=== PATIENT | male | born 1955 | race Caucasian/White ===

== ENCOUNTER 2020-01-17 17:22 | Emergency (ER) | payer MEDICARE, OTHER, SELFPAY ==
[2020-01-17 17:25] VITALS: BP 163/80; PULSE 68; RESP 18; TEMP 36.6; O2SAT 98; BMI 31.0
--- NOTE | 2020-01-17 17:40 | XR_ITS ---
PROCEDURE: XR KNEE LT 3V CLINICAL INDICATION: PAIN COMPARISON: No exams were available for comparison FINDINGS: No fracture or dislocation. No lytic or blastic change. There is normal mineralization. There are mild tricompartmental osteoarthritic changes with chondrocalcinosis and generalized vascular calcification. Surgical clips are present at the medial thigh. Calcification noted along the dorsal aspect of the distal femur at the femoral condyle region Other findings:None. IMPRESSION: Osteoarthritis with chondrocalcinosis Dictated by: Evaristo Nam MD 01/18/2020 07:16 Evaristo Nam MD in [place] 01/18/2020 07:16
--- NOTE | 2020-01-17 17:41 | XR_ITS ---
PROCEDURE: XR HIP LT 2-3V W/PELVIS CLINICAL INDICATION: PAIN Pain COMPARISON: No exams were available for comparison FINDINGS: There is a total right hip prosthesis present in the left hip hemiarthroplasty both appear to be in good alignment. Surgical clips are present in the left inguinal region. Vascular calcifications are present on the. There are vas deferens calcifications and nonspecific soft tissue calcifications bilaterally. IMPRESSION: No acute findings. Dictated by: Evaristo Nam MD 01/18/2020 07:20 Evaristo Nam MD in [place] 01/18/2020 07:20
--- NOTE | 2020-01-17 18:22 | PC.NURSE ---
Patient returning from radiology
--- NOTE | 2020-01-17 18:44 | HMH.EDGENADL ---
ED Disposition Clinical Impression: Left knee sprain Qualifiers: Encounter type: initial encounter Involved ligament of knee: lateral collateral ligament Qualified Code(s): S83.422A - Sprain of lateral collateral ligament of left knee, initial encounter Strain of left hip Qualifiers: Encounter type: initial encounter Qualified Code(s): S76.012A - Strain of muscle, fascia and tendon of left hip, initial encounter Disposition: Home, Self-Care Condition on Discharge: Good Instructions: DI for Knee Sprain, How to Use a Knee Immobilizer Additional Instructions: Use your cane and the knee immobilizer that was provided. Use Tylenol 3 that you have at home for pain. Icing, and elevating your knee will also help with pain and swelling. You may see Dr. Torres, orthopedics, for follow-up of your knee injury. Alternatively, you can also see your orthopedist in [place] for that injury. You should see orthopedist in [place] for eventual revision of your left hip replacement. Referrals: PCP,No [Primary Care Provider] - Evangelina Carter MD [Physician] - - Critical Care Critical Care Time: No Attestation: On 01/17/20, the high probability of a clinically significant, sudden or life threatening deterioration of the following system(s) required my full and direct attention, intervention and personal management. The time I documented below is in addition to time spent performing reported procedures but includes the following listed in this critical care notation. Medical Decision Making - Herman Inquiry Pt receiving controlled substance: No Vital Signs: 01/17/20 17:25 Temperature 98 F Temperature Source Oral Pulse Rate [Radial] 68 Respiratory Rate 18 Blood Pressure [Right Arm] 163/80 H Blood Pressure Mean [Right Arm] 107 Blood Pressure Position [Right Arm] Sitting 02 Sat by Pulse Oximetry 98 Oxygen Delivery Method Room Air Orders (Tests/Meds): ORDERS Category Date Time Status Hip XR left minimum 2 views [XR hip LT 2-3V w/pelvis] Exams 01/17/20 17:41 Taken Stat Knee XR left 3 views [XR knee LT 3V] Stat Exams 01/17/20 17:40 Taken - Radiology Data #1 Image(s): Hip, Knee Image Reviewed: Yes I reviewed the patient's radiology image Knee x-ray : Calcification of the menisci left knee with calcification of the soft tissues, no evident fracture, dislocation, or effusion. Hip x-ray: Bilateral hip prostheses. No evident fracture or dislocation or loosening. - Physician Consults Physician Consulted: Dr. Carter Time: 19:00 Reason -: Orthopedic Eval/Care Comment/Response: She reviewed his x-rays. No acute process. She says she can see him in follow-up for his knee injury, but she is not an expert in hip prosthesis revisions and therefore he should follow-up with his orthopedic doctor in [place] for his revision. Medical Decision Narrative: Patient drove himself to the emergency department. Declines pain medication which would require that he get a ride home. He cannot take NSAIDs because of kidney problems. He has Tylenol 3 at home to take. He says he will use that. He will be placed in a knee immobilizer for comfort. General Adult HPI - General Chief complaint: PAIN Stated complaint: pain left knee,and both hips Time Seen by Provider: 01/17/20 18:44 Mode of Arrival: Ambulatory Limitations: No Limitations Description of Symptoms (Recalled from ER Triage Doc. by RN): to ed per pvt car with c/o lt knee and lt hip pain pt states he was outside going to move some dirt, stepped on the shovel and felt a pop lt knee. c/o increasing pain. 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 States that he was using a shovel today and when he used his left leg to push on a shovel he felt a pop in his left knee. He now has pain bilaterally in the knee and posteriorly but more lateral than anywhere
[2020-01-17 19:20] VITALS: BP 152/78; PULSE 71; RESP 18; TEMP 36.6; O2SAT 99
== END 2020-01-17 19:22 | disposition home or self-care (01) ==
PROVIDERS: Emergency Provider Emergency Medicine
DX: S83.422A Sprain of lateral collateral ligament of left knee, initial encounter (principal); S76.012A Strain of muscle, fascia and tendon of left hip, initial encounter; X50.0XXA Overexertion from strenuous movement or load, initial encounter; Y92.89 Other specified places as the place of occurrence of the external cause; E10.9 Type 1 diabetes mellitus without complications; Z79.899 Other long term (current) drug therapy; Z96.641 Presence of right artificial hip joint; Z96.642 Presence of left artificial hip joint; Z96.651 Presence of right artificial knee joint
CPT/HCPCS: 29505; 73502; 73562; 99282

== ENCOUNTER → 2020-02-04 08:44 | Outpatient (CLI) | payer MEDICARE, OTHER, SELFPAY ==
--- NOTE | 2020-02-04 09:03 | XR_ITS ---
PROCEDURE: XR KNEE LT 4V CLINICAL INDICATION: Left knee pain COMPARISON: No exams were available for comparison FINDINGS: No fracture or dislocation. No lytic or blastic change. There is normal mineralization. Narrowing medially and mild spurring the tibial spines. There is calcification of the medial and lateral meniscus. The patella is intact and I see no definite effusion. There are surgical clips mid medial thigh. IMPRESSION: Mild degenerative changes along with chondrocalcinosis of both the medial and lateral meniscus. Dictated by: Dr. Fito Alvarez MD 02/04/2020 09:34 Dr. Fito Alvarez MD in [place] 02/04/2020 09:34
== END ==
PROVIDERS: PCP Family Medicine; Visit Provider Orthopaedic Surgery
DX: M25.562 Pain in left knee (principal)
CPT/HCPCS: 73564

== ENCOUNTER 2020-03-09 13:21 | Emergency (ER) | payer MEDICARE, OTHER, SELFPAY ==
[2020-03-09 13:23] VITALS: BP 144/66; PULSE 84; RESP 16; TEMP 36.8; O2SAT 98; BMI 31.0
--- NOTE | 2020-03-09 13:47 | XR_ITS ---
PROCEDURE: XR FOOT RT MIN 3V xR ANKLE RT MIN 3V The Referring Doctor: De Hinkle Patient Age:64Y CLINICAL INDICATION: fall patient fell last night with right foot and ankle pain Diabetic. Insulin pump COMPARISON: CR XR ANKLE RT MIN 3V from 03/09/2020 TECHNIQUE: 3 View AP, Oblique, Lateral of both right ankle and right foot-nonweightbearing FINDINGS: ...Right ankle 3 view.: No fracture or dislocation at the ankle. There is prominent soft tissue swelling.. About both the entire ankle overlying both medial and lateral malleolus as well as edema is seen in the subcutaneous tissues of the lower most calf but the edema extends from the ankle throughout the foot. Diffuse small vessel calcifications at ankle compatible with diabetes. . The ankle mortise is well-maintained joint space maintained with talar dome intact. .. Right foot 3 view.: Severe hallux valgus deformity at right foot with prominent valgus tilt of great toe great toe as well as prominent lateral subluxation and offset of the proximal phalanx great toe versus the head of 1st metatarsal. Tiny subchondral cyst possible minor erosive focus medial base proximal phalanx. Mild deformity shaft 2nd metatarsal from old healed fracture the. Diminishing valgus tilt of the 2nd 3rd and 4th the the toes the also noted.. The Narrowing sclerotic changes and subchondral cystic changes are seen at the tarsal-metatarsal joints particularly 2nd, but also 3rd, and 4th. May reflect developing neuropathic foot changes. Pes planus noted on lateral view. A. the the the the the talar navicular articulation satisfactory. IMPRESSION: No acute fracture or dislocation at the right foot nor ankle . Severe hallux valgus deformity right foot., old healed fracture 2nd metatarsal. . Suspect developing neuropathic joint changes noting prominent arthritic changes developing at second tarsal-metatarsal joint Less pronounced arthritic changes at 3rd and 4th tarsal-metatarsal joint . Small vessel calcification reflecting diabetes as well Prominent diffuse soft tissue swelling about ankle and extending throughout foot, along with sq edematous changes throughout the lower leg-. Dictated by: Pradip Hatfield MD 03/12/2020 12:57 Pradip Hatfield MD in [place] 03/12/2020 12:57
--- NOTE | 2020-03-09 13:47 | XR_ITS ---
PROCEDURE: XR SHOULDER RT MIN 2V Referring Doctor: De Hinkle Patient Age:64Y CLINICAL INDICATION: fall Patient fell last night right shoulder pain patient COMPARISON: No exams were available for comparison FINDINGS: Right shoulder-3 three view: AP internal external rotation with Y-view but no acute fracture or dislocation. The glenohumeral joint intact with mild degenerative changes. Minor hypertrophic lipping about margin of acetabulum and to less degree humeral head noted. The right AC joint is intact. Scapula intact. Humeral head and neck intact. Bones well mineralized but apices lungs are clear. Right clavicle unremarkable. But the mild sclerotic changes at the junction of greater tuberosity and superior humeral head may reflect the history of impingement. With this note slight modest subacromial space thus cannot not exclude rotator cuff abnormalities on plain film IMPRESSION: No acute findings, at right shoulder.. No fracture or dislocation Dictated by: Pradip Hatfield MD 03/09/2020 14:58 Pradip Hatfield MD in [place] 03/09/2020 14:58
[2020-03-09 13:55] VITALS: BP 139/76; PULSE 87; RESP 18; O2SAT 96
--- NOTE | 2020-03-09 14:18 | HMH.EDGENADL ---
ED Disposition Clinical Impression: Right ankle sprain Qualifiers: Encounter type: initial encounter Involved ligament of ankle: unspecified ligament Qualified Code(s): S93.401A - Sprain of unspecified ligament of right ankle, initial encounter Right shoulder strain Qualifiers: Encounter type: initial encounter Qualified Code(s): S46.911A - Strain of unspecified muscle, fascia and tendon at shoulder and upper arm level, right arm, initial encounter Disposition: Home, Self-Care Condition on Discharge: Good Instructions: DI for Ankle Sprain, DI for Shoulder Sprain Additional Instructions: Wear orthopedic boot. Use walker as needed. Ice and elevation of right ankle for swelling and pain. Callao as needed for pain. Do not take Tylenol 3 while taking Callao. Follow-up with Dr. Carter in the office this week, call tomorrow to make appointment. Additional instructions for CONTROLLED SUBSTANCES: You have been prescribed a medication that is a controlled substance. Controlled substances include pain medications known as opiates and sedative nerve medications known as benzodiazepines. Tramadol, fioricet, and gabapentin are also controlled substances. Some common opiates include: Codeine (such as Tylenol #3) Hydrocodone (Vicodin, Lortab, Lorcet, Callao) Oxycodone (Percocet, Percodan, Oxycodone, Oxy IR) Some common benzodiazepines include: Diazepam (Valium) Lorazepam (Ativan) Alprazolam (Xanax) Clonazepam (Klonopin) Oxazepam (Serax) All of these controlled substances are highly addictive and frequently abused. Misuse can and frequently does lead to addiction as well as overdose and . Medication should be stored in a locked cabinet or other secure storage unit. Do not store the medication in a motor vehicle. Short term supplies, 3 days or less, are prescribed because of the highly addictive nature of the medication. Any of the controlled substance medication NOT taken should be disposed of properly and NOT SAVED. The recommended method of disposing of unused medications is: Place the medicines in a sealable plastic bag. If the medicine is a solid, crush it or add water to dissolve it. Add something undesirable (cat litter, coffee grounds, etc.) Dispose of sealed bag in household trash Do not flush or pour unused medicines down a sink or drain. Controlled substances should not be shared, given away or sold. Because of the addictive nature and frequent abuse, these medications are sometimes stolen. These medications should be kept in a safe place where they cannot be stolen. Do not keep them in your car or purse. Lost or stolen prescriptions for controlled substances WILL NOT BE REFILLED in this emergency department, regardless of whether a police report was filed. Prescriptions: Hydrocod/Acet 5/325 mg [Callao 5/325mg tablet] 1 tab PO Q6HP PRN #10 tab PRN Reason: Pain Transmission Status: Sent to [facility] #[id number] Referrals: Yehuda Barger MD [Primary Care Provider] - - Critical Care Critical Care Time: No Attestation: On 03/09/20, the high probability of a clinically significant, sudden or life threatening deterioration of the following system(s) required my full and direct attention, intervention and personal management. The time I documented below is in addition to time spent performing reported procedures but includes the following listed in this critical care notation. Medical Decision Making - Herman Inquiry Pt receiving controlled substance: Yes Herman was queried for this patient: Yes Reference #:: [id number] Risks and benefits of using a controlled substance: were discussed with pt by me Comment: 6 rxs. last rx gabapentin Vital Signs: 03/09/20 13:23 03/09/20 13:55 03/09/20 14:41 Temperature 98.2 F 98 F Temperature Source Oral Oral Pulse Rate 84 Pulse Rate [Right] 84 87 Respiratory Rate 16 18 16 Blood Pressure 111/65 Blood Pressure [Right Arm] 144/6
[2020-03-09 14:41] VITALS: BP 111/65; PULSE 84; RESP 16; TEMP 36.6; O2SAT 98
== END 2020-03-09 14:50 | disposition home or self-care (01) ==
PROVIDERS: Emergency Provider Emergency Medicine; PCP Family Medicine
DX: S93.401A Sprain of unspecified ligament of right ankle, initial encounter (principal); S46.911A Strain of unspecified muscle, fascia and tendon at shoulder and upper arm level, right arm, initial encounter; W01.0XXA Fall on same level from slipping, tripping and stumbling without subsequent striking against object, initial encounter; Y92.018 Other place in single-family (private) house as the place of occurrence of the external cause; J44.9 Chronic obstructive pulmonary disease, unspecified; I25.10 Atherosclerotic heart disease of native coronary artery without angina pectoris; E10.9 Type 1 diabetes mellitus without complications; I10 Essential (primary) hypertension; Z91.048 Other nonmedicinal substance allergy status; Z96.641 Presence of right artificial hip joint; Z96.642 Presence of left artificial hip joint
CPT/HCPCS: 29515; 73030; 73610; 73630; 99283

== ENCOUNTER 2020-03-14 09:47 | Emergency (ER) | payer MEDICARE, OTHER, SELFPAY ==
[2020-03-14 10:05] VITALS: BP 130/80; PULSE 101; RESP 99; TEMP 36.4; O2SAT 99; BMI 30.8
--- NOTE | 2020-03-14 10:21 | CA_ITS ---
APPROVED REPORT Right Lower Extremity Venous Study for DVT. Spot Remover: BERTHA PaulsonT Indications Lower Extremity Pain: Right Lower Extremity Edema: Right SWELLING,Pt fell last Sat bruising RLE Risk Factors Trauma Medications Pt on Plavix Vein Imaging CFV (R): compressive, spontaneous, phasic, augmentation FEM (R): compressive, spontaneous, phasic, augmentation POP (R): compressive, spontaneous, phasic, augmentation PTV (R): Compressible GSV (R): Compressible Peroneals (R):Compressible GAS (R): Compressible Findings Study suggests no evidence of DVT of the right lower extremity. Study suggests no evidence of SVT of the right lower extremity. Conclusion Study suggests no evidence of DVT of the right lower extremity. Study suggests no evidence of SVT of the right lower extremity. Critical Notification Physician Notified Date: 03/14/2020 Time: 10:59 Physician Name: Taye Wisdom Electronically signed by : Evaristo Nam MD 03/14/2020 16:42:27
--- NOTE | 2020-03-14 10:22 | HMH.EDUTC ---
[facility] [place]ression: Lower leg pain Qualifiers: Laterality: right Qualified Code(s): M79.661 - Pain in right lower leg Cellulitis Qualifiers: Site of cellulitis: extremity Site of cellulitis of extremity: lower extremity Laterality: right Qualified Code(s): L03.115 - Cellulitis of right lower limb Disposition: Home, Self-Care Condition on Discharge: Good Instructions: How To Perform RICE (Rest, Ice, Compress, Elevate), How to Use a Walking Boot Additional Instructions: *weight bearing as tolerated *RICE, Rest the extremity, Ice 15-20 minutes 3-4 times daily, Compress- wear the justin wrap as discussed as much as possible to help reduce swelling and pain, Elevate the extremity when at rest *Justin wrap and wear walking boot it is for support and help control swelling, use it except in the shower. Be sure that is not to tight but not to loose either *Elevate when resting *Ibuprofen every 6-8 hours as needed for pain an inflammation. If need something more can take Tylenol in between doses of Ibuprofen to help Immediately follow up with your family doctor for new or worsening of symptoms, or no noticeable improvement over the next 3-5 days Keep appointment with Dr Andersen Follow up with your Family Doctor as needed Return if needed Straight to ER if any life threatening sympotms Prescriptions: cephALEXin [cephALEXin 500mg capsule*] 500 mg PO QID 7 Days #28 cap Transmission Status: Received by [facility] #[id number] Referrals: Yehuda Barger MD [Primary Care Provider] - As needed Harriett Andersen DPM [Staff Physician] - Time of Disposition: 11:00 Medical Decision Making - Herman Inquiry Pt receiving controlled substance: No Herman was queried for this patient: No Vital Signs: 03/14/20 10:05 03/14/20 10:59 Temperature 97.5 F L 97.9 F Temperature Source Tympanic Oral Pulse Rate 79 Pulse Rate [Right] 101 H Respiratory Rate 99 H 14 Blood Pressure 131/77 Blood Pressure [Right Arm] 130/80 Blood Pressure Mean [Right Arm] 96 Blood Pressure Source Automatic Cuff Blood Pressure Source [Right Arm] Automatic Cuff Blood Pressure Position Sitting Blood Pressure Position [Right Arm] Sitting 02 Sat by Pulse Oximetry 99 Oxygen Delivery Method Room Air Room Air - US Data US Images: Lower Extremity ED US Reviewed: Yes: I have reviewed the patient's US results Preliminary Findings: Normal/NAD Findings Narrative: Discussed with Vascular Negative Venous Doppler Medical Decision Narrative: Patient states that he has taken Keflex in the past without complications or reactions [facility] [place] - General Stated complaint: Right leg & ankle pain Time Seen by Provider: 03/14/20 10:22 Mode of Arrival: Ambulatory Source of Information: Patient Limitations: No Limitations Description of Symptoms (Recalled from Triage Doc. by RN): pt fell on ice last tuesday. his right leg is sore, swollen and bruised. right ankle is sore, red and warm to the touch. HEENT Symptoms (Recalled from RN notes): No Resp Symptoms (Recalled from RN notes): No Skin Symptoms (Recalled from RN notes): No MS Symptoms (Recalled from RN notes): Yes (bruising and swelling to right leg below the need down to toes.) Functional Status (Recalled from RN notes): na - History of Present Illness Provider Complaint: Patient states that he fell on Tuesday and was seen in the ED State that he was placed in a boot but has not been able to wear it States that he noticed he was having some worsening of swelling in his right lower leg and noticed it was looking red and warm to the touch States that family was worried that he may have DVT - Related Data Home Medications Medication Instructions Recorded Confirmed Aspirin [Aspirin 325mg Tab] 325 mg PO DAILY 04/26/19 04/26/19 Clopidogrel Bisulfate [Plavix 75mg 75 mg PO DAILY 04/26/19 04/26/19 Tab] Colchicine 0.6 mg PO DAILY 04/26/19 04/26/19 Duloxetine HCl [Drizalma Sprinkle] 30 mg PO DAILY
[2020-03-14 10:59] VITALS: BP 131/77; PULSE 79; RESP 14; TEMP 36.6
--- NOTE | 2020-03-14 20:41 | PC.NURSE ---
Voicemail left for patient that Rx for antibiotics was called into [facility]
== END 2020-03-14 11:02 | disposition home or self-care (01) ==
PROVIDERS: Emergency Provider Nurse Practitioner; PCP Family Medicine
DX: M79.661 Pain in right lower leg (principal); L03.115 Cellulitis of right lower limb; Z91.048 Other nonmedicinal substance allergy status; J44.9 Chronic obstructive pulmonary disease, unspecified; I25.10 Atherosclerotic heart disease of native coronary artery without angina pectoris; E10.9 Type 1 diabetes mellitus without complications; I10 Essential (primary) hypertension; Z96.641 Presence of right artificial hip joint; Z96.642 Presence of left artificial hip joint
CPT/HCPCS: G0463; 93971; 99202

== ENCOUNTER → 2020-03-21 09:59 | Outpatient (CLI) | payer MEDICARE, OTHER, SELFPAY ==
--- NOTE | 2020-03-21 10:04 | XR_ITS ---
PROCEDURE: XR SHOULDER RT MIN 2V CLINICAL INDICATION: Rt shoulder pain COMPARISON: CR XR SHOULDER RT MIN 2V from 03/09/2020 FINDINGS: . There is narrowing and mild sclerosis of the AC joint. There is a slightly lateral downsloping acromion process but there is no significant subacromial stenosis. There likely is a small subchondral cyst near the greater tuberosity. There are no soft tissue calcifications. IMPRESSION: Mild degenerate change of the AC joint Dictated by: Dr. Fito Alvarez MD 03/21/2020 10:58 Dr. Fito Alvarez MD in [place] 03/21/2020 10:58
== END ==
PROVIDERS: PCP Family Medicine; Visit Provider Orthopaedic Surgery
DX: M25.511 Pain in right shoulder (principal)
CPT/HCPCS: 73030

== ENCOUNTER → 2020-04-15 12:23 | Outpatient (CLI) | payer MEDICARE, OTHER, SELFPAY | PROVIDERS: PCP Family Medicine; Visit Provider Podiatrist | DX: M25.571 Pain in right ankle and joints of right foot (principal) ==

== ENCOUNTER 2020-05-16 08:30 | Outpatient (RCR) | payer MEDICARE, OTHER, SELFPAY ==
--- NOTE | 2020-04-22 10:35 | HMH.PTOPEV ---
PT Outpatient Evaluation Rehab PT Outpatient Evaluation Start: 04/22/20 09:41 Freq: Status: Active Protocol: Document 04/22/20 10:15 [facility] (Rec: 04/22/20 10:35 PHOCHERYL [id number]) Electronically Signed By Rowdy Chris, PT 04/22/20 10:15 Outpatient Therapy Subjective History Subjective History Pt is 64 yowm who present with c/o pain in the R ankle x ~ 6 wks after slipping on ice at home. He reports initial eversion with slip, then he fell over with inversion on the ankle as well. He reports pain and swellin alexis med and lateral ankle, worse with prolonged standing. He also reports hx of multiple ankle sprains on the R previously. He had X-ray performed which was negative for fx. He has PMH of COPD, CAD, DM-I, HL, HTN, severe OA. Chief Complaint Pain,Stiff,Swelling Symptom Type Ache,Sharp Symptoms Relieved By Rest/Positioning Symptoms Aggravated By Standing,Walking Prior Functional Limitations None Current Functional Limitations Standing,Recreation Activity, Walking,Stairs Symptom Description Intermittent,Activity Dependent Level of pain today (0-10) 2 Pain scale - at its worst (0-10) 7 Ankle/Foot Eval Gait Observation General Gait Pattern Observation Antalgic Gait Palpation Tenderness right Ankle/Foot Palpation Findings Tenderness ATF TTP positive PTF TTP negative CF TTP positive Deltoid ligament TTP positive ROM Ankle/Foot Dorsiflexion w/Knee Extended 0-5 Active Range Motion (degrees) Ankle/Foot Plantar Flexion Active Range 0-33 of Motion (degrees) Ankle/Foot Eversion Active Range of 0-10 Motion (degrees) Ankle/Foot Inversion Active Range of 0-8 Motion (degrees) MMT Ankle Dorsiflexion Strength Grade 4 Good Ankle Plantarflexion Strength Grade 4 Good Foot Eversion Strength Grade 4 Good Foot Inversion Strength Grade 4 Good Special Tests Ankle Anterior Drawer Test Negative Left,Negative Right Talar Tilt Test Negative Left,Negative Right Outpatient Therapy Assessment Impairments Problems/Impairmments Palpation Tenderness,Impaired Range of Motion,Impaired Strength,Impaired Endu
== END 2020-08-20 14:46 | disposition home or self-care (01) ==
LOC: PT 08:30
PROVIDERS: PCP Family Medicine; Visit Provider Podiatrist
DX: S93.401A Sprain of unspecified ligament of right ankle, initial encounter (principal); S93.491A Sprain of other ligament of right ankle, initial encounter
CPT/HCPCS: 97014; 97016; 97035; 97110; 97112; 97163; 97530; 97760; G0283

== ENCOUNTER → 2020-05-23 10:08 | Outpatient (CLI) | payer MEDICARE, OTHER, SELFPAY ==
--- NOTE | 2020-05-23 10:13 | XR_ITS ---
PROCEDURE: XR LUMBAR SPINE 2-3V CLINICAL INDICATION: low back pain COMPARISON: No exams were available for comparison FINDINGS: Minimal lumbar curvature convex left. Degenerative disc disease is present at L1-L2 L3-L4 and L4-5. There is 8 mm anterolisthesis of L4 on L5. Facet sclerotic changes are present at L4-5 and L5-S1 and L3-L4.. No acute fracture or dislocation. Incidental note made of diffuse calcification of the aorto iliac vessels. There is a total right hip prosthesis in the left hip hemiarthroplasty. There is a moderate amount of retained colonic feces. Other findings:None. IMPRESSION: Degenerative changes, no acute finding. Dictated by: Evaristo Nam MD 05/23/2020 10:35 Evaristo Nam MD in [place] 05/23/2020 10:35
== END ==
PROVIDERS: PCP Family Medicine; Visit Provider Orthopaedic Surgery
DX: M54.5 Low back pain (principal)
CPT/HCPCS: 72100

== ENCOUNTER 2020-06-21 14:42 | Emergency (ER) | payer MEDICARE, OTHER, SELFPAY ==
--- NOTE | 2020-06-21 14:48 | XR_ITS ---
PROCEDURE INFORMATION: Exam: XR Right Knee Exam date and time: 06/21/2020 2:48 PM Age: 64 years old Clinical indication: Injury or trauma; Fall; Laceration; Patella or knee; Right; Without foreign body; Prior surgery; Surgery date: 6+ months; Surgery type: Tka TECHNIQUE: Imaging protocol: XR Right knee. Views: 3 views. COMPARISON: CA VENOUS DOPPLER LE RT 03/14/2020 10:36 AM FINDINGS: Bones/joints: Cemented right total knee arthroplasty in place, without evidence of acute complications. No acute fracture or dislocation. Soft tissues: Normal. Vasculature: Atherosclerotic vascular disease. IMPRESSION: No acute fracture or dislocation.
[2020-06-21 14:54] VITALS: BP 115/77; PULSE 74; RESP 14; TEMP 36.6; O2SAT 100; BMI 31.7
--- NOTE | 2020-06-21 15:03 | HMH.EDUTC ---
[facility] [place] Disposition Clinical Impression: Laceration of knee Qualifiers: Encounter type: initial encounter Laterality: right Qualified Code(s): S81.011A - Laceration without foreign body, right knee, initial encounter Disposition: Home, Self-Care Condition on Discharge: Good Instructions: Laceration Repair, DI for Laceration Repair -- Simple Additional Instructions: Suture instructions: You have required stitches today. Please read the following instructions so you know how to care for them: 1. Keep wound area dry for the first 24 hours. 2 May clean gently with mild soap and water, after 48 hours to prevent crusting over suture knots. 3. You may shower if your provider gives permission but do not take a bath until the skin is healed.. 4. Never leave a wet dressing or Band-Aid on your stitches as this allows bacteria to reach the area and may cause infection. Band-aids can cause the wound to sweat and not recommended to wear for long periods of time Watch for signs of infection: Increasing redness, tenderness or warmth around the suture site Unusual swelling around the site Appearance of pus around each suture or any red streaks Fever If you develop any of the above signs or symptoms of infection, Follow up with Family Physician immediately 5. Suture removal in _10-12___days 6. Return to [facility] or follow up with family doctor for removal. This can be done by any medical provider during regular hours on Tuesday through Tuesday, by appointment. Velcro wrist splint to right wrist If you are still having pain on Tuesday in right wrist call orthopedic office and make appointment with Dr Garnica Follow up with your Family Doctor if no pain in wrist for further evaluation and CT scan if needed Return if needed Referrals: Hema Garnica MD [Staff Physician] - (call for appointment on Tuesday if still having pain in right wrist) Yehuda Barger MD [Primary Care Provider] - As needed (Follow up for pain in wrist ) Time of Disposition: 17:10 Medical Decision Making - Herman Inquiry Pt receiving controlled substance: No Herman was queried for this patient: No Vital Signs: 06/21/20 14:54 06/21/20 17:22 Temperature 97.8 F 98 F Temperature Source Tympanic Pulse Rate 79 Pulse Rate [Right] 74 Respiratory Rate 14 18 Blood Pressure 117/78 Blood Pressure [Right Arm] 115/77 Blood Pressure Mean [Right Arm] 89 Blood Pressure Source [Right Arm] Automatic Cuff Blood Pressure Position [Right Arm] Sitting 02 Sat by Pulse Oximetry 100 Oxygen Delivery Method Room Air Room Air - Radiology Data #1 Image(s): Knee Image Reviewed: Yes I have reviewed radiologist's interpretation IMPRESSION: No acute fracture or dislocation. #2 Image(s): Wrist Image Reviewed: Yes I have reviewed radiologist's interpretation IMPRESSION: 1. Abnormal relationship of the trapezium, scaphoid, and 1st metacarpal, with the trapezium appearing located or distal and palmar than normal, possibly trapezium dislocation. Recommend further evaluation with CT. 2. No acute fracture. - Physician Consults Physician Consulted: Dr Garnica Time: 16:38 Reason -: Orthopedic Eval/Care Comment/Response: Spoke with Dr Garnica and he viewed xray and patient has history of arthritits Advised to place patient in velcro wrist splint and call office on Tuesday if still having pain for appointment or follow up with PCP if no pain Medical Decision Narrative: Patient states that he is currently taking augmentin patient advised to continue as prescribed [facility] [place] HPI - General Stated complaint: ao 06/21/20 @ 1400 lac on Rt knee Time Seen by Provider: 06/21/20 15:03 Mode of Arrival: Ambulatory Source of Information: Patient Limitations: No Limitations Description of Symptoms (Recalled from Triage Doc. by RN): pt was mowing and he got off to move a branch. once off the mower he stepped in a hole and fell. possible hitting his R knee on a rock. he has a lac on the R knee.
--- NOTE | 2020-06-21 15:36 | XR_ITS ---
PROCEDURE INFORMATION: Exam: XR Right Wrist Exam date and time: 06/21/2020 3:36 PM Age: 64 years old Clinical indication: Injury or trauma; Fall; Blunt trauma (contusions or hematomas); Wrist; Right TECHNIQUE: Imaging protocol: XR Right wrist. Views: 3 or more views. COMPARISON: No relevant prior studies available. FINDINGS: Bones/joints: Mild degenerative changes of the radiocarpal joint, manifest by joint space narrowing and minimal osteophyte formation. Degenerative changes of the triscaphe joint. Abnormal relationship of the trapezium, scaphoid, and 1st metacarpal, with the trapezium appearing located or distal and palmar than normal, possibly trapezium dislocation. No acute fracture. Soft tissues: Normal. Vasculature: Atherosclerotic vascular disease. IMPRESSION: 1. Abnormal relationship of the trapezium, scaphoid, and 1st metacarpal, with the trapezium appearing located or distal and palmar than normal, possibly trapezium dislocation. Recommend further evaluation with CT. 2. No acute fracture.
[2020-06-21 17:22] VITALS: BP 117/78; PULSE 79; RESP 18; TEMP 36.6; O2SAT 100
== END 2020-06-21 17:22 | disposition home or self-care (01) ==
PROVIDERS: Emergency Provider Nurse Practitioner; PCP Family Medicine
DX: S81.011A Laceration without foreign body, right knee, initial encounter (principal); S63.501A Unspecified sprain of right wrist, initial encounter; W17.2XXA Fall into hole, initial encounter; Y92.017 Garden or yard in single-family (private) house as the place of occurrence of the external cause; Z96.641 Presence of right artificial hip joint; Z96.642 Presence of left artificial hip joint; E10.9 Type 1 diabetes mellitus without complications; J44.9 Chronic obstructive pulmonary disease, unspecified; I25.10 Atherosclerotic heart disease of native coronary artery without angina pectoris; I10 Essential (primary) hypertension; E03.9 Hypothyroidism, unspecified; E78.5 Hyperlipidemia, unspecified
CPT/HCPCS: 12002; 29125; G0463; 73110; 73562; 99202

== ENCOUNTER → 2020-06-23 15:34 | Outpatient (CLI) | payer MEDICARE, OTHER, SELFPAY ==
--- NOTE | 2020-06-23 15:41 | XR_ITS ---
PROCEDURE: XR WRIST LT MIN 3V CLINICAL INDICATION: left wrist pain COMPARISON: CR XR WRIST RT MIN 3V from 06/21/2020 FINDINGS: No fracture or dislocation. No lytic or blastic change. There is normal mineralization. There are mild osteoarthritic changes at the radiocarpal joint. Mild osteoarthritis also at the radial ulnar joint with chondrocalcinosis noted of the triangular fibrocartilage. Small cystic areas present in the trapezium and in the capitate. Metallic clips are present at the distal radius and there is diffuse vascular calcification. Other findings:None. IMPRESSION: Degenerative changes as described. Dictated by: Evaristo Nam MD 06/23/2020 16:45 Evaristo Nam MD in [place] 06/23/2020 16:45
== END ==
PROVIDERS: PCP Family Medicine; Visit Provider Orthopaedic Surgery
DX: M25.532 Pain in left wrist (principal)
CPT/HCPCS: 73110

== ENCOUNTER 2020-06-24 09:00 | Outpatient (RCR) | payer MEDICARE, OTHER, SELFPAY ==
--- NOTE | 2020-05-28 10:37 | HMH.PTOPEV ---
PT Outpatient Evaluation Rehab PT Outpatient Evaluation Start: 05/28/20 10:19 Freq: Status: Active Protocol: Document 05/28/20 10:20 [facility] (Rec: 05/28/20 10:35 PHOCHERYL [id number]) Electronically Signed By Rowdy Chris, PT 05/28/20 10:20 Outpatient Therapy Subjective History Subjective History Pt is 64 yowm who presents with c/o chronic low back pain x ~ 15 yrs, gradually worse over time. He reports havign an MRI many years ago which showed DDD, stenosis, and arthritis. He reports susanne pain that is fairly constant with intermittent sharp pains. No c/o pain or numbness in the legs B. He has hx of DM-I with insulin pump, CAD with CABG x 5v and stents x 3v, CKD , B JACQUE, R TKA. Chief Complaint Pain,Stiff Symptom Type Ache,Sharp Symptoms Relieved By Heat Symptoms Aggravated By Bending/Stooping,Physical Activity Prior Functional Limitations None Current Functional Limitations Driving,Sleeping,Standing, Recreation Activity,Walking, Bending/Stooping Symptom Description Constant but Variable Level of pain today (0-10) 5 Pain scale - at its worst (0-10) 8 Lumbopelvic Eval Posture Lumbar Spine Posture Standing Position Decreased Lordosis Palapation tenderness bilateral lumbar spinal tenderness Yes paraspinal tenderness Yes buttock tenderness Yes Lumbar/Sacral Palpation Findings Tenderness Accessory Movement L-spine Vertebrae Accessory Movements Central P/A Cl[place] that Elicit Symptoms L2 bilateral L3 bilateral L4 bilateral L5 bilateral S1 bilateral Range of Motion Lumbar Spine Active Flexion Range of 0-40 Motion (degrees) Lumbar Spine Active Extension Range of 0-3 Motion (degrees) Left Lumbar Spine Lateral Flexion Active 0-10 Range of Motion (degrees) Right Lumbar Spine Lateral Flexion 0-5 Active Range of Motion (degrees) Manual Muscle Test Bilateral Knee Extension Strength Grade 5 Normal Knee Flexion Strength Grade 5 Normal Hip Flexion Strength Grade 3+ Fair+ Hip Abduction Strength Grade 4 Good Hip Adduction Strength Grade 5 Normal Extensor Hallucis Longus Strength Grade 5 Norm
== END 2020-06-24 09:05 | disposition home or self-care (01) ==
LOC: PT 09:00
PROVIDERS: PCP Family Medicine; Visit Provider Orthopaedic Surgery
DX: M54.5 Low back pain (principal); M51.36 Other intervertebral disc degeneration, lumbar region
CPT/HCPCS: 97010; 97014; 97110; 97163; G0283

== ENCOUNTER 2020-06-24 10:59 | Outpatient (RCR) | payer MEDICARE, OTHER, SELFPAY | END 2020-06-24 11:37 | disposition home or self-care (01) | LOC: OT 10:59 | PROVIDERS: Visit Provider Orthopaedic Surgery | DX: G56.03 Carpal tunnel syndrome, bilateral upper limbs (principal) | CPT/HCPCS: 97763 ==

== ENCOUNTER 2020-07-03 09:00 | Outpatient (RCR) | payer MEDICARE, OTHER, SELFPAY ==
--- NOTE | 2020-05-13 10:13 | HMH.PTOPEV ---
PT Outpatient Evaluation Rehab PT Outpatient Evaluation Start: 05/13/20 08:57 Freq: Status: Active Protocol: Document 05/13/20 10:01 [facility] (Rec: 05/13/20 10:13 [facility] [id number]) Electronically Signed By Rowdy Chris, PT 05/13/20 10:01 Outpatient Therapy Subjective History Subjective History Pt is 64 yowm who presents with c/o pain in the R shld x ~ 3 mos after a groubd level fall at home. He had X-ray performed which shows OA and he had steroid injection which significantly reduced his symptoms. He continues to reports pain in the shld worse with activity, no numbness or tingling. Chief Complaint Pain,Stiff Symptom Type Ache,Sharp Symptoms Relieved By Rest/Positioning Symptoms Aggravated By Physical Activity,Lifting Prior Functional Limitations None Current Functional Limitations Reaching,Lifting Symptom Description Intermittent,Activity Dependent Level of pain today (0-10) 2 Pain scale - at its worst (0-10) 10 Shoulder/Elbow Eval Shoulder Objective Measurements Palpation Tenderness tenderness shoulder exam standard right tenderness over the bicipital tendon right shoulder exam standard tenderness over the SA bursa shoulder right exam standard Shoulder ROM Right Shoulder Abduction Active Range of 0-125 Motion (degrees) Shoulder Abduction Passive Range of 0-155 Motion (degrees) Shoulder Flexion Active Range of Motion 0-132 (degrees) Query Text: Shoulder Flexion Passive Range of Motion 0-155 (degrees) Shoulder External Rotation Active Range 0-67 of Motion (degrees) Shoulder External Rotation Passive Range 0-75 of Motion (degrees) Shoulder Internal Rotation Active Range 0-60 of Motion (degrees) Shoulder Internal Rotation Passive Range 0-64 of Motion (degrees) Shoulder MMT Shoulder Abduction Strength Grade 4 Good Shoulder Flexion Strength Grade 4 Good Shoulder External Rotation Strength 4 Good Grade Shoulder Internal Rotation Strength 4 Good Grade Elbow Objective Measurements Outpatient Therapy Assessment Impairments Problems/Impairmments Palpation Tenderness,Impaired Range of Motion,Impaired Strength,Impaired Endurance, Impaired Lifting,Subjective C/
--- NOTE | 2020-06-13 10:12 | HMH.RHREAS ---
Rehab Reassessment Rehab OP Re-assessment Start: 06/13/20 10:00 Freq: Status: Active Protocol: Document 06/13/20 10:02 [facility]A (Rec: 06/13/20 10:07 [facility]A [id number]) Electronically Signed By Rowdy Chris, PT 06/13/20 10:02 Rehab Re-assessment Subjective Subjective Pt continues to reports pain in the R shld, worse with activity. Objective Objective Notes Palpation tenderness: R ant shld 2/4. MMT R SHLD: grossly 4/5 throughout. ROM R SHLD: Flex= 0-150, ABD= 0-140 Assessment Progress Assessment Slower Than Expected Assessment Notes Pt R shld remains weaker than the L with pain worse anteriorly around LHB proximal origin. He has shown some improvement in AROM of the R shld, but little increase in strength and little decrease in pain with movement. Patient goals met none Goals Not Met ST,2,3,4,5,6 LT,2,3 ,4,5,6 Revised Goals none Plan Plan Continue per initial POC. Frequency of Therapy 2 x/wk Duration of therapy 8 wks Time and Billing Re-Eval Time 15 Re-Eval Billing Units 0 PHYSICIAN CERTIFICATION: I certify the specified therapy services for Obdulio Gold are required, authorized, and reviewed every 30 days.
== END 2020-07-03 09:05 | disposition home or self-care (01) ==
LOC: PT 09:00
PROVIDERS: PCP Family Medicine; Visit Provider Orthopaedic Surgery
DX: M19.011 Primary osteoarthritis, right shoulder (principal)
CPT/HCPCS: 97010; 97014; 97033; 97110; 97163; 97164; G0283

== ENCOUNTER 2020-07-25 09:00 | Outpatient (RCR) | payer MEDICARE, OTHER, SELFPAY | END 2020-07-25 09:05 | disposition home or self-care (01) | LOC: PT 09:00 | PROVIDERS: PCP Family Medicine; Visit Provider Family Medicine | DX: R29.6 Repeated falls (principal) | CPT/HCPCS: 97110; 97112; 97163 ==

== ENCOUNTER → 2020-07-31 12:45 | Outpatient (CLI) | payer MEDICARE, OTHER, SELFPAY ==
--- NOTE | 2020-07-31 12:45 | IR_ITS ---
PROCEDURE: IR ARTHROGRAM SHOULDER RT CLINICAL INDICATION: RT shoulder pain COMPARISON: No exams were available for comparison FINDINGS: Fluoroscopy time: 2 minutes and 1 second Following obtaining informed consent and time-out procedure under aseptic conditions and local anesthesia with 1 percent buffered lidocaine with fluoroscopic guidance, proximally 12 mL of a mixture Isovue, normal saline, and gadolinium was injected into the right shoulder without complications. Contrast was noted to go into the subacromial region consistent with a rotator cuff tear. There are osteoarthritic changes of the glenohumeral joint with a high-riding humeral head. IMPRESSION: The findings are compatible with full-thickness rotator cuff tear associated with osteoarthritic changes of the glenohumeral joint and high-riding humeral head. Please see MRI arthrogram for further discussion.. Dictated by: Evaristo Nam MD 08/04/2020 09:26 Evaristo Nam MD in [place] 08/04/2020 09:26
--- NOTE | 2020-07-31 12:45 | MR_ITS ---
PROCEDURE: MR SHOULDER RT W CON CLINICAL INDICATION: Rt shoulder pain Pt states he slipped on ice a few months ago and tried to catch himself. Limited ROM. COMPARISON: CR,RF IR ARTHROGRAM SHOULDER RT from 07/31/2020 TECHNIQUE: Routine post arthrogram images obtained. FINDINGS: Complete full-thickness tear is present involving the supraspinatus tendon. There is abnormal localization of contrast within the subacromial region. There is thickening of the infraspinatus tendon with increased T1 and T2 signal consistent with tendinopathy/tendinosis and suspected partial tear distally. Increased T2 signal involves the humeral head at the medial aspect of the greater tuberosity consistent with subchondral cystic changes. There is a high-riding humeral head. The bicipital tendon is in place. There is mild acromioclavicular hypertrophy with osteoarthritic changes noted of the glenohumeral joint. On the coronal images there is some irregularity of the glenoid labrum superiorly having a somewhat blunted appearance and minimal irregularity medially. IMPRESSION: 1. Complete tear of the supraspinatus tendon 2. Tendinopathy/tendinosis of the infraspinatus tendon with suspected partial tear distally. 3. Osteoarthritic changes of the acromioclavicular joint and glenohumeral joint with subchondral cystic changes of the humeral head and a high-riding humeral head. 4. There is some minimal fraying of the superior glenoid labrum. Dictated by: Evaristo Nam MD 08/04/2020 09:06 Evaristo Nam MD in [place] 08/04/2020 09:06
--- NOTE | 2020-07-31 12:47 | MR_ITS ---
PROCEDURE: MR LUMBAR SPINE WO CON CLINICAL INDICATION: LUMBAR RADICULOPATHY Low back pain for years. COMPARISON: CT ABDPELW/O CT ABD PELVIS W/O CONTRAST from 02/07/2016 CR XR LUMBAR SPINE 2-3V from 05/23/2020 TECHNIQUE: Standard multiplanar multiecho sequences are performed without contrast. 3-D MIP and myelographic images are also rendered and reviewed FINDINGS: The spinal cord ends at the L1 level. L1-L2: Facet and ligamentum hypertrophic change L2-L3: Facet ligamentum hypertrophy. L3-L4: Degenerative disc disease. There is severe facet and ligamentum hypertrophic change with canal stenosis and bilateral lateral recess and foraminal narrowing. L4-5: Degenerative disc disease with 5 mm anterolisthesis of L4. There is severe facet and ligamentum hypertrophy with severe bilateral lateral recess narrowing left greater than right along with severe canal stenosis. L5-S1: Degenerative disc disease with facet hypertrophic change left greater than right with moderate to severe left-sided foraminal narrowing No extruded herniated disc apparent IMPRESSION: 1. L3-L4: Degenerative disc disease. There is severe facet and ligamentum hypertrophic change with canal stenosis and bilateral lateral recess and foraminal narrowing. 2. L4-5: Degenerative disc disease with 5 mm anterolisthesis of L4. There is severe facet and ligamentum hypertrophy with severe bilateral lateral recess narrowing left greater than right along with severe canal stenosis. 3. L5-S1: Degenerative disc disease with facet hypertrophic change left greater than right with moderate to severe left-sided foraminal narrowing 4. No extruded herniated disc apparent Dictated by: Evaristo Nam MD 08/01/2020 09:59 Evaristo Nam MD in [place] 08/01/2020 09:59
== END ==
PROVIDERS: PCP Family Medicine; Visit Provider Orthopaedic Surgery
DX: S46.911A Strain of unspecified muscle, fascia and tendon at shoulder and upper arm level, right arm, initial encounter (principal); M54.16 Radiculopathy, lumbar region
CPT/HCPCS: 72148; 73040; 73222; 76376

== ENCOUNTER 2020-09-08 18:09 | Emergency (ER) | payer MEDICARE, OTHER, SELFPAY ==
[2020-09-08 19:05] VITALS: BP 129/76; PULSE 89; RESP 21; TEMP 37.3; O2SAT 97; BMI 31.7
--- NOTE | 2020-09-08 19:29 | HMH.EDUTC ---
[facility] [place] Disposition Clinical Impression: Sinusitis Qualifiers: Sinusitis location: unspecified location Chronicity: unspecified Qualified Code(s): J32.9 - Chronic sinusitis, unspecified Disposition: Home, Self-Care Condition on Discharge: Good Instructions: Sinusitis, DI for Sinusitis Additional Instructions: *Monitor Temp, Over the counter Motrin or Tylenol as directed/as needed Tylenol every 4 hours and Motrin every 6 hours (as long as your family doctor has told you that you can take it) for fever or pain. and straight to ER if unable to lower temp less than 101.0 after medication given *Warm salt water gargles may help to soothe the throat *Throat Lozenges *Warm fluids like tea with honey may help to soothe the throat *Sleep elevated *Humidifier/Vaporizer *Flonase 2 sprays in each nostril daily but be aware that it may take 2-3 days before you notice improvement Take antibiotics as prescribed Follow up IMMEDIATELY for new or worsening symptoms or no Noticeable improvement over the next 48-72 hours. 911 for difficulty breathing or swallowing You were tested for today for COVID19 your test result should be back in the next 24-48 hours, you may call to the [facility] to see if your test results are back in the next 48 hours [phone] [facility] hours are 9am-9pm You was given a handout with instructions for Self Quarantine and Self isolation for while you wait on test results and what to do if they are positive If you are positive the Health Dept will be contacting you also Prescriptions: Amoxicillin/Potassium Clav [Augmentin 875-125 Tablet] 1 tab PO Q12H 7 Days #14 tab Transmission Status: Sent to [facility] #[id number] Referrals: Elijah Serra DO [Primary Care Provider] - As needed Time of Disposition: 19:36 Medical Decision Making - Herman Inquiry Pt receiving controlled substance: No Herman was queried for this patient: No Vital Signs: 09/08/20 19:05 09/08/20 19:40 Temperature 99.2 F 99.2 F Temperature Source Oral Pulse Rate 89 Pulse Rate [Right Brachial] 89 Respiratory Rate 21 21 Blood Pressure 129/76 Blood Pressure [Right Arm] 129/76 Blood Pressure Mean [Right Arm] 93 Blood Pressure Source [Right Arm] Automatic Cuff Blood Pressure Position [Right Arm] Sitting 02 Sat by Pulse Oximetry 97 Oxygen Delivery Method Room Air Orders (Tests/Meds): ORDERS Category Date Time Status Covid-19 Nasal PCR ([facility]) Routine Lab 09/08/20 19:20 Received Medical Decision Narrative: Patient states that he has taken augmentin in the past without complications or reactions from his other medications [facility] [place] HPI - General Stated complaint: Possible kidney stone or bladder infection Time Seen by Provider: 09/08/20 19:29 Mode of Arrival: Ambulatory Source of Information: Patient Limitations: No Limitations Description of Symptoms (Recalled from Triage Doc. by RN): PATIENT C/O FEVER, EYE PRESSURE, AND POSSIBLE KIDNEY/BLADDER INFECTION X 2 DAYS HEENT Symptoms (Recalled from RN notes): Yes Resp Symptoms (Recalled from RN notes): No Skin Symptoms (Recalled from RN notes): No MS Symptoms (Recalled from RN notes): No Functional Status (Recalled from RN notes): WNL - History of Present Illness Provider Complaint: Patient states that he feels like he may have a sinus infection again States that he has been having sinus pain and pressure behind his eyes for a couple weeks that has got worse over the last couple of days State that also thinks he may have passed a kidney stone and wanted to get his urine checked to make sure he doesnt have an infection and wanted to get tested for COVID - Related Data Home Medications Medication Instructions Recorded Confirmed Aspirin [Aspirin 325mg Tab] 325 mg PO DAILY 04/26/19 08/28/20 Clopidogrel Bisulfate [Plavix 75mg 75 mg PO DAILY 04/26/19 08/28/20 Tab] Colchicine 0.6 mg PO DAILY 04/26/19 08/28/20 Furosemide [Furosemide 40MG tAB] 40 mg PO DAILY 04/26/19
[2020-09-08 19:40] VITALS: BP 129/76; PULSE 89; RESP 21; TEMP 37.3; O2SAT 97
[2020-09-09 19:29] LABS: Apearance,Urine Clear (Clear); Bilirubin,Urine Negative (Negative); Blood, Urine Trace (Negative); Color,Urine Yellow (Yellow); Glucose,Urine (UA) Negative (Negative); Ketones,Urine Negative (Negative); Protein,Urine Negative (Negative); UTC Leukocyte Esterase,Urine Negative (Negative); UTC Nitrate,Urine Negative (Negative); Urobilinogen,Urine 0.2 EU/dl (0.2)
== END 2020-09-08 19:43 | disposition home or self-care (01) ==
PROVIDERS: Emergency Provider Nurse Practitioner; PCP Family Medicine
DX: J32.9 Chronic sinusitis, unspecified (principal); Z20.822 Contact with and (suspected) exposure to COVID-19; J44.9 Chronic obstructive pulmonary disease, unspecified; I25.10 Atherosclerotic heart disease of native coronary artery without angina pectoris; E10.9 Type 1 diabetes mellitus without complications; I10 Essential (primary) hypertension; E78.5 Hyperlipidemia, unspecified; E03.9 Hypothyroidism, unspecified; Z79.899 Other long term (current) drug therapy
CPT/HCPCS: G0463; 81003; 99203; U0003

== ENCOUNTER → 2020-10-31 14:12 | Outpatient (CLI) | payer MEDICARE, OTHER, SELFPAY | PROVIDERS: Visit Provider Orthopaedic Surgery Hand Surgery | DX: Z01.812 Encounter for preprocedural laboratory examination (principal); Z11.52 Encounter for screening for COVID-19 | CPT/HCPCS: C9803; U0003; U0005 ==

== ENCOUNTER 2020-12-15 13:17 | Emergency (ER) | payer MEDICARE, OTHER, SELFPAY ==
[2020-12-15 14:05] VITALS: BP 151/75; PULSE 91; RESP 21; TEMP 36.9; O2SAT 95; BMI 32.6
--- NOTE | 2020-12-15 14:34 | HMH.EDUTC ---
[facility] [place] Disposition Clinical Impression: Sinusitis Qualifiers: Sinusitis location: unspecified location Chronicity: unspecified Qualified Code(s): J32.9 - Chronic sinusitis, unspecified Disposition: Home, Self-Care Condition on Discharge: Good Instructions: Sinusitis, DI for Sinusitis, Amoxicillin and Clavulanic Acid Additional Instructions: *Monitor Temp, Over the counter Motrin or Tylenol as directed/as needed Tylenol every 4 hours and Motrin every 6 hours (as long as your family doctor has told you that you can take it) for fever or pain. and straight to ER if unable to lower temp less than 101.0 after medication given *Warm salt water gargles may help to soothe the throat *Throat Lozenges *Warm fluids like tea with honey may help to soothe the throat *Sleep elevated *Humidifier/Vaporizer *Flonase 2 sprays in each nostril daily but be aware that it may take 2-3 days before you notice improvement Take antibiotics as prescribed Follow up IMMEDIATELY for new or worsening symptoms or no Noticeable improvement over the next 48-72 hours. 911 for difficulty breathing or swallowing You were tested for today for COVID19 your test result should be back in the next 24-48 hours, you may check your results on the [facility] My health portal if you have trouble logging on or seeing your results you may call You was given a handout with instructions for Self Quarantine and Self isolation for while you wait on test results and what to do if they are positive If you are positive the Health Dept will be contacting you also Make sure to take your Vitamins Vit. C Vit D and Zinc if you can take them Prescriptions: Amoxicillin/Potassium Clav [Augmentin 875-125 Tablet] 1 tab PO Q12H 7 Days #14 tab Transmission Status: Pending to [facility] #[id number] Referrals: Elijah Serra DO [Primary Care Provider] - As needed Time of Disposition: 14:48 Medical Decision Making - Herman Inquiry Pt receiving controlled substance: No Herman was queried for this patient: No Vital Signs: 12/15/20 14:05 12/15/20 14:56 Temperature 98.5 F 98.5 F Temperature Source Temporal Artery Scan Pulse Rate 91 H Pulse Rate [Right Brachial] 91 H Respiratory Rate 21 21 Blood Pressure 151/75 H Blood Pressure [Right Arm] 151/75 H Blood Pressure Mean [Right Arm] 100 Blood Pressure Source [Right Arm] Automatic Cuff Blood Pressure Position [Right Arm] Sitting 02 Sat by Pulse Oximetry 95 Oxygen Delivery Method Room Air Orders (Tests/Meds): ED MEDICATIONS Discontinued Medications Generic Name Dose Route Start Last Admin Trade Name Getachew PRN Reason Stop Dose Admin Methylprednisolone Sodium Succinate 125 mg 12/15/20 14:41 12/15/20 14:51 Methylprednisolone Sod Succ 125mg Vial IM 12/15/20 14:42 125 mg ONCE ONE Administration ORDERS Category Date Time Status Covid-19 Nasal PCR ([facility]) Routine Lab 12/15/20 14:42 Received Medical Decision Narrative: Patient states that he has history of diabetes but has been controlled with Pump and has taken solumedrol in the past without complication or reactions with his sugar [facility] [place] HPI - General Stated complaint: sore throat, cough, SOB, runny nose, THOMPSON, Congestio Time Seen by Provider: 12/15/20 14:41 Mode of Arrival: Ambulatory Source of Information: Patient Limitations: No Limitations Description of Symptoms (Recalled from Triage Doc. by RN): PATIENT C/O SINUS PRESSURE, HEADACHE, GREEN SINUS DRAINAGE, AND RIGHT EAR ACHE X 2 WEEKS. ALSO REQUESTING COVID TESTING HEENT Symptoms (Recalled from RN notes): Yes Resp Symptoms (Recalled from RN notes): No Skin Symptoms (Recalled from RN notes): No MS Symptoms (Recalled from RN notes): No Functional Status (Recalled from RN notes): WNL - History of Present Illness Provider Complaint: Patient states that he has been fighting a sinus infection for over 2 weeks States that he has been having pressure behind his eyes, in his cheeks and even his upper
[2020-12-15 14:56] VITALS: BP 151/75; PULSE 91; RESP 21; TEMP 36.9; O2SAT 95
== END 2020-12-15 14:59 | disposition home or self-care (01) ==
PROVIDERS: Emergency Provider Nurse Practitioner; PCP Family Medicine
DX: J32.9 Chronic sinusitis, unspecified (principal); J44.9 Chronic obstructive pulmonary disease, unspecified; Z20.822 Contact with and (suspected) exposure to COVID-19; I25.10 Atherosclerotic heart disease of native coronary artery without angina pectoris; I10 Essential (primary) hypertension; E78.5 Hyperlipidemia, unspecified; E03.9 Hypothyroidism, unspecified; Z79.899 Other long term (current) drug therapy
CPT/HCPCS: G0463; 96372; 99202; C9803; U0003; U0005

== ENCOUNTER 2020-12-19 19:21 | Emergency (ER) | payer MEDICARE, OTHER, SELFPAY ==
[2020-12-19 19:25] VITALS: BP 140/65; PULSE 97; RESP 23; TEMP 36.6; O2SAT 97; BMI 31.3
--- NOTE | 2020-12-19 19:50 | HMH.EDUTC ---
[facility] [place] Clinical Impression: Side effects of vaccination Qualifiers: Encounter type: initial encounter Qualified Code(s): T50.Z95A - Adverse effect of other vaccines and biological substances, initial encounter Disposition: Home, Self-Care Condition on Discharge: Good Instructions: Influenza Vaccine Additional Instructions: After influenza vaccines it is common to have body aches, chills, fever and flu like symptoms but these should subside after a day or so Make sure to follow up immediately if you start having swelling in your throat, rash, redness and warm at injection site or any life threatening symptom Follow up with your Family Doctor if no improvement or any worsening of symptoms Return if needed Straight to ER if any life threatening symptoms Referrals: Elijah Serra DO [Primary Care Provider] - As needed Time of Disposition: 20:35 Medical Decision Making - Herman Inquiry Pt receiving controlled substance: No Herman was queried for this patient: No Vital Signs: 12/19/20 19:25 12/19/20 20:33 Temperature 97.9 F 97.9 F Temperature Source Oral Pulse Rate 97 H Pulse Rate [Left Brachial] 97 H Respiratory Rate 23 23 Blood Pressure 140/65 Blood Pressure [Left Arm] 140/65 Blood Pressure Mean [Left Arm] 90 Blood Pressure Source [Left Arm] Automatic Cuff Blood Pressure Position [Left Arm] Sitting 02 Sat by Pulse Oximetry 97 Oxygen Delivery Method Room Air Orders (Tests/Meds): ED MEDICATIONS Discontinued Medications Generic Name Dose Route Start Last Admin Trade Name Freq PRN Reason Stop Dose Admin Ondansetron HCl 4 mg 12/19/20 20:15 12/19/20 20:20 Ondansetron 4mg Odt SL 12/19/20 20:16 4 mg ONCE ONE Administration [facility] [place] - General Stated complaint: SICK FR fLU SHOT, VOMITING, BODY PAIN Time Seen by Provider: 12/19/20 19:50 Mode of Arrival: Ambulatory Source of Information: Patient Limitations: No Limitations Description of Symptoms (Recalled from Triage Doc. by RN): PATIENT REPORTS GETTING A FLU SHOT TODAY AND IS NOW HAVING BODY ACHES AND VOMITING (ONCE). CURRENTLY ON AUGMENTIN SINCE TUESDAY FOR SINUS INFECTION HEENT Symptoms (Recalled from RN notes): No Resp Symptoms (Recalled from RN notes): No Skin Symptoms (Recalled from RN notes): No MS Symptoms (Recalled from RN notes): Yes Functional Status (Recalled from RN notes): WNL - History of Present Illness Provider Complaint: Patient state that he is currently being treated for sinus infection with Augmentin State that he was feeling better so today he went today and got his flu shot States that since taking it he is having body aches, chills and vomited x 1 earlier - Related Data Home Medications Medication Instructions Recorded Confirmed Aspirin [Aspirin 325mg Tab] 325 mg PO DAILY 04/26/19 12/17/20 Clopidogrel Bisulfate [Plavix 75mg 75 mg PO DAILY 04/26/19 12/17/20 Tab] Colchicine 0.6 mg PO DAILY 04/26/19 12/17/20 Furosemide [Furosemide 40MG tAB] 40 mg PO DAILY 04/26/19 12/17/20 Hydroxychloroquine Sulfate 200 mg PO DAILY 04/26/19 12/17/20 [Plaquenil 200mg tablet] Levothyroxine Sodium 125 mcg PO DAILY 04/26/19 12/17/20 [Levothyroxine 125mcg (0.125mg) Tab] Metoprolol Tartrate 50 mg PO DAILY 04/26/19 12/17/20 Rosuvastatin Calcium [Crestor 20 20 mg PO DAILY 04/26/19 12/17/20 mg Tablets] Sucralfate [Sucralfate 1gm 1 tab PO DAILY 04/26/19 12/17/20 Tab] Tamsulosin HCl [Flomax 0.4mg 0.4 mg PO HS 04/26/19 12/17/20 capsule] Tizanidine HCl [Zanaflex] 4 mg PO DAILYP PRN 04/26/19 12/17/20 lancets 33 gauge See Rx Instructions .ROUTE 02/04/20 12/17/20 .MEDSUPPLY #100 each lisinopril 2.5 mg tablet 2.5 mg PO DAILY 02/04/20 12/17/20 nitroglycerin 0.4 mg sublingual 0.4 mg SUBLINGUAL Q5M PRN 02/04/20 12/17/20 tablet sucralfate 1 gram tablet 1 g PO BID 02/04/20 12/17/20 sumatriptan succinate 6 mg/0.5 mL SQ 02/04/20 12/17/20 subcutaneous solution allopurinol 100 mg tabl
[2020-12-19 20:33] VITALS: BP 140/65; PULSE 97; RESP 23; TEMP 36.6; O2SAT 97
== END 2020-12-19 20:38 | disposition home or self-care (01) ==
PROVIDERS: Emergency Provider Nurse Practitioner; PCP Family Medicine
DX: R11.10 Vomiting, unspecified (principal); T50.B95A Adverse effect of other viral vaccines, initial encounter; Y92.019 Unspecified place in single-family (private) house as the place of occurrence of the external cause; J44.9 Chronic obstructive pulmonary disease, unspecified; I25.10 Atherosclerotic heart disease of native coronary artery without angina pectoris; E03.9 Hypothyroidism, unspecified; I10 Essential (primary) hypertension; E10.9 Type 1 diabetes mellitus without complications; E78.5 Hyperlipidemia, unspecified
CPT/HCPCS: G0463; 99202

== ENCOUNTER 2021-01-24 10:26 | Emergency (ER) | payer MEDICARE, OTHER, SELFPAY ==
[2021-01-24 12:13] VITALS: BP 115/76; PULSE 77; RESP 18; TEMP 36.7; O2SAT 96; BMI 30.1
[2021-01-24 12:26] VITALS: BP 132/74; PULSE 78; RESP 16; TEMP 36.6; O2SAT 98; BMI 22.9
--- NOTE | 2021-01-24 12:27 | CT_ITS ---
PROCEDURE INFORMATION: Exam: CT Head Without Contrast Exam date and time: 01/24/2021 12:27 PM Age: 65 years old Clinical indication: Injury or trauma; Fall; Blunt trauma (contusions or hematomas); Injury date: 01/24/21; Additional info: Head injury on plavix// fall and hit left side of ear and head on a board -- large bruised area TECHNIQUE: Imaging protocol: Computed tomography of the head without contrast. Radiation optimization: All CT scans at this facility use at least one of these dose optimization techniques: automated exposure control; mA and/or kV adjustment per patient size (includes targeted exams where dose is matched to clinical indication); or iterative reconstruction. COMPARISON: No relevant prior studies available. FINDINGS: Brain: Prominent sulci. Patchy hypodensity of the cerebral white matter which are nonspecific but likely secondary to microangiopathic changes. Cerebral ventricles: InThe ventricles are prominent secondary to diffuse volume loss/atrophy. Paranasal sinuses: Mild mucoperiosteal thickening of the paranasal sinuses. Mastoid air cells: Visualized mastoid air cells are well aerated. Bones/joints: Unremarkable. No acute fracture. Soft tissues: Unremarkable. IMPRESSION: Chronic age related changes but no evidence of acute intracranial pathology.
--- NOTE | 2021-01-24 13:01 | CT_ITS ---
PROCEDURE INFORMATION: Exam: CT Abdomen And Pelvis Without Contrast Exam date and time: 01/24/2021 1:01 PM Age: 65 years old Clinical indication: Other: Large bruise from a fall; Additional info: Bruising, fall, patient on plavix TECHNIQUE: Imaging protocol: Computed tomography of the abdomen and pelvis without contrast. Radiation optimization: All CT scans at this facility use at least one of these dose optimization techniques: automated exposure control; mA and/or kV adjustment per patient size (includes targeted exams where dose is matched to clinical indication); or iterative reconstruction. COMPARISON: ABDPELW/O CT ABD PELVIS W/O CONTRAST 02/07/2016 3:35 PM FINDINGS: Lungs: Chronic/dependent changes in the lung bases. Liver: Normal. No mass. Gallbladder and bile ducts: Status post cholecystectomy. Pancreas: Normal. No ductal dilation. Spleen: The spleen is mildly prominent. Adrenal glands: Normal. No mass. Kidneys and ureters: Multiple bilateral intrarenal calculi. No evidence of hydronephrosis or ureteral stones. 3.4 cm cyst off the upper pole the left kidney. Stomach and bowel: Moderate feces is present throughout the colon. Appendix: The appendix is seen and is normal in appearance. Intraperitoneal space: Unremarkable. No free air. No significant fluid collection. Vasculature: Vascular calcifications are present. Lymph nodes: Unremarkable. No enlarged lymph nodes. Urinary bladder: Unremarkable as visualized. Reproductive: Unremarkable as visualized. Bones/joints: Bilateral hip replacements. Chronic right lower rib fracture. Spinal degenerative changes are noted. Soft tissues: Unremarkable. IMPRESSION: 1. Multiple bilateral intrarenal calculi. No evidence of hydronephrosis or ureteral stones. 2. No definite evidence of acute trauma involving the abdomen/pelvis. Remainder of findings as described above. COMMENTS: Consistent with the [employer]'s Incidental Findings Committee white paper (J Am Rohan Radiol 2018): Any incidental renal lesion less than 1 cm or classified as too small to characterize, or any incidental cystic renal lesion characterized as simple-appearing, is likely benign. No follow-up imaging is recommended for these lesions per consensus recommendations based on imaging criteria.
--- NOTE | 2021-01-24 14:36 | HMH.EDGENADL ---
ED Disposition Clinical Impression: Hematoma Fall Qualifiers: Encounter type: initial encounter Qualified Code(s): W19.XXXA - Unspecified fall, initial encounter Disposition: Home, Self-Care Condition on Discharge: Fair Referrals: Yehuda Barger MD [Primary Care Provider] - - Critical Care Critical Care Time: No Attestation: On 01/24/21, the high probability of a clinically significant, sudden or life threatening deterioration of the following system(s) required my full and direct attention, intervention and personal management. The time I documented below is in addition to time spent performing reported procedures but includes the following listed in this critical care notation. Medical Decision Making - Medical Records Medical records reviewed: Yes: I reviewed the patient's medical records. - Herman Inquiry Pt receiving controlled substance: No Vital Signs: 01/24/21 12:13 Temperature 98.1 F Temperature Source Oral Pulse Rate [Left] 77 Respiratory Rate 18 Blood Pressure [Right Arm] 115/76 Blood Pressure Mean [Right Arm] 89 02 Sat by Pulse Oximetry 96 Orders (Tests/Meds): ED MEDICATIONS Discontinued Medications Generic Name Dose Route Start Last Admin Trade Name Freq PRN Reason Stop Dose Admin Acetaminophen 650 mg 01/24/21 13:02 Acetaminophen 325mg/10.15ml Udc PO 01/24/21 13:03 ONCE ONE Medical Decision Narrative: Patient is 65-year-old male presented to emergency department chief complaint of left ear pain, headache after a fall. Patient denies any presyncopal symptoms, patient does take blood thinners, given this we will order a CT of his head as well as CT C-spine. Patient is complaining of pain of his left flank bruising as well. Diagnosis for this patient includes subdural hemorrhage, auricular hematoma, renal injury, hip fracture among others. Given this also ordered a CT abdomen pelvis Noncon given the patient's tenderness. Patient has no obvious trauma to his pelvis, he has mild subcutaneous injury and inflammation, but no other abnormalities. Patient does have a swollen left ear blood, patient would benefit from auricular hematoma excavation at this time given the minimal amount of swelling as well as use of blood thinners. Quickclot was used on patients ear for hemostasis. General Adult HPI - General Stated complaint: AO fall 01/23 lt ear laceration Time Seen by Provider: 01/24/21 12:15 Mode of Arrival: Ambulatory Source of Information: Patient Limitations: No Limitations Description of Symptoms (Recalled from ER Triage Doc. by RN): pt states he fell last night and hit the L side of his head on a 6x6 post. pt denies LOC. pt still has bleeding from the cartlidge of his L ear. pt also states he was very dizzy for a good while after he fell. pt is on aspirin and plavix. - History of Present Illness HPI narrative: Patient is 65-year-old male presenting to emergency department with chief complaint of ear pain, headache after a fall. Patient states that he was running in the rain pain try to bring up groceries when he slipped and fell hitting the left side of his head and hitting his left back. Is been ambulatory since the event, however states that he has had oozing and bleeding of his ear after the trauma. He denies loss consciousness at the time of the event, has been ambulatory since. Is complaining of pain at his back, as well as pain in his left ear and some dizziness. He denies any lightheadedness, chest pain, changes in vision prior to the fall. She states that has been able to walk, urinate and eat since the time of the fall. - Related Data Home Medications Medication Instructions Recorded Confirmed Aspirin [Aspirin 325mg Tab] 325 mg PO DAILY 04/26/19 12/17/20 Clopidogrel Bisulfate [Plavix 75mg 75 mg PO DAILY 04/26/19 12/17/20 Tab] Colchicine 0.6 mg PO DAILY 04/26/19 12/17/20 Furosemide [Furosemide 40MG tAB] 40 mg PO DAILY 04/26/19
[2021-01-24 16:00] VITALS: BP 142/78; PULSE 78; RESP 16; TEMP 36.6; O2SAT 98
== END 2021-01-24 16:00 | disposition home or self-care (01) ==
LOC: UTC 10:29 → ER 12:16
PROVIDERS: Emergency Provider Emergency Medicine; PCP Family Medicine
DX: S01.312A Laceration without foreign body of left ear, initial encounter (principal); W18.09XA Striking against other object with subsequent fall, initial encounter; Y92.89 Other specified places as the place of occurrence of the external cause; J44.9 Chronic obstructive pulmonary disease, unspecified; I25.10 Atherosclerotic heart disease of native coronary artery without angina pectoris; I10 Essential (primary) hypertension; E78.5 Hyperlipidemia, unspecified; E10.9 Type 1 diabetes mellitus without complications; E03.9 Hypothyroidism, unspecified; Z96.641 Presence of right artificial hip joint; Z96.642 Presence of left artificial hip joint; Z79.899 Other long term (current) drug therapy
CPT/HCPCS: 70450; 74176; 99282

== ENCOUNTER → 2021-02-02 08:47 | Outpatient (CLI) | payer MEDICARE, OTHER, SELFPAY | PROVIDERS: PCP Family Medicine; Visit Provider Nurse Practitioner | DX: Z20.822 Contact with and (suspected) exposure to COVID-19 (principal) | CPT/HCPCS: C9803; U0003; U0005 ==

== ENCOUNTER → 2021-02-28 07:46 | Outpatient (CLI) | payer MEDICARE, OTHER, SELFPAY ==
[2021-02-28 08:19] LABS: Chloride 106 mmol/L (98-107); Potassium 4.7 mmoL/L (3.5-5.1); Sodium 141 mmol/L (136-145)
[2021-02-28 08:22] LABS: Alanine Aminotransferase 12 U/L (12-78); Albumin Level 3.9 g/dl (3.5-5.0); Albumin/Globulin Ratio 1.4 (1.1-1.8); Alkaline Phosphatase 96 U/L (38-126); Anion Gap 8.7 mEq/L (5-15); Aspartate Amino Transferase 28 U/L (17-59); Bilirubin,Total 0.7 mg/dl (0.2-1.3); Blood Urea Nitrogen 14 mg/dl (9-20); Calcium 9.2 mg/dl (8.4-10.2); Carbon Dioxide 31 mmol/L (22.0-30.0); Estimated Glomerular Filt Rate 67 ml/min (>60); GFR (African American) 81 ML/MIN (>60); Globulin 2.7 g/dL (1.3-3.2); Glucose 107 mg/dl (74-100); Total Protein,Serum 6.6 g/dl (6.3-8.2)
[2021-03-02 13:15] LABS: C-Peptide <0.1 ng/mL (1.1-4.4)
== END ==
PROVIDERS: Visit Provider Nurse Practitioner
DX: E11.65 Type 2 diabetes mellitus with hyperglycemia (principal)
CPT/HCPCS: 36415; 80053; 84681

== ENCOUNTER → 2021-08-17 15:59 | Outpatient (CLI) | payer MEDICARE, OTHER, SELFPAY ==
[2021-08-17 16:12] LABS: Microscopic, Urine URINE MICROSCOPIC (MICROSCOPIC)
[2021-08-17 16:27] LABS: Appearance,Urine CLEAR (Clear); Bilirubin,Urine Negative (Negative); Blood, Urine 2+ (Negative); Color,Urine YELLOW (Yellow); Glucose,Urine (UA) Negative (Negative); Ketones,Urine Negative (Negative); Leukocyte Esterase,Urine Negative (Negative); Nitrate,Urine Negative (Negative); PH,Urine 6.5 (5.0-8.5); Protein,Urine Negative (Negative)
[2021-08-17 16:48] LABS: Hematocrit 34.5 % (42.0-52.0); Hemoglobin 11.6 g/dL (14.1-18.0); Mean Corpuscular HGB Conc 33.7 g/dL (31.8-35.4); Mean Corpuscular Hemoglobin 27.1 pg (27.0-31.2); Mean Corpuscular Volume 80.4 fl (80-94); Platelet Count 146 K/mm3 (142-424); Red Blood Count 4.29 M/mm3 (4.60-6.20); Red Cell Distribution Width 16.5 % (11.5-17.5); White Blood Count 3.1 K/mm3 (4.8-10.8)
[2021-08-17 16:56] LABS: Alanine Aminotransferase 17 U/L (12-78); Albumin Level 3.6 g/dl (3.5-5.0); Albumin/Globulin Ratio 1.3 (1.1-1.8); Alkaline Phosphatase 92 U/L (38-126); Anion Gap 9.4 mEq/L (5-15); Aspartate Amino Transferase 29 U/L (17-59); Bilirubin,Total 0.6 mg/dl (0.2-1.3); Blood Urea Nitrogen 11 mg/dl (9-20); Calcium 8.8 mg/dl (8.4-10.2); Carbon Dioxide 33 mmol/L (22.0-30.0); Chloride 101 mmol/L (98-107); Estimated Glomerular Filt Rate 67 ml/min (>60); GFR (African American) 81 ML/MIN (>60); Globulin 2.7 g/dL (1.3-3.2); Glucose 174 mg/dl (74-100); Potassium 4.4 mmoL/L (3.5-5.1); Sodium 139 mmol/L (136-145); Total Protein,Serum 6.3 g/dl (6.3-8.2); Uric Acid 6.5 mg/dl (3.5-8.5)
[2021-08-17 17:06] LABS: Bacteria,Urine 2+ /lpf
[2021-08-17 17:07] LABS: Intact Parathyroid Hormone 149.9 pg/mL (7.5-53.5)
[2021-08-17 17:29] LABS: 25-OH Vitamin D, Total 63.7 ng/mL (30-100)
[2021-08-17 17:45] LABS: Hemoglobin A1C 7.2 % (4.0-6.0)
[2021-08-18 09:55] LABS: Creatinine,Urine Random 86 mg/dL (Not Estab.)
== END ==
PROVIDERS: PCP Family Medicine; Visit Provider Internal Medicine Nephrology
DX: N18.30 Chronic kidney disease, stage 3 unspecified (principal); E11.9 Type 2 diabetes mellitus without complications; I10 Essential (primary) hypertension; E55.9 Vitamin D deficiency, unspecified; N40.0 Benign prostatic hyperplasia without lower urinary tract symptoms
CPT/HCPCS: 36415; 80053; 81001; 82306; 82570; 83036; 83970; 84155; 84166; 84550; 85014; 85018; 85048; 85049; 87086

== ENCOUNTER 2021-09-25 10:15 | Emergency (ER) | payer MEDICARE, OTHER, SELFPAY ==
[2021-09-25 10:42] VITALS: BP 120/66; PULSE 96; RESP 17; TEMP 36.9; O2SAT 96; BMI 29.5
--- NOTE | 2021-09-25 10:43 | HMH.EDUTC ---
[facility] [place] Disposition Clinical Impression: Pharyngitis Qualifiers: Pharyngitis/tonsillitis etiology: unspecified etiology Qualified Code(s): J02.9 - Acute pharyngitis, unspecified Disposition: Home, Self-Care Condition on Discharge: Good Instructions: Strep Throat, DI for Strep Throat Additional Instructions: Drink plenty of fluids. Take tylenol or ibuprofen for pain or fever. Take the medications as directed. Follow up with your regular doctor. GO TO THE ER FOR ANY WORSENING SYMPTOMS Prescriptions: Amoxicillin [Amoxicillin 500mg Tab] 500 mg PO TID 10 Days #30 tab Transmission Status: Received by [facility] # Benzonatate [Benzonatate 100mg cap] 100 mg PO TIDP PRN #30 cap PRN Reason: Cough Transmission Status: Received by [facility] # Referrals: Elijah Serra DO [Primary Care Provider] - Time of Disposition: 11:19 Medical Decision Making - Medical Records Medical records reviewed: No: I reviewed the patient's medical records. - Herman Inquiry Pt receiving controlled substance: No Vital Signs: 09/25/21 10:42 Temperature 98.5 F Temperature Source Oral Pulse Rate [Left Radial] 96 H Respiratory Rate 17 Blood Pressure [Right Arm] 120/66 Blood Pressure Mean [Right Arm] 84 02 Sat by Pulse Oximetry 96 Oxygen Delivery Method Room Air Orders (Tests/Meds): ORDERS Category Date Time Status Covid-19 Nasal PCR ([facility]) Routine Lab 09/25/21 10:37 Received [facility] [place] HPI - General Stated complaint: sore throat, cough Time Seen by Provider: 09/25/21 10:43 - History of Present Illness Provider Complaint: He states that he has a very sore throat and he feels bad. He has had these symptoms for the past 2 days. he was exposed to strep throat by his having it last week. - Related Data Home Medications Medication Instructions Recorded Confirmed Aspirin [Aspirin 325mg Tab] 325 mg PO DAILY 04/26/19 03/18/21 Clopidogrel Bisulfate [Plavix 75mg 75 mg PO DAILY 04/26/19 03/18/21 Tab] Furosemide [Furosemide 40MG tAB] 40 mg PO DAILY 04/26/19 03/18/21 Hydroxychloroquine Sulfate 200 mg PO DAILY 04/26/19 03/18/21 [Plaquenil 200mg tablet] Levothyroxine Sodium 125 mcg PO DAILY 04/26/19 03/18/21 [Levothyroxine 125mcg (0.125mg) Tab] Rosuvastatin Calcium [Crestor 20 20 mg PO DAILY 04/26/19 03/18/21 mg Tablets] Tamsulosin HCl [Flomax 0.4mg 0.4 mg PO HS 04/26/19 03/18/21 capsule] Tizanidine HCl [Zanaflex] 4 mg PO DAILYP PRN 04/26/19 03/18/21 lancets 33 gauge See Rx Instructions .ROUTE 02/04/20 03/18/21 .MEDSUPPLY #100 each lisinopril 2.5 mg tablet 2.5 mg PO DAILY 02/04/20 03/18/21 nitroglycerin 0.4 mg sublingual 0.4 mg SUBLINGUAL Q5M PRN 02/04/20 03/18/21 tablet sucralfate 1 gram tablet 1 g PO BID 02/04/20 03/18/21 sumatriptan succinate 6 mg/0.5 mL SQ 02/04/20 03/18/21 subcutaneous solution allopurinol 100 mg tablet 100 mg PO tab 04/15/20 03/18/21 duloxetine 60 mg capsule,delayed 60 mg PO cap 04/15/20 03/18/21 release fluticasone propionate 50 INTRANASAL 04/15/20 03/18/21 mcg/actuation nasal spray,suspension gabapentin 600 mg tablet 1,200 mg PO ONCE tab 04/15/20 03/18/21 potassium chloride 10 mEq meq PO 04/15/20 03/18/21 tablet,extended release trazodone 150 mg tablet mg PO 04/15/20 03/18/21 baclofen 10 mg tablet 10 mg PO tab 02/11/21 03/18/21 erythromycin 5 mg/gram (0.5 %) eye 1 applic OPHTHALMIC g 02/11/21 03/18/21 ointment isosorbide mononitrate 30 mg mg PO 02/11/21 03/18/21 tablet,extended release 24 hr metoprolol succinate 50 mg 50 mg PO tab 02/11/21 03/18/21 tablet,extended release 24 hr moxifloxacin 0.5 % eye drops 1 drp OPHTHALMIC ml 02/11/21 03/18/21 Previous Rx's Medication Instructions Recorded Hydrocod/Acet 5/325 mg [[place] 1 tab PO Q6HP PRN #10 tab 03/09/20 5/325mg tablet] ciclopirox 0.77 % topical gel 1 applic TOPICAL ONCE 90 Days #100 06/10/20 g Amoxicillin [Amox
[2021-09-25 11:24] VITALS: BP 119/60; PULSE 90; RESP 17; TEMP 36.9; O2SAT 97
== END 2021-09-25 11:25 | disposition home or self-care (01) ==
PROVIDERS: Emergency Provider Nurse Practitioner Family; PCP Family Medicine
DX: J02.9 Acute pharyngitis, unspecified (principal)
CPT/HCPCS: 99212; C9803; G0463; U0003; U0005

== ENCOUNTER 2021-10-29 10:00 | Outpatient (RCR) | payer MEDICARE, OTHER, SELFPAY | END 2021-10-29 10:05 | disposition home or self-care (01) | LOC: PT 10:00 | PROVIDERS: PCP Family Medicine; Visit Provider Orthopaedic Surgery Hand Surgery | DX: M54.2 Cervicalgia (principal) | CPT/HCPCS: 97010; 97014; 97110; 97163; 97164; G0283 ==

== ENCOUNTER 2021-10-29 11:00 | Outpatient (RCR) | payer MEDICARE, OTHER, SELFPAY | END 2021-10-29 11:05 | disposition home or self-care (01) | LOC: OT 11:00 | PROVIDERS: Visit Provider Orthopaedic Surgery Hand Surgery | DX: M79.641 Pain in right hand (principal); M25.531 Pain in right wrist; M79.642 Pain in left hand; M25.532 Pain in left wrist | CPT/HCPCS: 97010; 97014; 97018; 97035; 97110; 97140; 97164; 97166; G0283 ==

== ENCOUNTER 2021-10-30 08:11 | Inpatient (IN) | payer MEDICARE, OTHER, SELFPAY ==
[2021-10-30] VITALS (14 sets, daily range): BP systolic 97–126; BP diastolic 38–74; PULSE 84–98; RESP 14–22; TEMP 36.6–37.1; O2SAT 96–98; BMI 27.2; BMI 28.0
--- NOTE | 2021-10-30 08:28 | XR_ITS ---
FINAL REPORT CLINICAL HISTORY: cough FINDINGS: SINGLE-VIEW CHEST The heart size is normal. The mediastinum is normal. There is scarring at the bases. The lungs are otherwise clear. There is no pneumothorax. IMPRESSION: No acute cardiopulmonary process. Reviewed, Interpreted and Dictated by Palomo Chowdhury MD Transcribed by Beatriz Mulligan Authenticated and [facility]
--- NOTE | 2021-10-30 08:39 | PC.NURSE ---
FSBS read HIGH. Md notified and labs drawn and sent to lab
[2021-10-30 08:47] LABS: Basophils % 0.4 % (0.1-2.0); Eosinophils % 0.4 % (0.1-12.0); Hematocrit 42.9 % (42.0-52.0); Hemoglobin 12.1 g/dL (14.1-18.0); Lymphocytes # 0.3 K/mm3 (0.7-4.5); Lymphocytes % 4.6 % (10-50); Mean Corpuscular HGB Conc 28.1 g/dL (31.8-35.4); Mean Corpuscular Hemoglobin 26.6 pg (27.0-31.2); Mean Corpuscular Volume 94.7 fl (80-94); Mean Platelet Volume 7.9 fl (7.4-10.4); Monocytes # 0.5 K/mm3 (0.1-1.0); Neutrophils # 5.9 K/mm3 (1.8-7.8); Neutrophils % 87.5 % (37.0-80.0); Platelet Count 185 K/mm3 (142-424); Red Blood Count 4.53 M/mm3 (4.60-6.20); Red Cell Distribution Width 15.7 % (11.5-17.5); White Blood Count 6.7 K/mm3 (4.8-10.8)
[2021-10-30 08:48] LABS: MANUAL DIFFERENTIAL MANUAL DIFFERENTIAL (MANUAL DIFF)
[2021-10-30 08:54] LABS: Chloride 87 mmol/L (98-107)
[2021-10-30 08:55] LABS: Potassium 5.8 mmoL/L (3.5-5.1); Sodium 130 mmol/L (136-145)
[2021-10-30 08:57] LABS: ABG Base Excess -12.4 mmol/L (-2.4-2.3); ABG HCO3 14.8 mmhg (22.0-26.0); ABG Oxygen Saturation 95 % (90-100); ABG PCO2 34.6 mmhg (35.0-45.0); ABG PH 7.25 mmol/L (7.35-7.45); ABG PO2 89.3 mmhg (80-100); ABG TCO2 15.9 mmhg (23-27)
[2021-10-30 08:57] LABS: Alanine Aminotransferase 31 U/L (12-78); Alkaline Phosphatase 139 U/L (38-126); Anion Gap 34.8 mEq/L (5-15); Aspartate Amino Transferase 38 U/L (17-59); Bilirubin,Total 1.7 mg/dl (0.2-1.3); Blood Urea Nitrogen 59 mg/dl (9-20); Carbon Dioxide 14 mmol/L (22.0-30.0); Creatinine Clearance Estimated 40 mL/min (50-200); Estimated Glomerular Filt Rate 30 ml/min (>60); GFR (African American) 36 ML/MIN (>60)
[2021-10-30 08:58] LABS: Allen's Test Acceptable; Oxygen Room Air %; Source Right Radial
[2021-10-30 08:58] LABS: Albumin Level 3.7 g/dl (3.5-5.0); Albumin/Globulin Ratio 1.4 (1.1-1.8); Calcium 8.5 mg/dl (8.4-10.2); Globulin 2.6 g/dL (1.3-3.2); Lipase 33 U/L (23-300); Total Protein,Serum 6.3 g/dl (6.3-8.2)
[2021-10-30 09:06] LABS: Acetone, Serum (Rapid) Moderate (None Detect)
[2021-10-30 09:07] LABS: Glucose 1052 mg/dl (74-100)
--- NOTE | 2021-10-30 09:07 | PC.NURSE ---
aware of glucose reading of 1052
[2021-10-30 09:13] LABS: Troponin I < 0.01 ng/ml (0.00-0.034)
[2021-10-30 09:15] LABS: Lymphocytes % 3 % (10-50); Monocytes % 9 % (2-9); Neutrophils % 88 % (42-76); Total Cells Counted 100
[2021-10-30 09:16] LABS: Hypochromasia 1+; Platelet Estimate Normal
--- NOTE | 2021-10-30 09:20 | PC.NURSE ---
RN @ BS AT this time
--- NOTE | 2021-10-30 09:23 | PC.NURSE ---
pt with insulin pump inplace. family d/pavan pump while in the ed
--- NOTE | 2021-10-30 10:03 | PC.NURSE ---
RN obtained Covid nasal swab
--- NOTE | 2021-10-30 10:03 | HMH.EDGENADL ---
Discharge Plan Disposition Patient Disposition: Admitted As Inpatient Condition: Serious Chief Complaint: Hyper/Hypoglycemia Prescriptions Prescriptions: No Action lisinopril 2.5 mg tablet 2.5 mg PO DAILY nitroglycerin 0.4 mg tablet, sublingual 0.4 mg SUBLINGUAL Q5M PRN Rx Instructions: do not exceed 3 doses per episode sucralfate [Carafate] 1 gram tablet 1 g PO BID sumatriptan succinate [Imitrex] 6 mg/0.5 mL solution SQ (DME) lancets [BD Ultra Fine Lancets] 33 gauge misc See Rx Instructions .ROUTE .MEDSUPPLY Qty: 100 Rx Instructions: As directed potassium chloride 10 mEq tablet extended release PO fluticasone propionate 50 mcg/actuation spray,suspension INTRANASAL trazodone 150 mg tablet PO gabapentin 600 mg tablet 1,200 mg PO ONCE duloxetine 60 mg capsule,delayed release(DR/EC) 60 mg PO allopurinol 100 mg tablet 100 mg PO ciclopirox 0.77 % gel 1 applic TOPICAL ONCE 90 Days Qty: 100 2RF Rx Instructions: Apply daily to affected toenail. Smooth with emery board weekly. moxifloxacin 0.5 % drops 1 drp OPHTHALMIC erythromycin 5 mg/gram (0.5 %) ointment 1 applic OPHTHALMIC metoprolol succinate 50 mg tablet extended release 24 hr 50 mg PO isosorbide mononitrate 30 mg tablet extended release 24 hr PO aspirin [Adult Low Dose Aspirin] 81 mg tablet,delayed release (DR/EC) 81 mg PO DAILY furosemide 40 MG tablet 40 mg PO DAILY clopidogrel 75 MG tablet 75 mg PO DAILY tamsulosin 0.4 MG capsule 0.4 mg PO HS levothyroxine 125 MCG tablet 125 mcg PO DAILY hydroxychloroquine 200 MG tablet 200 mg PO DAILY rosuvastatin 20 MG tablet 20 mg PO DAILY tizanidine 4 MG capsule 4 mg PO DAILYP PRN (Reason: PAIN) hydrocodone-acetaminophen 1 TAB tablet 1 tab PO Q6HP PRN (Reason: Pain) Qty: 10 0RF Referrals Follow up/Referrals: Elijah Serra DO [Primary Care Provider] - See instructions Clinical Impressions Clinical Impression: Diabetic ketoacidosis, Acute kidney injury, Acute hyponatremia Instructions Patient Instructions: DI for Hyperglycemia -- Adult Discharge ED Provider: De Henao Adult [facility] General Chief complaint: Hyper/Hypoglycemia Stated complaint: High Blood Sugar, Nausea Time Seen by Provider: 10/30/21 09:04 Mode of Arrival: Wheelchair Limitations: No Limitations Description of Symptoms (Recalled from ER Triage Doc. by RN): Pt presents c/o high blood sugars and a general feeling of weakness. Dexcom was reading high upon arrival to ED History of Present Illness HPI narrative: This is a 65-year-old male with a longstanding history of diabetes presented to the emergency department with some generalized weakness. The patient has an insulin pump installed, however states that he has been having some issues with it. He felt like it was not working over the last few days. The last 2 days his sugars have been reading high. He checked her sugar this morning and it was just reading is high. Patient states that he just feels rundown. Does not have any energy. He denies any headache or change in vision. No focal weakness. No fevers or chills. No chest pain or shortness of breath. Abdominal pain or vomiting. No diarrhea. Related Data Home Medications Medication Instructions Recorded Confirmed clopidogrel 75 mg tablet 75 mg PO DAILY HEART 04/26/19 10/20/21 furosemide 40 mg tablet 40 mg PO DAILY Fluid 04/26/19 10/20/21 hydroxychloroquine 200 mg tablet 200 mg PO DAILY Cholesterol 04/26/19 10/20/21 levothyroxine 125 mcg tablet 125 mcg PO DAILY THYROID 04/26/19 03/18/21 rosuvastatin 20 mg tablet 20 mg PO DAILY Cholesterol 04/26/19 10/20/21 tamsulosin 0.4 mg capsule 0.4 mg PO HS BPH 04/26/19 10/20/21 tizanidine 4 mg capsule 4 mg PO DAILYP PRN PAIN 04/26/19 10/20/21 lancets 33 gauge (BD Ultra Fine #100 ea /
[2021-10-30 10:06] LABS: Influenza A, PCR Not Detected (NotDetected); Influenza B, PCR Not Detected (NotDetected)
--- NOTE | 2021-10-30 10:10 | PC.NURSE ---
Dr Henao speaking with Dr Davis
--- NOTE | 2021-10-30 10:11 | PC.NURSE ---
pt unsure of home medications, states she can bring pt's list in later
[2021-10-30 10:34] LABS: Coronavirus 19, PCR Detected (NotDetected)
--- NOTE | 2021-10-30 10:38 | PC.NURSE ---
POC GLUCOSE READ HI called lab for blood draw glucose
--- NOTE | 2021-10-30 10:39 | PC.NURSE ---
family states pt had covid 6 weeks ago
--- NOTE | 2021-10-30 10:40 | PC.NURSE ---
LAb now here to do blood draw for GLUCOSE
--- NOTE | 2021-10-30 10:55 | PC.NURSE ---
attempted to call report
--- NOTE | 2021-10-30 11:12 | PC.NURSE ---
attempted to call report
--- NOTE | 2021-10-30 11:17 | PC.NURSE ---
report given to naun lane
[2021-10-30 11:26] LABS: Glucose,Random 1030 mg/dL (74-100)
--- NOTE | 2021-10-30 11:41 | EXP.PHA.VTE ---
[facility] Pharmacy VTE Monitoring Patient Demographics Admission date: 10/30/21 Report Date: 10/30/21 Time: 11:41 Patient Allergies iodine [IODINE] Allergy (Mild, Verified 10/30/21 09:44) adhesive tape Allergy (Verified 10/30/21 09:44) Height: 1.78 m Weight: 86.183 kg Current Active Problems (Updated 10/30/21 @ 10:15 by De Henao MD) Diabetic ketoacidosis (Acute) Acute kidney injury (Acute) Acute hyponatremia (Acute) VTE Risk Labs: VTE Related Lab Results Hgb 12.1 g/dL (14.1-18.0) L 10/30/21 08:35 Hct 42.9 % (42.0-52.0) 10/30/21 08:35 Plt Count 185 K/mm3 (142-424) 10/30/21 08:35 BUN 59 mg/dl (9-20) H 10/30/21 08:35 Creatinine 2.20 mg/dl (0.66-1.25) H 10/30/21 08:35 Estimated Creat Clear 40 mL/min (50-200) 10/30/21 08:35 Prophylaxis VTE Prophylaxis Ordered?: Yes Types of VTE Prophylaxis: TEDS Knee High and Pharmacological Location of Applied Device: Bilateral Lower Extremeties Pharmacologic Type: Enoxaparin
--- NOTE | 2021-10-30 11:41 | PC.NURSE ---
insulin drip increased to 10units per dr nice
--- NOTE | 2021-10-30 12:01 | PC.NURSE ---
patient arrived to floor from ED by wheelchair
[2021-10-30 12:02] LABS: Troponin I 0.01 ng/ml (0.00-0.034)
[2021-10-30 13:53] LABS: Glucose,Random 888 mg/dL (74-100)
--- NOTE | 2021-10-30 13:58 | PC.NURSE ---
spoke with kasie saavedra aprn at 1300 about patient blood pressure being 60-70/30s she stated to give a bolus of 1000ml ns. this order was carried out. new iv started in l wrist 20 gauge. on floor at 1330 and he ordered to start a dopamine drip. patient is resting in bed. 1353 lab notified us of critical glucose. patient is on insulin drip at this time. titrating based off of results.
--- NOTE | 2021-10-30 14:31 | PC.NURSE ---
patient dopamine drip started at 4mcg/kg/min and has been increased gradually based off of bp. it is currently at 14mcg/kg/min. most recent bp 86/36 will continue to titrate as bp tolerates
[2021-10-30 15:25] LABS: Troponin I 0.02 ng/ml (0.00-0.034)
--- NOTE | 2021-10-30 16:14 | EXP.HP ---
History of Present Illness *Admission Date: 10/30/21 *Reason for visit:: DKA *History of present illness: This is a 65-year-old male with a longstanding history of diabetes presented to the emergency department with some generalized weakness.? The patient has an insulin pump installed, however states that he has been having some issues with it.? He felt like it was not working over the last few days.? The last 2 days his sugars have been reading high.? He checked her sugar this morning and it was just reading is high.? Patient states that he just feels rundown.? Does not have any energy.? He denies any headache or change in vision.? No focal weakness.? No fevers or chills.? No chest pain or shortness of breath.? Abdominal pain or vomiting.? No diarrhea. Patient is findings consistent with acute DKA.? Patient is severely hyperglycemic, elevated anion gap as well as mild acetone.? Patient continued on fluid resuscitation and insulin drip.? Patient be admitted to the hospital for further evaluation and treatment. (above as per ER physician) [facility] Medical History (Updated 10/30/21 @ 16:37 by JUANY Beck) CAD (coronary artery disease) GERD (gastroesophageal reflux disease) Hyperlipidemia Hypertension Hypothyroidism Insulin pump fitting or adjustment Type 1 diabetes mellitus with diabetic polyneuropathy Surgical History H/O bilateral hip replacements H/O thyroidectomy History of total right knee replacement (TKR) Total knee replacement status Family History No significant family history Social History Smoking Status: Never smoker alcohol intake: never current occupational status: retired Travel in the last 8 weeks: None Review of Systems Review of Systems Review of systems:: unable to obtain Constitutional Constitutional: Denies headache(s) and Reports weakness ENT Ears, Nose, Mouth, and Throat: Denies headache(s) *Neurologic Neurologic: Denies headache(s) and Reports weakness Meds Home Medications and Allergies Home Medications Medication Instructions Recorded Confirmed Type clopidogrel 75 mg tablet 75 mg PO DAILY HEART 04/26/19 10/30/21 History furosemide 40 mg tablet 40 mg PO DAILY Fluid 04/26/19 10/30/21 History hydroxychloroquine 200 mg tablet 200 mg PO DAILY Cholesterol 04/26/19 10/30/21 History levothyroxine 125 mcg tablet 125 mcg PO DAILY THYROID 04/26/19 10/30/21 History rosuvastatin 20 mg tablet 20 mg PO DAILY Cholesterol 04/26/19 10/30/21 History tamsulosin 0.4 mg capsule 0.4 mg PO HS BPH 04/26/19 10/30/21 History tizanidine 4 mg capsule 4 mg PO DAILYP PRN PAIN 04/26/19 10/30/21 History lancets 33 gauge (BD Ultra Fine #100 ea 02/04/20 10/30/21 History Lancets) lisinopril 2.5 mg tablet 2.5 mg PO DAILY High blood pressure 02/04/20 10/30/21 History nitroglycerin 0.4 mg sublingual 0.4 mg sublingual Q5M PRN Chest 02/04/20 10/30/21 History tablet Pain sucralfate 1 gram tablet (Carafate) 1 g PO BID GERD 02/04/20 10/30/21 History sumatriptan succinate 6 mg/0.5 mL 6 mg SQ NEEDED PRN Headache 02/04/20 10/30/21 History subcutaneous solution (Imitrex) allopurinol 100 mg tablet 100 mg PO DAILY gout 04/15/20 10/30/21 History duloxetine 60 mg capsule,delayed 60 mg PO DAILY unknown 04/15/20 10/30/21 History release fluticasone propionate 50 2 spray intranasal ONCE unknown 04/15/20 10/30/21 History mcg/actuation nasal spray,suspension gabapentin 600 mg tablet 1,200 mg PO ONCE unknown 04/15/20 10/30/21 History potassium chloride 10 mEq 10 meq PO DAILY Supplement 04/15/20 10/30/21 History tablet,extended release trazodone 150 mg tablet 150 mg PO HS sleep 04/15/20 10/30/21 History ciclopirox 0.77 % topical gel 1 applic topical ONCE toenail 06/10/20 10/30/21 Rx fungus 90 days #100 grams erythromycin 5 mg/gram (0.5 %) eye 1 applic oph
[2021-10-30 17:21] LABS: Glucose,Random 726 mg/dL (74-100)
[2021-10-30 17:58] LABS: Chloride 97 mmol/L (98-107); Potassium 3.5 mmoL/L (3.5-5.1); Sodium 132 mmol/L (136-145)
[2021-10-30 18:01] LABS: Anion Gap 16.5 mEq/L (5-15); Blood Urea Nitrogen 68 mg/dl (9-20); Carbon Dioxide 22 mmol/L (22.0-30.0); Creatinine Clearance Estimated 40 mL/min (50-200); Estimated Glomerular Filt Rate 30 ml/min (>60); GFR (African American) 36 ML/MIN (>60)
[2021-10-30 18:04] LABS: Lactic Acid 2.1 mmol/L (0.7-2.1)
[2021-10-30 18:07] LABS: POC Glucose,Bedside 567 (70-110)
[2021-10-30 18:11] LABS: Glucose 644 mg/dl (74-100)
--- NOTE | 2021-10-30 20:00 | PC.NURSE ---
1999 dopamine drip decreased to 20mcg/kg/min for sbp 126; map 80
--- NOTE | 2021-10-30 21:00 | PC.NURSE ---
2100 dopamine decreased to 18mcg/kg/min for sbp 113; map 73
[2021-10-30 21:16] LABS: Reflex Lactic Add Lactic Reflex
[2021-10-30 21:24] LABS: Chloride 100 mmol/L (98-107); Sodium 136 mmol/L (136-145)
[2021-10-30 21:27] LABS: Blood Urea Nitrogen 61 mg/dl (9-20); Creatinine Clearance Estimated 44 mL/min (50-200); Estimated Glomerular Filt Rate 33 ml/min (>60); GFR (African American) 41 ML/MIN (>60)
[2021-10-30 21:28] LABS: Calcium 8.2 mg/dl (8.4-10.2); Carbon Dioxide 24 mmol/L (22.0-30.0)
[2021-10-30 21:30] LABS: Glucose 406 mg/dl (74-100); Lactic Acid Follow Up (RFLX 1) 2.3 mmol/L (0.7-2.1)
[2021-10-30 21:34] LABS: Acetone, Serum (Rapid) None Detected (None Detect)
--- NOTE | 2021-10-30 22:00 | PC.NURSE ---
2200 pt assisted with urinal, noted that pt is very unsteady and difficulty with sitting on side of bed, pt was assisted with urinal laying in bed due to weakness noted, pt with uncontrollable movements noted in arms and upper torso, pt is alert to name, bd, year, and place with some mild confusion noted. pt voided without difficulty, urine sent to lab for testing.
[2021-10-30 22:25] LABS: Reflex Lactic (2 hrs) Add Lactic Reflex
[2021-10-30 22:52] LABS: Appearance,Urine CLEAR (Clear); Bilirubin,Urine Negative (Negative); Blood, Urine Negative (Negative); Color,Urine YELLOW (Yellow); Glucose,Urine (UA) 2+ (Negative); Ketones,Urine TRACE (Negative); Leukocyte Esterase,Urine Negative (Negative); Microscopic, Urine URINE MICROSCOPIC (MICROSCOPIC); Nitrate,Urine Negative (Negative); PH,Urine 5.5 (5.0-8.5); Protein,Urine Negative (Negative); Urobilinogen,Urine 0.2 EU/dl (0.2)
[2021-10-30 23:04] LABS: Squamous Epithelial Cell,Urine Occasional #/hpf (0-5); WBC,Urine Occasional #/hpf (0-3)
[2021-10-30 23:43] LABS: Lactic Acid Follow up (RFLX 2) 2.5 mmol/L (0.7-2.1)
[2021-10-30 23:57] LABS: POC Glucose,Bedside 399 (70-110)
[2021-10-30 23:57] LABS: POC Glucose,Bedside 396 (70-110)
[2021-10-30 23:57] LABS: POC Glucose,Bedside 295 (70-110)
[2021-10-30 23:57] LABS: POC Glucose,Bedside 487 (70-110)
[2021-10-31] VITALS (17 sets, daily range): BP systolic 88–137; BP diastolic 48–65; PULSE 70–89; RESP 12–21; TEMP 36.6–37.2; O2SAT 95–100; BMI 27.6
--- NOTE | 2021-10-31 00:35 | PC.NURSE ---
fsbs at 1235am was 140; insulin drip decreased to 12.5 units/hr; d5ns w/20kcl started at 125/hr per protocol; pt stable and alert and oriented at this time.
--- NOTE | 2021-10-31 02:00 | PC.NURSE ---
0200 dopamine increased to 17mcg/kg/min for sbp 88 and map 61
--- NOTE | 2021-10-31 02:26 | PC.NURSE ---
fsbs 82 at this time, insulin drip decreased to 1 unit/hr; d5ns w/20kcl infusing at 125; no acute distress noted, pt is resting alert and oriented and arousable to name calling.
[2021-10-31 03:23] LABS: POC Glucose,Bedside 93 (70-110)
[2021-10-31 03:23] LABS: POC Glucose,Bedside 140 (70-110)
[2021-10-31 03:23] LABS: POC Glucose,Bedside 138 (70-110)
--- NOTE | 2021-10-31 04:33 | PC.NURSE ---
noted b/p 139/66; hr 83; dopamine decreased to 15mcg/kg/min
--- NOTE | 2021-10-31 05:00 | PC.NURSE ---
0500 noted b/p 122/59 with map 80, continued to titrate dopamine and decreased to 12mcg/kg/min
[2021-10-31 05:33] LABS: Basophils % 0.3 % (0.1-2.0); Eosinophils # 0.1 K/mm3 (0.0-0.4); Eosinophils % 0.9 % (0.1-12.0); Hematocrit 37.3 % (42.0-52.0); Hemoglobin 12.7 g/dL (14.1-18.0); Lymphocytes # 0.5 K/mm3 (0.7-4.5); Lymphocytes % 5.7 % (10-50); Mean Corpuscular Hemoglobin 27.9 pg (27.0-31.2); Mean Corpuscular Volume 82.1 fl (80-94); Mean Platelet Volume 7.2 fl (7.4-10.4); Monocytes # 0.7 K/mm3 (0.1-1.0); Monocytes % 7.2 % (1.7-9.3); Neutrophils # 7.9 K/mm3 (1.8-7.8); Neutrophils % 85.9 % (37.0-80.0); Platelet Count 192 K/mm3 (142-424); Red Blood Count 4.54 M/mm3 (4.60-6.20); Red Cell Distribution Width 15.8 % (11.5-17.5); White Blood Count 9.3 K/mm3 (4.8-10.8)
[2021-10-31 05:34] LABS: MANUAL DIFFERENTIAL MANUAL DIFFERENTIAL (MANUAL DIFF)
[2021-10-31 05:37] LABS: Chloride 106 mmol/L (98-107); Sodium 139 mmol/L (136-145)
[2021-10-31 05:38] LABS: Acetone, Serum (Rapid) None Detected (None Detect); Potassium 4.4 mmoL/L (3.5-5.1)
[2021-10-31 05:40] LABS: Blood Urea Nitrogen 52 mg/dl (9-20); Creatinine Clearance Estimated 49 mL/min (50-200); Estimated Glomerular Filt Rate 38 ml/min (>60); GFR (African American) 46 ML/MIN (>60)
[2021-10-31 05:41] LABS: Anion Gap 12.4 mEq/L (5-15); Calcium 8.1 mg/dl (8.4-10.2); Carbon Dioxide 25 mmol/L (22.0-30.0)
[2021-10-31 05:42] LABS: Glucose 109 mg/dl (74-100)
[2021-10-31 05:45] LABS: Eosinophils % 3 % (0-3); Lymphocytes % 6 % (10-50); Monocytes % 2 % (2-9); Neutrophils % 83 % (42-76); Platelet Estimate Normal; RBC Morphology Normal; Total Cells Counted 100
--- NOTE | 2021-10-31 05:55 | PC.NURSE ---
pt has slept most of the night, pt is arousable to name, pt is alert to name, place and bd, but had to be reminded of year, pt is drowsy and hard to stay alert and awake when not being disturbed, pt was noted to be very unsteady and weak when attempting to sit up on side of bed to urinate, pt was noted to have uncontrolled movements in arms when trying to grap things or reach for things, insulin drip remains at 1unit/hr with pt fsbs at 103; last acetone check at 9pm was none detected, gap was 12, dr leal was notified, dopamine decreased to 10mcg/kg/min with sbp >100 and maps >65; no other issues or concerns noted at this time, pt remains stable
[2021-10-31 06:41] LABS: POC Glucose,Bedside 141 (70-110)
[2021-10-31 06:41] LABS: POC Glucose,Bedside 84 (70-110)
[2021-10-31 06:41] LABS: POC Glucose,Bedside 103 (70-110)
--- NOTE | 2021-10-31 06:50 | PC.NURSE ---
dopamine drip decreased to 8mcg/kg/min for sbp 104-107 and maps 79-81; pt more alert and talking at this time. insulin drip remains at 1unit/hr
--- NOTE | 2021-10-31 08:55 | EXP.ACUTE.PN ---
Subjective *Date: 10/31/21 *Time: 09:10 Interval history: Patient is feeling better this morning. He is much more awake and alert. He states he thinks his insulin pump has been malfunctioning for the past 5 to 7 days. During that time he only took 1 shot of insulin. He has had a cough as well. Of note, he did have COVID last month and is still testing positive. His blood pressure has improved and he remains on a dopamine drip. His glucose has improved as well. Medical Exam Vital signs and Labs for Last 24 Hours: Temp Pulse Resp BP Pulse Ox 98.8 F 83 16 120/57 L 98 10/31/21 08:00 10/31/21 06:00 10/31/21 06:00 10/31/21 06:00 10/31/21 06:00 Laboratory Results - last 24 hr 10/30/21 08:28: Specimen Source Right radial, O2 % Room air, ABG pH 7.25 L, ABG pCO2 34.6 L, ABG pO2 89.3, ABG HCO3 14.8 L, ABG Total CO2 15.9 L, ABG O2 Saturation 95, ABG Base Excess -12.4 L, Evaristo Test Acceptable 10/30/21 08:35: Total Counted 100, Neutrophils % (Manual) 88 H, Lymphocytes % (Manual) 3 L, Monocytes % (Manual) 9, Platelet Estimate Normal, Hypochromasia 1+ 10/30/21 08:35: Sodium 130 L, Potassium 5.8 H, Chloride 87 L, Carbon Dioxide 14 L, Anion Gap 34.8 H, BUN 59 H, Creatinine 2.20 H, Estimated Creat Clear 40, Estimated GFR 30 L, Est GFR ( Amer) 36 L, Glucose 1052 H*, Calcium 8.5, Total Bilirubin 1.7 H, AST 38, ALT 31, Alkaline Phosphatase 139 H, Troponin I < 0.01, Total Protein 6.3, Albumin 3.7, Globulin 2.6, Albumin/Globulin Ratio 1.4, Lipase 33, Acetone Level Moderate 10/30/21 10:00: SARS-CoV-2 (PCR) Detected A, Influenza A Untype (PCR) Not detected, Influenza Type B (PCR) Not detected 10/30/21 10:45: Troponin I 0.01 10/30/21 10:45: Random Glucose 1030 H* 10/30/21 13:20: Random Glucose 888 H* 10/30/21 14:40: Troponin I 0.02 10/30/21 16:14: Random Glucose 726 H* 10/30/21 17:47: Sodium 132 L, Potassium 3.5 D, Chloride 97 L, Carbon Dioxide 22, Anion Gap 16.5 H, BUN 68 H, Creatinine 2.20 H, Estimated Creat Clear 40, Estimated GFR 30 L, Est GFR ( Amer) 36 L, Glucose 644 H* D, Calcium 8.0 L 10/30/21 17:47: Lactate 2.1 10/30/21 18:00: POC Glucose 567 H* 10/30/21 19:50: POC Glucose 487 H* 10/30/21 21:02: POC Glucose 396 H* 10/30/21 21:12: Sodium 136, Potassium 3.0 L, Chloride 100, Carbon Dioxide 24, Anion Gap 15.0, BUN 61 H, Creatinine 2.00 H, Estimated Creat Clear 44, Estimated GFR 33 L, Est GFR ( Amer) 41 L, Glucose 406 H* D, Calcium 8.2 L 10/30/21 21:12: Acetone Level None detected 10/30/21 21:12: Lactate 2.3 H 10/30/21 22:13: POC Glucose 399 H* 10/30/21 22:47: Urine Color Yellow, Urine Appearance Clear, Urine pH 5.5, Ur Specific [place] 1.020, Urine Protein Negative, Urine Glucose (UA) 2+, Urine Ketones Trace, Urine Blood Negative, Urine Nitrate Negative, Urine Bilirubin Negative, Urine Urobilinogen 0.2, Ur Leukocyte Esterase Negative, Urine RBC None, Urine WBC Occasional, Ur Squamous Epith Cells Occasional, Urine Bacteria None 10/30/21 23:06: POC Glucose 295 H 10/30/21 23:07: Lactate 2.5 H 10/31/21 00:35: POC Glucose 140 H 10/31/21 01:28: POC Glucose 138 H 10/31/21 03:01: POC Glucose 93 10/31/21 04:21: POC Glucose 84 10/31/21 05:15: WBC 9.3 D, RBC 4.54 L, Hgb 12.7 L, Hct 37.3 L, MCV 82.1, MCH 27.9, MCHC 34.0, RDW 15.8, Plt Count 192, MPV 7.2 L, Neut % (Auto) 85.9 H, Lymph % (Auto) 5.7 L, [place] % (Auto) 7.2, Eos % (Auto) 0.9, Baso % (Auto) 0.3, Neut # (Auto) 7.9 H, Lymph # (Auto) 0.5 L, [place] # (Auto) 0.7, Eos # (Auto) 0.1, Baso # (Auto) 0.0, Total Counted 100, Neutrophils % (Manual) 83 H, Band Neutrophils % 6.0, Lymphocytes % (Manual) 6 L, Monocytes % (Manual) 2, Eosinophils % (Manual) 3, Platelet Estimate Normal, RBC Morphology Normal 10/31/21 05:15: Acetone Level None detected 10/31/21 05:15: Sodium 139, Potassium 4.4 D, Chloride 106, Carbon Dioxide 25, Anion Gap 12.4, BUN 52 H, Creatinine 1.80 H, Estimated Creat Clear 49, Estimated GFR 38 L, Est GFR ( Amer) 46 L, Glucose 109 H D, Calcium 8.1 L 10/31/21 05:26: POC Glucose 103 10/31/21
--- NOTE | 2021-10-31 09:14 | PC.NURSE ---
Insulin gtt STOPPED per Dr. Franks.
--- NOTE | 2021-10-31 13:08 | P.CONPHA_ITS ---
Pharmacy Intervention Comments: MEDICATION RECONCILIATION COMPLETE USING EXTERNAL PHARMACY FILL HISTORY AND PHONE CALL TO [facility].
[2021-10-31 17:01] LABS: POC Glucose,Bedside 174 (70-110)
[2021-10-31 17:01] LABS: POC Glucose,Bedside 346 (70-110)
[2021-10-31 17:01] LABS: POC Glucose,Bedside 401 (70-110)
[2021-10-31 20:28] LABS: POC Glucose,Bedside 328 (70-110)
--- NOTE | 2021-10-31 21:09 | PC.NURSE ---
2100-bp 106/52 (70), held dopamine drip at this time per protocol (was on 2mcg/kg/min)
[2021-11-01] VITALS (15 sets, daily range): BP systolic 129–148; BP diastolic 63–85; PULSE 74–92; RESP 13–24; TEMP 36.5–37.2; O2SAT 95–100; BMI 27.8
--- NOTE | 2021-11-01 08:00 | PC.NURSE ---
pt now on RA with O2 sat high 90s. No resp distress noted.
[2021-11-01 08:22] LABS: Alanine Aminotransferase 35 U/L (12-78); Albumin Level 2.9 g/dl (3.5-5.0); Albumin/Globulin Ratio 1.2 (1.1-1.8); Alkaline Phosphatase 119 U/L (38-126); Anion Gap 11.3 mEq/L (5-15); Aspartate Amino Transferase 53 U/L (17-59); Bilirubin,Total 0.4 mg/dl (0.2-1.3); Blood Urea Nitrogen 27 mg/dl (9-20); Calcium 8.3 mg/dl (8.4-10.2); Carbon Dioxide 25 mmol/L (22.0-30.0); Chloride 104 mmol/L (98-107); Creatinine Clearance Estimated 81 mL/min (50-200); Estimated Glomerular Filt Rate 67 ml/min (>60); GFR (African American) 81 ML/MIN (>60); Globulin 2.5 g/dL (1.3-3.2); Glucose 362 mg/dl (74-100); Potassium 4.3 mmoL/L (3.5-5.1); Sodium 136 mmol/L (136-145); Total Protein,Serum 5.4 g/dl (6.3-8.2)
[2021-11-01 08:23] LABS: Basophils % 0.7 % (0.1-2.0); Eosinophils # 0.3 K/mm3 (0.0-0.4); Eosinophils % 5.6 % (0.1-12.0); Hematocrit 34.9 % (42.0-52.0); Hemoglobin 11.6 g/dL (14.1-18.0); Lymphocytes # 0.5 K/mm3 (0.7-4.5); Lymphocytes % 10.5 % (10-50); Mean Corpuscular HGB Conc 33.2 g/dL (31.8-35.4); Mean Corpuscular Hemoglobin 27.4 pg (27.0-31.2); Mean Corpuscular Volume 82.6 fl (80-94); Mean Platelet Volume 7.5 fl (7.4-10.4); Monocytes # 0.2 K/mm3 (0.1-1.0); Neutrophils # 3.5 K/mm3 (1.8-7.8); Neutrophils % 78.1 % (37.0-80.0); Platelet Count 115 K/mm3 (142-424); Red Blood Count 4.23 M/mm3 (4.60-6.20); White Blood Count 4.4 K/mm3 (4.8-10.8)
[2021-11-01 08:34] LABS: POC Glucose,Bedside 369 (70-110)
--- NOTE | 2021-11-01 10:46 | EXP.ACUTE.PN ---
Subjective *Date: 11/01/21 *Time: 13:00 Interval history: Patient is feeling much better this morning. He slept well and is eating well and wants to go home. His is concerned about his ability to give himself insulin injections as his pump has not been working. He denies any pain this morning but does complain of a congested cough. Medical Exam Vital signs and Labs for Last 24 Hours: Temp Pulse Resp BP Pulse Ox 98.7 F 76 16 138/63 100 11/01/21 08:00 11/01/21 10:00 11/01/21 10:00 11/01/21 10:00 11/01/21 10:00 Laboratory Results - last 24 hr 10/31/21 07:04: POC Glucose 174 H 10/31/21 11:45: POC Glucose 346 H* 10/31/21 16:52: POC Glucose 401 H* 10/31/21 20:19: POC Glucose 328 H* 11/01/21 06:26: POC Glucose 369 H* 11/01/21 08:05: WBC 4.4 L D, RBC 4.23 L, Hgb 11.6 L, Hct 34.9 L, MCV 82.6, MCH 27.4, MCHC 33.2, RDW 16.0, Plt Count 115 L D, MPV 7.5, Neut % (Auto) 78.1, Lymph % (Auto) 10.5, [place] % (Auto) 5.0, Eos % (Auto) 5.6, Baso % (Auto) 0.7, Neut # (Auto) 3.5, Lymph # (Auto) 0.5 L, [place] # (Auto) 0.2, Eos # (Auto) 0.3, Baso # (Auto) 0.0 11/01/21 08:05: Sodium 136, Potassium 4.3, Chloride 104, Carbon Dioxide 25, Anion Gap 11.3, BUN 27 H D, Creatinine 1.10 D, Estimated Creat Clear 81, Estimated GFR 67, Est GFR ( Amer) 81 D, Glucose 362 H, Calcium 8.3 L, Total Bilirubin 0.4, AST 53 D, ALT 35, Alkaline Phosphatase 119, Total Protein 5.4 L, Albumin 2.9 L, Globulin 2.5, Albumin/Globulin Ratio 1.2 I & O for Labs for Last 24 Hours: Intake & Output 10/29/21 10/30/21 10/31/21 11/01/21 11:59 11:59 11:59 11:59 Intake Total 3481 / 3481 2776 / 2776 Output Total 950 / 950 2049 / 2049 Balance 2531 / 2531 726 / 726 Weight 190 lb 193 lb 4.045 oz 194 lb 7.163 oz Constitutional: Present no acute distress Respiratory: Present rales (bibasilar) Cardiac: Present Reg Rate and Rhythm GI: Present soft and distention; Absent tenderness or guarding Extremities: Present edema (bilateral LE's) Neuro: Present alert and awake Assessment and Plan *Assessment and plan (1) Diabetic ketoacidosis: Status: Acute Category: Medical Code(s): E11.10 - Type 2 diabetes mellitus with ketoacidosis without coma (2) Hypotension: Status: Acute Category: Medical Code(s): I95.9 - Hypotension, unspecified (3) COVID-19: Status: Acute Category: Medical Code(s): U07.1 - COVID-19 (4) Type 1 diabetes mellitus with diabetic polyneuropathy: Status: Chronic Category: Medical Code(s): E10.42 - Type 1 diabetes mellitus with diabetic polyneuropathy (5) Hypothyroidism: Status: Chronic Category: Medical Code(s): E03.9 - Hypothyroidism, unspecified (6) Hypertension: Status: Chronic Category: Medical Code(s): I10 - Essential (primary) hypertension (7) Hyperlipidemia: Status: Chronic Category: Medical Code(s): E78.5 - Hyperlipidemia, unspecified (8) GERD (gastroesophageal reflux disease): Status: Chronic Category: Medical Code(s): K21.9 - Gastro-esophageal reflux disease without esophagitis (9) CAD (coronary artery disease): Status: Chronic Category: Medical Code(s): I25.10 - Atherosclerotic heart disease of [place] coronary artery without angina pectoris Plan Renal function has normalized. Patient's glucose is elevated this morning and has been as high as 401 last night. Will stop his IV fluids today. At this point he is only on sliding scale insulin. Will likely need Lantus added as well and he will need prescriptions for basal and bolus insulin upon discharge. We will get a chest x-ray today due to new rales in the lung bases. I have spoken with his nurse this morning and she is going to educate the patient and his on sliding scale insulin injections. Saw patient, agree with above note. Spoke to he and his about using basal bolus insulin until pump issue
--- NOTE | 2021-11-01 10:49 | XR_ITS ---
PROCEDURE INFORMATION: Exam: XR Chest Exam date and time: 11/01/2021 11:29 AM Age: 65 years old Clinical indication: Shortness of breath; Additional info: Rales lung bases, history of covid TECHNIQUE: Imaging protocol: Radiologic exam of the chest. Views: 1 view. COMPARISON: CR XR CHEST PORTABLE 10/30/2021 8:48 AM FINDINGS: Lungs: Interstitial prominence and trace basilar airspace disease. Pleural spaces: Questionable small pleural effusions. Heart/Mediastinum: No cardiomegaly. Bones/joints: Mild degenerative change. IMPRESSION: Interstitial prominence and trace basilar airspace disease.
[2021-11-01 16:40] LABS: POC Glucose,Bedside 227 (70-110)
--- NOTE | 2021-11-01 18:59 | PC.NURSE ---
pt has diuresed 3425mL of urine this shift. He did receive Lasix po.
[2021-11-02] VITALS (7 sets, daily range): BP systolic 98–118; BP diastolic 55–68; PULSE 76–101; RESP 13–23; TEMP 36.7–36.8; O2SAT 92–95; BMI 27.1
--- NOTE | 2021-11-02 04:30 | PC.NURSE ---
got pt up to chair, pt c/o back was hurting so gave pt prn tylenol as well, pt rested well this shift, VSS, pt using urinal with adequate UOP, pt's fsbs 200 before bed 2 units insulin given per protocol, call light within reach
[2021-11-02 06:23] LABS: POC Glucose,Bedside 200 (70-110)
[2021-11-02 06:23] LABS: POC Glucose,Bedside 183 (70-110)
--- NOTE | 2021-11-02 11:14 | EXP.PN ---
Subjective *Date: 11/04/21 *Time: 20:52 Interval history: Patient is feeling better today and is ready for discharge. He has ambulated in the room without difficulty. Chest x-ray repeated yesterday showed interstitial prominence and trace basilar airspace disease. He has continued with sliding scale insulin. He is voiding QS. Nurses have been working with him with diabetic teaching. He eats 25 to 50% of his meals. He denies chest pain and shortness of breath. Exam Data for Last 24 hours Vital signs and Labs for Last 24 Hours: Temp Pulse Resp BP Pulse Ox 98.0 F 76 23 118/67 94 L 11/02/21 08:00 11/02/21 10:00 11/02/21 06:00 11/02/21 10:00 11/02/21 10:00 Laboratory Results - last 24 hr 11/01/21 16:30: POC Glucose 227 H 11/01/21 20:34: POC Glucose 200 H 11/02/21 06:06: POC Glucose 183 H I & O for Last 24 hours: Intake & Output 10/30/21 10/31/21 11/01/21 11/02/21 11:59 11:59 11:59 11:59 Intake Total 3481 / 3481 2776 / 2776 600 / 600 Output Total 950 / 950 2050 / 2050 5950 / 5950 Balance 2531 / 2531 726 / 726 -5350 / -5350 Weight 190 lb 193 lb 4.045 oz 194 lb 7.163 oz 189 lb 6.4 oz Constitutional Constitutional: no acute distress Comments: Sitting up in a chair and appears comfortable *Routine Respiratory Exam Respiratory: Present crackles (Scattered throughout posteriorly) *Routine Cardiovascular Exam Cardiovascular: Present RRR *Routine Abdominal Exam Abdominal: Present soft and normoactive bowel sounds; Absent tenderness or distended *Routine Extremities Exam Extremities: Absent edema or calf tenderness *Routine Neurological Exam Neurological: Present alert and oriented X3 Assessment and Plan *Assessment and plan (1) Diabetic ketoacidosis: Status: Acute Category: Medical Code(s): E11.10 - Type 2 diabetes mellitus with ketoacidosis without coma (2) Type 1 diabetes mellitus with diabetic polyneuropathy: Status: Chronic Category: Medical Code(s): E10.42 - Type 1 diabetes mellitus with diabetic polyneuropathy (3) Acute kidney injury: Status: Acute Category: Medical Code(s): N17.9 - Acute kidney failure, unspecified (4) Hypotension: Status: Acute Category: Medical Code(s): I95.9 - Hypotension, unspecified (5) COVID-19: Status: Acute Category: Medical Code(s): U07.1 - COVID-19 (6) Hypothyroidism: Status: Chronic Category: Medical Code(s): E03.9 - Hypothyroidism, unspecified (7) Hypertension: Status: Chronic Category: Medical Code(s): I10 - Essential (primary) hypertension (8) Hyperlipidemia: Status: Chronic Category: Medical Code(s): E78.5 - Hyperlipidemia, unspecified (9) GERD (gastroesophageal reflux disease): Status: Chronic Category: Medical Code(s): K21.9 - Gastro-esophageal reflux disease without esophagitis (10) CAD (coronary artery disease): Status: Chronic Category: Medical Code(s): I25.10 - Atherosclerotic heart disease of [place] coronary artery without angina pectoris Plan Patient to be discharged to home. See discharge orders. Patient seen and examined. Concur with above. DKA and hypotension have resolved. He is eager for discharge. He will be placed on basal bolus insulin therapy until he can f/u with his assurance senior and figure out his pump issue. He is quite comfortable with giving his own insulin injections. /Dr. Davis
--- NOTE | 2021-11-02 11:22 | PC.NURSE ---
during am assessment, pt was directed on how to draw up insulin. pt states that he had previously been instructed on administration of home insulin as well.
--- NOTE | 2021-11-08 22:11 | EXP.DC.SUM ---
General Admission date:: 10/30/21 Discharge date: 11/02/21 HPI HPI HPI: This is a 65-year-old male with a longstanding history of diabetes presented to the emergency department with some generalized weakness.? The patient has an insulin pump installed, however states that he has been having some issues with it.? He felt like it was not working over the last few days.? The last 2 days his sugars have been reading high.? He checked her sugar this morning and it was just reading is high.? Patient states that he just feels rundown.? Does not have any energy.? He denies any headache or change in vision.? No focal weakness.? No fevers or chills.? No chest pain or shortness of breath.? Abdominal pain or vomiting.? No diarrhea. Patient is findings consistent with acute DKA.? Patient is severely hyperglycemic, elevated anion gap as well as mild acetone.? Patient continued on fluid resuscitation and insulin drip.? Patient be admitted to the hospital for further evaluation and treatment. (above as per ER physician) Hospital Course Hospital Course Hospital Course: The patient was admitted and started on a dopamine as well as an insulin drip. His blood pressures did improve slightly. His COVID test was positive, but he had apparently been positive for quite some time. He was initially poorly responsive, but did awaken by 10/31/2021. He stated he thought his insulin pump had been malfunctioning for approximately 5 to 7 days. During that time he had only taken 1 shot of insulin. His blood pressure and glucose both improved. His creatinine also improved. His acetone cleared and his insulin drip was discontinued. His biggest complaint was that he was unable to urinate and normally took Flomax, this was therefore restarted. By 11/01/2021, he was feeling much better and wanted to go home. His was concerned about his ability to give himself insulin injections as his pump had not been working. His IV fluids were discontinued and his renal function normalized. Basal bolus insulin was discussed with the patient and his until pump issues could be addressed by his channel man. He did have a chest x-ray due to some rales in his lung bases. It showed interstitial markings, therefore he was given 1 dose of Lasix. His Lantus was increased and he was continued on sliding scale insulin. By 11/02/2021, he was felt stable to discharge. The nurses have been working with him with diabetic teaching. He denied any chest pain or shortness of breath. He was placed on basal bolus insulin therapy and will follow up with his channel man. Exam Data for Last 24 hours Vital signs and Labs for Last 24 Hours: Temp Pulse Resp BP Pulse Ox 98.0 F 76 23 118/67 94 L 11/02/21 08:00 11/02/21 10:00 11/02/21 06:00 11/02/21 10:00 11/02/21 10:00 Narrative: Constitutional Comments: Patient can only stay awake for short intervals and then falls asleep, lethargic *Routine HEENT Exam Head: Present normocephalic and atraumatic Eye: Present EOMI and PERRL ENT: Present mucous membranes dry *Routine Neck Exam Neck: Present supple and full ROM *Routine Respiratory Exam Respiratory: Present CTA bilaterally *Routine Cardiovascular Exam Cardiovascular: Present RRR and tachycardia *Routine Abdominal Exam Abdominal: Present soft and normoactive bowel sounds; Absent tenderness *Routine Rectal Exam Rectal:: deferred *Routine Genitalia Exam Genitalia:: deferred *Routine Extremities Exam Extremities: Absent cyanosis, clubbing or edema *Routine Skin Exam Skin: Present intact; Absent erythema *Routine Neurological Exam Neurological: Present altered mental status DS: Diagnosis Discharge Diagnosis (1) Diabetic ketoacidosis: Status: Resolved (2) Type 1 diabetes mellitus with diabetic polyneuropathy: Status: Chronic (3) Acute kidney injury: Status: Resolved (4) Hypotension: Status: Resolved (5) Hypothyroidism: Sta
== END 2021-11-02 11:15 | disposition home or self-care (01) | DRG 637 ==
LOC: ER 10:15 → 2ND 10:51
PROVIDERS: Admitting Provider Family Medicine; Emergency Provider Emergency Medicine; PCP Family Medicine; Visit Provider Family Medicine
DX: E10.10 Type 1 diabetes mellitus with ketoacidosis without coma (principal); U07.1 COVID-19; E87.1 Hypo-osmolality and hyponatremia; N17.9 Acute kidney failure, unspecified; I95.9 Hypotension, unspecified; E03.9 Hypothyroidism, unspecified; I10 Essential (primary) hypertension; E78.5 Hyperlipidemia, unspecified; K21.9 Gastro-esophageal reflux disease without esophagitis; I25.10 Atherosclerotic heart disease of native coronary artery without angina pectoris; Z79.4 Long term (current) use of insulin; Z79.01 Long term (current) use of anticoagulants; Z96.41 Presence of insulin pump (external) (internal); Z96.643 Presence of artificial hip joint, bilateral; Z96.651 Presence of right artificial knee joint; E10.42 Type 1 diabetes mellitus with diabetic polyneuropathy
CPT/HCPCS: 36415; 71045; 80048; 80053; 81001; 82009; 82803; 82947; 82962; 83605; 83690; 84484; 85007; 85025; 97010; 97014; 97018; 97110; 97140; 99285; C9803; G0283; U0003; U0005

== ENCOUNTER 2021-11-06 18:05 | Emergency (ER) | payer MEDICARE, OTHER, SELFPAY ==
[2021-11-06 18:29] VITALS: BP 116/69; PULSE 70; RESP 19; TEMP 37.7; O2SAT 98; BMI 29.7
--- NOTE | 2021-11-06 18:40 | EXP.UTC ---
Discharge Plan Disposition Patient Disposition: Home, Self-Care Condition: Good Prescriptions Prescriptions: New cefdinir 300 mg capsule 300 mg PO BID Qty: 20 0RF No Action lisinopril 2.5 mg tablet 2.5 mg PO HS nitroglycerin 0.4 mg tablet, sublingual 0.4 mg SUBLINGUAL Q5MINP PRN (Reason: Chest Pain) Rx Instructions: do not exceed 3 doses per episode sucralfate [Carafate] 1 gram tablet 1 g PO ACHS potassium chloride 10 mEq tablet extended release 10 meq PO DAILY fluticasone propionate 50 mcg/actuation spray,suspension 2 spray INTRANASAL DAILY trazodone 150 mg tablet 150 mg PO HS gabapentin 600 mg tablet 600 mg PO TID duloxetine 60 mg capsule,delayed release(DR/EC) 60 mg PO BID allopurinol 100 mg tablet 100 mg PO DAILY moxifloxacin 0.5 % drops 1 drp OPHTHALMIC QID isosorbide mononitrate 30 mg tablet extended release 24 hr 30 mg PO DAILY aspirin [Adult Low Dose Aspirin] 81 mg tablet,delayed release (DR/EC) 81 mg PO DAILY furosemide 40 MG tablet 40 mg PO DAILY clopidogrel 75 MG tablet 75 mg PO DAILY tamsulosin 0.4 MG capsule 0.8 mg PO HS levothyroxine 125 MCG tablet 125 mcg PO DAILYDM hydroxychloroquine 200 MG tablet 400 mg PO DAILY rosuvastatin 20 MG tablet 20 mg PO HS hydrocodone-acetaminophen 5-325 mg tablet 1 tab PO Q8H Label Comments: TAKE 1 TABLET BY MOUTH EVERY 8 HOURS colchicine 0.6 mg tablet 0.6 mg PO DAILY metoprolol succinate 25 mg tablet extended release 24 hr 12.5 mg PO DAILY ciclopirox 0.77 % gel 1 applic TOPICAL WEEKLY Rx Instructions: Apply daily to affected toenail. Smooth with emery board weekly. baclofen 10 mg tablet 10 mg PO BID insulin lispro 100 unit/mL insulin pen See Protocol SQ ACHS Qty: 9 0RF Protocol: Insulin Corrective Med-Dose Regimen Condition: Fingerstick Blood Glucose Dose/Route: Insulin Units Condition: 151-200 mg/dl Dose/Route: 2 units/SQ Condition: 201-250 mg/dl Dose/Route: 5 units/SQ Condition: 251-300 mg/dl Dose/Route: 8 units/SQ Condition: 301-350 mg/dl Dose/Route: 10 units/SQ Condition: 351-400 mg/dl Dose/Route: 12 units/SQ Condition: 401-450 mg/dl Dose/Route: 15 units/SQ Condition: > 450 mg/dl Dose/Route: CALL MD Protocol Text: Medium Intensity Sliding Scale Insulin insulin glargine [Lantus Solostar U-100 Insulin] 100 unit/mL (3 mL) insulin pen 20 unit SQ HS Qty: 6 0RF promethazine-DM 6.25-15 mg/5 mL syrup 5 - 10 ml PO Q6H PRN (Reason: cough) Qty: 118 0RF Referrals Follow up/Referrals: Elijah Serra DO [Primary Care Provider] - See instructions Activity Restrictions/Add. Instructions Additional Instructions/Restrictions: *Monitor Temp, Over the counter Motrin or Tylenol as directed/as needed Tylenol every 4 hours and Motrin every 6 hours (as long as your family doctor has told you that you can take it) for fever or pain. and straight to ER if unable to lower temp less than 101.0 after medication given *Warm salt water gargles may help to soothe the throat *Throat Lozenges? *Warm fluids like tea with honey may help to soothe the throat? *Sleep elevated *Humidifier/Vaporizer Follow up with your Family Doctor for further evaluation and examination *If you did not take Penicillin shot or was unable to, start taking antibiotic immediately and make sure that you take it for the FULL length of time although you should start to feel better in 24-48 hours *change toothbrush and toothpaste 24-48 hours after starting to take antibiotics so you do not reinfect yourself Monitor Temp. Tylenol and/or Ibuprofen as needed. ER if fever is no less than 101 despite alternating Tylenol and Ibuprofen * Encourage fluids, water, Gatorade, powerade, pedialyte if /toddler/or child *Cold fluids, popsicles and ice cream may feel good on hi
[2021-11-06 18:58] LABS: UTC Strep Screen (Rapid) Positive (Negative)
[2021-11-06 19:10] VITALS: BP 116/69; PULSE 70; RESP 19; TEMP 37.7; O2SAT 98
[2021-11-06 19:14] LABS: Adenovirus,PCR Not Detected (NotDetected); Bordetella Pertussis Not Detected (NotDetected); Chlamydophila Pneumoniae, PCR Not Detected (NotDetected); Coronavirus 19, PCR Not Detected (NotDetected); Coronavirus 229E Not Detected (NotDetected); Coronavirus NL63 Not Detected (NotDetected); Coronavirus OC43 Not Detected (NotDetected); Coronovirus HKU1,PCR Not Detected (NotDetected); Human Metapneumovirus Not Detected (NotDetected); Influenza A, PCR Not Detected (NotDetected); Influenza AH1, 2009 Not Detected (NotDetected); Influenza AH1, PCR Not Detected (NotDetected); Influenza AH3,PCR Not Detected (NotDetected); Influenza B, PCR Not Detected (NotDetected); Mycoplasma Pneumoniae, PCR Not Detected (NotDetected); Parainfluenza 1, PCR Not Detected (NotDetected); Parainfluenza 2, PCR Not Detected (NotDetected); Parainfluenza 3, PCR Not Detected (NotDetected); Parainfluenza 4, PCR Not Detected (NotDetected); Respiratory Syncytial Virus Not Detected (NotDetected); Rhinovirus/Enterovirus Not Detected (NotDetected)
== END 2021-11-06 19:10 | disposition home or self-care (01) ==
PROVIDERS: Emergency Provider Nurse Practitioner; PCP Family Medicine
DX: J02.0 Streptococcal pharyngitis (principal); B95.0 Streptococcus, group A, as the cause of diseases classified elsewhere; R05.9 Cough, unspecified; I25.10 Atherosclerotic heart disease of native coronary artery without angina pectoris; Z20.822 Contact with and (suspected) exposure to COVID-19; Z86.16 Personal history of COVID-19; K21.9 Gastro-esophageal reflux disease without esophagitis; E78.5 Hyperlipidemia, unspecified; E89.0 Postprocedural hypothyroidism; E10.42 Type 1 diabetes mellitus with diabetic polyneuropathy; Z79.4 Long term (current) use of insulin; Z79.82 Long term (current) use of aspirin; Z79.899 Other long term (current) drug therapy; Z88.8 Allergy status to other drugs, medicaments and biological substances; Z91.048 Other nonmedicinal substance allergy status; Z96.41 Presence of insulin pump (external) (internal); Z96.643 Presence of artificial hip joint, bilateral; Z96.653 Presence of artificial knee joint, bilateral
CPT/HCPCS: 87581; 87632; 87798; 87880; 99213; C9803; G0463; U0003; U0005

== ENCOUNTER 2021-12-06 04:58 | Inpatient (IN) | payer MEDICARE, OTHER, SELFPAY ==
[2021-12-06] VITALS (21 sets, daily range): BP systolic 75–116; BP diastolic 42–60; PULSE 55–92; RESP 16–22; TEMP 36.1–38.3; O2SAT 90–100; BMI 28.5
--- NOTE | 2021-12-06 05:05 | CT_ITS ---
PROCEDURE INFORMATION: Exam: CTA Head With Contrast, Arteriography Exam date and time: 12/06/2021 6:08 AM Age: 65 years old Clinical indication: Dizziness and giddiness and other: Unsteady gait TECHNIQUE: Imaging protocol: Computed tomographic angiography of the head with contrast. Exam focused on the arteries. 3D rendering (Not supervised by radiologist): MIP and/or 3D reconstructed images were created by the technologist. Radiation optimization: All CT scans at this facility use at least one of these dose optimization techniques: automated exposure control; mA and/or kV adjustment per patient size (includes targeted exams where dose is matched to clinical indication); or iterative reconstruction. Contrast material: ISOVUE 370; Contrast volume: 75 ml; Contrast route: INTRAVENOUS (IV); COMPARISON: CT HEAD/BRAIN WO CON 12/06/2021 6:06 AM FINDINGS: ANTERIOR CIRCULATION: Right internal carotid artery: Intracranial segment is patent with no significant stenosis. No aneurysm. Right middle cerebral artery: No occlusion or significant stenosis. No aneurysm. Right anterior cerebral artery: No occlusion or significant stenosis. No aneurysm. Left internal carotid artery: Intracranial segment is patent with no significant stenosis. No aneurysm. Left middle cerebral artery: No occlusion or significant stenosis. No aneurysm. Left anterior cerebral artery: No occlusion or significant stenosis. No aneurysm. POSTERIOR CIRCULATION: Right vertebral artery: No occlusion or significant stenosis. No aneurysm. Left vertebral artery: No occlusion or significant stenosis. No aneurysm. Basilar artery: No occlusion or significant stenosis. No aneurysm. Right posterior cerebral artery: No occlusion or significant stenosis. No aneurysm. Left posterior cerebral artery: No occlusion or significant stenosis. No aneurysm. Brain: No definite mass, mass effect, or midline shift. Cerebral ventricles: No ventriculomegaly. Bones/joints: 1 cm ovoid lytic area involving the right parietal calvarium. No acute fracture. Soft tissues: Unremarkable. IMPRESSION: 1. No large vessel stenosis or occlusion. 2. Small lytic area, right parietal calvarium.
--- NOTE | 2021-12-06 05:05 | CT_ITS ---
PROCEDURE INFORMATION: Exam: CTA Neck With Contrast Exam date and time: 12/06/2021 6:08 AM Age: 65 years old Clinical indication: Dizziness and giddiness and other: Unsteady gait TECHNIQUE: Imaging protocol: Computed tomographic angiography of the neck with contrast. 3D rendering (Not supervised by radiologist): MIP and/or 3D reconstructed images were created by the technologist. Radiation optimization: All CT scans at this facility use at least one of these dose optimization techniques: automated exposure control; mA and/or kV adjustment per patient size (includes targeted exams where dose is matched to clinical indication); or iterative reconstruction. Contrast material: ISOVUE 370; Contrast volume: 75 ml; Contrast route: INTRAVENOUS (IV); COMPARISON: CT HEAD/BRAIN WO CON 12/06/2021 6:06 AM FINDINGS: Right common carotid artery: No stenosis. No dissection or occlusion. Right internal carotid artery: No stenosis of the extracranial segment. No dissection or occlusion. Right external carotid artery: No occlusion or stenosis of the origin. Left common carotid artery: No stenosis. No dissection or occlusion. Left internal carotid artery: No stenosis of the extracranial segment. No dissection or occlusion. Left external carotid artery: No occlusion or stenosis of the origin. Right vertebral artery: No stenosis. No dissection or occlusion. Left vertebral artery: No stenosis. No dissection or occlusion. Atheromatous calcification involving the aortic arch, bilateral proximal and distal vertebral arteries and both carotid bulbs and intracranial portions. Soft tissues: Normal. No significant soft tissue swelling. Bones/joints: No acute fracture. Lungs: Minor left greater than right dependent atelectasis/airspace disease. IMPRESSION: No evidence of occlusion or significant stenosis. Atheromatous calcifications described above. Minor left greater than right dependent atelectasis/airspace disease. REFERENCES: NASCET CRITERIA. The degree of stenosis in the cervical segment of the internal carotid artery is based on NASCET criteria. Normal is no stenosis. Mild is less than 50% stenosis. Moderate is 50-69% stenosis. Severe is 70% to 99% stenosis. Total occlusion is no detectable patent lumen.
--- NOTE | 2021-12-06 05:05 | XR_ITS ---
PROCEDURE INFORMATION: Exam: XR Chest Exam date and time: 12/06/2021 5:34 AM Age: 65 years old Clinical indication: Cough TECHNIQUE: Imaging protocol: Radiologic exam of the chest. Views: 1 view. COMPARISON: CR XR CHEST PORTABLE 11/01/2021 11:29 AM FINDINGS: Lungs: Left basilar airspace opacity. No consolidation. Pleural spaces: Unremarkable. No pleural effusion. No pneumothorax. Heart/Mediastinum: Unremarkable. No cardiomegaly. Bones/joints: Unremarkable. IMPRESSION: Left basilar airspace opacity may represent early infiltrate
--- NOTE | 2021-12-06 05:05 | CT_ITS ---
PROCEDURE INFORMATION: Exam: CT Head Without Contrast Exam date and time: 12/06/2021 6:06 AM Age: 65 years old Clinical indication: Altered mental status/memory loss; Confusion or disorientation; Additional info: AMS TECHNIQUE: Imaging protocol: Computed tomography of the head without contrast. Radiation optimization: All CT scans at this facility use at least one of these dose optimization techniques: automated exposure control; mA and/or kV adjustment per patient size (includes targeted exams where dose is matched to clinical indication); or iterative reconstruction. COMPARISON: CT HEAD/BRAIN WO CON 01/24/2021 12:35 PM FINDINGS: Brain: There is diffuse prominence of the cerebral sulci, cisterns, and ventricles consistent with atrophy. No intra or extra-axial fluid collections are noted. No mass or mass effect is seen. Periventricular white matter hypoattenuation is seen consistent with small vessel chronic ischemic changes. Cerebral ventricles: No ventriculomegaly. Paranasal sinuses: Visualized sinuses are unremarkable. No fluid levels. Mastoid air cells: Visualized mastoid air cells are well aerated. Bones/joints: Unremarkable. No acute fracture. Soft tissues: Unremarkable. IMPRESSION: No acute process noted.
--- NOTE | 2021-12-06 05:07 | HMH.EDGENADL ---
Discharge Plan Disposition Patient Disposition: Admitted As Inpatient Condition: Fair Chief Complaint: Weakness Prescriptions Prescriptions: No Action lisinopril 2.5 mg tablet 2.5 mg PO HS nitroglycerin 0.4 mg tablet, sublingual 0.4 mg SUBLINGUAL Q5MINP PRN (Reason: Chest Pain) Rx Instructions: do not exceed 3 doses per episode sucralfate [Carafate] 1 gram tablet 1 g PO ACHS potassium chloride 10 mEq tablet extended release 10 meq PO DAILY fluticasone propionate 50 mcg/actuation spray,suspension 2 spray INTRANASAL DAILY trazodone 150 mg tablet 150 mg PO HS gabapentin 600 mg tablet 600 mg PO TID duloxetine 60 mg capsule,delayed release(DR/EC) 60 mg PO BID allopurinol 100 mg tablet 100 mg PO DAILY moxifloxacin 0.5 % drops 1 drp OPHTHALMIC QID isosorbide mononitrate 30 mg tablet extended release 24 hr 30 mg PO DAILY aspirin [Adult Low Dose Aspirin] 81 mg tablet,delayed release (DR/EC) 81 mg PO DAILY furosemide 40 MG tablet 40 mg PO DAILY clopidogrel 75 MG tablet 75 mg PO DAILY tamsulosin 0.4 MG capsule 0.8 mg PO HS levothyroxine 125 MCG tablet 125 mcg PO DAILYDM hydroxychloroquine 200 MG tablet 400 mg PO DAILY rosuvastatin 20 MG tablet 20 mg PO HS cefdinir 300 mg capsule 300 mg PO BID Qty: 20 0RF hydrocodone-acetaminophen 5-325 mg tablet 1 tab PO Q8H Label Comments: TAKE 1 TABLET BY MOUTH EVERY 8 HOURS colchicine 0.6 mg tablet 0.6 mg PO DAILY metoprolol succinate 25 mg tablet extended release 24 hr 12.5 mg PO DAILY ciclopirox 0.77 % gel 1 applic TOPICAL WEEKLY Rx Instructions: Apply daily to affected toenail. Smooth with emery board weekly. baclofen 10 mg tablet 10 mg PO BID insulin lispro 100 unit/mL insulin pen See Protocol SQ ACHS Qty: 9 0RF Protocol: Insulin Corrective Med-Dose Regimen Condition: Fingerstick Blood Glucose Dose/Route: Insulin Units Condition: 151-200 mg/dl Dose/Route: 2 units/SQ Condition: 201-250 mg/dl Dose/Route: 5 units/SQ Condition: 251-300 mg/dl Dose/Route: 8 units/SQ Condition: 301-350 mg/dl Dose/Route: 10 units/SQ Condition: 351-400 mg/dl Dose/Route: 12 units/SQ Condition: 401-450 mg/dl Dose/Route: 15 units/SQ Condition: > 450 mg/dl Dose/Route: CALL MD Protocol Text: Medium Intensity Sliding Scale Insulin insulin glargine [Lantus Solostar U-100 Insulin] 100 unit/mL (3 mL) insulin pen 20 unit SQ HS Qty: 6 0RF promethazine-DM 6.25-15 mg/5 mL syrup 5 - 10 ml PO Q6H PRN (Reason: cough) Qty: 118 0RF Referrals Follow up/Referrals: Elijah Serra DO [Primary Care Provider] - See instructions Clinical Impressions Clinical Impression: Pneumonia, Acute and chronic respiratory failure with hypoxia, Diabetes mellitus Instructions Patient Instructions: DI for Altered Mental Status Discharge ED Provider: Lucy Trejo General Adult HPI General Chief complaint: Weakness Stated complaint: AMS Time Seen by Provider: 12/06/21 04:59 Mode of Arrival: EMS Source of Information: Patient Limitations: No Limitations History of Present Illness HPI narrative: 65-year-old male presenting to the emergency department with altered mental status. Symptoms started approximately 4 to 5 hours ago. He woke up in the night and tried to walk to go to the bathroom. said he was stumbling and fell, landing on his elbows. No head injury. He seemed confused. Was talking about things he needed to do the next day. called EMS. When EMS arrived he was somewhat confused. Oxygen saturation was 90% on room air. They placed him on 2 L by nasal cannula and transported to the emergency department. He is an insulin-dependent type 1 diabetic. Insulin pump is functioning. Glucose 190. He has had episodes like this before. Was not told of the root cause. Denies history o
--- NOTE | 2021-12-06 05:17 | ECG_ITS ---
APPROVED REPORT Exam: Resting ECG HR:87 bpm ECG Measurements Heart Rate 87 AXES ME 152 P 63 QRSd 118 QRS -44 QT 400 T 80 QTc 445 Conclusion SINUS RHYTHM LEFT AXIS DEVIATION [QRS AXIS < -30] INCOMPLETE RIGHT BUNDLE BRANCH BLOCK [90+ ms QRS DURATION, TERMINAL R IN V1/V2, 40+ ms S IN I/aVL/V4/V5/V6] SEPTAL MYOCARDIAL INFARCTION , PROBABLY OLD [40+ ms Q WAVE IN V1/V2] ABNORMAL ECG UNCONFIRMED REPORT Electronically signed by : Jonnie Santos MD 12/06/2021 21:18:55
[2021-12-06 05:30] LABS: Influenza A, PCR Not Detected (NotDetected); Influenza B, PCR Not Detected (NotDetected)
[2021-12-06 05:30] LABS: VBG Base Excess 2.7 mmol/L (-2.4-2.3); VBG HCO3 27.2 mmol/L (23-30); VBG Oxygen Saturation 62.1 % (50-70); VBG PCO2 42.8 mmol/L (35-51); VBG PH 7.42 mmol/L (7.31-7.41); VBG PO2 33.1 mmol/L (28-40); VBG Total CO2 28.5 mmol/L (23-27)
[2021-12-06 05:31] LABS: Basophils % 0.4 % (0.1-2.0); Eosinophils # 0.4 K/mm3 (0.0-0.4); Eosinophils % 4.9 % (0.1-12.0); Hematocrit 34.7 % (42.0-52.0); Hemoglobin 11.4 g/dL (14.1-18.0); Lymphocytes # 0.4 K/mm3 (0.7-4.5); Lymphocytes % 5.5 % (10-50); Mean Corpuscular HGB Conc 32.9 g/dL (31.8-35.4); Mean Corpuscular Hemoglobin 27.5 pg (27.0-31.2); Mean Corpuscular Volume 83.5 fl (80-94); Mean Platelet Volume 7.7 fl (7.4-10.4); Monocytes # 0.4 K/mm3 (0.1-1.0); Monocytes % 4.7 % (1.7-9.3); Neutrophils # 6.2 K/mm3 (1.8-7.8); Neutrophils % 84.4 % (37.0-80.0); Platelet Count 157 K/mm3 (142-424); Red Blood Count 4.16 M/mm3 (4.60-6.20); Red Cell Distribution Width 16.6 % (11.5-17.5); White Blood Count 7.4 K/mm3 (4.8-10.8)
[2021-12-06 05:39] LABS: Alanine Aminotransferase 12 U/L (12-78); Albumin Level 3.3 g/dl (3.5-5.0); Albumin/Globulin Ratio 1.1 (1.1-1.8); Alkaline Phosphatase 111 U/L (38-126); Anion Gap 9.9 mEq/L (5-15); Aspartate Amino Transferase 24 U/L (17-59); Bilirubin,Total 1.1 mg/dl (0.2-1.3); Blood Urea Nitrogen 18 mg/dl (9-20); Calcium 8.3 mg/dl (8.4-10.2); Carbon Dioxide 32 mmol/L (22.0-30.0); Chloride 98 mmol/L (98-107); Creatinine Clearance Estimated 81 mL/min (50-200); Estimated Glomerular Filt Rate 67 ml/min (>60); GFR (African American) 81 ML/MIN (>60); Globulin 2.9 g/dL (1.3-3.2); Glucose 153 mg/dl (74-100); Magnesium 1.4 mg/dl (1.6-2.3); Potassium 3.9 mmoL/L (3.5-5.1); Sodium 136 mmol/L (136-145); Total Protein,Serum 6.2 g/dl (6.3-8.2)
[2021-12-06 05:48] LABS: NT Pro Brain Natriuretic Pep. 455 pg/mL (0-125)
[2021-12-06 05:52] LABS: Troponin I < 0.01 ng/ml (0.00-0.034)
[2021-12-06 05:54] LABS: Coronavirus 19, PCR Detected (NotDetected)
[2021-12-06 06:45] LABS: Vitamin B12 265 pg/mL (239-931)
[2021-12-06 06:52] LABS: Folate 6.57 ng/mL
--- NOTE | 2021-12-06 07:20 | PC.NURSE ---
Dr Trejo spoke with the hospitalist
--- NOTE | 2021-12-06 07:36 | CT_ITS ---
PROCEDURE INFORMATION: Exam: CT Chest Without Contrast; Diagnostic Exam date and time: 12/06/2021 7:57 AM Age: 65 years old Clinical indication: Shortness of breath; Additional info: Covid +, pneumonia, had a prior cta head and neck- residual contrast from that study TECHNIQUE: Imaging protocol: Diagnostic computed tomography of the chest without contrast. Radiation optimization: All CT scans at this facility use at least one of these dose optimization techniques: automated exposure control; mA and/or kV adjustment per patient size (includes targeted exams where dose is matched to clinical indication); or iterative reconstruction. COMPARISON: CR XR CHEST PORTABLE 12/06/2021 5:34 AM FINDINGS: Lungs: Left lower lobe consolidation. Minor right basal dependent atelectasis/airspace disease. Pleural spaces: Small left pleural effusion with possible pleural calcification. Heart: Unremarkable. No cardiomegaly. No pericardial effusion. Lymph nodes: Unremarkable. No enlarged lymph nodes. Vasculature: Atheromatous aortic calcification. Limited assessment of vascularity without intravenous contrast. Gallbladder and bile ducts: Prior cholecystectomy. Kidneys and ureters: Left renal cyst. Bones/joints: Mild mid upper thoracic spondylosis with convex right scoliosis. Old right 11th rib fracture. Soft tissues: Unremarkable. IMPRESSION: 1. Left lower lobe consolidation. 2. Minor right basal dependent atelectasis/airspace disease. 3. Small left pleural effusion with possible pleural calcification. 4. Limited assessment of vascularity without intravenous contrast. 5. Other nonacute findings above. COMMENTS: Consistent with the [employer]'s Incidental Findings Committee white paper (J Am Rohan Radiol 2018): Any incidental renal lesion less than 1 cm or classified as too small to characterize, or any incidental cystic renal lesion characterized as simple-appearing, is likely benign. No follow-up imaging is recommended for these lesions per consensus recommendations based on imaging criteria.
--- NOTE | 2021-12-06 08:09 | PC.NURSE ---
report called to ariana combs on second floor, states she would send staff to transport pt.
--- NOTE | 2021-12-06 08:21 | EXP.HP ---
History of Present Illness *Admission Date: 12/06/21 *Reason for visit:: Chief complaint: Trouble breathing *History of present illness: This is a 65-year-old male that is accompanied by his of 35 years to [facility] emergency department after experiencing some hypoxia and altered mental status at home early this morning. His past medical history significant for diabetes type 1 with insulin pump, coronary artery disease, HFrEF, GERD with esophageal stricture status-post dilatation 2021, rheumatoid arthritis and gout. He reports that he was hospitalized back in August at [facility] for respiratory distress and COVID. He describes outpatient treatment for pneumonia and recent hospital admission at [facility] for DKA. His is concerned with ongoing cough after his COVID diagnoses and that he chokes with meal consumption. He reports a cough over the past week with associated nasal drainage not improving with home care. He does not use home oxygen. He denies productive cough or hemoptysis. He reports his cough has increased in severity over the last 48 hours and he has identified shortness of air with activity. This morning he went to use the bathroom and fell landing on his elbows. EMS arrived and identified some confusion and O2 sats on room air in the low 90s. His ED glucose on presentation was 190. In the ED he underwent imaging of his brain and CTA of the neck and brain. A chest x-ray identified left lower lobe infiltrate and he was febrile at 101. Identified increased respiratory rate with decreased O2 that improved on oxygen supplementation. His blood pressures were low. He met sepsis criteria. His lactic acid and inflammatory markers were pending at the time of evaluation. His blood pressure is 80/60 with a MAP of 53 and he has been started on 30 cc/kg IV fluid resuscitation. Stat blood cultures have been requested. His COVID?19 PCR came back positive and inflammatory markers have been requested. [facility] Medical History (Updated 12/06/21 @ 09:03 by Kevin Harvey MD) CAD (coronary artery disease) Cellulitis COVID-19 Fall GERD (gastroesophageal reflux disease) Hyperlipidemia Hypertension Hypothyroidism Insulin pump fitting or adjustment Laceration of lower leg Side effects of vaccination Traumatic ecchymosis of ankle Type 1 diabetes mellitus with diabetic polyneuropathy Surgical History H/O bilateral hip replacements H/O thyroidectomy History of total right knee replacement (TKR) Total knee replacement status Family History (Updated 12/06/21 @ 08:31 by Kevin Harvey MD) Mother Coronary artery disease Father COVID-19 Social History (Updated 12/06/21 @ 08:33 by Kevin Harvey MD) Smoking Status: Never smoker alcohol intake: never current occupational status: employed Travel in the last 8 weeks: None household members: spouse housing: house lives independently: Yes marital status: number of children: 5 education level: high school current occupation: [employer] diet: diabetic marianna/muslim: Holiness Review of Systems Review of Systems Review of systems:: pertinent systems reviewed and negative unless documented below Constitutional Constitutional: Denies frequent falls and Denies headache(s) Eyes Eyes: Denies loss of vision ENT Ears, Nose, Mouth, and Throat: Reports disequilibrium, Denies headache(s), Reports nasal congestion and Reports post nasal drip *Cardiovascular Cardiovascular: Denies chest pain with activity, Reports dyspnea and Reports dyspnea on exertion *Respiratory Respiratory: Reports dyspnea, Reports dyspnea on exertion and Denies wheezing *Gastrointestinal Gastrointestinal: Denies nausea and Denies vomiting *Neurologic Neurologic: Denies abnormal speech, Reports confusion, Denies convulsions, Reports disequilibrium, Denies locali
--- NOTE | 2021-12-06 08:22 | PC.NURSE ---
notified dr. calderon (hospitalist) of pt bp 80/60 manually. Verbal order received for Sepsis IVF bolus of 30 ml/kg
[2021-12-06 08:28] LABS: Creatine Kinase 82 U/L (55-170)
--- NOTE | 2021-12-06 08:30 | PC.NURSE ---
sepsis IVF bolus started, second IV started, updated pt and family on POC.
[2021-12-06 08:34] LABS: C-Reactive Protein 106.7 mg/L (0-4); D-Dimer 1.13 ug/mL (0.0-0.5)
--- NOTE | 2021-12-06 08:52 | PC.NURSE ---
patient arrived to floor by wheelchair from ED
--- NOTE | 2021-12-06 08:55 | PC.NURSE ---
updated ariana combs of new order for sepsis fluid bolus r/t low bp, hospitalist gave orders, lactic acid and repeat troponin was drawn with second IV start. Pt last bp was 90 sbp.
[2021-12-06 09:06] LABS: Ferritin 35.8 ng/ml (17.9-464)
[2021-12-06 09:08] LABS: Lactic Acid 0.9 mmol/L (0.7-2.1)
[2021-12-06 09:10] LABS: Lactate Dehydrogenase 218 U/L (313-618)
[2021-12-06 09:28] LABS: Procalcitonin 1.15 ng/mL (0.0-2.0)
[2021-12-06 09:29] LABS: Troponin I < 0.01 ng/ml (0.00-0.034)
--- NOTE | 2021-12-06 10:28 | HMH.SLDYSPHA ---
Speech & Language Evaluation Speech/Language Dysphagia Evaluation Start: 12/06/21 10:12 Freq: ONCE Status: Active Protocol: Document 12/06/21 10:12 PHIL (Rec: 12/06/21 10:28 PHIL [id number]) Dysphagia Assess/Goals/Plan Assessment Date of Evaluation: 12/06/21 Evaluation Type Initial Certification Assessment/Problems Pt assessed by CSE following choking/coughing concerns per MD order. Does Patient Qualify for Service Yes Qualify/Failure Comment Based on results of evaluation and pt concerns, pt qualifies for skilled speech therapy services for further evaluation via MBSS> Recommendations PHYSICIAN CERTIFICATION: The specified therapy services are required, authorized, and reviewed every 30 days. Pt will be seen # times/week 1 for # weeks 4 Diet Recommendations Normal Liquid Type Recommendations Normal/Thin SL Swallow Guidelines Standard Aspiration Prec. Dysphagia Swallow Precautions/Strategies Sitting Upright (90 deg) Comment Pt diabetic, wishes to continue on diet he is currently on until MBSS can be completed 2' diabetes. Plan Anticipate reaching STG in # weeks 1 Anticipate reaching LTG in # weeks 4 Pt/Guardian verbally ack understanding Yes of dx/prognosis/goals G -code Required No STG-Other Comment/Non-Specific Pt will complete MBSS to further evaluate oral and pharyngeal phases of the swallow. [facility] Goals Diet regular with Liquids Thin Liquids Education Instructions provided Discussed assessment results, aspiration & risks of aspiration pna, and MBSS/what it entails to nurse, pt, and pt's --all of which expressed understanding. Pt/Caregiver able to recall information Able to recall/restate Reinforcement needed No Speech & Language HPI History Present Illness Description of Patient Problem Pt is a 65-year-old male that is accompanied by his of 35 years to [facility] emergency department after experiencing some hypoxia and altered mental status at home early this morning. His past
[2021-12-06 11:51] LABS: Troponin I < 0.01 ng/ml (0.00-0.034)
[2021-12-06 12:15] LABS: POC Glucose,Bedside 102 (70-110)
--- NOTE | 2021-12-06 16:24 | PC.NURSE ---
Patient triggered sepsis including hypotention recvd Bolus of NS 2120mL and maintenance fluids of 125/hr. BP WNL. B/L lungs diminished with fine crackles and rhonchi, does clear with coughing. O2 sats > 94% with 2L NC; Patient has been very sleepy with difficulty staying awake, Patient placed on Bipap r/t sleep apnea. Patient is Type I diabetic with insulin pump with BS monitored with his cell phon; he did eat lunch with FSBS WNL. Patient managing insulin as long as A&O. No s/s of acute distress noted, call light WNL, bed at lowest level for safety.
[2021-12-06 18:19] LABS: POC Glucose,Bedside 219 (70-110)
--- NOTE | 2021-12-06 20:34 | PC.NURSE ---
lisinopril held due to hypotension, hospitalist aware
[2021-12-07] VITALS (9 sets, daily range): BP systolic 111–132; BP diastolic 47–96; PULSE 61–93; RESP 16–19; TEMP 36.2–36.7; O2SAT 93–99; BMI 30.2
--- NOTE | 2021-12-07 04:45 | PC.NURSE ---
pt has rested well this shift, has been on 2L NC and then bipap while sleeping, O2 sats 95-99%, SBP have been 101-121, no complaints of SOA or pain, pt did have concerns that insulin pump was empty, hospitalist contacted for sliding scale insulin until pump can be refilled, no other concerns this shift
[2021-12-07 06:25] LABS: POC Glucose,Bedside 365 (70-110)
[2021-12-07 06:58] LABS: Basophils % 0.1 % (0.1-2.0); Eosinophils % 0.1 % (0.1-12.0); Hematocrit 33.5 % (42.0-52.0); Hemoglobin 10.6 g/dL (14.1-18.0); Lymphocytes # 0.2 K/mm3 (0.7-4.5); Mean Corpuscular HGB Conc 31.6 g/dL (31.8-35.4); Mean Corpuscular Hemoglobin 27.2 pg (27.0-31.2); Mean Platelet Volume 7.6 fl (7.4-10.4); Monocytes # 0.1 K/mm3 (0.1-1.0); Monocytes % 2.3 % (1.7-9.3); Neutrophils # 5.2 K/mm3 (1.8-7.8); Neutrophils % 93.4 % (37.0-80.0); Platelet Count 141 K/mm3 (142-424); Red Cell Distribution Width 16.7 % (11.5-17.5); White Blood Count 5.6 K/mm3 (4.8-10.8)
[2021-12-07 07:00] LABS: MANUAL DIFFERENTIAL MANUAL DIFFERENTIAL (MANUAL DIFF)
[2021-12-07 07:07] LABS: Chloride 105 mmol/L (98-107); Potassium 4.7 mmoL/L (3.5-5.1); Sodium 137 mmol/L (136-145)
[2021-12-07 07:10] LABS: Anion Gap 13.7 mEq/L (5-15); Blood Urea Nitrogen 23 mg/dl (9-20); Calcium 7.9 mg/dl (8.4-10.2); Carbon Dioxide 23 mmol/L (22.0-30.0); Creatinine Clearance Estimated 94 mL/min (50-200); Estimated Glomerular Filt Rate 75 ml/min (>60); GFR (African American) 90 ML/MIN (>60); Glucose 358 mg/dl (74-100); Magnesium 2.2 mg/dl (1.6-2.3)
[2021-12-07 07:34] LABS: Lymphocytes % 6 % (10-50); Monocytes % 4 % (2-9); Neutrophils % 90 % (42-76); Total Cells Counted 100
[2021-12-07 07:35] LABS: Platelet Estimate Slight Decrease; RBC Morphology Normal
--- NOTE | 2021-12-07 07:52 | FL_ITS ---
FINAL REPORT CLINICAL HISTORY: .4:13 FLUORO TIME FINDINGS: MODIFIED BARIUM SWALLOW History: Dysphagia FINDINGS: Fluoroscopy was provided for the speech pathologist to evaluate the swallowing mechanism. The patient was given several different consistencies of barium while the swallow was visualized fluoroscopically. The report of the speech pathologist should be consulted prior to making dietary decisions. FLUOROSCOPY TIME: 4 minutes 13 seconds IMPRESSION: Modified barium swallow under fluoroscopic guidance. Please see the report of the speech pathologist for Dietary recommendations. Films reviewed , interpreted and dictated by Dr. Thompson Transcribed by Que Mosley PA-C. Reviewed, Interpreted and Dictated by Darwin Thompson III, MD Transcribed by JUANY Jane Authenticated and . [facility]
--- NOTE | 2021-12-07 08:23 | EXP.PN ---
Subjective *Date: 12/07/21 *Time: 08:23 Interval history: Date of service 12/07/2021 The patient reports that he is feeling better. He reports no acute events overnight. He reports that he is getting up and going to the bathroom with no associated shortness of air. Speech therapy has evaluated the patient and is recommended an MBS. Anabel GIBSON reports that he remains afebrile with improved blood pressures and stable vital signs saturating appropriately on room air. His morning labs have been reviewed and discussed including a normal white blood cell count and creatinine. His inflammatory markers identified normal ferritin normal CK and elevated D-dimer. Exam Data for Last 24 hours Vital signs and Labs for Last 24 Hours: Temp Pulse Resp BP Pulse Ox FiO2 97.2 F L 65 19 121/58 L 97 35 12/07/21 03:58 12/07/21 06:10 12/07/21 03:58 12/07/21 03:58 12/07/21 06:10 12/06/21 18:45 Laboratory Results - last 24 hr 12/06/21 05:23: D-Dimer 1.13 H 12/06/21 05:23: Ferritin 35.8, Lactate Dehydrogenase 218 L, Total Creatine Kinase 82, C-Reactive Protein 106.7 H, Procalcitonin 1.15 12/06/21 08:37: Troponin I < 0.01 12/06/21 08:37: Lactate 0.9 12/06/21 11:20: Troponin I < 0.01 12/06/21 11:24: POC Glucose 102 12/06/21 15:41: POC Glucose 219 H 12/07/21 06:05: POC Glucose 365 H* 12/07/21 06:46: WBC 5.6, RBC 3.90 L, Hgb 10.6 L, Hct 33.5 L, MCV 86.0, MCH 27.2, MCHC 31.6 L, RDW 16.7, Plt Count 141 L, MPV 7.6, Neut % (Auto) 93.4 H, Lymph % (Auto) 4.0 L, [place] % (Auto) 2.3, Eos % (Auto) 0.1, Baso % (Auto) 0.1, Neut # (Auto) 5.2, Lymph # (Auto) 0.2 L, [place] # (Auto) 0.1, Eos # (Auto) 0.0, Baso # (Auto) 0.0, Total Counted 100, Neutrophils % (Manual) 90 H, Lymphocytes % (Manual) 6 L, Monocytes % (Manual) 4, Platelet Estimate Slight decrease, RBC Morphology Normal 12/07/21 06:46: Sodium 137, Potassium 4.7 D, Chloride 105, Carbon Dioxide 23, Anion Gap 13.7, BUN 23 H D, Creatinine 1.00, Estimated Creat Clear 94, Estimated GFR 75, Est GFR ( Amer) 90, Glucose 358 H, Calcium 7.9 L, Magnesium 2.2 D I & O for Last 24 hours: Intake & Output 12/04/21 12/05/21 12/06/21 12/07/21 23:59 23:59 23:59 23:59 Intake Total 3960 / 3960 Output Total 800 / 800 500 / 500 Balance 3160 / 3160 -500 / -500 Weight 87.6 kg 92.76 kg Constitutional Constitutional: no acute distress, obese and cooperative *Routine HEENT Exam Head: Present normocephalic and atraumatic Eye: Present EOMI and PERRL ENT: Present mucous membranes moist *Routine Neck Exam Neck: Present supple and trachea midline; Absent lymphadenopathy *Routine Respiratory Exam Respiratory: Present rhonchi and normal respiratory effort; Absent respiratory distress *Routine Cardiovascular Exam Cardiovascular: Present RRR, Normal S1 and Normal S2; Absent murmur or JVD *Routine Abdominal Exam Abdominal: Present soft and normoactive bowel sounds; Absent tenderness *Routine Extremities Exam Extremities: Present full ROM and normal capillary refill; Absent cyanosis or edema *Routine Skin Exam Skin: Present warm and normal turgor; Absent rash *Routine Neurological Exam Neurological: Present alert, oriented X3, vision grossly intact, hearing grossly intact and normal speech; Absent sensory deficit or motor deficit Routine Psychiatric Exam Psychiatric: Present normal affect, normal thought process, cooperative, good insight and good judgment Assessment and Plan *Assessment and plan (1) Sepsis associated hypotension: Status: Acute Category: Medical Code(s): A41.9 - Sepsis, unspecified organism; I95.9 - Hypotension, unspecified (2) Acute hypoxemic respiratory failure: Status: Acute Category: Medical Code(s): J96.01 - Acute respiratory failure with hypoxia (3) Aspiration pneumonia: Status: Acute Category: Medical Code(s): J69.0 - Pneumonitis due to inhalation of food and vomit (4) COVID-19: Status: Acute Category: Medical
--- NOTE | 2021-12-07 08:34 | HMH.PTEV ---
Physical Therapy Evaluation Rehab PT IP Evaluation Start: 12/07/21 08:22 Freq: ONCE Status: Active Protocol: Document 12/07/21 08:31 YAYA (Rec: 12/07/21 08:33 YAYA [id number]) Subjective/History History History This is the initial IP PT evaluation for Obdulio Gold. Pt is a 65 y/o male admitted to [facility] for COVID+ and pneumonia Subjective Subjective Pt rpeorts willingness to participate w/ therapy - pt UIC upon entering room Rehab PT IP Eval Objective Appearance Patient Behavior Appropriate,Cooperative Patient Orientation Place,Name,Birthday,Year, Situation Difficulty following instructions none Speech Pattern Clear,Appropriate Ambulation Patient Able to Ambulate Yes Ambulation Observation IP General Gait Pattern Observation No Deviations/Normal Ambulation Distance (feet) 75 Ambulation Assistive Device None Ambulation Ability Independent Balance Ability to Arise Able, uses arms to help Sitting Balance Steady, safe Standing Balance Narrow stance w/o support Dynamic Sitting Balance Ability Normal Dynamic Standing Balance Ability Good Transfers Chair Transfer Ability Independent Sit to Stand Chair Transfer Ability Independent Rehab PT IP prob,goals,plan Problems Date of Evaluation: 12/07/21 Rehab Potential Rehab Potential Innapropriate for Skilled Therapy Discharge Plan PT Discharge Plan No skilled therapy needs at this time - pt safe to return home upon dc once medically stable G -code Required Yes Eval Complexity Eval Charge Codes 80208 - Low Complexity G Codes PT Current Status Mobility PT Current Status Modifier CH-0% impaired, limited or restricted PT Goal Status Mobility PT Goal Status Modifer CH-0% impaired, limited or restricted PHYSICIAN CERTIFICATION: I certify the specified therapy services for Obdulio Gold are required, authorized, and reviewed every 30 days.
--- NOTE | 2021-12-07 15:52 | HMH.SLMBS2 ---
Speech & Language Evaluation Speech/Language Mod Barium Swallow Start: 12/07/21 07:52 Freq: ONCE Status: Complete Protocol: Document 12/07/21 15:28 PHIL (Rec: 12/07/21 15:52 PHIL [id number]) General Information General Current Food Consistancy Regular,Thin Liquids Dentition Good Dentition Oxygen Status Room Air Patient Orientation Person,Place,Time,Situation Ability to Follow Directions Good Communication Ability Mild Impairment MBS Recommendations Diet Dietary Recommendations Regular,Ground Meats,Thin Liquids Treatment/Strategies Strategy/Precaution Recommend Sitting Upright (90 deg),Chin Tuck,Double Swallow,No Straw, Small Bites and Sips,Alternate Liquids/Solids Mod Barium Swallow Impressions Summary and Impressions Oral Phase Impression Minimal Impairment Oral Phase Summary During MBSS, pt was provided thin liquid with barium via open cup with no overt s/sxs of aspiration across one sip, 2 consecutive sips, and 2 oz. Pt was provided applesauce mixed with barium pudding and was noted to have no difficulty with manipulation or transfer of this bolus texture. Pt was given mech. soft (nutrigrain bar) and regular solid (coty cracker) with barium pudding and was observed to have difficulty with mastication and transfer of bolus. Residue was noted in the oral cavity at this time and pt was provided with an open cup of thin liquid to clear oral residue. Overall, oral phase of swallow demonstrated minimal impairment outside of difficulty masicating and bolus transfer of mech. soft and regular solids--this could also be 2' to fatigue due to illness. Pharyngeal Phase Impression Mild Impairment Pharyngeal Phase Summary During MBSS, pt demonstrated no demonstrated pooling in vallecular space across mech.
[2021-12-07 17:02] LABS: POC Glucose,Bedside 561 (70-110)
--- NOTE | 2021-12-07 17:07 | PC.NURSE ---
Patient has own insulin pump and recalibrated it with a reading high and request a check from our glucometer which resulted [phone]. Patient administered himself a bolus and will recheck with his sensor and our glucometer. Hospitalist notified and gave v.o. to continue as planned.
--- NOTE | 2021-12-07 18:23 | PC.NURSE ---
Patient VSS, RA O2 sats >94%, B/L fine crackles cleared with cough, had shower today, up to chair for meals. Shows no s/s of acute distress.
--- NOTE | 2021-12-07 21:12 | PC.NURSE ---
Addendum entered by Coral Carranza RN 12/08/21 02:08: it was noted that pt had insulin pump in place but was not connected to port, pt reconnected insulin pump and total insulin via pump at this time was 3 units in which livan noel COPER HAND was made aware. Original Note: 2111 random glucose called to livan noel np in which verbal order was received, repeated and verified to give 20 units of ssi at this time, pt refused 20units and only wanted 15 units to be given, notified livan gem setter of pt request, 15 units of ssi was only given.
[2021-12-07 21:40] LABS: Glucose,Random 779 mg/dL (74-100)
[2021-12-08] VITALS (10 sets, daily range): BP systolic 110–148; BP diastolic 56–68; PULSE 61–87; RESP 16–18; TEMP 36.4–36.9; O2SAT 94–100; BMI 30.9
[2021-12-08 00:17] LABS: Glucose,Random 644 mg/dL (74-100)
--- NOTE | 2021-12-08 03:12 | PC.NURSE ---
random fsbs checked per pt request 464; will continue to monitor fsbs as they are trending downward
[2021-12-08 03:15] LABS: POC Glucose,Bedside 464 (70-110)
[2021-12-08 06:07] LABS: POC Glucose,Bedside 361 (70-110)
--- NOTE | 2021-12-08 06:23 | PC.NURSE ---
0600 fsbs 361, pt refused ssi at this time and bolused self via insulin pump, pt stated he gave himself 3.75 unit bolus, eMliza Rich DOVETAILER made aware, pt with elevated blood sugars through the night related to insulin pump was not connected to port site upon start of shift, pt is alert and oriented x4, VSS, lung sounds diminished with 02 sats 96-97 on room air, 2+ edema noted to BLE, no acute distress, no other issues or concerns noted at this time, pt c/o generalized pain in back and legs and given pain med as prescribed with relief.
[2021-12-08 08:57] LABS: Basophils % 0.4 % (0.1-2.0); Eosinophils # 0.1 K/mm3 (0.0-0.4); Eosinophils % 1.3 % (0.1-12.0); Hematocrit 28.2 % (42.0-52.0); Lymphocytes # 0.8 K/mm3 (0.7-4.5); Lymphocytes % 19.2 % (10-50); Mean Corpuscular Hemoglobin 26.9 pg (27.0-31.2); Mean Corpuscular Volume 83.9 fl (80-94); Mean Platelet Volume 7.9 fl (7.4-10.4); Monocytes # 0.2 K/mm3 (0.1-1.0); Monocytes % 4.4 % (1.7-9.3); Neutrophils # 3.1 K/mm3 (1.8-7.8); Neutrophils % 74.8 % (37.0-80.0); Platelet Count 164 K/mm3 (142-424); Red Blood Count 3.36 M/mm3 (4.60-6.20); Red Cell Distribution Width 16.9 % (11.5-17.5); White Blood Count 4.2 K/mm3 (4.8-10.8)
[2021-12-08 09:08] LABS: Blood Urea Nitrogen 28 mg/dl (9-20); Calcium 7.7 mg/dl (8.4-10.2); Carbon Dioxide 25 mmol/L (22.0-30.0); Chloride 105 mmol/L (98-107); Creatinine Clearance Estimated 87 mL/min (50-200); Estimated Glomerular Filt Rate 67 ml/min (>60); GFR (African American) 81 ML/MIN (>60); Glucose 273 mg/dl (74-100); Sodium 136 mmol/L (136-145)
[2021-12-08 09:13] LABS: D-Dimer 1.03 ug/mL (0.0-0.5)
[2021-12-08 11:29] LABS: Anion Gap 9.7 mEq/L (5-15); Potassium 3.7 mmoL/L (3.5-5.1)
[2021-12-08 14:29] LABS: POC Glucose,Bedside 156 (70-110)
--- NOTE | 2021-12-08 14:44 | EXP.PULM.CON ---
History of Present Illness History of present illness: Mr. Gold is a 65-year-old male no significant smoking history, prior history of CAD CABG, prior history of COVID-19 pneumonia insulin-dependent diabetes mellitus presents hospital worsening respiratory weakness and found to be positive for COVID-19 pneumonia and pulmonary was called for further evaluation. Patient admits worsening cough and productive phlegm for the last 3 to 4 months with no near complete resolution. [facility] History (Updated 12/08/21 @ 15:26 by Delbert Huber MD) CAD (coronary artery disease) Cellulitis COVID-19 Fall GERD (gastroesophageal reflux disease) Hyperlipidemia Hypertension Hypothyroidism Insulin pump fitting or adjustment Laceration of lower leg Pneumonia Side effects of vaccination Traumatic ecchymosis of ankle Type 1 diabetes mellitus with diabetic polyneuropathy Surgical History H/O bilateral hip replacements H/O thyroidectomy History of total right knee replacement (TKR) Total knee replacement status Family History Mother Coronary artery disease Father COVID-19 Social History (Updated 12/06/21 @ 11:45 by Tonya Perez RN) Smoking Status: Never smoker alcohol intake: never current occupational status: employed Travel in the last 8 weeks: None household members: spouse housing: house lives independently: Yes marital status: number of children: 5 education level: high school service: No mcc: No current occupation: [employer] diet: diabetic marianna/oriental orthodox: Protestant Review of Systems Constitutional Constitutional: Reports fatigue, Reports headache(s) and Reports weakness Eyes Eyes: Denies itchy eyes and Denies loss of vision ENT Ears, Nose, Mouth, and Throat: Reports disequilibrium, Denies dizziness, Reports headache(s), Denies lip swelling and Denies throat swelling *Cardiovascular Cardiovascular: Reports dyspnea, Reports dyspnea on exertion, Reports leg edema and Reports leg ulcers *Respiratory Respiratory: Reports chest congestion, Reports cough, Reports dyspnea, Reports dyspnea on exertion, Reports excessive phlegm production and Denies hemoptysis *Gastrointestinal Gastrointestinal: Denies abdominal pain, Denies belching and Denies cramping *Musculoskeletal Musculoskeletal: Denies numbness *Neurologic Neurologic: Denies abnormal speech, Reports confusion, Denies convulsions, Reports disequilibrium, Denies dizziness, Denies localized weakness, Reports headache(s), Reports lack of coordination, Denies loss of vision, Denies memory loss, Denies numbness, Denies paresthesias and Reports weakness Psychiatric Psychiatric: Reports confusion and Denies memory loss Endocrine Endocrine: Reports fatigue and Denies heat intolerance Hematologic/Lymphatic Hematologic/Lymphatic: Denies easy bleeding and Denies lymphadenopathy Allergic/Immunologic Allergic/Immunologic: Denies itchy eyes, Denies lip swelling and Denies throat swelling Pulmonology Exam Inpatient Vital signs and Labs for Last 24 Hours: Temp Pulse Resp BP Pulse Ox FiO2 97.6 F 64 16 131/56 L 96 35 12/08/21 08:00 12/08/21 12:58 12/08/21 08:00 12/08/21 12:00 12/08/21 12:58 12/06/21 18:45 Laboratory Results - last 24 hr 12/07/21 16:49: POC Glucose 561 H* 12/07/21 21:11: Random Glucose 779 H* 12/07/21 22:48: Random Glucose 644 H* 12/08/21 03:08: POC Glucose 464 H* 12/08/21 05:55: POC Glucose 361 H* 12/08/21 08:38: WBC 4.2 L, RBC 3.36 L, Hgb 9.0 L, Hct 28.2 L, MCV 83.9, MCH 26.9 L, MCHC 32.0, RDW 16.9, Plt Count 164, MPV 7.9, Neut % (Auto) 74.8, Lymph % (Auto) 19.2, Terrell % (Auto) 4.4, Eos % (Auto) 1.3, Baso % (Auto) 0.4, Neut # (Auto) 3.1, Lymph # (Auto) 0.8, Terrell # (Auto) 0.2, Eos # (Auto) 0.1, Baso # (Auto) 0.0 12/08/21 08:38: Sodium 136, Potassium 3.7
--- NOTE | 2021-12-08 14:50 | XR_ITS ---
FINAL REPORT CLINICAL HISTORY: PNM COMPARISON: 12/06/2021 FINDINGS: SINGLE-VIEW CHEST The heart size is normal. The mediastinum is normal. There are persistent bibasilar opacities, left greater than right which may represent pneumonia or atelectasis. There is no pneumothorax. IMPRESSION: Persistent pneumonia or atelectasis. Reviewed, Interpreted and Dictated by Darwin Thompson III, MD Transcribed by Beatriz Mulligan Authenticated and [facility]
--- NOTE | 2021-12-08 16:23 | EXP.ACUTE.PN ---
Subjective *Date: 12/08/21 *Time: 16:23 Interval history: Continues to complain of cough and fatigue today. Stable on room air on rounds. Cough nonproductive. Glucose showing improvement through the day as patient's pump has been refilled and he was transitioned back to managing his own glucose with insulin pump. Patient afebrile today and hemodynamically stable. Tolerating fair p.o. intake. No nausea or vomiting, no headache or confusion. He is concerned however about his persistent COVID and this pneumonia and how he is feeling overall. He reports he has been sick now going on 2 months and is unsure why. Discussed that I am concerned as well about his continued COVID and this left lower lobe pneumonia. Discussed consulting pulmonology with patient. Medical Exam Vital signs and Labs for Last 24 Hours: Vital Signs Temp Pulse Pulse Resp BP Pulse Ox 12/08/21 15:10 97.7 F 68 18 148/68 H 94 L 12/08/21 12:00 68 131/56 L 100 12/08/21 12:58 64 12/08/21 12:58 66 12/08/21 12:58 96 12/08/21 08:00 97.6 F 72 16 136/64 96 12/08/21 06:24 83 12/08/21 06:24 87 12/08/21 06:24 97 12/08/21 04:00 98.0 F 71 18 135/61 96 12/07/21 20:00 77 96 12/08/21 00:00 98.4 F 83 18 110/56 L 97 12/07/21 23:21 74 12/07/21 23:21 77 12/07/21 20:00 97.8 F 83 18 122/56 L 96 12/07/21 18:49 66 12/07/21 18:49 75 Intake and Output 12/08/21 12/08/21 12/08/21 07:59 15:59 23:59 Intake Total 2077 / 2437 360 / 2437 Output Total 520 / 920 400 / 920 Balance 1557 / 1517 -40 / 1517 Intake: Intake, Oral Amount 240 / 600 360 / 600 Intake, Total IV Amount 1837 / 1837 0.9 % Sodium Chloride 1,000 ml 1637 / 1637 @ 125 mls/hr IV .Q8H [facility] Rx#: [id number] Ampicillin/Sulbactam 3 gm In 0. 200 / 200 9 % Sodium Chloride 100 ml @ 200 mls/hr IV Q6H [facility] Rx#: [id number] Output: Output, Urine Amount 520 / 920 400 / 920 Other: Number of Unmeasured Voids 0 1 Weight 94.886 kg Patient Weight 12/08/21 23:59 Weight 94.886 kg Laboratory Results - last 24 hr 12/07/21 16:49: POC Glucose 561 H* 12/07/21 21:11: Random Glucose 779 H* 12/07/21 22:48: Random Glucose 644 H* 12/08/21 03:08: POC Glucose 464 H* 12/08/21 05:55: POC Glucose 361 H* 12/08/21 08:38: WBC 4.2 L, RBC 3.36 L, Hgb 9.0 L, Hct 28.2 L, MCV 83.9, MCH 26.9 L, MCHC 32.0, RDW 16.9, Plt Count 164, MPV 7.9, Neut % (Auto) 74.8, Lymph % (Auto) 19.2, [place] % (Auto) 4.4, Eos % (Auto) 1.3, Baso % (Auto) 0.4, Neut # (Auto) 3.1, Lymph # (Auto) 0.8, [place] # (Auto) 0.2, Eos # (Auto) 0.1, Baso # (Auto) 0.0 12/08/21 08:38: Sodium 136, Potassium 3.7 D, Chloride 105, Carbon Dioxide 25, Anion Gap 9.7, BUN 28 H, Creatinine 1.10, Estimated Creat Clear 87, Estimated GFR 67, Est GFR ( Amer) 81, Glucose 273 H, Calcium 7.7 L 12/08/21 08:38: D-Dimer 1.03 H 12/08/21 14:18: POC Glucose 156 H I & O for Labs for Last 24 Hours: Intake & Output 12/05/21 12/06/21 12/07/21 12/08/21 23:59 23:59 23:59 23:59 Intake Total 3960 / 3960 3370 / 3610 2437 / 2437 Output Total 800 / 800 3100 / 3100 920 / 920 Balance 3160 / 3160 270 / 510 1517 / 1517 Weight 87.6 kg 92.76 kg 94.886 kg Microbiology Reports for the Last 24 Hours: Microbiology 12/06/21 07:01 Blood Blood Culture - Preliminary NO GROWTH AFTER 48 HOURS 12/06/21 07:01 Blood Blood Culture - Preliminary NO GROWTH AFTER 48 HOURS 12/07/21 21:55 Sputum - Expectorated Sputum Gram Stain - Final Constitutional: Present no acute distress, obese and chronically ill appearing Head: Present atraumatic and normocephalic ENT: Present normal exam and normal oropharynx Comment:: Right eyelid droop Respiratory: Present accessory muscle use, rhonchi and crackles; Absent wheezes or normal respiratory effort Cardiac: Present Reg Rate and Rhythm
--- NOTE | 2021-12-08 18:00 | PC.NURSE ---
Patient VSS, BLL fine crackles, BS WNL (patient using his own insulin pump). Has been up to chair entire shift. Appetite is good and drinking fluids. Had consult with Dr. Huber today and Cardiology consult scheduled for tomorrow. Has shown no s/s of acute distress.
[2021-12-08 22:26] LABS: POC Glucose,Bedside 244 (70-110)
[2021-12-08 22:26] LABS: POC Glucose,Bedside 240 (70-110)
[2021-12-09] VITALS: BP 146/64; PULSE 64; RESP 17; TEMP 36.6; O2SAT 95
[2021-12-09 04:00] VITALS: BP 143/67; PULSE 76; RESP 18; TEMP 36.7; O2SAT 95
--- NOTE | 2021-12-09 04:21 | PC.NURSE ---
no changes since previous assessment. +2 pitting edema noted to BLE. LS dminished.
[2021-12-09 04:22] VITALS: BMI 30.4
--- NOTE | 2021-12-09 04:40 | PC.NURSE ---
pt states he dumped his urinal himself but filled it up at least retirement this shift.
[2021-12-09 05:39] LABS: POC Glucose,Bedside 137 (70-110)
[2021-12-09 05:50] VITALS: PULSE 68; PULSE 71; O2SAT 93
--- NOTE | 2021-12-09 06:00 | CA_ITS ---
APPROVED REPORT EXAM: Comprehensive 2D, Doppler, and color-flow Echocardiogram E Business Project Manager: BAMBI Nelson, RVS Ht: 5 ft 8 in Wt: 208lbs BSA: 2.08 BP: 148/68 mmHg Indications: Covid pneumonia [id number], CAD, DM type I, cellulitits, fatigue, HTN, HLD 2D Dimensions IVSd 0.82 cm LVEF (Visual) 60.80 % PWd 0.85 cm LA Volume 33.00 mL LVDd 5.11 cm LA Volume Index 15.90 mL/m2 (M/F) 16-34 LVDs 3.44 cm Aortic Root 3.34 cm Left Atrium 3.13 cm LVOT 2.25 cm (M/F) 1.5-2.5 M-Mode Dimensions RVDd 3.57 cm (0.9-2.6) LA Diam 4.12 cm (1.9-4.0) LVDd 5.78 cm (3.5-5.7) Ao Diam 3.90 cm (2.0-3.7) LVDs 3.01 cm (3.5-5.7) IVSd 1.00 cm (0.6-1.1) PWd 1.00 cm (0.6-1.1) EF (Teich) 78.60% EPSs 0.85 cm FS 47.90% EDV (Teich) 165.20 mL TAPSE 1.49 (<1.7) ESV (Teich) 35.30 mL LV Diastology E Decel Time 227.00 (160-240 msec) E/A Ratio 1.14 MED E' 6.30 (< 7 cm/sec) MED A' 16.00 cm/s E'/MED E' Ratio 11.57 (>14) LAT E' 7.10 (<10 cm/sec) LAT A' 12.50 cm/s E/LAT E' Ratio 10.27 (>14) Aortic Valve LVOT Max 86.00 (70-110 cm/s) LVOT VTI 16.75 cm AoV Peak Eriberto. 151.00 (50-130 cm/s) AO Peak GR. 9.10 mmHg AO Mean GR. 4.60 (<5 mmHg) AO VTI 31.03 (18-25 cm) JAMI (VTI) 2.15 (2.5-4.5 cm2) Mitral Valve MV A Velocity 64.00 (40-130 cm/s) E/A Ratio 1.14 MV Decel. Time 227.00 (160-240 ms) MV PHT 63.00 ms Pulmonary Valve PV Peak Velocity 94.00 (50-150 cm/s) Tricuspid Valve TR P. Velocity 241.00 cm/s RAP Estimate 10.00 mmHg RVSP 33.30 mmHg Left Ventricle Left atrium is mildly enlarged the left ventricle is normal size mild concentric left ventricular hypertrophy, estimated ejection fraction 55% with no regional wall motion abnormality, diastolic parameters are inconclusive. Right Ventricle Right atrium and right ventricle are mildly enlarged with normal contractility. Aortic Valve Aortic valve is minimally thickened and fibrosed there is no aortic stenosis or aortic insufficiency. Mitral Valve Mitral valve is grossly normal, there is trace mitral regurgitation. Tricuspid Valve Tricuspid valve grossly normal, there is trace tricuspid regurgitation, tricuspid regurgitation jet velocity is inadequate for calculation of the right ventricular systolic pressure. Pulmonic Valve Pulmonic valve is poorly visualized. Great Vessels Aortic root is normal size. Inferior vena cava is poorly visualized. Pericardium No significant pericardial effusion. Conclusion 1. Mild biatrial enlargement, normal left ventricular size, estimated ejection fraction 55% with no regional wall motion abnormality, diastolic parameters are inconclusive. 2. Mildly enlarged right ventricle with normal contractility. 3. Trace mitral and tricuspid regurgitation. 4. No significant pericardial effusion noted. 5. Inferior vena cava is poorly visualized. Electronically signed by : Orlando Ureña MD 12/09/2021 21:19:42
[2021-12-09 07:37] VITALS: BP 123/62; PULSE 78; RESP 17; TEMP 36.6; O2SAT 95
[2021-12-09 07:56] LABS: Alanine Aminotransferase 10 U/L (12-78); Albumin Level 2.9 g/dl (3.5-5.0); Albumin/Globulin Ratio 1.2 (1.1-1.8); Alkaline Phosphatase 91 U/L (38-126); Anion Gap 9.7 mEq/L (5-15); Aspartate Amino Transferase 22 U/L (17-59); Bilirubin,Total 0.4 mg/dl (0.2-1.3); Blood Urea Nitrogen 18 mg/dl (9-20); Calcium 8.7 mg/dl (8.4-10.2); Carbon Dioxide 30 mmol/L (22.0-30.0); Chloride 105 mmol/L (98-107); Creatinine Clearance Estimated 86 mL/min (50-200); Estimated Glomerular Filt Rate 67 ml/min (>60); GFR (African American) 81 ML/MIN (>60); Globulin 2.5 g/dL (1.3-3.2); Glucose 116 mg/dl (74-100); Magnesium 1.6 mg/dl (1.6-2.3); Potassium 3.7 mmoL/L (3.5-5.1); Sodium 141 mmol/L (136-145); Total Protein,Serum 5.4 g/dl (6.3-8.2)
[2021-12-09 08:33] LABS: Erythrocyte Sedimentation Rate 35 mm/hr (0-20)
[2021-12-09 09:15] LABS: C-Reactive Protein 45.6 mg/L (0-4)
--- NOTE | 2021-12-09 09:57 | EXP.PULM.PN ---
Subjective *Date: 12/09/21 *Time: 11:03 Interval history: No acute respiratory vents overnight. Continues to remain on room air. Continues to have mild cough and productive phlegm. No worsening from prior. Pulmonology Exam Inpatient Vital signs and Labs for Last 24 Hours: Temp Pulse Resp BP Pulse Ox FiO2 97.9 F 78 17 123/62 95 35 12/09/21 07:37 12/09/21 07:37 12/09/21 07:37 12/09/21 07:37 12/09/21 07:37 12/06/21 18:45 Laboratory Results - last 24 hr 12/08/21 08:38: Potassium 3.7 D, Anion Gap 9.7 12/08/21 14:18: POC Glucose 156 H 12/08/21 20:07: POC Glucose 240 H 12/08/21 20:24: POC Glucose 244 H 12/09/21 05:21: POC Glucose 137 H 12/09/21 06:26: C-Reactive Protein 45.6 H 12/09/21 06:26: ESR 35 H 12/09/21 06:26: Sodium 141, Potassium 3.7, Chloride 105, Carbon Dioxide 30, Anion Gap 9.7, BUN 18 D, Creatinine 1.10, Estimated Creat Clear 86, Estimated GFR 67, Est GFR ( Amer) 81, Glucose 116 H D, Calcium 8.7, Magnesium 1.6 D, Total Bilirubin 0.4, AST 22, ALT 10 L, Alkaline Phosphatase 91, Total Protein 5.4 L, Albumin 2.9 L, Globulin 2.5, Albumin/Globulin Ratio 1.2 I & O for Labs for Last 24 Hours: Intake & Output 12/06/21 12/07/21 12/08/21 12/09/21 23:59 23:59 23:59 23:59 Intake Total 3960 / 3960 3370 / 3610 4847 / 4847 180 / 180 Output Total 800 / 800 3100 / 3100 1670 / 1670 125 / 125 Balance 3160 / 3160 270 / 510 3177 / 3177 55 / 55 Weight 193 lb 2 oz 204 lb 8.013 oz 209 lb 3 oz 205 lb 14.4 oz Microbiology Reports for the Last 24 Hours: Microbiology 12/08/21 16:32 Sputum - Expectorated Sputum Gram Stain - Final 12/06/21 07:01 Blood Blood Culture - Preliminary NO GROWTH AFTER 48 HOURS 12/06/21 07:01 Blood Blood Culture - Preliminary NO GROWTH AFTER 48 HOURS Constitutional: Present no acute distress and cooperative; Absent disheveled or agitated Head: Present normocephalic and atraumatic ENT: Present normal exam, normal oropharynx and mucous membranes moist Neck: Present normal inspection and full ROM Respiratory: Present respiratory distress, rhonchi, crackles and able to speak in complete sentences Comment:: Left lower lobe rhonchi Cardiac: Present Tachycardia; Absent S1/S2 GI: Present soft and distention; Absent tenderness or guarding Skin: Present intact; Absent cyanosis or jaundice Neuro: Present alert, awake and oriented x 3 Extremities: Present normal inspection and edema; Absent clubbing or cyanosis Psychiatric: Present normal affect and cooperative Assessment and Plan *Assessment and plan (1) Healthcare-associated pneumonia: Status: Acute Category: Medical Code(s): J18.9 - Pneumonia, unspecified organism Plan #Hospital-acquired pneumonia: 65-year-old CAD, CABG, insulin-dependent diabetes mellitus, COVID-19 pneumonia presented with worsening weakness and respiratory distress. Recently admitted to the hospital in late October for generalized weakness during which patient also was in shock needing vasopressor support, dopamine. Patient COVID-19 serology was positive on 10/30, negative on 11/06 -intermittently on nasal cannula and room air during last hospital admission. Did not receive any COVID-19 specific treatment. His COVID-19 PCR again tested positive on this admission from 12/06/2021. CRP significantly elevated at 106.7 on this admission. He has been on room air for the last 24 hours. Was not initiated and is currently COVID-specific therapy. CT chest from [facility] admission personally reviewed, dense left lower lobe consolidation. No other significant airspace disease noted. X-ray from most recent admission bilateral small pleural effusions, however did not show any left lower lobe consolidation/airspace disease. Patient also stated that his PCP previously told him that he does have left lower lobe pneumonia. Patient currently receiving Unasyn since admission. He is also receiving inhalers includi
--- NOTE | 2021-12-09 10:05 | EXP.CARD.CON ---
History of Present Illness History of Present Illness Consult date: 12/09/21 Requesting physician: Alfonso Borjas Consult reason: congestive heart failure and shortness of breath Chief complaint: SOA History of present illness: This is a 65-year-old white gentleman who presented to the emergency department with shortness of breath and altered mental status at home. The patient was found to have a left lower lobe pneumonia as well as COVID-19. The patient has been seen by pulmonology and he thinks that this is a hospital-acquired pneumonia and not a COVID-pneumonia. He states that his shortness of breath has improved since being in the hospital but has not completely resolved. He states that his shortness of breath was associated with a cough. He does state that this is productive. He states that he will sometimes choke because of his secretions being so thick. He states that his cough and his shortness of breath are both better. He denies any chest pain or pressure. His shortness of breath is associated with some orthopnea and bilateral lower extremity edema. On admission to the hospital the patient was febrile with a temperature of 101. He was hypotensive as well on admission. The patient is feeling much better now. As mentioned above he states his shortness of breath has improved since being in the hospital as well as his cough. He denies chest pain or pressure. He states his lower extremity edema has improved. He denies any fever, chills, nausea, vomiting, diarrhea, PND or orthopnea. [facility] Medical History (Updated 12/09/21 @ 10:12 by Mi Rubin APRN) Bilateral lower extremity edema CAD (coronary artery disease) Cellulitis COVID-19 Diastolic CHF, acute Fall GERD (gastroesophageal reflux disease) Hyperlipidemia Hypertension Hypothyroidism Insulin pump fitting or adjustment Laceration of lower leg Pneumonia Side effects of vaccination Traumatic ecchymosis of ankle Type 1 diabetes mellitus with diabetic polyneuropathy Surgical History (Updated 12/09/21 @ 10:12 by Mi Rubin APRN) H/O bilateral hip replacements H/O thyroidectomy History of coronary 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) Total knee replacement status Family History Mother Coronary artery disease Father COVID-19 Social History (Updated 12/06/21 @ 11:45 by Tonya Perez RN) Smoking Status: Never smoker alcohol intake: never current occupational status: employed Travel in the last 8 weeks: None household members: spouse housing: house lives independently: Yes marital status: number of children: 5 education level: high school service: No fpc: No current occupation: [employer] diet: diabetic marianna/druze: [employer] Review of Systems Review of Systems Review of systems:: pertinent systems reviewed and negative unless documented below Constitutional Constitutional: Reports system reviewed and no additional complaints, except as documented, Reports fatigue, Reports lethargy and Reports weakness Eyes Eyes: Reports system reviewed and no additional complaints, except as documented ENT Ears, Nose, Mouth, and Throat: Reports system reviewed and no additional complaints, except as documented and Reports disequilibrium *Cardiovascular Cardiovascular: Reports system reviewed and no additional complaints, except as documented, Denies chest pain, Reports dyspnea, Reports dyspnea on exertion and Reports leg edema *Respiratory Respiratory: Reports system reviewed and no additional complaints, except as documented, Reports chest congestion, Reports cough, Reports dyspnea, Reports dyspnea on exertion and Reports excessive phlegm production *Gastrointestinal Gastrointestinal: Reports system reviewed and no additional complaints, except as documented *Genitourinary Genitourinary: Reports s
--- NOTE | 2021-12-09 10:24 | EXP.DC.SUM ---
General Admission date:: 12/06/21 Discharge date: 12/09/21 HPI HPI HPI: This is a 65-year-old male that is accompanied by his of 35 years to [facility] emergency department after experiencing some hypoxia and altered mental status at home early this morning. His past medical history significant for diabetes type 1 with insulin pump, coronary artery disease, HFrEF, GERD with esophageal stricture status-post dilatation 2021, rheumatoid arthritis and gout. He reports that he was hospitalized back in August at [facility] for respiratory distress and COVID. He describes outpatient treatment for pneumonia and recent hospital admission at [facility] for DKA. His is concerned with ongoing cough after his COVID diagnoses and that he chokes with meal consumption. He reports a cough over the past week with associated nasal drainage not improving with home care. He does not use home oxygen. He denies productive cough or hemoptysis. He reports his cough has increased in severity over the last 48 hours and he has identified shortness of air with activity. This morning he went to use the bathroom and fell landing on his elbows. EMS arrived and identified some confusion and O2 sats on room air in the low 90s. His ED glucose on presentation was 190. In the ED he underwent imaging of his brain and CTA of the neck and brain. A chest x-ray identified left lower lobe infiltrate and he was febrile at 101. Identified increased respiratory rate with decreased O2 that improved on oxygen supplementation. His blood pressures were low. He met sepsis criteria. His lactic acid and inflammatory markers were pending at the time of evaluation. His blood pressure is 80/60 with a MAP of 53 and he has been started on 30 cc/kg IV fluid resuscitation. Stat blood cultures have been requested. His COVID?19 PCR came back positive and inflammatory markers have been requested. Hospital Course Hospital Course Hospital Course: 65-year-old male with history of rheumatoid arthritis, type 1 diabetes, hypothyroidism, heart failure.? Presented with pneumonia and low blood pressure.? Symptoms improved after treatment with fluids and initiation of antibiotics. Patient has been able to wean off of oxygen during hospitalization and remained hemodynamically stable. At this time he is tolerating oral intake, on room air, afebrile and hemodynamically stable. Meeting criteria for discharge home. During his admission pulmonology and cardiology were consulted, appreciate their recommendations. Diabetes was difficult to control however after resuming his home regimen with his pump, patient has achieved fair control of his glucose. Problems addressed during admission as follows Healthcare acquired pneumonia Persistent COVID-19 -Initiated on broad-spectrum antibiotics on admission. Transitioned to levofloxacin on 12/08. Plan to complete 5-day total course at the recommendation of pulmonology. Would benefit from outpatient follow-up with them to monitor resolution given his persistent COVID-positive status. Not treated for COVID specifically during admission as there is no clear indication at this time. -Sputum culture with no growth at time of discharge. HFpEF CHF exacerbation Volume overload -Monitored on telemetry. Echo obtained showing preserved ejection fraction and slight elevation of right-sided heart pressures. Increased diuretic during admission and continued home antihypertensive medications once appropriate. Recommend increasing Lasix to 80 mg daily. Patient wants to follow with his faculty i on call medical assistant at [facility], will defer further management to them. Appreciate cardiology's assistance during admission and adjustment of medications. Echo preliminary results available at discharge showing preserved ejection fraction and slightly elevated RVSP. Final results/read pending at time of discharge. Coronary artery disease - POA, continu
[2021-12-09 11:25] VITALS: BP 136/78; PULSE 77; RESP 18; TEMP 36.9; O2SAT 94
[2021-12-09 12:19] LABS: POC Glucose,Bedside 124 (70-110)
--- NOTE | 2021-12-09 13:04 | HMH.PHAINT1 ---
Pharmacy Intervention Comments: DISCHARGE MEDICATION COUNSELING PROVIDED. DISCUSSED THE INCREASE OF THE FUROSEMIDE FROM 40 MG TO 80 MG DAILY, WATCH FOR INCREASED URINE OUTPUT, DIZZINESS/LIGHTHEADEDNESS. START LEVAQUIN FOR 5 DAYS (TAKE DAILY, ANTIBIOTIC, RECOMMEND TAKING WITH FOOD, UPSET STOMACH/NAUSEA/DIARRHEA POSSIBLE, RISK OF TENDON RUPTURE SO TAKE IT SLOW WHEN GETTING UP. PATIENT VERBALIZED NO QUESTIONS AT THIS TIME.
[2021-12-09 18:09] LABS: Calcium, Ionized 5.5 mg/dL (4.5-5.6)
--- NOTE | 2021-12-10 14:54 | CARE MANAGER ---
Spoke with patient for post-discharge phone interview, he states that he has medications and follow-up appointments. No needs at this time.
== END 2021-12-09 13:10 | disposition home or self-care (01) | DRG 871 ==
LOC: ER 07:24 → 2ND 07:48
PROVIDERS: Admitting Provider Family Medicine; Emergency Provider Emergency Medicine; PCP Family Medicine; Visit Provider Internal Medicine Adolescent Medicine
DX: A41.9 Sepsis, unspecified organism (principal); I50.33 Acute on chronic diastolic (congestive) heart failure; J18.9 Pneumonia, unspecified organism; J96.21 Acute and chronic respiratory failure with hypoxia; U07.1 COVID-19; D84.9 Immunodeficiency, unspecified; Z79.4 Long term (current) use of insulin; Z96.41 Presence of insulin pump (external) (internal); I25.10 Atherosclerotic heart disease of native coronary artery without angina pectoris; E03.9 Hypothyroidism, unspecified; E10.42 Type 1 diabetes mellitus with diabetic polyneuropathy; Z96.643 Presence of artificial hip joint, bilateral; F17.200 Nicotine dependence, unspecified, uncomplicated; K21.9 Gastro-esophageal reflux disease without esophagitis; M06.9 Rheumatoid arthritis, unspecified; Y95 Nosocomial condition; I11.0 Hypertensive heart disease with heart failure; Z96.651 Presence of right artificial knee joint
CPT/HCPCS: 36415; 70371; 70450; 70496; 70498; 71045; 71250; 80048; 80053; 82330; 82550; 82607; 82728; 82746; 82803; 82947; 82962; 83605; 83615; 83735; 83880; 84145; 84484; 85007; 85025; 85378; 85651; 86140; 87040; 87070; 87077; 87081; 87186; 87205; 92526; 92610; 92611; 93005; 93306; 94640; 94660; 97161; 99285; C9803; J0456; J0696; J1956; J3475; Q9967; U0003; U0005

== ENCOUNTER → 2022-01-21 12:20 | Outpatient (CLI) | payer MEDICARE, OTHER, SELFPAY ==
--- NOTE | 2022-01-21 12:20 | CT_ITS ---
FINAL REPORT TECHNIQUE: Axial images were obtained from the lung apex to the mid abdomen by computed tomography. Coronal reformatted images were obtained. This study was performed with techniques to keep radiation doses as low as reasonably achievable, (ALARA). Individualized dose reduction techniques using automated exposure control or adjustment of mA and/or kV according to the patient''s size were employed. CLINICAL HISTORY: Recurrent pneumonia. COMPARISON: December 06, 2021 FINDINGS: There are postoperative changes from median sternotomy. There is no axillary adenopathy. There is no hilar or mediastinal adenopathy. Heart size is normal. There is no pericardial or pleural effusion. Limited images of the upper abdomen demonstrate postoperative changes from cholecystectomy. There is a stable probable cyst in the left kidney with small nonobstructing renal stones in the left kidney. There is a large amount of retained stool. There is mild bibasilar scarring or atelectasis. There has been interval near resolution of left lower lobe opacities. IMPRESSION: Mild bibasilar scarring or atelectasis. Interval near resolution of left lower lobe opacities. Reviewed, Interpreted and Dictated by Darwin Thompson III, MD Transcribed by Rody Vallejo Authenticated and [facility]
== END ==
PROVIDERS: PCP Family Medicine; Visit Provider Internal Medicine Pulmonary Disease
DX: J18.9 Pneumonia, unspecified organism (principal); Z87.01 Personal history of pneumonia (recurrent)
CPT/HCPCS: 71250

== ENCOUNTER → 2022-02-24 10:31 | Outpatient (CLI) | payer MEDICARE, OTHER, SELFPAY ==
[2022-02-24 10:56] LABS: Microscopic, Urine URINE MICROSCOPIC (MICROSCOPIC)
[2022-02-24 11:21] LABS: Appearance,Urine CLEAR (Clear); Bilirubin,Urine Negative (Negative); Blood, Urine Negative (Negative); Color,Urine YELLOW (Yellow); Glucose,Urine (UA) Negative (Negative); Ketones,Urine Negative (Negative); Leukocyte Esterase,Urine Negative (Negative); Nitrate,Urine Negative (Negative); Protein,Urine Negative (Negative); Specific Gravity, Urine <= 1.005 (1.005-1.030); Urobilinogen,Urine 0.2 EU/dl (0.2)
[2022-02-24 11:27] LABS: Hemoglobin 10.3 g/dL (14.1-18.0); Mean Corpuscular HGB Conc 31.2 g/dL (31.8-35.4); Mean Corpuscular Hemoglobin 24.9 pg (27.0-31.2); Mean Corpuscular Volume 79.8 fl (80-94); Platelet Count 148 K/mm3 (142-424); Red Blood Count 4.13 M/mm3 (4.60-6.20); Red Cell Distribution Width 15.5 % (11.5-17.5); White Blood Count 4.3 K/mm3 (4.8-10.8)
[2022-02-24 11:28] LABS: Creatinine,Urine Random 16 mg/dL (Not Estab.)
[2022-02-24 11:37] LABS: Hemoglobin A1C 6.7 % (4.0-6.0)
[2022-02-24 11:59] LABS: Alanine Aminotransferase 12 U/L (12-78); Albumin Level 3.7 g/dl (3.5-5.0); Albumin/Globulin Ratio 1.5 (1.1-1.8); Alkaline Phosphatase 87 U/L (38-126); Aspartate Amino Transferase 24 U/L (17-59); Bilirubin,Total 0.5 mg/dl (0.2-1.3); Blood Urea Nitrogen 20 mg/dl (9-20); Calcium 8.6 mg/dl (8.4-10.2); Carbon Dioxide 27 mmol/L (22.0-30.0); Chloride 106 mmol/L (98-107); Estimated Glomerular Filt Rate 60 ml/min (>60); GFR (African American) 73 ML/MIN (>60); Globulin 2.5 g/dL (1.3-3.2); Glucose 176 mg/dl (74-100); Sodium 138 mmol/L (136-145); Total Protein,Serum 6.2 g/dl (6.3-8.2); Uric Acid 4.6 mg/dl (3.5-8.5)
[2022-02-24 12:16] LABS: 25-OH Vitamin D, Total 43.9 ng/mL (30-100)
== END ==
PROVIDERS: PCP Internal Medicine Nephrology; Visit Provider Internal Medicine Nephrology
DX: N18.30 Chronic kidney disease, stage 3 unspecified (principal); E11.9 Type 2 diabetes mellitus without complications; I10 Essential (primary) hypertension; N40.0 Benign prostatic hyperplasia without lower urinary tract symptoms; Z79.4 Long term (current) use of insulin
CPT/HCPCS: 36415; 80053; 81001; 82306; 82570; 83036; 83970; 84155; 84550; 85014; 85018; 85048; 85049

== ENCOUNTER 2022-04-27 09:57 | Emergency (ER) | payer MEDICARE, OTHER, BC, SELFPAY ==
--- NOTE | 2022-04-27 09:55 | ECG_ITS ---
APPROVED REPORT Exam: Resting ECG HR:78 bpm ECG Measurements Heart Rate 78 AXES UT 160 P 41 QRSd 117 QRS -38 QT 427 T 54 QTc 460 Conclusion SINUS RHYTHM LEFT AXIS DEVIATION [QRS AXIS < -30] S1-S2-S3 PATTERN, CONSISTENT WITH PULMONARY DISEASE, RVH, OR NORMAL VARIANT LEFT VENTRICULAR HYPERTROPHY AND ST-T CHANGE [VOLTAGE CRITERIA PLUS ST/T ABNORMALITY] ABNORMAL ECG UNCONFIRMED REPORT Electronically signed by : Jonnie Santos MD 04/30/2022 16:46:24
[2022-04-27 09:58] VITALS: BP 147/74; PULSE 76; RESP 23; TEMP 36.4; O2SAT 97; BMI 31.0
--- NOTE | 2022-04-27 10:02 | HMH.EDGENADL ---
Discharge Plan Disposition Patient Disposition: Home, Self-Care Prescriptions Prescriptions: New doxycycline hyclate 100 mg capsule 100 mg PO BID 7 Days Qty: 14 0RF No Action lisinopril 2.5 mg tablet 2.5 mg PO HS nitroglycerin 0.4 mg tablet, sublingual 0.4 mg SUBLINGUAL Q5MINP PRN (Reason: Chest Pain) Rx Instructions: do not exceed 3 doses per episode sucralfate [Carafate] 1 gram tablet 1 g PO ACHS potassium chloride 10 mEq tablet extended release 10 meq PO DAILY fluticasone propionate 50 mcg/actuation spray,suspension 2 spray INTRANASAL DAILY trazodone 150 mg tablet 150 mg PO HS gabapentin 600 mg tablet 600 mg PO TID duloxetine 60 mg capsule,delayed release(DR/EC) 60 mg PO BID allopurinol 100 mg tablet 100 mg PO DAILY moxifloxacin 0.5 % drops 1 drp OPHTHALMIC QID Rx Instructions: 1 drop into right eye 4 times daily aspirin [Adult Low Dose Aspirin] 81 mg tablet,delayed release (DR/EC) 81 mg PO DAILY Hyper-Luis 3.5 % solution for nebulization 4 ml inhalation BID 90 Days Qty: 270 3RF Rx Instructions: 4 mL of 3% hypertonic saline nebulization every 12 hours every day to use with chest percussion therapy. This nebulization should be preceded by albuterol nebulization to avoid any bronchospasm. albuterol sulfate 1.25 mg/3 mL solution for nebulization 1.25 mg inhalation BID Qty: 270 3RF Rx Instructions: To be used before 3% normal saline nebulization. clopidogrel 75 MG tablet 75 mg PO DAILY levothyroxine 125 MCG tablet 125 mcg PO DAILYDM hydroxychloroquine 200 MG tablet 400 mg PO DAILY rosuvastatin 20 MG tablet 20 mg PO HS hydrocodone-acetaminophen 5-325 mg tablet 1 tab PO TIDP PRN (Reason: mild to moderate pain) Label Comments: TAKE 1 TABLET BY MOUTH EVERY 8 HOURS colchicine 0.6 mg tablet 0.6 mg PO DAILY metoprolol succinate 25 mg tablet extended release 24 hr 12.5 mg PO DAILY ciclopirox 0.77 % gel 1 applic TOPICAL WEEKLY Rx Instructions: Apply daily to affected toenail. Smooth with emery board weekly. baclofen 10 mg tablet 10 mg PO BID valacyclovir 500 mg tablet 500 mg PO DAILY Label Comments: TAKE 1 TABLET BY MOUTH EVERY DAY tamsulosin 0.4 mg capsule 0.8 mg PO HS insulin glargine [Lantus Solostar U-100 Insulin] 100 unit/mL (3 mL) insulin pen 20 unit SQ HS erythromycin 5 mg/gram (0.5 %) ointment 1 applic Eye-Both HS Label Comments: APPLY A SMALL AMOUNT INTO BOTH EYES AT BEDTIME levofloxacin 750 mg tablet 750 mg PO DAILY 5 Days Qty: 5 0RF Rx Instructions: start 12/10/21 furosemide 40 MG tablet 80 mg PO DAILY 30 Days Qty: 60 0RF Activity Restrictions/Add. Instructions Additional Instructions/Restrictions: You are found to have community-acquired pneumonia that is interstitial in nature please complete your entire course of antibiotics follow-up with your primary care doctor at the end of this week and return to the emergency department any worsening symptoms. Clinical Impressions Clinical Impression: CAP (community acquired pneumonia) Discharge ED Provider: Matias Ward General Adult HPI General Chief complaint: Shortness of Breath/Dyspnea Stated complaint: SOB Time Seen by Provider: 04/27/22 10:03 History of Present Illness HPI narrative: Patient is a 66-year-old male presenting with dyspnea and cough for the last 24 hours. States that his dyspnea is been worsening over the last few weeks and last night had an uncontrollable cough was presented to the emergency department today due to his ongoing dyspnea. States he has a history of 5 vessel CABG in 2000 performed at [facility] in [place] he is also had 3 stents from interventions at [place] most recently about 6 years ago he states. He is currently followed at the [facility] and his most recent h
--- NOTE | 2022-04-27 10:08 | PC.NURSE ---
BRET WEAVER at for pt kamaljital
--- NOTE | 2022-04-27 10:15 | XR_ITS ---
FINAL REPORT CLINICAL HISTORY: dyspnea FINDINGS: The heart size is upper limits of normal. The mediastinum is within normal limits. There are chronic changes in the lung bases. There is new airspace opacity in the periphery of the right mid lung consistent with acute pneumonia. There is no pleural effusion. There is no pneumothorax. The bony thorax is intact. IMPRESSION: Acute right midlung pneumonia. Reviewed, Interpreted and Dictated by Palomo Chowdhury MD Transcribed by Tate Whiting Authenticated and . [facility]
[2022-04-27 10:28] LABS: Coronavirus 19, PCR Not Detected (NotDetected); Influenza A, PCR Not Detected (NotDetected); Influenza B, PCR Not Detected (NotDetected)
--- NOTE | 2022-04-27 10:38 | PC.NURSE ---
notified RT of vbg order
[2022-04-27 10:40] VITALS: BP 119/88; PULSE 81; RESP 18; O2SAT 94
[2022-04-27 10:46] LABS: POC Glucose,Bedside 167 (70-110)
[2022-04-27 10:47] LABS: Basophils # 0.1 K/mm3 (0-0.2); Basophils % 0.5 % (0.1-2.0); Eosinophils # 0.3 K/mm3 (0.0-0.4); Eosinophils % 2.2 % (0.1-12.0); Hematocrit 39.5 % (42.0-52.0); Hemoglobin 12.4 g/dL (14.1-18.0); Lymphocytes # 0.7 K/mm3 (0.7-4.5); Lymphocytes % 5.8 % (10-50); Mean Corpuscular HGB Conc 31.4 g/dL (31.8-35.4); Mean Corpuscular Hemoglobin 23.5 pg (27.0-31.2); Mean Corpuscular Volume 74.8 fl (80-94); Mean Platelet Volume 7.7 fl (7.4-10.4); Monocytes # 0.3 K/mm3 (0.1-1.0); Neutrophils # 10.2 K/mm3 (1.8-7.8); Neutrophils % 88.6 % (37.0-80.0); Platelet Count 195 K/mm3 (142-424); Red Blood Count 5.29 M/mm3 (4.60-6.20); Red Cell Distribution Width 16.5 % (11.5-17.5); White Blood Count 11.5 K/mm3 (4.8-10.8)
[2022-04-27 10:48] LABS: MANUAL DIFFERENTIAL MANUAL DIFFERENTIAL (MANUAL DIFF)
[2022-04-27 10:52] LABS: VBG HCO3 26.5 mmol/L (23-30); VBG Oxygen Saturation 44.9 % (50-70); VBG PCO2 42.1 mmol/L (35-51); VBG PH 7.42 mmol/L (7.31-7.41); VBG PO2 24.1 mmol/L (28-40); VBG Total CO2 27.8 mmol/L (23-27)
[2022-04-27 10:58] LABS: Alanine Aminotransferase 23 U/L (12-78); Albumin Level 4.1 g/dl (3.5-5.0); Albumin/Globulin Ratio 1.5 (1.1-1.8); Alkaline Phosphatase 105 U/L (38-126); Anion Gap 8.4 mEq/L (5-15); Aspartate Amino Transferase 28 U/L (17-59); Bilirubin,Total 0.7 mg/dl (0.2-1.3); Blood Urea Nitrogen 20 mg/dl (9-20); Calcium 8.3 mg/dl (8.4-10.2); Carbon Dioxide 31 mmol/L (22.0-30.0); Chloride 98 mmol/L (98-107); Creatinine Clearance Estimated 73 mL/min (50-200); Estimated Glomerular Filt Rate 55 ml/min (>60); GFR (African American) 66 ML/MIN (>60); Globulin 2.7 g/dL (1.3-3.2); Glucose 158 mg/dl (74-100); Potassium 3.4 mmoL/L (3.5-5.1); Sodium 134 mmol/L (136-145); Total Protein,Serum 6.8 g/dl (6.3-8.2)
[2022-04-27 11:00] VITALS: BP 138/75; PULSE 72; RESP 16; O2SAT 97
[2022-04-27 11:02] LABS: Lymphocytes % 9 % (10-50); Monocytes % 3 % (2-9); Neutrophils % 88 % (42-76); Platelet Estimate Normal; RBC Morphology Normal; Total Cells Counted 100
[2022-04-27 11:03] LABS: D-Dimer 1.63 ug/mL (0.0-0.5)
[2022-04-27 11:11] LABS: NT Pro Brain Natriuretic Pep. 233 pg/mL (0-125)
[2022-04-27 11:12] LABS: Troponin I < 0.01 ng/ml (0.00-0.034)
[2022-04-27 11:30] VITALS: BP 132/67; PULSE 75; RESP 16; O2SAT 97
--- NOTE | 2022-04-27 11:49 | CT_ITS ---
FINAL REPORT TECHNIQUE: Thin section axial CT images were obtained from the lung apices to the upper abdomen. IV contrast was administered. MIP 3-D reformats were obtained. This study was performed with techniques to keep radiation doses as low as reasonably achievable (ALARA). Individualized dose reduction techniques using automated exposure control or adjustment of mA and/or kV according to the patient's size were employed. CLINICAL HISTORY: unexplained dyspnea, elevated dimer FINDINGS: The heart size is normal. There is no adenopathy. There is no filling defect to suggest PE. There is no aortic dissection. There is no pericardial effusion. There are airspace infiltrates in the posterior right upper lobe and in the right lower lobe consistent with acute pneumonia. There are mild chronic changes in the lung bases. No pleural effusion. Limited images of the upper abdomen demonstrate a 3.3 cm benign-appearing cyst in the posterior left kidney. IMPRESSION: No pulmonary embolism or aortic dissection. Acute pneumonia. Reviewed, Interpreted and Dictated by Palomo Chowdhury MD Transcribed by Tate Whiting Authenticated and [facility]
--- NOTE | 2022-04-27 12:03 | PC.NURSE ---
pt to CT
--- NOTE | 2022-04-27 12:14 | PC.NURSE ---
Started a 2nd IV for CTA. also ordered diabetic tray for patient.
--- NOTE | 2022-04-27 12:25 | PC.NURSE ---
when pt returned from CT stated he felt like is blood sugar was low, fsbs checked result 103, notified ER -stated okay for pt to eat, norberty ordered for pt
[2022-04-27 12:26] VITALS: BP 150/69; PULSE 76; RESP 16; O2SAT 95
--- NOTE | 2022-04-27 12:27 | PC.NURSE ---
BRET WEAVER at
[2022-04-27 12:32] LABS: POC Glucose,Bedside 103 (70-110)
--- NOTE | 2022-04-27 12:32 | PC.NURSE ---
pt sitting up eating
[2022-04-27 13:05] VITALS: BP 125/65; PULSE 72; RESP 16; TEMP 36.4; O2SAT 96
== END 2022-04-27 13:05 | disposition home or self-care (01) ==
PROVIDERS: Emergency Provider Student in an Organized Health Care Education/Training Program; PCP Family Medicine
DX: J18.9 Pneumonia, unspecified organism (principal)
CPT/HCPCS: 36415; 71045; 71275; 80053; 82803; 82962; 83880; 84484; 85007; 85025; 85378; 93005; 99285; C9803; U0003; U0005

== ENCOUNTER → 2022-05-18 14:09 | Outpatient (CLI) | payer MEDICARE, OTHER, BC, SELFPAY ==
--- NOTE | 2022-05-18 14:18 | XR_ITS ---
FINAL REPORT CLINICAL HISTORY: Foot Pain COMPARISON: 03/09/2020 FINDINGS: RIGHT FOOT Three weight-bearing views of the right foot demonstrate no acute fracture or dislocation. There is severe hallux valgus deformity. There is lateral subluxation with the 1st digit at the 1st MTP joint, slightly worse. There is a chronic fracture of the 2nd metatarsal. There is pes planus. There are moderate degenerative changes. There are vascular calcifications. IMPRESSION: Severe hallux valgus deformity with lateral subluxation of the 1st digit at the 1st MTP joint, slightly worse. Other chronic and and degenerative findings. No acute abnormality identified. Reviewed, Interpreted and Dictated by Darwin Thompson III, MD Transcribed by Rody Vallejo Authenticated and [facility]
--- NOTE | 2022-05-18 14:18 | XR_ITS ---
FINAL REPORT CLINICAL HISTORY: Foot Pain FINDINGS: LEFT FOOT Three weight-bearing views of the left foot demonstrate no acute fracture or dislocation. There is severe hallux valgus deformity. There is lateral subluxation with the 1st digit at the 1st MTP joint. There is a chronic fracture of the 2nd metatarsal. There is pes planus. There are moderate degenerative changes. There are vascular calcifications. IMPRESSION: Severe hallux valgus deformity with lateral subluxation of the 1st digit at the 1st MTP joint. Other chronic and and degenerative findings. No acute abnormality identified. Reviewed, Interpreted and Dictated by Darwin Thompson III, MD Transcribed by Rody Vallejo Authenticated and [facility]
== END ==
PROVIDERS: PCP Family Medicine; Visit Provider Nurse Practitioner Family
DX: M79.672 Pain in left foot (principal); M79.671 Pain in right foot
CPT/HCPCS: 73630

== ENCOUNTER 2022-08-11 09:31 | Emergency (ER) | payer MEDICARE, OTHER, SELFPAY ==
[2022-08-11 09:32] VITALS: BP 156/69; PULSE 71; RESP 18; TEMP 36.7; O2SAT 94; BMI 31.0
--- NOTE | 2022-08-11 09:47 | EXP.UTC ---
Discharge Plan Disposition Patient Disposition: Home, Self-Care Condition: Good Prescriptions Prescriptions: New sulfamethoxazole-trimethoprim [Bactrim DS] 800-160 mg Tablet 1 tab PO BID Qty: 20 0RF mupirocin 2 % ointment 1 applic topical TID 7 Days Qty: 15 0RF No Action lisinopril 2.5 mg tablet 2.5 mg PO HS nitroglycerin 0.4 mg tablet, sublingual 0.4 mg SUBLINGUAL Q5MINP PRN (Reason: Chest Pain) Rx Instructions: do not exceed 3 doses per episode sucralfate [Carafate] 1 gram tablet 1 g PO ACHS potassium chloride 10 mEq tablet extended release 10 meq PO DAILY fluticasone propionate 50 mcg/actuation spray,suspension 2 spray INTRANASAL DAILY trazodone 150 mg tablet 150 mg PO HS duloxetine 60 mg capsule,delayed release(DR/EC) 60 mg PO BID allopurinol 100 mg tablet 100 mg PO DAILY aspirin [Adult Low Dose Aspirin] 81 mg tablet,delayed release (DR/EC) 81 mg PO DAILY donepezil 10 mg tablet 10 mg PO DAILY gabapentin 800 mg tablet 800 mg PO BID allopurinol 300 mg tablet 300 mg PO DAILY Hyper-Luis 3.5 % solution for nebulization 4 ml inhalation BID 90 Days Qty: 270 3RF Rx Instructions: 4 mL of 3% hypertonic saline nebulization every 12 hours every day to use with chest percussion therapy. This nebulization should be preceded by albuterol nebulization to avoid any bronchospasm. albuterol sulfate 1.25 mg/3 mL solution for nebulization 1.25 mg inhalation BID Qty: 270 3RF Rx Instructions: To be used before 3% normal saline nebulization. clopidogrel 75 MG tablet 75 mg PO DAILY levothyroxine 125 MCG tablet 125 mcg PO DAILYDM hydroxychloroquine 200 MG tablet 400 mg PO DAILY rosuvastatin 20 MG tablet 20 mg PO HS hydrocodone-acetaminophen 5-325 mg tablet 1 tab PO TIDP PRN (Reason: mild to moderate pain) Patient Comments: TAKE 1 TABLET BY MOUTH EVERY 8 HOURS colchicine 0.6 mg tablet 0.6 mg PO DAILY metoprolol succinate 25 mg tablet extended release 24 hr 12.5 mg PO DAILY ciclopirox 0.77 % gel 1 applic TOPICAL WEEKLY Rx Instructions: Apply daily to affected toenail. Smooth with emery board weekly. valacyclovir 500 mg tablet 500 mg PO DAILY Patient Comments: TAKE 1 TABLET BY MOUTH EVERY DAY tamsulosin 0.4 mg capsule 0.8 mg PO HS insulin glargine [Lantus Solostar U-100 Insulin] 100 unit/mL (3 mL) insulin pen 20 unit SQ HS levofloxacin 750 mg tablet 750 mg PO DAILY 5 Days Qty: 5 0RF Rx Instructions: start 12/10/21 furosemide 40 MG tablet 80 mg PO DAILY 30 Days Qty: 60 0RF Referrals Follow up/Referrals: Elijah Serra DO [Primary Care Provider] - See instructions Activity Restrictions/Add. Instructions Additional Instructions/Restrictions: Apply warm wet compresses to the affected sites three or four times per day for 15 minutes as tolerated. Take the antibiotics as directed. Apply the topical medication as directed. Follow up with your regular doctor. GO TO THE ER FOR ANY WORSENING SYMPTOMS OR CONCERNS Clinical Impressions Clinical Impression: Cutaneous abscess of left lower limb, Diabetes Instructions Patient Instructions: Trimethoprim/Sulfamethoxazole (Alternative Therapy), Mupirocin, DI for Skin Abscess Discharge ED Provider: Alfonso Hyatt [facility] General Stated complaint: Sore on back of LT leg Mode of Arrival: Ambulatory Source of Information: Patient Limitations: No Limitations Time Seen by Provider: 08/11/22 09:47 Description of Symptoms (Recalled from Triage Doc. by RN): Sore on the back of left leg/calf for one month. HEENT Symptoms (Recalled from RN notes): No Resp Symptoms (Recalled from RN notes): No Skin Symptoms (Recalled from RN notes): Yes MS Symptoms (Recalled from RN notes): No Functional Status (Recalled from RN notes): wnl History of Present Illnes
[2022-08-11 10:07] VITALS: BP 156/69; PULSE 71; RESP 18; TEMP 36.7; O2SAT 94
== END 2022-08-11 10:08 | disposition home or self-care (01) ==
PROVIDERS: Emergency Provider Nurse Practitioner Family; PCP Family Medicine
DX: L02.416 Cutaneous abscess of left lower limb (principal); E11.9 Type 2 diabetes mellitus without complications; I25.10 Atherosclerotic heart disease of native coronary artery without angina pectoris; I50.31 Acute diastolic (congestive) heart failure; I11.0 Hypertensive heart disease with heart failure; K21.9 Gastro-esophageal reflux disease without esophagitis; E78.5 Hyperlipidemia, unspecified; E03.9 Hypothyroidism, unspecified; Z79.4 Long term (current) use of insulin
CPT/HCPCS: 99212; 99214; G0463

== ENCOUNTER 2022-08-18 08:52 | Emergency (ER) | payer MEDICARE, OTHER, SELFPAY ==
[2022-08-18 08:53] VITALS: BP 119/52; PULSE 84; RESP 18; TEMP 36.8; O2SAT 96; BMI 31.0
[2022-08-18 09:02] VITALS: BMI 31.0
--- NOTE | 2022-08-18 09:02 | XR_ITS ---
FINAL REPORT CLINICAL HISTORY: Left hip pain after twisting COMPARISON: None FINDINGS: LEFT HIP: Two views of the left hip demonstrate no acute fracture or dislocation. The visualized bony structures are well aligned. There are postoperative changes from left hip arthroplasty. Soft tissue calcifications are noted in the left hip. There is probable left hip joint effusion. There are postoperative changes in left inguinal region. Vascular calcifications are noted. IMPRESSION: Postoperative changes. Probable left hip joint effusion. No acute bony abnormality. Reviewed, Interpreted and Dictated by Darwin Thompson III, MD Transcribed by Susan Escobar Authenticated and [facility]
--- NOTE | 2022-08-18 09:17 | PC.NURSE ---
DR JOHNSON AT BEDSIDE
--- NOTE | 2022-08-18 09:24 | PC.NURSE ---
PT TO XR
--- NOTE | 2022-08-18 09:28 | PC.NURSE ---
PT RETURNED FROM XR
[2022-08-18 09:30] VITALS: BP 155/64; PULSE 70; O2SAT 97
[2022-08-18 10:00] VITALS: BP 100/48; PULSE 61; O2SAT 95
--- NOTE | 2022-08-18 10:03 | PC.NURSE ---
UPDATED PT AT THIS TIME, NO NEEDS. CALL LIGHT WITHIN REACH
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
--- NOTE | 2022-08-18 10:27 | PC.NURSE ---
DR JOHNSON AT BEDSIDE TO UPDATE PT
[2022-08-18 10:36] VITALS: BP 108/52; PULSE 62; RESP 18; TEMP 36.7; O2SAT 98
== END 2022-08-18 10:38 | disposition home or self-care (01) ==
PROVIDERS: Emergency Provider Family Medicine; PCP Internal Medicine Adolescent Medicine
DX: M25.552 Pain in left hip (principal); X50.1XXA Overexertion from prolonged static or awkward postures, initial encounter; I25.10 Atherosclerotic heart disease of native coronary artery without angina pectoris; I11.0 Hypertensive heart disease with heart failure; I50.41 Acute combined systolic (congestive) and diastolic (congestive) heart failure; K21.9 Gastro-esophageal reflux disease without esophagitis; E78.5 Hyperlipidemia, unspecified; E03.9 Hypothyroidism, unspecified; E10.42 Type 1 diabetes mellitus with diabetic polyneuropathy
CPT/HCPCS: 73502; 99283

== ENCOUNTER → 2022-09-02 09:12 | Outpatient (CLI) | payer MEDICARE, OTHER, SELFPAY ==
[2022-09-02 09:37] LABS: Microscopic, Urine URINE MICROSCOPIC (MICROSCOPIC)
[2022-09-02 10:02] LABS: Hematocrit 33.7 % (42.0-52.0); Hemoglobin 10.5 g/dL (14.1-18.0); Mean Corpuscular HGB Conc 31.3 g/dL (31.8-35.4); Mean Corpuscular Hemoglobin 23.2 pg (27.0-31.2); Mean Corpuscular Volume 74.2 fl (80-94); Platelet Count 146 K/mm3 (142-424); Red Blood Count 4.53 M/mm3 (4.60-6.20); Red Cell Distribution Width 17.6 % (11.5-17.5); White Blood Count 3.7 K/mm3 (4.8-10.8)
[2022-09-02 10:03] LABS: Hemoglobin A1C 7.1 % (4.0-6.0)
[2022-09-02 10:04] LABS: Appearance,Urine CLEAR (Clear); Bilirubin,Urine Negative (Negative); Blood, Urine Negative (Negative); Color,Urine YELLOW (Yellow); Glucose,Urine (UA) Negative (Negative); Ketones,Urine Negative (Negative); Leukocyte Esterase,Urine Negative (Negative); Nitrate,Urine Negative (Negative); PH,Urine 5.5 (5.0-8.5); Protein,Urine Negative (Negative)
[2022-09-02 10:12] LABS: Creatinine,Urine Random 162 mg/dL (Not Estab.)
[2022-09-02 10:15] LABS: Squamous Epithelial Cell,Urine Occasional #/hpf (0-5); WBC,Urine Occasional #/hpf (0-3)
[2022-09-02 10:29] LABS: 25-OH Vitamin D, Total 51.7 ng/mL (30-100)
[2022-09-02 10:44] LABS: Alanine Aminotransferase 18 U/L (12-78); Albumin Level 3.8 g/dl (3.5-5.0); Albumin/Globulin Ratio 1.5 (1.1-1.8); Alkaline Phosphatase 104 U/L (38-126); Anion Gap 9.6 mEq/L (5-15); Aspartate Amino Transferase 25 U/L (17-59); Bilirubin,Total 0.7 mg/dl (0.2-1.3); Blood Urea Nitrogen 30 mg/dl (9-20); Calcium 8.6 mg/dl (8.4-10.2); Carbon Dioxide 29 mmol/L (22.0-30.0); Chloride 104 mmol/L (98-107); Estimated Glomerular Filt Rate 43 ml/min (>60); GFR (African American) 52 ML/MIN (>60); Globulin 2.6 g/dL (1.3-3.2); Glucose 243 mg/dl (74-100); Potassium 4.6 mmoL/L (3.5-5.1); Sodium 138 mmol/L (136-145); Total Protein,Serum 6.4 g/dl (6.3-8.2); Uric Acid 6.6 mg/dl (3.5-8.5)
[2022-09-02 10:56] LABS: Intact Parathyroid Hormone 86.4 pg/mL (7.5-53.5)
== END ==
LOC: LAB 09:13
PROVIDERS: PCP Family Medicine; Visit Provider Internal Medicine Nephrology
DX: N18.30 Chronic kidney disease, stage 3 unspecified (principal); I10 Essential (primary) hypertension; N40.0 Benign prostatic hyperplasia without lower urinary tract symptoms; R31.9 Hematuria, unspecified; E21.3 Hyperparathyroidism, unspecified; E10.9 Type 1 diabetes mellitus without complications; Z79.4 Long term (current) use of insulin
CPT/HCPCS: 36415; 80053; 81001; 82306; 82570; 83036; 83970; 84155; 84550; 85014; 85018; 85048; 85049

== ENCOUNTER → 2022-09-21 09:31 | Outpatient (CLI) | payer MEDICARE, OTHER, SELFPAY ==
--- NOTE | 2022-09-21 09:38 | NM_ITS ---
FINAL REPORT CLINICAL HISTORY: HYPERTHYROIDISM COMPARISON: None FINDINGS: PARATHYROID SCAN History: Hyperthyroidism Procedure: The patient received a dose of 19.9 millicuries of technetium 99m sestamibi. Images over the neck were obtained initially and after a two-hour delay. Findings: No focal persistent activity is identified to suggest a parathyroid adenoma. IMPRESSION: No evidence of a parathyroid adenoma. Reviewed, Interpreted and Dictated by Darwin Thompson III, MD Transcribed by Susan Escobar Authenticated and [facility]
== END ==
PROVIDERS: PCP Family Medicine; Visit Provider Internal Medicine Nephrology
DX: N18.30 Chronic kidney disease, stage 3 unspecified (principal); I10 Essential (primary) hypertension; N40.0 Benign prostatic hyperplasia without lower urinary tract symptoms; R31.9 Hematuria, unspecified; E10.9 Type 1 diabetes mellitus without complications; E21.3 Hyperparathyroidism, unspecified
CPT/HCPCS: 78071; A9500

== ENCOUNTER 2022-10-20 08:02 | Inpatient (IN) | payer MEDICARE, OTHER, SELFPAY ==
[2022-10-20] VITALS (24 sets, daily range): BP systolic 82–116; BP diastolic 33–48; PULSE 70–90; RESP 16–25; TEMP 36.6–36.9; O2SAT 94–100; BMI 36.9; BMI 31.4
--- NOTE | 2022-10-20 08:04 | XR_ITS ---
FINAL REPORT CLINICAL HISTORY: AMS, pna recently COMPARISON: 04/27/2022 FINDINGS: SINGLE-VIEW CHEST The heart size is normal. The mediastinum is normal. There are partially improved pulmonary opacities consistent with partially improved pneumonia. There is no pneumothorax. IMPRESSION: Partially improved pneumonia. Reviewed, Interpreted and Dictated by Darwin Thompson III, MD Transcribed by Beatriz Mulligan Authenticated and [facility]
--- NOTE | 2022-10-20 08:14 | HMH.EDGENADL ---
Discharge Plan Disposition Patient Disposition: Admitted Chief Complaint: Altered Mental Status Clinical Impressions Clinical Impression: DKA, type 1, Sepsis Discharge ED Provider: Baldemar Gacria General Adult HPI General Chief complaint: Altered Mental Status Stated complaint: hyperglycemia Time Seen by Provider: 10/20/22 08:02 Mode of Arrival: EMS Source of Information: EMS Limitations: Altered Mental Status Description of Symptoms (Recalled from ER Triage Doc. by RN): 66 yo M presents to ED via EMS for lethargy, and high glucose. EMS staff report they were called to seen for pt being insulin dependant, and only alter to voice. pt arrives responsive to voice, pt unable to give symptoms. pt does have left sided insulin pump, with right sided dexcom. pts states that dexcom was changed last night. History of Present Illness HPI narrative: 66-year-old male history of diabetes with Dexcom in place as well as insulin pump, CHF, CKD, hypertension, hyperlipidemia, PAD presenting with altered mental status. Per , patient had Dexcom placed 1 day prior to arrival. Overnight, she generally hears insulin pump activating, but did not hear back to bed all night, and today patient was minimally responsive. EMS was called. Patient was brought to the ER for further evaluation. Patient denies chest pain, nausea vomiting, abdominal pain, dysuria hematuria, fevers or chills, headache, vision changes. States that he feels tired, and is oriented to person, place, situation, but not time. Related Data Home Medications Medication Instructions Recorded Confirmed clopidogrel 75 mg tablet 75 mg PO DAILY platelet inhibitor 04/26/19 08/25/22 hydroxychloroquine 200 mg tablet 400 mg PO DAILY Arthritis 04/26/19 08/25/22 levothyroxine 125 mcg tablet 125 mcg PO DAILYDM hypothyroidism 04/26/19 08/25/22 rosuvastatin 20 mg tablet 20 mg PO HS Cholesterol 04/26/19 08/25/22 lisinopril 2.5 mg tablet 2.5 mg PO HS High blood pressure 02/04/20 08/25/22 nitroglycerin 0.4 mg sublingual 0.4 mg sublingual Q5MINP PRN Chest 02/04/20 08/25/22 tablet Pain sucralfate 1 gram tablet (Carafate) 1 g PO ACHS acid reflux 02/04/20 08/25/22 allopurinol 100 mg tablet 100 mg PO DAILY gout 04/15/20 08/25/22 duloxetine 60 mg capsule,delayed 60 mg PO BID Depression 04/15/20 08/25/22 release fluticasone propionate 50 2 spray intranasal DAILY Allergy 04/15/20 08/25/22 mcg/actuation nasal symptoms spray,suspension potassium chloride 10 mEq 10 meq PO DAILY Supplement 04/15/20 08/25/22 tablet,extended release trazodone 150 mg tablet 150 mg PO HS sleep 04/15/20 08/25/22 aspirin 81 mg tablet,delayed 81 mg PO DAILY Heart disease 10/20/21 08/25/22 release (Adult Low Dose Aspirin) hydrocodone 5 mg-acetaminophen 325 1 tab PO TIDP PRN mild to moderate 10/30/21 08/25/22 mg tablet pain ciclopirox 0.77 % topical gel 1 applic topical WEEKLY toenail 10/31/21 08/25/22 fungus colchicine (gout) 0.6 mg tablet 0.6 mg PO DAILY gout 10/31/21 08/25/22 metoprolol succinate 25 mg 12.5 mg PO DAILY High blood 10/31/21 08/25/22 tablet,extended release 24 hr pressure insulin glargine 100 unit/mL (3 20 unit SQ HS Diabetes 12/06/21 08/25/22 mL) subcutaneous pen (Lantus Solostar U-100 Insulin) tamsulosin 0.4 mg capsule 0.8 mg PO HS prostate 12/06/21 08/25/22 valacyclovir 500 mg tablet 500 mg PO DAILY anti-viral 12/06/21 08/25/22 allopurinol 300 mg tablet 300 mg PO DAILY 05/18/22 08/25/22 donepezil 10 mg tablet 10 mg PO DAILY 05/18/22 08/25/22 gabapentin 800 mg tablet 800 mg PO BID 05/18/22 08/25/22 Previous Rx's Medication Instructions Recorded furosemide 40 mg tablet 80 mg PO DAILY Fluid 30 days #60 12/09/21 tabs albuterol sulfate 1.25 mg/3 mL 1.25 mg (3 mL) inhalation BID #270 01/26/22 solution for nebulization mL sodium chloride 3.5 % for 4 ml inhalation BID 90 days #270 mL 01/26/22 nebulization (Hyper-Luis) mupirocin 2 % topical ointment 1 applic topical TID 7 days #15 07/0
--- NOTE | 2022-10-20 08:21 | PC.NURSE ---
Notified respiratory of VBG order and blood sent to laboratory
[2022-10-20 08:23] LABS: VBG Base Excess -10.8 mmol/L (-2.4-2.3); VBG HCO3 16.7 mmol/L (23-30); VBG Oxygen Saturation 83.4 % (50-70); VBG PCO2 40.1 mmol/L (35-51); VBG PH 7.24 mmol/L (7.31-7.41); VBG PO2 55.9 mmol/L (28-40); VBG Total CO2 17.9 mmol/L (23-27)
[2022-10-20 08:27] LABS: Activated Partial Thrombo Time 27.1 seconds (22.8-30.6)
[2022-10-20 08:29] LABS: Alanine Aminotransferase 29 U/L (12-78); Albumin Level 3.2 g/dl (3.5-5.0); Albumin/Globulin Ratio 1.2 (1.1-1.8); Alkaline Phosphatase 124 U/L (38-126); Anion Gap 24.8 mEq/L (5-15); Aspartate Amino Transferase 34 U/L (17-59); Bilirubin,Total 0.8 mg/dl (0.2-1.3); Blood Urea Nitrogen 42 mg/dl (9-20); Carbon Dioxide 16 mmol/L (22.0-30.0); Chloride 97 mmol/L (98-107); Creatinine Clearance Estimated 48 mL/min (50-200); Estimated Glomerular Filt Rate 32 ml/min (>60); GFR (African American) 38 ML/MIN (>60); Globulin 2.6 g/dL (1.3-3.2); Lipase 25 U/L (23-300); Potassium 5.8 mmoL/L (3.5-5.1); Sodium 132 mmol/L (136-145); Total Protein,Serum 5.8 g/dl (6.3-8.2)
[2022-10-20 08:30] LABS: Salicylate < 1.0 mg/dL (2.0-20.0)
[2022-10-20 08:39] LABS: Glucose 840 mg/dl (74-100)
[2022-10-20 08:40] LABS: Lactic Acid 4.7 mmol/L (0.7-2.1)
[2022-10-20 08:41] LABS: Basophils % 0.1 % (0.1-2.0); Eosinophils % 0.1 % (0.1-12.0); Hematocrit 37.2 % (42.0-52.0); Hemoglobin 10.6 g/dL (14.1-18.0); Lymphocytes # 0.3 K/mm3 (0.7-4.5); Lymphocytes % 5.6 % (10-50); Mean Corpuscular HGB Conc 28.5 g/dL (31.8-35.4); Mean Corpuscular Hemoglobin 23.3 pg (27.0-31.2); Mean Corpuscular Volume 81.6 fl (80-94); Monocytes # 0.3 K/mm3 (0.1-1.0); Monocytes % 5.2 % (1.7-9.3); Neutrophils # 4.8 K/mm3 (1.8-7.8); Platelet Count 183 K/mm3 (142-424); Red Blood Count 4.56 M/mm3 (4.60-6.20); Red Cell Distribution Width 18.1 % (11.5-17.5); Troponin I 0.02 ng/ml (0.00-0.034); White Blood Count 5.4 K/mm3 (4.8-10.8)
[2022-10-20 08:46] LABS: T4 (Thyroxine) 6.7 ug/dl (5.53-11.0)
--- NOTE | 2022-10-20 08:46 | PC.NURSE ---
Dr Garcia speaking with Hospitalist for possible admission
[2022-10-20 08:47] LABS: MANUAL DIFFERENTIAL MANUAL DIFFERENTIAL (MANUAL DIFF)
[2022-10-20 08:48] LABS: Acetone, Serum (Rapid) Small (None Detect)
--- NOTE | 2022-10-20 08:53 | ECG_ITS ---
APPROVED REPORT Exam: Resting ECG HR:81 bpm ECG Measurements Heart Rate 81 AXES VT 184 P 52 QRSd 149 QRS -63 QT 435 T 59 QTc 472 Conclusion SINUS RHYTHM POSSIBLE LEFT ATRIAL ENLARGEMENT [-0.1mV P-WAVE IN V1/V2] RIGHT BUNDLE BRANCH BLOCK [120+ ms QRS DURATION, UPRIGHT V1, 40+ ms S IN I/aVL/V4/V5/V6] LEFT ANTERIOR FASCICULAR BLOCK [QRS AXIS <= -45, QR IN I, RS IN II] POSSIBLE LEFT VENTRICULAR HYPERTROPHY [VOLTAGE CRITERIA PLUS LAE OR QRS WIDENING] POSSIBLE SEPTAL MYOCARDIAL INFARCTION , OF INDETERMINATE AGE [30 ms Q WAVE IN V1/V2] ABNORMAL ECG UNCONFIRMED REPORT Electronically signed by : Jonnie Santos MD 10/22/2022 16:10:12
[2022-10-20 08:59] LABS: Thyroid Stimulating Hormone 2.42 uIU/mL (0.465-4.68)
--- NOTE | 2022-10-20 09:01 | EXP.HP ---
History of Present Illness *Admission Date: 10/20/22 *Reason for visit:: Chief complaint: Altered mental status *History of present illness: This is a 66-year-old male that presents to [facility] emergency department accompanied by his of 35 years for concerns of altered mental status. The patient is minimally responsive so the history is acquired from the at bedside and medical record. He went to bed last night and reports not hearing his insulin pump. This morning it was difficult to arouse him and she became concerned so she brought him to the ED where dysfunction of the insulin pump was identified. His presenting glucose was 888 with acidosis on a venous blood gas and elevated anion gap. The reports that the patient has had previous episodes of DKA and his presentation is similar. She reports his past medical history is significant for diabetes on insulin pump with associated neuropathy, coronary artery disease, chronic kidney disease and chronic anemia. His ED chest x-ray identified pneumonia. He was started on IV fluid resuscitation and IV insulin and his care was transitioned to our stepdown unit. [facility] Medical History Bilateral lower extremity edema Bronchiectasis type 1 CAD (coronary artery disease) Cellulitis COVID-19 Diastolic CHF, acute Fall GERD (gastroesophageal reflux disease) Hyperlipidemia Hypertension Hypothyroidism Insulin pump fitting or adjustment Laceration of lower leg Pneumonia Recurrent bacterial pneumonia Recurrent pneumonia Side effects of vaccination Staphylococcal pneumonia Traumatic ecchymosis of ankle Type 1 diabetes mellitus with diabetic polyneuropathy Surgical History H/O bilateral hip replacements H/O thyroidectomy History of coronary 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) Total knee replacement status Family History Mother , at age 79 Coronary artery disease Father , at age 92 COVID-19 Social History (Updated 10/20/22 @ 11:51 by Yu Esteban RN) Smoking Status: Former smoker alcohol intake: never current occupational status: employed Travel in the last 8 weeks: None household members: spouse housing: house lives independently: Yes marital status: number of children: 5 education level: high school service: No mcc: No current occupation: [employer] diet: diabetic marianna/quaker: Congregational Review of Systems Review of Systems Review of systems:: unable to obtain Meds Home Medications and Allergies Home Medications Medication Instructions Recorded Confirmed Type clopidogrel 75 mg tablet 75 mg PO DAILY platelet inhibitor 04/26/19 10/20/22 History hydroxychloroquine 200 mg tablet 400 mg PO DAILY Arthritis 04/26/19 10/20/22 History levothyroxine 125 mcg tablet 125 mcg PO DAILY Thyroid 04/26/19 10/20/22 History rosuvastatin 20 mg tablet 20 mg PO HS Cholesterol 04/26/19 10/20/22 History lisinopril 2.5 mg tablet 2.5 mg PO HS High blood pressure 02/04/20 10/20/22 History nitroglycerin 0.4 mg sublingual 0.4 mg sublingual Q5MINP PRN Chest 02/04/20 10/20/22 History tablet Pain sucralfate 1 gram tablet (Carafate) 1 g PO ACHS acid reflux 02/04/20 10/20/22 History duloxetine 60 mg capsule,delayed 60 mg PO BID Mood 04/15/20 10/20/22 History release fluticasone propionate 50 2 spray intranasal DAILY Allergy 04/15/20 10/20/22 History mcg/actuation nasal symptoms spray,suspension potassium chloride 10 mEq 10 meq PO DAILY Supplement 04/15/20 10/20/22 History tablet,extended release aspirin 81 mg tablet,delayed 81 mg PO DAILY Heart disease 10/20/21 10/20/22 History release (Adult Low Dose Aspirin) hydrocodone 5 mg-acetaminophen 325 1 tab PO TID
[2022-10-20 09:22] LABS: Lymphocytes % 11 % (10-50); Monocytes % 2 % (2-9); Neutrophils % 87 % (42-76); Total Cells Counted 100
[2022-10-20 09:23] LABS: Anisocytosis 2+; Hemoglobin A1C 7.6 % (4.0-6.0); Hypochromasia 2+; Microcytosis 1+; Platelet Estimate Slight Decrease
--- NOTE | 2022-10-20 09:31 | EXP.PHA.CONS ---
Pharmacy Consult Date: 10/20/22 Time: 09:31 Referring provider: DR DESAI Reason for Consult:: VANCOMYCIN DOSING CONSULT Allergies Allergy/AdvReac Type Severity Reaction Status Date / Time iodine [IODINE] Allergy Mild Verified 08/25/22 08:34 adhesive tape Allergy Verified 08/25/22 08:34 Home Medications Medication Instructions Recorded Confirmed Type clopidogrel 75 mg tablet 75 mg PO DAILY platelet inhibitor 04/26/19 08/25/22 History hydroxychloroquine 200 mg tablet 400 mg PO DAILY Arthritis 04/26/19 08/25/22 History levothyroxine 125 mcg tablet 125 mcg PO DAILYDM hypothyroidism 04/26/19 08/25/22 History rosuvastatin 20 mg tablet 20 mg PO HS Cholesterol 04/26/19 08/25/22 History lisinopril 2.5 mg tablet 2.5 mg PO HS High blood pressure 02/04/20 08/25/22 History nitroglycerin 0.4 mg sublingual 0.4 mg sublingual Q5MINP PRN Chest 02/04/20 08/25/22 History tablet Pain sucralfate 1 gram tablet (Carafate) 1 g PO ACHS acid reflux 02/04/20 08/25/22 History allopurinol 100 mg tablet 100 mg PO DAILY gout 04/15/20 08/25/22 History duloxetine 60 mg capsule,delayed 60 mg PO BID Depression 04/15/20 08/25/22 History release fluticasone propionate 50 2 spray intranasal DAILY Allergy 04/15/20 08/25/22 History mcg/actuation nasal symptoms spray,suspension potassium chloride 10 mEq 10 meq PO DAILY Supplement 04/15/20 08/25/22 History tablet,extended release trazodone 150 mg tablet 150 mg PO HS sleep 04/15/20 08/25/22 History aspirin 81 mg tablet,delayed 81 mg PO DAILY Heart disease 10/20/21 08/25/22 History release (Adult Low Dose Aspirin) hydrocodone 5 mg-acetaminophen 325 1 tab PO TIDP PRN mild to moderate 10/30/21 08/25/22 History mg tablet pain ciclopirox 0.77 % topical gel 1 applic topical WEEKLY toenail 10/31/21 08/25/22 History fungus colchicine (gout) 0.6 mg tablet 0.6 mg PO DAILY gout 10/31/21 08/25/22 History metoprolol succinate 25 mg 12.5 mg PO DAILY High blood 10/31/21 08/25/22 History tablet,extended release 24 hr pressure insulin glargine 100 unit/mL (3 20 unit SQ HS Diabetes 12/06/21 08/25/22 History mL) subcutaneous pen (Lantus Solostar U-100 Insulin) tamsulosin 0.4 mg capsule 0.8 mg PO HS prostate 12/06/21 08/25/22 History valacyclovir 500 mg tablet 500 mg PO DAILY anti-viral 12/06/21 08/25/22 History furosemide 40 mg tablet 80 mg PO DAILY Fluid 30 days #60 12/09/21 08/25/22 Rx tabs albuterol sulfate 1.25 mg/3 mL 1.25 mg (3 mL) inhalation BID #270 01/26/22 08/25/22 Rx solution for nebulization mL sodium chloride 3.5 % for 4 ml inhalation BID 90 days #270 mL 01/26/22 08/25/22 Rx nebulization (Hyper-Luis) allopurinol 300 mg tablet 300 mg PO DAILY 05/18/22 08/25/22 History donepezil 10 mg tablet 10 mg PO DAILY 05/18/22 08/25/22 History gabapentin 800 mg tablet 800 mg PO BID 05/18/22 08/25/22 History mupirocin 2 % topical ointment 1 applic topical TID 7 days #15 08/11/22 08/25/22 Rx grams sulfamethoxazole 800 1 tab PO BID #20 tabs 08/11/22 08/25/22 Rx mg-trimethoprim 160 mg tablet (Bactrim DS) New Prescriptions to Start Prescriptions: Height: 1.65 m Weight: 100.698 kg Laboratory Results:: Laboratory Results - last 24 hr 10/20/22 08:02: WBC 5.4, RBC 4.56 L, Hgb 10.6 L, Hct 37.2 L, MCV 81.6, MCH 23.3 L, MCHC 28.5 L, RDW 18.1 H, Plt Count 183, MPV 8.0, Neut % (Auto) 89.0 H, Lymph % (Auto) 5.6 L, [place] % (Auto) 5.2, Eos % (Auto) 0.1, Baso % (Auto) 0.1, Neut # (Auto) 4.8, Lymph # (Auto) 0.3 L, [place] # (Auto) 0.3, Eos # (Auto) 0.0, Baso # (Auto) 0.0, Total Counted 100, Neutrophils % (Manual) 87 H, Lymphocytes % (Manual) 11, Monocytes % (Manual) 2, Platelet Estimate Slight decrease, Hypochromasia 2+, Anisocytosis 2+, Microcytosis 1+, APTT 27.1, Sodium 132 L, Potassium 5.8 H, Chloride 97 L, Carbon Dioxide 16 L, Anion Gap 24.8 H, BUN 42 H, Creatinine 2.10 H, Estimated Creat Clear 48, Estimated GFR 32 L, Est GFR ( Amer) 38 L, Glucose 840 H*, Hemoglobin A1c 7.6 H, Lactate 4.7 H,
[2022-10-20 09:33] LABS: Phosphorous 6.5 mg/dl (2.5-4.5)
--- NOTE | 2022-10-20 09:49 | PC.NURSE ---
at 949 am rechecked pts blood glucose level and reading still read High.
--- NOTE | 2022-10-20 09:53 | PC.NURSE ---
rounded on patient and family; no other needs at this time. call lugo within reach
--- NOTE | 2022-10-20 09:53 | PC.NURSE ---
report called to [address] on second floor
--- NOTE | 2022-10-20 10:13 | HMH.PHAINT1 ---
Pharmacy Intervention Comments: Medication history complete, medications verified with fill history. - Juana Jung, PharmD Candidate 2023
--- NOTE | 2022-10-20 10:21 | PC.NURSE ---
arrived by stretcher from ED
[2022-10-20 10:34] LABS: Glucose,Random 818 mg/dL (74-100)
--- NOTE | 2022-10-20 10:37 | PC.NURSE ---
lab called with random glucose result of 818 drawn at 1001, pt on insulin drip per DKA protocol at this time/upon arrival to 216 at 10 units/hr (drip only started at 0934), will increase insulin drip by 50% per DKA protocol=15units/hr and will recheck another fsbs at 1130 notified MD Harvey of critical result and that titrating drip per DKA protocol, no new orders at this time
--- NOTE | 2022-10-20 10:37 | PC.NURSE ---
lab called with random glucose result of 818 drawn at 1001, pt on insulin drip per DKA protocol at this time at 15 [place] [id number], will continue insulin drip at 15units/hr and will recheck another fsbs at 1100 notified MD Harvey of critical result, no new orders at this time
--- NOTE | 2022-10-20 11:18 | PC.NURSE ---
checked fsbs, glucometer read HI, ordered stat random glucose to check glucose as pt on insulin drip at this time
[2022-10-20 12:11] LABS: Reflex Lactic Add Lactic Reflex
[2022-10-20 12:39] LABS: Glucose,Random 711 mg/dL (74-100)
--- NOTE | 2022-10-20 12:52 | PC.NURSE ---
glucose 711, continuing insulin drip at 15units/hr as glucose has dropped from 818 to 711 (over 100mg/dL/hr), will recheck another fsbs at 1400
--- NOTE | 2022-10-20 13:47 | PC.NURSE ---
notified MD Harvey of pt's critical lactic of 4.0 (down from 4.7), no new orders at this time
--- NOTE | 2022-10-20 15:00 | PC.NURSE ---
pt's oxygen saturation 87-89% RA, placed 1LNC on pt and sats 92-98%
[2022-10-20 15:07] LABS: Anion Gap 17.7 mEq/L (5-15); Blood Urea Nitrogen 50 mg/dl (9-20); Calcium 8.1 mg/dl (8.4-10.2); Carbon Dioxide 18 mmol/L (22.0-30.0); Chloride 101 mmol/L (98-107); Creatinine Clearance Estimated 45 mL/min (50-200); Estimated Glomerular Filt Rate 30 ml/min (>60); GFR (African American) 36 ML/MIN (>60); Potassium 3.7 mmoL/L (3.5-5.1); Sodium 133 mmol/L (136-145)
[2022-10-20 15:10] LABS: Reflex Lactic (2 hrs) Add Lactic Reflex
[2022-10-20 15:10] LABS: Glucose 604 mg/dl (74-100)
[2022-10-20 15:20] LABS: Troponin I 0.04 ng/ml (0.00-0.034)
[2022-10-20 16:21] LABS: Microscopic, Urine URINE MICROSCOPIC (MICROSCOPIC)
[2022-10-20 16:33] LABS: Appearance,Urine CLEAR (Clear); Bilirubin,Urine Negative (Negative); Blood, Urine Negative (Negative); Color,Urine YELLOW (Yellow); Glucose,Urine (UA) 3+ (Negative); Ketones,Urine TRACE (Negative); Leukocyte Esterase,Urine Negative (Negative); Nitrate,Urine Negative (Negative); PH,Urine 5.5 (5.0-8.5); Protein,Urine Negative (Negative); Specific Gravity, Urine >= 1.030 (1.005-1.030); Urobilinogen,Urine 0.2 EU/dl (0.2)
--- NOTE | 2022-10-20 16:36 | PC.NURSE ---
1450-notified MD Harvey that pt's map is still less than 60 at this time, MD Harvey instructed this RN to start NS at 150mL/hr maintenance fluid and if bp still low after start MIVF then give 1L at 250mL for 4 hours 1511-82/38 (52), increased MIVF to 250mL/hr 1630-bp 81/37 (51), notified MD Harvey that pt's map's still low after MIVF going at 250mL for a while, stated to let that liter complete and then will reassess if pt needs other interventions for hypotension
[2022-10-20 17:09] LABS: Anion Gap 17.5 mEq/L (5-15); Blood Urea Nitrogen 53 mg/dl (9-20); Calcium 8.2 mg/dl (8.4-10.2); Carbon Dioxide 18 mmol/L (22.0-30.0); Chloride 103 mmol/L (98-107); Creatinine Clearance Estimated 43 mL/min (50-200); Estimated Glomerular Filt Rate 28 ml/min (>60); GFR (African American) 34 ML/MIN (>60); Potassium 3.5 mmoL/L (3.5-5.1); Sodium 135 mmol/L (136-145)
[2022-10-20 17:10] LABS: Lactic Acid Follow up (RFLX 2) 2.1 mmol/L (0.7-2.1)
[2022-10-20 17:12] LABS: Glucose 480 mg/dl (74-100)
--- NOTE | 2022-10-20 17:12 | PC.NURSE ---
MD Harvey rounding on pt and spoke with pt's family at bedside, notified that pt had critical fsbs of 480, instructed this RN that once pt's fsbs gets below 250 to start the D5 per protocol
[2022-10-20 17:22] LABS: Troponin I 0.06 ng/ml (0.00-0.034)
[2022-10-20 17:56] LABS: POC Glucose,Bedside 426 (70-110)
[2022-10-20 17:56] LABS: POC Glucose,Bedside 529 (70-110)
[2022-10-20 17:56] LABS: POC Glucose,Bedside 476 (70-110)
[2022-10-20 18:21] LABS: NT Pro Brain Natriuretic Pep. 1770 pg/mL (0-125)
[2022-10-20 18:29] LABS: Procalcitonin 3.17 ng/mL (0.0-2.0)
--- NOTE | 2022-10-20 18:38 | ECG_ITS ---
APPROVED REPORT Exam: Resting ECG HR:77 bpm ECG Measurements Heart Rate 77 AXES ND 185 P 48 QRSd 125 QRS -43 QT 425 T 64 QTc 456 Conclusion SINUS RHYTHM LEFT AXIS DEVIATION [QRS AXIS < -30] POSSIBLE RIGHT VENTRICULAR CONDUCTION DELAY [RSR (QR) IN V1/V2] LEFT VENTRICULAR HYPERTROPHY AND ST-T CHANGE [VOLTAGE CRITERIA PLUS ST/T ABNORMALITY] POSSIBLE ANTERIOR MYOCARDIAL INFARCTION , PROBABLY OLD [30 ms Q WAVE IN V3/V4, OR R < 0.2 mV IN V4] ABNORMAL ECG UNCONFIRMED REPORT Electronically signed by : Jonnie Santos MD 10/22/2022 16:06:03
[2022-10-20 19:05] LABS: POC Glucose,Bedside 345 (70-110)
[2022-10-20 19:05] LABS: POC Glucose,Bedside 364 (70-110)
[2022-10-20 21:15] LABS: POC Glucose,Bedside 214 (70-110)
[2022-10-20 21:15] LABS: POC Glucose,Bedside 249 (70-110)
[2022-10-20 21:27] LABS: Anion Gap 16.1 mEq/L (5-15); Blood Urea Nitrogen 54 mg/dl (9-20); Calcium 8.4 mg/dl (8.4-10.2); Carbon Dioxide 17 mmol/L (22.0-30.0); Chloride 107 mmol/L (98-107); Creatinine Clearance Estimated 45 mL/min (50-200); Estimated Glomerular Filt Rate 30 ml/min (>60); GFR (African American) 36 ML/MIN (>60); Glucose 199 mg/dl (74-100); Potassium 3.1 mmoL/L (3.5-5.1); Sodium 137 mmol/L (136-145)
[2022-10-20 22:07] LABS: POC Glucose,Bedside 152 (70-110)
[2022-10-20 23:04] LABS: POC Glucose,Bedside 107 (70-110)
[2022-10-20 23:11] LABS: POC Glucose,Bedside 118 (70-110)
[2022-10-20 23:34] LABS: ABG Base Excess -5.5 mmol/L (-2.4-2.3); ABG HCO3 20.2 mmhg (22.0-26.0); ABG Oxygen Saturation 96 % (90-100); ABG PCO2 38.2 mmhg (35.0-45.0); ABG PH 7.34 mmol/L (7.35-7.45); ABG PO2 84.2 mmhg (80-100); ABG TCO2 21.4 mmhg (23-27)
[2022-10-20 23:35] LABS: Allen's Test Acceptable; Source Right Radial
[2022-10-21] VITALS (29 sets, daily range): BP systolic 97–148; BP diastolic 45–85; PULSE 74–96; RESP 16–20; TEMP 36.7–37.2; O2SAT 63–99; BMI 31.5
[2022-10-21 00:03] LABS: POC Glucose,Bedside 85 (70-110)
[2022-10-21 00:03] LABS: POC Glucose,Bedside 87 (70-110)
[2022-10-21 01:00] LABS: POC Glucose,Bedside 52 (70-110)
[2022-10-21 01:00] LABS: POC Glucose,Bedside 56 (70-110)
[2022-10-21 01:47] LABS: Chloride 110 mmol/L (98-107); Potassium 3.6 mmoL/L (3.5-5.1); Sodium 140 mmol/L (136-145)
[2022-10-21 01:50] LABS: Acetone, Serum (Rapid) None Detected (None Detect); Anion Gap 12.6 mEq/L (5-15); Blood Urea Nitrogen 50 mg/dl (9-20); Calcium 8.8 mg/dl (8.4-10.2); Carbon Dioxide 21 mmol/L (22.0-30.0); Creatinine Clearance Estimated 43 mL/min (50-200); Estimated Glomerular Filt Rate 28 ml/min (>60); GFR (African American) 34 ML/MIN (>60); Glucose 52 mg/dl (74-100)
[2022-10-21 05:19] LABS: POC Glucose,Bedside 166 (70-110)
[2022-10-21 05:19] LABS: POC Glucose,Bedside 83 (70-110)
[2022-10-21 05:19] LABS: POC Glucose,Bedside 61 (70-110)
[2022-10-21 05:19] LABS: POC Glucose,Bedside 122 (70-110)
[2022-10-21 05:19] LABS: POC Glucose,Bedside 253 (70-110)
[2022-10-21 05:22] LABS: Basophils % 0.3 % (0.1-2.0); Chloride 109 mmol/L (98-107); Eosinophils # 0.1 K/mm3 (0.0-0.4); Eosinophils % 1.4 % (0.1-12.0); Hematocrit 34.2 % (42.0-52.0); Hemoglobin 10.6 g/dL (14.1-18.0); Lymphocytes # 0.8 K/mm3 (0.7-4.5); Lymphocytes % 8.6 % (10-50); Mean Corpuscular Hemoglobin 23.7 pg (27.0-31.2); Mean Corpuscular Volume 76.3 fl (80-94); Mean Platelet Volume 7.5 fl (7.4-10.4); Monocytes # 0.6 K/mm3 (0.1-1.0); Monocytes % 6.5 % (1.7-9.3); Neutrophils # 7.7 K/mm3 (1.8-7.8); Neutrophils % 83.2 % (37.0-80.0); Platelet Count 227 K/mm3 (142-424); Red Blood Count 4.48 M/mm3 (4.60-6.20); Red Cell Distribution Width 18.6 % (11.5-17.5); White Blood Count 9.3 K/mm3 (4.8-10.8)
[2022-10-21 05:23] LABS: Potassium 4.2 mmoL/L (3.5-5.1); Sodium 137 mmol/L (136-145)
[2022-10-21 05:26] LABS: Anion Gap 13.2 mEq/L (5-15); Blood Urea Nitrogen 46 mg/dl (9-20); Calcium 8.6 mg/dl (8.4-10.2); Carbon Dioxide 19 mmol/L (22.0-30.0); Creatinine Clearance Estimated 45 mL/min (50-200); Estimated Glomerular Filt Rate 30 ml/min (>60); GFR (African American) 36 ML/MIN (>60); Glucose 233 mg/dl (74-100); Phosphorous 3.7 mg/dl (2.5-4.5)
[2022-10-21 05:27] LABS: INR 1.16 (0.9-1.1); Prothrombin Time 12.4 seconds (10.1-12.5)
[2022-10-21 05:39] LABS: Iron 26 ug/dL (49-181)
[2022-10-21 05:49] LABS: Total Iron Binding Capacity 320 ug/dL (261-462)
--- NOTE | 2022-10-21 06:00 | CA_ITS ---
APPROVED REPORT EXAM: Comprehensive 2D, Doppler, and color-flow Echocardiogram Librarian Specialist: Thi Tracey, RCS, RVS Ht: 5 ft 10 in Wt: 219lbs BSA: 2.17 BP: 130/57 mmHg Indications: DKA, Elevated troponin, CAD, CHF, CABG, HTN, ex-smoker 2D Dimensions Aortic Root 3.61 cm M: 3.1 - 3.7 LA Volume 70.10 mL Left Atrium 3.39 cm M: 3.0 - 4.0 LA Volume Index 32.30 mL/m2 (M/F) 16-34 LVOT 2.10 cm (M/F) 1.5-2.5 M-Mode Dimensions RVDd 2.84 cm (0.9-2.6) LA Diam 4.36 cm (1.9-4.0) LVDd 5.50 cm (3.5-5.7) Ao Diam 3.71 cm (2.0-3.7) LVDs 3.71 cm (3.5-5.7) IVSd 0.95 cm (0.6-1.1) PWd 0.97 cm (0.6-1.1) EF (Teich) 60.30% EPSs 0.44 cm FS 32.50% EDV (Teich) 147.40 mL TAPSE 1.98 (<1.7) ESV (Teich) 58.50 mL LV Diastology E Decel Time 157.00 (160-240 msec) E/A Ratio 1.63 MED E' 10.20 (< 7 cm/sec) MED A' 15.00 cm/s E'/MED E' Ratio 9.30 (>14) LAT E' 14.20 (<10 cm/sec) LAT A' 18.40 cm/s E/LAT E' Ratio 6.68 (>14) Aortic Valve LVOT Max 120.00 (70-110 cm/s) LVOT VTI 23.11 cm AoV Peak Eriberto. 182.00 (50-130 cm/s) AO Peak GR. 13.20 mmHg AO Mean GR. 6.50 (<5 mmHg) AO VTI 30.88 (18-25 cm) JAMI (VTI) 2.90 (2.5-4.5 cm2) Mitral Valve MV A Velocity 58.00 (40-130 cm/s) E/A Ratio 1.63 MV Decel. Time 157.00 (160-240 ms) Pulmonary Valve PV Peak Velocity 140.00 (50-150 cm/s) Tricuspid Valve TR P. Velocity 268.00 cm/s RAP Estimate 10.00 mmHg RVSP 38.80 mmHg Left Ventricle The left ventricle is normal size. The left ventricular systolic function is normal. The left ventricular ejection fraction is within the normal range. There is normal left ventricular wall thickness. There is normal LV segmental wall motion. The left ventricular diastolic function is normal. LVEF is 60%. Right Ventricle The right ventricle is mildly dilated. The right ventricular systolic function is normal. Atria The left atrium size is normal. The right atrium size is normal. There is no Doppler evidence of interatrial shunt. Aortic Valve The aortic valve is normal in structure. There is no aortic valvular stenosis. Trace aortic regurgitation. Mitral Valve The mitral valve is normal in structure. No evidence of mitral valve stenosis. Trace mitral regurgitation. Tricuspid Valve The tricuspid valve leaflets are thin and pliable. Mild tricuspid regurgitation. RVSP is 28 mmHg + RA pressure. Pulmonic Valve The pulmonary valve is normal in structure. Trace pulmonic regurgitation. Great Vessels The aortic root is normal in size. The ascending aorta is normal in size. The IVC is not well visualized. Pericardium There is no pericardial effusion. Other Information Study Quality: Fair Conclusion Normal biventricular systolic function. Mildly dilated RV. No significant valvular disease. Elevated RVSP (28 mmHg + RA pressure) Electronically signed by : Terra Stevenson, 10/25/2022 16:43:51
[2022-10-21 06:27] LABS: Vitamin B12 367 pg/mL (239-931)
--- NOTE | 2022-10-21 07:26 | PC.NURSE ---
10/20: @ 1900 levo @ 4mcg/min @ 2200 levo 4mcg/min to 8 mcg/min @ 2227 insulin gtt 12.5 units/hr @2258 insulin gtt 12.5units/hr to 6.25units/hr @ 2322 insulin gtt 6.25 units/hr to 3units/hr 10/21: @0030 insulin gtt off @ 0201 this rn notified NICU RN of bmp results; psychiatric np verbal orders to wait for next bmp for subq insulin orders @ 0600 this rn notified NICU RN of bmp results; awaiting orders
--- NOTE | 2022-10-21 07:43 | PC.NURSE ---
levo gtt turned down to 6 mcg/min
--- NOTE | 2022-10-21 09:16 | PC.NURSE ---
notified Dr. Harvey of need for sliding scale insulin order, insulin gtt turned off on previous shift
[2022-10-21 11:30] LABS: POC Glucose,Bedside 427 (70-110)
--- NOTE | 2022-10-21 12:49 | PC.NURSE ---
0800 levo decreased to 4 0830 levo decreased to 2 0900 levo turned off
--- NOTE | 2022-10-21 14:22 | EXP.PN ---
Subjective *Date: 10/21/22 *Time: 14:22 Interval history: The patient is seen and examined today. I am accompanied by nursing staff. The patient is accompanied by his . He reports that he is feeling better and denies any chest pain, dyspnea or confusion. He is tolerating p.o. and nursing staff report that he remains afebrile with stable vital signs and saturating appropriately on room air. His blood sugars identifies improvement. His care has been transitioned to basal and sliding scale insulin with routine labs. His morning labs identify a CBC with a normal white blood cell count and stable hemoglobin, platelets 227. His iron saturation is 8. His morning chemistry panel identifies normal sodium, potassium anion gap 13 BUN 46 and creatinine 2.2 with baseline 1.5. He is tolerating his IV antibiotic with no adverse events. Exam Data for Last 24 hours Vital signs and Labs for Last 24 Hours: Temp Pulse Resp BP Pulse Ox O2 Del Method O2 Flow Rate 98.6 F 96 H 18 123/51 L 99 Room Air 1 10/21/22 11:41 10/21/22 11:41 10/21/22 11:41 10/21/22 11:41 10/21/22 11:41 10/21/22 11:41 10/21/22 09:30 Laboratory Results - last 24 hr 10/20/22 14:40: Sodium 133 L, Potassium 3.7 D, Chloride 101, Carbon Dioxide 18 L, Anion Gap 17.7 H, BUN 50 H, Creatinine 2.20 H, Estimated Creat Clear 45, Estimated GFR 30 L, Est GFR ( Amer) 36 L, Glucose 604 H* D, Calcium 8.1 L, Troponin I 0.04 H 10/20/22 15:49: Urine Color Yellow, Urine Appearance Clear, Urine pH 5.5, Ur Specific [place] >= 1.030, Urine Protein Negative, Urine Glucose (UA) 3+, Urine Ketones Trace, Urine Blood Negative, Urine Nitrate Negative, Urine Bilirubin Negative, Urine Urobilinogen 0.2, Ur Leukocyte Esterase Negative, Urine RBC None, Urine WBC None, Ur Squamous Epith Cells 3-5, Urine Bacteria None 10/20/22 15:54: POC Glucose 529 H* 10/20/22 16:50: Sodium 135 L, Potassium 3.5, Chloride 103, Carbon Dioxide 18 L, Anion Gap 17.5 H, BUN 53 H, Creatinine 2.30 H, Estimated Creat Clear 43, Estimated GFR 28 L, Est GFR ( Amer) 34 L, Glucose 480 H* D, Lactate 2.1, Calcium 8.2 L, Troponin I 0.06 H, NT-Pro-B Natriuret Pep 1770 H, Procalcitonin 3.17 H 10/20/22 17:00: POC Glucose 476 H* 10/20/22 17:47: POC Glucose 426 H* 10/20/22 18:24: POC Glucose 364 H* 10/20/22 18:56: POC Glucose 345 H* 10/20/22 20:03: POC Glucose 249 H 10/20/22 21:00: Sodium 137, Potassium 3.1 L, Chloride 107, Carbon Dioxide 17 L, Anion Gap 16.1 H, BUN 54 H, Creatinine 2.20 H, Estimated Creat Clear 45, Estimated GFR 30 L, Est GFR ( Amer) 36 L, Glucose 199 H D, POC Glucose 214 H, Calcium 8.4 10/20/22 22:01: POC Glucose 152 H 10/20/22 22:27: POC Glucose 118 H 10/20/22 22:56: POC Glucose 107 10/20/22 23:11: Specimen Source Right radial, O2 % 1lpm, ABG pH 7.34 L, ABG pCO2 38.2, ABG pO2 84.2, ABG HCO3 20.2 L, ABG Total CO2 21.4 L, ABG O2 Saturation 96, ABG Base Excess -5.5 L, Evaristo Test Acceptable 10/20/22 23:21: POC Glucose 85 10/20/22 23:50: POC Glucose 87 10/21/22 00:30: POC Glucose 56 L 10/21/22 00:52: POC Glucose 52 L 10/21/22 01:15: Sodium 140, Potassium 3.6, Chloride 110 H, Carbon Dioxide 21 L, Anion Gap 12.6, BUN 50 H, Creatinine 2.30 H, Estimated Creat Clear 43, Estimated GFR 28 L, Est GFR ( Amer) 34 L, Glucose 52 L D, Calcium 8.8, Acetone Level None detected 10/21/22 01:37: POC Glucose 61 L 10/21/22 02:09: POC Glucose 83 10/21/22 03:15: POC Glucose 122 H 10/21/22 04:13: POC Glucose 166 H 10/21/22 05:05: WBC 9.3 D, RBC 4.48 L, Hgb 10.6 L, Hct 34.2 L, MCV 76.3 L, MCH 23.7 L, MCHC 31.0 L, RDW 18.6 H, Plt Count 227, MPV 7.5, Neut % (Auto) 83.2 H, Lymph % (Auto) 8.6 L, [place] % (Auto) 6.5, Eos % (Auto) 1.4, Baso % (Auto) 0.3, Neut # (Auto) 7.7, Lymph # (Auto) 0.8, [place] # (Auto) 0.6, Eos # (Auto) 0.1, Baso # (Auto) 0.0, PT 12.4, INR 1.16 H, Sodium 137, Potassium 4.2, Chloride 109 H, Carbon Dioxide 19 L, Anion Gap 13.2, BUN 46 H, Creatinine 2.20 H, Estimated Creat Clear 45, Estimated GFR 30 L, Est GFR ( Amer
[2022-10-21 16:23] LABS: POC Glucose,Bedside 344 (70-110)
--- NOTE | 2022-10-21 19:15 | PC.NURSE ---
Patient has elevated blood glucose.
[2022-10-21 20:49] LABS: POC Glucose,Bedside 340 (70-110)
--- NOTE | 2022-10-21 21:36 | ECG_ITS ---
APPROVED REPORT Exam: Resting ECG HR:75 bpm ECG Measurements Heart Rate 75 AXES NM 153 P 44 QRSd 114 QRS -38 QT 436 T 61 QTc 465 Conclusion SINUS RHYTHM LEFT AXIS DEVIATION [QRS AXIS < -30] LEFT VENTRICULAR HYPERTROPHY AND ST-T CHANGE [VOLTAGE CRITERIA PLUS ST/T ABNORMALITY] POSSIBLE SEPTAL MYOCARDIAL INFARCTION , OF INDETERMINATE AGE [30 ms Q WAVE IN V1/V2] ABNORMAL ECG UNCONFIRMED REPORT Electronically signed by : Jonnie Santos MD 10/22/2022 15:55:00
[2022-10-22] VITALS (8 sets, daily range): BP systolic 131–162; BP diastolic 57–75; PULSE 75–97; RESP 16–20; TEMP 36.6–36.9; O2SAT 93–98; BMI 32.6
--- NOTE | 2022-10-22 05:17 | PC.NURSE ---
NSR on monitor with rare pac's. VS stable and patient remained on room air. No other changes noted.
[2022-10-22 06:19] LABS: Anion Gap 13.6 mEq/L (5-15); Blood Urea Nitrogen 29 mg/dl (9-20); Calcium 8.2 mg/dl (8.4-10.2); Carbon Dioxide 18 mmol/L (22.0-30.0); Chloride 111 mmol/L (98-107); Creatinine Clearance Estimated 65 mL/min (50-200); Estimated Glomerular Filt Rate 43 ml/min (>60); GFR (African American) 52 ML/MIN (>60); Glucose 338 mg/dl (74-100); Potassium 4.6 mmoL/L (3.5-5.1); Sodium 138 mmol/L (136-145)
[2022-10-22 06:37] LABS: POC Glucose,Bedside 406 (70-110)
--- NOTE | 2022-10-22 10:26 | HMH.OTEV ---
OT Inpatient Evaluation Rehab OT IP Evaluation Start: 10/22/22 10:21 Freq: ONCE Status: Active Protocol: Document 10/22/22 10:23 KYLEE (Rec: 10/22/22 10:26 KYLEE [id number]) Rehab OT IP Assessment Subjective History This is a 66-year-old male that presents to [facility] emergency department accompanied by his of 35 years for concerns of altered mental status. The patient is minimally responsive so the history is acquired from the at bedside and medical record. He went to bed last night and reports not hearing his insulin pump. This morning it was difficult to arouse him and she became concerned so she brought him to the ED where dysfunction of the insulin pump was identified. His presenting glucose was 888 with acidosis on a venous blood gas and elevated anion gap. The reports that the patient has had previous episodes of DKA and his presentation is similar. She reports his past medical history is significant for diabetes on insulin pump with associated neuropathy, coronary artery disease, chronic kidney disease and chronic anemia. His ED chest x-ray identified pneumonia. He was started on IV fluid resuscitation and IV insulin and his care was transitioned to our stepdown unit. Patient lives alone with . Independent with ADLs and fx' l mobility at home. Subjective I can get up Analysis Patient's fx'l mobility with transfers and LB drsg ADL. Patient completed all tasks independently. Patient uses a cane to
--- NOTE | 2022-10-22 10:47 | HMH.PTEV ---
Physical Therapy Evaluation Rehab PT IP Evaluation Start: 10/22/22 10:22 Freq: ONCE Status: Active Protocol: Document 10/22/22 10:22 SOHA (Rec: 10/22/22 10:47 SOHA [id number]) Subjective/History History History [address] [facility] with DKA. Hx of DM, B JACQUE, R TKA. He lives with spouse, 4 steps to enter the home, he uses a cane for ambulation at baseline and is independent with all mobility. Subjective Subjective He has no c/o this am, agrees to mobility assessment. New diagnosis of cancer in past 12 No months? Rehab PT IP Eval Objective Appearance Patient Behavior Appropriate Patient Orientation Person,Place,Time Difficulty following instructions none Speech Pattern Clear Ambulation Patient Able to Ambulate Yes Ambulation Observation IP General Gait Pattern Observation Wide Based Gait Ambulation Distance (feet) 50 Ambulation Assistive Device None Ambulation Ability Supervision/Stand by Balance Ability to Arise Able, uses arms to help Sitting Balance Steady, safe Standing Balance Steady, wide stance Dynamic Sitting Balance Ability Good Dynamic Standing Balance Ability Good Transfers Bed Transfer Ability Supervision/Stand by Chair Transfer Ability Supervision/Stand by Sit to Stand Bed Transfer Ability Supervision/Stand by Sit to Stand Chair Transfer Ability Supervision/Stand by Rehab PT IP prob,goals,plan Problems Date of Evaluation: 10/22/22 Discharge Plan PT Discharge Plan Pt is appropriate to return home once medically stable for d/c. Eval Complexity Eval Charge Codes 28769 - High Complexity PHYSICIAN CERTIFICATION: I certify the specified therapy services for Obdulio Gold are required, authorized, and reviewed every 30 days.
[2022-10-22 11:23] LABS: POC Glucose,Bedside 288 (70-110)
--- NOTE | 2022-10-22 14:55 | PC.NURSE ---
PT IS SITTING UP IN THE CHAIR VISITING WITH FAMILY. ALERT AND ORIENTED X4. EATING AND DRINKING WELL. LUNG SOUNDS DIMINISHED. ABDOMEN SOFT/NON TENDER WITH ACTIVE BOWEL SOUNDS. PT AMBULATED IN THE HARP WITH PHYSICAL THERAPY. HOSPITALIST NOTIFIED ABOUT BRUISING AND SMALL ABRASION NOTED TO PT'S SCROTUM. WILL CONTINUE TO MONITOR.
[2022-10-22 15:34] LABS: Procalcitonin 1.34 ng/mL (0.0-2.0)
[2022-10-22 15:58] LABS: POC Glucose,Bedside 273 (70-110)
--- NOTE | 2022-10-22 17:02 | EXP.PN ---
Subjective *Date: 10/22/22 *Time: 17:02 Interval history: Patient is seen and evaluated today at bedside. He is accompanied by his . I am accompanied by nursing staff. Nursing staff report that he remains afebrile with stable vital signs and saturating appropriately on room air. Identified mobility has been demonstrated. Increase calorie consumption is noted with increased blood sugars. His morning labs have been reviewed discussed and personally interpreted with a normal white blood cell count and downward trending creatinine. The patient is inquiring about discharge home. Exam Data for Last 24 hours Vital signs and Labs for Last 24 Hours: Temp Pulse Resp BP Pulse Ox O2 Del Method O2 Flow Rate 97.9 F 97 H 18 157/75 H 95 Room Air 1 10/22/22 16:00 10/22/22 16:00 10/22/22 16:00 10/22/22 16:00 10/22/22 16:00 10/22/22 16:00 10/21/22 09:30 Laboratory Results - last 24 hr 10/20/22 08:02: Procalcitonin 1.34 10/21/22 20:42: POC Glucose 340 H* 10/22/22 05:50: Sodium 138, Potassium 4.6, Chloride 111 H, Carbon Dioxide 18 L, Anion Gap 13.6, BUN 29 H D, Creatinine 1.60 H D, Estimated Creat Clear 65, Estimated GFR 43 L, Est GFR ( Amer) 52 L D, Glucose 338 H, Calcium 8.2 L 10/22/22 06:27: POC Glucose 406 H* 10/22/22 11:15: POC Glucose 288 H 10/22/22 15:48: POC Glucose 273 H I & O for Last 24 hours: Intake & Output 10/19/22 10/20/22 10/21/22 10/22/22 23:59 23:59 23:59 23:59 Intake Total 180 / 180 840 / 840 4950 / 4950 Output Total 300 / 650 2024 3075 / 3075 Balance -120 / -470 -1185 / -1185 1875 / 1875 Weight 99.365 kg 99.847 kg 103.374 kg Microbiology Reports for the Last 24 Hours: Microbiology 10/20/22 08:02 Blood Blood Culture - Preliminary NO GROWTH AFTER 48 HOURS 10/20/22 08:23 Blood Blood Culture - Preliminary NO GROWTH AFTER 48 HOURS Constitutional Constitutional: no acute distress, obese, chronically ill appearing and cooperative *Routine HEENT Exam Head: Present normocephalic *Routine Neck Exam Neck: Present supple *Routine Respiratory Exam Respiratory: Present rhonchi, normal respiratory effort and symmetric chest movement *Routine Cardiovascular Exam Cardiovascular: Present RRR *Routine Extremities Exam Extremities: Present full ROM, pulses intact and normal capillary refill; Absent edema *Routine Skin Exam Skin: Present warm; Absent rash *Routine Neurological Exam Neurological: Present alert, oriented X3, moving all extremities, vision grossly intact and hearing grossly intact; Absent sensory deficit or motor deficit Routine Psychiatric Exam Psychiatric: Present normal affect, normal thought process, cooperative, good insight and good judgment Assessment and Plan *Assessment and plan (1) DKA, type 1: Status: Acute Qualifiers: Diabetes mellitus complication detail: with coma Qualified Code(s): E10.11 - Type 1 diabetes mellitus with ketoacidosis with coma Category: Medical Code(s): E10.10 - Type 1 diabetes mellitus with ketoacidosis without coma (2) Recurrent pneumonia: Status: Chronic Category: Medical Code(s): J18.9 - Pneumonia, unspecified organism (3) Acute kidney injury: Status: Resolved Category: Medical Code(s): N17.9 - Acute kidney failure, unspecified (4) CAD (coronary artery disease): Status: Chronic Qualifiers: Coronary Disease-Associated Artery/Lesion type: [place] artery [place] vs. transplanted heart: [place] heart Associated angina: without angina Qualified Code(s): I25.10 - Atherosclerotic heart disease of [place] coronary artery without angina pectoris Category: Medical Code(s): I25.10 - Atherosclerotic heart disease of [place] coronary artery without angina pectoris (5) Anemia: Status: Acute Qualifiers: Anemia type: iron deficiency Category: Medica
[2022-10-22 20:19] LABS: POC Glucose,Bedside 236 (70-110)
[2022-10-23] VITALS: BP 134/69; PULSE 78; RESP 20; TEMP 37.1; O2SAT 98
[2022-10-23 04:00] VITALS: BP 141/79; PULSE 82; RESP 22; TEMP 36.8; O2SAT 97; BMI 30.6
--- NOTE | 2022-10-23 04:59 | PC.NURSE ---
patient has slept okay through the night. received tylenol twice for back pain. saturating well on room air. receiving iv fluids. vitals have been stable
[2022-10-23 05:36] LABS: POC Glucose,Bedside 208 (70-110)
[2022-10-23 06:49] VITALS: PULSE 77; PULSE 79; O2SAT 97
--- NOTE | 2022-10-23 06:56 | PC.NURSE ---
spoke with hospitalist regarding getting home pain medicine ordered for back
[2022-10-23 07:29] VITALS: BP 155/87; PULSE 87; RESP 17; TEMP 36.6; O2SAT 94
--- NOTE | 2022-10-23 07:49 | EXP.DC.SUM ---
General Admission date:: 10/20/22 Discharge date: 10/23/22 HPI HPI HPI: This is a 66-year-old male that presents to [facility] emergency department accompanied by his of 35 years for concerns of altered mental status. The patient is minimally responsive so the history is acquired from the at bedside and medical record. He went to bed last night and reports not hearing his insulin pump. This morning it was difficult to arouse him and she became concerned so she brought him to the ED where dysfunction of the insulin pump was identified. His presenting glucose was 888 with acidosis on a venous blood gas and elevated anion gap. The reports that the patient has had previous episodes of DKA and his presentation is similar. She reports his past medical history is significant for diabetes on insulin pump with associated neuropathy, coronary artery disease, chronic kidney disease and chronic anemia. His ED chest x-ray identified pneumonia. He was started on IV fluid resuscitation and IV insulin and his care was transitioned to our stepdown unit. Hospital Course Hospital Course Hospital Course: The patient was admitted to the telemetry unit with IV fluid resuscitation and IV insulin with routine labs and inflammatory marker evaluation. Problems addressed as follows: Diabetic ketoacidosis with coma-resolved Diabetes type 1 Stepdown unit with continuous telemetry and pulse oximetry monitoring Transitioned to floor bed Hemoglobin A1c 7.1% (September 02, 2022) IV fluid resuscitation transitioning to oral IV insulin therapy transitioning to basal and sliding scale insulin Anion gap, electrolyte and creatinine evaluation identified improvement Carbohydrate controlled diet Routine nursing interaction Accurate I's and O's Oxygen therapy to maintain appropriate oxygen saturations Ambulate patient Outpatient follow-up with PCP to discuss insulin pump malfunction Recurrent pneumonia Pulse oximetry monitoring Oxygen therapy Aspiration precautions Chest x-ray reviewed with pneumonia Inhalation therapy P.o. doxycycline 100 mg twice daily on discharge for 7 days Trending labs and inflammatory markers Blood cultures no growth to date Acute kidney injury Baseline creatinine 1.5 Trending electrolytes and creatinine IV fluid resuscitation Avoiding NSAIDs Adjusting medications for GFR Myocardial injury (type II) Coronary artery disease Echocardiogram pending Antiplatelet therapy P2Y12 inhibitor therapy Statin therapy Beta-david therapy ARB therapy Microcytic anemia Trending CBC Iron studies with iron saturation 8% Vitamin B12 level 367 Iron replacement therapy with ascorbic acid Hypothyroidism Levothyroxine replacement therapy The patient recovered from his DKA and tolerated his IV antibiotic therapy. Nursing staff reported stable vital signs and saturating appropriately on room air. He was evaluated by PT and OT with improving ambulatory activity. He identified improvement and inquired about discharge home. He understands the importance of routine blood sugar evaluations at home and adjusting his insulin therapy to maintain appropriate blood sugar control. He plans to discuss his device malfunction with his PCP. We have recommended aspiration precautions and outpatient speech therapy evaluations. I spent 35 minutes in [id number] time with the patient, at bedside and nursing staff concerning the discharge process. We discussed the admitting diagnoses and hospital course. We discussed identified improvement and the patient's desire to be discharged. We reviewed inpatient studies and imaging. The patient voiced understanding on the importance of follow-up with his primary care provider and specialist(s). The patient plans to be compliant with the medication regimen prescribed and follow-up appointments. He understands that he can return to the emergency department with any sudden changes or concerns.
[2022-10-23 07:58] LABS: Anion Gap 10.8 mEq/L (5-15); Blood Urea Nitrogen 14 mg/dl (9-20); Calcium 8.6 mg/dl (8.4-10.2); Carbon Dioxide 24 mmol/L (22.0-30.0); Chloride 108 mmol/L (98-107); Creatinine Clearance Estimated 81 mL/min (50-200); Estimated Glomerular Filt Rate 60 ml/min (>60); GFR (African American) 73 ML/MIN (>60); Glucose 237 mg/dl (74-100); Potassium 3.8 mmoL/L (3.5-5.1); Sodium 139 mmol/L (136-145)
--- NOTE | 2022-10-25 14:22 | CARE MANAGER ---
Contacted patient related to hospital discharge. He states he is doing better and is calling to make his follow up appointment with PCP this afternoon. Denies any questions or concerns. ARTHUR Gama
== END 2022-10-23 09:08 | disposition home or self-care (01) | DRG 637 ==
LOC: ER 08:07 → 2ND 09:35
PROVIDERS: Nurse Practitioner Family; Admitting Provider Family Medicine; Emergency Provider Emergency Medicine; PCP Family Medicine; Visit Provider Family Medicine
DX: E10.11 Type 1 diabetes mellitus with ketoacidosis with coma (principal); G93.41 Metabolic encephalopathy; J18.9 Pneumonia, unspecified organism; I21.A1 Myocardial infarction type 2; N17.9 Acute kidney failure, unspecified; I25.10 Atherosclerotic heart disease of native coronary artery without angina pectoris; I11.0 Hypertensive heart disease with heart failure; Z79.4 Long term (current) use of insulin; Z96.41 Presence of insulin pump (external) (internal); E10.40 Type 1 diabetes mellitus with diabetic neuropathy, unspecified; Z96.643 Presence of artificial hip joint, bilateral; Z96.651 Presence of right artificial knee joint; Z95.1 Presence of aortocoronary bypass graft; D50.9 Iron deficiency anemia, unspecified; E03.9 Hypothyroidism, unspecified
CPT/HCPCS: 36415; 71045; 80048; 80053; 80329; 81001; 82009; 82607; 82803; 82947; 82962; 83036; 83540; 83550; 83605; 83690; 83735; 83880; 84100; 84145; 84436; 84443; 84484; 85007; 85025; 85610; 85730; 87040; 93005; 93306; 94640; 94761; 97163; 97165

== ENCOUNTER 2022-11-11 16:10 | Emergency (ER) | payer MEDICARE, OTHER, SELFPAY ==
[2022-11-11 16:30] VITALS: BP 142/72; PULSE 82; RESP 20; TEMP 36.8; O2SAT 96; BMI 30.2
--- NOTE | 2022-11-11 16:30 | XR_ITS ---
PROCEDURE INFORMATION: Exam: XR Right Ankle Exam date and time: 11/11/2022 4:31 PM Age: 66 years old Clinical indication: Pain; Ankle and foot; Right; Additional info: Pain in top of right foot, previous FX in foot TECHNIQUE: Imaging protocol: Radiologic exam of the right ankle. Views: 3 or more views. COMPARISON: CR XR ANKLE RT MIN 3V 03/09/2020 1:56 PM FINDINGS: Bones/joints: Subtle linear lucency involving the distal aspect of the medial malleolus is present an cannot entirely exclude subtle avulsion fracture. Otherwise, there is no evidence of acute fracture or dislocation. Incompletely visualized are mild multifocal osteoarthritic degenerative changes within the intertarsal and tarsal metatarsal joints. Soft tissues: Soft tissue edema is present, most prominent medially. No subcutaneous emphysema or radiopaque foreign bodies. Prominent atherosclerotic vascular calcifications are present. IMPRESSION: 1. Subtle linear lucency involving the distal aspect of the medial malleolus is present cannot entirely exclude subtle avulsion fracture. 2. Prominent soft tissue edema.
--- NOTE | 2022-11-11 16:30 | XR_ITS ---
PROCEDURE INFORMATION: Exam: XR Right Foot Exam date and time: 11/11/2022 4:29 PM Age: 66 years old Clinical indication: Pain; Ankle and foot; Right TECHNIQUE: Imaging protocol: Radiologic exam of the right foot. Views: 3 or more views. COMPARISON: CR XR FOOT WT BEARING RT 3V 05/18/2022 2:22 PM FINDINGS: Bones/joints: As before con there is marked 1st metatarsus adductus and hallux valgus deformity. There is lateral subluxation of the 1st MTP joint with near complete on covering of the distal aspect of the 1st metatarsal head. This appears stable when compared with prior study. Remote fracture deformity involving the 2nd metatarsal diaphysis is stable. Moderate multifocal osteoarthritic degenerative changes involving the tarsal metatarsal joints are not dramatically changed. No acute fracture. Pes planus positioning is again noted. Soft tissues: There is mild soft tissue edema involving the visualized ankle.. No subcutaneous emphysema or radiopaque foreign bodies. Prominent atherosclerotic vascular calcifications are present. IMPRESSION: 1. No acute posttraumatic osseous injury. 2. Severe stable 1st metatarsus adductus and hallux valgus deformity with prominent lateral subluxation at the 1st MTP joint. 3. Moderate multifocal osteoarthritic degenerative changes involving the tarsal metatarsal joints are not dramatically changed
--- NOTE | 2022-11-11 17:01 | EXP.UTC ---
Discharge Plan Disposition Patient Disposition: Home, Self-Care Condition: Good Prescriptions Prescriptions: No Action lisinopril 2.5 mg tablet 2.5 mg PO HS nitroglycerin 0.4 mg tablet, sublingual 0.4 mg SUBLINGUAL Q5MINP PRN (Reason: Chest Pain) Rx Instructions: do not exceed 3 doses per episode sucralfate [Carafate] 1 gram tablet 1 g PO ACHS potassium chloride 10 mEq tablet extended release 10 meq PO DAILY fluticasone propionate 50 mcg/actuation spray,suspension 2 spray INTRANASAL DAILY duloxetine 60 mg capsule,delayed release(DR/EC) 60 mg PO BID aspirin [Adult Low Dose Aspirin] 81 mg tablet,delayed release (DR/EC) 81 mg PO DAILY donepezil 10 mg tablet 10 mg PO DAILY gabapentin 800 mg tablet 800 mg PO TID allopurinol 300 mg tablet 300 mg PO DAILY clopidogrel 75 MG tablet 75 mg PO DAILY levothyroxine 125 MCG tablet 125 mcg PO DAILY hydroxychloroquine 200 MG tablet 400 mg PO DAILY rosuvastatin 20 MG tablet 20 mg PO HS hydrocodone-acetaminophen 5-325 mg tablet 1 tab PO TIDP PRN (Reason: mild to moderate pain) Patient Comments: TAKE 1 TABLET BY MOUTH EVERY 8 HOURS colchicine (gout) 0.6 mg tablet 0.6 mg PO BID metoprolol succinate 25 mg tablet extended release 24 hr 12.5 mg PO DAILY valacyclovir 500 mg tablet 500 mg PO DAILY Patient Comments: TAKE 1 TABLET BY MOUTH EVERY DAY tamsulosin 0.4 mg capsule 0.8 mg PO HS insulin glargine [Lantus Solostar U-100 Insulin] 100 unit/mL (3 mL) insulin pen 20 unit SQ HS furosemide 40 MG tablet 80 mg PO DAILY 30 Days Qty: 60 0RF tizanidine 4 mg tablet 4 mg PO BID erythromycin 5 mg/gram (0.5 %) ointment 1 applic ophthalmic (eye) HS Rx Instructions: Apply a small amount into both eyes at bedtime diclofenac sodium 1 % gel 2 g TOPICAL QIDP PRN (Reason: Pain) polysaccharide iron complex [Ferrex 150] 150 mg iron Capsule 150 mg PO BID Qty: 60 0RF ascorbic acid (vitamin C) [Vitamin C] 500 mg Tablet 500 mg PO BID Qty: 60 0RF pantoprazole 40 mg Tablet,Delayed Release (Dr/Ec) 40 mg PO DAILY Qty: 30 0RF doxycycline hyclate 100 mg Tablet 100 mg PO BID Qty: 14 0RF Referrals Follow up/Referrals: De Allison DPM [Physician] - See instructions Helen Prince APRN [Nurse Practitioner] - See instructions Elijah Serra DO [Primary Care Provider] - See instructions Harriett Andersen DPM [Staff Physician] - See instructions Activity Restrictions/Add. Instructions Additional Instructions/Restrictions: *wear boot and use cane as discussed Call Podiatry and make appointment as soon as possible *RICE, Rest the extremity, Ice 15-20 minutes 3-4 times daily, Compress- wear the preet wrap as discussed as much as possible to help reduce swelling and pain, Elevate the extremity when at rest *Walking boot is for support and help control swelling, use it except in the shower. Be sure that is not to tight but not to loose either *Elevate when resting? *Ibuprofen as directed on package every 6-8 hours as needed for pain an inflammation if you can take it if not or If need something more can take Tylenol in between doses of Ibuprofen to help Immediately follow up with your family doctor for new or worsening of symptoms, or no noticeable improvement over the next 3-5 days Clinical Impressions Clinical Impression: Ankle pain Qualifiers: Chronicity: unspecified Laterality: right Qualified Code(s): M25.571 - Pain in right ankle and joints of right foot Instructions Patient Instructions: DI for Ankle Pain, DI for Foot Pain, How to Use a Walking Boot Discharge ED Provider: Shasta Wisdom [facility] General Stated complaint: Right foot pain and ankle Mode of Arrival: Ambulatory Source of Information: Patient Limitations: No Limitations Time Seen by Provider: 11/11/22 17:01 Description
[2022-11-11 17:28] VITALS: BP 142/72; PULSE 82; RESP 20; TEMP 36.8; O2SAT 96
== END 2022-11-11 17:30 | disposition home or self-care (01) ==
PROVIDERS: Emergency Provider Nurse Practitioner; PCP Family Medicine
DX: M25.571 Pain in right ankle and joints of right foot (principal); I25.10 Atherosclerotic heart disease of native coronary artery without angina pectoris; I11.0 Hypertensive heart disease with heart failure; I50.31 Acute diastolic (congestive) heart failure; K21.9 Gastro-esophageal reflux disease without esophagitis; E78.5 Hyperlipidemia, unspecified; E03.9 Hypothyroidism, unspecified; E10.42 Type 1 diabetes mellitus with diabetic polyneuropathy; Z79.4 Long term (current) use of insulin
CPT/HCPCS: 73610; 73630

== ENCOUNTER 2022-11-14 13:20 | Inpatient (IN) | payer MEDICARE, OTHER, SELFPAY ==
[2022-11-14] VITALS (13 sets, daily range): BP systolic 112–184; BP diastolic 54–129; PULSE 88–114; RESP 17–24; TEMP 36.5–37; O2SAT 92–99; BMI 30.7; BMI 30.6
--- NOTE | 2022-11-14 13:30 | HMH.EDGENADL ---
Discharge Plan Disposition Patient Disposition: Admitted Chief Complaint: Nausea/Vomiting/Diarrhea Clinical Impressions Clinical Impression: DKA (diabetic ketoacidosis), Encephalopathy acute Discharge ED Provider: Pilo Ceron General Adult HPI <Pilo Ceron MD - Last Filed: 11/14/22 16:29> General Chief complaint: Nausea/Vomiting/Diarrhea Stated complaint: Vomiting,Back pain,high sugar Time Seen by Provider: 11/14/22 13:27 History of Present Illness HPI narrative: The patient presents with a chief complaint of high blood sugars, reporting that their insulin pump was not charged and went , resulting in a blood sugar level of over 400. The patient also complains of back pain, which has been present for quite a while. They describe the pain as located in the lower back, and upon further questioning states it is acute in onset. The patient denies any weakness or numbness in the back, but does report numbness in the groin area. No blood in the urine is reported. Additionally, the patient has a history of a recent fall and injury to the right leg, specifically the foot or ankle. They are currently experiencing discomfort and confusion. The patient denies any shortness of breath, fever, or abdominal pain. The patient's functional status is not provided in the transcript. Related Data Home Medications Medication Instructions Recorded Confirmed clopidogrel 75 mg tablet 75 mg PO DAILY platelet inhibitor 04/26/19 10/20/22 hydroxychloroquine 200 mg tablet 400 mg PO DAILY Arthritis 04/26/19 10/20/22 levothyroxine 125 mcg tablet 125 mcg PO DAILY Thyroid 04/26/19 10/20/22 rosuvastatin 20 mg tablet 20 mg PO HS Cholesterol 04/26/19 10/20/22 lisinopril 2.5 mg tablet 2.5 mg PO HS High blood pressure 02/04/20 10/20/22 nitroglycerin 0.4 mg sublingual 0.4 mg sublingual Q5MINP PRN Chest 02/04/20 10/20/22 tablet Pain sucralfate 1 gram tablet (Carafate) 1 g PO ACHS acid reflux 02/04/20 10/20/22 duloxetine 60 mg capsule,delayed 60 mg PO BID Mood 04/15/20 10/20/22 release fluticasone propionate 50 2 spray intranasal DAILY Allergy 04/15/20 10/20/22 mcg/actuation nasal symptoms spray,suspension potassium chloride 10 mEq 10 meq PO DAILY Supplement 04/15/20 10/20/22 tablet,extended release aspirin 81 mg tablet,delayed 81 mg PO DAILY Heart disease 10/20/21 10/20/22 release (Adult Low Dose Aspirin) hydrocodone 5 mg-acetaminophen 325 1 tab PO TIDP PRN mild to moderate 10/30/21 10/20/22 mg tablet pain colchicine (gout) 0.6 mg tablet 0.6 mg PO BID gout 10/31/21 10/20/22 metoprolol succinate 25 mg 12.5 mg PO DAILY High blood 10/31/21 10/20/22 tablet,extended release 24 hr pressure insulin glargine 100 unit/mL (3 20 unit SQ HS Diabetes 12/06/21 10/20/22 mL) subcutaneous pen (Lantus Solostar U-100 Insulin) tamsulosin 0.4 mg capsule 0.8 mg PO HS prostate 12/06/21 10/20/22 valacyclovir 500 mg tablet 500 mg PO DAILY anti-viral 12/06/21 10/20/22 allopurinol 300 mg tablet 300 mg PO DAILY Gout 05/18/22 10/20/22 donepezil 10 mg tablet 10 mg PO DAILY Mood 05/18/22 10/20/22 gabapentin 800 mg tablet 800 mg PO TID Pain 05/18/22 10/20/22 diclofenac sodium 1 % topical gel 2 g topical QIDP PRN Pain 10/20/22 10/20/22 erythromycin 5 mg/gram (0.5 %) eye 1 applic ophthalmic (eye) HS 10/20/22 10/20/22 ointment Infection tizanidine 4 mg tablet 4 mg PO BID Spasms 10/20/22 10/20/22 Previous Rx's Medication Instructions Recorded furosemide 40 mg tablet 80 mg PO DAILY Fluid 30 days #60 12/09/21 tabs ascorbic acid (vitamin C) 500 mg 500 mg PO BID #60 tabs 10/23/22 tablet (Vitamin C) doxycycline hyclate 100 mg tablet 100 mg PO BID #14 tabs 10/23/22 pantoprazole 40 mg tablet,delayed 40 mg PO DAILY #30 tabs 10/23/22 release polysaccharide iron complex 150 mg 150 mg PO BID #60 caps 10/23/22 iron capsule (Ferrex) Allergies Allergy/AdvReac Type Severity Reaction Status Date / Time iodine [IODINE] Allergy Mild Verified 08/25/22 08:34 adhesive
[2022-11-14 13:43] LABS: POC Glucose,Bedside 486 (70-110)
--- NOTE | 2022-11-14 13:52 | XR_ITS ---
PROCEDURE INFORMATION: Exam: XR Chest Exam date and time: 11/14/2022 2:12 PM Age: 66 years old Clinical indication: Other: Hyperglycemia; Additional info: Hyperglycemia/n/v coronary HX TECHNIQUE: Imaging protocol: Radiologic exam of the chest. Views: 1 view. COMPARISON: CR XR CHEST PORTABLE 10/20/2022 8:33 AM FINDINGS: Lungs: Mild left basilar atelectasis or scarring. Pleural spaces: Unremarkable. No pleural effusion. No pneumothorax. Heart/Mediastinum: Mediastinal clips. Bones/joints: Unremarkable. IMPRESSION: Mild left basilar atelectasis or scarring.
--- NOTE | 2022-11-14 13:56 | PC.NURSE ---
XR AT BEDSIDE
[2022-11-14 14:04] LABS: Acetone, Serum (Rapid) None Detected (None Detect)
[2022-11-14 14:05] LABS: VBG Base Excess -13.1 mmol/L (-2.4-2.3); VBG HCO3 14.5 mmol/L (23-30); VBG PCO2 35.7 mmol/L (35-51); VBG PH 7.23 mmol/L (7.31-7.41); VBG PO2 55.1 mmol/L (28-40); VBG Total CO2 15.6 mmol/L (23-27)
[2022-11-14 14:08] LABS: Magnesium 1.7 mg/dl (1.6-2.3); Phosphorous 5.6 mg/dl (2.5-4.5)
[2022-11-14 14:09] LABS: Alanine Aminotransferase 39 U/L (12-78); Albumin Level 4.5 g/dl (3.5-5.0); Albumin/Globulin Ratio 1.3 (1.1-1.8); Alkaline Phosphatase 139 U/L (38-126); Anion Gap 28.7 mEq/L (5-15); Aspartate Amino Transferase 40 U/L (17-59); Bilirubin,Total 1.8 mg/dl (0.2-1.3); Blood Urea Nitrogen 16 mg/dl (9-20); Calcium 9.8 mg/dl (8.4-10.2); Carbon Dioxide 16 mmol/L (22.0-30.0); Chloride 103 mmol/L (98-107); Creatinine Clearance Estimated 83 mL/min (50-200); Estimated Glomerular Filt Rate 67 ml/min (>60); GFR (African American) 81 ML/MIN (>60); Globulin 3.4 g/dL (1.3-3.2); Potassium 4.7 mmoL/L (3.5-5.1); Sodium 143 mmol/L (136-145); Total Protein,Serum 7.9 g/dl (6.3-8.2)
--- NOTE | 2022-11-14 14:09 | ECG_ITS ---
APPROVED REPORT Exam: Resting ECG HR:94 bpm ECG Measurements Heart Rate 94 AXES WA 163 P 46 QRSd 133 QRS -45 QT 362 T 83 QTc 414 Conclusion SINUS RHYTHM INTRAVENTRICULAR CONDUCTION DELAY [130+ ms QRS DURATION] TYPE 3 BRUGADA PATTERN (NON-DIAGNOSTIC) [COVED/SADDLEBACK ST ELEVATION > 0.1mV IN 2 OF V1-3] ABNORMAL ECG UNCONFIRMED REPORT Electronically signed by : Jonnie Santos MD 11/15/2022 19:41:57
[2022-11-14 14:14] LABS: Basophils % 0.1 % (0.1-2.0); Eosinophils % 0.4 % (0.1-12.0); Glucose 520 mg/dl (74-100); Hematocrit 41.6 % (42.0-52.0); Hemoglobin 12.5 g/dL (14.1-18.0); Lymphocytes # 0.5 K/mm3 (0.7-4.5); Lymphocytes % 5.8 % (10-50); Mean Corpuscular HGB Conc 30.1 g/dL (31.8-35.4); Mean Corpuscular Hemoglobin 24.7 pg (27.0-31.2); Mean Platelet Volume 8.3 fl (7.4-10.4); Monocytes # 0.4 K/mm3 (0.1-1.0); Monocytes % 4.6 % (1.7-9.3); Neutrophils % 89.1 % (37.0-80.0); Platelet Count 196 K/mm3 (142-424); Red Blood Count 5.08 M/mm3 (4.60-6.20); Red Cell Distribution Width 20.9 % (11.5-17.5); White Blood Count 7.8 K/mm3 (4.8-10.8)
--- NOTE | 2022-11-14 14:15 | PC.NURSE ---
pt sitting up in wheelchair at this time, pt states not comfortable in bed, frequently trying to get out of bed, stating i've got to get up, my back hurts . ER MD Ceron aware. Pt in wheelchair with safety pull alarm attached to pts shirt. curtain to pts room remaining open for safety of viewing pt. pt in room with pt.
[2022-11-14 14:17] LABS: MANUAL DIFFERENTIAL MANUAL DIFFERENTIAL (MANUAL DIFF)
[2022-11-14 14:23] LABS: Microscopic, Urine URINE MICROSCOPIC (MICROSCOPIC)
[2022-11-14 14:24] LABS: Appearance,Urine CLEAR (Clear); Bilirubin,Urine Negative (Negative); Blood, Urine 2+ (Negative); Color,Urine YELLOW (Yellow); Glucose,Urine (UA) 3+ (Negative); Ketones,Urine 2+ (Negative); Leukocyte Esterase,Urine Negative (Negative); Nitrate,Urine Negative (Negative); Protein,Urine TRACE (Negative); Specific Gravity, Urine 1.025 (1.005-1.030); Urobilinogen,Urine 0.2 EU/dl (0.2)
[2022-11-14 14:25] LABS: Lymphocytes % 7 % (10-50); Monocytes % 5 % (2-9); Neutrophils % 88 % (42-76); Platelet Estimate Normal; RBC Morphology Normal; Total Cells Counted 100
[2022-11-14 14:26] LABS: Troponin I < 0.01 ng/ml (0.00-0.034)
--- NOTE | 2022-11-14 14:30 | PC.NURSE ---
Dr. Ceron at BS for pt eval
--- NOTE | 2022-11-14 14:31 | PC.NURSE ---
DR JENNINGS AT BEDSIDE
[2022-11-14 14:37] LABS: Bacteria,Urine Trace /lpf; RBC,Urine 20-50 #/hpf (0-3); Squamous Epithelial Cell,Urine Occasional #/hpf (0-5); WBC,Urine Occasional #/hpf (0-3)
--- NOTE | 2022-11-14 14:41 | CT_ITS ---
PROCEDURE INFORMATION: Exam: CT Lumbar Spine Without Contrast Exam date and time: 11/14/2022 4:07 PM Age: 66 years old Clinical indication: Low back pain; Additional info: Acute back pain, recent fall TECHNIQUE: Imaging protocol: Computed tomography of the lumbar spine without contrast. Radiation optimization: All CT scans at this facility use at least one of these dose optimization techniques: automated exposure control; mA and/or kV adjustment per patient size (includes targeted exams where dose is matched to clinical indication); or iterative reconstruction. REPORTING DATA: Count of CT and Cardiac NM exams in prior 12 months: This patient has received 6 known CTs and 0 known cardiac nuclear medicine studies in the 12 months prior to the current study. COMPARISON: No relevant prior studies available. FINDINGS: Bones/joints: Generalized osteopenia. Mild scoliosis of the lumbar spine convexity to the left. At L3-L4: Moderate-marked disc space narrowing. 2.5-3 mm posterolateral osteophytic ridge. Accompanying ligamentum flavum and facet hypertrophy. Mild-moderate [id number]-left neural foraminal stenosis and lateral recess stenosis. At L4-L5: Moderate-moderately severe hypertrophic facet changes approximate 4 mm degenerative anterolisthesis of L4 with respect to L5. Moderate-moderately severe left greater than right facet hypertrophy. Moderate-moderately severe disc degeneration. 4-5 mm left posterolateral osteophytic ridge with moderately severe left neural foraminal stenosis. Soft tissues: Unremarkable. IMPRESSION: 1. No evidence of acute osseous injury. 2. Lumbar spondylosis with multilevel advanced changes of disc degeneration L3-L4 through L5-S1. 3. At L4-L5: 4 mm degenerative anterolisthesis. 4. At L5-S1 4-5 mm left posterolateral osteophytic ridge with moderately severe left neural foraminal stenosis.
--- NOTE | 2022-11-14 14:43 | CT_ITS ---
PROCEDURE INFORMATION: Exam: CT Head Without Contrast Exam date and time: 11/14/2022 3:52 PM Age: 66 years old Clinical indication: Altered mental status/memory loss; Confusion or disorientation; Additional info: AMS TECHNIQUE: Imaging protocol: Computed tomography of the head without contrast. Radiation optimization: All CT scans at this facility use at least one of these dose optimization techniques: automated exposure control; mA and/or kV adjustment per patient size (includes targeted exams where dose is matched to clinical indication); or iterative reconstruction. REPORTING DATA: Count of CT and Cardiac NM exams in prior 12 months: This patient has received 6 known CTs and 0 known cardiac nuclear medicine studies in the 12 months prior to the current study. COMPARISON: CT HEAD/BRAIN WO CON images (no report) 11/14/2022 3:04 PM FINDINGS: Brain: Mild brain volume loss. Moderate white matter changes typical of hypertension or chronic small vessel ischemia. Cerebral ventricles: No ventriculomegaly. Paranasal sinuses: Visualized sinuses are unremarkable. No fluid levels. Mastoid air cells: Visualized mastoid air cells are well aerated. Orbital cavities: Bilateral lens replacements. Bones/joints: Unremarkable. No acute fracture. Soft tissues: Unremarkable. Vasculature: Atherosclerosis. IMPRESSION: No acute findings.
--- NOTE | 2022-11-14 14:43 | CT_ITS ---
PROCEDURE INFORMATION: Exam: CT Cervical Spine Without Contrast Exam date and time: 11/14/2022 4:04 PM Age: 66 years old Clinical indication: Neck pain; Additional info: AMS TECHNIQUE: Imaging protocol: Computed tomography of the cervical spine without contrast. Radiation optimization: All CT scans at this facility use at least one of these dose optimization techniques: automated exposure control; mA and/or kV adjustment per patient size (includes targeted exams where dose is matched to clinical indication); or iterative reconstruction. REPORTING DATA: Count of CT and Cardiac NM exams in prior 12 months: This patient has received 6 known CTs and 0 known cardiac nuclear medicine studies in the 12 months prior to the current study. COMPARISON: CT ANGIO NECK 12/06/2021 6:08 AM FINDINGS: Bones/joints: No acute fracture or subluxation. Degenerative disc disease at C3/4, C4/5 and C5/6. Schmorl's nodes of the C4 superior and inferior endplates, C5 superior and inferior endplates and C6 superior endplate. Lungs: Lung apices are normal. Vasculature: Atherosclerosis. Soft tissues: Unremarkable. IMPRESSION: 1. No acute fracture or subluxation. 2. Degenerative disc disease at C3/4, C4/5 and C5/6. 3. Schmorl's nodes of the C4 superior and inferior endplates, C5 superior and inferior endplates and C6 superior endplate. 4. Atherosclerosis.
--- NOTE | 2022-11-14 14:56 | PC.NURSE ---
PT TO CT
--- NOTE | 2022-11-14 14:56 | PC.NURSE ---
Pt gone to RAD via wheelchair
--- NOTE | 2022-11-14 15:07 | PC.NURSE ---
Pt back in room from RAD
--- NOTE | 2022-11-14 15:08 | PC.NURSE ---
per rad staff pt back in ct room, rad staff reports unable to complete ct scan r/t pt won't stay laying down on the ct scan table, rad reports pt sat up twice while trying to do ct scan. asked rad staff to transport pt back to ER room notified dr. jose, dr. jose back to ct room to eval staff. pt then transported back to ER room [address] Jose reports placing medication orders for pt.
--- NOTE | 2022-11-14 15:31 | PC.NURSE ---
pt back in bed after returning from CT scan per pts request. lights turned off in room for comfort/calming of pt. Safety pull alarm attached to pts shirt, mireille bed rails up on stretcher. Curtain to pts room remains open r/t safety of pt.
--- NOTE | 2022-11-14 15:52 | PC.NURSE ---
pt was given Valium to help for getting his scans. pt going to radiology
--- NOTE | 2022-11-14 16:34 | PC.NURSE ---
DR BURROWS AT BS
--- NOTE | 2022-11-14 16:40 | PC.NURSE ---
Dr. Ward speaking with Dr. Borjas
--- NOTE | 2022-11-14 16:53 | PC.NURSE ---
PT HAS BEEN VERY RESTLESS TRYING TO GET OUT OF BED , AT BS ATIVAN GIVEN PT RESTING , INSULIN DRIP INFUSING
--- NOTE | 2022-11-14 16:55 | PC.NURSE ---
SIMULATION ENGINEER NOTIFIED OF ADMISSION, ROOM [id number]
--- NOTE | 2022-11-14 17:12 | PC.NURSE ---
DR TRUONG AT BS
[2022-11-14 17:15] LABS: POC Glucose,Bedside 478 (70-110)
--- NOTE | 2022-11-14 17:25 | PC.NURSE ---
REPORT GIVEN TO Taye MOREIRA RN
[2022-11-14 17:33] LABS: Troponin I 0.02 ng/ml (0.00-0.034)
--- NOTE | 2022-11-14 17:41 | EXP.HP ---
History of Present Illness *Admission Date: 11/14/22 *Reason for visit:: nausea, vomiting, back pain, confusion *History of present illness: Mr. Gold is a 66-year-old gentleman with type 1 diabetes, CAD, memory impairment, arthritis who presents with nausea and vomiting and back pain. He presents with his and daughter. On arrival to the ER, he is agitated. Uses an insulin pump and has good control of his diabetes. His pump is stopped functioning over the past day however and has developed 24 to 48 hours of nausea, vomiting, back pain. Blood sugar over 400 at home. On arrival to the ER, labs concerning for DKA with elevated glucose, high anion gap, and acidosis on VBG. Patient has been quite agitated. On initial eval by the ER, patient denied any weakness or numbness. Not have any shortness of breath or chest pain. Does describe some low back pain that is worse than his normal. Had a recent fall with injury to his right leg. Currently confused from baseline. ER requested admission for further management of DKA On evaluation, patient is resting comfortably. History obtained from . Patient does not except help with his insulin pump and has been getting more confused over the past year. This is his third episode of DKA in 1 year. Previously well controlled without episodes of DKA. Had an episode last month due to malfunction of his pump and insulin delivery catheter. Both and daughter states that he is stubborn and will not let the help. Previously when he used basal bolus insulin, she could assist and make sure he was taking his insulin. He also does not hear/ignores the alarms from his Dexcom. Stable on room air and afebrile. [facility] Disclaimer: The information contained in this section may have been updated after the patient was seen, as this information can be updated by other users. Medical History Bilateral lower extremity edema Bronchiectasis type 1 CAD (coronary artery disease) Cellulitis COVID-19 Diastolic CHF, acute Fall GERD (gastroesophageal reflux disease) Hyperlipidemia Hypertension Hypothyroidism Insulin pump fitting or adjustment Laceration of lower leg Pneumonia Recurrent bacterial pneumonia Recurrent pneumonia Side effects of vaccination Staphylococcal pneumonia Traumatic ecchymosis of ankle Type 1 diabetes mellitus with diabetic polyneuropathy Surgical History H/O bilateral hip replacements H/O thyroidectomy History of coronary 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) Total knee replacement status Family History Father Mother COVID-19 Father Coronary artery disease Mother Social History Smoking Status: Former smoker alcohol intake: never current occupational status: employed Travel in the last 8 weeks: None household members: spouse housing: house lives independently: Yes marital status: number of children: 5 education level: high school service: No snf: No current occupation: [employer] diet: diabetic 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: [employer] Review of Systems Review of Systems Review of systems (narrative): 14 point review of systems performed, pertinent positives and negatives as per [facility] Meds Home Medications and Allergies Home Medications Medication Instructions Recorded Confirmed Type clopidogrel 75 mg tablet 75 mg PO DAILY platelet inhibitor 04/26/19 11/14/22 History hydroxychloroquine 200 mg tablet 400 mg PO DAILY Arthritis 04/26/19 11/14/22 History levothyroxine 125 mcg tablet 125 mcg PO DAILY Thyroid 04/26/19 11/14/22 History rosuvastatin 20 mg tablet 20 mg PO HS Cholesterol 04/26/19 11/14/22 History lisinopril 2.5 mg tablet 2.5 mg PO HS High blood pressure
[2022-11-14 17:42] LABS: Chloride 105 mmol/L (98-107); Potassium 4.7 mmoL/L (3.5-5.1); Sodium 139 mmol/L (136-145)
--- NOTE | 2022-11-14 17:44 | PC.NURSE ---
1 set of blood cultures sent to lab at this time
[2022-11-14 17:45] LABS: Anion Gap 25.7 mEq/L (5-15); Blood Urea Nitrogen 18 mg/dl (9-20); Calcium 9.1 mg/dl (8.4-10.2); Carbon Dioxide 13 mmol/L (22.0-30.0); Creatinine Clearance Estimated 76 mL/min (50-200); Estimated Glomerular Filt Rate 60 ml/min (>60); GFR (African American) 73 ML/MIN (>60)
[2022-11-14 17:47] LABS: Glucose 559 mg/dl (74-100)
--- NOTE | 2022-11-14 17:51 | PC.NURSE ---
arrived by stretcher to floor from ED
[2022-11-14 17:53] LABS: Hemoglobin A1C 7.1 % (4.0-6.0)
--- NOTE | 2022-11-14 18:07 | EXP.SEPSISRE ---
[facility] Tissue Perfusion Eval Sepsis Re-Evaluation Performed: Yes Date Performed: 11/14/22 Time Performed: 17:15
[2022-11-14 18:11] LABS: Troponin I 0.03 ng/ml (0.00-0.034)
--- NOTE | 2022-11-14 18:15 | PC.NURSE ---
FSBS 398. Insulin gtt titrated down to 10 units/hr.
[2022-11-14 18:57] LABS: POC Glucose,Bedside 398 (70-110)
--- NOTE | 2022-11-14 20:45 | PC.NURSE ---
@191 FSBS 328. gtt titrated to 8units/hr @2014 FSBS 261. gtt titrated to 6 units/hr
[2022-11-14 21:01] LABS: Anion Gap 10.6 mEq/L (5-15); Blood Urea Nitrogen 19 mg/dl (9-20); Calcium 8.8 mg/dl (8.4-10.2); Carbon Dioxide 25 mmol/L (22.0-30.0); Chloride 109 mmol/L (98-107); Creatinine Clearance Estimated 83 mL/min (50-200); Estimated Glomerular Filt Rate 67 ml/min (>60); GFR (African American) 81 ML/MIN (>60); Glucose 271 mg/dl (74-100); Potassium 3.6 mmoL/L (3.5-5.1); Sodium 141 mmol/L (136-145)
[2022-11-14 21:11] LABS: POC Glucose,Bedside 261 (70-110)
[2022-11-14 21:11] LABS: POC Glucose,Bedside 228 (70-110)
[2022-11-14 21:11] LABS: POC Glucose,Bedside 328 (70-110)
[2022-11-14 21:13] LABS: Troponin I 0.04 ng/ml (0.00-0.034)
--- NOTE | 2022-11-14 22:03 | PC.NURSE ---
@2100 FSBS 228. continue current gtt infusion 6 units/hr per protocol @2200 FSBS 198. spoke with MARY Castellon regarding recent BMP, gap is 10.6, potassium 3.6, will start transition phase EXTRUSION BENDER stated he would put in orders.
--- NOTE | 2022-11-14 22:09 | PC.NURSE ---
Addendum entered by Tabatha Mcqueen RN 11/14/22 22:59: spoke with MARY Castellon about turning gtt off 1 hour after giving lantus per protocol, OCCASIONAL BABYSITTER stated if that is what the protocol says, that is fine Addendum entered by Tabatha Mcqueen RN 11/14/22 22:30: order was put in for D5 1/2 NS @ 150, verified with MARY Castellon. stated to infuse D5 1/2 NS @ 150 ml/hr Addendum entered by Tabatha Mcqueen RN 11/14/22 22:17: MARY Castellon called again and stated keep gtt going until 0300, stopn NS, start D51/2 Ns @75, give scheduled 10 units of lantus, target FSBS 150-200, check FSBS q1hr, feed pt as tolerated. Original Note: MARY Castellon called and stated to give 10 units of lantus that was scheduled at 2100, stop insulin gtt, slow rate of NS fluids to 75 mls/hr
--- NOTE | 2022-11-14 23:41 | PC.NURSE ---
@2300 FSBS 151. continue gtt 6 units/hr. insulin gtt stopped @2330 per protocol, FSBS 179, D5 1/2 NS stopped, asked MARY Castellon if we were starting other fluids, no new orders at this time.
[2022-11-14 23:43] LABS: POC Glucose,Bedside 179 (70-110)
[2022-11-14 23:43] LABS: POC Glucose,Bedside 151 (70-110)
[2022-11-14 23:43] LABS: POC Glucose,Bedside 198 (70-110)
[2022-11-15] VITALS (14 sets, daily range): BP systolic 103–138; BP diastolic 48–75; PULSE 70–98; RESP 13–21; TEMP 36.6–37.2; O2SAT 94–100; BMI 31.4
[2022-11-15 01:39] LABS: POC Glucose,Bedside 223 (70-110)
[2022-11-15 01:50] LABS: Acetone, Serum (Rapid) None Detected (None Detect)
[2022-11-15 01:51] LABS: Chloride 108 mmol/L (98-107); Potassium 4.1 mmoL/L (3.5-5.1); Sodium 139 mmol/L (136-145)
[2022-11-15 01:54] LABS: Anion Gap 12.1 mEq/L (5-15); Blood Urea Nitrogen 19 mg/dl (9-20); Carbon Dioxide 23 mmol/L (22.0-30.0); Creatinine Clearance Estimated 92 mL/min (50-200); Estimated Glomerular Filt Rate 74 ml/min (>60); GFR (African American) 90 ML/MIN (>60)
[2022-11-15 01:55] LABS: Calcium 8.5 mg/dl (8.4-10.2); Glucose 244 mg/dl (74-100)
[2022-11-15 03:14] LABS: POC Glucose,Bedside 324 (70-110)
--- NOTE | 2022-11-15 03:20 | PC.NURSE ---
notified MARY Castellon of 299 FSBS of 324, asked if he would order sliding scale insulin. order was put in for SS insulin ACHS, called ELECTRIC FAN [employer]SEMBLER regarding SS insulin at 0300, orders to wait and give ACHS sliding scale insulin at 0600.
[2022-11-15 05:26] LABS: POC Glucose,Bedside 358 (70-110)
[2022-11-15 06:56] LABS: Eosinophils # 0.1 K/mm3 (0.0-0.4); Monocytes # 0.4 K/mm3 (0.1-1.0)
[2022-11-15 07:06] LABS: Chloride 108 mmol/L (98-107); Potassium 3.9 mmoL/L (3.5-5.1); Sodium 138 mmol/L (136-145)
[2022-11-15 07:07] LABS: Basophils % 0.2 % (0.1-2.0); Eosinophils % 0.6 % (0.1-12.0); Hematocrit 34.5 % (42.0-52.0); Lymphocytes # 0.8 K/mm3 (0.7-4.5); Lymphocytes % 9.9 % (10-50); Mean Corpuscular HGB Conc 30.5 g/dL (31.8-35.4); Mean Corpuscular Hemoglobin 24.8 pg (27.0-31.2); Mean Corpuscular Volume 81.1 fl (80-94); Mean Platelet Volume 7.4 fl (7.4-10.4); Monocytes % 4.5 % (1.7-9.3); Neutrophils # 6.6 K/mm3 (1.8-7.8); Neutrophils % 84.7 % (37.0-80.0); Platelet Count 153 K/mm3 (142-424); Red Blood Count 4.26 M/mm3 (4.60-6.20); Red Cell Distribution Width 21.3 % (11.5-17.5); White Blood Count 7.8 K/mm3 (4.8-10.8)
[2022-11-15 07:08] LABS: Alanine Aminotransferase 17 U/L (12-78); Alkaline Phosphatase 72 U/L (38-126); Aspartate Amino Transferase 22 U/L (17-59); Bilirubin,Total 0.8 mg/dl (0.2-1.3); Blood Urea Nitrogen 19 mg/dl (9-20); Creatinine Clearance Estimated 86 mL/min (50-200); Estimated Glomerular Filt Rate 67 ml/min (>60); GFR (African American) 81 ML/MIN (>60); Hemoglobin 10.5 g/dL (14.1-18.0)
[2022-11-15 07:09] LABS: Albumin Level 2.9 g/dl (3.5-5.0); Albumin/Globulin Ratio 1.2 (1.1-1.8); Anion Gap 11.9 mEq/L (5-15); Calcium 8.2 mg/dl (8.4-10.2); Carbon Dioxide 22 mmol/L (22.0-30.0); Globulin 2.5 g/dL (1.3-3.2); Glucose 325 mg/dl (74-100); Magnesium 1.6 mg/dl (1.6-2.3); Total Protein,Serum 5.4 g/dl (6.3-8.2)
--- NOTE | 2022-11-15 07:35 | HMH.PHAINT1 ---
Pharmacy Intervention Comments: MEDICATION RECONCILIATION COMPLETED ON PATIENT USING EXTERNAL FILL HISTORY FROM PHARMACY AND DISCHARGE SUMMARY FROM PREVIOUS ADMISSION. -CHRISTY FANG, MARITOD
--- NOTE | 2022-11-15 08:44 | PC.NURSE ---
Per Dr Borjas, ok to transfer pt to Med Surg status at this time.
--- NOTE | 2022-11-15 10:13 | EXP.ACUTE.PN ---
Subjective *Date: 11/15/22 *Time: 11:36 Interval history: Patient's gap closed on morning labs today. Necessitating oxygen while sleeping due to desats in the 80s. No nausea or vomiting today. Tolerating p.o. intake. Hemodynamically stable. Still confused but pleasant and cooperative. Medical Exam Vital signs and Labs for Last 24 Hours: Vital Signs Temp Pulse Pulse Resp BP BP Pulse Ox 11/15/22 08:00 80 11/15/22 09:00 11/15/22 08:00 84 98 11/15/22 07:37 98.5 F 11/15/22 04:00 80 11/15/22 06:00 83 16 112/48 L 98 11/15/22 05:00 77 18 112/60 94 L 11/15/22 05:00 11/15/22 04:00 98.5 F 11/15/22 04:00 79 13 108/50 L 99 11/15/22 04:00 11/15/22 03:00 89 20 116/48 L 100 11/15/22 03:00 11/15/22 02:00 88 21 103/51 L 97 11/15/22 01:00 11/15/22 01:00 94 H 14 137/65 95 11/15/22 00:00 90 11/15/22 00:00 99.0 F 11/15/22 00:00 98 H 18 138/67 96 11/15/22 00:00 11/14/22 20:00 90 11/14/22 23:00 88 17 131/67 95 11/14/22 23:00 11/14/22 22:00 88 17 136/68 95 11/14/22 21:00 93 H 17 132/73 92 L 11/14/22 21:00 11/14/22 20:00 97.7 F 11/14/22 20:00 11/14/22 20:00 93 H 18 129/65 94 L 11/14/22 19:00 97 H 20 124/61 93 L 11/14/22 19:00 11/14/22 18:00 97 H 18 151/74 H 92 L 11/14/22 17:51 98.6 F 98 H 20 151/71 H 93 L 11/14/22 17:55 97.9 F 101 H 17 112/72 11/14/22 17:00 107 H 22 127/54 L 94 L 11/14/22 16:45 114 H 22 159/68 H 96 11/14/22 14:30 104 H 22 179/85 H 95 11/14/22 14:00 99 H 24 167/129 H 97 11/14/22 13:22 97.7 F 98 H 18 184/86 H 99 O2 Del Method O2 Flow Rate 11/15/22 08:00 11/15/22 09:00 Nasal Cannula 1 11/15/22 08:00 Nasal Cannula 1 11/15/22 07:37 11/15/22 04:00 11/15/22 06:00 Nasal Cannula 1 11/15/22 05:00 Nasal Cannula 1 11/15/22 05:00 Nasal Cannula 1 11/15/22 04:00 11/15/22 04:00 Nasal Cannula 1 11/15/22 04:00 Nasal Cannula 1 11/15/22 03:00 Nasal Cannula 1.5 11/15/22 03:00 Nasal Cannula 1.5 11/15/22 02:00 Room Air 11/15/22 01:00 Room Air 11/15/22 01:00 Room Air 11/15/22 00:00 11/15/22 00:00 11/15/22 00:00 Room Air 11/15/22 00:00 Room Air 11/14/22 20:00 11/14/22 23:00 Room Air 11/14/22 23:00 Room Air 11/14/22 22:00 Room Air 11/14/22 21:00 Room Air 11/14/22 21:00 Room Air 11/14/22 20:00 11/14/22 20:00 Room Air 11/14/22 20:00 Room Air 11/14/22 19:00 Room Air 11/14/22 19:00 Room Air 11/14/22 18:00 Room Air 11/14/22 17:51 Room Air 11/14/22 17:55 Room Air 11/14/22 17:00 11/14/22 16:45 11/14/22 14:30 11/14/22 14:00 11/14/22 13:22 Room Air Intake and Output 11/14/22 11/15/22 11/15/22 23:59 07:59 15:59 Intake Total 624 / 699 435 / 435 Output Total 425 / 425 200 / 200 Balance 199 / 274 235 / 235 Intake: Intake, Oral Amount 360 / 360 Intake, Other Amount 24 / 24 Intake, Total IV Amount 600 / 675 75 / 75 0.9 % Sodium Chloride 1000ML 1, 525 / 525 000 ml @ 75 mls/hr IV .[id number] JOSIE Rx#:[id number] Dex 5% in 0.45% NaCl 1,000 ml @ 75 / 150 75 / 75 150 mls/hr IV .[id number] JOSIE Rx#: [id number] Output: Output, Urine Amount 425 / 425 200 / 200 Other: Number of Voids 1 Number of Unmeasured Voids 1 Weight 91.739 kg 94.149 kg Patient Weight 11/15/22 23:59 Weight 94.149 kg Laboratory Results - last 24 hr 11/14/22 13:35: POC Glucose 486 H* 11/14/22 13:50: WBC 7.8, RBC 5.08, Hgb 12.5 L, Hct 41.6 L, MCV 82.0, MCH 24.7 L, MCHC 30.1 L, RDW 20.9 H, Plt Count 196, MPV 8.3, Neut % (Auto) 89.1 H, Lymph % (Auto) 5.8 L, [place] % (Auto) 4.6, Eos % (Auto) 0.4, Baso % (Auto) 0.1, Neut # (Auto) 7.0, Lymph # (Auto) 0.5 L, [place] # (Auto) 0.4, Eos # (Auto) 0.0, Baso # (Auto) 0.0, Total
[2022-11-15 12:11] LABS: POC Glucose,Bedside 216 (70-110)
--- NOTE | 2022-11-15 16:57 | PC.NURSE ---
Pt has ambulated in the olsen with staff this shift, and has remained up to the chair with his sitting at bedside. chair pull alarm in place r/t AMS. pt is alert to self and is aware he is in the hospital but unsure of which hospital. pt lung sounds are clear with faint crackles in the left base. bowel sounds are active in all quads. stated earlier in the shift that his last bm was yesterday before coming to the ER 11/14. nad noted. pt was able to take a basin bath while sitting in the chair with minimal assistance from staff.
[2022-11-15 17:13] LABS: POC Glucose,Bedside 344 (70-110)
--- NOTE | 2022-11-15 17:44 | PC.NURSE ---
pt ambulated with a steady gait one and a half laps around the unit with 2 assist. pt is up to chair with call light and pull alarm attached.
[2022-11-15 18:33] LABS: Anion Gap 9.5 mEq/L (5-15); Blood Urea Nitrogen 16 mg/dl (9-20); Calcium 8.6 mg/dl (8.4-10.2); Carbon Dioxide 27 mmol/L (22.0-30.0); Chloride 105 mmol/L (98-107); Creatinine Clearance Estimated 94 mL/min (50-200); Estimated Glomerular Filt Rate 74 ml/min (>60); GFR (African American) 90 ML/MIN (>60); Glucose 330 mg/dl (74-100); Potassium 3.5 mmoL/L (3.5-5.1); Sodium 138 mmol/L (136-145)
[2022-11-15 20:48] LABS: POC Glucose,Bedside 334 (70-110)
[2022-11-16] VITALS: BP 109/61; PULSE 65; PULSE 70; RESP 20; TEMP 36.6; O2SAT 96
[2022-11-16 04:00] VITALS: BP 128/62; PULSE 70; PULSE 75; RESP 18; O2SAT 96; BMI 31.2
[2022-11-16 06:01] LABS: POC Glucose,Bedside 129 (70-110)
--- NOTE | 2022-11-16 06:16 | PC.NURSE ---
Patient slept well this shift. Alert to self but remains confused to place. patient on RA with o2 sats above 92%. Complaints of pain treated per MAR with relief noted. Call lugo and personal items in reach POC ongoing.
[2022-11-16 06:34] LABS: Basophils % 0.6 % (0.1-2.0); Eosinophils # 0.4 K/mm3 (0.0-0.4); Eosinophils % 10.4 % (0.1-12.0); Hematocrit 33.5 % (42.0-52.0); Hemoglobin 10.6 g/dL (14.1-18.0); Lymphocytes # 0.9 K/mm3 (0.7-4.5); Mean Corpuscular HGB Conc 31.8 g/dL (31.8-35.4); Mean Corpuscular Hemoglobin 25.4 pg (27.0-31.2); Mean Platelet Volume 7.6 fl (7.4-10.4); Monocytes # 0.2 K/mm3 (0.1-1.0); Monocytes % 4.5 % (1.7-9.3); Neutrophils # 2.5 K/mm3 (1.8-7.8); Neutrophils % 61.6 % (37.0-80.0); Platelet Count 126 K/mm3 (142-424); Red Blood Count 4.19 M/mm3 (4.60-6.20); Red Cell Distribution Width 21.3 % (11.5-17.5)
[2022-11-16 06:42] LABS: Chloride 105 mmol/L (98-107); Potassium 3.5 mmoL/L (3.5-5.1); Sodium 137 mmol/L (136-145)
[2022-11-16 06:45] LABS: Alanine Aminotransferase 16 U/L (12-78); Albumin Level 3.1 g/dl (3.5-5.0); Albumin/Globulin Ratio 1.2 (1.1-1.8); Alkaline Phosphatase 79 U/L (38-126); Anion Gap 7.5 mEq/L (5-15); Aspartate Amino Transferase 26 U/L (17-59); Bilirubin,Total 0.7 mg/dl (0.2-1.3); Blood Urea Nitrogen 13 mg/dl (9-20); Calcium 8.1 mg/dl (8.4-10.2); Carbon Dioxide 28 mmol/L (22.0-30.0); Creatinine Clearance Estimated 93 mL/min (50-200); Estimated Glomerular Filt Rate 74 ml/min (>60); GFR (African American) 90 ML/MIN (>60); Globulin 2.6 g/dL (1.3-3.2); Glucose 126 mg/dl (74-100); Magnesium 1.5 mg/dl (1.6-2.3); Total Protein,Serum 5.7 g/dl (6.3-8.2)
[2022-11-16 07:59] VITALS: BP 130/60; PULSE 73; RESP 18; TEMP 36.7; O2SAT 96
[2022-11-16 08:00] VITALS: PULSE 73; O2SAT 96
[2022-11-16 08:33] VITALS: PULSE 70
--- NOTE | 2022-11-16 09:05 | EXP.DC.SUM ---
General Admission date:: 11/14/22 Discharge date: 11/16/22 HPI HPI HPI: Mr. Gold is a 66-year-old gentleman with type 1 diabetes, CAD, memory impairment, arthritis who presents with nausea and vomiting and back pain. He presents with his and daughter. On arrival to the ER, he is agitated. Uses an insulin pump and has good control of his diabetes. His pump is stopped functioning over the past day however and has developed 24 to 48 hours of nausea, vomiting, back pain. Blood sugar over 400 at home. On arrival to the ER, labs concerning for DKA with elevated glucose, high anion gap, and acidosis on VBG. Patient has been quite agitated. On initial eval by the ER, patient denied any weakness or numbness. Not have any shortness of breath or chest pain. Does describe some low back pain that is worse than his normal. Had a recent fall with injury to his right leg. Currently confused from baseline. ER requested admission for further management of DKA On evaluation, patient is resting comfortably. History obtained from . Patient does not except help with his insulin pump and has been getting more confused over the past year. This is his third episode of DKA in 1 year. Previously well controlled without episodes of DKA. Had an episode last month due to malfunction of his pump and insulin delivery catheter. Both and daughter states that he is stubborn and will not let the help. Previously when he used basal bolus insulin, she could assist and make sure he was taking his insulin. He also does not hear/ignores the alarms from his Dexcom. Stable on room air and afebrile. Hospital Course Hospital Course Hospital Course: The patient was admitted to the telemetry unit with IV fluid resuscitation and insulin drip. His anion gap closed and his IV insulin was transitioned to basal and sliding scale with p.o. intake. His laboratory studies and inflammatory markers were trended and identified improvement and stability. With his identified improvement he inquired about discharge home. His was at bedside on day of discharge. We discussed memory changes and recent admissions for DKA. He has been started on donezepil and she plans to follow-up with PCP to discuss further. I spent 35 minutes in [id number] time with the patient, at bedside and nursing staff (Shweta) concerning the discharge process. We discussed the admitting diagnoses and hospital course. We discussed identified improvement and the patient's desire to be discharged. We reviewed inpatient studies and imaging. The patient voiced understanding on the importance of follow-up with his primary care provider and specialist(s). The patient plans to be compliant with the medication regimen prescribed and follow-up appointments. He understands that he can return to the emergency department with any sudden changes or concerns. Exam Data for Last 24 hours Vital signs and Labs for Last 24 Hours: Temp Pulse Resp BP Pulse Ox O2 Del Method O2 Flow Rate 98.0 F 73 18 130/60 96 Room Air 1 11/16/22 07:59 11/16/22 08:00 11/16/22 07:59 11/16/22 07:59 11/16/22 08:00 11/16/22 08:00 11/15/22 09:00 Laboratory Results - last 24 hr 11/15/22 12:04: POC Glucose 216 H 11/15/22 16:50: POC Glucose 344 H* 11/15/22 18:00: Sodium 138, Potassium 3.5, Chloride 105, Carbon Dioxide 27, Anion Gap 9.5, BUN 16, Creatinine 1.00, Estimated Creat Clear 94, Estimated GFR 74, Est GFR ( Amer) 90, Glucose 330 H, Calcium 8.6 11/15/22 20:15: POC Glucose 334 H* 11/16/22 05:48: WBC 4.0 L D, RBC 4.19 L, Hgb 10.6 L, Hct 33.5 L, MCV 80.0, MCH 25.4 L, MCHC 31.8, RDW 21.3 H, Plt Count 126 L, MPV 7.6, Neut % (Auto) 61.6, Lymph % (Auto) 23.0, [place] % (Auto) 4.5, Eos % (Auto) 10.4, Baso % (Auto) 0.6, Neut # (Auto) 2.5, Lymph # (Auto) 0.9, [place] # (Auto) 0.2, Eos # (Auto) 0.4, Baso # (Auto) 0.0, Sodium 137, Potassium 3.5, Chloride 105, Carbon Dioxide 28, Anion Gap 7.5, BUN 13, Creatinine 1.
--- NOTE | 2022-11-16 09:47 | HMH.PHAINT1 ---
Pharmacy Intervention Comments: DISCHARGE MEDICATION COUNSELING PROVIDED. DISCUSSED THE FOLLOWING MEDICATION CHANGES: -STOP LASIX 80 MG DAILY AND START LASIX 40 MG DAILY. PATIENT VERBALIZED NO QUESTIONS AT THIS TIME.
[2022-11-16 11:52] LABS: POC Glucose,Bedside 333 (70-110)
--- NOTE | 2022-11-16 12:53 | PC.NURSE ---
[address] Harvey regarding pts wifes concern that he is walking with a walker. when at home she states that pt will occasionally use a crutch, but only when he feels like it. during his stay pt has ambulated with staff and a walker.
--- NOTE | 2022-11-16 14:06 | HMH.PTEV ---
Physical Therapy Evaluation Rehab PT IP Evaluation Start: 11/16/22 11:38 Freq: ONCE Status: Discharge Protocol: Document 11/16/22 14:03 BETTYRandiLOW (Rec: 11/16/22 14:06 PHOCHERYL [id number]) Subjective/History History History 66 yowm adm to [facility] with DKA. He has hx of CAD, IDDM with neuropathy, R eye vision changes. He lives with spouse, 2-3 step to enter the home, and he is generally independent with all mobility without AD at baseline. Subjective Subjective Pt currently has no c/o, reports he is feeling much better. New diagnosis of cancer in past 12 No months? Rehab PT IP Eval Objective Appearance Patient Behavior Appropriate Patient Orientation Person,Place,Time Difficulty following instructions none Speech Pattern Clear Ambulation Patient Able to Ambulate Yes Ambulation Observation IP General Gait Pattern Observation No Deviations/Normal Ambulation Distance (feet) 100 Ambulation Assistive Device None Ambulation Ability Supervision/Stand by Balance Ability to Arise Able, uses arms to help Sitting Balance Steady, safe Standing Balance Steady, wide stance Dynamic Sitting Balance Ability Good Dynamic Standing Balance Ability Fair Transfers Bed Transfer Ability Supervision/Stand by Chair Transfer Ability Supervision/Stand by Sit to Stand Bed Transfer Ability Supervision/Stand by Sit to Stand Chair Transfer Ability Supervision/Stand by Rehab PT IP prob,goals,plan Problems Date of Evaluation: 11/16/22 Discharge Plan PT Discharge Plan Pt currently appears to be at baseline for all mobility and is appropriate to return home once medically stable for d/c. Recommend cane for home use due to hx of falls. Eval Complexity Eval Charge Codes 25749 - High Complexity PHYSICIAN CERTIFICATION: I certify the specified therapy services for Obdulio Gold are required, authorized, and reviewed every 30 days.
--- NOTE | 2022-11-18 13:25 | CARE MANAGER ---
Contacted patient related to hospital discharge. Patient aware of medication change and follow up appointment. Denies questions or concerns at this time. ARTHUR Gama
== END 2022-11-16 14:03 | disposition home or self-care (01) | DRG 638 ==
LOC: ER 13:36 → 2ND 17:09
PROVIDERS: Admitting Provider Internal Medicine Adolescent Medicine; Emergency Provider Emergency Medicine; PCP Family Medicine; Visit Provider Internal Medicine Adolescent Medicine
DX: E10.10 Type 1 diabetes mellitus with ketoacidosis without coma (principal); G93.40 Encephalopathy, unspecified; I50.32 Chronic diastolic (congestive) heart failure; Z96.643 Presence of artificial hip joint, bilateral; Z96.651 Presence of right artificial knee joint; I11.0 Hypertensive heart disease with heart failure; E10.40 Type 1 diabetes mellitus with diabetic neuropathy, unspecified; Z79.4 Long term (current) use of insulin; Z96.41 Presence of insulin pump (external) (internal); Z87.891 Personal history of nicotine dependence; E03.9 Hypothyroidism, unspecified; M10.9 Gout, unspecified
CPT/HCPCS: 36415; 70450; 71045; 72125; 72131; 73610; 73630; 80048; 80053; 81001; 82009; 82803; 82962; 83036; 83735; 83930; 84100; 84484; 85007; 85025; 87040; 87086; 93005; 97163; 99291; J0696

== ENCOUNTER → 2023-01-10 10:10 | Outpatient (CLI) | payer MEDICARE, OTHER, SELFPAY ==
[2023-01-10 11:30] LABS: Chloride 104 mmol/L (98-107); Potassium 4.3 mmoL/L (3.5-5.1); Sodium 138 mmol/L (136-145)
[2023-01-10 11:33] LABS: Anion Gap 9.3 mEq/L (5-15); Blood Urea Nitrogen 16 mg/dl (9-20); Calcium 8.5 mg/dl (8.4-10.2); Carbon Dioxide 29 mmol/L (22.0-30.0); Estimated Glomerular Filt Rate 66 ml/min (>60); GFR (African American) 80 ML/MIN (>60); Glucose 314 mg/dl (74-100)
== END ==
PROVIDERS: Visit Provider Optometrist
DX: N18.30 Chronic kidney disease, stage 3 unspecified (principal)
CPT/HCPCS: 36415; 80048

== ENCOUNTER → 2023-01-13 13:53 | Outpatient (CLI) | payer MEDICARE, OTHER, SELFPAY ==
[2023-01-13 14:02] LABS: Microscopic, Urine URINE MICROSCOPIC (MICROSCOPIC)
[2023-01-13 14:37] LABS: Basophils % 0.7 % (0.1-2.0); Eosinophils % 22.6 % (0.1-12.0); Hematocrit 37.1 % (42.0-52.0); Lymphocytes # 1.4 K/mm3 (0.7-4.5); Lymphocytes % 30.7 % (10-50); Mean Corpuscular HGB Conc 32.3 g/dL (31.8-35.4); Mean Corpuscular Hemoglobin 27.7 pg (27.0-31.2); Mean Corpuscular Volume 85.9 fl (80-94); Mean Platelet Volume 7.7 fl (7.4-10.4); Monocytes # 0.3 K/mm3 (0.1-1.0); Monocytes % 5.6 % (1.7-9.3); Neutrophils # 1.8 K/mm3 (1.8-7.8); Neutrophils % 40.5 % (37.0-80.0); Platelet Count 175 K/mm3 (142-424); Red Blood Count 4.31 M/mm3 (4.60-6.20); White Blood Count 4.6 K/mm3 (4.8-10.8)
[2023-01-13 14:52] LABS: Appearance,Urine CLEAR (Clear); Bilirubin,Urine Negative (Negative); Blood, Urine Negative (Negative); Color,Urine YELLOW (Yellow); Glucose,Urine (UA) Negative (Negative); Ketones,Urine Negative (Negative); Leukocyte Esterase,Urine Negative (Negative); Nitrate,Urine Negative (Negative); PH,Urine 6.5 (5.0-8.5); Protein,Urine Negative (Negative)
[2023-01-13 15:41] LABS: Bacteria,Urine Trace /lpf
[2023-01-13 15:42] LABS: Alanine Aminotransferase 16 U/L (12-78); Albumin/Globulin Ratio 1.5 (1.1-1.8); Alkaline Phosphatase 81 U/L (38-126); Anion Gap 9.6 mEq/L (5-15); Aspartate Amino Transferase 29 U/L (17-59); Bilirubin,Total 0.8 mg/dl (0.2-1.3); Blood Urea Nitrogen 14 mg/dl (9-20); Calcium 8.6 mg/dl (8.4-10.2); Carbon Dioxide 31 mmol/L (22.0-30.0); Chloride 103 mmol/L (98-107); Estimated Glomerular Filt Rate 60 ml/min (>60); GFR (African American) 73 ML/MIN (>60); Globulin 2.6 g/dL (1.3-3.2); Glucose 83 mg/dl (74-100); Potassium 3.6 mmoL/L (3.5-5.1); Sodium 140 mmol/L (136-145); Total Protein,Serum 6.6 g/dl (6.3-8.2); Uric Acid 3.1 mg/dl (3.5-8.5)
[2023-01-13 15:55] LABS: Intact Parathyroid Hormone 95.9 pg/mL (7.5-53.5)
[2023-01-13 15:59] LABS: 25-OH Vitamin D, Total 62.3 ng/mL (30-100)
[2023-01-13 16:05] LABS: Hemoglobin A1C 6.8 % (4.0-6.0)
[2023-01-13 16:50] LABS: Creatinine,Urine Random 24 mg/dL (Not Estab.)
== END ==
PROVIDERS: PCP Family Medicine; Visit Provider Internal Medicine Nephrology
DX: N18.30 Chronic kidney disease, stage 3 unspecified (principal); I10 Essential (primary) hypertension; N40.0 Benign prostatic hyperplasia without lower urinary tract symptoms; R31.9 Hematuria, unspecified; E10.9 Type 1 diabetes mellitus without complications; E21.3 Hyperparathyroidism, unspecified; Z79.4 Long term (current) use of insulin
CPT/HCPCS: 36415; 80053; 81001; 82306; 82570; 83036; 83970; 84155; 84550; 85025

== ENCOUNTER → 2023-01-26 08:37 | Outpatient (CLI) | payer MEDICARE, OTHER, SELFPAY ==
--- NOTE | 2023-01-26 08:40 | XR_ITS ---
FINAL REPORT CLINICAL HISTORY: Left foot pain/Knot COMPARISON: None FINDINGS: LEFT FOOT Three views of the left foot demonstrate no acute fracture or dislocation. There is a marked hallux valgus deformity. There is lateral subluxation of the first proximal phalanx relative to the first metatarsal. There are moderate hypertrophic changes at the tarsometatarsal joints. Vascular calcifications are noted over the dorsum of the foot. On the lateral view, a pes planus deformity is noted. IMPRESSION: Degenerative changes without acute bony abnormality. Reviewed, Interpreted and Dictated by Palomo Chowdhury MD Transcribed by Susan Escobar Authenticated and [facility][1]
== END ==
PROVIDERS: PCP Family Medicine; Visit Provider Nurse Practitioner Family
DX: M79.672 Pain in left foot (principal)
CPT/HCPCS: 73630

== ENCOUNTER → 2023-02-02 12:43 | Outpatient (CLI) | payer MEDICARE, OTHER, SELFPAY ==
--- NOTE | 2023-02-02 12:45 | US_ITS ---
FINAL REPORT CLINICAL HISTORY: Diminished Pulses in lower extremities,DM,HTN,CLAUDICATION,REST PAIN FINDINGS: COMPLETE ANKLE/BRACHIAL INDICES BILATERAL Complete ankle brachial indices were obtained. The right OFELIA is 1.5. The left OFELIA is 1.1. IMPRESSION: ABIs within normal limits bilaterally. Reviewed, Interpreted and Dictated by Palomo Chowdhury MD Transcribed by Beatriz Mulligan Authenticated and [facility]
== END ==
LOC: RT 12:43
PROVIDERS: PCP Family Medicine; Visit Provider Podiatrist
DX: R09.89 Other specified symptoms and signs involving the circulatory and respiratory systems (principal)
CPT/HCPCS: 93923

== ENCOUNTER 2023-02-14 08:56 | Emergency (ER) | payer MEDICARE, OTHER, SELFPAY ==
[2023-02-14 09:10] VITALS: BP 151/68; PULSE 81; RESP 18; TEMP 36.6; O2SAT 95; BMI 30.2
--- NOTE | 2023-02-14 09:24 | EXP.UTC ---
Discharge Plan Disposition Patient Disposition: Home, Self-Care Condition: Good Prescriptions Prescriptions: New sulfamethoxazole-trimethoprim [Bactrim DS] 800-160 mg Tablet 1 tab PO BID Qty: 20 0RF cephalexin 500 mg capsule 500 mg PO QID Qty: 40 0RF mupirocin 2 % ointment 1 applic topical TID 7 Days Qty: 15 0RF No Action lisinopril 2.5 mg tablet 2.5 mg PO HS nitroglycerin 0.4 mg tablet, sublingual 0.4 mg SUBLINGUAL Q5MINP PRN (Reason: Chest Pain) Rx Instructions: do not exceed 3 doses per episode sucralfate [Carafate] 1 gram tablet 1 g PO ACHS potassium chloride 10 mEq tablet extended release 10 meq PO DAILY fluticasone propionate 50 mcg/actuation spray,suspension 2 spray INTRANASAL DAILY duloxetine 60 mg capsule,delayed release(DR/EC) 60 mg PO BID aspirin [Adult Low Dose Aspirin] 81 mg tablet,delayed release (DR/EC) 81 mg PO DAILY donepezil 10 mg tablet 10 mg PO DAILY gabapentin 800 mg tablet 800 mg PO TID allopurinol 300 mg tablet 300 mg PO DAILY clopidogrel 75 MG tablet 75 mg PO DAILY levothyroxine 125 MCG tablet 125 mcg PO DAILY hydroxychloroquine 200 MG tablet 400 mg PO DAILY rosuvastatin 20 MG tablet 20 mg PO HS furosemide 80 mg tablet 40 mg PO DAILY Qty: 30 0RF hydrocodone-acetaminophen 5-325 mg tablet 1 tab PO TIDP PRN (Reason: mild to moderate pain) Patient Comments: TAKE 1 TABLET BY MOUTH EVERY 8 HOURS colchicine 0.6 mg tablet 0.6 mg PO BID metoprolol succinate 25 mg tablet extended release 24 hr 12.5 mg PO DAILY valacyclovir 500 mg tablet 500 mg PO DAILY Patient Comments: TAKE 1 TABLET BY MOUTH EVERY DAY tamsulosin 0.4 mg capsule 0.8 mg PO HS insulin glargine [Lantus Solostar U-100 Insulin] 100 unit/mL (3 mL) insulin pen 20 unit SQ HS tizanidine 4 mg tablet 4 mg PO BID erythromycin 5 mg/gram (0.5 %) ointment 1 applic ophthalmic (eye) HS Rx Instructions: Apply a small amount into both eyes at bedtime diclofenac sodium 1 % gel 1 ea TOPICAL QIDP PRN (Reason: Pain) polysaccharide iron complex [Ferrex 150] 150 mg iron Capsule 150 mg PO BID Qty: 60 0RF ascorbic acid (vitamin C) [Vitamin C] 500 mg Tablet 500 mg PO BID Qty: 60 0RF pantoprazole 40 mg Tablet,Delayed Release (Dr/Ec) 40 mg PO DAILY Qty: 30 0RF Referrals Follow up/Referrals: Elijah Serra DO [Primary Care Provider] - See instructions Activity Restrictions/Add. Instructions Additional Instructions/Restrictions: Keep the affected area clean and dry. Follow up with your regular doctor. Take the antibiotics as directed and apply the topical antibiotics as directed. Apply warm wet compresses to the affected area three or four times per day. GO TO THE ER FOR ANY WORSENING SYMPTOMS Clinical Impressions Clinical Impression: Cutaneous abscess of buttock Instructions Patient Instructions: Boil Discharge ED Provider: Alfonso Hyatt [facility] General Stated complaint: poss boil on buttox Time Seen by Provider: 02/14/23 09:24 History of Present Illness Provider Complaint: He states that he has several boils on his right buttock and his lower abdomen. These have been present for the past 1 week or so. They seem to be getting worse so he came in today. Related Data Home Medications Medication Instructions Recorded Confirmed clopidogrel 75 mg tablet 75 mg PO DAILY platelet inhibitor 04/26/19 01/26/23 hydroxychloroquine 200 mg tablet 400 mg PO DAILY Arthritis 04/26/19 01/26/23 levothyroxine 125 mcg tablet 125 mcg PO DAILY Thyroid 04/26/19 01/26/23 rosuvastatin 20 mg tablet 20 mg PO HS Cholesterol 04/26/19 01/26/23 lisinopril 2.5 mg tablet 2.5 mg PO HS High blood pressure 02/04/20 01/26/23 nitroglycerin 0.4 mg sublingual 0.4 mg sublingual Q5MINP PRN Chest 02/04/20 01/26/23 tablet Pain sucralfate 1 gram tablet (Carafate) 1 g PO ACHS acid reflux 02/04/20 01/26/23 duloxetine 60 mg capsule,delayed 60 mg PO BID Mood 04/15/20 01/26/23 release fluticasone propionate 50 2 spray intranasal DAILY Allergy 04/15/20 01/26/23 mcg/actuation nasal symptoms spray,suspension potassium chloride 10 mEq 10 meq PO DAILY Supplement 04/15/20 01/26/23 tablet,extended release aspirin 81 mg tablet,delayed 81 mg PO DAILY Heart disease 10/20/21 01/26/23 release (Adult Low Dose Aspirin) hydrocodone 5 mg-acetaminophen 325 1 tab PO TIDP PRN mild to moderate 10/30/21 01/26/23 mg tablet pain colchicine 0.6 mg tablet 0.6 mg PO BID gout 10/31/21 01/26/23 metoprolol succinate 25 mg 12.5 mg PO DAILY High blood 10/31/21 01/26/23 tablet,extended release 24 hr pressure insulin glargine 100 unit/mL (3 20 unit SQ HS Diabetes 12/06/21 01/26/23 mL) subcutaneous pen (Lantus Solostar U-100 Insulin) tamsulosin 0.4 mg capsule 0.8 mg PO HS prostate 12/06/21 01/26/23 valacyclovir 500 mg tablet 500 mg PO DAILY anti-viral 12/06/21 01/26/23 allopurinol 300 mg tablet 300 mg PO DAILY Gout 05/18/22 01/26/23 donepezil 10 mg tablet 10 mg PO DAILY Memory 05/18/22 01/26/23 gabapentin 800 mg tablet 800 mg PO TID Pain 05/18/22 01/26/23 diclofenac sodium 1 % topical gel 1 ea topical QIDP PRN Pain 10/20/22 01/26/23 erythromycin 5 mg/gram (0.5 %) eye 1 applic ophthalmic (eye) HS 10/20/22 01/26/23 ointment Infection tizanidine 4 mg tablet 4 mg PO BID Muscle Spasm 10/20/22 01/26/23 Previous Rx's Medication Instructions Recorded ascorbic acid (vitamin C) 500 mg 500 mg PO BID #60 tabs 10/23/22 tablet (Vitamin C) pantoprazole 40 mg tablet,delayed 40 mg PO DAILY #30 tabs 10/23/22 release polysaccharide iron complex 150 mg 150 mg PO BID #60 caps 10/23/22 iron capsule (Ferrex) furosemide 80 mg tablet 40 mg PO DAILY Fluid #30 tabs 11/16/22 cephalexin 500 mg capsule 500 mg PO QID #40 caps 02/14/23 mupirocin 2 % topical ointment 1 applic topical TID 7 days #15 02/14/23 grams sulfamethoxazole 800 1 tab PO BID #20 tabs 02/14/23 mg-trimethoprim 160 mg tablet (Bactrim DS) Allergies Allergy/AdvReac Type Severity Reaction Status Date / Time iodine [IODINE] Allergy Mild Verified 02/14/23 09:34 adhesive tape Allergy Verified 02/14/23 09:34 [facility] Disclaimer: The information contained in this section may have been updated after the patient was seen, as this information can be updated by other users. Medical History Bilateral lower extremity edema Bronchiectasis type 1 CAD (coronary artery disease) Cellulitis COVID-19 Diastolic CHF, acute Fall GERD (gastroesophageal reflux disease) Hyperlipidemia Hypertension Hypothyroidism Insulin pump fitting or adjustment Laceration of lower leg Pneumonia Recurrent bacterial pneumonia Recurrent pneumonia Side effects of vaccination Staphylococcal pneumonia Traumatic ecchymosis of ankle Type 1 diabetes mellitus with diabetic polyneuropathy Surgical History H/O bilateral hip replacements H/O thyroidectomy History of coronary 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) Total knee replacement status Family History Mother , at age 79 Coronary artery disease Father , at age 92 COVID-19 Social History Smoking Status: Former smoker alcohol intake: never current occupational status: employed Travel in the last 8 weeks: None household members: spouse housing: house lives independently: Yes marital status: number of children: 5 education level: high school service: No retirement: No current occupation: [employer] diet: diabetic marianna/worship: [employer] ROS Obtained: Yes All systems reviewed & no additional complaints except as documented Constitutional Constitutional: Denies chills and Denies fever(s) Eyes Eyes: Denies eye discharge ENT Ears, Nose, Mouth, and Throat: Denies dizziness, Denies otalgia and Denies sore throat Cardiovascular Cardiovascular: Denies chest pain Respiratory Respiratory: Denies shortness of breath, Denies chest congestion, Denies cough, Denies stridor and Denies wheezing Gastrointestinal Gastrointestingal: Denies nausea or vomiting Musculoskeletal Musculoskeletal: Reports system reviewed and no additional complaints, except as documented and Denies arthralgias Integumentary/Breasts Skin/Breast: Reports as per HPI Neurologic Neurologic: Denies dizziness and Denies paresthesias Allergic/Immunologic Allergic/Immunologic: Denies wheezing Physical Exam General General appearance: alert and in no apparent distress Head Head exam: atraumatic, normocephalic and normal inspection Eye Eye exam: Present normal appearance, PERRL and EOMI ENT ENT exam: Present normal exam, normal oropharynx, mucous membranes moist, TM's normal bilaterally and normal external ear exam Neck Neck exam: Present normal inspection, full ROM and trachea midline; Absent meningismus or lymphadenopathy Chest Chest inspection: Present normal inspection and symmetric chest wall rise; Absent tenderness Respiratory Respiratory exam: Present normal lung sounds bilaterally; Absent respiratory distress Cardiovascular Cardiovascular exam: Present regular rate and normal rhythm; Absent JVD Abdominal Exam Abdominal exam: Present soft and normal bowel sounds; Absent distention, tenderness or guarding Extremities Exam Extremities exam: Present normal inspection, full ROM and normal capillary refill; Absent calf tenderness Back Exam Back exam: Present normal inspection; Absent tenderness Neurological Exam Neurological exam: Present alert and oriented X3 Psychiatric Psychiatric exam: Present normal affect and normal mood Skin Skin exam: Present other (there are 3 areas of redness on his right buttock. they each measure 1 cm diameter. no induration, no open wound and no drainage) Lymphatic Lymphatic Findings: no adenopathy Medical Decision Making Medical Records Medical records reviewed: No I reviewed the patient's medical records. Herman Inquiry Pt receiving controlled substance: No
[2023-02-14 09:54] VITALS: BP 151/68; PULSE 81; RESP 18; TEMP 36.6; O2SAT 95
== END 2023-02-14 09:54 | disposition home or self-care (01) ==
PROVIDERS: Emergency Provider Nurse Practitioner Family; PCP Family Medicine
DX: L02.31 Cutaneous abscess of buttock (principal); E11.40 Type 2 diabetes mellitus with diabetic neuropathy, unspecified; I11.0 Hypertensive heart disease with heart failure; I50.31 Acute diastolic (congestive) heart failure; K21.9 Gastro-esophageal reflux disease without esophagitis; E78.5 Hyperlipidemia, unspecified; E03.9 Hypothyroidism, unspecified; Z79.4 Long term (current) use of insulin
CPT/HCPCS: 99212; 99214; G0463

== ENCOUNTER 2023-03-31 09:00 | Outpatient (RCR) | payer MEDICARE, OTHER, SELFPAY | END 2023-03-31 10:15 | disposition home or self-care (01) | LOC: PT 09:00 | PROVIDERS: PCP Family Medicine; Visit Provider Family Medicine | DX: Z91.81 History of falling (principal); R26.81 Unsteadiness on feet | CPT/HCPCS: 97110; 97112; 97163; 97164; 97530 ==

== ENCOUNTER 2023-06-29 14:00 | Outpatient (RCR) | payer MEDICARE, OTHER, SELFPAY | END 2023-06-29 15:30 | disposition home or self-care (01) | LOC: PT 14:00 | PROVIDERS: Visit Provider Physician Assistant | DX: M25.552 Pain in left hip (principal) | CPT/HCPCS: 97010; 97110; 97112; 97163; 97164; 97530 ==

== ENCOUNTER 2023-07-18 15:00 | Outpatient (CLI) | payer MEDICARE, OTHER, SELFPAY ==
--- NOTE | 2023-07-18 15:04 | CT_ITS ---
FINAL REPORT TECHNIQUE: Axial imaging of the chest was obtained without contrast. Reformatted images were also obtained and reviewed.This study was performed with techniques to keep radiation doses as low as reasonably achievable, (ALARA). Individualized dose reduction technique using automated exposure control or adjustment of mA and/or kV according to the patient's size were employed. CLINICAL HISTORY: BRONCHIECTASIS COMPARISON: 04/07/2022 FINDINGS: There were changes of median sternotomy with dehiscence of the sternotomy, stable from prior exam. There is no axillary adenopathy. There is no hilar or mediastinal mass or adenopathy. Heart size is normal. There is no pericardial or pleural effusion. Limited images of the upper abdomen demonstrate postoperative changes of cholecystectomy. There is a posterior left renal cyst, unchanged.. There is scarring at the lung bases. Mild left lower lobe bronchiectasis is seen. There is mild right posterior pleural thickening, stable. IMPRESSION: Mild left lower lobe bronchiectasis. Mild, posterior right pleural thickening, stable. Reviewed, Interpreted and Dictated by Darwin Thompson III, MD Transcribed by Radha Harrison Authenticated and [facility]
== END 2023-07-18 23:59 | disposition home or self-care (01) ==
LOC: RAD 15:00
PROVIDERS: PCP Family Medicine; Visit Provider Physician Assistant
DX: J47.9 Bronchiectasis, uncomplicated (principal)
CPT/HCPCS: 71250

== ENCOUNTER 2023-08-10 08:57 | Day surgery (SDC) | payer MEDICARE, OTHER, SELFPAY ==
[2023-08-08 13:12] VITALS: BMI 28.1
[2023-08-10] MEDS: LACTATED RINGERS 1000ML 1,000 ML 100 ML IV (09:16)
[2023-08-10 09:19] VITALS: BP 116/55; PULSE 66; RESP 18; TEMP 36.2; O2SAT 95
[2023-08-10 09:23] LABS: POC Glucose,Bedside 115 (70-110)
--- NOTE | 2023-08-10 10:07 | EXP.ANES.CKL ---
[facility] Disclaimer: The information contained in this section may have been updated after the patient was seen, as this information can be updated by other users. Medical History Bronchiectasis type 1 Recurrent bacterial pneumonia Staphylococcal pneumonia Recurrent pneumonia Diastolic CHF, acute Bilateral lower extremity edema Pneumonia COVID-19 CAD (coronary artery disease) GERD (gastroesophageal reflux disease) Hypothyroidism Hyperlipidemia Hypertension Insulin pump fitting or adjustment Fall Side effects of vaccination Type 1 diabetes mellitus with diabetic polyneuropathy Traumatic ecchymosis of ankle Cellulitis Laceration of lower leg Surgical History History of coronary artery bypass graft H/O thyroidectomy Total knee replacement status H/O bilateral hip replacements History of total right knee replacement (TKR) Family History Mother Coronary artery disease Father COVID-19 Social History Smoking Status: Former smoker alcohol intake: never substance use type: denies use current occupational status: employed Travel in the last 8 weeks: None household members: spouse housing: house lives independently: Yes marital status: number of children: 5 education level: high school service: No retirement: No current occupation: [employer] diet: diabetic marianna/islam: [employer] [facility] Anesthesia Checklist Patient Identification Patient Identification: Arm Band and Verbal (Name & ) Structural Data Admitted From: Home Planned Operative Procedure/s: EGD Consent for Planned Operative Procedure(s) Verified: Yes Verified Documents: Surgical Consent and History and Physical NPO Status Verified Time NPO: 00:00 Chart Verification Results Verified: CBC and BMP Additional verifications Anesthesia Reactions: No Airway Assessment Mallampati Score:: Class II C-Spine Mobility Assessed: Yes TMJ Mobility Assessed: Yes Dentition: Edentulous Neurological Assessment Level of Consciousness: Awake Hx Seizures: No Numbness or tingling in extremities: No Anesthesia Plan Anesthesia Risk discussed: Yes Anesthesia Plan: Verified ASA Class: III Anesthesia Type: MAC
[2023-08-10 10:13] VITALS: O2SAT 95
--- NOTE | 2023-08-10 10:28 | HMH.SCOPE ---
Procedure: Date: 08/10/23 Patient Date of :: 1955 Procedure Performed:: EGD,bx's, dilation Indications:: Dysphagia Performing Provider:: Washington Fleming MD Referring Provider:: [facility] GI Sedation:: Propofol Procedure:: The gastroscope was gently passed through the incisoral orifice into the oral cavity and under direct visualization the esophagus was intubated. The endoscope was passed down the esophagus, through the stomach, and into the duodenum. Color, texture, mucosa, and anatomy of the esophagus, stomach, and duodenum were carefully examined with the scope. Findings:: Oropharynx: normal Esophagus: normal, minor tightness at EGJ, dilated with several passes of the 58F bougie EG Junction: intact at 40 cm, small hiatus hernia Cardia: normal Fundus: normal, erosions noted, biopsied Body: normal Antrum: normal Duodenal bulb: normal Duodenum (second and third portion): normal Impression: Erosive gastritis Hiatus hernia Dysphagia treated with bougie dilation Specimens:: Gastric Recommendations:: Consider repeat dilation therapy in THREE years or so, sooner if clinically indicated Complications:: None Estimated blood obtained (mL): 0 Colonoscopy Component Colonoscopy Component Was a colonoscopy performed during today's procedure?: No
[2023-08-10 10:30] VITALS: BP 100/37; PULSE 60; RESP 12; TEMP 36.3; O2SAT 91
[2023-08-10 10:40] VITALS: BP 86/37; PULSE 58; RESP 12; O2SAT 97
[2023-08-10 10:50] VITALS: BP 125/59; PULSE 62; RESP 16; O2SAT 96
[2023-08-10 11:00] VITALS: BP 123/58; PULSE 58; RESP 16; O2SAT 99
== END 2023-08-10 11:05 | disposition home or self-care (01) ==
LOC: OUTP 08:58
PROVIDERS: Visit Provider Internal Medicine Gastroenterology
PROC: 0DJ08ZZ Inspection of Upper Intestinal Tract, Via Natural or Artificial Opening Endoscopic (ICD-10-PCS; CPT 43235; principal; 2023-08-10 10:00)
DX: R19.7 Diarrhea, unspecified (principal); E10.8 Type 1 diabetes mellitus with unspecified complications; R13.10 Dysphagia, unspecified; K29.00 Acute gastritis without bleeding; K44.9 Diaphragmatic hernia without obstruction or gangrene
CPT/HCPCS: 43239; 43450; 82962; 88305; J7120

== ENCOUNTER 2023-08-26 08:51 | Outpatient (CLI) | payer MEDICARE, OTHER, SELFPAY ==
--- NOTE | 2023-08-26 08:56 | XR_ITS ---
FINAL REPORT TECHNIQUE: Bone densitometry calculations of the lumbar spine and left hip were obtained. CLINICAL HISTORY: SCREENING FINDINGS: Using L1-4, the bone mineral density of the spine is 1.178 g/cm2, corresponding to T-score of 0.8 and a Z score of 1.7. Using 1/3 radius the bone mineral density of the radius is 0.631 g/cm2, corresponding to a T-score of -3.5 and a Z-score of -2.2. NOTE: T-score: Standard deviation compared with peak bone mass of young adult mean. *Following the recommendations of the International Society of Bone densitometry, classification of hip BMD is based on the lower of two T-scores; total hip or femoral neck. IMPRESSION: Normal bone mineral density of the lumbar spine. Diminished bone mineral density of the 1/3 radius consistent with osteoporosis. Reviewed, Interpreted and Dictated by Nolvia Lainez MD Transcribed by Beatriz Mulligan Authenticated and . [facility]
== END 2023-08-26 23:59 | disposition home or self-care (01) ==
LOC: RAD 08:52
PROVIDERS: PCP Nurse Practitioner; Visit Provider Nurse Practitioner
DX: M85.88 Other specified disorders of bone density and structure, other site (principal); M84.40XA Pathological fracture, unspecified site, initial encounter for fracture
CPT/HCPCS: 77080

== ENCOUNTER 2023-08-29 16:03 | Emergency (ER) | payer MEDICARE, OTHER, SELFPAY ==
[2023-08-29] VITALS (9 sets, daily range): BP systolic 110–168; BP diastolic 67–88; PULSE 65–90; RESP 16–20; TEMP 36.7–36.8; O2SAT 95–98; BMI 28.8; BMI 31.4
--- NOTE | 2023-08-29 16:09 | ED_ITS ---
<Statement entered by Matias Ward MD - 08/29/23 23:22> I was consulted by the DENY, and we discussed the complexity of the problems being addressed. I approved the treatment and management plan for this patient's care in the emergency department, thus performing a substantive portion of the medical decision making. Matias Ward MD, NOEL, FACEP Discharge Plan Disposition Patient Disposition: Home, Self-Care Condition: Good Prescriptions Prescriptions: New ondansetron 4 mg tablet,disintegrating 4 mg PO Q6H PRN (Reason: nausea and vomiting) Qty: 10 0RF amoxicillin-pot clavulanate 875-125 mg tablet 1 tab PO BID Qty: 20 0RF azithromycin 500 mg tablet See Rx Instructions .ROUTE .COMPLEX Qty: 9 0RF Rx Instructions: For 250 mg dose pack: take 500 mg today (day 1), then 250 mg for 4 days (days 2-5) No Action lisinopril 2.5 mg tablet 2.5 mg PO HS nitroglycerin 0.4 mg tablet, sublingual 0.4 mg SUBLINGUAL Q5MINP PRN (Reason: Chest Pain) Rx Instructions: do not exceed 3 doses per episode sucralfate [Carafate] 1 gram tablet 1 g PO ACHS potassium chloride 10 mEq tablet extended release 10 meq PO DAILY fluticasone propionate 50 mcg/actuation spray,suspension 2 spray INTRANASAL DAILY duloxetine 60 mg capsule,delayed release(DR/EC) 60 mg PO DAILY aspirin [Adult Low Dose Aspirin] 81 mg tablet,delayed release (DR/EC) 81 mg PO DAILY donepezil 10 mg tablet 10 mg PO DAILY gabapentin 800 mg tablet 800 mg PO TID allopurinol 300 mg tablet 300 mg PO DAILY clopidogrel 75 MG tablet 75 mg PO DAILY levothyroxine 125 MCG tablet 125 mcg PO DAILY hydroxychloroquine 200 MG tablet 400 mg PO DAILY rosuvastatin 20 MG tablet 20 mg PO HS furosemide 80 mg tablet 40 mg PO DAILY Qty: 30 0RF mupirocin 2 % ointment 1 applic topical TID 7 Days Qty: 15 0RF ascorbic acid (vitamin C) [Vitamin C] 500 mg tablet 500 mg PO DAILY colestipol 1 gram tablet 1 g PO BID Qty: 60 1RF hydrocodone-acetaminophen 5-325 mg tablet 1 tab PO TIDP PRN (Reason: mild to moderate pain) Patient Comments: TAKE 1 TABLET BY MOUTH EVERY 8 HOURS colchicine 0.6 mg tablet 0.6 mg PO BID metoprolol succinate 25 mg tablet extended release 24 hr 12.5 mg PO DAILY valacyclovir 500 mg tablet 500 mg PO DAILY Patient Comments: TAKE 1 TABLET BY MOUTH EVERY DAY tamsulosin 0.4 mg capsule 0.8 mg PO HS insulin glargine [Lantus Solostar U-100 Insulin] 100 unit/mL (3 mL) insulin pen 30 unit SQ HS tizanidine 4 mg tablet 4 mg PO BID erythromycin 5 mg/gram (0.5 %) ointment 1 applic ophthalmic (eye) HS Rx Instructions: Apply a small amount into both eyes at bedtime diclofenac sodium 1 % gel 1 ea TOPICAL QIDP PRN (Reason: Pain) pantoprazole 40 mg Tablet,Delayed Release (Dr/Ec) 40 mg PO DAILY Qty: 30 0RF Referrals Follow up/Referrals: Elijah Serra DO [Primary Care Provider] - See instructions Activity Restrictions/Add. Instructions Additional Instructions/Restrictions: Follow-up with your PCP within 48 hours for recheck. Return to ER for any worsening signs or symptoms as needed. Clinical Impressions Clinical Impression: Pneumonia of both lower lobes, Nausea & vomiting Instructions Patient Instructions: DI for Pneumonia -- Adult Discharge ED Provider: Matias Ward General Adult HPI General Chief complaint: Urogenital-Male Stated complaint: Cough,body aches,low temp,chivering Time Seen by Provider: 08/29/23 16:09 History of Present Illness HPI narrative: Patient presents for evaluation of intractable nausea. Patient gives a history of approximately a week of cough fever malaise however this morning he began vomiting and has been unable to keep down any medications food or liquids. He does report some abdominal pain that is nonfocal. He denies chest pain chills hemoptysis hematochezia melena hematemesis hematuria. Last solid bowel movement was yesterday. Related Data Home Medications Medication Instructions Recorded Confirmed clopidogrel 75 mg tablet 75 mg PO DAILY platelet inhibitor 04/26/19 05/12/23 hydroxychloroquine 200 mg tablet 400 mg PO DAILY Arthritis 04/26/19 08/08/23 levothyroxine 125 mcg tablet 125 mcg PO DAILY Thyroid 04/26/19 08/08/23 rosuvastatin 20 mg tablet 20 mg PO HS Cholesterol 04/26/19 08/08/23 lisinopril 2.5 mg tablet 2.5 mg PO HS High blood pressure 02/04/20 08/08/23 nitroglycerin 0.4 mg sublingual 0.4 mg sublingual Q5MINP PRN Chest 02/04/20 08/08/23 tablet Pain sucralfate 1 gram tablet (Carafate) 1 g PO ACHS acid reflux 02/04/20 08/08/23 duloxetine 60 mg capsule,delayed 60 mg PO DAILY Mood 04/15/20 08/08/23 release fluticasone propionate 50 2 spray intranasal DAILY Allergy 04/15/20 08/08/23 mcg/actuation nasal symptoms spray,suspension potassium chloride 10 mEq 10 meq PO DAILY Supplement 04/15/20 08/08/23 tablet,extended release aspirin 81 mg tablet,delayed 81 mg PO DAILY Heart disease 10/20/21 05/12/23 release (Adult Low Dose Aspirin) hydrocodone 5 mg-acetaminophen 325 1 tab PO TIDP PRN mild to moderate 10/30/21 08/08/23 mg tablet pain colchicine 0.6 mg tablet 0.6 mg PO BID gout 10/31/21 08/08/23 metoprolol succinate 25 mg 12.5 mg PO DAILY High blood 10/31/21 08/08/23 tablet,extended release 24 hr pressure insulin glargine 100 unit/mL (3 30 unit SQ HS Diabetes 12/06/21 08/08/23 mL) subcutaneous pen (Lantus Solostar U-100 Insulin) tamsulosin 0.4 mg capsule 0.8 mg PO HS prostate 12/06/21 08/08/23 valacyclovir 500 mg tablet 500 mg PO DAILY anti-viral 12/06/21 08/08/23 allopurinol 300 mg tablet 300 mg PO DAILY Gout 05/18/22 08/08/23 donepezil 10 mg tablet 10 mg PO DAILY Memory 05/18/22 08/08/23 gabapentin 800 mg tablet 800 mg PO TID Pain 05/18/22 08/08/23 diclofenac sodium 1 % topical gel 1 ea topical QIDP PRN Pain 10/20/22 08/08/23 erythromycin 5 mg/gram (0.5 %) eye 1 applic ophthalmic (eye) HS 10/20/22 08/08/23 ointment Infection tizanidine 4 mg tablet 4 mg PO BID Muscle Spasm 10/20/22 08/08/23 ascorbic acid (vitamin C) 500 mg 500 mg PO DAILY 08/08/23 08/08/23 tablet (Vitamin C) Previous Rx's Medication Instructions Recorded pantoprazole 40 mg tablet,delayed 40 mg PO DAILY #30 tabs 10/23/22 release furosemide 80 mg tablet 40 mg (1/2 x 80 mg) PO DAILY Fluid 11/16/22 #30 tabs mupirocin 2 % topical ointment 1 applic topical TID 7 days #15 02/14/23 grams colestipol 1 gram tablet 1 g PO BID Diarrhea #60 tabs 08/10/23 amoxicillin 875 mg-potassium 1 tab PO BID #20 tabs 08/29/23 clavulanate 125 mg tablet azithromycin 500 mg tablet See Rx Instructions PO .COMPLEX #9 08/29/23 tabs ondansetron 4 mg disintegrating 4 mg PO Q6H PRN nausea and 08/29/23 tablet vomiting #10 tabs Allergies Allergy/AdvReac Type Severity Reaction Status Date / Time iodine [IODINE] Allergy Mild Verified 08/10/23 09:17 adhesive tape Allergy Verified 08/10/23 09:17 [facility] Disclaimer: The information contained in this section may have been updated after the patient was seen, as this information can be updated by other users. Medical History Bronchiectasis type 1 Recurrent bacterial pneumonia Staphylococcal pneumonia Recurrent pneumonia Diastolic CHF, acute Bilateral lower extremity edema Pneumonia COVID-19 CAD (coronary artery disease) GERD (gastroesophageal reflux disease) Hypothyroidism Hyperlipidemia Hypertension Insulin pump fitting or adjustment Fall Side effects of vaccination Type 1 diabetes mellitus with diabetic polyneuropathy Traumatic ecchymosis of ankle Cellulitis Laceration of lower leg Surgical History History of coronary artery bypass graft H/O thyroidectomy Total knee replacement status H/O bilateral hip replacements History of total right knee replacement (TKR) Family History Mother Coronary artery disease Father COVID-19 Social History (Updated 08/10/23 @ 10:09 by MARIA GUADALUPE Gonzalez Smoking Status: Never smoker alcohol intake: never substance use type: denies use current occupational status: employed Travel in the last 8 weeks: None household members: spouse housing: house lives independently: Yes marital status: number of children: 5 education level: high school service: No care home: No current occupation: [employer] diet: diabetic marianna/mormon: Roman Catholic ROS Obtained: Yes Systems reviewed as appropriate & no additional complaints except as documented Physical Exam General General appearance: alert and in no apparent distress Head Head exam: atraumatic and normal inspection Eye Eye exam: Present normal appearance, PERRL and EOMI ENT ENT exam: Present normal exam, normal oropharynx and mucous membranes moist Neck Neck exam: Present normal inspection and full ROM Chest Chest inspection: Present normal inspection and symmetric chest wall rise Respiratory Respiratory exam: Present normal lung sounds bilaterally and accessory muscle use Cardiovascular Cardiovascular exam: Present regular rate, normal rhythm and normal heart sounds Abdominal Exam Abdominal exam: Present soft, tenderness (Mildly diffusely tender to palpation) and normal bowel sounds; Absent guarding, rebound or rigidity Extremities Exam Extremities exam: Present normal inspection and full ROM Back Exam Back exam: Present normal inspection and full ROM; Absent tenderness Neurological Exam Neurological exam: Present alert, oriented X3 and CN II-XII intact Psychiatric Psychiatric exam: Present normal affect and normal mood Skin Skin exam: Present warm, dry and normal color Medical Decision Making Medical Records Medical records reviewed: Yes I reviewed the patient's medical records. Herman Inquiry Pt receiving controlled substance: No Vital Signs: 08/29/23 16:05 08/29/23 17:15 08/29/23 17:31 Temperature 98.3 F Temperature Source Oral Pulse Rate 78 71 Pulse Rate [Left Radial] 84 Respiratory Rate 16 Blood Pressure 140/67 142/78 H Blood Pressure [Right Arm] 145/68 H Blood Pressure Mean 99 Blood Pressure Mean [Right Arm] 93 Blood Pressure Source [Right Arm] Automatic Cuff Blood Pressure Position [Right Arm] Sitting 02 Sat by Pulse Oximetry 97 97 97 Oxygen Delivery Method Room Air Room Air Room Air 08/29/23 18:01 08/29/23 19:01 08/29/23 19:30 Temperature Temperature Source Pulse Rate 65 78 82 Pulse Rate [Left Radial] Respiratory Rate Blood Pressure 168/82 H 127/76 146/88 H Blood Pressure [Right Arm] Blood Pressure Mean 93 Blood Pressure Mean [Right Arm] Blood Pressure Source [Right Arm] Blood Pressure Position [Right Arm] 02 Sat by Pulse Oximetry 98 98 98 Oxygen Delivery Method Room Air 08/29/23 20:00 Temperature Temperature Source Pulse Rate 89 Pulse Rate [Left Radial] Respiratory Rate Blood Pressure 110/74 Blood Pressure [Right Arm] Blood Pressure Mean Blood Pressure Mean [Right Arm] Blood Pressure Source [Right Arm] Blood Pressure Position [Right Arm] 02 Sat by Pulse Oximetry 97 Oxygen Delivery Method Lab Data Lab results reviewed: Yes I reviewed the patient's lab results. Lab Results 08/29/23 16:25: WBC 5.0, RBC 4.33 L, Hgb 14.0 L, Hct 38.8 L, MCV 89.4, MCH 32.2 H, MCHC 36.0 H, RDW 17.1, Plt Count 150, MPV 8.0, Neut % (Auto) 36.5 L, Lymph % (Auto) 45.1, Stark % (Auto) 4.2, Eos % (Auto) 13.1 H, Baso % (Auto) 1.2, Neut # (Auto) 1.8, Lymph # (Auto) 2.3, Stark # (Auto) 0.2, Eos # (Auto) 0.7 H, Baso # (Auto) 0.1, Sodium 141, Potassium 4.0, Chloride 105, Carbon Dioxide 26, Anion Gap 14.0, BUN 14, Creatinine 1.10, Estimated Creat Clear 79, Estimated GFR 66, Est GFR ( Amer) 80, Glucose 238 H, Calcium 10.1, Magnesium 1.5 L, Total Bilirubin 1.1, AST 39, ALT 33, Alkaline Phosphatase 151 H, Total Protein 7.5, Albumin 4.2, Globulin 3.3 H, Albumin/Globulin Ratio 1.3, Acetone Level None detected, SARS-CoV-2 (PCR) Not detected, Influenza A Untype (PCR) Not detected, Influenza Type B (PCR) Not detected 08/29/23 16:40: VBG pH 7.58 H, VBG pCO2 26.2 L, VBG pO2 46.0 H, VBG HCO3 23.9, VBG Total CO2 24.7, VBG O2 Saturation 88.2 H, VBG Base Excess 2.0, VBG Lactic Acid 4.3 H 08/29/23 18:00: Urine Color Yellow, Urine Appearance Clear, Urine pH 8.0, Ur Specific [place] 1.025, Urine Protein 1+, Urine Glucose (UA) Negative, Urine Ketones 1+, Urine Blood Negative, Urine Nitrate Negative, Urine Bilirubin Negative, Urine Urobilinogen 0.2, Ur Leukocyte Esterase Negative, Urine RBC None, Urine WBC None, Ur Squamous Epith Cells Occasional, Urine Bacteria Trace 08/29/23 16:25 08/29/23 16:25 Orders (Tests/Meds): ED MEDICATIONS Discontinued Medications Generic Name Dose Route Start Last Admin Trade Name Ilyaq PRN Reason Stop Dose Admin Acetaminophen 1,000 mg 08/29/23 17:02 08/29/23 17:17 Acetaminophen 1,000mg/100ml Vial IV 08/29/23 17:03 1,000 mg ONCE ONE Administration Amoxicillin/Clavulanate Potassium 1 each 08/29/23 20:06 08/29/23 20:21 Amoxicillin/Clavulanate Potassium 875/125mg Tablet PO 08/29/23 20:07 1 each ONCE ONE Administration Azithromycin 500 mg 08/29/23 20:06 08/29/23 20:21 Azithromycin 250mg Tablet PO 08/29/23 20:07 500 mg ONCE ONE Administration Lactated Ringer's 1,000 mls @ 999 mls/hr 08/29/23 17:02 08/29/23 17:18 Lactated Ringer's 1000 Ml Bag IV 08/29/23 18:02 999 mls/hr .Q1H1M ONE Administration Magnesium Sulfate 2 gm in 50 mls @ 50 mls/hr 08/29/23 18:09 08/29/23 18:33 Magnesium Sulfate 2gm/50ml Premix IV 08/29/23 19:08 50 mls/hr ONCE ONE Administration Lactated Ringer's 1,000 mls @ 999 mls/hr 08/29/23 18:36 08/29/23 18:39 Lactated Ringer's 1000 Ml Bag IV 08/29/23 19:36 999 mls/hr .Q1H1M ONE Administration Ketorolac Tromethamine 15 mg 08/29/23 17:02 08/29/23 17:17 Ketorolac 30mg/Ml Vial IV 08/29/23 17:03 15 mg ONCE ONE Administration Ondansetron HCl 4 mg 08/29/23 16:21 08/29/23 16:23 Ondansetron 4mg Odt SL 08/29/23 16:22 4 mg ONCE ONE Administration Ondansetron HCl 4 mg 08/29/23 17:02 08/29/23 17:17 Ondansetron 4mg/2ml Vial IV 08/29/23 17:03 4 mg ONCE ONE Administration Promethazine HCl 25 mg 08/29/23 18:37 08/29/23 18:54 Promethazine Hcl 25mg/Ml 1ml Vial IV 08/29/23 18:38 25 mg ONCE ONE Administration Sodium Chloride 25 ml 08/29/23 18:37 08/29/23 18:54 Sodium Chloride 0.9% 25ml Bag IV 08/29/23 18:38 25 ml ONCE ONE Administration ORDERS Category Date Time Status CT abdomen pelvis wo con Stat Cat Scan 08/29/23 18:36 Completed Chest XR -- portable [XR chest portable] Stat Exams 08/29/23 16:40 Completed Acetone, Serum (Rapid) Stat Lab 08/29/23 16:25 Completed CBC w/Auto Diff [Complete Blood Count Auto Diff] Stat Lab 08/29/23 16:25 Completed CMP [Comprehensive Metabolic Panel] Stat Lab 08/29/23 16:25 Completed Full Resp Panel w/COVID (H) Routine Lab 08/29/23 18:49 Received Lactic Acid Follow Up (RFLX 1) Stat Lab 08/29/23 20:52 Ordered Magnesium Stat Lab 08/29/23 16:25 Completed Rapid PCR Covid and Flu A/B Stat Lab 08/29/23 16:25 Completed UA [Urinalysis and Microscopic] Stat Lab 08/29/23 18:00 Completed Blood Culture Stat Micro 08/29/23 17:20 Received VBG [Venous Blood Gas] Stat RT 08/29/23 16:40 Completed Medical Decision Narrative: In summary patient is a 67-year-old male who presents to the emergency department for evaluation of cough intractable nausea vomiting and abdominal pain. Patient is hemodynamically stable upon arrival, afebrile. Physical exam is remarkable only for mild and nonfocal abdominal tenderness to palpation without rebound or guarding or rigidity. Bowel sounds are normal active. Patient has tachypnea without accessory muscle use and clear breath sounds in all 4 swan. Differential diagnosis includes pneumonia, bowel obstruction, gastroenteritis, acute cholecystitis versus cholelithiasis versus pancreatitis versus constipation etc. Initial workup will be conducted with hematologic labs plain film chest x-ray twelve-lead EKG CT scan abdomen pelvis urinalysis. Initial interventions include crystalloid bolus Tylenol Toradol Zofran. Initial workup reviewed by me showed that he had hyperglycemia without an anion gap elevation normal CO2 normal white count with no shift negative ketones in his urine no evidence of infection in his urine negative acetone in his blood and his plain film chest x-ray via my informal interpretation shows no acute processes. Upon repeat evaluation patient had only improved minimally and still reported abdominal pain and nausea. Given this I ordered CT scan of abdomen pelvis which revealed bibasilar left greater than right consolidations worrisome for pneumonia versus atelectasis however no other acute processes seen in the abdomen. In the interval I gave the patient Phenergan which improved his nausea significantly to the point where he was able to ambulate. Given this patient received first dose of antibiotics in the emergency department of Augmentin and azithromycin with prescription sent to his pharmacy and he is appropriate for discharge with close follow-up with his PCP. Critical Care Critical Care Time Critical Care Time: No
--- NOTE | 2023-08-29 16:10 | PC.NURSE ---
triaged pt to the lobby at this time. pt offered straight stick labs and a resp. swab while he waits. pt complained of nausea but hasnt vomited. Timmy HARRINGTON notified and ordered [facility] ordered for pt until he could get a room.
[2023-08-29] MEDS: ONDANSETRON 4MG ODT 4 MG SL (16:23)
--- NOTE | 2023-08-29 16:40 | XR_ITS ---
PROCEDURE INFORMATION: Exam: XR Chest Exam date and time: 08/29/2023 4:56 PM Age: 67 years old Clinical indication: Cough and fever TECHNIQUE: Imaging protocol: Radiologic exam of the chest. Views: 1 view. COMPARISON: CT CHEST WO CON 12/06/2021 7:57 AM FINDINGS: Lungs: Lung volumes are mildly diminished. Mild stable bibasilar streaky opacities suggest parenchymal scarring. The lungs appear otherwise clear. No focal areas of consolidation. Pleural spaces: Minor blunting of both costophrenic angles is stable likely reflecting pleural scarring. Negative for pneumothorax. Heart/Mediastinum: Cardiac silhouette and pulmonary vasculature are within range of normal. The aorta demonstrates mild atherosclerotic calcification. Postoperative changes about the mediastinum. Bones/joints: There is no evidence of acute fracture. IMPRESSION: Negative for an acute cardiopulmonary abnormality.
[2023-08-29 16:49] LABS: Coronavirus 19, PCR Not Detected (NotDetected); Influenza A, PCR Not Detected (NotDetected); Influenza B, PCR Not Detected (NotDetected)
[2023-08-29 16:52] LABS: VBG HCO3 23.9 mmol/L (23-30); VBG Oxygen Saturation 88.2 % (50-70); VBG PCO2 26.2 mmol/L (35-51); VBG Total CO2 24.7 mmol/L (23-27)
[2023-08-29 16:53] LABS: Chloride 105 mmol/L (98-107); Sodium 141 mmol/L (136-145)
[2023-08-29 16:54] LABS: Basophils # 0.1 K/mm3 (0-0.2); Basophils % 1.2 % (0.1-2.0); Eosinophils # 0.7 K/mm3 (0.0-0.4); Eosinophils % 13.1 % (0.1-12.0); Hematocrit 38.8 % (42.0-52.0); Lymphocytes # 2.3 K/mm3 (0.7-4.5); Lymphocytes % 45.1 % (10-50); Mean Corpuscular Hemoglobin 32.2 pg (27.0-31.2); Mean Corpuscular Volume 89.4 fl (80-94); Monocytes # 0.2 K/mm3 (0.1-1.0); Monocytes % 4.2 % (1.7-9.3); Neutrophils # 1.8 K/mm3 (1.8-7.8); Neutrophils % 36.5 % (37.0-80.0); Platelet Count 150 K/mm3 (142-424); Red Blood Count 4.33 M/mm3 (4.60-6.20); Red Cell Distribution Width 17.1 % (11.5-17.5)
[2023-08-29 16:54] LABS: VBG PH 7.58 mmol/L (7.31-7.41)
[2023-08-29 16:55] LABS: Alanine Aminotransferase 33 U/L (12-78); Aspartate Amino Transferase 39 U/L (17-59); Blood Urea Nitrogen 14 mg/dl (9-20); Creatinine Clearance Estimated 79 mL/min (50-200); Estimated Glomerular Filt Rate 66 ml/min (>60); GFR (African American) 80 ML/MIN (>60)
[2023-08-29 16:55] LABS: Lactate Venous 4.3 mmol/L (0.4-2.0)
[2023-08-29 16:56] LABS: Albumin Level 4.2 g/dl (3.5-5.0); Albumin/Globulin Ratio 1.3 (1.1-1.8); Alkaline Phosphatase 151 U/L (38-126); Bilirubin,Total 1.1 mg/dl (0.2-1.3); Calcium 10.1 mg/dl (8.4-10.2); Carbon Dioxide 26 mmol/L (22.0-30.0); Globulin 3.3 g/dL (1.3-3.2); Glucose 238 mg/dl (74-100); Magnesium 1.5 mg/dl (1.6-2.3); Total Protein,Serum 7.5 g/dl (6.3-8.2)
--- NOTE | 2023-08-29 17:00 | PC.NURSE ---
Timmy PA at BS
--- NOTE | 2023-08-29 17:01 | PC.NURSE ---
critical VBG relayed to JUANY Warner. pt brought from lobby into room 4 at this time. provider at bedside.
--- NOTE | 2023-08-29 17:01 | PC.NURSE ---
Rad in room for chest x-ray
[2023-08-29] MEDS: ACETAMINOPHEN 1,000MG/100ML VIAL 1000 MG IV (17:17)
[2023-08-29] MEDS: ONDANSETRON 4MG/2ML VIAL 4 MG IV (17:17)
[2023-08-29] MEDS: KETOROLAC 30MG/ML VIAL 15 MG IV (17:17)
[2023-08-29] MEDS: LACTATED RINGERS 1000ML 1,000 ML 999 ML IV ×2 (17:18→18:39)
[2023-08-29 17:37] LABS: Acetone, Serum (Rapid) None Detected (None Detect)
[2023-08-29 18:02] LABS: Microscopic, Urine URINE MICROSCOPIC (MICROSCOPIC)
[2023-08-29 18:06] LABS: Appearance,Urine CLEAR (Clear); Bilirubin,Urine Negative (Negative); Blood, Urine Negative (Negative); Color,Urine YELLOW (Yellow); Glucose,Urine (UA) Negative (Negative); Ketones,Urine 1+ (Negative); Leukocyte Esterase,Urine Negative (Negative); Nitrate,Urine Negative (Negative); Protein,Urine 1+ (Negative); Specific Gravity, Urine 1.025 (1.005-1.030); Urobilinogen,Urine 0.2 EU/dl (0.2)
[2023-08-29 18:13] LABS: Bacteria,Urine Trace /lpf; Squamous Epithelial Cell,Urine Occasional #/hpf (0-5)
[2023-08-29] MEDS: MAGNESIUM SULFATE IN WATER 2 GM/50 ML PIGGYBACK IV (18:33)
--- NOTE | 2023-08-29 18:36 | CT_ITS ---
PROCEDURE INFORMATION: Exam: CT Abdomen And Pelvis Without Contrast Exam date and time: 08/29/2023 6:49 PM Age: 67 years old Clinical indication: Nausea; Abdominal pain; Additional info: Intractable nausea abdominal pain TECHNIQUE: Imaging protocol: Computed tomography of the abdomen and pelvis without contrast. Radiation optimization: All CT scans at this facility use at least one of these dose optimization techniques: automated exposure control; mA and/or kV adjustment per patient size (includes targeted exams where dose is matched to clinical indication); or iterative reconstruction. COMPARISON: CT ABDOMEN PELVIS WO CON 01/24/2021 1:15 PM FINDINGS: Lungs: There is mild increase in bibasilar linear opacities since prior exam which may reflect atelectasis or progression of parenchymal scarring. Pleural spaces: There are no pleural effusions. Heart: The heart is borderline enlarged. There is no evidence of pericardial fluid collections. Coronary arteries: There is severe atherosclerotic calcification of the coronary arteries. Diaphragm: There is mild elevation of the right hemidiaphragm. Liver: Evaluation of the liver is limited without contrast but the liver is within normal limits for this noncontrast study. Gallbladder and biliary ducts: There has been a cholecystectomy. There is a mild, expected degree of common bile duct dilation. Pancreas: Noncontrast images of the pancreas are within range of normal. Spleen: The spleen is normal. Adrenal glands: The adrenal glands are normal. Kidneys and ureters: There are a few tiny nonobstructing bilateral renal collecting system calcifications. There is a 3.6 cm simple cyst in the left kidney. Evaluation of the distal ureters is limited due to streak artifact. Small distal ureteral calculi cannot be excluded. No ureterectasis . Minor stable fullness to the right renal pelvis likely reflects an extrarenal pelvis. Stomach and bowel: There is a periampullary duodenal diverticulum measuring approximately 38 mm. No evidence of diverticulitis. The remainder of the duodenum is within range of normal. The colon is not well seen in the rectosigmoid region due to streak artifact. Lack of gastrointestinal contrast limits evaluation of bowel. Unopacified loops of small bowel within range of normal. Appendix: No evidence of appendicitis. Intraperitoneal space: Exclusion of subtle pelvic free fluid is limited due to streak artifact. No large volume free fluid is seen. No evidence of intraperitoneal free air. Vasculature: The aorta and iliac arteries demonstrate moderate atherosclerotic calcification. Atherosclerotic vascular calcifications involve the origin of the celiac and SMA arteries as well as bilateral renal arteries. Stenosis cannot be excluded without intravenous contrast. Lymph nodes: There is no evidence of pathologic adenopathy. Urinary bladder: The bladder is not well seen due to streak artifact. Reproductive: The prostate is not well seen due to streak artifact. Bones/joints: Sternal suture wires are in place suggesting prior median sternotomy and postoperative changes are present involving the mediastinum. There are bilateral hip arthroplasties in near anatomic alignment without apparent complication. Prominent streak artifact limits evaluation of adjacent structures, particularly in the pelvis. There are mild degenerative changes of the symphyseal pubic joint. There are mild degenerative changes of the sacroiliac joints. The thoracolumbar spine demonstrates moderate degenerative changes at multiple levels. There is grade 1 anterior spondylolisthesis of L4 on L5. As seen, no acute bony fractures. There is a chronic rib fracture involving the posterior right 11th rib. Soft tissues: Injection granulomata are present in the posterior lower back and gluteal regions bilaterally. No significant soft tissue edema. Other findings: Evaluation is limited by the lack of intravenous contrast. IMPRESSION: 1. Limited study due to prominent streak artifact from bilateral hip arthroplasties. 2. Several nonobstructing small bilateral renal collecting system calcifications. 3. 3.8 cm duodenal diverticula without evidence of diverticulitis, increased from prior exam. COMMENTS: Consistent with the [employer]'s Incidental Findings Committee white paper (J Am Rohan Radiol 2018): Any incidental renal lesion less than 1 cm or classified as too small to characterize, or any incidental cystic renal lesion characterized as simple-appearing, is likely benign. No follow-up imaging is recommended for these lesions per consensus recommendations based on imaging criteria.
--- NOTE | 2023-08-29 18:36 | PC.NURSE ---
pt wished to ambulate around the room due to having chronic back pain; we moved a recliner chair into patients room for comfort. Warm blankets given, call light within reach. family at BS. no other needs at this time
--- NOTE | 2023-08-29 18:41 | PC.NURSE ---
pt out of room with Rad for CT
[2023-08-29] MEDS: SODIUM CHLORIDE 0.9% 25ML BAG 25 ML IV (18:54)
[2023-08-29] MEDS: PROMETHAZINE HCL 25MG/ML 1ML VIAL 25 MG IV (18:54)
--- NOTE | 2023-08-29 18:56 | PC.NURSE ---
talked to lab, the are using the rapid covid swab for the full resp panel
[2023-08-29] MEDS: AZITHROMYCIN 250MG TABLET 500 MG PO (20:21)
[2023-08-29] MEDS: AMOXICILLIN/CLAVULANATE POTASSIUM 875/125MG TABLET 1 EACH PO (20:21)
[2023-08-29 20:52] LABS: Reflex Lactic Add Lactic Reflex
[2023-08-29 20:54] LABS: Adenovirus,PCR Not Detected (NotDetected); Bordetella Pertussis Not Detected (NotDetected); Chlamydophila Pneumoniae, PCR Not Detected (NotDetected); Coronavirus 19, PCR Not Detected (NotDetected); Coronavirus 229E Not Detected (NotDetected); Coronavirus NL63 Not Detected (NotDetected); Coronavirus OC43 Not Detected (NotDetected); Coronovirus HKU1,PCR Not Detected (NotDetected); Human Metapneumovirus Not Detected (NotDetected); Influenza A, PCR Not Detected (NotDetected); Influenza AH1, 2009 Not Detected (NotDetected); Influenza AH1, PCR Not Detected (NotDetected); Influenza AH3,PCR Not Detected (NotDetected); Influenza B, PCR Not Detected (NotDetected); Mycoplasma Pneumoniae, PCR Not Detected (NotDetected); Parainfluenza 1, PCR Not Detected (NotDetected); Parainfluenza 2, PCR Not Detected (NotDetected); Parainfluenza 3, PCR Not Detected (NotDetected); Parainfluenza 4, PCR Not Detected (NotDetected); Respiratory Syncytial Virus Not Detected (NotDetected); Rhinovirus/Enterovirus Not Detected (NotDetected)
--- NOTE | 2023-08-29 21:01 | PC.NURSE ---
patient is 97% on room air after being of oxygen and ambulating around patient room with his walker
--- NOTE | 2023-08-31 18:45 | PC.NURSE ---
PRELIMINARY BLOOD CULTURE RECEIVED, RESULTS DISCUSSED WITH DR. SMITH. DR. SMITH WILL READ PT'S ED VISIT AND FOLLOW-UP. NO NEW ORDERS AT THIS TIME
--- NOTE | 2023-09-01 12:49 | PC.NURSE ---
DISCUSSED URINE CULTURE WITH DR MOREJON, WOULD LIKE TO FOLLOW-UP WITH PT, ATTEMPTED TO CALL PATIENT AND . LEFT MESSAGE
== END 2023-08-29 21:27 | disposition home or self-care (01) ==
PROVIDERS: Physician Assistant; Emergency Provider Student in an Organized Health Care Education/Training Program; PCP Family Medicine
DX: J18.9 Pneumonia, unspecified organism (principal); B96.89 Other specified bacterial agents as the cause of diseases classified elsewhere; R11.2 Nausea with vomiting, unspecified; R50.9 Fever, unspecified; R05.9 Cough, unspecified; I11.0 Hypertensive heart disease with heart failure; I50.30 Unspecified diastolic (congestive) heart failure; E03.9 Hypothyroidism, unspecified; E10.40 Type 1 diabetes mellitus with diabetic neuropathy, unspecified; K21.9 Gastro-esophageal reflux disease without esophagitis; E78.5 Hyperlipidemia, unspecified; I25.10 Atherosclerotic heart disease of native coronary artery without angina pectoris; Z95.1 Presence of aortocoronary bypass graft; Z79.4 Long term (current) use of insulin
CPT/HCPCS: 71045; 74176; 80053; 81001; 82009; 82803; 83735; 85025; 87040; 87077; 87581; 87632; 87635; 87636; 87798; 96361; 96365; 96375; 99285; J0131; J1885; J2405; J2550; J3475; J7120

== ENCOUNTER 2023-09-28 10:46 | Outpatient (CLI) | payer MEDICARE, OTHER, SELFPAY ==
--- NOTE | 2023-09-28 10:51 | FL_ITS ---
FINAL REPORT CLINICAL HISTORY: dysphagia 29.40 mGy 7.10 fluoro time FINDINGS: MODIFIED BARIUM SWALLOW History: Dysphagia. FINDINGS: Fluoroscopy was provided for the speech pathologist to evaluate the swallowing mechanism. The patient was given several different consistencies of barium while the swallow was visualized fluoroscopically. The report of the speech pathologist should be consulted prior to making dietary decisions. Fluoro time: 7 minutes 10 seconds Radiation exposure in Reference air Kerma: 29.40 mGy. IMPRESSION: Modified barium swallow under fluoroscopic guidance. Please see the report of the speech pathologist for more detail. Films reviewed, interpreted and dictated by Dr. Chowdhury. Transcribed by Pradip Nazario PA-C. Reviewed, Interpreted and Dictated by Palomo Chowdhury MD Transcribed by JUANY Novak Authenticated and [facility]
--- NOTE | 2023-09-28 14:50 | HMH.SLMBS2 ---
Speech & Language Evaluation Speech/Language Mod Barium Swallow Start: 09/28/23 14:27 Freq: once Status: Complete Protocol: Document 09/28/23 14:27 RYNE (Rec: 09/28/23 14:48 RYNE [id number]) Co-signed By ST [facility] General Information General Current Food Consistancy Regular,Thin Liquids Dentition Upper & Lower Dentures Oxygen Status Room Air Facial Symmetry Symmetrical Patient Orientation Person,Place,Time,Situation Ability to Follow Directions Excellent Communication Ability No Impairment MBS Recommendations Diet Dietary Recommendations Regular,Thin Liquids Treatment/Strategies Strategy/Precaution Recommend Sitting Upright (90 deg),Chin Tuck,Double Swallow,Small Bites and Sips,Alternate Liquids/Solids Mod Barium Swallow Impressions Summary and Impressions Oral Phase Impression Mild Impairment Oral Phase Summary Mild to moderate impairment of the oral phase of swallow. Pt exhibited mild residue on all consistencies trialed, which were cleared with multiple swallows. Pt exhibited reduced /prolonged mastication and manipulation of bolus '2 fatigue on mechanical soft and regular food trials. Lingual movement was WFL and no scattered loss or pooling of the bolus was observed on any consistencies trialed. Pharyngeal Phase Impression Moderate Impairment Pharyngeal Phase Summary Moderate impairment of the pharyngeal phase of swallow. Trace aspiration observed on thin liquids with open cup and penetration observed on thin liquids with open cup and pudding trials. Pt exhibited moderate diffuse residue in the oropharynx on all consistencies trialed. Residue was cleared with chin tuck, multiple swallows, throat clear, and effortful swallow. Reduced base of tongue retraction and reduced hyolaryngeal excursion and elevation exhibited resulting in inadequate epiglottic coverage on all consistencies trialed. Inadequate UES opening exhibited on all consistencies trialed. Speech/Language MBS Assessment/Goals/Plan Assessment Date of Evaluation: 09/28/23 Evaluation Type Initial Certification Assessment/Problems dysphagia per MD order Does Patient Qualify for Service No Qualify/Failure Comment Based on clinical observations made throughout the instrumental assessment (MBSS) and pt interview, further skilled speech therapy services are not warranted at this time d/t adequate compensatory strategies for safe swallow function Recommendations PHYSICIAN CERTIFICATION: The specified therapy services are required, authorized, and reviewed every 30 days. Diet Recommendations Normal Liquid Type Recommendations Normal/Thin SL Swallow Guidelines Alt bite w/sip thru meal, Standard Aspiration Prec.,Eat at slow rate,Oral Care Education Dysphagia Swallow Precautions/Strategies Sitting Upright (90 deg),Chin Tuck,Double Swallow, Supraglottic Swallow,Small Bites and Sips,Alternate Liquids/Solids Plan Pt/Guardian verbally ack understanding Yes of dx/prognosis/goals G -code Required No Education Instructions provided COKE INSPECTOR discusses clinical observations made throughout the instrumental assessment, aspiration precautions/ compensatory strategies, and diet recommendations with pt who expressed understanding. Pt/Caregiver able to recall information Able to recall/restate Reinforcement needed No Mod Barium Swallow Setup Exam Setup Radiologist Darwin Thompson Level of Consciousness Awake,Alert,Appropriate, Follows Commands Mod Barium Swallow-Lat View Textures Lateral View Food Presentation Thin Liquid via Cup,Thin Liquid via Straw,Pureed Food- Thick,Mech. Soft Food- Regular ,Barium Tablet,Regular Food, Pudding Comment All bolus presentations trialed x2 to asses for consistency and fatigue. Oral Phase Labial Closure No Impairment (WFL) Bolus Formation Pooling L/R No Impairment (WFL) Bolus Formation under Tongue No Impairment (WFL) Bolus Formation Scattered Loss No Impairment (WFL) Mastication Rotary Chew Mild Impairment Mastication Munching Mild Impairment Mastication Lateralization Mild Impairment Lingual Movement No Impairment (WFL) Residue Clearing Mild Impairment Pharyngeal Phase A/P Lingual Propulsion Spills No Impairment (WFL) Swallow Response Delay No Impairment (WFL) Base of Tongue Moderate Impairment Epiglottic Coverage Moderate Impairment Laryngeal Elevation Moderate Impairment Vallecular Retention Clearing Moderate Impairment Pharyn. Wall Residue Clearing Moderate Impairment Piriform Sinus Retention Moderate Impairment Aspiration? Yes Degree of Aspiration Small When aspirated During the swallow Consistencies Aspirated Thin liquid via open cup and pudding Silent aspiration? No Mod Barium Swallow-AP View Performed Mod Barium Swallow A/P View Test Not Applicable/Performed PHYSICIAN CERTIFICATION: I certify the specified therapy services for Obdulio Gold are required, authorized, and reviewed every 30 days.
== END 2023-09-28 23:59 | disposition home or self-care (01) ==
LOC: RAD 10:47
PROVIDERS: PCP Family Medicine; Visit Provider Family Medicine
DX: Z91.89 Other specified personal risk factors, not elsewhere classified (principal)
CPT/HCPCS: 70371; 92611

== ENCOUNTER 2023-10-17 09:32 | Outpatient (CLI) | payer MEDICARE, OTHER, SELFPAY ==
[2023-10-17 09:42] LABS: Microscopic, Urine URINE MICROSCOPIC (MICROSCOPIC)
[2023-10-17 10:47] LABS: Appearance,Urine CLEAR (Clear); Bilirubin,Urine Negative (Negative); Blood, Urine Negative (Negative); Color,Urine YELLOW (Yellow); Glucose,Urine (UA) 2+ (Negative); Ketones,Urine Negative (Negative); Leukocyte Esterase,Urine Negative (Negative); Nitrate,Urine Negative (Negative); PH,Urine 5.5 (5.0-8.5); Protein,Urine Negative (Negative); Urobilinogen,Urine 0.2 EU/dl (0.2)
[2023-10-17 10:59] LABS: Alanine Aminotransferase 20 U/L (12-78); Albumin Level 3.6 g/dl (3.5-5.0); Albumin/Globulin Ratio 1.3 (1.1-1.8); Alkaline Phosphatase 97 U/L (38-126); Anion Gap 5.3 mEq/L (5-15); Aspartate Amino Transferase 23 U/L (17-59); Bilirubin,Total 0.7 mg/dl (0.2-1.3); Blood Urea Nitrogen 16 mg/dl (9-20); Carbon Dioxide 32 mmol/L (22.0-30.0); Chloride 104 mmol/L (98-107); Estimated Glomerular Filt Rate 74 ml/min (>60); GFR (African American) 90 ML/MIN (>60); Globulin 2.8 g/dL (1.3-3.2); Glucose 295 mg/dl (74-100); Potassium 4.3 mmoL/L (3.5-5.1); Sodium 137 mmol/L (136-145); Total Protein,Serum 6.4 g/dl (6.3-8.2); Uric Acid 2.6 mg/dl (3.5-8.5)
[2023-10-17 11:12] LABS: Intact Parathyroid Hormone 54.5 pg/mL (7.5-53.5)
[2023-10-17 11:16] LABS: 25-OH Vitamin D, Total 48.1 ng/mL (30-100)
[2023-10-17 11:21] LABS: Hyaline Casts,Urine OCC #/lpf (0); RBC,Urine Occasional #/hpf (0-3); Squamous Epithelial Cell,Urine Occasional #/hpf (0-5)
[2023-10-17 11:25] LABS: Eosinophils # 0.8 K/mm3 (0.0-0.4); Eosinophils % 19.2 % (0.1-12.0); Hematocrit 40.1 % (42.0-52.0); Hemoglobin 12.1 g/dL (14.1-18.0); Lymphocytes # 1.2 K/mm3 (0.7-4.5); Lymphocytes % 30.7 % (10-50); Mean Corpuscular HGB Conc 30.1 g/dL (31.8-35.4); Mean Corpuscular Hemoglobin 28.2 pg (27.0-31.2); Mean Corpuscular Volume 93.8 fl (80-94); Mean Platelet Volume 8.1 fl (7.4-10.4); Monocytes # 0.2 K/mm3 (0.1-1.0); Neutrophils # 1.7 K/mm3 (1.8-7.8); Neutrophils % 43.2 % (37.0-80.0); Platelet Count 164 K/mm3 (142-424); Red Blood Count 4.27 M/mm3 (4.60-6.20); Red Cell Distribution Width 16.6 % (11.5-17.5)
[2023-10-17 11:36] LABS: Hemoglobin A1C 7.8 % (4.0-6.0)
== END 2023-10-17 23:59 | disposition home or self-care (01) ==
LOC: LAB 09:35
PROVIDERS: PCP Family Medicine; Visit Provider Internal Medicine Nephrology
DX: I10 Essential (primary) hypertension (principal); E10.9 Type 1 diabetes mellitus without complications; N18.30 Chronic kidney disease, stage 3 unspecified
CPT/HCPCS: 36415; 80053; 81001; 82306; 83036; 83970; 84550; 85025

== ENCOUNTER 2023-11-01 08:59 | Outpatient (CLI) | payer MEDICARE, OTHER, SELFPAY ==
--- NOTE | 2023-11-01 09:06 | CT_ITS ---
FINAL REPORT TECHNIQUE: Axial CT of the abdomen and pelvis, without and with IV contrast. This study was performed with techniques to keep radiation doses as low as reasonably achievable, (ALARA). Individualized dose reduction techniques using automated exposure control or adjustment of mA and/or kV according to the patient's size were employed. CLINICAL HISTORY: Atrophy of the pancreas COMPARISON: 01/24/2021, 08/29/2023 FINDINGS: Abdomen: Lung bases are clear. Liver has an unremarkable CT appearance. The spleen and adrenal glands are unremarkable. There is a 5 mm hypodense lesion in the pancreatic body, was previously 4 mm, of doubtful significance. The pancreatic duct is normal in size. There is mild biliary ductal dilatation present, likely secondary to a previous cholecystectomy. Precontrast imaging shows bilateral nonobstructing renal stones. An upper pole left renal cyst is again identified.. Postcontrast imaging of the kidneys shows no mass or obstruction. No bowel obstruction or fluid collection is seen. Pelvis: Large amount of streak artifact is present overlying the pelvis secondary to bilateral total hip arthroplasties. The appendix is not visualized. Pelvic bowel loops are unremarkable. No fluid collection or adenopathy is seen. IMPRESSION: The minimal enlargement of the benign-appearing low-density lesion in the pancreas. Tiny nonobstructing bilateral renal calcified stones. Reviewed, Interpreted and Dictated by Anajna Ortiz MD Transcribed by Sarita Webb Authenticated and [facility]
[2023-11-01] MEDS: IOPAMIDOL-370 (76%);100ML BOTTLE 75 ML IV (10:03)
[2023-11-01] MEDS: SODIUM CHLORIDE 0.9% 10ML SYR (RAD ONLY) 10 ML IV (10:04)
== END 2023-11-01 23:59 | disposition home or self-care (01) ==
LOC: RAD 09:00
PROVIDERS: PCP Family Medicine; Visit Provider Family Medicine
DX: K86.89 Other specified diseases of pancreas (principal)
CPT/HCPCS: 74178; Q9967

== ENCOUNTER 2023-11-09 12:41 | Emergency (ER) | payer MEDICARE, OTHER, SELFPAY ==
[2023-11-09 12:58] VITALS: BP 158/88; PULSE 84; RESP 20; TEMP 36.8; O2SAT 97; BMI 29.9
[2023-11-09 13:03] LABS: POC Glucose,Bedside 106 (70-110)
--- NOTE | 2023-11-09 13:14 | ED_ITS ---
Discharge Plan Disposition Patient Disposition: Home, Self-Care Condition: Good Prescriptions Prescriptions: New loratadine [Claritin] 10 mg tablet 10 mg PO DAILY 30 Days Qty: 30 0RF Rx Instructions: daily guaifenesin [Mucinex] 600 mg tablet extended release 12hr 600 mg PO BID PRN (Reason: cough) Qty: 20 0RF fluticasone propionate [Flonase Allergy Relief] 50 mcg/actuation spray,clark spension 1 - 2 spray intranasal DAILY Qty: 16 0RF Rx Instructions: administer into each nostril No Action furosemide 40 mg tablet 40 mg PO DAILY hydrocodone-acetaminophen 5-325 mg tablet 5 - 325 tab PO DAILY donepezil 10 mg tablet 10 mg PO DAILY clopidogrel 75 mg tablet 75 mg PO DAILY trazodone 150 mg tablet 150 mg PO DAILY allopurinol 300 mg tablet 300 mg PO DAILY colchicine 0.6 mg tablet 0.6 mg PO DAILY lisinopril 2.5 mg tablet 2.5 mg PO DAILY duloxetine 60 mg capsule,delayed release(DR/EC) 60 mg PO DAILY (DME) pen needle, diabetic [BD Ultra-Fine Martine Pen Needle] 32 gauge x 5/32 needle MISCELLANEOUS Patient Comments: USE 1 NEEDLE FOR INSULIN 4 TIMES DAILY WITH MEALS AND AT BEDTIME Referrals Follow up/Referrals: Elijah Serra DO [Primary Care Provider] - See instructions Activity Restrictions/Add. Instructions Additional Instructions/Restrictions: *Monitor Temp, Over the counter Motrin or Tylenol as directed/as needed Tylenol every 4 hours and Motrin every 6 hours (as long as your family doctor has told you that you can take it) for fever or pain. and straight to ER if unable to lower temp less than 101.0 after medication given *Warm salt water gargles may help to soothe the throat *Throat Lozenges? *Warm fluids like tea with honey may help to soothe the throat? *Sleep elevated *Humidifier/Vaporizer *Flonase 2 sprays in each nostril daily but be aware that it may take 2-3 days before you notice improvement Your throat swab was sent for culture. Those results are typically sent to your primary care. Be sure to follow up in 2-3 days with your family doctor/primary care physician if no improvement so they can review those result and treat if necessary. If you don?t have a primary care doctor, I recommend you get one but in the mean time, you will have to return to a walk in clinic Follow up IMMEDIATELY for new or worsening symptoms or no Noticeable improvement over the next 48-72 hours. 911 for difficulty breathing or sw allowing You were tested for today for Upper Respiratory Panel with COVID19 your test result should be back in the next 24 hours, you may check your results on the [facility] [employer] [facility] Clinical Impressions Clinical Impression: Viral upper respiratory infection Instructions Patient Instructions: Sore Throat, DI for Nasal Congestion Print Language Print Language: Turkish Discharge ED Provider: Shasta Wisdom [facility] [place] HPI General Stated complaint: runny nose cough weak sugar down Mode of Arrival: Ambulatory Source of Information: Patient Time Seen by Provider: 11/09/23 13:15 Description of Symptoms (Recalled from Triage Doc. by RN): C/O LOWER BLOOD SUGAR AT 105, AND RUNNY NOSE, ACHES, SORE THROAT, SLEEP TROUBLES X2 MONTHS HEENT Symptoms (Recalled from RN notes): Yes Resp Symptoms (Recalled from RN notes): Yes Skin Symptoms (Recalled from RN notes): No MS Symptoms (Recalled from RN notes): No Functional Status (Recalled from RN notes): WNL History of Present Illness Provider Complaint: Patient states that he has been having sinus congestion and runny nose on and off for a couple months but today he started with sore throat, body aches and chills States the has a dexcom and it beeped earlier and his blood sugar was 90 so he eat something and so it wouldnt get any lower States he feels like he may have flu or something Related Data Home Medications ?Medication ?Instructions ?Recorded ?Confirmed allopurinol 300 mg tablet 300 mg PO DAILY 11/09/23 11/09/23 clopidogrel 75 mg tablet 75 mg PO DAILY 11/09/23 11/09/23 colchicine 0.6 mg tablet 0.6 mg PO DAILY 11/09/23 11/09/23 donepezil 10 mg tablet 10 mg PO DAILY 11/09/23 11/09/23 duloxetine 60 mg capsule,delayed 60 mg PO DAILY 11/09/23 11/09/23 release furosemide 40 mg tablet 40 mg PO DAILY 11/09/23 11/09/23 hydrocodone 5 mg-acetaminophen 325 5 - 325 tab PO DAILY 11/09/23 11/09/23 mg tablet lisinopril 2.5 mg tablet 2.5 mg PO DAILY 11/09/23 11/09/23 pen needle, diabetic 32 gauge x 11/09/23 11/09/2332 (BD Ultra-Fine Martine Pen Needle) trazodone 150 mg tablet 150 mg PO DAILY 11/09/23 11/09/23 Previous Rx's ?Medication ?Instructions ?Recorded fluticasone propionate 50 1 - 2 spray intranasal DAILY #16 11/09/23 mcg/actuation nasal grams spray,suspension (Flonase Allergy Relief) guaifenesin 600 mg tablet, 600 mg PO BID PRN cough #20 tabs 11/09/23 extended release 12 hr (Mucinex) loratadine 10 mg tablet (Claritin) 10 mg PO DAILY 30 days #30 tabs 11/09/23 Allergies Allergy/AdvReac Type Severity Reaction Status Date / Time iodine [IODINE] Allergy Mild Verified 09/22/23 09:15 adhesive tape Allergy Verified 09/22/23 09:15 Worker's Comp Is this a Worker's Comp case?: No [facility] Disclaimer: The information contained in this section may have been updated after the patient was seen, as this information can be updated by other users. Medical History Bronchiectasis type 1 Recurrent bacterial pneumonia Staphylococcal pneumonia Recurrent pneumonia Diastolic CHF, acute Bilateral lower extremity edema Pneumonia COVID-19 CAD (coronary artery disease) GERD (gastroesophageal reflux disease) Hypothyroidism Hyperlipidemia Hypertension Insulin pump fitting or adjustment Fall Side effects of vaccination Type 1 diabetes mellitus with diabetic polyneuropathy Traumatic ecchymosis of ankle Cellulitis Laceration of lower leg Surgical History History of coronary artery bypass graft H/O thyroidectomy Total knee replacement status H/O bilateral hip replacements History of total right knee replacement (TKR) Family History Mother , at age 79 Coronary artery disease Father , at age 92 COVID-19 Social History Smoking Status: Never smoker alcohol intake: never substance use type: denies use current occupational status: employed Travel in the last 8 weeks: None household members: spouse housing: house lives independently: Yes marital status: number of children: 5 education level: high school service: No fpc: No current occupation: [employer] diet: diabetic marianna/restoration: [employer] ROS Obtained: Yes All systems reviewed & no additional complaints except as documented and Yes Systems reviewed as appropriate & no additional complaints except as documented Constitutional Constitutional: Reports system reviewed and no additional complaints, except as documented, Reports as per HPI, Reports body ache and Reports chills ENT Ears, Nose, Mouth, and Throat: Reports system reviewed and no additional complaints, except as documented, Reports as per HPI, Reports nasal congestion, Reports nasal discharge and Reports sore throat Cardiovascular Cardiovascular: Reports system reviewed and no additional complaints, except as documented and Reports as per HPI Respiratory Respiratory: Reports system reviewed and no additional complaints, except as documented, Reports as per HPI, Denies shortness of breath and Denies chest congestion Gastrointestinal Gastrointestingal: Reports system reviewed and no additional complaints, except as documented and as per HPI Neurologic Neurologic: Reports system reviewed and no additional complaints, except as documented and Reports as per HPI Physical Exam General General appearance: alert and in no apparent distress Expanded ENT Exam Nose exam: Present other (reports clear drainage) Throat exam: Present other (Mild pharyngeal erythema noted with PND) Chest Chest inspection: Present normal inspection and symmetric chest wall rise Respiratory Respiratory exam: Present normal lung sounds bilaterally; Absent respiratory d istress or wheezes Cardiovascular Cardiovascular exam: Present regular rate, normal rhythm and normal heart sounds Neurological Exam Neurological exam: Present alert, oriented X3 and normal gait (uses cane) Medical Decision Making Medical Records Screening: Per USPSTF and CDC recommendations, given the prevalence of disease in our region, it is our hospital?s policy to screen for HIV and viral Hepatitis for all patients aged 18 and over and those with ongoing risk factors. Herman Inquiry Pt receiving controlled substance: No Herman was queried for this patient: No Vital Signs: 11/09/23 12:58 Temperature 98.3 F Temperature Source Oral Pulse Rate [Left Radial] 84 Respiratory Rate 20 Blood Pressure [Left Arm] 158/88 H Blood Pressure Mean [Left Arm] 111 02 Sat by Pulse Oximetry 97 Lab Data Lab results reviewed: Yes I reviewed the patient's lab results. Lab Results 11/09/23 12:55: POC Glucose 106 Orders (Tests/Meds): ORDERS Category Date Time Status POC Glucose,Bedside Routine Lab 11/09/23 12:55 Completed Medical Decision Narrative: Patient states that his blood sugar was 90 he eat something, states this morning started with body aches, chills, and sore throat feels like he may have the flu or something
[2023-11-09 13:36] LABS: UTC Strep Screen (Rapid) Negative (Negative)
[2023-11-09 13:54] LABS: Adenovirus,PCR Not Detected (NotDetected); Bordetella Pertussis Not Detected (NotDetected); Chlamydophila Pneumoniae, PCR Not Detected (NotDetected); Coronavirus 19, PCR Not Detected (NotDetected); Coronavirus 229E Not Detected (NotDetected); Coronavirus NL63 Not Detected (NotDetected); Coronavirus OC43 Not Detected (NotDetected); Coronovirus HKU1,PCR Not Detected (NotDetected); Human Metapneumovirus Not Detected (NotDetected); Influenza A, PCR Not Detected (NotDetected); Influenza AH1, 2009 Not Detected (NotDetected); Influenza AH1, PCR Not Detected (NotDetected); Influenza AH3,PCR Not Detected (NotDetected); Influenza B, PCR Not Detected (NotDetected); Mycoplasma Pneumoniae, PCR Not Detected (NotDetected); Parainfluenza 1, PCR Not Detected (NotDetected); Parainfluenza 2, PCR Not Detected (NotDetected); Parainfluenza 3, PCR Not Detected (NotDetected); Parainfluenza 4, PCR Not Detected (NotDetected); Respiratory Syncytial Virus Not Detected (NotDetected); Rhinovirus/Enterovirus Not Detected (NotDetected)
[2023-11-09 14:02] VITALS: BP 158/88; PULSE 84; RESP 20; TEMP 36.8
== END 2023-11-09 14:06 | disposition home or self-care (01) ==
PROVIDERS: Emergency Provider Nurse Practitioner; PCP Family Medicine
DX: J06.9 Acute upper respiratory infection, unspecified (principal); R05.9 Cough, unspecified; R09.89 Other specified symptoms and signs involving the circulatory and respiratory systems; R53.1 Weakness; M79.10 Myalgia, unspecified site; E16.2 Hypoglycemia, unspecified
CPT/HCPCS: 82962; 87265; 87486; 87581; 87632; 87635; 87880; 99212; G0381

== ENCOUNTER 2023-11-10 10:00 | Outpatient (RCR) | payer MEDICARE, OTHER, SELFPAY | END 2023-11-10 23:59 | disposition home or self-care (01) | LOC: PT 10:00 | PROVIDERS: Visit Provider Family Medicine | DX: R26.89 Other abnormalities of gait and mobility (principal) | CPT/HCPCS: 97110; 97163; 97164; 97530 ==

== ENCOUNTER 2023-11-10 11:00 | Outpatient (RCR) | payer MEDICARE, OTHER, SELFPAY | END 2023-11-10 11:05 | disposition home or self-care (01) | LOC: OT 11:00 | PROVIDERS: Visit Provider Family Medicine | DX: M15.4 Erosive (osteo)arthritis (principal) | CPT/HCPCS: 97014; 97018; 97110; 97140; 97166; 97530; G0283 ==

== ENCOUNTER 2023-11-29 10:55 | Emergency (ER) | payer MEDICARE, OTHER, SELFPAY ==
[2023-11-29 12:15] VITALS: BP 132/71; PULSE 82; RESP 21; TEMP 37; O2SAT 95; BMI 28.8
--- NOTE | 2023-11-29 12:47 | ED_ITS ---
Discharge Plan Disposition Patient Disposition: Home, Self-Care Condition: Good Prescriptions Prescriptions: New amoxicillin 500 mg capsule 500 mg PO TID 7 Days Qty: 21 0RF ciprofloxacin-dexamethasone 0.3-0.1 % drops,suspension 4 drp otic (ear) BID 7 Days Qty: 7.5 0RF Rx Instructions: right ear as directed No Action furosemide 40 mg tablet 40 mg PO DAILY hydrocodone-acetaminophen 5-325 mg tablet 1 tab PO Q8H Patient Comments: TAKE 1 TABLET BY MOUTH EVERY 8 HOURS donepezil 10 mg tablet 10 mg PO DAILY sucralfate 1 gram tablet 1 g PO DAILY clopidogrel 75 mg tablet 75 mg PO DAILY valacyclovir 500 mg tablet 500 mg PO DAILY trazodone 150 mg tablet 150 mg PO HS allopurinol 300 mg tablet 300 mg PO DAILY metoprolol succinate 25 mg tablet extended release 24 hr 25 mg PO DAILY hydroxychloroquine 200 mg tablet 200 mg PO DAILY colchicine 0.6 mg tablet 0.6 mg PO DAILY fluticasone propionate 50 mcg/actuation spray,suspension 1 spray INTRANASAL DAILY lisinopril 2.5 mg tablet 2.5 mg PO DAILY colestipol 1 gram tablet 1 g PO DAILY loratadine 10 mg tablet 10 mg PO DAILY Patient Comments: TAKE 1 TABLET BY MOUTH DAILY insulin aspart U-100 [Novolog FlexPen U-100 Insulin] 100 unit/mL (3 mL) insulin pen See Rx Instructions .ROUTE .COMPLEX Rx Instructions: DIRECTED rosuvastatin 20 mg tablet 20 mg PO DAILY potassium chloride 10 mEq tablet,ER particles/crystals 10 meq PO DAILY duloxetine 60 mg capsule,delayed release(DR/EC) 60 mg PO DAILY (DME) pen needle, diabetic [BD Ultra-Fine Martine Pen Needle] 32 gauge x 5/32 needle MISCELLANEOUS Patient Comments: USE 1 NEEDLE FOR INSULIN 4 TIMES DAILY WITH MEALS AND AT BEDTIME Referrals Follow up/Referrals: Elijah Serra DO [Primary Care Provider] - See instructions Activity Restrictions/Add. Instructions Additional Instructions/Restrictions: Take oral antibiotics as prescribed Use ear drops as prescribed Follow up with your Family Doctor if no improvement or any worsening of symptoms Clinical Impressions Clinical Impression: Otitis media Instructions Patient Instructions: DI for Otitis Media (Middle Ear Infection)-Child, Middle Ear Infection Print Language Print Language: Syrian Discharge ED Provider: [facility] [place] HPI General Stated complaint: ear pain Mode of Arrival: Ambulatory Source of Information: Patient Limitations: No Limitations Time Seen by Provider: 11/29/23 12:47 Description of Symptoms (Recalled from Triage Doc. by RN): PATIENT C/O RIGHT EAR PAIN, COUGH, DRAINAGE, AND RUNNY NOSE X 4 DAYS HEENT Symptoms (Recalled from RN notes): Yes Resp Symptoms (Recalled from RN notes): Yes Skin Symptoms (Recalled from RN notes): No MS Symptoms (Recalled from RN notes): No Functional Status (Recalled from RN notes): WNL History of Present Illness Provider Complaint: Patient states that he has been having pain in his right ear and tender when he touches it, cough and sinus congestion since Tuesday that has continued to get worse so today he came in to get it checked Related Data Home Medications ?Medication ?Instructions ?Recorded ?Confirmed pen needle, diabetic 32 gauge x 11/09/23 11/29/23 (BD Ultra-Fine Martine Pen Needle) allopurinol 300 mg tablet 300 mg PO DAILY 11/29/23 11/29/23 clopidogrel 75 mg tablet 75 mg PO DAILY 11/29/23 11/29/23 colchicine 0.6 mg tablet 0.6 mg PO DAILY 11/29/23 11/29/23 colestipol 1 gram tablet 1 g PO DAILY 11/29/23 11/29/23 donepezil 10 mg tablet 10 mg PO DAILY 11/29/23 11/29/23 duloxetine 60 mg capsule,delayed 60 mg PO DAILY 11/29/23 11/29/23 release fluticasone propionate 50 1 spray intranasal DAILY 11/29/23 11/29/23 mcg/actuation nasal spray,suspension furosemide 40 mg tablet 40 mg PO DAILY 11/29/23 11/29/23 hydrocodone 5 mg-acetaminophen 325 1 tab PO Q8H 11/29/23 11/29/23 mg tablet hydroxychloroquine 200 mg tablet 200 mg PO DAILY 11/29/23 11/29/23 insulin aspart U-100 100 unit/mL See Rx Instructions .Route .COMPLEX 11/29/23 11/29/23 (3 mL) subcutaneous pen (Novolog FlexPen U-100 Insulin aspart) lisinopril 2.5 mg tablet 2.5 mg PO DAILY 11/29/23 11/29/23 loratadine 10 mg tablet 10 mg PO DAILY 11/29/23 11/29/23 metoprolol succinate 25 mg 25 mg PO DAILY 11/29/23 11/29/23 tablet,extended release 24 hr potassium chloride 10 mEq 10 meq PO DAILY 11/29/23 11/29/23 tablet,extended release(part/cryst) rosuvastatin 20 mg tablet 20 mg PO DAILY 11/29/23 11/29/23 sucralfate 1 gram tablet 1 g PO DAILY 11/29/23 11/29/23 trazodone 150 mg tablet 150 mg PO HS 11/29/23 11/29/23 valacyclovir 500 mg tablet 500 mg PO DAILY 11/29/23 11/29/23 Previous Rx's ?Medication ?Instructions ?Recorded amoxicillin 500 mg capsule 500 mg PO TID 7 days #21 caps 11/29/23 ciprofloxacin 0.3 %-dexamethasone 4 drp otic (ear) BID 7 days #7.5 mL 11/29/23 0.1 % ear drops,suspension Allergies Allergy/AdvReac Type Severity Reaction Status Date / Time iodine [IODINE] Allergy Mild Verified 09/22/23 09:15 adhesive tape Allergy Verified 09/22/23 09:15 Worker's Comp Is this a Worker's Comp case?: No [facility] Disclaimer: The information contained in this section may have been updated after the patient was seen, as this information can be updated by other users. Medical History Bronchiectasis type 1 Recurrent bacterial pneumonia Staphylococcal pneumonia Recurrent pneumonia Diastolic CHF, acute Bilateral lower extremity edema Pneumonia COVID-19 CAD (coronary artery disease) GERD (gastroesophageal reflux disease) Hypothyroidism Hyperlipidemia Hypertension Insulin pump fitting or adjustment Fall Side effects of vaccination Type 1 diabetes mellitus with diabetic polyneuropathy Traumatic ecchymosis of ankle Cellulitis Laceration of lower leg Surgical History History of coronary artery bypass graft H/O thyroidectomy Total knee replacement status H/O bilateral hip replacements History of total right knee replacement (TKR) Family History Mother , at age 79 Coronary artery disease Father , at age 92 COVID-19 Social History Smoking Status: Never smoker alcohol intake: never substance use type: denies use current occupational status: employed Travel in the last 8 weeks: None household members: spouse housing: house lives independently: Yes marital status: number of children: 5 education level: high school service: No chcf: No current occupation: [employer] diet: diabetic marianna/yarsanism: Lutheran ROS Obtained: Yes All systems reviewed & no additional complaints except as documented and Yes Systems reviewed as appropriate & no additional complaints except as documented Constitutional Constitutional: Reports system reviewed and no additional complaints, except as documented and Reports as per HPI ENT Ears, Nose, Mouth, and Throat: Reports system reviewed and no additional complaints, except as documented, Reports as per HPI, Reports otalgia, Reports nasal congestion and Reports nasal discharge Cardiovascular Cardiovascular: Reports system reviewed and no additional complaints, except as documented and Reports as per HPI Respiratory Respiratory: Reports system reviewed and no additional complaints, except as documented and Reports as per HPI Gastrointestinal Gastrointestingal: Reports system reviewed and no additional complaints, except as documented and as per HPI Musculoskeletal Musculoskeletal: Reports system reviewed and no additional complaints, except as documented and Reports as per HPI Physical Exam General General appearance: alert and in no apparent distress ENT ENT exam: Present mucous membranes moist Expanded ENT Exam External ear exam: Present pain with movement (right) and external tenderness (right) TM/Canal exam: Right TM: erythema and bulging Respiratory Respiratory exam: Present normal lung sounds bilaterally; Absent respiratory distress or wheezes Cardiovascular Cardiovascular exam: Present regular rate, normal rhythm and normal heart sounds Neurological Exam Neurological exam: Present alert, oriented X3 and normal gait Medical Decision Making Medical Records Screening: Per USPSTF and CDC recommendations, given the prevalence of disease in our region, it is our hospital?s policy to screen for HIV and viral Hepatitis for all patients aged 18 and over and those with ongoing risk factors. Herman Inquiry Pt receiving controlled substance: No Herman was queried for this patient: No Vital Signs: 11/29/23 12:15 Temperature 98.6 F Temperature Source Oral Pulse Rate [Left Brachial] 82 Respiratory Rate 21 Blood Pressure [Left Arm] 132/71 Blood Pressure Mean [Left Arm] 91 Blood Pressure Source [Left Arm] Automatic Cuff Blood Pressure Position [Left Arm] Sitting 02 Sat by Pulse Oximetry 95 Oxygen Delivery Method Room Air Medical Decision Narrative: medication discussed with pharmacy
[2023-11-29 12:58] VITALS: BP 132/71; PULSE 82; RESP 21; TEMP 37; O2SAT 95
== END 2023-11-29 13:01 | disposition home or self-care (01) ==
PROVIDERS: Emergency Provider Nurse Practitioner; PCP Family Medicine
DX: H66.93 Otitis media, unspecified, bilateral (principal)
CPT/HCPCS: 99212; G0381

== ENCOUNTER 2023-12-08 12:49 | Outpatient (CLI) | payer MEDICARE, OTHER, SELFPAY ==
[2023-12-08 14:36] VITALS: BMI 28.1
== END 2023-12-08 23:59 | disposition home or self-care (01) ==
LOC: DIETICIAN 12:49
PROVIDERS: PCP Family Medicine; Visit Provider Pathology Anatomic Pathology & Clinical Pathology
DX: E10.42 Type 1 diabetes mellitus with diabetic polyneuropathy (principal)
CPT/HCPCS: 97802

== ENCOUNTER 2024-02-10 16:51 | Outpatient (CLI) | payer MEDICARE, OTHER, SELFPAY | END 2024-02-10 23:59 | disposition home or self-care (01) | LOC: LAB 16:53 | PROVIDERS: PCP Family Medicine; Visit Provider Urology | DX: N39.0 Urinary tract infection, site not specified (principal) | CPT/HCPCS: 87086 ==

== ENCOUNTER 2024-03-19 14:41 | Emergency (ER) | payer MEDICARE, OTHER, SELFPAY ==
--- NOTE | 2024-03-19 14:39 | ECG_ITS ---
APPROVED REPORT Exam: Resting ECG HR:85 bpm ECG Measurements Heart Rate 85 AXES MA 166 P 52 QRSd 114 QRS -44 QT 383 T 27 QTc 426 Conclusion SINUS RHYTHM LEFT AXIS DEVIATION [QRS AXIS < -30] LEFT VENTRICULAR HYPERTROPHY AND ST-T CHANGE [VOLTAGE CRITERIA PLUS ST/T ABNORMALITY] ABNORMAL ECG No STEMI Electronically signed by : JOEL SMITH, 03/20/2024 07:00:15
[2024-03-19 14:41] VITALS: BP 120/73; PULSE 88; RESP 20; TEMP 37.5; O2SAT 95; BMI 28.0
--- NOTE | 2024-03-19 15:07 | XR_ITS ---
FINAL REPORT CLINICAL HISTORY: SHORTNESS OF BREATH COMPARISON: 08/29/2023 FINDINGS: There are bibasilar pulmonary opacities, worse on the right and stable on the left. These probably represent pneumonia superimposed on chronic changes. There are tiny bilateral pleural effusions. Mediastinum is unremarkable. Heart size is normal. IMPRESSION: Chronic lung changes with superimposed pneumonia right lung base. Reviewed, Interpreted and Dictated by Anajna Ortiz MD Transcribed by Rhianna Morocho Authenticated and [facility]
--- NOTE | 2024-03-19 15:11 | PC.NURSE ---
XR AT BEDSIDE
[2024-03-19 15:12] LABS: Basophils % 0.5 % (0.1-2.0); Coronavirus 19, PCR Not Detected (NotDetected); Eosinophils # 0.2 K/mm3 (0.0-0.4); Eosinophils % 3.8 % (0.1-12.0); Hematocrit 36.5 % (42.0-52.0); Hemoglobin 11.8 g/dL (14.1-18.0); Influenza A, PCR Not Detected (NotDetected); Influenza B, PCR Not Detected (NotDetected); Lymphocytes # 0.5 K/mm3 (0.7-4.5); Lymphocytes % 9.2 % (10-50); Mean Corpuscular HGB Conc 32.3 g/dL (31.8-35.4); Mean Corpuscular Hemoglobin 28.6 pg (27.0-31.2); Mean Corpuscular Volume 88.4 fl (80-94); Monocytes # 0.7 K/mm3 (0.1-1.0); Neutrophils # 4.3 K/mm3 (1.8-7.8); Neutrophils % 74.2 % (37.0-80.0); Platelet Count 134 K/mm3 (142-424); Red Blood Count 4.13 M/mm3 (4.60-6.20); Red Cell Distribution Width 15.1 % (11.5-17.5); White Blood Count 5.8 K/mm3 (4.8-10.8)
[2024-03-19 15:15] LABS: Albumin Level 4.3 g/dl (3.5-5.0); Chloride 96 mmol/L (98-107); Sodium 138 mmol/L (136-145)
[2024-03-19 15:16] LABS: Potassium 4.1 mmoL/L (3.5-5.1)
[2024-03-19 15:18] LABS: Alanine Aminotransferase 32 U/L (12-78); Anion Gap 16.1 mEq/L (5-15); Aspartate Amino Transferase 42 U/L (17-59); Blood Urea Nitrogen 19 mg/dl (9-20); Carbon Dioxide 30 mmol/L (22.0-30.0); Creatinine Clearance Estimated 64 mL/min (50-200); Estimated Glomerular Filt Rate 55 ml/min (>60); GFR (African American) 66 ML/MIN (>60)
[2024-03-19 15:19] LABS: Albumin/Globulin Ratio 1.5 (1.1-1.8); Alkaline Phosphatase 89 U/L (38-126); Calcium 9.5 mg/dl (8.4-10.2); Globulin 2.9 g/dL (1.3-3.2); Glucose 156 mg/dl (74-100); Total Protein,Serum 7.2 g/dl (6.3-8.2)
--- NOTE | 2024-03-19 15:25 | PC.NURSE ---
ROUNDED ON THE PT. THE PT VOICES THAT HE DOES NOT NEED ANYTHING AT THIS TIME. CALL LIGHT IS WITHIN REACH OF THE PT.
[2024-03-19 15:30] VITALS: BP 120/60; PULSE 81; RESP 19; O2SAT 96
[2024-03-19 15:34] LABS: Troponin I < 0.01 ng/ml (0.00-0.034)
--- NOTE | 2024-03-19 15:40 | PC.NURSE ---
DR SAM AT BEDSIDE
--- NOTE | 2024-03-19 15:52 | ED_ITS ---
Discharge Plan Disposition Patient Disposition: Home, Self-Care Prescriptions Prescriptions: New amoxicillin-pot clavulanate 875-125 mg tablet 1 tab PO BID 7 Days Qty: 14 0RF azithromycin [Zithromax Z-Kushal] 250 mg tablet 250 mg PO DAILY 4 Days Qty: 4 0RF Rx Instructions: start on day 2 of therapy No Action hydrocodone-acetaminophen 5-325 mg tablet 1 tab PO Q8H Patient Comments: TAKE 1 TABLET BY MOUTH EVERY 8 HOURS donepezil 10 mg tablet 10 mg PO DAILY sucralfate 1 gram tablet 1 g PO DAILY clopidogrel 75 mg tablet 75 mg PO DAILY valacyclovir 500 mg tablet 500 mg PO DAILY trazodone 150 mg tablet 150 mg PO HS hydroxychloroquine 200 mg tablet 200 mg PO DAILY colchicine 0.6 mg tablet 0.6 mg PO DAILY fluticasone propionate 50 mcg/actuation spray,suspension 1 spray INTRANASAL DAILY lisinopril 2.5 mg tablet 2.5 mg PO DAILY colestipol 1 gram tablet 1 g PO DAILY loratadine 10 mg tablet 10 mg PO DAILY Patient Comments: TAKE 1 TABLET BY MOUTH DAILY insulin aspart U-100 [Novolog FlexPen U-100 Insulin] 100 unit/mL (3 mL) insulin pen See Rx Instructions .ROUTE .COMPLEX Rx Instructions: DIRECTED rosuvastatin 20 mg tablet 20 mg PO DAILY potassium chloride 10 mEq tablet,ER particles/crystals 10 meq PO DAILY duloxetine 60 mg capsule,delayed release(DR/EC) 60 mg PO DAILY furosemide 40 mg tablet 40 mg PO DAILY tamsulosin 0.4 mg capsule 0.4 mg PO DAILY gabapentin 800 mg tablet 800 mg PO DAILY allopurinol 300 mg tablet 300 mg PO DAILY metoprolol succinate 25 mg tablet extended release 24 hr 25 mg PO DAILY levothyroxine 112 mcg tablet 112 mcg PO DAILY Patient Comments: TAKE 1 TABLET BY MOUTH ONCE DAILY (DME) pen needle, diabetic [BD Ultra-Fine Martine Pen Needle] 32 gauge x 5/32 needle MISCELLANEOUS Patient Comments: USE 1 NEEDLE FOR INSULIN 4 TIMES DAILY WITH MEALS AND AT BEDTIME Referrals Follow up/Referrals: Elijah Serra DO [Primary Care Provider] - See instructions Activity Restrictions/Add. Instructions Additional Instructions/Restrictions: At this time it was felt you are safe to be discharged home. If new or worsening symptoms please do not hesitate to return the emergency department. Please follow-up with your family doctor later this week and take antibiotics as prescribed. Your kidney function was a little bit worse today than normal but not dangerous, please continue to hydrate is much as you can. Clinical Impressions Clinical Impression: Pneumonia Print Language Print Language: Citizen Of [place] Discharge ED Provider: Matias Ward HPI General Chief Complaint: Shortness of Breath/Dyspnea Stated Complaint: SOA Time Seen by Provider: 03/19/24 15:15 Mode of Arrival: Wheelchair Source of Information: Patient Limitations: No Limitations Description of Symptoms (Recalled from ER Triage Doc. by RN): PT C/O INCREASED SHORTNESS OF BREATH, LOW OXYGEN SATURATION AND NOT FEELING WELL X 2-3 WEEKS. PT DOES NOT WEAR HOME O2. PT REPORTS GRANDDAUGHTER WITH FLU History of Present Illness HPI narrative: Patient is 68-year-old male with past medical history of recurrent pneumonia who presents emergency department for evaluation of shortness of breath. History is obtained by patient at bedside. Over the last 48 hours he has had worsening cough and shortness of breath. He has chest pain associated with his cough. He has been compliant with his diuretics which he takes for his CHF. He has multiple sick contacts at home with influenza. No other acute complaints at this time. Related Data Home Medications ?Medication ?Instructions ?Recorded ?Confirmed pen needle, diabetic 32 gauge x 11/09/23 03/19/24 (BD Ultra-Fine Martine Pen Needle) clopidogrel 75 mg tablet 75 mg PO DAILY 11/29/23 03/19/24 colchicine 0.6 mg tablet 0.6 mg PO DAILY 11/29/23 03/19/24 colestipol 1 gram tablet 1 g PO DAILY 11/29/23 03/19/24 donepezil 10 mg tablet 10 mg PO DAILY 11/29/23 03/19/24 duloxetine 60 mg capsule,delayed 60 mg PO DAILY 11/29/23 03/19/24 release fluticasone propionate 50 1 spray intranasal DAILY 11/29/23 03/19/24 mcg/actuation nasal spray,suspension hydrocodone 5 mg-acetaminophen 325 1 tab PO Q8H 11/29/23 03/19/24 mg tablet hydroxychloroquine 200 mg tablet 200 mg PO DAILY 11/29/23 03/19/24 insulin aspart U-100 100 unit/mL See Rx Instructions .Route .COMPLEX 10/22/24 02/10/25 (3 mL) subcutaneous pen (Novolog FlexPen U-100 Insulin aspart) lisinopril 2.5 mg tablet 2.5 mg PO DAILY 11/29/23 03/19/24 loratadine 10 mg tablet 10 mg PO DAILY 11/29/23 03/19/24 potassium chloride 10 mEq 10 meq PO DAILY 11/29/23 03/19/24 tablet,extended release(part/cryst) rosuvastatin 20 mg tablet 20 mg PO DAILY 11/29/23 03/19/24 sucralfate 1 gram tablet 1 g PO DAILY 11/29/23 03/19/24 trazodone 150 mg tablet 150 mg PO HS 11/29/23 03/19/24 valacyclovir 500 mg tablet 500 mg PO DAILY 11/29/23 03/19/24 allopurinol 300 mg tablet 300 mg PO DAILY 03/19/24 03/19/24 furosemide 40 mg tablet 40 mg PO DAILY 03/19/24 03/19/24 gabapentin 800 mg tablet 800 mg PO DAILY 03/19/24 03/19/24 levothyroxine 112 mcg tablet 112 mcg PO DAILY 03/19/24 03/19/24 metoprolol succinate 25 mg 25 mg PO DAILY 03/19/24 03/19/24 tablet,extended release 24 hr tamsulosin 0.4 mg capsule 0.4 mg PO DAILY 03/19/24 03/19/24 Previous Rx's ?Medication ?Instructions ?Recorded amoxicillin 875 mg-potassium 1 tab PO BID pneumonia 7 days #14 03/19/24 clavulanate 125 mg tablet tabs azithromycin 250 mg tablet 250 mg PO DAILY pneumonia 4 days 03/19/24 (Zithromax Z-Kushal) #4 tabs Allergies Allergy/AdvReac Type Severity Reaction Status Date / Time iodine (IODINE) Allergy Mild Verified 01/04/24 09:33 adhesive tape Allergy Verified 01/04/24 09:33 [facility] Disclaimer: The information contained in this section may have been updated after the patient was seen, as this information can be updated by other users. Medical History Bronchiectasis type 1 Recurrent bacterial pneumonia Staphylococcal pneumonia Recurrent pneumonia Diastolic CHF, acute Bilateral lower extremity edema Pneumonia COVID-19 CAD (coronary artery disease) GERD (gastroesophageal reflux disease) Hypothyroidism Hyperlipidemia Hypertension Insulin pump fitting or adjustment Fall Side effects of vaccination Type 1 diabetes mellitus with diabetic polyneuropathy Traumatic ecchymosis of ankle Cellulitis Laceration of lower leg Surgical History History of coronary artery bypass graft H/O thyroidectomy Total knee replacement status H/O bilateral hip replacements History of total right knee replacement (TKR) Family History Mother , at age 79 Coronary artery disease Father , at age 92 COVID-19 Social History (Updated 03/19/24 @ 15:10 by Shweta Best RN) Smoking Status: Never smoker alcohol intake: never substance use type: denies use current occupational status: employed Travel in the last 8 weeks: None household members: spouse housing: house lives independently: Yes marital status: number of children: 5 education level: high school service: No [place] [facility]: No current occupation: [employer] diet: diabetic marianna/mormon: Baptism Have you lived/traveled outside US in past 30 days?: No Contact w/someone who lives/traveled outside US past 30 days?: No Exposure to someone with infectious disease in past 14 days?: No Do you have a fever (greater than 100.4 F or 38 C)?: No Have you tested positive for COVID-19: No Exposed to someone with COVID-19 in past 14 days?: No Do you have a sore throat?: No Do you have a cough?: No Do you have any weakness?: No Are you experiencing any nausea/vomitting?: No Do you have any diarrhea?: No Are you experiencing any unusual bleeding?: No Do you have any muscle aches/pain?: No Do you have any abdominal pain?: No Are you experiencing loss of taste or smell?: No Other Medical History Have you received the Flu Vaccine for this season: No Have you received the Pneumonia Vaccine: Yes ROS Obtained: Yes Systems reviewed as appropriate & no additional complaints except as documented Physical Exam General General appearance: alert and in no apparent distress Head Head exam: atraumatic and normocephalic Eye Eye exam: Present PERRL ENT ENT exam: Present mucous membranes moist Neck Neck exam: Present normal inspection Chest Chest inspection: Present normal inspection and symmetric chest wall rise Respiratory Respiratory exam: Absent normal lung sounds bilaterally (Decreased breath sounds right base), respiratory distress or wheezes Cardiovascular Cardiovascular exam: Present regular rate and normal rhythm Abdominal Exam Abdominal exam: Present soft; Absent tenderness Extremities Exam Extremities exam: Present normal inspection; Absent edema Neurological Exam Neurological exam: Present alert Psychiatric Psychiatric exam: Present normal affect Skin Skin exam: Present warm and dry HEART Score HEART Score HEART Score assessment performed?: Yes History (anamnesis): Slightly suspicious ECG: Non-specific disturbance Age: >65 years Risk factors: Atherosclerosis history Troponin: </= normal limit HEART Score: 5 Critical Care Critical Care Time Critical Care Time: No Medical Decision Making Herman Inquiry Pt receiving controlled substance: No Vital Signs Vital Signs: 03/19/24 14:41 03/19/24 15:30 Temperature 99.5 F Temperature Source Axillary Pulse Rate 81 Pulse Rate [Apical] 88 Respiratory Rate 20 19 Blood Pressure 120/60 Blood Pressure [Right Arm] 120/73 Blood Pressure Mean [Right Arm] 88 Blood Pressure Source [Right Arm] Automatic Cuff Blood Pressure Position [Right Arm] Sitting 02 Sat by Pulse Oximetry 95 96 Oxygen Delivery Method Room Air Room Air Lab Data Labs: Lab Results 03/19/24 14:49: WBC 5.8, RBC 4.13 L, Hgb 11.8 L, Hct 36.5 L, MCV 88.4, MCH 28.6, MCHC 32.3, RDW 15.1, Plt Count 134 L, MPV 9.0, Neut % (Auto) 74.2, Lymph % (Auto) 9.2 L, [place] % (Auto) 12.0 H, Eos % (Auto) 3.8, Baso % (Auto) 0.5, Neut # (Auto) 4.3, Lymph # (Auto) 0.5 L, [place] # (Auto) 0.7, Eos # (Auto) 0.2, Baso # (Auto) 0.0, Sodium 138, Potassium 4.1, Chloride 96 L, Carbon Dioxide 30, Anion Gap 16.1 H, BUN 19, Creatinine 1.30 H, Estimated Creat Clear 64, Estimated GFR 55 L, Est GFR ( Amer) 66, Glucose 156 H, Calcium 9.5, Total Bilirubin 1.0, AST 42, ALT 32, Alkaline Phosphatase 89, Troponin I < 0.01, Total Protein 7.2, Albumin 4.3, Globulin 2.9, Albumin/Globulin Ratio 1.5, SARS-CoV-2 (PCR) Not detected, Influenza A Untype (PCR) Not detected, Influenza Type B (PCR) Not detected 03/19/24 14:49 03/19/24 14:49 Response Orders (Tests/Meds): ED MEDICATIONS Generic Name Dose Route Start Last Admin Trade Name Freq PRN Reason Stop Dose Admin Sodium Chloride 10 ml 03/19/24 15:07 Sodium Chloride 0.9% 10ml Flush Syringe IV 04/18/24 15:06 NEEDED PRN Maintain IV Site ORDERS Category Date Time Status XR chest portable Stat Exams 03/19/24 15:07 Completed Complete Blood Count Auto Diff Stat Lab 03/19/24 14:49 Completed Comprehensive Metabolic Panel Stat Lab 03/19/24 14:49 Completed HIV Combo Stat Lab 03/19/24 14:49 Received Hepatitis C Ab Qual. W/ RFX Stat Lab 03/19/24 14:49 Received Rapid PCR Covid and Flu A/B Stat Lab 03/19/24 14:49 Completed Trop I [Troponin I] Stat Lab 03/19/24 14:49 Completed Troponin I Q3H Lab 03/19/24 18:15 Ordered Troponin I Q3H Lab 03/19/24 21:15 Ordered ECG Data Tracing #1: ECG Narrative: Independently interpreted by me rate is 85, rhythm is regular, axis is leftward deviated, no ST elevation in anatomical contiguous leads, QTc 426. MDM Narrative Medical Decision Narrative: In summary patient is a 5-year-old male past medical history described above who presents to the emergency department for evaluation of shortness of breath and cough. Patient is hemodynamically stable nontoxic-appearing with normal, afebrile. Differential includes pneumonia, influenza, ACS, among others. Workup we conducted hematologic labs, chest x-ray, viral swab. Initial workup reviewed by me, hematologic labs are largely nonactionable, slight elevation creatinine without criteria for ELIZABETH per rifle criteria. Chest x-ray informally interpreted by me right lower lobe pneumonia. Formal read consistent with my informal interpretation. Initial troponin undetectably low. Patient underwent ambulatory pulse ox test which was acceptable did not go below 90. Given this patient will be double covered for pneumonia with Augmentin and azithromycin and was given return precautions and verbalized understanding will follow-up with family doctor later this week.
--- NOTE | 2024-03-19 15:52 | PC.NURSE ---
vbg sent to lab, respiratory and lab aware it was sent
--- NOTE | 2024-03-19 15:55 | PC.NURSE ---
SA02 90 % on exertion
[2024-03-19 15:59] LABS: Lactate Venous 1.6 mmol/L (0.4-2.0); VBG Base Excess 4.6 mmol/L (-2.4-2.3); VBG HCO3 27.6 mmol/L (23-30); VBG Oxygen Saturation 95.1 % (50-70); VBG PCO2 35.1 mmol/L (35-51); VBG PH 7.51 mmol/L (7.31-7.41); VBG PO2 69.2 mmol/L (28-40); VBG Total CO2 28.6 mmol/L (23-27)
[2024-03-19 16:00] VITALS: BP 115/59; PULSE 75; RESP 19; O2SAT 95
[2024-03-19] MEDS: AMOXICILLIN/CLAVULANATE POTASSIUM 875/125MG TABLET 1 EACH PO (16:31)
[2024-03-19] MEDS: AZITHROMYCIN 250MG TABLET 500 MG PO (16:32)
[2024-03-19 16:39] VITALS: BP 115/62; PULSE 81; RESP 15; TEMP 37.5; O2SAT 93
[2024-03-19 16:42] LABS: HIV Combo NEGATIVE (Negative)
[2024-03-19 16:49] LABS: Hepatitis C Ab Qual. W/ RFX NEGATIVE (Negative)
== END 2024-03-19 16:42 | disposition home or self-care (01) ==
PROVIDERS: Emergency Provider Student in an Organized Health Care Education/Training Program; PCP Family Medicine
DX: J18.9 Pneumonia, unspecified organism (principal); R06.02 Shortness of breath; R05.9 Cough, unspecified; R07.89 Other chest pain; Z20.828 Contact with and (suspected) exposure to other viral communicable diseases
CPT/HCPCS: 71045; 80053; 82803; 84484; 85025; 86803; 87389; 87636; 93005; 99284

== ENCOUNTER 2024-04-09 16:33 | Outpatient (CLI) | payer MEDICARE, OTHER, SELFPAY ==
[2024-04-09 16:41] LABS: Microscopic, Urine URINE MICROSCOPIC (MICROSCOPIC)
[2024-04-09 17:41] LABS: Hematocrit 38.4 % (42.0-52.0); Hemoglobin 12.2 g/dL (14.1-18.0); Mean Corpuscular HGB Conc 31.8 g/dL (31.8-35.4); Mean Corpuscular Hemoglobin 28.9 pg (27.0-31.2); Platelet Count 161 K/mm3 (142-424); Red Blood Count 4.22 M/mm3 (4.60-6.20); Red Cell Distribution Width 15.1 % (11.5-17.5); White Blood Count 5.8 K/mm3 (4.8-10.8)
[2024-04-09 18:33] LABS: Alanine Aminotransferase 30 U/L (12-78); Albumin Level 4.5 g/dl (3.5-5.0); Albumin/Globulin Ratio 1.8 (1.1-1.8); Alkaline Phosphatase 88 U/L (38-126); Anion Gap 11.8 mEq/L (5-15); Aspartate Amino Transferase 39 U/L (17-59); Bilirubin,Total 0.8 mg/dl (0.2-1.3); Blood Urea Nitrogen 18 mg/dl (9-20); Calcium 9.8 mg/dl (8.4-10.2); Carbon Dioxide 32 mmol/L (22.0-30.0); Chloride 102 mmol/L (98-107); Estimated Glomerular Filt Rate 60 ml/min (>60); GFR (African American) 72 ML/MIN (>60); Globulin 2.5 g/dL (1.3-3.2); Potassium 4.8 mmoL/L (3.5-5.1); Sodium 141 mmol/L (136-145)
[2024-04-09 18:45] LABS: Intact Parathyroid Hormone 55.3 pg/mL (7.5-53.5)
[2024-04-09 18:49] LABS: 25-OH Vitamin D, Total 76.2 ng/mL (30-100)
[2024-04-09 20:30] LABS: Appearance,Urine CLEAR (Clear); Bilirubin,Urine Negative (Negative); Blood, Urine Negative (Negative); Color,Urine YELLOW (Yellow); Glucose,Urine (UA) Negative (Negative); Ketones,Urine Negative (Negative); Leukocyte Esterase,Urine Negative (Negative); Nitrate,Urine Negative (Negative); Protein,Urine Negative (Negative); Specific Gravity, Urine 1.025 (1.005-1.030); Urobilinogen,Urine 0.2 EU/dl (0.2)
[2024-04-09 20:51] LABS: Glucose 44 mg/dl (74-100)
[2024-04-09 21:17] LABS: Creatinine,Urine Random 141 mg/dL (Not Estab.)
[2024-04-09 22:36] LABS: WBC,Urine Occasional #/hpf (0-3)
[2024-04-09 22:37] LABS: Bacteria,Urine Trace /lpf
== END 2024-04-09 23:59 | disposition home or self-care (01) ==
LOC: LAB 16:35
PROVIDERS: PCP Family Medicine; Visit Provider Internal Medicine Nephrology
DX: E11.22 Type 2 diabetes mellitus with diabetic chronic kidney disease (principal); I12.9 Hypertensive chronic kidney disease with stage 1 through stage 4 chronic kidney disease, or unspecified chronic kidney disease; N18.30 Chronic kidney disease, stage 3 unspecified; E21.3 Hyperparathyroidism, unspecified; N40.0 Benign prostatic hyperplasia without lower urinary tract symptoms; R31.9 Hematuria, unspecified
CPT/HCPCS: 36415; 80053; 81001; 82306; 82570; 83036; 83970; 84156; 84550; 85027

== ENCOUNTER 2024-08-02 16:00 | Outpatient (RCR) | payer MEDICARE, OTHER, SELFPAY ==
--- NOTE | 2024-07-30 16:22 | HMH.SLDYSPHA ---
Speech & Language Evaluation Speech/Language Dysphagia Evaluation Start: 07/30/24 15:45 Freq: ONCE Status: Active Protocol: Document 07/30/24 15:45 RYNE (Rec: 07/30/24 16:22 RYNE [id number]) Dysphagia Assess/Goals/Plan Assessment Date of Evaluation: 07/30/24 Evaluation Type Initial Certification Assessment/Problems esophageal dysphagia per MD order Does Patient Qualify Yes for Service Qualify/Failure Based on patient questionnaires and patient interview, Comment Mr. Gold would benefit from skilled speech therapy services 1x/week for 12 weeks in order to address oropharyngeal dysphagia and target oral motor exercises , as well as dysphagia exercises. Recommendations PHYSICIAN CERTIFICATION: The specified therapy services are required, authorized, and reviewed every 30 days. Pt will be seen # 1 times/week for # weeks 12 Diet Recommendations Normal Liquid Type Normal/Thin Recommendations SL Swallow High aspiration risk,Standard Aspiration Prec.,Crush Guidelines meds as allowed*,Eat at slow rate,Oral Care Education, Oral care pre/post meals,Reflux precautions Crush Meds Crush all meds Dysphagia Swallow Sitting Upright (90 deg),Turn Head Left,Small Bites and Precautions/ Sips,Alternate Liquids/Solids Strategies Comment Recommendations were made by HV[employer] COMMERCIAL SALESPERSON at [facility]. Plan Anticipate reaching 8 STG in # weeks Anticipate reaching 12 LTG in # weeks Pt/Guardian verbally Yes ack understanding of dx/prognosis/ goals G -code Required No STG-Other Comment/Non-Specific 1. Mr. Gold will complete lingual and labial oral motor exercises with 80% accuracy as measured by tri- monthly progress notes. 2. Mr. Gold will complete pharyngeal strengthening exercises with 80% accuracy as measured by tri-monthly progress notes. 3. Mr. Gold will participate in a repeat instrumental assessment (MBSS) at the end of a three month interval. Prison Goals Diet Regular with Liquids Thin Liquids Pt will be able to Yes eat foods w/more normal consistency Education Instructions HV[employer] COMMERCIAL SALESPERSON discussed results of questionnaires and POC with pt provided who expressed understanding. Pt/Caregiver able to Able to recall/restate recall information Reinforcement needed No Speech & Language HPI History Present Illness Description of Mr. Gold is a pleasant 68 year old male presenting Patient Problem to [facility] for a skilled speech therapy evaluation to assess swallowing. Mr. Gold's PMHx includes diabetes, arthritis, and recurrent pneumonia. Surgical hx includes both hip replacements, right knee replacement, thyroid surgery, and open heart surgery. Allergies include tape and iodine dye. His hearing was evaluated at [facility] in 2023 and he was determined to require hearing aids, however was u/a to report degree of hearing loss. Mr. Gold also reported he has vision issues in both eyes. Mr. Gold was referred to [facility] following a hospitalization at [facility] d/t a fall. At , Mr. Gold underwent an instrumental assessment (MBSS) in which he was found to have severe dysphagia. This report suggests Mr. Gold's dysphagia has worsened since his last MBSS at [facility] on 09/28/23. Mr. Gold stated that he believes his dysphagia has worsened as he has lost 30 pounds in 5 months and experiences episodes of coughing while eating. Mr. Gold stated at [facility] he was given a modified diet of puree/thickened liquids, but was u/a to report level of thickness. He expressed to clinician that he did not enjoy being on a modified diet and would not be compliant if he were placed on one, however would be compliant to dysphagia and oral motor exercises, as well as repeat instrumental assessments. He states that he would like to proceed with outpatient therapy. Rehab Services Speech therapy Assessed Is this evaluation r No /t stroke? Hearing Previous Hearing Yes Test Hearing Ability Use of Hearing Aid Comment Pt was not wearing hearing aids during evaluation, but reported that he needs them. Vision Visual Difficulty Impaired Comment Pt stated he has difficulties with both eyes. Language Primary Language [place] Lang/Spoken Honduran in Home Accent Affect No Communication? Therapy History Seen by other Yes therapists Who/When/ Seen for a MBSS at [facility] on 09/28/23, which indicated mild Recommendations -moderate impairment of oropharyngeal swallow. Recently seen at [facility] during 07/15/24-07/20/24 and received a MBSS which indicated worsening dysphagia and was placed on a puree/thickened liquid diet. Other Specialists? Yes Who/When/ Seen in the past for occupational and physical therapy. Recommendations Seen 07/30/24 at [facility] for a physical therapy evaluation. General Information General Current Food Regular,Thin Liquids Consistancy Dentition Good Dentition Oxygen Status Room Air Facial Symmetry Symmetrical Patient Orientation Person,Place,Time,Situation Ability to Follow Excellent Directions Communication No Impairment Ability Dysphagia:Food Presentation Evaluation Dysphagia Evaluation HVAC COMMERCIAL SALESPERSON did not administer any food items during evaluation Summary d/t recent instrumental assessments. Instead HVAC COMMERCIAL SALESPERSON administered pt questionnaires including Reflux Severity Index, Eating Assessment Tool, PILL-5, and the Augie Elmore Dysphagia Inventory. HV[employer] COMMERCIAL SALESPERSON will request access to pt's recent instrumental assessment (MBSS) from [facility]. Mr. Gold's scores for the following questionnaires are as follows: Reflux Severity Index- Total score - 24 (Normative data suggests that a RSI of greater than or equal to 13 is clinically significant and indicative of significant reflux disease) Eating Assessment Tool- Total score - 17 (A score of 15 or more indicates a patient is at risk for aspiration) PILL-5- Total score- 8 (Indicates pill swallowing is abnormal) Augie Elmore Dysphagia Inventory- Global score- 4 Composite score- 67 (Composite score ranges from 20, extremely low functioning, to 100, high functioning) Stroke Dysphagia Assessment PHYSICIAN CERTIFICATION: I certify the specified therapy services for Obdulio Gold are required, authorized, and reviewed every 30 days.
== END 2024-08-02 23:59 | disposition home or self-care (01) ==
LOC: ST 16:00
PROVIDERS: PCP Family Medicine; Visit Provider Family Medicine
DX: R13.19 Other dysphagia (principal)
CPT/HCPCS: 92526; 92610

== ENCOUNTER 2024-08-02 17:00 | Outpatient (RCR) | payer MEDICARE, OTHER, SELFPAY | END 2024-08-02 23:59 | disposition home or self-care (01) | LOC: PT 17:00 | PROVIDERS: PCP Family Medicine; Visit Provider Family Medicine | DX: R53.1 Weakness (principal) | CPT/HCPCS: 97110; 97162 ==

== ENCOUNTER 2024-08-13 12:02 | Inpatient (IN) | payer MEDICARE, OTHER, SELFPAY ==
--- OUTSIDE RECORDS SUMMARY | 2024-07-15 08:22 | XMS_ITS | Encounter Summary ---
[facility] Address [address] [place] [address] Support Name Relationship Address Phone Stepan Gold Personal Relationship [address] [place] [address] Mi Gold Personal Relationship Unknown [phone] Rosalind Mai Personal Relationship Unknown [phone] Vivi Ward Personal Relationship Unknown Care Team Providers Care Veneer Department Manager Name Role Phone Willi Templeton MD Unavailable María Andre MD Unavailable Selene Rodriguez ASSOCIATE DIRECTOR OF NURSING Unavailable Mariah Flowers ASSOCIATE DIRECTOR OF NURSING Unavailable Neyda Beltran MD Unavailable Ryanne Roblero MD Unavailable Unavailable Mi Martin ASSOCIATE DIRECTOR OF NURSING Unavailable [phone] Elijah Serra DO Primary Care Provider [phone] Reason for Visit * Reason Comments Fall Encounter Details Date Type Department Care Team (Late st Contact Info) Description 07/15/2024 8:22 AM EDT - 07/15/2024 2:12 PM EDT Emergency Emergency Department [address] [place] [address] Carlota Huynh MD [facility] Emergency Dept. [address] [place] [address] Multifocal pneumonia (Primary Dx); Hypoxemia [...] materials from doctor or pharmacy Never 04/29/2023 [facility] Utilities Answer Date Recorded In the past 12 months has th e [employer], gas, oil, or water [employer] threatened to shut off services in your [...] No 04/02/2024 Housing Stability Vital Sign Answer Terence e Recorded In the last 12 months, was t here a time when you were not able to pay the mortgage or rent on time? No 04/02/2024 In the past 12 months, how m any times have you moved where you were living? 0 04/02/2024 At any time in the past 12 m [facility], were you homeless or living in a mcc (including now)? No 04/02/2024 Sex and Gender [...] 500 mg by mouth Once Daily. Insulin Hettinger, Disposable, (PEN NEEDLE) 32 gauge x /32 [...] (FLONASE) 50 mcg/Actuation nasal sprayIndications:Al lergic Rhinitis Magnolia 2 Sprays in nose Once Daily. (in [...] %Indications:Sinus drainage,Post-nasal drip,Nasal congestion,Acute recurrent frontal sinusitis Magnolia 2 Sprays in nose Every 4 hours [...] - 07/15/2024 2:12 PM EDT Obdulio Gold [[id number]] (M) - 68 y.o. Note Creation:07/15/2024 Encounter [...] low back pain and headache. Daughter is ORTHOPEDIC DESIGNER at [employer]. Cleaned and dressed abrasions to [...] performed by Jose Ramon Rivera [facility] CORONARY ATHERECTOMY 08/04/2016 Coronary Atherectomy performed by Jose Ramon Rivera MD at [facility] CORONARY INTERVENTION N/A 08/04/2016 Coronary intervention performed by Jose Ramon Rivera MD at [facility] DRUG-ELUTING STENT PLACEMENT N/A 08/04/2016 Drug-eluting stent placement performed by Jose Ramon Rivera MD at [facility] DRUG-ELUTING STENT PLACEMENT N/A 06/02/2009 CORONARY SANDY PLACEMENT performed by Horacio Sherman MD at [facility] HX BROKEN/FX BONES L HIP HX CAPSULE ENDOSCOPY N/A 08/12/2016 CAPSULE ENDOSCOPY (PILL CAM) performed by Willi Templeton MD at [facility] ENDO HX CARDIAC CATHETERIZATION HX CARDIAC SURGERY HX CHOLECYSTECTOMY HX COLONOSCOPY N/A 08/12/2016 COLONOSCOPY performed by Willi Templeton MD at [facility] ENDO HX COLONOSCOPY 08/11/2016 COLONOSCOPY, INCOMPLETE DUE TO POOR PREP performed by Willi Templeton MD at [facility] ENDO HX CORONARY ARTERY BYPASS GRAFT HX EGJ N/A 08/11/2016 EGD /C CYTOLOGY performed by Willi Templeton MD at [facility] ENDO HX EGJ N/A 08/11/2016 EGD /C BIOPSY performed by Willi Templeton MD at [facility] ENDO HX EGJ N/A 03/11/2016 EGD /C HP ONE BIOPSY performed by Willi Templeton MD at [facility] ENDO HX JOINT REPLACEMENT bilateral hip and right knee HX KNEE REPLACEMENT RIGHT HX STERNOTOMY partial HX THYROID SURGERY 1954 HX TONSILLECTOMY LEFT HEART CATH N/A 08/03/2016 Left heart cath performed by Jose Ramon Rivera MD [facility] LEFT HEART CATH N/A 06/02/2009 LEFT HEART CATH performed by Horacio Sherman MD at [facility] Family History Problem Relation Name Age of [...] 500 mg by mouth Once Daily. Insulin Hettinger, Disposable, (PEN NEEDLE) 32 gauge x Ndle [...] fluticasone propionate (FLONASE) 50 mcg/Actuation nasal spray Magnolia 2 Sprays in nose Once Daily. (in each nostril) clopidogreL (PLAVIX) 75 mg tablet Take 1 Tablet by mouth Daily. fluocinonide (LIDEX) 0.05 % ointment Apply twice a day sparingly when necessary, lower legs blood sugar diagnostic (ACCU-CHEK NEVIN PLUS TEST STRP) 1 Each Before meals and at bedtime. cetirizine (ZYRTEC) 10 mg tablet Take 1 Tab by mouth Daily. lancets (Teads LANCETS) 33 gauge Misc 1 Each As directed. Patient to check blood sugar asdirected 3-4 times/day sodium chloride (SALINE NASAL MIST) 0.65 % Magnolia 2 Sprays in nose Every 4 hours [...] Result time 07/15/24 10:16:12 Final result Narrative: [facility] [address] [place] [address] Radiology PATIENT NAME: Obdulio Gold MR#: [id number] PROCEDURE DATE: 07/15/2024 ROOM#: 05 ORDERING PHYS: [...] Hook MD jp TD: 07/15/2024 JOB #: [id number] Radiology Page [address] Head WO Contrast (Final result) Result time 07/15/24 10:13:07 Final result Narrative: [place] [address] Radiology PATIENT NAME: Obdulio Gold MR#: [id number] PROCEDURE DATE: 07/15/2024 ROOM#: 05 ORDERING PHYS: [...] Hook MD jp TD: 07/15/2024 JOB #: [id number] Radiology Page 1 of 1 COPY XR Pelvis AP Only (Final result) Result time 07/15/24 09:16:01 Final result Narrative: [place] [address] Radiology PATIENT NAME: Obdulio Gold MR#: [id number] PROCEDURE DATE: 07/15/2024 ROOM#: 05 ORDERING PHYS: [...] Hook MD jp TD: 07/15/2024 JOB #: [id number] Radiology Page 1 of 1 COPY XR Portable Chest (Final result) Result time 07/15/24 09:17:04 Final result Narrative: [place] [address] Radiology PATIENT NAME: Obdulio Gold MR#: [id number] PROCEDURE DATE: 07/15/2024 ROOM#: 05 ORDERING PHYS: [...] Hook MD jp TD: 07/15/2024 JOB #: [id number] Radiology Page 1 of 1 COPY Consult: ACCEPTED FOR TRANSFER TO ER TO ER. DR. CROWDER. Plan: PT AWAKE, ALERT AND STABLE AT TIME OF TRANSFER TO [facility]. FAMILY NOTIFIED AND PATIENT AGREEABLE TO TRANSFER. DR. GONSALVES, DR. MONTESINOS: WILL NOT ACCEPT PATIENT FOR ADMISSION AT [facility] DUE TO PATIENT TUMBLING DOWN 10-12 STAIRS [...] Another Facility Condition Stable Comment Hospital Area: [facility] [[id number]] Bed Type: Telemetry [5] Bed Reason: Medical [...] Description 11/06/2024 11:00 AM EDT Office Visit [facility] Endocrinology [address], [address] [place] [phone] Micha Washington MD [address] [place] [address] [place] [address] Molly Figueroa PA-C [address] [place] [address] documented as of this encounter Procedures [...] Tomography 07/15/2024 Narrative 07/15/2024 10:13 [place] [address] Radiology PATIENT NAME: Obdulio Gold MR#: [id number] PROCEDURE DATE: 07/15/2024 ROOM#: 05 ORDERING PHYS: [...] Hook MD reena TD: 07/15/2024 JOB #: [id number] Radiology Page 1 of 1 COPY Procedure Note Elijah Clifton MD - 07/15/2024 [place] [address] Radiology PATIENT NAME: Obdulio Gold MR#: [id number] PROCEDURE DATE: 07/15/2024 ROOM#: 05 ORDERING PHYS: [...] Hook MD jp TD: 07/15/2024 JOB #: [id number] Radiology Page 1 of 1COPY Carlota Huynh MD IM CT ORDERABLES Final Result * CT Head WO Contrast (07/15/2024 10:07 AM EDT) Anatomical Region Laterality Modality Head Computed Tomogra phy 07/15/2024 Narrative 07/15/2024 10:10 [place] [address] Radiology PATIENT NAME: Obdulio Gold MR#: [id number] PROCEDURE DATE: 07/15/2024 ROOM#: 05 ORDERING PHYS: [...] Hook MD jp TD: 07/15/2024 JOB #: [id number] Radiology Page 1 of 1 COPY Procedure Note Elijah Clifton MD - 07/15/2024 [facility] [address] [place] [address] Radiology PATIENT NAME: Obdulio Gold MR#: [id number] PROCEDURE DATE: 07/15/2024 ROOM#: 05 ORDERING PHYS: [...] Hook MD reena TD: 07/15/2024 JOB #: [id number] Radiology Page 1 of 1COPY us Carlota Huynh MD [facility] ORDERABLES Final Result * SARS-CoV-2, QL, PCR (Rapid) (07/15/2024 9:21 AM EDT) SARS-CoV-2 RNA Undetected 07/15/2024 10:08 AM EDT [facility] Comment: Reference value: Undetected Testing was performed using the GeneXpert Dx System. Fact sheets for this Emergency Use Authorization (EUA) assay can be found at the following links: For Healthcare Providers: https://www.fda.gov/media/498511/download For Patients: https://www.fda.gov/media/730533/download Test Performed by: [facility],[address] [place] [address], Promotional Representative: Genaro Calvert D.O. CLIA: [id number] 07/15/2024 9:21 AM EDT 07/15/2024 9:25 AM EDT us Carlota Huynh MD MICROBIOLOGY - GENERAL ORDERABL ES Final Result Performing Organization Address City/State/[facility] Co de Phone Number [facility] [address] [place] [address] [place] [address] * XR Portable Chest (07/15/2024 9:09 AM EDT) Anatomical Region Laterality Modality Chest Computed Radiogr aphy 07/15/2024 Narrative 07/15/2024 9:15 [place] [address] Radiology PATIENT NAME: Obdulio Gold MR#: [id number] PROCEDURE DATE: 07/15/2024 ROOM#: 05 ORDERING PHYS: [...] Hook MD jp TD: 07/15/2024 JOB #: [id number] Radiology Page 1 of 1 COPY Procedure Note Elijah Clifton MD - 07/15/2024 [place] [address] Radiology PATIENT NAME: Obdulio Gold MR#: [id number] PROCEDURE DATE: 07/15/2024 ROOM#: 05 ORDERING PHYS: [...] Hook MD reena TD: 07/15/2024 JOB #: [id number] Radiology Page 1 of 1COPY Carlota Huynh MD IMG DIAGNOSTIC IMAGING ORDERABL ES Final Result * XR Pelvis AP Only (07/15/2024 9:09 AM EDT) Anatomical Region Laterality Modality Abdomen, Pelvis, hip Computed Ra diography 07/15/2024 Narrative 07/15/2024 9:[place] [address] Radiology PATIENT NAME: Obdulio Gold MR#: [id number] PROCEDURE DATE: 07/15/2024 ROOM#: 05 ORDERING PHYS: [...] Hook MD jp TD: 07/15/2024 JOB #: [id number] Radiology Page 1 of 1 COPY Procedure Note Elijah Clifton MD - 07/15/2024 [place] [address] Radiology PATIENT NAME: Obdulio Gold MR#: [id number] PROCEDURE DATE: 07/15/2024 ROOM#: 05 ORDERING PHYS: [...] Hook MD jp TD: 07/15/2024 JOB #: [id number] Radiology Page 1 of 1COPY Carlota Huynh [...] AM EDT 07/15/2024 9:01 AM EDT Narrative [facility] RESP CARE - 07/15/2024 9:01 AM EDT Called to and read back by Dr. Carlota Huynh, at 09:01 on 07/15/2024, LBB Carlota Huynh MD RESP CARE LABS Final Result [facility] RESP CARE [address] [place] [address] [facility] [place]ARY, [place] [address] [place] [address] * Troponin I, HS, baseline (07/15/2024 8:54 AM EDT) TROPONIN I, HS, BASELINE 17 0 - 20 07/15/2024 9:23 AM EDT [facility] Comment: For Males 20 ng/L is the AMI cutoff for males. For Females 15 ng/L is the AMI cutoff for females. 07/15/2024 8:54 AM EDT 07/15/2024 8:56 AM EDT Carlota Huynh MD CHEMISTRY ORDERABLES Final Resu lt [facility] [address] [place] [address] [facility] [address] [place] [address] * (ABNORMAL) Comprehensive Metabolic Panel (07/15/2024 8:54 AM EDT) SODIUM 137 135 - 145 mmol/L 07/15/2024 9:23 AM EDT [facility] POTASSIUM 3.3(L) 3.6 - 5.0 mmol/L 07/15/2024 9:23 AM EDT [facility] CHLORIDE 101 101 - 111 mmol/L 07/15/2024 9:23 AM EDT [facility] CO2 26 21 - 31 mmol/L 07/15/2024 9:23 AM EDT [facility] ANION GAP 10 07/15/2024 9:23 AM EDT [facility] GLUCOSE 312(H) 70 - 110 mg/dL 07/15/2024 9:23 AM EDT [facility] CREATININE 1.1 0.6 - 1.2 mg/dL 07/15/2024 9:23 AM EDT [facility] BUN 16 2 - 32 mg/dL 07/15/2024 9:23 AM EDT [facility] CALCIUM 8.4(L) 8.5 - 10.5 mg/dL 07/15/2024 9:23 AM EDT [facility] PROTEIN TOTAL 6.1 6.1 - 7.8 g/dL 07/15/2024 9:23 AM EDT [facility] Albumin 3.2 3.2 - 5.0 g/dL 07/15/2024 9:23 AM EDT [facility] T BILIRUBIN 0.8 0.2 - 1.0 mg/dL 07/15/2024 9:23 AM EDT [facility] ALP 91 42 - 121 [iU]/L 07/15/2024 9:23 AM EDT [facility] AST 31 10 - 42 [iU]/L 07/15/2024 9:23 AM EDT [facility] ALT (SGPT) 33 10 - 60 [iU]/L 07/15/2024 9:23 AM EDT [facility] OSMOLALITY 287 266 - 309 07/15/2024 9:23 AM EDT [facility] A/G Ratio 1.1 07/15/2024 9:23 AM EDT [facility] B/C 15 10 - 20 07/15/2024 9:23 AM EDT [facility] ESTIMATED GFR 66 mL/min 07/15/2024 9:23 AM EDT [facility] Comment: *The estimated Glomerular Filtration Rate(EGFR) [...] Huynh MD CHEMISTRY ORDERABLES Final Resu lt [facility] [address] [place] [address] [facility] [address] [place] [address] * (ABNORMAL) CBC w/Differential (07/15/2024 8:54 AM EDT) WBC 5.8 4.5 - 11.0 10*3/uL 07/15/2024 9:51 AM EDT [facility] RBC 4.02(L) 4.50 - 5.90 10*6/uL 07/15/2024 9:51 AM EDT [facility] HGB 11.6(L) 13.5 - 17.5 g/dL 07/15/2024 9:51 AM EDT [facility] HCT 34.0(L) 37.0 - 53.0 % 07/15/2024 9:51 AM EDT [facility] MCV 84.8 80.0 - 100.0 fL 07/15/2024 9:51 AM EDT [facility] MCHC 34.0 32.0 - 36.0 g/dL 07/15/2024 9:51 AM EDT [facility] MCH 28.8 26.0 - 34.0 pg 07/15/2024 9:51 AM EDT [facility] RDW 17.2 10.7 - 18.7 % 07/15/2024 9:51 AM EDT [facility] MPV 7.1 6.5 - 10.0 fL 07/15/2024 9:51 AM EDT [facility] Platelet Cnt 128(L) 150 - 450 10*3/uL 07/15/2024 9:51 AM EDT [facility] Differential Type Auto 025 9:51 AM EDT [facility] Neutrophils 84.1(H) 35.0 - 66.0 % 07/15/2024 9:51 AM EDT [facility] Lymphocytes 4.9(L) 24.0 - 44.0 % 07/15/2024 9:51 AM EDT [facility] Monocytes 7.2 2.1 - 13.3 % 07/15/2024 9:51 AM EDT [facility] Eosinophils 3.6 0.3 - 5.0 % 07/15/2024 9:51 AM EDT [facility] Basophils 0.2 0.0 - 1.0 % 07/15/2024 9:51 AM EDT [facility] Neutrophils Abs 4.9 1.5 - 8.5 10*3/uL 07/15/2024 9:51 AM EDT [facility] Lymphocytes Abs 0.3(L) 1.1 - 5.0 10*3/uL 07/15/2024 9:51 AM EDT [facility] Monocytes Abs 0.4 0.0 - 1.4 10*3/uL 07/15/2024 9:51 AM EDT [facility] Eosinophils Abs 0.2 0.0 - 0.5 10*3/uL 07/15/2024 9:51 AM EDT [facility] Basophils Abs 0.0 0.0 - 0.1 10*3/uL 07/15/2024 9:51 AM EDT [facility] MDW 20.8(H) 0.0 - 20.0 07/15/2024 9:51 AM EDT [facility] 07/15/2024 8:54 AM EDT 07/15/2024 9:05 AM EDT us Carlota Huynh MD HEMATOLOGY ORDERABLES Final Res ult [facility] [address] [place] [address] [facility] [address] [place] [address] * 12 Lead EKG - Emergency Department (07/15/2024 8:29 AM EDT) 07/15/2024 8:29 AM EDT Narrative [facility] - 07/16/2024 1:31 AM EDT [facility] ED Test Date: 2024-07-15 Pat Name: [facility] Department: EMERGENCY DEPARTMENT Room: 05 Gender: Male Roll Cleaner: : 1955 Requested By: CARLOTA HUYNH Order Number: [id number] Reading MD: David Fritz MD Measurements Intervals Mason Rate: 98 P: 27 MA: 150 QRS: -52 QRSD: 110 T: 82 QT: 354 QTc: 452 Interpretive Statements: Normal sinus rhythm Poor R wave progression Possible old septal VT LVH Nonspecific ST-T wave changes Non specific interventricular conduction delay Electronically Signed On 07-16-2024 01:31:24 EDT by David Fritz MD Procedure Note David Fritz MD - 07/16/2024 [facility] ED Test Date: 2024-07-15 Pat Name: OBDULIO BUTLER Department: EMERGENCYDEPARTMENT Room: 05 Gender: Male Roll Cleaner: : 1955 Requested By: CARLOTA HUYNH Order Number: [id number] Reading MD: David Fritz MD Measurements Intervals Mason Rate: 98 P: 27 MA: 150 QRS: -52 QRSD: 110 T: 82 QT: 354 QTc: 452 Interpretive Statements: Normal sinus rhythm Poor R wave progression Possible old septal VT LVH Nonspecific ST-T wave changes Non specific [...] 0855 (Given - Provid er: Kacy Ambriz, TOY MECHANIC)0900 (Given - Provider: Kacy Ambriz TOY MECHANIC) documented in this encounter Care Teams Veneer Department Manager Relationship Specialty Start Date End Date Elijah Serra DO [address] [place] [address] PCP - General Family Medicine 07/21/23 Willi Templeton MD [address] [place] [address] Gastroenterology 02/25/16 María Andre MD [address] [facility] [place] [address] Gastroenterology 03/08/16 Selene Rodriguez APRN [address] [place] [address] [address] [place] [address] Gastroenterology 08/23/16 Mariah Flowers APRN [address] [address] [place] [address] Nurse Practitioner 08/26/16 Neyda Beltran MD [address] [facility] [place] [address] Nephrology 03/17/17 Ryanne Roblero MD [address] [address] [facility] [place] [address] Rheumatology 03/01/18 Mi Martin APRN [address] [place] [id number] Nurse Practitioner Nurse Practitioner 04/16/19 documented as of this encounter
--- OUTSIDE RECORDS SUMMARY | 2024-07-15 16:26 | XMS_ITS | Encounter Summary ---
Author Organization Healthcare Address [address] [id number] Care Team Providers Care Lead Mobile Developer Name Role Phone Elijah Serra DO Primary Care Provider [phone] Reason for Referral * Cardiac Stress Testing (Routine) - Closed Specialty Diagnoses / Procedures Referred By Contac t Referred To Contact Cardiology Diagnoses Fall, initial encounter Procedures Adult Patch Monitor - 14 Day Edgrado Corbett MD [address] [place] [address] Phone: tel: fax: Referral ID Status Reason Start Date Expiration Date Visits Re quested Visits Authorized [id number] Closed 07/20/2024 01/19/2026 1 1 * Consultation (Routine) - Authorized Specialty Diagnoses / Procedures Referred By Contac t Referred To Contact Primary Care Diagnoses Multifocal pneumonia Edgardo Corbett MD [address] [place] [address] Phone: tel: fax: [facility] [address] [place] [phone] Phone: tel: Referral ID Status Reason Start Date Expiration Date Visits Requested Visits Authorized [id number] Authorized Specialty Services Required 07/20/2024 01/19/2026 1 1 * Consultation (Routine) - Authorized Specialty Diagnoses / Procedures Referred By Contac t Referred To Contact Diagnoses Multifocal pneumonia Edgardo Corbett MD [address] [place] [address] Phone: tel: fax: Referral ID Status Reason Start Date Expiration Date V isits Requested Visits Authorized [id number] Authorized 07/20/2024 01/19/2026 1 1 * Cardiac Stress Testing (Routine) - Closed Specialty Diagnoses / Procedures Referred By Contac t Referred To Contact Cardiology Diagnoses Fall, initial encounter Procedures Adult Patch Monitor - 14 Day Edgardo Corbett MD [address] [place] [address] Phone: tel: fax: Referral ID Status Reason Start Date Expiration Date Visits Re quested Visits Authorized [id number] Closed 07/20/2024 01/19/2026 1 1 Reason for Visit * Reason Comments Shortness of Breath * Auth/Cert (Routine) Specialty Diagnoses / Procedures Referred By Roberta t Referred To Contact Diagnoses Multifocal pneumonia Fall Vishal Cardona MD [address] [place] [address] Phone: tel: fax: [facility] [address] [place] [address] Phone: tel: Referral ID Status Reason Start Date Expiration Date Visits Re quested Visits Authorized [id number] 1 1 Encounter Details Date Type Department Care Team (Latest Contact Info) Description 07/15/2024 4:26 PM EDT - 07/20/2024 2:59 PM EDT Hospital Encounter [facility] In[facility] [address] [place] [address] Chava Stephenson MD [address] [place] [address] Vishal Cardona MD [address] [place] [address] Dc Torres MD [address] [place] [address] Edgardo Corbett MD [address] [place] [address] Multifocal pneumonia (Primary Dx); Fall, [...] and Family Not on file 07/16/2024 Attends [employer] Not on file 07/16 Active Member [...] any time in the past [address] [facility], were you homeless or living in a group home (including now)? No 07/16/2024 Utilities Answer Date [...] mouth 3 times a day. HYDROcodone-acet aminophen (Ithaca) 10-325 MG tablet Take 1 tablet by [...] Note Soledad Gold 68 y.o. male CSN: [id number] Admission: 07/15/2024 4:26 PM Primary Problem: Multifocal pneumonia Primary Securities Clerk: Primary Caregiver: Self Assistance Available at Discharge: Availability of Care Givers (#Hours): 24 hours (pt's is available 30/08 and will assist pt at home as needed) Family/Securities Clerk(s) Willingness Assessed to care for patient at home: Yes (pt's present at the bedside and confirmed that pt will have needed assistnace at home) Family/Securities Clerk(s) Readiness Assessed to care for patient at [...] Medicare Second Notice Recieved By: patient Follow-up: [facility] [address] [facility] [address] James Connolly MD [address] [facility] [place] [address] Elijah Serra, DO [address] [facility] [id number] Schedule an appointment as soon as possible [...] from the original note were not included. [id number] Pneumonia (Adult) Pneumonia is an infection inside [...] you can't wash your hands, use hand filter plant supervisor with at least 60% alcohol. ? Cover [...] can put a child at risk for Wai syndrome. This is a rare but very [...] better Last Reviewed Date: 2023 00:00:00 ?? [id number] [employer]. All rights reserved. This information is not [...] [facility]ly [facility] [id number] Referring provider name and address: James Connolly MD [address] [place] [address] Chief Concern, Brief History of Present Illness, [...] Ejection Fraction, Ischemic follows with Cardiology at [facility] 04/03/24 ECHO: LVEF 50-55%, mild LVH, [...] disease, Stage 3a follows with Nephrology at [facility] #) Rheumatoid arthritis follows with Rheumatology at [facility]. Home regimen is Ithaca 10 Q6h PRN continue Hydroxychloroquine #) Chronic [...] MG chewable tablet Chew 1 tablet daily. vyrywyn-uelargtkxwqrg-zyfleged 250-250-65 MG tablet Commonly known as: Excedrin [...] HYDROcodone-acetaminophen 10-325 MG tablet Commonly known as: Ithaca Take 1 tablet by mouth every 6 [...] Your Medications These medications were sent to [facility] [place], [place] - [address] [facility] [id number] amoxicillin-clavulanate 875-125 MG tablet Ese BreauxoStar 300 UNIT/ML injection pen Discharge Diagnosis Medical Problems Active and Resolved Hospital Problems Hospital Coronary arteriosclerosis Overview Addendum 07/15/2024 10:31 PM by Victor M Deshpande APRN s/p 5V CABG (2001), SANDY x2 (2009), SANDY x3 (2016) Chronic diastolic heart failure ([facility]) Bronchiectasis Acquired thrombocytopenia ([facility]) Rheumatoid arthritis ([facility]) Overview Signed 07/15/2024 7:33 PM by Victor M Deshpande APRN hydroxychloroquine, cymbalta f/w Rheum Oropharyngeal dysphagia Overview Signed 07/15/2024 7:33 PM by Victor M Deshpande APRN EGD 01/2021, dilated, recc 3y f/u Stage 3a chronic kidney disease ([facility]) * (Principal) Multifocal pneumonia Acute hypoxic respiratory [...] Progressing * Query Clarification Note - Edgardo Crobett MD - 07/19/2024 1:55 PM EDT The [...] Ejection Fraction, Ischemic follows with Cardiology at [facility] 04/03/24 ECHO: LVEF 50-55%, mild LVH, [...] disease, Stage 3a follows with Nephrology at [facility] - Monitor #) Rheumatoid arthritis follows with Rheumatology at [facility]. Home regimen is Ithaca 10 Q6h PRN /Plan: - continue Hydroxychloroquine - Oxycodone 10mg PO Q6h PRN #) Chronic Anemia -trend Hgb, transfuse to keep >7 #) Fluids/Nutrition He is already DNR/DNI, and he may elect for regular diet - Puree diet #) Prophylaxis - Enoxaparin subcu #) Discharge Planning - Halter monitor on discharge #) Code Status DNR/DNI Edgardo Corbett MD PhD Division of Hospital Medicine [phone] [1] acetaminophen, 1,000 mg, Oral, q8h allopurinol, [...] Transfer Exam: Sit to stand Level of [place]: Stand-by assist Physical/Nonphysical Assist: Verbal Cues, Set-up required, Minimal cues Assistive Device: Walker, rolling Transfer Exam: Stand to Sit Level of [place]: Stand-by assist Physical/Nonphysical Assist: Verbal Cues, Minimal [...] to promote posture, AD management/positioning. Standardized Assessments [facility] 6-Clicks Mobility Assessment Difficulty patient has turning [...] 3-5 steps with a railing?: A little [facility] 6-Clicks Mobility Assessment Total : 23 Assessment [...] Note Soledad Gold 68 y.o. male CSN: [id number] Admission: 07/15/2024 4:26 PM Primary Problem: Multifocal [...] admission Level of Mobility Ambulatory- community Mobility [place] Independent gait with device History of Falls [...] therapy with good participation. Visitors Present No Contact Finger Assembler (if applicable) OBJECTIVE PAIN Pain Score (0-10): [...] [facility]. [facility] able to ambulate in room and hallway equally more than house hold distances using a rw and cga to sba. Level of [place] Adaptive Equipment Utilized Comments Feeding Grooming Setup Standing sinkside Bathing Upper Body Dressing Lower Body Dressing Sock Level of Assistance: Minimum assistance Toileting SBA Toilet IADLs Health Management Community Re-Entry BALANCE Postural Appearance Posture: Within Functional Limits, Stooped posture, Forward head INTERVENTIONS Level of [place] Balance Support Comments Static Sit Standby assist [...] weight shifting to promote safety. Level of [place] Physical/Non-physical Assist Adaptive Equipment Utilized Rolling/ Turning [...] Note Soledad Gold 68 y.o. male CSN: [id number] Room/Bed [id number]/[id number] Nutrition evaluation type: screen Reason for evaluation: MST 2 Hospital course: 68 yo male who transferred from OSH after fall down stairs. Past medical/ surgical history: CAD s/p 5V CABG in 2001/SANDY x2 in 2009/SANDY x3 in 2017, chronic HFrEF, HTN, HLD, IDDM c/b DPN, CKD3a, gout, RA on plaquenil, chronic pain on Ithaca, debility (cane/walker at baseline), MICAELA (intolerant of [...] Supplemental oxygen O2 Delivery Method: Nasal cannula [place] Coma Scale Score: 15 Casey Scale Score: [...] (183 lb 13.8 oz) BMI (Calculated): 27.14 Clayton Body Weight (kg): 72.7 Percent Clayton Body Weight: 115 Wt Readings from Last 10 Encounters: 07/19/24 83.4 kg (183 lb 13.8 oz) 02/17/24 89 kg (196 lb 4.8 oz) 08/31/23 86.2 kg (190 lb) 02/03/23 90.7 kg (200 lb) Estimated Needs: Metabolic Cart Study Results: Current Nutrition Intake: Diet Order: Adult Diet Diet Texture: Pureed 4 Adult Carbohydrate Restriction: Consistent CHO 2 ([id number] Adelfo, 80 g/meal) Adult Sodium Restriction: 2,000 mg Na Fluid Consistency: Moderately Thick 3 (Honey) Percent Meals Eaten (%): 50-100% x 5 meals Diet Experience and Nutrition History: Diet Education Provided: Will monitor Pertinent home medications: Reviewed [facility] needs: Nutrition Focused Physical Exam: Unable to Complete Exam: Patient unable to participate Physical exam performed on (date): Assessment of Malnutrition: Nutrition Problem: Swallowing difficulty related to dysphagia as evidenced by altered textures/consistencies. Status of Nutrition Diagnosis: New Nutrition Interventions and Recommendations: -Diet texture/consistency per SALES CLERK FOOD -CC2/ 2g Na restrictions -Encourage PO intake and document in flowsheet Nutrition Monitoring and Goals: -PO intake >/= 75% of most meals -Nutrition labs trending WDL -glycemic control - Acuity Level: 1 Stephany Modi, RD, LD [1] Past Medical History: Diagnosis Date Acquired thrombocytopenia ([facility]) 07/15/2024 Atherosclerosis of aorta ([facility]) 12/12/2018 Benign essential hypertension 12/12/2018 Benign prostatic hyperplasia 12/27/2023 Bronchiectasis 11/05/2022 Chronic diastolic heart failure ([facility]) 12/21/2021 Coronary arteriosclerosis 07/13/2009 s/p CABG, SANDY x2 (2009), SANDY x3 (2017) Hyperparathyroidism due to renal insufficiency ([facility]) 07/01/2020 NM parathyroid normal Macular degeneration 12/19/2020 Retina associates Mixed hyperlipidemia 07/13/2009 Nephrolithiasis 12/12/2018 Oropharyngeal dysphagia 01/06/2021 EGD 01/2021, dilated, rec 3y f/u Pain of left hip joint 08/27/2022 Post-surgical hypothyroidism 03/19/2019 left and isthmus 1970 Primary osteoarthritis involving multiple joints 12/12/2018 ) 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 07/21/2023 Rheumatoid arthritis ([facility]) 09/14/2018 hydroxychloroquine, cymbalta f/w Rheum Sensorineural hearing loss (SNHL) of both ears 02/17/2024 f/w ENT Sleep apnea 06/19/2021 intolerant of CPAP Spondylolisthesis of lumbar region 10/23/2020 f/w Dr Reynoso Stage 3a chronic kidney disease ([facility]) 07/14/2022 Tear of supraspinatus tendon 09/18/2020 R, full thickness MRI 07/2020 Type 1 diabetes mellitus with diabetic polyneuropathy ([facility]) 06/19/2020 [2] Past Surgical History: Procedure Laterality [...] Ejection Fraction, Ischemic follows with Cardiology at [facility] 04/03/24 ECHO: LVEF 50-55%, mild LVH, [...] disease, Stage 3a follows with Nephrology at [facility] - Monitor #) Rheumatoid arthritis follows with Rheumatology at [facility]. Home regimen is Ithaca 10 Q6h PRN /Plan: - continue Hydroxychloroquine - Oxycodone 10mg PO Q6h PRN #) Chronic Anemia -trend Hgb, transfuse to keep >7 #) Fluids/Nutrition He is already DNR/DNI, and he may elect for regular diet - Puree diet #) Prophylaxis - Enoxaparin subcu #) Discharge Planning - Halter monitor on discharge #) Code Status DNR/DNI Edgardo Corbett MD PhD Division of Hospital Medicine [phone] [1] acetaminophen, 1,000 mg, Oral, q8h allopurinol, [...] treatment. Participants in Care Family/Caregiver Present: No Contact Finger Assembler: Not Applicable Presentation Lines and Tubes: Telemetry, [...] Mobility Bed Mobility Exam: Rolling/Turning Level of [place]: Stand-by assist Physical/Nonphysical Assist: Supervision Bed Mobility Exam: Scooting/Bridging Level of [place]: Stand-by assist Physical/Nonphysical Assist: Supervision Bed Mobility Exam: Supine to Sit Level of [place]: Stand-by assist Physical/Nonphysical Assist: Verbal Cues, HOB elevated, Supervision Assistive Device: Bed rails Transfers Transfer Exam: Sit to stand Level of [place]: Contact guard Physical/Nonphysical Assist: Verbal Cues, Set-up required, Minimal cues Assistive Device: Walker, rolling Transfer Exam: Stand to Sit Level of [place]: Contact guard Physical/Nonphysical Assist: Set-up required, Verbal [...] increased ADL and IADL participation. Access Code: [email or web address] URL: [email or web address] Date: 07/18/2024 Prepared by: Vivi Brunson Exercises [...] AM. * Progress Notes - Mo Wolf, [facility]-SALES CLERK FOOD - 07/18/2024 8:58 AM EDT INITIAL MODIFIED [...] CABG in 2001/SANDY x2 in 2009/SANDY x3 [id number], chronic HFrEF, HTN, HLD, IDDM c/b DPN, CKD3a, gout, RA on plaquenil, chronic pain on Ithaca, debility (cane/walker at baseline), MICAELA (intolerant of [...] Ejection Fraction, Ischemic follows with Cardiology at [facility] 04/03/24 ECHO: LVEF 50-55%, mild LVH, [...] disease, Stage 3a follows with Nephrology at [facility] - Monitor #) Rheumatoid arthritis follows with Rheumatology at [facility]. Home regimen is Ithaca 10 Q6h PRN /Plan: - continue Hydroxychloroquine - Oxycodone 10mg PO Q6h PRN #) Chronic Anemia -trend Hgb, transfuse to keep >7 #) Fluids/Nutrition - Easy to Chew diet #) Prophylaxis - SCDs #) Code Status DNR/DNI Edgardo Corbett MD PhD Division of Hospital Medicine [phone] [1] acetaminophen, 1,000 mg, Oral, q8h allopurinol, [...] belongings on exit. Coral Crystal RN 07/16/24 [id number] * Progress Notes - Ld Mendez CCC-SALES CLERK FOOD - 07/16/2024 1:30 PM EDT Speech Language [...] CABG in 2001/SANDY x2 in 2009/SANDY x3 [id number], chronic HFrEF, HTN, HLD, IDDM c/b DPN, CKD3a, gout, RA on plaquenil, chronic pain on Ithaca, debility (cane/walker at baseline), MICAELA (intolerant of CPAP), hypothyroidism, BPH, GERD, and esophageal stricture c/b oropharyngeal dysphagia s/p last dilatation around a year ago transferred from OSH after fall down stairs. 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 Coronary arteriosclerosis Mild cognitive impairment Chronic diastolic heart failure ([facility]) Chronic arthritis due to and not concurrent with rheumatic fever ([facility]) Calcium pyrophosphate deposition disease Bronchiectasis Benign prostatic hyperplasia Benign essential hypertension Acquired thrombocytopenia ([facility]) Atherosclerosis of aorta ([facility]) Rheumatoid arthritis ([facility]) Hyperparathyroidism due to renal insufficiency ([facility]) Macular degeneration Mixed hyperlipidemia Sleep apnea Oropharyngeal dysphagia Post-surgical hypothyroidism 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 Sensorineural hearing loss (SNHL) of both ears Spondylolisthesis of lumbar region Stage 3a chronic kidney disease ([facility]) Type 1 diabetes mellitus with diabetic polyneuropathy ([facility]) Multifocal pneumonia Acute hypoxic respiratory failure Fall (on) (from) other stairs and steps, initial encounter Anemia of chronic disease Traumatic hematoma of flank [2] Past Medical History: Diagnosis Date Acquired thrombocytopenia ([facility]) 07/15/2024 Atherosclerosis of aorta ([facility]) 12/12/2018 Benign essential hypertension 12/12/2018 Benign prostatic hyperplasia 12/27/2023 Bronchiectasis 11/05/2022 Chronic diastolic heart failure ([facility]) 12/21/2021 Coronary arteriosclerosis 07/13/2009 s/p CABG, SANDY x2 (2009), SANDY x3 (2017) Hyperparathyroidism due to renal insufficiency ([facility]) 07/01/2020 NM parathyroid normal Macular degeneration 12/19/2020 Retina associates Mixed hyperlipidemia 07/13/2009 Nephrolithiasis 12/12/2018 Oropharyngeal dysphagia 01/06/2021 EGD 01/2021, dilated, rec 3y f/u Pain of left hip joint 08/27/2022 Post-surgical hypothyroidism 03/19/2019 left and isthmus 1970 Primary osteoarthritis involving multiple joints 12/12/2018 ) 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 07/21/2023 Rheumatoid arthritis ([facility]) 09/14/2018 hydroxychloroquine, cymbalta f/w Rheum Sensorineural hearing loss (SNHL) of both ears 02/17/2024 f/w ENT Sleep apnea 06/19/2021 intolerant of CPAP Spondylolisthesis of lumbar region 10/23/2020 f/w Dr Reynoso Stage 3a chronic kidney disease ([facility]) 07/14/2022 Tear of supraspinatus tendon 09/18/2020 R, full thickness MRI 07/2020 Type 1 diabetes mellitus with diabetic polyneuropathy ([facility]) 06/19/2020 [3] Past Surgical History: Procedure Laterality [...] Acute hypoxic respiratory failure 07/15/2024 Acquired thrombocytopenia ([facility]) 07/15/2024 Fall (on) (from) other stairs and [...] (12/27/2023), Bronchiectasis (11/05/2022), Chronic diastolic heart failure ([facility]) (12/08), Coronary arteriosclerosis (07/13/2009), Hyperparathyroidism due to renal insufficiency ([facility]) (07/01/2020), Macular degeneration (12/19/2020), Mixed hyperlipidemia (07/13/2009), Nephrolithiasis (12/12/2018), Oropharyngeal dysphagia (01/06/2021), Pain of left hip joint (08/27/2022), Post-surgical hypothyroidism (03/19/2019), Primary osteoarthritis involving multiple joints (12/12/2018), 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 Past Surgical History Patient has a [...] steps. Participants in Care Family/Caregiver Present: No Contact Finger Assembler: Not Applicable Presentation Oxygen Therapy: Supplemental oxygen [...] admission Level of Mobility: Ambulatory- community Mobility [place]: Independent gait with device History of Falls: [...] Mobility Bed Mobility Exam: Scooting/Bridging Level of [place]: Contact guard (Towards edge of bed) Physical/Nonphysical Assist: Verbal Cues Bed Mobility Exam: Supine to Sit Level of [place]: Contact guard Physical/Nonphysical Assist: Verbal Cues, HOB elevated, Moderate cues Assistive Device: Other (drawsheet) Bed Mobility Exam: Sit to Supine Level of [place]: (Not formally assessed 2/2 pt being left up in chair at end of therapy session.) Transfers Transfer Exam: Sit to stand Level of [place]: Contact guard (x2) Physical/Nonphysical Assist: Verbal Cues, Set-up required Assistive Device: Hand held assist Transfer Exam: Stand to Sit Level of [place]: Contact guard (x2) Physical/Nonphysical Assist: Set-up required, Verbal Cues Assistive Device: Hand held assist Transfer Exam: Bed to Chair/Chair to Bed Level of [place]: Contact guard Physical/Nonphysical Assist: Verbal Cues, Set-up [...] activity deferred. OT encouraged functional mobility with staff home therapy rn to toilet for increased tolerance to positional changes and progression towardsbaseline with toileting tasks. Standardized Assessments [facility] 6-Click Daily Activities Help from Other: Don/Doff Regular Lower Body Clothings: A lot Help From Other: Bathing: A lot Help From Other: Toileting: A lot Help From Other: Don/Doff Upper Body Clothings: Little Help From Other: Grooming: Little Help From Other: Eating Meals: None [facility] 6 Click - Daily Activities Score: [...] (12/27/2023), Bronchiectasis (11/05/2022), Chronic diastolic heart failure ([facility]) (12/08), Coronary arteriosclerosis (07/13/2009), Hyperparathyroidism due to renal insufficiency ([facility]) (07/01/2020), Macular degeneration (12/19/2020), Mixed hyperlipidemia (07/13/2009), Nephrolithiasis (12/12/2018), Oropharyngeal dysphagia (01/06/2021), Pain of left hip joint (08/27/2022), Post-surgical hypothyroidism (03/19/2019), Primary osteoarthritis involving multiple joints (12/12/2018), 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 Past Surgical History Patient has a [...] evaluation. Participants in Care Family/Caregiver Present: No Contact Finger Assembler: Not Applicable Presentation Oxygen Therapy: Supplemental oxygen [...] admission Level of Mobility: Ambulatory- community Mobility [place]: Independent gait with device History of Falls: No (unsure) ADL Performance: Independent Patient/Family Goals Return home at [facility]. Objective Pain Pt reports having 6/10 low [...] mobility. Bed Mobility Exam: Rolling/Turning Level of [place]: Contact guard Physical/Nonphysical Assist: Verbal Cues, Minimal cues Assistive Device: Bed rails Bed Mobility Exam: Scooting/Bridging Level of [place]: Contact guard (Towards edge of bed) Physical/Nonphysical Assist: Verbal Cues Bed Mobility Exam: Supine to Sit Level of [place]: Contact guard Physical/Nonphysical Assist: Verbal Cues, HOB elevated, Moderate cues Assistive Device: Other (drawsheet) Bed Mobility Exam: Sit to Supine Level of [place]: (Not formally assessed 2/2 pt being left up in chair at end of therapy session.) Transfers Transfer Interventions: Pt given verbal cues to push up from the side of the bed to ensure standingposition. Pt given verbal cues to reach back for the side of the bed prior to sitting down. Transfer Exam: Sit to stand Level of [place]: Contact guard (x2) Physical/Nonphysical Assist: Verbal Cues, Set-up required Assistive Device: Hand held assist Transfer Exam: Stand to Sit Level of [place]: Contact guard (x2) Physical/Nonphysical Assist: Set-up required, Verbal Cues Assistive Device: Hand held assist Transfer Exam: Bed to Chair/Chair to Bed Level of [place]: Contact guard Physical/Nonphysical Assist: Verbal Cues, Set-up [...] space Standardized Assessments Standardized Assessments Standardized Assessments: [facility] 6-Clicks Mobility Assessment [facility] 6-Clicks Mobility Assessment Difficulty patient has turning [...] climbing 3-5 steps with a railing?: Unable [facility] 6-Clicks Mobility Assessment Total : 14 No [...] Note Soledad Gold 68 y.o. male CSN: [id number] Admission: 07/15/2024 4:26 PM Primary Problem: Multifocal pneumonia Electronic Plotting System Operator reviewed chart and spoke with patient to complete this Initial Case Management Assessment. PCP: Elijah Serra DO Emergency Contact: Extended Emergency Contact Information Primary Emergency Contact: Stepan Gold Mobile Relation: Spouse Secondary Emergency Contact: Mi Gold Mobile Relation: Daughter Preferred language: Macedonian Contact Finger Assembler needed? No Insurance: Primary Visit Coverage Payer Plan Sponsor Code Group Number Group Name MEDICARE MEDICARE A & B Primary Visit Coverage Subscriber Subscriber ID Subscriber Name Subscriber SSN Subscriber Address [id number] SOLEDAD GOLD [id number] [address] [id number] Secondary Visit Coverage Payer Plan Sponsor Code Group Number Group Name [employer] MEDIC[employer] SUPPLEMENT 94 Secondary Visit Coverage Subscriber Subscriber ID Subscriber Name Subscriber SSN Subscriber Address [id number] NOEMÍDENNARD [id number] [place], [place] [id number] Patient information: Primary Caregiver: Self Support System: Immediate family ( Stepan) Daily Living Activities: Functional Status: Independent Living Arrangements: Family [address] [facility] [address] Current DME: Equipment Currently Used at Home: cane, quad, commode chair, walker, rollator, wheelchair, manual, nebulizer Anticipated Discharge Date: TBD Patient's Discharge Goal: To d/c home once medically appropriate Assistance Available at Discharge: pt's as needed Discharge Transport: family Follow Up Transport: family Home Health / Home Infusion / Outpatient Dialysis Services[facility] Living Will/Advance Directive/Power of Bull Riveter /Guardian: Have you reviewed your Advance Directive [...] needs. Pt's EC is his Stepan Gold, ph#[phone]. RN CM will continue to follow and [...] Normocephalic and atraumatic. Comments: Contusion to left mosque Right Ear: Hearing normal. Left Ear: Hearing normal. Nose: Nose normal. Mouth/Throat: Lips: [place]. Mouth: Mucous membranes are dry. Pharynx: Oropharynx [...] CABG in 2001/SANDY x2 in 2009/SANDY x3 [id number], chronic HFrEF, HTN, HLD, IDDM c/b DPN, CKD3a, gout, RA on plaquenil, chronic pain on [place], debility (cane/walker at baseline), MICAELA (intolerant of [...] negative COVID-19 PCR -Azithromycin and Rocephin given lpta -Procalcitonin >4 -Nasopharyngeal PCR negative -Strep Pneumo and Legionella Urine Ag negative PLAN -continue supplemental oxygen-taper as tolerated - continuous pulse ox -BCX2, sputum Cx -Empiric Zosyn -Duoneb q6h x 24h, then PRN -Hypertonic 3% saline neb twice daily PRN -Mucinex 600 mg twice daily PRN -RT for chest physiotherapy Oropharyngeal dysphagia -Last esophageal dilation around 1yr ago PLAN -Aspiration precautions -SALES CLERK FOOD consulted - [facility] [place] Fall (on) (from) other stairs and [...] no inpatient intervention. Patient can see his special events manager outpatient - continue home valacyclovir possibly for [...] Hgb, transfuse to keep >7 Acquired thrombocytopenia ([facility]/HCC) -Plt 114, INR 1.1 PLAN -transfuse to keep Plt >50 if actively bleeding Chronic diastolic heart failure ([facility]) -follows with Cardiology at [facility] -04/03/24 ECHO: LVEF 50-55%, mild LVH, grade I/IV or mild diastolic dysfunction -NTproBNP 933 -clinically dry on exam PLAN -hold furosemide and gdmt for now given soft bp -2g Na diet, daily weight -hold ASA/Plavix while monitor hematoma/Hgb -continue rosuvastatin Stage 3a chronic kidney disease ([facility]/HCC) -avoid NSAIDS/nephrotoxins, renally dose meds based on EGFR -strict I/O, trend Cr Rheumatoid arthritis ([facility]) -follows with Rheumatology at [facility] PLAN -continue plaquenil VTE Prophylaxis: This [...] interpreted the available imaging including x-rays and compliance monitor vitals, POCT, serum electrolytes - maintain K 4-5 and Mg > 2 fall precautions, bleeding precautions, aspiration precautions, Elevate HOB, Frequent turn and position to prevent pressure sores, ambulate as tolerated, diet as tolerated. adjust doses of medications that require hepatic/renal adjustment Code status DNR/DNI Dc Torres MD Department of Internal Medicine Division of [facility] Medicine 07/16/2024 [1] acetaminophen, 1,000 mg, Oral, [...] negative COVID-19 PCR -Azithromycin and Rocephin given lpta -Afebrile, 92% 2L NC, BP trending soft in ED -WBC 9.39, ANC 7.37 -VBG 7.45/44/51 -Procalcitonin >4 -Nasopharyngeal PCR negative -Strep Pneumo and Legionella Urine Ag negative PLAN -admit to at [place] on PCU with telemetry, continuous pulse ox [...] heart failure (CMS/HCC) -follows with Cardiology at [facility] -04/03/24 ECHO: LVEF 50-55%, mild LVH, [...] 12:43 AM EDT Associated Problem(s): Acquired thrombocytopenia ([facility]) -Plt 114, INR 1.1 PLAN -transfuse to keep Plt >50 if actively bleeding * Assessment & Plan Note - Victor M Deshpande APRN - 07/16/2024 12:43 AM EDT Associated Problem(s): Rheumatoid arthritis ([facility]) -follows with Rheumatology at [facility] PLAN -continue plaquenil and * Assessment & Plan Note - Victor M Deshpande APRN - 07/16/2024 12:43 AM EDT Associated Problem(s): Stage 3a chronic kidney disease ([facility]) -follows with Nephrology at [facility] -Cr 1.03, EGFR 78.1 -> unknown [...] dilation around 1yr ago PLAN -Aspiration precautions -SALES CLERK FOOD consulted * H&P - Victor M Deshpande APRN - 07/15/2024 8:00 PM EDTAssociated Order(s): Consult to [facility] Images from the original note were not included. Consult to [facility] Consult performed by: Victor M Deshpande APRN Consult ordered by: Chava Stephenson MD Reason for consult: Fall, multifocal PNA Subjective Chief complaint Shortness of breath History Of Present Illness Soledad Gold is a 68 y.o. male with past history of CAD s/p 5V CABG in 2001/SANDY x2 in 2009/SANDY x3 ot1813, chronic HFrEF, HTN, HLD, IDDM c/b DPN, CKD3a, gout, RA on plaquenil, chronic pain on [place], debility (cane/walker at baseline), MICAELA (intolerant of [...] Normocephalic and atraumatic. Comments: Contusion to left mosque Right Ear: Hearing normal. Left Ear: Hearing normal. Nose: Nose normal. Mouth/Throat: Lips: [place]. Mouth: Mucous membranes are dry. Pharynx: Oropharynx [...] 94%. Results Review {Vanishing Link Review Results :[id number] I have reviewed the latest lab and imaging results. Assessment & Plan Multifocal pneumonia -Hx PNA x2 in past 3 months, improves on Abx but never fully resolves -Last esophageal dilation 1y ago, non-compliant with thickened liquids -OSH CT noted multifocal PNA, with negative COVID-19 PCR -Azithromycin and Rocephin given lpta -Afebrile, 92% 2L NC, BP trending soft in ED -WBC 9.39, ANC 7.37 -VBG 7.45/44/51 -Procalcitonin >4 -Nasopharyngeal PCR negative -Strep Pneumo and Legionella Urine Ag negative PLAN -admit to at [place] on PCU with telemetry, continuous pulse ox [...] dilation around 1yr ago PLAN -Aspiration precautions -SALES CLERK FOOD consulted Fall (on) (from) other stairs and [...] if actively bleeding Chronic diastolic heart failure ([facility]) -follows with Cardiology at [facility] -04/03/24 ECHO: LVEF 50-55%, mild LVH, [...] -continue rosuvastatin Stage 3a chronic kidney disease ([facility]) -follows with Nephrology at [facility] -Cr 1.03, EGFR 78.1 -> unknown baseline Cr PLAN -UA pending -avoid NSAIDS/nephrotoxins, renally dose meds based on EGFR -strict I/O, trend Cr Rheumatoid arthritis ([facility]) -follows with Rheumatology at [facility] PLAN -continue plaquenil and Venous thromboembolism [...] Past Medical History: Diagnosis Date Acquired thrombocytopenia ([facility]) 07/15/2024 Atherosclerosis of aorta ([facility]) 12/12/2018 Benign essential hypertension 12/12/2018 Benign prostatic hyperplasia 12/27/2023 Bronchiectasis 11/05/2022 Chronic diastolic heart failure ([facility]) 12/21/2021 Coronary arteriosclerosis 07/13/2009 s/p CABG, SANDY x2 (2009), SANDY x3 (2016) Hyperparathyroidism due to renal insufficiency ([facility]) 07/01/2020 NM parathyroid normal Macular degeneration 12/19/2020 [facility] associates Mixed hyperlipidemia 07/13/2009 Nephrolithiasis 12/12/2018 Oropharyngeal dysphagia 01/06/2021 EGD 01/2021, dilated, rec 3y f/u Pain of left hip joint 08/27/2022 Post-surgical hypothyroidism 03/19/2019 left and isthmus 1970 Primary osteoarthritis involving multiple joints 12/12/2018 ) 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 07/21/2023 Rheumatoid arthritis ([facility]) 09/14/2018 hydroxychloroquine, cymbalta f/w Rheum Sensorineural hearing loss (SNHL) of both ears 02/17/2024 f/w ENT Sleep apnea 06/19/2021 intolerant of CPAP Spondylolisthesis of lumbar region 10/23/2020 f/w Dr Reynoso Stage 3a chronic kidney disease ([facility]) 07/14/2022 Tear of supraspinatus tendon 09/18/2020 R, full thickness MRI 07/2020 Type 1 diabetes mellitus with diabetic polyneuropathy ([facility]) 06/19/2020 [2] Past Surgical History: Procedure Laterality [...] Intravenous Canceled Entry 07/15/2024 1711 EDT HYDROcodone-acetaminophen ([place]) 5-325 MG per tablet 10 mg of [...] documented in this encounter Plan of Treatment Pending Results Name Type Priority Associated Diagnoses Date /Time Adult Patch Monitor - 14 Day Cardiac Services Routine Fall, initial encounter 07/20/2024 1:59 PM EDT Scheduled Orders Name Type Priority Associated Diagnoses Order Schedule Respiratory Culture and Gram Stain Microbiology STAT STAT (Lab) for 1 Occurrences starting 07/15/2024 until 07/15/2024 Adult Patch Monitor - 14 Day Cardiac Services Routine Fall, initial encounter Expected: 07/20/2024 (Approximate), Expires: 01/21/2026 Adult Patch Monitor - 14 Day Cardiac Services Routine Fall, initial encounter Once for 1 Occurrences starting 07/20/2024 until 07/20/2024 Scheduled Referrals Name Type Priority Associated Diagnoses Order Schedule Ambulatory referral for Follow Up Care Outpatient Referral Routine Multifocal pneumonia 1 Occurrences starting 07/20/2024 until 01/21/2026 Discharge Ambulatory referral - High Risk Outpatient Referral Routine Multifocal pneumonia Expected: 07/20/2024 (Approximate), Expires: 01/21/2026 documented as of this encounter Procedures Procedure Name Priority Date/Time Associated Diagnosis Comments POCT GLUCOSE METER UNSOLICITED RESULTS Routine 07/20/2024 [...] EDT documented in this encounter Results * (ABNORMAL) POCT glucose meter (07/20/2024 12:23 PM EDT) [facility] POCT Glucose 273(H) 74 - 99 mg/dL 07/20/2024 12:25 PM EDT [facility] Comment:Accuracy of a [...] Comment 07/20/2024 12:25 PM EDT [facility] Venue Attendant ID Xiomara Jackson 07/21/19 25 12:25 PM EDT [facility] Device ID [id number] 07/20/2024 12:25 PM EDT [facility] Specimen Type POC Capillary 07/20/2024 12:25 PM EDT [facility] Blood Capillary blood specimen / Unknown 07/20/2024 12:23 PM EDT 07/20/2024 12:25 PM EDT us Edgardo Corbett MD LAB POINT OF CARE TE ST DOCKED DEVICE UNSOLICITED RESULTS Final Result [facility] [address] [place] [address] * XR Chest 1 View (07/20/2024 9:07 [...] German Palomares MD on 07/20/2024 10:27 AM Edgardo Corbett MD IMG XR PROCEDURES Final Result * (ABNORMAL) POCT glucose meter (07/20/2024 8:56 AM EDT) POCT Glucose 157(H) 74 - 99 mg/dL 07/20/2024 8:58 AM EDT [facility] Comment:Accuracy of a glucos e result [...] for testing. Comment 07/20/2024 8:58 AM EDT [facility]ALTH[facility]ARE LAB Venue Attendant ID Xiomara Jackson 07/21/19 8:58 AM EDT [facility]ARE [facility] Device ID [id number] 07/20/2024 8:58 AM EDT [facility] Specimen Type POC Capillary 07/20/2024 8:58 AM EDT [facility] Blood Capillary blood specimen / Unknown 07/20/2024 8:56 AM EDT 07/20/2024 8:58 AM EDT Edgardo Corbett MD LAB POINT OF CARE TE ST DOCKED DEVICE UNSOLICITED RESULTS Final Result Performing Organization Address [facility] Phone Number [facility]ARE [facility] [address] [place] [phone] * (ABNORMAL) Procalcitonin (07/20/2024 4:22 AM EDT) Procalcitonin, Plasma 0.61(H) <0.09 ng/mL 07/20/2024 5:09 AM EDT [facility] Blood Venous blood specimen / Unknown Venipuncture / Unknown 07/20/2024 4:22 AM EDT 07/20/2024 4:32 AM EDT Narrative [facility] - 07/20/2024 5:09 AM EDT [...] predict 28 day mortality risk. Please consult [email or web address] for more information. Test performed at [facility]. us Edgardo Corbett MD LAB BLOOD ORDERABLES Final Resu lt [facility] [address] [place] [address] * Lactate, venous (07/20/2024 4:22 AM EDT) Pathologist [facility] Lactate, Venous, Whole Blood 2.0 0.5 - 2.2 mmol/L LAB HEMATOLOGY METHOD 07/20/2024 4:31 AM EDT [facility] Blood Venous blood specimen / Unknown Venipuncture / Unknown 07/20/2024 4:22 AM EDT 07/20/2024 4:28 AM EDT us Edgardo Corbett MD LAB BLOOD ORDERABLES Final Resu lt Performing Organization Address [facility]/ZIP Co de Phone Number [facility] [address] [place] [address] * (ABNORMAL) Cystatin C (07/20/2024 4:22 AM EDT) [facility] Cystatin C 1.17(H) 0.61 - 0.95 mg/L 07/20/2024 5:05 AM EDT [facility] Blood Venous blood specimen / Unknown Venipuncture / Unknown 07/20/2024 4:22 AM EDT 07/20/2024 4:32 AM EDT us Edgardo Corbett MD LAB BLOOD ORDERABLES Final Resu lt Performing Organization Address [facility]/ZIP Co de Phone Number [facility] [address] [place] [address] * (ABNORMAL) C-Reactive Protein, Plasma (07/20/2024 4:22 AM EDT) CRP, Plasma 149.7(H) <=8.0 mg/L 07/20/2024 5:05 AM EDT [facility] Blood Venous blood specimen / Unknown Venipuncture / Unknown 07/20/2024 4:22 AM EDT 07/20/2024 4:32 AM EDT Narrative [facility] - 07/20/2024 5:05 AM EDT This CRP test is appropriate for assessment of infection, systemic inflammation and/or tissue injury. To assess cardiovascular disease risk order high sensitivity CRP (CRPH). us Edgardo Corbett MD LAB BLOOD ORDERABLES Final Resu lt [facility] [address] [place] [address] * (ABNORMAL) Comprehensive Metabolic Panel, Plasma (07/20/2024 4:22 AM EDT) Glucose, Plasma 146(H) 74 - 99 mg/dL 07/20/2024 5:05 AM EDT [facility] BUN, Plasma 8 8 - 23 mg/dL 07/20/2024 5:05 AM EDT [facility] Creatinine, Plasma 0.89 0.70 - 1.20 mg/dL 07/20/2024 5:05 AM EDT [facility] BUN/Creatinine Ratio 9 07/20/2024 5:05 AM EDT [facility] Sodium, Plasma 141 136 - 145 mmol/L 07/20/2024 5:05 AM EDT [facility] Potassium, Plasma 3.6 3.6 - 4.9 mmol/L 07/20/2024 5:05 AM EDT [facility] Chloride, Plasma 103 97 - 107 mmol/L 07/20/2024 5:05 AM EDT [facility] CO2, Plasma 24 22 - 29 mmol/L 07/20/2024 5:05 AM EDT [facility] Anion Gap 14 6 - 16 mmol/L 07/20/2024 5:05 AM EDT [facility] Total Calcium, Plasma 9.4 8.9 - 10.2 mg/dL 07/20/2024 5:05 AM EDT [facility] Total Protein 7.3 6.3 - 7.9 g/dL 07/20/2024 5:05 AM EDT [facility] Albumin, Plasma 3.3(L) 3.5 - 5.2 g/dL 07/20/2024 5:05 AM EDT [facility] AST, Plasma 30 10 - 50 U/L 07/20/2024 5:05 AM EDT [facility] ALT, Plasma 34 10 - 50 U/L 07/20/2024 5:05 AM EDT [facility] Alkaline Phosphatase, Plasma 118(H) 40 - 115 U/L 07/20/2024 5:05 AM EDT [facility] Total Bilirubin, Plasma 0.7 0.2 - 1.1 mg/dL 07/20/2024 5:05 AM EDT [facility] eGFRcr 92.2 mL/min/1.7 3m*2 07/20/2024 5:05 AM EDT [facility] Comment:Reported eGFRcr in m L/min/1.73m2 is based the CKD-EPI 2020 equation that does not use a race coefficient. Blood Venous blood specimen / Unknown Venipuncture / Unknown 07/20/2024 4:22 AM EDT 07/20/2024 4:32 AM EDT us Edgardo Corbett MD LAB BLOOD ORDERABLES Final Resu lt Performing Organization Address City/[facility]/ZIP Co de Phone Number [facility] [address] [place] [address] * Phosphorus, Plasma (07/20/2024 4:22 AM EDT) Phosphorus, Plasma 3.1 2.5 - 4.5 mg/dL 07/20/2024 5:05 AM EDT [facility] Blood Venous blood specimen / Unknown Venipuncture / Unknown 07/20/2024 4:22 AM EDT 07/20/2024 4:32 AM EDT us Dc Torres MD LAB BLOOD ORDERABLES Final Result [facility] [address] [place] [address] * Magnesium, Plasma (07/20/2024 4:22 AM EDT) Magnesium, Plasma 1.9 1.9 - 2.4 mg/dL 07/20/2024 5:05 AM EDT [facility] Blood Venous blood specimen / Unknown Venipuncture / Unknown 07/20/2024 4:22 AM EDT 07/20/2024 4:32 AM EDT Dc Torres MD LAB BLOOD ORDERABLES Final Result [facility] [address] [place] [address] * (ABNORMAL) CBC and Differential (07/20/2024 4:22 AM EDT) WBC Count 6.15 3.70 - 10.30 10*3/uL LAB HEMATOLOGY METHOD 07/20/2024 4:42 AM EDT [facility] RBC Count 4.08(L) 4.60 - 6.10 10*6/uL LAB HEMATOLOGY METHOD 07/20/2024 4:42 AM EDT [facility] HGB 11.2(L) 13.7 - 17.5 g/dL LAB HEMATOLOGY METHOD 07/20/2024 4:42 AM EDT [facility] HCT 35.9(L) 40.0 - 51.0 % LAB HEMATOLOGY METHOD 07/20/2024 4:42 AM EDT [facility] Platelet Count 149(L) 155 - 369 10*3/uL LAB HEMATOLOGY METHOD 07/20/2024 4:42 AM EDT [facility] MCV 88 79 - 98 fL LAB HEMATOLOGY METHOD 07/20/2024 4:42 AM EDT [facility] MCH 27.5 26.0 - 32.0 pg LAB HEMATOLOGY METHOD 07/20/2024 4:42 AM EDT [facility] MCHC 31.2 30.7 - 35.5 g/dL LAB HEMATOLOGY METHOD 07/20/2024 4:42 AM EDT [facility] RDW 16.1(H) 11.5 - 14.5 % LAB HEMATOLOGY METHOD 07/20/2024 4:42 AM EDT [facility] MPV 9.4 8.8 - 12.5 fL LAB HEMATOLOGY METHOD 07/20/2024 4:42 AM EDT [facility] nRBC 0.0 <=0.0 per 100 WBCs LAB HEMATOLOGY METHOD 07/20/2024 4:42 AM EDT [facility] Differential Type Automated LAB HEMATOLOGY METHOD 07/20/2024 4:42 AM EDT [facility] Neutrophils % 41 % LAB HEMATOLOGY METHOD 07/20/2024 4:42 AM EDT [facility] Lymphocytes % 35 % LAB HEMATOLOGY METHOD 07/20/2024 4:42 AM EDT [facility] Monocytes % 7 % LAB HEMATOLOGY METHOD 07/20/2024 4:42 AM EDT [facility] Eosinophils % 15 % LAB HEMATOLOGY METHOD 07/20/2024 4:42 AM EDT [facility] Basophils % 1 % LAB HEMATOLOGY METHOD 07/20/2024 4:42 AM EDT [facility] Immature Granulocytes % 1 % LAB HEMATOLOGY METHOD 07/20/2024 4:42 AM EDT [facility] Neutrophils Absolute 2.55 1.60 - 6.10 10*3/uL LAB HEMATOLOGY METHOD 07/20/2024 4:42 AM EDT [facility] Lymphocytes Absolute 2.17 1.20 - 3.90 10*3/uL LAB HEMATOLOGY METHOD 07/20/2024 4:42 AM EDT [facility] Monocytes Absolute 0.45 0.30 - 0.90 10*3/uL LAB HEMATOLOGY METHOD 07/20/2024 4:42 AM EDT [facility] Eosinophils Absolute 0.91(H) 0.00 - 0.50 10*3/uL LAB HEMATOLOGY METHOD 07/20/2024 4:42 AM EDT [facility] Basophils Absolute 0.04 0.00 - 0.10 10*3/uL LAB HEMATOLOGY METHOD 07/20/2024 4:42 AM EDT [facility] Immature Granulocytes Absolute 0.03 0.00 - 0.06 10*3/uL LAB HEMATOLOGY METHOD 07/20/2024 4:42 AM EDT [facility] Blood Venous blood specimen / Unknown Venipuncture / Unknown 07/20/2024 4:22 AM EDT 07/20/2024 4:34 AM EDT [facility] - 07/20/2024 4:42 AM EDT Therapeutic decision making should be based on absolute values, rather than percentages. us Dc Torres MD LAB BLOOD ORDERABLES Final Result [facility] [address] [place] [address] * (ABNORMAL) POCT glucose meter (07/19/2024 7:21 PM EDT) [facility] POCT Glucose 217(H) 74 - 99 mg/dL [...] for testing. Comment 07/19/2024 7:23 PM EDT [facility] Venue Attendant ID PettyVivi elmore 07/19/2024 7:23 PM EDT [facility] Device ID [id number] 07/19/2024 7:23 PM EDT [facility] Specimen Type POC Capillary 07/19/2024 7:23 PM EDT [facility] Blood Capillary blood specimen / Unknown 07/19/2024 7:21 PM EDT 07/19/2024 7:23 PM EDT Edgardo Corbett MD LAB POINT OF CARE TE ST DOCKED DEVICE UNSOLICITED RESULTS Final Result [facility] [address] [place] [address] * (ABNORMAL) POCT glucose meter (07/19/2024 5:09 PM EDT) [facility] POCT Glucose 212(H) 74 - 99 mg/dL [...] for testing. Comment 07/19/2024 5:10 PM EDT [facility] Venue Attendant ID Geovanna Gomez 5:10 PM EDT [facility] Device ID [id number] 07/19/2024 5:10 PM EDT [facility] Specimen Type POC Capillary 07/19/2024 5:10 PM EDT [facility] Blood Capillary blood specimen / Unknown 07/19/2024 5:09 PM EDT 07/19/2024 5:10 PM EDT Edgardo Corbett MD LAB POINT OF CARE TE ST DOCKED DEVICE UNSOLICITED RESULTS Final Result Performing Organization Address City/[facility] Co de Phone Number [facility] [address] [place] [address] * (ABNORMAL) POCT glucose meter (07/19/2024 11:27 AM EDT) POCT Glucose 169(H) 74 - 99 mg/dL 07/19/2024 11:29 AM EDT [facility] Comment:Accuracy of a [...] Comment 07/19/2024 11:29 AM EDT [facility] Venue Attendant ID Geovanna Gomez 11:29 AM EDT [facility] Device ID [id number] 07/19/2024 11:29 AM EDT [facility] Specimen Type POC Capillary 07/19/2024 11:29 AM EDT [facility] Blood Capillary blood specimen / Unknown 07/19/2024 11:27 AM EDT 07/19/2024 11:29 AM EDT Edgardo Corbett MD LAB POINT OF CARE TE ST DOCKED DEVICE UNSOLICITED RESULTS Final Result Performing Organization Address City/[facility] Co de Phone Number HEALTHCARE LAB [address] [place] [address] * (ABNORMAL) POCT glucose meter (07/19/2024 7:42 [...] Comment 07/19/2024 7:44 AM EDT HEALTHCARE LAB Venue Attendant ID Geovanna Gomez 7:44 AM EDT HEALTHCARE LAB Device ID [id number] 07/19/2024 7:44 AM EDT HEALTHCARE LAB Specimen Type POC Capillary 07/19/2024 7:44 AM EDT [facility] Blood Capillary blood specimen / Unknown 07/19/2024 7:42 AM EDT 07/19/2024 7:44 AM EDT us Edgardo Corbett MD LAB POINT OF CARE TE ST DOCKED DEVICE UNSOLICITED RESULTS Final Result Performing Organization Address City/[facility] Co de Phone Number [facility] [address] [place] [address] * (ABNORMAL) Cystatin C (07/19/2024 12:02 AM EDT) [facility] Cystatin C 1.07(H) 0.61 - 0.95 mg/L 07/19/2024 12:56 AM EDT [facility] Blood Venous blood specimen / Unknown Venipuncture / Unknown 07/19/2024 12:02 AM EDT 07/19/2024 12:06 AM EDT us Edgardo Corbett MD LAB BLOOD ORDERABLES Final Resu lt [facility] [address] [place] [address] * (ABNORMAL) C-Reactive Protein, Plasma (07/19/2024 12:02 AM EDT) [facility] CRP, Plasma 147.7(H) <=8.0 mg/L 07/19/2024 12:56 AM EDT [facility] Blood Venous blood specimen / Unknown Venipuncture / Unknown 07/19/2024 12:02 AM EDT 07/19/2024 12:06 AM EDT Narrative [facility] - 07/19/2024 12:56 AM EDT This CRP test is appropriate for assessment of infection, systemic inflammation and/or tissue injury. To assess cardiovascular disease risk order high sensitivity CRP (CRPH). us Edgardo Corbett MD LAB BLOOD ORDERABLES Final Resu lt [facility] [address] [place] [address] * (ABNORMAL) Comprehensive Metabolic Panel, Plasma (07/19/2024 12:02 AM EDT) Glucose, Plasma 235(H) 74 - 99 mg/dL 07/19/2024 12:56 AM EDT [facility] BUN, Plasma 11 8 - 23 mg/dL 07/19/2024 12:56 AM EDT [facility] Creatinine, Plasma 0.88 0.70 - 1.20 mg/dL 07/19/2024 12:56 AM EDT [facility] BUN/Creatinine Ratio 13 07/19/2024 12:56 AM EDT [facility] Sodium, Plasma 139 136 - 145 mmol/L 07/19/2024 12:56 AM EDT [facility] Potassium, Plasma 3.9 3.6 - 4.9 mmol/L 07/19/2024 12:56 AM EDT [facility] Chloride, Plasma 104 97 - 107 mmol/L 07/19/2024 12:56 AM EDT [facility] CO2, Plasma 25 22 - 29 mmol/L 07/19/2024 12:56 AM EDT [facility] Anion Gap 10 6 - 16 mmol/L 07/19/2024 12:56 AM EDT [facility] Total Calcium, Plasma 8.6(L) 8.9 - 10.2 mg/dL 07/19/2024 12:56 AM EDT [facility] Total Protein 6.0(L) 6.3 - 7.9 g/dL 07/19/2024 12:56 AM EDT [facility] Albumin, Plasma 2.7(L) 3.5 - 5.2 g/dL 07/19/2024 12:56 AM EDT [facility] AST, Plasma 28 10 - 50 U/L 07/19/2024 12:56 AM EDT [facility] ALT, Plasma 28 10 - 50 U/L 07/19/2024 12:56 AM EDT [facility] Alkaline Phosphatase, Plasma 96 40 - 115 U/L 07/19/2024 12:56 AM EDT [facility] Total Bilirubin, Plasma 0.7 0.2 - 1.1 mg/dL 07/19/2024 12:56 AM EDT [facility] eGFRcr 92.5 mL/min/1.7 3m*2 07/19/2024 12:56 AM EDT [facility] Comment:Reported eGFRcr in m L/min/1.73m2 is based the CKD-EPI 2020 equation that does not use a race coefficient. Blood Venous blood specimen / Unknown Venipuncture / Unknown 07/19/2024 12:02 AM EDT 07/19/2024 12:06 AM EDT us Edgardo Corbett MD LAB BLOOD ORDERABLES Final Resu lt Performing Organization Address City/[facility]/ZIP Co de Phone Number [facility] [address] [place] [address] * Phosphorus, Plasma (07/19/2024 12:02 AM EDT) Phosphorus, Plasma 2.8 2.5 - 4.5 mg/dL 07/19/2024 12:56 AM EDT [facility] Blood Venous blood specimen / Unknown Venipuncture / Unknown 07/19/2024 12:02 AM EDT 07/19/2024 12:06 AM EDT us Dc Torres MD LAB BLOOD ORDERABLES Final Result Performing Organization Address City/[facility]/ZIP Co de Phone Number [facility] [address] [place] [address] * Magnesium, Plasma (07/19/2024 12:02 AM EDT) Magnesium, Plasma 1.9 1.9 - 2.4 mg/dL 07/19/2024 12:56 AM EDT [facility] Blood Venous blood specimen / Unknown Venipuncture / Unknown 07/19/2024 12:02 AM EDT 07/19/2024 12:06 AM EDT Dc Torres MD LAB BLOOD ORDERABLES Final Result [facility] [address] [place] [address] * (ABNORMAL) CBC and Differential (07/19/2024 12:02 AM EDT) Pathologist [facility] WBC Count 5.22 3.70 - 10.30 10*3/uL LAB HEMATOLOGY METHOD 07/19/2024 12:40 AM EDT [facility] RBC Count 3.41(L) 4.60 - 6.10 10*6/uL LAB HEMATOLOGY METHOD 07/19/2024 12:40 AM EDT [facility] HGB 9.5(L) 13.7 - 17.5 g/dL LAB HEMATOLOGY METHOD 07/19/2024 12:40 AM EDT [facility] HCT 31.0(L) 40.0 - 51.0 % LAB HEMATOLOGY METHOD 07/19/2024 12:40 AM EDT [facility] Platelet Count 107(L) 155 - 369 10*3/uL LAB HEMATOLOGY METHOD 07/19/2024 12:40 AM EDT [facility] MCV 91 79 - 98 fL LAB HEMATOLOGY METHOD 07/19/2024 12:40 AM EDT [facility] MCH 27.9 26.0 - 32.0 pg LAB HEMATOLOGY METHOD 07/19/2024 12:40 AM EDT [facility] MCHC 30.6(L) 30.7 - 35.5 g/dL LAB HEMATOLOGY METHOD 07/19/2024 12:40 AM EDT [facility] RDW 16.4(H) 11.5 - 14.5 % LAB HEMATOLOGY METHOD 07/19/2024 12:40 AM EDT [facility] MPV 9.0 8.8 - 12.5 fL LAB HEMATOLOGY METHOD 07/19/2024 12:40 AM EDT [facility] nRBC 0.0 <=0.0 per 100 WBCs LAB HEMATOLOGY METHOD 07/19/2024 12:40 AM EDT [facility] Differential Type Automated LAB HEMATOLOGY METHOD 07/19/2024 12:40 AM EDT [facility] Neutrophils % 54 % LAB HEMATOLOGY METHOD 07/19/2024 12:40 AM EDT [facility] Lymphocytes % 22 % LAB HEMATOLOGY METHOD 07/19/2024 12:40 AM EDT [facility] Monocytes % 7 % LAB HEMATOLOGY METHOD 07/19/2024 12:40 AM EDT [facility] Eosinophils % 16 % LAB HEMATOLOGY METHOD 07/19/2024 12:40 AM EDT [facility] Basophils % 1 % LAB HEMATOLOGY METHOD 07/19/2024 12:40 AM EDT [facility] Immature Granulocytes % 0 % LAB HEMATOLOGY METHOD 07/19/2024 12:40 AM EDT [facility] Neutrophils Absolute 2.85 1.60 - 6.10 10*3/uL LAB HEMATOLOGY METHOD 07/19/2024 12:40 AM EDT [facility] Lymphocytes Absolute 1.14(L) 1.20 - 3.90 10*3/uL LAB HEMATOLOGY METHOD 07/19/2024 12:40 AM EDT [facility] Monocytes Absolute 0.38 0.30 - 0.90 10*3/uL LAB HEMATOLOGY METHOD 07/19/2024 12:40 AM EDT [facility] Eosinophils Absolute 0.81(H) 0.00 - 0.50 10*3/uL LAB HEMATOLOGY METHOD 07/19/2024 12:40 AM EDT [facility] Basophils Absolute 0.03 0.00 - 0.10 10*3/uL LAB HEMATOLOGY METHOD 07/19/2024 12:40 AM EDT [facility] Immature Granulocytes Absolute 0.01 0.00 - 0.06 10*3/uL LAB HEMATOLOGY METHOD 07/19/2024 12:40 AM EDT [facility] Blood Venous blood specimen / Unknown Venipuncture / Unknown 07/19/2024 12:02 AM EDT 07/19/2024 12:06 AM EDT Narrative [facility] - 07/19/2024 12:40 AM EDT Therapeutic decision making should be based on absolute values, rather than percentages. Dc Torres MD LAB BLOOD ORDERABLES Final Result Performing Organization Address [facility]/ZIP Co de Phone Number [facility] [address] [place] [address] * T4, free (07/19/2024 12:02 AM EDT) Free T4, Plasma 1.1 0.8 - 1.7 ng/dL 07/19/2024 2:07 AM EDT [facility] Blood Venous blood specimen / Unknown Venipuncture / Unknown 07/19/2024 12:02 AM EDT 07/19/2024 12:06 AM EDT Edgardo Corbett MD LAB BLOOD ORDERABLES Final Resu lt Performing Organization Address [facility] Co de Phone Number [facility] [address] [place] [address] * Alpha Fetoprotein, Serum (07/19/2024 12:02 AM EDT) Alpha Fetoprotein, Serum <2.3 <10.0 ng/mL 07/19/2024 2:39 AM EDT [facility] Blood Venous blood specimen / Unknown Venipuncture / Unknown 07/19/2024 12:02 AM EDT 07/19/2024 12:06 AM EDT Narrative [facility] - 07/19/2024 2:39 AM EDT Performed by [employer] electrochemiluminescent immunoassay which is traceable to the 1st AFP IRP WHO Reference standard 72/255. Results obtained with different test methods or kits cannot be used interchangeably. Edgardo Corbett MD LAB BLOOD ORDERABLES Final Resu lt Performing Organization Address [facility]/[place] [address] * Prostate Cancer Screen, Serum (07/19/2024 12:02 AM EDT) Prostate Cancer Screen, Serum 0.19 0.00 - 6.50 ng/mL 07/19/2024 1:39 AM EDT [facility] Blood Venous blood specimen / Unknown Venipuncture / Unknown 07/19/2024 12:02 AM EDT 07/19/2024 12:06 AM EDT Narrative [facility] - 07/19/2024 1:39 AM EDT Performed by [employer] electrochemiluminescent immunoassay which is standardized against the PSA [place] Reference Standard (WHO 96/670). Results obtained with different test methods or kits cannot be used interchangeably. us Edgardo Corbett MD LAB BLOOD ORDERABLES Final Resu lt Performing Organization Address [facility] Co de Phone Number [facility] [address] [place] [address] * Cancer Antigen, GI (CA 19.9) (07/19/2024 12:02 AM EDT) Pathologist [facility] CA 19.9 20.9 <36 U/mL 07/19/2024 2:3 9 AM EDT [facility] Blood Venous blood specimen / Unknown Venipuncture / Unknown 07/19/2024 12:02 AM EDT 07/19/2024 12:06 AM EDT Narrative [facility] - 07/19/2024 2:39 AM EDT Performed by Faisal electrochemiluminescent immunoassay. Results obtained with different test methods or kits cannot be used interchangeably. us Edgardo Corbett MD LAB BLOOD ORDERABLES Final Resu lt Performing Organization Address City/[facility]/ZIP Co de Phone Number [facility] [address] [place] [address] * (ABNORMAL) CEA, Serum (07/19/2024 12:02 AM EDT) Pathologist [facility] CEA, Serum 8.8(H) <4.0 ng/mL 07/19/2024 2:39 AM EDT [facility] Blood Venous blood specimen / Unknown Venipuncture / Unknown 07/19/2024 12:02 AM EDT 07/19/2024 12:06 AM EDT Narrative [facility] - 07/19/2024 2:39 AM EDT Normal range for smokers: < 5.5 ng/ml Normal range for non-smokers: <=4.0 ng/ml Performed by Fais[employer] electrochemiluminescent immunoassay. Results obtained with different test methods or kits cannot be used interchangeably. us Edgardo Corbett MD LAB BLOOD ORDERABLES Final Resu lt Performing Organization Address City/[facility]/ZIP Co de Phone Number [facility] [address] [place] [address] * (ABNORMAL) POCT glucose meter (07/18/2024 7:44 PM EDT) POCT Glucose 165(H) 74 - 99 mg/dL 07/18/2024 7:45 PM EDT [facility] Comment:Accuracy of [...] Comment 07/18/2024 7:45 PM EDT HEALTHCARE LAB Venue Attendant ID Vivi Petty 07/18/2024 7:45 PM EDT HEALTHCARE LAB Device ID [id number] 07/18/2024 7:45 PM EDT [facility]ALTH[facility]ARE [facility] Specimen Type POC Capillary 07/18/2024 7:45 PM EDT [facility] Blood Capillary blood specimen / Unknown 07/18/2024 7:44 PM EDT 07/18/2024 7:45 PM EDT us Edgardo Corbett MD LAB POINT OF CARE TE ST DOCKED DEVICE UNSOLICITED RESULTS Final Result Performing Organization Address City/[facility] Co de Phone Number HEALTHCARE [facility] [address] [place] [address] * (ABNORMAL) POCT glucose meter (07/18/2024 4:45 PM EDT) POCT Glucose 170(H) 74 - 99 mg/dL 07/18/2024 4:47 PM EDT [facility] Comment:Accuracy of [...] for testing. Comment 07/18/2024 4:47 PM EDT [facility] Venue Attendant ID StephaniGracie mcraealanna Bryan 025 4:47 PM EDT [facility] Device ID [id number] 07/18/2024 4:47 PM EDT HEALTH[facility]ARE [facility] Specimen Type POC Capillary 07/18/2024 4:47 PM EDT [facility] Blood Capillary blood specimen / Unknown 07/18/2024 4:45 PM EDT 07/18/2024 4:47 PM EDT Edgardo Corbett MD LAB POINT OF CARE TE ST DOCKED DEVICE UNSOLICITED RESULTS Final Result Performing Organization Address City/State/[facility] Co de Phone Number [facility] [address] [place] [address] * (ABNORMAL) POCT glucose meter (07/18/2024 12:57 PM EDT) [facility] POCT Glucose 158(H) 74 - 99 mg/dL [...] for testing. Comment 07/18/2024 12:58 PM EDT [facility] Venue Attendant ID Juanis Ruiz 025 12:58 PM EDT [facility] Device ID [id number] 07/18/2024 12:58 PM EDT [facility] Specimen Type POC Capillary 07/18/2024 12:58 PM EDT [facility] Blood Capillary blood specimen / Unknown 07/18/2024 12:57 PM EDT 07/18/2024 12:58 PM EDT Edgardo Corbett MD LAB POINT OF CARE TE ST DOCKED DEVICE UNSOLICITED RESULTS Final Result Performing Organization Address [facility] de Phone Number [facility] [address] [place] [address] * (ABNORMAL) POCT glucose meter (07/18/2024 12:04 PM EDT) [facility] POCT Glucose 57(L) 74 - 99 mg/dL [...] Comment 07/18/2024 12:05 PM EDT HEALTHCARE LAB Venue Attendant ID Renate Mathew 07/19/19 25 12:05 PM EDT HEALTHCARE LAB Device ID [id number] 07/18/2024 12:05 PM EDT [facility] Specimen Type POC Capillary 07/18/2024 12:05 PM EDT [facility] Blood Capillary blood specimen / Unknown 07/18/2024 12:04 PM EDT 07/18/2024 12:05 PM EDT Edgardo Corbett MD LAB POINT OF CARE TE ST DOCKED DEVICE UNSOLICITED RESULTS Final Result Performing Organization Address City/[facility] Co de Phone Number [facility] [address] [place] [address] * (ABNORMAL) POCT glucose meter (07/18/2024 11:39 AM EDT) [facility] POCT Glucose 63(L) 74 - 99 mg/dL 07/18/2024 11:40 AM EDT [facility] Comment:Accuracy of [...] Comment 07/18/2024 11:40 AM EDT [facility]ALTH[facility]ARE LAB Venue Attendant ID Juanis Ruiz 025 11:40 AM EDT HEALTHCARE LAB Device ID [id number] 07/18/2024 11:40 AM EDT [facility]ALTH[facility]ARE [facility] Specimen Type POC Capillary 07/18/2024 11:40 AM EDT [facility] Blood Capillary blood specimen / Unknown 07/18/2024 11:39 AM EDT 07/18/2024 11:40 AM EDT Edgardo Corbett MD LAB POINT OF CARE TE ST DOCKED DEVICE UNSOLICITED RESULTS Final Result [facility] [address] [place], [place] [id number] * [place] Modified Barium Swallow (07/18/2024 8:35 [...] is deep laryngeal penetration by the teaspoon. [place] consistency (IDDSI 2): No aspiration. There is [...] There is deep laryngealpenetration by the teaspoon. [place] consistency (IDDSI 2): No aspiration. There is [...] signing this report, I, the attending physician, attestthat I have personally reviewed the images/data for [...] - 99 mg/dL 07/18/2024 7:50 AM EDT [facility] Comment:Accuracy of a [...] for testing. Comment 07/18/2024 7:50 AM EDT [facility]ALTH[facility]ARE LAB Venue Attendant ID Juanis Ruiz 025 7:50 AM EDT HEALTHCARE LAB Device ID [id number] 07/18/2024 7:50 AM EDT [facility]ALTH[facility]ARE [facility] Specimen Type POC Capillary 07/18/2024 7:50 AM EDT [facility] Blood Capillary blood specimen / Unknown 07/18/2024 7:49 AM EDT 07/18/2024 7:50 AM EDT us Edgardo Corbett MD LAB POINT OF CARE TE ST DOCKED DEVICE UNSOLICITED RESULTS Final Result Performing Organization Address [facility] Co de Phone Number [facility] [address] [place] [address] * N-Terminal Probnp (07/18/2024 5:48 AM EDT) Pathologist [facility] N-Terminal, PROBNP, Plasma 545 0 - 899 pg/mL 07/18/2024 2:54 PM EDT [facility] Blood Venous blood specimen / Unknown Venipuncture / Unknown 07/18/2024 5:48 AM EDT 07/18/2024 5:53 AM EDT us Edgardo Corbett MD LAB BLOOD ORDERABLES Final Resu lt Performing Organization Address City/[facility]/ZIP Co de Phone Number [facility] [address] [place] [address] * (ABNORMAL) Cystatin C (07/18/2024 5:48 AM EDT) Cystatin C 1.01(H) 0.61 - 0.95 mg/L 07/18/2024 6:39 AM EDT [facility] Blood Venous blood specimen / Unknown Venipuncture / Unknown 07/18/2024 5:48 AM EDT 07/18/2024 5:53 AM EDT Edgardo Corbett MD LAB BLOOD ORDERABLES Final Resu lt Performing Organization Address [facility] Co de Phone Number [facility] [address] [place] [address] * (ABNORMAL) C-Reactive Protein, Plasma (07/18/2024 5:48 AM EDT) [facility] CRP, Plasma 148.4(H) <=8.0 mg/L 07/18/2024 6:28 AM EDT [facility] Blood Venous blood specimen / Unknown Venipuncture / Unknown 07/18/2024 5:48 AM EDT 07/18/2024 5:53 AM EDT Narrative [facility] - 07/18/2024 6:28 AM EDT This CRP test is appropriate for assessment of infection, systemic inflammation and/or tissue injury. To assess cardiovascular disease risk order high sensitivity CRP (CRPH). us Edgardo Corbett MD LAB BLOOD ORDERABLES Final Resu lt Performing Organization Address [facility] Co de Phone Number [facility] [address] [place] [address] * (ABNORMAL) Comprehensive Metabolic Panel, Plasma (07/18/2024 5:48 AM EDT) Pathologist [facility] Glucose, Plasma 141(H) 74 - 99 mg/dL 07/18/2024 6:28 AM EDT [facility] BUN, Plasma 8 8 - 23 mg/dL 07/18/2024 6:28 AM EDT [facility] Creatinine, Plasma 0.78 0.70 - 1.20 mg/dL 07/18/2024 6:28 AM EDT [facility] BUN/Creatinine Ratio 10 07/18/2024 6:28 AM EDT [facility] Sodium, Plasma 140 136 - 145 mmol/L 07/18/2024 6:28 AM EDT [facility] Potassium, Plasma 3.5(L) 3.6 - 4.9 mmol/L 07/18/2024 6:28 AM EDT [facility] Chloride, Plasma 105 97 - 107 mmol/L 07/18/2024 6:28 AM EDT [facility] CO2, Plasma 28 22 - 29 mmol/L 07/18/2024 6:28 AM EDT [facility] Anion Gap 7 6 - 16 mmol/L 07/18/2024 6:28 AM EDT [facility] Total Calcium, Plasma 8.5(L) 8.9 - 10.2 mg/dL 07/18/2024 6:28 AM EDT [facility] Total Protein 5.9(L) 6.3 - 7.9 g/dL 07/18/2024 6:28 AM EDT [facility] Albumin, Plasma 2.9(L) 3.5 - 5.2 g/dL 07/18/2024 6:28 AM EDT [facility] AST, Plasma 30 10 - 50 U/L 07/18/2024 6:28 AM EDT [facility] ALT, Plasma 29 10 - 50 U/L 07/18/2024 6:28 AM EDT [facility] Alkaline Phosphatase, Plasma 97 40 - 115 U/L 07/18/2024 6:28 AM EDT [facility] Total Bilirubin, Plasma 0.6 0.2 - 1.1 mg/dL 07/18/2024 6:28 AM EDT [facility] eGFRcr 95.9 mL/min/1.7 3m*2 07/18/2024 6:28 AM EDT [facility] Comment:Reported eGFRcr in m L/min/1.73m2 is based the CKD-EPI 2020 equation that does not use a race coefficient. Blood Venous blood specimen / Unknown Venipuncture / Unknown 07/18/2024 5:48 AM EDT 07/18/2024 5:53 AM EDT us Edgardo Corbett MD LAB BLOOD ORDERABLES Final Resu lt [facility] [address] [place] [address] * Phosphorus, Plasma (07/18/2024 5:48 AM EDT) Phosphorus, Plasma 2.7 2.5 - 4.5 mg/dL 07/18/2024 6:28 AM EDT [facility] Blood Venous blood specimen / Unknown Venipuncture / Unknown 07/18/2024 5:48 AM EDT 07/18/2024 5:53 AM EDT Dc Torres MD LAB BLOOD ORDERABLES Final Result Performing Organization Address City/[facility]/ZIP Co de Phone Number [facility] [address] [place] [address] * Magnesium, Plasma (07/18/2024 5:48 AM EDT) Magnesium, Plasma 1.9 1.9 - 2.4 mg/dL 07/18/2024 6:28 AM EDT [facility] Blood Venous blood specimen / Unknown Venipuncture / Unknown 07/18/2024 5:48 AM EDT 07/18/2024 5:53 AM EDT us Dc Torres MD LAB BLOOD ORDERABLES Final Result Performing Organization Address City/[facility]/ZIP Co de Phone Number [facility] [address] [place] [address] * (ABNORMAL) CBC and Differential (07/18/2024 5:48 AM EDT) WBC Count 5.15 3.70 - 10.30 10*3/uL LAB HEMATOLOGY METHOD 07/18/2024 6:06 AM EDT [facility] RBC Count 3.46(L) 4.60 - 6.10 10*6/uL LAB HEMATOLOGY METHOD 07/18/2024 6:06 AM EDT [facility] HGB 9.8(L) 13.7 - 17.5 g/dL LAB HEMATOLOGY METHOD 07/18/2024 6:06 AM EDT [facility] HCT 30.7(L) 40.0 - 51.0 % LAB HEMATOLOGY METHOD 07/18/2024 6:06 AM EDT [facility] Platelet Count 121(L) 155 - 369 10*3/uL LAB HEMATOLOGY METHOD 07/18/2024 6:06 AM EDT [facility] MCV 89 79 - 98 fL LAB HEMATOLOGY METHOD 07/18/2024 6:06 AM EDT [facility] MCH 28.3 26.0 - 32.0 pg LAB HEMATOLOGY METHOD 07/18/2024 6:06 AM EDT [facility] MCHC 31.9 30.7 - 35.5 g/dL LAB HEMATOLOGY METHOD 07/18/2024 6:06 AM EDT [facility] RDW 16.6(H) 11.5 - 14.5 % LAB HEMATOLOGY METHOD 07/18/2024 6:06 AM EDT [facility] MPV 9.0 8.8 - 12.5 fL LAB HEMATOLOGY METHOD 07/18/2024 6:06 AM EDT [facility] nRBC 0.0 <=0.0 per 100 WBCs LAB HEMATOLOGY METHOD 07/18/2024 6:06 AM EDT [facility] Differential Type Automated LAB HEMATOLOGY METHOD 07/18/2024 6:06 AM EDT [facility] Neutrophils % 64 % LAB HEMATOLOGY METHOD 07/18/2024 6:06 AM EDT [facility] Lymphocytes % 17 % LAB HEMATOLOGY METHOD 07/18/2024 6:06 AM EDT [facility] Monocytes % 7 % LAB HEMATOLOGY METHOD 07/18/2024 6:06 AM EDT [facility] Eosinophils % 12 % LAB HEMATOLOGY METHOD 07/18/2024 6:06 AM EDT [facility] Basophils % 0 % LAB HEMATOLOGY METHOD 07/18/2024 6:06 AM EDT [facility] Immature Granulocytes % 0 % LAB HEMATOLOGY METHOD 07/18/2024 6:06 AM EDT [facility] Neutrophils Absolute 3.27 1.60 - 6.10 10*3/uL LAB HEMATOLOGY METHOD 07/18/2024 6:06 AM EDT [facility] Lymphocytes Absolute 0.87(L) 1.20 - 3.90 10*3/uL LAB HEMATOLOGY METHOD 07/18/2024 6:06 AM EDT [facility] Monocytes Absolute 0.34 0.30 - 0.90 10*3/uL LAB HEMATOLOGY METHOD 07/18/2024 6:06 AM EDT [facility] Eosinophils Absolute 0.63(H) 0.00 - 0.50 10*3/uL LAB HEMATOLOGY METHOD 07/18/2024 6:06 AM EDT [facility] Basophils Absolute 0.02 0.00 - 0.10 10*3/uL LAB HEMATOLOGY METHOD 07/18/2024 6:06 AM EDT [facility] Immature Granulocytes Absolute 0.02 0.00 - 0.06 10*3/uL LAB HEMATOLOGY METHOD 07/18/2024 6:06 AM EDT [facility] Blood Venous blood specimen / Unknown Venipuncture / Unknown 07/18/2024 5:48 AM EDT 07/18/2024 5:56 AM EDT Narrative [facility] - 07/18/2024 6:06 AM EDT Therapeutic decision making should be based on absolute values, rather than percentages. Dc Torres MD LAB BLOOD ORDERABLES Final Result [facility] [address] [place] [address] * (ABNORMAL) POCT glucose meter (07/17/2024 8:07 [...] for testing. Comment 07/17/2024 8:08 PM EDT [facility] Venue Attendant ID Tripp Askew 07/17/2024 8:08 PM EDT HEALTHCARE LAB Device ID [id number] 07/17/2024 8:08 PM EDT [facility]ALTH[facility]ARE [facility] Specimen Type POC Capillary 07/17/2024 8:08 PM EDT [facility] Blood Capillary blood specimen / Unknown 07/17/2024 8:07 PM EDT 07/17/2024 8:08 PM EDT Edgardo Corbett MD LAB POINT OF CARE TE ST DOCKED DEVICE UNSOLICITED RESULTS Final Result Performing Organization Address City/[facility]/ZIP Co de Phone Number [facility]ALTHCARE [facility] [address] [place] [address] * (ABNORMAL) POCT glucose meter (07/17/2024 5:28 [...] Comment 07/17/2024 5:29 PM EDT [facility] Venue Attendant ID Cecy Huntley [id number] 5:29 PM EDT [facility] Device ID [id number] 07/17/2024 5:29 PM EDT [facility] Specimen Type POC Capillary 07/17/2024 5:29 PM EDT [facility] Blood Capillary blood specimen / Unknown 07/17/2024 5:28 PM EDT 07/17/2024 5:29 PM EDT Edgardo Corbett MD LAB POINT OF CARE TE ST DOCKED DEVICE UNSOLICITED RESULTS Final Result Performing Organization Address City/[facility]/ZIP Co de Phone Number [facility]ARE [facility] [address] [place] [address] * (ABNORMAL) POCT glucose meter (07/17/2024 11:34 AM EDT) POCT Glucose 212(H) 74 - 99 mg/dL 07/17/2024 11:35 AM EDT [facility] Comment:Accuracy of [...] Comment 07/17/2024 11:35 AM EDT [facility]ALTH[facility]ARE LAB Venue Attendant ID Cecy Huntley 025 11:35 AM EDT [facility]ALTH[facility]ARE [facility] Device ID [id number] 07/17/2024 11:35 AM EDT [facility] Specimen Type POC Capillary 07/17/2024 11:35 AM EDT [facility] Blood Capillary blood specimen / Unknown 07/17/2024 11:34 AM EDT 07/17/2024 11:35 AM EDT Edgardo Corbett MD LAB POINT OF CARE TE ST DOCKED DEVICE UNSOLICITED RESULTS Final Result Performing Organization Address City/State/[facility] Co de Phone Number HEALTHCARE LAB [address] [place] [address] * (ABNORMAL) POCT glucose meter (07/17/2024 8:06 AM EDT) [facility] POCT Glucose 138(H) 74 - 99 mg/dL [...] Comment 07/17/2024 8:07 AM EDT [facility]ALTHCARE [facility] Venue Attendant ID Cecy Huntley 025 8:07 AM EDT [facility]ALTH[facility]ARE LAB Device ID [id number] 07/17/2024 8:07 AM EDT [facility]ARE [facility] Specimen Type POC Capillary 07/17/2024 8:07 AM EDT [facility] Blood Capillary blood specimen / Unknown 07/17/2024 8:06 AM EDT 07/17/2024 8:07 AM EDT us Edgardo Corbett MD LAB POINT OF CARE TE ST DOCKED DEVICE UNSOLICITED RESULTS Final Result Performing Organization Address City/[facility]/ZIP Co de Phone Number [facility] [address] [place] [address] * (ABNORMAL) Cystatin C (07/17/2024 3:14 AM EDT) Cystatin C 1.06(H) 0.61 - 0.95 mg/L 07/17/2024 4:35 AM EDT [facility] Blood Venous blood specimen / Unknown Venipuncture / Unknown 07/17/2024 3:14 AM EDT 07/17/2024 3:33 AM EDT us Edgardo Corbett MD LAB BLOOD ORDERABLES Final Resu lt Performing Organization Address [facility] Co de Phone Number [facility] [address] [place] [address] * (ABNORMAL) C-Reactive Protein, Plasma (07/17/2024 3:14 AM EDT) CRP, Plasma 154.0(H) <=8.0 mg/L 07/17/2024 4:13 AM EDT [facility] Blood Venous blood specimen / Unknown Venipuncture / Unknown 07/17/2024 3:14 AM EDT 07/17/2024 3:33 AM EDT Narrative [facility] - 07/17/2024 4:13 AM EDT This CRP test is appropriate for assessment of infection, systemic inflammation and/or tissue injury. To assess cardiovascular disease risk order high sensitivity CRP (CRPH). us Edgardo Corbett MD LAB BLOOD ORDERABLES Final Resu lt Performing Organization Address [facility] Co de Phone Number [facility] [address] [place] [address] * (ABNORMAL) Comprehensive Metabolic Panel, Plasma (07/17/2024 3:14 AM EDT) Glucose, Plasma 202(H) 74 - 99 mg/dL 07/17/2024 4:13 AM EDT [facility] BUN, Plasma 10 8 - 23 mg/dL 07/17/2024 4:13 AM EDT [facility] Creatinine, Plasma 0.85 0.70 - 1.20 mg/dL 07/17/2024 4:13 AM EDT [facility] BUN/Creatinine Ratio 12 07/17/2024 4:13 AM EDT [facility] Sodium, Plasma 140 136 - 145 mmol/L 07/17/2024 4:13 AM EDT [facility] Potassium, Plasma 3.5(L) 3.6 - 4.9 mmol/L 07/17/2024 4:13 AM EDT [facility] Chloride, Plasma 105 97 - 107 mmol/L 07/17/2024 4:13 AM EDT [facility] CO2, Plasma 27 22 - 29 mmol/L 07/17/2024 4:13 AM EDT [facility] Anion Gap 8 6 - 16 mmol/L 07/17/2024 4:13 AM EDT [facility] Total Calcium, Plasma 8.2(L) 8.9 - 10.2 mg/dL 07/17/2024 4:13 AM EDT [facility] Total Protein 5.4(L) 6.3 - 7.9 g/dL 07/17/2024 4:13 AM EDT [facility] Albumin, Plasma 2.8(L) 3.5 - 5.2 g/dL 07/17/2024 4:13 AM EDT [facility] AST, Plasma 27 10 - 50 U/L 07/17/2024 4:13 AM EDT [facility] ALT, Plasma 30 10 - 50 U/L 07/17/2024 4:13 AM EDT [facility] Alkaline Phosphatase, Plasma 87 40 - 115 U/L 07/17/2024 4:13 AM EDT [facility] Total Bilirubin, Plasma 0.6 0.2 - 1.1 mg/dL 07/17/2024 4:13 AM EDT [facility] eGFRcr 93.5 mL/min/1.7 3m*2 07/17/2024 4:13 AM EDT [facility] Comment:Reported eGFRcr in m L/min/1.73m2 is based the CKD-EPI 2020 equation that does not use a race coefficient. Blood Venous blood specimen / Unknown Venipuncture / Unknown 07/17/2024 3:14 AM EDT 07/17/2024 3:33 AM EDT Edgardo Corbett MD LAB BLOOD ORDERABLES Final Resu lt Performing Organization Address City/[facility]/[place] [address] * Phosphorus, Plasma (07/17/2024 3:14 AM EDT) Phosphorus, Plasma 3.4 2.5 - 4.5 mg/dL 07/17/2024 4:13 AM EDT [facility] Blood Venous blood specimen / Unknown Venipuncture / Unknown 07/17/2024 3:14 AM EDT 07/17/2024 3:33 AM EDT Dc Torres MD LAB BLOOD ORDERABLES Final Result Performing Organization Address [facility] [place] [address] * Magnesium, Plasma (07/17/2024 3:14 AM EDT) Magnesium, Plasma 1.9 1.9 - 2.4 mg/dL 07/17/2024 4:13 AM EDT [facility] Blood Venous blood specimen / Unknown Venipuncture / Unknown 07/17/2024 3:14 AM EDT 07/17/2024 3:33 AM EDT Dc Torres MD LAB BLOOD ORDERABLES Final Result Performing Organization Address City/[facility] [place] [address] * (ABNORMAL) CBC and Differential (07/17/2024 3:14 AM EDT) WBC Count 5.26 3.70 - 10.30 10*3/uL LAB HEMATOLOGY METHOD 07/17/2024 3:49 AM EDT [facility] RBC Count 3.21(L) 4.60 - 6.10 10*6/uL LAB HEMATOLOGY METHOD 07/17/2024 3:49 AM EDT [facility] HGB 9.0(L) 13.7 - 17.5 g/dL LAB HEMATOLOGY METHOD 07/17/2024 3:49 AM EDT [facility] HCT 28.9(L) 40.0 - 51.0 % LAB HEMATOLOGY METHOD 07/17/2024 3:49 AM EDT [facility] Platelet Count 105(L) 155 - 369 10*3/uL LAB HEMATOLOGY METHOD 07/17/2024 3:49 AM EDT [facility] MCV 90 79 - 98 fL LAB HEMATOLOGY METHOD 07/17/2024 3:49 AM EDT [facility] MCH 28.0 26.0 - 32.0 pg LAB HEMATOLOGY METHOD 07/17/2024 3:49 AM EDT [facility] MCHC 31.1 30.7 - 35.5 g/dL LAB HEMATOLOGY METHOD 07/17/2024 3:49 AM EDT [facility] RDW 16.5(H) 11.5 - 14.5 % LAB HEMATOLOGY METHOD 07/17/2024 3:49 AM EDT [facility] MPV 9.6 8.8 - 12.5 fL LAB HEMATOLOGY METHOD 07/17/2024 3:49 AM EDT [facility] nRBC 0.0 <=0.0 per 100 WBCs LAB HEMATOLOGY METHOD 07/17/2024 3:49 AM EDT [facility] Differential Type Automated LAB HEMATOLOGY METHOD 07/17/2024 3:49 AM EDT [facility] Neutrophils % 69 % LAB HEMATOLOGY METHOD 07/17/2024 3:49 AM EDT [facility] Lymphocytes % 15 % LAB HEMATOLOGY METHOD 07/17/2024 3:49 AM EDT [facility] Monocytes % 7 % LAB HEMATOLOGY METHOD 07/17/2024 3:49 AM EDT [facility] Eosinophils % 9 % LAB HEMATOLOGY METHOD 07/17/2024 3:49 AM EDT [facility] Basophils % 0 % LAB HEMATOLOGY METHOD 07/17/2024 3:49 AM EDT [facility] Immature Granulocytes % 0 % LAB HEMATOLOGY METHOD 07/17/2024 3:49 AM EDT [facility] Neutrophils Absolute 3.62 1.60 - 6.10 10*3/uL LAB HEMATOLOGY METHOD 07/17/2024 3:49 AM EDT [facility] Lymphocytes Absolute 0.78(L) 1.20 - 3.90 10*3/uL LAB HEMATOLOGY METHOD 07/17/2024 3:49 AM EDT [facility] Monocytes Absolute 0.34 0.30 - 0.90 10*3/uL LAB HEMATOLOGY METHOD 07/17/2024 3:49 AM EDT [facility] Eosinophils Absolute 0.48 0.00 - 0.50 10*3/uL LAB HEMATOLOGY METHOD 07/17/2024 3:49 AM EDT [facility] Basophils Absolute 0.02 0.00 - 0.10 10*3/uL LAB HEMATOLOGY METHOD 07/17/2024 3:49 AM EDT [facility] Immature Granulocytes Absolute 0.02 0.00 - 0.06 10*3/uL LAB HEMATOLOGY METHOD 07/17/2024 3:49 AM EDT [facility] Blood Venous blood specimen / Unknown Venipuncture / Unknown 07/17/2024 3:14 AM EDT 07/17/2024 3:36 AM EDT Narrative [facility] - 07/17/2024 3:49 AM EDT Therapeutic decision making should be based on absolute values, rather than percentages. Dc Torres MD LAB BLOOD ORDERABLES Final Result [facility] [address] [place] [address] * Creatine Kinase (CK), Total (07/17/2024 3:14 AM EDT) Creatine Kinase, Plasma 143 49 - 320 U/L 07/17/2024 4:13 AM EDT [facility] Blood Venous blood specimen / Unknown Venipuncture / Unknown 07/17/2024 3:14 AM EDT 07/17/2024 3:33 AM EDT Dc Torres MD LAB BLOOD ORDERABLES Final Result Performing Organization Address City/[facility]/[place] [address] * TSH Reflex FT4 (07/17/2024 3:14 AM EDT) Thyroid Stimulating Hormone, Plasma 2.96 0.40 - 4.20 uIU/mL 07/17/2024 4:13 AM EDT [facility] Blood Venous blood specimen / Unknown Venipuncture / Unknown 07/17/2024 3:14 AM EDT 07/17/2024 3:33 AM EDT Dc Torres MD LAB BLOOD ORDERABLES Final Result Performing Organization Address City/[facility] [place] [address] * Folate, Serum (07/17/2024 3:14 AM EDT) Folate, Serum >20.0 >4.6 ng/mL 07/17/2024 4:22 AM EDT [facility] Blood Venous blood specimen / Unknown Venipuncture / Unknown 07/17/2024 3:14 AM EDT 07/17/2024 3:33 AM EDT Result [facility] Dc Torres MD LAB BLOOD ORDERABLES Final Result Performing Organization Address City/[facility]/[place] [address] * Vitamin B12, Serum (07/17/2024 3:14 AM EDT) Vitamin B12, Serum 580 210 - 1,033 pg/mL 07/17/2024 4:22 AM EDT [facility] Blood Venous blood specimen / Unknown Venipuncture / Unknown 07/17/2024 3:14 AM EDT 07/17/2024 3:33 AM EDT us Dc Torres MD LAB BLOOD ORDERABLES Final Result Performing Organization Address City/[facility]/ZIP Co de Phone Number [facility] [address] [place] [address] * Ferritin, Serum (07/17/2024 3:14 AM EDT) [facility] Ferritin, Serum 97 20 - 400 ng/mL 07/17/2024 4:22 AM EDT [facility] Blood Venous blood specimen / Unknown Venipuncture / Unknown 07/17/2024 3:14 AM EDT 07/17/2024 3:33 AM EDT Dc Torres MD LAB BLOOD ORDERABLES Final Result Performing Organization Address [facility] Co de Phone Number [facility] [address] [place] [address] * (ABNORMAL) POCT glucose meter (07/16/2024 8:04 PM EDT) [facility] POCT Glucose 165(H) 74 - 99 mg/dL [...] for testing. Comment 07/16/2024 8:06 PM EDT [facility] Venue Attendant ID Tripp Askew 07/16/2024 8:06 PM EDT [facility]ALTHCARE LAB Device ID [id number] 07/16/2024 8:06 PM EDT [facility] Specimen Type POC Capillary 07/16/2024 8:06 PM EDT [facility] Blood Capillary blood specimen / Unknown 07/16/2024 8:04 PM EDT 07/16/2024 8:06 PM EDT Dc Torres MD LAB POINT OF CARE T EST DOCKED DEVICE UNSOLICITED RESULTS Final Result Performing Organization Address City/[facility]/ZIP Co de Phone Number [facility] [address] [place] [address] * (ABNORMAL) POCT glucose meter (07/16/2024 5:23 PM EDT) [facility] POCT Glucose 190(H) 74 - 99 mg/dL [...] 07/16/2024 5:30 PM EDT [facility] Venue Attendant ID Pernell Hernandze 07/16/2024 5:30 PM EDT [facility] Device ID [id number] 07/16/2024 5:30 PM EDT [facility] Specimen Type POC Capillary 07/16/2024 5:30 PM EDT [facility] Blood Capillary blood specimen / Unknown 07/16/2024 5:23 PM EDT 07/16/2024 5:30 PM EDT Dc Torres MD LAB POINT OF CARE T EST DOCKED DEVICE UNSOLICITED RESULTS Final Result [facility] [address] [place] [address] * (ABNORMAL) POCT glucose meter (07/16/2024 4:21 PM EDT) [facility] POCT Glucose 220(H) 74 - 99 mg/dL [...] for testing. Comment 07/16/2024 4:35 PM EDT [facility] Venue Attendant ID Germania Taveras 07/16/2024 4:35 PM EDT [facility] Device ID [id number] 07/16/2024 4:35 PM EDT [facility] Specimen Type POC Capillary 07/16/2024 4:35 PM EDT [facility] Blood Capillary blood specimen / Unknown 07/16/2024 4:21 PM EDT 07/16/2024 4:35 PM EDT Vishal Cardona MD LAB POINT OF CARE TE ST DOCKED DEVICE UNSOLICITED RESULTS Final Result Performing Organization Address City/[facility] Co de Phone Number [facility] [address] [place] [address] * (ABNORMAL) POCT glucose meter (07/16/2024 2:41 PM EDT) POCT Glucose 204(H) 74 - 99 mg/dL 07/16/2024 2:43 PM EDT [facility] Comment:Accuracy of a [...] Comment 07/16/2024 2:43 PM EDT [facility] Venue Attendant ID Felix Lieberman 07/16/2024 2:43 PM EDT [facility]ALTH[facility] LAB Device ID [id number] 07/16/2024 2:43 PM EDT [facility] Specimen Type POC Capillary 07/16/2024 2:43 PM EDT [facility] Blood Capillary blood specimen / Unknown 07/16/2024 2:41 PM EDT 07/16/2024 2:43 PM EDT Vishal Cardona MD LAB POINT OF CARE TE ST DOCKED DEVICE UNSOLICITED RESULTS Final Result Performing Organization Address City/[facility] Co de Phone Number [facility] [address] [place] [address] * (ABNORMAL) POCT glucose meter (07/16/2024 11:19 AM EDT) POCT Glucose 200(H) 74 - 99 mg/dL [...] for testing. Comment 07/16/2024 11:21 AM EDT [facility] Venue Attendant ID Germania Taveras 07/16/2024 11:21 AM EDT [facility] Device ID [id number] 07/16/2024 11:21 AM EDT [facility] Specimen Type POC Capillary 07/16/2024 11:21 AM EDT [facility] Blood Capillary blood specimen / Unknown 07/16/2024 11:19 AM EDT 07/16/2024 11:21 AM EDT Vishal Cardona MD LAB POINT OF CARE TE ST DOCKED DEVICE UNSOLICITED RESULTS Final Result Performing Organization Address City/State/[facility] Co de Phone Number [facility] [address] [place] [address] * (ABNORMAL) POCT glucose meter (07/16/2024 6:51 AM EDT) [facility] POCT Glucose 285(H) 74 - 99 mg/dL 07/16/2024 6:53 AM EDT [facility] Comment:Accuracy of [...] for testing. Comment 07/16/2024 6:53 AM EDT [facility] Venue Attendant ID Usama Chowdary 07/16/2024 6:53 AM EDT [facility] Device ID [id number] 07/16/2024 6:53 AM EDT [facility] Specimen Type POC Capillary 07/16/2024 6:53 AM EDT [facility] Blood Capillary blood specimen / Unknown 07/16/2024 6:51 AM EDT 07/16/2024 6:53 AM EDT us Vishal Cardona MD LAB POINT OF CARE TE ST DOCKED DEVICE UNSOLICITED RESULTS Final Result [facility] [address] [place] [address] * (ABNORMAL) Reticulocytes, Blood (07/16/2024 4:22 AM EDT) Reticulocyte Absolute 94.8 40.0 - 110.0 10*3/uL LAB HEMATOLOGY METHOD 07/16/2024 3:47 PM EDT [facility] Immature Reticulocyte Fraction 24.2(H) 3.1 - 17.6 % LAB HEMATOLOGY METHOD 07/16/2024 3:47 PM EDT [facility] Reticulocyte Hemoglobin 29.7 28 - 38 pg LAB HEMATOLOGY METHOD 07/16/2024 3:47 PM EDT [facility] Reticulocyte Count 2.80(H) 0.90 - 2.50 % LAB HEMATOLOGY METHOD 07/16/2024 3:47 PM EDT [facility] Blood Venous blood specimen / Unknown Venipuncture / Unknown 07/16/2024 4:22 AM EDT 07/16/2024 4:26 AM EDT us Dc Torres MD LAB BLOOD ORDERABLES Final Result [facility] [address] [place] [address] * (ABNORMAL) Iron & Total Iron Binding Capacity, Plasma (Includes Transferrin) (07/16/2024 4:22 AM EDT) Iron, Plasma 19(L) 50 - 170 ug/dL 07/16/2024 8:33 AM EDT [facility] Transferrin, Plasma 174(L) 200 - 360 mg/dL 07/16/2024 8:33 AM EDT [facility] Total Iron Binding Capacity, Plasma 218(L) 240 - 450 ug/mL 07/16/2024 8:33 AM EDT [facility] Transferrin Saturation 9(L) 14 - 50 % 07/16/2024 8:33 AM EDT [facility] Blood Venous blood specimen / Unknown Venipuncture / Unknown 07/16/2024 4:22 AM EDT 07/16/2024 4:44 AM EDT Dc Torres MD LAB BLOOD ORDERABLES Final Result [facility] [address] [place] [address] * (ABNORMAL) CBC W/O Differential (07/16/2024 4:22 AM EDT) WBC Count 6.11 3.70 - 10.30 10*3/uL LAB HEMATOLOGY METHOD 07/16/2024 4:30 AM EDT [facility] RBC Count 3.29(L) 4.60 - 6.10 10*6/uL LAB HEMATOLOGY METHOD 07/16/2024 4:30 AM EDT [facility] HGB 9.4(L) 13.7 - 17.5 g/dL LAB HEMATOLOGY METHOD 07/16/2024 4:30 AM EDT [facility] HCT 29.2(L) 40.0 - 51.0 % LAB HEMATOLOGY METHOD 07/16/2024 4:30 AM EDT [facility] Platelet Count 111(L) 155 - 369 10*3/uL LAB HEMATOLOGY METHOD 07/16/2024 4:30 AM EDT [facility] MCV 89 79 - 98 fL LAB HEMATOLOGY METHOD 07/16/2024 4:30 AM EDT [facility] MCH 28.6 26.0 - 32.0 pg LAB HEMATOLOGY METHOD 07/16/2024 4:30 AM EDT [facility] MCHC 32.2 30.7 - 35.5 g/dL LAB HEMATOLOGY METHOD 07/16/2024 4:30 AM EDT [facility] RDW 16.9(H) 11.5 - 14.5 % LAB HEMATOLOGY METHOD 07/16/2024 4:30 AM EDT [facility] MPV 9.1 8.8 - 12.5 fL LAB HEMATOLOGY METHOD 07/16/2024 4:30 AM EDT [facility] nRBC 0.0 <=0.0 per 100 WBCs LAB HEMATOLOGY METHOD 07/16/2024 4:30 AM EDT [facility] Blood Venous blood specimen / Unknown Venipuncture / Unknown 07/16/2024 4:22 AM EDT 07/16/2024 4:26 AM EDT us Victor M Lopez Jeramy CONTRERASN LAB BLOOD ORDERABLES Final Re sult Performing Organization Address [facility]/ZIP Co de Phone Number [facility] [address] [place] [address] * Lactate, venous (07/16/2024 4:22 AM EDT) Lactate, Venous, Whole Blood 0.6 0.5 - 2.2 mmol/L LAB HEMATOLOGY METHOD 07/16/2024 4:39 AM EDT [facility] Blood Venous blood specimen / Unknown Venipuncture / Unknown 07/16/2024 4:22 AM EDT 07/16/2024 4:38 AM EDT Victor M Deshpande APRN LAB BLOOD ORDERABLES Final Re sult Performing Organization Address [facility] [place] [address] * Magnesium, Plasma (07/16/2024 4:22 AM EDT) Magnesium, Plasma 2.0 1.9 - 2.4 mg/dL 07/16/2024 5:28 AM EDT [facility] Blood Venous blood specimen / Unknown Venipuncture / Unknown 07/16/2024 4:22 AM EDT 07/16/2024 4:44 AM EDT us Victor M Deshpande [employer] LAB BLOOD ORDERABLES Final Re sult Performing Organization Address [facility] [place] [address] * (ABNORMAL) Renal Function Panel, Plasma (07/16/2024 4:22 AM EDT) Glucose, Plasma 292(H) 74 - 99 mg/dL 07/16/2024 5:28 AM EDT [facility] BUN, Plasma 13 8 - 23 mg/dL 07/16/2024 5:28 AM EDT [facility] Creatinine, Plasma 0.87 0.70 - 1.20 mg/dL 07/16/2024 5:28 AM EDT [facility] BUN/Creatinine Ratio 15 07/16/2024 5:28 AM EDT [facility] Sodium, Plasma 140 136 - 145 mmol/L 07/16/2024 5:28 AM EDT [facility] Potassium, Plasma 3.6 3.6 - 4.9 mmol/L 07/16/2024 5:28 AM EDT [facility] Chloride, Plasma 103 97 - 107 mmol/L 07/16/2024 5:28 AM EDT [facility] CO2, Plasma 26 22 - 29 mmol/L 07/16/2024 5:28 AM EDT [facility] Anion Gap 11 6 - 16 mmol/L 07/16/2024 5:28 AM EDT [facility] Total Calcium, Plasma 8.4(L) 8.9 - 10.2 mg/dL 07/16/2024 5:28 AM EDT [facility] Phosphorus, Plasma 3.1 2.5 - 4.5 mg/dL 07/16/2024 5:28 AM EDT [facility] Albumin, Plasma 2.9(L) 3.5 - 5.2 g/dL 07/16/2024 5:28 AM EDT [facility] eGFRcr 92.8 mL/min/1.7 3m*2 07/16/2024 5:28 AM EDT [facility] Comment:Reported eGFRcr in m L/min/1.73m2 is based the CKD-EPI 2020 equation that does not use a race coefficient. Blood Venous blood specimen / Unknown Venipuncture / Unknown 07/16/2024 4:22 AM EDT 07/16/2024 4:44 AM EDT us Victor M Deshpande APRN LAB BLOOD ORDERABLES Final Re sult [facility] [address] [place] [address] * (ABNORMAL) Prothrombin Time/INR (07/16/2024 4:22 AM EDT) Prothrombin Time 15.6(H) 12.0 - 14.3 sec 07/16/2024 4:39 AM EDT [facility] INR 1.3(H) 0.9 - 1.1 07/16/2024 4:39 AM EDT [facility] Blood Venous blood specimen / Unknown Venipuncture / Unknown 07/16/2024 4:22 AM EDT 07/16/2024 4:26 AM EDT Narrative [facility] - 07/16/2024 4:39 AM EDT OPTIMAL INR RANGES FOR PATIENT ON ORAL ANTICOAGULANT THERAPY Prevention of venous thromboembolism INR 2.0 to 3.0 In patients with heart disease: Atrial fibrillation INR 2.0 to 3.0 Valvular heart disease INR 2.0 to 3.0 Tissue heart valves INR 2.0 to 3.0 Mechanical prosthetic valves INR 2.5 to 3.5 Prevention of recurrent OR INR 2.5 to 3.5 Victor M Deshpande APRN LAB BLOOD ORDERABLES [place] [address] * Type and Screen (07/15/2024 11:25 PM EDT) ABO/Rh A Positive 07/15/2024 11:08 PM EDT [facility] Antibody Screen Negative 07/15/2024 11:08 PM EDT [facility] Specimen Expiration 07/18/2024 23:59 07/15/2024 11:08 PM EDT [facility] Blood Venous blood specimen / Unknown Venipuncture / Unknown 07/15/2024 11:25 PM EDT 07/15/2024 11:32 PM EDT us Victor M Deshpande APRN LAB BLOOD BANK TEST ORDERABLE S Final Result BLOOD BANK [address] [place] [address], [place] * (ABNORMAL) Hemoglobin and Hematocrit, Blood (07/15/2024 11:25 PM EDT) HGB 9.2(L) 13.7 - 17.5 g/dL LAB HEMATOLOGY METHOD 07/16/2024 12:03 AM EDT [facility] HCT 28.8(L) 40.0 - 51.0 % LAB HEMATOLOGY METHOD 07/16/2024 12:03 AM EDT [facility] Blood Venous blood specimen / Unknown Venipuncture / Unknown 07/15/2024 11:25 PM EDT 07/15/2024 11:33 PM EDT Victor M Deshpande APRN LAB BLOOD ORDERABLES Final Re sult [facility] [address] [place] [address] * (ABNORMAL) Multi Drug Resistance Test (07/15/2024 11:25 PM EDT) Pathologist [facility] Culture Methicillin-Resis tant Staphylococcus aureus(AA) 07/17/2024 7:34 AM EDT [facility] Comment: The organism value for this result has been updated. These results have been appended to the previously preliminary verified report. <null> has been updated to reportable. Swab (Nares and Christiane Rectal) Non-blood Collection / Unknown 07/15/2024 11:25 PM EDT 07/16/2024 12:26 AM EDT Narrative [facility] - 07/17/2024 7:34 AM EDT This test was developed and its performance characteristics determined by the [facility]. Although the media is FDA-approved, it is not FDA-approved for all specimen types submitted. The FDA has determined that such clearance or approval is not necessary. This test is used for surveillance purposes. It should not be regarded as investigational or for research. The [facility] is certified under the Clinical Laboratory Improvement Amendments of 1988 (CLIA-88) as qualified to perform high complexity clinical laboratory testing. us Victor M Deshpande APRN LAB MICROBIOLOGY - GENERAL OR DERABLES Final Result Performing Organization Address City/[facility] Co de Phone Number [facility] [address] [place] [address] * (ABNORMAL) POCT glucose meter (07/15/2024 9:18 PM EDT) Pathologist [facility] POCT Glucose 242(H) 74 - 99 mg/dL 07/15/2024 9:20 PM EDT [facility] Comment:Accuracy of [...] for testing. Comment 07/15/2024 9:20 PM EDT [facility]ALTH[facility]ARE LAB Venue Attendant ID Zachariah Mcnair 07/15/2024 9:20 PM EDT [facility]ALTH[facility]ARE LAB Device ID [id number] 07/15/2024 9:20 PM EDT [facility] Specimen Type POC Capillary 07/15/2024 9:20 PM EDT [facility] Blood Capillary blood specimen / Unknown 07/15/2024 9:18 PM EDT 07/15/2024 9:20 PM EDT Vishal Cardona MD LAB POINT OF CARE TE ST DOCKED DEVICE UNSOLICITED RESULTS Final Result Performing Organization Address [facility] Co de Phone Number [facility] [address] [place] [address] * ECG Adult (07/15/2024 8:56 PM EDT) EKG DIAGNOSIS CLASS Abnormal MUSE ECG Ventricular Rate 63 BPM MUSE ECG Atrial Rate 63 BPM MUSE ECG CO Interval 162 ms MUSE ECG QRSD Interval 112 ms MUSE ECG QT Interval 482 ms MUSE ECG QTC Interval 493 ms MUSE ECG P [place] 33 degrees MUSE ECG R [place] -40 degrees MUSE ECG T Wave [place] 6 degrees MUSE ECG Diagnosis Normal sinus [...] 3:01 PM EDT us Victor M Deshpande [employer] ECG ORDERABLES Final Result MUSE ECG * (ABNORMAL) Pain Management, Quantitative Urine Drug Testing (07/15/2024 8:33 PM EDT) [facility] [place] Alprazolam <20 <20 ng/mL 07/17 7:08 AM EDT [facility] [place] Midazolam <20 <20 ng/mL 2024 7:08 AM EDT [facility] [place] Triazolam <20 <20 ng/mL 2024 7:08 AM EDT [facility] Alprazolam <10 <10 ng/mL 07/17/2024 7:08 AM EDT [facility] Aminoclonazepam <20 <20 ng/mL 7:08 AM EDT [facility] Amphetamine <50 <50 ng/mL 07/17/2024 7:08 AM EDT [facility] Benzoylecgonine <50 <50 ng/mL 7:08 AM EDT [facility] Buprenorphine <10 <10 ng/mL 07/17/2024 7:08 AM EDT [facility] Buprenorphine Glucuronide <50 <50 ng/mL 07/17/2024 7:08 AM EDT [facility] Butalbital <50 <50 ng/mL 07/17/2024 7:08 AM EDT [facility] 9 Carboxy THC <10 <10 ng/mL 07/17/2024 7:08 AM EDT [facility] 9 Carboxy THC Glucuronide <25 <25 ng/mL 07/17/2024 7:08 AM EDT [facility] Clonazepam <10 <10 ng/mL 07/17/2024 7:08 AM EDT [facility] Codeine <50 <50 ng/mL 07/17/2024 7:08 AM EDT [facility] Codeine Glucuronide <50 <50 ng/mL 07/17 7:08 AM EDT [facility] Cyclobenzaprine <50 <50 ng/mL 7:08 AM EDT [facility] Desmethyl Tramadol <50 <50 ng/mL 2024 7:08 AM EDT [facility] Diazepam <10 <10 ng/mL 07/17/2024 7:08 AM EDT [facility] EDDP - Methadone Metabolite <50 <50 ng/mL 07/17/2024 7:08 AM EDT [facility] Fentanyl <1 <1 ng/mL 07/17/2024 7:08 AM EDT [facility] Hydrocodone >1,000(H) <50 ng/mL 07/17/2024 7:08 AM EDT [facility] Hydromorphone <50 <50 ng/mL 07/17/2024 7:08 AM EDT [facility] Hydromorphone Glucuronide >1,000(H) <50 ng/mL 07/17/2024 7:08 AM EDT [facility] Lorazepam <20 <20 ng/mL 07/17/2024 7:08 AM EDT [facility] Lorazepam Glucuronide <50 <50 ng/mL 07/17/2024 7:08 AM EDT [facility] MDA <50 <50 ng/mL 07/17/2024 7:08 AM EDT [facility] MDMA <50 <50 ng/mL 07/17/2024 7:08 AM EDT [facility] Meperidine <50 <50 ng/mL 07/17/2024 7:08 AM EDT [facility] Methadone <50 <50 ng/mL 07/17/2024 7:08 AM EDT [facility] Methamphetamine <50 <50 ng/mL 7:08 AM EDT [facility] Methylphenidate <50 <50 ng/mL 7:08 AM EDT [facility] 6 Monoacetyl morphine <10 <10 ng/mL 07/17/2024 7:08 AM EDT [facility] Morphine <50 <50 ng/mL 07/17/2024 7:08 AM EDT [facility] Morphine Glucuronide <50 <50 ng/mL 07/08 7:08 AM EDT [facility] Naloxone <50 <50 ng/mL 07/17/2024 7:08 AM EDT [facility] Naloxone Glucuronide <50 <50 ng/mL 07/08 7:08 AM EDT [facility] Norbuprenorphine <10 <10 ng/mL 07/18/19 7:08 AM EDT [facility] Norbuprenorphine Glucuronide <50 <50 ng/mL 07/17/2024 7:08 AM EDT [facility] Nordiazepam <20 <20 ng/mL 07/17/2024 7:08 AM EDT [facility] Norfentanyl <2 <2 ng/mL 07/17/2024 7:08 AM EDT [facility] Normeperidine <50 <50 ng/mL 07/17/2024 7:08 AM EDT [facility] PCP Quant, Ur <50 <50 ng/mL 07/17/2024 7:08 AM EDT [facility] Phenobarbital <50 <50 ng/mL 07/17/2024 7:08 AM EDT [facility] Oxazepam <20 <20 ng/mL 07/17/2024 7:08 AM EDT [facility] Oxazepam Glucuronide <50 <50 ng/mL 07/08 7:08 AM EDT [facility] Oxycodone <50 <50 ng/mL 07/17/2024 7:08 AM EDT [facility] Oxymorphone <50 <50 ng/mL 07/17/2024 7:08 AM EDT [facility] Oxymorphone Glucuronide <50 <50 ng/mL 07/17/2024 7:08 AM EDT [facility] Secobarbital <50 <50 ng/mL 07/17/2024 7:08 AM EDT [facility] Tramadol <50 <50 ng/mL 07/17/2024 7:08 AM EDT [facility] Temazepam <20 <20 ng/mL 07/17/2024 7:08 AM EDT [facility] Temazepam Glucuronide <50 <50 ng/mL 07/17/2024 7:08 AM EDT [facility] Urine Urine specimen obtained by clean catch procedure / Unknown Non-blood Collection / Unknown 07/15/2024 8:33 PM EDT 07/15/2024 8:52 PM EDT Narrative [facility] - 07/17/2024 7:08 AM EDT [...] laboratory. Test performed by LC-MS/MS at the [facility]. This test was developed and its performance characteristics determined by [facility]. It has not been cleared or approved by the FDA. The laboratory is regulated under CLIA as qualified to perform high-complexity testing. This test is used for clinical purposes. Victor M Deshpande APRN LAB URINE ORDERABLES Final Re sult [facility] [address] [place] [address] * (ABNORMAL) Comprehensive Urine Drug Screening, Qualitative Assay, >= 27 Drug Classes (58:33 PM EDT) Acetaminophen Positive(A) Negative 07/16/2024 11:24 PM EDT [facility] Alprazolam Negative Negative 07/16/2024 11:24 PM EDT [facility] Amantadine Negative Negative 07/16/2024 11:24 PM EDT [facility] Amitriptyline Negative Negative 07/16/2024 11:24 PM EDT [facility] Amphetamine Negative Negative 07/16/2024 11:24 PM EDT [facility] Atenolol Negative Negative 07/16/2024 11:24 PM EDT [facility] Benzoylecgonine Negative Negative 11:24 PM EDT [facility] Bisoprolol Negative Negative 07/16/2024 11:24 PM EDT [facility] Bupropion Negative Negative 07/16/2024 11:24 PM EDT [facility] Butalbital Negative Negative 07/16/2024 11:24 PM EDT [facility] Carbamazepine Negative Negative 07/16/2024 11:24 PM EDT [facility] Carisoprodol Negative Negative 07/16/2024 11:24 PM EDT [facility] Chlorpheniramine Negative Negative 07/17/19 11:24 PM EDT [facility] Citalopram Negative Negative 07/16/2024 11:24 PM EDT [facility] Clindamycin Negative Negative 07/16/2024 11:24 PM EDT [facility] Clonidine Negative Negative 07/16/2024 11:24 PM EDT [facility] Clopidogrel / Ticlopidine Negative Negative 07/16/2024 11:24 PM EDT [facility] Cocaethylene Negative Negative 07/16/2024 11:24 PM EDT [facility] Cocaine Negative Negative 07/16/2024 11:24 PM EDT [facility] Codeine Negative Negative 07/16/2024 11:24 PM EDT [facility] Cyclobenzaprine Negative Negative 11:24 PM EDT [facility] Desvenlafaxine Negative Negative 07/16/2024 11:24 PM EDT [facility] Dextromethorphan Negative Negative 07/17/19 11:24 PM EDT [facility] Diazepam Negative Negative 07/16/2024 11:24 PM EDT [facility] Diltiazem Negative Negative 07/16/2024 11:24 PM EDT [facility] Diphenhydramine Negative Negative 11:24 PM EDT [facility] Doxepine Negative Negative 07/16/2024 11:24 PM EDT [facility] Doxylamine Negative Negative 07/16/2024 11:24 PM EDT [facility] EDDP-Methadone metabolite Negative Negative 07/16/2024 11:24 PM EDT [facility] Fentanyl Negative Negative 07/16/2024 11:24 PM EDT [facility] Fluconazole Negative Negative 07/16/2024 11:24 PM EDT [facility] Fluoxetine Negative Negative 07/16/2024 11:24 PM EDT [facility] Guaifenesin Negative Negative 07/16/2024 11:24 PM EDT [facility] Haloperidol Negative Negative 07/16/2024 11:24 PM EDT [facility] Heroin/6-CHUNG Negative Negative 07/16/2024 11:24 PM EDT [facility] Hydrocodone Positive(A) Negative 07/16/2024 11:24 PM EDT [facility] Hydroxyzine / Cetirizine metabolite Negative Negative 07/16/2024 11:24 PM EDT [facility] Ibuprofen Negative Negative 07/16/2024 11:24 PM EDT [facility] Imipramine Negative Negative 07/16/2024 11:24 PM EDT [facility] Ketamine Negative Negative 07/16/2024 11:24 PM EDT [facility] Labetolol Negative Negative 07/16/2024 11:24 PM EDT [facility] Lamotrigine Negative Negative 07/16/2024 11:24 PM EDT [facility] Levetiracetam Negative Negative 07/16/2024 11:24 PM EDT [facility] Lidocaine Negative Negative 07/16/2024 11:24 PM EDT [facility] MDA Negative Negative 07/16/2024 11:24 PM EDT [facility] MDMA Negative Negative 07/16/2024 11:24 PM EDT [facility] Memantine Negative Negative 07/16/2024 11:24 PM EDT [facility] Meperidine Negative Negative 07/16/2024 11:24 PM EDT [facility] Meprobamate Negative Negative 07/16/2024 11:24 PM EDT [facility] Metaxalone Negative Negative 07/16/2024 11:24 PM EDT [facility] Methamphetamine Negative Negative 11:24 PM EDT [facility] Methocarbamol Negative Negative 07/16/2024 11:24 PM EDT [facility] Methylecgonine Negative Negative 07/16/2024 11:24 PM EDT [facility] Metoclopramide Negative Negative 07/16/2024 11:24 PM EDT [facility] Metoprolol Positive(A) Negative 07/16/2024 11:24 PM EDT [facility] Metronidazole Negative Negative 07/16/2024 11:24 PM EDT [facility] Midazolam Negative Negative 07/16/2024 11:24 PM EDT [facility] Midazolam Metabolite Negative Negative 07/16/2024 11:24 PM EDT [facility] Mirtazapine Negative Negative 07/16/2024 11:24 PM EDT [facility] Misc Test Result Positive(A) Negative 025 11:24 PM EDT [facility] Comment: Hydromorphone detected. Gabapentin detected. Hydroxyzine metabolite/Cetirizine metabolite detected. Naproxen Negative Negative 07/16/2024 11:24 PM EDT [facility] Nefazodone Negative Negative 07/16/2024 11:24 PM EDT [facility] Norfentanyl Negative Negative 07/16/2024 11:24 PM EDT [facility] Nortriptyline Negative Negative 07/16/2024 11:24 PM EDT [facility] Ordanstron Negative Negative 07/16/2024 11:24 PM EDT [facility] Oxcarbazepine Negative Negative 07/16/2024 11:24 PM EDT [facility] Oxycodone Negative Negative 07/16/2024 11:24 PM EDT [facility] Paroxethine Negative Negative 07/16/2024 11:24 PM EDT [facility] Phenobarbital Negative Negative 07/16/2024 11:24 PM EDT [facility] Phentermine Negative Negative 07/16/2024 11:24 PM EDT [facility] Phenytoin Negative Negative 07/16/2024 11:24 PM EDT [facility] Primidone Negative Negative 07/16/2024 11:24 PM EDT [facility] Promethazine Negative Negative 07/16/2024 11:24 PM EDT [facility] Propofol Negative Negative 07/16/2024 11:24 PM EDT [facility] Propranolol Negative Negative 07/16/2024 11:24 PM EDT [facility] Quetiapine Negative Negative 07/16/2024 11:24 PM EDT [facility] Quinine Negative Negative 07/16/2024 11:24 PM EDT [facility] Rantidine Negative Negative 07/16/2024 11:24 PM EDT [facility] Sertraline Negative Negative 07/16/2024 11:24 PM EDT [facility] Spironolactone Negative Negative 07/16/2024 11:24 PM EDT [facility] Tizanidine Negative Negative 07/16/2024 11:24 PM EDT [facility] Topiramate Negative Negative 07/16/2024 11:24 PM EDT [facility] Tramadol Negative Negative 07/16/2024 11:24 PM EDT [facility] Trazadone/ Trazadone metabolite Negative Negative 07/16/2024 11:24 PM EDT [facility] Trimethoprim Negative Negative 07/16/2024 11:24 PM EDT [facility] Valproic Acid Negative Negative 07/16/2024 11:24 PM EDT [facility] Venlafaxine Negative Negative 07/16/2024 11:24 PM EDT [facility] Verapamil Negative Negative 07/16/2024 11:24 PM EDT [facility] Zolpidem Negative Negative 07/16/2024 11:24 PM EDT [facility] Xylazine Negative Negative 07/16/2024 11:24 PM EDT [facility] Urine Urine specimen obtained by clean catch procedure / Unknown Non-blood Collection / Unknown 07/15/2024 8:33 PM EDT 07/15/2024 8:52 PM EDT us Victor M Deshpande [employer] LAB URINE ORDERABLES Final Re sult [facility] [address] [place] [address] * Streptococcus pneumoniae and Legionella Urinary Antigen (07/15/2024 8:33 PM EDT) [facility] Legionella pneumophila serogroup 1 Antigen Result (Urine) Negative Negative 07/15/2024 9:24 PM EDT [facility] Streptococcus pneumoniae Antigen Result (Urine) Negative Negative 07/15/2024 9:24 PM EDT [facility] Urine Urine specimen obtained by clean catch procedure / Unknown Non-blood Collection / Unknown 07/15/2024 8:33 PM EDT 07/15/2024 9:02 PM EDT Victor M Deshpande APRN LAB MICROBIOLOGY - GENERAL OR DERABLES Final Result [facility] [address] [place] [address] * Nasopharyngeal Respiratory Panel (07/15/2024 8:33 PM EDT) [facility] Nasopharyngeal Respiratory PCR Interpretation Not Detected for all analytes Not Detected for all analytes 07/15/2024 10:50 PM EDT [facility] Swab Nasopharyngeal structure / Unknown Non-blood Collection / Unknown 07/15/2024 8:33 PM EDT 07/15/2024 9:02 PM EDT Narrative [facility] - 07/15/2024 10:50 PM EDT [...] Respiratory PCR Panel is performed using the 5minutes instrument. This test is FDA approved for use with Nasopharyngeal swabs only. This test is used for clinical purposes. It should not be regarded as investigational or for research. The [facility] is certified under the Clinical Laboratory Improvement Amendments of 1988 (CLIA-88) as qualified to perform high complexity clinical laboratory testing. Victor M Deshpande APRN LAB MICROBIOLOGY - GENERAL OR DERABLES Final Result Performing Organization Address [facility] Co de Phone Number [facility] [address] [place] [address] * Urine Kat Panel (07/15/2024 8:33 PM EDT) Extra Reflex urine culture not indicated 07/16/2024 5:02 AM EDT [facility] Comment: Previously prelim verified as Specimen evaluation [...] 8:33 PM EDT 07/15/2024 8:52 PM EDT Chava Stephenson MD LAB URINE ORDERABLES Final Result Performing Organization Address [facility] Co de Phone Number [facility] [address] [place] [address] * (ABNORMAL) Urinalysis with reflex microscopic (Culture NOT Included) (07/15/2024 8:33 PM EDT) Color, Urine Yellow LAB URINALYSIS - AUTOMATED METHOD 07/15/2024 8:50 PM EDT [facility] Clarity, Urine Clear LAB URINALYSIS - AUTOMATED METHOD 07/15/2024 8:50 PM EDT [facility] Spec [place], Urine 1.016 1.005 - 1.030 LAB URINALYSIS - AUTOMATED METHOD 07/15/2024 8:50 PM EDT [facility] pH, Urine 6.5 5.0 - 8.0 LAB URINALYSIS - AUTOMATED METHOD 07/15/2024 8:50 PM EDT [facility] Protein, Urine 30(A) Negative mg/dL LAB URINALYSIS - AUTOMATED METHOD 07/15/2024 8:50 PM EDT [facility] Glucose, Urine Negative Negative mg/dL LAB URINALYSIS - AUTOMATED METHOD 07/15/2024 8:50 PM EDT [facility] Ketones, Urine Negative Negative mg/dL LAB URINALYSIS - AUTOMATED METHOD 07/15/2024 8:50 PM EDT [facility] Blood, Urine Negative Negative LAB URINALYSIS - AUTOMATED METHOD 07/15/2024 8:50 PM EDT [facility] Bilirubin, Urine Negative Negative LAB URINALYSIS - AUTOMATED METHOD 07/15/2024 8:50 PM EDT [facility] Urobilinogen, Urine 1.0 0.2 to 1.0 mg/dL LAB URINALYSIS - AUTOMATED METHOD 07/15/2024 8:50 PM EDT [facility] Leukocytes, Urine Negative Negative LAB URINALYSIS - AUTOMATED METHOD 07/15/2024 8:50 PM EDT [facility] Nitrite, Urine Negative Negative LAB URINALYSIS - AUTOMATED METHOD 07/15/2024 8:50 PM EDT [facility] Urine Urine specimen obtained by clean catch procedure / Unknown Non-blood Collection / Unknown 07/15/2024 8:33 PM EDT 07/15/2024 8:47 PM EDT us Chava Stephenson MD LAB URINE ORDERABLES Final Result [facility] [address] [place] [address] * (ABNORMAL) N-Terminal Probnp, Plasma (07/15/2024 7:49 PM EDT) N-Terminal, PROBNP, Plasma 933(H) 0 - 899 pg/mL 07/15/2024 9:09 PM EDT [facility] Blood Venous blood specimen / Unknown Venipuncture / Unknown 07/15/2024 7:49 PM EDT 07/15/2024 7:56 PM EDT us Victor M Deshpande [employer] LAB BLOOD ORDERABLES Final Re sult [facility] [address] [place] [address] * (ABNORMAL) Blood gas panel, venous (07/15/2024 7:49 PM EDT) pH, Venous 7.45(H) 7.32 - 7.43 LAB HEMATOLOGY METHOD 07/15/2024 7:56 PM EDT [facility] pCO2, Venous 44 40 - 55 mmHg LAB HEMATOLOGY METHOD 07/15/2024 7:56 PM EDT [facility] pO2, Venous 51(H) 25 - 40 mmHg LAB HEMATOLOGY METHOD 07/15/2024 7:56 PM EDT [facility] SO2, Measured, Venous 87(H) 65 - 80 % LAB HEMATOLOGY METHOD 07/15/2024 7:56 PM EDT [facility] Base Excess, Venous 6.0(H) -2.0 - 3.0 mmol/L LAB HEMATOLOGY METHOD 07/15/2024 7:56 PM EDT [facility] Bicarbonate, Calculated, Venous 31(H) 22 - 26 mmol/L LAB HEMATOLOGY METHOD 07/15/2024 7:56 PM EDT [facility] Hematocrit, Whole Blood 31.3(L) 40.0 - 51.0 % LAB HEMATOLOGY METHOD 07/15/2024 7:56 PM EDT [facility] Sodium, Whole Blood 138 136 - 145 mmol/L LAB HEMATOLOGY METHOD 07/15/2024 7:56 PM EDT [facility] Potassium, Whole Blood 3.6 3.6 - 4.9 mmol/L LAB HEMATOLOGY METHOD 07/15/2024 7:56 PM EDT [facility] Chloride, Whole Blood 101 97 - 107 mmol/L LAB HEMATOLOGY METHOD 07/15/2024 7:56 PM EDT [facility] Glucose, Whole Blood 243(H) 74 - 99 mg/dL LAB HEMATOLOGY METHOD 07/15/2024 7:56 PM EDT [facility] Lactate, Venous, Whole Blood 0.7 0.5 - 2.2 mmol/L LAB HEMATOLOGY METHOD 07/15/2024 7:56 PM EDT [facility] Ionized Calcium, Whole Blood 4.6 4.6 - 5.1 mg/dL LAB HEMATOLOGY METHOD 07/15/2024 7:56 PM EDT [facility] Blood Venous blood specimen / Unknown Venipuncture / Unknown 07/15/2024 7:49 PM EDT 07/15/2024 7:54 PM EDT us Victor M Deshpande APRN LAB BLOOD ORDERABLES Final Re sult Performing Organization Address City/[facility]/ZIP Co de Phone Number [facility] [address] [place] [address] * Blood Culture (Aerobic/Anaerobet Set) (07/15/2024 7:49 PM EDT) Culture No growth at day 5 07/20/2024 9:01 PM EDT [facility] Blood Venous blood specimen / Unknown Venipuncture / Unknown 07/15/2024 7:49 PM EDT 07/15/2024 8:07 PM EDT us Victor M Deshpande APRN LAB MICROBIOLOGY - GENERAL OR DERABLES Final Result Performing Organization Address [facility]/ZIP Co de Phone Number [facility] [address] [place] [address] * (ABNORMAL) Procalcitonin, Plasma (07/15/2024 7:49 PM EDT) Procalcitonin, Plasma 5.25(H) <0.09 ng/mL 07/15/2024 8:57 PM EDT [facility] Blood Venous blood specimen / Unknown Venipuncture / Unknown 07/15/2024 7:49 PM EDT 07/15/2024 7:56 PM EDT Narrative [facility] - 07/15/2024 8:57 PM EDT [...] predict 28 day mortality risk. Please consult [email or web address]-[email or web address]-[email or web address] for more information. Test performed at [facility]. Victor M Deshpande APRN LAB BLOOD ORDERABLES Final Re sult Performing Organization Address [facility] Co de Phone Number [facility] [address] [place] [address] * Blood Culture (Aerobic/Anaerobet Set) (07/15/2024 7:49 PM EDT) Culture No growth at day 5 07/20/2024 9:01 PM EDT [facility] Blood Venous blood specimen / Unknown Venipuncture / Unknown 07/15/2024 7:49 PM EDT 07/15/2024 8:07 PM EDT Victor M Deshpande APRN LAB MICROBIOLOGY - GENERAL OR DERABLES Final Result Performing Organization Address [facility] Co de Phone Number [facility] [address] [place] [address] * (ABNORMAL) Troponin T, High Sensitivity, 2 Hour, Plasma (07/15/2024 7:11 PM EDT) Troponin T, High Sensitivity, 2 Hour 48(H) <19 ng/L 07/15/2024 7:49 PM EDT [facility] Troponin Delta 7 <10 ng/L 07/15/2024 7:49 PM EDT [facility] Troponin Delta Interpretation Not Significant 07/15/2024 7:49 PM EDT [facility] Comment:Not Significant. No acute change in troponin observed between the baseline and 2 hour samples. Blood Venous blood specimen / Unknown Venipuncture / Unknown 07/15/2024 7:11 PM EDT 07/15/2024 7:21 PM EDT us Chava Stephenson MD LAB BLOOD ORDERABLES Final Result [facility] [address] [place] [address] * CT Face wo IV Contrast (07/15/2024 [...] 6:21 PM Final report signed by Liz Khna MD on 07/15/2024 6:37 PM Narrative 07/15/2024 [...] Total DLP (Dose-Length Product): 3621.63 mGy.cm (accession [id number]), 3621.63 mGy.cm (accession [id number]), 3621.63 mGy.cm (accession [id number]), 3621.63 mGy.cm (accession [id number]), 3621.63 mGy.cm (accession [id number]). Please note: The reported value represents the [...] Total DLP (Dose-Length Product): 3621.63 mGy.cm (accession [id number]),3621.63 mGy.cm (accession [id number]), 3621.63 mGy.cm (accession [id number]),3621.63 mGy.cm (accession [id number]), 3621.63 mGy.cm (accession [id number]).Please note: The reported value represents the total [...] Total DLP (Dose-Length Product): 3621.63 mGy.cm (accession [id number]), 3621.63 mGy.cm (accession [id number]), 3621.63 mGy.cm (accession [id number]), 3621.63 mGy.cm (accession [id number]), 3621.63 mGy.cm (accession [id number]). Please note: The reported value represents the [...] Total DLP (Dose-Length Product): 3621.63 mGy.cm (accession [id number]),3621.63 mGy.cm (accession [id number]), 3621.63 mGy.cm (accession [id number]),3621.63 mGy.cm (accession [id number]), 3621.63 mGy.cm (accession [id number]).Please note: The reported value represents the total [...] Total DLP (Dose-Length Product): 3621.63 mGy.cm (accession [id number]), 3621.63 mGy.cm (accession [id number]), 3621.63 mGy.cm (accession [id number]), 3621.63 mGy.cm (accession [id number]), 3621.63 mGy.cm (accession [id number]). Please note: The reported value represents the [...] Total DLP (Dose-Length Product): 3621.63 mGy.cm (accession [id number]),3621.63 mGy.cm (accession [id number]), 3621.63 mGy.cm (accession [id number]),3621.63 mGy.cm (accession [id number]), 3621.63 mGy.cm (accession [id number]).Please note: The reported value represents the total [...] Total DLP (Dose-Length Product): 3621.63 mGy.cm (accession [id number]), 3621.63 mGy.cm (accession [id number]), 3621.63 mGy.cm (accession [id number]), 3621.63 mGy.cm (accession [id number]), 3621.63 mGy.cm (accession [id number]). Please note: The reported value represents the [...] Total DLP (Dose-Length Product): 3621.63 mGy.cm (accession [id number]),3621.63 mGy.cm (accession [id number]), 3621.63 mGy.cm (accession [id number]),3621.63 mGy.cm (accession [id number]), 3621.63 mGy.cm (accession [id number]).Please note: The reported value represents the total [...] 6:21 PM Final report signed by Liz Kahn MD on 07/15/2024 6:37 PM Chava Stephenson [...] Total DLP (Dose-Length Product): 3621.63 mGy.cm (accession [id number]), 3621.63 mGy.cm (accession [id number]), 3621.63 mGy.cm (accession [id number]), 3621.63 mGy.cm (accession [id number]), 3621.63 mGy.cm (accession [id number]). Please note: The reported value represents the [...] Total DLP (Dose-Length Product): 3621.63 mGy.cm (accession [id number]),3621.63 mGy.cm (accession [id number]), 3621.63 mGy.cm (accession [id number]),3621.63 mGy.cm (accession [id number]), 3621.63 mGy.cm (accession [id number]).Please note: The reported value represents the total [...] ult * PT-INR (07/15/2024 5:03 PM EDT) Pathologist [facility] Prothrombin Time 14.3 12.0 - 14.3 sec 07/15/2024 5:19 PM EDT [facility] INR 1.1 0.9 - 1.1 07/15/2024 5:19 PM EDT [facility] Blood Venous blood specimen / Unknown Venipuncture / Unknown 07/15/2024 5:03 PM EDT 07/15/2024 5:06 PM EDT Narrative [facility] - 07/15/2024 5:19 PM EDT OPTIMAL INR RANGES FOR PATIENT ON ORAL ANTICOAGULANT THERAPY Prevention of venous thromboembolism INR 2.0 to 3.0 In patients with heart disease: Atrial fibrillation INR 2.0 to 3.0 Valvular heart disease INR 2.0 to 3.0 Tissue heart valves INR 2.0 to 3.0 Mechanical prosthetic valves INR 2.5 to 3.5 Prevention of recurrent OR INR 2.5 to 3.5 Chava Stephenson MD LAB BLOOD ORDERABLES Final Result [facility] [address] [place] [address] * (ABNORMAL) CBC w/diff (07/15/2024 5:03 PM EDT) WBC Count 9.39 3.70 - 10.30 10*3/uL LAB HEMATOLOGY METHOD 07/15/2024 5:09 PM EDT [facility] RBC Count 3.49(L) 4.60 - 6.10 10*6/uL LAB HEMATOLOGY METHOD 07/15/2024 5:09 PM EDT [facility] HGB 9.9(L) 13.7 - 17.5 g/dL LAB HEMATOLOGY METHOD 07/15/2024 5:09 PM EDT [facility] HCT 30.7(L) 40.0 - 51.0 % LAB HEMATOLOGY METHOD 07/15/2024 5:09 PM EDT [facility] Platelet Count 114(L) 155 - 369 10*3/uL LAB HEMATOLOGY METHOD 07/15/2024 5:09 PM EDT [facility] 88 79 - 98 fL LAB HEMATOLOGY METHOD 07/15/2024 5:09 PM EDT [facility] MCH 28.4 26.0 - 32.0 pg LAB HEMATOLOGY METHOD 07/15/2024 5:09 PM EDT [facility] MCHC 32.2 30.7 - 35.5 g/dL LAB HEMATOLOGY METHOD 07/15/2024 5:09 PM EDT [facility] RDW 16.7(H) 11.5 - 14.5 % LAB HEMATOLOGY METHOD 07/15/2024 5:09 PM EDT [facility] MPV 9.1 8.8 - 12.5 fL LAB HEMATOLOGY METHOD 07/15/2024 5:09 PM EDT [facility] nRBC 0.0 <=0.0 per 100 WBCs LAB HEMATOLOGY METHOD 07/15/2024 5:09 PM EDT [facility] Differential Type Automated LAB HEMATOLOGY METHOD 07/15/2024 5:09 PM EDT [facility] Neutrophils % 78 % LAB HEMATOLOGY METHOD 07/15/2024 5:09 PM EDT [facility] Lymphocytes % 11 % LAB HEMATOLOGY METHOD 07/15/2024 5:09 PM EDT [facility] Monocytes % 9 % LAB HEMATOLOGY METHOD 07/15/2024 5:09 PM EDT [facility] Eosinophils % 1 % LAB HEMATOLOGY METHOD 07/15/2024 5:09 PM EDT [facility] Basophils % 1 % LAB HEMATOLOGY METHOD 07/15/2024 5:09 PM EDT [facility] Immature Granulocytes % 0 % LAB HEMATOLOGY METHOD 07/15/2024 5:09 PM EDT [facility] Neutrophils Absolute 7.37(H) 1.60 - 6.10 10*3/uL LAB HEMATOLOGY METHOD 07/15/2024 5:09 PM EDT [facility] Lymphocytes Absolute 0.99(L) 1.20 - 3.90 10*3/uL LAB HEMATOLOGY METHOD 07/15/2024 5:09 PM EDT [facility] Monocytes Absolute 0.88 0.30 - 0.90 10*3/uL LAB HEMATOLOGY METHOD 07/15/2024 5:09 PM EDT [facility] Eosinophils Absolute 0.07 0.00 - 0.50 10*3/uL LAB HEMATOLOGY METHOD 07/15/2024 5:09 PM EDT [facility] Basophils Absolute 0.05 0.00 - 0.10 10*3/uL LAB HEMATOLOGY METHOD 07/15/2024 5:09 PM EDT [facility] Immature Granulocytes Absolute 0.03 0.00 - 0.06 10*3/uL LAB HEMATOLOGY METHOD 07/15/2024 5:09 PM EDT [facility] Blood Venous blood specimen / Unknown Venipuncture / Unknown 07/15/2024 5:03 PM EDT 07/15/2024 5:06 PM EDT Narrative [facility] - 07/15/2024 5:09 PM EDT Therapeutic decision making should be based on absolute values, rather than percentages. Chava Stephenson MD LAB BLOOD ORDERABLES Final Result [facility] [address] [place] [address] * (ABNORMAL) Troponin now and 120 min (07/15/2024 5:03 PM EDT) Troponin T, High Sensitivity, 0 Hour 41(H) <19 ng/L 07/15/2024 5:58 PM EDT [facility] Blood Venous blood specimen / Unknown Venipuncture / Unknown 07/15/2024 5:03 PM EDT 07/15/2024 5:20 PM EDT Chava Stephenson MD LAB BLOOD ORDERABLES Final Result [facility] [address] [place] [address] * (ABNORMAL) Lipase (07/15/2024 5:03 PM EDT) Lipase, Plasma 7(L) 19 - 63 U/L 07/15/2024 6:17 PM EDT [facility] Blood Venous blood specimen / Unknown Venipuncture / Unknown 07/15/2024 5:03 PM EDT 07/15/2024 5:20 PM EDT Chava Stephenson MD LAB BLOOD ORDERABLES Final Result Performing Organization Address City/[facility]/ZIP Co de Phone Number [facility] [address] [place] [address] * (ABNORMAL) Magnesium (07/15/2024 5:03 PM EDT) Magnesium, Plasma 1.6(L) 1.9 - 2.4 mg/dL 07/15/2024 5:58 PM EDT [facility] Blood Venous blood specimen / Unknown Venipuncture / Unknown 07/15/2024 5:03 PM EDT 07/15/2024 5:20 PM EDT Chava Stephenson MD LAB BLOOD ORDERABLES Final Result Performing Organization Address [facility]/ZIP Co de Phone Number [facility] [address] [place] [address] * (ABNORMAL) CMP (07/15/2024 5:03 PM EDT) Glucose, Plasma 265(H) 74 - 99 mg/dL 07/15/2024 5:58 PM EDT [facility] BUN, Plasma 14 8 - 23 mg/dL 07/15/2024 5:58 PM EDT [facility] Creatinine, Plasma 1.03 0.70 - 1.20 mg/dL 07/15/2024 5:58 PM EDT [facility] BUN/Creatinine Ratio 14 07/15/2024 5:58 PM EDT [facility] Sodium, Plasma 139 136 - 145 mmol/L 07/15/2024 5:58 PM EDT [facility] Potassium, Plasma 4.0 3.6 - 4.9 mmol/L 07/15/2024 5:58 PM EDT [facility] Chloride, Plasma 103 97 - 107 mmol/L 07/15/2024 5:58 PM EDT [facility] CO2, Plasma 29 22 - 29 mmol/L 07/15/2024 5:58 PM EDT [facility] Anion Gap 7 6 - 16 mmol/L 07/15/2024 5:58 PM EDT [facility] Total Calcium, Plasma 8.4(L) 8.9 - 10.2 mg/dL 07/15/2024 5:58 PM EDT [facility] Total Protein 5.6(L) 6.3 - 7.9 g/dL 07/15/2024 5:58 PM EDT [facility] Albumin, Plasma 3.0(L) 3.5 - 5.2 g/dL 07/15/2024 5:58 PM EDT [facility] AST, Plasma 32 10 - 50 U/L 07/15/2024 5:58 PM EDT [facility] ALT, Plasma 36 10 - 50 U/L 07/15/2024 5:58 PM EDT [facility] Alkaline Phosphatase, Plasma 97 40 - 115 U/L 07/15/2024 5:58 PM EDT [facility] Total Bilirubin, Plasma 0.6 0.2 - 1.1 mg/dL 07/15/2024 5:58 PM EDT [facility] eGFRcr 78.1 mL/min/1.7 3m*2 07/15/2024 5:58 PM EDT [facility] Comment:Reported eGFRcr in m L/min/1.73m2 is based the CKD-EPI 2020 equation that does not use a race coefficient. Blood Venous blood specimen / Unknown Venipuncture / Unknown 07/15/2024 5:03 PM EDT 07/15/2024 5:20 PM EDT Chava Stephenson MD LAB BLOOD ORDERABLES Final Result [facility] [address] [place] [address] * (ABNORMAL) POCT glucose meter (07/15/2024 4:40 PM EDT) POCT Glucose 243(H) 74 - 99 mg/dL 07/15/2024 4:42 PM EDT [facility] Comment:Accuracy of [...] Comment 07/15/2024 4:42 PM [facility] Venue Attendant ID Germania Taveras 07/15/2024 4:42 PM [facility] Device ID [id number] 07/15/2024 4:42 PM [facility] Specimen Type POC Capillary 07/15/2024 4:42 PM [facility] Blood Capillary blood specimen / Unknown 07/15/2024 4:40 PM EDT 07/15/2024 4:42 PM EDT Result [facility] Chava Stephenson MD LAB POINT OF CARE T EST DOCKED DEVICE UNSOLICITED RESULTS Final Result Performing Organization Address City/[facility] Co de Phone Number [facility] [address] [place] [address] documented in this encounter Visit Diagnoses Diagnosis [...] Coronary atherosclerosis of unspecified type of vessel, [place] or graft documented in this encounter Admitting [...] AM EDT 81 mg barium sulfate (Varibar [place]) 40 % suspension 120 mL 120 mL, [...] on Tue07/19/24 at 0900, Until Discontinued, Routine Given 07/20/2024 [...] on Tue07/15/24 at 2043, Until Tue07/20/24 at 165, Routine, low blood sugar per Hypoglycemia Prevention and Treatment protocol glucose (Glutose) 40 % oral gel 15-30 grams of glucose 15-30 grams of glucose, Sublingual, Every 15 min PRN, Starting on Tue07/15/24 at 2043, Until Tue07/20/24 at 1659, Routine, low blood sugar, per Hypoglycemia Prevention and Treatment protocol guaiFENesin (Mucinex) 12 hr tablet 600 mg 600 mg, Oral, 2 times daily PRN, Starting on Tue07/15/24 at 2055, Until Tue07/20/24 at 1659, Routine, cough Given 07/16/2024 8:21 PM EDT 600 mg HYDROcodone-acetaminophen ([place]) 5-325 MG per tablet 10 mg of [...] 12 hours, First dose on Tue07/15/24 at 2050, Until Discontinued, Routine Given 07/20/2024 10:02 AM EDT 10 mL Given 07/19/2024 8:57 PM EDT 10 mL Given 07/19/2024 8:30 AM EDT 10 mL sodium chloride 0.9 % flush 10 mL 10 mL, Intravenous, As needed, Starting on Tue07/15/24 at 2040, Until Tue07/20/24 at 1659, Routine, line care [...] on Tue07/15/24 at 2200, Until Discontinued, Routine 0539 (Given - Provider: Juana Bettencourt RN)1412 (Given - Provider: Renate Mathew, ARTHUR)2100 (Given - Provider: Juana Bettencourt RN) 0631 (Given - Provider: Juana Bettencourt RN)1449 (Given - Provider: Renate Mathew RN)2118 (Given - Provider: Mohamud Garrison, ARTHUR) 0525 (Given - Provider: Mohamud Garrison RN)1331 (Given - Provider: Todd Ayala RN) allopurinol (Zyloprim) tablet 300 mg 300 mg, Oral, Daily, First dose on Tue07/16/24 at 0900, Until Discontinued, Routine 0847 (Given - Provider: Renate Mathew RN) 0831 (Given - Provider: Renate Mathew RN) 1000 (Given - Provider: Todd Ayala RN) amoxicillin-clavulanat e (Augmentin) 600-42.9 MG/5ML suspension 1,000 mg (CANCELED) 1,000 mg, Oral, Every 8 hours, 11 doses, First dose on Tue07/19/24 at 1300, Last dose on Tue07/22/24 at 2100, Routine 1449 (Given - Provider: Renate Mathew RN - Comment: Med did not arrive in time from pharmacy.)2048 (Given - Provider: Mohamud Garrison RN) 05 (Given - Provider: Mohamud Garrison RN) amoxicillin-clavulanat [...] Provider: Todd Ayala RN) barium sulfate (Varibar [place]) 40 % suspension 120 mL (COMPLETED) 120 [...] Protocol Orders 0844 (Given - Provider: Yuliet aBiley) barium sulfate (Varibar Thin [place]) 40 % [...] 2047 (Given - Provider: Mohamud Garrison RN) DULoxetine (Cymbalta) DR capsule 120 mg (CANCELED) [...] Mathew RN)163 (Given - Provider: Renate Mathew RN)204 (Given - Provider: Mohamud Garrison RN) 1000 [...] 0847 (Given - Provider: Renate Mathew RN) 08 (Given - Provider: Renate Matehw RN) insulin glargine-yfgn 100 UNIT/ML injection 10 [...] parameters not met)1712 (Not Given - Provider: Renate Mathew RN - Reason: Patient/family refused) 0830 (Given - Provider: Renate Mathew RN)1245 (Given - Provider: Renate Mathew RN)1727 (Given - Provider: Renate Mathew RN) 0930 (Given - Provider: Todd Ayala, ARTHUR)1215 (Given - Provider: Todd Ayala, ARTHUR) insulin lispro (Admelog) injection - Correction - Nighttime Dose 0-3 Units, Subcutaneous, 2 times nightly (2099 & 299), First dose on Tue07/15/24 at 2100, Until Discontinued, Routine 0300 (Canceled Entry - Provider: Juana Bettencourt RN)1999 (Not Given - Provider: Juana Bettencourt RN - Reason: Order parameters not met) 030 (Canceled Entry - Provider: Juana Bettencourt RN)211 (Not Given - Provider: Mohmaud Garrison RN - Reason: Order parameters not met) 031 (Not Given - Provider: Mohamud Garrison RN [...] Bettencourt RN) 0525 (Given - Provider: Mohamud Garrison, ARTHUR) metoprolol succinate XL (Toprol-XL) 24 hr tablet 25 mg 25 mg, Oral, Daily, First dose on Milady 07/19/24 at 1445, Until Discontinued, Routine 1451 (Given [...] erior, Routine 0852 (Given - Provider: Renate Mathew RN)2013 (Given [...] 1000 (Given - Provider: Todd Ayala, ARTHUR) piperacillin-tazobacta m (Zosyn) 4.5 g in sodium chloride 0.9% 100 mL IVPB (vial adapter required) (CANCELED) 4.5 g, Intravenous, Every 6 hours, 28 doses, First dose on Tue07/15/24 at 2310, Last dose on Tue07/22/24 at 1830, Routine 0539 (New Bag - Provider: Juana Bettencourt RN)1238 (New Bag - Provider: Renate Mathew RN)1823 (New Bag - Provider: Renate Mathew RN)2349 (New Bag - Provider: Juana Bettencourt [...] on Tue07/15/24 at 2100, Until Discontinued, Routine 1999 (Not Given - Provider: Juana Bettencourt RN - Reason: Patient/family refused) 2047 (Given - Provider: Mohamud Garrison, RN) sodium chloride 0.9 % flush 10 mL(Linked Group 1) 10 mL, Intravenous, Every 12 hours, First dose on 07/15/24 at 2050, Until Discontinued, Routine 0849 (Given - Provider: Renate Mathew, ARTHUR)2000 (Not Given - Provider: Juana Bettencourt RN - Reason: Hold for condition: must add comment - Comment: IV currently infusing) 08 (Given - Provider: Renate Mathew RN)2056 (Given - Provider: Mohamud Garrison, ARTHUR) 1002 (Given - Provider: Todd Ayala, ARTHUR) tamsulosin (Flomax) 24 hr capsule 0.8 mg 0.8 mg, Oral, Daily with dinner, First dose on Tue07/16/24 at 1800, Until Discontinued, Routine 1834 (Given - Provider: Renate Mathew RN) 1728 (Given - Provider: Renate Mathew, ARTHUR) valACYclovir (Valtrex) tablet 500 mg 500 mg, Oral, Daily, First dose on Tue07/16/24 at 0900, Until Discontinued, Routine 0847 (Given - Provider: Renate Mathew, ARTHUR) 0831 (Given - Provider: Renate Mathew RN) 1000 (Given - Provider: Todd Ayala, ARTHUR) PRN Medication Order 07/18/2024 07/19/2024 07/20/2024 dextrose 50 % solution 12.5-25 g(Linked Group 2) 12.5-25 g, Intravenous, Every 15 min PRN, Starting on Tue07/15/24 at 2044, Until Tue07/20/24 at 1659, Routine, low blood sugar 1207 (Given - Provider: Renate Mathew, ARTHUR) glucagon (human recombinant) injection 1 mg(Linked Group 2) 1 mg, Intramuscular, Every 15 min PRN, Starting on 07/15/24 at 204, Until Tue07/20/24 at 1659, Routine, low blood sugar per Hypoglycemia Prevention and Treatment protocol 1207 (See Alternative - Provider: Renate Mathew RN) glucose (Glutose) 40 % oral gel 15-30 grams of glucose(Linked Group 2) 15-30 grams of glucose, Sublingual, Every 15 min PRN, Starting on 07/15/24 at 204, Until Tue07/20/24 at 1659, Routine, low blood sugar, per Hypoglycemia Prevention and Treatment protocol 1207 (See Alternative - Provider: Renate Mathew RN) guaiFENesin (Mucinex) 12 hr tablet 600 mg 600 mg, Oral, 2 times daily PRN, Starting on Tue07/15/24 at 2054, Until Tue07/20/24 at 1659, Routine, cough oxyCODONE (Roxicodone) immediate release tablet 10 mg 10 mg, Oral, Every 6 hours PRN, Starting on Tue07/17/24 at 1152, Until Tue07/20/24 at 1659, Routine, moderate pain 0928 (Given - Provider: Renate Mathew RN)2013 (Given - Provider: Juana Bettencourt RN) polyethylene glycol (Miralax) packet 17 g 17 g, Oral, Daily PRN, Starting on 07/16/24 at 0000, Until Tue07/20/24 at 1659, Routine, constipation sodium chloride 0.9 % flush 10 mL(Linked Group 1) 10 mL, Intravenous, As needed, Starting on Tue07/15/24 at 2040, Until Tue07/20/24 at 1659, Routine, line care sodium chloride 3 % nebulizer solution 3 mL 3 mL, Nebulization, 2 times daily PRN, Starting on Tue07/15/24 at 205, Until Tue07/20/24 at 1659, Routine, mucolysis traZODone (Desyrel) tablet 150 mg 150 mg, Oral, Nightly PRN, Starting on Tue07/15/24 at 2058, Until Tue07/20/24 at 1659, Routine, sleep 2014 (Given - Provider: Juana Bettencourt, RN) 2047 (Given - Provider: Mohamud Garrison RN) Linked Groups Order Group 1: Insert peripheral IV (CANCELED) Once, On Tue07/15/24 at 2040, For 1 occurrence And Saline lock IV (CANCELED) Once, On Tue07/15/24 at 2040, For 1 occurrence And sodium chloride 0.9 % flush 10 mLJump to med 10 mL, Intravenous, Every 12 hours, First dose on Tue07/15/24 at 205, Until Discontinued, Routine And sodium chloride 0.9 % flush 10 mLJump to med 10 mL, Intravenous, As needed, Starting on Tue07/15/24 at 2039, Until Tue07/20/24 at 165, Routine, line care Group 2: glucose (Glutose) 40 % oral gel 15-30 grams of glucoseJump to med 15-30 grams of glucose, Sublingual, Every 15 min PRN, Starting on Tue07/15/24 at 2043, Until Tue07/20/24 at 165, Routine, low blood sugar, per Hypoglycemia Prevention and Treatment protocol Or dextrose 50 % solution 12.5-25 gJump to med 12.5-25 g, Intravenous, Every 15 min PRN, Starting on Tue07/15/24 at 2043, Until Tue07/20/24 at 165, Routine, low blood sugar Or glucagon (human recombinant) injection 1 mgJump to med 1 mg, Intramuscular, Every 15 min PRN, Starting on Tue07/15/24 at 2043, Until Tue07/20/24 at 165, Routine, low blood sugar per Hypoglycemia Prevention and Treatment protocol documented in this encounter Additional Health Concerns Infection Onset Date Last Indicated Resolved Time MRSA Comment:Added from external infection. Source: [facility]. 02/22/2017 07/15/2024 Respiratory Rule-Out 07/15/2024 07/15/2024 025 10:50 PM EDT Assessment Noted Time A Body Mass Index follow-up plan has been documented for the patient 07/20/2024 1:44 PM EDT documented as of this encounter Care Teams Lead Mobile Developer Relationship Specialty Start Date End Date Elijah Serra DO [address] [place] [address] PCP - General Debeaker 12/01/22 documented as of this encounter
--- OUTSIDE RECORDS SUMMARY | 2024-08-06 10:45 | XMS_ITS | Encounter Summary ---
Author Organization [facility] Address [address] [place] [address] Support Name Relationship Address Phone Stepan Gold Personal Relationship [address] [place] [address] Mi Asif Personal Relationship Unknown Rosalind Andersonill Personal Relationship Unknown [phone] Vivi Ward Personal Relationship Unknown Care Team Providers Care Veneer Stapler Name Role Phone Willi Templeton MD Unavailable María Andre MD Unavailable Selene Rodriguez PHYSICIAN ASSISTANT CERTIFIED Unavailable Mariah Flowers PHYSICIAN ASSISTANT CERTIFIED Unavailable Neyda Beltran MD Unavailable Ryanne Roblero MD Unavailable Unavailable Mi Martin PHYSICIAN ASSISTANT CERTIFIED Unavailable [phone] Elijah Serra DO Primary Care Provider Micha Washington MD Unavailable Encounter Details Date Type Department Care Team (Latest Contact Info) Description 08/06/2024 10:45 AM EDT Office Visit [facility] [address], [address] [place] [address] Micha Washington MD [address] [place] [id number] Type 1 diabetes mellitus with diabetic polyneuropathy (HCC) (Primary Dx); Hyperglycemia due to type 1 diabetes mellitus (HCC); Post-surgical hypothyroidism; Benign essential hypertension; Mixed hyperlipidemia; 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, unspecified proliferative retinopathy type (HCC); Encounter for long-term (current) use of insulin (HCC) Social History Tobacco Use Types Packs/Day Years Used Date Smoking Tobacco: Never Smokeless Tobacco: Never Tobacco Cessation:Counseling Given: Not Answered Alcohol Use Standard Drinks/Week Comments No 0 [...] materials from doctor or pharmacy Never 04/29/2023 [facility] Utilities Answer Date Recorded In the past 12 months has e [employer], gas, oil, or water [employer] threatened to shut off services in your [...] medical appointments or from getting medications? No 03/11 In the past 12 months, has l [...] any time in the past 12 m ont, were you homeless or living in a snf (including now)? No 04/02/2024 Sex and Gender Information Value Date Recorded Sex Assigned at Not on file Legal Sex Male 9:48 PM EST Gender Identity Not on file Sexual Orientation Not on file documented as of this encounter Last Filed Vital Signs Vital Sign Reading Time Taken Comments Blood Pressure 136/76 08/06/2024 10:59 AM EDT Pulse 75 08/06/2024 10:59 AM EDT Temperature - - Respiratory Rate - - Oxygen Saturation - - Inhaled Oxygen Concentration - - Weight 80.3 kg (177 lb) 08/06/2024 10:59 AM EDT Height 175.3 cm (5' 9 ) 08/06/2024 10:59 AM EDT Body Mass Index 26.14 08/06/2024 10:59 AM EDT documented in this encounter Progress Notes * Micha Washington MD - 08/06/2024 10:45 AM EDT Subjective Subjective: Patient ID: Obdulio Gold is an 68 y.o. male Chief Complaint: Patient here for follow up for diabetes and thyroid. The patient presented today for a follow-up on DM1 with neuropathy, retinopathy on insulin, postsurgical hypothyroidism, HLP, HTN, risk factor of coronary artery disease, status post stent, status post CABG x 4 which are chronic and generalized with possible fluctuation over the years. CG of Dexcom information was downloaded, reviewed and interpreted by Dr. Washington. Average of glucose 216 mg/dL with standard deviation 82 mg/dL Glucose was in normal range 37%, above normal range 62%, in hypoglycemia range <2% Hypoglycemia risk was minimal Patient has a pattern of nighttime highs, daytime highs Mean average blood glucose 232 mg/dL before breakfast 216 mg/dL before lunch 211 mg/dL before supper 211 mg/dL before bedtime The patient is not required to do FSBG for calibrations. The patient gets 288 blood glucose readings daily from the Dexcom G7. The patient is on 3-5 INSULIN injections daily and adjusts insulin dosesbased on blood glucose readings for the past several years. The patient claims to be using medications as prescribed all the time and is following a diabetic, low fat, low cholesterol, low salt, high fiber diet most of the time and exercising sometimes. FOR DETAILED INFORMATION OF CGM PLEASE SEE REPORT SCANNED INTO MEDIA. LABS: Latest Ref Rng 05/07/2024 TSH 0.30 - 5.60 u[iU]/mL 0.84 Past Medical History: Diagnosis Date ??? Anemia ??? Blood transfusion without reported diagnosis ??? CAD (coronary artery disease) ??? Chest pain ??? CHF (congestive heart failure) (HCC) ??? Chronic kidney disease ??? Community acquired pneumonia ??? Diabetes type 1 ??? Fall ??? Gallstone ??? Hyperlipidemia ??? Hypertension ??? MRSA infection 02/24/2017 respiratory culture ??? MRSA nasal colonization 02/21/2017 ??? Obesity (BMI 30.0-34.9) ??? Osteoarthritis ??? S/P CABG (coronary artery bypass graft) ??? S/P coronary artery stent placement 2009 ??? Sleep apnea ??? Staph infection ??? Thyroid disease Past Surgical History: Procedure Laterality Date ??? ACT N/A 08/04/2016 ACT performed by Jose Ramon Rivera MD at [facility] [employer] ??? CORONARY ATHERECTOMY 08/04/2016 Coronary Atherectomy performed by Jose Raomn Rivera MD at [facility] [employer] ??? CORONARY INTERVENTION N/A 08/04/2016 Coronary intervention performed by Jose Ramon Rivera MD at [facility] [employer] ??? DRUG-ELUTING STENT PLACEMENT N/A 08/04/2016 Drug-eluting stent placement performed by Jose Ramon Rivera MD at [facility] [employer]GAL [employer] ??? DRUG-ELUTING STENT PLACEMENT N/A 06/02/2009 CORONARY SANDY PLACEMENT performed by Horacio Sherman MD at [facility] [employer]GAL [employer] ??? HX BROKEN/FX BONES L HIP ??? HX CAPSULE ENDOSCOPY N/A 08/12/2016 CAPSULE ENDOSCOPY (PILL CAM) performed by Willi Templeton MD at [facility] ??? HX CARDIAC CATHETERIZATION ??? HX CARDIAC SURGERY ??? HX CHOLECYSTECTOMY ??? HX COLONOSCOPY N/A 08/12/2016 COLONOSCOPY performed by Willi Templeton MD at [facility] ??? HX COLONOSCOPY 08/11/2016 COLONOSCOPY, INCOMPLETE DUE TO POOR PREP performed by Willi Templeton MD at [facility] ??? HX CORONARY ARTERY BYPASS GRAFT ??? HX EGJ N/A 08/11/2016 EGD /C CYTOLOGY performed by Willi Templeton MD at [facility] ??? HX EGJ N/A 08/11/2016 EGD /C BIOPSY performed by Willi Templeton MD at [facility] ??? HX EGJ N/A 03/11/2016 EGD /C HP ONE BIOPSY performed by Willi Templeton MD at [facility] ??? HX JOINT REPLACEMENT bilateral hip and right knee ??? HX KNEE REPLACEMENT RIGHT ??? HX STERNOTOMY partial ??? HX THYROID SURGERY 1954 ??? HX TONSILLECTOMY ??? LEFT HEART CATH N/A 08/03/2016 Left heart cath performed by Jose Ramon Rivera MD at [facility] [employer] ??? LEFT HEART CATH N/A 06/02/2009 LEFT HEART CATH performed by Horacio Sherman MD at [facility] [employer] Family History Problem Relation Name Age of Onset ??? Heart Disease Mother ??? Stroke Mother ??? Elevated Lipids Mother ??? Diabetes Mother ??? Cancer Brother ??? Elevated Lipids Brother ??? Diabetes Brother ??? Heart Disease Brother ??? Renal Disease Brother Social History Socioeconomic History ??? Marital status: Tobacco Use ??? Smoking status: Never ??? Smokeless tobacco: Never Vaping Use ??? Vaping status: Never Used Substance and Sexual Activity ??? Alcohol use: No ??? Drug use: No ??? Sexual activity: Not Currently Social Drivers of Health Financial Resource Strain: Low Risk (07/16/2024) Received from [facility] Overall Financial Resource Strain (CARDIA) ??? How hard is it for you to pay for the very basics like food, housing, medical care, and heating?: Not hard at all Food Insecurity: No Food Insecurity (07/16/2024) Received from [facility] Hunger Vital Sign ??? Within the past 12 months, you worried that your food would run out before you got the money tobuy more.: Never true ??? Within the past 12 months, the food you bought just didn't last and you didn't have money to get more.: Never true Transportation Needs: No Transportation Needs (07/16/2024) Received from [facility] PRAPARE - Transportation ??? In the past 12 months, has lack of transportation kept you from medical appointments or from getting medications?: No ??? In the past 12 months, has lack of transportation kept you from meetings, work, or from gettingthings needed for daily living?: No Physical Activity: Inactive (09/05/2023) Received from [facility] [place], [place], [place], [place]) Physical Activity ??? Number of minutes of exercise per week : 0 Stress: No Stress Concern Present (09/05/2023) Received from [facility] [place] [employer] Stress ??? Stress means a situation in which a person feels tense, restless, nervous, or anxious, or is unable to sleep at night because his or her mind is troubled all the time. Do you feel this kind of str...: Not at all Social Connections: Unknown (07/16/2024) Received from [facility] Social Connection and Isolation Panel ??? Are you , , , , never , or living with a partner?: Intimate Partner Violence: Not At Risk (07/16/2024) Received from [facility] Humiliation, Afraid, Rape, and Kick questionnaire ??? Within the last year, have you been afraid of your partner or ex-partner?: No ??? Within the last year, have you been humiliated or emotionally abused in other ways by your partner or ex-partner?: No ??? Within the last year, have you been kicked, hit, slapped, or otherwise physically hurt by your partner or ex-partner?: No ??? Within the last year, have you been raped or forced to have any kind of sexual activity by yourpartner or ex-partner?: No Housing Stability: Low Risk (07/16/2024) Received from [facility] Housing Stability Vital Sign ??? In the last 12 months, was there a time when you were not able to pay the mortgage or rent on time?: No ??? In the past 12 months, how many times have you moved where you were living?: 0 ??? At any time in the past 12 months, were you homeless or living in a snf (including now)?: No Current Outpatient Medications Medication Sig Dispense Refill ??? levothyroxine (SYNTHROID) 150 mcg tablet Take 1 Tablet by mouth Once Daily. 90 Tablet 3 ??? TOUJEO SOLOSTAR U-300 INSULIN 300 unit/mL (1.5 mL) injection Administer 14 Units subcutaneouslyAt bedtime. Please dispense 4.5 mL/3 pens per 3 mo supply - THIS IS A DOSE ADJUSTMENT - PLEASE REMOVE PREVIOUS DOSE FROM PROFILE ??? NOVOLOG FLEXPEN U-100 INSULIN 100 unit/mL (3 [...] PREVIOUS DOSE FROM PROFILE 45 mL 3 ??? furosemide (LASIX) 40 mg tablet Take 1 Tablet by mouth Once daily as needed (weight gain of 2 pounds daily). Indications: visible water retention 90 Tablet 3 ??? potassium chloride (KLOR-CON M10) 10 mEq tablet Take 1 Tablet by mouth Once daily as needed (take daily when lasix needed). Indications: prevention of low potassium in the blood 90 Tablet 3 ??? traZODone (DESYREL) 150 mg tablet Take 1 Tablet by mouth At bedtime. Indications: difficulty sleeping 90 Tablet 3 ??? tiZANidine (ZANAFLEX) 4 mg tablet Take 1 Tablet by mouth Every 8 hours as needed for Muscle spasms. 180 Tablet 2 ??? tamsulosin (FLOMAX) 0.4 mg capsule Take 2 Caps by mouth Once Daily. Indications: enlarged prostate 60 Capsule 1 ??? sucralfate (CARAFATE) 1 gram tablet Take 1 Tablet by mouth Before meals and at bedtime. Indications: gastroesophageal reflux disease 360 Tablet 3 ??? rosuvastatin (CRESTOR) 20 mg tablet Take 1 Tablet by mouth At bedtime. Indications: high cholesterol 90 Tablet 3 ??? diclofenac sodium (VOLTAREN) 1 % topical gel 2 g by Topical route Four times a day. 100 g 1 ??? ipratropium-albuteroL (DUO-NEB) 0.5 mg-3 mg(2.5 mg base)/3 mL nebulizer solution Take 3 mL by nebulization Every 6 hours as needed for Wheezing. 120 Each 1 ??? Budesonide-Formoterol (SYMBICORT 160-4.5 MCG) 160-4.5 mcg/Actuation inhaler Take 2 Puffs by inhalation Twice a day. 1 Each 0 ??? allopurinoL (ZYLOPRIM) 300 mg tablet Take 300 mg by mouth Once Daily. ??? Gabapentin (NEURONTIN) 800 mg tablet Take 800 mg by mouth Once Daily. ??? Gabapentin (NEURONTIN) 800 mg tablet Take 1,600 mg by mouth At bedtime. ??? metoprolol succinate ER (TOPROL XL) 25 mg 24 hr tablet Take 12.5 mg by mouth Once Daily. ??? colchicine (COLCRYS) 0.6 mg tablet Take 0.6 mg by mouth Once Daily. Indications: treatment to prevent acute gout attack ??? colestipoL (COLESTID) 1 gram tablet Take 1 g by mouth Twice a day. ??? Donepezil (ARICEPT) 10 mg Tab Take 10 mg by mouth Once Daily. ??? finasteride (PROSCAR) 5 mg tablet Take 5 mg by mouth Once Daily. ??? valACYclovir (VALTREX) 500 mg tablet Take 500 mg by mouth Once Daily. ??? Insulin [place], Disposable, (PEN NEEDLE) 32 gauge x 5/32 Ndle 1 Each With meals and at bedtime. 400 Each 3 ??? aspirin (ASPIRIN) [address] tablet Take 81 mg by mouth Once Daily. Indications: prevention for ablood clot going to the brain ??? DULoxetine (CYMBALTA) [address] capsule Take 60 mg by mouth Once Daily. Indications: diabetic complication causing injury to some body nerves (Patient taking differently: Take 60 mg by mouth Twicea day. Indications: major depressive disorder) ??? hydrOXYchloroQUINE (PLAQUENIL) 200 mg tablet Take 400 mg by mouth At bedtime. Indications: rheumatoid arthritis ??? famotidine (PEPCID) 20 mg tablet Take 40 mg by mouth Once Daily. Indications: prevent indigestion (Patient taking differently: Take 40 mg by mouth As needed. Indications: prevent indigestion) ??? magnesium oxide (MAG-OX) 400 mg tablet Take 400 mg by mouth Twice a day. Indications: low amount of magnesium in the blood ??? HYDROcodone-acetaminophen (NORCO) 5-325 mg per tablet Take 1 Tablet by mouth Every 4 to 6 Hoursas needed for Pain. Indications: pain ??? diphenoxylate-atropine (LOMOTIL) 2.5-0.025 mg per tablet Take 1 Tablet by mouth Every 6 hours as needed for Diarrhea. Indications: diarrhea ??? fluticasone propionate (FLONASE) 50 mcg/Actuation nasal spray [place] 2 Sprays in nose Once Daily. (in each nostril) 3 Each 3 ??? clopidogreL (PLAVIX) 75 mg tablet Take 1 Tablet by mouth Daily. 90 Tablet 3 ??? fluocinonide (LIDEX) 0.05 % ointment Apply twice a day sparingly when necessary, lower legs 60 g 1 ??? blood sugar diagnostic (ACCU-CHEK NEVIN PLUS TEST STRP) 1 Each Before meals and at bedtime. ??? cetirizine (ZYRTEC) 10 mg tablet Take 1 Tab by mouth Daily. 30 Tab 3 ??? lancets (ONETOUCH DELICA LANCETS) 33 gauge Misc 1 Each As directed. Patient to check blood sugar as directed 3-4 times/day 360 Each 3 ??? sodium chloride (SALINE NASAL MIST) 0.65 % [place] 2 Sprays in nose Every 4 hours as needed. 1 Package QS 0 Allergies Allergen Reactions ??? Iodinated Contrast Media Anaphylaxis Pt required premedication prior to receiving IV dye. ??? Other Rash Tape Review of Systems Constitutional: Negative for fatigue. HENT: Negative for congestion and sore throat. Eyes: Negative for discharge. Respiratory: Negative for shortness of breath. Cardiovascular: Negative for chest pain. Gastrointestinal: Negative for constipation and nausea. Endocrine: Negative for cold intolerance and heat intolerance. Genitourinary: Negative for difficulty urinating. Musculoskeletal: Negative for arthralgias. Skin: Negative for color change. Allergic/Immunologic: Negative for environmental allergies. Neurological: Negative for numbness. Psychiatric/Behavioral: The patient is not nervous/anxious. Objective Objective: BP 136/76 Pulse 75 Ht 5' 9 (175.3 cm) Wt 80.3 kg (177 lb) BMI 26.14 kg/m?? Physical Exam Vitals and nursing note reviewed. Constitutional: Appearance: Normal appearance. HENT: Head: Normocephalic and atraumatic. Nose: Nose normal. Mouth/Throat: Mouth: Mucous membranes are moist. Eyes: General: Right eye: No discharge. Left eye: No discharge. Cardiovascular: Rate and Rhythm: Normal rate and regular rhythm. Pulmonary: Effort: Pulmonary effort is normal. Breath sounds: Normal breath sounds. Abdominal: General: Bowel sounds are normal. Palpations: Abdomen is soft. Musculoskeletal: General: Normal range of motion. Cervical back: Normal range of motion and neck supple. Skin: Coloration: Skin is not pale. Neurological: General: No focal deficit present. Mental Status: He is alert. Psychiatric: Mood and Affect: Mood normal. Behavior: Behavior normal. Assessment/Plan: 1. Type 1 diabetes mellitus with diabetic polyneuropathy (HCC) - Hemoglobin A1C - Microalbumin, Random Urine (Includes creatinine w/ratio) 2. Hyperglycemia due to type 1 diabetes mellitus (HCC) 3. Post-surgical hypothyroidism - TSH, High Sensitivity 4. Benign essential hypertension 5. Mixed hyperlipidemia - Lipid Panel 6. 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, unspecified proliferative retinopathy type (HCC) 7. Encounter for long-term (current) use of insulin (HCC) Last thyroid USG 07/22/23 small thyroid Discontinue vit D and B12 on 08/19/23, pt is not using 08/06/2024 patient is not a candidate for insulin pump secondary to memory problem and the is not having enough help that she needed to manage his diabetes at home Discussed for few minutes the downloading information from [facility]MS in details, patient questions and concerns were answered to patient satisfactory and patient verbalized understanding Discussed diet Discussed medications Advised strongly to use thyroid pill daily on an empty stomach for at least 45- 60 minutes and to swallow with at least 6-8 oz of only plain water to maximize absorption. Discussed effects of other medications and food (such as but not limited to calcium, iron ..) on the sensitive absorption of thyroid pill. Patient is not doing so, his family provider was telling him he was concerned about his level, patient is promising to take the pill correctly Discussed the use of insulin at home, doses and timing Discontinue tandem T-Slim insulin pump, patient is not using, according to him his does not want him to use it and she think it is dangerous for him, patient is back to use subcu insulin Patient has seen the dietitian for carb counting, he believes he is comfortable to do so Adjust insulin Lantus to 20 units nightly Adjust NovoLog carb ratio to be 10-12 unit for the meals and 2-3 unit for the snacks instead of 1 unit/4 gm for breakfast 1 unit/5 gm for lunch 1 unit/4 gm for supper Patient is doing carb counting less than 50% of the time, sometimes forgetting to use the insulin dosage, discussed the condition with his Stepan who said patient have issues with memory and remembering taking his insulin doses where she has to remind him , not interested in insulin pump at this point because of the burden of using it and no help for her at home Labs today, will call patient to adjust levothyroxine as needed Return in about 3 months (around 11/06/2024) for Anabell STEVENSON. * Desiree Ambriz MA - 08/06/2024 10:45 AM EDT VENIPUNCTURE PROGRESS NOTE: Venipuncture performed right ac Site checked: Yes Patient on anticoagulation therapy: Yes Tubes drawn: 2 1 LAV 1 GREEN documented in this encounter Plan of Treatment Upcoming Encounters Date Type Department Care Team (Late st Contact Info) Description 11/06/2024 11:00 AM EDT Office Visit [facility] [place] [address], [facility] [address] [place] [id number] Micha Washington MD [address] [place] [address] Molly Figueroa PA-C [address] [place] [address] documented as of this encounter Procedures Procedure Name Priority Date/Time Associated Diagnosis Comments TSH, HIGH SENSITIVITY Routine 08/06/2024 4:31 PM EDT Post-surgical hypothyroidism HEMOGLOBIN A1C Routine 08/06/2024 4:31 PM EDT Type 1 diabetes mellitus with diabetic polyneuropathy (HCC) LIPID PANEL Routine 08/06/2024 4:31 PM EDT Mixed hyperlipidemia MICROALBUMIN,RANDOM URINE (INCLUDES CREATININE W/RATIO) Routine 08/06/2024 4:17 PM EDT Type 1 diabetes mellitus with diabetic polyneuropathy (HCC) documented in this encounter Results * TSH, High Sensitivity (08/06/2024 4:31 PM EDT) TSH 3.44 0.30 - 5.60 u[iU]/mL 08/06/2024 5:08 PM EDT [facility] 08/06/2024 4:31 PM EDT 08/06/2024 4:31 PM EDT us Micha Washington MD CHEMISTRY ORDERABLES Final Resul t [facility] [address] [place], [place] [id number] [place] [address] LAB [address] [place] [address] * Lipid Panel (08/06/2024 4:31 PM EDT) CHOLESTEROL 124 10 - 200 mg/dL 08/06/2024 5:00 PM EDT [facility] TRIGLYCERIDE 112 46 - 236 mg/dL 08/06/2024 5:00 PM EDT [facility] HDL 51.0 27.0 - 67.0 mg/dL 08/06/2024 5:00 PM EDT [facility] VLDL 22.4 mg/dL 08/06/2024 5:00 PM EDT [facility] LDL 50.6 mg/dL 08/06/2024 5:00 PM EDT [facility] Comment: CAP STANDARDIZED LDL-CHOLESTEROL VALUES <130-DESIRABLE 130-159 BORDERLINE/HIGH RISK >160-HIGH RISK Friedewald equation was used for calculating LDL = Tot. Cholesterol - HDL - (TG/5). RISK 1, MALE 2.43 08/06/2024 5:00 PM EDT [facility] Comment: TOTAL CHOL/HDL 1/2 AVERAGE 3.43 AVERAGE 4.97 2 X AVERAGE 9.55 3 X AVERAGE 23.39 RISK 2, MALE 0.99 08/06/2024 5:00 PM EDT [facility] Comment: LDL/HDL 1/2 AVERAGE 1.00 AVERAGE 3.55 2 X AVERAGE 6.25 3 X AVERAGE 7.99 RISK 1, FEMALE 2.43 08/06/2024 5:00 PM EDT [facility] Comment: TOTAL CHOL/HDL 1/2 AVERAGE 3.27 AVERAGE 4.44 2 X AVERAGE 7.05 3 X AVERAGE 11.04 RISK 2, FEMALE 0.99 08/06/2024 5:00 PM EDT [facility] Comment: LDL/HDL 1/2 AVERAGE 1.47 AVERAGE 3.22 2 X AVERAGE 5.03 3 X AVERAGE 6.14 08/06/2024 4:31 PM EDT 08/06/2024 4:31 PM EDT us Micha Washington MD CHEMISTRY ORDERABLES Final Resul t [facility] [address] [place], [place] [id number] [place] [address] LAB [address] [place] [address] * (ABNORMAL) Hemoglobin A1C (08/06/2024 4:31 PM EDT) HEMOGLOBIN A1C 7.6(H) 3.0 - 6.0 % 08/06/2024 4:43 PM EDT [facility] 08/06/2024 4:31 PM EDT 08/06/2024 4:31 PM EDT Micha Washington MD CHEMISTRY ORDERABLES Final Resul t Performing Organization Address [facility] Co de Phone Number [facility] [address] [place] [address] [facility] [address] [place] [address] * Microalbumin, Random Urine (Includes creatinine w/ratio) (08/06/2024 4:17 PM EDT) CREATININE URINE 51.6 mg/dL 08/07/19 4:46 PM EDT [facility] MICROALBUMIN,U,RANDO M 0.90 0.00 - 1.80 mg/dL 08/06/2024 4:46 PM EDT [facility] MICROALB CREAT RATIO 17.4 ug/mg 07/10 4:46 PM EDT [facility] Comment: CATEGORY SPOT COLLECTION Normal <30 ug/mg creatinine Microalbuminuria 30-300 ug/mg creatinine Clinical albuminuria >300 ug/mg creatinine 08/06/2024 4:17 PM EDT 08/06/2024 4:17 PM EDT Micha Washington MD CHEMISTRY ORDERABLES Final Resul t Performing Organization Address [facility] Co de Phone Number [facility] [address] [place] [address] [facility] [address] [place] [address] documented in this encounter Visit Diagnoses Diagnosis Type 1 diabetes mellitus with diabetic polyneuropathy (HCC)- Primary Hyperglycemia due to type 1 diabetes mellitus (HCC) Post-surgical hypothyroidism Postsurgical hypothyroidism Benign essential hypertension Essential hypertension, benign Mixed hyperlipidemia 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, unspecified proliferative retinopathy type (HCC) Encounter for long-term (current) use of insulin (HCC) Encounter for long-term (current) use of insulin documented in this encounter Care Teams Veneer Stapler Relationship Specialty Start Date End Date Elijah Serra DO [address] [place] [address] PCP - General Family Medicine 07/21/23 Willi Templeton MD [address] [place] [address] Gastroenterology 02/25/16 María Andre MD [address] [place] [address] Gastroenterology 03/08/16 Selene Rodriguez APRN [address] [place] [address] [address] [place] [address] Gastroenterology 08/23/16 Mariah Flowers APRN [address] [address] [place] [address] Nurse Practitioner 08/26/16 Neyda Beltran MD [address] [place] [address] Nephrology 03/17/17 Ryanne Roblero MD [address] [place] [address] Rheumatology 03/01/18 Mi Martin APRN [address] [place] [address] [address] [place] [address] Nurse Practitioner Nurse Practitioner 04/16/19 Micha Washington MD [address] [place] [address] Endocrinology 08/06/24 08/06/24 documented as of this encounter
[2024-08-13] VITALS (17 sets, daily range): BP systolic 85–134; BP diastolic 50–70; PULSE 63–77; RESP 15–24; TEMP 36.7–37.1; O2SAT 85–100; BMI 26.6
--- NOTE | 2024-08-13 12:05 | ED_ITS ---
<Statement entered by Hilaria Méndez DO - 08/14/24 20:07> I was consulted by the DENY, and we discussed the complexity of the problems being addressed. I approved the treatment and management plan for this patient's care in the emergency department, thus performing a substantive portion of the medical decision making. Hilaria Méndez DO Discharge Plan Disposition Patient Disposition: Admitted Condition: Serious Clinical Impressions Clinical Impression: Multifocal pneumonia, Acute hypoxemic respiratory failure, Sepsis without septic shock, Hyperglycemia due to type 1 diabetes mellitus Discharge ED Provider: Hilaria Méndez General Adult HPI General Chief complaint: Shortness of Breath/Dyspnea Stated complaint: SOA; Possible Pn[place] Time Seen by Provider: 08/13/24 12:04 History of Present Illness HPI narrative: Patient presents for evaluation of dyspnea. Patient has had a very complex last 6 months. Most recently approximately 2 weeks ago patient fell while he was in [facility]. He was seen at [facility] in [place] and ultimately transferred to [facility] where he was admitted. During that admission he was found to have pneumonia according to his . Patient was ultimately discharged with oral antibiotics which was Augmentin. He was not however requiring home oxygen. At baseline patient is a type I diabetic and has had a history of coronary artery bypass graft as well as cardiovascular stents hypertension hyperlipidemia GERD gout as well as COVID at the start of the pandemic prior to vaccines. Patient's also reports that patient has been falling a lot . Today he fell and he was so weak that she could not get him up and she brought him to the ER for evaluation. Patient currently denies any pain or injury denies chest pain fever chills hemoptysis hematochezia melena hematemesis hematuria. Related Data Home Medications ?Medication ?Instructions ?Recorded ?Confirmed pen needle, diabetic 32 gauge x 11/09/23 03/19/24 (BD Ultra-Fine Martine Pen Needle) clopidogrel 75 mg tablet 75 mg PO DAILY 11/29/2308/31 colchicine 0.6 mg tablet 0.6 mg PO BID 11/29/2308/13 colestipol 1 gram tablet 1 g PO DAILY 11/29/23 donepezil 10 mg tablet 10 mg PO DAILY 11/29/2308/31 duloxetine 60 mg capsule,delayed 60 mg PO DAILY 08/13/24 release hydrocodone 5 mg-acetaminophen 325 1 tab PO Q8H 08/13/24 mg tablet hydroxychloroquine 200 mg tablet 200 mg PO BID 4 08/13/24 insulin aspart U-100 100 unit/mL 8 - 12 unit SQ ACHS D iabetes 11/29/23 08/13/24 (3 mL) subcutaneous pen (Novolog FlexPen U-100 Insulin aspart) potassium chloride 10 mEq 10 meq PO DAILY 11/29/2308/31 tablet,extended release(part/cryst) rosuvastatin 20 mg tablet 20 mg PO DAILY 11/29/2308/31 sucralfate 1 gram tablet 1 g PO DAILY 11/29/23 trazodone 150 mg tablet 150 mg PO HS 11/29/23 valacyclovir 500 mg tablet 500 mg PO DAILY 11/29/23 allopurinol 300 mg tablet 300 mg PO DAILY 03/19/2408/31 furosemide 40 mg tablet 40 mg PO DAILY 03/19/2408/31 gabapentin 800 mg tablet 800 mg PO TID 03/19/2408/13 levothyroxine 112 mcg tablet 150 mcg PO DAILY 03/19/24 08/13/24 metoprolol succinate 25 mg 25 mg PO DAILY 03/19/2408/31 tablet,extended release 24 hr tamsulosin 0.4 mg capsule 0.4 mg PO BID 03/19/2408/13 aspirin 81 mg tablet 81 mg PO DAILY 08/13/2408/31 cetirizine 10 mg tablet (Zyrtec) 10 mg PO DAILY 08/13/24 finasteride 5 mg tablet 5 mg PO DAILY 08/13/2408/13 insulin glargine U-300 conc 300 20 unit SQ DAILY 08/1308/13/24 unit/mL (1.5 mL) subcutaneous pen (Toujeo SoloStar U-300 Insulin) tizanidine 4 mg tablet 4 mg PO DAILY 08/13/2408/13 Allergies Allergy/AdvReac Type Severity Reaction Status Date / Time iodine (IODINE) Allergy Mild Verified 01/04/24 09:33 adhesive tape Allergy Verified 01/04/24 09:33 [facility] Disclaimer: The information contained in this section may have been updated after the patient was seen, as this information can be updated by other users. Medical History Bronchiectasis type 1 Recurrent bacterial pneumonia Staphylococcal pneumonia Recurrent pneumonia Diastolic CHF, acute Bilateral lower extremity edema Pneumonia COVID-19 CAD (coronary artery disease) GERD (gastroesophageal reflux disease) Hypothyroidism Hyperlipidemia Hypertension Insulin pump fitting or adjustment Fall Side effects of vaccination Type 1 diabetes mellitus with diabetic polyneuropathy Traumatic ecchymosis of ankle Cellulitis Laceration of lower leg Surgical History History of coronary artery bypass graft H/O thyroidectomy Total knee replacement status H/O bilateral hip replacements History of total right knee replacement (TKR) Family History Mother , at age 79 Coronary artery disease Father , at age 92 COVID-19 Social History (Updated 08/13/24 @ 17:03 by Mojgan Chappell RN) Smoking Status: Never smoker alcohol intake: never substance use type: denies use current occupational status: employed Travel in the last 8 weeks?: None household members: spouse housing: house lives independently: Yes marital status: number of children: 5 education level: high school service: No correction: No current occupation: [employer] diet: diabetic marianna/jainism: Islam Have you lived/traveled outside US in past 30 days?: No Contact w/someone who lives/traveled outside US past 30 days?: No Exposure to someone with infectious disease in past 14 days?: No Do you have a fever (greater than 100.4 F or 38 C)?: No Have you tested positive for COVID-19?: No Exposed to someone with COVID-19 in past 14 days?: No Do you have a sore throat?: No Do you have a cough?: No Do you have any weakness?: No Do you have any diarrhea?: No Are you experiencing any unusual bleeding?: No Do you have any muscle aches/pain?: No Do you have any abdominal pain?: No Are you experiencing loss of taste or smell?: No Other Medical History Have you received the Flu Vaccine for this season: No Have you received the Pneumonia Vaccine: Yes ROS Obtained: Yes Systems reviewed as appropriate & no additional complaints except as documented Physical Exam General General appearance: alert and in no apparent distress Respiratory Respiratory exam: Present normal lung sounds bilaterally Cardiovascular Cardiovascular exam: Present regular rate Neurological Exam Neurological exam: Present alert and oriented X3 Medical Decision Making Medical Records Medical records reviewed: Yes I reviewed the patient's medical records. Screening: Per USPSTF and CDC recommendations, given the prevalence of disease in our region, it is our hospital?s policy to screen for HIV and viral Hepatitis for all patients aged 18 and over and those with ongoing risk factors. Herman Inquiry Pt receiving controlled substance: No Vital Signs: 08/13/24 12:51 08/13/24 13:00 08/13/24 13:15 Temperature 98.7 F Temperature Source Oral Pulse Rate 66 69 Pulse Rate [Left Radial] 69 Respiratory Rate 20 17 22 Blood Pressure 101/51 L 104/52 L Blood Pressure [Right Arm] 85/50 L Blood Pressure Mean [Right Arm] 61 02 Sat by Pulse Oximetry 85 L 100 98 Oxygen Delivery Method Room Air Oxygen Flow Rate (LPM) 08/13/24 13:30 08/13/24 14:15 08/13/24 14:30 Temperature Temperature Source Pulse Rate 69 63 66 Pulse Rate [Left Radial] Respiratory Rate 19 18 17 Blood Pressure 99/53 L 103/51 L 105/56 L Blood Pressure [Right Arm] Blood Pressure Mean [Right Arm] 02 Sat by Pulse Oximetry 99 99 99 Oxygen Delivery Method Oxygen Flow Rate (LPM) 08/13/24 14:45 08/13/24 15:00 08/13/24 15:15 Temperature Temperature Source Pulse Rate 67 66 71 Pulse Rate [Left Radial] Respiratory Rate 16 17 21 Blood Pressure 104/50 L 107/53 L 108/59 L Blood Pressure [Right Arm] Blood Pressure Mean [Right Arm] 02 Sat by Pulse Oximetry 98 96 98 Oxygen Delivery Method Oxygen Flow Rate (LPM) 08/13/24 15:30 08/13/24 15:31 08/13/24 15:45 Temperature 98.7 F Temperature Source Pulse Rate 67 77 Pulse Rate [Left Radial] Respiratory Rate 17 24 Blood Pressure 120/56 L 108/70 L Blood Pressure [Right Arm] Blood Pressure Mean [Right Arm] 02 Sat by Pulse Oximetry 98 99 Oxygen Delivery Method Nasal Cannula Nasal Cannula Oxygen Flow Rate (LPM) 4 2 08/13/24 16:00 Temperature Temperature Source Pulse Rate 65 Pulse Rate [Left Radial] Respiratory Rate 19 Blood Pressure 112/53 L Blood Pressure [Right Arm] Blood Pressure Mean [Right Arm] 02 Sat by Pulse Oximetry 99 Oxygen Delivery Method Oxygen Flow Rate (LPM) Lab Data Lab results reviewed: Yes I reviewed the patient's lab results. Lab Results 08/13/24 12:41: Chlamy pneumoniae PCR Not detected, Adenovirus (PCR) Not detected, B. pertussis DNA (PCR) Not detected, Coronavirus OC43 (PCR) Not detected, Coronavirus HKU1 (PCR) Not detected, Coronavirus 229E (PCR) Not detected, SARS-CoV-2 (PCR) Not detected, Coronavirus NL63 (PCR) Not detected, Human Metapneumovir PCR Not detected, Influenza A (H1) PCR Not detected, Influ A (H1N1/09) PCR Not detected, Influenza A (H3) PCR Not detected, Influenza Type A (PCR) Not detected, Influenza Type B (PCR) Not detected, M. pneumoniae (PCR) Not detected, Parainfluenza 1 (PCR) Not detected, Parainfluenza 2 (PCR) Not detected, Parainfluenza 3 (PCR) Not detected, Parainfluenza 4 (PCR) Not detected, RSV (PCR) Not detected, Entero/Rhino (PCR) Not detected 08/13/24 13:15: WBC 12.8 H, RBC 3.78 L, Hgb 10.5 L, Hct 33.7 L, MCV 89.2, MCH 27.8, MCHC 31.2 L, RDW 16.5, Plt Count 120 L, MPV 9.2, Neut % (Auto) 84.8 H, L ymph % (Auto) 6.1 L, [place] % (Auto) 7.1, Eos % (Auto) 1.3, Baso % (Auto) 0.3, N eut # (Auto) 10.8 H, Lymph # (Auto) 0.8, [place] # (Auto) 0.9, Eos # (Auto) 0.2, Baso # (Auto) 0.0, PT 11.9, INR 1.08, VBG pH 7.38, VBG pCO2 46.0, VBG pO2 36.2, VBG HCO3 26.8, VBG Total CO2 28.3 H, VBG O2 Saturation 70.0, VBG Base Excess 1.8, VBG Lactic Acid 2.2 H, Sodium 134 L, Potassium 4.2, Chloride 94 L, Carbon Dioxide 30, Anion Gap 14.2, BUN 17, Creatinine 1.30 H, Estimated Creat Clear 58, Estimated GFR 55 L, Est GFR ( Amer) 66, Glucose 238 H, Hemoglobin A1c 8.7 H, Lactate 2.1, Calcium 9.1, Magnesium 1.7, Total Bilirubin 1.2, AST 27, ALT 21, Alkaline Phosphatase 80, Troponin I 0.01, NT-Pro-B Natriuret Pep 1270 H, Total Protein 7.1, Albumin 3.9, Globulin 3.2, Albumin/Globulin Ratio 1.2, P rocalcitonin 3.36 H, TSH 0.73 08/13/24 15:18: Troponin I 0.01 08/13/24 13:15 08/13/24 13:15 Orders (Tests/Meds): ED MEDICATIONS Generic Name Dose Route Start Last Admin Trade Name Freq PRN Reason Stop Dose Admin Acetaminophen 650 mg 08/13/24 15:12 Acetaminophen 325mg Tab PO 09/12/24 15:11 Q4HP PRN Fever or Mild Pain (1-3) Hydrocodone Bitart/Acetaminophen 1 tab 08/13/24 15:12 Hydrocodone/Apap 5/325 Mg Tablet PO 09/12/24 15:11 Q4HP PRN Mild to Moderate Pain (1-6) Hydrocodone Bitart/Acetaminophen 1 tab 08/13/24 17:33 Hydrocodone/Apap 5/325 Mg Tablet PO 09/12/24 17:44 Q8H PRN Moderate to Severe Pain (4-10) Allopurinol 300 mg 08/14/24 09:00 Allopurinol 300mg Tablet PO 09/13/24 08:59 DAILY JOSIE Clopidogrel Bisulfate 75 mg 08/14/24 09:00 Clopidogrel 75mg Tab PO 09/13/24 08:59 DAILY JOSIE Donepezil HCl 10 mg 08/14/24 09:00 Donepezil 10mg Tab PO 09/13/24 08:59 DAILY JOSIE Enoxaparin Sodium 40 mg 08/14/24 09:00 Enoxaparin 40mg/0.4ml Syringe SUBCUT 09/13/24 08:59 DAILY JOSIE Finasteride 5 mg 08/14/24 09:00 Finasteride 5mg Tablet PO 09/13/24 08:59 DAILY JOSIE Gabapentin 800 mg 08/13/24 21:00 Gabapentin 800mg Tablet PO 09/12/24 20:59 TID JOSIE Piperacillin Sod/Tazobactam 100 mls @ 200 mls/hr 08/13/24 17:30 08/13/24 18:00 Sod 4.5 gm/ Sodium Chloride IV 08/23/24 17:29 200 mls/hr Q6H JOSIE Administration Insulin Human Lispro 0 unit 08/13/24 16:30 08/13/24 16:47 Humalog 100 Units/Ml 10ml Vial (Ssi) SUBCUT 09/12/24 16:29 5 unit ACHS JOSIE Administration Protocol Levothyroxine Sodium 150 mcg 08/14/24 09:00 Levothyroxine 112mcg (0.112mg) Tab PO 09/13/24 08:59 DAILY JOSIE Metoprolol Succinate 25 mg 08/14/24 09:00 Metoprolol Succinate Xl 25mg Tablet PO 09/13/24 08:59 DAILY JOSIE Nicotine 21 mg 08/13/24 15:12 Nicotine 21mg/24hr Patch TD 09/12/24 15:11 DAILYP PRN Nicotine Cravings Non-Formulary Medication 81 mg 08/14/24 09:00 Aspirin PO 09/13/24 08:59 DAILY JOSIE Non-Formulary Medication 60 mg 08/14/24 09:00 Duloxetine PO 09/13/24 08:59 DAILY JOSIE Non-Formulary Medication 150 mg 08/13/24 21:00 Trazodone PO 09/12/24 20:59 HS JOSIE Ondansetron HCl 4 mg 08/13/24 15:12 Ondansetron 4mg/2ml Vial IV 09/12/24 15:11 Q8HP PRN Nausea Sodium Chloride 10 ml 08/13/24 15:16 Sodium Chloride 0.9% 10ml Flush Syringe IV 09/12/24 15:15 NEEDED PRN Maintain IV Site Sodium Chloride 3 ml 08/13/24 17:32 08/13/24 18:29 Sodium Chloride 3% 15ml Neb IH 09/12/24 17:31 3 ml ONCE PRN Administration INDUCE [employer] Tamsulosin HCl 0.4 mg 08/13/24 21:00 Tamsulosin 0.4mg Capsule PO 09/12/24 20:59 BID JOSIE Discontinued Medications Generic Name Dose Route Start Last Admin Trade Name Freq PRN Reason Stop Dose Admin Azithromycin 500 mg/ Sodium 250 mls @ 250 mls/hr 08/13/24 14:30 08/13/24 16:08 Chloride IV 08/23/24 14:29 250 mls/hr Q24H JOSIE Administration Ceftriaxone Sodium 1 gm/ 50 mls @ 100 mls/hr 08/13/24 14:30 08/13/24 15:20 Sodium Chloride IV 08/23/24 14:29 100 mls/hr Q24H JOSIE Administration Sodium Chloride 1,980 mls @ 990 mls/hr 08/13/24 14:22 08/13/24 15:20 Sod Chlor 0.9% 1000ml Bag 30 ml/kg infuse over 2 hr (1980 ml) 08/13/24 16:21 990 mls/hr IV Administration .Q2H ONE Iopamidol 70 ml 08/13/24 13:51 08/13/24 14:02 Iopamidol-370 (76%);100ml Bottle IV 08/13/24 13:52 70 ml ONCE ONE Administration Sodium Chloride 10 ml 08/13/24 13:51 08/13/24 14:02 Sodium Chloride 0.9% 10ml Syr (Rad Only) IV 08/13/24 13:52 10 ml ONCE ONE Administration Sodium Chloride 50 ml 08/13/24 13:51 08/13/24 14:02 0.9 % Sodium Chloride 50 Ml Vial IV 08/13/24 13:52 50 ml ONCE ONE Administration ORDERS Category Date Time Status CT angio chest PE protocol Stat Cat Scan 08/13/24 12:20 Completed BNP [NT Pro Brain Natriuretic Pep.] Stat Lab 08/13/24 13:15 Completed CBC w/Auto Diff [Complete Blood Count Auto Diff] Stat Lab 08/13/24 13:15 Completed CMP [Comprehensive Metabolic Panel] Stat Lab 08/13/24 13:15 Completed Complete Blood Count Auto Diff AMLAB Lab 08/14/24 06:00 Ordered Comprehensive Metabolic Panel AMLAB Lab 08/14/24 06:00 Ordered Full Resp Panel w/COVID ([facility]) Routine Lab 08/13/24 12:41 Completed Hemoglobin A1C Stat Lab 08/13/24 13:15 Completed Hemoglobin A1C Stat Lab 08/13/24 13:15 Received INR [Prothrombin Time INR] Stat Lab 08/13/24 13:15 Completed Lactic Acid Stat Lab 08/13/24 13:15 Completed Magnesium AMLAB Lab 08/14/24 06:00 Ordered Magnesium Stat Lab 08/13/24 13:15 Completed Phosphorous AMLAB Lab 08/14/24 06:00 Ordered Procalcitonin Stat Lab 08/13/24 13:15 Completed TSH [Thyroid Stimulating Hormone] Stat Lab 08/13/24 13:15 Completed Trop I [Troponin I] Stat Lab 08/13/24 13:15 Completed Troponin I Q3H Lab 08/13/24 15:18 Completed Troponin I Q3H Lab 08/13/24 17:55 Completed Blood Culture Stat Micro 08/13/24 12:56 Received VBG [Venous Blood Gas] Stat RT 08/13/24 13:15 Completed Tissue Perfus/Sepsis Re-Eval Sepsis Re-Evaluation Performed: Yes Date Performed: 08/13/24 Time Performed: 15:00 Medical Decision Narrative: In summary patient is a 68-year-old male who presents to the emergency department for evaluation of dyspnea. Patient has had recurrent falls and recently diagnosed with pneumonia and treated both with IV antibiotics at the [facility] and a course of Augmentin. Patient has had recurrent pneumonia several times in the last 6 months.. Patient is hemodynamically unstable on arrival with a blood pressure of 85/50 pulse 69 with sinus rhythm on the bedside monitor breathing 20 times a minute but satting at 85% on room air upon arrival, afebrile at 98.7. Physical exam is remarkable for diminished air entry bilaterally however left greater than right, no adventitious sounds noted no increased work of breathing or accessory muscle use. Cardiovascular is S1-S2 regular rate and rhythm without murmurs gallops rubs or thrills. Abdomen soft nontender no rebound or guarding no rigidity.. Differential diagnosis includes atypical pneumonia versus neoplasm versus CHF versus ACS versus PE etc. Initial workup will be conducted with hematologic labs twelve-lead EKG CT PE protocol. Initial interventions include supplemental O2 continuous pulse oximetry and cardiac monitoring. Initial workup reviewed by me shows hematologic labs significant for white count of 12.8 hemoglobin hematocrit 10.5 and 33.7 respectively absolute neutrophil count is 10.8 INR is 1.08 VBG shows a pH of 7.38 VBG lactic acid is 2.2 chemistry shows a sodium of 134 chloride of 94 creatinine of 1.3 GFR 55 glucose of 238 hemoglobin A1c is 8.7 lactate is 2.1 mag is 1.7 initial troponin is 0.01 NT proBNP is 1270 procalcitonin is 3.36 TSH is 0.73 full respiratory panel is negative and my informal interpretation of his CT PE protocol shows no evidence of thrombus but shows dense consolidations bilaterally, left greater than right, at the bases with a parapneumonic effusion in the left base. I have ordered blood cultures broad-spectrum antibiotics. Upon repeat evaluation patient has responded to fluid challenge with a pressure of 112/53 pulse 66 respiratory rate 19 any satting at 98% on 2 L by nasal cannula. I then had a interactive discussion with the patient and his at the patient's bedside and his relates that he has had some suspicion for aspiration previously however he did have a swallow study done at the [facility] that he reportedly passed. Given this I had interactive discussion with hospital medicine regarding patient KENDRICK presentation and management and he will be admitted for further evaluation and care. Critical Care Critical Care Time Critical Care Time: Yes Attestation: On 08/13/24, the high probability of a clinically significant, sudden or life threatening deterioration of the following system(s) required my full and direct attention, intervention and personal management. The time I documented below is in addition to time spent performing reported procedures but includes the following listed in this critical care notation. Total Time Total Critical Care Time: 30
--- NOTE | 2024-08-13 12:20 | CT_ITS ---
FINAL REPORT TECHNIQUE: Postcontrast axial images of the chest were performed in a CTA protocol. This study was performed with techniques to keep radiation doses as low as reasonably achievable, (ALARA). Individualized dose reduction technique using automated exposure control or adjustment of mA and/or kV according to the patient's size were employed. CLINICAL HISTORY: Dyspnea, recurrent pneumonia COMPARISON: 07/18/2023 FINDINGS: Patient is status post median sternotomy. There is diastases of the components of the sternum. The heart is normal in size. There are multiple small mediastinal lymph nodes. Prevascular lymph nodes measure up to 2.1 cm in greatest dimension. There are AP window lymph nodes measuring up to 1.8 cm. No pleural or pericardial effusion is identified. The thoracic aorta is normal in caliber with no focal aneurysm or dissection identified. There is no filling defect to suggest pulmonary embolism. Dense bibasilar consolidation is seen, left greater than right likely due to acute pneumonia or aspiration. Scarring or fibrosis is seen at the lung bases. The images of the upper abdomen demonstrate a benign left renal cyst measuring 2.6 cm. Patient is status postcholecystectomy. IMPRESSION: No evidence for PE on this exam. Dense bibasilar airspace infiltrates likely due to acute pneumonia or aspiration. Mediastinal adenopathy, favor reactive. Reviewed, Interpreted and Dictated by Palomo Chowdhury MD Transcribed by Radha Harrison Authenticated and [facility]
--- OUTSIDE RECORDS SUMMARY | 2024-08-13 12:43 | XMS_ITS | Encounter Summary ---
Author Organization [employer] ([place], [place], [place], [place]) Address [address] [place] [address] Care Team Providers Care Switchboard Operator Helper Name Role Phone Elijah Serra DO Primary Care Provider [phone] Encounter Details Date Type Department Care Team (Late st Contact Info) Description 08/18/2020 Transcribed Document [facility] Family Medicine Formerly [facility] [place] [address] ProviderMichael MD [address] [place] [address] Social History Tobacco Use Types Packs/Day Years Used Date Smoking Tobacco: Never Assessed Sex and Gender Information Value Date Recorded Sex Assigned at Male 08/04/2021 8:53 PM CDT Legal Sex Male 8:53 PM CDT Gender Identity Male 08/04/2021 8:53 PM CDT Sexual Orientation Not on file documented as of this encounter Miscellaneous Notes * Cerner Conversion Note - Michael ProviderMD - 08/18/2020 12:34 PM CDT DATE OF SERVICE: 08/18/2020 PRIMARY CARE PHYSICIAN: Elijah Serra DO PROCEDURES: 1. Right and left coronary angiogram. 2. Left heart catheterization. 3. LV angiogram. 4. SVG angiogram. 5. QUAN angiogram. INDICATIONS: 1. Abnormal cardiovascular study. 2. Comanche-vessel coronary artery disease with history of coronary artery bypass grafting. DESCRIPTION OF PROCEDURE: After having obtained written consent, the patient was brought to cardiac catheterization laboratory in a fasting condition. The right groin was prepped and draped. 2% lidocaine injected for local anesthesia. Right femoral artery was accessed with a micropuncture technique and a 6-Samoan sheath was placed and secured. A 6-Samoan Sim catheters were then used to reach the right coronary angiogram, left coronary angiogram, LV pressures, and LV angiogram were obtained. QUAN angiogram and SVG angiogram were also obtained. Upon completion of procedure, all catheters were removed. Right groin was sealed using a Mynx device and angiographic guidance. HEMODYNAMICS: Initial aortic pressure was 155/69, LV pressure was 156/11, LVEDP of 18. QUANTITATIVE ANGIOGRAPHY: LV function appeared to be normal. Ejection fraction about 55%. No gradient across the aortic valve on pullback. CORONARY ANGIOGRAPHY: Left main coronary artery is a large vessel, free of disease, bifurcates into the left anterior descending artery and left circumflex artery. Left anterior descending artery is a moderate-sized vessel. The proximal vessel has about a 50% to 60% stenosis noted. Mid vessel has 99% stenosis noted with competitive flow noted. Left circumflex artery is a large vessel, gives off OM1, OM2. The OM2 has about a 60% to 80% stenosis noted at the ostium. The rest of the left circumflex artery has mild 20% to 30% plaquing. Right coronary artery is a dominant vessel, gives off the PDA and PLV branches. The proximal right coronary artery has a stent in it, which is patent. Distal right coronary artery has about a 50% to 70% stenosis noted. The QUAN angiogram done, showed that the QUAN was not utilized. SVG to the diagonal and LAD is a sequential bypass graft which is patent with good flow into the solomon-vessel. SVG to the OM is patent. SVG to the distal right coronary artery is patent. IMPRESSION: The patient is a 64-year-old male with complaints of shortness of breath with abnormal cardiovascular study with history of coronary artery disease with coronary artery bypass grafting. FINDINGS: 1. Severe coronary artery disease involving the left anterior descending artery, diagonal artery and obtuse marginal artery. 2. QUAN angiogram done, shows the QUAN was not utilized. 3. SVG to the diagonal/LAD is a sequential graft, which is patent. 4. SVG to the OM is patent. 5. SVG to the right distal right coronary artery is patent. 6. LV function normal. Ejection fraction 55%. PLAN OF ACTION: We will continue with medical management and risk factor modification. /[id number] Ricky Cross MD SR/AQ / SR / MODL /[id number] CC: JUANY Gooden Electronically signed by Florencia, [facility] Conversion Network Systems Operator Cerner at 05/25/2022 6:24 PM CDT documented in this encounter Plan of Treatment Not on file documented as of this encounter Visit Diagnoses Not on filedocumented in this encounter Care Teams Switchboard Operator Helper Relationship Specialty Start Date End Date Elijah Serra, DO [address] [address] PCP - General Family Medicine 03/11/23 documented as of this encounter
--- OUTSIDE RECORDS SUMMARY | 2024-08-13 12:43 | XMS_ITS | Encounter Summary ---
Author Organization [facility] Address [address] [place] [address] Support Name Relationship Address Phone Stepan Gold Personal Relationship [address] [place] [address] Mi Gold Personal Relationship Unknown Rosalind Mai Personal Relationship Unknown + [phone] Vivi Ward Personal Relationship Unknown [phone] Care Team Providers Care Physical Security Engineer Name Role Phone Yehuda Barger MD Primary Care Provider [phone] Milton Crum DO Primary Care Provider Miky Benton MD Primary Care Provider [phone] Provider, Historical Unavailable Unavailable Willi Templeton MD Unavailable [phone] María Andre MD Unavailable [phone] Selene Rodriguez ENVIRONMENTAL REMEDIATION SPECIALIST Unavailable [phone] Mariah Flowers ENVIRONMENTAL REMEDIATION SPECIALIST Unavailable [phone] Neyda Beltran MD Unavailable [phone] Ryanne Roblero MD Unavailable Unavailable Mi Martin APRN Unavailable [phone] Elijah Serra DO Primary Care Provider [phone] Micha [place] MD Unavailable Encounter Details Date Type Department Care Team (Late st Contact Info) Description 04/12/2002 Historical Encounter Global [facility]ann [facility] [address] [facility] [address] Social History Tobacco Use Types Packs/Day Years Used Date Smoking Tobacco: Never Assessed Sex and Gender Information Value Date Recorded Sex Assigned at Not on file Legal Sex Male 9:48 PM EST Gender Identity Not on file Sexual Orientation Not on file documented as of this encounter Plan of Treatment Upcoming Encounters Date Type Department Care Team (Late st Contact Info) Description 11/06/2024 11:00 AM EDT Office Visit [facility] [address], [facility] [place] [address], [address] [place] [address] Micha [place] MD [address] [place], [place] [id number] Molly Figueroa PA-C [address] [place] [address] [address] [place] [address] documented as of this encounter Visit Diagnoses Not on filedocumented in this encounter Additional Health Concerns Infection Onset Date Last Indicated Resolved Time 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 02/24/2017 02/22/2017 02/22/2017 04/02/2024 9:[address] documented as of this encounter Care Teams Physical Security Engineer Relationship Specialty Start Date End Date Yehuda Barger MD [address] [place] [address] B [place] [address] PCP - General 02/16/09 04/13/23 Milton Crum DO [address] [place] [address] [place] [address] PCP - General 01/08/09 02/15/09 Miky Louis MD [facility] [facility] [place] [address] PCP - General 12/26/07 01/07/09 Elijah Serra DO [address] [place] [address] PCP - General Family Medicine 07/21/23 Provider, Historical 02/16/16 08/25/16 Willi Templeton MD [address] [place] [address] Gastroenterology 02/25/16 María Andre MD [address] [address] [place] [address] Gastroenterology 03/08/16 Selene Rodriguez APRN [address] [place] [address] [address] [place] [address] Gastroenterology 08/23/16 Mariah Flowers APRN [address] [place] [address] [address] [place] [address] Nurse Practitioner 08/26/16 Neyda Beltran MD [address] [address] [place] [address] Nephrology 03/17/17 Ryanne Roblero MD [address] [place] [address] Rheumatology 03/01/18 Mi Martin APRN [address] [place] [address] [address] [place] [phone] Nurse Practitioner Nurse Practitioner 04/16/19 Micha [place] MD [address] [place] [address] [address] [place] [address] Endocrinology 08/06/24 08/06/24 documented as of this encounter
--- OUTSIDE RECORDS SUMMARY | 2024-08-13 12:43 | XMS_ITS | Encounter Summary ---
Author Organization [facility] Address [address] [place] [address] Support Name Relationship Address Phone Stepan Gold Personal Relationship [address] [place] [address] Mi Gold Personal Relationship Unknown Rosalind Mai Personal Relationship Unknown + [phone] Vivi Ward Personal Relationship Unknown [phone] Care Team Providers Care Club Waiter/Waitress Name Role Phone Yehuda Barger MD Primary Care Provider [phone] Milton Crum DO Primary Care Provider Miky Benton MD Primary Care Provider [phone] Provider, Historical Unavailable Unavailable Willi Templeton MD Unavailable [phone] María Andre MD Unavailable [phone] Selene Rodriguez ENDODONTIST Unavailable [phone] Mariah Flowers ENDODONTIST Unavailable [phone] Neyda Beltran MD Unavailable [phone] Ryanne Roblero MD Unavailable Unavailable Mi Martin APRN Unavailable [phone] Elijah Serra DO Primary Care Provider [phone] Micha [place] MD Unavailable Encounter Details Date Type Department Care Team (Late st Contact Info) Description 04/05/2002 Historical [facility] Social History Tobacco Use Types Packs/Day Years [...] Description 11/06/2024 11:00 AM EDT Office Visit [facility] [address] [place], [facility] [address], [address] [place] [phone] Micha [place] MD [address] [place] [address] [place] [phone] Molly Figueroa PA-C [address] [place] [phone] documented as of this encounter Visit Diagnoses Not on filedocumented in this encounter Additional Health Concerns Infection Onset Date Last Indicated Resolved Time 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 02/24/2017 02/22/2017 02/22/2017 04/02/2024 9:[address] documented as of this encounter Care Teams Club Waiter/Waitress Relationship Specialty Start Date End Date Yehuda Barger MD [address] [place] [address] [place] [address] PCP - General 02/16/09 04/13/23 Milton Crum DO [address] [place] [address] [place] [address] PCP - General 01/08/09 02/15/09 Miky Louis MD [address] [facility] [place] [address] PCP - General 12/26/07 01/07/09 Elijah Serra DO [address] [place] [address] PCP - General Family Medicine 07/21/23 Provider, Historical 02/16/16 08/25/16 Willi Templeton MD [address] [place] [address] [address] [facility] [place] [address] Gastroenterology 02/25/16 María Andre MD [address] [place] [address] [address] [facility] [place] [address] Gastroenterology 03/08/16 Selene Rodriguez APRN [address] [place] [address] Gastroenterology 08/23/16 Mariah Flowers APRN [address] [place] [address] [address] [place] [address] Nurse Practitioner 08/26/16 Neyda Beltran MD [address] [place] [address] [address] [facility] [place] [address] Nephrology 03/17/17 Ryanne Roblero MD [address] [place] [address] [address] [facility] [place] [address] Rheumatology 03/01/18 Mi Martin APRN [address] [place] [address] [address] [place] [phone] Nurse Practitioner Nurse Practitioner 04/16/19 Micha [place] MD [address] [place] [address] [address] [place] [address] Endocrinology 08/06/24 08/06/24 documented as of this encounter
--- OUTSIDE RECORDS SUMMARY | 2024-08-13 12:43 | XMS_ITS | Encounter Summary ---
Author Organization [employer] ([place], [place], [place], [place]) Address [address] [place] [address] Care Team Providers Care Infusion Rn Name Role Phone Elijah Serra DO Primary Care Provider [phone] Encounter Details Date Type Department Care Team (Late st Contact Info) Description 08/18/2020 Transcribed Document [facility] Family Medicine [address] [place] [address] ProviderMichael MD [address] [place] [address] Social History Tobacco Use Types [...] Conversion Note - Michael ProviderMD - 08/18/2020 9:30 AM CDT Advance Directive Entered On: 08/18/2020 13:50 EDT Performed On: 08/18/2020 9:30 EDT by Jun Portillo Chaplain-Non Cert Advance Directive Patient has Advance Directive *Q : Yes, Advance Directive on file Request Family/Rep to Provide Copy of AD : Yes Family/Rep Contact Information : 1) Stepan Gold, , 2) Vivi Ward, daughter, Advance Directive Type : Living will Advance Directive Date : 08/18/2020 EDT Copy Advance Directive Verified/on Chart : Yes Date Hospital Obtained Advance Directive : 08/18/2020 EDT Advance Directive Comment : AD Completed. Jun Portillo Chaplain-Non Cert - 08/18/2020 13:45 EDT Electronically signed by [facility] Conversion Bar Pointer Cerner at 05/25/2022 6:03 PM CDT documented in this encounter Plan of Treatment Not on file documented as of this encounter Visit Diagnoses Not on filedocumented in this encounter Care Teams Infusion Rn Relationship Specialty Start Date End Date Elijah Serra, DO [address] [facility] 1ST [place] [address] PCP - General Family Medicine 03/11/23 documented as of this encounter
--- OUTSIDE RECORDS SUMMARY | 2024-08-13 12:43 | XMS_ITS | Encounter Summary ---
Author Organization [employer] ([place], [place], [place], [place]) Address [address] [place] [address] Care Team Providers Care Steam Shovel Engineer Name Role Phone Elijah Serra DO Primary Care Provider [phone] Encounter Details Date Type Department Care Team (Late st Contact Info) Description 08/18/2020 Transcribed Document [facility] [place] [address] [place] [address] ProviderMichael MD [address] [place] [address] Social History Tobacco Use Types Packs/Day Years Used Date Smoking Tobacco: Never Assessed Sex and Gender Information Value Date Recorded Sex Assigned at Male 08/04/2021 8:53 PM CDT Legal Sex Male 8:53 PM CDT Gender Identity Male 08/04/2021 8:53 PM CDT Sexual Orientation Not on file documented as of this encounter Miscellaneous Notes * Cerner Conversion Note - Michael Diaz MD - 08/18/2020 1:36 PM CDT Nursing Discharge Summary Entered On: 08/18/2020 13:38 EDT Performed On: 08/18/2020 13:36 EDT by RAMON GRAMAJO RN Discharge Documentation Discharge Date/Time : 08/17/2020 15:00 EDT Patient Disposition, General : Discharge Discharge To : Home with ambulatory/outpatient follow-up Mode Of Departure, General Discharge : Private vehicle, Wheelchair Accompanied By, Discharge : Spouse IV Discontinued : Yes Personal Belongings With Patient : Yes Discharge Instructions Reviewed With, Opportunity For Questions Given : Patient, Spouse Patient Education Completed : Yes Teaching Method : Demonstration, Explanation Teaching Evaluation : Returns demonstration, Verbalizes understanding RAMON GRAMAJO RN - 08/18/2020 13:36 EDT Electronically signed by Florencia [facility] Conversion Supervisor Nurse Cerner at 05/25/2022 6:30 PM CDT documented in this encounter Plan of Treatment Not on file documented as of this encounter Visit Diagnoses Not on filedocumented in this encounter Care Teams Steam Shovel Engineer Relationship Specialty Start Date End Date Elijah Serra, DO [address] [facility] 1ST [place] [address] PCP - General Family Medicine 03/11/23 documented as of this encounter
--- OUTSIDE RECORDS SUMMARY | 2024-08-13 12:43 | XMS_ITS | Encounter Summary ---
Author Organization [employer] ([place], [place], [place], [place]) Address [address] [place] [address] Care Team Providers Care Foil Spooler Name Role Phone Elijah Serra DO Primary Care Provider [phone] Encounter Details Date Type Department Care Team (Late st Contact Info) Description 08/18/2020 Transcribed Document [facility] Family Medicine [address] [place] [address] ProviderMichael MD [address] [place] [address] Social History Tobacco Use Types [...] Conversion Note - Michael ProviderMD - 08/18/2020 11:15 AM CDT Spiritual Care Assessment Entered On: 08/18/2020 13:45 EDT Performed On: 08/18/2020 11:15 EDT by Jun Portillo Chaplain-Non Cert General Information Initial Visit : Yes Referred by : Other: AD Request. Ministry Provided to : Patient, Family/Significant other Spiritual/Emotional Acuity : Medium Spiritual Framework : Somewhat integrated, provides some strength/resource Samaritan Preference : Mu-Ism Spiritual Leader Requested : No Episcopal Sacrament of the Sick/Anointing Needed : No Spud Sorter Follow-up Needed : No Jun Portillo Chaplain-Non Cert - 08/18/2020 13:41 EDT Spiritual Assessment Patient's Community/Relationship : Strength in patient's life Patient's Sense of Meaning : Strength in patient's life Patient's Concept of God/the Sacred : Strength in patient's life Patient's Sense of Hope : Strength in patient's life Spiritual Assessment Comment/Summary Points : Pt desired to complete AD. It was completed. Pt also desired to have his Last Will and Testament notarized. Cp did accomodate the AD request. Spud Sorter provided pastoral presence, support, hospitality, and prayer. Spirital Assessment Comment/Summary Report : SPIRITUAL ASSESSMENT COMMENT/SUMMARY No qualifying data available. Jun Portillo Chaplain-Non Cert - 08/18/2020 13:41 EDT Interventions Advance Directive Information Provided : Yes Advance Directive Comment : AD Completed. Emotional Support : Established trust, Hope strengths identified, Meaning strengths identified, Relationship strengths identified Spiritual and Samaritan : Prayer shared Change, Adjustment and Loss : End of life discussion/care Ethics, Advocacy and Referral : Advocated for patient Jun Portillo Chaplain-Non Cert - 08/18/2020 13:41 EDT documented in this encounter Plan of Treatment Not on file documented as of this encounter Visit Diagnoses Not on filedocumented in this encounter Care Teams Foil Spooler Relationship Specialty Start Date End Date Elijah Serra DO [address] [facility] 1ST [place] [address] PCP - General Family Medicine 03/11/23 documented as of this encounter
--- OUTSIDE RECORDS SUMMARY | 2024-08-13 12:43 | XMS_ITS | Encounter Summary ---
Author Organization [facility] Address [address] [place] [address] Support Name Relationship Address Phone Stepan Gold Personal Relationship [address] [place] [address] Mi Gold Personal Relationship Unknown Rosalind Mai Personal Relationship Unknown + [phone] Vivi Ward Personal Relationship Unknown [phone] Care Team Providers Care Cadence Specialists Name Role Phone Yehuda Barger MD Primary Care Provider [phone] Milton Crum DO Primary Care Provider Miky Benton MD Primary Care Provider [phone] Provider, Historical Unavailable Unavailable Willi Templeton MD Unavailable [phone] María Andre MD Unavailable [phone] Selene Rodriguez MOTOR VEHICLE ASSEMBLY SUPERVISOR Unavailable [phone] Mariah Flowers MOTOR VEHICLE ASSEMBLY SUPERVISOR Unavailable [phone] Neyda Beltran MD Unavailable [phone] Ryanne Roblero MD Unavailable Unavailable Mi Martin APRN Unavailable [phone] Elijah Serra DO Primary Care Provider [phone] Micha Washington MD Unavailable Encounter Details Date Type Department Care Team (Late st Contact Info) Description 08/01/2004 Historical Encounter Global Sebastian Alarcon MD [address] [place] [address] Social History Tobacco Use Types Packs/Day Years [...] Description 11/06/2024 11:00 AM EDT Office Visit [facility] [address] [place], [facility] [address], [address] [place] [address] Micha Washington MD [address] [place] [address] [place] [phone] Molly Figueroa PA-C [address] [place] [phone] documented as of this encounter Visit Diagnoses Not on filedocumented in this encounter Additional Health Concerns Infection Onset Date Last Indicated Resolved Time 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 02/24/2017 02/22/2017 02/22/2017 04/02/2024 9:[address] documented as of this encounter Care Teams Cadence Specialists Relationship Specialty Start Date End Date Yehuda Barger MD [address] [place] [address] [address] [place] [address] PCP - General 02/16/09 04/13/23 Milton Crum DO [address] [place] [address] [place] [address] PCP - General 01/08/09 02/15/09 Miky Louis MD [address] [place] [address] PCP - General 12/26/07 01/07/09 Elijah Serra DO [address] [place] [address] PCP - General Family Medicine 07/21/23 Provider, Historical 02/16/16 08/25/16 Willi Templeton MD [address] [place] [address] Gastroenterology 02/25/16 María Andre MD [address] [place] [address] [address] [place] [address] Gastroenterology 03/08/16 Selene Rodriguez APRN [address] [place] [address] [address] [place] [address] Gastroenterology 08/23/16 Mariah Flowers APRN [address] [place] [address] [address] [place] [address] Nurse Practitioner 08/26/16 Neyda Beltran MD [address] [address] [place] [address] Nephrology 03/17/17 Ryanne Roblero MD [address] [address] [place] [address] Rheumatology 03/01/18 Mi Martin APRN [address] [place] [address] [address] [place] [phone] Nurse Practitioner Nurse Practitioner 04/16/19 Micha Washington MD [address] [place] [address] [address] [place], [place] [id number] Endocrinology 08/06/24 08/06/24 documented as of this encounter
--- OUTSIDE RECORDS SUMMARY | 2024-08-13 12:43 | XMS_ITS | Encounter Summary ---
Author Organization [facility] Address [address] [place] [address] Support Name Relationship Address Phone Stepan Gold Personal Relationship [address] [place] [address] Mi Gold Personal Relationship Unknown Rosalind Mai Personal Relationship Unknown + [phone] Vivi Ward Personal Relationship Unknown [phone] Care Team Providers Care Utility Agent Name Role Phone Yehuda Barger MD Primary Care Provider [phone] Milton Crum DO Primary Care Provider Miky Benton MD Primary Care Provider [phone] Provider, Historical Unavailable Unavailable Willi Templeton MD Unavailable [phone] María Andre MD Unavailable [phone] Selene Rodriguez IT SUPPORT ANALYST Unavailable [phone] Mariah Flowers IT SUPPORT ANALYST Unavailable [phone] Neyda Beltran MD Unavailable [phone] Ryanne Roblero MD Unavailable Unavailable Mi Martin APRN Unavailable [phone] Elijah Serra DO Primary Care Provider [phone] Micha Washington MD Unavailable Encounter Details Date Type Department Care Team (Late st Contact Info) Description 04/03/2002 Historical Encounter Global Rian Randall MD [address] [place] [address] Social History Tobacco Use Types Packs/Day Years [...] Description 11/06/2024 11:00 AM EDT Office Visit [facility] [address], [place], [address] [place] [address] Micha Washington MD [address] [place], [place] [address] Molly Figueroa PA-C [address] [place] [address] [address] [place], [place] [address] documented as of this encounter Visit Diagnoses Not on filedocumented in this encounter Additional Health Concerns Infection Onset Date Last Indicated Resolved Time 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 02/24/2017 02/22/2017 02/22/2017 04/02/2024 9:[address] documented as of this encounter Care Teams Utility Agent Relationship Specialty Start Date End Date Yehuda Barger MD [address] [place] [address] [place] [address] PCP - General 02/16/09 04/13/23 Milton Crum DO [address] [place] [address] [place] [address] PCP - General 01/08/09 02/15/09 Miky Louis MD [address] [place] [address] PCP - General 12/26/07 01/07/09 Elijah Serra DO 100 [place] [address] PCP - General Family Medicine 07/21/23 Provider, Historical 02/16/16 08/25/16 iWlli Templeton MD [address] [facility] [address] [place] [address] Gastroenterology 02/25/16 María Andre MD [address] [place] [address] [address] [place] [address] Gastroenterology 03/08/16 Selene Rodriguez APRN [address] [place] [address] Gastroenterology 08/23/16 Mariah Flowers APRN [address] [place] [address] 510 [place] [address] Nurse Practitioner 08/26/16 Neyda Beltran MD [address] [address] [place] [address] Nephrology 03/17/17 Ryanne Roblero MD [address] [address] [place] [address] Rheumatology 03/01/18 Mi Martin APRN [address] [place] [address] [address] [place] [address] Nurse Practitioner Nurse Practitioner 04/16/19 Micha Washington MD [address] [place] [address] [address] [place] [address] Endocrinology 08/06/24 08/06/24 documented as of this encounter
--- OUTSIDE RECORDS SUMMARY | 2024-08-13 12:43 | XMS_ITS | Encounter Summary ---
Author Organization [facility] Address [address] [place] [address] Support Name Relationship Address Phone Stepan Gold Personal Relationship [address] [place] [address] Mi Gold Personal Relationship Unknown Rosalind Mai Personal Relationship Unknown Vivi Ward Personal Relationship Unknown Care Team Providers Care Environmental Manager Name Role Phone Yehuda Barger MD Primary Care Provider [phone] Milton Crum DO Primary Care Provider Miky Benton MD Primary Care Provider [phone] Provider, Historical Unavailable Unavailable Willi Templeton MD Unavailable [phone] María Andre MD Unavailable [phone] Selene Rodriguez METAL CRAFTS TEACHER Unavailable Mariah Flowers METAL CRAFTS TEACHER Unavailable [phone] Neyda Beltran MD Unavailable [phone] Ryanne Roblero MD Unavailable Unavailable Mi Martin APRN Unavailable Elijah Serra DO Primary Care Provider [phone] Micha Washington MD Unavailable Encounter Details Date Type Department Care Team (Late st Contact Info) Description 04/27/2004 Historical Encounter Global Horacio Sherman MD [address] [place] [address] Social History Tobacco Use Types Packs/Day Years [...] Description 11/06/2024 11:00 AM EDT Office Visit [facility] [address], [address] [place] [address], [address] [place] [address] Micha Washington MD [address] [place], [place] [address] Molly Figueroa PA-C 613 [address] [address] [place], [place] [address] documented as of this encounter Visit Diagnoses Not on filedocumented in this encounter Additional Health Concerns Infection Onset Date Last Indicated Resolved Time 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 02/24/2017 02/22/2017 02/22/2017 04/02/2024 9:[address] documented as of this encounter Care Teams Environmental Manager Relationship Specialty Start Date End Date Yehuda Barger MD [address] [place] [address] [address] [facility] [address] [place] [address] PCP - General 02/16/09 04/13/23 Milton Crum DO [address] [place] [address] [address] [facility] [address] [place] [address] PCP - General 01/08/09 02/15/09 Miky Louis MD [address] [facility] [place] [address] PCP - General 12/26/07 01/07/09 Elijah Serra DO 100 [place] [address] PCP - General Family Medicine 07/21/23 Provider, Historical 02/16/16 08/25/16 Willi Templeton MD [address] [place] [address] Gastroenterology 02/25/16 María Andre MD 613 [facility] [address] [place], [place] [address] Gastroenterology 03/08/16 Selene Rodriguez APRN [address] [place] [address] 203 [place] [address] Gastroenterology 08/23/16 Mariah Flowers APRN [address] [place] [address] [address] [place] [address] Nurse Practitioner 08/26/16 Neyda Beltran MD [address] [place] [address] Nephrology 03/17/17 Ryanne Roblero MD [address] [place] [address] [address] [place] [address] Rheumatology 03/01/18 Mi Martin APRN [address] [place] [address] 102 [place] [address] Nurse Practitioner Nurse Practitioner 04/16/19 Micha Washington MD [address] [place] [address] [address] [place], [place] [address] Endocrinology 08/06/24 08/06/24 documented as of this encounter
--- OUTSIDE RECORDS SUMMARY | 2024-08-13 12:43 | XMS_ITS | Encounter Summary ---
Author Organization [facility] Address [address] [place] [address] Support Name Relationship Address Phone Stepan Gold Personal Relationship [address] [facility] [place] [address] Mi Asif Personal Relationship Unknown Rosalind Andersonill Personal Relationship Unknown [phone] Vivi Ward Personal Relationship Unknown Care Team Providers Care Database Analyst Name Role Phone Lesley Grace MD Primary Care Provider [phone] Willi Templeton MD Unavailable [phone] María Andre MD Unavailable [phone] Selene Rodriguez IMMIGRATION INSPECTOR Unavailable Mariah Flowers IMMIGRATION INSPECTOR Unavailable Neyda Beltran MD Unavailable Ryanne Roblero MD Unavailable Unavailable Mi Martin IMMIGRATION INSPECTOR Unavailable [phone] Elijah Serra DO Primary Care Provider Micha Washington MD Unavailable Reason for Visit * Reason Onset Date Comments Medications Refill 03/16/2017 Encounter Details Date Type Department Care Team (Late st Contact Info) Description 03/16/[address] LESLEY GRACE MD, [facility] [address] [place] [address] Lesley Grace MD [address] [place] [address] [place] [address] Social History Tobacco Use Types Packs/Day Years Used Date Smoking Tobacco: Never Smokeless Tobacco: Never Alcohol Use Standard Drinks/Week Comments No 0 (1 standard drink = 0.6 oz pur e alcohol) Sex and Gender Information Value Date Recorded Sex Assigned at Not on file Legal Sex Male 9:48 PM EST Gender Identity Not on file Sexual Orientation Not on file documented as of this encounter Plan of Treatment Upcoming Encounters Date Type Department Care Team (Late st Contact Info) Description 11/06/2024 11:00 AM EDT Office Visit [facility] [address] [place] [address], [facility] [address] [place], [place] [address] Micha [place] MD [address] [place] [address] Molly Figueroa PA-C [address] [place] [address] [place] [address] documented as of this encounter Visit Diagnoses Not on filedocumented in this encounter Additional Health Concerns Infection Onset Date Last Indicated Resolved Time 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 02/24/2017 02/22/2017 02/22/2017 04/02/2024 9:[address] documented as of this encounter Care Teams Database Analyst Relationship Specialty Start Date End Date Lesley Grace MD [address] [place] [address] B [place] [address] PCP - General 02/16/09 04/13/23 Elijah Serra DO 100 [place] [address] PCP - General Family Medicine 07/21/23 Willi Templeton MD [address] [place] [address] 430 [place] [address] Gastroenterology 02/25/16 María Ander MD [address] [place] [address] 430 [place] [address] Gastroenterology 03/08/16 Selene Rodriguez APRN [address] [place] [address] 203 [place] [address] Gastroenterology 08/23/16 Mariah Flowers APRN [address] [place] [address] 510 [place] [address] Nurse Practitioner 08/26/16 Neyda Beltran MD [address] [place] [address] [address] [facility] [place] [address] Nephrology 03/17/17 Ryanne Roblero MD [address] [place] [address] [address] [facility] [place] [address] Rheumatology 03/01/18 Mi Martin APRN [address] [place] [address] 102 [place] [address] Nurse Practitioner Nurse Practitioner 04/16/19 Micha Washington MD [address] [place] [address] [address] [place] [address] Endocrinology 08/06/24 08/06/24 documented as of this encounter
--- OUTSIDE RECORDS SUMMARY | 2024-08-13 12:43 | XMS_ITS | Encounter Summary ---
Author Organization [facility] Address [address] [place] [address] Support Name Relationship Address Phone Stepan Gold Personal Relationship [address] [place] [address] Mi Gold Personal Relationship Unknown [phone] Rosalind Mai Personal Relationship Unknown [phone] Vivi Ward Personal Relationship Unknown Care Team Providers Care Piper Installer Name Role Phone Lesley Grace MD Primary Care Provider Willi Templeton MD Unavailable María Andre MD Unavailable Selene Rodriguez COMPOUNDING ASSISTANT Unavailable Mariah Flowers COMPOUNDING ASSISTANT Unavailable Neyda Beltran MD Unavailable Ryanne Roblero MD Unavailable Unavailable Mi Martin COMPOUNDING ASSISTANT Unavailable [phone] Elijah Serra DO Primary Care Provider Micha Washington MD Unavailable Encounter Details Date Type Department Care Team (Late st Contact Info) Description 06/08/[address] LESLEY GRACE MD, [facility] 105 [facility] 194 [place] [address] Lesley Grace MD 105 [facility] [address] [place] [address] Social History Tobacco Use Types Packs/Day Years Used Date Smoking Tobacco: Never Smokeless Tobacco: Never Alcohol Use Standard Drinks/Week Comments No 0 (1 standard drink = 0.6 oz pur e alcohol) Sex and Gender Information Value Date Recorded Sex Assigned at Not on file Legal Sex Male 9:48 PM EST Gender Identity Not on file Sexual Orientation Not on file COVID-19 Exposure Response Date Recorded In the last month, have you been in contact with someone who was confirmed or suspected to have Coronavirus / COVID-19? No / Unsure 06/08/2019 8:24 AM EDT documented as of this encounter Miscellaneous Notes * Telephone Encounter - Usman Sapphire - 06/08/2019 8:18 AM EDT Pt stepped on a drill bit and it penetrated into his left ankle.PT went to [facility] in [place]. Theycoderized and it . Pt pulled band aid off today and there is white puss coming out of it. # [phone] Eliana Hernandes He is sending a pic kj documented in this encounter Plan of Treatment Upcoming Encounters Date Type Department Care Team (Late st Contact Info) Description 11/06/2024 11:00 AM EDT Office Visit [address], [facility], [address] [place] [address] Micha Washington MD [address] [facility] [address] [place] [address] Molly Figueroa PA-C [address] [address] [place] [address] documented as of this encounter Visit Diagnoses Not on filedocumented in this encounter Additional Health Concerns Infection Onset Date Last Indicated Resolved Time 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 02/24/2017 02/22/2017 02/22/201704/0204/02/2024 9:[address] documented as of this encounter Care Teams Piper Installer Relationship Specialty Start Date End Date Lesley Grace MD [address] [place] [address] [place] [address] PCP - General 02/16/09 04/13/23 Elijah Serra DO 100 [place] [address] PCP - General Family Medicine 07/21/23 Willi Templeton MD 613 [facility] [address] [place] [address] Gastroenterology 02/25/16 María Andre MD 61 [facility] [address] [place] [address] Gastroenterology 03/08/16 Selene Rodriguez APRN [address] [place] [address] Gastroenterology 08/23/16 Mariah Flowers APRN 61 [facility] [address] 510 [place] [address] Nurse Practitioner 08/26/16 Neyda Beltran MD [address] [place] [address] Nephrology 03/17/17 Ryanne Roblero MD 613 [facility] [address] [place] [address] Rheumatology 03/01/18 Mi Martin APRN [address] [place] [address] Nurse Practitioner Nurse Practitioner 04/16/19 Micha Washington MD [address] [place] [address] Endocrinology 08/06/24 08/06/24 documented as of this encounter
--- OUTSIDE RECORDS SUMMARY | 2024-08-13 12:43 | XMS_ITS | Encounter Summary ---
Author Organization [facility] Address [address] [place] [address] Support Name Relationship Address Phone Stepan Gold Personal Relationship [address] [facility] [place] [address] Mi Asif Personal Relationship Unknown [phone] Rosalind Mai Personal Relationship Unknown [phone] Vivi Ward Personal Relationship Unknown Care Team Providers Care Bargain Table Clerk Name Role Phone Lesley Grace MD Primary Care Provider [phone] Willi Templeton MD Unavailable María Andre MD Unavailable Selene Rodriguez NURSING HOME SOCIAL WORKER Unavailable Mariah Flowers NURSING HOME SOCIAL WORKER Unavailable Neyda Beltran MD Unavailable Ryanne Roblero MD Unavailable Unavailable Mi Martin NURSING HOME SOCIAL WORKER Unavailable [phone] Elijah Serra DO Primary Care Provider Micha Washington MD Unavailable Reason for Visit * Reason Onset Date Comments Medications Refill 01/26/2019 Encounter Details Date Type Department Care Team (Late st Contact Info) Description 01/26/[address] LESLEY GRACE MD, [facility] 105 [facility] [address] [place] [phone] Lesley Grace MD [address] [place] [address] [place] [address] Neuropathy Social History Tobacco Use Types Packs/Day Years [...] Description 11/06/2024 11:00 AM EDT Office Visit [facility] [address] [place] [address], [facility] [address] [place] [phone] Micha Washington MD [address] [place] [phone] Molly Figueroa PA-C [address] [place] [address] [place] [phone] documented as of this encounter Visit Diagnoses Diagnosis Neuropathy Mononeuritis of unspecified site documented in this encounter Additional Health Concerns Infection Onset Date Last Indicated Resolved Time 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 02/24/2017 02/22/2017 02/22/2017 04/02/2024 9:[address] documented as of this encounter Care Teams Bargain Table Clerk Relationship Specialty Start Date End Date Lesley Grace MD [address] [place] [address] [place] [address] PCP - General 02/16/09 04/13/23 Elijah Serra DO 100 [place] [address] PCP - General Family Medicine 07/21/23 Willi Templeton MD [address] [place] [address] [address] [place] [address] Gastroenterology 02/25/16 María Andre MD [address] [place] [address] [address] [place] [address] Gastroenterology 03/08/16 Selene Rodriguez APRN [address] [place] [address] 203 [place] [address] Gastroenterology 08/23/16 Mariah Flowers APRN [address] [place] [address] 510 [place] [address] Nurse Practitioner 08/26/16 Neyda Beltran MD [address] [place] [address] [address] [place] [address] Nephrology 03/17/17 Ryanne Roblero MD [address] [place] [address] [address] [place] [address] Rheumatology 03/01/18 Mi Martin APRN [address] [place] [address] 102 [place] [address] Nurse Practitioner Nurse Practitioner 04/16/19 Micha Washington MD [address] [place] [address] [address] [place] [address] Endocrinology 08/06/24 08/06/24 documented as of this encounter
--- OUTSIDE RECORDS SUMMARY | 2024-08-13 12:43 | XMS_ITS | Encounter Summary ---
Author Organization [facility] Address [address] [place] [address] Support Name Relationship Address Phone Stepan Gold Personal Relationship [address] [place] [address] Mi Gold Personal Relationship Unknown Rosalind Mai Personal Relationship Unknown [phone] Vivi Ward Personal Relationship Unknown [phone] Care Team Providers Care Dispatch Coordinator Name Role Phone Yehuda Barger MD Primary Care Provider [phone] Milton Crum DO Primary Care Provider Miky Benton MD Primary Care Provider [phone] Provider, Historical Unavailable Unavailable Willi Templeton MD Unavailable [phone] María Andre MD Unavailable [phone] Selene Rodriguez HORSE RACER Unavailable [phone] Mariah Flowers HORSE RACER Unavailable [phone] Neyda Beltran MD Unavailable [phone] Ryanne Roblero MD Unavailable Unavailable Mi Martin APRN Unavailable [phone] Elijah Serra DO Primary Care Provider [phone] Micha Washington MD Unavailable Encounter Details Date Type Department Care Team (Late st Contact Info) Description 04/24/2002 Historical Encounter Global Rian Randall MD [address] [place] [address] Social History Tobacco Use Types Packs/Day Years [...] Description 11/06/2024 11:00 AM EDT Office Visit [facility] [address], [address] [place] [address], [address] [place] [address] Micha Washington MD [address] [place] [place], [place] [address] Molly Figueroa PA-C [address] [place] [address] [address] [place], [place] [phone] documented as of this encounter Visit Diagnoses Not on filedocumented in this encounter Additional Health Concerns Infection Onset Date Last Indicated Resolved Time 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 02/24/2017 02/22/2017 02/22/2017 04/02/2024 9:[address] documented as of this encounter Care Teams Dispatch Coordinator Relationship Specialty Start Date End Date Yehuda Barger MD [address] [place] [address] [place] [address] PCP - General 02/16/09 04/13/23 Milton Crum DO [address] [place] [address] [place] [address] PCP - General 01/08/09 02/15/09 Miky Louis MD [address] [place] [address] PCP - General 12/26/07 01/07/09 Elijah Serra DO 100 [place] [address] PCP - General Family Medicine 07/21/23 Provider, Historical 02/16/16 08/25/16 Willi Templeton MD 613 [facility] [address] [place] [address] Gastroenterology 02/25/16 María Andre MD [address] [place] [address] [address] [place] [address] Gastroenterology 03/08/16 Selene Rodriguez APRN [address] [place] [address] Gastroenterology 08/23/16 Mariah Flowers APRN [address] [place] [address] 510 [place] [address] Nurse Practitioner 08/26/16 Neyda Beltran MD [address] [address] [place] [address] Nephrology 03/17/17 Ryanne Roblero MD [address] [address] [place] [address] Rheumatology 03/01/18 Mi Martin APRN [address] [place] [address] [address] [place] [address] Nurse Practitioner Nurse Practitioner 04/16/19 Micha [place]n MD [address] [place] [address] [address] [place] [address] Endocrinology 08/06/24 08/06/24 documented as of this encounter
--- OUTSIDE RECORDS SUMMARY | 2024-08-13 12:43 | XMS_ITS | Encounter Summary ---
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 [address] SOLEDAD DOWD :1955 Visit Time:08/18/2020 Your Visit Summary Your Care Team Admitting Physician - JOHANA BARNEY MD-CAR Attending Physician - JOHANA BARNEY MD-SARA Primary Care Physician - ROSEMARIE, ELIJAH C, DO-FAM Referring Physician - JOHANA BARNEY MD-CAR Your Diagnosis Abnormal cardiovascular function study Atherosclerotic heart disease of [place] coronary artery without angina pectoris, Atherosclerotic heart disease of [place] coronary artery without angina pectoris Discharge Vitals Temperature 36.7 ??C Heart Rate (Monitored) 62 Respiratory Rate 9 Blood Pressure 127/64 What to do next Instructions From Your Care Team Diet after Discharge: Resume usual diet as tolerated Activity after Discharge: Rest and relax today, No strenuous activity, No lifting/pushing/pulling more than 10 pounds for 1 week., _ Driving Restrictions: No driving for 24 hours. Showering/Bathing: No showering for 24 hours., No tub bathing, soaking or swimming for 3-5 days until site is healed. Medications: No changes to your current home medications., _, You will hold any medications containing Metformin for 48 hours. Dressing Instructions: You can remove the dressing in 24 hours., _, _ Follow-Up Appointments Follow Up with JASON BURGOS When 09/08/2020 01:00 PM EDT Comments Appointment has been made Where: [address] [facility] [place], [place] [address]onica (1) Medications Take your medications faithfully. Do NOT skip medication. Do NOT stop taking medications without the direction of a physician. Carry a list of your medications with you at all times, and take this medication list with you to your first follow up visit. Report any side effects. Avoid herbal remedies unless discussed with your physician. As part of your treatment plan, your physician may have prescribed a limited course of a controlled substance. This medication may be given to help people with moderate or severe pain or for other medical conditions, but there are risks involved with treatment. Common side effects may include nausea, constipation, drowsiness, sweating, itching, dry mouth, and rash. More serious side effects may include cognitive and motor impairment, like problems with thinking, concentrating, alertness, and movement (e.g. slowed reflexes), and driving and operating heavy machinery can be dangerous. It is important for you to talk to your physician if you have these side effects or questions. These controlled substances can produce physical dependence and be habit-forming if taken for an extended period of time, which means that the body has gotten used to them and may experience withdrawal symptoms if they are abruptly stopped. Withdrawal symptoms can include runny nose, sweating, goose bumps, diarrhea, abdominal cramping, rapid heartbeat, difficulty sleeping, and nervousness. Please dispose of unused and medications per your retail pharmacy guidance. Allergies Contrast Dye Tape iodine topical (Unknown) Immunizations This Visit No Immunizations Found Education Materials Groin Site Care Refer to this sheet in the next few weeks. These instructions provide you with information on caring for yourself after your procedure. Your caregiver may also give you more specific instructions. Your treatment has been planned according to current medical practices, but problems sometimes occur. Call your caregiver if you have any problems or questions after your procedure. HOME CARE INSTRUCTIONS ??? You may shower 24 hours after the procedure. Remove the bandage (dressing ) and gently wash the site with plain soap and water. Gently pat the site dry. ??? Do not apply powder or lotion to the site. ??? Do not sit in a bathtub, swimming pool, or whirlpool for 5 to 7 days. ??? No bending, squatting, or lifting anything over 10 pounds (4.5 kg) as directed by your caregiver. ??? Inspect the site at least twice daily. ??? Do not drive home if you are discharged the same day of the procedure. Have someone else drive you. ??? You may drive 24 hours after the procedure unless otherwise instructed by your caregiver. What to expect: ??? Any bruising will usually fade within 1 to 2 weeks. ??? Blood that collects in the tissue (hematoma ) may be painful to the touch. It should usually decrease in size and tenderness within 1 to 2 weeks. SEEK IMMEDIATE MEDICAL CARE IF: ??? You have unusual pain at the groin site or down the affected leg. ??? You have redness, warmth, swelling, or pain at the groin site. ??? You have drainage (other than a small amount of blood on the dressing). ??? You have chills. ??? You have a fever or persistent symptoms for more than 72 hours. ??? You have a fever and your symptoms suddenly get worse. ??? Your leg becomes pale, cool, tingly, or numb. ??? You have heavy bleeding from the site. Hold pressure on the site. Document Released: 02/26/2011 Document Revised: 04/17/2012 Document Reviewed: 02/26/2011 ExitCare?? Patient Information ??2013 [employer]. Angiogram, Care After This sheet gives you information about how to care for yourself after your procedure. Your doctor may also give you more specific instructions. If you have problems or questions, contact your doctor. Follow these instructions at home: Insertion site care ??? Follow instructions from your doctor about how to take care of your long, thin tube (catheter) insertion area. Make sure you: ? Wash your hands with soap and water before you change your bandage (dressing). If you cannot use soap and water, use hand bottle line worker. ? Change your bandage as told by your doctor. ? Leave stitches (sutures), skin glue, or skin tape (adhesive) strips in place. They may need to stay in place for 2 weeks or longer. If tape strips get loose and curl up, you may trim the loose edges. Do not remove tape strips completely unless your doctor says it is okay. ??? Do not take baths, swim, or use a hot tub until your doctor says it is okay. ??? You may shower 24???48 hours after the procedure or as told by your doctor. ? Gently wash the area with plain soap and water. ? Pat the area dry with a clean towel. ? Do not rub the area. This may cause bleeding. ??? Do not apply powder or lotion to the area. Keep the area clean and dry. ??? Check your insertion area every day for signs of infection. Check for: ? More redness, swelling, or pain. ? Fluid or blood. ? Warmth. ? Pus or a bad smell. Activity ??? Rest as told by your doctor, usually for 1???2 days. ??? Do not lift anything that is heavier than 10 lbs. (4.5 kg) or as told by your doctor. ??? Do not drive for 24 hours if you were given a medicine to help you relax (sedative). ??? Do not drive or use heavy machinery while taking prescription pain medicine. General instructions ??? Go back to your normal activities as told by your doctor, usually in about a week. Ask your doctor what activities are safe for you. ??? If the insertion area starts to bleed, lie flat and put pressure on the area. If the bleeding does not stop, get help right away. This is an emergency. ??? Drink enough fluid to keep your pee (urine) clear or pale yellow. ??? Take elsb-kyi-kknvtoh and prescription medicines only as told by your doctor. ??? Keep all follow-up visits as told by your doctor. This is important. Contact a doctor if: ??? You have a fever. ??? You have chills. ??? You have more redness, swelling, or pain around your insertion area. ??? You have fluid or blood coming from your insertion area. ??? The insertion area feels warm to the touch. ??? You have pus or a bad smell coming from your insertion area. ??? You have more bruising around the insertion area. ??? Blood collects in the tissue around the insertion area (hematoma) that may be painful to the touch. Get help right away if: ??? You have a lot of pain in the insertion area. ??? The insertion area swells very fast. ??? The insertion area is bleeding, and the bleeding does not stop after holding steady pressure on the area. ??? The area near or just beyond the insertion area becomes pale, cool, tingly, or numb. These symptoms may be an emergency. Do not wait to see if the symptoms will go away. Get medical help right away. Call your local emergency services (911 in the [place] Do not drive yourself to the hospital. Summary ??? After the procedure, it is common to have bruising and tenderness at the long, thin tube insertion area. ??? After the procedure, it is important to rest and drink plenty of fluids. ??? Do not take baths, swim, or use a hot tub until your doctor says it is okay to do so. You may shower 24???48 hours after the procedure or as told by your doctor. ??? If the insertion area starts to bleed, lie flat and put pressure on the area. If the bleeding does not stop, get help right away. This is an emergency. This information is not intended to replace advice given to you by your health care provider. Make sure you discuss any questions you have with your health care provider. Document Revised: 01/06/2018 Document Reviewed: 01/18/2017 [email or web address] Patient Education ?? 2020 [employer] Coronary Angiogram A coronary angiogram is an X-ray procedure that is used to examine the arteries in the heart. Contrast dye is injected through a long, thin tube (catheter) into these arteries. Then X-rays are taken to show any blockage in these arteries. You may have this procedure if you: ??? Are having chest pain, or other symptoms of angina, and you are at risk for heart disease. ??? Have an abnormal stress test or test of your heart's electrical activity (electrocardiogram, or ECG). ??? Have chest pain and heart failure. ??? Are having irregular heart rhythms. A coronary angiogram or heart catheterization can show if you have valve disease or a disease of the aorta. This procedure can also be used to check the overall function of your heart muscle. Let your health care provider know about: ??? Any allergies you have, including allergies to medicines or contrast dye. ??? All medicines you are taking, including vitamins, herbs, eye drops, creams, and fvrc-vdf-kqicfpn medicines. ??? Any problems you or family members have had with anesthetic medicines. ??? Any blood disorders you have. ??? Any surgeries you have had. ??? Any history of kidney problems or kidney failure. ??? Any medical conditions you have. ??? Whether you are or may be . ??? Whether you are . What are the risks? Generally, this is a safe procedure. However, problems may occur, including: ??? Infection. ??? Allergic reaction to medicines or dyes that are used. ??? Bleeding from the insertion site or other places. ??? Damage to nearby structures, such as blood vessels, or damage to kidneys from contrast dye. ??? Irregular heart rhythms. ??? Stroke (rare). ??? Heart attack (rare). What happens before the procedure? Staying hydrated Follow instructions from your health care provider about hydration, which may include: ??? Up to 2 hours before the procedure ??? you may continue to drink clear liquids, such as water, clear fruit juice, black coffee, and plain tea. Eating and drinking restrictions Follow instructions from your health care provider about eating and drinking, which may include: ??? 8 hours before the procedure ??? stop eating heavy meals or foods, such as meat, fried foods, or fatty foods. ??? 6 hours before the procedure ??? stop eating light meals or foods, such as toast or cereal. ??? 6 hours before the procedure ??? stop drinking milk or drinks that contain milk. ??? 2 hours before the procedure ??? stop drinking clear liquids. Medicines Ask your health care provider about: ??? Changing or stopping your regular medicines. This is especially important if you are taking diabetes medicines or blood thinners. ??? Taking medicines such as aspirin and ibuprofen. These medicines can thin your blood. Do not take these medicines unless your health care provider tells you to take them. Aspirin may be recommended before coronary angiograms even if you do not normally take it. ??? Taking cxrm-kfu-avuhnwx medicines, vitamins, herbs, and supplements. General instructions ??? Do not use any products that contain nicotine or tobacco for at least 4 weeks before the procedure. These products include cigarettes, e-cigarettes, and chewing tobacco. If you need help quitting, ask your health care provider. ??? You may have an exam or testing. ??? Plan to have someone take you home from the hospital or clinic. ??? If you will be going home right after the procedure, plan to have someone with you for 24 hours. ??? Ask your health care provider: ? How your insertion site will be marked. ? What steps will be taken to help prevent infection. These may include: ? Removing hair at the insertion site. ? Washing skin with a germ-killing soap. ? Taking antibiotic medicine. What happens during the procedure? You will lie on your back on an X-ray table. ??? An IV will be inserted into one of your veins. ??? Electrodes will be placed on your chest. ??? You will be given one or more of the following: ? A medicine to help you relax (sedative). ? A medicine to numb the catheter insertion area (local anesthetic). ??? You will be connected to a continuous ECG monitor. ??? The catheter will be inserted into an artery in one of these areas: ? Your groin area in your upper thigh. ? Your wrist. ? The fold of your arm, near your elbow. ??? An X-ray procedure (fluoroscopy) will be used to help guide the catheter to the opening of the blood vessel to be used. ??? A dye will be injected into the catheter and X-rays will be taken. The dye will help to show any narrowing or blockages in the heart arteries. ??? Tell your health care provider if you have chest pain or trouble breathing. ??? If blockages are found, another procedure may be done to open the artery. ??? The catheter will be removed after the fluoroscopy is complete. ??? A bandage (dressing) will be placed over the insertion site. Pressure will be applied to stop bleeding. ??? The IV will be removed. The procedure may vary among health care providers and hospitals. What happens after the procedure? Your blood pressure, heart rate, breathing rate, and blood oxygen level will be monitored until you leave the hospital or clinic. ??? You will need to lie still for a few hours, or for as long as told by your health care provider. ? If the procedure is done through the groin, you will be told not to bend or cross your legs. ??? The insertion site and the pulse in your foot or wrist will be checked often. ??? More blood tests, X-rays, and an ECG may be done. ??? Do not drive for 24 hours if you were given a sedative during your procedure. Summary ??? A coronary angiogram is an X-ray procedure that is used to examine the arteries in the heart. ??? Contrast dye is injected through a long, thin tube (catheter) into each artery. ??? Tell your health care provider about any allergies you have, including allergies to contrast dye. ??? After the procedure, you will need to lie still for a few hours and drink plenty of fluids. This information is not intended to replace advice given to you by your health care provider. Make sure you discuss any questions you have with your health care provider. Document Revised: 08/16/2019 Document Reviewed: 08/16/2019 [employer] Patient Education ?? 2020 [employer] Coronary Artery Disease, Male Coronary artery disease (CAD) is a condition in which the arteries that lead to the heart (coronary arteries) become narrow or blocked. The narrowing or blockage can lead to decreased blood flow to the heart. Prolonged reduced blood flow can cause a heart attack (myocardial infarction or [place]). This condition may also be called coronary heart disease. Because CAD is the leading cause of in men, it is important to understand what causes this condition and how it is treated. What are the causes? CAD is most often caused by atherosclerosis. This is the buildup of fat and cholesterol (plaque) on the inside of the arteries. Over time, the plaque may narrow or block the artery, reducing blood flow to the heart. Plaque can also become weak and break off within a coronary artery and cause a sudden blockage. Other less common causes of CAD include: ??? A blood clot or a piece of a blood clot or other substance that blocks the flow of blood in a coronary artery (embolism). ??? A tearing of the artery (spontaneous coronary artery dissection). ??? An enlargement of an artery (aneurysm). ??? Inflammation (vasculitis) in the artery wall. What increases the risk? The following factors may make you more likely to develop this condition: ??? Age. Men over age 45 are at a greater risk of CAD. ??? Family history of CAD. ??? Gender. Men often develop CAD earlier in life than women. ??? High blood pressure (hypertension). ??? Diabetes. ??? High cholesterol levels. ??? Tobacco use. ??? Excessive alcohol use. ??? Lack of exercise. ??? A diet high in saturated and trans fats, such as fried food and processed meat. Other possible risk factors include: ??? High stress levels. ??? Depression. ??? Obesity. ??? Sleep apnea. What are the signs or symptoms? Many people do not have any symptoms during the early stages of CAD. As the condition progresses, symptoms may include: ??? Chest pain (angina). The pain can: ? Feel like crushing or squeezing, or like a tightness, pressure, fullness, or heaviness in the chest. ? Last more than a few minutes or can stop and recur. The pain tends to get worse with exercise or stress and to fade with rest. ??? Pain in the arms, neck, jaw, ear, or back. ??? Unexplained heartburn or indigestion. ??? Shortness of breath. ??? Nausea or vomiting. ??? Sudden light-headedness. ??? Sudden cold sweats. ??? Fluttering or fast heartbeat (palpitations). How is this diagnosed? This condition is diagnosed based on: ??? Your family and medical history. ??? A physical exam. ??? Tests, including: ? A test to check the electrical signals in your heart (electrocardiogram). ? Exercise stress test. This looks for signs of blockage when the heart is stressed with exercise, such as running on a treadmill. ? Pharmacologic stress test. This test looks for signs of blockage when the heart is being stressed with a medicine. ? Blood tests. ? Coronary angiogram. This is a procedure to look at the coronary arteries to see if there is any blockage. During this test, a dye is injected into your arteries so they appear on an X-ray. ? Coronary artery CT scan. This CT scan helps detect calcium deposits in your coronary arteries. Calcium deposits are an indicator of CAD. ? A test that uses sound waves to take a picture of your heart (echocardiogram). ? Chest X-ray. How is this treated? This condition may be treated by: ??? Healthy lifestyle changes to reduce risk factors. ??? Medicines such as: ? Antiplatelet medicines and blood-thinning medicines, such as aspirin. These help to prevent blood clots. ? Nitroglycerin. ? Blood pressure medicines. ? Cholesterol-lowering medicine. ??? Coronary angioplasty and stenting. During this procedure, a thin, flexible tube is inserted through a blood vessel and into a blocked artery. A balloon or similar device on the end of the tube is inflated to open up the artery. In some cases, a small, mesh tube (stent) is inserted into the artery to keep it open. ??? Coronary artery bypass surgery. During this surgery, veins or arteries from other parts of the body are used to create a bypass around the blockage and allow blood to reach your heart. Follow these instructions at home: Medicines ??? Take seio-bzg-yookyah and prescription medicines only as told by your health care provider. ??? Do not take the following medicines unless your health care provider approves: ? NSAIDs, such as ibuprofen, naproxen, or celecoxib. ? Vitamin supplements that contain vitamin A, vitamin E, or both. Lifestyle ??? Follow an exercise program approved by your health care provider. Aim for 150 minutes of moderate exercise or 75 minutes of vigorous exercise each week. ??? Maintain a healthy weight or lose weight as approved by your health care provider. ??? Learn to manage stress or try to limit your stress. Ask your health care provider for suggestions if you need help. ??? Get screened for depression and seek treatment, if needed. ??? Do not use any products that contain nicotine or tobacco, such as cigarettes, e-cigarettes, and chewing tobacco. If you need help quitting, ask your health care provider. ??? Do not use illegal drugs. Eating and drinking ??? Follow a heart-healthy diet. A dietitian can help educate you about healthy food options and changes. In general, eat plenty of fruits and vegetables, lean meats, and whole grains. ??? Avoid foods high in: ? Sugar. ? Salt (sodium). ? Saturated fat, such as processed or fatty meat. ? Trans fat, such as fried foods. ??? Use healthy cooking methods such as roasting, grilling, broiling, baking, poaching, steaming, or stir-frying. ??? Do not drink alcohol if your health care provider tells you not to drink. ??? If you drink alcohol: ? Limit how much you have to 0???2 drinks per day. ? Be aware of how much alcohol is in your drink. In the [place] one drink equals one 12 oz bottle of beer (355 mL), one 5 oz glass of wine (148 mL), or one 1?? oz glass of hard liquor (44 mL). General instructions ??? Manage any other health conditions, such as hypertension and diabetes. These conditions affect your heart. ??? Your health care provider may ask you to monitor your blood pressure. Ideally, your blood pressure should be below 130/80. ??? Keep all follow-up visits as told by your health care provider. This is important. Get help right away if: ??? You have pain in your chest, neck, ear, arm, jaw, stomach, or back that: ? Lasts more than a few minutes. ? Is recurring. ? Is not relieved by taking medicine under your tongue (sublingual nitroglycerin). ??? You have profuse sweating without cause. ??? You have unexplained: ? Heartburn or indigestion. ? Shortness of breath or difficulty breathing. ? Fluttering or fast heartbeat (palpitations). ? Nausea or vomiting. ? Fatigue. ? Feelings of nervousness or anxiety. ? Weakness. ? Diarrhea. ??? You have sudden light-headedness or dizziness. ??? You faint. ??? You feel like hurting yourself or think about taking your own life. These symptoms may represent a serious problem that is an emergency. Do not wait to see if the symptoms will go away. Get medical help right away. Call your local emergency services (911 in the [place] Do not drive yourself to the hospital. Summary ??? Coronary artery disease (CAD) is a condition in which the arteries that lead to the heart (coronary arteries) become narrow or blocked. The narrowing or blockage can lead to a heart attack. ??? Many people do not have any symptoms during the early stages of CAD. ??? CAD can be treated with lifestyle changes, medicines, surgery, or a combination of these treatments. This information is not intended to replace advice given to you by your health care provider. Make sure you discuss any questions you have with your health care provider. Document Revised: 10/13/2018 Document Reviewed: 10/03/2018 [employer] Patient Education ?? 2020 [employer]. Heart-Healthy Eating Plan Many factors influence your heart (coronary) health, including eating and exercise habits. Coronary risk increases with abnormal blood fat (lipid) levels. Heart-healthy meal planning includes limiting unhealthy fats, increasing healthy fats, and making other diet and lifestyle changes. What is my plan? Your health care provider may recommend that you: ??? Limit your fat intake to % or less of your total calories each day. ??? Limit your saturated fat intake to % or less of your total calories each day. ??? Limit the amount of cholesterol in your diet to less than mg per day. What are tips for following this plan? Cooking Cook foods using methods other than frying. Baking, boiling, grilling, and broiling are all good options. Other ways to reduce fat include: ??? Removing the skin from poultry. ??? Removing all visible fats from meats. ??? Steaming vegetables in water or broth. Meal planning ??? At meals, imagine dividing your plate into fourths: ? Fill one-half of your plate with vegetables and green salads. ? Fill one-fourth of your plate with whole grains. ? Fill one-fourth of your plate with lean protein foods. ??? Eat 4???5 servings of vegetables per day. One serving equals 1 cup raw or cooked vegetable, or 2 cups raw leafy greens. ??? Eat 4???5 servings of fruit per day. One serving equals 1 medium whole fruit, ?? cup dried fruit, ?? cup fresh, frozen, or canned fruit, or ?? cup 100% fruit juice. ??? Eat more foods that contain soluble fiber. Examples include apples, broccoli, carrots, beans, peas, and barley. Aim to get 25???30 g of fiber per day. ??? Increase your consumption of legumes, nuts, and seeds to 4???5 servings per week. One serving of dried beans or legumes equals ?? cup cooked, 1 serving of nuts is ?? cup, and 1 serving of seeds equals 1 tablespoon. Fats ??? Choose healthy fats more often. Choose monounsaturated and polyunsaturated fats, such as olive and canola oils, flaxseeds, walnuts, almonds, and seeds. ??? Eat more omega-3 fats. Choose salmon, mackerel, sardines, tuna, flaxseed oil, and ground flaxseeds. Aim to eat fish at least 2 times each week. ??? Check food labels carefully to identify foods with trans fats or high amounts of saturated fat. ??? Limit saturated fats. These are found in animal products, such as meats, butter, and cream. Plant sources of saturated fats include palm oil, palm kernel oil, and coconut oil. ??? Avoid foods with partially hydrogenated oils in them. These contain trans fats. Examples are stick margarine, some tub margarines, cookies, crackers, and other baked goods. ??? Avoid fried foods. General information ??? Eat more home-cooked food and less restaurant, buffet, and fast food. ??? Limit or avoid alcohol. ??? Limit foods that are high in starch and sugar. ??? Lose weight if you are overweight. Losing just 5???10% of your body weight can help your overall health and prevent diseases such as diabetes and heart disease. ??? Monitor your salt (sodium) intake, especially if you have high blood pressure. Talk with your health care provider about your sodium intake. ??? Try to incorporate more vegetarian meals weekly. What foods can I eat? Fruits All fresh, canned (in natural juice), or frozen fruits. Vegetables Fresh or frozen vegetables (raw, steamed, roasted, or grilled). Green salads. Grains Most grains. Choose whole wheat and whole grains most of the time. Rice and pasta, including brown rice and pastas made with whole wheat. Meats and other proteins Lean, well-trimmed beef, veal, pork, and rodriguez. Chicken and turkey without skin. All fish and shellfish. Wild duck, rabbit, pheasant, and venison. Egg whites or low-cholesterol egg substitutes. Dried beans, peas, lentils, and tofu. Seeds and most nuts. Dairy Low-fat or nonfat cheeses, including ricotta and mozzarella. Skim or 1% milk (liquid, powdered, or evaporated). Buttermilk made with low-fat milk. Nonfat or low-fat yogurt. Fats and oils Non-hydrogenated (trans-free) margarines. Vegetable oils, including soybean, sesame, sunflower, olive, peanut, safflower, corn, canola, and cottonseed. Salad dressings or mayonnaise made with a vegetable oil. Beverages Water (mineral or sparkling). Coffee and tea. Diet carbonated beverages. Sweets and desserts Sherbet, gelatin, and fruit ice. Small amounts of dark chocolate. Limit all sweets and desserts. Seasonings and condiments All seasonings and condiments. The items listed above may not be a complete list of foods and beverages you can eat. Contact a dietitian for more options. What foods are not recommended? Fruits Canned fruit in heavy syrup. Fruit in cream or butter sauce. Fried fruit. Limit coconut. Vegetables Vegetables cooked in cheese, cream, or butter sauce. Fried vegetables. Grains Breads made with saturated or trans fats, oils, or whole milk. Croissants. Sweet rolls. Donuts. High-fat crackers, such as cheese crackers. Meats and other proteins Fatty meats, such as hot dogs, ribs, sausage, wagner, rib-eye roast or steak. High-fat deli meats, such as salami and bologna. Caviar. Domestic duck and goose. Organ meats, such as liver. Dairy Cream, sour cream, cream cheese, and creamed cottage cheese. Whole milk cheeses. Whole or 2% milk (liquid, evaporated, or condensed). Whole buttermilk. Cream sauce or high-fat cheese sauce. Whole-milk yogurt. Fats and oils Meat fat, or shortening. Henderson butter, hydrogenated oils, palm oil, coconut oil, palm kernel oil. Solid fats and shortenings, including wagner fat, salt pork, lard, and butter. Nondairy cream substitutes. Salad dressings with cheese or sour cream. Beverages Regular sodas and any drinks with added sugar. Sweets and desserts Frosting. Pudding. Cookies. Cakes. Pies. Milk chocolate or white chocolate. Buttered syrups. Full-fat ice cream or ice cream drinks. The items listed above may not be a complete list of foods and beverages to avoid. Contact a dietitian for more information. Summary ??? Heart-healthy meal planning includes limiting unhealthy fats, increasing healthy fats, and making other diet and lifestyle changes. ??? Lose weight if you are overweight. Losing just 5???10% of your body weight can help your overall health and prevent diseases such as diabetes and heart disease. ??? Focus on eating a balance of foods, including fruits and vegetables, low-fat or nonfat dairy, lean protein, nuts and legumes, whole grains, and heart-healthy oils and fats. This information is not intended to replace advice given to you by your health care provider. Make sure you discuss any questions you have with your health care provider. Document Revised: 03/03/2018 Document Reviewed: 03/03/2018 [employer] Patient Education ?? 2020 [employer] FAQ ??? Patient COVID-19 testing Why do I need a COVID-19 test in the hospital? We are testing patients as part of an overall effort to ensure the safety of our patients, staff and providers, and to limit the spread of the novel coronavirus throughout our community. What happens if I test positive for COVID-19? Any scheduled elective procedure will be postponed and treatment for the coronavirus will follow the protocol that is currently in place. If you are admitted to the hospital, we will use droplet precautions for patients who test positive for COVID-19. If I???m a patient, should I wear a mask? Yes. When you are in your room alone, you may remove your mask. When anyone enters your room, you should put your mask back on. Will I be allowed to have visitors if I am admitted to the hospital with COVID-19? As part of the standard care for COVID-19 patients, visitors will not be allowed to protect them from potential exposure to the novel coronavirus. If you have a health care support person with you during a pending test and the test comes back positive, your visitor will be asked to leave and follow up with their primary care provider. Public health may reach out to them to complete contact tracing. Will my status as COVID-19 positive be reported? Because COVID-19 is a public health threat, all positive cases are reported through the local health department and the [place] Department for Public [facility]. Those organizations are responsible for monitoring public health threats. What is contact tracing? The public health departments at the state and local levels use contact tracing to prevent the spread of infectious disease. They will work to identify people who have COVID-19 and their contacts who may have been exposed. What does contact tracing involve? Typically, a contact tracer will interview patients with COVID-19 to identify everyone with whom they have had close contact during the time they may have been infectious and then notify those contacts of potential exposure and refer them for testing. They may monitor the contacts for symptoms of COVID-19 and connect the contacts with services they may need during a recommended self-quarantine period. The patient???s name is not revealed to anyone during the contact tracing interviews, even if a contact asks. Who would be considered a ???close contact?? ? According to the CDC, a close contact is defined as someone who was within 6 feet of an infected person for at least 15 minutes, starting from 48 hours before the person began feeling sick until the time the patient was isolated. What can a close contact expect during this process? A contact tracer from the health department will contact that person to inform them they have been exposed to COVID-19. If that happens, the contact should self-quarantine for 14 days, starting from the last date of possible exposure, monitor their health, wear a face covering and maintain social distancing ??? at least 6 feet from others at all times. Should a close contact seek medical care? Close contacts should take their temperature twice a day, watch for COVID-19 symptoms and notify the health department if they develop symptoms. They should also notify people with whom they have had recent close contact if they become ill. They should seek medical care if symptoms worsen or become severe, including trouble breathing, persistent pain or pressure in the chest, confusion, inability to wait or stay awake, or bluish lips or face. Steps to Help Prevent the Spread of COVID-19 if You Are Sick In all cases, follow the guidance of your health care provider and local health department. Your local health department determines the length of time for quarantine and will notify you with detailed information. Monitor your symptoms. Common symptoms of COVID-19 include fever, fatigue, diarrhea/vomiting, loss of taste and smell, and cough. Trouble breathing is a more serious symptom that means you should get medical attention. If you develop emergency warning signs for COVID-19 get medical attention immediately. Emergency warning signs include*: ??? Trouble breathing ??? Persistent pain or pressure in the chest ??? New confusion or inability to arouse ??? Bluish lips or face *This list is not all inclusive. Please consult your medical provider for any other symptoms that are severe or concerning. Call 911 if you have a medical emergency. If you have a medical emergency and need to call 911, notify the cloth doubling machine operator that you have, or think you might have, COVID-19. If possible, put on a facemask before medical help arrives. Stay home except to get medical care. ??? Stay home: Most people with COVID-19 have mild illness and can recover at home without medical care. Do not leave your home, except to get medical care. Do not visit public areas. ??? Stay in touch with your doctor. Call before you get medical care. Be sure to get care if you have trouble breathing, or have any other emergency warning signs, or if you think it is an emergency. Separate yourself from other people in your home; this is known as home isolation. ??? Stay away from others: As much as possible, stay away from others. You should stay in a specific ???sick room?? if possible, and away from other people in your home. Use a separate bathroom, if available. Call ahead before visiting your doctor. ??? Call ahead: Many medical visits for routine care are being postponed or done by phone or telemedicine. If you have a medical appointment that cannot be postponed, call your doctor's office, and tell them you have or may have COVID-19. This will help the office protect themselves and other patients. If you are sick, wear a facemask in the following situations, if available. ??? If you are sick: You should wear a facemask, if available, when you are around other people (including before you enter a health care provider???s office). ??? If you are caring for others: If the person who is sick is not able to wear a facemask (for example, because it causes trouble breathing), then as their caregiver, you should wear a facemask when in the same room with them. Visitors, other than caregivers, are not recommended. Cover your coughs and sneezes. ??? Cover: Cover your mouth and nose with a tissue when you cough or sneeze. ??? Dispose: Throw used tissues into a lined trash can. ??? Wash hands: Immediately wash your hands with soap and water for at least 20 seconds. If soap and water are not available, clean your hands with an alcohol-based hand bottle line worker that contains at least 60% alcohol. Clean your hands often. ??? Wash hands: Wash your hands often with soap and water for at least 20 seconds when visibly dirty. This is especially important after blowing your nose, coughing or sneezing, and going to the bathroom, and before eating or preparing food. ??? Hand bottle line worker: Use an alcohol-based hand bottle line worker with at least 60% alcohol, covering all surfaces of your hands and rubbing them together until they feel dry. ??? Avoid touching: Avoid touching your eyes, nose and mouth with unwashed hands. Avoid sharing personal household items. ??? Do not share: Do not share dishes, drinking glasses, cups, eating utensils, towels or bedding with other people in your home. ??? Wash thoroughly after use: After using these items, wash them thoroughly with soap and water or put them in the purchasing analyst. Clean all high-touch surfaces every day. Clean high-touch surfaces in your isolation area (???sick room?? and bathroom) every day; let a caregiver clean and disinfect high-touch surfaces in other areas of the home. ??? Clean and disinfect: Routinely clean high-touch surfaces in your ???sick room?? and bathroom. Let someone else clean and disinfect surfaces in common areas, but not your bedroom and bathroom. ? If a caregiver or other person needs to clean and disinfect a sick person???s bedroom or bathroom, they should do so on an as-needed basis. The caregiver/other person should wear a mask and wait as long as possible after the sick person has used the bathroom. ? High-touch surfaces include phones, remote controls, counters, tabletops, doorknobs, bathroom fixtures, toilets, keyboards, tablets and bedside tables. ??? Clean and disinfect areas that may have blood, stool, or body fluids on them. ??? Household grade teacher and disinfectants: Clean the area or item with soap and water or another detergent if it is dirty. Then, use a household disinfectant. ??? Be sure to follow the instructions on the label to ensure safe and effective use of the product. Many products recommend keeping the surface wet for several minutes to ensure germs are killed. Many also recommend precautions such as wearing gloves and making sure you have good ventilation during use of the product. ??? Most EPA-registered household disinfectants should be effective. A full list of disinfectants can be found here: https://www.epa.gov/pesticide-registration/opcl-g-ydtvaflijgjxh-srf-oqdyzqi-nx rs-cov-2 What you need to know about coronavirus disease 2019 (COVID-19) Missing Image - the embedded image is not supported https://www.cdc.gov/coronavirus/2019-ncov/ HYPERLINK https://www.cdc.gov/coronavirus/2019-ncov/cases-in-us.html cases-in-us.html. How does COVID-19 spread? The virus that causes COVID-19 probably emerged from an animal source, but now it seems to be spreading from person to person. It???s important to note that drrasq-gm-rypyhr spread can happen on a continuum. Some diseases are highly contagious (like measles), while other diseases are less so. At this time, it???s unclear how easily or sustainably the virus that causes COVID-19 is spreading between people. Learn what is known about the spread of newly emerged coronaviruses at HYPERLINK https://www.cdc.gov/coronavirus/2019-ncov/about/transmission.html https://www.cdc.gov/coronavirus/ 2019ncov/about/ HYPERLINK https://www.cdc.gov/coronavirus/2019-ncov/about/transmission.html transmission.html. What are the symptoms of COVID-19? Patients with COVID-19 have had mild to severe respiratory illness with symptoms of fever cough shortness of breath What are severe complications from this virus? Many patients have pneumonia in both lungs. How can I help protect myself? The best way to prevent infection is to avoid being exposed to the virus that causes COVID-19. There are simple everyday preventive actions to help prevent the spread of respiratory viruses. These include Avoid close contact with people who are sick. Avoid touching your eyes, nose, and mouth with unwashed hands. Wash your hands often with soap and water for at least 20 seconds. Use an alcohol-based hand bottle line worker that contains at least 60% alcohol if soap and water are not available. If you are sick, to keep from spreading respiratory illness to others, you should Stay home when you are sick. Cover your cough or sneeze with a tissue, then throw the tissue in the trash. Clean and disinfect frequently touched objects and surfaces. What should I do if I recently traveled outside of the [place]? If you were outside the [place] within the past 14 days and feel sick with fever, cough, or difficulty breathing, you should seek medical care. Call the office of your health care provider before you go, and tell them about your travel and your symptoms. They will give you instructions on how to get care without exposing other people to your illness. While sick, avoid contact with people, don???t go out and delay any travel to reduce the possibility of spreading illness to others. Is there a vaccine? There is currently no vaccine to protect against COVID-19. The best way to prevent infection is to avoid being exposed to the virus that causes COVID-19. Is there a treatment? There is no specific antiviral treatment for COVID-19. People with COVID-19 can seek medical care to help relieve symptoms. For more information: HYPERLINK http://www.cdc.gov/COVID19 www.cdc.gov/COVID19 DISCLAIMER: COVID-19 information is rapidly changing and documents will be updated accordingly. April 13, 2019 Emergency Awareness and Preventative Care STROKE is an EMERGENCY Every Minute Counts Act FAST and Check for these signs: FACE Does the face look uneven? ARM Does one arm drift down? SPEECH Does their speech sound strange? TIME Call at any sign of stroke Stroke Risk Factors Atrial Fibrillation (irregular heartbeat) Diabetes Family history of stroke Heart Disease Heavy alcohol use High Blood Pressure High Cholesterol Physical inactivity and obesity Smoking Cigarette Smoking The facts are clear, cigarette smoking will shorten your life. Smoking can cause many illnesses along the way. As a healthcare provider, we recommend that you stop smoking. Assistance with quitting is available by contacting 0-121-AIBH-NOW. This is a free resource providing counseling, support, and referral. Or you may contact your personal physician. National Suicide Prevention Lifeline: The National Suicide Prevention Lifeline is a national network of local crisis centers that provides free and confidential emotional support to people in suicidal crisis or emotional distress 24 hours a day, 7 days a week. Don't Wait! Stop a Heart Attack Before it Starts What is a heart attack? A heart attack is damage or to a part of the heart from severely decreased or lack of blood flow to the heart. Over time, arteries can become narrow from the buildup of fat and cholesterol, which is called plaque. The plaque can rupture causing a blood clot to form. When the blood clot forms, the artery can become severely narrowed or completely blocked, causing a heart attack. Heart attack is the leading cause of in the [place]. 85% of muscle damage occurs within the first 2 hours. Delay in the recognition of heart attack symptoms increases the chances of . Know the early symptoms of a heart attack: Nausea Feeling of fullness in chest Jaw Pain Pain that travels down one or both arms Fatigue/being tired Anxiety Back Pain Chest pressure, squeezing, or discomfort Shortness of breath Sweating, or a cold sweat Feeling of impending doom There are unusual signs of a heart attack, too! Women, the elderly, and diabetics may present with atypical symptoms: Fainting/dizziness Weakness Confusion Risk Factors for a Heart Attack Some heart disease risk factors, such as age and family history, cannot be changed. Others, like smoking and lack of exercise, can be changed. Smoking High Cholesterol High Blood Pressure Family History Obesity Age Gender (Males are at higher risk) Lack of Exercise Diabetes Diet Stress Excessive Alcohol Intake If you or someone you know is experiencing the signs and symptoms of a heart attack, DON???T DELAY. Call immediately and seek help. If someone collapses, perform CPR! Do not attempt to drive if you are having symptoms of heart attack. Hands-Only CPR Why Hands-Only CPR? Hands-Only CPR has been shown to be as effective as conventional CPR for cardiac arrests that occur outside of a hospital. Survival depends on immediately receiving CPR from someone nearby. How do you perform Hands-Only CPR? There are two easy steps: Call if you see a teen or adult collapse Push hard and fast in the center of the chest at a beat of 100 beats per minute. Save a life! 4 WAYS TO GET AHEAD OF SEPSIS SEPSIS is a MEDICAL EMERGENCY. Time matters! Infections put you and your family at risk for a life-threatening condition called sepsis. Sepsis is the body's extreme response to an infection. It is life-threatening, and without timely treatment, sepsis can rapidly lead to tissue damage, organ failure, and . Sepsis happens when an infection you already have-in your skin, lungs, urinary tract or somewhere else-triggers a chain reaction throughout your body. 1 PREVENT INFECTIONS Take good care of chronic conditions. Talk to your doctor about getting the recommended vaccines. 2 PRACTICE GOOD HYGIENE Wash your hands frequently. Keep cuts or open sores clean and covered until they are healed. 3 KNOW THE SYMPTOMS Confusion or disorientation Shortness of breath High heart rate Fever, shivering, or feeling very cold Extreme pain or discomfort Clammy or sweaty skin 4 ACT FAST Get medical care IMMEDIATELY if you suspect sepsis or if you have an infection that is not getting better or is getting worse. To learn more about sepsis and how to prevent infections, visit www.cdc.gov/sepsis. Test Results Laboratory or Other Results This Visit (last charted value for your 08/18/2020 visit) Hematology 08/18/2020 10:35 AM Platelet Count: 116 K/uL -- Normal range between ( 163 and 369 ) Microbiology 08/15/2020 10:00 AM SARS-CoV-2 (COVID19 PCR): Negative Patient Name:SOLEDAD DOWD I have received and understand this information and was given the opportunity to ask questions. 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
--- OUTSIDE RECORDS SUMMARY | 2024-08-13 12:43 | XMS_ITS | Encounter Summary ---
Author Organization [facility] Address [address] [place] [address] Support Name Relationship Address Phone Stepan Gold Personal Relationship [address] [place] [address] Mi Gold Personal Relationship Unknown Rosalind Mai Personal Relationship Unknown Vivi Ward Personal Relationship Unknown Care Team Providers Care Manager Rental Name Role Phone Yehuda Barger MD Primary Care Provider [phone] Milton Crum DO Primary Care Provider Miky Benton MD Primary Care Provider [phone] Provider, Historical Unavailable Unavailable Willi Templeton MD Unavailable [phone] María Andre MD Unavailable [phone] Selene Rodriguez FILLER ROOM ATTENDANT Unavailable Mariah Flowers FILLER ROOM ATTENDANT Unavailable [phone] Neyda Beltran MD Unavailable [phone] Ryanne Roblero MD Unavailable Unavailable Mi Martin APRN Unavailable [phone] Elijah Serra DO Primary Care Provider [phone] Micha [place] MD Unavailable Encounter Details Date Type Department Care Team (Late st Contact Info) Description 04/02/2003 Historical Encounter Global Horacio Sherman MD [address] [place] [address] Social History Tobacco Use Types Packs/Day Years [...] Description 11/06/2024 11:00 AM EDT Office Visit [facility] [address], [place], [address] [place] [id number] Micha [place] MD [address] [place], [place] [address] Molly Figueroa PA-C [address] [address] [place], [place] [address] documented as of this encounter Visit Diagnoses Not on filedocumented in this encounter Additional Health Concerns Infection Onset Date Last Indicated Resolved Time 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 02/24/2017 02/22/2017 02/22/2017 04/02/2024 9:[address] documented as of this encounter Care Teams Manager Rental Relationship Specialty Start Date End Date Yehuda Barger MD [address] [place] [address] [address] [facility] [address] [place] [address] PCP - General 02/16/09 04/13/23 Milton Crum DO [address] [place] [address] [address] [facility] [address] [place] [address] PCP - General 01/08/09 02/15/09 Miky Louis MD [address] [facility] [place] [address] PCP - General 12/26/07 01/07/09 Elijah Serra DO [address] [place] [address] PCP - General Family Medicine 07/21/23 Provider, Historical 02/16/16 08/25/16 Willi Templeton MD [address] [place] [address] Gastroenterology 02/25/16 María Andre MD 613 [address] [address] [place], [place] [address] Gastroenterology 03/08/16 Selene Rodriguez APRN [address] [place] [address] 203 [place] [address] Gastroenterology 08/23/16 Mariah Flowers APRN [address] [place] [address] [address] [place] [address] Nurse Practitioner 08/26/16 Neyda Beltran MD [address] [place] [address] Nephrology 03/17/17 Ryanne Roblero MD [address] [place] [address] [address] [place] [address] Rheumatology 03/01/18 Mi Martin APRN [address] [place] [address] 102 [place] [id number] Nurse Practitioner Nurse Practitioner 04/16/19 Micha [place] MD [address] [place] [address] [address] [place], [place] [address] Endocrinology 08/06/24 08/06/24 documented as of this encounter
--- OUTSIDE RECORDS SUMMARY | 2024-08-13 12:43 | XMS_ITS | Encounter Summary ---
Author Organization Office Center ([place], [place], [place], [place]) Address [address] [place] [address] Care Team Providers Care Feed Project Engineer Name Role Phone Elijah Serra DO Primary Care Provider [phone] Encounter Details Date Type Department Care Team (Late st Contact Info) Description 08/18/2020 Transcribed Document [facility] [address] [place] [address] ProviderMichael MD [address] [place] [address] Social History Tobacco Use Types [...] Conversion Note - Michael ProviderMD - 08/18/2020 10:24 AM CDT Pre Procedure Adult Entered On: 08/18/2020 10:30 EDT Performed On: 08/18/2020 10:24 EDT by RAMON GRAMAJO RN Height and Weight, Clinical Dosing Height Source : Measured Height Entry Format : [place] Height, Feet : 5 ft(Converted to: 152 cm, 60 Inch) Height, Inches : 9 Inch(Converted to: 0 ft 9 Inch, 22.86 cm) Clinical Height : 175.26 cm Weight Source : Standing scale Weight Entry Format : [place] Clinical Dosing Weight : 97.73 kg Weight, Pounds : 215 lb Weight, Ounces : 0 oz Body Surface Area (BSA) : 2.13 m2 Body Mass Index : 31.8 kg/m2 (HI) [place] Body Weight : 70 kg RAMON GRAMAJO RN - 08/18/2020 10:24 EDT Health Histories Smoking Status : Never (less than 100 in lifetime; none in last 30 days) Smokeless Tobacco Status : Never RAMON GRAMAJO RN - 08/18/2020 10:24 EDT Social History (As Of: 08/18/2020 10:30:21 EDT) Tobacco: Never (less than 100 in lifetime) Smoking Status. Never Smokeless Tobacco Status. (Last Updated: 08/18/2020 10:24:32 EDT by RAMON GRAMAJO RN) Alcohol: Alcohol Use History No. (Last Updated: 08/18/2020 10:24:38 EDT by RAMON GRAMAJO RN) Substance Abuse: Drug Use Hx: No. Use in Last 12 Months: No. (Last Updated: 08/18/2020 10:24:45 EDT by RAMON GRAMAJO RN) Infectious Disease History Has the patient ever been tested for COVID-19? : Yes, Patient stated results Negative Date of COVID-19 test known? : Yes Date of COVID-19 Test : 08/15/2020 EDT Does patient have symptoms of COVID-19? : No COVID19 Screening : No Experiencing Infectious Disease Symptoms : No symptoms Physical contact outside [place] in the last 30 days : No Infectious Disease History : Chicken pox/Shingles, Influenza, MRSA Tuberculosis Symptoms : Fatigue RAMON GRAMAJO RN - 08/18/2020 10:24 EDT COVID19 PreProcedure Screening Is this an Emergent or Add on Procedure? : No Date PreProcedure COVID-19 test known? : Yes Date of PreProcedure COVID-19 : 08/15/2020 EDT Has patient been isolated since the test : Yes Exposed to COVID19 symptoms since test? : No RAMON GRAMAJO RN - 08/18/2020 10:24 EDT Anesthesia/Transfusion History Family History of Anesthesia Reaction : Prior transfusion without reaction Blood Transfusion Acceptable to Patient : Yes Transfusion History : Prior anesthesia reaction Type of Anesthesia Reaction : Excessive nausea/vomiting Family History of Anesthesia Reaction : None RAMON GRAMAJO RN - 08/18/2020 10:24 EDT Functional Assessment Living Situation : Home Patient Lives With : Spouse Current Home Treatments : Blood glucose monitoring RAMON GRAMAJO RN - 08/18/2020 10:24 EDT [place] Suicide Severity Rating Scale (C-SSRS) CSSRS Past Month Wish to be : No CSSRS Past Month Suicidal Thoughts : No CSSRS Lifetime Suicide Behavior : No Suicide Severity Rating Score : 0 Suicide Severity Rating : No Additional Care Required at this time RAMON GRAMAJO RN - 08/18/2020 10:24 EDT Psychosocial History Currently in Unsafe Situation : No RAMON GRAMAJO RN - 08/18/2020 10:24 EDT Advance Directive Patient has Advance Directive *Q : Yes, Advance Directive not with the patient Advance Directive Type : Living will Copy Advance Directive Verified/on Chart : No RAMON GRAMAJO RN - 08/18/2020 10:24 EDT Teaching/Learning Assessment Barriers To Learning : None evident Individuals Taught : Patient, Spouse Readiness to Learn : Cooperative Readiness to Learn : Demonstration, Explanation Learning Style Preferences Patient : Demonstration, Verbal explanation Learning Style Preferences Family : Demonstration, Verbal explanation RAMON GRAMAJO RN - 08/18/2020 10:24 EDT Education Topics, Periop Preadmission Perioperative Education [place] : Verbalizes understanding Infection Control : Verbalizes understanding IV's : Verbalizes understanding NPO Status/Directions : Verbalizes understanding Pain Management : Verbalizes understanding Postoperative Care Preparations : Verbalizes understanding Preprocedure Preparations : Verbalizes understanding Preprocedure Tests/Labs : Verbalizes understanding RAMON GRAMAJO RN - 08/18/2020 10:24 EDT General Info Want Family/Rep/Phys Notified of Admit : No Emergency Contact #1 : Stepan Gold Emergency Contact #1 Emergency Contact #1 Relationship : Emergency Contact #2 : Vivi Ward Emergency Contact #2 Emergency Contact #2 [facility] Primary Language : [place] Citizen Communication Barrier : None Switchboard Operator Needed : RAMON Ugalde RN - 08/18/2020 10:24 EDT Sleep Apnea Risk Assmt Hx of Obstructive Sleep Apnea Diagnosis : No Snore Loudly : Yes Tired, Fatigued, or Sleepy During Day : Yes Observed Stopping Breathing During Sleep : Yes Have/Are Being Treated for Hypertension : Yes BMI Greater Than 35 kg/m2 : No Age over 50 Years Old : Yes Neck Circumference Greater Than 40 cm : No Gender Male : Yes STOP-BANG Sleep Apnea Risk Level Score : 6 RAMON GRAMAJO RN - 08/18/2020 10:24 EDT Casey Scale Casey Sensory Perception : No impairment Casey Moisture : Rarely moist Casey Activity : Walks occasionally Casey Mobility : No limitation Casey Nutrition : Adequate Casey Friction and Shear : No apparent problem Casey Score : 21 RAMON GRAMAJO RN - 08/18/2020 10:24 EDT Pain Assessment Pain Assessment : Initial assessment Pain Scale Used : 0-10 Scale RAMON GRAMAJO RN - 08/18/2020 10:24 EDT Fall Risk Scales ABC Fall Injury Risk : Moderate to high injury risk ABCs Fall Injury Risk Identification : Age RAMON GRAMAJO RN - 08/18/2020 17:51 EDT BILL Hx Falls Immediate/Within 3 Months : Yes Bill Secondary Diagnosis : No BILL Use of Ambulatory Aid : Bed rest/Nurse assist BILL IV Therapy or IV Access : Yes Bill Gait/Transferring : Weak Bill Mental Status : Oriented to own ability Bill Fall Risk Score : 55 BILL Fall Scale Risk Level : 46 or > High Risk [place] Fall Interventions : Adequate lighting, Assistive devices within reach, Bed in low position, Call device within reach, Fall prevention handout/education per facility policy, Hourly comfort/safety rounds, Non-slip footwear, Personal items within reach, Reinforced to call for assistance before getting out of bed, Room free of clutter/spills, Upper side-rails up, Wheels locked, Wires/Cords secured RAMON GRAMAJO RN - 08/18/2020 10:24 EDT Valuables and Belongings Valuables and Belongings : Clothing Clothing : Common streetwear Clothing Disposition : Bedside RAMON GRAMAJO RN - 08/18/2020 10:24 EDT Pain Scale Intensity : 0 RAMON GRAMAJO RN - 08/18/2020 10:24 EDT Image 4 - Images currently included in the form version of this document have not been included in the text rendition version of the form. documented in this encounter Plan of Treatment Not on file documented as of this encounter Visit Diagnoses Not on filedocumented in this encounter Care Teams Feed Project Engineer Relationship Specialty Start Date End Date Elijah Serra, DO [address] [facility] 1ST [place] [address] PCP - General Family Medicine 03/11/23 documented as of this encounter
--- OUTSIDE RECORDS SUMMARY | 2024-08-13 12:43 | XMS_ITS | Encounter Summary ---
Author Organization [facility] Address [address] [place] [address] Support Name Relationship Address Phone Stepan Gold Personal Relationship [address] [place] [address] Mi Gold Personal Relationship Unknown Rosalind Mai Personal Relationship Unknown [phone] Vivi Ward Personal Relationship Unknown [phone] Care Team Providers Care Dry Cell Assembly Machine Tender Name Role Phone Yehuda Barger MD Primary Care Provider [phone] Milton Crum DO Primary Care Provider Miky Benton MD Primary Care Provider [phone] Provider, Historical Unavailable Unavailable Willi Templeton MD Unavailable [phone] María Andre MD Unavailable [phone] Selene Rodriguez TRAFFIC ANALYSIS TECHNICIAN Unavailable [phone] Mariah Flowers TRAFFIC ANALYSIS TECHNICIAN Unavailable [phone] Neyda Beltran MD Unavailable [phone] Ryanne Roblero MD Unavailable Unavailable Mi Martin APRN Unavailable Elijah Serra DO Primary Care Provider [phone] Micha [place] MD Unavailable Encounter Details Date Type Department Care Team (Late st Contact Info) Description 06/13/2003 Historical Encounter Global Yehuda Barger MD [address] [place] [address] Social History Tobacco Use Types Packs/Day Years [...] Description 11/06/2024 11:00 AM EDT Office Visit [facility] Endocrinology [address] [address] [place], [facility] [place], [address] [place] [phone] Micha [place] MD [address] [place] [address] [place] [address] Molly Figueroa PA-C [address] [place] [address] [place] [address] documented as of this encounter Visit Diagnoses Not on filedocumented in this encounter Additional Health Concerns Infection Onset Date Last Indicated Resolved Time 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 02/24/2017 02/22/2017 02/22/2017 04/02/2024 9:[address] documented as of this encounter Care Teams Dry Cell Assembly Machine Tender Relationship Specialty Start Date End Date Yehuda Barger MD [address] [place] [address] PCP - General 02/16/09 04/13/23 Milton Crum DO [address] [place] [address] PCP - General 01/08/09 02/15/09 Miky Louis MD [address] [place] [address] PCP - General 12/26/07 01/07/09 Elijah Serra DO 100 [place] [address] PCP - General Family Medicine 07/21/23 Provider, Historical 02/16/16 08/25/16 Willi [place] MD [address] [facility] [address] [place] [address] Gastroenterology 02/25/16 María Andre MD [address] [place] [address] [address] [place] [address] Gastroenterology 03/08/16 Selene Rodriguez APRN [address] [place] [address] Gastroenterology 08/23/16 Mariah Flowers APRN [address] [place] [address] [address] [place] [address] Nurse Practitioner 08/26/16 Neyda Beltran MD [address] [address] [place] [address] Nephrology 03/17/17 Ryanen Roblero MD [address] [address] [place] [address] Rheumatology 03/01/18 Mi Martin APRN [address] [place] [address] [address] [place] [address] Nurse Practitioner Nurse Practitioner 04/16/19 Micha [place] MD [address] [place] [address] [address] [place] [address] Endocrinology 08/06/24 08/06/24 documented as of this encounter
--- OUTSIDE RECORDS SUMMARY | 2024-08-13 12:43 | XMS_ITS | Encounter Summary ---
Author Organization [facility] Address [address] [place] [address] Support Name Relationship Address Phone Stepan Gold Personal Relationship [address] [place] [address] Mi Gold Personal Relationship Unknown [phone] Rosalind Mai Personal Relationship Unknown + [phone] Vivi Ward Personal Relationship Unknown [phone] Care Team Providers Care Manager Floral Name Role Phone Yehuda Barger MD Primary Care Provider [phone] Milton Crum DO Primary Care Provider Miky Benton MD Primary Care Provider [phone] Provider, Historical Unavailable Unavailable Willi Templeton MD Unavailable [phone] María Andre MD Unavailable [phone] Selene Rodriguez AUTOMOTIVE ELECTRICIAN Unavailable [phone] Mariah Flowers AUTOMOTIVE ELECTRICIAN Unavailable [phone] Neyda Beltran MD Unavailable [phone] Ryanne Roblero MD Unavailable Unavailable Mi Martin APRN Unavailable [phone] Elijah Serra DO Primary Care Provider [phone] Micha [place] MD Unavailable Encounter Details Date Type Department Care Team (Late st Contact Info) Description 04/23/2002 Historical Encounter Ryann Day MD [address] [facility] [address] Social History Tobacco Use Types Packs/Day Years [...] Description 11/06/2024 11:00 AM EDT Office Visit [facility] [address], [facility] [place], [address] [place] [address] Micha [place] MD [address] [place], [place] [address] Molly Figueroa PA-C [address] [place] [address] [address] [place] [address] documented as of this encounter Visit Diagnoses Not on filedocumented in this encounter Additional Health Concerns Infection Onset Date Last Indicated Resolved Time 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 02/24/2017 02/22/2017 02/22/2017 04/02/2024 9:[address] documented as of this encounter Care Teams Manager Floral Relationship Specialty Start Date End Date Yehuda Barger MD [address] [place] [address] [address] [place] [address] PCP - General 02/16/09 04/13/23 Milton Crum DO [address] [place] [address] [place] [address] PCP - General 01/08/09 02/15/09 Miky Louis MD [facility] [place] [address] PCP - General 12/26/07 01/07/09 Elijah Serra DO 100 [place] [address] PCP - General Family Medicine 07/21/23 Provider, Historical 02/16/16 08/25/16 Willi [place] MD [address] [place] [address] Gastroenterology 02/25/16 María Andre MD [address] [address] [place] [address] Gastroenterology 03/08/16 Selene Rodriguez APRN [address] [place] [address] 203 [place] [address] Gastroenterology 08/23/16 Mariah Flowers APRN [address] [place] [address] [address] [place] [address] Nurse Practitioner 08/26/16 Neyda Beltran MD [address] [address] [place] [address] Nephrology 03/17/17 Ryanne Roblero MD [address] [place] [address] Rheumatology 03/01/18 Mi Martin APRN [address] [place] [address] 102 [place] [phone] Nurse Practitioner Nurse Practitioner 04/16/19 Micha [place] MD [address] [place] [address] [address] [place] [address] Endocrinology 08/06/24 08/06/24 documented as of this encounter
--- OUTSIDE RECORDS SUMMARY | 2024-08-13 12:43 | XMS_ITS | Encounter Summary ---
Author Organization [facility] Address [address] [place] [address] Support Name Relationship Address Phone Stepan Gold Personal Relationship [address] [place] [address] Mi Gold Personal Relationship Unknown Rosalind Mai Personal Relationship Unknown [phone] Vivi Ward Personal Relationship Unknown Care Team Providers Care Trimmer Climber Name Role Phone Yehuda Barger MD Primary Care Provider Willi Templeton MD Unavailable María Andre MD Unavailable Selene Rodriguez GROOVER AND TURNER Unavailable [phone] Mariah Flowers GROOVER AND TURNER Unavailable Neyda Beltran MD Unavailable Ryanne Roblero MD Unavailable Unavailable Mi Martin GROOVER AND TURNER Unavailable [phone] Elijah Serra DO Primary Care Provider [phone] Micha [place] MD Unavailable Reason for Visit * Reason Onset Date Comments Results - Lab 04/10/2017 Encounter Details Date Type Department Care Team (Late st Contact Info) Description 04/10/2017 Telephone [facility] [address] [place] [address] [address] [place] [address] Neyda Beltran MD [address] [place] [id number] Results - Lab Social History Tobacco Use Types Packs/Day Years [...] encounter Miscellaneous Notes * Telephone Encounter - Abimbola Brower LPN - 04/11/2017 1:04 PM EST Patient no available, spoke with Stepan. She expressed verbal understanding, denies any questions or concerns at this time. Abimbola Brower LPN * Telephone Encounter - Neyda Beltran MD - 04/10/2017 9:27 PM EST RENAL NOTE Laboratory results reviewed. Renal function stable. Electrolytes stable. No changes recommended at the present time. Keep appointment the same. Neyda Beltran MD [facility] documented in this encounter Plan of Treatment Upcoming Encounters Date Type Department Care Team (Late st Contact Info) Description 11/06/2024 11:00 AM EDT Office Visit [facility] Endocrinology [address] [place], [address] [place] [phone] Micha [place] MD [address] [place] [address] [place] [address] Molly Figueroa PA-C [address] [place] [address] [place] [address] documented as of this encounter Visit Diagnoses Not on filedocumented in this encounter Additional Health Concerns Infection Onset Date Last Indicated Resolved Time 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 02/24/2017 02/22/2017 02/22/2017 04/02/2024 9:[address] documented as of this encounter Care Teams Trimmer Climber Relationship Specialty Start Date End Date Yehuda Barger MD [address] [place] [address] [address] [place] [address] PCP - General 02/16/09 04/13/23 Elijah Serra DO 100 [place] [address] PCP - General Family Medicine 07/21/23 Willi [place] MD [address] [place] [address] Gastroenterology 02/25/16 María Andre MD [address] [place] [address] Gastroenterology 03/08/16 Selene Rodriguez APRN [address] [place] [address] [address] [place], [place] [address] Gastroenterology 08/23/16 Mariah Flowers APRN [address] [place] [address] Nurse Practitioner 08/26/16 Neyda Beltran MD [address] [place] [address] Nephrology 03/17/17 Ryanne Roblero MD [address] [place] [address] Rheumatology 03/01/18 Mi Martin APRN [address] [place] [address] Nurse Practitioner Nurse Practitioner 04/16/19 Micha [place] MD [address] [place] [address] [address] [place], [place] [id number] Endocrinology 08/06/24 08/06/24 documented as of this encounter
--- OUTSIDE RECORDS SUMMARY | 2024-08-13 12:43 | XMS_ITS | Encounter Summary ---
Author Organization [facility] Address [address] [place] [address] Support Name Relationship Address Phone Stepan Gold Personal Relationship [address] [place] [address] Mi Gold Personal Relationship Unknown Rosalind Mai Personal Relationship Unknown + [phone] Vivi Ward Personal Relationship Unknown [phone] Care Team Providers Care Cna Pct Name Role Phone Yehuda Barger MD Primary Care Provider [phone] Milton Crum DO Primary Care Provider Miky Benton MD Primary Care Provider [phone] Provider, Historical Unavailable Unavailable Willi Templeton MD Unavailable [phone] María Andre MD Unavailable [phone] Selene Rodriguez MEDICAL ASSISTANT OB GYN Unavailable +[phone] Mariah Flowers MEDICAL ASSISTANT OB GYN Unavailable [phone] Neyda Beltran MD Unavailable +[phone] Ryanne Roblero MD Unavailable Unavailable Mi Martin APRN Unavailable [phone] Elijah Serra DO Primary Care Provider [phone] Micha Washington MD Unavailable Encounter Details Date Type Department Care Team (Late st Contact Info) Description 07/17/2002 Historical Encounter Global Horacio Gill MD [address] [place] [address] Social History Tobacco Use Types Packs/Day Years [...] Description 11/06/2024 11:00 AM EDT Office Visit [facility] [place], [facility], [address] [place] [phone] Micha Washington MD [address] [place] [address] [address] [place], [place] [phone] Molly Figueroa PA-C [address] [place] [address] [address] [place] [address] documented as of this encounter Visit Diagnoses Not on filedocumented in this encounter Additional Health Concerns Infection Onset Date Last Indicated Resolved Time 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 02/24/2017 02/22/2017 02/22/2017 04/02/2024 9:[address] documented as of this encounter Care Teams Cna Pct Relationship Specialty Start Date End Date Yehuda Barger MD [address] [place] [address] [place] [address] [place] [address] PCP - General 02/16/09 04/13/23 Milton Crum DO [address] [place] [address] [place] [address] PCP - General 01/08/09 02/15/09 Miky Louis MD [address] [place] [address] PCP - General 12/26/07 01/07/09 Elijah Serra DO 100 [place] [address] PCP - General Family Medicine 07/21/23 Provider, Historical 02/16/16 08/25/16 Willi Templeton MD [address] [place] [address] Gastroenterology 02/25/16 María Andre MD [address] [place] [address] Gastroenterology 03/08/16 Selene Rodriguez APRN [address] [place] [address] 203 [place] [address] Gastroenterology 08/23/16 Mariah Flowers APRN [address] [place] [address] [address] [place] [address] Nurse Practitioner 08/26/16 Neyda Beltran MD [address] [place] [address] Nephrology 03/17/17 Ryanne Roblero MD [address] [place] [address] Rheumatology 03/01/18 Mi Martin APRN [address] [place] [address] 102 [place] [id number] Nurse Practitioner Nurse Practitioner 04/16/19 Micha Washington MD [address] [place] [address] [address] [place] [address] Endocrinology 08/06/24 08/06/24 documented as of this encounter
--- OUTSIDE RECORDS SUMMARY | 2024-08-13 12:43 | XMS_ITS | Encounter Summary ---
Author Organization [facility] Address [address] [place] [address] Support Name Relationship Address Phone Stepan Gold Personal Relationship [address] [place] [address] Mi Gold Personal Relationship Unknown Rosalind Mai Personal Relationship Unknown + [phone] Vivi Ward Personal Relationship Unknown [phone] Care Team Providers Care Rolfer Name Role Phone Yehuda Barger MD Primary Care Provider [phone] Mliton Crum DO Primary Care Provider Miky Benton MD Primary Care Provider [phone] Provider, Historical Unavailable Unavailable Willi Templeton MD Unavailable [phone] María Andre MD Unavailable [phone] Selene Rodriguez LEAD SYSTEMS ENGINEER Unavailable +[phone] Mariah Flowers LEAD SYSTEMS ENGINEER Unavailable [phone] Neyda Beltran MD Unavailable +[phone] Ryanne Roblero MD Unavailable Unavailable Mi Martin APRN Unavailable [phone] Elijah Serra DO Primary Care Provider [phone] Micha Washington MD Unavailable Encounter Details Date Type Department Care Team (Late st Contact Info) Description 02/08/2005 Historical Encounter Global Micha Washington MD [address] [place] [address] Social History Tobacco Use Types Packs/Day Years [...] Description 11/06/2024 11:00 AM EDT Office Visit [facility] [place] [address] [place], [address] [place] [address], [address] [place] [phone] Micha Washington MD [address] [place] [address] [place] [phone] Molly Figueroa PA-C [address] [place] [phone] documented as of this encounter Visit Diagnoses Not on filedocumented in this encounter Additional Health Concerns Infection Onset Date Last Indicated Resolved Time 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 02/24/2017 02/22/2017 02/22/2017 04/02/2024 9:[address] documented as of this encounter Care Teams Rolfer Relationship Specialty Start Date End Date Yehuda Barger MD [address] [place] [address] [place] [address] PCP - General 02/16/09 04/13/23 Milton Crum DO [address] [place] [address] [place] [address] PCP - General 01/08/09 02/15/09 Miky Louis MD [address] [place] [address] PCP - General 12/26/07 01/07/09 Elijah Serra DO 100 [place] [address] PCP - General Family Medicine 07/21/23 Provider, Historical 02/16/16 08/25/16 Willi Templeton MD [address] [facility] [address] [place] [address] Gastroenterology 02/25/16 María Andre MD [address] [place] [address] [address] [place] [address] Gastroenterology 03/08/16 Selene Rodriguez APRN [address] [place] [address] Gastroenterology 08/23/16 Mariah Flowers APRN [address] [place] [address] 510 [place] [address] Nurse Practitioner 08/26/16 Neyda Beltran MD [address] [address] [place] [address] Nephrology 03/17/17 Ryanne Roblero MD [address] [address] [place] [address] Rheumatology 03/01/18 Mi Martin APRN [address] [place] [address] [address] [place] [phone] Nurse Practitioner Nurse Practitioner 04/16/19 Micha Washington MD [address] [place] [address] [address] [place] [address] Endocrinology 08/06/24 08/06/24 documented as of this encounter
--- OUTSIDE RECORDS SUMMARY | 2024-08-13 12:43 | XMS_ITS | Encounter Summary ---
Author Organization [facility] Address [address] [place] [address] Support Name Relationship Address Phone Stepan Gold Personal Relationship [address] [place] [address] Mi Gold Personal Relationship Unknown Rosalind Mai Personal Relationship Unknown + [phone] Vivi Ward Personal Relationship Unknown [phone] Care Team Providers Care Flatbed Driver Name Role Phone Yehuda Barger MD Primary Care Provider [phone] Milton Crum DO Primary Care Provider Miky Benton MD Primary Care Provider [phone] Provider, Historical Unavailable Unavailable Willi Templeton MD Unavailable [phone] María Andre MD Unavailable [phone] Selene Rodriguez CHIEF PHARMACIST Unavailable [phone] Mariah Flowers CHIEF PHARMACIST Unavailable [phone] Neyda Beltran MD Unavailable +[phone] Ryanne Roblero MD Unavailable Unavailable Mi Martin APRN Unavailable [phone] Elijah Serra DO Primary Care Provider [phone] Micha Washington MD Unavailable Encounter Details Date Type Department Care Team (Late st Contact Info) Description 04/25/2002 Historical Encounter Global Rian Randall MD [address] [place] [address] Social History Tobacco Use Types Packs/Day Years [...] Description 11/06/2024 11:00 AM EDT Office Visit [facility] [address], [address] [place] [address], [address] [place] [phone] Micha Washington MD [address] [place], [place] [phone] Molly Figueroa PA-C [address] [place] [address] [address] [place], [place] [id number] documented as of this encounter Visit Diagnoses Not on filedocumented in this encounter Additional Health Concerns Infection Onset Date Last Indicated Resolved Time 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 02/24/2017 02/22/2017 02/22/2017 04/02/2024 9:[address] documented as of this encounter Care Teams Flatbed Driver Relationship Specialty Start Date End Date Yehuda Barger MD [address] [place] [address] [place] [address] PCP - General 02/16/09 04/13/23 Milton Crum DO [address] [place] [address] [place] [address] PCP - General 01/08/09 02/15/09 Miky Louis MD [address] [place] [address] PCP - General 12/26/07 01/07/09 Elijah Serra DO 100 [place] [address] PCP - General Family Medicine 07/21/23 Provider, Historical 02/16/16 08/25/16 Willi Templeton MD [address] [facility] [address] [place] [address] Gastroenterology 02/25/16 María Andre MD [address] [place] [address] [address] [place] [address] Gastroenterology 03/08/16 Selene Rodriguez APRN [address] [place] [address] Gastroenterology 08/23/16 Mariah Flowers APRN [address] [place] [address] 510 [place] [address] Nurse Practitioner 08/26/16 Neyda Beltran MD [address] [address] [place] [address] Nephrology 03/17/17 Ryanne Roblero MD [address] [address] [place] [address] Rheumatology 03/01/18 Mi Martin APRN [address] [place] [address] [address] [place] [phone] Nurse Practitioner Nurse Practitioner 04/16/19 Micha Washington MD [address] [place] [address] [address] [place] [address] Endocrinology 08/06/24 08/06/24 documented as of this encounter
--- OUTSIDE RECORDS SUMMARY | 2024-08-13 12:44 | XMS_ITS | Encounter Summary ---
Author Organization [facility] Address [address] [place] [address] Support Name Relationship Address Phone Stepan Gold Personal Relationship [address] [facility] [place] [address] Mi Gold Personal Relationship Unknown Rosalind Mai Personal Relationship Unknown [phone] Vivi Ward Personal Relationship Unknown [phone] Care Team Providers Care Montessori Teacher Name Role Phone Lesley Grace MD Primary Care Provider [phone] Provider, Historical Unavailable Unavailable Willi Templeton MD Unavailable María Andre MD Unavailable Selene Rodriguez JAVA FLEX DEVELOPER Unavailable Mariah Flowers JAVA FLEX DEVELOPER Unavailable Neyda Beltran MD Unavailable Ryanne Roblero MD Unavailable Unavailable Mi Martin JAVA FLEX DEVELOPER Unavailable [phone] Elijah Serra DO Primary Care Provider Micha Washington MD Unavailable Reason for Visit * Reason Onset Date Comments Results - Lab 08/30/2014 Other Encounter Details Date Type Department Care Team (Late st Contact Info) Description 08/30/[address] LESLEY GRACE MD, [address] [place] [address] Lesley Grace MD [address] [place] [address] [address] [place] [address] Results - Lab; Social History Tobacco Use Types Packs/Day Years Used Date Smoking Tobacco: Never Alcohol Use Standard Drinks/Week Comments No 0 (1 standard drink = 0.6 oz pur e alcohol) Sex and Gender Information Value Date Recorded Sex Assigned at Not on file Legal Sex Male 9:48 PM EST Gender Identity Not on file Sexual Orientation Not on file documented as of this encounter Miscellaneous Notes * Telephone Encounter - Susan Bobby MA - 08/30/2014 12:30 PM EDT No answer * Telephone Encounter - Susan Bobby MA - 08/30/2014 12:30 PM EDT ----- Message from Lesley Grace MD sent at 08/30/2014 12:27 PM EDT ----- Kidney function improved, go ahead and feel and start Cozaar prescription which patient has * Telephone Encounter - Susan Bobby MA - 08/30/2014 11:17 AM EDT Creatine is 1.5 should he restart the cozaar?? Van cell [phone] documented in this encounter Plan of Treatment Upcoming Encounters Date Type Department Care Team (Late st Contact Info) Description 11/06/2024 11:00 AM EDT Office Visit [facility] [place] [address], [facility], [address] [place] [address] Micha Washington MD [address] [place] [address] Molly Figueroa PA-C [address] [place] [address] [address] [place] [address] documented as of this encounter Visit Diagnoses Not on filedocumented in this encounter Additional Health Concerns Infection Onset Date Last Indicated Resolved Time 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 02/24/2017 02/22/2017 02/22/2017 04/02/2024 9:[address] documented as of this encounter Care Teams Montessori Teacher Relationship Specialty Start Date End Date Lesley Grace MD [address] [place] [address] [place] [address] [place] [address] PCP - General 02/16/09 04/13/23 Elijah Serra DO 100 [place] [address] PCP - General Family Medicine 07/21/23 Provider, Historical 02/16/16 08/25/16 Willi Templeton MD 613 [address] [address] [place] [address] Gastroenterology 02/25/16 María Andre MD 613 [address] [address] [place] [address] Gastroenterology 03/08/16 Selene Rodriguez APRN [address] [place] [address] 203 [place] [address] Gastroenterology 08/23/16 Mariah Flowers APRN 613 [address] 510 [place] [address] Nurse Practitioner 08/26/16 Neyda Beltran MD [address] [facility] [place] [address] Nephrology 03/17/17 Ryanne Roblero MD [address] [place] [address] [address] [place] [address] Rheumatology 03/01/18 Mi Martin APRN [address] [place] [address] [address] Nurse Practitioner Nurse Practitioner 04/16/19 Micha Washington MD [address] [place] [address] [address] [place] [address] Endocrinology 08/06/24 08/06/24 documented as of this encounter
--- OUTSIDE RECORDS SUMMARY | 2024-08-13 12:44 | XMS_ITS | Encounter Summary ---
Author Organization [facility] Address [address] [place] [address] Support Name Relationship Address Phone Stepan Gold Personal Relationship [address] [place] [address] Mi Gold Personal Relationship Unknown Rosalind Mai Personal Relationship Unknown + [phone] Vivi Ward Personal Relationship Unknown [phone] Care Team Providers Care Field Project Manager Name Role Phone Yehuda Barger MD Primary Care Provider [phone] Milton Crum DO Primary Care Provider Miky Benton MD Primary Care Provider [phone] Provider, Historical Unavailable Unavailable Willi Templetno MD Unavailable [phone] María Andre MD Unavailable [phone] Selene Rodriguez CYCLE LIAISON Unavailable +[phone] Mariah Flowers CYCLE LIAISON Unavailable [phone] Neyda Beltran MD Unavailable +[phone] Ryanne Roblero MD Unavailable Unavailable Mi Martin APRN Unavailable [phone] Elijah Serra DO Primary Care Provider [phone] Micha Washington MD Unavailable Encounter Details Date Type Department Care Team (Late st Contact Info) Description 11/01/2005 Historical Encounter Global Horacio Sherman MD [address] [place] [address] Social History Tobacco Use Types Packs/Day Years [...] Description 11/06/2024 11:00 AM EDT Office Visit [facility] [address], [address] [place], [address] [place] [address] Micha Washington MD [address] [place], [place] [phone] Molly Figueroa PA-C 613 [facility] [address] [place], [place] [phone] documented as of this encounter Visit Diagnoses Not on filedocumented in this encounter Additional Health Concerns Infection Onset Date Last Indicated Resolved Time 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 02/24/2017 02/22/2017 02/22/2017 04/02/2024 9:[address] documented as of this encounter Care Teams Field Project Manager Relationship Specialty Start Date End Date Yehuda Barger MD [address] [place] [address] [address] [facility] [address] [place] [address] PCP - General 02/16/09 04/13/23 Milton Crum DO [address] [place] [address] [address] [facility] [place] [address] PCP - General 01/08/09 02/15/09 Miky Louis MD [address] [facility] [place] [address] PCP - General 12/26/07 01/07/09 Elijah Serra DO 100 [place] [address] PCP - General Family Medicine 07/21/23 Provider, Historical 02/16/16 08/25/16 Willi Templeton MD [address] [place] [address] Gastroenterology 02/25/16 María Andre MD 613 [facility] [address] [place] [address] [place], [place] [address] Gastroenterology 03/08/16 Selene Rodriguez APRN [address] [place] [address] 203 [place] [address] Gastroenterology 08/23/16 Mariah Flowers APRN [address] [place] [address] [address] [place] [address] Nurse Practitioner 08/26/16 Neyda Beltran MD [address] [facility] [address] [place] [address] Nephrology 03/17/17 Ryanne Roblero MD [address] [place] [address] [address] [place] [address] Rheumatology 03/01/18 Mi Martin APRN [address] [place] [address] 102 [place] [phone] Nurse Practitioner Nurse Practitioner 04/16/19 Micha Washington MD [address] [place] [address] [address] [place], [place] [id number] Endocrinology 08/06/24 08/06/24 documented as of this encounter
--- OUTSIDE RECORDS SUMMARY | 2024-08-13 12:44 | XMS_ITS | Clinical Summary ---
Author Organization [employer] ([place], [place], [place], [place]) Address [address] [place] [address] Care Team Providers Care Occup Therapist Name Role Phone Elijah Serra DO Primary Care Provider [phone] Allergies Active Allergy Reactions Criticality Noted Date Comments Iodine 03/21/2023 Tape, Occlusive Adhesive 03/21/2023 Medications allopurinoL (ZYLOPRIM) 300 MG tablet Take 1 tablet (300 mg total) by mouth daily. Active aspirin 81 MG EC tablet Take 1 tablet (81 mg total) by mouth daily. Active colchicine (COLCRYS) 0.6 mg tablet Take 1 tablet (0.6 mg total) by mouth daily. Active donepeziL (ARICEPT) 10 MG tablet Take 1 tablet (10 mg total) by mouth nightly. Active clopidogreL (PLAVIX) 75 mg tablet Take 1 tablet (75 mg total) by mouth daily. Active DULoxetine (CYMBALTA) 60 MG capsule Take 1 capsule (60 mg total) by mouth 2 (two) times daily. Active gabapentin (NEURONTIN) 800 MG tablet Take 1 tablet (800 mg total) by mouth 3 (three) times daily. Max Daily Amount: 2,400 mg Active HYDROcodone-ac etaminophen (NORCO 5-325) 5-325 mg per tablet Take 1 tablet by mouth every 8 (eight) hours as needed for Pain. Max Daily Amount: 3 tablets Active hydroxychloroq uine (PLAQUENIL) 200 mg tablet Take by mouth 2 (two) times daily. Active levothyroxine (SYNTHROID, LEVOTHROID) 125 MCG tablet Take 1 tablet (125 mcg total) by mouth Every morning on an empty stomach. Active lisinopriL (PRINIVIL,ZEST RIL) 2.5 MG tablet Take 1 tablet (2.5 mg total) by mouth nightly. Active metoprolol succinate (TOPROL-XL) 25 MG 24 hr tablet Take 1 tablet (25 mg total) by mouth daily. Active potassium chloride (KLOR-CON-M) 10 MEQ CR tablet Take 1 tablet (10 mEq total) by mouth daily. Active rosuvastatin (CRESTOR) 20 MG tablet Take 1 tablet (20 mg total) by mouth daily. Active sucralfate (CARAFATE) 1 gram tablet Take 1 tablet (1 g total) by mouth 4 (four) times daily. Active furosemide (LASIX) 40 MG tablet Take 1 tablet (40 mg total) by mouth daily. Active traZODone (DESYREL) 150 MG tablet Take 1 tablet (150 mg total) by mouth nightly. Active insulin aspart U-100 (NovoLOG) 100 unit/mL injection Inject subcutaneously 3 (three) times daily before meals. 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 No 09/05/2023 Interpersonal Safety Answer Date Record ed How often does anyone, comfort walters family and friends, physically hurt you? Never 09/05/2023 How often does anyone, comfort walters family and friends, insult or talk down to you? Never 09/05/2023 How often does anyone, comfort walters family and friends, threaten you with harm? Never 09/05/2023 How often does anyone, inclu ding family and friends, scream or curse at you? Never 09/05/2023 Housing Stability Answer Date Recorded What is your living situation today? I have a [address] [place] place to live 09/05/[address] you li ve. Do you have problems with any of the following? None of the above 09/05/2023 Food Insecurity Answer Date Recorded Within the past 12 months, y ou worried that your food would run out before you got money to buy more. Never true 09/05/2023 Within the past 12 months, t he food you bought just didn't last and you didn't have money to get more. Never true 09/05/2023 Transportation Needs Answer Date Record ed In the past 12 months, has l ack of reliable transportation kept you from medical appointments, meetings, work or from getting things needed for daily living? No 09/05/2023 Financial Resource Strain Answer Date R ecorded How hard is it for you to pa y for the very basics like food, housing, medical care, and heating? Would you say it is: Not hard at all 09/05/2023 Employment Answer Date Recorded Do you want help finding or keeping work or a job? I do not need or want help 09/05/2023 Family and Community Support Answer Terence e Recorded If for any reason you need h elp with day-to-day activities such as bathing, preparing meals, shopping, managing finances, etc., do you get the help you need? I don't need any help 09/05/2023 Feeling Lonely or Isolated 0 09/04 Educational Attainment Answer Date Oliverio rded Do you speak a language other than Vietnamese at [employer]? No 09/05/2023 Do you want help with school or training? For example, starting or completing job training or getting a high school diploma, GED or equivalent. No 09/05/2023 Physical Activity Answer Date Recorded Number of minutes of exercise per week 0 09/05/2023 Self Management Answer Date Recorded Because of a physical, menta l, or emotional condition, do you have serious difficulty concentrating, remembering, or making decisions? (5 years or older) No 09/05/2023 Because of a physical, menta l, or emotional condition, do you have difficulty doing errands alone such as visiting a doctor's office or shopping? (15 years or older) No 09/05/2023 Substance Use Answer Date Recorded How many times in the past y ear have you used prescription drugs for non-medical reasons? Never 09/05/2023 How many times in the past year have you used [place] legal drugs? Never 09/05/2023 Mental Health Answer Date Recorded Calculation of above two rows 0 Sex and Gender Information Value Date Recorded Sex Assigned at Male 08/04/2021 8:53 PM CDT Legal Sex Male 8:53 PM CDT Gender Identity Male 08/04/2021 8:53 PM CDT Sexual Orientation Not on file Last Filed Vital Signs Vital Sign Reading Time Taken Comments Blood Pressure 125/73 09/06/2023 8:52 AM EDT Pulse 63 09/06/2023 8:52 AM EDT Temperature 36.4 C (97.5 F) 09/06/2023 8:52 AM EDT Respiratory Rate 16 09/06/2023 6:45 AM EDT Oxygen Saturation 97% 09/06/2023 9:00 AM EDT Inhaled Oxygen Concentration - - Weight 86.2 kg (190 lb) 09/05/2023 4:04 PM EDT Height 175.3 cm (5' 9 ) 09/05/2023 4:04 PM EDT Body Mass Index 28.06 09/05/2023 4:04 PM EDT Plan of Treatment Health Maintenance Due Date Last Done Comments CT Colonography 1953 Colonoscopy 1953 Colorectal Cancer Screening 1955 Diabetic Kidney Health Evalu ation (KED) 1953 FOBT/FIT 1953 Fit-DNA (Cologuard) 1953 Sigmoidoscopy 1953 Diabetic Eye Exam 12/14/1963 Depression Screening (12+) 1965 Hepatitis C Screening 12/14/1971 Pneumococcal 50+ years (2 of 2 - PPSV23) 03/04/2011 01/07/2011 Respiratory Syncytial Virus (RSV) Adult or (1 - Risk 60-74 years 1-dose series) 2013 Medicare Initial AWV G0438 12/10/2019 Hemoglobin A1C 03/21/2023 COVID-19 VACCINE (5 - 2023-2 5 season) 2023 01/24/2023, 11/11/2020, 05/09/2020, Additional history exists Falls Risk Screening 02/08/2024 Tobacco Cessation Counseling and Screening (12+) 09/04/2024 09/05/2023 Influenza Vaccine (#1) 2024 , 12/21/2021, 12/19/2020, Additional history exists DTAP/TDAP/TD VACCINES (3 - T d or Tdap) 04/25/2029 04/26/2019, 08/24/2012 Shingles Vaccine (Zoster) Completed 09/15/2021, 09/2021 Insurance [place] [address] [place] [address] Advance Directives For more information, please contact: [phone] * Full Code (Latest Code Status on File) Date Activated Date Inactivated Comments 09/05/2023 4:42 PM 09/06/2023 2:20 PM Care Teams Occup Therapist Relationship Specialty Start Date End Date Elijah Serra DO [address] [facility] 1ST [place] [id number] PCP - General Family Medicine 03/11/23
--- OUTSIDE RECORDS SUMMARY | 2024-08-13 12:44 | XMS_ITS | Encounter Summary ---
Author Organization [facility] Address [address] [place] [address] Support Name Relationship Address Phone Stepan Gold Personal Relationship [address] [place] [address] Mi Gold Personal Relationship Unknown Rosalind Mai Personal Relationship Unknown [phone] Vivi Ward Personal Relationship Unknown Care Team Providers Care Surgical Specialist Name Role Phone Yehuda Bagrer MD Primary Care Provider [phone] Willi Templeton MD Unavailable [phone] María Andre MD Unavailable Selene Rodriguez EMERGENCY DEPARTMENT MANAGER Unavailable Mariah Flowers EMERGENCY DEPARTMENT MANAGER Unavailable Neyda Beltran MD Unavailable Ryanne Roblero MD Unavailable Unavailable Mi Martin EMERGENCY DEPARTMENT MANAGER Unavailable [phone] Elijah Serra DO Primary Care Provider [phone] Micha Washington MD Unavailable Reason for Visit * Reason Onset Date Comments Follow-up 09/17/2016 Closure call pernell e per ACM. No answer. Letter sent with my contact information for pt's reference as needed. Pt. has not been readmitted x 30 days, goal met. Encounter Details Date Type Department Care Team (Late st Contact Info) Description 09/17/2016 Telephone Population Health Management [address] [place] [address] Billie Patahk RN Follow-up (Closure call made per ACM. No answer. Letter sent with my contact information for pt's reference as needed. Pt. has not been readmitted x 30 days, goal met. ) Social History Tobacco Use Types Packs/Day Years [...] Description 11/06/2024 11:00 AM EDT Office Visit [facility] [address] [place] [address], [facility] [place] [phone] Micha Washington MD [address] [place] [address] Molly Figueroa PA-C [address] [place] [address] documented as of this encounter Visit Diagnoses Not on filedocumented in this encounter Additional Health Concerns Infection Onset Date Last Indicated Resolved Time 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 02/24/2017 02/22/2017 02/22/2017 04/02/2024 9:[address] documented as of this encounter Care Teams Surgical Specialist Relationship Specialty Start Date End Date Yehuda Barger MD [address] [place] [address] [address] [place] [address] PCP - General 02/16/09 04/13/23 Elijah Serra DO [address] [place] [address] PCP - General Family Medicine 07/21/23 Willi Templeton MD [address] [place] [address] [facility] [place] [address] Gastroenterology 02/25/16 María Andre MD [address] [place] [address] [facility] [place] [address] Gastroenterology 03/08/16 Selene Rodriguez APRN [address] [place] [address] Gastroenterology 08/23/16 Mariah Flowers APRN [address] [place] [address] [address] [place] [address] Nurse Practitioner 08/26/16 Neyda Beltran MD [address] [place] [address] [address] [facility] [place] [address] Nephrology 03/17/17 Ryanne Roblero MD [address] [place] [address] [address] [facility] [place] [address] Rheumatology 03/01/18 Mi Martin APRN [address] [place] [address] [address] [place] [address] Nurse Practitioner Nurse Practitioner 04/16/19 Micha Washington MD [address] [place] [address] [address] [place] [address] Endocrinology 08/06/24 08/06/24 documented as of this encounter
--- OUTSIDE RECORDS SUMMARY | 2024-08-13 12:44 | XMS_ITS | Encounter Summary ---
Author Organization [facility] Address [address] [place] [address] Support Name Relationship Address Phone Stepan Gold Personal Relationship [address] [place] [address] Mi Gold Personal Relationship Unknown Rosalind Mai Personal Relationship Unknown + [phone] Vivi Ward Personal Relationship Unknown [phone] Care Team Providers Care Manager Hris Name Role Phone Yehuda Barger MD Primary Care Provider [phone] Milton Crum DO Primary Care Provider Miky Benton MD Primary Care Provider [phone] Provider, Historical Unavailable Unavailable Wilil Templeton MD Unavailable [phone] María Andre MD Unavailable [phone] Selene Rodriguez CARPENTERS SUPERVISOR Unavailable [phone] Mariah Flowers CARPENTERS SUPERVISOR Unavailable [phone] Neyda Beltran MD Unavailable [phone] Ryanne Roblero MD Unavailable Unavailable Mi Martin APRN Unavailable [phone] Elijah Serra DO Primary Care Provider [phone] Micha Washington MD Unavailable Encounter Details Date Type Department Care Team (Late st Contact Info) Description 06/19/2003 Historical Encounter Global Horacio Gill MD [address] [place] [address] Social History Tobacco Use Types Packs/Day Years [...] Description 11/06/2024 11:00 AM EDT Office Visit [facility] [place] [address] [place] [phone] Micha Washington MD [address] [place] [address] [address] [place], [place] [address] Molly Figueroa PA-C [address] [place] [address] [address] [place] [address] documented as of this encounter Visit Diagnoses Not on filedocumented in this encounter Additional Health Concerns Infection Onset Date Last Indicated Resolved Time 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 02/24/2017 02/22/2017 02/22/2017 04/02/2024 9:[address] documented as of this encounter Care Teams Manager Hris Relationship Specialty Start Date End Date Yehuda Barger MD [address] [place] [address] [place] [address] [place] [address] PCP - General 02/16/09 04/13/23 Milton Crum DO [address] [place] [address] [place] [address] PCP - General 01/08/09 02/15/09 Miky Louis MD [address] [place] [address] PCP - General 12/26/07 01/07/09 Elijah Serra DO [address] [place] [address] PCP - General Family Medicine 07/21/23 Provider, Historical 02/16/16 08/25/16 Willi Templeton MD [address] [place] [address] Gastroenterology 02/25/16 María Andre MD [address] [place] [address] Gastroenterology 03/08/16 Selene Rodriguez APRN [address] [place] [address] [address] [place] [address] Gastroenterology 08/23/16 Mariah Flowers APRN [address] [place] [address] [address] [place] [address] Nurse Practitioner 08/26/16 Neyda Beltran MD [address] [place] [address] Nephrology 03/17/17 Ryanne Roblero MD [address] [place] [address] Rheumatology 03/01/18 Mi Martin APRN [address] [place] [address] [address] [place] [phone] Nurse Practitioner Nurse Practitioner 04/16/19 Micha Washington MD [address] [place] [address] [address] [place] [address] Endocrinology 08/06/24 08/06/24 documented as of this encounter
--- OUTSIDE RECORDS SUMMARY | 2024-08-13 12:44 | XMS_ITS | Encounter Summary ---
Author Organization [facility] Address [address] [place] [address] Support Name Relationship Address Phone Stepan Gold Personal Relationship [address] [place] [address] Mi Gold Personal Relationship Unknown Rosalind Mai Personal Relationship Unknown Vivi Ward Personal Relationship Unknown Care Team Providers Care Bee Rancher Name Role Phone Yehuda Barger MD Primary Care Provider Milton Crum DO Primary Care Provider Miky Benton MD Primary Care Provider [phone] Provider, Historical Unavailable Unavailable Willi Templeton MD Unavailable [phone] María Andre MD Unavailable [phone] Selene Rodriguez DIRECT SALES CONSULTANT Unavailable Mariah Flowers DIRECT SALES CONSULTANT Unavailable [phone] Neyda Beltran MD Unavailable [phone] Ryanne Roblero MD Unavailable Unavailable Mi Martin APRN Unavailable [phone] Elijah Serra DO Primary Care Provider [phone] Micha Washington MD Unavailable Encounter Details Date Type Department Care Team (Late st Contact Info) Description 03/01/2004 Historical Encounter Global Horacio Sherman MD [address] [place] [address] Social History Tobacco Use Types Packs/Day Years [...] Description 11/06/2024 11:00 AM EDT Office Visit [facility] [address], [address] [place] [address], [address] [place] [address] Micha Washington MD [address] [place], [place] [address] Molly Figueroa PA-C [address] [address] [place], [place] [address] documented as of this encounter Visit Diagnoses Not on filedocumented in this encounter Additional Health Concerns Infection Onset Date Last Indicated Resolved Time 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 02/24/2017 02/22/2017 02/22/2017 04/02/2024 9:[address] documented as of this encounter Care Teams Bee Rancher Relationship Specialty Start Date End Date Yehuda Barger MD [address] [place] [address] 1948 [facility] [address] [place] [address] PCP - General 02/16/09 04/13/23 Milton Crum DO [address] [place] [address] 1948 [facility] [address] [place] [address] PCP - General 01/08/09 02/15/09 Miky Louis MD [address] [facility] [place] [address] PCP - General 12/26/07 01/07/09 Elijah Serra DO [address] [place] [address] PCP - General Family Medicine 07/21/23 Provider, Historical 02/16/16 08/25/16 Willi Templeton MD [address] [place] [address] Gastroenterology 02/25/16 María Andre MD [address] [address] [place] [address] [place], [place] [address] Gastroenterology 03/08/16 Selene Rodriguez APRN [address] [place] [address] 203 [place] [address] Gastroenterology 08/23/16 Mariah Flowers APRN [address] [place] [address] [address] [place] [address] Nurse Practitioner 08/26/16 Neyda Beltran MD [address] [facility] [address] [place] [address] Nephrology 03/17/17 Ryanne Roblero MD [address] [place] [address] [address] [place] [address] Rheumatology 03/01/18 Mi Martin APRN [address] [place] [address] [address] [place] [id number] Nurse Practitioner Nurse Practitioner 04/16/19 Micha Washington MD [address] [place] [address] [address] [place], [place] [id number] Endocrinology 08/06/24 08/06/24 documented as of this encounter
--- OUTSIDE RECORDS SUMMARY | 2024-08-13 12:44 | XMS_ITS | Referral Summary ---
Author Organization [employer] ([place], [place], [place], [place]) Address [address] [place] [address] Care Team Providers Care Naval Engineer Name Role Phone Elijah Serra DO Primary Care Provider [phone] Allergies Active Allergy Reactions Criticality Noted Date [...] the past 12 months, has t he [employer], gas, oil, or water [employer] threatened to shut off services in your [...] Do you speak a language other than [place] at [facility]? No 09/05/2023 Do you want help [...] 09/05/2023 4:04 PM EDT Plan of Treatment Not on file Insurance MEDICARE PART A B Advance Directives For more information, please contact: [phone] * Full Code (Latest Code Status on File) Date Activated Date Inactivated Comments 09/05/2023 4:42 PM 09/06/2023 2:20 PM Care Teams Naval Engineer Relationship Specialty Start Date End Date Elijah Serra, DO [address] [facility] 1ST [place] [address] PCP - General Family Medicine 03/11/23
--- OUTSIDE RECORDS SUMMARY | 2024-08-13 12:44 | XMS_ITS | Encounter Summary ---
Author Organization [employer] ([place], [place], [place], [place]) Address [address] [place] [address] Care Team Providers Care Claim Review Medical Director Name Role Phone Elijah Serra DO Primary Care Provider [phone] Encounter Details Date Type Department Care Team (Late st Contact Info) Description 07/20/2021 Transcribed Document [facility] [place] [address] [place] [address] ProviderMichael MD [address] [place] [address] Social History Tobacco Use Types Packs/Day Years Used Date Smoking Tobacco: Never Assessed Utilities Answer Date Recorded In the past 12 months, has t he electric, gas, oil, or water company threatened [...] harm? Never 09/05/2023 How often does anyone, comfort walters family and friends, scream or curse at [...] a language other than [place] Korean at [facility]? No 09/05/2023 Do you want help [...] Miscellaneous Notes * Cerner Conversion Note - Historical Provider, - 07/20/2021 3:08 PM CDT Patient: OBDULIO DOWD Age: 65 Years Sex: Male : 1955 Admit Date 07/18/2021 13:28 Discharge Date 07/20/21 [facility] Diagnosis Hyperglycemia 07/18/2021 R73.9 ICD-10-CM Dizziness 07/18/2021 R42 ICD-10-CM Fall from standing 07/18/2021 W19.XXXA ICD-10-CM PNA (pneumonia) 07/18/2021 J18.9 ICD-10-CM Acute renal failure superimposed on chronic kidney disease 07/18/2021 N17.9 ICD-10-CM Dyspnea 07/18/2021 R06.00 ICD-10-CM Peripheral edema 07/18/2021 R60.9 ICD-10-CM Skin tear of upper extremity 07/18/2021 S41.119A ICD-10-CM Procedures None Studies PORTABLE CHEST 07/18/2021 11:49 AM HISTORY: Dizziness for 2 weeks, fall this a.m. COMPARISON: None. FINDINGS: The heart is normal in size . The mediastinum is unremarkable . There is a left lower lobe opacity. There is no pneumothorax . The osseous structures are unremarkable . IMPRESSION: Opacity as above. Probably secondary to pneumonia. Follow-up to complete resolution recommended . [1] Type of Study: TTE procedure: EC Echo Complete. Patient Status: Routine IP Study Location: PortableTechnical Quality: Adequate visualization Allergies - Contrast. - Iodine. Impression: Indication: Hypertensive heart disease with heart failure I11.0. Normal sized left ventricle. Normal left ventricular wall thickness. Visually estimated ejection fraction 55% +/- 5%. Normal left ventricular systolic function with normal systolic strain pattern. Normal left ventricular diastolic function. No hemodynamically significant valvular heart disease. No masses or thrombi are seen. [2] Type of Study: Veins: Venous Duplex, Venous Duplex Legs, Lower Extremities DVT Study, US VL Veins LE Duplex BILAT. Indications for Study:Swelling and SOB. Impressions Summary INDICATION: Bilateral lower extremity swelling, shortness of Breath (R22.43, R06.02) RIGHT LEG: No evidence of deep venous thrombosis (DVT) or superficial venous thrombosis. Unable to visualize GSV; previously harvested. LEFT LEG: No evidence of deep venous thrombosis (DVT) or superficial venous thrombosis. Unable to visualize GSV; previously harvested. Incidental finding: reflux (1.36s) noted in the CFV. [3] ULTRASOUND KIDNEYS HISTORY: Renal insufficiency. PROCEDURE: Multiple sonographic images of the kidneys were obtained in the longitudinal and transverse planes. COMPARISON: None. FINDINGS: The right kidney measures 10.5 cm in pole to pole length. There is no hydronephrosis, mass or stone. Cortical echogenicity and cortical thickness are within normal limits. The left kidney measures 10.5 cm in pole to pole length. There is no hydronephrosis. An upper pole cyst measures 3 cm. Cortical echogenicity and cortical thickness are within normal limits. IMPRESSION: Left renal cyst. [4] Reason for Hospitalization Weakness, edema Hospital Course This is a 65-year-old male who presented on July 18, 2021 with weakness and edema. He was treated for pneumonia, ELIZABETH and acute CHF exacerbation and was seen by cardiology and nephrology. He was diuresed with improvement in his lower extremity swelling and started on IV antibiotics. His echocardiogram was unremarkable and duplex of the lower extremities were also unremarkable. He was seen by nephrology due to an ELIZABETH however with diuresis and antibiotics, his creatinine improved. He had some hyperglycemia on admission however his insulin pump was not working and his brought in supplies in order to get his pump to function again. He was noted to be anemic and iron deficient and would benefit from following up with GI as an outpatient for colonoscopy if he has not already had one. Please note, this is only a summary for complete history please refer the chart. Greater than 30 minutes spent in discharge planning. Vital Signs T: 36.6 ??C TMIN: 36.3 ??C TMAX: 37.1 ??C HR: 76(Monitored) RR: 16 BP: 134/75 SpO2: 97% Oxygen Settings (Last) Oxygen Therapy Mode: Room air (07/20/21 14:40:00) Physical Exam General: [alert , well nourished, no acute distress ] Neurologic: [awake and alert oriented x3 , cranial nerves 2-12 intact _ , _ no focal deficit , normal sensation _ ] Eye: [pupils equal round and reactive , extra ocular movements intact , normal conjunctiva ] HENT: [normocephalic,clear tympanic membranes , normal hearing, moist oral mucosa ,no scleral icterus, no sinus tenderness ] Neck: [supple , non-tender, no carotid bruits, no jugular venous distension , no lymphadenopathy ] Lungs: [ non labored respiration _ , equal breath sounds, _ no wheezing _ , no rhonchi , no rales , on room air ] Heart: [normal rate, regular rhythm, _ no murmur _ , no gallop, no edema ] Abdomen: [soft non-tender _ , no guarding , non-distended , normal bowel sounds , no masses] MSkeletal: [normal range of motion, no tenderness or swelling ]. Skin: [skin is warm , dry , appropriate for ethnicity , no rashes , _] Psychiatric: [cooperative , appropriate mood and affect] Discharge Disposition No Disposition on Record Discharge Follow Up ELIJAH SERRA DO-MELANIE - Within 2 to 3 days JASON BURGOS - 09:45 AM Discharge Medications (23) Active acetaminophen-HYDROcodone 325 mg-5 mg oral tablet 1 Tab, Oral, Q8H Adult Aspirin Regimen 81 mg oral delayed release tablet 81 mg = 1 Tab, Oral, Daily allopurinol 100 mg oral tablet 100 mg = 1 Tab, Oral, Daily baclofen 10 mg oral tablet 10 mg = 1 Tab, Oral, BID clopidogrel 75 mg oral tablet 75 mg = 1 Tab, Oral, Daily Cymbalta 60 mg oral delayed release capsule 60 mg = 1 Cap, Oral, BID erythromycin 0.5% ophthalmic ointment 0.5 Inch, Eye Right, TID ferrous gluconate 324 mg (38 mg elemental iron) oral tablet 324 mg = 1 Tab, Oral, Daily fluticasone 50 mcg/inh nasal spray 2 [place], PRN, Nasal, Daily furosemide 40 mg oral tablet 40 mg = 1 Tab, Oral, Daily gabapentin 600 mg oral tablet 600 mg = 1 Tab, Oral, TID hydroxychloroquine 200 mg oral tablet 400 mg = 2 Tab, Oral, Daily levothyroxine 125 mcg (0.125 mg) oral tablet 125 mcg = 1 Tab, Oral, Daily lisinopril 2.5 mg oral tablet 2.5 mg = 1 Tab, Oral, Daily Metoprolol Tartrate 25 mg oral tablet 12.5 mg = 0.5 Tab, Oral, BID moxifloxacin 0.5% ophthalmic solution 1 Drop, Eye Right, BID Oxervate 0.002 % eye drops 2 Drop, PRN, Eye Right, Q2H Potassium Chloride (Gwm-Vcls-Zep M10) 10 mEq oral tablet, extended release 10 mEq = 1 Tab, Oral, Daily rosuvastatin 20 mg oral tablet 20 mg = 1 Tab, Oral, At Bedtime sucralfate 1 g oral tablet 1 Gram = 1 Tab, Oral, AC and at Bedtime tamsulosin 0.4 mg oral capsule 0.4 mg = 1 Cap, Oral, BID traZODone 150 mg oral tablet 150 mg = 1 Tab, Oral, At Bedtime Zirgan 0.15% ophthalmic gel 1 Drop, Eye Right, 5 Times a Day Code Status Start: 07/18/21 13:32:00 EDT, Full Code, Continuous Order Condition on Discharge Improved Consulting Physicians SKIP ROBLES MD-JOHANA COLE MD-CATHERINE LANE MD SIDDIQUI, HAMMAD, MD Current Diet Order Diet, Adult - Ordered -- Start: 07/18/21 13:32:00 EDT, Cardiac Diet, Low Fat Diet, Low Sodium Follow Up Labs/Studies Repeat CXR in 1 week Pending Labs Dispatched Respiratory Panel PCR Specimen Type: Nasopharyngeal Swab, Stat collect, 07/18/21 13:49:00 EDT, 1-Time, Stop: 07/18/21 13:49:00 EDT, Nurse Collect, Reason for Testing PUI Clinically Indicated, Unknown, Yes, Unknown, Yes, Yes, Unknown, Unknown Preliminary Culture Blood Specimen Type: Blood, Stat collect, 07/18/21 13:20:00 EDT, 1-Time, Stop: 07/18/21 13:20:00 EDT Culture Blood Specimen Type: Blood, Timed Study collect, 07/18/21 13:35:00 EDT, 1-Time, Stop: 07/18/21 13:35:00 EDT Time Spent on Discharge >30 min [1] CR Chest 1 Vw Port; Kvng Pugh, Intervention Nurse 07/18/2021 12:08 EDT [2] [facility]; JOHANA BARNEY MD-CAR 07/20/2021 07:41 EDT [3] [facility]; JOHANA BARNEY MD-CAR 07/20/2021 09:09 EDT [4] US Renal Comp; ORALIA QUINTERO L 07/20/2021 13:28 EDT Electronically signed by [facility], [facility] Conversion Baseboard Heating Installer Cerner at 05/25/2022 6:13 PM CDT documented in this encounter Plan of Treatment Not on file documented as of this encounter Visit Diagnoses Not on filedocumented in this encounter Care Teams Claim Review Medical Director Relationship Specialty Start Date End Date Elijah Serra, DO [address] [facility] [address] [place] [address] PCP - General Family Medicine 03/11/23 documented as of this encounter
--- OUTSIDE RECORDS SUMMARY | 2024-08-13 12:44 | XMS_ITS | Encounter Summary ---
Author Organization [employer] ([place], [place], [place], [place]) Address [address] [place] [address] Care Team Providers Care Telemetry Rn Name Role Phone Elijah Serra DO Primary Care Provider [phone] Encounter Details Date Type Department Care Team (Late st Contact Info) Description 07/20/2021 Transcribed Document [facility] [place] [address] [place] [address] ProviderMichael MD [address] [place] [address] Social History Tobacco Use Types [...] Do you speak a language other than Czech at [facility]? No 09/05/2023 Do you want help with [...] * Cerner Conversion Note - Historical Provider, MD - 07/20/2021 3:18 PM CDT Patient: SOLEDAD DOWD Age: 65 Years Sex: Male : 1955 Subjective Seen and examined at bedside, reports no complaints. Renal function improving; creatinine down to 1.2 mg/dL. Vital Signs T: 36.6 ??C TMIN: 36.3 ??C TMAX: 37.1 ??C HR: 76(Monitored) RR: 16 BP: 134/75 SpO2: 97% Oxygen Settings (Last) Oxygen Therapy Mode: Room air (07/20/21 14:40:00) Intake & Output Totals Last 24 Hours (7a-7a) Input Total: 54 mL Output Total: 1050 mL Balance: -996 mL Hospital Course This is a 65-year-old male [...] than 30 minutes spent in discharge planning. Physical Exam General: Appears well, alert Neck: Supple, - JVD Resp: Mild bibasilar crackles CVS: S1, S2, RRR, no rubs or gallop rhythm, no murmur GI: Soft, non tender, BS+ Ext: trace edema b/l Neuro: AAX3, non focal findings, no tremors Skin: - Rash Assessment/Plan ELIZABETH on CKD stage III Pseudohyponatremia Diabetes mellitus --uncontrolled hyperglycemia likely from insulin pump malfunction CAD s/p stents and CABG - Likely ? CHF [echo pending] Hypotension Dyslipidemia Hypothyroidism BPH Plan: -ELIZABETH on CKD stage III: Unknown baseline kidney function. Creatinine on admission 2.4 mg/dL >> improved to 1.2 mg/dL today. Follows Dr. Dodge. I will not do a extensive work-up at this time as renal function has significantly improved. Renal US already ordered; result pending. Avoid nephrotoxins. Strict I's/O. Dose meds to GFR. No acute indication for dialysis at this time. - Hyponatremia on admission: Sodium was 128 mmol/L; however with hyperglycemia corrected sodium is 138. -Anemia: Hemoglobin 11.9.. Normal ferritin and low percent Sat. will start PO iron tabs daily. - BPH: on tamsulosin. - Hypothyroidism: On levothyroxine. Patient can be discharged from nephrology standpoint; can follow-up with Dr. Dodge at patient's.. Nephrology will sign off at this point thank you for the consult. VTE Prophylaxis - Medical Clopidogrel 75 mg, Oral, Tab, Daily, Routine, Start 07/19/21 9:00:00 EDT, 07/18/21 16:13:00 EDT (SKIP ROBLES MD-INT) Heparin 5,000 Units, SubCutaneous, Inj, [id number], Routine, Start 07/18/21 15:00:00 EDT, 07/18/21 14:02:00 EDT (SKIP ROBLES MD-INT) Medications allopurinol, 100 mg= 1 Tab, Oral, Daily Bumex, 1 mg= 4 mL, IV Push, 1-Time clopidogrel, 75 mg= 1 Tab, Oral, Daily Colace, 100 mg= 1 Cap, Oral, BID, PRN Crestor, 20 mg= 1 Tab, Oral, Daily Dextrose 50% injection, 25 Gram= 50 mL, IV Push, Q15Min, PRN Dextrose 50% injection, 25 Gram= 50 mL, IV Push, Q15Min, PRN Dextrose 50% injection, 25 Gram= 50 mL, IV Push, Q15Min, PRN Dextrose 50% injection, 12.5 Gram= 25 mL, IV Push, Q15Min, PRN doxycycline, 100 mg= 1 Cap, Oral, BID DULoxetine, 60 mg= 2 Cap, Oral, Daily DuoNeb 0.5 mg-2.5 mg/3 mL inhalation solution, 3 mL, Nebulized Inhalation , Q6H, PRN ferrous gluconate, 324 mg= 1 Tab, Oral, Daily Florastor, 250 mg= 1 Cap, Oral, BID gabapentin, 600 mg= 1 Tab, Oral, BID glucagon, 1 mg= 1 mL, IntraMuscular, Q15Min, PRN glucose 4 g oral tablet, chewable, 16 Gram= 4 Tab, Chew, Q15Min, PRN glucose 40% oral gel, 15 Gram= 37.5 mL, Oral, Q15Min, PRN heparin, 5000 Units= 1 mL, SubCutaneous, [id number] hydrALAZINE, 5 mg= 0.25 mL, IV Push, Q4H, PRN hydroxychloroquine, 200 mg= 1 Tab, Oral, Daily insulin glargine, 3 Units= 0.03 mL, SubCutaneous, Daily insulin lispro, 10 Units= 0.1 mL, SubCutaneous, TID With Meals insulin lispro sliding scale, Scale B:, SubCutaneous, AC and at Bedtime levothyroxine, 125 mcg= 1 Tab, Oral, Daily metoprolol tartrate, 12.5 mg= 0.5 Tab, Oral, BID MiraLax, 17 Gram= 1 Packet, Oral, Daily, PRN Rocephin, 2 Gram= 50 mL, IV Piggyback, Daily Roxicodone, 5 mg= 1 Tab, Oral, Q4H, PRN tamsulosin, 0.4 mg= 1 Cap, Oral, Daily traZODone, 50 mg= 1 Tab, Oral, At Bedtime Tylenol, 650 mg= 2 Tab, Oral, Q4H, PRN Zofran, 4 mg= 2 mL, IV Push, Q4H, PRN Lab Results Test Name Test Result Date/Time Sodium Level 140 mmol/L 07/20/2021 10:08 EDT Potassium Level 4.1 mmol/L 07/20/2021 10:08 EDT Chloride Level 103 mmol/L 07/20/2021 10:08 EDT Carbon Dioxide Level 33 mmol/L (High) 07/20/2021 10:08 EDT Anion Gap 8 (Low) 07/20/2021 10:08 EDT Glucose Level 304 mg/dL (High) 07/20/2021 10:08 EDT Blood Urea Nitrogen 17 mg/dL 07/20/2021 10:08 EDT Creatinine Level 1.20 mg/dL 07/20/2021 10:08 EDT eGFR >60 mL/min/1.73m2 07/20/2021 10:08 EDT eGFR NonAfrican 60 mL/min/1.73m2 07/20/2021 10:08 EDT Bun/Creatinine 14.2 07/20/2021 10:08 EDT Calcium Level 9.2 mg/dL 07/20/2021 10:08 EDT Device Comment 1 Notified Nurse RBV 07/20/2021 12:01 EDT Device Comment 1 Notified Nurse RBV 07/20/2021 05:58 EDT Device Comment 1 Notified Nurse RBV 07/19/2021 20:40 EDT Device Comment 1 Notified Nurse RBV 07/19/2021 16:59 EDT Glucose POC2 246 mg/dL (High) 07/20/2021 12:01 EDT Glucose POC2 342 mg/dL (High) 07/20/2021 05:58 EDT Glucose POC2 145 mg/dL (High) 07/19/2021 20:40 EDT Glucose POC2 72 mg/dL 07/19/2021 16:59 EDT WBC 3.4 K/uL (Low) 07/20/2021 10:08 EDT RBC 4.64 Million/uL 07/20/2021 10:08 EDT Hgb 11.9 g/dL (Low) 07/20/2021 10:08 EDT Hct 37.7 % (Low) 07/20/2021 10:08 EDT MCV 81.3 fL 07/20/2021 10:08 EDT MCH 25.6 pg 07/20/2021 10:08 EDT MCHC 31.6 Gram/dL (Low) 07/20/2021 10:08 EDT Platelet Count 127 K/uL (Low) 07/20/2021 10:08 EDT MPV 9.1 fL (Low) 07/20/2021 10:08 EDT RDW 15.6 % (High) 07/20/2021 10:08 EDT Slide Review No 07/20/2021 10:08 EDT documented in this encounter Plan of Treatment Not on file documented as of this encounter Visit Diagnoses Not on filedocumented in this encounter Care Teams Telemetry Rn Relationship Specialty Start Date End Date Elijah Serra, DO [address] [facility] [address]ST [place] [id number] PCP - General Family Medicine 03/11/23 documented as of this encounter
--- OUTSIDE RECORDS SUMMARY | 2024-08-13 12:44 | XMS_ITS | Encounter Summary ---
Author Organization [facility] Address [address] [place] [address] Support Name Relationship Address Phone Stepan Gold Personal Relationship [address] [facility] [address] [place] [address] Mi Gold Personal Relationship Unknown Rosalind Mai Personal Relationship Unknown [phone] Vivi Ward Personal Relationship Unknown [phone] Care Team Providers Care Dba Name Role Phone Lesley Grace MD Primary Care Provider [phone] Willi Templeton MD Unavailable [phone] María nAdre MD Unavailable [phone] Selene Rodriguez VARIETY SAW OPERATOR Unavailable Mariah Flowers VARIETY SAW OPERATOR Unavailable [phone] Neyda Beltran MD Unavailable Ryanne Roblero MD Unavailable Unavailable Mi Martin VARIETY SAW OPERATOR Unavailable [phone] Elijah Serra DO Primary Care Provider [phone] Micha [place] MD Unavailable Reason for Visit * Reason Onset Date Comments Phone Advice For Symptoms 07/11/2018 Encounter Details Date Type Department Care Team (Late st Contact Info) Description 07/11/[address] LESLEY GRACE MD, [facility] [address] [facility] [address] [place] [phone] Lesley Grace MD [address] [place] [address] [place] [address] Phone Advice For Symptoms Social History Tobacco Use Types Packs/Day Years [...] encounter Miscellaneous Notes * Telephone Encounter - Sapphire Blanchard - 07/11/2018 11:14 AM EDT Asking for rx for mucinex d documented in this encounter Plan of Treatment Upcoming Encounters Date Type Department Care Team (Late st Contact Info) Description 11/06/2024 11:00 AM EDT Office Visit [address], [facility] [place] [facility], [address] [place], [place] [id number] Micha [place] MD [address] [place] [address] [place] [address] Molly Figueroa PA-C [address] [place] [address] [place] [address] documented as of this encounter Visit Diagnoses Not on filedocumented in this encounter Additional Health Concerns Infection Onset Date Last Indicated Resolved Time 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 02/24/2017 02/22/2017 02/22/2017 04/02/2024 9:[address] documented as of this encounter Care Teams Dba Relationship Specialty Start Date End Date Lesley Grace MD [address] [place] [address] [place] [address] PCP - General 02/16/09 04/13/23 Ponce ElijahDO [address] [place] [address] PCP - General Family Medicine 07/21/23 Willi Templeton MD [address] [facility] [place] [address] Gastroenterology 02/25/16 María Andre MD [address] [facility] [place] [facility] [place], [place] [id number] Gastroenterology 03/08/16 Selene Rodrigeuz APRN [address] [place] [address] Gastroenterology 08/23/16 Mariah Flowers APRN [address] [place] [address] Nurse Practitioner 08/26/16 Neyda Beltran MD [address] [place] [address] Nephrology 03/17/17 Ryanne Roblero MD [address] [facility] [place] [address] Rheumatology 03/01/18 Mi Martin APRN [address] [place] [address] [address] [place] [address] Nurse Practitioner Nurse Practitioner 04/16/19 Micha [place] MD [address] [place] [address] [address] [place], [place] [id number] Endocrinology 08/06/24 08/06/24 documented as of this encounter
--- OUTSIDE RECORDS SUMMARY | 2024-08-13 12:44 | XMS_ITS | Encounter Summary ---
Author Organization [employer] ([place], [place], [place], [place]) Address [address] [place] [address] Care Team Providers Care Ferruler Name Role Phone Elijah Serra DO Primary Care Provider Encounter Details Date Type Department Care Team (Late st Contact Info) Description 07/20/2021 Transcribed Document [facility] [place] Family Medicine [address] [place] [address] ProviderMichael MD [address] [place] [address] Social History Tobacco Use Types [...] Do you speak a language other than Polish at [facility]? No 09/05/2023 Do you want help with [...] Conversion Note - Historical Provider, - 07/20/2021 3:34 PM CDT Final Discharge Planning Entered On: 07/20/2021 15:35 EDT Performed On: 07/20/2021 15:34 EDT by DEVI CLAROS, Staff Midwife/Apprenticeship Director-Dispatch Machine Runner Final Discharge Planning Discharge Arrangements : Patient Post-Acute Information Patient Name: SOLEDAD DOWD Gender: Male : [birth year] Age: 65 Years No Post-Acute Placement(s) Listed No Post-Acute Service(s) Listed No Curaspan Referral(s) Listed Patient Offered Choice/Affiliations Explained : Yes Designation of Choice Signed : No Transportation Needs : Family/Friend Follow Up Appointment Scheduled : Yes Is Patient High/Moderate Readmission Risk? : Yes Patient/Family Notified of Plan : Yes Support Person/Pt Rep Notified of Plan : Yes Is Patient Ready for Discharge? : Yes Physician Notified Patient is Ready for Discharge? : Yes Discharge To Care Management : Home/Residential/Half-Way or Self Care -01 DEVI CLAROS Staff Midwife/Apprenticeship Director-Dispatch Machine Runner - 07/20/2021 15:34 EDT Final Narrative Note Final Narrative Note : Patient is discharging home. He reported that he is ADL independent and does not use DME. and denied having any discharge needs. Reported to having safe transport home. No needs identified. DEVI CLAROS Staff Midwife/Apprenticeship Director-Dispatch Machine Runner - 07/20/2021 15:34 EDT documented in this encounter Plan of Treatment Not on file documented as of this encounter Visit Diagnoses Not on filedocumented in this encounter Care Teams Ferruler Relationship Specialty Start Date End Date Elijah Serra DO [address] [facility] [address] [place] [address] PCP - General Family Medicine 03/11/23 documented as of this encounter
--- OUTSIDE RECORDS SUMMARY | 2024-08-13 12:44 | XMS_ITS | Encounter Summary ---
Author Organization [facility] Address [address] [place] [address] Support Name Relationship Address Phone Stepan Gold Personal Relationship [address] [place] [address] Mi Gold Personal Relationship Unknown Rosalind Mai Personal Relationship Unknown [phone] Vivi Ward Personal Relationship Unknown Care Team Providers Care Irrigationist Designer Name Role Phone Yehuda Barger MD Primary Care Provider Provider, Historical Unavailable Unavailable Willi Templeton MD Unavailable María Andre MD Unavailable Selene Rodriguez GREEN CHAIN OFF BEARER Unavailable Mariah Flowers GREEN CHAIN OFF BEARER Unavailable Neyda Beltran MD Unavailable Ryanne Roblero MD Unavailable Unavailable Mi Martin GREEN CHAIN OFF BEARER Unavailable [phone] Elijah Serra DO Primary Care Provider [phone] Micha Washington MD Unavailable Encounter Details Date Type Department Care Team (Late st Contact Info) Description 08/02/2016 Telephone Pre-Admission Testing [address] [facility] [place] [id number] Shweta Burr, RN Social History Tobacco Use Types Packs/Day Years [...] Office Visit [facility] [address], [facility], [address] [place] [id number] Micha Washington MD [address] [address] [place], [place] [id number] Molly Figueroa PA-C [address] [place] [address] [address] [place], [place] [id number] documented as of this encounter Visit Diagnoses Not on filedocumented in this encounter Additional Health Concerns Infection Onset Date Last Indicated Resolved Time 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 02/24/2017 02/22/2017 02/22/2017 04/02/2024 9:[address] documented as of this encounter Care Teams Irrigationist Designer Relationship Specialty Start Date End Date Yehuda Barger MD [address] [place] [address] [place] [address] [place] [address] PCP - General 02/16/09 04/13/23 Elijah Serra DO [address] [place] [address] PCP - General Family Medicine 07/21/23 Provider, Historical 02/16/16 08/25/16 Willi Templeton MD [address] [place] [address] [address] [place] [address] Gastroenterology 02/25/16 María Andre MD [address] [place] [address] Gastroenterology 03/08/16 Selene Rodriguez APRN [address] [place] [address] [address] [place] [address] Gastroenterology 08/23/16 Mariah Flowers APRN [address] [place] [address] [address] [place] [address] Nurse Practitioner 08/26/16 Neyda Beltran MD [address] [place] [address] Nephrology 03/17/17 Ryanne Roblero MD [address] [place] [address] Rheumatology 03/01/18 Mi Martin APRN [address] [place] [address] [address] [place] [id number] Nurse Practitioner Nurse Practitioner 04/16/19 Micha [place] MD [address] [place] [address] [address] [place] [address] Endocrinology 08/06/24 08/06/24 documented as of this encounter
--- OUTSIDE RECORDS SUMMARY | 2024-08-13 12:44 | XMS_ITS | Encounter Summary ---
Author Organization [email or web address] ([place], [place], [place], [place]) Address [address] [place] [address] Care Team Providers Care Taxi Dancer Name Role Phone Elijah Serra DO Primary Care Provider [phone] Encounter Details Date Type Department Care Team (Late st Contact Info) Description 07/20/2021 Transcribed Document [facility] Family Medicine [address] [place] [address] ProviderMichael MD [address] [place] [address] Social History Tobacco Use Types [...] Isolated 0 09/04 Educational Attainment Answer Date Loiverio rded Do you speak a language other than Marshallese at [facility]? No 09/05/2023 Do you want [...] Note - Historical Provider, MD - 07/20/2021 11:37 AM CDT Patient: SOLEDAD DOWD Age: 65 years Sex: Male : 1955 Associated Diagnoses: None Author: PANDA CALVIN APRN [facility] PROGRESS NOTE: DIAGNOSIS: 1. Acute HFpEF SUBJECTIVE: denies chest pain, shortness of breath, palpitations Vitals Signs (last 24 hrs) Last Charted Minimum Maximum Temp 97.4 (JUL 20 08:33) 97.4 (JUL 20 08:33) 98.1 (JUL 19 15:00) Mon HR 75 (JUL 20 08:57) 69 (JUL 19 15:00) 86 (JUL 20 01:22) Resp Rate 16 (JUL 20 08:33) 16 (JUL 12 21:08) 18 (JUL 19 18:17) SBP 133 (JUL 20 08:57) 99 (JUL 20 08:33) H 148 (JUL 19 21:08) DBP 82 (JUL 20 08:57) L 58 (JUL 20 08:33) 83 (JUL 20 06:11) MAP 96 (JUL 20 08:57) 70 (JUL 20 08:33) 105 (JUL 20 06:11) SpO2 97 (JUL 20 08:33) L 93 (JUL 19 21:08) 100 (JUL 19 15:00) Clinical Weight CLINICALWEIGHT: 91.82 kg (07/18/21 10:41:00) [place] Body Weight: 76.59 kg (07/18/21 10:41:00) Intake & Output Totals Last 24 Hours (7a-7a) Intake (3 Events) Medications (54 mL) Output (2 Events) Urine Voided (Volume) (1050 mL) Input Total: 54 mL Output Total: 1050 mL Balance: -996 mL TELE: NSR Blood Gases (Current Encounter/Past 24 Hours) No Blood Gas Results Found (Past 24 Hours) Labs (Last four charted values) WBC L 3.4 (FRANCES 13) L 3.2 (FRANCES 12) 3.6 (FRANCES 11) HB L 11.9 (FRANCES 13) L 10.8 (FRANCES 12) L 9.8 (FRANCES 11) HCT L 37.7 (FRANCES 13) L 34.3 (FRANCES 12) L 30.7 (FRANCES 11) Plt L 127 (FRANCES 13) L 129 (FRANCES 12) L 135 (FRANCES 11) Na 140 (FRANCES 13) 140 (FRANCES 12) L 128 (FRANCES 11) K 4.1 (FRANCES 13) 3.9 (FRANCES 12) 4.5 (FRANCES 11) Cl 103 (FRANCES 13) 109 (FRANCES 12) L 98 (FRANCES 11) CO2 H 33 (FRANCES 13) 27 (FRANCES 12) 24 (FRANCES 11) BUN 17 (FRANCES 13) 18 (FRANCES 12) H 40 (FRANCES 11) Cr 1.20 (FRANCES 13) H 1.40 (FRANCES 12) H 2.40 (FRANCES 11) Glu R H 304 (FRANCES 13) H 262 (FRANCES 12) C 714 (FRANCES 11) Ca 9.2 (FRANCES 13) 8.8 (FRANCES 12) 8.5 (FRANCES 11) AST 25 (FRANCES 12) ALT 25 (FRANCES 12) ALK P 103 (FRANCES 12) T Bili 0.5 (FRANCES 12) PTN 6.5 (FRANCES 12) ALB L 2.9 (FRANCES 12) ECHO Normal sized left ventricle. Normal left ventricular wall thickness. Visually estimated ejection fraction 55% +/- 5%. Normal left ventricular systolic function with normal systolic strain pattern. Normal left ventricular diastolic function. No hemodynamically significant valvular heart disease. No masses or thrombi are seen. Measurements Summary: LVEDd: 4.82 cm LVESd: 3.37 cm IVSEd: 0.94 cm AO Root:3.44 cm LVPWd: 0.78 cm Contractility Score Normal Left Ventricular contractility was noted. EXAM: Alert & Oriented, No apparent distress, up in chair, at bedside HEAD&NECK: No JVD, No carotid bruit CORONARY: RRR, S1/S2, No murmurs LUNGS: CTA/B, No rhonchi, No wheeze ABDOMEN: Soft, Non-tender, Positive Bowel sounds EXTREMITIES: No edema, No cyanosis, Pedal pulses palpable IMPRESSION/PLAN: A/C HFpEF (likely diastolic) - Echocardiogram without evidence of LV failure or wall motion abnormalities - continue with gentle diuresis and close monitoring of renal function - 2gm sodium restriction/ 2L fluid restriction - Strict I&O, daily weight - continue low dose BB - recently seen in office with hypotension, home metoprolol succinate reduced to 25mg po daily, Imdur reduced to 15mg CAD - CABG 06/2000, post CABG PCI 2009, 2016 [facility] 08/2020 severe inaja CAD with patent SVG diagonal/LAD, patent [id number]-OM1, patent SVG to distal RCA, QUAN was not utilized - continue Plavix, statin HTN - recent borderline blood pressures at home, recent falls likely associated to hypotension - recently seen in office with hypotension, home metoprolol succinate reduced to 25mg po daily, Imdur reduced to 15mg - add low dose BB today, titrate prn Likely PNA - Hospitalist managing Memory impairment - Follows with Neurology outpatient Uncontrolled DM I with retinopathy - insulin pump at home - BS > 700 on admit - IM following Hypothyroidism -noted RA - Follows with Rheumatology, outpatient HLP - Currently on statin Severe MICAELA - Currently untreated - intolerant to CPAP PVD - has not been wearing compression stockings since he retired Follow up with Rody HARRINGTON one week with blood pressure check documented in this encounter Plan of Treatment Not on file documented as of this encounter Visit Diagnoses Not on filedocumented in this encounter Care Teams Taxi Dancer Relationship Specialty Start Date End Date Elijah Serra, DO [address] [facility] [address] [place] [address] PCP - General Family Medicine 03/11/23 documented as of this encounter
--- OUTSIDE RECORDS SUMMARY | 2024-08-13 12:44 | XMS_ITS | Encounter Summary ---
Author Organization [facility] Address [address] [place] [address] Support Name Relationship Address Phone Steapn Gold Personal Relationship [address] [place] [address] Mi Glod Personal Relationship Unknown Rosalind Mai Personal Relationship Unknown [phone] Vivi Ward Personal Relationship Unknown [phone] Care Team Providers Care Marbleizing Machine Tender Name Role Phone Yehuda Barger MD Primary Care Provider [phone] [place] Crum DO Primary Care Provider Miky Benton MD Primary Care Provider [phone] Provider, Historical Unavailable Unavailable Willi Templeton MD Unavailable [phone] María Andre MD Unavailable [phone] Selene Rodriguez MATERIALS MANAGER Unavailable Mariah Flowers MATERIALS MANAGER Unavailable [phone] Neyda Beltran MD Unavailable [phone] Ryanne Roblero MD Unavailable Unavailable Mi Martin APRN Unavailable [phone] Elijah Serra DO Primary Care Provider [phone] Micha Washington MD Unavailable Encounter Details Date Type Department Care Team (Late st Contact Info) Description 04/28/2005 Historical Encounter Global Yehuda Barger MD [address] [place] [address] Social History Tobacco Use Types Packs/Day Years [...] Description 11/06/2024 11:00 AM EDT Office Visit [facility] Endocrinology [place] [address] [place], [facility] [address], [address] [place] [address] Micha Washington MD [address] [place] [address] [place] [address] Molly Figueroa PA-C [address] [place] [address] [place] [address] documented as of this encounter Visit Diagnoses Not on filedocumented in this encounter Additional Health Concerns Infection Onset Date Last Indicated Resolved Time 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 02/24/2017 02/22/2017 02/22/2017 04/02/2024 9:[address] documented as of this encounter Care Teams Marbleizing Machine Tender Relationship Specialty Start Date End Date Yehuda Barger MD [address] [place] [address] PCP - General 02/16/09 04/13/23 [place] Crum DO [address] [place] [address] PCP - General 01/08/09 02/15/09 Miky Louis MD [address] [place] [address] PCP - General 12/26/07 01/07/09 Elijah Serra DO [address] [place] [address] PCP - General Family Medicine 07/21/23 Provider, Historical 02/16/16 08/25/16 Willi Templeton MD [address] [facility] [address] [place] [address] Gastroenterology 02/25/16 María Andre MD [address] [place] [address] [address] [place] [address] Gastroenterology 03/08/16 Selene Rodriguez APRN [address] [place] [address] Gastroenterology 08/23/16 Mariah Flowers APRN [address] [place] [address] [address] [place] [address] Nurse Practitioner 08/26/16 Neyda Beltran MD [address] [facility] [address] [facility] [address] [place] [address] Nephrology 03/17/17 Ryanne Roblero MD [address] [facility] [address] [place] [address] Rheumatology 03/01/18 Mi Martin APRN [address] [place] [address] [address] [place] [id number] Nurse Practitioner Nurse Practitioner 04/16/19 Micha Washington MD [address] [place] [address] [address] [place] [address] Endocrinology 08/06/24 08/06/24 documented as of this encounter
--- OUTSIDE RECORDS SUMMARY | 2024-08-13 12:44 | XMS_ITS | Encounter Summary ---
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 No 09/05/2023 Do you want help [...] Conversion Note - Historical Provider, - 07/20/2021 3:58 PM CDT [facility] [place] [place] [id number] OBDULIO DOWD :1955 Visit Time:07/18/2021 Your Visit Summary Your Care Team Admitting Physician - SKIP ROBLES MD-INT Attending Physician - SKIP ROBLES MD-INT Primary Care Physician - ELIJAH SERRA DO-FAM Referring Physician - RAMSES GONZALEZ DO Your Diagnosis PNA (pneumonia) Acute renal failure superimposed on chronic kidney disease Dizziness Dyspnea Fall from standing Hyperglycemia Peripheral edema Skin tear of upper extremity Weakness These Are Your Goals Patient Discharge Goal Patient Discharge Goal: Home Discharge Vitals Temperature 36.6 ??C Heart Rate (Monitored) 76 Respiratory Rate 16 Blood Pressure 134/75 What to do next Instructions From Your Care Team Discharge Activity: Discharge Activity: Activity as tolerated Diet: Discharge Diet: Low sodium Fluid Restriction: Continuous Order: Yes, Over Time Period Of (hrs): 24 (hrs), Restrict Fluids To (mL): 1500 (mL) Follow-Up Appointments Follow Up with JASON BURGOS When 07/27/2021 09:45 AM EDT Where: [address] [facility] [place] [address]- Business (1) Follow Up with ELIJAH SERRA DO-FAM When 07/21/2021 01:30 PM EDT Where: [address] [place] [address]- Medications What How Much When Instructions Next Dose ferrous gluconate (ferrous gluconate 324 mg (38 mg elemental iron) oral tablet) 1 Tablet(s) Oral Every Day Pickup at [facility] tomorrow Non Formulary (Oxervate 0.002 % eye drops) 2 Drop(s) Eye Right Every 2 Hours as needed for Other (See Comment) use as directed as needed acetaminophen-hydrocodone (acetaminophen-HYDROcodone 325 mg-5 mg oral tablet) 1 Tablet(s) Oral Every 8 Hours resume home schedule aspirin (Adult Aspirin Regimen 81 mg oral delayed release tablet) 1 Tablet(s) Oral Every Day tomorrow baclofen (baclofen 10 mg oral tablet) 1 Tablet(s) Oral Two Times A Day tonight erythromycin ophthalmic (erythromycin 0.5% ophthalmic ointment) 0.5 Inch(es) Eye Right Three Times A Day tonight fluticasone nasal (fluticasone 50 mcg/ inh nasal spray) 2 [place](s) Nasal Every Day as needed for Nasal Congestion as needed gabapentin (gabapentin 600 mg oral tablet) 1 Tablet(s) Oral Three Times A Day tonight ganciclovir ophthalmic (Zirgan 0.15% ophthalmic gel) 1 Drop(s) Eye Right 5 Times A Day use as directed resume home schedule hydroxychloroquine (hydroxychloroquine 200 mg oral tablet) 2 Tablet(s) Oral Every Day tomorrow metoprolol (Metoprolol Tartrate 25 mg oral tablet) 0.5 Tablet(s) Oral Two Times A Day Pickup at [facility] [place] tonight potassium chloride (Potassium Chloride (Xtd-Huzw-Tzt M10) 10 mEq oral tablet, extended release) 1 Tablet(s) Oral Every Day tomorrow rosuvastatin (rosuvastatin 20 mg oral tablet) 1 Tablet(s) Oral At Bedtime tonight sucralfate (sucralfate 1 g oral tablet) 1 Tablet(s) Oral Before Meals and at Bedtime before supper tamsulosin (tamsulosin 0.4 mg oral capsule) 1 Capsule(s) Oral Two Times A Day tonight traZODone (traZODone 150 mg oral tablet) 1 Tablet(s) Oral At Bedtime tonight allopurinol (allopurinol 100 mg oral tablet) 1 Tablet(s) Oral Every Day tomorrow clopidogrel (clopidogrel 75 mg oral tablet) 1 Tablet(s) Oral Every Day tomorrow DULoxetine (Cymbalta 60 mg oral delayed release capsule) 1 Capsule(s) Oral Two Times A Day tonight furosemide (furosemide 40 mg oral tablet) 1 Tablet(s) Oral Every Day tomorrow levothyroxine (levothyroxine 125 mcg (0.125 mg) oral tablet) 1 Tablet(s) Oral Every Day tomorrow lisinopril (lisinopril 2.5 mg oral tablet) 1 Tablet(s) Oral Every Day tomorrow moxifloxacin ophthalmic (moxifloxacin 0.5% ophthalmic solution) 1 Drop(s) Eye Right Two Times A Day [facility] Pharmacy Information [facility] [place]: [address] [place] [address] [address] [place], [place] [id number] [phone] Take your medications faithfully. Do NOT skip [...] This Visit No Immunizations Found Education Materials Hypotension As your heart beats, it forces blood through your body. This force is called blood pressure. If you have hypotension, you have low blood pressure. When your blood pressure is too low, you may not get enough blood to your brain or other parts of your body. This may cause you to feel weak, light-headed, have a fast heartbeat, or even pass out (faint). Low blood pressure may be harmless, or it may cause serious problems. What are the causes? Blood loss. ??? Not enough water in the body (dehydration). ??? Heart problems. ??? Hormone problems. ??? . ??? A very bad infection. ??? Not having enough of certain nutrients. ??? Very bad allergic reactions. ??? Certain medicines. What increases the risk? Age. The risk increases as you get older. ??? Conditions that affect the heart or the brain and spinal cord (central nervous system). ??? Taking certain medicines. ??? Being . What are the signs or symptoms? Feeling: ? Weak. ? Light-headed. ? Dizzy. ? Tired (fatigued). ??? Blurred vision. ??? Fast heartbeat. ??? Passing out, in very bad cases. How is this treated? Changing your diet. This may involve eating more salt (sodium) or drinking more water. ??? Taking medicines to raise your blood pressure. ??? Changing how much you take (the dosage) of some of your medicines. ??? Wearing compression stockings. These stockings help to prevent blood clots and reduce swelling in your legs. In some cases, you may need to go to the hospital for: ??? Fluid replacement. This means you will receive fluids through an IV tube. ??? Blood replacement. This means you will receive donated blood through an IV tube (transfusion). ??? Treating an infection or heart problems, if this applies. ??? Monitoring. You may need to be monitored while medicines that you are taking wear off. Follow these instructions at home: Eating and drinking ??? Drink enough fluids to keep your pee (urine) pale yellow. ??? Eat a healthy diet. Follow instructions from your doctor about what you can eat or drink. A healthy diet includes: ? Fresh fruits and vegetables. ? Whole grains. ? Low-fat (lean) meats. ? Low-fat dairy products. ??? Eat extra salt only as told. Do not add extra salt to your diet unless your doctor tells you to. ??? Eat small meals often. ??? Avoid standing up quickly after you eat. Medicines ??? Take xlwp-csg-tiwtxzu and prescription medicines only as told by your doctor. ? Follow instructions from your doctor about changing how much you take of your medicines, if this applies. ? Do not stop or change any of your medicines on your own. General instructions ??? Wear compression stockings as told by your doctor. ??? Get up slowly from lying down or sitting. ??? Avoid hot showers and a lot of heat as told by your doctor. ??? Return to your normal activities as told by your doctor. Ask what activities are safe for you. ??? Do not use any products that contain nicotine or tobacco, such as cigarettes, e-cigarettes, and chewing tobacco. If you need help quitting, ask your doctor. ??? Keep all follow-up visits as told by your doctor. This is important. Contact a doctor if: ??? You throw up (vomit). ??? You have watery poop (diarrhea). ??? You have a fever for more than 2???3 days. ??? You feel more thirsty than normal. ??? You feel weak and tired. Get help right away if: ??? You have chest pain. ??? You have a fast or uneven heartbeat. ??? You lose feeling (have numbness) in any part of your body. ??? You cannot move your arms or your legs. ??? You have trouble talking. ??? You get sweaty or feel light-headed. ??? You pass out. ??? You have trouble breathing. ??? You have trouble staying awake. ??? You feel mixed up (confused). Summary ??? Hypotension is also called low blood pressure. It is when the force of blood pumping through your arteries is too weak. ??? Hypotension may be harmless, or it may cause serious problems. ??? Treatment may include changing your diet and medicines, and wearing compression stockings. ??? In very bad cases, you may need to go to the hospital. This information is not intended to replace advice given to you by your health care provider. Make sure you discuss any questions you have with your health care provider. Document Revised: 07/20/2018 Document Reviewed: 07/20/2018 [employer] Patient Education ?? 2020 [employer]. Hypertension, Adult Hypertension is another name for high blood pressure. High blood pressure forces your heart to work harder to pump blood. This can cause problems over time. There are two numbers in a blood pressure reading. There is a top number (systolic) over a bottom number (diastolic). It is best to have a blood pressure that is below 120/80. Healthy choices can help lower your blood pressure, or you may need medicine to help lower it. What are the causes? The cause of this condition is not known. Some conditions may be related to high blood pressure. What increases the risk? Smoking. ??? Having type 2 diabetes mellitus, high cholesterol, or both. ??? Not getting enough exercise or physical activity. ??? Being overweight. ??? Having too much fat, sugar, calories, or salt (sodium) in your diet. ??? Drinking too much alcohol. ??? Having long-term (chronic) kidney disease. ??? Having a family history of high blood pressure. ??? Age. Risk increases with age. ??? Race. You may be at higher risk if you are . ??? Gender. Men are at higher risk than women before age 45. After age 65, women are at higher risk than men. ??? Having obstructive sleep apnea. ??? Stress. What are the signs or symptoms? High blood pressure may not cause symptoms. Very high blood pressure (hypertensive crisis) may cause: ? Headache. ? Feelings of worry or nervousness (anxiety). ? Shortness of breath. ? Nosebleed. ? A feeling of being sick to your stomach (nausea). ? Throwing up (vomiting). ? Changes in how you see. ? Very bad chest pain. ? Seizures. How is this treated? This condition is treated by making healthy lifestyle changes, such as: ? Eating healthy foods. ? Exercising more. ? Drinking less alcohol. ??? Your health care provider may prescribe medicine if lifestyle changes are not enough to get your blood pressure under control, and if: ? Your top number is above 130. ? Your bottom number is above 80. ??? Your personal target blood pressure may vary. Follow these instructions at home: Eating and drinking ??? If told, follow the DASH eating plan. To follow this plan: ? Fill one half of your plate at each meal with fruits and vegetables. ? Fill one fourth of your plate at each meal with whole grains. Whole grains include whole-wheat pasta, brown rice, and whole-grain bread. ? Eat or drink low-fat dairy products, such as skim milk or low-fat yogurt. ? Fill one fourth of your plate at each meal with low-fat (lean) proteins. Low-fat proteins include fish, chicken without skin, eggs, beans, and tofu. ? Avoid fatty meat, cured and processed meat, or chicken with skin. ? Avoid pre-made or processed food. ??? Eat less than 1,500 mg of salt each day. ??? Do not drink alcohol if: ? Your doctor tells you not to drink. ? You are , may be , or are planning to become . ??? If you drink alcohol: ? Limit how much you use to: ? 0???1 drink a day for women. ? 0???2 drinks a day for men. ? Be aware of how much alcohol is in your drink. In the [place] one drink equals one 12 oz bottle of beer (355 mL), one 5 oz glass of wine (148 mL), or one 1?? oz glass of hard liquor (44 mL). Lifestyle ??? Work with your doctor to stay at a healthy weight or to lose weight. Ask your doctor what the best weight is for you. ??? Get at least 30 minutes of exercise most days of the week. This may include walking, swimming, or biking. ??? Get at least 30 minutes of exercise that strengthens your muscles (resistance exercise) at least 3 days a week. This may include lifting weights or doing Pilates. ??? Do not use any products that contain nicotine or tobacco, such as cigarettes, e-cigarettes, and chewing tobacco. If you need help quitting, ask your doctor. ??? Check your blood pressure at home as told by your doctor. ??? Keep all follow-up visits as told by your doctor. This is important. Medicines ??? Take jloi-lfa-voswzwj and prescription medicines only as told by your doctor. Follow directions carefully. ??? Do not skip doses of blood pressure medicine. The medicine does not work as well if you skip doses. Skipping doses also puts you at risk for problems. ??? Ask your doctor about side effects or reactions to medicines that you should watch for. Contact a doctor if you: ??? Think you are having a reaction to the medicine you are taking. ??? Have headaches that keep coming back (recurring). ??? Feel dizzy. ??? Have swelling in your ankles. ??? Have trouble with your vision. Get help right away if you: ??? Get a very bad headache. ??? Start to feel mixed up (confused). ??? Feel weak or numb. ??? Feel faint. ??? Have very bad pain in your: ? Chest. ? Belly (abdomen). ??? Throw up more than once. ??? Have trouble breathing. Summary ??? Hypertension is another name for high blood pressure. ??? High blood pressure forces your heart to work harder to pump blood. ??? For most people, a normal blood pressure is less than 120/80. ??? Making healthy choices can help lower blood pressure. If your blood pressure does not get lower with healthy choices, you may need to take medicine. This information is not intended to replace advice given to you by your health care provider. Make sure you discuss any questions you have with your health care provider. Document Revised: 10/04/2018 Document Reviewed: 10/04/2018 [employer] Patient Education ?? 2020 [employer]Me. Blood Pressure Record Sheet To take your blood pressure, you will need a blood pressure machine. You can buy a blood pressure machine (blood pressure monitor) at your clinic, drug store, or online. When choosing one, consider: ??? An automatic monitor that has an arm cuff. ??? A cuff that wraps snugly around your upper arm. You should be able to fit only one finger between your arm and the cuff. ??? A device that stores blood pressure reading results. ??? Do not choose a monitor that measures your blood pressure from your wrist or finger. Follow your health care provider's instructions for how to take your blood pressure. To use this form: ??? Get one reading in the morning (a.m.) before you take any medicines. ??? Get one reading in the evening (p.m.) before supper. ??? Take at least 2 readings with each blood pressure check. This makes sure the results are correct. Wait 1???2 minutes between measurements. ??? Write down the results in the spaces on this form. ??? Repeat this once a week, or as told by your health care provider. ??? Make a follow-up appointment with your health care provider to discuss the results. Blood pressure log Date: ??? a.m. (1st reading) (2nd reading) ??? p.m. (1st reading) (2nd reading) Date: ??? a.m. (1st reading) (2nd reading) ??? p.m. (1st reading) (2nd reading) Date: ??? a.m. (1st reading) (2nd reading) ??? p.m. (1st reading) (2nd reading) Date: ??? a.m. (1st reading) (2nd reading) ??? p.m. (1st reading) (2nd reading) Date: ??? a.m. (1st reading) (2nd reading) ??? p.m. (1st reading) (2nd reading) This information is not intended to replace advice given to you by your health care provider. Make sure you discuss any questions you have with your health care provider. Document Revised: 05/14/2020 Document Reviewed: 05/14/2020 Elsevier Patient Education ?? 2020 [employer] Inc. Heart Failure Action Plan A heart failure action plan helps you understand what to do when you have symptoms of heart failure. Follow the plan that was created by you and your health care provider. Review your plan each time you visit your health care provider. Red zone These signs and symptoms mean you should get medical help right away: ??? You have trouble breathing when resting. ??? You have a dry cough that is getting worse. ??? You have swelling or pain in your legs or abdomen that is getting worse. ??? You suddenly gain more than 2???3 lb (0.9???1.4 kg) in a day, or more than 5 lb (2.3 kg) in one week. This amount may be more or less depending on your condition. ??? You have trouble staying awake or you feel confused. ??? You have chest pain. ??? You do not have an appetite. ??? You pass out. If you experience any of these symptoms: ??? Call your local emergency services (911 in the [place] right away or seek help at the emergency department of the nearest hospital. Yellow zone These signs and symptoms mean your condition may be getting worse and you should make some changes: ??? You have trouble breathing when you are active or you need to sleep with extra pillows. ??? You have swelling in your legs or abdomen. ??? You gain 2???3 lb (0.9???1.4 kg) in one day, or 5 lb (2.3 kg) in one week. This amount may be more or less depending on your condition. ??? You get tired easily. ??? You have trouble sleeping. ??? You have a dry cough. If you experience any of these symptoms: ??? Contact your health care provider within the next day. ??? Your health care provider may adjust your medicines. Green zone These signs mean you are doing well and can continue what you are doing: ??? You do not have shortness of breath. ??? You have very little swelling or no new swelling. ??? Your weight is stable (no gain or loss). ??? You have a normal activity level. ??? You do not have chest pain or any other new symptoms. Follow these instructions at home: ??? Take kzrt-hsa-ggxqguh and prescription medicines only as told by your health care provider. ??? Weigh yourself daily. Your target weight is lb ( kg). ? Call your health care provider if you gain more than lb ( kg) in a day, or more than lb ( kg) in one week. ??? Eat a heart-healthy diet. Work with a diet and material control specialist (dietitian) to create an eating plan that is best for you. ??? Keep all follow-up visits as told by your health care provider. This is important. Where to find more information ??? [place] Heart Association: www.heart.org Summary ??? Follow the action plan that was created by you and your health care provider. ??? Get help right away if you have any symptoms in the Red zone. This information is not intended to replace advice given to you by your health care provider. Make sure you discuss any questions you have with your health care provider. Document Revised: 01/06/2018 Document Reviewed: 03/05/2017 [employer] Patient Education ?? 2020 [employer]Me. Heart Failure Exacerbation Heart failure is a condition in which the heart has trouble pumping blood. This may mean that the heart cannot pump enough blood out to the body or that the heart does not fill up with enough blood. When this happens, parts of the body do not get the blood and oxygen they need to function properly. This can cause symptoms such as breathing problems, tiredness (fatigue), swelling, and confusion. Heart failure exacerbation refers to heart failure symptoms that get worse. The symptoms may get worse suddenly or develop slowly over time. Heart failure exacerbation is a serious medical problem that should be treated right away. What are the causes? A heart failure exacerbation can be triggered by: ??? Not taking your heart failure medicines correctly. ??? Infections. ??? Eating an unhealthy diet or a diet that is high in salt (sodium). ??? Drinking too much fluid. ??? Drinking alcohol. ??? Using drugs, such as cocaine or methamphetamine. ??? Not exercising. Other causes include: ??? Other heart conditions such as an irregular heart rhythm (arrhythmia). ??? Worsening heart valve function. ??? Low blood counts (anemia). ??? Other medical problems, such as kidney failure, thyroid problems, or diabetes mellitus. Sometimes the cause of the exacerbation is not known. What are the signs or symptoms? When heart failure symptoms suddenly or slowly get worse, this may be a sign of heart failure exacerbation. Symptoms of heart failure include: ??? Shortness of breath during activity or exercise. ??? A cough that does not go away. ??? Swelling of the legs, ankles, feet, or abdomen. ??? Losing or gaining weight for no reason. ??? Trouble breathing when lying down. ??? Increased heart rate or irregular heartbeat. ??? Fatigue. ??? Feeling light-headed, dizzy, or close to fainting. ??? Nausea or lack of appetite. How is this diagnosed? This condition is diagnosed based on: ??? Your symptoms and medical history. ??? A physical exam. You may also have tests, including: ??? Electrocardiogram (ECG). This test measures the electrical activity of your heart. ??? Echocardiogram. This test uses sound waves to take a picture of your heart to see how well it works. ??? Blood tests. ??? Imaging tests, such as: ? Chest X-ray. ? MRI. ? Ultrasound. ??? Stress test. This test examines how well your heart functions while you exercise on a treadmill or exercise bike. If you cannot exercise, medicines may be used to increase your heartbeat in place of exercise. ??? Cardiac catheterization. During this test, a thin, flexible tube (catheter) is inserted into a blood vessel and threaded up to your heart. This test allows your health care provider to check the arteries that lead to your heart (coronary arteries). ??? Right heart catheterization. During this test, the pressure in your heart is measured. How is this treated? This condition may be treated by: ??? Adjusting your heart medicines. ??? Maintaining a healthy lifestyle. This includes: ? Eating a heart-healthy diet that is low in sodium. ? Not using products that contain nicotine or tobacco. ? Regular exercise. ? Monitoring your fluid intake. ? Monitoring your weight and reporting changes to your health care provider. ? Not using alcohol or drugs. ??? Treating sleep apnea, if you have this condition. ??? Surgery. This may include: ? Placing a pacemaker to improve heart function (cardiac resynchronization therapy). ? Implanting a device that can correct heart rhythm problems (implantable cardioverter defibrillator). ? Implanting a pulmonary arterial pressure monitor to monitor your fluid balance. ? Connecting a device to your heart to help it pump blood (ventricular assist device). ? Heart transplant. Follow these instructions at home: Medicines ??? Take yzqm-rwc-vvzahnb and prescription medicines only as told by your health care provider. ??? Do not stop taking your medicines or change the amount you take. If you are having problems or side effects from your medicines, talk to your health care provider. ??? If you are having difficulty paying for your medicines, contact a social media marketing specialist or your clinic. There are many programs to assist with medicine costs. ??? Talk to your health care provider before starting any new medicines or supplements. ??? Make sure your health care provider and pharmacist have a list of all the medicines you are taking. Eating and drinking ??? Avoid drinking alcohol. ??? Eat a heart-healthy diet as told by your health care provider. This includes: ? Plenty of fruits and vegetables. ? Lean proteins. ? Low-fat dairy. ? Whole grains. ? Foods that are low in sodium. Activity ??? Exercise regularly as told by your health care provider. Balance exercise with rest. ??? Ask your health care provider what activities are safe for you. This includes sexual activity, exercise, and daily tasks at home or work. Lifestyle ??? Do not use any products that contain nicotine or tobacco. These products include cigarettes, chewing tobacco, and vaping devices, such as e-cigarettes. If you need help quitting, ask your health care provider. ??? Maintain a healthy weight. Ask your health care provider what weight is healthy for you. ??? Consider joining a patient support group. This can help with emotional problems you may have, such as stress and anxiety. ??? Do not use drugs. General instructions ??? Stay up to date with vaccines. Talk to your health care provider about flu and pneumonia vaccines. ??? Keep a list of medicines that you are taking. This may help in emergency situations. ??? Keep all follow-up visits. This is important. Contact a health care provider if: ??? You have questions about your medicines or you miss a dose. ??? You feel anxious, depressed, or stressed. ??? You develop swelling in your feet, ankles, legs, or abdomen. ??? You develop a cough. ??? You have a fever. ??? You have trouble sleeping. ??? You gain 2???3 lb (1???1.4 kg) in 24 hours or 5 lb (2.3 kg) in a week. Get help right away if: ??? You have chest pain or pressure. ??? You have shortness of breath while resting. ??? You have severe fatigue. ??? You are confused. ??? You have severe dizziness. ??? You have a rapid or irregular heartbeat. ??? You have nausea or you vomit. ??? You have a cough that is worse at night or you cannot lie flat. ??? You have severe depression or sadness. These symptoms may represent a serious problem that is an emergency. Do not wait to see if the symptoms will go away. Get medical help right away. Call your local emergency services (911 in the [place] Do not drive yourself to the hospital. Summary ??? When heart failure symptoms get worse, it is called heart failure exacerbation. ??? Common causes of this condition include taking medicines incorrectly, infections, and drinking alcohol. ??? This condition may be treated by adjusting medicines, maintaining a healthy lifestyle, or surgery. ??? Do not stop taking your medicines or change the amount you take. If you are having problems or side effects from your medicines, talk to your health care provider. This information is not intended to replace advice given to you by your health care provider. Make sure you discuss any questions you have with your health care provider. Document Revised: 08/16/2020 Document Reviewed: 08/16/2020 [employer] Patient Education ?? 2020 [employer] GUIDELINES FOR A HEART HEALTHY DIET TO LOWER CHOLESTEROL AND/OR TRIGLYCERIDES A HEART HEALTHY DIET means eating a well balanced diet that is limited in cholesterol, fat, sodium, sugar and caffeine to control the risk factors that lead to heart disease. --Cholesterol intake in your diet should be limited to 300 Milligrams or less per day. Cholesterol is a white waxy substance that comes from our diet and is also made by our body. Foods that will raise the cholesterol in our blood are those that generally come from animal source --Triglycerides are another type of fat that build up in the bloodstream and may lead to blockage of blood vessels. Foods that will raise the level of triglycerides in our blood include those that come from animal or saturated fat and excessive intake of carbohydrates(sugar). --The amount of fat that we eat in our diet is just as important as what kind of fat that we eat. Fat intake should be no more than approximately 55 grams per day for females and 65-70 grams for males --Sodium may affect your blood pressure and/or cause excessive fluid to build up in the tissues of your body. It is recommended that you limit your sodium intake to 2,000 milligrams per day. The main intake of sodium in our diet comes from the salt that we add to our food at the table and in processed foods. --Caffeine is a stimulant that is found in such foods as coffee, tea, cola beverages and chocolate. Caffeine can speed up the heartbeat or may cause irregular heart beats. It is recommended that caffeine intake be limited in your diet The following guidelines will help you to reduce the cholesterol, triglycerides, fat and sodium in your diet: MILK AND DAIRY PRODUCTS Recommended serving-2 or more for adults and children 2-10 years, 3-4 servings for ages 11-24 CHOOSE milk products that contain 1% or less fat content. Good choices include skim milk, milk with 0-1% fat content, evaporated skim milk, cultured buttermilk made from skim milk, nonfat or low fat cultured yogurt or frozen yogurt and sugar free hot chocolate mixes made with cocoa and skim milk solids. Cheese is considered low in fat if it contains 5 grams of fat or less per ounce (natural or processed). Dry curd, skim or low fat cottage cheese is a good choice. Use fat free or low fat cream cheese or sour cream with moderation at the table and in cooking. AVOID 2% and whole milk, evaporated whole milk, churned buttermilk (butterflake), cheese containing more than 5 grams of fat per ounce, cottage cheese with 4 % fat content, regular cream cheese and sour cream. --1 Serving of milk is equal to one 8 ounce cup of milk, one 8 ounce cup of yogurt, one ounce of low fat cheese or ?? cup low fat cottage cheese. MEET, FISH AND POULTRY Recommended serving 6-9 ounces of cooked meat CHOOSE fish, chicken, turkey, rodriguez, veal, lean cuts of beef (round, sirloin, and loin), center cut pork (tenderloin, loin chops), wild game (rabbit, venison, pheasant, and duck without skin), shellfish, low fat luncheon meats (limit 1-2 servings per week because of the high sodium content), peanut butter (limit to 2 tablespoons once or twice per week). AVOID high fat meats such as wagner, sausage, country ham, luncheon meats, hot dogs, canned meats, Spring sausage --Limit meat portions to no more than 6-9 ounces of cooked meat per day. --A 3 ounce portion of meats equals -A piece of cooked meat the size of a deck of cards -?? cup of flaked fish -A slice of lean meat, ?? inch thick and the size of a woman???s palm -A piece of meat that weighs approximately 4 ounces raw, will weigh about 3 ounces cooked -Buy ???choice?? or ???select?? grades of beef rather than ???prime?? . Trim off all the fat before cooking meat and choose to broil, bake, roast, grill or stir-key rather than frying. -Remove poultry skin before cooking. -Shrimp and crayfish are high in cholesterol but low in total fat and saturated fat. These may be included in your diet in moderation. -Juices from cooked meats and poultry may be used if the fat is drained or skimmed off. This may be done by refrigerating the broth until the fat hardens and then removing it from the tip. The broth may be used to make gravies and flavor soups. -Organ meats are high in cholesterol but also a good source of iron and vitamins. A 3 ounce serving once a month may be included in your diet or you may also choose to substitute a 3 ounce portion for an egg occasionally. - When choosing dinners and entrees in the frozen food section of your grocery, select those that are made for low fat, low cholesterol, low sugar and limited sodium diets. EGGS LIMIT egg yolks to no more than 3-4 per week. An egg yolk has approximately 220 milligram of cholesterol.Low cholesterol egg substitute and egg whites may be eaten as desired in your diet. --Any eggs used in cooking or found in store bought foods should be counted as part of your egg allowance. The amount of egg yolk that you would get from baked items in a period of a week would be equal to about one egg. --In cooking, you may substitute ?? cup egg substitute or 2 egg whites for 1 egg in a recipe. --You may choose to make your own egg substitute by beating together 2 egg whites, 2 tablespoons of nonfat dry milk powder and a couple drops of yellow food coloring. This is equal to 1 egg. BREADS, CEREALS, AND PASTA Recommended Serving 6-11 per day CHOOSE white, wheat or rye breads, plain breadsticks, [place]ish muffins, hamburger buns, plain bagels, plain cake doughnuts, mery breads, baked flours or corn tortillas, crackers including coty, animal, saltine, oyster and matzo, snacks including unsalted pretzels, popcorn, baked tortilla chips or potato chips. Homemade breads (biscuits, muffins, cornbread, rolls, pancakes and sammarinese toast) should be made with oils low in saturated fat, 1% or less fat milk, and egg whites or egg substitutes. Unsweetened dry and cooked cereals are good breakfast choices. All types of rice and pasta are allowed. Reduced sodium/low fat soups are preferred choices when choosing canned soups. AVOID sugar coated cereals, glazed or sugar coated doughnuts, breakfast pastries --1 serving is equal to 1 slice of bread, ?? hamburger bun, ?? cup nugget cereal, 1 cup dry/flaked cereal, ?? cup cooked cereal, ?? cup cooked rice or pasta, 1 cup low fat soup or ?? cup starchy vegetables. --Fiber in your diet is important and may help to reduce cholesterol levels. Whole grain breads and starches, dried beans and peas, fresh fruits and vegetables are excellent sources of fiber. --In the grocery store and bakery, carefully choose prepared products such as muffins, frozen sammarinese toast and waffles, biscuits, croissants and other bread products. These can often have high fat content, so read the label carefully. --Many brands of unsalted top crackers and snack foods are available to help you control sodium in your diet. --Choose sauces for pasta carefully. Avoid creamy sauces such as merrill unless you have prepared it at home with allowed ingredients. Tomato based sauces are generally the best choice when eating out. --Canned soups, dry soup mixes, broth and bouillon cubes are very high in sodium content so always look for the low sodium or reduced sodium varieties. These are good to add when cooking rice, pastas, soups and vegetables to add flavor. VEGETABLES AND FRUITS Recommended serving 5 or more per day CHOOSE a wide variety of fresh vegetables and fruits in your diet. Vegetables and fruits are excellent sources of vitamins, minerals and fiber in our diet. They contain no cholesterol, are very low in fat, calories and sodium if you are careful about seasoning them during cooking. Fruits should be fresh, frozen or canned without sugar. AVOID vegetables that have been prepared with ham hocks, seasoned meats and wagner grease. Avoid creamed vegetables unless they have been prepared with low fat milk products and margarine. Coconut is high in saturated fat and should be avoided. --1 serving is equal to 1 medium size fresh fruit, ?? cup juice, ?? cup cooked or 1 cup raw vegetables. --Fruits contain simple sugar and may affect your triglyceride level. It is recommended that your fruit servings be limited to 3-4 servings per day. If you have diabetes, fruits should be limited to this amount and always be eaten with the meal. --Steaming vegetables helps to retain the vitamin and mineral content of vegetables. When you boil vegetables in water, you will lose some of the nutritional value of the food. --When seasoning try low sodium broths and bouillons, artificial wagner bits, small amounts of low saturated oil margarine or spices and herbs to perk up the flavor of your vegetables. --Fresh or frozen packaged vegetables are lower in sodium than the canned variety. FATS AND OILS Recommended serving-limit to no more than 5-8 per day depending on calorie needs CHOOSE vegetable oils and margarine that are low in saturated fat (no more than 2 grams of saturated fat per tablespoon) such as canola, safflower, sunflower or corn oil. Fat free or low fat salad dressings are good choices (they should contain no more than 1 gram of saturated fat per tablespoon) AVOID wagner grease, lard, high fat seasoning meats such as ham hocks and salt pork, vegetable shortening, blue cheese dressing and other creamy style dressing that may be high in total fat content and saturated fat, coconut and palm kernel oil. --1 serving is equal to 1 teaspoon margarine or vegetable oil, 2 teaspoons reduced fat margarine, 1 tablespoon salad dressing, 2 teaspoons mayonnaise, 1 tablespoon of seeds or nuts. ? avocado, 10 small or 6 large olives --Limit the intake of higher fat foods such as avocados and olives. Olives are also high in sodium content. ? avocado, 10 small or 5 large olives is considered a serving. --[place] oil and peanut oil are higher in monounsaturated fats, but also contain saturated fat. It is recommended these be used in specialty dishes and not as a routine cooking oils. Limited amounts of canola, safflower, sunflower or corn oil are better choices for preparation of foods on a daily basis. --Use fats and oils sparingly in your diet. There are many choices of fat free and low fat margarine that may be used in cooling and for use at the table. --If a margarine or fat is soft or liquid at room temperature, then it will be lower in saturated fat and be a better choice than one which is hard at room temperature. --Use low fat cooking sprays in preparing your food and cut back on the amount of fat you consume. --Always choose methods of cooking that will reduce the amount of fat you use. Baking, broiling, roasting, grilling,and stir frying will help reduce your fat intake. DESSERTS CHOOSE unsweetened low fat yogurt with fruit, frozen low fat yogurt, sherbet*, fat free ice cream*, unsweetened flavored gelatins, sugar free frozen popsicles and dessert bars, kendra food cake*, parker snaps*, reduced fat/low sugar varieties of cookies*, fruit (refer to the fruit and vegetable section) (* These dessert items should be limited to one serving per day) AVOID ice cream, rich desserts made with high fat ingredients such as sour cream, cream cheese, butter, whipping cream, chocolate and desserts with a high sugar content. --Chocolate may be eaten in moderation. For a chocolate craving, substitute cocoa powder for baking chocolate in your recipes. All fat has been removed from cocoa powder. --Homemade desserts made with appropriate recipe substitutions (margarine or oils low in saturated fat, milk with 1 % or less fat content, egg whites or egg substitutes, sugar substitute) are good choices in moderation. --On ingredient labels, words that end in -ose or -ol mean sugar. These will include sorbitol, mannitol,xylitol, fructose and dextrose and should be consumed in limited amounts. MISCELLANEOUS CHOOSE in moderation sugar free jellies and jams and sugar free syrup. Always use a sugar substitute in place of sugar. Any herbs or spices that do not contain salt are great for perking up the flavor of meats, pastas and vegetables. AVOID the use of salt other than small amounts in cooking. Taco sauces, soy sauce, steak sauce, pickles, ketchup, mustard and marinades are high sources of sodium in your diet. There are many varieties of low sodium or reduced sodium condiments available that may be used in the place of the higher sodium items BEVERAGES CHOOSE unsweetened beverages with limited caffeine content. Unsweetened coffee, tea, chocolate, and cola beverages contain caffeine which may speed up the beating of your heart or cause irregular heart beats. Try to limit caffeinated, sugar free beverages to 2 servings per day and anything more than this amount choose decaffeinated, sugar free beverages. A serving is 8 ounces. ALCOHOL If you choose to drink alcohol, always check with your doctor first. Alcohol may cause your triglycerides to increase. It may also interact with some of the medications you are taking and can cause adverse effects. If your doctor does approve the use of alcohol for you, limit the amount to 1-2 servings per day. The amounts listed below are equal to 1 serving and may be exchanged for a serving from the breads, cereals, and pasta group. 1 ounce gin, rum, vodka, whiskey 1 ?? ounces sweet or dessert wine 5 ounces beer 2 ?? ounces dry table wine If you have any questions after reading these guidelines for a heart healthy diet, please call the registered dietitians at [facility] at or . We will be happy to answer your questions or set up an appointment for individual counseling. . FLUID-RESTRICTED NUTRITION THERAPY What Counts as Fluid? Any beverage you drink ???Water ? Coffee ? Tea ? Soda pop ? Sports drinks ? Milk ? Liquid creamer ? Juice ? Fruit-flavored drinks, lemonade, punch ??? Juicy fruits or vegetables ? 1 cup juicy fruit/veg = ?? cup fluid ? Melons (watermelon, cantaloupe, honeydew, etc.) ? Berries (strawberries, blueberries, raspberries, blackberries, etc.) ? Tomatoes ? Cucumbers ? Nutrition supplements like Ensure or Boost ? Liquid medicine ? Alcohol ??? Fluids that are part of a food ? Soup ? Sauces ? Gravies ? Pudding ? Yogurt ? Salad dressing ? Syrup ??? Foods that will melt down to a liquid ? Gelatin ? Ice cream ? Frozen yogurt ? Sherbet ? Milkshakes/smoothies ? Popsicles ? Ice cubes ? 1 cup ice cubes/chips = ?? cup fluid melted Helpful Hints ??? Fluids you use to take medications must also be counted in your fluid restriction. ??? Keep a fluid log. ? Record your daily fluid intake. ? Make sure you know how much fluid your cups, bowls, mugs, and glasses hold. -Each time you eat or drink fluids, pour water in the same amount into an empty container that can hold the same amount of fluids you are allowed daily. This may help you track of how much fluid you are taking in throughout the day. ??? Weigh yourself daily. A rapid change in weight can be the result of fluid gain or loss. Fluid Measurements ??? 1 ounce (oz) = 30 mls (milliliter) = 2 tablespoons ??? 1 cup = 8 oz = 240 mls ??? 4 cups = 32 oz = 1 quart = 960 mls ??? 1000 milliliters = 1 liter = 32 ounces =4 cups ( 24 hour restriction) 2000 milliliters = 2 Liters =67 ounces= 8 ? cups ??? 48 oz = 6 cups = 1 ?? quarts = 1440 ml ??? 64 oz = 8 cups = 2 quarts = ?? gallon = 1920 ml Tips to reduce thirst and alleviate dry mouth ??? --Keep hard candies, mints and gum available. -Some people find sugar-free varieties to be more thirst quenching. --[place] your teeth. --Chill mouthwash and gargle for a fresh feeling. --Rinse your mouth with water (no swallowing). --Prepare a measured amount of ice cubes to suck on. --Flavor your drink with lemon juice, if desired. This will count as some of your fluid amount, but will last longer and be more refreshing than a similar amount of fluid to drink. --Add lemon or cucumber to your water to help quench your thirst --Suck on a lemon slice. --Freeze or partially freeze pieces of fruit for a refreshing treat: like lemon wedges, orange sections, peaches, berries, or grapes. --Try chilled applesauce. --Breathe through your nose and not your mouth. --Avoid mid-day heat. Heart Failure, Diagnosis Heart failure means that your heart is not able to pump blood in the right way. This makes it hard for your body to work well. Heart failure is usually a long-term (chronic) condition. You must take good care of yourself and follow your treatment plan from your doctor. What are the causes? High blood pressure. ??? Buildup of cholesterol and fat in the arteries. ??? Heart attack. This injures the heart muscle. ??? Heart valves that do not open and close properly. ??? Damage of the heart muscle. This is also called cardiomyopathy. ??? Infection of the heart muscle. This is also called myocarditis. ??? Lung disease. What increases the risk? Getting older. The risk of heart failure goes up as a person ages. ??? Being overweight. ??? Being male. ??? Use tobacco or nicotine products. ??? Abusing alcohol or drugs. ??? Having taken medicines that can damage the heart. ??? Having any of these conditions: ? Diabetes. ? Abnormal heart rhythms. ? Thyroid problems. ? Low blood counts (anemia). ??? Having a family history of heart failure. What are the signs or symptoms? Shortness of breath. ??? Coughing. ??? Swelling of the feet, ankles, legs, or belly. ??? Losing or gaining weight for no reason. ??? Trouble breathing. ??? Waking from sleep because of the need to sit up and get more air. ??? Fast heartbeat. ??? Being very tired. ??? Feeling dizzy, or feeling like you may pass out (faint). ??? Having no desire to eat. ??? Feeling like you may vomit (nauseous). ??? Peeing (urinating) more at night. ??? Feeling confused. How is this treated? This condition may be treated with: ??? Medicines. These can be given to treat blood pressure and to make the heart muscles stronger. ??? Changes in your daily life. These may include: ? Eating a healthy diet. ? Staying at a healthy body weight. ? Quitting tobacco, alcohol, and drug use. ? Doing exercises. ? Participating in a cardiac rehabilitation program. This program helps you improve your health through exercise, education, and counseling. ??? Surgery. Surgery can be done to open blocked valves, or to put devices in the heart, such as pacemakers. ??? A donor heart (heart transplant). You will receive a healthy heart from a donor. Follow these instructions at home: ??? Treat other conditions as told by your doctor. These may include high blood pressure, diabetes, thyroid disease, or abnormal heart rhythms. ??? Learn as much as you can about heart failure. ??? Get support as you need it. ??? Keep all follow-up visits. Summary ??? Heart failure means that your heart is not able to pump blood in the right way. ??? This condition is often caused by high blood pressure, heart attack, or damage of the heart muscle. ??? Symptoms of this condition include shortness of breath and swelling of the feet, ankles, legs, or belly. You may also feel very tired or feel like you may vomit. ??? You may be treated with medicines, surgery, or changes in your daily life. ??? Treat other health conditions as told by your doctor. This information is not intended to replace advice given to you by your health care provider. Make sure you discuss any questions you have with your health care provider. Document Revised: 08/16/2020 Document Reviewed: 08/16/2020 [employer] Patient Education ?? 2020 [employer]. Community-Acquired Pneumonia, Adult Pneumonia is an infection of the lungs. It causes irritation and swelling in the airways of the lungs. Mucus and fluid may also build up inside the airways. This may cause coughing and trouble breathing. One type of pneumonia can happen while you are in a hospital. A different type can happen when you are not in a hospital (community-acquired pneumonia). What are the causes? This condition is caused by germs (viruses, bacteria, or fungi). Some types of germs can spread from person to person. Pneumonia is not thought to spread from person to person. What increases the risk? You are more likely to develop this condition if: ??? You have a long-term (chronic) disease, such as: ? Disease of the lungs. This may be chronic obstructive pulmonary disease (COPD) or asthma. ? Heart failure. ? Cystic fibrosis. ? Diabetes. ? Kidney disease. ? Sickle cell disease. ? HIV. ??? You have other health problems, such as: ? Your body's defense system (immune system) is weak. ? A condition that may cause you to breathe in fluids from your mouth and nose. ??? You had your spleen taken out. ??? You do not take good care of your teeth and mouth (poor dental hygiene). ??? You use or have used tobacco products. ??? You travel where the germs that cause this illness are common. ??? You are near certain animals or the places they live. ??? You are older than 65 years of age. What are the signs or symptoms? Symptoms of this condition include: ??? A cough. ??? A fever. ??? Sweating or chills. ??? Chest pain, often when you breathe deeply or cough. ??? Breathing problems, such as: ? Fast breathing. ? Trouble breathing. ? Shortness of breath. ??? Feeling tired (fatigued). ??? Muscle aches. How is this treated? Treatment for this condition depends on many things, such as: ??? The cause of your illness. ??? Your medicines. ??? Your other health problems. Most adults can be treated at home. Sometimes, treatment must happen in a hospital. ??? Treatment may include medicines to kill germs. ??? Medicines may depend on which germ caused your illness. Very bad pneumonia is rare. If you get it, you may: ??? Have a machine to help you breathe. ??? Have fluid taken away from around your lungs. Follow these instructions at home: Medicines ??? Take pcnm-szb-bbjoohd and prescription medicines only as told by your doctor. ??? Take cough medicine only if you are losing sleep. Cough medicine can keep your body from taking mucus away from your lungs. ??? If you were prescribed an antibiotic medicine, take it as told by your doctor. Do not stop taking the antibiotic even if you start to feel better. Lifestyle ??? Do not drink alcohol. ??? Do not use any products that contain nicotine or tobacco, such as cigarettes, e-cigarettes, and chewing tobacco. If you need help quitting, ask your doctor. ??? Eat a healthy diet. This includes a lot of vegetables, fruits, whole grains, low-fat dairy products, and low-fat (lean) protein. General instructions ??? Rest a lot. Sleep for at least 8 hours each night. ??? Sleep with your head and neck raised. Put a few pillows under your head or sleep in a reclining chair. ??? Return to your normal activities as told by your doctor. Ask your doctor what activities are safe for you. ??? Drink enough fluid to keep your pee (urine) pale yellow. ??? If your throat is sore, rinse your mouth often with salt water. To make salt water, dissolve ?1 tsp (3???6 g) of salt in 1 cup (237 mL) of warm water. ??? Keep all follow-up visits as told by your doctor. This is important. How is this prevented? You can lower your risk of pneumonia by: ??? Getting the pneumonia shot (vaccine). These shots have different types and schedules. Ask your doctor what works best for you. Think about getting this shot if: ? You are older than 65 years of age. ? You are 19???65 years of age and: ? You are being treated for cancer. ? You have long-term lung disease. ? You have other problems that affect your body's defense system. Ask your doctor if you have one of these. ??? Getting your flu shot every year. Ask your doctor which type of shot is best for you. ??? Going to the dentist as often as told. ??? Washing your hands often with soap and water for at least 20 seconds. If you cannot use soap and water, use hand web press operator assistant. Contact a doctor if: ??? You have a fever. ??? You lose sleep because your cough medicine does not help. Get help right away if: ??? You are short of breath and this gets worse. ??? You have more chest pain. ??? Your sickness gets worse. This is very serious if: ? You are an older adult. ? Your body's defense system is weak. ??? You cough up blood. These symptoms may be an emergency. Do not wait to see if the symptoms will go away. Get medical help right away. Call your local emergency services (911 in the [place] Do not drive yourself to the hospital. Summary ??? Pneumonia is an infection of the lungs. ??? Community-acquired pneumonia affects people who have not been in the hospital. Certain germs can cause this infection. ??? This condition may be treated with medicines that kill germs. ??? For very bad pneumonia, you may need a hospital stay and treatment to help with breathing. This information is not intended to replace advice given to you by your health care provider. Make sure you discuss any questions you have with your health care provider. Document Revised: 11/06/2019 Document Reviewed: 11/06/2019 [employer] Patient Education ?? 2020 [employer]. metoprolol (oral/injection) (me TOE pro lol) Kapspargo Sprinkle, Lopressor, Metoprolol Succinate ER, Metoprolol Tartrate, Toprol-XL What is the most important information I should know about metoprolol? You should not use this medicine if you have a serious heart problem (heart block, sick sinus syndrome, slow heart rate), severe circulation problems, severe heart failure, or a history of slow heart beats that caused fainting. What is metoprolol? Metoprolol is a beta-david that affects the heart and circulation (blood flow through arteries and veins). Metoprolol is used to treat angina (chest pain) and hypertension (high blood pressure). It is also used to lower your risk of or needing to be hospitalized for heart failure. Metoprolol injection is used during the early phase of a heart attack to lower the risk of . Metoprolol may also be used for other purposes not listed in this medication guide. What should I discuss with my healthcare provider before taking metoprolol? You should not use this medicine if you are allergic to metoprolol, or other beta-blockers (atenolol, carvedilol, labetalol, nadolol, nebivolol, propranolol, sotalol, and others), or if you have: ?? a serious heart problem such as heart block, sick sinus syndrome, or slow heart rate; ?? severe circulation problems; ?? severe heart failure (that required you to be in the hospital); or ?? a history of slow heart beats that have caused you to faint. Tell your doctor if you have ever had: ?? asthma, chronic obstructive pulmonary disease (COPD), sleep apnea, or other breathing disorder; ?? diabetes (taking metoprolol may make it harder for you to tell when you have low blood sugar); ?? liver disease; ?? congestive heart failure; ?? problems with circulation (such as Raynaud's syndrome); ?? a thyroid disorder; or ?? pheochromocytoma (tumor of the adrenal gland). Do not give this medicine to a child without medical advice. Tell your doctor if you are or plan to become . It is not known whether metoprolol will harm an unborn baby. However, having high blood pressure during may cause complications such as diabetes or eclampsia (dangerously high blood pressure that can lead to medical problems in both mother and baby). The benefit of treating hypertension may outweigh any risks to the baby. Ask a doctor before using this medicine if you are breast-feeding. Metoprolol can pass into breast milk and may cause dry skin, dry mouth, diarrhea, constipation, or slow heartbeats in your baby. How should I take metoprolol? Follow all directions on your prescription label and read all medication guides or instruction sheets. Your doctor may occasionally change your dose. Use the medicine exactly as directed. Metoprolol should be taken with a meal or just after a meal. Take the medicine at the same time each day. documented in this encounter Plan of Treatment Not on file documented as of this encounter Visit Diagnoses Not on filedocumented in this encounter Care Teams Granite Fabricator Relationship Specialty Start Date End Date Elijah Serra, DO [address] [facility] [address] [place] [address] PCP - General Family Medicine 03/11/23 documented as of this encounter
--- OUTSIDE RECORDS SUMMARY | 2024-08-13 12:44 | XMS_ITS | Encounter Summary ---
Author Organization [facility] Address [address] [place] [address] Support Name Relationship Address Phone Stepan Gold Personal Relationship [address] [place] [address] Mi Perrydwin Personal Relationship Unknown [phone] Roslaind Andersonill Personal Relationship Unknown [phone] Vivi Ward Personal Relationship Unknown Care Team Providers Care Store Worker Name Role Phone Yehuda Barger MD Primary Care Provider Willi Templeton MD Unavailable María Andre MD Unavailable [phone] Selene Rodriguez HAT DESIGNER Unavailable Mariah Flowers HAT DESIGNER Unavailable Neyda Beltran MD Unavailable Ryanne Roblero MD Unavailable Unavailable Mi Martin HAT DESIGNER Unavailable [phone] Elijah Serra DO Primary Care Provider Micha [place] MD Unavailable Reason for Visit * Reason Onset Date Comments Medications Refill 09/25/2020 Encounter Details Date Type Department Care Team (Late st Contact Info) Description 09/25/2020 Refill [facility] [address], [address] [place] [address] Sahara Bland LPN Medications Refill Social History Tobacco Use Types Packs/Day Years [...] Description 11/06/2024 11:00 AM EDT Office Visit [facility] [address], [address] [place] [address], [address] [place] [phone] Micha [place] MD [address] [place] [address] [address] [place], [place] [phone] Molly Figueroa PA-C [address] [place] [id number] documented as of this encounter Visit Diagnoses Not on filedocumented in this encounter Additional Health Concerns Infection Onset Date Last Indicated Resolved Time 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 02/24/2017 02/22/2017 02/22/2017 04/02/2024 9:[address] documented as of this encounter Care Teams Store Worker Relationship Specialty Start Date End Date Yehuda Barger MD [address] [place] [address] [address] [place] [address] PCP - General 02/16/09 04/13/23 Elijah Serra DO 100 [place] [address] PCP - General Family Medicine 07/21/23 Willi Templeton MD [address] [place] [address] [address] [place] [address] Gastroenterology 02/25/16 María Andre MD [address] [place] [address] [address] [place] [address] Gastroenterology 03/08/16 Selene Rodriguez APRN [address] [place] [address] 203 [place] [address] Gastroenterology 08/23/16 Mariah Flowers APRN [address] [place] [address] 510 [place] [address] Nurse Practitioner 08/26/16 Neyda Beltran MD [address] [place] [address] [address] [place] [address] Nephrology 03/17/17 Ryanne Roblero MD [address] [place] [address] [address] [facility] [place] [address] Rheumatology 03/01/18 Mi Martin APRN [address] [place] [address] [address] [place] [phone] Nurse Practitioner Nurse Practitioner 04/16/19 Micha [place] MD [address] [place] [address] [address] [place] [address] Endocrinology 08/06/24 08/06/24 documented as of this encounter
--- OUTSIDE RECORDS SUMMARY | 2024-08-13 12:44 | XMS_ITS | Encounter Summary ---
Author Organization [facility] Address [address] [place] [address] Support Name Relationship Address Phone Stepan Gold Personal Relationship [address] [place] [address] Mi Gold Personal Relationship Unknown Rosalind Mai Personal Relationship Unknown + [phone] Vivi Ward Personal Relationship Unknown [phone] Care Team Providers Care New Client Banking Services Clerk Name Role Phone Yehuda Barger MD Primary Care Provider [phone] Milton Crum DO Primary Care Provider Miky Benton MD Primary Care Provider [phone] Provider, Historical Unavailable Unavailable Willi Templeton MD Unavailable [phone] María Andre MD Unavailable [phone] Selene Rodriguez PIG STICKER Unavailable [phone] Mariah Flowers PIG STICKER Unavailable [phone] Neyda Beltran MD Unavailable [phone] Ryanne Roblero MD Unavailable Unavailable Mi Martin APRN Unavailable Elijah Serra DO Primary Care Provider [phone] Micha [place] MD Unavailable Encounter Details Date Type Department Care Team (Late st Contact Info) Description 07/03/2006 Historical Encounter Global James Connolly MD [facility] Emergency Dept. [address] [place] [address] Social History Tobacco Use Types Packs/Day Years [...] Description 11/06/2024 11:00 AM EDT Office Visit [facility] [place], [address] [place] [address], [address] [place] [phone] Micha [place] MD [address] [place] [address] [place] [id number] Molly Figueroa PA-C [address] [place] [address] [place] [address] [id number] documented as of this encounter Visit Diagnoses Not on filedocumented in this encounter Additional Health Concerns Infection Onset Date Last Indicated Resolved Time 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 02/24/2017 02/22/2017 02/22/2017 04/02/2024 9:[address] documented as of this encounter Care Teams New Client Banking Services Clerk Relationship Specialty Start Date End Date Yehuda Barger MD [address] [place] [address] [address] [facility] [place] [address] PCP - General 02/16/09 04/13/23 Milton Crum DO [address] [place] [address] [place] [address] PCP - General 01/08/09 02/15/09 Miky Louis MD [address] [place] [address] PCP - General 12/26/07 01/07/09 Elijah Serra DO 100 [place] [address] PCP - General Family Medicine 07/21/23 Provider, Historical 02/16/16 08/25/16 Willi Templeton MD [address] [place] [address] Gastroenterology 02/25/16 María Andre MD [address] [place] [address] [address] [place] [address] Gastroenterology 03/08/16 Selene Rodriguez APRN [address] [place] [address] 203 [place], [place] [address] Gastroenterology 08/23/16 Mariah Flowers APRN [address] [place] [address] [address] [place] [address] Nurse Practitioner 08/26/16 Neyda Beltran MD [address] [place] [address] [address] [place] [address] Nephrology 03/17/17 Ryanne Roblero MD [address] [address] [place] [address] Rheumatology 03/01/18 Mi Martin APRN [address] [place] [address] 102 [place] [address] Nurse Practitioner Nurse Practitioner 04/16/19 Micha [place] MD [address] [place] [address] [place], [place] [address] Endocrinology 08/06/24 08/06/24 documented as of this encounter
--- OUTSIDE RECORDS SUMMARY | 2024-08-13 12:44 | XMS_ITS | Encounter Summary ---
Author Organization [facility] Address [address] [place] [address] Support Name Relationship Address Phone Stepan Gold Personal Relationship [address] [place] [address] Mi Gold Personal Relationship Unknown Rosalind Mai Personal Relationship Unknown [phone] Vivi Ward Personal Relationship Unknown Care Team Providers Care Manpower Development Manager Name Role Phone Yehuda Barger MD Primary Care Provider Provider, Historical Unavailable Unavailable Willi Templeton MD Unavailable María Andre MD Unavailable Selene Rodriguez PHYSICAL EDUCATION PROFESSOR Unavailable Mariah Flowers PHYSICAL EDUCATION PROFESSOR Unavailable Neyda Beltran MD Unavailable Ryanne Roblero MD Unavailable Unavailable Mi Martin PHYSICAL EDUCATION PROFESSOR Unavailable [phone] Elijah Serra DO Primary Care Provider Micha [place] MD Unavailable Encounter Details Date Type Department Care Team (Late st Contact Info) Description 07/14/2016 Orders Only [facility] [place] [address] [place] [id number] Nisa Quijano, FORESTRY PILOT Social History Tobacco Use Types Packs/Day Years [...] Description 11/06/2024 11:00 AM EDT Office Visit [facility] [address] [place], [facility] [place] [address] [place] [address] Micha [place] MD [address] [place] [address] [address] [place], [place] [phone] Molly Figueroa PA-C [address] [place] [address] [address] [place], [place] [phone] documented as of this encounter Visit Diagnoses Not on filedocumented in this encounter Additional Health Concerns Infection Onset Date Last Indicated Resolved Time 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 02/24/2017 02/22/2017 02/22/2017 04/02/2024 9:[address] documented as of this encounter Care Teams Manpower Development Manager Relationship Specialty Start Date End Date Yehuda Barger MD [address] [place] [address] [address] [facility] [address] PCP - General 02/16/09 04/13/23 Elijah Serra DO 100 [place] [address] PCP - General Family Medicine 07/21/23 Provider, Historical 02/16/16 08/25/16 Willi Templeton MD [address] [place] [address] [address] [place] [address] Gastroenterology 02/25/16 María Andre MD [address] [facility] [address] [place] [address] Gastroenterology 03/08/16 Selene Rodriguez APRN [address] [place] [address] 203 [place] [address] Gastroenterology 08/23/16 Mariah Flowers APRN [address] [place] [address] [address] [place] [address] Nurse Practitioner 08/26/16 Neyda Beltran MD [address] [address] [place] [address] Nephrology 03/17/17 Ryanne Roblero MD [address] [address] [place] [address] Rheumatology 03/01/18 Mi Martin APRN [address] [place] [address] [address] [place] [phone] Nurse Practitioner Nurse Practitioner 04/16/19 Micha [place] MD [address] [place] [address] [address] [place] [address] Endocrinology 08/06/24 08/06/24 documented as of this encounter
--- OUTSIDE RECORDS SUMMARY | 2024-08-13 12:44 | XMS_ITS | Encounter Summary ---
Author Organization [employer] ([place], [place], [place], [place]) Address [address] [place] [address] Care Team Providers Care Ore Miner Name Role Phone Elijah Serra DO Primary Care Provider Encounter Details Date Type Department Care Team (Late st Contact Info) Description 07/20/2021 Transcribed Document [facility] Family Medicine [address] [place] [address] ProviderMichael MD [address] [place] [address] Social History Tobacco Use Types Packs/Day Years Used Date Smoking Tobacco: Never Assessed Utilities Answer Date Recorded In the past 12 months, has t he electric, gas, oil, or water company threatened to shut off services in your home? No 09/05/2023 Interpersonal Safety Answer Date Record ed How often does anyone, comfort waltesr family and friends, physically hurt you? Never [...] Do you speak a language other than [facility] at [facility]? No 09/05/2023 Do you want help with [...] Conversion Note - Historical Provider, - 07/20/2021 4:16 PM CDT Discharge Summary, PT Entered On: 07/20/2021 16:20 EDT Performed On: 07/20/2021 16:16 EDT by MATTHEW ASHRAF PT Student Discharge Summary Reason for Discharge : Discharge order Discharged to, Therapy : Home, with family care Discharge Equipment, PT : Cane, Walker Cane : Cane, single point Walker : Walker, front wheel MATTHEW ASHRAF PT Student - 07/20/2021 16:16 EDT Discharge Summary Comment, PT : At assessment patient was independent with sit to stands and transfers. Patient ambulated 300ft without an assistive device, however, had multiple instances of LOB which required moderate assistance from the occupational therapist to correct. PT student recommended to the patient and family that the patient begin using a rolling walker upon returning home for additional safety and stability, and then transitioning to a cane as he continues to improve. PT has reviewed and agrees. IRENE MCKENNA, PT - 07/20/2021 16:32 EDT Electronically signed by Florencia [facility] Conversion Clinical Science Liaison Cerner at 05/25/2022 6:16 PM CDT documented in this encounter Plan of Treatment Not on file documented as of this encounter Visit Diagnoses Not on filedocumented in this encounter Care Teams Ore Miner Relationship Specialty Start Date End Date Elijah Serra, DO [address] [facility] 1ST [place] [address] PCP - General Family Medicine 03/11/23 documented as of this encounter
--- OUTSIDE RECORDS SUMMARY | 2024-08-13 12:44 | XMS_ITS | Encounter Summary ---
Author Organization [facility] Address [address] [place] [address] Support Name Relationship Address Phone Stepan Gold Personal Relationship [address] [facility] [place] [address] Mi Gold Personal Relationship Unknown Rosalind Mai Personal Relationship Unknown [phone] Vivi Ward Personal Relationship Unknown Care Team Providers Care Forest Worker Name Role Phone Lesley Grace MD Primary Care Provider [phone] Provider, Historical Unavailable Unavailable Willi Templeton MD Unavailable María Andre MD Unavailable Selene Rodriguez VULCANIZING PRESS OPERATOR Unavailable Mariah Flowers VULCANIZING PRESS OPERATOR Unavailable Neyda Beltran MD Unavailable Ryanne Roblero MD Unavailable Unavailable Mi Martin VULCANIZING PRESS OPERATOR Unavailable [phone] Elijah Serra DO Primary Care Provider [phone] Micha [place] MD Unavailable Reason for Visit * Reason Onset Date Comments Results - Lab 09/02/2014 Encounter Details Date Type Department Care Team (Late st Contact Info) Description 09/02/[address] LESLEY GRACE MD, [address] [place] [address] Lesley Grace MD [address] [place] [address] [address] [facility] [place] [address] Results - Lab Social History Tobacco Use [...] Telephone Encounter - Susan Bobby MA - 09/02/2014 10:56 AM EDT Informed patient * Telephone Encounter - Susan Bobby MA - 09/02/2014 10:56 AM EDT ----- Message from Lesley Grace MD sent at 08/30/2014 12:27 PM EDT ----- Kidney function improved, go ahead and feel and start Cozaar prescription which patient has documented in this encounter Plan of Treatment Upcoming Encounters Date Type Department Care Team (Late st Contact Info) Description 11/06/2024 11:00 AM EDT Office Visit [facility] [address] [place] [address], [address] [place] [phone] Micha [place] MD [address] [facility] [place] [address] Molly Figueroa PA-C [address] [place] [address] documented as of this encounter Visit Diagnoses Not on filedocumented in this encounter Additional Health Concerns Infection Onset Date Last Indicated Resolved Time 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 02/24/2017 02/22/2017 02/22/2017 04/02/2024 9:[address] documented as of this encounter Care Teams Forest Worker Relationship Specialty Start Date End Date Lesley Grace MD [address] [place] [address] [address] [place] [address] PCP - General 02/16/09 04/13/23 Elijah Serra DO 100 [place] [address] PCP - General Family Medicine 07/21/23 Provider, Historical 02/16/16 08/25/16 Willi Templeton MD [address] [address] [place] [address] Gastroenterology 02/25/16 María Andre MD 61 [facility] [address] [place] [address] Gastroenterology 03/08/16 Selene Rodriguez APRN [address] [place] [address] Gastroenterology 08/23/16 Mariah Flowers APRN [address] [facility] [address] [place] [address] Nurse Practitioner 08/26/16 Neyda Beltran MD 613 [facility] [address] [place] [address] Nephrology 03/17/17 Ryanne Roblero MD [address] [place] [address] [address] [place] [address] Rheumatology 03/01/18 Mi Martin APRN [address] [place] [address] Nurse Practitioner Nurse Practitioner 04/16/19 Micha [place] MD [address] [place] [address] [address] [place] [address] Endocrinology 08/06/24 08/06/24 documented as of this encounter
--- OUTSIDE RECORDS SUMMARY | 2024-08-13 12:44 | XMS_ITS | Encounter Summary ---
Author Organization [employer] ([place], [place], [place], [place]) Address [address] [place] [address] Care Team Providers Care Cycle Consultant Name Role Phone Elijah Serra DO Primary Care Provider Encounter Details Date Type Department Care Team (Late st Contact Info) Description 07/20/2021 Transcribed Document [facility] Family Medicine [address] [place] [address] ProviderMichael MD [address] [place] [address] Social History Tobacco Use Types [...] you? Never 09/05/2023 How often does anyone, comofrt walters family and friends, threaten you with [...] Do you speak a language other than Latvian at [facility]? No 09/05/2023 Do you want [...] Conversion Note - Historical Provider, - 07/20/2021 4:32 PM CDT Stroke/Warfarin Instructions Entered On: 07/20/2021 16:33 EDT Performed On: 07/20/2021 16:32 EDT by Pat Santiago Rn Stroke/Warfarin Instructions Stroke/TIA Discharge Ins : Open Warfarin Discharge Ins : N/A Pat Santiago Rn - 07/20/2021 16:32 EDT Stroke/TIA Discharge Instructions Individualized Stroke Risk Factors *Q : Heart disease Stroke Education Handouts Given *Q : Yes Pat Santiago Rn - 07/20/2021 16:32 EDT Stroke Education Materials Given-Grid Activation of EMS *Q : Verbalizes understanding Follow-up Care After Discharge *Q : Verbalizes understanding Medications prescribed at DC *Q : Verbalizes understanding Risk Factors for Stroke *Q : Verbalizes understanding Warning S&S of Stroke *Q : Verbalizes understanding Pat Santiago Rn - 07/20/2021 16:32 EDT Stroke/TIA Signs/Symptoms to Report Immediately : Sudden onset difficulty speaking, Sudden onset difficulty understanding speech, Sudden onset change in vision, Sudden onset weakness particulary on one side of the body, Sudden onset numbness/tingling, Sudden severe headache, Sudden dizziness or trouble with gait, Call 9-1-1: EMS activation is crucial My LDL Level: : LDL Level No qualifying data available. Pat Santiago Rn - 07/20/2021 16:32 EDT documented in this encounter Plan of Treatment Not on file documented as of this encounter Visit Diagnoses Not on filedocumented in this encounter Care Teams Cycle Consultant Relationship Specialty Start Date End Date Elijah Serra, DO [address] [facility] 1ST [place] [address] PCP - General Family Medicine 03/11/23 documented as of this encounter
--- OUTSIDE RECORDS SUMMARY | 2024-08-13 12:44 | XMS_ITS | Encounter Summary ---
Author Organization [facility] Address [address] [place] [address] Support Name Relationship Address Phone Stepan Gold Personal Relationship [address] [place] [address] Mi Asif Personal Relationship Unknown Rosalind Andersonill Personal Relationship Unknown [phone] Vivi Ward Personal Relationship Unknown Care Team Providers Care Repair Weaver Name Role Phone Yehuda Barger MD Primary Care Provider [phone] Willi Templeton MD Unavailable María Andre MD Unavailable Selene Rodriguez BRIDGE MAINTENANCE WORKER Unavailable Mariah Flowers BRIDGE MAINTENANCE WORKER Unavailable Neyda Beltran MD Unavailable Ryanne Roblero MD Unavailable Unavailable Mi Martin BRIDGE MAINTENANCE WORKER Unavailable [phone] Elijah Serra DO Primary Care Provider Micha Washington MD Unavailable Reason for Visit * Reason Onset Date Comments Medications Refill 07/15/2022 Encounter Details Date Type Department Care Team (Late st Contact Info) Description 07/15/2022 Refill Pb Finley Yehuda Barger Primary Care [address] [place] [address] [address] [place] [address] Yehuda Barger MD [address] [place] [address] [address] [place] [address] Social History Tobacco Use Types Packs/Day Years [...] 11:00 AM EDT Office Visit [facility] [address] [place] [address], [facility] [address] [place] [phone] Micha Washington MD [address] [place] [address] [phone] Molly Figueroa PA-C [address] [place] [address] [place] [phone] documented as of this encounter Visit Diagnoses Not on filedocumented in this encounter Additional Health Concerns Infection Onset Date Last Indicated Resolved Time 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 02/24/2017 02/22/2017 02/22/2017 04/02/2024 9:[address] documented as of this encounter Care Teams Repair Weaver Relationship Specialty Start Date End Date Yehuda Barger MD [address] [place] [address] [place] [address] PCP - General 02/16/09 04/13/23 Elijah Serra DO 100 [place] [address] PCP - General Family Medicine 07/21/23 Willi Templeton MD [address] [place] [address] [address] [place] [address] Gastroenterology 02/25/16 María Andre MD [address] [place] [address] [address] [place] [address] Gastroenterology 03/08/16 Selene Rodriguez APRN [address] [place] [address] 203 [place] [address] Gastroenterology 08/23/16 Mariah Flowers APRN [address] [place] [address] 510 [place] [address] Nurse Practitioner 08/26/16 Neyda Beltran MD [address] [place] [address] [address] [place] [address] Nephrology 03/17/17 Ryanne Roblero MD [address] [place] [address] [address] [place] [address] Rheumatology 03/01/18 Mi Martin APRN [address] [place] [address] 102 [place] [phone] Nurse Practitioner Nurse Practitioner 04/16/19 Micha Wasihngton MD [address] [place] [address] [address] [place] [address] Endocrinology 08/06/24 08/06/24 documented as of this encounter
--- OUTSIDE RECORDS SUMMARY | 2024-08-13 12:44 | XMS_ITS | Encounter Summary ---
Author Organization [facility] Address [address] [place] [address] Support Name Relationship Address Phone Stepan Gold Personal Relationship [address] [facility] [place] [address] Mi Asif Personal Relationship Unknown Rosalind Mai Personal Relationship Unknown [phone] Vivi Ward Personal Relationship Unknown [phone] Care Team Providers Care Industrial Production Manager Name Role Phone Lesley Grace MD Primary Care Provider [phone] Willi Templeton MD Unavailable María Andre MD Unavailable [phone] Selene Rodriguez AUDIT INTERN Unavailable Mariah Flowers AUDIT INTERN Unavailable Neyda Beltran MD Unavailable Ryanne Roblero MD Unavailable Unavailable Mi Martin AUDIT INTERN Unavailable [phone] Elijah Serra DO Primary Care Provider [phone] Micha Washington MD Unavailable Reason for Visit * Reason Onset Date Comments Medications Refill 05/08/2019 Encounter Details Date Type Department Care Team (Late st Contact Info) Description 05/08/[address] LESLEY GRACE MD, [facility] [address] [facility] [address] [place] [address] Lesley Grace MD [address] [place] [address] [place] [address] [place] [address] Neuropathy Social History Tobacco Use Types Packs/Day [...] or suspected to have Coronavirus / COVID-19? Unable to assess 05/08/2019 11:21 AM EDT documented as of this encounter Plan of Treatment Upcoming Encounters Date Type Department Care Team (Late st Contact Info) Description 11/06/2024 11:00 AM EDT Office Visit [facility] [address] [place] [address] [place], [place] [phone] Micha Washington MD [address] [place] [address] Molly Figueroa PA-C [address] [place] [address] documented as of this encounter Visit Diagnoses Diagnosis Neuropathy Mononeuritis of unspecified site documented in this encounter Additional Health Concerns Infection Onset Date Last Indicated Resolved Time 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 02/24/2017 02/22/2017 02/22/2017 04/02/2024 9:[address] documented as of this encounter Care Teams Industrial Production Manager Relationship Specialty Start Date End Date Lesley Grace MD [address] [place] [address] [place] [address] PCP - General 02/16/09 04/13/23 Elijah Serra DO 100 [place] [address] PCP - General Family Medicine 07/21/23 Willi Templeton MD [address] [place] [address] [address] [facility] [place] [address] Gastroenterology 02/25/16 María Andre MD [address] [place] [address] [address] [facility] [place] [address] Gastroenterology 03/08/16 Selene Rodriguez APRN [address] [place] [address] 203 [place] [address] Gastroenterology 08/23/16 Mariah Flowers APRN [address] [place] [address] 510 [place] [address] Nurse Practitioner 08/26/16 Neyda Beltran MD [address] [place] [address] [address] [facility] [place] [address] Nephrology 03/17/17 Ryanne Roblero MD [address] [place] [address] [address] [facility] [address] Rheumatology 03/01/18 Mi Martin APRN [address] [place] [address] 102 [place] [phone] Nurse Practitioner Nurse Practitioner 04/16/19 Micha Washington MD [address] [place] [address] [address] [place] [address] Endocrinology 08/06/24 08/06/24 documented as of this encounter
--- OUTSIDE RECORDS SUMMARY | 2024-08-13 12:44 | XMS_ITS | Encounter Summary ---
Author Organization [facility] Address [address] [place] [address] Support Name Relationship Address Phone Stepan Gold Personal Relationship [address] [facility] [place] [address] Mi Asif Personal Relationship Unknown Rosalind Andersonill Personal Relationship Unknown [phone] Vivi Ward Personal Relationship Unknown [phone] Care Team Providers Care Professor Of Pathology Name Role Phone Lesley Grace MD Primary Care Provider [phone] Willi Templeton MD Unavailable María Andre MD Unavailable [phone] Selene Rodriguez BOW MAKER Unavailable Mariah Flowers BOW MAKER Unavailable Neyda Beltran MD Unavailable Ryanne Roblero MD Unavailable Unavailable Mi Martin BOW MAKER Unavailable [phone] Elijah Serra DO Primary Care Provider [phone] Micha Washington MD Unavailable Reason for Visit * Reason Onset Date Comments Medications Refill 05/31/2017 Encounter Details Date Type Department Care Team (Late st Contact Info) Description 05/31/[address] LESLEY GRACE MD, [facility] 105 [facility] [address] [place] [address] Lesley Grace MD [address] [place] [address] [place] [address] Renal hypertension, non-vascular Social History Tobacco Use Types Packs/Day Years [...] Description 11/06/2024 11:00 AM EDT Office Visit [address], [facility] [address] [place] [phone] Micha Washington MD [address] [place] [address] [phone] Molly Figueroa PA-C [address] [place] [address] [place] [phone] documented as of this encounter Visit Diagnoses Diagnosis Renal hypertension, non-vascular Other secondary hypertension, unspecified documented in this encounter Additional Health Concerns Infection Onset Date Last Indicated Resolved Time 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 02/24/2017 02/22/2017 02/22/2017 04/02/2024 9:[address] documented as of this encounter Care Teams Professor Of Pathology Relationship Specialty Start Date End Date Lesley Grace MD [address] [place] [address] B [place] [address] PCP - General 02/16/09 04/13/23 Elijah Serra DO 100 [place] [address] PCP - General Family Medicine 07/21/23 Willi Templeton MD [address] [place] [address] Gastroenterology 02/25/16 María Andre MD [address] [place] [address] Gastroenterology 03/08/16 Selene Rodriguez APRN [address] [place] [address] 203 [place] [address] Gastroenterology 08/23/16 Mariah Flowers APRN [address] 510 [place] [address] Nurse Practitioner 08/26/16 Neyda Beltran MD [address] [place] [address] Nephrology 03/17/17 Ryanne Roblero MD [address] [place] [address] Rheumatology 03/01/18 Mi Martin APRN [address] [place] [address] 102 [place] [address] Nurse Practitioner Nurse Practitioner 04/16/19 Micha Washington MD 613 [facility] [address] [place] [address] Endocrinology 08/06/24 08/06/24 documented as of this encounter
--- OUTSIDE RECORDS SUMMARY | 2024-08-13 12:44 | XMS_ITS | Encounter Summary ---
Author Organization [facility] Address [address] [place] [address] Support Name Relationship Address Phone Stepan Gold Personal Relationship [address] [place] [address] Mi Gold Personal Relationship Unknown [phone] Rosalind Mai Personal Relationship Unknown [phone] Vivi Ward Personal Relationship Unknown [phone] Care Team Providers Care Nursery Laborer Name Role Phone Yehuda Barger MD Primary Care Provider Willi Templeton MD Unavailable [phone] María Andre MD Unavailable [phone] Selene Rodriguez CLERK ENTRY LEVEL Unavailable Mariah Flowers CLERK ENTRY LEVEL Unavailable [phone] Neyda Beltran MD Unavailable Ryanne Roblero MD Unavailable Unavailable Mi Martin CLERK ENTRY LEVEL Unavailable [phone] Elijah Serra DO Primary Care Provider Micha Washington MD Unavailable Reason for Visit * Reason Onset Date Comments Follow-up 03/31/2017 3rd post DC f/u call made per ACM. No answer. Pt. completed f/u visit yesterday, 03/29/17, with Dr. Beltran. Letter sent with my contact information asking pt. to return my call. Encounter Details Date Type Department Care Team (Late st Contact Info) Description 03/31/2017 Telephone Population Health Management [address] [place] [address] Billie Pathak RN Follow-up (3rd post DC f/u call made per ACM. No answer. Pt. completed f/u visit yesterday, 03/29/17, with Dr. Beltran. Letter sent with my contact information asking pt. to return my call. ) Social History Tobacco Use Types Packs/Day [...] Description 11/06/2024 11:00 AM EDT Office Visit [address], [address] [place] [phone] Micha Washington MD [address] [place] [phone] Molly Figueroa PA-C [address] [place] [address] [phone] documented as of this encounter Visit Diagnoses Not on filedocumented in this encounter Additional Health Concerns Infection Onset Date Last Indicated Resolved Time 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 02/24/2017 02/22/2017 02/22/2017 04/02/2024 9:[address] documented as of this encounter Care Teams Nursery Laborer Relationship Specialty Start Date End Date Yehuda Barger MD [address] [place] [address] 1947 [facility] [place] [address] PCP - General 02/16/09 04/13/23 Elijah Serra DO 100 [place] [address] PCP - General Family Medicine 07/21/23 Willi Templeton MD [address] [place] [address] [address] [place] [address] Gastroenterology 02/25/16 María Andre MD [address] [place] [address] [address] [place] [address] Gastroenterology 03/08/16 Selene Rodriguez APRN [address] [place] [address] 203 [place] [address] Gastroenterology 08/23/16 Mariah Flowers APRN [address] [place] [address] 510 [place] [address] Nurse Practitioner 08/26/16 Neyda Beltran MD [address] [place] [address] [address] [place] [address] Nephrology 03/17/17 Ryanne Roblero MD [address] [place] [address] [address] [place] [address] Rheumatology 03/01/18 Mi Martin APRN [address] [place] [address] 102 [place] [address] Nurse Practitioner Nurse Practitioner 04/16/19 Micha Washington MD [address] [place] [address] [address] [place] [address] Endocrinology 08/06/24 08/06/24 documented as of this encounter
--- OUTSIDE RECORDS SUMMARY | 2024-08-13 12:44 | XMS_ITS | Encounter Summary ---
Author Organization [facility] Address [address] [place] [address] Support Name Relationship Address Phone Stepan Gold Personal Relationship 711 02/[address] [facility] [address] Mi Asif Personal Relationship Unknown Rosalind Andersonill Personal Relationship Unknown [phone] Vivi Ward Personal Relationship Unknown Care Team Providers Care Sewage Plant Operator Name Role Phone Lesley Grace MD Primary Care Provider [phone] Willi Templeton MD Unavailable María Andre MD Unavailable Selene Rodriguez WAREHOUSE LOGISTICS MANAGER Unavailable Mariah Flowers WAREHOUSE LOGISTICS MANAGER Unavailable Neyda Beltran MD Unavailable Ryanne Roblero MD Unavailable Unavailable Mi Martin WAREHOUSE LOGISTICS MANAGER Unavailable [phone] Elijah Serra DO Primary Care Provider Micha Washington MD Unavailable Reason for Visit * Reason Onset Date Comments Medications Refill 05/23/2017 Encounter Details Date Type Department Care Team (Late st Contact Info) Description 05/23/[address] LESLEY GRACE MD, [facility] [address] [place] [address] Lesley Grace MD [address] [place] [address] [place] [address] Social History Tobacco Use Types Packs/Day Years [...] 11/06/2024 11:00 AM EDT Office Visit [facility] [address] [place] [address], [facility] [address] [place], [place] [phone] Micha Washington MD [address] [place] [address] Molly Figueroa PA-C [address] [place] [address] [place] [address] documented as of this encounter Visit Diagnoses Not on filedocumented in this encounter Additional Health Concerns Infection Onset Date Last Indicated Resolved Time 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 02/24/2017 02/22/2017 02/22/2017 04/02/2024 9:[address] documented as of this encounter Care Teams Sewage Plant Operator Relationship Specialty Start Date End Date Lesley Grace MD [address] [place] [address] [address] [place] [address] PCP - General 02/16/09 04/13/23 Elijah Serra DO 100 [place] [address] PCP - General Family Medicine 07/21/23 Willi Templeton MD [address] [place] [address] 430 [place] [address] Gastroenterology 02/25/16 María Andre MD [address] [place] [address] 430 [place] [address] Gastroenterology 03/08/16 Selene Rodriguez APRN [address] [place] [address] 203 [place] [address] Gastroenterology 08/23/16 Mariah Flowers APRN [address] [place] [address] 510 [place] [address] Nurse Practitioner 08/26/16 Neyda Beltran MD [address] [place] [address] [address] [facility] [place] [address] Nephrology 03/17/17 Ryanne Roblero MD [address] [place] [address] [address] [facility] [place] [address] Rheumatology 03/01/18 Mi Martin APRN [address] [place] [address] 102 [place] [address] Nurse Practitioner Nurse Practitioner 04/16/19 Micha Washington MD [address] [place] [address] [address] [place] [address] Endocrinology 08/06/24 08/06/24 documented as of this encounter
--- OUTSIDE RECORDS SUMMARY | 2024-08-13 12:44 | XMS_ITS | Encounter Summary ---
Author Organization [facility] Address [address] [place] [address] Support Name Relationship Address Phone Stepan Gold Personal Relationship [address] [place] [address] Mi Gold Personal Relationship Unknown Rosalind Mai Personal Relationship Unknown + [phone] Vivi Ward Personal Relationship Unknown [phone] Care Team Providers Care Porter Baggage Name Role Phone Yehuda Barger MD Primary Care Provider [phone] Milton Crum DO Primary Care Provider Miky Benton MD Primary Care Provider [phone] Provider, Historical Unavailable Unavailable Willi Templeton MD Unavailable [phone] María Andre MD Unavailable [phone] Selene Rodriguez COMMUNITY ARTS OFFICER Unavailable Mariah Flowers COMMUNITY ARTS OFFICER Unavailable [phone] Neyda Beltran MD Unavailable [phone] Ryanne Roblero MD Unavailable Unavailable Mi Martin APRN Unavailable [phone] Elijah Serra DO Primary Care Provider [phone] Micha Washington MD Unavailable Encounter Details Date Type Department Care Team (Late st Contact Info) Description 10/29/2003 Historical Encounter Global Yehuda Barger MD [address] [place] [address] Social History Tobacco Use Types Packs/Day Years [...] Description 11/06/2024 11:00 AM EDT Office Visit [facility] Endocrinology [place] [address] [place], [facility] [address], [address] [place] [address] Micha Washington MD [address] [place] [address] [place] [address] Molly Figueroa PA-C [address] [place] [address] [address] [place] [address] documented as of this encounter Visit Diagnoses Not on filedocumented in this encounter Additional Health Concerns Infection Onset Date Last Indicated Resolved Time 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 02/24/2017 02/22/2017 02/22/2017 04/02/2024 9:[address] documented as of this encounter Care Teams Porter Baggage Relationship Specialty Start Date End Date Yehuda Barger MD [address] [place] [address] PCP - General 02/16/09 04/13/23 Milton Crum DO [address] [place] [address] PCP - General 01/08/09 02/15/09 Miky Louis MD [address] [place] [address] PCP - General 12/26/07 01/07/09 Elijah Serra DO 100 [place] [address] PCP - General Family Medicine 07/21/23 Provider, Historical 02/16/16 08/25/16 Willi Templeton MD [address] [facility] [address] [place] [address] Gastroenterology 02/25/16 María Andre MD [address] [place] [address] [address] [place] [address] Gastroenterology 03/08/16 Selene Rodriguez APRN [address] [place] [address] Gastroenterology 08/23/16 Mariah Flowers APRN [address] [place] [address] 510 [place] [address] Nurse Practitioner 08/26/16 Neyda Beltran MD [address] [address] [place] [address] Nephrology 03/17/17 Ryanne Roblero MD [address] [address] [place] [address] Rheumatology 03/01/18 Mi Martin APRN [address] [place] [address] [address] [place] [phone] Nurse Practitioner Nurse Practitioner 04/16/19 Micha Washington MD [address] [place] [address] [address] [place] [address] Endocrinology 08/06/24 08/06/24 documented as of this encounter
--- OUTSIDE RECORDS SUMMARY | 2024-08-13 12:44 | XMS_ITS | Encounter Summary ---
Author Organization [facility] Address [address] [place] [address] Support Name Relationship Address Phone Stepan Gold Personal Relationship [address] [place] [address] Mi Gold Personal Relationship Unknown Rosalind Mai Personal Relationship Unknown [phone] Vivi Ward Personal Relationship Unknown Care Team Providers Care Loom Setter Fourdrinier Name Role Phone Yehuda Barger MD Primary Care Provider Willi Templeton MD Unavailable María Andre MD Unavailable [phone] Selene Rodriguez DOG WARDEN Unavailable Mariah Flowers DOG WARDEN Unavailable Neyda Beltran MD Unavailable Ryanne Roblero MD Unavailable Unavailable Mi Martin DOG WARDEN Unavailable [phone] Elijah Serra DO Primary Care Provider [phone] Micha Washington MD Unavailable Encounter Details Date Type Department Care Team (Late st Contact Info) Description 03/22/2020 Orders Only [facility] [address] [phone] Alfonso Goyal MD [address] [place] [address] Social History Tobacco Use Types Packs/Day Years [...] Description 11/06/2024 11:00 AM EDT Office Visit [facility] [address] [place] [address], [facility], [address] [place] [phone] Micha Washington MD [address] [place] [address] Molly Figueroa PA-C [address] [place] [address] documented as of this encounter Visit Diagnoses Not on filedocumented in this encounter Additional Health Concerns Infection Onset Date Last Indicated Resolved Time 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 02/24/2017 02/22/2017 02/22/2017 04/02/2024 9:[address] documented as of this encounter Care Teams Loom Setter Fourdrinier Relationship Specialty Start Date End Date Yehuda Barger MD [address] [place] [address] [place] [address] [place] [address] PCP - General 02/16/09 04/13/23 Elijah Serra DO 100 [place] [address] PCP - General Family Medicine 07/21/23 Willi Templeton MD [address] [place] [address] [address] [place] [address] Gastroenterology 02/25/16 Maraí Andre MD 613 [facility] [address] [place] [address] Gastroenterology 03/08/16 Selene Rodriguez APRN [address] [place] [address] 203 [place] [address] Gastroenterology 08/23/16 Mariah Flowers APRN [address] [place] [address] 510 [place] [address] Nurse Practitioner 08/26/16 Neyda Beltran MD [address] [place] [address] [address] [place] [address] Nephrology 03/17/17 Ryanne Roblero MD [address] [place] [address] [address] [place] [address] Rheumatology 03/01/18 Mi Martin APRN [address] [place] [address] 102 [place] [phone] Nurse Practitioner Nurse Practitioner 04/16/19 Micha Washington MD [address] [place] [address] [address] [place] [address] Endocrinology 08/06/24 08/06/24 documented as of this encounter
--- OUTSIDE RECORDS SUMMARY | 2024-08-13 12:44 | XMS_ITS | Encounter Summary ---
Author Organization [facility] Address [address] [place] [address] Support Name Relationship Address Phone Stepan Gold Personal Relationship [address] [place] [address] Mi Gold Personal Relationship Unknown Rosalind Mai Personal Relationship Unknown Vivi Ward Personal Relationship Unknown Care Team Providers Care Crop Roller Name Role Phone Yehuda Barger MD Primary Care Provider [phone] Milton Crum DO Primary Care Provider Miky Benton MD Primary Care Provider [phone] Provider, Historical Unavailable Unavailable Willi Templeton MD Unavailable [phone] María Andre MD Unavailable [phone] Selene Rodriguez COMPUTING TUTOR Unavailable Mariah Flowers COMPUTING TUTOR Unavailable [phone] Neyda Beltran MD Unavailable [phone] Ryanne Roblero MD Unavailable Unavailable Mi Martin APRN Unavailable [phone] Elijah Serra DO Primary Care Provider [phone] Micha Washington MD Unavailable Encounter Details Date Type Department Care Team (Late st Contact Info) Description 01/14/2004 Historical Encounter Global Horacio Sherman MD [address] [place] [address] Social History Tobacco Use Types Packs/Day Years [...] 11:00 AM EDT Office Visit [facility] [address], Medical [place], [address] [place] [phone] Micha Washington MD [address] [place], [place] [phone] Molly Figueroa PA-C 613 [address] [address] [place], [place] [id number] documented as of this encounter Visit Diagnoses Not on filedocumented in this encounter Additional Health Concerns Infection Onset Date Last Indicated Resolved Time 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 02/24/2017 02/22/2017 02/22/2017 04/02/2024 9:[address] documented as of this encounter Care Teams Crop Roller Relationship Specialty Start Date End Date Yehuda Barger MD [address] [place] [address] [address] [facility] [place] [address] PCP - General 02/16/09 04/13/23 Milton Crum DO [address] [place] [address] [address] [facility] [place] [address] PCP - General 01/08/09 02/15/09 Miky Louis MD [address] [facility] [place] [address] PCP - General 12/26/07 01/07/09 Elijah Serra DO 100 [place] [address] PCP - General Family Medicine 07/21/23 Provider, Historical 02/16/16 08/25/16 Willi Templeton MD [address] [place] [address] Gastroenterology 02/25/16 María Andre MD [address] [address] [place], [place] [address] Gastroenterology 03/08/16 Selene Rodriguez APRN [address] [place] [address] 203 [place] [address] Gastroenterology 08/23/16 Mariah Flowers APRN [address] [place] [address] [address] [place] [address] Nurse Practitioner 08/26/16 Neyda Beltran MD [address] [address] [place] [address] Nephrology 03/17/17 Ryanne Roblero MD [address] [place] [address] [address] [place] [address] Rheumatology 03/01/18 Mi Martin APRN [address] [place] [address] [address] [place] [phone] Nurse Practitioner Nurse Practitioner 04/16/19 Micha Washington MD [address] [place] [address] [address] [place], [place] [address] Endocrinology 08/06/24 08/06/24 documented as of this encounter
--- OUTSIDE RECORDS SUMMARY | 2024-08-13 12:44 | XMS_ITS | Encounter Summary ---
Author Organization [employer] ([place], [place], [place], [place]) Address [address] [place] [address] Care Team Providers Care Armored Car Guard Name Role Phone Elijah Serra DO Primary Care Provider [phone] Encounter Details Date Type Department Care Team (Late st Contact Info) Description 07/20/2021 Transcribed Document [facility] [address] [place] [address] ProviderMicheal MD [address] [place] [address] Social History Tobacco Use Types [...] Do you speak a language other than Danish at [facility]? No 09/05/2023 Do you want [...] Conversion Note - Historical Provider, - 07/20/2021 3:29 PM CDT Initial Discharge Planning Entered On: 07/20/2021 15:29 EDT Performed On: 07/20/2021 15:29 EDT by DEVI CLAROS Stummel Selector-Longwall Shearer Operator Initial Assessment I Emergency Contact #1 Emergency Contact #1 Relationship : spouse Identified Medical Decision Maker : self Identified Medical Decision Maker Phone : self Number of People in Class : 1 Identified Medical Decision Maker Class : self 2nd Ident. Medical Decision Maker : Stepan Gold 2nd Ident. Medical Decision Maker Secondary Number of People in Class : 2 2nd Ident. Medical Decision Maker Class : spouse Enter Doctors Name : Dr. rae Does Patient have PCP Listed? : Yes Emergency Contact #1 : DEVI Sifuentes Stummel Selector-Longwall Shearer Operator - 07/20/2021 15:31 EDT Previously Documented Living Environment : No qualifying data available. Living Situation : Home Patient Lives With : Spouse Is the Patient a Caregiver at Home? : No DEVI CLAROS Stummel Selector-Longwall Shearer Operator - 07/20/2021 15:29 EDT Initial Assessment II Sensory and Motor Deficits : None Current Home Treatments and Equipment : None DEVI CLAROS Stummel Selector-Longwall Shearer Operator - 07/20/2021 15:31 EDT Discharge Needs I Anticipated Discharge Date : 07/21/2021 EDT Anticipated Discharge To, CM : Home independently, Home with family care Current Home Treatment/Equipment : Current Home Treatment/Equipment No qualifying data available. Post Acute/Home Treatments : None Documentation Status Complete : Yes DEVI CLAROS Stummel Selector-Longwall Shearer Operator - 07/20/2021 15:31 EDT Discharge Needs II Professional Skilled Services : Professional Skilled Services No qualifying data available. Needs Assistance with Transportation : No Discharge Options Discussed with Patient : Discharge transportation, DME, Home Health Patient Discharge Goal : Home DEVI CLAROS, Stummel Selector-Longwall Shearer Operator - 07/20/2021 15:31 EDT Narrative Note Narrative Note : Patient reported that he is ADL independent and does not use DME. He reported that he had HH in the pasty after a knee replacement years ago. and denied having any discharge needs. Reported to having safe transport home. Cm will continue to follow. DEVI CLAROS Stummel Selector-Longwall Shearer Operator - 07/20/2021 15:31 EDT documented in this encounter Plan of Treatment Not on file documented as of this encounter Visit Diagnoses Not on filedocumented in this encounter Care Teams Armored Car Guard Relationship Specialty Start Date End Date Elijah Serra, DO 100 [facility] 1ST [place] [phone] PCP - General Family Medicine 03/11/23 documented as of this encounter
--- OUTSIDE RECORDS SUMMARY | 2024-08-13 12:44 | XMS_ITS | Encounter Summary ---
Author Organization [facility] Address [address] [place] [address] Support Name Relationship Address Phone Stepan Gold Personal Relationship [address] [place] [address] Mi Gold Personal Relationship Unknown [phone] Rosalind Mai Personal Relationship Unknown [phone] Vivi Ward Personal Relationship Unknown [phone] Care Team Providers Care Tire Assembler Name Role Phone Yehuda Barger MD Primary Care Provider Willi Templeton MD Unavailable [phone] María Andre MD Unavailable [phone] Selene Rodriguez BRAND ADVOCATE Unavailable Mariah Flowers BRAND ADVOCATE Unavailable [phone] Neyda Beltran MD Unavailable [phone] Ryanne Roblero MD Unavailable Unavailable Mi Martin BRAND ADVOCATE Unavailable [phone] Elijah Serra DO Primary Care Provider Micha Washington MD Unavailable Reason for Visit * Reason Onset Date Comments Follow-up 03/29/2017 2nd post DC f/u call made per ACM since most recent DC. No answer. Will continue to try to reach this pt. Encounter Details Date Type Department Care Team (Late st Contact Info) Description 03/29/2017 Telephone Population Health Management [address] [place] [phone] Billie Pathak RN Follow-up (2nd post DC f/u call made per ACM since most recent DC. No answer. Will continue to try to reach this pt. ) Social History Tobacco Use Types Packs/Day [...] 11:00 AM EDT Office Visit [facility] [address] [place], [facility] [place], [address] [place], [place] [phone] Micha Washington MD [address] [place] [address] Molly Figueroa PA-C [address] [place] [address] documented as of this encounter Visit Diagnoses Not on filedocumented in this encounter Additional Health Concerns Infection Onset Date Last Indicated Resolved Time 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 02/24/2017 02/22/2017 02/22/2017 04/02/2024 9:[address] documented as of this encounter Care Teams Tire Assembler Relationship Specialty Start Date End Date Yehuda Barger MD [address] [place] [address] [address] [facility] [place] [address] PCP - General 02/16/09 04/13/23 Elijah Serra DO 100 [place] [address] PCP - General Family Medicine 07/21/23 Willi Templeton MD [address] [place] [address] Gastroenterology 02/25/16 María Andre MD [address] [place] [address] Gastroenterology 03/08/16 Selene Rodriguez APRN [address] [place] [address] 203 [place] [address] Gastroenterology 08/23/16 Mariah Flowers APRN 613 [facility] [address] [place] [address] Nurse Practitioner 08/26/16 Neyda Beltran MD [address] [place] [address] Nephrology 03/17/17 Ryanne Roblero MD [address] [place] [address] Rheumatology 03/01/18 Mi Martin APRN [address] [place] [address] [address] [place] [address] Nurse Practitioner Nurse Practitioner 04/16/19 Micha Washington MD [address] [place] [address] [address] [place], [place] [address] Endocrinology 08/06/24 08/06/24 documented as of this encounter
--- OUTSIDE RECORDS SUMMARY | 2024-08-13 12:44 | XMS_ITS | Encounter Summary ---
Author Organization [employer] ([place], [place], [place], [place]) Address [address] [place] [address] Care Team Providers Care Pharmacist Critical Care Name Role Phone Elijah Serra DO Primary Care Provider [phone] Encounter Details Date Type Department Care Team (Late st Contact Info) Description 07/20/2021 Transcribed Document [facility] [place] Family Medicine [address] [place] [address] ProviderMichael MD [address] [place] [address] Social History Tobacco Use Types [...] Do you speak a language other than Iraqi at [facility]? No 09/05/2023 Do you want help [...] Note - Historical Provider, MD - 07/20/2021 5:00 AM CDT Chart Check - Review Order Profile Entered On: 07/20/2021 3:41 EDT Performed On: 07/20/2021 5:00 EDT by Nikia Hester, BON EMP RN Chart Check Powerplans Initiated/Discontinued as Appropriate : Yes All Active Orders Reviewed : Yes Nikia Hester, BON EMP RN - 07/20/2021 3:41 EDT Electronically signed by Florencia [facility] Conversion Plastic Products Sales Representative Cerner at 05/25/2022 6:07 PM CDT documented in this encounter Plan of Treatment Not on file documented as of this encounter Visit Diagnoses Not on filedocumented in this encounter Care Teams Pharmacist Critical Care Relationship Specialty Start Date End Date Elijah Serra, DO 100 [facility] 1ST [place] [phone] PCP - General Family Medicine 03/11/23 documented as of this encounter
--- OUTSIDE RECORDS SUMMARY | 2024-08-13 12:44 | XMS_ITS | Encounter Summary ---
Author Organization [facility] Address [address] [place] [address] Support Name Relationship Address Phone Stepan Gold Personal Relationship [address] [place] [address] Mi Gold Personal Relationship Unknown Rosalind Mai Personal Relationship Unknown [phone] Vivi Ward Personal Relationship Unknown [phone] Care Team Providers Care Gold Charmer Name Role Phone Lesley Grace MD Primary Care Provider Provider, Historical Unavailable Unavailable Willi Templeton MD Unavailable María Andre MD Unavailable Selene Rodriguez GERMINATION TESTING MANAGER Unavailable Mariah Flowers GERMINATION TESTING MANAGER Unavailable Neyda Beltran MD Unavailable Ryanne Roblero MD Unavailable Unavailable Mi Martin GERMINATION TESTING MANAGER Unavailable [phone] Elijah Serra DO Primary Care Provider Micah Washington MD Unavailable Reason for Visit * Reason Comments Other Encounter Details Date Type Department Care Team (Late st Contact Info) Description 08/14/[address] LESLEY GRACE MD, [facility] [address] [place] [address] Lesley Grace MD 105 [facility] [address] [place] [address] Social History Tobacco Use Types Packs/Day Years [...] Miscellaneous Notes * Telephone Encounter - Sapphire Mary - 08/14/2014 11:43 AM EDT Pt saw you on 08-13-14 @ 1:45 * Telephone Encounter - [place]app[facility] Mary - 08/14/2014 11:43 AM EDT ----- Message from Lesley Grace MD sent at 08/04/2014 2:52 PM EDT ----- Patient need appointmentat his convience documented in this encounter Plan of Treatment Upcoming Encounters Date Type Department Care Team (Late st Contact Info) Description 11/06/2024 11:00 AM EDT Office Visit [address], [address] [place] [phone] Micha Washington MD [address] [place] [address] Molly Figueroa PA-C [address] [place] [address] documented as of this encounter Visit Diagnoses Not on filedocumented in this encounter Additional Health Concerns Infection Onset Date Last Indicated Resolved Time 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 02/24/2017 02/22/2017 02/22/2017 04/02/2024 9:[address] documented as of this encounter Care Teams Gold Charmer Relationship Specialty Start Date End Date Lesley Grace MD [address] [place] [address] [place] [address] PCP - General 02/16/09 04/13/23 Elijah Serra DO [address] [place] [address] PCP - General Family Medicine 07/21/23 Provider, Historical 02/16/16 08/25/16 Willi Templeton MD 613 [address] [address] [place] [address] Gastroenterology 02/25/16 María Andre MD 613 [facility] [address] [place] [address] Gastroenterology 03/08/16 Selene Rodriguez APRN [address] [place] [address] Gastroenterology 08/23/16 Mariah Flowers APRN [address] [facility] [address] [place] [address] Nurse Practitioner 08/26/16 Neyda Beltran MD 613 [address] [address] [place] [address] Nephrology 03/17/17 Ryanne Roblero MD 613 [facility] [address] [place] [address] Rheumatology 03/01/18 Mi Martin APRN [address] [place] [address] Nurse Practitioner Nurse Practitioner 04/16/19 Micha Washington MD [address] [place] [id number] Endocrinology 08/06/24 08/06/24 documented as of this encounter
--- OUTSIDE RECORDS SUMMARY | 2024-08-13 12:44 | XMS_ITS | Encounter Summary ---
Author Organization [employer] ([place], [place], [place], [place]) Address [address] [place] [address] Care Team Providers Care Room Attendants Name Role Phone Elijah Serra DO Primary Care Provider [phone] Encounter Details Date Type Department Care Team (Late st Contact Info) Description 07/20/2021 Transcribed Document [facility] [place] Family Medicine [address] [place] [address] ProviderMichael MD [address] [place] [address] Social History Tobacco Use Types [...] Do you speak a language other than Belarusian at [facility]? No 09/05/2023 Do you want help with [...] Conversion Note - Historical Provider, - 07/20/2021 4:33 PM CDT Nursing Discharge Summary Entered On: 07/20/2021 16:33 EDT Performed On: 07/20/2021 16:33 EDT by Pat Santiago Rn Discharge Documentation Discharge Date/Time : 07/20/2021 16:33 EDT Patient Disposition, General : Discharge Discharge To : Home with ambulatory/outpatient follow-up Pat Santiago Rn - 07/20/2021 16:33 EDT Electronically signed by Florencia [facility] Conversion Ingredient Scaler Helper Cerner at 05/25/2022 6:25 PM CDT documented in this encounter Plan of Treatment Not on file documented as of this encounter Visit Diagnoses Not on filedocumented in this encounter Care Teams Room Attendants Relationship Specialty Start Date End Date Elijah Serra, DO 100 [facility] 1ST [place] [phone] PCP - General Family Medicine 03/11/23 documented as of this encounter
--- OUTSIDE RECORDS SUMMARY | 2024-08-13 12:44 | XMS_ITS | Encounter Summary ---
Author Organization [employer] ([place], [place], [place], [place]) Address [address] [place] [address] Care Team Providers Care News Clipping Cutter Name Role Phone Elijah Serra DO Primary Care Provider [phone] Encounter Details Date Type Department Care Team (Late st Contact Info) Description 07/20/2021 Transcribed Document [facility] [address] [place] [address] ProviderMichael MD [address] [place] [address] Social History Tobacco Use Types [...] Do you speak a language other than Tunisian at [facility]? No 09/05/2023 Do you want help [...] Historical Provider, - 07/20/2021 3:58 PM CDT Patient Education Materials Follows: GUIDELINES FOR A HEART HEALTHY DIET TO [...] ham, luncheon meats, hot dogs, canned meats, Karen sausage --Limit meat portions to no more [...] white, wheat or rye breads, plain breadsticks, divehi muffins, hamburger buns, plain bagels, plain cake doughnuts, mery breads, baked flours or corn tortillas, crackers including coty, animal, saltine, oyster and matzo, snacks including unsalted pretzels, popcorn, baked tortilla chips or potato chips. Homemade breads (biscuits, muffins, cornbread, rolls, pancakes and urdu toast) should be made with oils low [...] choose prepared products such as muffins, frozen urdu toast and waffles, biscuits, croissants and other [...] 5 large olives is considered a serving. --[place] oil and peanut oil are higher in [...] diet, please call the registered dietitians at [facility] at or . We will be happy [...] sugar-free varieties to be more thirst quenching. --[place] your teeth. --Chill mouthwash and gargle for [...] and not your mouth. --Avoid mid-day heat. Cardiovascular Hypotension As your heart beats, it forces [...] quickly after you eat. Medicines ??? Take lfwq-sju-iyamyjp and prescription medicines only as told by [...] You have a fever for more than 2?3 days. ??? You feel more thirsty than [...] provider. Document Revised: 07/20/2018 Document Reviewed: 07/20/2018 [employer] Patient Education ? 2020 [employer]. Hypertension, Adult Hypertension is another name for [...] Limit how much you use to: ? 0?1 drink a day for women. ? 0?2 drinks a day for men. ? Be aware of how much alcohol is in your drink. In the [place] one drink equals one 12 oz bottle of beer (355 mL), one 5 oz glass of wine (148 mL), or one 1? oz glass of hard liquor (44 mL). [...] doctor. This is important. Medicines ??? Take akvh-ibm-vtiekox and prescription medicines only as told by [...] provider. Document Revised: 10/04/2018 Document Reviewed: 10/04/2018 [employer] Patient Education ? 2020 [employer] Heart Failure Action Plan A heart [...] worse. ??? You suddenly gain more than 2?3 lb (0.9?1.4 kg) in a day, or more than [...] your legs or abdomen. ??? You gain 2?3 lb (0.9?1.4 kg) in one day, or 5 lb [...] Follow these instructions at home: ??? Take fjnb-shg-gaasgri and prescription medicines only as told by your health care provider. ??? Weigh yourself daily. Your target weight is lb ( kg). ? Call your health care provider if you gain more than lb ( kg) in a day, or more than lb ( kg) in one week. ??? Eat a heart-healthy diet. Work with a diet and child nutrition director (dietitian) to create an eating plan that is best for you. ??? Keep all follow-up visits as told by your health care provider. This is important. Where to find more information ??? [employer]: www.heart.org Summary ??? Follow the [...] provider. Document Revised: 01/06/2018 Document Reviewed: 03/05/2017 [employer] Patient Education ? 2020 [employer] Heart Failure Exacerbation Heart failure is a [...] these instructions at home: Medicines ??? Take cfvq-krx-yvzwwfc and prescription medicines only as told by your health care provider. ??? Do not stop taking your medicines or change the amount you take. If you are having problems or side effects from your medicines, talk to your health care provider. ??? If you are having difficulty paying for your medicines, contact a social worker delinquency prevention or your clinic. There are many programs [...] You have trouble sleeping. ??? You gain 2?3 lb (1?1.4 kg) in 24 hours or 5 lb [...] provider. Document Revised: 08/16/2020 Document Reviewed: 08/16/2020 [employer] Patient Education ? 2020 [employer] Heart Failure, Diagnosis Heart failure means that [...] provider. Document Revised: 08/16/2020 Document Reviewed: 08/16/2020 [employer] Patient Education ? 2020 [employer]. Forms Blood Pressure Record Sheet To take your [...] makes sure the results are correct. Wait 1?2 minutes between measurements. ??? Write down the [...] provider. Document Revised: 05/14/2020 Document Reviewed: 05/14/2020 [employer] Patient Education ? 2020 [employer] Infectious Disease Community-Acquired Pneumonia, Adult Pneumonia is an infection [...] these instructions at home: Medicines ??? Take nsrm-ubk-ryupzwz and prescription medicines only as told by [...] salt water. To make salt water, dissolve ??1 tsp (3?6 g) of salt in 1 cup (237 [...] 65 years of age. ? You are 19?65 years of age and: ? You are [...] cannot use soap and water, use hand assistant attorney general. Contact a doctor if: ??? You have [...] provider. Document Revised: 11/06/2019 Document Reviewed: 11/06/2019 [employer] Patient Education ? 2020 [employer]. documented in this encounter Plan of Treatment Not on file documented as of this encounter Visit Diagnoses Not on filedocumented in this encounter Care Teams News Clipping Cutter Relationship Specialty Start Date End Date Elijah Serra, DO [address] [facility] [address]ST [place] [address] PCP - General Family Medicine 03/11/23 documented as of this encounter
--- OUTSIDE RECORDS SUMMARY | 2024-08-13 12:44 | XMS_ITS | Encounter Summary ---
Author Organization [facility] Address [address] [place] [address] Support Name Relationship Address Phone Stepan Gold Personal Relationship [address] [facility] [place] [address] Mi Asif Personal Relationship Unknown Rosalind Andersonill Personal Relationship Unknown [phone] Vivi Ward Personal Relationship Unknown Care Team Providers Care Warehouse Incentive Selector Name Role Phone Lesley Grace MD Primary Care Provider [phone] Willi Templeton MD Unavailable [phone] María Andre MD Unavailable [phone] Selene Rodriguez COMBINATION MACHINE TOOL OPERATOR Unavailable Mariah Flowers COMBINATION MACHINE TOOL OPERATOR Unavailable Neyda Beltran MD Unavailable Ryanne Roblero MD Unavailable Unavailable Mi Martin COMBINATION MACHINE TOOL OPERATOR Unavailable [phone] Elijah Serra DO Primary Care Provider [phone] Micha Washington MD Unavailable Reason for Visit * Reason Onset Date Comments Medications Refill 03/18/2017 Encounter Details Date Type Department Care Team (Late st Contact Info) Description 03/18/[address] LESLEY GRACE MD, [facility] [address] [facility] [address] [place] [address] Lesley Grace MD [address] [place] [address] [place] [address] Social History Tobacco Use Types Packs/Day Years [...] encounter Miscellaneous Notes * Telephone Encounter - Tiny Hitchcock RN - 03/18/2017 9:15 AM EST Is patient still taking synthroid 0.112mg? We got a refill request documented in this encounter Plan of Treatment Upcoming Encounters Date Type Department Care Team (Late st Contact Info) Description 11/06/2024 11:00 AM EDT Office Visit [address], [facility] [place], [address] [place], [place] [address] Micha Washington MD [address] [place] [address] [place] [address] Molly Figueroa PA-C [address] [place] [place] [phone] documented as of this encounter Visit Diagnoses Not on filedocumented in this encounter Additional Health Concerns Infection Onset Date Last Indicated Resolved Time 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 02/24/2017 02/22/2017 02/22/2017 04/02/2024 9:[address] documented as of this encounter Care Teams Warehouse Incentive Selector Relationship Specialty Start Date End Date Lesley Grace MD [address] [place] [address] [place] [address] PCP - General 02/16/09 04/13/23 Elijah Serra DO [address] [place] [address] PCP - General Family Medicine 07/21/23 Willi Templeton MD [address] [place] [address] Gastroenterology 02/25/16 María Andre MD [address] [place], [place] [id number] Gastroenterology 03/08/16 Selene Rodriguez APRN [address] [place] [address] [address] [place] [address] Gastroenterology 08/23/16 Mariah Flowers APRN [address] [place] [address] [address] [place] [address] Nurse Practitioner 08/26/16 Neyda Beltran MD [address] [place] [address] Nephrology 03/17/17 Ryanne Roblero MD [address] [place] [address] Rheumatology 03/01/18 Mi Martin APRN [address] [place] [address] [address] [place] [address] Nurse Practitioner Nurse Practitioner 04/16/19 Micha Washington MD [address] [place] [address] [address] [place], [place] [id number] Endocrinology 08/06/24 08/06/24 documented as of this encounter
--- OUTSIDE RECORDS SUMMARY | 2024-08-13 12:44 | XMS_ITS | Encounter Summary ---
Author Organization [facility] Address [address] [place] [address] Support Name Relationship Address Phone Stepan Gold Personal Relationship [address] [place] [address] Mi Gold Personal Relationship Unknown [phone] Rosalind Mai Personal Relationship Unknown [phone] Vivi Ward Personal Relationship Unknown Care Team Providers Care Workforce Investment Act Career Manager Name Role Phone Yehuda Barger MD Primary Care Provider Willi Templeton MD Unavailable María Andre MD Unavailable Selene Rodriguez STEEL FINISHER Unavailable Mariah Flowers STEEL FINISHER Unavailable [phone] Neyda Beltran MD Unavailable Ryanne Roblero MD Unavailable Unavailable Mi Martin STEEL FINISHER Unavailable [phone] Elijah Serra DO Primary Care Provider [phone] Micha Washington MD Unavailable Reason for Visit * Reason Onset Date Comments Results - Lab 05/01/2020 Encounter Details Date Type Department Care Team (Late st Contact Info) Description 05/01/2020 Telephone Patient Access Center [address] [place] [address] Toya Carpenter, RN Results - Lab Social History Tobacco Use [...] have Coronavirus / COVID-19? No / Unsure 05/01/2020 11:00 AM EDT documented as of this encounter Miscellaneous Notes * Telephone Encounter - Toya Carpenter RN - 05/01/2020 9:28 PM EDT Critical Out Patient Lab Ordering provider: Mi Martin notified via Doc Halo 1009 msg not read. PCP - Dr.Henry Barger Name Obdulio Gold Test Name: glucose Results: 52 1129 this morning Received from: [facility] R/V by: Belem Carpenter RN 2130 Called to patient left message on VM. 2149 Called to patient left message on VM. 2154 Called to spouse phone no longer in service. 2158 Called to daughter Mi's phone left message on VM 2219 Called to patient left message on VM. 2027 Patient has hx of up and downs with blood sugar. Per patient's Stepan was feeling well today, eating well today. Pt is sleeping and she does not feel the need to wake him up. He has insulinpump and dexacon. Stepan states this is normal for pt. He was seen today by Dr. Micha Washington. Physician: Donell Mckeon APRN 05/01/2020 @ 2238 Reported as noted above. Notified: yes Orders Received 2239: When able to get ahold of patient, please have patient check glucose. If glucose over 70, no concerns. Ask about sighs and symptoms of low glucose and encourage him to eat. 2254 Called back to patient Blood Sugar check 217. Stepan says this is normal. He doesnt take care of his diabetes like he used to. TO/RV/Donell Mcekon APRN/ Belem Carpenter RN documented in this encounter Plan of Treatment Upcoming Encounters Date Type Department Care Team (Late st Contact Info) Description 11/06/2024 11:00 AM EDT Office Visit [facility] [address] [place], [facility], [address] [place] [address] Micha Washington MD [address] [place] [id number] Molly Figueroa PA-C [address] [place] [phone] documented as of this encounter Visit Diagnoses Not on filedocumented in this encounter Additional Health Concerns Infection Onset Date Last Indicated Resolved Time 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 02/24/2017 02/22/2017 02/22/2017 04/02/2024 9:[address] documented as of this encounter Care Teams Workforce Investment Act Career Manager Relationship Specialty Start Date End Date Yehuda Barger MD [address] [place] [address] [place] [address] PCP - General 02/16/09 04/13/23 Elijah Serra DO [address] [place] [address] PCP - General Family Medicine 07/21/23 Willi Templeton MD [address] [place] [address] Gastroenterology 02/25/16 María Andre MD [address] [facility] [place] [address] Gastroenterology 03/08/16 Selene Rodriguez APRN [facility] [address] [place], [place] [address] Gastroenterology 08/23/16 Mariah Flowers APRN [address] [place] [address] 510 [place] [address] Nurse Practitioner 08/26/16 Neyda Beltran MD [address] [place] [address] [address] [place] [address] Nephrology 03/17/17 Ryanne Roblero MD [address] [place] [address] [address] [place] [address] Rheumatology 03/01/18 Mi Martin APRN [address] [place] [address] [address] [place] [address] Nurse Practitioner Nurse Practitioner 04/16/19 Micha Washington MD [address] [place] [address] [address] [place] [address] Endocrinology 08/06/24 08/06/24 documented as of this encounter
--- OUTSIDE RECORDS SUMMARY | 2024-08-13 12:44 | XMS_ITS | Encounter Summary ---
Author Organization [facility] Address [address] [place] [address] Support Name Relationship Address Phone Stepan Gold Personal Relationship [address] [place] [address] Mi Gold Personal Relationship Unknown Rosalind Mai Personal Relationship Unknown Vivi Ward Personal Relationship Unknown [phone] Care Team Providers Care Financial Foundations Associate Name Role Phone Yehuda Barger MD Primary Care Provider [phone] Milton Crum DO Primary Care Provider Miky Benton MD Primary Care Provider [phone] Provider, Historical Unavailable Unavailable Willi Templeton MD Unavailable [phone] María Andre MD Unavailable [phone] Selene Rodriguez HISTOLOGIST TECHNOLOGIST Unavailable Mariah Flowers HISTOLOGIST TECHNOLOGIST Unavailable [phone] Neyda Beltran MD Unavailable [phone] Ryanne Roblero MD Unavailable Unavailable Mi Martin APRN Unavailable [phone] Elijah Serra DO Primary Care Provider [phone] Micha Washington MD Unavailable Encounter Details Date Type Department Care Team (Late st Contact Info) Description 10/07/2003 Historical Encounter Global Horacio Sherman MD [address] [place] [address] Social History Tobacco Use Types Packs/Day Years [...] 11/06/2024 11:00 AM EDT Office Visit [facility] [address], [address] [place], [address] [place] [address] Micha Washington MD [address] [place], [place] [phone] Molly Figueroa PA-C [address] [address] [place], [place] [phone] documented as of this encounter Visit Diagnoses Not on filedocumented in this encounter Additional Health Concerns Infection Onset Date Last Indicated Resolved Time 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 02/24/2017 02/22/2017 02/22/2017 04/02/2024 9:[address] documented as of this encounter Care Teams Financial Foundations Associate Relationship Specialty Start Date End Date Yehuda Barger MD [address] [place] [address] [address] [facility] [address] [place] [address] PCP - General 02/16/09 04/13/23 Milton Crum DO [address] [place] [address] [address] [facility] [address] [place] [address] PCP - General 01/08/09 02/15/09 Miky Louis MD [address] [facility] [place] [address] PCP - General 12/26/07 01/07/09 Elijah Serra DO [address] [place] [address] PCP - General Family Medicine 07/21/23 Provider, Historical 02/16/16 08/25/16 Willi Templeton MD [address] [place] [address] Gastroenterology 02/25/16 María Andre MD [address] [address] [place], [place] [address] Gastroenterology 03/08/16 Selene Rodriguez APRN [address] [place] [address] 203 [place] [address] Gastroenterology 08/23/16 Mariah Flowers APRN [address] [place] [address] [address] [place] [address] Nurse Practitioner 08/26/16 Neyda Beltran MD [address] [facility] [address] [place] [address] Nephrology 03/17/17 Ryanne Roblero MD [address] [place] [address] [address] [place] [address] Rheumatology 03/01/18 Mi Martin APRN [address] [place] [address] [address] [place] [address] Nurse Practitioner Nurse Practitioner 04/16/19 Micha Washington MD [address] [place] [address] [address] [place], [place] [address] Endocrinology 08/06/24 08/06/24 documented as of this encounter
--- OUTSIDE RECORDS SUMMARY | 2024-08-13 12:44 | XMS_ITS | Encounter Summary ---
Author Organization [facility] Address [address] [place] [address] Support Name Relationship Address Phone Stepan Gold Personal Relationship [address] [place] [address] Mi Gold Personal Relationship Unknown Rosalind Mai Personal Relationship Unknown [phone] Vivi Ward Personal Relationship Unknown Care Team Providers Care Lane Attendant Name Role Phone Yehuda Barger MD Primary Care Provider Willi Templeton MD Unavailable [phone] María Andre MD Unavailable [phone] Selene Rodriguez STOCKROOM COORDINATOR Unavailable Mariah Flowers STOCKROOM COORDINATOR Unavailable [phone] Neyda Beltran MD Unavailable [phone] Ryanne Roblero MD Unavailable Unavailable Mi Martin STOCKROOM COORDINATOR Unavailable [phone] Elijah Serra DO Primary Care Provider [phone] Micha Washington MD Unavailable Reason for Visit * Reason Onset Date Comments Follow-up 03/28/2017 1st post DC f/u call made per ACM. No answer. Will continue to try to reach this pt. Encounter Details Date Type Department Care Team (Late st Contact Info) Description 03/28/2017 Telephone Population Health Management [address] [place] [id number] Billie Pathak, ARTHUR Follow-up (1st post DC f/u call made per ACM. No answer. Will continue to try to [...] Description 11/06/2024 11:00 AM EDT Office Visit [address], [facility], [address] [place] [phone] Micha Washington MD [address] [place] [address] Molly Figueroa PA-C [address] [place] [address] documented as of this encounter Visit Diagnoses Not on filedocumented in this encounter Additional Health Concerns Infection Onset Date Last Indicated Resolved Time 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 02/24/2017 02/22/2017 02/22/2017 04/02/2024 9:[address] documented as of this encounter Care Teams Lane Attendant Relationship Specialty Start Date End Date Yehuda Barger MD [address] [place] [address] [email or web address] [place] [address] PCP - General 02/16/09 04/13/23 Elijah Serra DO [address] [place] [address] PCP - General Family Medicine 07/21/23 Willi Templeton MD [address] [place] [address] Gastroenterology 02/25/16 María Andre MD [address] [place] [address] [facility] [place] [address] Gastroenterology 03/08/16 Selene Rodriguez APRN [address] [place] [address] 203 [place] [address] Gastroenterology 08/23/16 Mariah Flowers APRN [address] [place] [address] [address] [place] [address] Nurse Practitioner 08/26/16 Neyda Beltran MD [address] [facility] [address] [place] [address] Nephrology 03/17/17 Ryanne Roblero MD [address] [facility] [address] [place] [address] Rheumatology 03/01/18 Mi Martin APRN [address] [place] [address] [address] [place] [address] Nurse Practitioner Nurse Practitioner 04/16/19 Micha Washington MD [address] [place] [address] [address] [place] [address] Endocrinology 08/06/24 08/06/24 documented as of this encounter
[2024-08-13 12:45] LABS: Adenovirus,PCR Not Detected (NotDetected); Chlamydophila Pneumoniae, PCR Not Detected (NotDetected); Coronavirus 19, PCR Not Detected (NotDetected); Coronovirus HKU1,PCR Not Detected (NotDetected); Influenza A, PCR Not Detected (NotDetected); Influenza AH1, 2009 Not Detected (NotDetected); Influenza AH1, PCR Not Detected (NotDetected); Influenza AH3,PCR Not Detected (NotDetected); Influenza B, PCR Not Detected (NotDetected); Mycoplasma Pneumoniae, PCR Not Detected (NotDetected); Parainfluenza 1, PCR Not Detected (NotDetected); Parainfluenza 2, PCR Not Detected (NotDetected); Parainfluenza 3, PCR Not Detected (NotDetected); Parainfluenza 4, PCR Not Detected (NotDetected)
--- OUTSIDE RECORDS SUMMARY | 2024-08-13 12:45 | XMS_ITS | Encounter Summary ---
Author Organization [facility] Address [address] [place] [address] Support Name Relationship Address Phone Stepan Gold Personal Relationship [address] [place] [address] Mi Gold Personal Relationship Unknown [phone] Rosalind Mai Personal Relationship Unknown [phone] Vivi Ward Personal Relationship Unknown [phone] Care Team Providers Care Healthcare Account Manager Name Role Phone Lesley Grace MD Primary Care Provider [phone] Willi Templeton MD Unavailable María Andre MD Unavailable Selene Rodriguez ELECTRONICS SPECIALIST Unavailable Mariah Flowers ELECTRONICS SPECIALIST Unavailable Neyda Beltran MD Unavailable Ryanne Roblero MD Unavailable Unavailable Mi Martin ELECTRONICS SPECIALIST Unavailable [phone] Elijah Serra DO Primary Care Provider Micha Washington MD Unavailable Encounter Details Date Type Department Care Team (Late st Contact Info) Description 01/02/[address] LESLEY GRACE MD, [facility] [address] [facility] [address] [place] [id number] Lesley Grace MD [address] [facility] [address] [place] [address] Social History Tobacco Use Types [...] have Coronavirus / COVID-19? No / Unsure 01/02/2020 8:06 AM EST documented as of this encounter Miscellaneous Notes * Telephone Encounter - Sapphire Mary - 01/02/2020 8:04 AM EST New RX for gabapentin and has sinus infection # [phone] dominic Nicole documented in this encounter Plan of Treatment Upcoming Encounters Date Type Department Care Team (Late st Contact Info) Description 11/06/2024 11:00 AM EDT Office Visit [address], [facility], [address] [place] [address] Micha Washington MD [address] [place] [address] [place] [address] Molly Figueroa PA-C [address] [place] [address] [place] [address] documented as of this encounter Visit Diagnoses Not on filedocumented in this encounter Additional Health Concerns Infection Onset Date Last Indicated Resolved Time 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 02/24/2017 02/22/2017 02/22/2017 04/02/2024 9:[address] documented as of this encounter Care Teams Healthcare Account Manager Relationship Specialty Start Date End Date Lesley Grace MD [address] [place] [address] [place] [address] [place] [address] PCP - General 02/16/09 04/13/23 Elijah Serra DO [address] [place] [address] PCP - General Family Medicine 07/21/23 Willi Templeton MD [address] [place] [address] [address] [place] [address] Gastroenterology 02/25/16 María Andre MD [address] [place] [address] [address] [place] [address] Gastroenterology 03/08/16 Selene Rodriguez APRN [address] [place] [address] Gastroenterology 08/23/16 Mariah Flowers APRN [address] [place] [address] [address] [place] [address] Nurse Practitioner 08/26/16 Neyda Beltran MD [address] [place] [address] [address] [place] [address] Nephrology 03/17/17 Ryanne Roblero MD [address] [place] [address] [address] [place] [address] Rheumatology 03/01/18 Mi Martin APRN [address] [place] [address] [address] [place] [address] Nurse Practitioner Nurse Practitioner 04/16/19 Micha Washington MD [address] [place] [address] Endocrinology 08/06/24 08/06/24 documented as of this encounter
--- OUTSIDE RECORDS SUMMARY | 2024-08-13 12:45 | XMS_ITS | Encounter Summary ---
Author Organization [employer] ([place], [place], [place], [place]) Address [address] [place] [address] Care Team Providers Care Ledger Clerk Name Role Phone Elijah Serra DO Primary Care Provider [phone] Encounter Details Date Type Department Care Team (Late st Contact Info) Description 07/19/2021 Transcribed Document [facility] [place] [address] [place] [address] ProviderMichael MD [address] [place] [address] Social History Tobacco Use Types [...] Do you speak a language other than [place] at [facility]? No 09/05/2023 Do you want [...] Cerner Conversion Note - Historical Provider, - 07/19/2021 9:48 AM CDT Patient: SOLEDAD DOWD Age: 65 Years Sex: Male : 1955 Assessment/Plan -Profound hypoglycemia in the setting of type 2 diabetes mellitus, maintained on insulin pump at baseline -Pseudohyponatremia -Acute kidney injury in the setting of what appears to be chronic kidney disease stage III -Likely pneumonia -Modest anemia -Likely acute decompensated congestive heart failure, suspect diastolic, echocardiogram pending -Fluid overload/marked lower extremity edema -Modestly low blood pressure seems to be symptomatic with reported recurrent falls and dizziness -Left arm contusion as a result of recent falls -Uncontrolled type 2 diabetes mellitus -History of hypothyroidism with modestly elevated TSH -Coronary artery disease with prior CABG as well as stents -Reported history of rheumatoid arthritis -History of essential hypertension and dyslipidemia Plan: I will initiate insulin therapy and monitor fingerstick glucose. Begin glargine 3 units. to bring in pump supplies I will consult nephrology as well as cardiology service I will obtain transthoracic echocardiogram as well as lower extremity venous duplex I will hold most of his antihypertensives in the setting of low blood pressures I will monitor electrolytes and address as needed I will investigate anemia, I will obtain kidney ultrasound as well as urinalysis 1 dose IV bumex Due to discovery of pneumonia I will add antibiotic therapy and submit cultures I will ask for physical and Occupational Therapy VTE Prophylaxis - Medical Clopidogrel 75 mg, Oral, Tab, Daily, Routine, Start 07/19/21 9:00:00 EDT, 07/18/21 16:13:00 EDT (SKPI ROBLES MD-INT) Heparin 5,000 Units, SubCutaneous, Inj, [id number], Routine, Start 07/18/21 15:00:00 EDT, 07/18/21 14:02:00 EDT (SKIP ROBLES MD-INT) Subjective Sen and examined this AM. resting comfortbly Constitutional: [No fevers, chills, sweats] Eye: [No recent visual problems] ENMT: [No ear pain, nasal congestion, sore throat] Respiratory: [No shortness of breath, cough] Cardiovascular: [No Chest pain, palpitations, syncope] Gastrointestinal: [No nausea, vomiting, diarrhea] Genitourinary: [No hematuria] Vital Signs T: 36.6 ??C TMIN: 36.3 ??C TMAX: 36.7 ??C HR: 71(Monitored) RR: 16 BP: 146/76 SpO2: 94% HT: 182.88 cm WT: 91.82 kg BMI: 27.5 Oxygen Settings (Last) Oxygen Therapy Mode: Room air (07/19/21 08:00:00) Intake & Output Totals Last 24 Hours (7a-7a) Input Total: 800.1 mL Output Total: 1250 mL Balance: -449.9 mL Physical Exam General: [alert , well nourished, [...] Psychiatric: [cooperative , appropriate mood and affect] Medications allopurinol, 100 mg= 1 Tab, Oral, Daily bumetanide, 1 mg= 4 mL, IV Push, 1-Time Bumex, 1 mg= 4 mL, IV Push, [...] 3 mL, Nebulized Inhalation , Q6H, PRN Florastor, 250 mg= 1 Cap, Oral, BID gabapentin, 600 mg= 1 Tab, Oral, BID glucagon, 1 mg= 1 mL, IntraMuscular, Q15Min, PRN glucose 4 g oral tablet, chewable, 16 Gram= 4 Tab, Chew, Q15Min, PRN glucose 40% oral gel, 15 Gram= 37.5 mL, Oral, Q15Min, PRN heparin, 5000 Units= 1 mL, SubCutaneous, [id number] hydrALAZINE, 5 mg= 0.25 mL, IV Push, Q4H, PRN hydroxychloroquine, 200 mg= 1 Tab, Oral, Daily insulin glargine, 3 Units= 0.03 mL, SubCutaneous, Daily insulin lispro, 10 Units= 0.1 mL, SubCutaneous, TID With Meals insulin lispro sliding scale, Scale B:, SubCutaneous, AC and at Bedtime levothyroxine, 125 mcg= 1 Tab, Oral, Daily MiraLax, 17 Gram= 1 Packet, Oral, Daily, [...] Test Result Date/Time Sodium Level 140 mmol/L 07/19/2021 06:51 EDT Sodium Level 128 mmol/L (Low) 07/18/2021 11:49 EDT Potassium Level 3.9 mmol/L 07/19/2021 06:51 EDT Potassium Level 4.5 mmol/L 07/18/2021 11:49 EDT Chloride Level 109 mmol/L 07/19/2021 06:51 EDT Chloride Level 98 mmol/L (Low) 07/18/2021 11:49 EDT Carbon Dioxide Level 27 mmol/L 07/19/2021 06:51 EDT Carbon Dioxide Level 24 mmol/L 07/18/2021 11:49 EDT Anion Gap 8 (Low) 07/19/2021 06:51 EDT Anion Gap 10 07/18/2021 11:49 EDT Glucose Level 262 mg/dL (High) 07/19/2021 06:51 EDT Glucose Level 714 mg/dL (Critical) 07/18/2021 11:49 EDT Blood Urea Nitrogen 18 mg/dL 07/19/2021 06:51 EDT Blood Urea Nitrogen 40 mg/dL (High) 07/18/2021 11:49 EDT Creatinine Level 1.40 mg/dL (High) 07/19/2021 06:51 EDT Creatinine Level 2.40 mg/dL (High) 07/18/2021 11:49 EDT eGFR >60 mL/min/1.73m2 07/19/2021 06:51 EDT eGFR 33 mL/min/1.73m2 (Low) 07/18/2021 11:49 EDT eGFR NonAfrican 51 mL/min/1.73m2 (Low) 07/19/2021 06:51 EDT eGFR NonAfrican 27 mL/min/1.73m2 (Low) 07/18/2021 11:49 EDT Bun/Creatinine 12.9 07/19/2021 06:51 EDT Bun/Creatinine 16.7 07/18/2021 11:49 EDT Calcium Level 8.8 mg/dL 07/19/2021 06:51 EDT Calcium Level 8.5 mg/dL 07/18/2021 11:49 EDT Protein Total 6.5 Gram/dL 07/19/2021 06:51 EDT Albumin Level 2.9 Gram/dL (Low) 07/19/2021 06:51 EDT Globulin 3.6 Gram/dL 07/19/2021 06:51 EDT A/G Ratio 0.8 (Low) 07/19/2021 06:51 EDT Bilirubin Total 0.5 mg/dL 07/19/2021 06:51 EDT Alk Phos 103 Units/Liter 07/19/2021 06:51 EDT AST 25 Units/Liter 07/19/2021 06:51 EDT ALT 25 Units/Liter 07/19/2021 06:51 EDT Magnesium Level 2.1 mg/dL 07/19/2021 06:51 EDT Device Comment 1 Notified Nurse RBV 07/19/2021 05:43 EDT Device Comment 1 Notified Nurse RBV 07/18/2021 22:33 EDT Device Comment 1 Notified Nurse RBV 07/18/2021 16:32 EDT Glucose POC2 218 mg/dL (High) 07/19/2021 05:43 EDT Glucose POC2 151 mg/dL (High) 07/18/2021 22:33 EDT Glucose POC2 331 mg/dL (High) 07/18/2021 16:32 EDT Folate Level 6.30 ng/mL 07/19/2021 06:51 EDT Troponin I High Sensitivity 15.3 pg/mL 07/18/2021 11:49 EDT ProBNP 597 pg/mL (High) 07/19/2021 06:51 EDT WBC 3.2 K/uL (Low) 07/19/2021 06:51 EDT WBC 3.6 K/uL 07/18/2021 11:49 EDT RBC 4.27 Million/uL 07/19/2021 06:51 EDT RBC 3.80 Million/uL (Low) 07/18/2021 11:49 EDT Hgb 10.8 g/dL (Low) 07/19/2021 06:51 EDT Hgb 9.8 g/dL (Low) 07/18/2021 11:49 EDT Hct 34.3 % (Low) 07/19/2021 06:51 EDT Hct 30.7 % (Low) 07/18/2021 11:49 EDT MCV 80.3 fL 07/19/2021 06:51 EDT MCV 80.8 fL 07/18/2021 11:49 EDT MCH 25.3 pg (Low) 07/19/2021 06:51 EDT MCH 25.8 pg 07/18/2021 11:49 EDT MCHC 31.5 Gram/dL (Low) 07/19/2021 06:51 EDT MCHC 31.9 Gram/dL (Low) 07/18/2021 11:49 EDT Platelet Count 129 K/uL (Low) 07/19/2021 06:51 EDT Platelet Count 135 K/uL (Low) 07/18/2021 11:49 EDT MPV 8.8 fL (Low) 07/19/2021 06:51 EDT MPV 9.6 fL 07/18/2021 11:49 EDT RDW 15.7 % (High) 07/19/2021 06:51 EDT RDW 15.6 % (High) 07/18/2021 11:49 EDT Neut % 49.6 % 07/19/2021 06:51 EDT Neut % 69.3 % 07/18/2021 11:49 EDT Neut # 1.60 K/uL 07/19/2021 06:51 EDT Neut # 2.51 K/uL 07/18/2021 11:49 EDT Lymph % 22.9 % 07/19/2021 06:51 EDT Lymph % 14.9 % (Low) 07/18/2021 11:49 EDT Lymph # 0.74 x10(3)/uL (Low) 07/19/2021 06:51 EDT Lymph # 0.54 x10(3)/uL (Low) 07/18/2021 11:49 EDT Charles % 6.2 % 07/19/2021 06:51 EDT Charles % 7.2 % 07/18/2021 11:49 EDT Charles # 0.20 K/uL 07/19/2021 06:51 EDT Charles # 0.26 K/uL 07/18/2021 11:49 EDT Eos % 19.8 % (High) 07/19/2021 06:51 EDT Eos % 7.5 % (High) 07/18/2021 11:49 EDT Eos # 0.64 x10(3)/uL 07/19/2021 06:51 EDT Eos # 0.27 x10(3)/uL 07/18/2021 11:49 EDT Baso % 1.2 % 07/19/2021 06:51 EDT Baso % 0.8 % 07/18/2021 11:49 EDT Baso # 0.04 x10(3)/uL 07/19/2021 06:51 EDT Baso # 0.03 x10(3)/uL 07/18/2021 11:49 EDT Slide Review No 07/19/2021 06:51 EDT Slide Review No 07/18/2021 11:49 EDT IG# .01 x10(3)/uL 07/19/2021 06:51 EDT IG# .01 x10(3)/uL 07/18/2021 11:49 EDT IG% 0.30 % 07/19/2021 06:51 EDT IG% 0.30 % 07/18/2021 11:49 EDT TSH 5.600 mcInt Units/mL (High) 07/18/2021 11:49 EDT Iron Level 26 mcg/dL (Low) 07/19/2021 06:51 EDT % Iron Saturation 9.6 % (Low) 07/19/2021 06:51 EDT Ferritin Level 38.2 ng/mL 07/19/2021 06:51 EDT TIBC 272.0 mcg/dL 07/19/2021 06:51 EDT Bordatella pertussis Not Detected 07/18/2021 13:20 EDT Chlamydia pneumoniae Not Detected2 07/18/2021 13:20 EDT Mycoplasma pneumoniae Not Detected 07/18/2021 13:20 EDT Bordatella parapertussis Not Detected 07/18/2021 13:20 EDT Adenovirus Not Detected 07/18/2021 13:20 EDT Coronavirus 229E Not Detected 07/18/2021 13:20 EDT Coronavirus HKU1 Not Detected 07/18/2021 13:20 EDT Coronavirus NL63 Not Detected 07/18/2021 13:20 EDT Coronavirus OC43 Not Detected 07/18/2021 13:20 EDT Human metapneumovirus Not Detected 07/18/2021 13:20 EDT Influenza A Not Detected 07/18/2021 13:20 EDT Influenza A H3 Not Detected 07/18/2021 13:20 EDT Influenza A 2009 H1N1 Not Detected 07/18/2021 13:20 EDT Influenza A H1 Not Detected 07/18/2021 13:20 EDT Influenza B Not Detected 07/18/2021 13:20 EDT Parainfluenza 1 Not Detected 07/18/2021 13:20 EDT Parainfluenza 2 Not Detected 07/18/2021 13:20 EDT Parainfluenza 3 Not Detected 07/18/2021 13:20 EDT Parainfluenza 4 Not Detected 07/18/2021 13:20 EDT Respiratory Syncytial Virus Not Detected 07/18/2021 13:20 EDT Rhinovirus/Enterovirus Not Detected 07/18/2021 13:20 EDT SARS-CoV-2 (COVID19 PCR) Not Detected 07/18/2021 13:20 EDT documented in this encounter Plan of Treatment Not on file documented as of this encounter Visit Diagnoses Not on filedocumented in this encounter Care Teams Ledger Clerk Relationship Specialty Start Date End Date Elijah Serra, DO [address] [facility] [place] [address] [place] [address] PCP - General Family Medicine 03/11/23 documented as of this encounter
--- OUTSIDE RECORDS SUMMARY | 2024-08-13 12:45 | XMS_ITS | Encounter Summary ---
Author Organization [facility] Address [address] [place] [address] Support Name Relationship Address Phone Stepan Gold Personal Relationship [address] [place] [address] Mi Gold Personal Relationship Unknown [phone] Rosalind Mai Personal Relationship Unknown [phone] Vivi Ward Personal Relationship Unknown Care Team Providers Care Mail Processing Equipment Mechanic Name Role Phone Lesley Grace MD Primary Care Provider Willi Templeton MD Unavailable María Andre MD Unavailable Selene Rodriguez SALT WASHER Unavailable Mariah Flowers SALT WASHER Unavailable Neyda Beltarn MD Unavailable Ryanne Roblero MD Unavailable Unavailable Mi Martin SALT WASHER Unavailable [phone] Elijah Serra DO Primary Care Provider [phone] Micha Washington MD Unavailable Encounter Details Date Type Department Care Team (Late st Contact Info) Description 01/20/[address] LESLEY GRACE MD, [facility] 105 [facility] [address] [place] [phone] Lesley Grace MD [address] [facility] [address] [place] [address] Social History Tobacco Use Types [...] * Telephone Encounter - Sapphire Mary - 01/20/2018 9:56 AM EST Pt lost RX you wrote him for diabetic shoes. Asking you to write another one. Pt. To turkey picker Tuesday. documented in this encounter Plan of Treatment Upcoming Encounters Date Type Department Care Team (Late st Contact Info) Description 11/06/2024 11:00 AM EDT Office Visit [facility] Endocrinology [address], [address] [place], [place] [phone] Micha Washington MD [address] [place] [address] Molly Figueroa PA-C [address] [place] [address] documented as of this encounter Visit Diagnoses Not on filedocumented in this encounter Additional Health Concerns Infection Onset Date Last Indicated Resolved Time 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 02/24/2017 02/22/2017 02/22/2017 04/02/2024 9:[address] documented as of this encounter Care Teams Mail Processing Equipment Mechanic Relationship Specialty Start Date End Date Lesley Grace MD [address] [place] [address] [address] [facility] [place] [address] PCP - General 02/16/09 04/13/23 Elijah Serra DO [address] [place] [address] PCP - General Family Medicine 07/21/23 Willi Templeton MD [address] [address] [place] [address] Gastroenterology 02/25/16 María Andre MD [address] [place] [address] [address] [place] [address] Gastroenterology 03/08/16 Selene Rodriguez APRN [address] [place] [address] [address] [place] [address] Gastroenterology 08/23/16 Mariah Flowers APRN [address] [place] [address] [address] [place] [address] Nurse Practitioner 08/26/16 Neyda Beltran MD [address] [place] [address] [address] [place] [address] Nephrology 03/17/17 Ryanne Roblero MD [address] [place] [address] [address] [place] [address] Rheumatology 03/01/18 Mi Martin APRN [address] [facility] [address] [place] [phone] Nurse Practitioner Nurse Practitioner 04/16/19 Micha Washington MD [address] [place] [address] [address] [place] [address] Endocrinology 08/06/24 08/06/24 documented as of this encounter
--- OUTSIDE RECORDS SUMMARY | 2024-08-13 12:45 | XMS_ITS | Encounter Summary ---
Author Organization [employer] ([place], [place], [place], [place]) Address [address] [place] [address] Care Team Providers Care Folder Stitcher Operator Name Role Phone Elijah Serra DO Primary Care Provider [phone] Encounter Details Date Type Department Care Team (Late st Contact Info) Description 07/19/2021 Transcribed Document [facility] [place] Family Medicine [address] [place] [address] ProviderMichael MD [address] [place] [address] Social History Tobacco Use Types [...] Do you speak a language other than Comoran at [facility]? No 09/05/2023 Do you want help with [...] as of this encounter Miscellaneous Notes * Jaleesa Conversion Note - Historical Provider, - 07/19/2021 11:36 AM CDT Patient: SOLEDAD DOWD Age: 65 Years Sex: Male : 1955 Chief Complaint Pt presents with a laceration to the left arm. Reports weakness and multiple falls over the last 5 days. Takes Plavix related to stent placement. Increase in BLE edema. Pt states he is also SOB. Cardiology: Rody Breen PA-C Reason for consult: CHF History of Present Illness Delightful 65-year-old gentleman who follows with Rody Breen PA-C in our office. Established care June 2020, At the time he was having progressive increasing exertional dyspnea which she had reported was similar to his prior cardiac symptoms. He has coronary artery disease with CABG 2000, post CABG PCI in 2017 in [facility]. He has stage III CKD type 1 diabetes x50+ years with diabetic retinopathy. He has history of hypothyroidism with thyroid surgery. History of osteoarthritis with history of knee replacement surgery no history of hypertension hyperlipidemia. Other problems include prepatellar bursa infection treated with irrigation debridement and prolonged antibiotics. Also developed sudden loss of vision right eye. Has had several injections for retinopathy. Suspect possible nerve damage, currently under the care of a specialized supervisor wash house. The right eye has been sewn together. A Myoview stress test last year abnormal with inferior wall defect normal LV function normal ejection fraction. We attempted medical management however he had persistent symptoms and was taken for LHC on 08/18/2020. He demonstrated severe zuni CAD involving the LAD diagonal and obtuse marginal. A QUAN was not utilized. An SVG to the diagonal/LAD was patent and SVG to the OM was patent and SVG to the RCA was patent. He had normal LV function normal ejection fraction and was continued on medical management. Presented to our office in June describing increasing fatigue low stamina and shortness of breath. He was noted a few days ago to be hypotensive with Dr. Serra. Called and requested to be seen because of persistent low blood pressure with associated symptoms of fatigue and low stamina. Both imdur and BB reduced at that time. He presented yesterday with complaint of low blood pressure for the past 2 weeks, dizziness for the past 3 days and shortness of breath that has gotten worse over the past month. He also reports peripheral edema for the past month that had been resolved prior with medication. 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 He has been ambulatory since the event. No headache. No loss of consciousness. No back or neck pain. Patient reports blood pressures as low as 91/40. He has remained symptomatic despite the reduction of medication by our office. In the ED found to have markedly elevated blood sugar greater than 700. Noted to have abnormal kidney function and low sodium as well. Chest x-ray demonstrated what appears to be pneumonia like picture. Patient has insulin pump at baseline. He has been admitted to hospitalist, our service has been asked to consult in light of CHF. Pancytopenia noted on labs. Slight elevation of ProBNP. He is feeling better. LE swelling/dyspnea improved. Review of Systems Constitutional: [No fevers, chills, sweats] Eye: [No recent visual problems, eye discharge, eye pain, redness] HEENT: [No ear pain, nasal congestion, sore throat, voice changes] Respiratory: [No shortness of breath, cough, pain on breathing, sputum production] Cardiovascular: [No Chest pain, palpitations, syncope, shortness of breath while laying flat]. Worsening LE edema Gastrointestinal: [No nausea, vomiting, diarrhea, constipation] Musculoskeletal: [Chronic back pain, multi-joint pain] Integumentary: [No rash, pruritus, abrasions, lesions] Neurologic: [Frequent falls] Psychiatric: [Memory impairment] Physical Exam Vitals & Measurements T: 36.6 ??C TMIN: 36.3 ??C TMAX: 36.7 ??C HR: 71(Monitored) RR: 16 BP: 146/76 SpO2: 94% General: [well nourished, no acute distress]. Neurologic: [Awake, alert, and oriented X3, CN II-XII intact]. Eye: [PERRL, EOMI, normal conjunctiva]. HENT: [Normocephalic, normal hearing, moist oral mucosa, no scleral icterus, no sinus tenderness]. Neck: [Supple, non-tender, no carotid bruits, no JVD, no lymphadenopathy]. Lungs: [Clear to auscultation and percussion, non-labored respiration]. Heart: [Normal rate, regular rhythm, no murmur, gallop. 1 + bilat LE, brown discoloration]. Abdomen: [Soft, non-tender, non-distended, normal bowel sounds, no masses]. Musculoskeletal: [Normal range of motion and strength, no tenderness or swelling. Multiple rheumatic joint deformities noted]. Skin: [Skin is warm, dry and pink, no rashes or lesions]. Psychiatric: [Cooperative, appropriate mood and affect]. Assessment/Plan 1. A/C HFpEF (likely diastolic) - Echo pending - Agree with cautious diuresis - Sodium restriction - StrictI&O - Daily weight - Hold off on BB, will try to resume low dose in AM 2. CAD - CABG 06/2000, post CABG PCI 2009, 2016 [facility] 08/2020 severe zuni CAD with patent SVG diagonal/LAD, patent SVG-OM1, patent SVG to distal RCA, QUAN was not utilized - Echo pending - No complaint of CP - EKG stable per report, none available for review, I have re-ordered - Favor medical management, plavix, statin. 3. Likely PNA - Hospitalist managing 4. Pancytopenia - Long history of anemia, questionable etiology 5. Recurrent falls - ? hypotension related vs other 6. Memory impairment - Follows with Neurology outpatient 7. Uncontrolled DM - BS > 700 on admit 8. Hypothyroidism - Elevated TSH on arrival 9. RA - Follows with Rheumatology, outpatient 10. HTN - Has had problems wtih hypotension as of late 11. HLP - Currently on statin 12. Severe MICAELA - Currently untreated. - Discussed importance of treatment, has notable problem with intolerance Thank you for this consultation Will follow Problem List/Past Medical History Ongoing At risk for sleep apnea Calcium pyrophosphate deposition disease Chronic kidney disease stage 3 Coronary arteriosclerosis Dyspnea on exertion Erosive osteoarthrosis History of coronary artery bypass grafting Hyperlipidemia Hyperparathyroidism due to renal insufficiency Hypertension Hypothyroidism Secondary gout Type 1 diabetes mellitus Procedure/Surgical History Cholecystectomy, Colonoscopy, Coronary artery bypass graft, Hip replacement, Knee replacement, Stented coronary artery, thyroidectomy. Allergies Contrast Dye Tape iodine topical (Unknown) Medications acetaminophen-HYDROcodone 325 mg-5 mg oral tablet, 1 Tab, Oral, TID Adult Aspirin Regimen 81 mg oral delayed release tablet, Oral, Daily allopurinol, 100 mg= 1 Tab, Oral, Daily allopurinol 100 mg oral tablet, 100 mg= 1 Tab, Oral, Daily baclofen 10 mg oral tablet bumetanide, 1 mg= 4 mL, IV Push, 1-Time Bumex, 1 mg= 4 mL, IV Push, 1-Time clopidogrel, 75 mg= 1 Tab, Oral, Daily clopidogrel 75 mg oral tablet, 75 mg= 1 Tab, Oral, Daily Colace, [...] doxycycline, 100 mg= 1 Cap, Oral, BID doxycycline monohydrate 100 mg oral capsule DULoxetine, 60 mg, Oral, Daily DULoxetine, 60 mg= 2 Cap, Oral, Daily DuoNeb 0.5 mg-2.5 mg/3 mL inhalation solution, 3 mL, Nebulized Inhalation , Q6H, PRN EPINEPHrine 0.3 mg injectable kit erythromycin 0.5% ophthalmic ointment, 0.5 Inch, Eye Right, TID Florastor, 250 mg= 1 Cap, Oral, BID fluticasone 50 mcg/inh nasal spray furosemide 40 mg oral tablet, 40 mg= 1 Tab, Oral, Daily gabapentin, 600 mg= 1 Tab, Oral, BID gabapentin 600 mg oral tablet, 600 mg= 1 Tab, Oral, BID glucagon, 1 mg= 1 mL, IntraMuscular, Q15Min, PRN glucose 4 g oral tablet, chewable, 16 Gram= 4 Tab, Chew, Q15Min, PRN glucose 40% oral gel, 15 Gram= 37.5 mL, Oral, Q15Min, PRN heparin, 5000 Units= 1 mL, SubCutaneous, [id number] hydrALAZINE, 5 mg= 0.25 mL, IV Push, Q4H, PRN hydroxychloroquine, 200 mg= 1 Tab, Oral, Daily hydroxychloroquine 200 mg oral tablet, 400 mg= 2 Tab, Oral, Daily insulin glargine, 3 Units= 0.03 mL, SubCutaneous, Daily insulin lispro, 10 Units= 0.1 mL, SubCutaneous, TID With Meals insulin lispro sliding scale, Scale B:, SubCutaneous, AC and at Bedtime levothyroxine, 125 mcg= 1 Tab, Oral, Daily levothyroxine 125 mcg (0.125 mg) oral tablet, 125 mcg= 1 Tab, Oral, Daily lisinopril 2.5 mg oral tablet, 2.5 mg= 1 Tab, Oral, Daily Metoprolol Succinate ER 50 mg oral tablet, extended release, See Instructions MiraLax, 17 Gram= 1 Packet, Oral, Daily, PRN moxifloxacin 0.5% ophthalmic solution Oxervate 0.002 % eye drops Potassium Chloride (Qro-Xrne-Clg M10) 10 mEq oral tablet, extended release, 10 mEq= 1 Tab, Oral, Daily prednisoLONE acetate 1% ophthalmic suspension Rocephin, 2 Gram= 50 mL, IV Piggyback, Daily rosuvastatin 20 mg oral tablet, 20 mg= 1 Tab, Oral, Daily Roxicodone, 5 mg= 1 Tab, Oral, Q4H, PRN sucralfate 1 g oral tablet, 1 Gram= 1 Tab, Oral, QID tamsulosin, 0.4 mg= 1 Cap, Oral, Daily tamsulosin 0.4 mg oral capsule, 0.4 mg= 1 Cap, Oral, Daily traZODone, 50 mg= 1 Tab, Oral, At Bedtime traZODone 150 mg oral tablet, 150 mg= 1 Tab, Oral, At Bedtime Tylenol, 650 mg= 2 Tab, Oral, Q4H, PRN Zirgan 0.15% ophthalmic gel Zofran, 4 mg= 2 mL, IV Push, Q4H, PRN Family History blood coagulation disorder Mother cerebrovascular accident Mother myocardial infarction Mother Brother disorder of thyroid gland Mother malignant melanoma Brother Social History Alcohol Alcohol Use History No. Substance Abuse Drug Use Hx: No. Use in Last 12 Months: No. Tobacco Never (less than 100 in lifetime) Smoking Status. Never Smokeless Tobacco Status. Code Status / Living Will Resuscitation Status - Ordered -- Start: 07/18/21 13:32:00 EDT, Full Code, Continuous Order Labs Results JUL 18 11:49 L 128 L 98 H 40 / C 714 4.5 24 H 2.40 \ JUL 19 06:51 \ L 10.8 / L 3.2 L 129 / L 34.3 \ Cardiac Labs Cardiology Labs Cardiac Markers ProBNP: 597 pg/mL High (07/19/21 06:51:00) Troponin I High Sensitivity: 15.3 pg/mL (07/18/21 11:49:00) Diagnostics EKG Pending Echo Pending Electronically signed by Florencia [facility] Conversion Vp [employer] at 05/25/2022 6:15 PM CDT documented in this encounter Plan of Treatment Not on file documented as of this encounter Visit Diagnoses Not on filedocumented in this encounter Care Teams Folder Stitcher Operator Relationship Specialty Start Date End Date Elijah Serra, DO [address] [facility] [address] [place] [id number] PCP - General Family Medicine 03/11/23 documented as of this encounter
--- OUTSIDE RECORDS SUMMARY | 2024-08-13 12:45 | XMS_ITS | Encounter Summary ---
Author Organization [employer] ([place], [place], [place], [place]) Address [address] [place] [address] Care Team Providers Care Quilting Machine Operator Name Role Phone Elijah Serra DO Primary Care Provider [phone] Encounter Details Date Type Department Care Team (Late st Contact Info) Description 07/20/[address] [facility] [place] Family Medicine [address] [place] [address] ProviderMichael MD [address] [place] [address] Social History Tobacco Use Types [...] Do you speak a language other than Argentine at [facility]? No 09/05/2023 Do you [...] Conversion Note - Historical Provider, - 07/20/2021 2:00 AM CDT Solar Systems Designer Details Entered On: 07/20/2021 3:41 EDT Performed On: 07/20/2021 2:00 EDT by Nikia Hester NON EMP RN Order Details Transport Mode Order Detail : Ambulatory Order Detail : N/A IV Order Detail : 1 Oxygen Order Detail : 0 Nurse Collect Order Detail : 0 Lift/Transfer : Minimal Central Line Order Detail : No Room Service : Needs Assistance Arterial Line : No Patient Needs Meds Crushed/Liquid : No Nikia Hester NON EMP RN - 07/20/2021 3:41 EDT Electronically signed by Florencia [facility] Conversion Assembly Line Inspector [employer] at 05/25/2022 6:02 PM CDT documented in this encounter Plan of Treatment Not on file documented as of this encounter Visit Diagnoses Not on filedocumented in this encounter Care Teams Quilting Machine Operator Relationship Specialty Start Date End Date Elijah Serra, DO [address] [facility] [address] [place] [address] PCP - General Family Medicine 03/11/23 documented as of this encounter
--- OUTSIDE RECORDS SUMMARY | 2024-08-13 12:45 | XMS_ITS | Encounter Summary ---
Author Organization [employer] ([place], [place], [place], [place]) Address [address] [place] [address] Care Team Providers Care Supervisor Gate Services Name Role Phone Elijah Serra DO Primary Care Provider [phone] Encounter Details Date Type Department Care Team (Late st Contact Info) Description 07/18/2021 Transcribed Document [facility] [place] [address] [place] [address] ProviderMichael MD [address] [place] [address] Social History Tobacco Use Types [...] Do you speak a language other than [place]uneian at [facility]? No 09/05/2023 Do you want help with [...] [employer]ner Conversion Note - Historical Provider, - 07/18/2021 1:32 PM CDT Evaluation, Occupational Therapy Entered On: 07/20/2021 14:33 EDT Performed On: 07/20/2021 13:59 EDT by GUMARO CANALES OTR/L General Information, OT Visit Type, OT : Initial evaluation Patient Orders : Order Date Order Ordering MD 07/18/2021 13:32 OT Evaluation and Treatment Ordered By: SKIP ROBLES MD-INT Active Diagnoses : 07/18/2021 12:00 Acute kidney failure, unspecified 07/18/2021 12:00 Dizziness and giddiness 07/18/2021 12:00 Dyspnea, unspecified 07/18/2021 12:00 Edema, unspecified 07/18/2021 12:00 Hyperglycemia, unspecified 07/18/2021 12:00 Laceration without foreign body of unspecified upper arm, initial encounter 07/18/2021 12:00 Pneumonia, unspecified organism 07/18/2021 12:00 Unspecified fall, initial encounter 07/18/2021 12:00 Weakness Therapy Diagnosis, OT : Decreased ind in ADL and functional mobility Onset of Problem, OT : 07/20/2021 EDT Admission Date : 07/18/2021 13:28 Co-treated by, OT : Physical Therapist Personal Devices : Personal Devices No Devices Recorded Assistive Devices : Assistive Devices No Devices Recorded GUMARO CANALES, OTR/L - 07/20/2021 14:11 EDT General Status Patient Received Status : Up in chair Treatment Start Time : 07/20/2021 13:47 EDT Patient Left Status : Up in chair, RN/PCT informed, Family/Visitors at bedside, All needs met and within reach RN/PCT Informed Comment : ARTHUR tidwell'ed evaluation. Treatment End Time : 07/20/2021 13:59 EDT Treatment Time : 12 Minute(s) GUMARO CANALES OTR/Asia Naranjo 07/20/2021 14:11 EDT History and Environment, OT Living Situation, Therapy : Home Patient Lives With : Spouse Persons Assisting Patient at Home : Spouse Persons Providing Information : Patient Home Equipment, Therapy : Cane, Walker Home Setup : One story Stairs : Yes Stair Location(s) : Outside Outside Stairs, Number of Steps : 8 Railing Outside : Yes GUMARO CANALES OTR/Asia Naranjo 07/20/2021 14:11 EDT Prior LOF Bathing, OT : Independent Prior LOF Bed Mobility : Independent Prior LOF Upper Body Dressing, OT : Independent Prior LOF Lower Body Dressing, OT : Independent Prior LOF Toileting : Independent Prior LOF Transfer : Independent Prior LOF Grooming, OT : Independent Prior LOF Wheel Chair Mobility : Independent Prior LOF for IADLs, OT : Independent GUMARO CANAELS OTR/Asia Naranjo 07/20/2021 14:11 EDT Upper Extremity Upper Extremity Dominance : Right Right UE Active ROM : WFL Left UE Active ROM : WFL GUMARO CANALES OTR/Asia Naranjo 07/20/2021 14:11 EDT Self Care/Home Management, OT Self Feeding Assist Level, OT : Independent, complete Grooming Assist Level, OT : Independent, complete Bathing Assist Level, OT : Assist, minimal Upper Body Dressing Assist Level, OT : Supervision or set-up Lower Body Dressing Assist Level, OT : Assist, minimal Toileting Assist Level : Assist, minimal Toilet Transfer Assist Level : Assist, minimal Toilet Transfer Device : Belt, gait, Walker, rolling GUMARO CANALES, EMILIANA/Asia Naranjo 07/20/2021 14:11 EDT Functional Mobility Mobility Grid Bed Roll Left : Supervision/set-up Bed Roll Right : Supervision/set-up Bed Scooting : Supervision/set-up Supine to Sit : Supervision/set-up Sit to Stand : Supervision/set-up Bed to Chair : Rehab Minimal assistance Chair to Bed : Rehab Minimal assistance Stand to Sit : Supervision/set-up Sit to Supine : Supervision/set-up GUMARO CANALES OTR/Asia Naranjo 07/20/2021 14:11 EDT Cognition Assessment, OT Orientation : Oriented x 4 GUMARO CANALES OTR/Asia Naranjo 07/20/2021 14:11 EDT Indication Assessment, OT Occupational Therapy Indicated : Yes Problem List, OT : Impaired, bed mobility, Impaired, activities daily living, Impaired, endurance tolerance, Impaired functional mobility, Impaired, sitting balance, Impaired, standing balance, Impaired, strength, Impaired, transfers Potential Barriers, OT : Acuity of illness Rehabilitation Potential, OT : GUMARO Agustin OTR/L - 07/20/2021 14:11 EDT Plan of Care, OT OT Tx Plan/Goals Established w Patient : Yes OT Frequency Rehab : Five days per week OT Duration Rehab : Fourteen days OT Treatments Planned : Activities of daily living, Balance training, Functional mobility training, Pain management, Safety education, Therapeutic activities GUMARO CANALES OTR/L - 07/20/2021 14:11 EDT Bricklayer'S Assistant Goals, OT Dressing, Lower Body LTG Grid Goal #1 Activity : Dressing, Lower Body Assist : Independent, complete Date to Meet : 08/03/2021 EDT Goal Status : Initial goal GUMARO CANALES OTR/L - 07/20/2021 14:11 EDT Toilet Transfer LTG Grid Goal #1 Activity : Toilet Transfer, Ambulatory Assist : Independent, modified Date to Meet : 08/03/2021 EDT Goal Status : Initial goal GUMARO CANALES OTR/L - 07/20/2021 14:11 EDT Bed Mobility/ Bed Transfer LTG Grid Goal #1 Activity : Bed Mobility/Bed Transfer Assist : Independent, modified Date to Meet : 08/03/2021 EDT Goal Status : Initial goal GUMARO CANALES OTR/L - 07/20/2021 14:11 EDT Treatment Note Subjective Comment : Pt agreeable. Patient's Response to Treatment : Pt tolerated well. Additional Objective Information : Pt up in room. Pt participated in OT evaluation. Pt participated in functional mobility out in hallway, initially supervision. Pt ran into nursing cart in hallway and required min A to gain balance. Pt with 3 other LOB requiring correction. Pt given server service assistant and educated on safety. Pt verbalized understanding and agreed to use server service assistant. Assessment : Pt will benefit from continued skilled OT services. Pt with poor balance and needing increased balance for ADL and functional mobility safety. Plan for Treatment : See LTG GUMARO CANALES OTR/L - 07/20/2021 14:11 EDT Pain Assessment Pain Scaled Used : 0-10 Pain scale Pain Score Pre-Intervention : 5 GUMARO CANALES OTR/Asia - 07/20/2021 14:11 EDT Image 1 - Images currently included in the form version of this document have not been included in the text rendition version of the form. Anticipated Discharge Needs, OT/PT Anticipated Discharge to : Home, with home health, Unit, rehabilitation GUMARO CANALES OTR/Asia - 07/20/2021 14:[address] [facility] OT Charges OT Selfcare/Hm Mgmt Ea 15 Min : 1 OT Eval Low Complexity : 1 GUMARO CANALES OTR/Asia - 07/20/2021 14:11 EDT documented in this encounter Plan of Treatment Not on file documented as of this encounter Visit Diagnoses Not on filedocumented in this encounter Care Teams Supervisor Gate Services Relationship Specialty Start Date End Date Elijah Serra, DO [address] [facility] [address] [place] [address] PCP - General Family Medicine 03/11/23 documented as of this encounter
--- OUTSIDE RECORDS SUMMARY | 2024-08-13 12:45 | XMS_ITS | Encounter Summary ---
Author Organization [facility] Address [address] [place] [address] Support Name Relationship Address Phone Stepan Gold Personal Relationship [address] [place] [address] Mi Gold Personal Relationship Unknown [phone] Rosalind Mai Personal Relationship Unknown [phone] Vivi Ward Personal Relationship Unknown Care Team Providers Care Product Support Rep Name Role Phone Yehuda Barger MD Primary Care Provider Provider, Historical Unavailable Unavailable Willi Templeton MD Unavailable María Andre MD Unavailable Selene Rodriguez INJECTION MOLDING OPERATOR Unavailable Mariah Flowers INJECTION MOLDING OPERATOR Unavailable Neyda Beltran MD Unavailable Ryanne Roblero MD Unavailable Unavailable Mi Martin INJECTION MOLDING OPERATOR Unavailable [phone] Elijah Serra DO Primary Care Provider [phone] Micha Washington MD Unavailable Reason for Visit * Reason Onset Date Comments Follow-up 08/17/2016 1st post DC f/u call made per ACM. Encounter Details Date Type Department Care Team (Late st Contact Info) Description 08/17/2016 Telephone Population Health Management [address] [place] [address] Billie Pathak RN Follow-up (1st post DC f/u call made per AC. ) Social History Tobacco Use Types Packs/Day [...] encounter Miscellaneous Notes * Telephone Encounter - Billie Pathak RN - 08/17/2016 12:31 PM EDT 1st post DC f/u call made per [facility]. Pt. States, I m doing ok. I started taking that Miralax today because my bowels moved a little yesterday, but I don't want to get constipated. That's really all I'm worried about Pt. Denies any chest pain, shortness of breath, fever, falls, difficulty eating/drin mathew/chewing/swallowing, N/V/D, headaches, palpitations, confusion, s/s of infection, coughing, dizziness. Pt. States he is ambulating without incidence or assistance. Pt. States he isn't using the Lotrimen cream to his right heel and states, It's not open or anything and it's slowly heeling up. The doctor thought I might have a fungal infection, but I haven't used that cream in a while Pt's states his FBS this AM was 78. Pt. Controls his BS with his Insulin pump. Upon doing a med-rec the pt.States, I'm not going to get that Levemir filled because I control my Diabetes with my pump and itwas just messed up while I was in the hospital. I'm not going to treat my Diabetes with any other Insulin than what is in my pump Pt. States he has some slight swelling in his BLE, however, pt. States, It's not much at all . All upcoming appts. Reviewed with pt. Pt. Lives with his spouse, Stepan,who is able to assist and transport the pt. As needed. Pt. Denies any wants/needs/questions/concerns at this time. Will continue to follow as needed. Annamarie Pathak, draw machine operator Radio Program Director Total time spent on pt-20 minutes documented in this encounter Plan of Treatment Upcoming Encounters Date Type Department Care Team (Late st Contact Info) Description 11/06/2024 11:00 AM EDT Office Visit [facility] [address], [facility], [address] [place] [id number] Micha Washington MD [address] [address] [place], [place] [id number] Molly Figueroa PA-C [address] [address] [place] [id number] documented as of this encounter Visit Diagnoses Not on filedocumented in this encounter Additional Health Concerns Infection Onset Date Last Indicated Resolved Time 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 02/24/2017 02/22/2017 02/22/2017 04/02/2024 9:[address] documented as of this encounter Care Teams Product Support Rep Relationship Specialty Start Date End Date Yehuda Barger MD [address] [place] [address] [place] [address] [place] [address] PCP - General 02/16/09 04/13/23 Elijah Serra DO [address] [place] [address] PCP - General Family Medicine 07/21/23 Provider, Historical 02/16/16 08/25/16 Willi Templeton MD [address] [place] [address] [address] [place] [address] Gastroenterology 02/25/16 María Andre MD [facility] [address] [place] [address] [address] [place] [address] Gastroenterology 03/08/16 Selene Rodriguez APRN [address] [place] [address] [address] [place] [address] Gastroenterology 08/23/16 Mariah Flowers APRN [address] [place] [address] [address] [place] [address] Nurse Practitioner 08/26/16 Neyda Beltran MD [address] [place] [address] [address] [facility] [place] [address] Nephrology 03/17/17 Ryanne Roblero MD [address] [place] [address] [address] [facility] [place] [address] Rheumatology 03/01/18 Mi Martin APRN [address] [place] [address] [address] [place] [id number] Nurse Practitioner Nurse Practitioner 04/16/19 Micha Washington MD [address] [place] [address] [address] [place] [address] Endocrinology 08/06/24 08/06/24 documented as of this encounter
--- OUTSIDE RECORDS SUMMARY | 2024-08-13 12:45 | XMS_ITS | Encounter Summary ---
Author Organization [employer] ([place], [place], [place], [place]) Address [address] [place] [address] Care Team Providers Care Beverage Sales Consultant Name Role Phone Elijah Serra DO Primary Care Provider [phone] Encounter Details Date Type Department Care Team (Late st Contact Info) Description 07/19/2021 Transcribed Document [facility] [place] [address] [place] [address] ProviderMichael MD [address] [place] [address] Social History Tobacco Use [...] Do you speak a language other than [place] at [facility]? No 09/05/2023 Do you [...] Conversion Note - Historical Provider, - 07/19/2021 2:00 AM CDT Procurement Officer Details Entered On: 07/19/2021 2:35 EDT Performed On: 07/19/2021 2:00 EDT by Isaac Jensen Rn-Traveler Order Details Order Detail : N/A IV Order Detail : 1 Oxygen Order Detail : 0 Nurse Collect Order Detail : 0 Lift/Transfer : Minimal Central Line Order Detail : No Room Service : Needs Assistance Arterial Line : No Patient Needs Meds Crushed/Liquid : No Isaac Jensen Rn-Traveler - 07/19/2021 2:34 EDT documented in this encounter Plan of Treatment Not on file documented as of this encounter Visit Diagnoses Not on filedocumented in this encounter Care Teams Beverage Sales Consultant Relationship Specialty Start Date End Date Elijah Serra, DO [address] [facility] [address] [place] [address] PCP - General Family Medicine 03/11/23 documented as of this encounter
--- OUTSIDE RECORDS SUMMARY | 2024-08-13 12:45 | XMS_ITS | Encounter Summary ---
Author Organization [employer] ([place], [place], [place], [place]) Address [address] [place] [address] Care Team Providers Care Hospice Plan Administrator Name Role Phone Elijah Serra DO Primary Care Provider [phone] Encounter Details Date Type Department Care Team (Late st Contact Info) Description 07/18/2021 Transcribed Document [facility] [place] Family Medicine [address] [place] [address] ProviderMichael MD [address] [place] [address] Social History Tobacco Use Types [...] Do you speak a language other than Macedonian at [facility]? No 09/05/2023 Do you [...] Conversion Note - Historical Provider, - 07/18/2021 1:33 PM CDT Swallow Evaluation Entered On: 07/19/2021 8:10 EDT Performed On: 07/19/2021 8:04 EDT by MARCIAL FOWLER, RIPPLER General Information Visit Type, RIPPLER : Initial evaluation Patient Orders : Consult to Speech Language Pathology for Swallow Eval -111 Start: 07/18/21 13:33:00 EDT, Routine, For Swallow Eval and Treat - SKIP ROBLES MD-INT Admission Date : Admission Date/Time: 07/18/21 13:28:00 Medical Chart Reviewed, RIPPLER : Yes Personal Devices : Personal Devices No Devices Recorded Assistive Devices : Assistive Devices No Devices Recorded Active Diagnoses : 07/18/2021 12:00 Acute kidney failure, unspecified 07/18/2021 12:00 Dizziness and giddiness 07/18/2021 12:00 Dyspnea, unspecified 07/18/2021 12:00 Edema, unspecified 07/18/2021 12:00 Hyperglycemia, unspecified 07/18/2021 12:00 Laceration without foreign body of unspecified upper arm, initial encounter 07/18/2021 12:00 Pneumonia, unspecified organism 07/18/2021 12:00 Unspecified fall, initial encounter 07/18/2021 12:00 Weakness Therapy Diagnosis, RIPPLER : Pt presents without overt oropharygneal patterns. Recommendations: 1. Regular/thin 2. Medication per RN 3. No further evaluation/tx indicated Previous Swallow Precautions : No previous ST in EMR Diet/Intake Prior to Current Admission : Regular/thin Diet/Intake During Current Admission : Regular/thin Intubation Comment, RIPPLER : n/a Vital Signs RTF : Vitals Temp BP Pulse RR SpO2 FIO2 Date Wt(kg) Wt(lb) 07/19 06:00 ---- 146/76 --- 16 94 --- 07/18 91.8 202 07/19 02:00 ---- 130/67 --- 16 94 --- 07/18 22:42 ---- 119/61 --- 16 96 --- 07/18 17:53 ---- 104/56 --- -- 99 --- 07/18 15:00 ---- 119/78 64 -- 99 --- 24 Hr Tmax: No Data Available 36 Hr Tmax: No Data Available Vital Signs are the last 5 in the past 48 hours. Weights display the last 5 within 7 days. Initial Wt: 07/18 91.8 kg 202 lb Respiratory Assessment Comment : Room air MARCIAL FOWLER SLP - 07/19/2021 8:04 EDT General Status Patient Received Status, RIPPLER : Up in chair Treatment Start Time, RIPPLER : 07/19/2021 7:52 EDT Patient Left Status, RIPPLER : Up in chair Treatment End Time, RIPPLER : 07/19/2021 8:04 EDT Treatment Time, RIPPLER : 12 Minute(s) MARCIAL FOWLER SLP - 07/19/2021 8:04 EDT Pain Assessment Pain Scaled Used : 0-10 Pain scale Pain Score Pre-Intervention : 0 MARCIAL FOWLER SLP - 07/19/2021 8:04 EDT Image 1 - Images currently included in the form version of this document have not been included in the text rendition version of the form. Oral Mechanism Dysarthria : No Resonance Types : Appropriate Oral Mechanism for Daily Living : Intact RIPPLER Cough : Strong Facial Appearance: : Symmetrical Labial Appearance : Symmetrical Labial Function : All function intact Dental/Orthodontia : Dentures Condition of Dentition : Intact Lingual Appearance : Symmetrical Lingual Function : All function intact MARCIAL FOWLER SLP - 07/19/2021 8:04 EDT Bedside Swallow Swallow Outcome BS Swallow : Intact Head Control BS Swallow : Neutral head position Presentation Style BS Swallow : Self Swallow Position BS Swallow : Upright 90 degrees Trunk Control BS Swallow : Upright centered position Consistencies Trialed BS Swallow : Thin by straw, Pureed, Regular solids MARCIAL FOWLER SLP - 07/19/2021 8:04 EDT Swallow Impressions Impressions, BS Swallow : No evidence of dysphagia present Swallowing Outcome Measures : Functional Oral Intake Scale (FOIS) Functional Oral Intake Scale (FOIS) : Level VII Bedside Swallow Overall Impressions : Pt admitted with c/o low blood pressure, dizziness, and SOB. +LLL PNA per chart review. Blood sugar also noted to be very elevated. 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 RIPPLER consulted for bedside dysphagia evaluation. Today, pt is alert and oriented x4. He readily participates in evaluation and follows commands without difficulty. No overt speech/language deficits. No difficulty self feeding. Oral skills appear functional with all trialed consistencies. No overt pharyngeal patterns appreciated. Pt appears safe to continue with a regular diet and thin liquids. Medication per RN. No further evaluation/tx for oropharyngeal dysphagia is indicated at this time. MARCIAL FOWLER SLP - 07/19/2021 8:04 EDT Swallow Recommendations Recommended Diet Type, SwRec : Regular Recommended Liquid Diet, SwRec : Thin Feeding Presentation Style, SwRec : No restrictions Swallow Position, SwRec : Upright 90 degrees Comp Strategies/Sw Precautions, SwRec : Upright for meals Supervision Level w/Meals, SwRec : Independent, complete Recommended Med Present, SwRec : As per nursing MARCIAL FOWLER SLP - 07/19/2021 8:04 EDT Therapy Indication Assessment RIPPLER Indicated : No RIPPLER Not Indicated : At prior level of function RIPPLER Interdisciplinary Consultation Needs : No RIPPLER Rehabilitation Potential : At prior level of function MARCIAL FOWLER SLP - 07/19/2021 8:04 EDT Education Barriers To Learning : None evident Individuals Taught : Patient Readiness to Learn : Cooperative Readiness to Learn : Explanation MARCIAL FOWLER SLP - 07/19/2021 8:04 EDT RIPPLER Education Assessment Grid 1 Diet Recommendation : Verbalizes understanding Evaluation Results : Verbalizes understanding MARCIAL FOWLER SLP - 07/19/2021 8:[address] [facility] [facility] RIPPLER Charges Evaluation Swallowing Function : 1 MARCIAL FOWLER SLP - 07/19/2021 8:04 EDT Anticipated Discharge Needs, RIPPLER Anticipated Discharge to : Home, independently Recommend Continued Therapy at Discharge : No MARCIAL FOWLER SLP - 07/19/2021 8:04 EDT documented in this encounter Plan of Treatment Not on file documented as of this encounter Visit Diagnoses Not on filedocumented in this encounter Care Teams Hospice Plan Administrator Relationship Specialty Start Date End Date Elijah Srera, DO [address] [facility] [address] [place] [address] PCP - General Family Medicine 03/11/23 documented as of this encounter
--- OUTSIDE RECORDS SUMMARY | 2024-08-13 12:45 | XMS_ITS | Encounter Summary ---
Author Organization [employer] ([place], [place], [place], [place]) Address [address] [place] [address] Care Team Providers Care Bench Press Operator Name Role Phone Elijah Serra DO Primary Care Provider [phone] Encounter Details Date Type Department Care Team (Late st Contact Info) Description 07/19/2021 Transcribed Document [facility] [place] Medicine [address] [place] [address] ProviderMichael MD [address] [place] [address] Social History Tobacco Use Types [...] you? Never 09/05/2023 How often does anyone, comfrot walters family and friends, threaten you with [...] Do you speak a language other than [place] Islander at [facility]? No 09/05/2023 Do you want help [...] Conversion Note - Historical Provider, - 07/19/2021 1:09 PM CDT Patient: OBDULIO DOWD Age: 65 Years Sex: Male : 1955 Chief Complaint Pt presents with a laceration to the left arm. Reports weakness and multiple falls over the last 5 days. Takes Plavix related to stent placement. Increase in BLE edema. Pt states he is also SOB. Reason for Consultation ELIZABETH on CKD stage III History of Present Illness 65 years old man with past medical history of CKD stage III follows Dr. Dodge, complicated diabetes on insulin pump, hypertension, dyslipidemia, hypothyroidism, BPH, extensive CAD s/p CABG and stents and rheumatoid arthritis who presented with feeling dizzy for the last few days associated with low blood pressure and some shortness of breath. In the ED patient was noted to be hypotensive and noted to have blood sugar greater than 700. Creatinine was up to 2.4 mg/dL; that prompted nephrology consult.. On evaluation at bedside, is present.patient reported he follows Dr. Dodge for few years for CKD. He does not know his baseline kidney function, however thinks like it CKD stage III. He was told that his chronic kidney disease is likely from diabetes and from analgesic use in the past. Patient reported that recently his blood pressure was too low and because of that his medications were adjusted. Patient reported that he was having some lower extremity edema recently. Currently he is feeling much better; he denies chest pain or shortness of breath he is on room air. He denies nausea vomiting or abdominal pain. Review of Systems Negative except what documented in HPI Vital Signs T: 36.6 ??C TMIN: 36.3 ??C TMAX: 36.7 ??C HR: 68(Monitored) RR: 18 BP: 135/70 SpO2: 99% Oxygen Settings (Last) Oxygen Therapy Mode: Room air (07/19/21 11:00:00) Physical Exam General: Appears well, alert Neck: Supple, - JVD Resp: Mild bibasilar crackles CVS: S1, S2, RRR, no rubs or gallop rhythm, no murmur GI: Soft, non tender, BS+ Ext: + edema b/l Neuro: AAX3, non focal findings, no tremors Skin: - Rash Assessment/Plan ELIZABETH on CKD stage III Pseudohyponatremia Diabetes mellitus --uncontrolled hyperglycemia likely from insulin pump malfunction CAD s/p stents and CABG - Likely ? CHF [echo pending] Hypotension Dyslipidemia Hypothyroidism BPH Plan: -ELIZABETH on CKD stage III: Unknown baseline kidney function. Creatinine on admission 2.4 mg/dL >> improved to 1.4 mg/dL today. We will call Dr. Dodge office tomorrow to get the baseline kidney function. Will order urine analysis; I will not do a extensive work-up at this time as renal function has significantly improved. Renal US already ordered; result pending. Avoid nephrotoxins. Strict I's/O. Dose meds to GFR. No acute indication for dialysis at this time. We will continue to monitor closely. - Hyponatremia on admission: Sodium was 128 mmol/L; however with hyperglycemia corrected sodium is 138. -Anemia: Hemoglobin 10.8.. Normal ferritin and low percent Sat. will start PO iron tabs daily. - BPH: on tamsulosin. - Hypothyroidism: On levothyroxine. VTE Prophylaxis - Medical Clopidogrel 75 mg, Oral, Tab, Daily, Routine, Start 07/19/21 9:00:00 EDT, 07/18/21 16:13:00 EDT (SKIP ROBLES MD-INT) Heparin 5,000 Units, SubCutaneous, Inj, [id number], Routine, Start 07/18/21 15:00:00 EDT, 07/18/21 14:02:00 EDT (SKIP ROBLES MD-INT) Provider Information Primary Care Physician - ELIJAH SERRA DO-MELANIE Attending Physician - SKIP ROBLES MD-INT Admitting Physician - SKIP ROBLES MD-INT Consulting Physician - SKIP ROBLSE MD-INT Consulting Physician - JOHANA BARNEY MD-CAR Consulting Physician - CATHERINE VELAZQUEZ MD Consulting Physician - JELANI EDWARD MD Referring Physician - RAMSES GONZALEZ DO Problem List/Past Medical History Ongoing At risk for sleep apnea Calcium pyrophosphate deposition disease Chronic kidney disease stage 3 Coronary arteriosclerosis Dyspnea on exertion Erosive osteoarthrosis History of coronary artery bypass grafting Hyperlipidemia Hyperparathyroidism due to renal insufficiency Hypertension Hypothyroidism Secondary gout Type 1 diabetes mellitus Historical No qualifying data Procedure/Surgical History Cholecystectomy, Colonoscopy, Coronary artery bypass graft, Hip replacement, Knee replacement, Stented coronary artery, thyroidectomy. Medications Inpatient allopurinol, 100 mg= 1 Tab, Oral, Daily [...] PRN heparin, 5000 Units= 1 mL, SubCutaneous, [id number] hydrALAZINE, 5 mg= 0.25 mL, IV Push, [...] mg= 2 mL, IV Push, Q4H, PRN Home acetaminophen-HYDROcodone 325 mg-5 mg oral tablet, 1 Tab, Oral, TID Adult Aspirin Regimen 81 mg oral delayed release tablet, Oral, Daily allopurinol 100 mg oral tablet, 100 mg= 1 Tab, Oral, Daily baclofen 10 mg oral tablet clopidogrel 75 mg oral tablet, 75 mg= 1 Tab, Oral, Daily doxycycline monohydrate 100 mg oral capsule DULoxetine, 60 mg, Oral, Daily EPINEPHrine 0.3 mg injectable kit erythromycin 0.5% ophthalmic ointment, 0.5 Inch, Eye Right, TID fluticasone 50 mcg/inh nasal spray furosemide 40 mg oral tablet, 40 mg= 1 Tab, Oral, Daily gabapentin 600 mg oral tablet, 600 mg= 1 Tab, Oral, BID hydroxychloroquine 200 mg oral tablet, 400 mg= 2 Tab, Oral, Daily levothyroxine 125 mcg (0.125 mg) oral tablet, 125 mcg= 1 Tab, Oral, Daily lisinopril 2.5 mg oral tablet, 2.5 mg= 1 Tab, Oral, Daily Metoprolol Succinate ER 50 mg oral tablet, extended release, See Instructions moxifloxacin 0.5% ophthalmic solution Oxervate 0.002 % eye drops Potassium Chloride (Tiq-Kbax-Oxn M10) 10 mEq oral tablet, extended release, 10 mEq= 1 Tab, Oral, Daily prednisoLONE acetate 1% ophthalmic suspension rosuvastatin 20 mg oral tablet, 20 mg= 1 Tab, Oral, Daily sucralfate 1 g oral tablet, 1 Gram= 1 Tab, Oral, QID tamsulosin 0.4 mg oral capsule, 0.4 mg= 1 Cap, Oral, Daily traZODone 150 mg oral tablet, 150 mg= 1 Tab, Oral, At Bedtime Zirgan 0.15% ophthalmic gel Allergies Contrast Dye Tape iodine topical (Unknown) Social History Alcohol Alcohol Use History No. Substance Abuse Drug Use Hx: No. Use in Last 12 Months: No. Tobacco Never (less than 100 in lifetime) Smoking Status. Never Smokeless Tobacco Status. Lab Results Test Name Test Result Date/Time Sodium Level 140 mmol/L 07/19/2021 06:51 EDT Potassium Level 3.9 mmol/L 07/19/2021 06:51 EDT Chloride Level 109 mmol/L 07/19/2021 06:51 EDT Carbon Dioxide Level 27 mmol/L 07/19/2021 06:51 EDT Anion Gap 8 (Low) 07/19/2021 06:51 EDT Glucose Level 262 mg/dL (High) 07/19/2021 06:51 EDT Blood Urea Nitrogen 18 mg/dL 07/19/2021 06:51 EDT Creatinine Level 1.40 mg/dL (High) 07/19/2021 06:51 EDT eGFR >60 mL/min/1.73m2 07/19/2021 06:51 EDT eGFR NonAfrican 51 mL/min/1.73m2 (Low) 07/19/2021 06:51 EDT Bun/Creatinine 12.9 07/19/2021 06:51 EDT Calcium Level 8.8 mg/dL 07/19/2021 06:51 EDT Protein Total 6.5 Gram/dL 07/19/2021 06:51 [...] Device Comment 1 Notified Nurse RBV 07/19/2021 10:42 EDT Device Comment 1 Notified Nurse RBV 07/19/2021 05:43 EDT Device Comment 1 Notified Nurse RBV 07/18/2021 22:33 EDT Device Comment 1 Notified Nurse RBV 07/18/2021 16:32 EDT Glucose POC2 338 mg/dL (High) 07/19/2021 10:42 EDT Glucose POC2 218 mg/dL (High) 07/19/2021 05:43 EDT Glucose POC2 151 mg/dL (High) 07/18/2021 22:33 EDT Glucose POC2 331 mg/dL (High) 07/18/2021 16:32 EDT Folate Level 6.30 ng/mL 07/19/2021 06:51 EDT Vitamin B12 Level 429 pg/mL 07/19/2021 06:51 EDT ProBNP 597 pg/mL (High) 07/19/2021 06:51 EDT WBC 3.2 K/uL (Low) 07/19/2021 06:51 EDT RBC 4.27 Million/uL 07/19/2021 06:51 EDT Hgb 10.8 g/dL (Low) 07/19/2021 06:51 EDT Hct 34.3 % (Low) 07/19/2021 06:51 EDT MCV 80.3 fL 07/19/2021 06:51 EDT MCH 25.3 pg (Low) 07/19/2021 06:51 EDT MCHC 31.5 Gram/dL (Low) 07/19/2021 06:51 EDT Platelet Count 129 K/uL (Low) 07/19/2021 06:51 EDT MPV 8.8 fL (Low) 07/19/2021 06:51 EDT RDW 15.7 % (High) 07/19/2021 06:51 EDT Neut % 49.6 % 07/19/2021 06:51 EDT Neut # 1.60 K/uL 07/19/2021 06:51 EDT Lymph % 22.9 % 07/19/2021 06:51 EDT Lymph # 0.74 x10(3)/uL (Low) 07/19/2021 06:51 EDT Mcduffie % 6.2 % 07/19/2021 06:51 EDT Mcduffie # 0.20 K/uL 07/19/2021 06:51 EDT Eos % 19.8 % (High) 07/19/2021 06:51 EDT Eos # 0.64 x10(3)/uL 07/19/2021 06:51 EDT Baso % 1.2 % 07/19/2021 06:51 EDT Baso # 0.04 x10(3)/uL 07/19/2021 06:51 EDT Slide Review No 07/19/2021 06:51 EDT IG# .01 x10(3)/uL 07/19/2021 06:51 EDT IG% 0.30 % 07/19/2021 06:51 EDT Iron Level 26 mcg/dL (Low) 07/19/2021 [...] (COVID19 PCR) Not Detected 07/18/2021 13:20 EDT Electronically signed by Florencia, [facility] Conversion Journeyman Wireman Cerner at 05/25/2022 6:30 PM CDT documented in this encounter Plan of Treatment Not on file documented as of this encounter Visit Diagnoses Not on filedocumented in this encounter Care Teams Bench Press Operator Relationship Specialty Start Date End Date Elijah Serra, DO [address] [facility] [address] [place] [id number] PCP - General Family Medicine 03/11/23 documented as of this encounter
--- OUTSIDE RECORDS SUMMARY | 2024-08-13 12:45 | XMS_ITS | Encounter Summary ---
Author Organization [facility] Address [address] [place] [address] Support Name Relationship Address Phone Stepan Gold Personal Relationship [address] [place] [address] Mi Asif Personal Relationship Unknown Rosalind Andersonill Personal Relationship Unknown [phone] Vivi Ward Personal Relationship Unknown Care Team Providers Care Stranner Name Role Phone Willi Templeton MD Unavailable [phone] María Andre MD Unavailable Selene Rodriguez LAB SYSTEMS ANALYST Unavailable Mariah Flowers LAB SYSTEMS ANALYST Unavailable [phone] Neyda Beltran MD Unavailable Ryanne Roblero MD Unavailable Unavailable Mi Martin LAB SYSTEMS ANALYST Unavailable [phone] Elijah Serra DO Primary Care Provider [phone] Micha Washington MD Unavailable Encounter Details Date Type Department Care Team (Latest Contact Info) Description 08/06/2024 Travel Social History Tobacco Use Types Packs/Day Years [...] materials from doctor or pharmacy Never 04/29/2023 [facility] Utilities Answer Date Recorded In the past 12 months has th e [employer], gas, oil, or water company threatened to [...] any time in the past [address] [facility] [place], were you homeless or living in a assisted (including now)? No 04/02/2024 Sex and Gender Information Value Date Recorded Sex Assigned at Not on file Legal Sex Male 9:48 PM EST Gender Identity Not on file Sexual Orientation Not on file documented as of this encounter Plan of Treatment Upcoming Encounters Date Type Department Care Team (Late st Contact Info) Description 11/06/2024 11:00 AM EDT Office Visit [facility] [address] [place] [address], [facility], [address] [place] [address] Micha Washington MD [address] [place] [address] [place] [address] [id number] Molly Figueroa PA-C [address] [place] [address] [place] [address] [id number] documented as of this encounter Visit Diagnoses Not on filedocumented in this encounter Care Teams Stranner Relationship Specialty Start Date End Date Elijah Serra DO [address] [place] [address] PCP - General Family Medicine 07/21/23 Willi Templeton MD [address] [place] [address] [address] [facility] [place] [address] Gastroenterology 02/25/16 María Andre MD [address] [place] [address] [address] [place] [address] Gastroenterology 03/08/16 Selene Rodriguez APRN [address] [place] [address] [address] [place] [address] Gastroenterology 08/23/16 Mariah Flowers APRN [address] [place] [address] [address] [place] [address] Nurse Practitioner 08/26/16 Neyda Beltran MD [address] [place] [address] [address] [place] [address] Nephrology 03/17/17 Ryanne Roblero MD [address] [place] [address] [address] [place] [address] Rheumatology 03/01/18 Mi Martin APRN [address] [place] [address] [address] [place] [id number] Nurse Practitioner Nurse Practitioner 04/16/19 Micha Washington MD [address] [place] [address] [address] [place] [address] Endocrinology 08/06/24 08/06/24 documented as of this encounter
--- OUTSIDE RECORDS SUMMARY | 2024-08-13 12:45 | XMS_ITS | Clinical Summary ---
Author Organization [facility] Address [address] [place] [address] Support Name Relationship Address Phone Stepan Gold Personal Relationship [address] [place] [address] Mi Asif Personal Relationship Unknown Rosalind Andersonill Personal Relationship Unknown [phone] Vivi Ward Personal Relationship Unknown Care Team Providers Care Service Counselor Name Role Phone Willi Templeton MD Unavailable [phone] María Andre MD Unavailable Selene Rodriguez HEAVY EQUIPMENT SALES ASSOCIATE Unavailable [phone] Mariah Flowers HEAVY EQUIPMENT SALES ASSOCIATE Unavailable Neyda Beltran MD Unavailable Raynne Roblero MD Unavailable Unavailable Mi Martin HEAVY EQUIPMENT SALES ASSOCIATE Unavailable [phone] Elijah Serra DO Primary Care Provider Allergies Active Allergy Reactions Criticality Noted Date Comments Iodinated Contrast Media Anaphylaxis 02/16/2009 Pt required premedication prior to receiving IV dye. Other Rash 02/10/2012 Tape Medications sodium chloride (SALINE NASAL MIST) 0.65 %Indications:Sinus drainage,Post-nasa l drip,Nasal congestion,Acute recurrent frontal sinusitis [place] 2 Sprays in nose Every 4 hours as needed. 1 Package QS 018 Active lancets (ONETOUCH DELICA LANCETS) 33 gauge MiscIndications:Ty pe 1 diabetes mellitus with diabetic neuropathic arthropathy (HCC) 1 Each As directed. Patient to check blood sugar as directed 3-4 times/day 360 Each 3 018 Active cetirizine (ZYRTEC) 10 mg tabletIndications: Allergic Rhinitis Take 1 Tab by mouth Daily. 30 Tab 3 018 Active blood sugar diagnostic (ACCU-CHEK NEVIN PLUS TEST STRP) 1 Each Before meals and at bedtime. Active fluocinonide (LIDEX) 0.05 % ointmentIndication s:Contact dermatitis, unspecified contact dermatitis type, unspecified trigger Apply twice a day sparingly when necessary, lower legs 60 g 1 020 Active clopidogreL (PLAVIX) 75 mg tabletIndications: Cerebral Thromboembolism Prevention Take 1 Tablet by mouth Daily. 90 Tablet 3 022 Active fluticasone propionate (FLONASE) 50 mcg/Actuation nasal sprayIndications:A llergic Rhinitis [place] 2 Sprays in nose Once Daily. (in each nostril) 3 Each 3 022 Active aspirin (ASPIRIN) [address] tabletIndications: Cerebral Thromboembolism Prevention Take 81 mg by mouth Once Daily. Indications: prevention for a blood clot going to the brain Active DULoxetine (CYMBALTA) [address] capsuleIndications :Diabetic Peripheral Neuropathy Take 60 mg by mouth Once Daily. Indications: diabetic complication causing injury to some body nerves Active Additional Information Patient taking differently:60 mg OralTWICE A DAY, Indications: major depressive disorder, Reported on 08/06/2024 hydrOXYchloroQUINE (PLAQUENIL) 200 mg tabletIndications: Rheumatoid Arthritis Take 400 mg by mouth At bedtime. Indications: rheumatoid arthritis Active famotidine (PEPCID) 20 mg tabletIndications: Dyspepsia Prevention Take 40 mg by mouth Once Daily. Indications: prevent indigestion Activ e Additional Information Patient taking differently:40 mg OralPRN, Indications: Dyspepsia Prevention, Reported on 08/06/2024 magnesium oxide (MAG-OX) 400 mg tabletIndications: hypomagnesemia Take 400 mg by mouth Twice a day. Indications: low amount of magnesium in the blood Active HYDROcodone-acetam inophen (NORCO) 5-325 mg per tabletIndications: Pain Take 1 Tablet by mouth Every 4 to 6 Hours as needed for Pain. Indications: pain Active diphenoxylate-atro pine (LOMOTIL) 2.5-0.025 mg per tabletIndications: diarrhea Take 1 Tablet by mouth Every 6 hours as needed for Diarrhea. Indications: diarrhea Active Insulin [place], Disposable, (PEN NEEDLE) 32 gauge x NdleIndications:Ty pe 1 diabetes mellitus with diabetic polyneuropathy (HCC) 1 Each With meals and at bedtime. 400 Each 3 024 Active allopurinoL (ZYLOPRIM) 300 mg tablet Take 300 mg by mouth Once Daily. Active Gabapentin (NEURONTIN) 800 mg tablet Take 800 mg by mouth Once Daily. Active Gabapentin (NEURONTIN) 800 mg tablet Take 1,600 mg by mouth At bedtime. Active metoprolol succinate ER (TOPROL XL) 25 mg 24 hr tablet Take 12.5 mg by mouth Once Daily. Active colchicine (COLCRYS) 0.6 mg tabletIndications: prevention of acute gout attack Take 0.6 mg by mouth Once Daily. Indications: treatment to prevent acute gout attack Active colestipoL (COLESTID) 1 gram tablet Take 1 g by mouth Twice a day. Active Donepezil (ARICEPT) 10 mg Tab Take 10 mg by mouth Once Daily. Active finasteride (PROSCAR) 5 mg tablet Take 5 mg by mouth Once Daily. Active valACYclovir (VALTREX) 500 mg tablet Take 500 mg by mouth Once Daily. Active furosemide (LASIX) 40 mg tabletIndications: Edema Take 1 Tablet by mouth Once daily as needed (weight gain of 2 pounds daily). Indications: visible water retention 90 Tablet 3 Active potassium chloride (KLOR-CON M10) 10 mEq tabletIndications: hypokalemia prevention Take 1 Tablet by mouth Once daily as needed (take daily when lasix needed). Indications: prevention of low potassium in the blood 90 Tablet 3 025 Active traZODone (DESYREL) 150 mg tabletIndications: Insomnia Take 1 Tablet by mouth At bedtime. Indications: difficulty sleeping 90 Tablet 3 025 Active tiZANidine (ZANAFLEX) 4 mg tabletIndications: DJD (degenerative joint disease) Take 1 Tablet by mouth Every 8 hours as needed for Muscle spasms. 180 Tablet 2 02/26/2 025 Active tamsulosin (FLOMAX) 0.4 mg capsuleIndications :Benign Prostatic Hyperplasia Take 2 Caps by mouth Once Daily. Indications: enlarged prostate 60 Capsule 1 Active sucralfate (CARAFATE) 1 gram tabletIndications: gastroesophageal reflux disease Take 1 Tablet by mouth Before meals and at bedtime. Indications: gastroesophageal reflux disease 360 Tablet 3 Active rosuvastatin (CRESTOR) 20 mg tabletIndications: hypercholesterolem ia Take 1 Tablet by mouth At bedtime. Indications: high cholesterol 90 Tablet 3 Active diclofenac sodium (VOLTAREN) 1 % topical gelIndications:PNA (pneumonia) 2 g by Topical route Four times a day. 100 g Active ipratropium-albute roL (DUO-NEB) 0.5 mg-3 mg(2.5 mg base)/3 mL nebulizer solutionIndication s:PNA (pneumonia) Take 3 mL by nebulization Every 6 hours as needed for Wheezing. 120 Each 1 Active Budesonide-Formote rol (SYMBICORT 160-4.5 MCG) 160-4.5 mcg/Actuation inhalerIndications :Pneumonia due to infectious organism, unspecified laterality, unspecified part of lung Take 2 Puffs by inhalation Twice a day. 1 Each Active TOUJEO SOLOSTAR U-300 INSULIN 300 unit/mL (1.5 mL) injectionIndicatio ns:Type 1 diabetes mellitus with diabetic polyneuropathy (HCC) Administer 14 Units subcutaneously At bedtime. Please dispense 4.5 mL/3 pens per 3 mo supply - THIS IS A DOSE ADJUSTMENT - PLEASE REMOVE PREVIOUS DOSE FROM PROFILE 025 Active NOVOLOG FLEXPEN U-100 INSULIN 100 unit/mL (3 mL) sub-q penIndications:Typ e 1 diabetes mellitus with diabetic polyneuropathy (HCC) Administer 10-12 Units subcutaneously Three times a day with meals. Per carb countin unit/4 gm qam, 1 unit/5 gm qnoon, 1 unit/4 gm pm - MAX DOSE 36 UNITS DAILY - 45 mL/15 pens per 3 mo supply - THIS IS A DOSE ADJUSTMENT - PLEASE REMOVE PREVIOUS DOSE FROM PROFILE 45 mL 3 Active levothyroxine (SYNTHROID) 150 mcg tabletIndications: TSH elevation Take 1 Tablet by mouth Once Daily. 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 07/21/2023 Oropharyngeal dysphagia 06/01/2023 Encounter for long-term (current) use of insulin 03/19/2019 Post-surgical hypothyroidism 03/19/2019 Overview (03/19/2019): left and isthmus 1970 Hypoglycemia due to type 1 diabetes mellitus 06/2018 Benign essential hypertension 12/12/2018 Assessment & Plan (05/29/2023 3:44 PM EDT): Continue metoprolol and lisinopril S/P CABG x 4 12/12/2018 Nephrolithiasis 12/12/2018 Primary osteoarthritis involving multiple joints 12/12/2018 Overview (01/15/2019): Hands , low back, feet S/p bilateral hip replacements ( left -35 years ago, right in 2013 ) , right knee (14 years ago) Assessment & Plan (05/01/2020 11:34 AM EDT): -c/w pain management -c/w cymbalta 120 mg daily -encouraged regular exercise and weight loss -can use Tylenol PRN Assessment & Plan (12/20/2019 9:12 AM EST): -c/w pain management -c/w cymbalta 120 mg daily -encouraged regular exercise and weight loss -can use Tylenol PRN Assessment & Plan (10/01/2019 10:11 AM EDT): -c/w pain management -c/w cymbalta 90 mg daily -weight loss and regular exercise Assessment & Plan (04/16/2019 1:45 PM EDT): -c/w pain management -c/w cymbalta 90 mg daily -weight loss and regular exercise Assessment & Plan (01/15/2019 2:18 PM EST): C/w pain management Increase cymbalta to 90 mg daily Weight loss and regular exercise Atherosclerosis of [place] of both lower extremities with rest pain 12/12/2018 Erosive osteoarthritis 09/14/2018 Overview (09/14/2018): - Daypro which helped for 5-6 years with good benefit but d/c due to CKD, since then has been on PRN tylenol 3 as needed - 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 - p/w hands, feet, lower back -H/o back injections in the past which helped him for a month or so Assessment & Plan (05/01/2020 11:33 AM EDT): -today with feet, wrists, hands, back -pain rates 08/16 -c/w Plaquenil 400 mg daily -last eye exam 04/2020 -states having some retinal problems going to [facility] to specialist states going to do laser on them for the bleeding and new vessels -dry mouth uses biotene mouthwash -dry eyes uses OTC eye drops -no new gout flare -labs Assessment & Plan (12/20/2019 9:10 AM EST): -today with hand and back pain states hands swollen has been back on plaquenil since September now -c/w Plaquenil 400 mg daily -labs done prior to apt reviewed Assessment & Plan (10/01/2019 10:42 AM EDT): -stable with no inflammation on exam today but with hand pain states started taking plaquenil again about 1 week ago because of his hand pain and feet pain -c/w Plaquenil 400 mg daily -labs 2 weeks after finishes antibiotics in infection has cleared already ordered Assessment & Plan (07/31/2019 1:47 PM EDT): Stable with no inflammation on exam today but increased pains and feels plaquenil not helping Hence will hold off on the plaquenil today and re eval in 2 months Stop plaquenil Labs today Assessment & Plan (04/16/2019 2:06 PM EDT): -stable with chronic pains -states better now -c/w plaquenil 400 mg daily -labs Assessment & Plan (01/15/2019 2:13 PM EST): Stable with chronic pains States better now C/w plaquenil 200 mg BID Labs ordered Assessment & Plan (09/14/2018 6:01 PM EDT): -stable at this time had increased pain 1 week ago that lasted a couple of days then improved -continue with Plaquenil 200 mg BID 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 09/14/2018 Overview (09/14/2018): - Xrays suggestive of gouty erosions in right 3,5 DIP - h/o gout - not crystal proven - nephrolithiasis + - CKD + stage 3 - h/o Gout 2 episodes so far in the both toe right > left , last attack 2 years ago Assessment & Plan (05/01/2020 11:32 AM EDT): -last uric acid 4.9 will recheck today -c/w allopurinol 100 mg daily -will decrease colchicine to every 2 days for 2 weeks if stable and no gout flares then will stop -labs Assessment & Plan (12/20/2019 9:12 AM EST): -has not been off of colchicine since 6 weeks now due to cost tried to send in liquid and it was more expensive will try capsules to see if that is less expensive -states for a couple of weeks his feet hurt bad States was a gout flare -last uric acid in 07/2019 was 4.9 will recheck next visit -c/w allopurinol 100 mg daily -will try colchicine capsules to see if it is cheaper he will let us know and start back on it when he gets one -labs done prior to apt reviewed Assessment & Plan (10/01/2019 10:40 AM EDT): -last gout flare he states was last week however ran out of colchicine -uric acid 4.9 in 07/2019 -c/w allopurinol 100 mg daily -states colchicine is $170.00 for a 3 month supply been out for 2 weeks ago will try liquid colchicine to see if he can afraid that -start colchicine 0.6 mg every day until flare has resolved -labs 2 weeks after he finishes antibiotics if infection has cleared Assessment & Plan (07/31/2019 1:46 PM EDT): No recent flares Uric acid today C/w allopurinol 100 mg daily Decrease colchicine 0.6 mg every other day Labs today Assessment & Plan (04/16/2019 1:43 PM EDT): -no recent flares -last uric acid 3.6 on 01/2019 goal less than 5 given tophi and below goal -c/w allopurinol 100 mg daily -c/w colchicine 0.6 mg daily -labs today Assessment & Plan (01/15/2019 2:15 PM EST): No recent flares Last uric acid 5.1 , goal less than 5 given tophi C/w allopurinol 100 mg daily C/w colchicine 0.6 mg daily Labs today Assessment & Plan (09/14/2018 6:02 PM EDT): -no recent flares -last uric acid 6, need urate lowering therapy given tophi goal is 5 -continue with colchicine 0.6 mg daily -continue with allopurinol 100 mg daily -labs today -will increase allopurinol if uric acid not below 5 Long-term use of Plaquenil 09/14/2018 Assessment & Plan (05/01/2020 11:35 AM EDT): -last eye exam 04/2020 -states having some retinal problems going to [facility] to specialist states going to do laser on them for the bleeding and new vessels. Patient unsure if they knew he was on Plaquenil so will call and let them know. -went over with patient importance of getting regular routine plaquenil eye exam to monitor for plaquenil toxicity Assessment & Plan (12/20/2019 9:12 AM EST): -Last eye exam 01/2019 -Next eye exam 01/2020 -tolerating medication well -went over with patient importance of getting regular routine plaquenil eye exam to monitor for plaquenil toxicity Assessment & Plan (10/01/2019 10:42 AM EDT): -Last eye exam 01/2019 -Next eye exam 01/2020 -tolerating medication well -went over with patient importance of getting regular routine plaquenil eye exam to monitor for plaquenil toxicity Assessment & Plan (07/31/2019 1:54 PM EDT): Last eye exam normal Jan 2019 Labs today Assessment & Plan (04/16/2019 2:03 PM EDT): -last eye exam normal jan 2019 to monitor for plaquenil toxicity -labs today Assessment & Plan (01/15/2019 2:16 PM EST): Last eye exam normal jan 2019 Labs today Assessment & Plan (09/14/2018 4:44 PM EDT): -continue with Plaquenil 200 mg BID -Last eye exam Dec 2017 -keep routine eye exam scheduled -tolerating medications well PNA (pneumonia) 02/22/2017 Assessment & Plan (04/02/2024 3:41 AM EST): Concern for possible aspiration on CT. Speech consulted Sputum cx if able Continue antibiotics I-S use DuoNebs DM1 Glargine, SSI with accuchecks HTN CHACHA Hypothyroidism Continue home meds Assessment & Plan (05/29/2023 3:43 PM EDT): On Rocephin and azithromycin S/P coronary artery stent placement 08/05/2016 IVP Dye 02/10/2012 Synovitis of foot 08/19/2011 Coronary artery disease due to calcified coronar y lesion 07/13/2009 Mixed hyperlipidemia 07/13/2009 Resolved Problems Problem Noted Date Diagnosed Date Resolved Date B12 deficiency 07/21/2023 11/30/2023 Type 2 diabetes mellitus, wi th long-term current use of insulin 05/29/2023 07/21/2023 Assessment & Plan (05/29/2023 3:44 PM EDT): Continue Levemir insulin On sliding scale of insulin Acute metabolic encephalopathy 05/29/2023 07/21/2023 Assessment & Plan (05/31/2023 3:02 PM EDT): From CAP. Continue ABX. MRI head (-) for acute stroke. EEG pending. Assessment & Plan (05/29/2023 3:45 PM EDT): Mentation is currently improved Manage underlying pneumonia Erosive osteoarthritis of multiple sites 05/01/2020 05/01/2020 Insulin pump status 03/19/2019 07/21/19 24 Uncontrolled type 2 diabetes mellitus with peripheral neuropathy 12/12/2018 04/30/2019 Vitamin D deficiency 12/12/2018 024 CKD (chronic kidney disease) stage 3, GFR 30-59 ml/min 09/14/2018 07/21/2023 Assessment & Plan (10/01/2019 10:14 AM EDT): -stable -c/w follow up with Dr. Beltran Assessment & Plan (07/31/2019 1:44 PM EDT): Mini C/w follow up with Dr. Beltran Assessment & Plan (04/16/2019 1:43 PM EDT): -stable currently -appreciate nephro follow up Assessment & Plan (01/15/2019 2:13 PM EST): Stable currently Appreciate nephro follow up Assessment & Plan (09/14/2018 6:03 PM EDT): -stable at this time -follows up with nephrology on routine bases Acute on chronic diastolic A CC/AHA stage C congestive heart failure 03/01/2017 07/21/2023 Sepsis 02/22/2017 03/30/2017 Influenza A 02/22/2017 07/21/2023 Uncontrolled type 1 diabetes mellitus with diabetic peripheral neuropathy 02/14/2017 Iron deficiency anemia due t o chronic blood loss 12/02/2016 06/03/2017 Renal failure (ARF), acute on chronic 08/26/2016 04/28/2017 Dyspnea 08/15/2016 12/02/2016 Chest tightness 08/15/2016 12/02/2016 Acute kidney injury 08/15/2016 03/30/19 18 Exertional dyspnea 08/15/2016 8 Elevated troponin 08/08/2016 12/02/2016 Type 2 diabetes mellitus wit h complication, with long-term current use of insulin 01/02/2016 DJD (degenerative joint disease) 07/13/2009 07/21/2023 Adult onset hypothyroidism 07/13/2009 0 07/21/2023 HTN (hypertension) 07/13/2009 9 Encounters Date Type Department Care Team Description 08/06/2024 10:45 AM EDT Office Visit [address], [address] [place] [address] Micha Washington MD Type 1 diabetes mellitus with diabetic polyneuropathy (HCC) (Primary Dx); Hyperglycemia due to type 1 diabetes mellitus (HCC); Post-surgical hypothyroidism; Benign essential hypertension; Mixed hyperlipidemia; 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, unspecified proliferative retinopathy type (HCC); Encounter for long-term (current) use of insulin (HCC) 08/06/2024 Travel 08/04/2024 Travel 07/15/2024 8:22 AM EDT - 07/15/2024 2:12 PM EDT Emergency Emergency Department [address] [place] [address] Carlota Huynh MD Multifocal pneumonia (Primary Dx); Hypoxemia Discharge Disposition: Home or Self Care 07/15/2024 Travel 07/12/[address], [address] [place] [address] Micha Washington MD TSH elevation from Last 3 Months Immunizations Immunization Administration Dates Next Due FLUZONE .5mL QS FLU VACCINE 3yr+ SDS 01/08/2015, 12/27/2012 FLUZONE .5mL TS FLU VACCINE 65yr+ SDS HIGH-DOSE 12/18/2015 Hepatitis A Adult 07/08/2017 [id number] & [id number] FLUZONE, AFL URIA 0.25mL 6-35mos QS, .50mL 3YR+ QV MDV 11/10/2018,12/05/2017 [id number] FLUCELVAX 0.5mL QS FLU VACCINE 4yr+ SDS 0 03/03/2017 Influenza (whole) 12/18/2013,12/09/2011 Tdap 07/15/2024,08/24/2012 pneumococcal CONJUGATE (13 VALENT) 01/07/2011 Family History Medical History Relation Name Comments Cancer Brother Diabetes Brother Elevated Lipids Brother Heart Disease Brother Renal Disease Brother Diabetes Mother Elevated Lipids Mother Heart Disease Mother Stroke Mother Relation Name Status Comments Brother Father Alive Mother Social History Tobacco Use Types Packs/Day Years [...] materials from doctor or pharmacy Never 04/29/2023 [facility] Utilities Answer Date Recorded In the past 12 months has e [employer], gas, oil, or water [employer] threatened to shut off services in your [...] any time in the past 12 [facility], were you homeless or living in a snf (including now)? No 04/02/2024 Sex and Gender Information Value Date Recorded Sex Assigned at Not on file Legal Sex Male 9:48 PM EST Gender Identity Not on file Sexual Orientation Not on file Last Filed Vital Signs Vital Sign Reading Time Taken Comments Blood Pressure 136/76 08/06/2024 10:59 AM EDT Pulse 75 08/06/2024 10:59 AM EDT Temperature 36.6 C (97.8 F) 07/15/2024 2:11 PM EDT Respiratory Rate 17 07/15/2024 2:05 PM EDT Oxygen Saturation 98% 07/15/2024 2:05 PM EDT Inhaled Oxygen Concentration - - Weight 80.3 kg (177 lb) 08/06/2024 10:59 AM EDT Height 175.3 cm (5' 9 ) 08/06/2024 10:59 AM EDT Body Mass Index 26.14 08/06/2024 10:59 AM EDT Plan of Treatment Upcoming Encounters Date Type Department Care Team (Late st Contact Info) Description 11/06/2024 11:00 AM EDT Office Visit [facility] Endocrinology [place] [address], [address], [address] [place] [address] Micha Washington MD [address] [place] [address] Molly Figueroa PA-C [address] [place] [address] [place] [address] Health Maintenance Due Date Last Done Comments COLOGUARD 1955 HEP C SCREENING 1955 SIGMOIDOSCOPY 1955 PNEUMOCOCCAL VACCINE 65+ YEARS (2 of 2 - PPSV23) 03/04/2011 01/07/2011 FIT 03/24/2018 03/24/2017, 03/10, 08/09/2016, Additional history exists ANNUAL WELLNESS EXAM 12/20/2018 12/19/2017, 12/21/2016, 12/18/2015, Additional history exists ANNUAL DIABETIC EYE EXAM 03/13/2022 03/13/2021 COVID-19 Vaccine ( season) 2024 01/26/2024, 01/24/2023, 11/11/2020, Additional history exists INFLUENZA VACCINE (#1) 2024 , 12/01/2022, 12/21/2021, Additional history exists HEMOGLOBIN A1C EVERY 6 MO 02/05/20252024, 04/02/2024, 11/30/2023, Additional history exists ANNUAL DIABETIC URINE MICROALBUMIN 08/06/2025 08/06/2024, 07/21/2023, 05/01/2020, Additional history exists COLONOSCOPY 03/30/2032 03/30/2022, 07/0 07/2016, 08/11/2016, Additional history exists Colorectal Screening Combination 03/30/2032 DTAP/TDAP/TD VACCINE (4 - Td or Tdap) 07/15/2034 07/15/2024, 04/26/2019, 08/24/2012 HEP A VACCINE Aged Out 07/08/2017 No longer elig ible based on patient's age to complete this topic Shingles Vaccine (Shingrix) Completed 09/15/2021, 0 07/15/2021 HIB VACCINE Aged Out No longer eligi ble based on patient's age to complete this topic ROTOVIRUS VACCINE Aged Out No longer eligible based on patient's age to complete this topic Medical Devices Implanted Type Area Clerk Cashier Device Identifier Shelf Expiration Date Model / Serial / Lot Resolute Stent Implanted:Qty: 1 on 08/04/2016 by Jose Ramon Rivera MD at [facility] [id number] / [id number] / Resolute Stent 2.75x 18mm Implanted:Qty: 1 on 08/04/2016 by Jose Ramon Rivera MD at [facility] [id number] / / [id number] Resolute Stent Implanted:Qty: 1 on 08/04/2016 by Jose Ramon Rivera MD at [facility] [id number] / / [id number] Procedures Procedure Name Priority Date/Time Associated Diagnosis Comments TSH, HIGH SENSITIVITY Routine 08/06/2024 4:31 PM EDT Post-surgical hypothyroidism LIPID PANEL Routine 08/06/2024 4:31 PM EDT Mixed hyperlipidemia HEMOGLOBIN A1C Routine 08/06/2024 4:31 PM EDT Type 1 diabetes mellitus with diabetic polyneuropathy (HCC) MICROALBUMIN,RANDOM URINE (INCLUDES CREATININE W/RATIO) Routine 08/06/2024 4:17 PM EDT Type 1 diabetes mellitus with diabetic polyneuropathy (HCC) CT LUMBAR SPINE WO CONTRAST STAT 07/15/2024 10:[address] HEAD WO CONTRAST STAT 07/15/2024 1 0:07 AM EDT SARS-COV-2, QL, PCR (RAPID) STAT 07/15/2024 9:21 AM EDT XR PORTABLE CHEST STAT 07/15/2024 9:0 9 AM EDT XR PELVIS AP ONLY STAT 07/15/2024 9:0 9 AM EDT RT BLOOD GASES STAT 07/15/2024 9:01 AM EDT TROPONIN I, HS, BASELINE STAT 07/15/2024 8:54 AM EDT COMPREHENSIVE METABOLIC PANEL STAT 07/15/2024 8:54 AM EDT CBC W/DIFFERENTIAL STAT 07/15/2024 8: 54 AM EDT EKG 12-LEAD (ED) STAT 07/15/2024 8:29 AM EDT Multifocal pneumonia OCCULT BLOOD (FIT), STOOL Today 03/24/2017 1:35 PM EST from Last 3 Months or Most Recently Relevant to Health Maintenance Results * TSH, High Sensitivity (08/06/2024 4:31 PM EDT) TSH 3.44 0.30 - 5.60 u[iU]/mL 08/06/2024 5:08 PM EDT [facility] 08/06/2024 4:31 PM EDT 08/06/2024 4:31 PM EDT us Micha Washington MD CHEMISTRY ORDERABLES Final Resul t [facility] [address] [place] [address] [facility] [address] [place] [address] * (ABNORMAL) Hemoglobin A1C (08/06/2024 4:31 PM EDT) Pathologist [facility] HEMOGLOBIN A1C 7.6(H) 3.0 - 6.0 % 08/06/2024 4:43 PM EDT [facility] 08/06/2024 4:31 PM EDT 08/06/2024 4:31 PM EDT us Micha Washington MD CHEMISTRY ORDERABLES Final Resul t [facility] [address] [place], [place] [id number] [place] [address] LAB [address] [place] [address] * Lipid Panel (08/06/2024 4:31 PM EDT) [facility] CHOLESTEROL 124 10 - 200 mg/dL 08/06/2024 5:00 PM EDT [facility] TRIGLYCERIDE 112 46 - 236 mg/dL 08/06/2024 5:00 PM EDT [facility] HDL 51.0 27.0 - 67.0 mg/dL 08/06/2024 5:00 PM EDT [facility] VLDL 22.4 mg/dL 08/06/2024 5:00 PM EDT [facility] LDL 50.6 mg/dL 08/06/2024 5:00 PM EDT [facility] Comment: CAP STANDARDIZED LDL-CHOLESTEROL VALUES <130-DESIRABLE 130-159 BORDERLINE/HIGH RISK >160-HIGH RISK Friedewald equation was used for calculating LDL = Tot. Cholesterol - HDL - (TG/5). RISK 1, MALE 2.43 08/06/2024 5:00 PM EDT [facility] Comment: TOTAL CHOL/HDL 1/2 AVERAGE 3.43 AVERAGE 4.97 2 X AVERAGE 9.55 3 X AVERAGE 23.39 RISK 2, MALE 0.99 08/06/2024 5:00 PM EDT [facility] Comment: LDL/HDL 1/2 AVERAGE 1.00 AVERAGE 3.55 2 X AVERAGE 6.25 3 X AVERAGE 7.99 RISK 1, FEMALE 2.43 08/06/2024 5:00 PM EDT [facility] Comment: TOTAL CHOL/HDL 1/2 AVERAGE 3.27 AVERAGE 4.44 2 X AVERAGE 7.05 3 X AVERAGE 11.04 RISK 2, FEMALE 0.99 08/06/2024 5:00 PM EDT [facility] Comment: LDL/HDL 1/2 AVERAGE 1.47 AVERAGE 3.22 2 X AVERAGE 5.03 3 X AVERAGE 6.14 08/06/2024 4:31 PM EDT 08/06/2024 4:31 PM EDT Micha Washington MD CHEMISTRY ORDERABLES Final Resul t Performing Organization Address [facility] Co de Phone Number [facility] [address] [place], [place] [id number] [place] [address] LAB [address] [place] [address] * Microalbumin, Random Urine (Includes creatinine w/ratio) (08/06/2024 4:17 PM EDT) CREATININE URINE 51.6 mg/dL 08/07/19 4:46 PM EDT [facility] MICROALBUMIN,U,RANDO M 0.90 0.00 - 1.80 mg/dL 08/06/2024 4:46 PM EDT [facility] MICROALB CREAT RATIO 17.4 ug/mg 07/10 4:46 PM EDT [facility] Comment: CATEGORY SPOT COLLECTION Normal <30 ug/mg creatinine Microalbuminuria 30-300 ug/mg creatinine Clinical albuminuria >300 ug/mg creatinine 08/06/2024 4:17 PM EDT 08/06/2024 4:17 PM EDT Micha Washington MD CHEMISTRY ORDERABLES Final Resul t Performing Organization Address [facility] de Phone Number [facility] [address] [place] [address] [facility] [address] [place] [address] * CT Lumbar Spine WO Contrast (07/15/2024 10:07 AM EDT) Anatomical Region Laterality Modality T-spine, L-spine, Pelvis Compute d Tomography 07/15/2024 Narrative 07/15/2024 10:13 AM EDT Psychiatric [address] [place] [address] Radiology PATIENT NAME: Obdulio Gold MR#: [id number] PROCEDURE DATE: 07/15/2024 ROOM#: 05 ORDERING PHYS: [...] Hook MD reena TD: 07/15/2024 JOB #: [id number] Radiology Page 1 of 1 COPY Procedure Note Elijah Clifton MD - 07/15/2024 [place] [address] Radiology PATIENT NAME: Obdulio Gold MR#: [id number] PROCEDURE DATE: 07/15/2024 ROOM#: 05 ORDERING PHYS: [...] Hook MD reena TD: 07/15/2024 JOB #: [id number] Radiology Page 1 of 1COPY Carlota Huynh MD IM CT ORDERABLES Final Result * CT Head WO Contrast (07/15/2024 10:07 AM EDT) Anatomical Region Laterality Modality Head Computed Tomogra phy 07/15/2024 Narrative 07/15/2024 10:[place] [address] Radiology PATIENT NAME: Obdulio Gold MR#: [id number] PROCEDURE DATE: 07/15/2024 ROOM#: 05 ORDERING PHYS: [...] Hook MD reena TD: 07/15/2024 JOB #: [id number] Radiology Page 1 of 1 COPY Procedure Note Elijah Clifton MD - 07/15/2024 [place] [address] Radiology PATIENT NAME: Obdulio Gold MR#: [id number] PROCEDURE DATE: 07/15/2024 ROOM#: 05 ORDERING PHYS: [...] Hook MD reena TD: 07/15/2024 JOB #: [id number] Radiology Page 1 of 1COPY us Carlota Huynh MD IMG CT ORDERABLES Final Result * SARS-CoV-2, QL, PCR (Rapid) (07/15/2024 9:21 AM EDT) SARS-CoV-2 RNA Undetected 07/15/2024 10:08 AM EDT [facility] Comment: Reference value: Undetected Testing was performed using the [employer] Dx System. Fact sheets for this Emergency Use Authorization (EUA) assay can be found at the following links: For Healthcare Providers: https://www.fda.gov/media/491781/download For Patients: https://www.fda.gov/media/364553/download Test Performed by: [facility],[address] [place] [address], Loft Worker: Genaro Calvert D.O. CLIA: [id number] 07/15/2024 9:21 AM EDT 07/15/2024 9:25 AM EDT us Carlota Huynh MD MICROBIOLOGY - GENERAL ORDERABL ES Final Result [facility] [address] [place] [address] [place] [address] * XR Pelvis AP Only (07/15/2024 9:09 AM EDT) Anatomical Region Laterality Modality Abdomen, Pelvis, hip Computed Ra diography 07/15/2024 Narrative 07/15/2024 9:[place] [address] Radiology PATIENT NAME: Obdulio Gold MR#: [id number] PROCEDURE DATE: 07/15/2024 ROOM#: 05 ORDERING PHYS: [...] Hook MD jp TD: 07/15/2024 JOB #: [id number] Radiology Page 1 of 1 COPY Procedure Note Elijah Clifton MD - 07/15/2024 [place] [address] Radiology PATIENT NAME: Obdulio Gold MR#: [id number] PROCEDURE DATE: 07/15/2024 ROOM#: 05 ORDERING PHYS: [...] Hook MD jp TD: 07/15/2024 JOB #: [id number] Radiology Page 1 of 1COPY us Carlota Huynh MD IMG DIAGNOSTIC IMAGING ORDERABL ES Final Result * XR Portable Chest (07/15/2024 9:09 AM EDT) Anatomical Region Laterality Modality Chest Computed Radiogr aphy 07/15/2024 Narrative 07/15/2024 9:[place] [address] Radiology PATIENT NAME: Obdulio Gold MR#: [id number] PROCEDURE DATE: 07/15/2024 ROOM#: 05 ORDERING PHYS: [...] Hook MD reena TD: 07/15/2024 JOB #: [id number] Radiology Page 1 of 1 COPY Procedure Note Elijah Clifton MD - 07/15/2024 [place] [address] Radiology PATIENT NAME: Obdulio Gold MR#: [id number] PROCEDURE DATE: 07/15/2024 ROOM#: 05 ORDERING PHYS: [...] Hook MD reena TD: 07/15/2024 JOB #: [id number] Radiology Page 1 of 1COPY us Carlota Huynh MD IMG DIAGNOSTIC IMAGING ORDERABL [...] AM EDT 07/15/2024 9:01 AM EDT Narrative [facility] - 07/15/2024 9:01 AM EDT Called to and read back by Dr. Carlota Huynh, at 09:01 on 07/15/2024, LBB us Carlota Huynh MD RESP CARE LABS Final Result [facility] [address] [place] [id number] [facility] [place] [place] [address] [place] [address] * (ABNORMAL) Comprehensive Metabolic Panel (07/15/2024 8:54 AM EDT) [facility] SODIUM 137 135 - 145 mmol/L 07/15/2024 9:23 AM EDT [facility] POTASSIUM 3.3(L) 3.6 - 5.0 mmol/L 07/15/2024 9:23 AM EDT [facility] CHLORIDE 101 101 - 111 mmol/L 07/15/2024 9:23 AM EDT [facility] CO2 26 21 - 31 mmol/L 07/15/2024 9:23 AM EDT [facility] ANION GAP 10 07/15/2024 9:23 AM EDT [facility] GLUCOSE 312(H) 70 - 110 mg/dL 07/15/2024 9:23 AM EDT [facility] CREATININE 1.1 0.6 - 1.2 mg/dL 07/15/2024 9:23 AM EDT [facility] BUN 16 2 - 32 mg/dL 07/15/2024 9:23 AM EDT [facility] CALCIUM 8.4(L) 8.5 - 10.5 mg/dL 07/15/2024 9:23 AM EDT [facility] PROTEIN TOTAL 6.1 6.1 - 7.8 g/dL 07/15/2024 9:23 AM EDT [facility] Albumin 3.2 3.2 - 5.0 g/dL 07/15/2024 9:23 AM EDT [facility] T BILIRUBIN 0.8 0.2 - 1.0 mg/dL 07/15/2024 9:23 AM EDT [facility] ALP 91 42 - 121 [iU]/L 07/15/2024 9:23 AM EDT [facility] AST 31 10 - 42 [iU]/L 07/15/2024 9:23 AM EDT [facility] ALT (SGPT) 33 10 - 60 [iU]/L 07/15/2024 9:23 AM EDT [facility] OSMOLALITY 287 266 - 309 07/15/2024 9:23 AM EDT [facility] A/G Ratio 1.1 07/15/2024 9:23 AM EDT [facility] B/C 15 10 - 20 07/15/2024 9:23 AM EDT [facility] ESTIMATED GFR 66 mL/min 07/15/2024 9:23 AM EDT [facility] Comment: *The estimated Glomerular Filtration Rate(EGFR) [...] Huynh MD CHEMISTRY ORDERABLES Final Resu lt Performing Organization Address City/[facility] Co de Phone Number [facility] [address] [place] [address] [facility] [address] [place] [address] * Troponin I, HS, baseline (07/15/2024 8:54 AM EDT) Pathologist [facility] TROPONIN I, HS, BASELINE 17 0 - 20 07/15/2024 9:23 AM EDT [facility] Comment: For Males 20 ng/L is the AMI cutoff for males. For Females 15 ng/L is the AMI cutoff for females. 07/15/2024 8:54 AM EDT 07/15/2024 8:56 AM EDT Calrota Huynh MD CHEMISTRY ORDERABLES Final Resu lt [facility] [address] [place] [address] [facility] [address] [place] [address] * (ABNORMAL) CBC w/Differential (07/15/2024 8:54 AM EDT) Pathologist [facility] WBC 5.8 4.5 - 11.0 10*3/uL 07/15/2024 9:51 AM EDT [facility] RBC 4.02(L) 4.50 - 5.90 10*6/uL 07/15/2024 9:51 AM EDT [facility] HGB 11.6(L) 13.5 - 17.5 g/dL 07/15/2024 9:51 AM EDT [facility] HCT 34.0(L) 37.0 - 53.0 % 07/15/2024 9:51 AM EDT [facility] MCV 84.8 80.0 - 100.0 fL 07/15/2024 9:51 AM EDT [facility] MCHC 34.0 32.0 - 36.0 g/dL 07/15/2024 9:51 AM EDT [facility] MCH 28.8 26.0 - 34.0 pg 07/15/2024 9:51 AM EDT [facility] RDW 17.2 10.7 - 18.7 % 07/15/2024 9:51 AM EDT [facility] MPV 7.1 6.5 - 10.0 fL 07/15/2024 9:51 AM EDT [facility] Platelet Cnt 128(L) 150 - 450 10*3/uL 07/15/2024 9:51 AM EDT [facility] Differential Type Auto 025 9:51 AM EDT [facility] Neutrophils 84.1(H) 35.0 - 66.0 % 07/15/2024 9:51 AM EDT [facility] Lymphocytes 4.9(L) 24.0 - 44.0 % 07/15/2024 9:51 AM EDT [facility] Monocytes 7.2 2.1 - 13.3 % 07/15/2024 9:51 AM EDT [facility] Eosinophils 3.6 0.3 - 5.0 % 07/15/2024 9:51 AM EDT [facility] Basophils 0.2 0.0 - 1.0 % 07/15/2024 9:51 AM EDT [facility] Neutrophils Abs 4.9 1.5 - 8.5 10*3/uL 07/15/2024 9:51 AM EDT [facility] Lymphocytes Abs 0.3(L) 1.1 - 5.0 10*3/uL 07/15/2024 9:51 AM EDT [facility] Monocytes Abs 0.4 0.0 - 1.4 10*3/uL 07/15/2024 9:51 AM EDT [facility] Eosinophils Abs 0.2 0.0 - 0.5 10*3/uL 07/15/2024 9:51 AM EDT [facility] Basophils Abs 0.0 0.0 - 0.1 10*3/uL 07/15/2024 9:51 AM EDT [facility] MDW 20.8(H) 0.0 - 20.0 07/15/2024 9:51 AM EDT [facility] 07/15/2024 8:54 AM EDT 07/15/2024 9:05 AM EDT us Carlota Huynh MD HEMATOLOGY ORDERABLES Final Res ult Performing Organization Address City/State/[facility] Co de Phone Number [facility] [address] [place] [address] [facility] [address] [place] [address] * 12 Lead EKG - Emergency Department (07/15/2024 8:29 AM EDT) 07/15/2024 8:29 AM EDT Narrative [facility] - 07/16/2024 1:31 AM EDT Psychiatric ED Test Date: 2024-07-15 Pat Name: OBDULIO GOLD Department: EMERGENCY DEPARTMENT Room: 05 Gender: Male Manager Chemistry: : 1955 Requested By: CARLOTA HUYNH Order Number: [id number] Reading MD: David Fritz MD Measurements Intervals [place] Rate: 98 P: 27 MT: 150 QRS: -52 QRSD: 110 T: 82 QT: 354 QTc: 452 Interpretive Statements: Normal sinus rhythm Poor R wave progression Possible old septal AL LVH Nonspecific ST-T wave changes Non specific interventricular conduction delay Electronically Signed On 07-16-2024 01:31:24 EDT by David Fritz MD Procedure Note David Fritz MD - 07/16/2024 Psychiatric ED Test Date: 2024-07-15 Pat Name: OBDULIO GOLD Department: EMERGENCYDEPARTMENT Room: 05 Gender: Male Manager Chemistry: : 1955 Requested By: CARLOTA HUYNH Order Number: [id number] Reading MD: David Fritz MD Measurements Intervals [place] Rate: 98 P: 27 MT: 150 QRS: -52 QRSD: 110 T: 82 QT: 354 QTc: 452 Interpretive Statements: Normal sinus rhythm Poor R wave progression Possible old septal AL LVH Nonspecific ST-T wave changes Non specific interventricular conduction delay Electronically Signed On 07-16-2024 01:31:24 EDT by David Fritz MD us Carlota Huynh MD EKG ORDERABLES Final Result Performing Organization Address City/[facility] Co de Phone Number [facility] * Occult Blood, Stool (03/24/2017 1:35 PM EST) OCCULT BLOOD NEGATIVE NEGATIVE 03/24/2017 3:32 PM EST [facility] Comment:Methology: FIT, Feca l Immunochemical Test. Stool (Stool) 03/24/2017 1:3 5 PM EST 03/24/2017 2:01 PM EST us Fredrick Mauro MD URINE ORDERABLES Final Result Performing Organization Address City/[facility] Co de Phone Number [facility] [address] [place] [id number] from Last 3 Months or Most Recently Relevant to Health Maintenance Insurance [employer] MEDICARE [phone] (Home) [address] [place] [phone] Advance Directives * DNR (Latest Code Status on File) Date Activated Date Inactivated Comments 04/02/2024 4:27 AM 04/04/2024 8:36 PM * Full Code Date Activated Date Inactivated Comments 04/01/2024 10:36 PM 04/02/2024 4:27 AM * Full Code Date Activated Date Inactivated Comments 05/28/2023 9:58 PM 06/01/2023 7:46 PM * Full Code Date Activated Date Inactivated Comments 04/28/2023 10:08 AM 05/28/2023 4:45 PM * Full Code Date Activated Date Inactivated Comments 03/25/2017 5:59 AM 03/26/2017 5:59 AM Care Teams Service Counselor Relationship Specialty Start Date End Date Elijah Serra DO [address] [place] [address] PCP - General Family Medicine 07/21/23 Willi Templeton MD [address] [place] [address] Gastroenterology 02/25/16 María Andre MD [address] [place] [address] [address] [place] [address] Gastroenterology 03/08/16 Selene Rodriguez APRN [address] [place] [address] Gastroenterology 08/23/16 Mariah Flowers APRN [address] [place] [address] Nurse Practitioner 08/26/16 Neyda Beltran MD [address] [place] [address] Nephrology 03/17/17 Ryanne Roblero MD [address] [address] [facility] [place] [address] Rheumatology 03/01/18 Mi Martin APRN [address] [place] [address] Nurse Practitioner Nurse Practitioner 04/16/19
--- OUTSIDE RECORDS SUMMARY | 2024-08-13 12:45 | XMS_ITS | Encounter Summary ---
Author Organization [employer] ([place], [place], [place], [place]) Address [address] [place] [address] Care Team Providers Care Cogeneration Operator Name Role Phone Elijah Serra DO Primary Care Provider [phone] Encounter Details Date Type Department Care Team (Late st Contact Info) Description 07/18/2021 Transcribed Document [facility] Family Medicine [address] [place] [address] ProviderMichael MD [address] [place] [address] Social History Tobacco Use Types [...] Do you speak a language other than [place]ian at [facility]? No 09/05/2023 Do you [...] Conversion Note - Historical Provider, - 07/18/2021 1:47 PM CDT Consult Phone Call Documentation Entered On: 07/18/2021 13:48 EDT Performed On: 07/18/2021 13:47 EDT by Dara Celis Emergency Room Nail Galvanizer Phone Call for Consults Provider Service Notified Name : Nephrology Consult, Additional Information : Consult for in am Dara Celis [facility] Nail Galvanizer - 07/18/2021 13:47 EDT Electronically signed by Florencia [id number] Conversion Pile Driving Setter Cerner at 05/25/2022 6:24 PM CDT documented in this encounter Plan of Treatment Not on file documented as of this encounter Visit Diagnoses Not on filedocumented in this encounter Care Teams Cogeneration Operator Relationship Specialty Start Date End Date Elijah Serra, DO [address] [facility] [address] [place] [phone] PCP - General Family Medicine 03/11/23 documented as of this encounter
--- OUTSIDE RECORDS SUMMARY | 2024-08-13 12:45 | XMS_ITS | Encounter Summary ---
Author Organization [facility] Address [address] [place] [address] Support Name Relationship Address Phone Stepan Gold Personal Relationship [address] [facility] [place] [address] Mi Gold Personal Relationship Unknown Rosalind Mai Personal Relationship Unknown [phone] Vivi Ward Personal Relationship Unknown [phone] Care Team Providers Care Evp Operations Name Role Phone Lesley Grace MD Primary Care Provider [phone] Provider, Historical Unavailable Unavailable Willi Templeton MD Unavailable María Andre MD Unavailable Selene Rodriguez LOTTERIES AGENT Unavailable Mariah Flowers LOTTERIES AGENT Unavailable Neyda Beltran MD Unavailable Ryanne Roblero MD Unavailable Unavailable Mi Martin LOTTERIES AGENT Unavailable [phone] Elijah Serra DO Primary Care Provider [phone] Micha Washington MD Unavailable Reason for Visit * Reason Onset Date Comments Phone Advice For Symptoms 08/24/2013 Encounter Details Date Type Department Care Team (Late st Contact Info) Description 08/24/[address] LESLEY GRACE MD, [address] [place] [address] Lesley Grace MD [address] [place] [address] [address] [place] [address] Phone Advice For Symptoms Social History Tobacco [...] encounter Miscellaneous Notes * Telephone Encounter - Lesley Grace MD - 08/24/2013 12:54 PM EDT 3-5 days before surgery should be okay * Telephone Encounter - Sapphire Mary - 08/24/2013 8:50 AM EDT Pt is scheduled for hip replacement surgery on 09-05-13. When should he stop taking his aspirin, plavix and daypro? documented in this encounter Plan of Treatment Upcoming Encounters Date Type Department Care Team (Late st Contact Info) Description 11/06/2024 11:00 AM EDT Office Visit [facility] [address] [place] [address], [address] [place] [phone] Micha Washington MD [address] [place] [address] Molly Figueroa PA-C [address] [place] [phone] documented as of this encounter Visit Diagnoses Not on filedocumented in this encounter Additional Health Concerns Infection Onset Date Last Indicated Resolved Time 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 02/24/2017 02/22/2017 02/22/201704/02/2024 9:[address] documented as of this encounter Care Teams Evp Operations Relationship Specialty Start Date End Date Lesley Grace MD [address] [place] [address] [address] [place] [address] PCP - General 02/16/09 04/13/23 Elijah Serra DO [address] [place] [address] PCP - General Family Medicine 07/21/23 Provider, Historical 02/16/16 08/25/16 Willi Templeton MD [address] [address] [place] [address] Gastroenterology 02/25/16 María Andre MD [address] [address] [place] [address] Gastroenterology 03/08/16 Selene Rodriguez APRN [address] [place] [address] Gastroenterology 08/23/16 Mariah Flowers APRN [address] [address] [place] [address] Nurse Practitioner 08/26/16 Neyda Beltran MD [address] [address] [place] [address] Nephrology 03/17/17 Ryanne Roblero MD [address] [address] [place] [address] Rheumatology 03/01/18 Mi Martin APRN [address] [place] [address] Nurse Practitioner Nurse Practitioner 04/16/19 Micha Washington MD [address] [place] [id number] Endocrinology 08/06/24 08/06/24 documented as of this encounter
--- OUTSIDE RECORDS SUMMARY | 2024-08-13 12:45 | XMS_ITS | Encounter Summary ---
Author Organization [employer] ([place], [place], [place], [place]) Address [address] [place] [address] Care Team Providers Care Early Childhood Coordinator Name Role Phone Elijah Serra DO Primary Care Provider [phone] Encounter Details Date Type Department Care Team (Late st Contact Info) Description 07/18/2021 Transcribed Document [facility] Radiology [address] [place] [address] Marcos Alvarez MD [address] [place] [address] [address] [place] [address] Social History Tobacco Use Types Packs/Day Years [...] your living situation today? I have a [facility] place to live 09/05/2023 Think about the [...] speak a language other than Belarusian at [facility]? No 09/05/2023 Do you want [...] Miscellaneous Notes * Cerner Conversion Note - Marcos Alvarez MD - 07/18/2021 2:38 PM EDT Patient: SOLEDAD DOWD Age: 65 years Sex: Male : 1955 Associated Diagnoses: None Author: MARCOS ALVAREZ MD-INT Subjective Primary care provider Dr. Serra Date of admission 07/18/2021 Chief complaint fall shortness of air worsening edema History of present illness The patient presents with weakness and Patient is a very pleasant 65-year-old white male who presents with complaint of low blood pressure for the past 2 weeks, dizziness for the past 3 days and shortness of breath that has gotten worse over the past month. He also reports peripheral edema for the past month that had been resolved prior with medication. He reports he had a fall today due to generalized weakness and skinned his left elbow but denies any other injuries. He has been ambulatory since the event. No headache. No loss of consciousness. No back or neck pain. Patient reports blood pressures as low as 91/40. He saw Rody Breen his cardiology PA and she halved his metoprolol about a week ago but patient continues to be symptomatic.. In the ED found to have markedly elevated blood sugar greater than 700. Noted to have abnormal kidney function and low sodium as well. Chest x-ray demonstrated what appears to be pneumonia like picture. Patient has insulin pump at baseline. Our service is asked to admit him. He is not a good historian. His is present at bedside and history was supplemented by talking to her. Patient denies any major productive cough although does report some dry cough. No report of chest pain. He reports worsening lower extremity edema. He is taking multiple medications. He tells me that he monitors blood sugar at home typically once a day. Review of Systems Constitutional: He reports weakness and dizziness and low blood pressures Eye: Negative. Ear/Nose/Mouth/Throat: Negative. Respiratory: Negative. Cardiovascular: Negative. Gastrointestinal: Nausea. Genitourinary: Negative. Endocrine: Negative. Musculoskeletal: Negative. Integumentary: Negative Neurologic: Negative. All other systems are negative Past medical history is significant for chronic kidney disease likely stage III, type 2 diabetes mellitus, hypothyroidism, prostate hyperplasia coronary artery disease with prior CABG as well as stent placement, history of right eye corneal tear, reported history of rheumatoid arthritis essential hypertension, hyperlipidemia, prior hip surgery, prior knee surgeries, and prior cholecystectomy Social history no alcohol tobacco or drug abuse Family history strongly positive for diabetes Home medications reviewed will be reconciled once available in the system Health Status Allergies: Allergic Reactions (Selected) Severity Not Documented Contrast Dye- No reactions were documented. Iodine topical- Unknown. Tape- No reactions were documented., Allergies (3) Active Reaction Contrast Dye None Documented iodine topical Unknown Tape None Documented Current medications: (Selected) Inpatient Medications Ordered Bumex: 1 mg, IV Push, 1-Time Colace: 100 mg, Oral, BID, PRN: Constipation Dextrose 50% injection: 12.5 Gram, IV Push, Q15Min, PRN: Other (See Comment) Dextrose 50% injection: 25 Gram, IV Push, Q15Min, PRN: Other (See Comment) Dextrose 50% injection: 25 Gram, IV Push, Q15Min, PRN: Other (See Comment) Dextrose 50% injection: 25 Gram, IV Push, Q15Min, PRN: Other (See Comment) DuoNeb 0.5 mg-2.5 mg/3 mL inhalation solution: 3 mL, Nebulized Inhalation, Q6H, PRN: Shortness of Breath Florastor: 250 mg, Oral, BID MiraLax: 17 Gram, Oral, Daily, PRN: Constipation Rocephin: 1 Gram, 100 mL/Hr, IV Piggyback, 1-Time Rocephin: 2 Gram, 50 mL, 100 mL/Hr, IV Piggyback, Daily Roxicodone: 5 mg, Oral, Q4H, PRN: Pain (Moderate 4-6) Tylenol: 650 mg, Oral, Q4H, PRN: Pain (Mild 1-3) Zofran: 4 mg, IV Push, Q4H, PRN: Nausea doxycycline + Sodium Chloride 0.9% intravenous solution 100 mL: 100 mg, 50 mL/Hr, IV Piggyback, 1-Time doxycycline: 100 mg, Oral, BID glucagon: 1 mg, IntraMuscular, Q15Min, PRN: Other (See Comment) glucose 4 g oral tablet, chewable: 16 Gram, 4 Tab, Chew, Q15Min, PRN: Other (See Comment) glucose 40% oral gel: 15 Gram, 37.5 mL, Oral, Q15Min, PRN: Other (See Comment) heparin: 5,000 Units, SubCutaneous, [id number] hydrALAZINE: 5 mg, IV Push, Q4H, PRN: Hypertension insulin glargine: 22 Units, SubCutaneous, 1-Time insulin lispro sliding scale: Scale B:, SubCutaneous, AC and at Bedtime insulin lispro: 10 Units, SubCutaneous, TID With Meals insulin regular 76 kg - 100 k Units, IV Push, 1-Time Documented Medications Documented EPINEPHrine 0.3 mg injectable kit: 0 Refill(s) Metoprolol Succinate ER 50 mg oral tablet, extended release: 0 Refill(s) Oxervate 0.002 % eye drops: 0 Refill(s) Potassium Chloride (Fxo-Rzio-How M10) 10 mEq oral tablet, extended release: 0 Refill(s) Zirgan 0.15% ophthalmic gel: 0 Refill(s) acetaminophen-HYDROcodone 325 mg-5 mg oral tablet: TAKE 1 TABLET BY MOUTH EVERY 8 HOURS allopurinol 100 mg oral tablet: 0 Refill(s) baclofen 10 mg oral tablet: 0 Refill(s) clopidogrel 75 mg oral tablet: 0 Refill(s) doxycycline monohydrate 100 mg oral capsule: TAKE 1 CAPSULE BY MOUTH TWICE DAILY FOR 14 DAYS erythromycin 0.5% ophthalmic ointment: APPLY SMALL AMOUNT IN RIGHT EYE THREE TIMES DAILY fluticasone 50 mcg/inh nasal spray: 0 Refill(s) furosemide 40 mg oral tablet: 0 Refill(s) gabapentin 600 mg oral tablet: 0 Refill(s) hydroxychloroquine 200 mg oral tablet: 0 Refill(s) levothyroxine 125 mcg (0.125 mg) oral tablet: 1 Tab, Oral, Daily, 60 Tab, 0 Refill(s) lisinopril 2.5 mg oral tablet: 1 Tab, Oral, Daily, 30 Tab, 0 Refill(s) moxifloxacin 0.5% ophthalmic solution: INSTILL 1 DROP IN RIGHT EYE FOUR TIMES DAILY prednisoLONE acetate 1% ophthalmic suspension: 0 Refill(s) rosuvastatin 20 mg oral tablet: 0 Refill(s) sucralfate 1 g oral tablet: 0 Refill(s) tamsulosin 0.4 mg oral capsule: 0 Refill(s) traZODone 150 mg oral tablet: 0 Refill(s), Home Medications (23) Active acetaminophen-HYDROcodone 325 mg-5 mg oral tablet allopurinol 100 mg oral tablet baclofen 10 mg oral tablet clopidogrel 75 mg oral tablet doxycycline monohydrate 100 mg oral capsule EPINEPHrine 0.3 mg injectable kit erythromycin 0.5% ophthalmic ointment fluticasone 50 mcg/inh nasal spray furosemide 40 mg oral tablet gabapentin 600 mg oral tablet hydroxychloroquine 200 mg oral tablet levothyroxine 125 mcg (0.125 mg) oral tablet 125 mcg = 1 Tab, Oral, Daily lisinopril 2.5 mg oral tablet 2.5 mg = 1 Tab, Oral, Daily Metoprolol Succinate ER 50 mg oral tablet, extended release moxifloxacin 0.5% ophthalmic solution Oxervate 0.002 % eye drops Potassium Chloride (Ddr-Irvz-Rgh M10) 10 mEq oral tablet, extended release prednisoLONE acetate 1% ophthalmic suspension rosuvastatin 20 mg oral tablet sucralfate 1 g oral tablet tamsulosin 0.4 mg oral capsule traZODone 150 mg oral tablet Zirgan 0.15% ophthalmic gel , Medications (25) Active Scheduled: (11) bumetanide 1 mg/4 mL inj 1 mg 4 mL, IV Push, 1-Time cefTRIAXone 1 Gram, IV Piggyback, 1-Time cefTRIAXone/NaCl 0.9% *UBC* 2 Gram 50 mL, IV Piggyback, Daily doxycycline hyclate + NaCl 0.9% 100 mL 100 mg, IV Piggyback, 1-Time doxycycline hyclate 100 mg cap 100 mg 1 Cap, Oral, BID heparin 5,000 units/1 mL inj 5,000 Units 1 mL, SubCutaneous, [id number] insulin glargine 1 unit/0.01 mL inj 22 Units 0.22 mL, SubCutaneous, 1-Time insulin lispro 1 unit/0.01 mL inj Scale B:, SubCutaneous, AC and at Bedtime insulin lispro 1 unit/0.01 mL inj 10 Units 0.1 mL, SubCutaneous, TID With Meals insulin regular 1 unit/0.01 mL inj 3mL 10 Units 0.1 mL, IV Push, 1-Time saccharomyces boulardii 250 mg cap 250 mg 1 Cap, Oral, BID Continuous: (0) PRN: (14) acetaminophen 325 mg tab 650 mg 2 Tab, Oral, Q4H albuterol-ipratropium inh 3 mL 3 mL, Nebulized Inhalation, Q6H dextrose 50% 25 g/50 mL inj syr 25 Gram 50 mL, IV Push, Q15Min dextrose 50% 25 g/50 mL inj syr 25 Gram 50 mL, IV Push, Q15Min dextrose 50% 25 g/50 mL inj syr 25 Gram 50 mL, IV Push, Q15Min dextrose 50% 25 g/50 mL inj syr 12.5 Gram 25 mL, IV Push, Q15Min docusate sodium 100 mg cap 100 mg 1 Cap, Oral, BID glucagon 1 mg/1 mL inj 1 mg 1 mL, IntraMuscular, Q15Min glucose 4 g tab 16 Gram 4 Tab, Chew, Q15Min glucose 40% gel 15 g 15 Gram 37.5 mL, Oral, Q15Min hydrALAZINE 20 mg/1 mL inj 5 mg 0.25 mL, IV Push, Q4H ondansetron 4 mg/2 mL inj 4 mg 2 mL, IV Push, Q4H oxyCODONE 5 mg tab 5 mg 1 Tab, Oral, Q4H polyethylene glycol 3350 pwd 17 g pkt 17 Gram 1 Packet, Oral, Daily Problem list: Medical At risk for sleep apnea / IMO [id number] / Confirmed Calcium pyrophosphate deposition disease / SNOMED CT 701092116 / Confirmed Chronic kidney disease stage 3 / SNOMED CT 8645282995 / Confirmed Coronary arteriosclerosis / SNOMED CT 31454909 / Confirmed Dyspnea on exertion / SNOMED CT 516517891 / Confirmed Erosive osteoarthrosis / SNOMED CT 198527732 / Confirmed History of coronary artery bypass grafting / SNOMED CT 8827669362 / Confirmed Hyperparathyroidism due to renal insufficiency / SNOMED CT 56895447 / Confirmed Hypothyroidism / SNOMED CT 58377752 / Confirmed Secondary gout / SNOMED CT 408850063 / Confirmed Type 1 diabetes mellitus / SNOMED CT 960043985 / Confirmed, Active Problems (13) At risk for sleep apnea Calcium pyrophosphate deposition disease Chronic kidney disease stage 3 Coronary arteriosclerosis Dyspnea on exertion Erosive osteoarthrosis History of coronary artery bypass grafting Hyperlipidemia Hyperparathyroidism due to renal insufficiency Hypertension Hypothyroidism Secondary gout Type 1 diabetes mellitus Objective VS/Measurements Vitals Signs (last 24 hrs) Last Charted Minimum Maximum Temp 98.0 (JUL 11 10:41) 98.0 (JUL 11 10:41) 98.0 (JUL 18 10:41) Mon HR 60 (JUL 18 12:30) 52 (JUL 18 11:30) 62 (JUL 18 11:00) Periph HR 60 (JUL 18 10:41) 60 (JUL 18 10:41) 60 (JUL 18 10:41) Resp Rate 16 (JUL 18 10:41) 16 (JUL 18 10:41) 16 (JUL 18 10:41) SBP 105 (JUL 18 12:30) 105 (JUL 18 12:30) 122 (JUL 18 10:41) DBP 71 (JUL 18 12:30) L 58 (JUL 18 10:41) 71 (JUL 18 12:30) MAP 84 (JUL 18 12:30) 82 (JUL 18 11:00) 86 (JUL 18 11:30) SpO2 98 (JUL 18 12:30) 96 (JUL 18 11:30) 98 (JUL 18 12:00) General: No acute distress. Eye: Normal conjunctiva. Neck: No jugular venous distention. Respiratory: Lungs are clear to auscultation, Respirations are non-labored, Breath sounds are equal. Cardiovascular: Regular rhythm, No gallop, S1+ S2 No S3 or S4 [place].. Gastrointestinal: Soft, Non-tender, Non-distended, Normal bowel sounds. Musculoskeletal: Normal range of motion. Integumentary: Warm, No rash, Patient has lower extremity edema and left arm skin tear. Neurologic: Alert, Oriented, No focal deficits. Psychiatric: Cooperative, Appropriate mood & affect. Results Review JUL 18 11:49 L 128 L 98 H 40 / C 714 4.5 24 H 2.40 \ FRANCES 11 11:49 \ L 9.8 / 3.6 L 135 / L 30.7 \ Impression and Plan Diagnosis -Profound hypoglycemia in the setting of type [...] -History of essential hypertension and dyslipidemia Plan: Patient's presentation is quite complex he is quite sick at the moment and being admitted I will initiate insulin therapy and monitor fingerstick glucose I will consult nephrology as well as cardiology service I will obtain transthoracic echocardiogram as well as lower extremity venous duplex I will hold most of his antihypertensives in the setting of low blood pressures I will monitor electrolytes and address as needed I will investigate anemia, I will obtain kidney ultrasound as well as urinalysis I will cautiously initiate Bumex keeping close eye on kidney functions and electrolytes and also blood pressure Due to discovery of pneumonia I will add antibiotic therapy and submit cultures I will ask for physical and Occupational Therapy evaluation I have discussed plan of care with the patient as well as documented in this encounter Plan of Treatment Not on file documented as of this encounter Visit Diagnoses Not on filedocumented in this encounter Care Teams Early Childhood Coordinator Relationship Specialty Start Date End Date Elijah Serra, DO [address] [facility] [address] [place] [address] PCP - General Family Medicine 03/11/23 documented as of this encounter
--- OUTSIDE RECORDS SUMMARY | 2024-08-13 12:45 | XMS_ITS | Encounter Summary ---
Author Organization [employer] ([place], [place], [place], [place]) Address [address] [place] [address] Care Team Providers Care Nematology Teacher Name Role Phone Elijah Serra DO Primary Care Provider [phone] Encounter Details Date Type Department Care Team (Late st Contact Info) Description 07/20/2021 Transcribed Document [facility] Family Medicine [address] [place] [address] ProviderMichael MD [address] [place] [address] Social History Tobacco Use Types [...] a language other than Vietnamese at [facility]? No 09/05/2023 Do you want help [...] Conversion Note - Historical Provider, - 07/20/2021 10:10 AM CDT Patient: SOLEDAD DOWD Age: 65 [...] glargine 3 units. to bring in pump supplies. SUgar running high today but pump will be set up today I will consult nephrology as well as cardiology service I will obtain lower extremity venous duplex I will hold most of his antihypertensives in the setting of low blood pressures I will monitor electrolytes and address as needed Begin oral Iron. Outpatient GI follow up encouraged I will obtain kidney ultrasound as well as urinalysis Due to discovery of pneumonia I will add antibiotic therapy and submit cultures I will ask for physical and Occupational Therapy Dispo: Ambulate today, possible DC later today or tomorrow VTE Prophylaxis - Medical Clopidogrel 75 mg, Oral, Tab, Daily, Routine, Start 07/19/21 9:00:00 EDT, 07/18/21 16:13:00 EDT (SKIP ROBLES MD-INT) Heparin 5,000 Units, SubCutaneous, Inj, [id number], Routine, Start 07/18/21 15:00:00 EDT, 07/18/21 14:02:00 EDT (SKIP ROBLES MD-INT) Subjective Seen and exmained this AM. No events overnight Constitutional: [No fevers, chills, sweats] Eye: [No recent visual problems] ENMT: [No ear pain, nasal congestion, sore throat] Respiratory: [No shortness of breath, cough] Cardiovascular: [No Chest pain, palpitations, syncope] Gastrointestinal: [No nausea, vomiting, diarrhea] Genitourinary: [No hematuria] Vital Signs T: 36.3 ??C TMIN: 36.3 ??C TMAX: 37.1 ??C HR: 75(Monitored) RR: 16 BP: 133/82 SpO2: 97% Oxygen Settings (Last) Oxygen Therapy Mode: Room air (07/20/21 08:33:00) Intake & Output Totals Last 24 Hours (7a-7a) Input Total: 54 mL Output Total: 1050 mL Balance: -996 mL Physical Exam General: [alert , well [...] PRN heparin, 5000 Units= 1 mL, SubCutaneous, [id number] hydrALAZINE, 5 mg= 0.25 mL, IV Push, [...] Lab Results Test Name Test Result Date/Time Device Comment 1 Notified Nurse RBV 07/20/2021 05:58 EDT Device Comment 1 Notified Nurse RBV 07/19/2021 20:40 EDT Device Comment 1 Notified Nurse RBV 07/19/2021 16:59 EDT Device Comment 1 Notified Nurse RBV 07/19/2021 10:42 EDT Glucose POC2 342 mg/dL (High) 07/20/2021 05:58 EDT Glucose POC2 145 mg/dL (High) 07/19/2021 20:40 EDT Glucose POC2 72 mg/dL 07/19/2021 16:59 EDT Glucose POC2 338 mg/dL (High) 07/19/2021 10:42 EDT Electronically signed by [facility], [facility] Conversion Industrial Retrofit Designer Cerner at 05/25/2022 6:23 PM CDT documented in this encounter Plan of Treatment Not on file documented as of this encounter Visit Diagnoses Not on filedocumented in this encounter Care Teams Nematology Teacher Relationship Specialty Start Date End Date Elijah Serra, DO [address] [facility] [address] [place] [address] PCP - General Family Medicine 03/11/23 documented as of this encounter
--- OUTSIDE RECORDS SUMMARY | 2024-08-13 12:45 | XMS_ITS | Encounter Summary ---
Author Organization [email or web address] ([place], [place], [place], [place]) Address [address] [place] [address] Care Team Providers Care Electronics Inspector Name Role Phone Elijah Serra DO Primary Care Provider [phone] Encounter Details Date Type Department Care Team (Late st Contact Info) Description 07/19/2021 Transcribed Document [facility] Family Medicine [address] [place] [address] ProviderMichael MD [address] [place] [address] Social History Tobacco Use Types [...] Do you speak a language other than Ecuadorean at [facility]? No 09/05/2023 Do you want [...] Conversion Note - Historical Provider, MD - 07/19/2021 5:00 AM CDT Chart Check - Review Order Profile Entered On: 07/19/2021 6:04 EDT Performed On: 07/19/2021 5:00 EDT by Isaac Jensen Rn-Traveler Chart Check Powerplans Initiated/Discontinued as Appropriate : Yes All Active Orders Reviewed : Yes Isaac Jensen Rn-Traveler - 07/19/2021 6:04 EDT Electronically signed by [facility] Conversion Fast Food Sales Assistant Cerner at 05/25/2022 6:27 PM CDT documented in this encounter Plan of Treatment Not on file documented as of this encounter Visit Diagnoses Not on filedocumented in this encounter Care Teams Electronics Inspector Relationship Specialty Start Date End Date Elijah Serra, DO [address] [facility] [address] [place] [address] PCP - General Family Medicine 03/11/23 documented as of this encounter
--- OUTSIDE RECORDS SUMMARY | 2024-08-13 12:45 | XMS_ITS | Encounter Summary ---
Author Organization [facility] Address [address] [place] [address] Support Name Relationship Address Phone Stepan Gold Personal Relationship [address] [facility] [place] [address] Mi Asif Personal Relationship Unknown Rosalind Mai Personal Relationship Unknown [phone] Vivi Ward Personal Relationship Unknown [phone] Care Team Providers Care Asphalt Engineer Name Role Phone Lesley Grace MD Primary Care Provider [phone] Willi Templeton MD Unavailable María Andre MD Unavailable Selene Rodriguez CALENDER RUNNER Unavailable Mariah Flowers CALENDER RUNNER Unavailable Neyda Beltran MD Unavailable Ryanne Roblero MD Unavailable Unavailable Mi Martin CALENDER RUNNER Unavailable [phone] Elijah Serra DO Primary Care Provider Micha [place] MD Unavailable Reason for Visit * Reason Onset Date Comments Medications Refill 08/20/2019 Encounter Details Date Type Department Care Team (Late st Contact Info) Description 08/20/[address] LESLEY GRACE MD, [facility] [address] [facility] [address] [place] [id number] Lesley Grace MD [address] [place] [address] [facility] [place] [address] Erosive osteoarthritis of multiple sites Social History Tobacco Use Types Packs/Day Years [...] have Coronavirus / COVID-19? No / Unsure 08/01/2019 8:38 AM EDT documented as of this encounter Plan of Treatment Upcoming Encounters Date Type Department Care Team (Late st Contact Info) Description 11/06/2024 11:00 AM EDT Office Visit [facility] [address] [place] [address], [facility] [address] [place], [place] [address] Micha Washington MD [address] [place] [address] [place] [address] Molly Figueroa PA-C [address] [place] [address] documented as of this encounter Visit Diagnoses Diagnosis Erosive osteoarthritis of multiple sites documented in this encounter Additional Health Concerns Infection Onset Date Last Indicated Resolved Time 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 02/24/2017 02/22/2017 02/22/2017 04/02/2024 9:[address] documented as of this encounter Care Teams Asphalt Engineer Relationship Specialty Start Date End Date Lesley Grace MD [address] [place] [address] [place] [address] PCP - General 02/16/09 04/13/23 Elijah Serra DO [address] [place] [address] PCP - General Family Medicine 07/21/23 Willi Templeton MD [address] [place] [address] [address] [facility] [place] [address] Gastroenterology 02/25/16 María Andre MD [address] [place] [address] [address] [facility] [place] [address] Gastroenterology 03/08/16 Selene Rodriguez APRN [address] [place] [address] [address] [place] [address] Gastroenterology 08/23/16 Mariah Flowers APRN [address] [place] [address] [address] [place] [address] Nurse Practitioner 08/26/16 Neyda Beltran MD [address] [place] [address] [address] [facility] [place] [address] Nephrology 03/17/17 Ryanne Roblero MD [address] [place] [address] [address] [facility] [place] [address] Rheumatology 03/01/18 Mi Martin APRN [address] [place] [address] [address] [place] [address] Nurse Practitioner Nurse Practitioner 04/16/19 Micha Washington MD [address] [place] [address] [address] [place] [address] Endocrinology 08/06/24 08/06/24 documented as of this encounter
--- OUTSIDE RECORDS SUMMARY | 2024-08-13 12:45 | XMS_ITS | Encounter Summary ---
Author Organization [employer] ([place], [place], [place], [place]) Address [address] [place] [address] Care Team Providers Care Tobacco Hanger Name Role Phone Elijah Serra DO Primary Care Provider [phone] Encounter Details Date Type Department Care Team (Late st Contact Info) Description 07/18/2021 Transcribed Document [facility] Family Medicine [address] [place] [address] ProviderMichael MD [address] [place] [address] Social History Tobacco Use Types [...] Do you speak a language other than German at [facility]? No 09/05/2023 Do [...] Conversion Note - Historical Provider, MD - 07/18/2021 3:34 PM CDT ED Event Note Entered On: 07/18/2021 15:35 EDT Performed On: 07/18/2021 15:34 EDT by MARCOS OLSEN RN ED Event Note ED Event Date/Time : 07/18/2021 15:34 EDT ED Event Location : Assigned room ED Event Details : Nursing assessment additional narrative ED Description of Event : RN gave report to ARTHUR Del Cid. MARCOS OLSEN RN - 07/18/2021 15:34 EDT Electronically signed by Eric Don Conversion Workforce Development Program Director Cerner at 05/25/2022 6:22 PM CDT documented in this encounter Plan of Treatment Not on file documented as of this encounter Visit Diagnoses Not on filedocumented in this encounter Care Teams Tobacco Hanger Relationship Specialty Start Date End Date Elijah Serra, DO [address] [facility] [address] [place] [address] PCP - General Family Medicine 03/11/23 documented as of this encounter
--- OUTSIDE RECORDS SUMMARY | 2024-08-13 12:45 | XMS_ITS | Encounter Summary ---
Author Organization [facility] ([place], [place], [place], [place]) Address [address] [place] [address] Care Team Providers Care Wind Turbine Engineer Name Role Phone Elijah Serra DO Primary Care Provider [phone] Encounter Details Date Type Department Care Team (Late st Contact Info) Description 07/18/2021 Transcribed Document [facility] Family Medicine [address] [place] [address] ProviderMichael MD [address] [place] [address] Social History Tobacco Use Types [...] speak a language other than [place] at [facility]? No 09/05/2023 Do you want help with [...] Conversion Note - Historical Provider, - 07/18/2021 10:35 AM CDT [place] Suicide Severity Rating Scale (C-SSRS) Entered On: 07/18/2021 15:32 EDT Performed On: 07/18/2021 15:20 EDT by MARCOS OLSEN RN [place] Suicide Severity Rating Scale (C-SSRS) CSSRS Past Month Wish to be : No CSSRS Past Month Suicidal Thoughts : No CSSRS Lifetime Suicide Behavior : No Suicide Severity Rating Score : 0 Suicide Severity Rating : No Additional Care Required at this time MARCOS OLSEN RN - 07/18/2021 15:20 EDT documented in this encounter Plan of Treatment Not on file documented as of this encounter Visit Diagnoses Not on filedocumented in this encounter Care Teams Wind Turbine Engineer Relationship Specialty Start Date End Date Elijah Serra, DO [address] [facility] [address] [place] [address] PCP - General Family Medicine 03/11/23 documented as of this encounter
--- OUTSIDE RECORDS SUMMARY | 2024-08-13 12:45 | XMS_ITS | Continuity of Care Document ---
Author Organization SYDNEY Jayshree [facility], [facility] Address [address] [place] [address] Care Team Providers Care Office Support Assistant Name Role Phone ELIJAH HOUSTON Primary Care Provider CINDY LABOY Frit Coater LESLEY GRACE Primary Care Provider GABRIELLA GAFFNEY Patient Attendant HILARIA ANGEL Photographer Aerial Assessment Encounter Date Assessment Date Assessment LastModified by Organization Details LastModified Time 07/23/2024 07/23/2024 We will follow-up in 2 months or sooner as needed [email or web address] Not available 07/23/2024 22:02:06 Plan of Treatment Reminders Order Date Submit Date Provider Last Modified By Organization Details Last Modified Time Details Appointments RECHECK 2024 10:40A M HILARIA ANGEL PA-C Not available Not available Not available RECHECK 2024 11:30A M ELIJAH HOUSTON DO Not available Not available Not available RHEUM RECHECK 2024 03:30P M YOLY MACHADO MD Not available Not available Not available NEUROLOG Y RECHECK 2024 10:00A [facility] Not available Not available Not available RECLAST 2024 09:30A M RHEUM_INFU LORI Not available Not available Not available RECHECK 2024 11:30A M GABRIELLA GAFFNEY MD Not available Not available Not available RECHECK 2024 01:15P M XAVIER ISABEL MD Not available Not available Not available DERMATOL OGY VISIT 2024 10:00A M JOSE ANDERSON MD Not available Not available Not available Lab None recorded . Referral physical therapis t referral 2024 025 [email or web address] [facility] Physical Therapy, [address], [place], [address], 08/06/2024 09:40:20 pulmonol ogist referral 2024 025 Hilaria Angel PA-C, [address] [facility], [facility] [address], [place], [address], 07/23/2024 12:28:26 speech therapy referral 2024 025 [facility], [address], [place], [address], 07/31/2024 17:41:43 Procedures None recorded . Surgeries None recorded . Imaging None recorded . Medication Orders amoxicil mariel 875 mg-potas sium clavulan ate 125 mg tablet 2024 025 [place] [id number], [address] [facility] [address] [place], [place], [id number], 08/04/2024 05:01:40 Patient TargetsNo targets recorded. Patient InstructionsNo instructions recorded. Reason for Referral Referring Physician: [facility], Encounter Date: 07/23/2024 Photographer Aerial Referral for P neumonia Referring Physician: [facility], Encounter Date: 07/23/2024 Physical Therapist Referral for Asthenia Referring Physician: [facility], Encounter Date: 07/23/2024 Results Created Date Observation Date Name Description Value Unit Range Abnormal Flag Note LastModifiedBy Organization Detail LastModifiedTime 07/06/1907/05/2024 CT, chest + abdom en + pelvi s, w/o contr ast Chapin maya [facility] [address] [place] [id number] Patien t Name: SOLEDAD Gray Patien t : [phone] Patien t 67 Orderi ng Provid er: ELIJAH HOUSTON EXAM DATE: 2024 EXAM: CT C/A/P WITHOU T CONTRA ST CLINIC AL INFORM ATION: Pain. Coughi ng. Pancre atic lesion TECHNI QUE: Multip le axial CT images of the chest, abdome n and pelvis were obtain ed withou t inject ion of IV contra st. Bowel was opacif ied with oral contra st. COMPAR JUVE: MRI dated 2023, CT chest [address] CHEST: AIRWAY S AND LUNGS: Trache a, princi pal bronch i and major bronch ial branch es are patent and normal . Bibasi lar infilt rates are presen t clearl y greate st in the left lung base with associ ated underl troy bronch iectat ic change . MEDIAS TINUM: No medias tinal lympha denopa thy. Aorta, SVC, pulmon christian arteri es, pulmon christian veins and their major branch es and tribut miguel are normal . Abunda nt grullon ry artery calcif icatio ns are presen t. PLEURA AND CHEST WALL: No pleura l effusi on or mass. No chest wall abnorm ality. FINDIN GS ON CT ABDOME N: UPPER ABDOMI NAL ORGANS : Liver, spleen , pancre as, and adrena ls are normal . Subtle puncta te nonobs tructi ve bilate ral renal stones are presen t.. There is a benign -appea ring 2.2 cm cyst from the barrel washer ior left kidney . Gallbl adder is absent . In the vicini ty of the pancre atic head is a collec tion which appear s to be bowel conten t and I suspec t this is a sizabl e divert iculum extend ing into the pancre atic bed. Correl ate for pancre atic enzyme s. BOWEL AND MESENT DANIELA: Stomac h, small bowel and colon are normal . No mesent kate lympha denopa thy or perito bee free fluid. RETROP ERITON EUM: Aorta, IVC and their branch es are patent and normal . No retrop eriton eal lympha denopa thy. ABDOMI NAL WALL AND SKELET AL STRUCT URES: Normal . FINDIN GS ON CT PELVIS : PELVIC CAVITY : Urinar y bladde r and rectos igmoid are normal . No pelvic or inguin al lympha denopa thy, mass or fluid. MUSCUL OSKELE NEAL STRUCT URES: Normal . COMBIN ED IMPRES LORI: 1. Bibasi lar infilt rates with underl rtoy associ ated bronch iectas is, left base greate r than right 2. Benign -appea ring cyst left kidney with puncta te bilate ral nonobs tructi ve renal stones 3. Very unusua l collec tion in the pancre atic head region has the appear ance of bowel conten t is likely a divert iculum . Interp reted By: Roberto Jurado MD Electr onical ly Signed By: Roberto Jurado MD on 025 12:16 PM [facility] [address] [place] [address] , [place], [address], 07/05/2024 15:07:57 07/17/19 25 07/15/2024 elect cyndi diogr am No observ ation record ed. [facility] Ent [address] [place], [address], 07/19/2024 07:59:43 Result Notes None recorded. Problems Name Problem SNOMED Code Status Onset Date Resolution Date Notes Provider Name and Address Organization Details Recorded Time History of coronary artery bypass grafting 650836062 Active 2020 Mi thompson [facility] 4 09:22:49 Type 1 diabetes mellitus 33950033 Active 2020 DPN ELIJAH HOUSTON, DO [facility] [place], [address] , [facility] 3 19:18:56 Erosive osteoarth rosis 179748715 Active 2020 hydroxych loroquine , cymbalta f/w Rheum ELIJAH HOUSTON, DO [address] [place], [address] , [facility] 3 10:34:29 Coronary arteriosc lerosis 27263556 Active 2020 s/p CABG, Stenting C 08/18/2020 ELIJAH HOUSTON, DO [address] [place], [address] , [facility] 2 10:07:28 Hypothyro idism 98177313 [facility] 09:22:49 Dyspnea on exertion 93566717 Active 2020 JUANY TAYLOR-Claudia [address] [place], [address] , [facility] 1 12:35:15 Secondary gout 779120321 Active 2020 ELIJAH HOUSTON, DO [address] [place], [address] , [facility] 2 10:07:28 Hyperpara thyroidis m due to renal insuffici ency 06791205 Active 2020 NM parathyro id normal ELIJAH HOUSTON, DO [address] [place], [address] , [facility] 3 20:47:44 Calcium pyrophosp hate depositio n disease 046239376 Active 2020 ELIJAH HOUSTON, DO [address] [place], [address] , [facility] 2 10:07:28 Supraspin atus tear 955749414 Active 2020 R, full thickness MRI 07/2020 ELIJAH HOUSTON, DO [address] [place], [address] , [facility] 1 16:39:26 Lumbar spondylol isthesis 43764658557 9102 Active 2020 f/w Dr Edgardo HOUSTON, DO [address] [place], [address] , [facility] 2 10:07:28 History of calculus of kidney 462480747 Active 2020 ELIJAH HOUSTON, DO [address] [place], [address] , [facility] 2 10:07:28 Degenerat griffin disorder of macula 338104548 Active 2020 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 ELIJAH HOUSTON, DO [address] [place], [address] , [facility] 2 10:07:28 Esophagea l dysphagia 31872777 Active 2020 EGD 01/2021, dilated, recc 3y f/u ELIJAH HOUSTON, DO [address] [place] [address] [place], [address] , [facility] 2 10:09:09 Minimal cognitive impairmen t 573981596 Active 2021 ELIJAH HOUSTON DO [address] [place] [address] [place], [address] , [facility] 2 10:09:05 Obstructi ve sleep apnea syndrome 77489232 Active 2021 ELIJAH HOUSTON DO [address] [place] [address] [place], [address] , [facility] 2 10:09:55 Chronic diastolic heart failure 901092817 Active 2021 ELIJAH HOUSTON DO [address] [place] [address] [place], [address] , [facility] 2 18:48:59 Chronic kidney disease stage 3A 161777762 Active 2022 ELIJAH HOUSTON DO [facility] [place], [address] , [facility] 3 10:20:26 Obesity 999233891 Active 2022 [facility] 4 09:22:49 Bronchiec tasis 10681385 Active 2022 ELIJAH HOUSTON DO [address] [place], [address] , [facility] 3 11:01:46 Fecal incontine nce with fecal urgency 18266273822 9102 Active 2023 KP LIANG MD [address] [place], [address] [place] [address] 4 15:03:28 Atheroscl erosis of aorta 11211075 Active Not Available [facility] 4 10:12:08 Acquired thrombocy topenia 83295951 Active Not Available [facility] 4 10:12:26 Hypertens griffin disorder 86477161 Active 2023 ELIJAH HOUSTON DO [address] [place] [address], [address] [place] [address] 4 10:24:41 Sensorine ural hearing loss of bilateral ears 329845121 Active 2024 f/w [facility] ELIJAH HOUSTON DO [address] [place] [address], [address] , [facility] 5 16:04:46 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 Procedures Surgical History Date Name Laterality Status Provider Name and Address Organization Details Recorded Time 07/24/19 25 TCM completed [facility] 07/23/2024 10:04:38 05/22/19 25 Injection Joint/Bursa, Small, w/o US completed KENIA LEO APRN [address] [place], [address] 05/21/2024 15:08:03 04/12/19 25 TCM completed [facility] 04/05/2024 13:12:55 02/16/19 25 Post Void Residual; Ultrasound completed Elizabeth Stone [place] [facility] 02/17/2024 10:05:41 02/06/20 24 Injection Joint/Bursa, Small, w/o US completed KENIA LEO, LOGISTICS ACCOUNT MANAGER [address] [place], [address], [place] [facility] 02/06/2024 15:20:44 01/30/20 24 Destruction Premalignant Lesion(s) completed Renuka Sears [facility] 01/30/2024 10:19:17 01/17/20 24 Injection Joint/Bursa, Small, w/o US completed KENIA LEO, LOGISTICS ACCOUNT MANAGER [address] [place], [address], [facility] 01/17/2024 13:32:56 10/21/19 24 Reclast Infusion completed Milton Zee [facility] 10/21/2023 12:29:17 09/21/19 24 TCM completed Sol Gann [facility] 09/17/2023 09:12:16 06/09/19 24 TCM completed Mo Guerar [facility] 06/02/2023 14:11:12 01/26/20 23 Destruction BN Lesions completed Lalita Coelho [facility] 01/25/2023 09:47:09 01/06/20 23 Spirometry completed Ester Juanis [facility] 01/05/2023 09:10:09 11/30/19 23 Injection Joint/Bursa, Small, w/o US completed KENIA LEO, LOGISTICS ACCOUNT MANAGER [address] [place], [address], [facility] 11/29/2022 10:01:36 11/06/19 23 Airway Resistance completed Ester Juanis [place] [facility] 11/05/2022 08:15:12 11/06/19 23 Diffusion Capacity completed Ester Juanis [place] [facility] 11/05/2022 08:15:10 11/06/19 23 Lung Volumes, Plethysmography completed Ester Juanis [place] [facility] 11/05/2022 08:15:13 11/06/19 23 Spirometry [facility] [place] [facility] 11/05/2022 08:17:05 10/27/19 23 TCM completed [facility] 10/26/2022 09:18:08 07/09/19 23 Stress Test - Nuclear Lexiscan completed GABRIELLA GAFFNEY MD [address] [place], [address], [facility] 07/08/2022 13:15:11 05/01/19 23 TCM completed JELANI VENEGAS PA-C [address] [place], [address], [facility] 04/29/2022 11:47:19 04/23/19 23 EKG completed GABRIELLA GAFFNEY MD [address] [place], [address], [facility] 04/22/2022 13:37:25 04/16/19 23 Injection Joint/Bursa, Small, w/o US completed KENIA LEO APRN [address] [place], [address], [facility] 04/15/2022 09:43:06 04/16/19 23 Injection Trigger Finger completed KENIA LEO APRN [address] [place], [address], [facility] 04/15/2022 09:43:33 03/30/19 23 colonoscopy completed Amita Crawford [facility] 03/31/2022 10:12:24 01/26/20 22 Destruction Premalignant Lesion(s) completed Lalita Coelho [facility] 01/25/2022 10:30:08 01/26/20 22 Shave Lesion; face, ear, eyelid, nose, lip, muc memb completed JOSE ANDERSON MD [address] [place], [address], [facility] 01/26/2022 17:32:59 12/22/19 22 TCM completed Mo Guerra [facility] 12/10/2021 14:48:20 08/18/19 22 Injection Joint/Bursa, Small, w/o US completed KENIA LEO APRN [address] [place], [address], [facility] 08/17/2021 08:38:09 06/24/19 22 EKG completed JASON BURGOS PA-C [address] [place] [address], [address], [facility] 06/23/2021 11:14:58 06/04/19 22 arthroscopic debridement of knee joint completed Kun Jose [facility] 06/17/2021 14:29:32 11/08/19 21 Shave Lesion; trunk, arm, leg completed JOSE ANDERSON MD [address] [place] [address], [address], [facility] 11/11/2020 17:50:29 11/08/19 21 Destruction Premalignant Lesion(s) completed Lalita Coelho [facility] 11/07/2020 13:50:19 11/04/19 21 Op Note completed TRISH MAYNARD MD [address] [place] [address], [address], [facility] 11/03/2020 09:48:35 08/19/19 21 catheterization of left heart completed Marybel Alvarado [facility] 09/01/2020 15:41:19 07/09/19 21 Stress Test - Nuclear Lexiscan completed JOHANA BARNEY MD [address] [place] [address], [address], [facility] 07/08/2020 15:17:35 06/26/19 21 Endoscopy Nasal; Diagnostic completed CINDY LABOY MD [address] [place] [address], [address], [facility] 06/25/2020 16:17:59 06/24/19 21 EKG completed JASON BURGOS PA-C [address] [place] [address], [address], [facility] 06/23/2020 12:34:26 02/07/19 18 Stent Placement completed ELIJAH HOUSTON DO [address] [place] [address], [address], [facility] 07/01/2020 08:01:28 02/07/19 00 CABG completed Madyson Pinto [facility] 06/19/2020 10:53:23 repair of hip completed Madyson Pinto [facility] 06/19/2020 10:54:31 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 completed ELIJAH HOUSTON, [address] [place] [address], [address], [facility] 07/01/2020 08:01:49 Cataract Surgery completed Madyson Pinto [facility] 06/19/2020 11:48:18 removal of thyroid nodule completed ELIJAHANA HOUSTON, [address], [address], [facility] 06/19/2020 12:50:12 cholecystectomy completed ELIJAHANA HOUSTON, [address], [address], [facility] 07/01/2020 08:00:48 Carpal tunnel surgery completed Corin Logan [facility] 11/11/2020 10:10:27 Imaging Results None recorded. Procedure Notes None recorded. Medical Equipment None Reported. Allergies Allergen ID Allergen Name Allergen Category Reaction Reaction Severity Criticality Documentation Date Start Date Code Code System Note Provider Name and Address Organization Details Recorded Time 620927 iodine medicatio n Not available Not available Not available 06/19/2020 5933 RxNorm Madyson Pinto [facility] 10:45:39 638947 adhesive tape environme nt,medica tion Not available Not available Not available 06/19/2020 94612 UNK Madyson Pinto [facility] 10:45:44 Medications Name Sig Start Date Stop Date Status Note LastModified by Organization Details LastModified Time Prescript ion - Renewal 01/06 completed Not Available Not Available Not Available Prescript ion - New 01/06 completed Not Available Not Available Not Available Compound Rx Alternati ves Neuropath ic Pain Cream apply 1-2 grams to hands bilatera lly up to four times per day 01/25 completed Not Available Not Available Not Available amoxicill in 500 mg capsule TAKE 1 CAPSULE BY MOUTH THREE TIMES DAILY FOR 10 DAYS 10/15 completed Not Available Not Available Not Available furosemid e 40 mg tablet TAKE 1 TABLET EVERY DAY 2024 active Not Available Not Available Not Avai lable promethaz ine-DM 6.25 mg-15 mg/5 mL oral syrup TAKE 5 TO 10 ML BY MOUTH EVERY 6 HOURS NEEDED FOR COUGH 07/05 completed Not Available Not Available Not Available gabapenti n 600 mg tablet Take 1 tablet 3 times a day by oral route for 90 days. 04/30 completed Not Available Not Available Not Available doxycycli ne hyclate 100 mg capsule Take 1 capsule twice a day by oral route for 10 days. 07/05 completed Not Available Not Available Not Available ipratropi um 0.5 mg-albute rol 3 mg (2.5 mg base)/3 mL nebulizat ion soln Inhale 3 mL 4 times a day by nebuliza tion route as needed for 7 days. 2024 active Not Available Not Available Not Avai lable clindamyc in HCl 300 mg capsule TAKE ONE CAPSULE BY MOUTH every SIX hours FOR 10 DAYS. 06/19 completed Not Available Not Available Not Available Vitamin C 500 mg tablet Take 1 tablet twice a day by oral route. active Not Available Not Available No t Available tizanidin e 4 mg tablet Take 1 tablet twice a day by oral route. 07/23 completed Not Available Not Available Not Available metoprolo l succinate ER 50 mg tablet,ex tended release 24 hr 07/21 completed Not Available Not Available Not Available sulfameth oxazole 400 mg-trimet hoprim 80 mg tablet TK 1 T PO BID FOR 10 DAYS 06/19 completed Not Available Not Available Not Available hydrocodo ne 5 mg-acetam inophen 325 mg tablet TAKE 1 TABLET BY MOUTH EVERY 8 HOURS 03/03 completed Not Available Not Available Not Available donepezil 10 mg tablet 1 per day 2024 active Not Available Not Available Not Avai lable sucralfat e 1 gram tablet TAKE 1 TABLET TWICE DAILY 07/23 completed Not Available Not Available Not Available ondansetr on HCl 4 mg tablet Take 2 tablets twice a day by oral route as needed. 07/23 completed Not Available Not Available Not Available isosorbid e mononitra te ER 30 mg tablet,ex tended release 24 hr TAKE 1 TABLET BY MOUTH EVERY DAY 07/21 completed Not Available Not Available Not Available betametha sone, augmented 0.05 % topical cream APPLY A THIN LAYER TO THE AFFECTED AREA(S) BY TOPICAL ROUTE TWICE DAILY PRN ; DO NOT EXCEED 50 GRAMS PER WK 2023 active Not Available Not Available Not Avai lable prednison e 5 mg tablet take one po tid x 1 week; one po bid x 1 week then one po daily x 1 week 09/18 completed Not Available Not Available Not Available Mobic 7.5 mg tablet Take 1 tablet every day by oral route for 7 days. 06/19 completed Not Available Not Available Not Available potassium chloride ER 10 mEq tablet,ex tended release 01/06 completed Not Available Not Available Not Available fluocinon ynes 0.05 % topical ointment APPLY TWICE A DAY SPARINGL Y TO LOWER LEGS WHEN NECESSAR Y active Not Available Not Available No t Available acetamino phen 300 mg-codein e 30 mg tablet TAKE 1 TABLET BY MOUTH DAILY DIRECTED 01/15 completed Not Available Not Available Not Available clopidogr el 75 mg tablet TAKE 1 TABLET EVERY DAY -MUST MAKE APPOINTM ENT FOR FURTHER REFILLS 2023 active Not Available Not Available Not Avai lable allopurin ol 100 mg tablet Take 1 tablet every day by oral route. 04/22 completed Not Available Not Available Not Available valacyclo vir 500 mg tablet TAKE 1 TABLET BY MOUTH EVERY DAY 07/15 completed Not Available Not Available Not Available aspirin 81 mg tablet,de layed release Take 1 tablet every day by oral route. active Not Available Not Available No t Available tramadol 50 mg tablet TAKE 1 TABLET BY MOUTH EVERY 4 TO 6 HOURS NEEDED FOR SEVERE POST SURGICAL PAIN 11/18 completed Not Available Not Available Not Available triamcino lone acetonide 0.1 % topical cream APPLY A THIN LAYER TO THE AFFECTED AREA(S) ON LEGS BY TOPICAL ROUTE 2 TIMES PER DAY 2022 active Not Available Not Available Not Avai lable Depo-Medr ol 80 mg/mL suspensio n for injection Take 120 mg by injectio n route. 10/22 completed Not Available Not Available Not Available prednison e 10 mg tablets in a dose pack FOLLOW PACKAGE DIRECTIO NS 05/13 completed Just finished dose pack 3. Not Available Not Available Not Available amoxicill in 875 mg tablet Take 1 tablet every 12 hours by oral route for 7 days. 01/24 completed Not Available Not Available Not Available prednisol one acetate 1 % eye drops,jose manuel pension SHAKE LIQUID AND INSTILL 1 DROP IN RIGHT EYE FOUR TIMES DAILY 04/30 completed Not Available Not Available Not Available tamsulosi n 0.4 mg capsule Take 2 capsules every day by oral route for 90 days. 2024 active Not Available Not Available Not Avai lable gabapenti n 800 mg tablet Take 1 tablet 3 times a day by oral route. 2024 active Not Available Not Available Not Avai lable furosemid e 80 mg tablet TAKE 1 TABLET EVERY DAY 06/08 completed 40mg Not Available Not Available Not Available OneTouch Ultra Test strips 5-6 times daily 2022 active Not Available Not Available Not Avai lable baclofen 10 mg tablet TAKE 1 TABLET TWICE DAILY (STOP TIZANIDI NE) active Not Available Not Available No t Available benzonata te 100 mg capsule 10/22 completed Not Available Not Available Not Available doxycycli ne monohydra te 100 mg capsule TAKE 1 CAPSULE BY MOUTH TWICE DAILY FOR 14 DAYS 07/21 completed Not Available Not Available Not Available cephalexi n 500 mg capsule TAKE 1 CAPSULE BY MOUTH FOUR TIMES DAILY FOR 7 DAYS 06/19 completed Not Available Not Available Not Available pantopraz ole 40 mg tablet,de layed release Take 1 tablet every day by oral route. 04/25 completed not taking Not Available Not Available Not Available erythromy viv 5 mg/gram (0.5 %) eye ointment APPLY A SMALL AMOUNT INTO BOTH EYES AT BEDTIME 07/15 completed Not Available Not Available Not Available trazodone 150 mg tablet Take 1 tablet(s ) every day by oral route. 2024 active Not Available Not Available Not Avai lable levothyro xine 125 mcg tablet TAKE 1 TABLET EVERY DAY 04/05 completed Not Available Not Available Not Available levothyro xine 150 mcg tablet Take 1 tablet every day by oral route. active increase d dose per 04/04 discharg e Not Available Not Available Not Available nitroglyc mary ann 0.4 mg sublingua l tablet Place 1 tablet as needed by sublingu al route. active Not Available Not Available No t Available hydroxyzi ne HCl 25 mg tablet active Not Available Not Available No t Available allopurin ol 300 mg tablet Take 1 tablet every day by oral route. 2024 active Not Available Not Available Not Avai lable mupirocin 2 % topical ointment APPLY TOPICALL Y BID DIRECTED TO RIGHT LEG LESION/A BRASION 06/23 completed Not Available Not Available Not Available [place] 10 mg-325 mg tablet Take 1 tablet 4 times a day by oral route. active DR Hamilton, in pain manageme nt Not Available Not Available Not Available gabapenti n 100 mg capsule Take 1 capsule every day by oral route at bedtime for 7 days. 06/19 completed Not Available Not Available Not Available metoprolo l succinate ER 25 mg tablet,ex tended release 24 hr TAKE 1/2 TABLET EVERY DAY 2023 active Not Available Not Available Not Avai lable Novolog U-100 Insulin aspart 100 unit/mL subcutane ous solution INJECT 100 UNITS SUBCUTAN EOUSLY DAILY- FOR USE WITH INSULIN PUMP 04/11 completed Not Available Not Available Not Available hydroxych loroquine 200 mg tablet Take 2 tablet(s ) every day by oral route. 2024 active Not Available Not Available Not Avai lable epinephri ne 0.3 mg/0.3 mL injection , auto-inje ctor active Not Available Not Available Not Available levofloxa viv 750 mg tablet Take 1 tablet every day by oral route for 5 days. 12/21 completed Not Available Not Available Not Available colchicin e 0.6 mg tablet Take 1 tablet twice a day by oral route. 2024 active Not Available Not Available Not Avai lable cefdinir 300 mg capsule TAKE 1 CAPSULE BY MOUTH TWICE DAILY 12/10 completed Not Available Not Available Not Available fluticaso ne propionat e 50 mcg/actua tion nasal spray,jose manuel pension USE 2 SPRAYS IN EACH NOSTRIL EVERY DAY 2023 active Not Available Not Available Not Avai lable lisinopri l 2.5 mg tablet Take 1 tablet every day by oral route. active Not Available Not Available No t Available colestipo l 1 gram tablet Take 1 tablet twice a day by oral route before meal(s) for 30 days. 2023 active Not Available Not Available Not Avai lable doxycycli ne hyclate 100 mg tablet Take 1 tablet twice a day by oral route. 09/20 completed Not Available Not Available Not Available finasteri de 5 mg tablet Take 1 tablet every day by oral route for 90 days. 2024 active Not Available Not Available Not Avai lable amoxicill in 875 mg-potass ium clavulana te 125 mg tablet Take 1 tablet every 12 hours by oral route for 5 days. 08/04 completed Not Available Not Available Not Available ciclopiro x 0.77 % topical gel 10/08 completed Not Available Not Available Not Available ertapenem 1 gram solution for injection 07/21 completed Not Available Not Available Not Available insulin lispro (U-100) 100 unit/mL subcutane ous pen FOLLOW ATTACHED DIRECTIO NS 12/29 completed Not Available Not Available Not Available Novolog FlexPen U-100 Insulin aspart 100 unit/mL (3 mL) subcutane ous inject 6 untis before meals plus SSI of 1u:50 > 150 max daily 33units 07/23 completed Not Available Not Available Not Available moxifloxa viv 0.5 % eye drops INSTILL 1 DROP IN RIGHT EYE FOUR TIMES DAILY active Not Available Not Available No t Available rosuvasta tin 20 mg tablet TAKE 1 TABLET EVERY DAY 2023 active Not Available Not Available Not Avai lable potassium chloride ER 10 mEq tablet,ex tended release(p art/cryst ) 04/25 completed not taking Not Available Not Available Not Available daptomyci n 500 mg intraveno us solution 07/21 completed Not Available Not Available Not Available metoprolo l tartrate 25 mg tablet .5 BID 07/27 completed Not Available Not Available Not Available duloxetin e 30 mg capsule,d elayed release 06/19 completed Not Available Not Available Not Available duloxetin e 60 mg capsule,d elayed release Take 1 capsule twice a day by oral route. 2024 active Not Available Not Available Not Avai lable BD Ultra-Fin e Mini Pen Needle 31 gauge x 04/22 USE DIRECTED FOUR TIMES DAILY active Not Available Not Available No t Available tizanidin e 4 mg capsule active Not Available Not Available Not Available Mucinex D 60 mg-600 mg tablet,ex tended release TAKE 1 TABLET BY MOUTH TWICE DAILY 10/15 completed Not Available Not Available Not Available iron 06/08 completed not taking Not Available Not Available Not Available Ferrex 150 BID 06/08 completed Not Available Not Available Not Available ferrous gluconate 324 mg (38 mg iron) tablet 10/22 completed Not Available Not Available Not Available Reclast 5 mg/100 mL intraveno us piggyback Inject 5 mg by intraven ous route. 2023 active Reclast - 0.05 mg/ml - 5 mg/100 ml - yearly (#1) - next infusion (#2) 10/23/24 @ 0930 - [facility] 10 - M81.0 Not Available Not Available Not Available Lantus Solostar U-100 Insulin 100 unit/mL (3 mL) subcutane ous pen INJECT 30 UNITS DAILY. INCREASE BY 2 UNITS EVERY 3-5 DAYS FOR MAX DOSE OF 60 UNITS DAILY TO REACH BLOOD SUGAR GOAL OF 90-130. USE 2 UNITS TO PRIME. active Not Available Not Available No t Available Anefrin 0.05 % nasal mist USE 3 SPRAYS IN EACH NOSTRIL BID FOR 4 DAYS UTD 06/19 completed Not Available Not Available Not Available diclofena c 1 % topical gel APPLY 2 GRAMS TO AFFECTED AREA FOUR TIMES DAILY active Not Available Not Available No t Available Zirgan 0.15 % eye gel 10/22 completed Not Available Not Available Not Available guaifenes in ER 600 mg tablet, extended release 12 hr Take 1 tablet every 12 hours by oral route for 30 days. 01/25 completed Not Available Not Available Not Available Droplet Pen Needle 31 gauge x 06/22 USE DIRECTED FOUR TIMES DAILY WITH INSULIN active Not Available Not Available No t Available Ese Max U-300 SoloStar 300 unit/mL (3 mL) subcutane ous insulin pen Inject 10 units every day by subcutan eous route at bedtime. active Not Available Not Available No t Available Oxervate 0.002 % eye drops 07/27 completed Not Available Not Available Not Available OneTouch Delica Plus Lancet 33 gauge USE DIRECTED FOR TESTING 5 TO 6 TIMES DAILY active Not Available Not Available No t Available Sutab 1.479-0.1 88-0.225 gram tablet As Directed 11/11 completed Not Available Not Available Not Available BinaxNOW COVID-19 Ag Self Test kit TEST DIRECTED TODAY 12/10 completed Not Available Not Available Not Available DropSafe Alcohol Prep Pads USE DIRECTED FIVE TIMES DAILY INSTRUCT ED 06/08 completed 07/20/22- 10/14/22 Not Available Not Available Not Available Lagevrio 200 mg capsule (EUA) TAKE 4 CAPSULES BY MOUTH EVERY 12 HOURS FOR 5 DAYS 10/22 completed Not Available Not Available Not Available Vitals Date Recorded Body height Body mass index (BMI) Body weight Heart rate Respiratory rate Oxygen saturation Oxygen saturation in Arterial blood by Pulse oximetry Systolic And Diastolic Provider Name and Address Organization Details Last Updated DateTime 5 175.26 cm 26.6 kg/m2 03114.6 3 g 70 /min 18 /min 94 % 94 % 126/58 mm[Hg] Madyson Pinto [facility] 5 11:23:50 Social History Question Answer Notes LastModified by Organizat ion Details LastModified Time Tobacco Smoking Status Former Smoker Susan thompson [facility] 10/23/2020 08:53:41 What Is Your Level Of Caffeine Consumption? Moderate [email or web address] Information not available 06/19/2020 What Type Of Diet Are You Following? REGULAR [email or web address] Information not available 06/19/2020 Education 2 Year College [email or web address] Information not available 06/19/2020 When Did You Quit Smoking? 16+yearssince colt Information not available 07/15/2022 Live Alone Or With Others? With Others Information not available 06/19/2020 Marital Status [email or web address] Informatio n not available 06/19/2020 What Was The Date Of Your Most Recent Tobacco Screening? 05/23/2024 [email or web address] Information not available 05/23/2024 How Many Children Do You Have? 5 [email or web address] Information not available 06/19/2020 What Is Your Relationship Status? [email or web address] Information not available 10/03/2020 Are You Sexually Active? No [email or web address] Information not available 06/19/2020 At What Age Did You Start Smoking Tobacco? 18 [email or web address] Information not available 11/05/2022 How Much Tobacco Do You Smoke? No [email or web address] Information not available 07/17/2020 Has Tobacco Cessation Counseling Been Provided? No [email or web address] Information not available 10/03/2020 How Many Years Have You Smoked Tobacco? 0 [email or web address] Information not available 07/17/2020 Sex: Male Functional Status Question Answer Note LastModified by Organizat ion Details LastModified Time Do you use any illicit or recreational drugs? No [email or web address] Information not available 10/03/2020 Do you or have you ever used any other forms of tobacco or nicotine? No [email or web address] Information not available 10/03/2020 What is your level of alcohol consumption? None [email or web address] Information not available 06/19/2020 Do you or have you ever used smokeless tobacco? Never used smokeless tobacco [email or web address] Information not available 07/17/2020 Are you currently employed? No [email or web address] Information not available 06/30/2023 Are you able to care for yourself? 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 Never used electronic cigarettes [email or web address] Information not available 07/17/2020 What is your exercise level? None Information not available 06/19/2020 Mental Status None recorded. Family History Relationship Description Onset Age of this Age Resolved Age Notes LastModified by Organization Details LastModified Time Mother Blood coagulation disorder [email or web address] Not available 2020 11:46:13 Mother Myocardial infarction Not available 06/19 11:46:44 Mother Cerebrovascu lar accident [email or web address] Not available 11:46:56 Mother Disorder of thyroid gland Not available 2020 11:47:03 Mother Complication of anesthesia [email or web address] Not available 02/05 13:08:57 Mother Heart disease [email or web address] Not available 2021 13:09:17 Mother Hypertensive disorder [email or web address] Not available 2021 13:09:28 Mother Diabetes mellitus [email or web address] Not available 2021 13:09:45 Brother Malignant melanoma [email or web address] Not available 2020 11:46:32 Brother Myocardial infarction [email or web address] Not available 06/19 11:46:48 Brother Disorder of thyroid gland [email or web address] Not available 2021 13:09:03 Sister Heart disease [email or web address] Not available 2021 13:09:17 Sister Hypertensive disorder [email or web address] Not available 2021 13:09:28 Sister Diabetes mellitus [email or web address] Not available 2021 13:09:45 Medical History Condition Response Coronary Artery Disease Y Gout Y Other N Atrial Fibrillation N Kidney Stones Y Hyperthyroidism N Blood Transfusion Y Emphysema N Lung Disease Y Hypothyroidism Y Depression N COPD N Pneumonia Y Breast Problem N Difficulty Swallowing Y Anesthesia Complications N Anxiety Disorder Y Meniere's disease N Muscle, Joint, or Bone Problems Y Vision or Eye Problems Y Arthritis Y Infertility N Polyps N Blood Clot N Acid Reflux (GERD) Y Cancer N Stroke N Varicosities N Endometriosis N Bladder or Kidney Problems Y High Cholesterol Y Liver Disease N Rheumatoid Arthritis N Headaches Y Fibromyalgia N Kidney Disease Y Allergies/Hayfever Y Heart Problems Y Parkinson's Disease N Ear or Hearing Problems Y Hospitalizations Y Alzheimer's N Thyroid Problems Y GI Problems N Eating Disorder N Skin Problems N Anemia Y Constipation Y Mental Illness N Diabetes Y Ovarian Cancer N Bleeding Disorder Y Seizures/Epilepsy N Tuberculosis N Eczema N Diverticulitis Y Asthma N Reflux/GERD Y Sleep Apnea Y GERD/Reflux Y Hepatitis N Heart Disease Y Pulmonary Embolism N Chronic Ear Infections Y Pre-Eclampsia N Hypertension Y Chicken Pox N Osteoporosis Y Thrombophilias N Immunizations Vaccine Type Date Status Note Provider Nam e and Address Organization Details Recorded Time Influenza, high-dose, quadrivalent, PF 1 completed Madyson Pinto [facility] 12/19/2020 10:31:45 Influenza, high-dose, quadrivalent, PF 2 completed ELIJAH HOUSTON DO [address] [place] [address], [phone], [facility] 12/21/2021 14:25:14 Influenza, high-dose, quadrivalent, PF 3 completed ELIJAH HOUSTON DO [address] [place] [address], [phone], [facility] 12/01/2022 15:39:31 COVID-19 vaccine, vector-nr, rS-ChAdOx1, PF, 0.5 mL 1 completed Not Available [facility] 03/08/2023 14:48:10 COVID-19 vaccine, vector-nr, rS-ChAdOx1, PF, 0.5 mL 1 completed Not Available [facility] 03/08/2023 14:48:10 COVID-19, mRNA, LNP-S, PF, 50 mcg/0.5 mL 3 completed ELIJAH HOUSTON DO [address] [place] [address], [phone], [facility] 01/24/2023 09:42:50 RSV, recombinant, protein subunit RSVpreF, adjuvant reconstituted, 0.5 mL, PF 3 completed ELIJAH HOUSTON DO [address] [place] [address], [phone], [facility] 01/24/2023 09:42:50 COVID-19, mRNA, LNP-S, PF, 30 mcg/0.3 mL dose 1 [facility] 12:55:14 Influenza, high-dose, trivalent, PF 4 completed ELIJAH HOUSTON DO [address] [place] [address], [phone], [facility] 01/26/2024 10:51:52 COVID-19, mRNA, LNP-S, PF, 50 mcg/0.5 mL 4 completed ELIJAH HOUSTON DO [address] [place] [address] [place], [phone], [facility] 01/26/2024 10:51:52 zoster recombinant 2 completed Sabrina Critchley null, [facility] 04/30/2022 12:55:13 zoster recombinant 2 completed Sabrina Critchley null, [facility] 04/30/2022 12:55:14 Influenza, adjuvanted, quadrivalent, PF 0 completed Sabrina Critchley [facility] 04/30/2022 12:55:14 COVID-19, mRNA, LNP-S, PF, 30 mcg/0.3 mL dose 1 completed Sabrina Critchley [facility] 04/30/2022 12:55:14 COVID-19, mRNA, LNP-S, PF, 30 mcg/0.3 mL dose 1 completed Sabrina Critchley null, [facility] 04/30/2022 12:55:14 Tdap 0 completed Sabirna Critchley [facility] 04/30/2022 12:55:14 influenza, seasonal, intradermal, preservative free 9 completed Sabrina Critchley [facility] 04/30/2022 12:55:14 influenza, seasonal, intradermal, preservative free 8 [facility] 12:55:14 Past Encounters Encounter ID Performer Location Encounter Start Date Encounter Closed Date Diagnosis/Indication Diagnosis SNOMED-CT Code Diagnosis ICD10 Code Diagnosis Note [id number] ELIJAH HOUSTON DO [facility] [address] [place] [address] 07/05/2024 10:32:51 07/05/2024 11:53:45 Right flank pain 296813705 R10.9 Right flank pain and history of nephrolith iasis concerning for same currently. Urinalysis is normal and he has had no gross hematuria. He continues Flomax and finasterid e. Keeping well-hydra louisa.Will proceed with CT AP to evaluate for nephrolith iasis or other intra-abdo peter causes for his flank pain. Labs as below. Indication s for emergent evaluation reviewed and patient expresses understand ing with plan Chronic cough 34221613 R 05.3 Right-side d pneumonia 03/2024, now with left sided rhonchi and chronic cough. Recommend CT chest to evaluate.R val history of 5 mm pancreatic head lesion on outside imaging 10/2023.Toan stratton attempt to get CT chest abdomen pelvis today without contrast for stone evaluation , if intra-abdo peter lesion is again noted contrasted imaging follow up may ultimately be necessary. Chronic ki dney disease stage 3A 185500933 N18.31 Most recent GFR has improved to 74Stable. Continue to avoid NSAIDs. Continued control of diabetes of paramount importance [id number] ELIJAH HOUSTON, DO [facility] [address] [place] [address] 07/23/2024 11:13:53 07/23/2024 12:28:26 Chronic diastolic heart failure 248554300 I50.32 EuvolemicC ontinues Lasix 40 mg dailyConti nue active management with cardiology Type 1 esme betes mellitus 60191566 E10.22 E10.40 E10.65 E10.319 Z79.4 E10.3492 w/ hyperglyce maria eugenia, diabetic kidney disease, diabetic neuropathy and retinopath y.Long-ter m insulin useMost recent a1c 7.8 % 07/2023Foll owing with endocrinol Dr Padmini haro in [facility] [place] Continue close follow-up with endocrinol ogluis alfredo. Hx retinopath y, f/w Dr Weston, continue surveillan ce. Obstructiv e sleep apnea syndrome 29602319 G47.33 Not currently using CPAP due to intoleranc e.History of severe MICAELA with AHI January 2021 of 69Evaluate d with sleep endoscopy and reports he was deemed not a candidate for Inspire.Re commend he reconsider CPAP, he declines. 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 Hypertensive disorder 38 342597 I10 Remains well-contr olled, continue current medication regimen Coronary arteriosclerosis 55557389 I25.10 s/p 5 vessel cabg 2000. Stenting x1 ~2016, x3 in 2018Heart catheteriz ation 08/18/2020 revealed severe CAD involving the left anterior descending , diagonal and obtuse marginal arteries.P atent SV graftsLVEF 55% Myoview 07/08/2022 showed small area of ischemia in the inferior basal wall, LVEF 62%Continu ing medical management and active management with cardiology Hyperparat hyroidism due to renal insufficiency 70584953 N25.81 Previous nuclear medicine evaluation of parathyroi d was normal.Hyp erparathyr oidism secondary to CKDContinu e active management with nephrology Pneumonia 120259030 J18. 9 Multi recurrent pneumonia. Will extend Augmentin course x 5 additional days.,Oliverio mmend follow-up with pulmonolog y, patient and in agreement. Esophageal dysphagia 408 32920 R13.19 Recommend to continue with speech therapy. Honey thickened liquids and intentiona l chewing/ca ution to protect airway. Asthenia 03654218 R53.1 Recommend PT/gait therapy. Continue rolling walker use at all times Health Concerns Section Related Observation LastModified by Organization Detai ls LastModified Time None Recorded Concern Status LastModified by Organization Details LastModified Time None Recorded Payers Encounter Date Sequence Insurance Name Policy Number Policy Coleman Covered Member ID Coleman Member ID Guarantor Name 07/23/2024 1 [place]ARE[place] [employer] [id number] [employer] 07/23/2024 2 [employer] (MEDICARE SUPPLEMENT) [employer] [id number] [employer] Notes Date Note Type Note Provider Name and Address Organization Details Recorded Time 07/23/2024 text/html TCMReported bypatient.Details:admi ssion date: (07/15/24); date of discharge: (07/20/24); discharge provider: (Edgardo Corbett MD); Facility [facility]; diagnosis (#) Recurrent Multifocal pneumonia #) Acute hypoxic respiratory failure #) Bronchiectasis #) Fall other stairs and steps, initial encounter #) Weakness, Debility, Reduced Mobility #) Oropharyngeal dysphagia#) Esophageal stricture); date interactive contact was made: (07/23/24) Current Caregivers:self; family member (, river) [facility] Performed:not medically indicated Reported Medicationsrecent change in medication: new medication (- amoxicillin-clavulanat e 875-125 MG tablet BID X 5 doses); Discontinued Medications (STOP THESE MEDICATIONS: - Tizanidine - Ondansetron - Sucralfate - Potassium ChlorideCHANGE THE DOSE OF THESE MEDICATIONS: - Decrease Glargine from 20 to 10 units at night) Procedure(s) / Surgeries while admittedProcedure(s) / Surgeries while admitted (- XR CHEST 1 VIEW 07/20/24: Emphysema with bibasilar and left upper lobe airspace disease.- CT FACE WO IV CONTRAST 07/15/24: No acute intracranial hemorrhage or acute large territorial infarction.Age-appropr iate cerebral atrophy with mild to moderate periventricular and deep white matter change, nonspecific, potentially sequela of chronic microvascular ischemic disease.No acute facial fracture.- CT ABDOMEN PELVIS WO IV CONTRAST 07/15/24: CT chest: Left lower lobe consolidation and multifocal airspace opacities left upper lobe and right lower lobe concerning for multifocal pneumonia.Incidental D3 diverticulum measuring 3 cm. No acute abnormality within the abdomen and pelvis.No acute fracture or malalignment of the cervical, thoracic and lumbar spine.- CT HEAD WO IV CONTRAST 07/15/24: No acute intracranial hemorrhage or acute large territorial infarction.Age-appropr iate cerebral atrophy with mild to moderate periventricular and deep white matter change, nonspecific, potentially sequela of chronic microvascular ischemic disease.No acute facial fracture.) Discharge/Functional statusdischarge instructions (- follow up with PCP in 1 week.- follow up with [facility] 08/06/24- follow up with cardiology regarding heart monitor results) Transferred to [facility] and hospitalized 07/15 through 07/20/2024 for recurrent multifocal pneumonia with acute hypoxic respiratory failure. Began after ED visit for fall down stairs, was walking to the bathroom when he lost balance and fell down 15 steps, stairs were adjacent to the bathroom. Fortunately did not break anything. He was found to have AHRF, recurrent multifocal pneumonia and bronchiectasis. Received IV Pip/Tazo and transitioned to Amox/Clav PO. CT imaging multifocal PNA, but no acute intracranial findings, acute fracture or malalignment. On discharge, his tizanidine was stopped, insulin reduced and was ordered a 14-day cardiac patch monitor which he is currently wearing.Will need follow-up with cardiology.During hospitalization had evaluation of dysphagia with barium study which revealed no penetration. Was recommended honey thickened liquids and recommended to continue speech therapy. Definite concern that his recurrent pneumonia may be secondary to aspiration versus bronchiectasis. Since returning home he states that he is still quite sore from his fall but fortunately has suffered no subsequent fall or injury. Ambulating with rolling walker now at all times. Interested in continuing physical therapy for strengthening and balance. ELIJAH HOUSTON DO [facility] [place], [address], [facility] 07/23/2024 22:02:11
--- OUTSIDE RECORDS SUMMARY | 2024-08-13 12:45 | XMS_ITS | Encounter Summary ---
Author Organization [facility] Address [address] [place] [address] Support Name Relationship Address Phone Stepan Gold Personal Relationship [address] [place] [address] Mi Asif Personal Relationship Unknown Rosalind Andersonill Personal Relationship Unknown [phone] Vivi Ward Personal Relationship Unknown Care Team Providers Care Staffing Administrator Name Role Phone Yehuda Barger MD Primary Care Provider [phone] Willi Templeton MD Unavailable María Andre MD Unavailable Selene Rodriguez EDUCATIONAL/DEVELOPMENT ASSISTANT Unavailable Mariah Flowers EDUCATIONAL/DEVELOPMENT ASSISTANT Unavailable Neyda Beltran MD Unavailable Ryanne Roblero MD Unavailable Unavailable Mi Martin EDUCATIONAL/DEVELOPMENT ASSISTANT Unavailable [phone] Elijah Serra DO Primary Care Provider Micha Washington MD Unavailable Reason for Visit * Reason Onset Date Comments Medications Refill 04/15/2022 Encounter Details Date Type Department Care Team (Late st Contact Info) Description 04/15/2022 Refill Pb [facility] Yehuda Barger [facility] [address] [place] [address] [address] [place] [address] Yehuda Barger MD [address] [place] [address] [address] [facility] [place] [address] Social History Tobacco Use Types Packs/Day Years [...] 11:00 AM EDT Office Visit [facility] [address] [place] [address], [facility] [address] [place] [phone] Micha Washington MD [address] [place] [address] [phone] Molly Figueroa PA-C [address] [place] [address] [place] [address] [phone] documented as of this encounter Visit Diagnoses Not on filedocumented in this encounter Additional Health Concerns Infection Onset Date Last Indicated Resolved Time 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 02/24/2017 02/22/2017 02/22/2017 04/02/2024 9:[address] documented as of this encounter Care Teams Staffing Administrator Relationship Specialty Start Date End Date Yehuda Barger MD [address] [place] [address] [facility] [place] [address] PCP - General 02/16/09 04/13/23 Elijah Serra DO [address] [place] [address] PCP - General Family Medicine 07/21/23 Willi Templeton MD [address] [place] [address] [address] [place] [address] Gastroenterology 02/25/16 María Andre MD [address] [place] [address] [address] [place] [address] Gastroenterology 03/08/16 Selene Rodriguez APRN [address] [place] [address] 203 [place] [address] Gastroenterology 08/23/16 Mariah Flowers APRN [address] [place] [address] 510 [place] [address] Nurse Practitioner 08/26/16 Neyda Beltran MD [address] [place] [address] [address] [place] [address] Nephrology 03/17/17 Ryanne Roblero MD [address] [place] [address] [address] [place] [address] Rheumatology 03/01/18 Mi Martin APRN [address] [place] [address] 102 [place] [phone] Nurse Practitioner Nurse Practitioner 04/16/19 Micha Washington MD [address] [place] [address] [address] [place] [address] Endocrinology 08/06/24 08/06/24 documented as of this encounter
--- OUTSIDE RECORDS SUMMARY | 2024-08-13 12:45 | XMS_ITS | Encounter Summary ---
Author Organization [facility] Address [address] [place] [address] Support Name Relationship Address Phone Stepan Gold Personal Relationship [address] [place] [address] Mi Gold Personal Relationship Unknown [phone] Rosalind Mai Personal Relationship Unknown [phone] Vivi Ward Personal Relationship Unknown Care Team Providers Care Promotions Firm Accounts Manager Name Role Phone Lesley Grace MD Primary Care Provider [phone] Willi Templeton MD Unavailable María Andre MD Unavailable Selene Rodriguez SUPERVISOR TUBING Unavailable Mariah Flowers SUPERVISOR TUBING Unavailable Neyda Beltran MD Unavailable Ryanne Roblero MD Unavailable Unavailable Mi Martin SUPERVISOR TUBING Unavailable [phone] Elijah Serra DO Primary Care Provider Micha Washington MD Unavailable Encounter Details Date Type Department Care Team (Late st Contact Info) Description 11/30/[address] LESLEY GRACE MD, [facility] 105 [facility] 194 [place] [phone] Lesley Grace MD 105 [facility] [address] [place] [address] Social History Tobacco Use Types [...] have Coronavirus / COVID-19? No / Unsure 11/30/2019 1:21 PM EDT documented as of this encounter Miscellaneous Notes * Telephone Encounter - Sapphire Mary - 11/30/2019 9:[address] on right leg. He scraped up against a concrete block a couple weeks ago # [phone] Eliana Phillips Pt is sending pic to my phone if you need to look at it. documented in this encounter Plan of Treatment Upcoming Encounters Date Type Department Care Team (Late st Contact Info) Description 11/06/2024 11:00 AM EDT Office Visit [address], [address] [place] [address] Micha Washington MD [address] [facility] [address] [place] [address] Molly Figueroa PA-C [address] [place] [address] documented as of this encounter Visit Diagnoses Not on filedocumented in this encounter Additional Health Concerns Infection Onset Date Last Indicated Resolved Time 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 02/24/2017 02/22/2017 02/22/2017 04/02/2024 9:[address] documented as of this encounter Care Teams Promotions Firm Accounts Manager Relationship Specialty Start Date End Date Lesley Grace MD [address] [place] [address] [address] [place] [address] PCP - General 02/16/09 04/13/23 Elijah Serra DO 100 [place], [place] [id number] PCP - General Family Medicine 07/21/23 Willi Templeton MD [address] [place], [place] [address] Gastroenterology 02/25/16 María Andre MD [address] [place] [address] Gastroenterology 03/08/16 Selene Rodriguez APRN [address] [place] [address] 203 [place] [address] Gastroenterology 08/23/16 Mariah Flowers APRN 613 [address] [address] [place] [address] Nurse Practitioner 08/26/16 Neyda Beltran MD [address] [place] [address] Nephrology 03/17/17 Ryanne Roblero MD [address] [place] [address] Rheumatology 03/01/18 Mi Martin APRN [address] [place] [address] 102 [place] [phone] Nurse Practitioner Nurse Practitioner 04/16/19 Micha Washington MD [address] [place] [address] Endocrinology 08/06/24 08/06/24 documented as of this encounter
--- OUTSIDE RECORDS SUMMARY | 2024-08-13 12:45 | XMS_ITS | Encounter Summary ---
Author Organization [facility] Address [address] [place] [address] Support Name Relationship Address Phone Stepan Gold Personal Relationship [address] [facility] [place] [address] Mi Gold Personal Relationship Unknown Rosalind Mai Personal Relationship Unknown [phone] Vivi Ward Personal Relationship Unknown Care Team Providers Care Immigration Officer Name Role Phone Lesley Grace MD Primary Care Provider [phone] Willi Templeton MD Unavailable [phone] María Andre MD Unavailable [phone] Selene Rodriguez ORDNANCE TECHNICIAN Unavailable Mariah Flowers ORDNANCE TECHNICIAN Unavailable Neyda Beltran MD Unavailable Ryanne Roblero MD Unavailable Unavailable Mi Martin ORDNANCE TECHNICIAN Unavailable [phone] Elijah Serra DO Primary Care Provider [phone] Micha Washington MD Unavailable Reason for Visit * Reason Onset Date Comments Phone Advice For Symptoms 08/21/2018 Encounter Details Date Type Department Care Team (Late st Contact Info) Description 08/21/[address] LESLEY GRACE MD, [facility] [address] [place] [phone] Lesley Grace MD [address] [place] [address] 194 [facility] [address] [place] [address] Phone Advice For Symptoms Social History Tobacco [...] encounter Miscellaneous Notes * Telephone Encounter - Lakeshia Norman - 09/08/2018 8:37 AM EDT 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 * Telephone Encounter - Lakeshia Norman - 08/21/2018 2:35 PM EDT Van states that he spent the most of Tuesday morning in the ER with kidney stones. He is asking if you will refer him to Dr. Ross in [place]? Says that he has seen him before(the father). documented in this encounter Plan of Treatment Upcoming Encounters Date Type Department Care Team (Late st Contact Info) Description 11/06/2024 11:00 AM EDT Office Visit [address], [address] [place] [phone] Micha Washington MD [address] [facility] [address] [place] [address] Molly Figueroa PA-C [address] [place] [address] documented as of this encounter Visit Diagnoses Not on filedocumented in this encounter Additional Health Concerns Infection Onset Date Last Indicated Resolved Time 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 02/24/2017 02/22/2017 02/22/2017 04/02/2024 9:[address] documented as of this encounter Care Teams Immigration Officer Relationship Specialty Start Date End Date Lesley Grace MD [address] [place] [address] [address] [place] [address] PCP - General 02/16/09 04/13/23 Elijah Serra DO 100 [place] [address] PCP - General Family Medicine 07/21/23 Willi Templeton MD [address] [place] [address] Gastroenterology 02/25/16 María Andre MD [address] [address] [place] [address] Gastroenterology 03/08/16 Selene Rodriguez APRN [address] [place] [address] 203 [place], [place] [address] Gastroenterology 08/23/16 Mariah Flowers APRN [address] [place] [address] [place] [address] Nurse Practitioner 08/26/16 Neyda Beltran MD [address] [place] [address] Nephrology 03/17/17 Ryanne Roblero MD [address] [place] [address] Rheumatology 03/01/18 Mi Martin APRN [address] [place] [address] Nurse Practitioner Nurse Practitioner 04/16/19 Micha Washington MD [address] [place] [address] [place] [address] Endocrinology 08/06/24 08/06/24 documented as of this encounter
--- OUTSIDE RECORDS SUMMARY | 2024-08-13 12:46 | XMS_ITS | Clinical Summary ---
Author Organization [facility] Address [address] [place] [address] Phone Care Team Providers Care Sales Engineer Engineered Products Name Role Phone Darwin Velasco MD [phone] [ ] Conditions or Problems Problem Name Problem Code Onset Date Status Entry Date Provider Comment Standard Description Annotate Infective bursitis, left knee (document organism) M71.162 (ICD-10-CM) 05/27 Inactive 05/27 Mojgan Hussein Other infective bursitis, left knee Problem excluded fro m report: Prepatellar bursitis, left knee M70.42 (ICD-10-CM) 05/27 Active 05/27 Mojganhai Savage Prepatellar bursitis, left knee DM, type I 46538706 (SNOMED CT) 05/27 Active 05/27 Mojgan Hussein Type 2 diabetes mellitus Benign Essential Hypertension 47174485 (SNOMED CT) 05/27 Active 05/27 Mojgan Hussein Benign hypertension Infective bursitis, left knee (document organism) M71.162 (ICD-10-CM) 05/27 Removed 05/27 Mojgan Hussein Other infective bursitis, left knee Cellulitis of LLE 384999368 (SNOMED CT) 05/27 Active 05/27 Mojgan Hussein Cellulitis of lower limb Medications Medication Instructions Start Date Stop Date Generic Name NDC Provider Invanz unspecified unspecified Invanz 1GM IV daily [facility] labs linecare and dose weekly 06/24 ertapenem [id number] Asha Mcdermott RN Cubicin unspecified unspecified Cubicin 500mg IV daily [facility] labs linecare and dose 06/24 daptomycin 10865982818 Asha Mcdermott RN DOXYCYCLINE MONOHYDRATE 100 MG CAPS 1 capsule by mouth twice a day 06/24 doxycycline monohydrate 29789296314 Darwin Velasco MD Invanz unspecified unspecified Invanz 1GM IV daily [facility] labs linecare and dose weekly 06/24 ertapenem 96866935546 Asha Mcdermott RN Cubicin unspecified unspecified Cubicin 500mg IV daily [facility] labs linecare and dose 06/24 daptomycin 13818553365 Asha Mcdermott RN POTASSIUM CHLORIDE ER 10 MEQ CR-TABS as directed potassium chloride 897498554 77 Judson Sawyer GABAPENTIN 600 MG TABS 2 tab daily gabapentin 93264170835 Judson Sawyer MOXIFLOXACIN HCL 0.5 % SOLN 06/02 moxifloxacin 65900746212 Jose Sherman ERYTHROMYCIN 5 MG/GM OINT 06/02 erythromycin 27980411950 Jose Sherman TIZANIDINE HCL 4 MG TABS 1 tab daily as needed tizanidine 80195333753 Judson Sawyer TRIAMCINOLONE ACETONIDE 0.1 % CREA 06/02 triamcinolone acetonide 18635490884 Jose China NITROGLYCERIN 0.4 MG SUBL 06/02 nitroglycerin 24506602534 Jose China HYDROXYCHLOROQUINE SULFATE 200 MG TABS 1 tab daily hydroxychloroquine 6291210 7301 Judson Sawyer DICLOFENAC SODIUM 1 % GEL 06/02 diclofenac sodium 44629701184 Jose Sherman CICLOPIROX 0.77 % GEL 1 as directed to affected area once a day ciclopirox 97032862316 Judson Sawyer METOPROLOL SUCCINATE ER 50 MG [id number] 1 tab daily metoprolol succinate 08682179524 Judson Friasi BACLOFEN 10 MG TABS 06/02 baclofen 15839362998 Jose Sherman HYDROCODONE-ACETAMI NOPHEN 5-325 MG TABS 1 tab every 6 hrs as needed hydrocodone-acetami nophen 49019574968 Judson Sawyer ISOSORBIDE MONONITRATE ER 30 MG [id number] 06/02 isosorbide mononitrate 78769977725 Jose China FLUTICASONE PROPIONATE 50 MCG/ACT SUSP as directed fluticasone propionate 32651469394 Judson Sawyer CLOPIDOGREL BISULFATE 75 MG TABS 1 tab daily clopidogrel 74432981148 Judson Sawyer FUROSEMIDE 40 MG TABS 1 tab daily furosemide 25063113601 Judson Sawyer LISINOPRIL 2.5 MG TABS 1 tab daily lisinopril 18722354853 Judson Sawyer TAMSULOSIN HCL 0.4 MG CAPS 1 tab at nightly tamsulosin 34290077046 Judson Sawyer DULOXETINE HCL 60 MG CPEP 06/02 duloxetine 02896056767 Jose China SUCRALFATE 1 GM TABS 1 tab daily sucralfate 34736121873 Judson Sawyer CLINDAMYCIN HCL 300 MG CAPS 06/02 clindamycin hcl 32346855047 Jose Sherman ALLOPURINOL 100 MG TABS as directed allopurinol 82593327731 Judson Sawyer Novolog U-100 Insulin aspart 100 unit/mL solution 06/02 insulin aspart u-100 01589958554 Jose China LEVOTHYROXINE SODIUM 125 MCG TABS 1 tab daily levothyroxine 16766799394 Judson Sawyer TRAZODONE HCL 150 MG TABS as directed trazodone 43710303611 Judson Sawyer aspirin 325 mg capsule 1 tab daily aspirin Judson Sawyer CRESTOR 20 MG TABS 1 tab daily rosuvastatin 0031 0665409 Judson Sawyer COLCHICINE 0.6 MG TABS 1 tab daily colchicine 93133301399 Judson Sawyer sumatriptan succinate unspecified unspecified as directed sumatriptan succinate Judson Sawyer Augmentin 875-125 mg tablet 1 tab BID amoxicillin-pot clavulanate 68862224219 Judson Sawyer MOXIFLOXACIN HCL 0.5 % SOLN 06/02 moxifloxacin 50991906333 Jose China DICLOFENAC SODIUM 1 % GEL 06/02 diclofenac sodium 13402619425 Jose Sherman DULOXETINE HCL 60 MG CPEP 06/02 duloxetine 20125617374 Jose Sherman TAMSULOSIN HCL 0.4 MG CAPS 10/17 tamsulosin 62780973993 Jose China TRAZODONE HCL 150 MG TABS 06/02 trazodone 37476852733 Jose China TRIAMCINOLONE ACETONIDE 0.1 % CREA 02/02 triamcinolone acetonide 05803586833 Jose Sherman POTASSIUM CHLORIDE ER 10 MEQ CR-TABS 06/02 potassium chloride 11911568170 Jose China ISOSORBIDE MONONITRATE ER 30 MG [id number] 06/02 isosorbide mononitrate 54484797561 Jose Sherman CICLOPIROX 0.77 % GEL 06/02 ciclopirox 56746707122 Jose Sherman FUROSEMIDE 40 MG TABS 06/02 furosemide 83340937671 Jose China HYDROXYCHLOROQUINE SULFATE 200 MG TABS 08/07 hydroxychloroquine 58435819248 Jose China FLUTICASONE PROPIONATE 50 MCG/ACT SUSP 08/07 fluticasone propionate 62176108691 Jose Sherman LISINOPRIL 2.5 MG TABS 06/02 lisinopril 61150288230 Jose China Novolog U-100 Insulin aspart 100 unit/mL solution 06/02 insulin aspart u-100 37496726542 Jose China LEVOTHYROXINE SODIUM 125 MCG TABS 06/02 levothyroxine 91017828415 Jose Sherman ERYTHROMYCIN 5 MG/GM OINT 06/02 erythromycin 34693244039 Jose China NITROGLYCERIN 0.4 MG SUBL 06/02 nitroglycerin 47434516902 Jose China BACLOFEN 10 MG TABS 06/02 baclofen 15045939703 Jose China CLOPIDOGREL BISULFATE 75 MG TABS 06/02 clopidogrel 32123472386 Jose Sherman ALLOPURINOL 100 MG TABS 06/02 allopurinol 80150854780 Jose China SUCRALFATE 1 GM TABS 06/02 sucralfate 49295452645 Jose Sherman HYDROCODONE-ACETAMI NOPHEN 5-325 MG TABS 06/02 hydrocodone-acetami nophen 15609568854 Jose China METOPROLOL SUCCINATE ER 50 MG [id number] 06/02 metoprolol succinate 65841537467 Jose Sherman TIZANIDINE HCL 4 MG TABS 06/02 tizanidine 64549332281 Jose Sherman GABAPENTIN 600 MG TABS 06/02 gabapentin 72332086959 Jose China CLINDAMYCIN HCL 300 MG CAPS 08/07 clindamycin hcl 01235824363 Jose China Medications Administered No information available. Allergies, Adverse Reactions, Alerts Allergy Name Reaction Description Start Date Severity Statu s Provider IODINE Mild Active Jose Ca rtwright ADHESIVE TAPE Mild Active Travi s China Results Date Name Value Unit Range Flag Description Lab Report: CBC WITH AUTO DI FFERENTIAL ZZ-GE-unk 0.0 /100 WBC 0.0-0.2 GE use only - fo r [employer] import when terms are not otherwise specified IMMATUREGRAN 0.01 10*3/MM3 0.00-0.05 Immature granulocytes [#/volume] in Blood BASO# 0.04 10*3/mm3 0.00-0.20 Basophils [#/vol ume] in Blood EOS ABSLT 0.88 10*3/uL 0.00-0.40 H Eosinophi ls [#/volume] in Blood MONOSCT AUTO 0.31 10*3/uL 0.10-0.90 Monocy gabe [#/volume] in Blood by Automated count LYMPHCT AUTO 0.80 10*3/mm3 0.70-3.10 Lymph ocytes [#/volume] in Blood by Automated count ABS NEUTROPH 2.59 10*3/uL 1.70-7.00 Neutro phils [#/volume] in Blood IMM GRANU % 0.2 % 0.0-0.5 Immature granulocytes/100 leukocytes in Blood % EOS AUTO 19.0 % 0.3-6.2 H Eosinophil s/100 leukocytes in Blood by Automated count MONOCYTE % 6.7 % 5.0-12.0 Monocytes /100 leukocytes in Blood by Automated count LYMPHOCY BF 17.3 % 19.6-45.3 L lymphoc ytes as percent of body fluid leukocytes NEUTROP BF 55.9 % 42.7-76.0 Neutroph ils/100 leukocytes in Body fluid PLATELETS 138 10*3/mm3 140-450 L Platelets [#/volume] in Blood by Automated count RDW_ 15.5 12.3-15.4 H RDW, no uni ts MCHC 31.5 G/DL 31.5-35.7 MCHC [Mass/ volume] by Automated count MCH 26.0 pg 26.6-33.0 L MCH [Entiti c mass] by Automated count MCV 82.4 fL 79.0-97.0 MCV [Entiti c volume] by Automated count HCT 36.5 % 37.5-51.0 L Hematocrit [Volume Fraction] of Blood by Automated count HGB 11.5 g/dL 13.0-17.7 L Hemoglobin [Mass/volume] in Blood RBC 4.43 10*6/mm3 4.14-5.80 Erythrocyt es [#/volume] in Blood by Automated count WBC 4.63 10*3/mm3 3.40-10.8 0 Leukocytes [#/volume] in Blood by Automated count Lab Report: SEDIMENTATION RA TE ESR 8 mm/h 0-20 Erythrocyte sedimentation rate by Westergren method Lab Report: C-REACTIVE PROTE IN CRP 2.43 mg/dL 0.00-0.50 H C reactive protein [Mass/volume] in Serum or Plasma Lab Report: CK CPK 82 U/L 20-200 Creatine ewelina se [Enzymatic activity/volume] in Serum or Plasma Lab Report: COMPREHENSIVE ME TABOLIC PANEL ANIONGAP 7.0 mmol/L 5.0-15.0 anion gap, serum BUN/CREAT 12.1 7.0-25.0 Urea nitrogen/Creatinine [Mass Ratio] in Serum or Plasma BILI TOTAL 0.7 mg/dL 0.0-1.2 Bilirubin. total [Mass/volume] in Serum or Plasma ALK PHOS 109 U/L 39-117 Alkaline gabriel sphatase [Enzymatic activity/volume] in Blood SGOT (AST) 15 U/L 1-40 Aspartate aminotransferase [Enzymatic activity/volume] in Serum or Plasma SGPT (ALT) 9 U/L 1-41 Alanine aminotransferase [Enzymatic activity/volume] in Serum or Plasma ALBUMIN 3.60 g/dL 3.50-5.20 Albumin [Mass/volume] in Serum or Plasma PROTEIN, TOT 6.5 g/dL 6.0-8.5 Protein [Mass/volume] in Serum or Plasma CALCIUM 8.9 mg/dL 8.6-10.5 Calcium [Moles/volume] in Serum or Plasma CO2 30.0 mmol/L 22.0-29.0 H Carbon diox ynes, total [Moles/volume] in Venous blood CHLORIDE 97 mmol/L 98-107 L Chloride [Moles/volume] in Serum or Plasma POTASSIUM 4.2 mmol/L 3.5-5.2 Potassium [Moles/volume] in Serum or Plasma SODIUM 134 mmol/L 136-145 L Sodium [Moles/volume] in Serum or Plasma CREATININE 1.41 mg/dL 0.76-1.27 H Creatini ne [Mass/volume] in Serum or Plasma BUN 17 mg/dL 8-23 Urea nitrogen [Mass/volume] in Serum or Plasma GLUCOSE SER 252 mg/dL 65-99 H Glucose [Mass/volume] in Serum or Plasma Office Visit: 7 MEDS REVIEW Done Documenta tion of current medications (procedure) ORALTOBACUSE Never Tobacco smoking status SMOK STATUS Never smoker Tobacco smoking status Plan of Care Type Date Detail Pending order Continue IV anti biotics Pending order PICC Removal Pending order STAT Labs Pending order Stat Weekly Labs Pending order PICC Line Insert ion Procedures Code Procedure Name Date Entry Date CPT-ca Continue IV antibiotics 2021 CPT-PICREM PICC Removal CPT-sl STAT Labs CPT- stat weekly Stat Weekly Labs CPT-05974 PICC Line Insertion Vital Signs Date Name Value Unit Description BMI (Body Mass Index) 29.35 kg/m2 Bod y Mass Index (Ratio) Body Temperature 97.1 [degF] temperat ure E&M BP Diastolic 64 mm[Hg] blood pressu re, diastolic BP Systolic 118 mm[Hg] blood pressur e, systolic Heart Rate 72 /min pulse rate Height 70 [in_us] height E&M Respiratory Rate 16 /min respirat ory rate E&M Weight Measured 204.6 [lb_av] weight E& M Weight Measured 204.6 [lb_av] weight E& M Immunizations No information available. 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
--- OUTSIDE RECORDS SUMMARY | 2024-08-13 12:46 | XMS_ITS | Encounter Summary ---
Author Organization [facility] Address [address] [place] [address] Support Name Relationship Address Phone Stepan Gold Personal Relationship [address] [place] [address] Mi Asif Personal Relationship Unknown [phone] Rosalind Andersonill Personal Relationship Unknown [phone] Vivi Ward Personal Relationship Unknown Care Team Providers Care E/M Engineer Name Role Phone Willi Templeton MD Unavailable María Andre MD Unavailable Selene Rodriguez MATERIAL ASSISTANT Unavailable Mariah Flowers MATERIAL ASSISTANT Unavailable Neyda Beltran MD Unavailable Ryanne Roblero MD Unavailable Unavailable Mi Martin MATERIAL ASSISTANT Unavailable [phone] Elijah Serra DO Primary Care Provider Reason for Visit * Reason Onset Date Comments Medications Refill 07/12/2024 Encounter Details Date Type Department Care Team (Late st Contact Info) Description 07/12/2024 Refill [facility] Endocrinology [place] [address] [place], [facility], [address] [place] [address] Micha Washington MD [address] [place] [id number] TSH elevation Social History Tobacco Use Types Packs/Day Years [...] materials from doctor or pharmacy Never 04/29/2023 [facility] Utilities Answer Date Recorded In the past 12 months has e [employer], gas, oil, or water [employer] threatened to shut off services in your [...] any time in the past 12 m [facility], were you homeless or living in a snf (including now)? No 04/02/2024 Sex and Gender Information Value Date Recorded Sex Assigned at Not on file Legal Sex Male 9:48 PM EST Gender Identity Not on file Sexual Orientation Not on file documented as of this encounter Miscellaneous Notes * Telephone Encounter - Cecilia Thorne LPN - 07/12/2024 12:54 PM EDT Pended to provider. * Telephone Encounter - Radha Bermeo - 07/12/2024 11:49 AM EDT Patient needs a refill of Levothyroxine 150mcg -90 day supply sent to [facility]. thanks documented in this encounter Plan of Treatment Upcoming Encounters Date Type Department Care Team (Late st Contact Info) Description 11/06/2024 11:00 AM EDT Office Visit [facility] Endocrinology [address], [facility], [address] [place] [address] Micha Washington MD [address] [facility] [address] [place] [address] Molly Figueroa PA-C [address] [place] [address] [place] [address] documented as of this encounter Visit Diagnoses Diagnosis TSH elevation documented in this encounter Care Teams E/M Engineer Relationship Specialty Start Date End Date Elijah Serra DO [address] [place] [address] PCP - General Family Medicine 07/21/23 Willi Templeton MD [address] [place] [address] Gastroenterology 02/25/16 María Andre MD [address] [place] [facility] [place] [address] Gastroenterology 03/08/16 Selene Rodriguez APRN [address] [place] [address] [address] [place], [place] [id number] Gastroenterology 08/23/16 Mariah Flowers APRN [address] [place] [address] Nurse Practitioner 08/26/16 Neyda Beltran MD [address] [place] [address] Nephrology 03/17/17 Ryanne Roblero MD [address] [place] [address] Rheumatology 03/01/18 Mi Martin APRN [address] [facility] [address] [place] [address] Nurse Practitioner Nurse Practitioner 04/16/19 documented as of this encounter
--- OUTSIDE RECORDS SUMMARY | 2024-08-13 12:46 | XMS_ITS | Data Portability ---
Author Organization [facility] Address [address] [place] [address] Assessment No assessment recorded. Plan of Treatment Reminders Order Date Submit Date Provider Last Modified By Organization Details Last Modified Time Details Appointments None recorded. Lab None recorded. Referral None recorded. Procedures None recorded. Surgeries None recorded. Imaging None recorded. Medication Orders clindamycin HCl 300 mg capsule [address], [address], 4 09:54:57 hydroxyzine HCl 25 mg tablet [address], [address], 4 09:54:57 hydroxyzine HCl 25 mg tablet [address], [address], 4 09:01:07 clindamycin HCl 300 mg capsule [address], [address], 4 09:01:07 Patient TargetsNo targets recorded. Patient Instructions Encounter Date Encounter Id Patient Instructions Last Modified By Organization Details Last Modified Time 12/27/2023 [id number] body mass index: care instructions [email or web address] Not available 12/27/2023 09:01:06 learning about healthy weight [email or web address] Not available 12/27/2023 09:01:06 Reason for Referral None Reported. Problems Name Problem SNOMED Code Status Onset Date Resolution Date Notes Provider Name and Address Organization Details Recorded Time Type 1 diabetes mellitus 03846599 Active 2023 Sabrina Corrine null, [place] - [facility] 4 08:26:31 Chronic rheumatic arthritis 2426489864 Active 2023 Sabrina Corrine null, [place] - [facility] 4 08:26:56 Gout 59417488 Active 2023 Sabrina Corrine null, [place] - [facility] 4 08:27:04 Coronary arteriosclero sis 14639947 Active 2023 Sabrina Corrine null, [place] - [facility] 4 08:27:30 Hypertensive disorder 31259814 Active 2023 Sabrina Corrine null, [place] - [facility] 4 08:27:46 Erosive osteoarthrosi s 625050300 Active 2023 Sabrina Corrine null, [place] - [facility] 4 08:49:07 Environmental allergy 528161490 Active 2023 Sabrina Corrine null, [place] - [facility] 4 08:50:34 Hypercholeste rolemia 27815037 Active 2023 Sabrina Corrine [place], [place] - [facility] 4 08:50:50 Benign prostatic hyperplasia 825065551 Active 2023 Sabrina Corrine null, [place] - [facility] 4 08:51:34 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 Procedures Surgical History Date Name Laterality Status Provider Name and Address Organization Details Recorded Time Hip Replacement completed Sabrina Corrine [place] - [facility] 12/27/2023 08:29:44 Thyroid Surgery completed Sabrina Corrine [place] - [facility] 12/27/2023 08:30:13 Knee Surgery completed Sabrina Castle [place] - [facility] 12/27/2023 08:31:03 Imaging Results None recorded. Procedure Notes None recorded. Medical Equipment None Reported. Allergies Allergen ID Allergen Name Allergen Category Reaction Reaction Severity Criticality Documentation Date Start Date Code Code System Note Provider Name and Address Organization Details Recorded Time 477685 iodine medicatio n swelling Not available Not available 12/27/2023 5933 RxNorm throa t swell ing Sabrina Castle null, [place] - [facility] 4 08:18:04 492995 adhesive tape environme nt,medica tion Not available Not available Not available 12/27/2023 [address]96[address] UNK blist ers Sabrina Corrine null, [place] - [facility] 4 08:18:26 Medications Name Sig Start Date Stop Date Status Note LastModified by Organization Details LastModified Time amoxicillin 500 mg capsule TAKE 1 CAPSULE BY MOUTH THREE TIMES DAILY FOR 7 DAYS 12/26 completed Not Available Not Available Not Available furosemide 40 mg tablet Take 1 tablet every day by oral route for 90 days. active Not Available Not Available No t Available clindamycin HCl 300 mg capsule Take 1 capsule 3 times a day by oral route after meal(s) for 3 days. 2023 active Not Available Not Available Not Avai lable azithromyci n 250 mg tablet 12/26 completed Not Available Not Available Not Available tizanidine 4 mg tablet 12/26 completed Not Available Not Available Not Available hydrocodone 5 mg-acetamin ophen 325 mg tablet TAKE 1 TABLET BY MOUTH EVERY 8 HOURS active Not Available Not Available No t Available donepezil 10 mg tablet Take 1 tablet every day by oral route for 90 days. active Not Available Not Available No t Available sucralfate 1 gram tablet Take 1 tablet by oral route for 90 days. active Not Available Not Available No t Available ondansetron HCl 4 mg tablet TAKE 2 TABLETS BY MOUTH TWICE DAILY NEEDED active Not Available Not Available No t Available betamethaso ne, augmented 0.05 % topical cream APPLY THIN LAYER TOPICALLY TO THE AFFECTED AREA TWICE DAILY NEEDED. DO NOT EXCEED 50 GM PER WEEK active Not Available Not Available No t Available Zyrtec 10 mg tablet Take 1 tablet every day by oral route. active Not Available Not Available No t Available clopidogrel 75 mg tablet Take 1 tablet every day by oral route for 90 days. active Not Available Not Available No t Available valacyclovi r 500 mg tablet TAKE 1 TABLET BY MOUTH EVERY DAY active Not Available Not Available No t Available sulfamethox azole 800 mg-trimetho prim 160 mg tablet TAKE 1 TABLET BY MOUTH TWICE DAILY 12/26 completed Not Available Not Available Not Available aspirin 81 mg tablet,layton yed release Take 1 tablet every day by oral route. active Not Available Not Available No t Available triamcinolo ne acetonide 0.1 % topical cream 12/26 completed Not Available Not Available Not Available amoxicillin 875 mg tablet 12/26 completed Not Available Not Available Not Available tamsulosin 0.4 mg capsule Take 2 capsules every day by oral route for 90 days. active Not Available Not Available No t Available gabapentin 800 mg tablet Take 1 tablet 3 times a day by oral route. active Not Available Not Available No t Available furosemide 80 mg tablet 12/26 completed Not Available Not Available Not Available cephalexin 500 mg capsule TAKE 1 CAPSULE BY MOUTH 4 TIMES DAILY 12/26 completed Not Available Not Available Not Available pantoprazol e 40 mg tablet,layton yed release 12/26 completed Not Available Not Available Not Available erythromyci n 5 mg/gram (0.5 %) eye ointment active Not Available Not Available Not Available trazodone 150 mg tablet Take 1 tablet every day by oral route at bedtime for 90 days. active Not Available Not Available No t Available levothyroxi ne 125 mcg tablet 12/26 completed Not Available Not Available Not Available hydroxyzine HCl 25 mg tablet Take 1 tablet every day by oral route at bedtime for 90 days. 2023 active Not Available Not Available Not Avai lable allopurinol 300 mg tablet Take 1 tablet every day by oral route in the evening for 90 days. active Not Available Not Available No t Available mupirocin 2 % topical ointment APPLY OINTMENT TOPICALLY THREE TIMES DAILY FOR 7 DAYS 12/26 completed Not Available Not Available Not Available metoprolol succinate ER 25 mg tablet,exte nded release 24 hr Take 0.5 tablets every day by oral route for 90 days. active Not Available Not Available No t Available hydroxychlo roquine 200 mg tablet active Not Available Not Available No t Available colchicine 0.6 mg tablet Take 1 tablet every day by oral route in the evening for 90 days. active Not Available Not Available No t Available ondansetron 4 mg disintegrat ing tablet DISSOLVE 1 TABLET ON THE TONGUE EVERY 6 HOURS NEEDED FOR NAUSEA OR VOMITING 12/26 completed Not Available Not Available Not Available cefdinir 300 mg capsule 12/26 completed Not Available Not Available Not Available fluticasone propionate 50 mcg/actuati on nasal spray,suspe nsion active Not Available Not Available Not Available lisinopril 2.5 mg tablet Take 1 tablet every day by oral route for 90 days. active Not Available Not Available No t Available colestipol 1 gram tablet TAKE 1 TABLET BY MOUTH TWICE DAILY FOR DIARRHEA active Not Available Not Available No t Available doxycycline hyclate 100 mg tablet TAKE 1 TABLET BY MOUTH TWICE DAILY 12/26 completed Not Available Not Available Not Available loratadine 10 mg tablet TAKE 1 TABLET BY MOUTH DAILY active Not Available Not Available No t Available levothyroxi ne 112 mcg tablet TAKE 1 TABLET BY MOUTH ONCE DAILY active Not Available Not Available No t Available amoxicillin 875 mg-potassiu m clavulanate 125 mg tablet TAKE 1 TABLET BY MOUTH TWICE DAILY FOR 10 DAYS 12/26 completed Not Available Not Available Not Available neomycin-po lymyxin-hyd rocort 3.5 mg-10,000 unit/mL-1 % ear drops,susp INSTILL 4 DROPS INTO BOTH EARS 4 TIMES A DAY FOR 7 DAYS 12/26 completed Not Available Not Available Not Available Novolog FlexPen U-100 Insulin aspart 100 unit/mL (3 mL) subcutaneou s ADMINISTE R 2 TO 16 UNITS UNDER THE SKIN 3 TIMES A DAY WITH MEALS. active Not Available Not Available No t Available rosuvastati n 20 mg tablet Take 1 tablet every day by oral route in the evening for 90 days. active Not Available Not Available No t Available potassium chloride ER 10 mEq tablet,exte nded release(par t/cryst) 12/26 completed Not Available Not Available Not Available duloxetine 60 mg capsule,del ayed release Take 1 capsule twice a day by oral route for 90 days. active Not Available Not Available No t Available tizanidine 4 mg capsule Take 1 capsule every 6 hours by oral route. active Not Available Not Available No t Available Lantus Solostar U-100 Insulin 100 unit/mL (3 mL) subcutaneou s pen INJECT 38 UNITS ONCE DAILY. INCREASE BY 2 UNITS EVERY 3-5 DAYS TO REACH FASTING BLOOD GLUCOSE OF 90-130. MAX OF 60 UNITS. PRIME WITH 2 UNITS DAILY. 12/26 completed Not Available Not Available Not Available diclofenac 1 % topical gel active Not Available Not Available Not Available BD Ultra-Fine Martine Pen Needle 32 gauge x USE 1 NEEDLE FOR INSULIN 4 TIMES DAILY WITH MEALS AND AT BEDTIME active Not Available Not Available No t Available guaifenesin ER 600 mg tablet, extended release 12 hr TAKE 1 TABLET BY MOUTH TWICE DAILY NEEDED FOR COUGH active Not Available Not Available No t Available Toujeo SoloStar U-300 Insulin 300 unit/mL (1.5 mL) subcutaneou s pen ADMINISTE R 30 UNITS UNDER THE SKIN DAILY active Not Available Not Available No t Available Droplet Pen Needle 31 gauge x 5/16 12/26 completed Not Available Not Available Not Available Toujeo Max U-300 SoloStar 300 unit/mL (3 mL) subcutaneou s insulin pen 12/26 completed Not Available Not Available Not Available DropSafe Alcohol Prep Pads 12/26 completed Not Available Not Available Not Available Vitals Date Recorded Body height Body mass index (BMI) Body weight Body temperature Heart rate Oxygen saturation Oxygen saturation in Arterial blood by Pulse oximetry Systolic And Diastolic Provider Name and Address Organization Details Last Updated DateTime 4 175.26 cm 28.8 kg/m2 58254.5 1 g 98.4 [degF] 72 /min 95 % 95 % 110/66 mm[Hg] Sabrina Castle [place] - [facility] 4 08:16:38 Date Recorded Body height Heart rate Oxygen saturation Oxygen saturation in Arterial blood by Pulse oximetry Respiratory rate Body temperature Systolic And Diastolic Provider Name and Address Organization Details Last Updated DateTime 4 175.26 cm 71 /min 95 % 95 % 16 /min 98.6 [degF] 140/70 mm[Hg] Marisa haile [place] - [facility] 4 09:22:25 Social History Question Answer Notes LastModified by Organizat ion Details LastModified Time Tobacco Smoking Status Never Smoker Sabrina Corrine null, [place] - [facility] 12/27/2023 08:29:08 What Was The Date Of Your Most Recent Tobacco Screening? 12/27/2023 [email or web address] Information not available 12/27/2023 Sex: Unknown Functional Status None recorded. Mental Status None recorded. Family History Nothing Reported. Medical History No medical history recorded. Immunizations Vaccine Type Date Status Note Provider Nam e and Address Organization Details Recorded Time Tdap 04/26/2019 completed Marisa Tai null, [place] - [facility] 01/03/2024 09:22:50 Respiratory syncytial virus (RSV) MAB, unspecified 01/24/2023 completed Sabrina Corrine [place], [place] - [facility] 12/27/2023 09:10:02 zoster recombinant 09/15/2021 completed Marisa Tai null, [place] - [facility] 01/03/2024 09:22:50 zoster recombinant 07/15/2021 completed Marisa Tai [place], [place] - [facility] 01/03/2024 09:22:50 Influenza, high-dose, quadrivalent, PF 12/01/2022 completed Marisa [place], [place] - [facility] 01/03/2024 09:22:50 SARS-COV-2 (COVID-19) vaccine, UNSPECIFIED 04/14/2020 completed Marisa [place], [place] - [facility] 01/03/2024 09:22:50 SARS-COV-2 (COVID-19) vaccine, UNSPECIFIED 05/09/2020 completed Marisa [place], [place] [facility] 01/03/2024 09:22:50 SARS-COV-2 (COVID-19) vaccine, UNSPECIFIED 11/11/2020 completed Marisa [place] [facility] 01/03/2024 09:22:50 SARS-COV-2 (COVID-19) vaccine, UNSPECIFIED 01/24/2023 completed Marisa Tai null, [place] - [facility] 01/03/2024 09:22:50 Past Encounters Encounter ID Performer Location Encounter Start Date Encounter Closed Date Diagnosis/Indication Diagnosis SNOMED-CT Code Diagnosis ICD10 Code Diagnosis Note [id number] Jose Vega MD [facility] [address] [place] [id number] 12/27/2023 08:00:56 12/27/2023 09:14:51 Body mass index 25-29 - overweight 669303902 Z68.28 Overweight 737532964 E66 .3 Otalgia of right ear 124 1457248 H92.01 Congestion of nasal sinus 22885281 R09.81 [id number] Jose Vega MD [place] [address] [facility]. [place] [id number] 01/03/2024 09:06:47 01/03/2024 09:55:24 Otalgia of right ear 1881923104 H92.01 Congestion of nasal sinus 89314005 R09.81 Health Concerns Section Related Observation LastModified by Organization Detai ls LastModified Time None Recorded Concern Status LastModified by Organization Details LastModified Time None Recorded Advance Directives Directive None Recorded Payers Insurance Date Sequence Insurance Name Policy Number Policy Coleman Covered Member ID Coleman Member ID Guarantor Name 02/16/2024 2 [employer] (MEDICARE SUPPLEMENT) Obdulio Gold [id number] Obdulio Gold 12/27/2023 1 [place] Obdulio Gold [id number] Obdulio Gold 02/16/2024 [employer] [place] - [facility] (MEDICARE) Obdulio Gold [id number] Obdulio Gold Notes Date Note Type Note Provider Name and Address Organization Details Recorded Time 12/27/2023 text/html Pt is a new patient but has no paperwork or prior records and does have an acute complaint today of right ear pain, worsening over the last week. Pt endorses some blood spotting on qtips with cleaning ears over the last 2 days. Pt denies hearing changes or dizziness at this time; Pt denies fevers and chills, wheezing, SoB, arthralgias, diarrhea, rashes, lymphadenopathy. Pt is not a smoker. States did get Flu and Covid vaccs; endorses multiple sick contacts. Jose Vega MD [address], [place], [address], [place] - [facility] 12/27/2023 12:42:04 01/03/2024 text/html Pt presents for 3-5 days of worsening right ear pain and cough (mostly dry, occasionally productive of overton sputum, no hemoptysis), associated congestion and sore throat. Pt endorses subjective fevers and chills, intermittent wheezing and SoB but denies arthralgias, diarrhea, rashes, lymphadenopathy. Pt is not a smoker. States did get Flu and Covid vaccs; endorses multiple sick contacts. Jose Vega MD [address], [place], [address], [facility] - [facility] 01/09/2024 11:36:24
--- OUTSIDE RECORDS SUMMARY | 2024-08-13 12:46 | XMS_ITS | Encounter Summary ---
Author Organization [facility] Address [address] [place] [address] Support Name Relationship Address Phone Stepan Gold Personal Relationship [address] [place] [address] Mi Asif Personal Relationship Unknown Rosalind Andersonill Personal Relationship Unknown Vivi Ward Personal Relationship Unknown Care Team Providers Care Professor Of Business Administration Name Role Phone Willi Templeton MD Unavailable [phone] María Andre MD Unavailable [phone] Selene Rodriguez GEOTHERMAL PLANT MANAGER Unavailable Mariah Flowers GEOTHERMAL PLANT MANAGER Unavailable [phone] Neyda Beltran MD Unavailable Ryanne Roblero MD Unavailable Unavailable Mi Martin GEOTHERMAL PLANT MANAGER Unavailable [phone] Elijah Serra DO Primary Care Provider [phone] Encounter Details Date Type Department Care Team (Latest Contact Info) Description 08/04/2024 Travel Social History Tobacco Use Types Packs/Day [...] materials from doctor or pharmacy Never 04/29/2023 [facility] Utilities Answer Date Recorded In the [...] in the past 12 m [facility], were you homeless or living in [...] Office Visit [facility] [address] [place] [address], [facility] [address] [place] [id number] Micha Washington MD [address] [place] [address] [address] [place], [place] [id number] Molly Figueroa PA-C [address] [place] [phone] documented as of this encounter Visit Diagnoses Not on filedocumented in this encounter Care Teams Professor Of Business Administration Relationship Specialty Start Date End Date Elijah Serra DO [address] [place] [id number] PCP - General Family Medicine 07/21/23 Willi Templeton MD [address] [place] [address] [address] [place] [address] Gastroenterology 02/25/16 María Andre MD [address] [place] [address] [address] [place] [address] Gastroenterology 03/08/16 Selene Rodriguez APRN [address] [place] [address] [address] [place] [address] Gastroenterology 08/23/16 Mariah Flowers APRN [address] [place] [address] Nurse Practitioner 08/26/16 Neyda Beltran MD [address] [facility] [place] [address] Nephrology 03/17/17 Ryanne Roblero MD [address] [facility] [place] [address] Rheumatology 03/01/18 Mi Martin APRN [address] [facility] [address] [place] [address] Nurse Practitioner Nurse Practitioner 04/16/19 documented as of this encounter
--- OUTSIDE RECORDS SUMMARY | 2024-08-13 12:46 | XMS_ITS | Encounter Summary ---
Author Organization Healthcare Address [address] [place] [id number] Care Team Providers Care Seamer Panty Hose Name Role Phone Ponce Elijah Taylor DO Primary Care Provider [phone] Encounter Details Date Type Department Care Team (Latest Contact Info) Description 07/18/2024 Travel Social History Tobacco Use Types Packs/Day [...] and Family Not on file 07/16/2024 Attends [employer] Not on file 07/16 Active Member [...] any time in the past 12 m [facility], were you homeless or living in a fpc (including now)? No 07/16/2024 Utilities Answer Date [...] as of this encounter Plan of Treatment Not on file documented as of this encounter Visit Diagnoses Not on filedocumented in this encounter Additional Health Concerns Infection Onset Date Last Indicated Resolved Time MRSA Comment:Added from external infection. Source: [facility]. 02/22/2017 07/15/2024 Assessment Noted Time A Body Mass Index follow-up plan has been documented for the patient 07/20/2024 1:44 PM EDT documented as of this encounter Care Teams Seamer Panty Hose Relationship Specialty Start Date End Date Elijah Serra DO [address] [place] [address] PCP - General Checkerer Hand 12/01/22 documented as of this encounter
--- OUTSIDE RECORDS SUMMARY | 2024-08-13 12:46 | XMS_ITS | Encounter Summary ---
Author Organization [facility] Address [address] [place] [address] Support Name Relationship Address Phone Stepan Gold Personal Relationship [address] [place] [address] Mi Asif Personal Relationship Unknown Rosalind Andersonill Personal Relationship Unknown Vivi Ward Personal Relationship Unknown Care Team Providers Care Quotation Checker Name Role Phone Willi Templeton MD Unavailable [phone] María Andre MD Unavailable [phone] Selene Rodriguez SUPERVISOR LABOR GANG Unavailable Mariah Flowers SUPERVISOR LABOR GANG Unavailable [phone] Neyda Beltran MD Unavailable Ryanne Roblero MD Unavailable Unavailable Mi Martin SUPERVISOR LABOR GANG Unavailable [phone] Elijah Serra DO Primary Care Provider [phone] Encounter Details Date Type Department Care Team (Latest Contact Info) Description 07/15/2024 Travel Social History Tobacco Use Types Packs/Day [...] materials from doctor or pharmacy Never 04/29/2023 [facility] Utilities Answer Date Recorded In the past [...] any time in the past 12 m [facility], were you homeless or [...] 11/06/2024 11:00 AM EDT Office Visit [facility] [address] [place] [address], [facility] [address] [place] [phone] Micha Washington MD [address] [place] [address] [address] [place], [place] [id number] Molly Figueroa PA-C [address] [place] [id number] documented as of this encounter Visit Diagnoses Not on filedocumented in this encounter Care Teams Quotation Checker Relationship Specialty Start Date End Date Elijah Serra DO [address] [id number] PCP - General Family Medicine 07/21/23 Willi Templeton MD [address] [place] [address] 430 [place] [address] Gastroenterology 02/25/16 María Andre MD [address] [place] [address] 430 [place] [address] Gastroenterology 03/08/16 Selene Rodriguez APRN [address] [place] [address] 203 [place] [address] Gastroenterology 08/23/16 Mariah Flowers APRN [address] [place] [address] Nurse Practitioner 08/26/16 Neyda Beltran MD [address] [facility] [place] [address] Nephrology 03/17/17 Ryanne Roblero MD [address] [facility] [place] [address] Rheumatology 03/01/18 Mi Martin APRN [address] [place] [address] Nurse Practitioner Nurse Practitioner 04/16/19 documented as of this encounter
--- OUTSIDE RECORDS SUMMARY | 2024-08-13 12:47 | XMS_ITS | Encounter Summary ---
Author Organization [facility] Address [address] [place] [address] Support Name Relationship Address Phone Stepan Gold Personal Relationship [address] [place] [address] Mi Gold Personal Relationship Unknown Rosalind Mai Personal Relationship Unknown + [phone] Vivi Ward Personal Relationship Unknown [phone] Care Team Providers Care Is Project Manager Name Role Phone Yehuda Barger MD Primary Care Provider [phone] Milton Crum DO Primary Care Provider Miky Benton MD Primary Care Provider [phone] Provider, Historical Unavailable Unavailable Willi Templeton MD Unavailable [phone] María Andre MD Unavailable [phone] Selene Rodriguez METERMAN Unavailable +[phone] Mariah Flowers METERMAN Unavailable [phone] Neyda Beltran MD Unavailable [phone] Ryanne Roblero MD Unavailable Unavailable Mi Martin APRN Unavailable [phone] Elijah Serra DO Primary Care Provider [phone] Micha Washington MD Unavailable Encounter Details Date Type Department Care Team (Late st Contact Info) Description 01/06/2002 Historical Encounter Global Artis Alonso MD [facility] Emergency Dept. [address] 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 02/24/2017 02/22/2017 02/22/2017 04/02/2024 9:[address] documented as of this encounter Care Teams Is Project Manager Relationship Specialty Start Date End Date Yehuda Barger MD [address] [place] [address] [address] [place] [address] PCP - General 02/16/09 04/13/23 Milton Crum DO [address] [place] [address] [address] [place] [address] PCP - General 01/08/09 02/15/09 Miky Louis MD [address] [place] [address] PCP - General 12/26/07 01/07/09 Elijah Serra DO 100 [place] [address] PCP - General Family Medicine 07/21/23 Provider, Historical 02/16/16 08/25/16 Willi Templeton MD [address] [place] [address] Gastroenterology 02/25/16 Maraí Andre MD [address] [place] [address] [address] [place] [address] Gastroenterology 03/08/16 Selene Rodriguez APRN [address] [place] [address] 203 [place] [address] Gastroenterology 08/23/16 Mariah Flowers APRN [address] [place] [address] [address] [place] [address] Nurse Practitioner 08/26/16 Neyda Beltran MD [address] [address] [place] [address] Nephrology 03/17/17 Ryanne Roblero MD [address] [facility] [address] [place] [address] Rheumatology 03/01/18 Mi Martin APRN [address] [place] [address] 102 [place] [address] Nurse Practitioner Nurse Practitioner 04/16/19 Micha Washington MD [address] [place] [address] [address] [place], [place] [phone] Endocrinology 08/06/24 08/06/24 documented as of this encounter
--- OUTSIDE RECORDS SUMMARY | 2024-08-13 12:47 | XMS_ITS | Encounter Summary ---
Author Organization [facility] Address [address] [id number] Care Team Providers Care Store Loss Prevention Manager Name Role Phone Ponce Elijah Taylor DO Primary Care Provider [phone] Encounter Details Date Type Department Care Team [...] and Family Not on file 07/16/2024 Attends Orthodox Services Not on file 07/16 Active Member [...] any time in the past 12 m [facility], were you homeless or living in a [...] on file documented as of this encounter Functional Status * Calculated C-SSRS Risk Score (Lifetime/Recent) Answer Date of Assessment Author No Risk Indicated 07/15/2024 5:16 PM EDT Ruth Ann Hua RN * Question Answer Date of Assessment Author 1. Wish to be (Past 1 Month) No 025 5:16 PM EDT Ruth Ann Hua RN 2. Non-Specific Active Suici halie Thoughts (Past 1 Month) No 07/15/2024 5:16 PM EDT Nikia Hua RN 6. Suicidal Behavior (Lifetime) No 5 5:16 PM EDT Ruth Ann Hua RN documented as of this encounter Plan of Treatment Not on file documented as of this encounter Visit Diagnoses Not on filedocumented in this encounter Additional Health Concerns Infection Onset Date Last Indicated Resolved Time MRSA Comment:Added from external infection. Source: [facility]. 02/22/2017 07/15/2024 Respiratory Rule-Out 07/15/2024 07/15/2024 025 10:50 PM EDT Assessment Noted Time A Body Mass Index follow-up plan has been documented for the patient 07/20/2024 1:44 PM EDT documented as of this encounter Care Teams Store Loss Prevention Manager Relationship Specialty Start Date End Date Elijah Serra DO [address] [place] [address] PCP - General Dry Goods Clerk 12/01/22 documented as of this encounter
--- OUTSIDE RECORDS SUMMARY | 2024-08-13 12:47 | XMS_ITS | Encounter Summary ---
Author Organization [facility] Address [address] [place] [address] Support Name Relationship Address Phone Stepan Gold Personal Relationship [address] [place] [address] Mi Gold Personal Relationship Unknown Rosalind Mai Personal Relationship Unknown + [phone] Vivi Ward Personal Relationship Unknown [phone] Care Team Providers Care Check Writer Salesperson Name Role Phone Yehuda Barger MD Primary Care Provider [phone] Milton Crum DO Primary Care Provider Miky Benton MD Primary Care Provider [phone] Provider, Historical Unavailable Unavailable Willi Templeton MD Unavailable [phone] María Andre MD Unavailable [phone] Selene Rodriguez RETORT SETTER Unavailable Mariah Flowers RETORT SETTER Unavailable [phone] Neyda Beltran MD Unavailable [phone] Ryanne Roblero MD Unavailable Unavailable Mi Martin APRN Unavailable [phone] Elijah Serra DO Primary Care Provider [phone] Micha Washington MD Unavailable Encounter Details Date Type Department Care Team (Late st Contact Info) Description 09/17/1997 Historical Encounter Global Yehuda Barger MD [address] [place] [address] Social History Tobacco Use Types Packs/Day Years [...] Description 11/06/2024 11:00 AM EDT Office Visit [facility] Endocrinology [place] [address] [place], [facility] [place], [address] [place] [phone] Micha Washington MD [address] [place] [address] [place] [address] Molly Figueroa PA-C [address] [place] [address] [place] [address] documented as of this encounter Visit Diagnoses Not on filedocumented in this encounter Additional Health Concerns Infection Onset Date Last Indicated Resolved Time 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 02/24/2017 02/22/2017 02/22/2017 04/02/2024 9:[address] documented as of this encounter Care Teams Check Writer Salesperson Relationship Specialty Start Date End Date Yehuda Barger MD [address] [place] [address] PCP - General 02/16/09 04/13/23 Milton Crum DO [address] [place] [address] PCP - General 01/08/09 02/15/09 Miky Louis MD [address] [place] [address] PCP - General 12/26/07 01/07/09 Elijah Serra DO 100 [place] [address] PCP - General Family Medicine 07/21/23 Provider, Historical 02/16/16 08/25/16 Willi Templeton MD [address] [facility] [address] [place] [address] Gastroenterology 02/25/16 María Andre MD [address] [place] [address] [address] [place] [address] Gastroenterology 03/08/16 Selene Rodriguez APRN [address] [place] [address] Gastroenterology 08/23/16 Mariah Flowers APRN [address] [place] [address] 510 [place] [address] Nurse Practitioner 08/26/16 Neyda Beltran MD [address] [address] [place] [address] Nephrology 03/17/17 Ryanne Roblero MD [address] [address] [place] [address] Rheumatology 03/01/18 Mi Martin APRN [address] [place] [address] [address] [place] [address] Nurse Practitioner Nurse Practitioner 04/16/19 Micha Washington MD [address] [place] [address] [address] [place] [address] Endocrinology 08/06/24 08/06/24 documented as of this encounter
--- OUTSIDE RECORDS SUMMARY | 2024-08-13 12:47 | XMS_ITS | Encounter Summary ---
Author Organization [facility] Address [address] [place] [address] Support Name Relationship Address Phone Stepan Gold Personal Relationship [address] [place] [address] Mi Gold Personal Relationship Unknown Rosalind Mai Personal Relationship Unknown Vivi Ward Personal Relationship Unknown Care Team Providers Care Telehealth Nurse Educator Name Role Phone Yehuda Baregr MD Primary Care Provider [phone] Milton Crum DO Primary Care Provider Miky Benton MD Primary Care Provider [phone] Provider, Historical Unavailable Unavailable Willi Templeton MD Unavailable [phone] María Andre MD Unavailable [phone] Selene Rodriguez ENGINEER BOOSTER AND EXHAUSTER Unavailable Mariah Flowers ENGINEER BOOSTER AND EXHAUSTER Unavailable [phone] Neyda Beltran MD Unavailable [phone] Ryanne Roblero MD Unavailable Unavailable Mi Martin APRN Unavailable [phone] Elijah Serra DO Primary Care Provider [phone] Micha Washington MD Unavailable Encounter Details Date Type Department Care Team (Late st Contact Info) Description 11/28/2001 Historical Encounter Global Yehuda Barger MD [address] [place] [address] Social History Tobacco Use Types Packs/Day Years [...] Description 11/06/2024 11:00 AM EDT Office Visit [facility] Endocrinology [place] [address] [place], [facility] [place], [address] [place] [phone] Micha Washington MD [address] [place] [address] [place] [address] Molly Figueroa PA-C [address] [place] [address] [place] [address] documented as of this encounter Visit Diagnoses Not on filedocumented in this encounter Additional Health Concerns Infection Onset Date Last Indicated Resolved Time 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 02/24/2017 02/22/2017 02/22/2017 04/02/2024 9:[address] documented as of this encounter Care Teams Telehealth Nurse Educator Relationship Specialty Start Date End Date Yehuda Barger MD [address] [place] [address] PCP - General 02/16/09 04/13/23 Milton Crum DO [address] [place] [address] PCP - General 01/08/09 02/15/09 Miky Louis MD [address] [place] [address] PCP - General 12/26/07 01/07/09 Elijah Serra DO [address] [place] [address] PCP - General Family Medicine 07/21/23 Provider, Historical 02/16/16 08/25/16 Willi Templeton MD [address] [facility] [address] [place] [address] Gastroenterology 02/25/16 María Andre MD [address] [place] [address] [address] [place] [address] Gastroenterology 03/08/16 Selene Rodriguez APRN [address] [place] [address] Gastroenterology 08/23/16 Mariah Flowers APRN [address] [place] [address] 510 [place] [address] Nurse Practitioner 08/26/16 Neyda Beltran MD [address] [address] [place] [address] Nephrology 03/17/17 Ryanne Roblero MD [address] [address] [place] [address] Rheumatology 03/01/18 Mi Martin APRN [address] [place] [address] [address] [place] [address] Nurse Practitioner Nurse Practitioner 04/16/19 Micha Washington MD [address] [place] [address] [address] [place] [address] Endocrinology 08/06/24 08/06/24 documented as of this encounter
--- OUTSIDE RECORDS SUMMARY | 2024-08-13 12:47 | XMS_ITS | Encounter Summary ---
Author Organization Healthcare Address [address] [place] [address] Care Team Providers Care Die Presser Name Role Phone Elijah Serra DO Primary Care Provider [phone] Encounter Details Date Type Department Care Team (Late st Contact Info) Description 07/15/2024 Orders Only External Location [address] [place] [address] Provider, External Social History Tobacco Use Types Packs/Day Years [...] and Family Not on file 07/16/2024 Attends Hinduism Services Not on file 07/16 Active Member [...] any time in the past 12 m [facility], were you homeless or [...] Hua RN 6. Suicidal Behavior (Lifetime) No 5:16 PM EDT Ruth Ann Hua RN documented as of this encounter Plan of Treatment Not on file documented as of this encounter Procedures Procedure Name Priority Date/Time Associated Diagnosis Comments CT NEURO OUTSIDE IMAGES 07/15/2024 9:56 AM EDT documented in this encounter Results * CT NEURO OUTSIDE IMAGES (07/15/2024 9:56 AM EDT) Anatomical Region Laterality Modality Computed Tomogra phy 07/15/2024 9:56 AM EDT us External Provider IMG CT PROCEDURES Final Result documented in this encounter Visit Diagnoses Not on filedocumented in this encounter Additional Health Concerns Infection Onset Date Last Indicated Resolved Time MRSA Comment:Added from external infection. Source: [facility]. 02/22/2017 07/15/2024 Respiratory Rule-Out 07/15/2024 07/15/2024 025 10:50 PM EDT Assessment Noted Time A Body Mass Index follow-up plan has been documented for the patient 07/20/2024 1:44 PM EDT documented as of this encounter Care Teams Die Presser Relationship Specialty Start Date End Date Elijah Serra DO [address] [place] [address] PCP - General Top Tile Decorator 12/01/22 documented as of this encounter
--- OUTSIDE RECORDS SUMMARY | 2024-08-13 12:47 | XMS_ITS | Encounter Summary ---
Author Organization [facility] Address [address] [place] [address] Support Name Relationship Address Phone Stepan Gold Personal Relationship [address] [place] [address] Mi Gold Personal Relationship Unknown Rosalind Mai Personal Relationship Unknown + [phone] Vivi Ward Personal Relationship Unknown [phone] Care Team Providers Care Replenishment Specialist Name Role Phone Yehuda Barger MD Primary Care Provider [phone] Milton Crum DO Primary Care Provider Miky Benton MD Primary Care Provider [phone] Provider, Historical Unavailable Unavailable Willi Templeton MD Unavailable [phone] María Andre MD Unavailable [phone] Selene Rodriguez ENVIRONMENTAL SAMPLER Unavailable +[phone] Mariah Flowers ENVIRONMENTAL SAMPLER Unavailable [phone] Neyda Beltran MD Unavailable +[phone] Ryanne Roblero MD Unavailable Unavailable Mi Martin APRN Unavailable [phone] Elijah Serra DO Primary Care Provider [phone] Micha Washington MD Unavailable Encounter Details Date Type Department Care Team (Late st Contact Info) Description 03/30/2002 Historical Encounter [facility] [employer] Social History Tobacco Use Types Packs/Day Years [...] Visit [facility] [address] [place], [facility] [place], [address] [place] [phone] Micha Washington MD [address] [place] [address] [place] [phone] Molly Figueroa PA-C [address] [place] [phone] documented as of this encounter Visit Diagnoses Not on filedocumented in this encounter Additional Health Concerns Infection Onset Date Last Indicated Resolved Time 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 02/24/2017 02/22/2017 02/22/2017 04/02/2024 9:[address] documented as of this encounter Care Teams Replenishment Specialist Relationship Specialty Start Date End Date Yehuda Barger MD [address] [place] [address] [place] [address] PCP - General 02/16/09 04/13/23 Milton Crum DO [address] [place] [address] [place] [address] PCP - General 01/08/09 02/15/09 Miky Louis MD [address] [facility] [place] [address] PCP - General 12/26/07 01/07/09 Elijah Serra DO 100 [place] [address] PCP - General Family Medicine 07/21/23 Provider, Historical 02/16/16 08/25/16 Willi Templeton MD [address] [place] [address] [address] [facility] [place] [address] Gastroenterology 02/25/16 María Andre MD [address] [place] [address] [address] [facility] [place] [address] Gastroenterology 03/08/16 Selene Rodriguez APRN [address] [place] [address] Gastroenterology 08/23/16 Mariah Flowers APRN [address] [place] [address] 510 [place] [address] Nurse Practitioner 08/26/16 Neyda Beltran MD [address] [place] [address] [address] [facility] [place] [address] Nephrology 03/17/17 Ryanne Roblero MD [address] [place] [address] [address] [facility] [place] [address] Rheumatology 03/01/18 Mi Martin APRN [address] [place] [address] 102 [place] [phone] Nurse Practitioner Nurse Practitioner 04/16/19 Micha Washington MD [address] [place] [address] [address] [place] [address] Endocrinology 08/06/24 08/06/24 documented as of this encounter
--- OUTSIDE RECORDS SUMMARY | 2024-08-13 12:47 | XMS_ITS | Encounter Summary ---
Author Organization Healthcare Address [address] [place] [address] Care Team Providers Care Marine Biologist Name Role Phone Elijah Serra DO Primary Care Provider [phone] Encounter Details Date Type Department Care Team (Late st Contact Info) Description 07/15/2024 Orders Only External Location [address] [place] [address] Provider, External Social History Tobacco Use Types [...] and Family Not on file 07/16/2024 Attends [employer] Services Not on file 07/16 Active Member [...] time in the past 12 m [facility], were you homeless or living in a nursing home (including now)? No 07/16/2024 Utilities Answer [...] 1 Month) No 025 5:16 PM EDT Ruht Ann Hua RN 2. Non-Specific Active Suici [...] Time MRSA Comment:Added from external infection. Source: [facility]. 02/22/2017 07/15/2024 Respiratory Rule-Out 07/15/2024 07/15/2024 025 10:50 PM EDT Assessment Noted Time A Body Mass Index follow-up plan has been documented for the patient 07/20/2024 1:44 PM EDT documented as of this encounter Care Teams Marine Biologist Relationship Specialty Start Date End Date Elijah Serra DO [address] [place] [address] PCP - General Planer Hand 12/01/22 documented as of this encounter
--- OUTSIDE RECORDS SUMMARY | 2024-08-13 12:47 | XMS_ITS | Encounter Summary ---
Author Organization [facility] Address [address] [place] [address] Support Name Relationship Address Phone Stepan Gold Personal Relationship [address] [place] [address] Mi Gold Personal Relationship Unknown Rosalind Mai Personal Relationship Unknown [phone] Vivi Ward Personal Relationship Unknown Care Team Providers Care Quarryman Name Role Phone Yehuda Barger MD Primary Care Provider [phone] Milton Crum DO Primary Care Provider Miky Benton MD Primary Care Provider [phone] Provider, Historical Unavailable Unavailable Willi Templeton MD Unavailable [phone] María Andre MD Unavailable [phone] Selene Rodriguez GROWTH HACKER Unavailable Mariah Flowers GROWTH HACKER Unavailable [phone] Neyda Beltran MD Unavailable [phone] Ryanne Roblero MD Unavailable Unavailable Mi Martin APRN Unavailable Elijah Serra DO Primary Care Provider [phone] Micha Washington MD Unavailable Encounter Details Date Type Department Care Team (Late st Contact Info) Description 12/24/2001 Historical Encounter Global Yehuda Barger MD [address] [place] [id number] Social History Tobacco Use Types Packs/Day Years [...] EDT Office Visit [facility] Endocrinology [place] [address] [place], [facility] [address], [address] [place] [phone] Micha Washington MD [address] [place] [address] [place] [address] Molly Figueroa PA-C [address] [place] [address] [place] [address] documented as of this encounter Visit Diagnoses Not on filedocumented in this encounter Additional Health Concerns Infection Onset Date Last Indicated Resolved Time 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 02/24/2017 02/22/2017 02/22/2017 04/02/2024 9:[address] documented as of this encounter Care Teams Quarryman Relationship Specialty Start Date End Date Yehuda Barger MD [address] [place] [address] PCP - General 02/16/09 04/13/23 Milton Crum DO [address] [place] [address] PCP - General 01/08/09 02/15/09 Miky Louis MD [address] [place] [address] PCP - General 12/26/07 01/07/09 Elijah Serra DO [address] [place] [address] PCP - General Family Medicine 07/21/23 Provider, Historical 02/16/16 08/25/16 Willi Templeton MD [address] [facility] [address] [place] [address] Gastroenterology 02/25/16 María Andre MD [address] [place] [address] [address] [place] [address] Gastroenterology 03/08/16 Selene Rodriguez APRN [address] [place] [address] Gastroenterology 08/23/16 Mariah Flowers APRN [address] [place] [address] [address] [place] [address] Nurse Practitioner 08/26/16 Neyda Beltran MD [address] [address] [place] [address] Nephrology 03/17/17 Ryanne Roblero MD [address] [address] [place] [address] Rheumatology 03/01/18 Mi Martni APRN [address] [place] [address] [address] [place] [id number] Nurse Practitioner Nurse Practitioner 04/16/19 Micha Washington MD [address] [place] [address] [address] [place] [address] Endocrinology 08/06/24 08/06/24 documented as of this encounter
--- OUTSIDE RECORDS SUMMARY | 2024-08-13 12:47 | XMS_ITS | Encounter Summary ---
Author Organization Healthcare Address [address] [id number] Care Team Providers Care Mdm Developer Name Role Phone Ponce Elijah Taylor DO Primary Care Provider [phone] Encounter Details Date Type Department Care Team (Latest Contact Info) Description 07/20/2024 Travel Social History Tobacco Use Types Packs/Day [...] and Family Not on file 07/16/2024 Attends [employer] Not on file 07/16 Active Member [...] were you homeless or living in a fdc (including now)? No 07/16/2024 Utilities Answer Date [...] Author No Risk Indicated 07/20/2024 8:00 AM Todd Michael RN * Question Answer Date of Assessment Author 1. Wish to be (Past 1 Month) No 025 8:00 AM MARIBELT Todd Ayala RN 2. Non-Specific Active Suici halie Thoughts (Past 1 Month) No 07/20/2024 8:00 AM EDT Ayala, Todd R, RN 6. Suicidal Behavior (Lifetime) No 5 8:00 AM EDT Todd Ayala RN documented as of this encounter Plan of Treatment Not on file documented as of this encounter Visit Diagnoses Not on filedocumented in this encounter Additional Health Concerns Infection Onset Date Last Indicated Resolved Time MRSA Comment:Added from external infection. Source: [facility]. 02/22/2017 07/15/2024 Assessment Noted Time A Body Mass Index follow-up plan has been documented for the patient 07/20/2024 1:44 PM EDT documented as of this encounter Care Teams Mdm Developer Relationship Specialty Start Date End Date Elijah Serra DO [address] [place] [address] PCP - General Manager Practice 12/01/22 documented as of this encounter
--- OUTSIDE RECORDS SUMMARY | 2024-08-13 12:47 | XMS_ITS | Data Portability ---
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 We reviewed BPH care pathway. [email or web address] Not available 06/06/2024 10:33:02 07/23/2024 07/23/2024 We will follow-up in 2 months or sooner as needed [email or web address] Not available 07/23/2024 22:02:06 Plan of Treatment Reminders Order Date Submit Date Provider Last Modified By Organization Details Last Modified Time Details Appointments RECHECK 2024 10:40A M HILARIA ANGEL PA-C Not available Not available Not available RECHECK 2024 11:30A M EVANGELINA HOUSTON DO Not available Not available Not available RHEUM RECHECK 2024 03:30P M YOLY MACHADO MD Not available Not available Not available NEUROLOG Y RECHECK 2024 10:00A [facility] Not available Not available Not available RECLAST 2024 09:30A M RHEUM_INFU SEKOU Not available Not available Not available RECHECK 2024 11:30A M GABRIELLA GAFFNEY MD Not available Not available Not available RECHECK 2024 01:15P M XAVIER ISABEL MD Not available Not available Not available DERMATOL OGY VISIT 2024 10:00A M JOSE ANDERSON MD Not available Not available Not available Lab urinalys is panel, auto 2024 025 [email or web address] [facility], [address], [place], [address], 07/05/2024 11:11:04 CBC w/ auto diff 2024 025 [facility], [address] [place] [address], [address], 07/05/2024 15:58:22 CMP, serum or plasma 2024 025 [facility], [address] [place] [address], [address], 07/05/2024 15:51:02 lipase, serum or plasma 2024 025 [facility], [address] [place] [address], [address], 07/05/2024 15:51:04 urinalys is panel, auto [email or web address] [place] [address] [facility], [address], [facility], [place], [address], 06/06/2024 10:33:03 CBC w/ auto diff 2024 025 [facility], [address] [place] [address], [address], 05/21/2024 15:09:28 creatini ne, serum or plasma 2024 025 [email or web address] [facility], [address] [place] [address], [address], 05/29/2024 08:07:20 ALT (alanine aminotra nsferase ), serum or plasma [address] [facility], [address] [place] [address], [address], 05/29/2024 08:07:20 AST/SGOT (asparta te aminotra nsferase ), serum or plasma [address] [facility], [address] [place] [address], [address], 05/29/2024 08:07:20 ESR (erythro cyte sediment ation rate), blood [address] [facility], [address] [place] [address], [address], 05/29/2024 08:07:20 Referral physical therapis t referral 2024 025 [email or web address] [facility], [address], [place], [address], 08/06/2024 09:40:20 pulmonol ogist referral 2024 025 [email or web address] Hilaria Angel PA-C, [address] [facility], [place] [address], [place], [address], 07/23/2024 12:28:26 speech therapy referral 2024 025 MAX [facility], [address], [place], [address], 07/31/2024 17:41:43 Procedures None recorded . Surgeries None recorded . Imaging CT, chest + abdomen + pelvis, w/o contrast - Chronic cough since right sided pneumoni a in 04/2024. Now with left rhonchi. Also suspect right sided nephroli thiasis with history of same and current flank pain. 10/2023 5 mm hypodens e pancreat ic lesion which was suspecte d to be benign [address] [facility], [address], [place], [address], 07/05/2024 12:21:16 Medication Orders amoxicil mariel 875 mg-potas sium clavulan ate 125 mg tablet 2024 025 [facility]AH [facility][id number], [address], [id number], 08/04/2024 05:01:40 doxycycl ine hyclate 100 mg capsule 2024 025 [facility] #[id number], [address], [id number], 07/05/2024 05:02:50 prometha zine-DM 6.25 mg-15 mg/5 mL oral syrup 2024 025 [id number], [address], [id number], 07/05/2024 10:41:42 allopuri nol 300 mg tablet 2024 025 [facility] ([facility]), [address], [place], [address], 05/21/2024 15:09:19 duloxeti ne 60 mg capsule, delayed release 2024 025 [facility] ([facility]), [address], [place], [address], 05/21/2024 15:09:18 colchici ne 0.6 mg tablet 2024 025 [facility] (Now [facility]), [address], [place], [address], 05/21/2024 15:09:20 gabapent in 800 mg tablet 2024 025 [facility] ([facility]), [address], [place], [address], 05/21/2024 15:09:24 hydroxyc hloroqui ne 200 mg tablet 2024 025 [facility] ([facility]), [address], [place], [address], 05/21/2024 15:09:18 Patient TargetsNo targets recorded. Patient Instructions Encounter Date Encounter Id Patient Instructions Last Modified By Organization Details Last Modified Time 05/21/2024 [id number] Body Mass Index: Care Instructions-LC [email or web address] Not available 05/21/2024 15:09:16 05/23/2024 [id number] learning about healthy weight [email or web address] Not available 06/06/2024 10:33:03 06/18/2024 [id number] pulse oximetry* MAX Not available 06/18/2024 14:13:24 07/05/2024 [id number] - Take Orlando as prescribed for pain, and you may add Tylenol if needed, but do not exceed 4,000 mg of Tylenol in one day. - Avoid anti-inflammatory medications as they may affect your kidneys. - Proceed with the imaging tests as scheduled to evaluate your flank pain and chronic cough. - If you experience high fevers, vomiting, or worsening symptoms before the tests, seek immediate care. - Follow up with any additional instructions provided after your imaging results are reviewed. [email or web address] Not available 07/05/2024 11:04:35 Reason for Referral Referring Physician: [facility], Encounter Date: 07/23/2024 Child Care Team Lead Referral for P neumonia Referring Physician: [facility], Encounter Date: 07/23/2024 Physical Therapist Referral for Asthenia Referring Physician: [facility], Encounter Date: 07/23/2024 Results Created Date Observation Date Name Description Value Unit Range Abnormal Flag Note LastModifiedBy Organization Detail LastModifiedTime 05/24/19 25 05/23/2024 urina lysis panel , auto Unknown Analyte Clean Catch Not Available [facility] [address], [place], [address], 05/23/2024 11:41:47 05/24/19 25 05/23/2024 urina lysis panel , auto Unknown Analyte Yellow Not Available [facility] [place], [place], [address], 05/23/2024 11:41:47 05/24/19 25 05/23/2024 urina lysis panel , auto Unknown Analyte Clear Not Available [facility] [place] [address], [place], [address], 05/23/2024 11:41:47 05/24/19 25 05/23/2024 urina lysis panel , auto Unknown Analyte 1.015 Not Available [facility] [place] [address], [place], [address], 05/23/2024 11:41:47 05/24/19 25 05/23/2024 urina lysis panel , auto Unknown Analyte 1.003 - 1.030 Not Available [facility] [place] [address], [place], [address], 05/23/2024 11:41:47 05/24/19 25 05/23/2024 urina lysis panel , auto Unknown Analyte 5.0 Not Available [facility] [place] [address], [place], [address], 05/23/2024 11:41:47 05/24/19 25 05/23/2024 urina lysis panel , auto Unknown Analyte 5.0 - 8.0 Not Available [facility] [place] [address], [place], [address], 05/23/2024 11:41:47 05/24/19 25 05/23/2024 urina lysis panel , auto Unknown Analyte Negati ve Not Available [facility] [address], [place], [address], 05/23/2024 11:41:47 05/24/19 25 05/23/2024 urina lysis panel , auto Unknown Analyte Negati ve Not Available [facility] [place] [address], [place], [address], 05/23/2024 11:41:47 05/24/19 25 05/23/2024 urina lysis panel , auto Unknown Analyte Negati ve Not Available [facility] [place] [address], [place], [address], 05/23/2024 11:41:47 05/24/19 25 05/23/2024 urina lysis panel , auto Unknown Analyte Negati ve Not Available [facility] [place] [address], [place], [address], 05/23/2024 11:41:47 05/24/19 25 05/23/2024 urina lysis panel , auto Unknown Analyte Negati ve Not Available [facility] [place] [address], [place], [address], 05/23/2024 11:41:47 05/24/19 25 05/23/2024 urina lysis panel , auto Unknown Analyte Negati ve Not Available [facility] [place] [address], [place], [address], 05/23/2024 11:41:47 05/24/19 25 05/23/2024 urina lysis panel , auto Unknown Analyte >1000 mg/dL Not Available [facility] [address], [place], [address], 05/23/2024 11:41:47 05/24/19 25 05/23/2024 urina lysis panel , auto Unknown Analyte Normal Not Available [facility] [place] [address], [place], [address], 05/23/2024 11:41:47 05/24/19 25 05/23/2024 urina lysis panel , auto Unknown Analyte Negati ve Not Available [facility] [place] [address], [place], [address], 05/23/2024 11:41:47 05/24/19 25 05/23/2024 urina lysis panel , auto Unknown Analyte Negati ve Not Available [facility] [place] [address], [place], [address], 05/23/2024 11:41:47 05/24/19 25 05/23/2024 urina lysis panel , auto Unknown Analyte Normal Not Available [facility] [place] [address], [place], [address], 05/23/2024 11:41:47 05/24/19 25 05/23/2024 urina lysis panel , auto Unknown Analyte Normal Not Available [facility] [place] [address], [place], [address], 05/23/2024 11:41:47 05/24/19 25 05/23/2024 urina lysis panel , auto Unknown Analyte Negati ve Not Available [facility] [address] [facility], [place], [address], 05/23/2024 11:41:47 05/24/19 25 05/23/2024 urina lysis panel , auto Unknown Analyte Negati ve Not Available [facility] [address] [facility], [place], [address], 05/23/2024 11:41:47 05/24/19 25 05/23/2024 urina lysis panel , auto Unknown Analyte Negati ve Not Available [facility] [address], [place], [address], 05/23/2024 11:41:47 05/24/19 25 05/23/2024 urina lysis panel , auto Unknown Analyte Negati ve Not Available [facility] [address], [place], [address], 05/23/2024 11:41:47 06/19/19 25 06/18/2024 pulse oxime try* Result 93% Not Available [place] [address], [place], [address], 06/18/2024 13:41:20 07/06/19 25 07/05/2024 COMP. METAB OLIC PANEL glucose 280 mg/dL 74-100 high Not Available [facility] [address] [place] [address], [address], 07/05/2024 15:51:02 07/06/19 25 07/05/2024 COMP. METAB OLIC PANEL blood urea nitrogen 13 mg/dL 6-20 normal Not Available [facility] [address] [place], [address], 07/05/2024 15:51:02 07/06/19 25 07/05/2024 COMP. METAB OLIC PANEL creatinine 1.09 mg/dL 0.70-1 .20 normal Not Available [facility] [address] [place] [address], [address], 07/05/2024 15:51:02 07/06/19 25 07/05/2024 COMP. METAB OLIC PANEL BUN/creatini ne ratio 12 (calc ) 10-20 normal Not Available [facility] [address] [place] [address], [address], 07/05/2024 15:51:02 07/06/19 25 07/05/2024 COMP. METAB OLIC PANEL sodium 140 mmol/ L 136-14 5 normal Not Available [facility] [address] [place] [address], [address], 07/05/2024 15:51:02 07/06/19 25 07/05/2024 COMP. METAB OLIC PANEL potassium 4.6 mmol/ L 3.4-5. 0 normal Not Available [facility] [address] [place] [address], [address], 07/05/2024 15:51:02 07/06/19 25 07/05/2024 COMP. METAB OLIC PANEL chloride 98 mmol/ L 98-107 normal Not Available [facility] [address] [place] [address], [address], 07/05/2024 15:51:02 07/06/19 25 07/05/2024 COMP. METAB OLIC PANEL carbon dioxide 29 mmol/ L 22-31 normal Not Available [facility] [address] [place] [address], [address], 07/05/2024 15:51:02 07/06/19 25 07/05/2024 COMP. METAB OLIC PANEL anion gap 13 (calc ) 7-25 normal Not Available [facility] [address] [place] [address], [address], 07/05/2024 15:51:02 07/06/19 25 07/05/2024 COMP. METAB OLIC PANEL calcium 10.3 mg/dL 8.6-10 .2 high Not Available [facility] [address] [place] [address], [address], 07/05/2024 15:51:02 07/06/19 25 07/05/2024 COMP. METAB OLIC PANEL total protein 7.8 g/dL 6.4-8. 3 normal Not Available [facility] [address] [place] [address], [address], 07/05/2024 15:51:02 07/06/19 25 07/05/2024 COMP. METAB OLIC PANEL albumin 4.1 g/dL 3.5-5. 2 normal Not Available [facility] [address] [place] [address], [address], 07/05/2024 15:51:02 07/06/19 25 07/05/2024 COMP. METAB OLIC PANEL globulin 3.7 1.5-4. 5 normal Not Available [facility] [address] [place] [address], [address], 07/05/2024 15:51:02 07/06/19 25 07/05/2024 COMP. METAB OLIC PANEL albumin/glob ulin ratio 1.1 (calc ) 1.1-2. 5 normal Not Available [facility] [address] [place] [address], [address], 07/05/2024 15:51:02 07/06/19 25 07/05/2024 COMP. METAB OLIC PANEL bilirubin, total 0.7 mg/dL 0.1-1. 2 normal Not Available [facility] [address] [place] [address], [address], 07/05/2024 15:51:02 07/06/19 25 07/05/2024 COMP. METAB OLIC PANEL alkaline phosphatase 109 U/L 40-129 normal Not Available [facility] [address] [place] [address], [address], 07/05/2024 15:51:02 07/06/19 25 07/05/2024 COMP. METAB OLIC PANEL AST 25 U/L 0-40 normal Not Available [facility] [address] [place] [address], [address], 07/05/2024 15:51:02 07/06/19 25 07/05/2024 COMP. METAB OLIC PANEL ALT 23 U/L 0-41 normal Not Available [facility] [address] [place], [address], 07/05/2024 15:51:02 07/06/19 25 07/05/2024 COMP. METAB OLIC PANEL eGFR 73 >= 60 normal NOT E New calcu latio n for GFR (CKD- EPI 2020) is formu lated witho ut race adjus tment facto rs at the recom menda tion of the Joan aggarwal and [facility]anca [facility] ty of Nephr ology . This calcu latio n has not been valid ated in pregn ant women . For pedia tric patie nts refer to https ://estelle [email or web address].[email or web address] granados/jaylon casanova s/YAW QI/gf r_cal culat orPed Not Available [facility] [address] [place] [address], [address], 07/05/2024 15:51:02 07/06/19 25 07/05/2024 LIPAS E lipase 11 U/L 13-60 low Not Available [facility] [address] [place] [address], [address], 07/05/2024 15:51:04 07/06/19 25 07/05/2024 ALT ALT 23 U/L 0-41 normal Not Available [facility] [address] [place] [address], [address], 07/05/2024 15:55:24 07/06/19 25 07/05/2024 CREAT ININE creatinine 1.10 mg/dL 0.70-1 .20 normal Not Available [facility] [address] [place] [address], [address], 07/05/2024 15:55:27 07/06/19 25 07/05/2024 AST AST 23 U/L 0-40 normal Not Available [facility] [address] [place] [address], [address], 07/05/2024 15:55:28 07/06/19 25 07/05/2024 COMPL ETE BLOOD COUNT white blood cells 5.2 10*3/ uL 3.8-10 .8 normal Not Available [facility] [address] [place] [address], [address], 07/05/2024 15:58:22 07/06/19 25 07/05/2024 COMPL ETE BLOOD COUNT red blood cells 4.69 10*6/ uL 4.20-5 .80 normal Not Available [facility] [address] [place] [address], [address], 07/05/2024 15:58:22 07/06/19 25 07/05/2024 COMPL ETE BLOOD COUNT hemoglobin 13.1 g/dL 14.0-1 8.0 low Not Available [facility] [address] [place] [address], [address], 07/05/2024 15:58:22 07/06/19 25 07/05/2024 COMPL ETE BLOOD COUNT hematocrit 39.7 % 40.0-5 2.0 low Not Available [facility] [address] [place] [address], [address], 07/05/2024 15:58:22 07/06/1907/05/2024 COMPL ETE BLOOD COUNT MCV 85 fL 80-100 normal Not Available [facility] [address] [place] [address], [address], 07/05/2024 15:58:22 07/06/19 25 07/05/2024 COMPL ETE BLOOD COUNT MCH 28 pg 26-35 normal Not Available [facility] [address] [place] [address], [address], 07/05/2024 15:58:22 07/06/19 25 07/05/2024 COMPL ETE BLOOD COUNT MCHC 33 g/dL 32-36 normal Not Available [facility] [address] [place] [address], [address], 07/05/2024 15:58:22 07/06/19 25 07/05/2024 COMPL ETE BLOOD COUNT RDW 16.7 % 11.0-1 5.0 high Not Available [facility] [address] [place] [address], [address], 07/05/2024 15:58:22 07/06/19 25 07/05/2024 COMPL ETE BLOOD COUNT MPV 6.9 fL 6.2-10 .5 normal Not Available [facility] [address] [place] [address], [address], 07/05/2024 15:58:22 07/06/19 25 07/05/2024 COMPL ETE BLOOD COUNT platelet count 188 10*3/ uL 150-40 0 normal Not Available [facility] [address] [place] [address], [address], 07/05/2024 15:58:22 07/06/19 25 07/05/2024 COMPL ETE BLOOD COUNT neutrophil,a bsolute 3.2 10*3/ uL 1.6-8. 4 normal Not Available [facility] [address] [place] [address], [address], 07/05/2024 15:58:22 07/06/19 25 07/05/2024 COMPL ETE BLOOD COUNT lymphocyte,a bsolute 1.3 10*3/ uL 0.4-5. 1 normal Not Available [facility] [address] [place] [address], [address], 07/05/2024 15:58:22 07/06/19 25 07/05/2024 COMPL ETE BLOOD COUNT monocyte,abs olute 0.4 10*3/ uL 0.0-1. 2 normal Not Available [facility] [address] [place] [address], [address], 07/05/2024 15:58:22 07/06/19 25 07/05/2024 COMPL ETE BLOOD COUNT eosinophil,a bsolute 0.2 10*3/ uL 0.0-0. 8 normal Not Available [facility] [address] [place] [address], [address], 07/05/2024 15:58:22 07/06/19 25 07/05/2024 COMPL ETE BLOOD COUNT basophil,abs olute 0.0 10*3/ uL 0.0-0. 3 normal Not Available [facility] [address] [place] [address], [address], 07/05/2024 15:58:22 07/06/19 25 07/05/2024 COMPL ETE BLOOD COUNT % neutrophils 61.5 % 42.0-7 8.0 normal Not Available [facility] [address] [place] [address], [address], 07/05/2024 15:58:22 07/06/19 25 07/05/2024 COMPL ETE BLOOD COUNT % lymphocytes 24.4 % 11.0-4 7.0 normal Not Available [facility] [address] [place] [address], [address], 07/05/2024 15:58:22 07/06/19 25 07/05/2024 COMPL ETE BLOOD COUNT % monocytes 8.4 % 0.0-11 .0 normal Not Available [facility] [address] [place] [address], [address], 07/05/2024 15:58:22 07/06/19 25 07/05/2024 COMPL ETE BLOOD COUNT % eosinophils 4.8 % 0.0-7. 0 normal Not Available [facility] [address] [place] [address], [address], 07/05/2024 15:58:22 07/06/19 25 07/05/2024 COMPL ETE BLOOD COUNT % basophils 0.9 % 0.0-3. 0 normal Not Available [facility] [address] [place] [address], [address], 07/05/2024 15:58:22 07/06/19 25 07/05/2024 COMPL ETE BLOOD COUNT nucleated red cells 0.0 % 0.0-0. 9 normal Not Available [facility] [address] [place] [address], [address], 07/05/2024 15:58:22 07/06/19 25 07/05/2024 COMPL ETE BLOOD COUNT nucleated RBCs, absolute 0.00 10*3/ uL not estab. normal Not Available [facility] [address] [place] [address], [address], 07/05/2024 15:58:22 07/06/19 25 07/05/2024 ESR, AUTOM ATED ESR, automated 25 mm 0-19 high Not Available [facility] [address] [place] [address], [address], 07/05/2024 19:21:33 07/06/19 25 07/05/2024 urina lysis panel , auto Unknown Analyte Clean Catch Not Available [address], [place], [address], 07/05/2024 10:34:52 07/06/19 25 07/05/2024 urina lysis panel , auto Unknown Analyte Yellow Not Available [address], [place], [address], 07/05/2024 10:34:52 07/06/19 25 07/05/2024 urina lysis panel , auto Unknown Analyte Clear Not Available [address], [place], [address], 07/05/2024 10:34:52 07/06/19 25 07/05/2024 urina lysis panel , auto Unknown Analyte 1.010 Not Available [address], [place], [address], 07/05/2024 10:34:52 07/06/19 25 07/05/2024 urina lysis panel , auto Unknown Analyte 7.0 Not Available [address], [place], [address], 07/05/2024 10:34:52 07/06/19 25 07/05/2024 urina lysis panel , auto Unknown Analyte Negati ve Not Available [address], [place], [address], 07/05/2024 10:34:52 07/06/19 25 07/05/2024 urina lysis panel , auto Unknown Analyte Negati ve Not Available [place] [address], [place], [address], 07/05/2024 10:34:52 07/06/19 25 07/05/2024 urina lysis panel , auto Unknown Analyte Negati ve Not Available [address], [place], [address], 07/05/2024 10:34:52 07/06/19 25 07/05/2024 urina lysis panel , auto Unknown Analyte Normal Not Available [place] [address], [place], [address], 07/05/2024 10:34:52 07/06/19 25 07/05/2024 urina lysis panel , auto Unknown Analyte Negati ve Not Available [address] [address], [place], [address], 07/05/2024 10:34:52 07/06/19 25 07/05/2024 urina lysis panel , auto Unknown Analyte Normal Not Available [address] , [place], [address], 07/05/2024 10:34:52 07/06/19 25 07/05/2024 urina lysis panel , auto Unknown Analyte Negati ve Not Available [address] , [place], [address], 07/05/2024 10:34:52 07/06/19 25 07/05/2024 urina lysis panel , auto Unknown Analyte Negati ve Not Available [address] , [place], [address], 07/05/2024 10:34:52 07/06/19 25 07/05/2024 CT, chest + abdom en + pelvi s, w/o contr ast [address] 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 Gallbl adder is [...] STRUCT URES: Normal . COMBIN ED IMPRES SEKOU: 1. Bibasi lar infilt rates with underl troy associ ated bronch iectas is, left base [...] Roberto Jurado MD on 025 12:16 PM [id number] [facility] [address] [place] [address] , [place], [address], 07/05/2024 15:07:57 07/17/19 25 07/15/2024 elect cyndi nava am No observ ation record ed. [facility] [address] [place], [address], 07/19/2024 07:59:43 Result Notes Documentation Provider Name and Address Organization Details Recorded Time Ct, Chest + Abdomen + Pelvis, W/o Contrast : [facility] [address] [place] [address] Patient Name: SOLEDAD GOLD Patient : 1955 Patient Ordering Provider: EVANGELINA HOUSTON EXAM DATE: 07/05/2024 EXAM: CT C/A/P WITHOUT CONTRAST CLINICAL INFORMATION: Pain. Coughing. Pancreatic lesion TECHNIQUE: Multiple axial CT images of the chest, abdomen and pelvis were obtained without injection of IV contrast. Bowel was opacified with oral contrast. COMPARISON: MRI dated 10/14/2023, CT chest 10/14/[address] CHEST: AIRWAYS AND LUNGS: Trachea, principal bronchi and major bronchial branches are patent and normal. Bibasilar infiltrates are present clearly greatest in the left lung base with associated underlying bronchiectatic change. MEDIASTINUM: No mediastinal lymphadenopathy. Aorta, SVC, pulmonary arteries, pulmonary veins and their major branches and tributaries are normal. Abundant coronary artery calcifications are present. PLEURA AND CHEST WALL: No pleural effusion or mass. No chest wall abnormality. FINDINGS ON CT ABDOMEN: UPPER ABDOMINAL ORGANS: Liver, spleen, pancreas, and adrenals are normal. Subtle punctate nonobstructive bilateral renal stones are present.. There is a benign-appearing 2.2 cm cyst from the posterior left kidney. Gallbladder is absent. In the vicinity of the pancreatic head is a collection which appears to be bowel content and I suspect this is a sizable diverticulum extending into the pancreatic bed. Correlate for pancreatic enzymes. BOWEL AND MESENTERY: Stomach, small bowel and colon are normal. No mesenteric lymphadenopathy or peritoneal free fluid. RETROPERITONEUM: Aorta, IVC and their branches are patent and normal. No retroperitoneal lymphadenopathy. ABDOMINAL WALL AND SKELETAL STRUCTURES: Normal. FINDINGS ON CT PELVIS: PELVIC CAVITY: Urinary bladder and rectosigmoid are normal. No pelvic or inguinal lymphadenopathy, mass or fluid. MUSCULOSKELETAL STRUCTURES: Normal. COMBINED IMPRESSION: 1. Bibasilar infiltrates with underlying associated bronchiectasis, left base greater than right 2. Benign-appearing cyst left kidney with punctate bilateral nonobstructive renal stones 3. Very unusual collection in the pancreatic head region has the appearance of bowel content is likely a diverticulum. Interpreted By: Roberto Jurado MD [facility] 07[facility] 15:07:57 Problems Name Problem SNOMED Code Status Onset Date Resolution Date Notes Provider Name and Address Organization Details Recorded Time History of coronary artery bypass grafting 340187637 Active 2020 [facility] 4 09:22:49 Type 1 diabetes mellitus 26768118 Active 2020 DPN EVANGELINA HOUSTON DO [address] [place], [address] , [facility] 3 19:18:56 Erosive osteoarth rosis 996213444 Active 2020 hydroxych loroquine , cymbalta f/w Rheum EVANGELINA HOUSTON DO [address] [place], [address] , [facility] 3 10:34:29 Coronary arteriosc lerosis 07734585 Active 2020 s/p CABG, Stenting [facility] 08/18/2020 EVANGELINA HOUSTON DO [address] [place], [address] , [facility] 2 10:07:28 Hypothyro idism 03356549 Active 2020 [facility] 4 09:22:49 Dyspnea on exertion 64334435 Active 2020 JASON BURGOS PA-C [address] [place], [address] , [facility] 1 12:35:15 Secondary gout 711231987 Active 2020 EVANGELINA HOUSTON DO [address] [place], [address] , [facility] 2 10:07:28 Hyperpara thyroidis m due to renal insuffici ency 92778119 Active 2020 NM parathyro id normal EVANGELINA ROSEMARIE, DO [address] [place], [address] , [facility] 3 20:47:44 Calcium pyrophosp hate depositio n disease 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 Active 2020 EVANGELINA TOSCANOON, DO [address] [place], [address] , [facility] 2 10:07:28 Supraspin atus tear 216368468 Active 2020 R, full thickness MRI 07/2020 EVANGELINA HOUSTON, DO [address] [place], [address] , [facility] 1 16:39:26 Lumbar spondylol isthesis 78903808662 9102 Active 2020 f/w Dr Edgardo HOUSTON, DO [address] [place], [address] , [facility] 2 10:07:28 History of calculus of kidney 673088693 Active 2020 EVANGELINA HOUSTON, DO [address] [place], [address] , [facility] 2 10:07:28 Degenerat griffin disorder of macula 194938218 Active 2020 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 EVANGELINA HOUSTON, DO [address] [place], [address] , [facility] 2 10:07:28 Esophagea l dysphagia 81159070 Active 2020 EGD 01/2021, dilated, recc 3y f/u EVANGELINA HOUSTON, DO [address] [place], [address] , [facility] 2 10:09:09 Minimal cognitive impairmen t 061001262 Active 2021 [place] [address] [place] [address], [address] , [facility] 2 10:09:05 Obstructi ve sleep apnea syndrome 68181965 Active 2021 EVANGELINA HOUSTON, DO [address] [place] [address], [address] , [facility] 2 10:09:55 Chronic diastolic heart failure 519878380 Active 2021 EVANGELINA HOUSTON, DO [address] [place] [address], [address] , [facility] 2 18:48:59 Chronic kidney disease stage 3A 526200990 Active 2022 EVANGELINARAFAEL HOUSTON, DO [address] [place] [address], [address] , [facility] 3 10:20:26 Obesity 630225587 Active 2022 [facility] 4 09:22:49 Bronchiec tasis 06093769 Active 2022 EVANGELINAANA HOUSTON [address], [address] , [facility] 3 11:01:46 Fecal incontine nce with fecal urgency 00847198972 9102 Active 2023 KP LIANG MD [address] [place] [address], [address] , [facility] 4 15:03:28 Atheroscl erosis of aorta 31963848 Active Not Available [facility] 4 10:12:08 Acquired thrombocy topenia 90580048 Active Not Available [facility] 4 10:12:26 Hypertens griffin disorder 60245331 Active 2023 EVANGELINA HOUSTON DO [address] [place] [address], [address] , [facility] 4 10:24:41 Sensorine ural hearing loss of bilateral ears 882944809 Active 2024 f/w ENT EVANGELINA ROSEMARIE, DO [address] [place], [address] , [facility] 16:04:46 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 46313088704 101 Active Not Available Zachary Prell 12:26:19 Dementia 87363940 Active Not Available Zachary Prell 12:29:59 Rheumatoi d arthritis 09453772 Active Not Available Zachary Prell 13:42:55 Problem Notes Documentation Provider Name and Address Organization Details Recorded Time Rheumatology Note : [address] [address]ZKSIZLASoledad (id #[id number], : 1955) [address] [address] Encounter Summary - Progress Note Date Printed: 05/21/2024 Documents sent via fax will include the followingmessage: This fax may contain sensitive and confidential personal health information that is being sent for the sole use of the intended recipient. Unintended recipients are directed to securely destroy any materials received. You are hereby notified that the unauthorized disclosure or other unlawful use of this fax or any personal health information is prohibited. To the extent patient information contained in this fax is subject to 42 CFR Part 2, this regulation prohibits unauthorized disclosure of these records. If you received this fax in error, please visit [email or web address] to notify the sender and confirm that the information will be destroyed. If you do not have internet access, please call to notify the sender and confirm that the information will be destroyed. Thank you for your attention and cooperation. [ID:[id number]] Patient Soledad Gold (68yo, M) #[id number] 1955 Patient Demographics: Address [address] [place] [address] Work Phone Encounter Notes: Encounter Reason/Date hands and back have been hurting more- ache constantly 05/21/2024 - 03:00PM - RHEUMATOLOGY SB History of Present Illnessallie 68 yo male, f/u on erosive osteoarthritis and osteoporosislast year, he broke his hip in March then broke a bone in his left foothe continues with worsening joint pain and has maintained with fibro, cppd and erosive oa treatmenthe reports the following symptomatic complaints: left wrist, bilateral hands, and neck. Hand pain wakes him up nightly.having issues with multiple joints with chronic and recurringHe is using plaquenil and voltaren gel, gabapentin for bilateral leg pain.xrays show erosive arthritis, cppd and osteoarthritiswith multiple joint pain and tenderness; stiffness and swelling;having balance issues; no new injuries Review of SystemsROS as noted in the HPI Vitals Ht: 5 ft 9 in05/21/2024 02:50 pm Wt: 191 lbs With ceibupk5405/21/2024 02:52 pm BMI: 28. 02:52 pm BP: 122/62 sitting R arm05/21/2024 02:55 pm Pulse: 81 bpm05/21/2024 02:55 pm O2Sat: 95%05/21/2024 02:55 pm Results/InterpretationsNone recorded Physical ExamConstitutional:General Appearance: healthy-appearing andoverweight. Level of Distress: NAD. Ambulation: ambulating normally. Mental Status:Mental Status: normal mood and affect and active and alert. Orientation: to time, place, and person. Head:Head: normocephalic and atraumatic. Eyes:Lids and Conjunctivae: no discharge or pallor and non-injected. Sclerae: non-icteric. ENMT:Ears: no lesions on external ear or hearing loss. Nose: no lesions on external nose and nares patent. Oral Cavity: no mouth or lip ulcers. Oropharynx: moist mucous membranes. Face: no malar erythema. Lungs:Respiration: no dyspnea. Musculoskeletal System:Joints, Bones, and Muscles:contracture,malalignmen t,limited ROM,bony deformity, andtenderness(multiple joints);bilateral hands with pain in the 2nd and 3rd mcps; severe bony deformity of bilateral first mtp joints. Extremities: no cyanosis or edema. Knees: no ligamentous instability on examination. Neurological Exam:Motor: normal bulk and tone and no tremors, rigidity, or bradykinesia. Gait and Station: normal gait and station. Cranial Nerves: grossly intact. Sensation: grossly intact. Skin:Inspection and palpation: no rash, lesions, ulcer, induration, nodules, jaundice, or abnormal nevi and good turgor. Nails: normal. Procedure DocumentationInjection Joint/Bursa, Small, w/o US:Injection Small Joint/Bursa: After discussion of the risks and benefits, the patient consented to proceed with a steroid injection into the bilateral, involved finger joint(s). The skin was prepped in a sterile fashion. Topical anesthesia was achieved with ethyl chloride. The joint was injected with .05 cc of xfcjugfuhh89 mg/ml, and Lidocaine. The injection was completed without complication, and a bandage was applied. The patient tolerated the procedure well and was instructed to avoid strenuous activity for the next 24-48 hours and to use ice, NSAIDs, or Tylenol for pain as needed. The patient will call immediately with any signs of infection or allergic reaction. The patient will return as needed.Methylprednisolone 80 mg/mLMedication [facility]#:36943-694-47Mhxdqymree Lot#[id number] Exp: 02/06/2025Lidocaine 1%Lot [id number] 09/07/2024[facility] [id number] Assessment and Plan1. Erosive osteoarthrosis-maintain hydrOXYchloroQUINE 200 mg tablet 2 tablets every dayVoltaren Gel to bilateral handswith more severe oa deformities in the hands, wrists, with ulnar deviation and severe bone spurring with erosive findings in the hands, feet and kneeshas severe oa in the spine with multi level disc bulge and sees Dr. Floyd have him maintain the hydroxychloroquine 200 mg twice padocN54.4: Erosive (osteo)arthritis gabapentin 800 mg tablet - Take 1 tablet(s) 3 times a day by oral route. Qty: (270) tablet Refills: 1 Pharmacy: [facility] (NOW [facility]) hydroxychloroquine 200 mg tablet - Take 2 tablet(s) every day by oral route. Qty: (180) tablet Refills: 1 Pharmacy: [facility] (NOW [facility]) 2. Tailor's bunion of right foot-with severe bone pain, stiffness; deformityno need for injections lcllrI54.621: Bunionette of right foot 3. Calcium pyrophosphate deposition disease-per uzzkxW10.80: Other specified crystal arthropathies, unspecified site colchicine 0.6 mg tablet - Take 1 tablet(s) twice a day by oral route. Qty: (180) tablet Refills: 1 Pharmacy: [facility] (NOW [facility]) 4. Gout-long history of gout as well as pseudogoutwill have him maintain allopurinol 300 mg ohnpiT05.9: Gout, unspecified allopurinol 300 mg tablet - Take 1 tablet(s) every day by oral route. Qty: (90) tablet Refills: 1 Pharmacy: [facility] (NOW [facility]) 5. Fibromyalgia-chronic myofascial painlikely secondary to the erosive evtwpncwsaarvxH72.7: Fibromyalgia duloxetine 60 mg capsule,delayed release - Take 1 capsule(s) twice a day by oral route. Qty: (180) capsule Refills: 1 Pharmacy: [facility] (NOW [facility]) 6. Pain of bilateral hands-Sees Frandy Aminraz h/o ulnar deviationhistory of injections would like to discuss further todaywith injections provided into ia joints in mireille hands caoryC31.641: Pain in right hand M79.642: Pain in left hand 7. Long-term drug qttlonyB22.899: Other skilled nursing (current) drug therapy CBC CREATININE Height (ft.): 5 ft 9 in Height (in.): 69 Weight (lbs): 191 ALT AST ESR, AUTOMATED 8. Chronic low back pain-with severe degeneration of the l3, l4 and l5/s1 vertebraewith decreased disc and neural openingscurrently taking stronger pain medication and is going to have rfi done M54.50: Low back pain, unspecified 9. Pathological fracture- Left -next dexa due 08/26/2025 or evedbT41.40XA: Pathological fracture, unspecified site, initial encounter for fracture 10. Body mass index 30+ - bjzgafuQ14.31: Body mass index [BMI] 31.0-31.9, adult Body Mass Index: Care Instructions-LC - Handout: Body Mass Index: Care Instructions-LC Return to Office XAVIER ISABEL MD for RECHECK at [facility] on 05/23/2024 at 11:15 AM EVANGLEINA HOUSTON DO for RECHECK at [facility] on 07/23/2024 at 11:30 AM NAVA SPEAR APRN for RHEUM RECHECK at RHEUMATOLOGY on 09/25/2024 at 01:30 PM MARY CARTWRIGHT PA-C for NEUROLOGY RECHECK at NEUROLOGY Former[facility] named [facility] on 10/11/2024 at 10:00 AM RHEUM_INFUSION for RECLAST at RHEUMATOLOGY on 10/23/2024 at 09:30 AM GABRIELLA GAFFNEY MD for RECHECK at CARDIOLOGY [facility] on 11/22/2024 at 11:30 AM JOSE ANDERSON MD for DERMATOLOGY VISIT at DERMATOLOGY [facility] on 01/29/2025 at 10:00 AM to see KP LIANG MD at GASTRO on or around 03/30/2032 Patient Medical History: Allergies List Reviewed Allergies ADHESIVE TAPE IODINE Medications Reviewed Medications NameDate Source allopurinoL 300 mg tabletTake 1 tablet(s) every day by oral route.05/21/24 prescribed NAVA SPEAR APRN aspirin 81 mg tablet,delayed releaseTake 1 tablet(s) every day by oral route.10/26/22 entered EVANGELINA HOUSTON DO BD Ultra-Fine Mini Pen Needle 31 gauge x 3/16 USE DIRECTED FOUR TIMES DAILY11/02/21 filled surescripts betamethasone, augmented 0.05 % topical creamAPPLY A THIN LAYER TO THE AFFECTED AREA(S) BY TOPICAL ROUTE TWICE DAILY PRN ; DO NOT EXCEED 50 GRAMS PER WK02/22/23 prescribed JOSE ANDERSON MD clopidogreL 75 mg tabletTAKE 1 TABLET EVERY DAY -MUST MAKE APPOINTMENT FOR FURTHER GDEJPYQ06/18/24 renewed GABRIELLA GAFFNEY MD colchicine 0.6 mg tabletTake 1 tablet(s) twice a day by oral route.05/21/24 prescribed NAVA SPEAR APRN colestipoL 1 gram tabletTake 1 tablet(s) twice a day by oral route before meal(s) for 30 days.11/23/23 prescribed GABRIELLA GAFFNEY MD diclofenac 1 % topical gelAPPLY 2 GRAMS TO AFFECTED AREA FOUR TIMES DAILY03/29/23 renewed NAVA SPEAR APRN donepeziL 10 mg tablet1 per day, start started Cheri Rojas DULoxetine 60 mg capsule,delayed releaseTake 1 capsule(s) twice a day by oral route.05/21/24 prescribed NAVA SPEAR APRN EPINEPHrine 0.3 mg/0.3 mL injection, auto-kmzuofau44/03/22 filled surescripts finasteride 5 mg tabletTake 1 tablet(s) every day by oral route for 90 days.02/17/24 prescribed APARNA HANEY PA-C fluocinonide 0.05 % topical ointmentAPPLY TWICE A DAY SPARINGLY TO LOWER LEGS WHEN LSSPHFCPD26/25/20 filled surescripts fluticasone propionate 50 mcg/actuation nasal spray,suspensionUSE 2 SPRAYS IN EACH NOSTRIL EVERY DAY01/23/24 renewed EVANGELINA HOUSTON DO furosemide 40 mg tabletTAKE 1 TABLET EVERY DAY03/05/24 renewed EVANGELINA HOUSTON DO gabapentin 800 mg tabletTake 1 tablet(s) 3 times a day by oral route.05/21/24 prescribed NAVA SPEAR APRN hydroxychloroquine 200 mg tabletTake 2 tablet(s) every day by oral route.05/21/24 prescribed NAVA SPEAR APRN ipratropium 0.5 mg-albuteroL 3 mg (2.5 mg base)/3 mL nebulization solnInhale 3 mL 4 times a day by nebulization route as needed for 7 days.04/06/24 changed EVANGELINA HOUSTON DO levothyroxine 150 mcg tabletTake 1 tablet(s) every day by oral route. Internal Note:increased dose per 04/04 tllfwstom15/27/25 entered Mo Guerra metoprolol succinate ER 25 mg tablet,extended release 24 hrTAKE 1/2 TABLET EVERY DAY11/23/23 prescribed GABRIELLA GAFFNEY MD moxifloxacin 0.5 % eye dropsINSTILL 1 DROP IN RIGHT EYE FOUR TIMES DAILY02/02/22 filled surescripts nitroglycerin 0.4 mg sublingual tabletPlace 1 tablet(s) as needed by sublingual route.12/20/20 filled surescripts [place] 5 mg-325 mg tabletTake 1 tablet(s) 3 times a day by oral route. Internal Note:DR Hamilton, in pain gfuyuhoerq16/19/24 entered Mary Brownford NovoLOG Flexpen U-100 Insulin aspart 100 unit/mL (3 mL) subcutaneousinject 6 untis before meals plus SSI of 1u:50 > 150 max daily 17djtdp62/07/23 prescribed KRISTINA KISER APRN ondansetron HCL 4 mg tabletTake 2 tablet(s) twice a day by oral route as needed.09/07/23 prescribed EVANGELINA HOUSTON DO OneTouch Delica Plus Lancet 33 gaugeUSE DIRECTED FOR TESTING 5 TO 6 TIMES DAILY09/18/21 filled surescripts OneTouch Ultra Test strips5-6 times daily10/14/22 prescribed KRISTINA KISER APRN Reclast 5 mg/100 mL intravenous piggybackInject 5 mg by intravenous route. Internal Note:Reclast - 0.05 mg/ml - 5 mg/100 ml - yearly (#1) - next infusion (#2) 10/23/24 @ 0930 - [facility] 10 - M81. administered NAVA SPEAR APRN rosuvastatin 20 mg tabletTAKE 1 TABLET EVERY DAY11/23/23 prescribed GABRIELLA GAFFNEY MD sucralfate 1 gram tabletTAKE 1 TABLET TWICE DAILY04/13/24 renewed EVANGELINA HOUSTON DO tamsulosin 0.4 mg capsuleTake 2 capsule(s) every day by oral route for 90 days.02/17/24 prescribed APARNA HANEY PA-C tiZANidine 4 mg tabletTake 1 tablet(s) twice a day by oral route.08/31/22 prescribed NAVA SPEAR APRN Toujeo Max U-300 SoloStar 300 unit/mL (3 mL) subcutaneous insulin penInject 38 units once a day increase by 2 units every 3-5 days to achieve fasting glucose of 90-130 max daily dose 60units Internal Note:current 20U qhs, per endo Dr [place]04/19/23 prescribed KRISTINA KISER APRN traZODone 150 mg tabletTake 1 tablet(s) every day by oral route.04/11/24 prescribed ELENA DAILY PA-C triamcinolone acetonide 0.1 % topical creamAPPLY A THIN LAYER TO THE AFFECTED AREA(S) ON LEGS BY TOPICAL ROUTE 2 TIMES PER DAY01/25/23 prescribed JOSE ANDERSON MD Vitamin C 500 mg tabletTake 1 tablet(s) twice a day by oral route.10/26/22 entered Mo Charlie Family HistoryFamily History not reviewed (last reviewed 04/11/2024) Mother - Blood coagulation disorder - Myocardial infarction - Cerebrovascular accident - Disorder of thyroid gland - Complication of anesthesia - Heart disease - Hypertensive disorder - Diabetes mellitus Brother - Malignant melanoma - Myocardial infarction - Disorder of thyroid gland Sister - Heart disease - Hypertensive disorder - Diabetes mellitus Past Medical HistoryPast Medical History not reviewed (last reviewed 04/11/2024) Acid Reflux (GERD):Y Arthritis:Y Bleeding Disorder:Y Diabetes:Y-type 1 Heart Disease:Y Hypertension:Y Vaccine HistoryVaccines not reviewed (last reviewed 04/11/2024) Vaccine Type Date Amt. Route Site [facility] Lot # [id number]. Exp. 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 07/18/24 COVID-19 mRNA ages 12 and up 11/24/23 01/26/24 Mary Johnson COVID-19, mRNA, LNP-S, PF, 50 mcg/0.5 mL 01/24/23 0.5 mL Intramuscular Deltoid, Left [id number] Wim[employer]. 05/05/23 COVID-19 mRNA ages 12 and up 11/25/2022 01/24/23 Madyson Harms COVID-19, mRNA, LNP-S, PF, 30 mcg/0.3 mL dose ([employer]) 11/11/20 0.3 mL Intramuscular [id number] [employer] 01/07/21 COVID-19 vaccine, vector-nr, rS-ChAdOx1, PF, 0.5 mL ([employer]) 05/09/20 COVID-19, mRNA, LNP-S, PF, 30 mcg/0.3 mL dose ([employer]) 05/09/20 0.3 mL Intramuscular [id number] [employer] 08/07/20 COVID-19 vaccine, vector-nr, rS-ChAdOx1, PF, 0.5 mL ([employer]) 04/14/20 COVID-19, mRNA, LNP-S, PF, 30 mcg/0.3 mL dose ([employer]) 04/14/20 0.3 mL Intramuscular [id number] [employer] 07/27/20 Diphtheria, Tetanus, Pertussis Tdap 04/26/19 0.5 mL Intramuscular [id number] [employer] 04/25/21 Influenza influenza, high dose seasonal 01/26/24 0.5 mL Intramuscular Deltoid, Left [id number] [employer] 08/06/24 Inactivated Influenza 09/12/2020 01/26/24 Mary [place] influenza, high-dose, quadrivalent 12/01/22 0.7 mL Intramuscular Deltoid, Left [id number] [employer] 08/07/23 Inactivated Influenza 09/12/2020 12/01/22 Madyson Harms influenza, high-dose, quadrivalent 12/21/21 0.7 mL Intramuscular Deltoid, Left [id number] [employer] 08/06/22 Inactivated Influenza 09/12/2020 12/21/21 Madyson Harms influenza, high-dose, quadrivalent 12/19/20 0.7 mL Intramuscular Deltoid, Left [id number] [employer] 08/06/21 Inactivated Influenza 09/12/2020 12/19/20 Madyson Harms Influenza vaccine, quadrivalent, adjuvanted 12/07/19 0.5 mL [id number] [employer] 08/06/20 influenza, seasonal, intradermal, preservative free 11/10/18 0.5 mL Intramuscular [id number] [employer] 08/07/19 influenza, seasonal, intradermal, preservative free 12/05/17 0.5 mL Intramuscular [id number] [employer] 08/06/18 Respiratory Syncytial Virus RSV, recombinant, protein subunit RSVpreF, adjuvant reconstituted, 0.5 mL, PF 01/24/23 0.5 mL Intramuscular Deltoid, Right [id number] [facility] 08/12/24 RSV (Respiratory Syncytial Virus) 11/25/2022 01/24/23 Madyson Pinto Zoster zoster recombinant 09/15/21 0.5 mL Intramuscular 9K2MA GlaxoSmithKline 10/31/22 zoster recombinant 07/15/21 0.5 mL Intramuscular [id number] GlaxoSmithKline 10/07/22 pneumovax at 65 Electronically Signed by: NAVA SPEAR APRN, MARY Daija Louis [facility] 05/22/2024 09:35:00 Urology Note : [address] [facility] [address]NKWOUVO, Van ALAN (id #[id number], : 1955) [address] [place] [address] [place] [address] Encounter Summary - Progress Note Date Printed: 06/06/2024 Documents sent via fax will include the followingmessage: This fax may contain sensitive and confidential personal health information that is being sent for the sole use of the intended recipient. Unintended recipients are directed to securely destroy any materials received. You are hereby notified that the unauthorized disclosure or other unlawful use of this fax or any personal health information is prohibited. To the extent patient information contained in this fax is subject to 42 CFR Part 2, this regulation prohibits unauthorized disclosure of these records. If you received this fax in error, please visit [email or web address] to notify the sender and confirm that the information will be destroyed. If you do not have internet access, please call to notify the sender and confirm that the information will be destroyed. Thank you for your attention and cooperation. [ID:[id number]] Patient Soledad Gold (68yo, M) #[id number] 1955 Patient Demographics: Address [address] [place] [id number] Work Phone Encounter Notes: Encounter Reason/Date fu 05/23/2024 - 11:15AM - [facility] History of Present [id number] male presents for a follow up evaluation and discussion of BPH with outflow obstruction. He underwent cystoscopy with Dr. Ross. Taking double dose tamsulosin and finasteride daily. Patient reports improved daytime frequency, every 2-3 hours, although he notes increased urination today once every hour. Nocturia is usually once nightly, however he also notes increased nocturia to 3 times nightly he attributes to recent bilateral steriod injections in his hands. No hesitancy or straining. History of urolithiasis as well as extensive arthritis. Review of Systems Patient reports no fever, no night sweats, no significant weight gain, no significant weight loss, and no exercise intolerance. He reports no abdominal pain, no nausea, and no vomiting. [id number] 11:41 Ht: 5 ft 9 in Wt: 180 lbs BMI: 26.6 Results/Interpretations URINALYSIS PANEL, AUTO UA Panel Auto Result Reference Range Source Clean Catch Color Yellow Clarity Clear Specific [place] 1.015 1.003 - 1.030 pH 5.0 5.0 - 8.0 Leukocytes Negative Negative Nitrite Negative Negative Protein Negative Negative Glucose >1000 mg/dL Normal Ketones Negative Negative Urobilinogen Normal Normal Bilirubin Negative Negative Blood Negative Negative Physical ExamConstitutional:General Appearance: healthy-appearing, well-nourished, and well-developed. Psychiatric:Orientation: to time, place, and person. Abdomen:Inspection and Palpation: soft, non-distended, and no tenderness. Procedure DocumentationNone recorded Assessment and PlanMedical management lower urinary symptoms with double dose tamsulosin and finasteride. We reviewed BPH care pathway. 1.Benign prostatic hyperplasia with urinary dpwkfhitzsiV80.1: Benign prostatic hyperplasia with lower urinary tract symptoms N13.8: Other obstructive and reflux uropathy URINALYSIS PANEL, AUTO - Specimen source: Urine LEARNING ABOUT HEALTHY WEIGHT 2.JsprclwbC22.1: Nocturia URINALYSIS PANEL, AUTO UA Panel Auto Result Reference Range Source Clean Catch Color Yellow Clarity Clear Specific [place] 1.015 1.003 - 1.030 pH 5.0 5.0 - 8.0 Leukocytes Negative Negative Nitrite Negative Negative Protein Negative Negative Glucose >1000 mg/dL Normal Ketones Negative Negative Urobilinogen Normal Normal Bilirubin Negative Negative Blood Negative Negative Return to Office EVANGELINA HOUSTON DO for RECHECK at [facility] on 07/23/2024 at 11:30 AM NAVA SPEAR APRN for RHEUM RECHECK at RHEUMATOLOGY on 09/25/2024 at 01:30 PM MARY CARTWRIGHT PA-C for NEUROLOGY RECHECK at NEUROLOGY Formerly named [facility] on 10/11/2024 at 10:00 AM RHEUM_INFUSION for RECLAST at RHEUMATOLOGY on 10/23/2024 at 09:30 AM GABRIELLA GAFFNEY MD for RECHECK at CARDIOLOGY [facility] on 11/22/2024 at 11:30 AM XAVIER ISABEL MD for RECHECK at [facility] on 11/29/2024 at 01:15 PM JOSE ANDERSON MD for DERMATOLOGY VISIT at DERMATOLOGY [facility] on 01/29/2025 at 10:00 AM to see KP LIANG MD at [facility] on or around 03/30/2032 Patient Medical History: Allergies List Reviewed Allergies ADHESIVE TAPE IODINE Medications Reviewed Medications NameDate Source allopurinoL 300 mg tabletTake 1 tablet(s) every day by oral route.05/21/24 prescribed NAVA SPEAR APRN aspirin 81 mg tablet,delayed releaseTake 1 tablet(s) every day by oral route.10/26/22 entered EVANGELINA HOUSTON DO BD Ultra-Fine Mini Pen Needle 31 gauge x 3/16 USE DIRECTED FOUR TIMES DAILY11/02/21 filled surescripts betamethasone, augmented 0.05 % topical creamAPPLY A THIN LAYER TO THE AFFECTED AREA(S) BY TOPICAL ROUTE TWICE DAILY PRN ; DO NOT EXCEED 50 GRAMS PER WK02/22/23 prescribed JOSE ANDERSON MD clopidogreL 75 mg tabletTAKE 1 TABLET EVERY DAY -MUST MAKE APPOINTMENT FOR FURTHER IRWCYAG27/18/24 renewed GABRIELLA GAFFNEY MD colchicine 0.6 mg tabletTake 1 tablet(s) twice a day by oral route.05/21/24 prescribed NAVA SPEAR APRN colestipoL 1 gram tabletTake 1 tablet(s) twice a day by oral route before meal(s) for 30 days.11/23/23 prescribed GABRIELLA GAFFNEY MD diclofenac 1 % topical gelAPPLY 2 GRAMS TO AFFECTED AREA FOUR TIMES DAILY03/29/23 renewed NAVA SPEAR APRN donepeziL 10 mg tablet1 per day, start started Cheri Rojas DULoxetine 60 mg capsule,delayed releaseTake 1 capsule(s) twice a day by oral route.05/21/24 prescribed NAVA SPEAR APRN EPINEPHrine 0.3 mg/0.3 mL injection, auto-ltlvursr28/03/22 filled surescripts finasteride 5 mg tabletTake 1 tablet(s) every day by oral route for 90 days.02/17/24 prescribed APARNA HANEY PA-C fluocinonide 0.05 % topical ointmentAPPLY TWICE A DAY SPARINGLY TO LOWER LEGS WHEN VNIUMAZCN50/25/20 filled surescripts fluticasone propionate 50 mcg/actuation nasal spray,suspensionUSE 2 SPRAYS IN EACH NOSTRIL EVERY DAY01/23/24 renewed EVANGELINA HOUSTON DO furosemide 40 mg tabletTAKE 1 TABLET EVERY DAY03/05/24 renewed EVANGELINA HOUSTON DO gabapentin 800 mg tabletTake 1 tablet(s) 3 times a day by oral route.05/21/24 prescribed NAVA SPEAR APRN hydroxychloroquine 200 mg tabletTake 2 tablet(s) every day by oral route.05/21/24 prescribed NAVA SPEAR APRN ipratropium 0.5 mg-albuteroL 3 mg (2.5 mg base)/3 mL nebulization solnInhale 3 mL 4 times a day by nebulization route as needed for 7 days.04/06/24 changed EVANGELINA HOUSTON DO levothyroxine 150 mcg tabletTake 1 tablet(s) every day by oral route. Internal Note:increased dose per 04/04 oohnfbzoo98/27/25 entered Mo Guerra metoprolol succinate ER 25 mg tablet,extended release 24 hrTAKE 1/2 TABLET EVERY DAY11/23/23 prescribed GABRIELLA GAFFNEY MD moxifloxacin 0.5 % eye dropsINSTILL 1 DROP IN RIGHT EYE FOUR TIMES DAILY02/02/22 filled surescripts nitroglycerin 0.4 mg sublingual tabletPlace 1 tablet(s) as needed by sublingual route.12/20/20 filled surescripts Orlando 5 mg-325 mg tabletTake 1 tablet(s) 3 times a day by oral route. Internal Note:DR Hamilton, in pain /19/24 entered Mary Johnson NovoLOG Flexpen U-100 Insulin aspart 100 unit/mL (3 mL) subcutaneousinject 6 untis before meals plus SSI of 1u:50 > 150 max daily 69lomce62/07/23 prescribed KRISTINA KISER APRN ondansetron HCL 4 mg tabletTake 2 tablet(s) twice a day by oral route as needed.09/07/23 prescribed EVANGELINA HOUSTON DO OneTouch Delica Plus Lancet 33 gaugeUSE DIRECTED FOR TESTING 5 TO 6 TIMES DAILY09/18/21 filled surescripts OneTouch Ultra Test strips5-6 times daily10/14/22 prescribed KRISTINA KISER APRN Reclast 5 mg/100 mL intravenous piggybackInject 5 mg by intravenous route. Internal Note:Reclast - 0.05 mg/ml - 5 mg/100 ml - yearly (#1) - next infusion (#2) 10/23/24 @ 0930 - ICD 10 - M81. administered NAVA SPEAR APRN rosuvastatin 20 mg tabletTAKE 1 TABLET EVERY DAY11/23/23 prescribed GABRIELLA GAFFNEY MD sucralfate 1 gram tabletTAKE 1 TABLET TWICE DAILY04/13/24 renewed EVANGELINA HOUSTON DO tamsulosin 0.4 mg capsuleTake 2 capsule(s) every day by oral route for 90 days.02/17/24 prescribed APARNA HANEY PA-C tiZANidine 4 mg tabletTake 1 tablet(s) twice a day by oral route.08/31/22 prescribed NAVA SPEAR APRN Toujeo Max U-300 SoloStar 300 unit/mL (3 mL) subcutaneous insulin penInject 38 units once a day increase by 2 units every 3-5 days to achieve fasting glucose of 90-130 max daily dose 60units Internal Note:current 20U qhs, per endo Dr [place]04/19/23 prescribed KRISTINA KISER APRN traZODone 150 mg tabletTake 1 tablet(s) every day by oral route.04/11/24 prescribed ELENA DAILY PA-C triamcinolone acetonide 0.1 % topical creamAPPLY A THIN LAYER TO THE AFFECTED AREA(S) ON LEGS BY TOPICAL ROUTE 2 TIMES PER DAY01/25/23 prescribed JOSE ANDERSON MD Vitamin C 500 mg tabletTake 1 tablet(s) twice a day by oral route.10/26/22 entered Mo Charlie Family HistoryReviewed Family History Mother - Blood coagulation disorder - Myocardial infarction - Cerebrovascular accident - Disorder of thyroid gland - Complication of anesthesia - Heart disease - Hypertensive disorder - Diabetes mellitus Brother - Malignant melanoma - Myocardial infarction - Disorder of thyroid gland Sister - Heart disease - Hypertensive disorder - Diabetes mellitus Past Medical HistoryReviewed Past Medical History Acid Reflux (GERD):Y Allergies/Hayfever:Y Anemia:Y Anxiety Disorder:Y Arthritis:Y Bladder or Kidney Problems:Y Constipation:Y Coronary Artery Disease:Y Diabetes:Y-type 1 Gout:Y Heart Disease:Y High Cholesterol:Y Hypertension:Y Kidney Disease:Y Kidney Stones:Y Pneumonia:Y-MRSA Sleep Apnea:Y Vaccine HistoryReviewed Vaccines Vaccine Type Date Amt. Route Site [facility] Lot # Mfr. Exp. 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 07/18/24 COVID-19 mRNA ages 12 and up 11/24/23 01/26/24 Mary Johnson COVID-19, mRNA, LNP-S, PF, 50 mcg/0.5 mL 01/24/23 0.5 mL Intramuscular Deltoid, Left [id number] Wimdu. 05/05/23 COVID-19 mRNA ages 12 and up 11/25/2022 01/24/23 Madyson Pinto COVID-19, mRNA, LNP-S, PF, 30 mcg/0.3 mL dose (Voddler) 11/11/20 0.3 mL Intramuscular [id number] [employer] 01/07/21 COVID-19 vaccine, vector-nr, rS-ChAdOx1, PF, 0.5 mL (AstraZeneca) 05/09/20 COVID-19, mRNA, LNP-S, PF, 30 mcg/0.3 mL dose (Voddler) 05/09/20 0.3 mL Intramuscular [id number] Pfizer, Inc 08/07/20 COVID-19 vaccine, vector-nr, rS-ChAdOx1, PF, 0.5 mL (AstraZenFio) 04/14/20 COVID-19, mRNA, LNP-S, PF, 30 mcg/0.3 mL dose (ImaxioBioBookatable (Livebookings)) 04/14/20 0.3 mL Intramuscular [id number] Experifun, Inc 07/27/20 Diphtheria, Tetanus, Pertussis Tdap 04/26/19 0.5 mL Intramuscular [id number] GlaxoSmithKline 04/25/21 Influenza influenza, high dose seasonal 01/26/24 0.5 mL Intramuscular Deltoid, Left [id number] Sanofi Pasteur 08/06/24 Inactivated Influenza 09/12/2020 01/26/24 Mary Brownford influenza, high-dose, quadrivalent 12/01/22 0.7 mL Intramuscular Deltoid, Left [id number] Sanofi Pasteur 08/07/23 Inactivated Influenza 09/12/2020 12/01/22 Madyson Harms influenza, high-dose, quadrivalent 12/21/21 0.7 mL Intramuscular Deltoid, Left [id number] Sanofi Pasteur 08/06/22 Inactivated Influenza 09/12/2020 12/21/21 Madyson Harms influenza, high-dose, quadrivalent 12/19/20 0.7 mL Intramuscular Deltoid, Left [id number] Sanofi Pasteur 08/06/21 Inactivated Influenza 09/12/2020 12/19/20 Madyson Harms Influenza vaccine, quadrivalent, adjuvanted 12/07/19 0.5 mL [id number] Se[employer] 08/06/20 influenza, seasonal, intradermal, preservative free 11/10/18 0.5 mL Intramuscular [id number] Sanofi Pasteur 08/07/19 influenza, seasonal, intradermal, preservative free 12/05/17 0.5 mL Intramuscular [id number] Sanofi Pasteur 08/06/18 Respiratory Syncytial Virus RSV, recombinant, protein subunit RSVpreF, adjuvant reconstituted, 0.5 mL, PF 01/24/23 0.5 mL Intramuscular Deltoid, Right [id number] [facility] 08/12/24 RSV (Respiratory Syncytial Virus) 11/25/2022 01/24/23 Madyson Harms Zoster zoster recombinant 09/15/21 0.5 mL Intramuscular 9K2MA GlaxoSmithKline 10/31/22 zoster recombinant 07/15/21 0.5 mL Intramuscular [id number] [facility] 10/07/22 pneumovax at 65 Electronically Signed by: XAVIER ISABEL MD Daija thompson [facility] 06/06/2024 12:46:37 Procedures Surgical History Date Name Laterality Status Provider Name and Address Organization Details Recorded Time 07/24/19 25 TCM completed [facility] 07/23/2024 10:04:38 05/22/19 25 Injection Joint/Bursa, Small, w/o US completed NAVA SPEAR APRN [address] [place], [address], [place] [facility] 05/21/2024 15:08:03 04/12/19 25 TCM completed [facility] 04/05/2024 13:12:55 02/16/19 25 Post Void Residual; Ultrasound completed Elizabeth Muñoz [facility] 02/17/2024 10:05:41 02/06/20 24 Injection Joint/Bursa, Small, w/o US completed NAVA SPEAR APRN [address] [place], [address], [place] [facility] 02/06/2024 15:20:44 01/30/20 24 Destruction Premalignant Lesion(s) completed Renuka Sears [facility] 01/30/2024 10:19:17 01/17/20 24 Injection Joint/Bursa, Small, w/o US completed NAVA SPEAR APRN [address] [place], [address], [facility] 01/17/2024 13:32:56 10/21/19 24 Reclast Infusion completed Milton Zee [facility] 10/21/2023 12:29:17 09/21/19 24 TCM completed Sol Gann [facility] 09/17/2023 09:12:16 06/09/19 24 TCM completed Mo Guerra [facility] 06/02/2023 14:11:12 01/26/20 23 Destruction BN Lesions completed Lalita Coelho [facility] 01/25/2023 09:47:09 01/06/20 23 Spirometry completed Ester Juanis [facility] 01/05/2023 09:10:09 11/30/19 23 Injection Joint/Bursa, Small, w/o US completed NAVA SPEAR, PUMPER GAUGER APPRENTICE [address] [place], [address], [facility] 11/29/2022 10:01:36 11/06/19 23 Airway Resistance completed Ester Juanis [facility] 11/05/2022 08:15:12 11/06/19 23 Diffusion Capacity completed Ester Juanis [facility] 11/05/2022 08:15:10 11/06/19 23 Lung Volumes, Plethysmography completed Ester Juanis [facility] 11/05/2022 08:15:13 11/06/19 23 Spirometry completed Ester Juanis [facility] 11/05/2022 08:17:05 10/27/19 23 TCM completed Mo Guerra [facility] 10/26/2022 09:18:08 07/09/19 23 Stress Test - Nuclear Lexiscan completed GABRIELLA GAFFNEY MD [address] [place], [address], [facility] 07/08/2022 13:15:11 05/01/19 23 TCM completed JELANI VENEGAS PA-C [address] [place], [address], [facility] 04/29/2022 11:47:19 04/23/19 23 EKG completed GABRIELLA GAFFNEY MD [address] [place], [address], [facility] 04/22/2022 13:37:25 04/16/19 23 Injection Joint/Bursa, Small, w/o US completed NAVA SPEAR, PUMPER GAUGER APPRENTICE [address] [place], [address], [facility] 04/15/2022 09:43:06 04/16/19 23 Injection Trigger Finger completed NAVA SPEAR, PUMPER GAUGER APPRENTICE [address] [place], [address], [facility] 04/15/2022 09:43:33 03/30/19 23 colonoscopy completed Amita Crawford [facility] 03/31/2022 10:12:24 01/26/20 22 Destruction Premalignant Lesion(s) completed Lalita Coelho [facility] 01/25/2022 10:30:08 01/26/20 22 Shave Lesion; face, ear, eyelid, nose, lip, muc memb completed JOSE ANDERSON MD [address] [place], [address], [facility] 01/26/2022 17:32:59 12/22/19 22 TCM completed Mo Guerra [facility] 12/10/2021 14:48:20 08/18/19 22 Injection Joint/Bursa, Small, w/o US completed NAVA SPEAR, LAKESHIA [address] [place], [address], [facility] 08/17/2021 08:38:09 06/24/19 22 EKG completed JASON BURGOS PA-C [address] [place], [address], [facility] 06/23/2021 11:14:58 06/04/19 22 arthroscopic debridement of knee joint completed Kun Jose [facility] 06/17/2021 14:29:32 11/08/19 21 Shave Lesion; trunk, arm, leg completed JOSE ANDERSON MD [address] [place], [address], [facility] 11/11/2020 17:50:29 11/08/19 21 Destruction Premalignant Lesion(s) completed Lalita Coelho [facility] 11/07/2020 13:50:19 11/04/19 21 Op Note completed TRISH MAYNARD MD [address] [place] [address], [address], [facility] 11/03/2020 09:48:35 08/19/19 21 catheterization of left heart completed Marybel Hart [facility] 09/01/2020 15:41:19 07/09/19 21 Stress Test - Nuclear Lexiscan completed JOHANA BARNEY MD [address] [place] [address], [address], [facility] 07/08/2020 15:17:35 06/26/19 21 Endoscopy Nasal; Diagnostic completed CINDY LABOY MD [address] [place] [address], [address], [facility] 06/25/2020 16:17:59 06/24/19 21 EKG completed JASON BURGOS PA-C [address] [place] [address], [address], [facility] 06/23/2020 12:34:26 02/07/19 18 Stent Placement completed EVANGELINA HOUSTON DO [address] [place] [address], [address], [facility] 07/01/2020 08:01:28 02/07/19 00 CABG completed Madyson Pinto [facility] 06/19/2020 10:53:23 repair of hip completed Madyson Pinto [facility] 06/19/2020 10:54:31 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 completed EVANGELINA HOUSTON DO [facility] [place], [address] 07/01/2020 08:01:49 Cataract Surgery completed Madyson Pinto [facility] 06/19/2020 11:48:18 removal of thyroid nodule completed EVANGELINARAFAEL HOUSTON DO [address] [place], [address], [facility] 06/19/2020 12:50:12 cholecystectomy completed EVAGNELINA DO ROSEMARIE [address] [place], [address], [facility] 07/01/2020 08:00:48 Carpal tunnel surgery completed Corin Logan [facility] 11/11/2020 10:10:27 Imaging Results None recorded. Procedure Notes None recorded. Medical Equipment None Reported. Allergies Allergen ID Allergen Name Allergen Category Reaction Reaction Severity Criticality Documentation Date Start Date Code Code System Note Provider Name and Address Organization Details Recorded Time 763335 iodine medicatio n Not available Not available Not available 06/19/2020 5933 RxNorm Madyson Pinto [facility] 10:45:39 828447 adhesive tape environme nt,medica tion Not available Not available Not available 06/19/2020 77640 UNK Madyson Blair [facility] 10:45:44 Medications Name Sig Start Date Stop [...] NS 05/13 completed Just finished dose pack 04.15.2021 Not Available Not Available Not Available amoxicill [...] completed Not Available Not Available Not Available Orlando 10 mg-325 mg tablet Take 1 tablet [...] e Mini Pen Needle 31 gauge x 3/16 USE DIRECTED FOUR TIMES DAILY active Not [...] next infusion (#2) 10/23/24 @ 0930 - [facility] NAMED [facility] 10 - M81.0 Not Available Not [...] Available Droplet Pen Needle 31 gauge x /16 USE DIRECTED FOUR TIMES DAILY WITH INSULIN active Not Available Not Available No t Available Toujeo Max U-300 SoloStar 300 unit/mL [...] mass index (BMI) Body weight Heart rate Oxygen saturation Oxygen saturation in Arterial blood by Pulse oximetry Systolic And Diastolic Provider Name and Address Organization Details Last Updated DateTime 175.26 cm 28.2 kg/m2 99628.1 4 g 81 /min 95 % 95 % 122/62 mm[Hg] Marguerite Trotter [facility] 14:55:31 Date Recorded Body height Body mass index (BMI) Body weight Provider Name and Address Organization Details Last Updated DateTime 05/23/2024 175.26 cm 26.6 kg/m2 78241.63 g Evelin Freeman [facility] 05/23/2024 11:41:16 Date Recorded Oxygen saturation Oxygen saturation in Arterial blood by Pulse oximetry Provider Name and Address Organization Details Last Updated DateTime 06/18/2024 93 % 93 % FERNANDA CRUZ PA-C [address] [place], [address], [facility] 06/18/2024 13:40:44 Date Recorded Body height Body temperature Heart rate Systolic And Diastolic Provider Name and Address Organization Details Last Updated DateTime 06/18/2024 175.26 cm 98 [degF] 83 /min 117/70 mm[Hg] Keyla Queen [facility] 06/18/2024 13:31:49 Date Recorded Body height Body mass index (BMI) Body weight Body temperature Heart rate Systolic And Diastolic Provider Name and Address Organization Details Last Updated DateTime 05/29/202 5 175.26 cm 25.7 kg/m2 42914.0 7 g 97.8 [degF] 85 /min 136/80 mm[Hg] Brianne Edwar [facility] 5 10:42:48 Date Recorded Body height Body mass index (BMI) Body weight Heart rate Respiratory rate Oxygen saturation Oxygen saturation in Arterial blood by Pulse oximetry Systolic And Diastolic Provider Name and Address Organization Details Last Updated DateTime 5 175.26 cm 26.6 kg/m2 62812.6 3 g 70 /min 18 /min 94 % 94 % 126/58 mm[Hg] Madyson Pinto [facility] 5 11:23:50 Social History Question Answer Notes LastModified by Organizat ion Details LastModified Time Tobacco Smoking Status Former Smoker Susan thompson, [facility] 10/23/2020 08:53:41 What Is Your Level Of Caffeine Consumption? Moderate [email or web address] Information not available 06/19/2020 What Type Of Diet Are You Following? REGULAR [email or web address] Information not available 06/19/2020 Education 2 Year College Information not available 06/19/2020 When Did You Quit Smoking? 16+yearssince colt Information not available 07/15/2022 Live Alone Or With Others? With Others Information not available 06/19/2020 Marital Status [email or web address] Informatio n not available 06/19/2020 What Was The Date Of Your Most Recent Tobacco Screening? 05/23/2024 [email or web address] Information not available 05/23/2024 How Many Children Do You Have? 5 Information not available 06/19/2020 What Is Your Relationship Status? Information not available 10/03/2020 Are You Sexually Active? No [email or web address] Information not available 06/19/2020 At What Age Did You Start Smoking Tobacco? 18 [email or web address] Information not available 11/05/2022 How Much Tobacco Do You Smoke? No [email or web address] Information not available 07/17/2020 Has Tobacco Cessation Counseling Been Provided? No [email or web address] Information not available 10/03/2020 How Many Years Have You Smoked Tobacco? 0 [email or web address] Information not available 07/17/2020 Sex: Male Functional Status Question Answer Note LastModified by Organizat ion Details LastModified Time Do you use any illicit or recreational drugs? No [email or web address] Information not available 10/03/2020 Do you or have you ever used any other forms of tobacco or nicotine? No [email or web address] Information not available 10/03/2020 What is your level of alcohol consumption? None Information not available 06/19/2020 Do you or have you ever used smokeless tobacco? Never used smokeless tobacco [email or web address] Information not available 07/17/2020 Are you currently employed? No [email or web address] Information not available 06/30/2023 Are you able to care for yourself? 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 Never used electronic cigarettes [email or web address] Information not available 07/17/2020 What is your exercise level? None [email or web address] Information not available 06/19/2020 Mental Status None recorded. Family History Relationship Description Onset Age of this Age Resolved Age Notes LastModified by Organization Details LastModified Time Mother Blood coagulation disorder [email or web address] Not available 2020 11:46:13 Mother Myocardial infarction Not available 06/19 11:46:44 Mother Cerebrovascu lar accident [email or web address] Not available 11:46:56 Mother Disorder of thyroid gland Not available 2020 11:47:03 Mother Complication of anesthesia [email or web address] Not available 02/05 13:08:57 Mother Heart disease [email or web address] Not available 2021 13:09:17 Mother Hypertensive disorder [email or web address] Not available 2021 13:09:28 Mother Diabetes mellitus [email or web address] Not available 2021 13:09:45 Brother Malignant melanoma Not available 2020 11:46:32 Brother Myocardial infarction [email or web address] Not available 06/19 11:46:48 Brother Disorder of thyroid gland [email or web address] Not available 2021 13:09:03 Sister Heart disease [email or web address] Not available 2021 13:09:17 Sister Hypertensive disorder [email or web address] Not available 2021 13:09:28 Sister Diabetes mellitus [email or web address] Not available 2021 13:09:45 Medical History Condition Response Coronary Artery Disease Y Gout Y Other N Atrial Fibrillation N Kidney Stones Y Hyperthyroidism N Blood Transfusion Y Emphysema N COPD N Depression N Pneumonia Y Anxiety Disorder Y Muscle, Joint, or Bone Problems Y Vision or Eye Problems Y Arthritis Y Polyps N Infertility N Blood Clot N Acid Reflux (GERD) Y Cancer N Varicosities N Stroke N Rheumatoid Arthritis N Fibromyalgia N Headaches Y Kidney Disease Y Heart Problems Y Ear or Hearing Problems Y Hospitalizations Y Eating Disorder N Skin Problems N Constipation Y Bleeding Disorder Y Tuberculosis N Asthma N GERD/Reflux Y Hepatitis N Pulmonary Embolism N Chronic Ear Infections Y Chicken Pox N Thrombophilias N Lung Disease Y Hypothyroidism Y Breast Problem N Difficulty Swallowing Y Anesthesia Complications N Meniere's disease N Endometriosis N Bladder or Kidney Problems Y High Cholesterol Y Liver Disease N Allergies/Hayfever Y Parkinson's Disease N Alzheimer's N Thyroid Problems Y GI Problems N Anemia Y Mental Illness N Diabetes Y Ovarian Cancer N Seizures/Epilepsy N Eczema N Diverticulitis Y Reflux/GERD Y Sleep Apnea Y Heart Disease Y Pre-Eclampsia N Hypertension Y Osteoporosis Y Immunizations Vaccine Type Date Status Note Provider Nam e and Address Organization Details Recorded Time Influenza, high-dose, quadrivalent, PF 1 completed Madyson Pinto [facility] 12/19/2020 10:31:45 Influenza, high-dose, quadrivalent, PF 2 completed EVANGELINA [place] DO [address] [place], [address], [facility] 12/21/2021 14:25:14 Influenza, high-dose, quadrivalent, PF 3 completed EVANGELINA [place] DO [address] [place], [address], [facility] 12/01/2022 15:39:31 COVID-19 vaccine, vector-nr, rS-ChAdOx1, PF, 0.5 mL 1 completed Not Available [facility] 03/08/2023 14:48:10 COVID-19 vaccine, vector-nr, rS-ChAdOx1, PF, 0.5 mL 1 completed Not Available [facility] 03/08/2023 14:48:10 COVID-19, mRNA, LNP-S, PF, 50 mcg/0.5 mL 3 completed EVANGELINA [place] DO [address] [place], [address], [facility] 01/24/2023 09:42:50 RSV, recombinant, protein subunit RSVpreF, adjuvant reconstituted, 0.5 mL, PF 3 completed EVANGELINA [place] DO [address] [place], [address], [facility] 01/24/2023 09:42:50 COVID-19, mRNA, LNP-S, PF, 30 mcg/0.3 mL dose 1 completed Sabrina Curry [facility] 04/30/2022 12:55:14 Influenza, high-dose, trivalent, PF 4 completed EVANGELINA [place] DO [address] [place], [address], [facility] 01/26/2024 10:51:52 COVID-19, mRNA, LNP-S, PF, 50 mcg/0.5 mL 4 completed EVANGELINA [place] DO [address] [place] [address], [address], [facility] 01/26/2024 10:51:52 zoster recombinant 2 completed Sabrina Critchley [facility] 04/30/2022 12:55:13 zoster recombinant 2 [facility] 12:55:14 Influenza, adjuvanted, quadrivalent, PF 0 completed [facility] 04/30/2022 12:55:14 COVID-19, mRNA, LNP-S, PF, 30 mcg/0.3 mL dose 1 completed Sabrinamary Roweley [facility] 04/30/2022 12:55:14 COVID-19, mRNA, LNP-S, PF, 30 mcg/0.3 mL dose 1 completed Sabrina Curry [facility] 04/30/2022 12:55:14 [facility] 12:55:14 influenza, seasonal, intradermal, preservative free 9 [facility] 04/30/2022 12:55:14 influenza, seasonal, intradermal, preservative free 8 [facility] 04/30/2022 12:55:14 Past Encounters Encounter ID Performer Location Encounter Start Date Encounter Closed Date Diagnosis/Indication Diagnosis SNOMED-CT Code Diagnosis ICD10 Code Diagnosis Note [id number] EVANGELINA [place] DO [facility] [address] [place] [address] 06/19/2020 10:41:30 06/19/2020 13:08:43 Coronary arteriosclerosis 25728442 I25.10 s/p 5 vessel cabg 2000. Stenting x1 ~2016, x3 in 2018 Stable of late Erosive osteoarthrosis 182927584 M15.4 On plaquenil several years now with some slowing of erosive changes. Worse in hands/feet . Type 1 esme betes mellitus 24411039 E10.22 w/ diabetic nephropath y and retinopath y Most recent a1c 6.6 > 6.7 by report Continue current regimen and glucose monitoring History of coronary artery bypass grafting 490155086 Z95.1 as above Chronic ki dney disease stage 3 827118203 N18.30 Serous dawood tis media of left ear [id number] 062668 H65.92 Cont flonase. Will send augmentin bid x7d. If no improvemen t or worsening symptoms to call or RTC. Hypothyroidism 17216236 E03.9 stable, reports most recent testing normal. Cont synthroid [id number] JASON BURGOS PA-C CARDIOLOG Y [address] [place] [place] [address] 06/23/2020 09:59:12 06/23/2020 14:22:57 Dyspnea on exertion 31560594 R06.09 EKG reviewed. Findings discussed with the patient. No acute abnormalit ies noted. Vitals are stable and exam is unremarkab le. We'll request records from Dr. Lind cardiology in [facility] . schedule a Lexiscan Myoview to investigat e symptoms. Coronary arteriosclerosis 60305327 I25.10 On appropriat e medical management History of coronary artery bypass grafting 205031794 Z95.1 s/p CABG 2001 p CABG PCI [id number] EVANGELINA [place], [facility] [address] [place] [address] 06/23/2020 09:59:45 06/23/2020 15:27:05 Recurrent falls 118566863 R29.6 Suspect diabetic neuropathy contribute s to his falls although his most recent fall seems to be more mechanical in nature. With recurrence and frequent injury from his falls would recommend gait/james ce training. Would also recommend ENT evaluation with hearing changes and tinnitus. Dizziness 668099073 R42 as above Rib pain 523333633 R07.8 1 Low suspicion for fracture but pt requests imaging. Pain of wrist region 566 27147 M25.531 Follow-up with orthopedic s [id number] [place] [address] [place] [address] 06/25/2020 15:12:53 06/27/2020 16:01:28 Dizziness 724008953 R42 Does not appear to be peripheral vestibular in nature. This is likely multifacto rial from peripheral neuropathy and orthostati c hypotensio n of which his systolic blood pressure dropped 20 mmHg upon testing today. Agree with vestibular rehabilita tion which has already been arranged Chronic rhinitis 2999247 6 J31.0 Has a history of allergic rhinitis and did immunother apy for years without much benefit. Nasal endoscopy today was overall normal other than partial turbinecto my by another surgeon. CT sinus and follow-up after [id number] CINDY LABOY MD ENT [address] [place] [address] 07/22/2020 14:29:52 07/28/2020 09:38:53 Recurrent acute sinusitis 812460725 J01.[address] reviewed. No findings consistent with chronic sinusitis on imaging. Currently on good allergy pharmacoth erapy. Next option would be immunother apy which he has been on 20 years ago. He is currently on metoprolol also allergy testing and immunother apy would not be safe unless he can be changed from the beta-block er to another class of drug Allergic r hinitis caused by pollen 28840106 J30.1 [id number] JOHANA BARNEY MD [facility] [address] [place] [address] [address] [place] [address] 07/08/2020 09:26:16 07/08/2020 15:38:18 Dyspnea on exertion 96557650 R06.09 Coronary arteriosclerosis 71818901 I25.10 [id number] NAVA SPEAR APRN RHEUMATOL OGY [address] [place] [address] 07/17/2020 09:42:50 07/17/2020 11:10:48 Body mass index 30+ - obesity 190035309 Z68.31 Pain of mu ltiple joints 53832768 M25.50 chronic and recurring multiple joint pain and stiffnessw ith history of cppd on xrayswith increased swelling, tenderness and overall more fatiguewil l assess for overlap of RA with some mild synovitis in mcps on bilateral hands more suggestive of inflammati on rather than erosion aloneStart diclofenac 1 % topical gel 4 g 4 times a dayStart hydrOXYchl oroQUINE 200 mg tablet 2 tablets every dayStart acetaminop hen 300 mg-codeine 30 mg tablet 1 tablet every dayChange DULoxetine 60 mg capsule,de layed release from TAKE 2 CAPSULES BY MOUTH DAILY to 1 capsule 2 times a dayStart tiZANidine 4 mg tablet 1 tablet 2 times a day Erosive osteoarthrosis 740905569 M15.4 per xraysStart diclofenac 1 % topical gel 4 g 4 times a dayStart hydrOXYchl oroQUINE 200 mg tablet 2 tablets every dayStart acetaminop hen 300 mg-codeine 30 mg tablet 1 tablet every dayChange DULoxetine 60 mg capsule,de layed release from TAKE 2 CAPSULES BY MOUTH DAILY to 1 capsule 2 times a dayStart tiZANidine 4 mg tablet 1 tablet 2 times a day Calcium py rophosphate deposition disease 221836845 M11.80 per xrays Gout 76020940 M10.9 long history of gout as well as pseudogout will have him maintain allopurino l 100 mg daily Chronic low back pain 27 7182648 M54.5 Pain of bi lateral hands 7201011518 4094833 M79.641 M79.642 Muscle weakness 62281903 M62.81 [id number] JASON BURGOS PA-C CARDIOLOG Y [address] [place] [address] 08/12/2020 08:13:22 08/12/2020 10:30:50 Abnormal results of cardiovascular function studies 905227799 R94.30 results reviewed with the patient. Will schedule cardiac catheteriz ation in light of anticipate d back surgery and persistent symptoms of exertional dyspnea Coronary arteriosclerosis 42920491 I25.10 continued exertional dyspnea despite increasing metoprolol . We'll add Imdur 30 mg daily. The patient is scheduled for neurosurge ry evaluation , may be facing surgery. he would demonstrat e moderate surgical risk and therefore patient has agreed to move forward with cardiac catheteriz ation. he does have stage III CK D, creatinine 1.29 GFR 57. VIV discussed with the patient. He will get a renal prep with cardiac catheteriz ation. He verbalized understand ing and is agreeable to proceed. 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 I had a lengthy discussion with patient about the importance of dietary carbohydra te consistenc y and restrictio n and not exceed 60 g of carbohydra te per meal and 15 30 grams per snack if needed. I had a detailed discussion with him about his pump printouts, sensor data which are showing severe due to fluctuatin g blood glucose readings between severe hyperglyce maria eugenia and hypoglycem ia mainly post prandial due to stacking of insulin and improper timing of his insulin bolus dosing before his meals. At this point I recommende d to continue current insulin pump settings.B lood pressure at goal of less than 140/90 [120/160 the office] Continue current lisinopril therapy Most recent GFR of 57 LDL of 68 on rosuvastat in therapy Hypoglycem ia due to type 1 diabetes mellitus 7621128313 9108 E10.649 Hypoglycem ia symptom recognitio n with patient Peripheral neuropathy due to type 1 diabetes mellitus 7703497633 9104 E10.40 10 g monofilame nt testing his bilateral diminished in the office today Skin atrophic changes of peripheral diabetic neuropathy Foot care discussed with patient Continue to follow with podiatry Dr. Chinchilla in [place] Hypothyroidism 46424940 E03.9 Appears a clinically euthyroidT SH of 2.45 Continue current levothyrox ine therapy 125 g every a.m. Patient verbalized understand ing and agreed with the above mentioned plan of care. [id number] EVANGELINA [place], [facility] [address] [place] [address] 09/18/2020 09:53:27 09/18/2020 12:26:23 Coronary arteriosclerosis 45805719 I25.10 s/p 5 vessel cabg 2000. Stenting x1 ~2016, x3 in 2018 Heart catheteriz ation 08/18/2020 revealed severe CAD involving the left anterior descending , diagonal and obtuse marginal arteries.P atent SV graftsLVEF 55%Continu ing medical management . Upcoming cardiology f/u Type 1 esme betes mellitus 56239520 E10.22 w/ diabetic nephropath y and retinopath y Most recent a1c 7.0 in August 2020Follow ing with endocrinol tahir, Dr Parra Continue current regimen and glucose monitoring History of calculus of kidney 402686727 Z87.442 Passed stone 10d ago, no gross hematuria. Now urinating normally and pain free.Hx of several stones, all cleared spontaneou sly, previously followed with Dr Rowland in [place] , [place] History of actinic keratosis 8609304683 104 Z87.2 Hx of [place] treated in [place] . No hx SCC/BCC/me lanoma.Req uests dermatolgy referral for follow up Snoring 02281357 R06.83 almost certainly has sleep apnea, recommend evaluation and treatment Carpal jayne anila syndrome 87210494 G56.03 States he would not be interested immediatel y in surgery but has significan t pain and numbness in hands which is multifacto ral. Has tried and failed nocturnal braces. Requests hand surgery evaluation . Would also potentiall y need further evaluation for cervical myelopathy [id number] TRISH MAYNARD MD ORTHOPEDI [address] [place] [address] 09/26/2020 08:33:53 09/26/2020 13:09:49 Arthritis of hand 600562019 M13.841 M13.842 Diffuse arthritic changes throughout the hand including severe changes within the bilateral long greater than index finger DIP joints with resultant clinical deformitie s. Osteoarthr osis of the carpometacarpal joint of the thumb 80954201 M18.11 M18.12 Severe erosive right thumb Eaton stage III CMC joint arthritis and moderate left thumb Eaton stage II/III CMC joint arthritis Carpal jayne anila syndrome 97362721 G56.02 G56.01 EMG/NCV (07/10/20) demonstrat ed severe bilateral tunnel syndrome and moderate bilateral ulnar neuropathi es at or near the wrist. 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 [id number] JASON BURGOS PA-C CARDIOLOG Y [address] ,[address] [place] [address] 10/01/2020 09:40:22 10/01/2020 11:02:09 Coronary arteriosclerosis 76297994 I25.10 recent cardiac catheteriz ation studies reviewed. Patient is reassured. On appropriat e medical management . For now will continue dual antiplatel et therapy due to cabazon CAD. Okay to withhold aspirin and Plavix 10 days prior to upcoming surgeries. Resume one day after surgery. He demonstrat es acceptable surgical risk from cardiac standpoint . [id number] XAVIER ISABEL MD [facility] [address] ,[address] [place] [address] 10/03/2020 13:48:15 10/16/2020 08:32:21 Kidney stone 46076083 N20.0 Renal colic 9758648 N23 [id number] NAVA SPEAR APRN RHEUMATOL OGY [address] [place] [address] 10/16/2020 10:31:02 10/16/2020 14:00:03 Pain of multiple joints 80990717 M25.50 chronic and recurring multiple joint pain and stiffnessw ith history of cppd on xrayswith increased swelling, tenderness and overall more fatiguewil l assess for overlap of RA with some mild synovitis in mcps on bilateral hands more suggestive of inflammati on rather than erosion aloneStart diclofenac 1 % topical gel 4 g 4 times a dayStart hydrOXYchl oroQUINE 200 mg tablet 2 tablets every dayStart acetaminop hen 300 mg-codeine 30 mg tablet 1 tablet every dayChange DULoxetine 60 mg capsule,de layed release from TAKE 2 CAPSULES BY MOUTH DAILY to 1 capsule 2 times a dayStart tiZANidine 4 mg tablet 1 tablet 2 times a day Calcium py rophosphate deposition disease 185647988 M11.80 per xrays Erosive osteoarthrosis 981637894 M15.4 per xraysStart diclofenac 1 % topical gel 4 g 4 times a dayStart hydrOXYchl oroQUINE 200 mg tablet 2 tablets every dayStart acetaminop hen 300 mg-codeine 30 mg tablet 1 tablet every dayChange DULoxetine 60 mg capsule,de layed release from TAKE 2 CAPSULES BY MOUTH DAILY to 1 capsule 2 times a dayStart tiZANidine 4 mg tablet 1 tablet 2 times a day Gout 26405421 M10.9 long history of gout as well as pseudogout will have him maintain allopurino l 100 mg daily Body mass index 30+ - obesity 637989116 Z68.31 Chronic low back pain 27 3787718 M54.5 with severe degenerati on of the l3, l4 and l5/s1 vertebraew ith decreased disc and neural openings Pain of bi lateral hands 2625276027 8583930 M79.[address] Hatfield re oa and CTSsurgica l interventi on soon Muscle weakness 83000548 M62.81 normal ck and mag [id number] MO HARRINGTON-Claudia NEUROSURG DANIELALuis Alfredo CARCAMO [facility] [address] [place] [address] 10/23/2020 08:37:44 10/23/2020 10:19:59 Lumbar spondylolisthesis 2112098699 72631 M43.16 Patient is a 64-year-ol d male being seen today as a consult from referring provider Nava Spear. for discussion of lumbar pain that has been present for 15+ years. Has a history of CABG 5, diabetes with an insulin pump as well as 4 different types of arthritis. Pain returns diffusely across the lumbar spine, right worse than left. No radiation of pain into the lower extremitie s but does have numbness and tingling in both legs and feet as well as weakness in the legs. He did physical therapy 6 months ago for roughly 8 weeks multiple times a week. This did not provide relief. Has never seen a pain management doctor. Reviewed the case and imaging with Dr. broussard. MRI does show mild spondyloli sthesis of L4 over L5. The most significan t finding was severe arthritic changes throughout the lumbar spine which we expected from his medical history. At this time because of the MRI findings as well as the patient's main complaint of nonradiati ng back pain, we are not recommendi ng surgery. We would like to further work this up with flexion extension lumbar x-rays to make sure there is no instabilit y. If there is instabilit y we would consider a 1 level lumbar fusion on this patient. Discussed this with him and length and he understand s. We will call him with the imaging results and if there is anything we see on the x-rays or the other MRIs we plan to order we will call him to let him know if he needs to come back. Otherwise we'll be sending him to pain management with Dr. Hamilton for epidural injections . He has to call with any questions and is happy with this plan. The patient was seen by myself and Patient had a lumbar MRI without contrast from [facility] from 07/31/20. He brought the disc with him. Showed mild spondyloli sthesis of L4 over L5. Showed severe arthritic changes throughout the lumbar spine. Did not show any significan t foraminal or central canal stenosis at any level. Cervical radiculopathy 70652274 M54.12 Also reports some right-side d neck pain that goes into the right shoulder. Numbness and tingling in the middle fingers in bilateral upper extremitie s. No weakness in the arms were trouble with dexterity. Says the low back pain is more bothersome than the cervical pain.As reported above we do not plan to do surgery on this patient at this time but because of his weakness and frequent falls and would also like to evaluate to make sure he does not have any spinal cord compressio n in the cervical or thoracic spine. We will be ordering a cervical and thoracic MRI without contrast to further evaluate for this. We'll call the patient if he see anything concerning . [id number] TRISH MAYNADR MD SURGERY SCHEDULE [address] [place] [address] 11/03/2020 06:19:34 11/03/2020 06:21:05 [id number] JOSE ANDERSON MD DERMATOLO [facility] [address] [place] [address] 11/07/2020 13:28:25 11/07/2020 14:02:23 Neoplasm of uncertain behavior of skin 61366451 D48.5 Left lower knee has a 1 inch oval pink dermal thickening - non tender - ? biopsy in the past - Will send for records - Susan [place] Left medial knee - Education, thenshave removaland base destroyed with electrodes sication. 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 No severe hypoglycem ia. Continue current dietary carbohydra te consistenc y and restrictio n and not exceed 60 g of carbohydra te per meal and 15 30 grams per snack if needed. At this point I recommende d to continue current insulin pump settings.B lood pressure at goal of less than 140/90 [120/160 the office] Continue current lisinopril therapy Most recent GFR of 57 LDL of 68 on rosuvastat in therapy [id number] CITLALI SIMPSON PA-C ORTHOPEDI [facility] [address] [place] [address] 11/18/2020 11:02:57 11/18/2020 11:27:50 Carpal tunnel syndrome 90308677 G56.01 EMG/NCV (07/10/20) demonstrat ed severe bilateral tunnel syndrome and moderate bilateral ulnar neuropathi es at or near the wrist. s/p Left cubital tunnel release in-situ; Left endoscopic carpal tunnel release (DOS: 11/03/20) Cubital tu nnel syndrome 05898611 G56.21 EMG/NCV (07/10/20) disease demonstrat ed severe bilateral tunnel syndrome and moderate bilateral ulnar neuropathi es at or near the wrist. s/p Left cubital tunnel release in-situ; Left endoscopic carpal tunnel release (DOS: 11/03/20) Arthritis of hand 542742 005 M13.841 M13.842 Diffuse arthritic changes throughout the hand including severe changes within the bilateral long greater than index finger DIP joints with resultant clinical deformitie s. Osteoarthr osis of the carpometacarpal joint of the thumb 34598324 M18.11 M18.12 Severe erosive right thumb Eaton stage III CMC joint arthritis and moderate left thumb Eaton stage II/III CMC joint arthritis [id number] JASON BURGOS PA-C CARDIOLOG Y [facility] [address] [facility] [place] [address] 12/16/2020 12:54:59 12/17/2020 08:17:01 Coronary arteriosclerosis 91442312 I25.10 recent cardiac catheteriz ation studies reviewed. Patient is reassured. On appropriat e medical management . For now will continue dual antiplatel et therapy due to cabazon CAD. Okay to withhold aspirin and Plavix 10 days prior to upcoming surgeries. Resume one day after surgery. He demonstrat es acceptable surgical risk from cardiac standpoint . [id number] TRISH MAYNARD MD ORTHOPEDI CS [facility] CL[facility] [address] [place] [address] 12/16/2020 15:00:24 12/16/2020 16:55:00 Carpal tunnel syndrome 57002412 G56.01 EMG/NCV (07/10/20) demonstrat ed severe bilateral tunnel syndrome and moderate bilateral ulnar neuropathi es at or near the wrist. Previously s/p Left cubital tunnel release in-situ; Left endoscopic carpal tunnel release (DOS: 11/03/20) Cubital tu nnel syndrome 12492492 G56.21 EMG/NCV (07/10/20) disease demonstrat ed severe bilateral tunnel syndrome and moderate bilateral ulnar neuropathi es at or near the wrist. Previously s/p Left cubital tunnel release in-situ; Left endoscopic carpal tunnel release (DOS: 11/03/20) Arthritis of hand 388141 005 M13.841 M13.842 Diffuse arthritic changes throughout the hand including severe changes within the bilateral long greater than index finger DIP joints with resultant clinical deformitie s. Osteoarthr osis of the carpometacarpal joint of the thumb 76905115 M18.11 M18.12 Severe erosive right thumb Eaton stage III CMC joint arthritis and moderate left thumb Eaton stage II/III CMC joint arthritis Postoperative care 87844 9007 Z48.89 6 weeks s/p Left cubital tunnel release in-situ; Left endoscopic carpal tunnel release (DOS: 11/03/20) [id number] EVANGELINA HOUSTON DO [facility] [address] [place] [address] 12/19/2020 09:40:03 12/19/2020 10:57:47 Coronary arteriosclerosis 80180919 I25.10 s/p 5 vessel cabg 2000. Stenting x1 ~2016, x3 in 2018 Heart catheteriz ation 08/18/2020 revealed severe CAD involving the left anterior descending , diagonal and obtuse marginal arteries.P atent SV graftsLVEF 55%Continu ing medical management and cardiology f/u Type 1 esme betes mellitus 64517232 E10.22 w/ diabetic nephropath y and retinopath y Most recent a1c 6.6Followi ng with endocrinol ogy, Dr Parra Continue current regimen and glucose monitoring Adult heal th examination 744446580 Z00.00 Patient presented to office today for their Medicare Annual Wellness Visit.Well ness visit Questionna milton was reviewed and will be scanned into medical record.Dep ression screening was negative and no followup plan is needed.Edu cation was provided on healthy nutrition, including a diet rich in fruits and vegetables , minimizing simple carbohydra gabe, salt, and saturated fats. Encouraged regular cardiovasc ular exercise such as walking with goal of at least 30 minutes daily, 5 times per week.Empha sized preventive health measures and educated pt on fall prevention and community- based lifestyle interventi ons to help reduce health risks and promote healthy living. Colonoscop y 2016, recommende d 10y follow up Calcium py rophosphate deposition disease 979775429 M11.80 on hydroxychl oroquineco nt rheum f/u Chronic ki dney disease stage 3 336852807 N18.30 Stable. Referred 06/2020 to nephrology . No records yet received from neph associates . Hypothyroidism 76900732 E03.9 stable, Cont synthroid Administra tion of influenza vaccine 25131160 Z23 Dysphagia 80282662 R13.1 0 Recommend GI evaluation /EGD Poor short -term memory 918561804 R41.3 MMSE 30/30. Will check b12/tsh. Patient requests neurology referral. Minimal cognitive impairment . Specialize d medical examination 22993421 Z01.89 Screening for malignant neoplasm of prostate 253772696 Z12.5 [id number] HILARIA ANGEL PA-C PULMONARY [address] [facility], [address] [place], [place] [address] 12/24/2020 15:21:40 12/25/2020 08:42:41 Snoring 96450802 R06.83 Patient will be scheduled for a sleep study to evaluate for MICAELA. We discussed MICAELA and CPAP in detail. We discussed the importance of weight loss and the treatment of MICAELA. I will call patient with sleep study result. [id number] KP LIANG MD GASTRO SB [address] [facility], [address] [place], [place] [address] 01/06/2021 14:21:27 01/07/2021 07:16:53 Esophageal dysphagia 75977955 R13.19 At risk for Barretts or cancer. 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 [id number] HILARIA ANGEL PA-C SLEEP CENTER SB [address] [facility], [address] [place] [address] 01/09/2021 13:43:11 01/09/2021 13:43:27 [id number] NAVA SPEAR APRN RHEUMATOL OGY SB [address] [place] [address] 1 01/15/2021 10:33:41 01/15/2021 12:51:09 Calcium pyrophosphate deposition disease 030147543 M11.80 per xrays Erosive osteoarthrosis 534453391 M15.4 per xraysmaint ain diclofenac 1 % topical gel 4 g 4 times a daymaintai n hydrOXYchl oroQUINE 200 mg tablet 2 tablets every dayChange DULoxetine 60 mg capsule,de layed release from TAKE 2 CAPSULES BY MOUTH DAILY to 1 capsule 2 times a daymaintai n tiZANidine 4 mg tablet 1 tablet 2 times a day Gout 07271747 M10.9 long history of gout as well as pseudogout will have him maintain allopurino l 100 mg daily Chronic low back pain 27 2256169 M54.50 with severe degenerati on of the l3, l4 and l5/s1 vertebraew ith decreased disc and neural openingscu rrently taking stronger pain medication and is going to have rfi done Pain of bi lateral hands 7140990502 4830130 M79.[address] 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 No severe hypoglycem ia. Continue current dietary carbohydra te consistenc y and restrictio n and not exceed 60 g of carbohydra te per meal and 15 30 grams per snack if needed. At this point I recommende d to continue current insulin pump settings.B lood pressure at goal of less than 140/90 [104/60 the office]Con tinue current lisinopril therapy Most recent GFR of 57LDL of 68 on rosuvastat in therapyDrMiguel nAdersen in [place] [employer] [id number] HILARIA ANGEL PA-C PULMONARY [address] [facility], [address] [place] [address] 03/03/2021 15:56:23 03/03/2021 16:42:05 Obstructive sleep apnea of adult 0159238527 103 G47.33 Discussed sleep study in detail. CPAP treatment is recommende d. Patient agrees to start CPAP. This will be ordered. Patient will call office to schedule follow up after obtaining CPAP. Health risks including cardiac risks of untreated MICAELA have been discussed. [id number] CHAVA TROY MD NEUROLOGY SB CLOSED [address] [place] [address] 03/10/2021 10:23:15 03/10/2021 11:48:19 Minimal cognitive impairment 914083064 G31.84 [id number] EVANGELINA HOUSTON, [facility] [address] [place] [address] 04/09/2021 13:04:59 04/09/2021 14:59:07 Chronic sinusitis 20426471 J32.9 Symptoms consistent with maxillary sinusitis, history of same although most recent evaluation in July did not show evidence of active sinusitis. Previously has considered immunother apy.Report s 1 episode in the fall since he last saw Dr. Laboy. We will treat with Augmentin. Patient request prednisone to aid with pressure, congestion and headache symptoms. Advised that with his diabetes he will need to pay particular attention which he understand s and is in agreement with. Also discussed that steroids will likely not expedite his recovery but may help with symptoms.P atient to call if any new or worsening symptoms Offered Covid testing but given duration of patient's symptoms unlikely to be the case and even if he had had Covid he would be outside window of infectivit y but now. Cough 72149784 R05.9 As above [id number] NAVA SPEAR APRN RHEUMATOL OGY SB [address] [place] [address] 04/16/2021 09:07:41 04/16/2021 14:22:01 Erosive osteoarthrosis 199961010 M15.4 per xraysmaint ain diclofenac 1 % topical gel 4 g 4 times a daymaintai n hydrOXYchl oroQUINE 200 mg tablet 2 tablets every dayChange DULoxetine 60 mg capsule,de layed release from TAKE 2 CAPSULES BY MOUTH DAILY to 1 capsule 2 times a daymaintai n tiZANidine 4 mg tablet 1 tablet 2 times a daywill provide with refills and Calcium py rophosphate deposition disease 146216204 M11.80 per xrays Gout 41309942 M10.9 long history of gout as well as pseudogout will have him maintain allopurino l 100 mg daily Chronic low back pain 27 4352968 M54.50 with severe degenerati on of the l3, l4 and l5/s1 vertebraew ith decreased disc and neural openingscu rrently taking stronger pain medication and is going to have rfi done Pain of bi lateral hands 9820733250 8927696 M79.[address] 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 No severe hypoglycem ia. Continue current dietary carbohydra te consistenc y and restrictio n and not exceed 60 g of carbohydra te per meal and 15 30 grams per snack if needed.At this point I recommende d to continue current insulin pump settings. Blood pressure at goal of less than 140/90 [136/70 the office]Con tinue current lisinopril therapy Most recent GFR of 57LDL of 68 on rosuvastat in therapyDr. Ganesh in [place] [employer] Hypothyroidism 64706420 E03.9 Appears a clinically euthyroidT SH of 2.7 Continue current levothyrox ine therapy 125 g every a.m. Patient verbalized understand ing and agreed with the above mentioned plan of care. [id number] XAVIER ISABEL MD [facility] [address] ,[address] [place] [address] 05/13/2021 12:53:00 05/15/2021 22:02:28 Benign prostatic hyperplasia with outflow obstruction 891055187 N40.1 Kidney stone 69236846 N2 0.0 [id number] EVANGELINA HOUSTON, [facility] [address] [place] [address] 05/13/2021 14:05:12 05/13/2021 15:31:25 Cellulitis of lower limb 255896462 L03.119 Patient directed to orthopedic s walk-in for evaluation . Likely needs I&D but depending on extent of involvemen t could conceivabl y need more invasive treatment. Continue clindamyci n. We will request records from [facility] for review Type 1 esme betes mellitus 57248590 E10.22 w/ diabetic nephropath y and retinopath y Most recent a1c 6.8Followi ng with endocrinol Dr Aida haro Continue current regimen and glucose monitoring [id number] JUANY GREENBERG ORTHOPEDI CS [facility] [address] [place] [address] 05/13/2021 15:02:56 05/13/2021 16:04:40 Cellulitis of left knee 1646031190 1977952 L03.116 Infrapatel lar bursitis of left knee 913145408 M70.52 Abscess of skin and/or subcutaneous tissue 47892679 L02.91 [id number] JOSR PASTOR MD ORTHOPEDI [facility] [address] [place] [address] 05/18/2021 09:04:32 05/18/2021 09:58:22 Prepatellar bursitis of left knee 9043736667 11864 M70.42 Mr Gold has had recent recurrence of septic prepatella r bursitis with prior history of symptoms over the past 5 years. I recommend consultati on with infectious disease. [id number] JOSR PASTOR MD ORTHOPEDI [facility] [address] [facility] [place] [address] 06/03/2021 09:13:23 06/03/2021 09:42:11 Prepatellar bursitis of left knee 9752996581 09823 M70.42 Mr Gold has had recent recurrence of septic prepatella r bursitis with prior history of symptoms over the past 5 years. I recommende d consultati on with infectious disease. Following consultati on with Dr Velasco the current plan is for Mr Gold to have a PICC line placed and have home infusion therapy for antibiotic s prescribed by Dr Velasco. I discussed risks of open irrigation and debridemen t of the left prepatella r bursa to include:In fectionSti ffnessNerv e or blood vessel injuryFail ure of repair Christiane-opera tive problems (medical/a nesthesiaD VT, PE, Need for blood productsPo ssible need for additional surgeriesP atient is considerin g surgery. If patient elects to schedule surgery, controlled medication will be prescribed for post-op pain control. The risks and benefits of this type of medication were also discussed. After thorough discussion risks, benefits and alternativ e treatments , patient requests to proceed with surgery as outlined above. [id number] JOSR PASTOR MD SURGERY SCHEDULE [address] [place] [address] 06/09/2021 06:57:25 06/09/2021 06:58:16 Postoperative care 773032867 Z48.89 Postoperative pain 14081 9007 G89.18 [id number] JOSR PASTOR MD ORTHOPEDI [facility] [address] [place] [address] 06/17/2021 14:22:43 06/17/2021 15:07:27 Postoperative care 021037823 Z48.89 Mr Gold has had no worsening symptoms following recent I&D of chronic septic bursitis. I recommend continued protection of the knee from trauma and continued antibiotic treatments per infectious disease. [id number] EVANGELINA HOUSTON, [facility] [address] [place] [address] 06/19/2021 10:15:55 06/19/2021 10:57:27 Type 1 diabetes mellitus 81384864 E10.22 w/ diabetic nephropath y and retinopath y Most recent a1c 6.8Followi ng with endocrinol tahir, Dr Parra Continue current regimen and glucose monitoring Hypothyroidism 29001060 E03.9 stable, Cont synthroid Chronic ki dney disease stage 3 780642429 N18.30 Stable. Referred 06/2020 to nephrology . No records yet received from neph associates . Obstructiv e sleep apnea syndrome 62493389 G47.33 Still adjusting to CPAP, started ~05/2021.Di scussed his sleep difficulti es and expect that as he adjusts to CPAP use much of this will improve. Could consider adjustment of his trazodone or other medication changes to help with racing thoughts and sleep onset troubles but for now would recommend monitoring . Infection of prepatellar bursa of right knee 4557559184 823758 M71.161 Should finish antibiotic s next Tuesday assuming all continues to go well. Continue follow-up with Drs. Pastor and Krista. Call if any concerns Low blood pressure 53262 003 I95.9 Blood pressure in office is quite low although he is entirely asymptomat ic. Has not eaten or drank much yet this morning. Would encourage he monitor blood pressures at home and call if any concerns. [id number] JASON BURGOS PA-C CARDIOLOG Y [address] ,[address] [place] [address] 06/23/2021 09:18:12 06/23/2021 11:20:42 Overweight 932388224 E66.3 Low blood pressure 62879 003 I95.9 Patient describes symptoms of low stamina fatigue. EKG does reveal mild bradycardi a. When compared to previous EKGs and review of his vital signs his average heart rate usually runs 75-80. There have been no changes in his beta-block er dosing recently. Blood pressures are running average 90 systolic. Ivanz which he is currently receiving for his knee infection can cause hypotensio n. I recommende d reducing Imdur to 15 mg daily and metoprolol down to 25 mg daily and then follow-up in 2 weeks. [id number] JOSR PASTOR MD ORTHOPEDI CS [facility] [address] [place] [address] 07/08/2021 09:11:44 07/08/2021 09:36:27 Postoperative care 364599538 Z48.89 Mr Asif has had no worsening symptoms following recent I&D of chronic septic bursitis. I recommend continued protection of the knee from trauma and continued antibiotic treatments per infectious disease. [id number] EVANGELINA HOUSTON DO [facility] MED[facility]INE [address] [facility] [place] [address] 07/21/2021 13:20:44 07/21/2021 15:18:50 Type 1 diabetes mellitus 85342035 E10.22 w/ diabetic nephropath y and retinopath yPatient to call back with name of test strips needed for manual glucometer as backup. Insulin pump and sensor now functionin g properly. Most recent a1c 6.8Followi ng with endocrinol ogyDr Parra Continue current regimen and glucose monitoring Pneumonia 869026677 J18. 9 Recommend continue doxycyclin e to complete 5 to 7 days therapy. We will send to pharmacy.L LL PNA, rec CXR f/u next week to assess resolution . Chronic ki dney disease stage 3 892852100 N18.30 Baseline creatinine 1.2-1.3 with EGFR ~56Continu e to monitor and follow-up with nephrology Iron defic iency anemia 51956015 D50.9 hx of SHARAN, previously followed with [facility] [place], last colonoscop y around 2018.Recom mend follow-up given significan t drop from baseline [id number] JASON BURGOS PA-C CARDIOLOG Y [address] [place] [address] 07/27/2021 08:42:19 07/27/2021 15:18:36 Overweight 646802302 E66.3 Low blood pressure 35812 003 I95.9 Hospital log reviewed. Patient remains hypotensiv e. Will transition off metoprolol titrate onto metoprolol succinate 12.5 mg 1 daily at bedtime. Continue all other same medication s. Labs and x-ray pending. 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 recently hospitaliz ed for severe anemia and was found to have severe hyperglyce maria eugenia. Also has 2 weeks. Off his HCL No severe hypoglycem ia. Continue current dietary carbohydra te consistenc y and restrictio n and not exceed 60 g of carbohydra te per meal and 15 30 grams per snack if needed. Basal rate changes: 12 AM: 0.6 units per hour 3 AM: 1.2 units per hour Total basal rate up to 33.15 Continue rest of insulin pump settings Blood pressure at goal of less than 140/90 [136/70 the office]Juanjose quiroga current lisinopril therapy Most recent GFR of 57LDL of 68 on rosuvastat in therapyDrMiguel Andersen in [place] [employer] Hypothyroidism 62664401 E03.9 Appears a clinically euthyroidT SH of 2.7 Continue current levothyrox ine therapy 125 g every a.m. Patient verbalized understand ing and agreed with the above mentioned plan of care. [id number] NAVA SPEAR APRN RHEUMATOL OGY [address] [place] [address] 08/17/2021 07:56:06 08/17/2021 16:32:35 Erosive osteoarthrosis 622878480 M15.4 per xraysmaint ain diclofenac 1 % topical gel 4 g 4 times a daymaintai n hydrOXYchl oroQUINE 200 mg tablet 2 tablets every dayChange DULoxetine 60 mg capsule,de layed release from TAKE 2 CAPSULES BY MOUTH DAILY to 1 capsule 2 times a daymaintai n tiZANidine 4 mg tablet 1 tablet 2 times a daywill provide with refills and Bilateral tendinitis of hands 4332011872 9594473 M67.843 with severe deformitie swill provide with injections today in between the right 2nd and 3rd mcps Calcium py rophosphate deposition disease 726042558 M11.80 per xrays [id number] EVANGELINA HOUSTON, [facility] [address] [facility] [place] [address] 09/28/2021 08:12:11 09/28/2021 09:38:05 COVID-19 681929165 U07.1 Discussed natural course of this condition and recommend supportive care including rest and maintainin g adequate hydration. May continue OTC cough/cold medication s. Should isolate from others until released, continue mask use, social distancing and good hand hygiene. Discussed isolation requiremen ts including 5 days with improved symptoms or longer if symptoms not improved. Monitor for new or worsening symptoms including chest pain, pressure, shortness of breath. Indication s for emergent evaluation reviewed. Call if any concerns Discussed indication s risks and benefits of antivirals . Based on their risk factors including kidney disease, type 1 diabetes, CAD they qualify for and are interested in treatment. Nate camargo not a candidate for Paxil bid due to chronic colchicine useWill attempt to get Molnupirav ir for him. Chronic ki dney disease stage 3 200354731 N18.30 Baseline creatinine 1.2-1.3 with EGFR ~56Continu e to monitor and follow-up with nephrology Type 1 esme betes mellitus 82712085 E10.22 w/ diabetic nephropath y and retinopath yPatient to call back with name of test strips needed for manual glucometer as backup. Insulin pump and sensor now functionin g properly. Most recent a1c 6.8Followi ng with endocrinol Dr Aida haro Continue current regimen and glucose monitoring Coronary arteriosclerosis 03308614 I25.10 s/p 5 vessel cabg 2000. Stenting x1 ~2016, x3 in 2018 Heart catheteriz ation 08/18/2020 revealed severe CAD involving the left anterior descending , diagonal and obtuse marginal arteries.P atent SV graftsLVEF 55%Continu ing medical management and cardiology f/u [id number] NAVA SPEAR APRN RHEUMATOL OGY SB [address] [place] [address] 10/15/2021 08:41:17 10/15/2021 10:29:14 Erosive osteoarthrosis 921255847 M15.4 per xraysmaint ain diclofenac 1 % topical gel 4 g 4 times a daymaintai n hydrOXYchl oroQUINE 200 mg tablet 2 tablets every dayChange DULoxetine 60 mg capsule,de layed release from TAKE 2 CAPSULES BY MOUTH DAILY to 1 capsule 2 times a daymaintai n tiZANidine 4 mg tablet 1 tablet 2 times a daywill provide with refills Gout 53538126 M10.9 long history of gout as well as pseudogout will have him maintain allopurino l 100 mg daily Calcium py rophosphate deposition disease 119074947 M11.80 per xrays Chronic low back pain 27 6219644 M54.50 with severe degenerati on of the l3, l4 and l5/s1 vertebraew ith decreased disc and neural openingscu rrently taking stronger pain medication and is going to have rfi donewill provide with 120 mg IM steroid injections Pain of bi lateral hands 5593120972 7220403 M79.[address] Hatfield re oa and CTSsurgica l interventi on soon, had CTS on left but not on the right Muscle weakness 02117153 M62.81 normal ck and mag Body mass index 30+ - obesity 246008496 Z68.31 Bilateral tendinitis of hands 5503283898 5210640 M67.843 with severe deformitie sno need for injections todaymaint ain with hand surgeon [id number] JASON BURGOS PA-C CARDIOLOG Y [address] [place] [address] 10/22/2021 13:09:11 10/22/2021 14:35:59 Overweight 966352636 E66.3 Low blood pressure 05850 003 I95.9 Blood pressures improved with medication adjustment s. No other changes today. Encouraged hydration. Continue all same medication s and follow-up in 6 months Coronary arteriosclerosis 05226061 I25.10 recent cardiac catheteriz ation studies reviewed. Patient is reassured. On appropriat e medical management . For now will continue dual antiplatel et therapy due to cabazon CAD. Okay to withhold aspirin and Plavix 10 days prior to upcoming surgeries. Resume one day after surgery. He demonstrat es acceptable surgical risk from cardiac standpoint . 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 No evidence to suggest underlying infection. Possible insulin pump malfunctio n. At present, I recommend to call [facility] emergency support For help regarding any technical issues related to his insulin pump and possible replacemen t. I also recommende d to check his blood glucose at least 5 times daily before meals and at bedtime. We had a detailed discussion about the importance of maintainin g available basal insulin to be taken for emergency situation with insulin pump malfunctio n to avoid diabetic ketoacidos is. Provided with a free medical sample of long-actin g glargine. Recommenda tions: Further increase Lantus to 28 units every evening Resume NovoLog meal time insulin per the following Correction : 40 Carb ratio: 10 Target blood glucose: 110 Patient verbalized understand ing and agreed with the above mentioned plan of care. [id number] EVANGELINA HOUSTON, [facility] [address] [place] [address] 11/11/2021 12:57:35 11/11/2021 14:24:04 Diabetic ketoacidosis 470326030 E13.10 Resolved and has had insulin pump replaced. Continue close monitoring Acute nont raumatic kidney injury 4499741711 58435 N17.9 della on CKD, recheck to ensure return to baseline. Continue to keep well-hydra louisa Cough 21297038 R05.9 Ongoing cough may be related to lingering inflammati on but with bibasilar rhonchi recommend repeat chest x-ray to ensure no interval pneumonia. Currently on cefdinir for pharyngiti s but may need changed Post-acute COVID-19 1119 793722 U09.9 Discussed typical course with COVID and that unfortunat mary jo some individual s have lingering symptoms. Discussed option of evaluation by long [facility] clinic if he sees no improvemen t in the future. Closest clinic madelinin giuliana this I am aware of is in [place] . Monitor and call if any concerns or new symptoms [id number] XAVIER ISABEL MD [facility] [address] [facility],[place] [address] 11/19/2021 13:20:47 11/24/2021 18:47:35 Benign prostatic hyperplasia with outflow obstruction 268496087 N40.1 Kidney stone 82720149 N2 0.0 [id number] EVANGELINA HOUSTON, [facility] [address] [place] [address] 12/21/2021 13:28:02 12/21/2021 14:52:30 Left lower zone pneumonia 897059366 J18.1 Resolved, continue to monitor for new or returning symptoms Post-acute COVID-19 1119 468514 U09.9 Advised that it may take several weeks yet for him to feel 100% back to his baseline but should continue gradual daily improvemen t. Administra tion of influenza vaccine 61584959 Z23 Obstructiv e sleep apnea syndrome 76583347 G47.33 Not currently using CPAP.Discu ssed considerat ion for consultati on with ENT for second opinion and to discuss candidacy for inspire. 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 Chinchilla in [place] [id number] EVANGELINA HOUSTON DO [facility] [address] [place] [address] 01/21/2022 09:53:46 01/21/2022 11:13:50 Adult health examination 611356092 Z00.00 Patient presented to office today for their Medicare Annual Wellness Visit.Well [facility] visit Questionna milton was reviewed and will be scanned into medical record. Depression screening was negative and no followup plan is needed. Education was provided on healthy nutrition, including a diet rich in fruits and vegetables , minimizing simple carbohydra gabe, salt, and saturated fats. Encouraged regular cardiovasc ular exercise such as walking with goal of at least 30 minutes daily, 5 times per week. Emphasized preventive health measures and educated pt on fall prevention and community- based lifestyle interventi ons to help reduce health risks and promote healthy living. # PREVENTATI VE HEALTHScre ening--Col orectal cancer screenin, recheck scheduled 01/2022 for SHARAN--HCV screen:02/09, neg--HIV screen:[-- ]--PSA:Fol lows with urology--C T lung cancer screening: Not indicated- -AAA screening: [--] Coronary arteriosclerosis 50073762 I25.10 s/p 5 vessel cabg 2000. Stenting x1 ~2016, x3 in 2018 Heart catheteriz ation 08/18/2020 revealed severe CAD involving the left anterior descending , diagonal and obtuse marginal arteries.P atent SV graftsLVEF 55%Continu ing medical management and cardiology f/u Type 1 esme betes mellitus 13305215 E10.22 w/ diabetic nephropath y and retinopath y Most recent a1c 7.0Followi ng with endocrinol Dr Aida haro Continue current regimen and glucose monitoring Calcium py rophosphate deposition disease 553140324 M11.80 on hydroxychl oroquineco nt rheum f/u Chronic ki dney disease stage 3 028276066 N18.30 Stable. Continue to avoid NSAIDs. Continued control of diabetes of paramount importance Hypothyroidism 41865782 E03.9 stable, Cont synthroid Minimal co gnitive impairment 018225682 R41.89 2021 MMSE 30/30.Mini mal cognitive impairment .Eval w/neuro. Declined medication s.Possible contributi on by untreated MICAELA. Obstructiv e sleep apnea syndrome 83216262 G47.33 Not currently using CPAP due to intoleranc e.History of severe MICAELA with AHI January 2021 of 69Discusse d considerat ion for consultati on with ENT for second opinion and to discuss candidacy for inspire. He is now interested in seeing them. Recurrent falls 85279107 2 R29.6 Suspect diabetic neuropathy contribute s to his falls although his most recent fall seems to be more mechanical in nature.Con tinue PT/Gait training. Have also recommend ENT evaluation with hearing changes and tinnitus. [id number] JOSR ALMARAZ MD [place] [facility] [address] [place] [address] 02/05/2022 12:48:57 02/05/2022 14:52:05 Obstructive sleep apnea of adult 1446553602 103 G47.33 01/09/21 home PSG - AHI 69 Deviated nasal septum 12 6922011 J34.2 [id number] JOSE ANDERSON MD [facility] [address] [place] [address] 01/25/2022 09:46:54 01/25/2022 10:36:10 Actinic keratosis 653797469 L57.0 LN x 1 Lentiginosis 137007877 L 81.4 reassuranc e Recommende d Equate Ultra Sunscreen 30+ and sun protecting hats/cloth ing Neoplasm o f uncertain behavior of skin 25731697 D48.5 Left mid cheek - Education, thenshave removaland base destroyed with electrodes sication. [id number] CHAVA TROY MD NEUROLOGY [address] [place] [address] 03/31/2022 10:00:46 03/31/2022 11:04:21 Minimal cognitive impairment 792038553 G31.84 [id number] KP LIANG MD SURGERY SCHEDU[address] [place] [address] 03/30/2022 07:19:14 03/30/2022 07:20:01 [id number] ROSARIO PARRA MD ENDOCRINO [facility]Y [address] [place] [address] 04/14/2022 09:01:02 04/14/2022 10:51:13 Hypothyroidism 99800825 E03.9 Appears a clinically euthyroidT SH of 0.7 on 01/21/2022 and normal free T4 same dayContinu e current levothyrox ine therapy 125 g every a.m.Mauricio t was instructed on the appropriat e method of levothyrox in administra tion to be taken every a.m. on an empty stomach as new food, drinks or other medication s for at least 30 minutes. PPI and calcium -containin g preparatio ns is preferred to be given at least of her hours before or after levothyrox in therapy. 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 Chinchilla in [facility] verbalized understand ing and agreed with the above mentioned plan of care. [id number] NAVA SPEAR APRN RHEUMATOL OGLuis [address] [place] [address] 04/15/2022 08:46:39 04/16/2022 14:57:50 Erosive osteoarthrosis 188170361 M15.4 per xraysmaint ain diclofenac 1 % topical gel 1 g 4 times a daymaintai n hydrOXYchl oroQUINE 200 mg tablet 2 tablets every dayChange DULoxetine 60 mg capsule,de layed release from TAKE 2 CAPSULES BY MOUTH DAILY to 1 capsule 2 times a daymaintai n tiZANidine 4 mg tablet 1 tablet 2 times a daywill provide with refillsrec ommend lidocaine Gout 56981419 M10.9 long history of gout as well as pseudogout will have him maintain allopurino l 100 mg daily Calcium py rophosphate deposition disease 920230435 M11.80 per xrays Chronic low back pain 27 8757894 M54.50 with severe degenerati on of the l3, l4 and l5/s1 vertebraew ith decreased disc and neural openingscu rrently taking stronger pain medication and is going to have rfi done Pain of bi lateral hands 8567404514 5901656 M79.[address] Hatfield re oa and CTShad CTS on left but not on the right; currently seeing [facility] for this Body mass index 30+ - obesity 512607430 Z68.31 Bilateral tendinitis of hands 9371225518 5684066 M67.843 with severe deformitie sno need for injections todaymaint ain with hand surgeon as injections have not improved outcome in the past Fibromyalgia 801060535 M 79.7 chronic myofascial painlikely secondary to the erosive osteoarthr itis [id number] GABRIELLA GAFFNEY MD CARDIOLOG Y [address] ,[address] [place] [address] 04/22/2022 12:49:12 04/22/2022 13:52:25 Coronary atherosclerosis 739549499 I25.10 Patient with history of CAD (3v CABG 2000 - SVG-D1, SVG-OM, SVG-RCA, h/o PCI 2016); no new symptoms reported; exam is relatively unchanged from previous visit; continue with current medication s. EKG today - normal sinus rhythm, rate=78, LAD/LAFB, HSe=376 ms, no significan t ST abnormalit ies, non-specif ic T wave abnormalit y. History of hypotension 737576339 Z86.79 Today, BP was 122/68 mmHg. He reports no recent hypotensiv e episodes, but he reports feelings of dizziness occasional ly. If dizziness frequency or severity worsens and/or patient has documented hypotensio n, then I would recommend stopping Metoprolol and Lisinopril . If augmentati on of SBP is warranted, I would recommend starting low dose Midodrine 2.5 mg po tid. [id number] JELANI VENEGAS PA-C [facility] [address] [address] 04/30/2022 12:36:21 04/30/2022 13:24:26 Pneumonia 318389063 J18.9 Resolving he will complete doxycyclin e as prescribed by the hospital. Patient is provided incentive spirometer today. We demonstrat e use and he is encouraged to use this at least twice per hour.Patie nt is to return if he has worsening dyspnea, return of fever or he is not continuing to improve. I would also like him to remain off work through the next week. Note is provided. Coronary atherosclerosis 375798925 I25.10 Patient with history of CAD (3v CABG 2000 - SVG-D1, SVG-OM, SVG-RCA, h/o PCI 2016); EKG with cardiology 2 weeks ago - normal sinus rhythm, rate=78, LAD/LAFB, PPa=349 ms, no significan t ST abnormalit ies, non-specif ic T wave abnormalit y. I would like patient to go back to see his cardiologi st given his indigestio n that is similar to symptoms prior to diagnosis of coronary artery disease and atheroscle rosis in 2000. In the meantime, patient is to return to the emergency department without hesitation if he has worsening indigestio n especially if accompanie d by diaphoresi s, fatigue, shortness of breath or pain in the chest. He expressed understand ing and agreement. [id number] GABRIELLA GAFFNEY MD CARDIOLOG Y [address] [place] [address] 05/03/2022 13:00:20 05/05/2022 04:38:39 Coronary atherosclerosis 984220710 I25.10 Patient with history of CAD (5v CABG 2000 - SVG-D1, SVG-OM, SVG-RCA, and 2 other grafts (unknown locations) , h/o PCI 2016); continue with current medication s for now. Check echocardio gram prior to next visit (re: SHANTE BULLARD, h/o CAD).I will discuss nuclear stress test vs. coronary angiogram at next office visit in 2-3 weeks. Indigestion 692248137 R1 0.13 He reports a 2 month h/o indigestio n. He describes the indigestio n as typically occurring in the mornings, associated with nausea but no vomiting, feeling like fullness with occasional burning-ty pe pain in the mid-chest. These sensations are very similar to symptoms that he experience d prior to his need for 5 v CABG in 2000. The indigestio n may be his anginal equivalent . With ongoing treatment for pneumonia, I do not think that this is the ideal time to perform a stress test for Mr. Gold. I recommend that he return to the clinic in 2-3 weeks for reassessme nt. At that time, I am likely to recommend either a LexiScan nuclear stress test or a coronary & bypass graft angiograph y to evaluate this symptom further. Dizziness 580315688 R42 The etiology of the patient's dizziness/ lightheade dness is unclear based on history and physical. It may be related to recent pneumonia. We had a lengthy discussion regarding this topic today. Patient is recommende d to stay well hydrated, rise slowly from a seated or supine position. -Recommend ations: 1)Echocard iogram, 2)Bilatera l Carotid Artery duplex, -If these tests do not reveal a cause/cont ributing factor to patient's symptoms, then considerat ion may be given to additional testing such as 1)Nuclear stress test, 2)48 hour Holter Monitoring , 3)Tilt Table Testing, 4)30 Day Event Monitoring , 5)EP consultati on, 6)Neurolog y consultati on (if not already seeing Neurologis t). Pneumonia 468188384 J18. 9 Patient with recent ER visit for SOA, FREY, and cough. He was diagnosed with CAP. He is on anti-bioti cs for this issue, and reports that his symptoms are improving. He still reports some SOA, FREY, cough, dizziness, and fatigue. [id number] GABRIELLA GAFFNEY MD CARDIOLOG Y [facility] [address] [place] [address] ,[address] [place] [address] 06/10/2022 08:34:09 06/12/2022 04:29:06 Obesity 281149593 E66.9 patient's BMI today was = 31.3 ; recommend weight loss to achieve a BMI of <=25. Coronary atherosclerosis 710380509 I25.10 Patient with history of CAD (5v CABG 2000 - SVG-D1, SVG-OM, SVG-RCA, and 2 other grafts (unknown locations) , h/o PCI 2017); continue with current medication s for now. Echocardio gram (06/10/22):L VEF=60-65% , mildly dilated IVC (2.3 cm), mild LVH, mildly reduced RV systolic function (TAPSE=15 mm), Mild ARELI, estimated PASP is upper normal at 30-35 mmHg. I will discuss nuclear stress test vs. coronary angiogram at next office visit in 2-3 weeks. Dyspnea 133608979 R06.00 Dyspnea continues and may be related to a number of factors, including recent pneumonia, deconditio amadou, CAD. With this in mind, I recommend that patient undergo LexiScan nuclear stress test to further evaluate the etiology of his dyspnea. I also recommend that he f/u with his PCP for dyspnea, sinusitis, and cough. Dizziness 884178063 R42 The etiology of the patient's dizziness/ lightheade dness is unclear based on history and physical. It may be related to recent pneumonia. We had a lengthy discussion regarding this topic at last visit. Patient is recommende d to stay well hydrated, rise slowly from a seated or supine position. Carotid Artery Duplex (06/10/22): < 50% stenosis of bilateral ICAs, antegrade vertebral artery blood flow. Echocardio gram (06/10/22):L VEF=60-65% , mildly dilated IVC (2.3 cm), mild LVH, mildly reduced RV systolic function (TAPSE=15 mm), Mild ARELI, estimated PASP is upper normal at 30-35 mmHg. -If these tests do not reveal a cause/cont ributing factor to patient's symptoms, then considerat ion may be given to additional testing such as 1)Nuclear stress test, 2)48 hour Holter Monitoring , 3)Tilt Table Testing, 4)30 Day Event Monitoring , 5)EP consultati on, 6)Neurolog y consultati on (if not already seeing Neurologis t). [id number] EVANGELINA HOUSTON DO [facility] [address] [place] [address] 06/15/2022 11:14:02 06/15/2022 11:59:46 Dyspnea 603235055 R06.00 Follow-up right midlung opacity/PN A treated in April. Advised if chest x-ray is unrevealin g but his symptoms persist CT may be warranted. Complete upcoming cardiac testingWe will follow-up with results Folliculitis 03314498 L7 3.9 Recommend treatment for possible early cellulitis given risk factors for infection including his diabetes. Will treat with Doxy which would also cover for potential bacterial sinusitis although as we discussed it is less likely his upper respirator y symptoms are bacterial in origin.He is to monitor and can continue warm compresses . Call if new or increasing symptoms Sinusitis 36851338 J32.9 As above Dysphagia 52845460 R13.1 0 Discussed need for follow-up with GI if continued difficulti es, patient states he will reach out to them if it persists [id number] GABRIELLA GAFFNEY MD [facility] [address] ,[address] [place] [address] 07/08/2022 07:19:37 07/08/2022 15:33:38 [id number] EVANGELINA HOUSTON DO [facility] [address] [place] [address] 07/15/2022 08:38:29 07/15/2022 11:10:38 Type 1 diabetes mellitus 94364987 E10.22 w/ diabetic kidney disease and retinopath y Most recent a1c 6.5Followi ng with endocrinol Dr Krissy haro statin Continue current regimen and glucose monitoring Coronary arteriosclerosis 55537128 I25.10 s/p 5 vessel cabg 2000. Stenting x1 ~2016, x3 in 2018Heart catheteriz ation 08/18/2020 revealed severe CAD involving the left anterior descending , diagonal and obtuse marginal arteries.P atent SV graftsLVEF 55% Myoview 07/08/2022 showed small area of ischemia in the inferior basal wall, LVEF 62%Continu ing medical management and active management with cardiology Chronic ki dney disease stage 3A 417916803 N18.31 Stable. Continue to avoid NSAIDs. Continued control of diabetes of paramount importance Obesity 810645424 E66.9 Reviewed importance of healthy diet, lifestyle and exercise changes to achieve healthy weight. Will continue to monitor. Obstructiv e sleep apnea syndrome 44834585 G47.33 Not currently using CPAP due to intoleranc e.History of severe MICAELA with AHI January 2021 of 69Recommen d he follow-up with ENT for sleep endoscopy as previously considered . Advise he should contact their office or call us if he needs assistance arranging follow-up. [id number] GABRIELLA GAFFNEY MD CARDIOLOG Y [address] [place] [address] 07/15/2022 08:37:39 07/15/2022 09:53:39 Coronary atherosclerosis 502965966 I25.10 Patient with history of CAD (5v CABG 2000 - SVG-D1, SVG-OM, SVG-RCA, and 2 other grafts (unknown locations) , h/o PCI 2016); continue with current medication s for now. Echocardio gram (06/10/22):L VEF=60-65% , mildly dilated IVC (2.3 cm), mild LVH, mildly reduced RV systolic function (TAPSE=15 mm), Mild ARELI, estimated PASP is upper normal at 30-35 mmHg. LexiScan nuclear stress test (07/08/22):1 . Small area of ischemia in the inferobasa l wall.2. LVEF=62%, with normal regional wall motion.3. No significan t EKG changes noted during this study. We discussed his recent CV tests today.Over all, he is feeling better from a CV standpoint . Recommenda tion: RTC 4 months [id number] ROSARIO PARRA MD ENDOCRINO LOGY [address] [place] [address] 07/20/2022 07:27:41 07/20/2022 08:54:17 Hypothyroidism 88067222 E03.9 Appears a clinically euthyroidT SH of 0.7 on 01/21/2022 and normal free T4 same dayContinu e current levothyrox ine therapy 125 g every a.m.Mauricio t was instructed on the appropriat e method of levothyrox in administra tion to be taken every a.m. on an empty stomach as new food, drinks or other medication s for at least 30 minutes. PPI and calcium -containin g preparatio ns is preferred to be given at least of her hours before or after levothyrox in therapy. 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 Chinchilla in [facility] verbalized understand ing and agreed with the above mentioned plan of care. Type 1 esme betes mellitus 99028141 E10.8 A1c of 6.7 from 6.5 Random point-of-c are blood glucose of 275 Goal A1c less than 8% Reviewed insulin pump data. No changes made to his insulin pump Hypoglycem ia symptom recognitio n treatment reviewed In the office today he requested to change his infusion set to [employer] XC Tandem from his current infusion set [employer] [id number] EVANGELINA HOUSTON DO [facility] [address] [place] [address] 10/05/2022 11:22:31 10/05/2022 13:56:23 Chronic diastolic heart failure 698857091 I50.32 Appears euvolemicC ontinues Lasix 40 mg dailyConti joele cardiology follow-up Chronic cough 33411809 R 05.3 Pneumonia 135405011 J18. 9 Clinical suspicion for left-sided pneumonia, recommend treatment with doxycyclin e. Imaging for follow-up on previous bibasilar scarring. Left-sided pneumonia 12/2021, right-side d pneumonia 04/2022. 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 Patient was instructed on the appropriat e method of levothyrox ine administra tion. Take this medication every morning on an empty stomach 30-60 minutes prior to other food, drinks or medication s. PPI and calcium-co ntaining preparatio ns are preferred to be given at least four hours before or after levothyrox ine therapy. Type 1 esme betes mellitus 58895014 E10.8 A1c of 7.3% increased from 6.7 from 6.5Random point-of-c are blood glucose of 217Goal A1c less than 8%Reviewed insulin pump data. 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 Chinchilla in [facility] verbalized understand ing and agreed with the above mentioned plan of care. 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 Floyd have him maintain the hydroxychl oroquine 200 mg twice daily Pain of bi lateral hands 9094554333 2461474 M79.641 M79.642 Sees [facility] h/o ulnar deviation Gout 23359973 M10.9 long history of gout as well as pseudogout will have him maintain allopurino l 300 mg daily [id number] ELENA DAILY PA-C [facility] [address] [place] [address] 10/14/2022 10:05:05 10/14/2022 10:55:07 Chronic cough [id number] R05.[address] scan of lungs today, will add pulmonolog y referral and sputum cultures, as patient mentioned h/o MRSA in sputum during a hospitaliz ation last year. Lungs clear on exam, doxy was completed yesterday, will await CTscan results and consider another round of abx if appropriat e. [id number] EVANGELINA [place], FAMILY [address] [place] [address] 10/26/2022 12:15:31 10/26/2022 13:44:22 Type 1 diabetes mellitus [id number] E10.22 E10.40 E10.65 w/ diabetic kidney disease and retinopath y Most recent a1c 6.5Followi ng with endocrinol ogluis alfredo, Dr Krissy Lazo statin Recommend he contact endocrinol ogy to secure sooner appointmen t. Expect previous good control they will wish for him to resume insulin pump. Close blood sugar monitoring to detect pump dysfunctio n remains necessary. Diabetic ketoacidosis [address] episode 11/2021 after similar pump dysfunctio n. Pneumonia 407281471 J18. 9 Complete doxycyclin e course. Has upcoming follow-up scheduled with pulmonolog y for evaluation . [id number] ROSARIO PARRA MD ENDOCRINO LOGY [address] [place] [address] 11/02/2022 10:54:51 11/03/2022 04:50:32 Uncontrolled type 1 diabetes mellitus [id number] E10.65 A1c is significan tly up to 10.5 from 7.3 in the office todayRando m point-of-c are blood glucose of 177Goal A1c less than 8%Once again I had a lengthy and detailed discussion with patient about the importance of taking his basal insulin if his insulin pump goes out of function and to inspect his infusion set and bolus insulin for correction of the high blood glucose.I initially suggested to discontinu e insulin pump therapy, but he is still interested in continuing insulin pump and would like to switch to a different insulin pump [Medtronic MiniMed.We had a discussion about hypoglycem ia symptom recognitio n and treatmentP rovided with a free medical sample of Tresiba to be used at 40 units daily for any emergency insulin pump malfunctio n to avoid diabetic ketoacidos isSchedule an appointmen t with tandem T shanna garcia for reviewing technical aspects of his tandem t:slim.Lali low-up as scheduled [id number] ZEKE HOLLOWAY MD PULMONARY [address] [facility], [address] [place] [address] 11/05/2022 07:31:19 11/05/2022 13:32:[address] scan confirms bronchiect asis in the left lower lobe which is where he has apparently had these previous pneumonias Presumably the underlying rheumatoid arthritis is the etiology for the bronchiect asisPulmon christian function studies show mild restrictio n but diffusion capacity is reducedPre sumably the bronchiect asis is the cause of his dyspnea on exertionIt is generally an obstructiv e disease and will be treated as suchHe has been prescribed a nebulizer in the past but is not certain what medication Ivana have suggested that he resume the nebulized twice daily routinely for nowHe also has an Acapella device and is encouraged to use this after the neb therapy twice dailyHe does appropriat mary jo note that this may all be deconditio ningFollow -up is in 1 month with repeat PFTs, he will bring in his nebulized medication at that time [id number] NAVA SPEAR APRN RHEUMATOL OGY [address] [place] [address] 11/29/2022 09:05:19 12/01/2022 19:10:55 Erosive osteoarthrosis 176240459 M15.4 maintain hydrOXYchl oroQUINE 200 mg tablet 2 tablets every dayVoltare n Gel to bilateral handswith more severe oa deformitie s in the hands, wrists, with ulnar deviation and severe bone spurring with erosive findings in the hands, feet and kneeshas severe oa in the spine with multi level disc bulge and sees Dr. Floyd have him maintain the hydroxychl oroquine 200 mg twice daily Calcium py rophosphate deposition disease 134266287 M11.80 per xrays Gout 97525412 M10.9 long history of gout as well as pseudogout will have him maintain allopurino l 300 mg daily Pain of bi lateral hands [id number] 1938127 M79.641 M79.642 Sees [facility] Orthopedic swith h/o ulnar deviationh istory of injections would like to discuss further todaymey provide with bilateral hand injections today Long-term drug therapy 608116901 Z79.899 [id number] KRISTINA KISER APRN ENDOCRINO LOGY [address] [place] [address] 11/29/2022 10:11:44 11/29/2022 11:09:46 Uncontrolled type 1 diabetes mellitus 825912800 E10.65 A1c is 7.2%Random point-of-c are blood glucose of 296 (after steroid injection) Goal A1c less than 8% Increase Lantus to 30units once a day increase by 2 units every 3-5 days to achieve fasting glucose of 90-130 max daily dose 60units Inject Novolog 6 units prior to each meal plus 1u:50 >200 Once again I had a lengthy and detailed discussion with patient about the importance of taking his basal insulin if his insulin pump goes out of function and to inspect his infusion set and bolus insulin for correction of the high blood glucose.I initially suggested to discontinu e insulin pump therapy, but he is still interested in continuing insulin pump and would like to switch to a different insulin pump [Medtronic MiniMed.We had a discussion about hypoglycem ia symptom recognitio n and treatmentP rovided with a free medical sample of Tresiba to be used at 40 units daily for any emergency insulin pump malfunctio n to avoid diabetic ketoacidos isSchedule an appointmen t with tandem T shanna garcia for reviewing technical aspects of his tandem t:shanna.Fol low-up as scheduled he wants to switch to Medtronic. .. [id number] EVANGELINA [place], DO FAMILY MEDICINE [address] [place] [address] 12/01/2022 14:11:08 12/01/2022 15:04:44 Type 1 diabetes mellitus 22670968 E10.22 E10.40 E10.65 E10.319 w/ hyperglyce maria eugenia, diabetic kidney disease, diabetic neuropathy and retinopath y Most recent a1c 7.2Followi ng with endocrinol ogy, Dr Krissy Lazo statin Continue close follow-up with endocrinol ogy.As they have recommende d I would agree he should consider continuing both long-actin g and MDI for closer adjustment and to avoid future pump failure/DK A. Absolute importance of close monitoring and willingnes s to let his help is reviewed with patient. I would encourage he bring her to his follow-up appointmen t with endocrinol ogy. Diabetic ketoacidosis 42 4477834 E13.10 Resolved.E pisodes 11/2021, 10/2022, 11/2022 Administra tion of influenza vaccine 62542150 Z23 Hearing loss 12788660 H9 1.93 Requests referral to ENT for follow-up [id number] GABRIELLA GAFFNEY MD CARDIOLOG Y [address] [place] [address] 12/02/2022 13:22:28 12/07/2022 05:14:51 Obesity 448366142 E66.9 patient's BMI today was = 31.8 ; recommend weight loss for beneficial effects on health. Coronary atherosclerosis 642958815 I25.10 Patient with history of CAD (5v CABG 2000 - SVG-D1, SVG-OM, SVG-RCA, and 2 other grafts (unknown locations) , h/o PCI 2016); continue with current medication s for now. Echocardio gram (06/10/22):L VEF=60-65% , mildly dilated IVC (2.3 cm), mild LVH, mildly reduced RV systolic function (TAPSE=15 mm), Mild ARELI, estimated PASP is upper normal at 30-35 mmHg. LexiScan nuclear stress test (07/08/22):1 . Small area of ischemia in the inferobasa l wall.2. LVEF=62%, with normal regional wall motion.3. No significan t EKG changes noted during this study. We discussed his recent CV tests today.Over all, he is feeling better from a CV standpoint . Recommenda tion:1)RTC 4-6 months2)Mo re consistent /better mgmt. of Diabetes Mellitus - he wants to resume use of his Medtronic insulin pump ( he will discuss this with his endocrinol ogist). [id number] EVANGELINA [place], FAMILY [address] [facility] [place] [address] 01/24/2023 08:28:32 01/24/2023 11:51:43 Adult health examination 916528932 Z00.00 Patient presented to office today for their Medicare Annual Wellness Visit.Well ness visit Questionna milton was reviewed and will be scanned into medical record. Depression screening was negative and no followup plan is needed. Education was provided on healthy nutrition, including a diet rich in fruits and vegetables , minimizing simple carbohydra gabe, salt, and saturated fats. Encouraged regular cardiovasc ular exercise such as walking with goal of at least 30 minutes daily, 5 times per week. Emphasized preventive health measures and educated pt on fall prevention and community- based lifestyle interventi ons to help reduce health risks and promote healthy living. # PREVENTATI VE HEALTHScre ening--Col orectal cancer screenin03/2022, diverticul osis, consider 10y f/u--HCV screen:02/09, neg--HIV screen:[-- ]--PSA:Fol lows with urology--C T lung cancer screening: Not indicated- -AAA screenin01/2023, ordered Type 1 esme betes mellitus 12576522 E10.22 E10.40 E10.65 E10.319 w/ hyperglyce maria eugenia, diabetic kidney disease, diabetic neuropathy and retinopath y Most recent a1c 7.2Followi ng with endocrinol ogy, Dr Krissy Lazo statin Continue close follow-up with endocrinol ogy. Chronic ki dney disease stage 3A 704520679 N18.31 Stable. Continue to avoid NSAIDs. Continued control of diabetes of paramount importance Hypothyroidism 14766988 E03.9 stable, Cont synthroid Minimal co gnitive impairment 493957625 G31.84 2020 MMSE 30/30.Mini mal cognitive impairment .Eval w/neuro, previously on donepezil but stopped. Recommend he resume with which he is in agreement. Discussed possible contributi on by untreated MICAELA and need for treatment. Coronary arteriosclerosis 86229163 I25.10 s/p 5 vessel cabg 2000. Stenting x1 ~2016, x3 in 2018Heart catheteriz ation 08/18/2020 revealed severe CAD involving the left anterior descending , diagonal and obtuse marginal arteries.P atent SV graftsLVEF 55% Myoview 07/08/2022 showed small area of ischemia in the inferior basal wall, LVEF 62%Continu ing medical management and active management with cardiology Hyperparat hyroidism due to renal insufficiency 92475951 N25.81 Continue active management with nephrology Obstructiv e sleep apnea syndrome 08098343 G47.33 Not currently using CPAP due to intoleranc e.History of severe MICAELA with AHI January 2021 of 69Recommen d he follow-up with ENT for sleep endoscopy as previously considered , will refer. [facility] risk for falls 256387430 Z91.81 Steady fall risk score of 9, recommend PT/gait training, patient agreeable Abdominal aortic aneurysm screening 691592418 Z13.6 Screening for malignant neoplasm of prostate 286018160 Z12.5 Active immunization 3387 9002 Z23 Iron defic iency anemia 80871602 D50.9 hx of SHARAN, previously followed with [facility] onoscopy without evidence of bleeding 03/2022No longer taking iron, recheck Dysphagia 61335181 R13.1 0 Recommend follow-up with GI, history of esophageal dilation 01/2021, now having increasing difficulti es again including getting choked on pills and having to take medication with applesauce to pass. [id number] ZEKE HOLLOWAY MD PULMONARY [address] [facility], [address] [place] [address] 01/05/2023 08:48:36 01/06/2023 08:24:59 Bronchiectasis 88897642 J47.9 Spirometry today is stable showing only mild restrictio nDuoNeb routinely twice daily and then as neededAmox icillin 875 twice daily for a week as needed increased phlegm [id number] KRISTINA KISER, PUMPER GAUGER APPRENTICE ENDOCRINO LOGY [address] [place] [address] 01/13/2023 08:31:04 01/13/2023 10:15:23 Uncontrolled type 1 diabetes mellitus 496949478 E10.65 Z79.4 A1c is 6.7% decreased from 7.2%Random point-of-c are blood glucose 185Goal A1c less than 8% Increase Lantus to 38 units once a day increase by 2 units every 3-5 days to achieve fasting glucose of 90-130 max daily dose 60units Inject at breakfast Inject Novolog 6 units prior to each meal plus 1u:50 >200 Once again I had a lengthy and detailed discussion with patient about the importance of taking his basal insulin if his insulin pump goes out of function and to inspect his infusion set and bolus insulin for correction of the high blood glucose.I initially suggested to discontinu e insulin pump therapy, but he is still interested in continuing insulin pump and would like to switch to a different insulin pump [Medtronic MiniMed.We had a discussion about hypoglycem ia symptom recognitio n and treatment F/U in 3 months he wants to switch to Medtronic. .His warranty is up in April. [id number] JOSE ANDERSON MD DERMATOLO [facility] [address] [place] [address] 01/25/2023 09:17:02 01/25/2023 10:23:35 Lentiginosis 257453213 L81.4 reassuranc e Recommende d Equate Ultra Sunscreen 30+ and sun protecting hats/cloth ing Inflamed s eborrheic keratosis 089823067 L82.0 Education, then cryodestru ction with liquid nitrogen (LN) x 1 Edema of l ower extremity 395751502 R60.0 lower legs - Discussed elevation Stasis dermatitis 323311 05 I87.2 lower legs and ankles - Discussed velcro compressio n stockingse levateon diureticWi ll send a RX for triamcinol one cream [id number] JOSR ALMARAZ MD ENT [address] [place] [address] 03/03/2023 10:06:27 03/03/2023 13:54:18 Obstructive sleep apnea of adult 3793797575 103 G47.33 Insurance: Medicare-K [facility] Physician: Dr. Haddad Date: 01/09/21 (original [employer] consult done on 02/05/22)A HI Using 4% Rule: 69.4Centra l/Mixed Percentage : 0BMI: 31.6DISE: pendingHas tried and failed/ret urned/does not wear anymore CPAP due to issues w/ masks (has tried many different masks)won' t stay oninfectiv e Deviated nasal septum 12 7312060 J34.2 Coronary arteriosclerosis 07969434 I25.10 Diabetes mellitus 519419 09 E11.9 [id number] KP LIANG MD GASTRO [address] [facility], [address] [place] [address] 03/08/2023 14:45:58 03/08/2023 15:17:27 Esophageal dysphagia 20940058 R13.19 Recurrent symptoms, will benefit from EGD and dilation Fecal inco ntinence with fecal urgency 5880347351 86513 R15.2 Will try symptomati c therapy with colestid only once a day trial [id number] EVANGELINA [place] DO FAMILY MEDICINE [address] [place] [address] 04/26/2023 08:40:44 04/26/2023 12:21:57 Closed fracture of greater trochanter of left femur 1165242528 5766970 S72.115D Appointmen t with [facility] for follow-up today. Continue rolling walker use at all times. Continue PT. Diarrhea 75896130 R19.7 Continue workup with GI. Will obtain stool cultures given concern about possible C. difficile exposure. Fortunatel y current symptoms less consistent with C. difficile. Chronic ki dney disease stage 3A 602041037 N18.31 Stable. Continue to avoid NSAIDs. Continued control of diabetes of paramount importance Hypothyroidism 29473260 E03.9 With weight loss need to recheck thyroid hormones. Continue Synthroid with titration as indicated Chronic di astolic heart failure 501418461 I50.32 Appears euvolemicC ontinues Lasix 40 mg dailyConti nue cardiology follow-up Type 1 esme betes mellitus 02526585 E10.22 E10.40 E10.65 E10.319 w/ hyperglyce maria eugenia, diabetic kidney disease, diabetic neuropathy and retinopath y Most recent a1c 7.2Followi ng with endocrinol Dr Krissy haro statin Continue close follow-up with endocrinol ogluis alfredo. Bronchiectasis 10106609 J47.9 Stable, continue active management with pulmonolog y Hyperparat hyroidism due to renal insufficiency 99479260 N25.81 Previous nuclear medicine evaluation of parathyroi d was normal.Hyp erparathyr oidism secondary to CKDContinu e active management with nephrology [id number] EVANGELINA [place] DO FAMILY MEDICINE [address] [place] [address] 06/09/2023 14:30:28 06/09/2023 15:39:27 Chronic kidney disease stage 3A 597454518 N18.31 Stable. Continue to avoid NSAIDs. Continued control of diabetes of paramount importance Type 1 esme betes mellitus 98261013 E10.22 E10.40 E10.65 E10.319 w/ hyperglyce maria eugenia, diabetic kidney disease, diabetic neuropathy and retinopath y Recent hyperglyce maria eugenia secondary to illness, improving. Random glucose is now less than 200 [address]Reque sts referral to noel tillman with his previous endocrinol ogist [place] Donna Lazo statin Continue close follow-up with endocrinol ogy. [facility] risk for aspiration 919843723 Z91.89 As above Pneumonia 493839693 J18. 9 Suspected aspiration pneumonia, he should continue working with speech therapy. Has plans for upcoming EGD and esophageal dilation. Minimal co gnitive impairment 504654673 G31.84 2020 MMSE 30/30.Mini mal cognitive impairment .Eval w/neuro, previously on donepezil but stopped.Di scussed possible contributi on by untreated MICAELA and need for treatment. [id number] HILARIA ANGEL PA-C PULMONARY [address] [facility], [address] [place] [address] 06/30/2023 09:44:52 06/30/2023 12:24:38 Bronchiectasis 22076095 J47.9 Patient is currently using DuoNebs once daily. I would increase this to 2 3 times daily. Add Mucinex twice daily. I also recommende d a flutter valve. Bronchiect asis is most likely secondary to chronic aspiration . I did not add any further antibiotic s today. I will order AFB and routine sputum culture at [facility]. He will also need a CT chest without contrast to follow-up on left infiltrate that was noted on previous CT scan. [facility] risk for aspiration 826686466 Z91.89 Continue current modificati ons of diet. Follow-up with GI. Rheumatoid arthritis 698 68114 M06.9 Follows with Rheumatolo gy. [id number] NAVA SPEAR APRN RHEUMATOL OGY [address] [place] [address] 07/19/2023 13:17:39 07/21/2023 11:29:00 Erosive osteoarthrosis 325180638 M15.4 maintain hydrOXYchl oroQUINE 200 mg tablet 2 tablets every dayVoltare n Gel to bilateral handswith more severe oa deformitie s in the hands, wrists, with ulnar deviation and severe bone spurring with erosive findings in the hands, feet and kneeshas severe oa in the spine with multi level disc bulge and sees Dr. 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.80 per xrays Gout 97559079 M10.9 long history of gout as well as pseudogout will have him maintain allopurino l 300 mg daily Pain of bi lateral hands 0784103832 7017837 M79.641 M79.642 Sees [facility] Orthopedic swith h/o ulnar deviationh istory of injections would like to discuss further todaywill see me prn Long-term drug therapy 224615692 Z79.899 Fibromyalgia 044450874 M 79.7 chronic myofascial painlikely secondary to the erosive osteoarthr itis Chronic low back pain 27 7349767 M54.50 with severe degenerati on of the l3, l4 and l5/s1 vertebraew ith decreased disc and neural openingscu rrently taking stronger pain medication and is going to have rfi done Bilateral tendinitis of hands 6508951066 0097854 M67.843 with severe deformitie sno need for injections todaymaint ain with hand surgeon as injections have not improved outcome in the past Body mass index 30+ - obesity 760474309 Z68.31 Pathological fracture 26 5131147 M84.40XA [id number] EVANGELINA [place], FAMILY MEDICINE [address] [place] [address] 08/01/2023 10:37:45 08/01/2023 11:47:28 Chronic kidney disease stage 3A 401419192 N18.31 Stable. Continue to avoid NSAIDs. Continued control of diabetes of paramount importance Hypothyroidism 88857355 E03.9 Continue Synthroid with titration as indicatedC ontinue active management with endocrinol t[place] Chronic di astolic heart failure 519417252 I50.32 Appears euvolemicC ontinues Lasix 40 mg dailyConti nue cardiology follow-up Type 1 esme betes mellitus 82371542 E10.22 E10.40 E10.65 E10.319 Z79.4 w/ hyperglyce amria eugenia, diabetic kidney disease, diabetic neuropathy and retinopath y.Long-ter m insulin useMost recent a1c 7.8 % 07/2023Foll owing with endocrinol Dr Padmini haro in [facility] statin Continue close follow-up with endocrinol ogy. Bronchiectasis 61395852 J47.9 Stable, continue active management with pulmonolog y Hyperparat hyroidism due to renal insufficiency 83705354 N25.81 Previous nuclear medicine evaluation of parathyroi d was normal.Hyp erparathyr oidism secondary to CKDContinu e active management with nephrology Furuncle of buttock 1243 0003 L02.32 Small furuncle which appears may have previously drained. No surroundin g erythema or evidence of current cellulitis but given uncontroll ed diabetes at risk for worsening and would err on the side of caution, treating with doxycyclin e. Warm compresses and close monitoring recommende d. Call if new or worsening symptoms. [id number] EVANGELINA [place], FAMILY MEDICINE [address] [place] [address] 09/05/2023 14:04:39 09/05/2023 15:14:27 Mass of pancreas 978400352 K86.89 8 mm hypoattenu ating lesion of the pancreatic tailRecomm end dedicated follow-up imaging to further characteri ze Type 1 esme betes mellitus 34923995 E10.22 E10.40 E10.65 E10.319 Z79.4 w/ hyperglyce maria eugenia, diabetic kidney disease, diabetic neuropathy and retinopath y.Long-ter m insulin useMost recent a1c 7.8 % 07/2023Foll owing with endocrinDr Padmini osullivan in [facility] statin Continue close follow-up with endocrinol ogy. Hx retinopath y, f/w Dr Weston, continue surveillan ce. Pneumonia 457114655 J18. 9 Left lower lobe pneumonia being treated with doxycyclin e, unfortunat mary jo not tolerating p.o. and with increasing respirator y symptoms concern that infection is not adequately controlled or possible new evolving process such as pleural effusion. Discussed with patient and recommenda tion for return to hospital for ongoing treatment which they are in agreement with and will proceed by private vehicle to [facility]. Abdominal pain 48461962 R10.9 Persistent symptoms over the last 3 weeks. Discussed that it is possible the new pancreatic lesion is related however given its small size and hope that this is just benign pancreatic cyst would not expect degree of current symptoms. Given inability to tolerate p.o. and significan t dehydratio n as above he will be proceeding to ED for treatment. [id number] EVANGELINA [place], DO FAMILY MEDICINE [address] [place] [address] 09/21/2023 09:13:00 09/21/2023 10:11:13 Mass of pancreas 751084325 K86.89 8 mm hypoattenu ating lesion of the pancreatic tailRecomm end dedicated follow-up imaging to further characteri ze Type 1 esme betes mellitus 28840743 E10.22 E10.40 E10.65 E10.319 Z79.4 E10.3492 w/ hyperglyce maria eugenia, diabetic kidney disease, diabetic neuropathy and retinopath y.Long-ter m insulin useMost recent a1c 7.8 % 07/2023Foll owing with endocrinol ogluis alfredo, Dr [place] in [facility] statin Continue close follow-up with endocrinol ogy. Hx retinopath y, f/w Dr Weston, continue surveillan ce. Insomnia 170569980 G47.0 0 Stable, continues trazodone with good effect. Chronic ki dney disease stage 3A 184534114 N18.31 Stable. Continue to avoid NSAIDs. Continued control of diabetes of paramount importance Chronic di astolic heart failure 689057653 I50.32 EuvolemicC ontinues Lasix 40 mg dailyConti nue active management with cardiology Unsteady when walking 22 113237 R26.89 At risk for falls, recommend physical therapy [facility] He would also benefit from hand PT given his significan t erosive osteoarthr osis and need for cane use. Nausea 964370295 R11.0 Much improved. Continue PPI, keep upcoming GI evaluation . [id number] CHAVA TROY MD NEUROLOGY [address] [place] [address] 10/12/2023 09:36:06 10/13/2023 04:04:36 Minimal cognitive impairment 803256629 G31.84 [id number] KP LIANG MD GASTRO [address] [facility], [address] [place] [address] 10/18/2023 13:35:37 10/18/2023 15:19:46 Esophageal dysphagia 26711901 R13.19 Recurrent symptoms, will benefit from EGD and dilation, will schedule in ESC now Fecal inco ntinence with fecal urgency 0527239788 69090 R15.2 Will try symptomati c therapy with colestid only once a day trial [id number] NAVA SPEAR APRN RHEUMATOL OGY [address] [place] [address] 10/21/2023 09:55:58 10/21/2023 12:32:27 Senile osteoporosis 22063410 M81.0 [id number] GABRIELLA GAFFNEY MD CARDIOLOG Y [address] [place] [address] 11/23/2023 13:01:53 11/23/2023 13:56:56 Coronary atherosclerosis [id number] I25.10 Patient with history of CAD (5v CABG 2000 - SVG-D1, SVG-OM, SVG-RCA, and 2 other grafts (unknown locations) , h/o PCI 2016); continue with current medication s - Crestor 20 mg po qd, Plavix 75 mg po qd, Lisinopril 2.5 mg po qd, Metoprolol succinate ER 25 mg 1/2 po qd, ECASA 81 mg po qd, NTG 0.4 mg SL PRN - for now. Echocardio gram (06/10/22):L VEF=60-65% , mildly dilated IVC (2.3 cm), mild LVH, mildly reduced RV systolic function (TAPSE=15 mm), Mild ARELI, estimated PASP is upper normal at 30-35 mmHg. LexiScan nuclear stress test (07/08/22):1 . Small area of ischemia in the infero-bas al wall.2. LVEF=62%, with normal regional wall motion.3. No significan t EKG changes noted during this study. We discussed his recent CV tests today.Over all, he is feeling better from a CV standpoint . Recommenda tion:1)RTC 1 year with EKG2)More consistent /better mgmt. of Diabetes Mellitus - he wants to resume use of his Medtronic insulin pump ( he will discuss this with his endocrinol ogist). Obesity 460194054 E66.9 patient's BMI today was = 30.2; recommend weight loss for beneficial effects on health. Essential hypertension 96222042 I10 BP today was = 100/60 mmHg, HR = 74 bpm; continue with current meds. -Lisinopri l 2.5 mg p.o. daily, metoprolol succinate ER 25 mg half tablet p.o. daily. The patient is recommende d to check BPs at home periodical ly & bring BP log to next visit. A low sodium (< 2000 mg/day) diet is also recommende d. [id number] NAVA SPEAR APRN RHEUMATOL OGY [address] [place] [address] 01/17/2024 12:41:42 01/23/2024 07:35:06 Erosive osteoarthrosis 210034839 M15.4 maintain hydrOXYchl oroQUINE 200 mg tablet 2 tablets every dayVoltare n Gel to bilateral handswith more severe oa deformitie s in the hands, wrists, with ulnar deviation and severe bone spurring with erosive findings in the hands, feet and kneeshas severe oa in the spine with multi level disc bulge and sees Dr. Floyd have him maintain the hydroxychl oroquine 200 mg twice daily Calcium py rophosphate deposition disease 688151635 M11.80 per xrays Gout 54615802 M10.9 long history of gout as well as pseudogout will have him maintain allopurino l 300 mg daily Fibromyalgia 621878140 M 79.7 chronic myofascial painlikely secondary to the erosive osteoarthr itis Pain of bi lateral hands 2793030561 1866338 M79.641 M79.642 Sees [facility] Orthopedic swith h/o ulnar deviationh istory of injections would like to discuss further todaywith injections provided into ia joints in mireille hands today Long-term drug therapy 673800484 Z79.899 Chronic low back pain 27 1383243 M54.50 with severe degenerati on of the l3, l4 and l5/s1 vertebraew ith decreased disc and neural openingscu rrently taking stronger pain medication and is going to have rfi done Body mass index 30+ - obesity 566871878 Z68.31 Pathological fracture 26 2656645 M84.40XA next dexa due 08/26/2025 or after [id number] EVANGELINA HOUSTON, DO [facility]ILY [facility] [address] [facility] [place] [address] 01/26/2024 09:52:10 01/26/2024 11:00:25 Adult health examination 814907531 Z00.00 Patient presented to office today for their Medicare Annual Wellness Visit.[facility] visit Questionna milton was reviewed and will be scanned into medical record. Depression screening was negative and no followup plan is needed. Education was provided on healthy nutrition, including a diet rich in fruits and vegetables , minimizing simple carbohydra gabe, salt, and saturated fats. Encouraged regular cardiovasc ular exercise such as walking with goal of at least 30 minutes daily, 5 times per week. Emphasized preventive health measures and educated pt on fall prevention and community- based lifestyle interventi ons to help reduce health risks and promote healthy living. # PREVENTATI VE HEALTHScre ening--Col orectal cancer screenin03/2022, diverticul osis, consider 10y f/u--HCV screen:02/09, neg--HIV screen:[-- ]--PSA: Continue annual screening- -CT lung cancer screening: Not indicated- -AAA screenin02/2023, no AAA Chronic di astolic heart failure 015203606 I50.32 EuvolemicC ontinues Lasix 40 mg dailyConti nue active management with cardiology Chronic ki dney disease stage 3A 424274314 N18.31 Most recent GFR has improved to 66, recheckSta ble. Continue to avoid NSAIDs. Continued control of diabetes of paramount importance Type 1 esme betes mellitus 91498828 E10.22 E10.40 E10.65 E10.319 Z79.4 E10.3492 w/ hyperglyce maria eugenia, diabetic kidney disease, diabetic neuropathy and retinopath y.Long-ter m insulin useMost recent a1c 7.8 % 07/2023Foll owing with endocrinol tahir, Dr [place] in [facility] [place] Continue close follow-up with endocrinol ogluis alfredo. Hx retinopath y, f/w Dr Weston, continue surveillan ce. Obstructiv e sleep apnea syndrome 77708917 G47.33 Not currently using CPAP due to intoleranc e.History of severe MICAELA with AHI January 2021 of 69Evaluate d with sleep endoscopy and reports he was deemed not a candidate for Inspire.Re commend he reconsider CPAP, he declines. Hypothyroidism 07382833 E03.9 Continue Synthroid with titration as indicatedC ontinue active management with endocrinol tahir [place] Minimal co gnitive impairment 152660084 G31.84 2020 MMSE 30/30.Mini mal cognitive impairment .Eval w/neuro, previously on donepezil but stopped due to diarrhea.D iscussed possible contributi on by untreated MICAELA and need for treatment. Coronary arteriosclerosis 01656939 I25.10 s/p 5 vessel cabg 2000. Stenting x1 ~2016, x3 in 2018Heart catheteriz ation 08/18/2020 revealed severe CAD involving the left anterior descending , diagonal and obtuse marginal arteries.P atent SV graftsLVEF 55% Myoview 07/08/2022 showed small area of ischemia in the inferior basal wall, LVEF 62%Continu ing medical management and active management with cardiology Hyperparat hyroidism due to renal insufficiency 69295699 N25.81 Previous nuclear medicine evaluation of parathyroi d was normal.Hyp erparathyr oidism secondary to CKDContinu e active management with nephrology Screening for malignant neoplasm of prostate 300106495 Z12.5 Administra tion of influenza vaccine 82719706 Z23 Active immunization 3387 9002 Z23 Atheroscle rosis of aorta 48843148 I70.0 Atheroscle rosis of aorta noted on imaging with known CAD history. continue aspirin and statin. Acquired thrombocytopenia 21494381 D69.6 Mild thrombocyt openia on recent blood work. Likely secondary to chronic disease, no bleeding or bruising. Recheck Hypertensive disorder 38 979511 I10 Remains well-contr olled, continue current medication regimen [id number] JOSE ANDERSON MD DERMATOLO [facility] [address] [place] [address] 01/30/2024 09:15:41 01/30/2024 10:22:11 Lentiginosis 644207092 L81.4 Reassuranc eRecommend ed Equate Ultra Sunscreen 30+ and sun protecting hats/cloth ing Actinic keratosis 815229 [address] x 2 Senile purpura 10120251 D69.2 Reassuranc e [id number] NAVA SPEAR APRN RHEUMATOL OGY [address] [place] [address] 02/06/2024 14:17:00 02/07/2024 13:06:55 Tailor's bunion of right foot 9334030837 046457 M21.621 with severe bone pain, stiffness; deformityw ill provide with an ia joint injection today for pain relief [id number] ELVA KNOWLES CUA, [facility] [address] [place] [address] 02/17/2024 09:11:48 02/17/2024 10:54:52 Benign prostatic hyperplasia with outflow obstruction 801595503 N40.1 PVR of 55 mL suggestive of adequate bladder emptying. [id number] XAVIER ISABEL MD CUA [facility] [address] [place] [address] 02/29/2024 08:31:58 02/29/2024 11:41:02 Benign prostatic hyperplasia with outflow obstruction 688048598 N40.1 Nocturia 085835802 R35.1 [id number] ELENA DAILY PA-C [facility] [address] [address] 04/11/2024 12:59:31 04/11/2024 14:09:23 Hospital inpatient stay within past 30 days 1645273313 106 Z76.89 DOA: 04/01/24DOD : 04/04/24DX: PneumoniaH ospital records reviewed and discussed with patient. Community acquired pneumonia 012621026 J18.9 Treated inpatient with doxycyclin e and rocephin-i mproved clinically . Recommend re X-ray last week of April, 4 weeks post treatment. He has printed order and will get this in [place]. Type 1 esme betes mellitus 37396427 E10.22 E10.40 E10.65 E10.319 Z79.4 E10.3492 Actively managed by endocrinjacquelin haro in [place]. Recent low blood sugar at 44 a few days ago, no episodes since. He has DexCom7 and is continuing to monitor. 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 Chronic ki dney disease stage 3 227124126 N18.31 GFR was 54 on 01/26/2024 and improved to 74 on 04/04/2024 during recent hospitaliz ation. Bronchiectasis 16719058 J47.9 Actively managed by pulmonolog y. Dementia 39763146 F03.90 Actively managed by neurology, And stable on donepezil. Hypothyroidism 79095935 E03.9 levothyrox ine increased in hospital and he will f/u with endocrinjacquelin haro who is managing end of April. Rheumatoid arthritis 698 48046 M06.9 Actively managed by rheumatwero brink. Insomnia 971173923 G47.0 0 Patient needs refill on trazodone. I also recommend he try tart elizabeth juice 2-4oz 30 minutes before bed to help with sleep. Chronic di astolic heart failure 117601250 I50.32 Actively managed by cardiology and stable on furosemide . No significan t edema on exam today. [id number] NAVA SPEAR APRN RHEUMATOL TAHIR [address] [place] [address] 05/21/2024 14:35:13 05/22/2024 15:37:25 Tailor's bunion of right foot 0884736483 167575 M21.621 with severe bone pain, stiffness; deformityn o need for injections today Erosive osteoarthrosis 316853577 M15.4 maintain hydrOXYchl oroQUINE 200 mg tablet 2 tablets every dayVoltare n Gel to bilateral handswith more severe oa deformitie s in the hands, wrists, with ulnar deviation and severe bone spurring with erosive findings in the hands, feet and kneeshas severe oa in the spine with multi level disc bulge and sees Dr. Floyd have him maintain the hydroxychl oroquine 200 mg twice daily Calcium py rophosphate deposition disease 498886385 M11.80 per xrays Gout 72282957 M10.9 long history of gout as well as pseudogout will have him maintain allopurino l 300 mg daily Fibromyalgia 843680723 M 79.7 chronic myofascial painlikely secondary to the erosive osteoarthr itis Pain of bi lateral hands 2778449547 6739475 M79.641 M79.642 Sees [facility] Orthopedic swith h/o ulnar deviationh istory of injections would like to discuss further todaywith injections provided into ia joints in mireille hands today Long-term drug therapy 794424677 Z79.899 Chronic low back pain 27 2512248 M54.50 with severe degenerati on of the l3, l4 and l5/s1 vertebraew ith decreased disc and neural openingscu rrently taking stronger pain medication and is going to have rfi done Pathological fracture 26 4124026 M84.40XA next dexa due 08/26/2025 or after Body mass index 30+ - obesity 607056739 Z68.31 [id number] XAVIER ISABEL MD [facility] [address] [place] [address] 05/23/2024 11:32:45 05/23/2024 16:10:50 Benign prostatic hyperplasia with outflow obstruction 696194487 N40.1 N13.8 Nocturia 154786776 R35.1 [id number] FERNANDA CRUZ PA-C [facility] [address] [place] [address] 06/18/2024 13:28:50 06/18/2024 14:23:40 Acute cough 0511546178 25316073 R05.1 has become productive . see tx plan below. O2 sat a bit low at 93%. Acute bact erial bronchitis 991985114 J20.8 B96.89 start doxy and mucinex as directed. promethazi ne DM for cough. he was advised this causes drowsiness . continue neb tx as needed. He declines an oral steroid today. Supportive tx measures discussed. re eval if not improving in 4-5 days or if worsens. [id number] EVANGELINA HOUSTON DO FAMILY MEDICINE [address] [place] [address] 07/05/2024 10:32:51 07/05/2024 11:53:45 Right flank pain 523154316 R10.9 Right flank pain and history of [...] expresses understand ing with plan Chronic cough 20517386 R 05.3 Right-side d pneumonia 03/2024, now [...] necessary. Chronic ki dney disease stage 3A 498464800 N18.31 Most recent GFR has improved to 74Stable. Continue to avoid NSAIDs. Continued control of diabetes of paramount importance [id number] EVANGELINA HOUSTON DO FAMILY [address] [place] [address] 07/23/2024 11:13:53 07/23/2024 12:28:26 Chronic diastolic heart failure 199279482 I50.32 EuvolemicC ontinues Lasix 40 mg dailyConti nue active management with cardiology Type 1 esme betes mellitus 38313839 E10.22 E10.40 E10.65 E10.319 Z79.4 E10.3492 w/ hyperglyce maria eugenia, diabetic kidney disease, diabetic neuropathy and retinopath y.Long-ter m insulin useMost recent a1c 7.8 % 07/2023Foll owing with endocrinol tahir, Dr [place] in [facility] [place] Continue close follow-up with endocrinol tahir. Hx retinopath y, f/w Dr Weston, continue surveillan ce. Obstructiv e sleep apnea syndrome 78486548 G47.33 Not currently using CPAP due to intoleranc e.History of severe MICAELA with AHI January 2021 of 69Evaluate d with sleep endoscopy and reports he was deemed not a candidate for Inspire.Re commend he reconsider CPAP, he declines. Hypothyroidism 96194751 E03.9 Continue Synthroid with titration as indicatedC ontinue active management with endocrinol ogy Dr Washington Minimal co gnitive impairment 153672377 G31.84 2020 MMSE 30/30.Mini mal cognitive impairment .Eval w/neuro, previously on donepezil but stopped due to diarrhea.D iscussed possible contributi on by untreated MICAELA and need for treatment. Hypertensive disorder 38 728252 I10 Remains well-contr olled, continue current medication regimen Coronary arteriosclerosis 97681878 I25.10 s/p 5 vessel cabg 2000. Stenting x1 ~2016, x3 in 2018Heart catheteriz ation 08/18/2020 revealed severe CAD involving the left anterior descending , diagonal and obtuse marginal arteries.P atent SV graftsLVEF 55% Myoview 07/08/2022 showed small area of ischemia in the inferior basal wall, LVEF 62%Continu ing medical management and active management with cardiology Hyperparat hyroidism due to renal insufficiency 42204242 N25.81 Previous nuclear medicine evaluation of parathyroi d was normal.Hyp erparathyr oidism secondary to CKDContinu e active management with nephrology Pneumonia 458265269 J18. 9 Multi recurrent pneumonia. Will extend Augmentin course x 5 additional days.,Oliverio mmend follow-up with pulmonolog y, patient and in agreement. Esophageal dysphagia 408 89452 R13.19 Recommend to continue with speech therapy. Honey thickened liquids and intentiona l chewing/ca ution to protect airway. Asthenia 02654454 R53.1 Recommend PT/gait therapy. Continue rolling walker use at all times Health Concerns Section Related Observation LastModified by Organization Detai ls LastModified Time None Recorded Concern Status LastModified by Organization Details LastModified Time None Recorded Advance Directives Directive None Recorded Payers Insurance Date Sequence Insurance Name Policy Number Policy Coleman Covered Member ID Coleman Member ID Guarantor Name 05/18/2022 1 UNSPECIFIED REMIT PAYOR Soledad Gold 09/06/2023 2 [employer] (MEDICARE SUPPLEMENT) Soledad Gold [id number] Soledad Gold 07/19/2024 1 [place] Soledad Gold [id number] Soledad Welch Gold 07/29/2020 2 UNSPECIFIED REMIT PAYOR Soledad Gold Notes Date Note Type Note Provider Name and Address Organization Details Recorded Time 05/21/2024 text/html pleasant 68 yo m jacinda, f/u on erosive osteoarthritis and osteoporosislast year, he broke his hip in March then broke a bone in his left foothe continues with worsening joint pain and has maintained with fibro, cppd and erosive oa treatmenthe reports the following symptomatic complaints: left wrist, bilateral hands, and neck. Hand pain wakes him up nightly.having issues with multiple joints with chronic and recurringHe is using plaquenil and voltaren gel, gabapentin for bilateral leg pain.xrays show erosive arthritis, cppd and osteoarthritiswith multiple joint pain and tenderness; stiffness and swelling;having balance issues; no new injuries NAVA PSEAR APRN [facility] [place], [address], [facility] 05/21/2024 15:10:24 05/23/2024 text/html 68-year-old male presents for a follow up evaluation and discussion of BPH with outflow obstruction. He underwent cystoscopy with Dr. Ross. Taking double dose tamsulosin and finasteride daily. Patient reports improved daytime frequency, every 2-3 hours, although he notes increased urination today once every hour. Nocturia is usually once nightly, however he also notes increased nocturia to 3 times nightly he attributes to recent bilateral steriod injections in his hands. No hesitancy or straining. History of urolithiasis as well as extensive arthritis. XAVIER ISABEL MD [address] [place], [address], [facility] 06/06/2024 10:33:24 06/18/2024 text/html Patient presents with hacking cough x 2+ weeks, as well as congestion. Over the weekend, it has become productive of overton to brown sputum. He has some SOA and wheezing, but this is some better with breathing treatments. He has a history of asthma, as well as chronic diastolic CHF. Patient also has congestion, scant discolored rhinorrhea, and scratchy throat. He denies fever/chills, headache, body aches, decreased appetite, chest pain, facial pain, or GI symptoms. He has not had antibiotics recently. FERNANDA CRUZ PA-C [address] [place], [address], [facility] 06/18/2024 14:00:54 07/05/2024 text/html The patient is a 68-year-old male presenting with right flank pain and chronic cough. The right flank pain commenced suddenly yesterday afternoon, has been persistent, and is described as sharp and localized to the right lower back. The patient has a history of kidney stones but reports no visible blood in the urine or significant urination changes, except for occasional hesitancy which is his baseline. He denies associated fever, chills, or nausea but reports recent diarrhea following watermelon consumption. The chronic cough has been present since the patient was hospitalized with pneumonia in April and remains unchanged. The patient continues with his medications, including Flomax and finasteride, and uses [place] for pain, although it has been minimally effective for the current pain. EVANGELINA HOUSTON DO [address] [place] [address], [address], [facility] 07/05/2024 11:12:03 07/23/2024 text/html TCMReported bypatient.Details:admis sekou date: (07/15/24); date of discharge: (07/20/24); discharge provider: (Edgardo Corbett MD); [facility]; diagnosis (#) Recurrent Multifocal pneumonia #) Acute hypoxic respiratory failure #) Bronchiectasis #) Fall other stairs and steps, initial encounter #) Weakness, Debility, Reduced Mobility #) Oropharyngeal dysphagia#) Esophageal stricture); date interactive contact was made: (07/23/24) Current Caregivers:self; family member (, river) [facility] Performed:not medically indicated Reported Medicationsrecent change in medication: new medication (- amoxicillin-clavulanate 875-125 MG tablet BID X 5 doses); [...] acute intracranial hemorrhage or acute large territorial infarction.Age-appropri ate cerebral atrophy with mild to moderate periventricular [...] acute intracranial hemorrhage or acute large territorial infarction.Age-appropri ate cerebral atrophy with mild to moderate periventricular and deep white matter change, nonspecific, potentially sequela of chronic microvascular ischemic disease.No acute facial fracture.) Discharge/Functional statusdischarge instructions (- follow up with PCP in 1 week.- follow up with [facility] 08/06/24- follow up with cardiology regarding heart monitor results) Transferred to [facility] and hospitalized 07/15 through 07/20/2024 for recurrent [...] continuing physical therapy for strengthening and balance. EVANGELINA HOUSTON DO [facility] [place], [address], [facility] 07/23/2024 22:02:11
--- OUTSIDE RECORDS SUMMARY | 2024-08-13 12:47 | XMS_ITS | Encounter Summary ---
Author Organization [facility] Address [address] [place] [address] Support Name Relationship Address Phone Stepan Gold Personal Relationship [address] [place] [address] Mi Gold Personal Relationship Unknown Rosalind Mai Personal Relationship Unknown + [phone] Vivi Ward Personal Relationship Unknown Care Team Providers Care Nitrator Operator Name Role Phone Yehuda Barger MD Primary Care Provider [phone] Milton Crum DO Primary Care Provider Miky Benton MD Primary Care Provider [phone] Provider, Historical Unavailable Unavailable Willi Templeton MD Unavailable [phone] María Andre MD Unavailable [phone] Selene Rodriguez HUMAN RESOURCES PROJECT MANAGER Unavailable Mariah Flowers HUMAN RESOURCES PROJECT MANAGER Unavailable [phone] Neyda Beltran MD Unavailable [phone] Ryanne Roblero MD Unavailable Unavailable Mi Martin APRN Unavailable [phone] Elijah Serra DO Primary Care Provider [phone] iMcha [place] MD Unavailable Encounter Details Date Type Department Care Team (Late st Contact Info) Description 03/11/2002 Historical Encounter Global Yehuda Barger MD [address] [place] [address] Social History Tobacco Use Types Packs/Day Years [...] Description 11/06/2024 11:00 AM EDT Office Visit [facility] Endocrinology [place] [address] [place], [facility] [address] [address] [place] [address] Micha [place] MD [address] [place] [address] [place] [address] Molly Figueroa PA-C [address] [place] [address] [place] [address] documented as of this encounter Visit Diagnoses Not on filedocumented in this encounter Additional Health Concerns Infection Onset Date Last Indicated Resolved Time 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 02/24/2017 02/22/2017 02/22/2017 04/02/2024 9:[address] documented as of this encounter Care Teams Nitrator Operator Relationship Specialty Start Date End Date Yehuda Barger MD [address] [place] [address] PCP - General 02/16/09 04/13/23 Milton Crum DO [address] [place] [address] PCP - General 01/08/09 02/15/09 Miky Louis MD [address] [place] [address] PCP - General 12/26/07 01/07/09 Elijah Serra DO [address] [place] [address] PCP - General Family Medicine 07/21/23 Provider, Historical 02/16/16 08/25/16 Willi Templeton MD [address] [facility] [address] [place] [address] Gastroenterology 02/25/16 María Andre MD [address] [place] [address] [address] [place] [address] Gastroenterology 03/08/16 Selene Rodriguez APRN [address] [place] [address] Gastroenterology 08/23/16 Mariah Flowers APRN [address] [place] [address] [address] [place] [address] Nurse Practitioner 08/26/16 Neyda Beltran MD [address] [place] [address] Nephrology 03/17/17 Ryanne Roblero MD [address] [place] [address] Rheumatology 03/01/18 Mi Martin APRN [address] [place] [address] [address] [place] [address] Nurse Practitioner Nurse Practitioner 04/16/19 Micha [place] MD [address] [place] [address] [address] [place] [address] Endocrinology 08/06/24 08/06/24 documented as of this encounter
--- OUTSIDE RECORDS SUMMARY | 2024-08-13 12:47 | XMS_ITS | Encounter Summary ---
Author Organization Healthcare Address [address] [place] [address] Care Team Providers Care Lift Driver Name Role Phone Elijah Serra DO Primary Care Provider [phone] Encounter Details Date Type Department Care Team (Late st Contact Info) Description 07/15/2024 Orders Only External Location [address] [place] [address] Provider, External Social History Tobacco Use Types [...] and Family Not on file 07/16/2024 Attends [employer] Services Not on file 07/16 Active [...] in the past 12 m [facility], were you homeless or living in a intermediate (including now)? No 07/16/2024 Utilities Answer Date [...] Procedure Name Priority Date/Time Associated Diagnosis Comments XR MSK OUTSIDE IMAGES 07/15/2024 9:00 AM EDT documented in this encounter Results * XR MSK OUTSIDE IMAGES (07/15/2024 9:00 AM EDT) Anatomical Region Laterality Modality Radiographic Mercedez ging 07/15/2024 9:00 AM EDT us External Provider IMG XR PROCEDURES Final Result documented in this encounter Visit Diagnoses Not on filedocumented in this encounter Additional Health Concerns Infection Onset Date Last Indicated Resolved Time MRSA Comment:Added from external infection. Source: [facility]. 02/22/2017 07/15/2024 Respiratory Rule-Out 07/15/2024 07/15/2024 025 10:50 PM EDT Assessment Noted Time A Body Mass Index follow-up plan has been documented for the patient 07/20/2024 1:44 PM EDT documented as of this encounter Care Teams Lift Driver Relationship Specialty Start Date End Date Elijah Serra DO [address] [place] [address] PCP - General Cold Type Artist 12/01/22 documented as of this encounter
--- OUTSIDE RECORDS SUMMARY | 2024-08-13 12:47 | XMS_ITS | Encounter Summary ---
Author Organization [facility] Address [address] [place] [address] Support Name Relationship Address Phone Stepan Gold Personal Relationship [address] [place] [address] Mi Gold Personal Relationship Unknown Rosalind Mai Personal Relationship Unknown + [phone] Vivi Ward Personal Relationship Unknown [phone] Care Team Providers Care Filenet Architect Name Role Phone Yehuda Barger MD Primary Care Provider [phone] Milton Crum DO Primary Care Provider Miky Benton MD Primary Care Provider [phone] Provider, Historical Unavailable Unavailable Willi Templeton MD Unavailable [phone] María Andre MD Unavailable [phone] Selene Rodriguez ORNAMENTAL BRICK INSTALLER Unavailable [phone] Mariah Flowers ORNAMENTAL BRICK INSTALLER Unavailable [phone] Neyda Beltran MD Unavailable [phone] Ryanne Roblero MD Unavailable Unavailable Mi Martin APRN Unavailable [phone] Elijah Serra DO Primary Care Provider [phone] Micha Washington MD Unavailable Encounter Details Date Type Department Care Team (Late st Contact Info) Description 10/20/2000 Historical Encounter Global Agustín Quiñones MD [address] [place] [id number] Social History Tobacco Use Types Packs/Day Years [...] Description 11/06/2024 11:00 AM EDT Office Visit [facility] [address], [facility] [address], [address] [place] [id number] Micha Washington MD [address] [place] [address] [place] [id number] Molly Figueroa PA-C [address] [place] [address] [place] [id number] documented as of this encounter Visit Diagnoses Not on filedocumented in this encounter Additional Health Concerns Infection Onset Date Last Indicated Resolved Time 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 02/24/2017 02/22/2017 02/22/2017 04/02/2024 9:[address] documented as of this encounter Care Teams Filenet Architect Relationship Specialty Start Date End Date Yehuda Barger MD [address] [place] [address] [facility] [place] [address] PCP - General 02/16/09 04/13/23 Milton Crum DO [address] [place] [address] [facility] [place] [address] PCP - General 01/08/09 02/15/09 Miky Louis MD [address] [facility] [place] [address] PCP - General 12/26/07 01/07/09 Elijah Serra DO [address] [place] [address] PCP - General Family Medicine 07/21/23 Provider, Historical 02/16/16 08/25/16 Willi Templeton MD [address] [place] [address] Gastroenterology 02/25/16 María Andre MD [address] [address] [place], [place] [address] Gastroenterology 03/08/16 Selene Rodriguez APRN [address] [place] [address] [address] [place] [address] Gastroenterology 08/23/16 Mariah Flowers APRN [address] [place] [address] [address] [place] [address] Nurse Practitioner 08/26/16 Neyda Beltran MD [address] [facility] [address] [place] [address] Nephrology 03/17/17 Ryanne Roblero MD [address] [place] [address] [address] [place] [address] Rheumatology 03/01/18 Mi Martin APRN [address] [place] [address] [address] [place] [id number] Nurse Practitioner Nurse Practitioner 04/16/19 Micha Washington MD [address] [place] [address] [address] [place], [place] [id number] Endocrinology 08/06/24 08/06/24 documented as of this encounter
--- OUTSIDE RECORDS SUMMARY | 2024-08-13 12:47 | XMS_ITS | Encounter Summary ---
Author Organization Healthcare Address [address] [place] [address] Care Team Providers Care Supervisor Typesetting Name Role Phone Elijah Serra DO Primary Care Provider [phone] Encounter Details Date Type Department Care Team (Late st Contact Info) Description 07/15/2024 Orders Only External Location [address] [place] [address] Provider, External Social History Tobacco Use Types [...] and Family Not on file 07/16/2024 Attends Confucianist Services Not on file 07/16 Active Member [...] any time in the past 12 m [facility], were you homeless or living in [...] Name Priority Date/Time Associated Diagnosis Comments XR OUTSIDE IMAGES 07/15/2024 9:00 AM EDT documented in this encounter Results * XR OUTSIDE IMAGES (07/15/2024 9:00 AM EDT) Anatomical Region Laterality Modality Radiographic Mercedez ging 07/15/2024 9:00 AM EDT External Provider IMG XR PROCEDURES Final Result documented in this encounter Visit Diagnoses Not on filedocumented in this encounter Additional Health Concerns Infection Onset Date Last Indicated Resolved Time MRSA Comment:Added from external infection. Source: [facility]. 02/22/2017 07/15/2024 Respiratory Rule-Out 07/15/2024 07/15/2024 025 10:50 PM EDT Assessment Noted Time A Body Mass Index follow-up plan has been documented for the patient 07/20/2024 1:44 PM EDT documented as of this encounter Care Teams Supervisor Typesetting Relationship Specialty Start Date End Date Elijah Serra DO [address] [place] [address] PCP - General Cold Storage Supervisor 12/01/22 documented as of this encounter
--- OUTSIDE RECORDS SUMMARY | 2024-08-13 12:47 | XMS_ITS | Encounter Summary ---
Author Organization Healthcare Address [address] [place] [id number] Care Team Providers Care Astronaut Mission Specialist Name Role Phone Ponce, Elijah Claudia VASQUES Primary Care Provider [phone] Nancy Trammell LPN Unavailable Unavailabl e Reason for Visit * Reason Comments TCM Call Encounter Details Date Type Department Care Team (Late st Contact Info) Description 07/23/2024 Patient Outreach [facility] [address] [place] [address] Nancy Trammell LPN [facility] TCM Call Social History Tobacco Use Types Packs/Day Years [...] and Family Not on file 07/16/2024 Attends [employer] Services Not on file 07/16 Active Member [...] were you homeless or living in a penitentiary (including now)? No 07/16/2024 Utilities Answer Date Recorded In the past 12 months has th e [employer], gas, oil, or water [employer] threatened to shut off services in your home? No 07/16/2024 Sex and Gender Information Value Date Recorded Sex Assigned at Male 08/31/2023 4:04 PM EDT Legal Sex Male 3:08 PM EDT Gender Identity Not on file Sexual Orientation Not on file documented as of this encounter Miscellaneous Notes * Progress Notes - Nancy Trammell LPN - 07/23/2024 11:03 AM EDT Admit Date: 07/15/2024 Discharge Date: 07/20/2024 Hospital Service: Internal Medicine Discharge Diagnosis: Multifocal pneumonia 07/23/2024 TCM call # 1 Patient Reached: Yes Outcome: Called patient for a TCM nurse call. Unable to reach patient. VM left with a call back number provided. Patient returned TCM nurse call. Patient reports he is doing better. Reports he still has a little cough. Denies chest pain, SOA or fever. Patient requests his [facility] appointment be cancelled due to he has seen his PCP this morning. Reports PCP continued his Antibiotics for 5 more days. Patient deniesany [facility] needs. Patient has no questions or concerns for this nurse at this time. Action: N/A Medication changes: per AVS Start taking amoxicillin-clavulanate (Augmentin) 875-125 mg take one tablet every 12 hours for 5 doses Change how you take Toujeo Max SoloStar 300 UNIT/ML injection pen Decrease from 20 to 10 units at night Stop taking ondansetron 4 MG tablet (Zofran) potassium chloride CR 10 MEQ ER tablet (Klor- Con) sucralfate 1 g tablet (Carafate) tizanidine 4 MG tablet (Zanaflex) [facility] appointment: 08/03/2024 at 10:20 am with Simi Vallejo Items to address at [facility]: N/A documented in this encounter Plan of Treatment Not on file documented as of this encounter Visit Diagnoses Not on filedocumented in this encounter Additional Health Concerns Infection Onset Date Last Indicated Resolved Time MRSA Comment:Added from external infection. Source: [facility]. 02/22/2017 07/15/2024 Assessment Noted Time A Body Mass Index follow-up plan has been documented for the patient 07/20/2024 1:44 PM EDT documented as of this encounter Care Teams Astronaut Mission Specialist Relationship Specialty Start Date End Date Elijah Serra DO [address] [place] [address] PCP - General Title Officer 12/01/22 Nancy Trammell LPN [facility] Nurse 07/23/24 documented as of this encounter
--- OUTSIDE RECORDS SUMMARY | 2024-08-13 12:48 | XMS_ITS | Encounter Summary ---
Author Organization [facility] Address [address] [place] [address] Support Name Relationship Address Phone Stepan Gold Personal Relationship [address] [place] [address] Mi Gold Personal Relationship Unknown Rosalind Mai Personal Relationship Unknown + [phone] Vivi Ward Personal Relationship Unknown [phone] Care Team Providers Care Steward/Stewardess Smoke Room Name Role Phone Yehuda Barger MD Primary Care Provider [phone] Milton Crum DO Primary Care Provider Miky Benton MD Primary Care Provider [phone] Provider, Historical Unavailable Unavailable Willi Templeton MD Unavailable [phone] María Andre MD Unavailable [phone] Selene Rodriguez DOULA Unavailable [phone] Mariah Flowers DOULA Unavailable [phone] Neyda Beltran MD Unavailable [phone] Ryanne Roblero MD Unavailable Unavailable Mi Martin APRN Unavailable [phone] Elijah Serra DO Primary Care Provider [phone] Micha Washington MD Unavailable Encounter Details Date Type Department Care Team (Late st Contact Info) Description 08/26/1995 Historical Encounter Bob Serrano MD [address] [facility] [place] [address] [place] [address] Social History Tobacco Use Types Packs/Day Years [...] 11/06/2024 11:00 AM EDT Office Visit [facility] [place] [address] [place], [facility] [address] [place] [address] Micha Washington MD [address] [place] [address] [address] [place] [address] Molly Figueroa PA-C [address] [place] [address] [address] [place], [place] [id number] documented as of this encounter Visit Diagnoses Not on filedocumented in this encounter Additional Health Concerns Infection Onset Date Last Indicated Resolved Time 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 [place] [address] PCP - General 12/26/07 01/07/09 Elijah Serra DO [address] [place] [address] PCP - General Family Medicine 07/21/23 Provider, Historical 02/16/16 08/25/16 Willi Templeton MD [address] [place] [address] Gastroenterology 02/25/16 María Andre MD [address] [place] [address] Gastroenterology 03/08/16 Selene Rodriguez APRN [address] [place] [address] [address] [place] [address] Gastroenterology 08/23/16 Mariah Flowers APRN [address] [place] [address] [address] [place] [address] Nurse Practitioner 08/26/16 Neyda Beltran MD [address] [place] [address] Nephrology 03/17/17 Ryanne Roblero MD [address] [place] [address] Rheumatology 03/01/18 Mi Martin APRN [address] [place] [address] [address] [place] [id number] Nurse Practitioner Nurse Practitioner 04/16/19 Micha Washington MD [address] [place] [address] [address] [place] [address] Endocrinology 08/06/24 08/06/24 documented as of this encounter
--- OUTSIDE RECORDS SUMMARY | 2024-08-13 12:48 | XMS_ITS | Clinical Summary ---
Author Organization Healthcare Address [address] [id number] Care Team Providers Care Mobile Application Architect Name Role Phone Ponce Elijah Claudia VASQUES Primary Care Provider [phone] Nancy Trammell LPN Unavailable Unavailabl e Allergies Active Allergy Reactions Criticality Noted Date Comments Iodinated Contrast Media Anaphylaxis High 02/16/2009 Pt required premedication prior to receiving IV dye. Iodine Swelling High 08/31/2023 iodine Plastibase Rash Low 08/31/2023 Tape/Bandaid Adhesive Rash High 06/08/2021 Blisters Medications allopurinol (Zyloprim) 300 MG tablet Take 1 tablet by mouth daily. Active clopidogrel (Plavix) 75 MG tablet Take 1 tablet by mouth daily. Active colchicine (Colcrys) 0.6 MG tablet Take 1 tablet by mouth 2 times a day. Active colestipol (Colestid) 1 g tablet Take 1 tablet by mouth 2 times a day after meals. Take at least 1 hour after or 4 hours before other medications. Active donepezil (Aricept) 10 MG tablet Take 1 tablet by mouth nightly. Active DULoxetine (Cymbalta) [address] capsule Take 1 capsule by mouth 2 times a day. Do not crush or chew. Active erythromycin (Romycin) 5 MG/GM ophthalmic ointment APPLY 1/4 INCH RIBBON TO RIGHT EYE TWICE DAILY Active finasteride (Proscar) 5 MG tablet Take 1 tablet by mouth daily. Do not crush, chew, or split. Active fluticasone (Flonase) 50 MCG/ACT nasal spray Administer 1 spray into each nostril daily. Shake gently. Before first use, prime pump. After use, clean tip and replace cap. Active furosemide (Lasix) 40 MG tablet Take 1 tablet by mouth daily. Active gabapentin (Neurontin) 800 MG tablet Take 1 tablet by mouth 3 times a day. Active HYDROcodone-ac etaminophen ([place]) 10-325 MG tablet Take 1 tablet by mouth every 6 hours as needed for severe pain. Active hydroxychloroq uine (Plaquenil) 200 MG tablet Take 1 tablet by mouth 2 times a day. Active insulin aspart (NovoLOG Flexpen) 100 UNIT/ML injection Inject 8-16 Units under the skin 3 times a day with meals. Active levothyroxine (Synthroid, Levoxyl) 150 MCG tablet Take 1 tablet by mouth daily before breakfast. Active lisinopril 2.5 MG tablet Take 1 tablet by mouth daily. Active metoprolol succinate XL (Toprol-XL) 25 MG 24 hr tablet Take 0.5 tablets by mouth daily. Do not crush or chew. Active rosuvastatin (Crestor) 20 MG tablet Take 1 tablet by mouth nightly. Active tamsulosin (Flomax) 0.4 MG 24 hr capsule Take 2 capsules by mouth daily. Active traZODone (Desyrel) 150 MG tablet Take 1 tablet by mouth nightly. Active ASPIRIN 81 MG chewable tablet Chew 1 tablet daily. Active valACYclovir (Valtrex) 500 MG tablet Take 1 tablet by mouth daily. Active ascorbic acid (vitamin C) 1000 MG tablet Take 1 tablet by mouth daily. Active multivitamin (Theragran) tablet Take 1 tablet by mouth daily. Active aspirin-acetam inophen-caffei ne (Excedrin Migraine) 250-250-65 MG tablet Take 1 tablet by mouth every 6 hours as needed for headaches. Active Insulin Glargine, 2 Unit Dial, (Toujeo Max SoloStar) 300 UNIT/ML injection pen Inject 10 Units under the skin nightly. 6 mL 3 07/21/19 25 Active Insulin Glargine, 2 Unit Dial, (Toujeo Max SoloStar) 300 UNIT/ML injection pen Inject 20 Units under the skin nightly. 025 Discontinued potassium chloride CR (Klor-Con) 10 MEQ ER tablet Take 1 tablet by mouth daily. Do not crush, chew, or split. 06/13/2 025 Discontinued(St op Taking at Discharge) sucralfate (Carafate) 1 g tablet Take 1 tablet by mouth 2 times a day. 025 Discontinued(St op Taking at Discharge) tiZANidine (Zanaflex) 4 MG tablet Take 1 tablet by mouth every 6 hours as needed for muscle spasms. 025 Discontinued(St op Taking at Discharge) ondansetron (Zofran) 4 MG tablet Take 1 tablet by mouth every 8 hours as needed for nausea or vomiting. 025 Discontinued(St op Taking at Discharge) amoxicillin-cl avulanate (Augmentin) 875-125 MG tabletIndicati ons:Multifocal pneumonia Take 1 tablet by mouth every 12 hours for 5 doses. 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 -Afebrile, 92% 2L NC, BP trending soft in ED -WBC 9.39, ANC 7.37 -VBG 7.45/44/51 -Procalcitonin >4 -Nasopharyngeal PCR negative -Strep Pneumo and Legionella Urine Ag negative PLAN -admit to at [place] on PCU with telemetry, continuous pulse ox x48h -Stat BCX2, MDRT, and sputum Cx -Empiric Zosyn with pharmacy dosing -Consult ID in AM -Consider Pulm Consult Acute hypoxic respiratory failure 07/15/2024 Assessment & Plan (07/16/2024 12:43 AM EDT): -in setting of multifocal PNA -not on home O2 at baseline PLAN -Wean supplemental O2 to keep sat >92% -Duoneb q6h x 24h, then PRN Fall (on) (from) other stairs and steps, initial encounter 07/15/2024 Assessment & Plan (07/16/2024 12:43 AM EDT): -uses cane/walker at baseline -worsening generalized weakness last 3-4 days -this AM lost balance walking to bathroom, falling down 12-15 wood stairs before landing on concrete -OSH and repeat imaging no acute fracture or malalignment PLAN -fall precautions -inpatient PT/OT consult Anemia of chronic disease 07/15/2024 Assessment & Plan (07/16/2024 12:43 AM EDT): -and likely CKD in setting of acute right flank/lumbar hematoma PLAN -trend Hgb, transfuse to keep >7 -iron studies, ferritin pending Traumatic hematoma of flank 07/15/2024 Assessment & Plan (07/16/2024 12:43 AM EDT): -right flank/lower back 2/2 fall down stairs before landing on right side on concrete -Hgb 9.9 -> OSH Hgb 11.6 -last dose of ASA/Plavix yesterday PLAN -hold ASA/Plavix as above -madi borders of hematoma, monitor q8h, and notify provider if enlarging -low threshold for CTA if drop in Hgb, change in HDS, or increasing hematoma Sensorineural hearing loss (SNHL) of both ears 0 02/17/2024 Overview (07/15/2024): f/w [facility] Chronic arthritis due to and not concurrent with rheumatic fever 12/27/2023 Benign prostatic hyperplasia 12/27/2023 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 07/21/2023 Bronchiectasis 11/05/2022 Assessment & Plan (07/16/2024 12:43 AM EDT): -Hypertonic 3% saline neb twice daily PRN -Mucinex 600 mg twice daily PRN -Consult RT for chest physiotherapy in AM Stage 3a chronic kidney disease 07/14/2022 Assessment & Plan (07/16/2024 12:43 AM EDT): -follows with Nephrology at [facility] -Cr 1.03, EGFR 78.1 -> unknown baseline Cr PLAN -UA pending -avoid NSAIDS/nephrotoxins, renally dose meds based on EGFR -strict I/O, trend Cr Chronic diastolic heart failure 12/21/2021 Assessment & Plan (07/16/2024 12:43 AM EDT): -follows with Cardiology at [facility] -04/03/24 ECHO: LVEF 50-55%, mild LVH, grade I/IV or mild diastolic dysfunction -NTproBNP 933 -clinically dry on exam PLAN -hold furosemide with KCL overnight -Pharm Med Rec in AM re: ?lisinopril -2g Na diet, daily weight Mild cognitive impairment 06/19/2021 Sleep apnea 06/19/2021 Overview (07/15/2024): Intolerant of CPAP Oropharyngeal dysphagia 01/06/2021 Overview (07/15/2024): EGD 01/2021, dilated, recc 3y f/u Assessment & Plan (07/16/2024 12:43 AM EDT): -Last esophageal dilation around 1yr ago PLAN -Aspiration precautions -SOCIAL MEDIA ANALYST consulted Macular degeneration 12/19/2020 Overview (07/15/2024): [facility] Spondylolisthesis of lumbar region 10/23/2020 Overview (07/15/2024): f/w Dr Reynoso Calcium pyrophosphate deposition disease 021 Hyperparathyroidism due to renal insufficiency 0 07/01/2020 Overview (07/15/2024): NM parathyroid normal Type 1 diabetes mellitus with diabetic polyneuro monica 06/19/2020 Post-surgical hypothyroidism 03/19/2019 Overview (07/15/2024): left and isthmus 1970 Benign essential hypertension 12/12/2018 Atherosclerosis of aorta 12/12/2018 Primary osteoarthritis involving multiple joints 12/12/2018 Overview (07/15/2024): Hands, low back, feet S/p bilateral JACQUE (left in 1989', right in 2013 ), right TKA (1999) 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 09/14/2018 Overview (07/15/2024): - Xrays suggestive of gouty erosions in right 3,5 DIP - h/o gout - not crystal proven - nephrolithiasis + - CKD + stage 3 - h/o Gout 2 episodes so far in the both toe right > left , last attack 2 years ago Rheumatoid arthritis 09/14/2018 Overview (07/15/2024): hydroxychloroquine, cymbalta f/w Rheum Assessment & Plan (07/16/2024 12:43 AM EDT): -follows with Rheumatology at [facility] PLAN -continue plaquenil and Coronary arteriosclerosis 07/13/2009 Overview (07/15/2024): s/p 5V CABG (2001), SANDY x2 (2009), SANDY x3 (2016) Assessment & Plan (07/16/2024 12:43 AM EDT): -s/p 5V CABG (2001), SANDY x2 (2009), SANDY x3 (2016) -MAP trending 70 in ED -Troponin HS delta not significant -EKG no acute ischemic changes PLAN -hold metoprolol XL acutely--> 500 ml NS bolus over 4h -hold ASA/Plavix while monitor hematoma/Hgb -continue rosuvastatin Mixed hyperlipidemia 07/13/2009 Resolved Problems Problem Noted Date Diagnosed Date Resolved Date Pain of left hip joint 08/27/202207/15 Tear of supraspinatus tendon 09/18/2020 07/15/2024 Overview (07/15/2024): R, full thickness MRI 07/2020 Nephrolithiasis 12/12/2018 07/15/2024 Drug-induced anaphylaxis 02/10/201209/2024 Synovitis of foot 08/19/2011 07/15/2024 Encounters Date Type Department Care Team Description 08/02/2024 Patient Outreach [address], [address] [place] [address] Nancy Trammell LPN Follow-up 07/23/2024 Patient Outreach [address], [address] [place] [address] Nancy Trammell LPN TCM Call 07/20/2024 Travel 07/18/2024 Travel 07/15/2024 4:26 PM EDT - 07/20/2024 2:59 PM EDT Hospital Encounter [facility] Inpatient [address] [place] [address] Hans Stephenson MD Arndt, MD Melissa Rodgers, Dc Meneses MD Aric, Edgardo Gaytan MD Multifocal pneumonia (Primary Dx); Fall, initial encounter Discharge Disposition: Home or Self Care 07/15/2024 Orders Only External Location [address] [place] [address] Provider, External 07/15/2024 Orders Only External Location [address] [place] [address] Provider, External 07/15/2024 Travel 07/15/2024 Orders Only External Location [address] [place] [address] Provider, External 07/15/2024 Orders Only External Location [address] [place] [address] Provider, External from Last 3 Months Immunizations Immunization Administration Dates Next Due Hep A, Adult 07/08/2017 Influenza Vaccine, Quadrival ent, Adjuvanted 12/07/2019 Influenza Whole 12/18/2013,12/09/2011 Influenza, High-dose, Split Virus, Trivalent, Injectable, preservative free 01/26/2024 Influenza, Unspecified 12/08/2020 Influenza, high-dose, quadrivalent 12/01/2022,,12/19/2020 Influenza, injectable, quadrivalent 11/10/2018,1 Influenza, seasonal, injectable 03/03/19 18,12/18/2015,01/08/2015,2012 Influenza, seasonal, intrade rmal, preservative free 11/10/2018,12/05/2017 Pneumococcal Conjugate PCV 13 01/07/2011 Respiratory Syncytial Virus (Rsv) Mab, Unspecified 01/24/2023 Rsvpref, Recombinant, Protei n Subunit, Adjuvent 01/24/2023 SARS-CoV-2, Unspecified 01/24/2023,11/11,05/09/2020,2020 Tdap 07/15/2024,04/26/2019,08/24/2012 Zoster, Recombinant 09/15/2021,07/15/2021 Social History Tobacco Use Types Packs/Day Years Used Date Smoking Tobacco: Never Smokeless Tobacco: Never Tobacco Cessation:Counseling Given: Not Answered Humiliation, Afraid, Rape, and Kick questionnair e [...] and Family Not on file 07/16/2024 Attends [employer] Not on file 07/16 Active Member [...] any time in the past 12 m [facility], were you homeless or living in [...] Mass Index 27.58 07/16/2024 7:29 AM EDT Plan of Treatment Health Maintenance Due Date Last Done Comments [facility]-Depression Screening 1955 [facility]-Diabetes: Hemoglobin A1C 1955 [facility]-Medicare Annual Wellness (AWV) 1955 [facility]-/Child/Adol SDOH Screenings 1955 Diabetes: Dental Exam 12/14/1963 CT Colonography 1998 Colonoscopy 1998 FIT-DNA 1998 FIT 1998 Sigmoidoscopy 1998 [facility]-Pneumococcal Vaccine: 50+ Years (2 of 2 - PPSV23) 03/04/2011 01/07/2011 FOBT 03/24/2018 03/24/2017 [facility]-Colorectal Cancer Screening 03/24/2018 [id number] Vaccine (6 - Mixed Product risk season) 2024 01/26/2024, 01/24/2023, 11/11/2020, Additional history exists [facility]-Influenza Vaccine (#1) 10/08/202401/25, 12/01/2022, 12/21/2021, Additional history exists [facility]- SDOH Screenings 01/15/2025 [facility]-Adult SDOH Screenings 01/15/2025 07/16/2024 [facility]-DTaP,Tdap,and Td Vaccines (4 - Td or Tdap) 07/15/2034 07/15/2024, 04/26/2019, 08/24/2012 [facility]-Hepatitis A Vaccines Aged Out 07/08/2017 No longer eligible based on patient's age to complete this topic [facility]-Zoster Vaccines Completed 09/15/2021, [facility]-RSV Vaccine: 60+ Years or Completed 01/24/2023 [facility]-Hepatitis C Screening Completed 08/31/2023 [facility]-Obesity Intervention Completed 025, 02/17/2024, 02/17/2024, Additional history exists HPV Vaccines Aged Out No longer eligi ble based on patient's age to complete this topic [facility]-HIB Vaccines Aged Out No longer e ligible based on patient's age to complete this topic [facility]-IPV Vaccines Aged Out No longer e ligible based on patient's age to complete this topic [facility]-Rotavirus Vaccines Aged Out No lo nger eligible based on patient's age to complete this topic Procedures Procedure Name Priority Date/Time Associated Diagnosis Comments POCT GLUCOSE METER UNSOLICITED RESULTS Routine 07/20/2024 12:23 PM EDT XR CHEST 1 VIEW Routine 07/20/2024 9:07 AM EDT POCT GLUCOSE METER UNSOLICITED RESULTS Routine 07/20/2024 8:56 AM EDT PROCALCITONIN, PLASMA Routine 07/20/2024 4:22 AM EDT LACTATE, VENOUS Routine 07/20/2024 4:22 AM EDT CYSTATIN C Routine 07/20/2024 4:22 AM EDT C-REACTIVE PROTEIN, PLASMA Routine 07/20/2024 4:22 AM EDT COMPREHENSIVE METABOLIC PANEL, PLASMA Routine 07/20/2024 4:22 AM EDT PHOSPHORUS, PLASMA Routine 07/20/2024 4: 22 AM EDT MAGNESIUM, PLASMA Routine 07/20/2024 4:2 2 AM EDT CBC WITH AUTO DIFFERENTIAL Routine 07/20/2024 4:22 AM EDT POCT GLUCOSE METER UNSOLICITED RESULTS Routine 07/19/2024 7:21 PM EDT POCT GLUCOSE METER UNSOLICITED RESULTS Routine 07/19/2024 5:09 PM EDT POCT GLUCOSE METER UNSOLICITED RESULTS Routine 07/19/2024 11:27 AM EDT POCT GLUCOSE METER UNSOLICITED RESULTS Routine 07/19/2024 7:42 AM EDT FREE T4, PLASMA Routine 07/19/2024 12:02 AM EDT ALPHA FETOPROTEIN, SERUM Routine 07/19/2024 12:02 AM EDT PROSTATE CANCER SCREEN, SERUM Routine 07/19/2024 12:02 AM EDT CANCER ANTIGEN, GI (CA 19.9) Routine 07/19/2024 12:02 AM EDT CEA, SERUM Routine 07/19/2024 12:02 AM EDT CYSTATIN C Routine 07/19/2024 12:02 AM EDT C-REACTIVE PROTEIN, PLASMA Routine 07/19/2024 12:02 AM EDT COMPREHENSIVE METABOLIC PANEL, PLASMA Routine 07/19/2024 12:02 AM EDT PHOSPHORUS, PLASMA Routine 07/19/2024 12 :02 AM EDT MAGNESIUM, PLASMA Routine 07/19/2024 12: 02 AM EDT CBC WITH AUTO DIFFERENTIAL Routine 07/19/2024 12:02 AM EDT POCT GLUCOSE [...] UNSOLICITED RESULTS Routine 07/18/2024 7:49 AM EDT N-TERMINAL PROBNP, PLASMA Add-On 07/18/2024 5:48 AM EDT CYSTATIN C Routine 07/18/2024 5:48 AM EDT C-REACTIVE PROTEIN, PLASMA Routine 07/18/2024 5:48 AM EDT COMPREHENSIVE METABOLIC PANEL, PLASMA Routine 07/18/2024 5:48 AM EDT PHOSPHORUS, PLASMA Routine 07/18/2024 5: 48 AM EDT MAGNESIUM, PLASMA Routine 07/18/2024 5:4 8 AM EDT CBC WITH AUTO DIFFERENTIAL Routine 07/18/2024 5:48 AM EDT POCT GLUCOSE METER UNSOLICITED RESULTS Routine 07/17/2024 8:07 PM EDT POCT GLUCOSE METER UNSOLICITED RESULTS Routine 07/17/2024 5:28 PM EDT POCT GLUCOSE METER UNSOLICITED RESULTS Routine 07/17/2024 11:34 AM EDT POCT GLUCOSE METER UNSOLICITED RESULTS Routine 07/17/2024 8:06 AM EDT CREATINE KINASE, TOTAL, PLASMA Routine 07/17/2024 3:14 AM EDT CYSTATIN C Routine 07/17/2024 3:14 AM EDT C-REACTIVE PROTEIN, PLASMA Routine 07/17/2024 3:14 AM EDT COMPREHENSIVE METABOLIC PANEL, PLASMA Routine 07/17/2024 3:14 AM EDT PHOSPHORUS, PLASMA Routine 07/17/2024 3: 14 AM EDT MAGNESIUM, PLASMA Routine 07/17/2024 3:1 4 AM EDT CBC WITH AUTO DIFFERENTIAL Routine 07/17/2024 3:14 AM EDT TSH REFLEX FT4 Routine 07/17/2024 3:14 AM EDT FOLATE, SERUM Routine 07/17/2024 3:14 AM EDT VITAMIN B12, SERUM Routine 07/17/2024 3: 14 AM EDT FERRITIN, SERUM Routine 07/17/2024 3:14 AM EDT POCT GLUCOSE [...] UNSOLICITED RESULTS Routine 07/16/2024 6:51 AM EDT RETICULOCYTES, BLOOD Add-On 07/16/2024 4:22 AM EDT IRON & TOTAL IRON BINDING CAPACITY, PLASMA (INCLUDES TRANSFERRIN) Add-On 07/16/2024 4:22 AM EDT CBC W/O DIFFERENTIAL Routine 07/16/2024 4:22 AM EDT LACTATE, VENOUS Routine 07/16/2024 4:22 AM EDT MAGNESIUM, PLASMA Routine 07/16/2024 4:2 2 AM EDT RENAL FUNCTION PANEL, PLASMA Routine 07/16/2024 4:22 AM EDT PROTHROMBIN TIME(PT) / INR Routine 07/16/2024 4:22 AM EDT TYPE AND SCREEN Routine 07/15/2024 11:25 PM EDT HEMOGLOBIN AND HEMATOCRIT, BLOOD STAT 07/15/2024 11:25 PM EDT MULTI DRUG RESISTANCE TEST Routine 07/15/2024 11:25 PM EDT POCT GLUCOSE METER UNSOLICITED RESULTS Routine 07/15/2024 9:18 PM EDT ECG ADULT Routine 07/15/2024 8:56 PM EDT PAIN MANAGEMENT, QUANTITATIVE URINE DRUG TESTING STAT 07/15/2024 8:33 PM EDT PAIN MANAGEMENT, QUANTITATIVE URINE DRUG TESTING STAT 07/15/2024 8:33 PM EDT COMPREHENSIVE URINE DRUG SCREENING,QUALITATIVE ASSAY, >= 27 DRUG CLASSES STAT 07/15/2024 8:33 PM EDT URINE KAT PANEL STAT 07/15/2024 8:33 PM EDT URINALYSIS WITH REFLEX MICROSCOPIC STAT 07/15/2024 8:33 PM EDT URINALYSIS WITH REFLEX MICROSCOPIC AND CULTURE STAT 07/15/2024 8:33 PM EDT STREPTOCOCCUS PNEUMONIAE AND LEGIONELLA URINARY ANTIGEN STAT 07/15/2024 8:33 PM EDT NASOPHARYNGEAL RESPIRATORY PANEL STAT 07/15/2024 8:33 PM EDT N-TERMINAL PROBNP, PLASMA Add-On 07/15/2024 7:49 PM EDT BLOOD GAS PANEL, VENOUS STAT 07/16/19 7:49 PM EDT PROCALCITONIN, PLASMA STAT 07/15/2024 7:49 PM EDT BLOOD CULTURE (AEROBIC/ANAEROBIC SET) STAT 07/15/2024 7:49 PM EDT BLOOD CULTURE (AEROBIC/ANAEROBIC SET) STAT 07/15/2024 7:49 PM EDT TROPONIN T, HIGH SENSITIVITY, 2 HOUR, PLASMA Timed 07/15/2024 7:[address] FACE WO IV CONTRAST STAT 6:[address] ABDOMEN PELVIS WO IV CONTRAST STAT 07/15/2024 5:[address] CHEST WO IV CONTRAST STAT 07/16/19 5:[address] HEAD WO IV CONTRAST STAT 5:[address] CERVICAL SPINE WO IV CONTRAST STAT 07/15/2024 5:[address] THORACIC SPINE WO IV CONTRAST STAT 07/15/2024 5:[address] LUMBAR SPINE WO IV CONTRAST STAT 07/15/2024 5:56 PM EDT XR KNEE LEFT 3 VIEWS STAT 07/15/2024 5:41 PM EDT XR FEMUR LEFT 2+ VIEWS STAT 5:41 PM EDT XR HIP LEFT 2 OR 3 VIEWS STAT 07/15/2024 5:41 PM EDT XR KNEE RIGHT 3 VIEWS STAT 07/15/2024 5:41 PM EDT XR TIBIA FIBULA RIGHT 2+ VIEWS STAT 07/15/2024 5:41 PM EDT XR ANKLE RIGHT 3+ VIEWS STAT 07/16/19 5:41 PM EDT PROTHROMBIN TIME(PT) / INR STAT 07/15/2024 5:03 PM EDT CBC WITH AUTO DIFFERENTIAL STAT 07/15/2024 5:03 PM EDT TROPONIN T, HIGH SENSITIVITY, 0 HOUR, PLASMA, REFLEX TO 2 HOUR STAT 07/15/2024 5:03 PM EDT LIPASE, PLASMA STAT 07/15/2024 5:03 PM EDT MAGNESIUM, PLASMA STAT 07/15/2024 5:0 3 PM EDT COMPREHENSIVE METABOLIC PANEL, PLASMA STAT 07/15/2024 5:03 PM EDT POCT GLUCOSE METER UNSOLICITED RESULTS Routine 07/15/2024 4:[address] NEURO OUTSIDE IMAGES 07/16/19 9:[address] NEURO OUTSIDE IMAGES 07/16/19 9:56 AM EDT XR MSK OUTSIDE IMAGES 07/15/2024 9:00 AM EDT XR OUTSIDE IMAGES 07/15/2024 9:0 0 AM EDT HEPATITIS C ANTIBODY - ED W/REFLEX TO HCV QUANT PCR STAT 08/31/2023 4:18 PM EDT from Last 3 Months or Most Recently Relevant to Health Maintenance Results * (ABNORMAL) POCT glucose meter (07/20/2024 12:23 PM EDT) Only the most recent of24 resultswithin the time period is included. POCT Glucose 273(H) 74 - 99 mg/dL [...] for testing. Comment 07/20/2024 12:25 PM EDT [facility] Manager Sports ID Xiomara Jackson 07/21/19 12:25 PM EDT HEALTHCARE LAB Device ID [id number] 07/20/2024 12:25 PM EDT [facility] Specimen Type POC Capillary 07/20/2024 12:25 PM EDT [facility] Blood Capillary blood specimen / Unknown 07/20/2024 12:23 PM EDT 07/20/2024 12:25 PM EDT Edgardo Corbett MD LAB POINT OF CARE TE ST DOCKED DEVICE UNSOLICITED RESULTS Final Result Performing Organization Address City/State/[facility] Co de Phone Number [facility] [address] [place] [address] * XR Chest 1 View (07/20/2024 9:07 [...] MD IMG XR PROCEDURES Final Result * Lactate, venous (07/20/2024 4:22 AM EDT) Only the most recent of2 resultswithin the time period is included. Pathologist [facility] Lactate, Venous, Whole Blood 2.0 0.5 - 2.2 mmol/L LAB HEMATOLOGY METHOD 07/20/2024 4:31 AM EDT [facility] Blood Venous blood specimen / Unknown Venipuncture / Unknown 07/20/2024 4:22 AM EDT 07/20/2024 4:28 AM EDT us Edgardo Corbett MD LAB BLOOD ORDERABLES Final Resu lt [facility] [address] [place] [address] * (ABNORMAL) Cystatin C (07/20/2024 4:22 AM EDT) Only the most recent of4 resultswithin the time period is included. Cystatin C 1.17(H) 0.61 - 0.95 mg/L 07/20/2024 5:05 AM EDT [facility] Blood Venous blood specimen / Unknown Venipuncture / Unknown 07/20/2024 4:22 AM EDT 07/20/2024 4:32 AM EDT Edgardo Corbett MD LAB BLOOD ORDERABLES Final Resu lt Performing Organization Address [facility] de Phone Number [facility] [address] [place] [address] * (ABNORMAL) Procalcitonin (07/20/2024 4:22 AM EDT) Only the most recent of2 resultswithin the time period is included. Pathologist [facility] Procalcitonin, Plasma 0.61(H) <0.09 ng/mL 07/20/2024 5:09 AM EDT [facility] Blood Venous blood specimen / Unknown Venipuncture / Unknown 07/20/2024 4:22 AM EDT 07/20/2024 4:32 AM EDT Narrative [facility] - 07/20/2024 5:09 AM [...] predict 28 day mortality risk. Please consult [email or web address] for more information. Test performed at [facility]. us Edgardo Corbett MD LAB BLOOD ORDERABLES Final Resu lt Performing Organization Address [facility] [address]/[facility] Co de Phone Number [facility] [address] [place] [address] * (ABNORMAL) CBC and Differential (07/20/2024 4:22 AM EDT) Only the most recent of5 resultswithin the time period is included. WBC Count 6.15 3.70 - 10.30 10*3/uL LAB HEMATOLOGY METHOD 07/20/2024 4:42 AM EDT [facility] RBC Count 4.08(L) 4.60 - 6.10 10*6/uL LAB HEMATOLOGY METHOD 07/20/2024 4:42 AM EDT [facility] HGB 11.2(L) 13.7 - 17.5 g/dL LAB HEMATOLOGY METHOD 07/20/2024 4:42 AM EDT [facility] HCT 35.9(L) 40.0 - 51.0 % LAB HEMATOLOGY METHOD 07/20/2024 4:42 AM EDT [facility] Platelet Count 149(L) 155 - 369 10*3/uL LAB HEMATOLOGY METHOD 07/20/2024 4:42 AM EDT [facility] MCV 88 79 - 98 fL LAB HEMATOLOGY METHOD 07/20/2024 4:42 AM EDT [facility] MCH 27.5 26.0 - 32.0 pg LAB HEMATOLOGY METHOD 07/20/2024 4:42 AM EDT [facility] MCHC 31.2 30.7 - 35.5 g/dL LAB HEMATOLOGY METHOD 07/20/2024 4:42 AM EDT [facility] RDW 16.1(H) 11.5 - 14.5 % LAB HEMATOLOGY METHOD 07/20/2024 4:42 AM EDT [facility] MPV 9.4 8.8 - 12.5 fL LAB HEMATOLOGY METHOD 07/20/2024 4:42 AM EDT [facility] nRBC 0.0 <=0.0 per 100 WBCs LAB HEMATOLOGY METHOD 07/20/2024 4:42 AM EDT [facility] Differential Type Automated LAB HEMATOLOGY METHOD 07/20/2024 4:42 AM EDT [facility] Neutrophils % 41 % LAB HEMATOLOGY METHOD 07/20/2024 4:42 AM EDT [facility] Lymphocytes % 35 % LAB HEMATOLOGY METHOD 07/20/2024 4:42 AM EDT [facility] Monocytes % 7 % LAB HEMATOLOGY METHOD 07/20/2024 4:42 AM EDT [facility] Eosinophils % 15 % LAB HEMATOLOGY METHOD 07/20/2024 4:42 AM EDT [facility] Basophils % 1 % LAB HEMATOLOGY METHOD 07/20/2024 4:42 AM EDT [facility] Immature Granulocytes % 1 % LAB HEMATOLOGY METHOD 07/20/2024 4:42 AM EDT [facility] Neutrophils Absolute 2.55 1.60 - 6.10 10*3/uL LAB HEMATOLOGY METHOD 07/20/2024 4:42 AM EDT [facility] Lymphocytes Absolute 2.17 1.20 - 3.90 10*3/uL LAB HEMATOLOGY METHOD 07/20/2024 4:42 AM EDT [facility] Monocytes Absolute 0.45 0.30 - 0.90 10*3/uL LAB HEMATOLOGY METHOD 07/20/2024 4:42 AM EDT [facility] Eosinophils Absolute 0.91(H) 0.00 - 0.50 10*3/uL LAB HEMATOLOGY METHOD 07/20/2024 4:42 AM EDT [facility] Basophils Absolute 0.04 0.00 - 0.10 10*3/uL LAB HEMATOLOGY METHOD 07/20/2024 4:42 AM EDT [facility] Immature Granulocytes Absolute 0.03 0.00 - 0.06 10*3/uL LAB HEMATOLOGY METHOD 07/20/2024 4:42 AM EDT [facility] Blood Venous blood specimen / Unknown Venipuncture / Unknown 07/20/2024 4:22 AM EDT 07/20/2024 4:34 AM EDT Narrative [facility] - 07/20/2024 4:42 AM EDT Therapeutic decision making should be based on absolute values, rather than percentages. Dc Torres MD LAB BLOOD ORDERABLES Final Result [facility] [address] [place] [address] * (ABNORMAL) C-Reactive Protein, Plasma (07/20/2024 4:22 AM EDT) Only the most recent of4 resultswithin the time period is included. CRP, Plasma 149.7(H) <=8.0 mg/L 07/20/2024 5:05 AM EDT [facility] Blood Venous blood specimen / Unknown Venipuncture / Unknown 07/20/2024 4:22 AM EDT 07/20/2024 4:32 AM EDT Narrative [facility] - 07/20/2024 5:05 AM EDT This CRP test is appropriate for assessment of infection, systemic inflammation and/or tissue injury. To assess cardiovascular disease risk order high sensitivity CRP (CRPH). Edgardo Corbett MD LAB BLOOD ORDERABLES Final Resu lt Performing Organization Address City/[facility] [address]/ZIP Co de Phone Number [facility] [address] [place] [address] * Phosphorus, Plasma (07/20/2024 4:22 AM EDT) Only the most recent of4 resultswithin the time period is included. Phosphorus, Plasma 3.1 2.5 - 4.5 mg/dL 07/20/2024 5:05 AM EDT [facility] Blood Venous blood specimen / Unknown Venipuncture / Unknown 07/20/2024 4:22 AM EDT 07/20/2024 4:32 AM EDT Dc Torres MD LAB BLOOD ORDERABLES Final Result Performing Organization Address [facility] Co de Phone Number [facility] [address] [place] [address] * Magnesium, Plasma (07/20/2024 4:22 AM EDT) Only the most recent of6 resultswithin the time period is included. Magnesium, Plasma 1.9 1.9 - 2.4 mg/dL 07/20/2024 5:05 AM EDT [facility] Blood Venous blood specimen / Unknown Venipuncture / Unknown 07/20/2024 4:22 AM EDT 07/20/2024 4:32 AM EDT cD Torres MD LAB BLOOD ORDERABLES Final Result Performing Organization Address [facility] [address]/[facility] Co de Phone Number [facility] [address] [place] [address] * (ABNORMAL) Comprehensive Metabolic Panel, Plasma (07/20/2024 4:22 AM EDT) Only the most recent of5 resultswithin the time period is included. Glucose, Plasma 146(H) 74 - 99 mg/dL 07/20/2024 5:05 AM EDT [facility] BUN, Plasma 8 8 - 23 mg/dL 07/20/2024 5:05 AM EDT [facility] Creatinine, Plasma 0.89 0.70 - 1.20 mg/dL 07/20/2024 5:05 AM EDT [facility] BUN/Creatinine Ratio 9 07/20/2024 5:05 AM EDT [facility] Sodium, Plasma 141 136 - 145 mmol/L 07/20/2024 5:05 AM EDT [facility] Potassium, Plasma 3.6 3.6 - 4.9 mmol/L 07/20/2024 5:05 AM EDT [facility] Chloride, Plasma 103 97 - 107 mmol/L 07/20/2024 5:05 AM EDT [facility] CO2, Plasma 24 22 - 29 mmol/L 07/20/2024 5:05 AM EDT [facility] Anion Gap 14 6 - 16 mmol/L 07/20/2024 5:05 AM EDT [facility] Total Calcium, Plasma 9.4 8.9 - 10.2 mg/dL 07/20/2024 5:05 AM EDT [facility] Total Protein 7.3 6.3 - 7.9 g/dL 07/20/2024 5:05 AM EDT [facility] Albumin, Plasma 3.3(L) 3.5 - 5.2 g/dL 07/20/2024 5:05 AM EDT [facility] AST, Plasma 30 10 - 50 U/L 07/20/2024 5:05 AM EDT [facility] ALT, Plasma 34 10 - 50 U/L 07/20/2024 5:05 AM EDT [facility] Alkaline Phosphatase, Plasma 118(H) 40 - 115 U/L 07/20/2024 5:05 AM EDT [facility] Total Bilirubin, Plasma 0.7 0.2 - 1.1 mg/dL 07/20/2024 5:05 AM EDT [facility] eGFRcr 92.2 mL/min/1.7 3m*2 07/20/2024 5:05 AM EDT [facility] Comment:Reported eGFRcr in m L/min/1.73m2 is based the CKD-EPI 2020 equation that does not use a race coefficient. Blood Venous blood specimen / Unknown Venipuncture / Unknown 07/20/2024 4:22 AM EDT 07/20/2024 4:32 AM EDT Edgardo Corbett MD LAB BLOOD ORDERABLES Final Resu lt Performing Organization Address City/[facility] [address]/ZIP Co de Phone Number [facility] [address] [place] [address] * Alpha Fetoprotein, Serum (07/19/2024 12:02 AM EDT) Alpha Fetoprotein, Serum <2.3 <10.0 ng/mL 07/19/2024 2:39 AM EDT [facility] Blood Venous blood specimen / Unknown Venipuncture / Unknown 07/19/2024 12:02 AM EDT 07/19/2024 12:06 AM EDT Narrative [facility] - 07/19/2024 2:39 AM EDT Performed by Faisal electrochemiluminescent immunoassay which is traceable to the 1st AFP IRP WHO Reference standard 72/255. Results obtained with different test methods or kits cannot be used interchangeably. Edgardo Corbett MD LAB BLOOD ORDERABLES Final Resu lt [facility] [address] [place] [address] * Prostate Cancer Screen, Serum (07/19/2024 12:02 AM EDT) Prostate Cancer Screen, Serum 0.19 0.00 - 6.50 ng/mL 07/19/2024 1:39 AM EDT [facility] Blood Venous blood specimen / Unknown Venipuncture / Unknown 07/19/2024 12:02 AM EDT 07/19/2024 12:06 AM EDT Narrative [facility] - 07/19/2024 1:39 AM EDT Performed by Faisal electrochemiluminescent immunoassay which is standardized against the PSA Micha Reference Standard (WHO 96/670). Results obtained with different test methods or kits cannot be used interchangeably. us Edgardo Corbett MD LAB BLOOD ORDERABLES Final Resu lt Performing Organization Address [facility] [address]/[facility] [place] [place] [address] * Cancer Antigen, GI (CA 19.9) (07/19/2024 12:02 AM EDT) CA 19.9 20.9 <36 U/mL 07/19/2024 2:3 9 AM EDT [facility] Blood Venous blood specimen / Unknown Venipuncture / Unknown 07/19/2024 12:02 AM EDT 07/19/2024 12:06 AM EDT Narrative [facility] - 07/19/2024 2:39 AM EDT Performed by Faisal electrochemiluminescent immunoassay. Results obtained with different test methods or kits cannot be used interchangeably. Result Federico Corbett MD LAB BLOOD ORDERABLES Final Resu lt Performing Organization Address [facility] [place] [address] * T4, free (07/19/2024 12:02 AM EDT) Free T4, Plasma 1.1 0.8 - 1.7 ng/dL 07/19/2024 2:07 AM EDT [facility] Blood Venous blood specimen / Unknown Venipuncture / Unknown 07/19/2024 12:02 AM EDT 07/19/2024 12:06 AM EDT us Edgardo Corbett MD LAB BLOOD ORDERABLES Final Resu lt Performing Organization Address [facility] [address]/[facility] [place] [place] [address] * (ABNORMAL) CEA, Serum (07/19/2024 12:02 AM EDT) CEA, Serum 8.8(H) <4.0 ng/mL 07/19/2024 2:39 AM EDT [facility] Blood Venous blood specimen / Unknown Venipuncture / Unknown 07/19/2024 12:02 AM EDT 07/19/2024 12:06 AM EDT Narrative [facility] - 07/19/2024 2:39 AM EDT Normal range for smokers: < 5.5 ng/ml Normal range for non-smokers: <=4.0 ng/ml Performed by Faisal electrochemiluminescent immunoassay. Results obtained with different test methods or kits cannot be used interchangeably. us Edgardo Corbett MD LAB BLOOD ORDERABLES Final Resu lt [facility] [address] [place] [address] * FL Modified Barium Swallow (07/18/2024 8:35 [...] is deep laryngeal penetration by the teaspoon. [place] consistency (IDDSI 2): No aspiration. There is [...] There is deep laryngealpenetration by the teaspoon. [place] consistency (IDDSI 2): No aspiration. There is [...] final edited report. Drafted by DK Aguirre (R) on 07/18/2024 10:53 AM Final report signed by Bud Fong MD on 07/18/2024 3:28 PM Dc Torres MD IMG FLUOROSCOPY PROCEDURES Final Result * N-Terminal Probnp (07/18/2024 5:48 AM EDT) Only the most recent of2 resultswithin the time period is included. N-Terminal, PROBNP, Plasma 545 0 - 899 pg/mL 07/18/2024 2:54 PM EDT [facility] Blood Venous blood specimen / Unknown Venipuncture / Unknown 07/18/2024 5:48 AM EDT 07/18/2024 5:53 AM EDT Edgardo Corbett MD LAB BLOOD ORDERABLES Final Resu lt Performing Organization Address City/[facility] [address]/[place] [address] * TSH Reflex FT4 (07/17/2024 3:14 AM EDT) Thyroid Stimulating Hormone, Plasma 2.96 0.40 - 4.20 uIU/mL 07/17/2024 4:13 AM EDT [facility] Blood Venous blood specimen / Unknown Venipuncture / Unknown 07/17/2024 3:14 AM EDT 07/17/2024 3:33 AM EDT Dc Torres MD LAB [place] [address] * Creatine Kinase (CK), Total (07/17/2024 3:14 AM EDT) Creatine Kinase, Plasma 143 49 - 320 U/L 07/17/2024 4:13 AM EDT [facility] Blood Venous blood specimen / Unknown Venipuncture / Unknown 07/17/2024 3:14 AM EDT 07/17/2024 3:33 AM EDT Dc Torres MD LAB BLOOD ORDERABLES Final Result [facility] [address] [place] [address] * Folate, Serum (07/17/2024 3:14 AM EDT) Folate, Serum >20.0 >4.6 ng/mL 07/17/2024 4:22 AM EDT [facility] Blood Venous blood specimen / Unknown Venipuncture / Unknown 07/17/2024 3:14 AM EDT 07/17/2024 3:33 AM EDT Dc Torres MD LAB BLOOD ORDERABLES Final Result Performing Organization Address City/[facility] [address]/ZIP Co de Phone Number [facility] [address] [place] [address] * Ferritin, Serum (07/17/2024 3:14 AM EDT) Ferritin, Serum 97 20 - 400 ng/mL 07/17/2024 4:22 AM EDT [facility] Blood Venous blood specimen / Unknown Venipuncture / Unknown 07/17/2024 3:14 AM EDT 07/17/2024 3:33 AM EDT Dc Torres MD LAB BLOOD ORDERABLES Final Result Performing Organization Address City/[facility] [address]/ZIP Co de Phone Number [facility] [address] [place] [address] * Vitamin B12, Serum (07/17/2024 3:14 AM EDT) Vitamin B12, Serum 580 210 - 1,033 pg/mL 07/17/2024 4:22 AM EDT [facility] Blood Venous blood specimen / Unknown Venipuncture / Unknown 07/17/2024 3:14 AM EDT 07/17/2024 3:33 AM EDT Dc Torres MD LAB BLOOD ORDERABLES Final Result [facility] [address] [place] [address] * (ABNORMAL) Iron & Total Iron Binding Capacity, Plasma (Includes Transferrin) (07/16/2024 4:22 AM EDT) Iron, Plasma 19(L) 50 - 170 ug/dL 07/16/2024 8:33 AM EDT [facility] Transferrin, Plasma 174(L) 200 - 360 mg/dL 07/16/2024 8:33 AM EDT [facility] Total Iron Binding Capacity, Plasma 218(L) 240 - 450 ug/mL 07/16/2024 8:33 AM EDT [facility] Transferrin Saturation 9(L) 14 - 50 % 07/16/2024 8:33 AM EDT [facility] Blood Venous blood specimen / Unknown Venipuncture / Unknown 07/16/2024 4:22 AM EDT 07/16/2024 4:44 AM EDT Dc Torres MD LAB BLOOD ORDERABLES Final Result [facility] [address] [place] [address] * (ABNORMAL) Prothrombin Time/INR (07/16/2024 4:22 AM EDT) Only the most recent of2 resultswithin the time period is included. Prothrombin Time 15.6(H) 12.0 - 14.3 sec 07/16/2024 4:39 AM EDT [facility] INR 1.3(H) 0.9 - 1.1 07/16/2024 4:39 AM EDT [facility] Blood Venous blood specimen / Unknown Venipuncture / Unknown 07/16/2024 4:22 AM EDT 07/16/2024 4:26 AM EDT Narrative [facility] - 07/16/2024 4:39 AM EDT OPTIMAL INR RANGES FOR PATIENT ON ORAL ANTICOAGULANT THERAPY Prevention of venous thromboembolism INR 2.0 to 3.0 In patients with heart disease: Atrial fibrillation INR 2.0 to 3.0 Valvular heart disease INR 2.0 to 3.0 Tissue heart valves INR 2.0 to 3.0 Mechanical prosthetic valves INR 2.5 to 3.5 Prevention of recurrent MS INR 2.5 to 3.5 us Victor M Deshpande APRN LAB BLOOD ORDERABLES Final Re sult Performing Organization Address City/[facility] [address]/ZIP Co de Phone Number [facility] [address] [place] [address] * (ABNORMAL) Reticulocytes, Blood (07/16/2024 4:22 AM EDT) Reticulocyte Absolute 94.8 40.0 - 110.0 10*3/uL LAB HEMATOLOGY METHOD 07/16/2024 3:47 PM EDT [facility] Immature Reticulocyte Fraction 24.2(H) 3.1 - 17.6 % LAB HEMATOLOGY METHOD 07/16/2024 3:47 PM EDT [facility] Reticulocyte Hemoglobin 29.7 28 - 38 pg LAB HEMATOLOGY METHOD 07/16/2024 3:47 PM EDT [facility] Reticulocyte Count 2.80(H) 0.90 - 2.50 % LAB HEMATOLOGY METHOD 07/16/2024 3:47 PM EDT [facility] Blood Venous blood specimen / Unknown Venipuncture / Unknown 07/16/2024 4:22 AM EDT 07/16/2024 4:26 AM EDT us Dc Torres MD LAB BLOOD ORDERABLES Final Result Performing Organization Address City/[facility] [address]/ZIP Co de Phone Number [facility] [address] [place] [address] * (ABNORMAL) CBC W/O Differential (07/16/2024 4:22 AM EDT) WBC Count 6.11 3.70 - 10.30 10*3/uL LAB HEMATOLOGY METHOD 07/16/2024 4:30 AM EDT [facility] RBC Count 3.29(L) 4.60 - 6.10 10*6/uL LAB HEMATOLOGY METHOD 07/16/2024 4:30 AM EDT [facility] HGB 9.4(L) 13.7 - 17.5 g/dL LAB HEMATOLOGY METHOD 07/16/2024 4:30 AM EDT [facility] HCT 29.2(L) 40.0 - 51.0 % LAB HEMATOLOGY METHOD 07/16/2024 4:30 AM EDT [facility] Platelet Count 111(L) 155 - 369 10*3/uL LAB HEMATOLOGY METHOD 07/16/2024 4:30 AM EDT [facility] MCV 89 79 - 98 fL LAB HEMATOLOGY METHOD 07/16/2024 4:30 AM EDT [facility] MCH 28.6 26.0 - 32.0 pg LAB HEMATOLOGY METHOD 07/16/2024 4:30 AM EDT [facility] MCHC 32.2 30.7 - 35.5 g/dL LAB HEMATOLOGY METHOD 07/16/2024 4:30 AM EDT [facility] RDW 16.9(H) 11.5 - 14.5 % LAB HEMATOLOGY METHOD 07/16/2024 4:30 AM EDT [facility] MPV 9.1 8.8 - 12.5 fL LAB HEMATOLOGY METHOD 07/16/2024 4:30 AM EDT [facility] nRBC 0.0 <=0.0 per 100 WBCs LAB HEMATOLOGY METHOD 07/16/2024 4:30 AM EDT [facility] Blood Venous blood specimen / Unknown Venipuncture / Unknown 07/16/2024 4:22 AM EDT 07/16/2024 4:26 AM EDT us Victor M Deshpande APRN LAB BLOOD ORDERABLES Final Re sult [facility] [address] [place] [address] * (ABNORMAL) Renal Function Panel, Plasma (07/16/2024 4:22 AM EDT) Glucose, Plasma 292(H) 74 - 99 mg/dL 07/16/2024 5:28 AM EDT [facility] BUN, Plasma 13 8 - 23 mg/dL 07/16/2024 5:28 AM EDT [facility] Creatinine, Plasma 0.87 0.70 - 1.20 mg/dL 07/16/2024 5:28 AM EDT [facility] BUN/Creatinine Ratio 15 07/16/2024 5:28 AM EDT [facility] Sodium, Plasma 140 136 - 145 mmol/L 07/16/2024 5:28 AM EDT [facility] Potassium, Plasma 3.6 3.6 - 4.9 mmol/L 07/16/2024 5:28 AM EDT [facility] Chloride, Plasma 103 97 - 107 mmol/L 07/16/2024 5:28 AM EDT [facility] CO2, Plasma 26 22 - 29 mmol/L 07/16/2024 5:28 AM EDT [facility] Anion Gap 11 6 - 16 mmol/L 07/16/2024 5:28 AM EDT [facility] Total Calcium, Plasma 8.4(L) 8.9 - 10.2 mg/dL 07/16/2024 5:28 AM EDT [facility] Phosphorus, Plasma 3.1 2.5 - 4.5 mg/dL 07/16/2024 5:28 AM EDT [facility] Albumin, Plasma 2.9(L) 3.5 - 5.2 g/dL 07/16/2024 5:28 AM EDT [facility] eGFRcr 92.8 mL/min/1.7 3m*2 07/16/2024 5:28 AM EDT [facility] Comment:Reported eGFRcr in m L/min/1.73m2 is based the CKD-EPI 2020 equation that does not use a race coefficient. Blood Venous blood specimen / Unknown Venipuncture / Unknown 07/16/2024 4:22 AM EDT 07/16/2024 4:44 AM EDT us Victor M Deshpande APRN LAB BLOOD ORDERABLES Final Re sult [facility] [address] [place] [address] * (ABNORMAL) Multi Drug Resistance Test (07/15/2024 11:25 PM EDT) Culture Methicillin-Resis tant Staphylococcus aureus(AA) 07/17/2024 7:34 AM EDT [facility] Comment: The organism value for this result has been updated. These results have been appended to the previously preliminary verified report. <null> has been updated to reportable. Swab (Nares and Christiane Rectal) Non-blood Collection / Unknown 07/15/2024 11:25 PM EDT 07/16/2024 12:26 AM EDT Narrative [facility] - 07/17/2024 7:34 AM EDT This test was developed and its performance characteristics determined by the [facility]. Although the media is FDA-approved, it is not FDA-approved for all specimen types submitted. The FDA has determined that such clearance or approval is not necessary. This test is used for surveillance purposes. It should not be regarded as investigational or for research. The [facility] is certified under the Clinical Laboratory Improvement Amendments of 1988 (CLIA-88) as qualified to perform high complexity clinical laboratory testing. Victor M Deshpande APRN LAB MICROBIOLOGY - GENERAL OR DERABLES Final Result Performing Organization Address City/[facility] [address]/ZIP Co de Phone Number [facility] [address] [place] [address] * (ABNORMAL) Hemoglobin and Hematocrit, Blood (07/15/2024 11:25 PM EDT) HGB 9.2(L) 13.7 - 17.5 g/dL LAB HEMATOLOGY METHOD 07/16/2024 12:03 AM EDT [facility] HCT 28.8(L) 40.0 - 51.0 % LAB HEMATOLOGY METHOD 07/16/2024 12:03 AM EDT [facility] Blood Venous blood specimen / Unknown Venipuncture / Unknown 07/15/2024 11:25 PM EDT 07/15/2024 11:33 PM EDT Victor M Deshpande APRN LAB BLOOD ORDERABLES Final Re sult Performing Organization Address [facility] [address]/[facility] Co de Phone Number [facility] [address] [place] [address] * Type and Screen (07/15/2024 11:25 PM [...] TEST ORDERABLE S Final Result BLOOD BANK [address] [place] [address], * ECG Adult (07/15/2024 8:56 PM EDT) EKG DIAGNOSIS CLASS Abnormal MUSE ECG Ventricular Rate 63 BPM MUSE ECG Atrial Rate 63 BPM MUSE ECG NJ Interval 162 ms MUSE ECG QRSD Interval 112 ms MUSE ECG QT Interval 482 ms MUSE ECG QTC Interval 493 ms MUSE ECG P [place] 33 degrees MUSE ECG R [place] -40 degrees MUSE ECG T Wave [place] 6 degrees MUSE ECG Diagnosis Normal sinus rhythm MUSE ECG Diagnosis Left axis deviation MUSE ECG Diagnosis Moderate voltage criteria for LVH, may be normal variant ( R in aVL , [place] product ) MUSE ECG Diagnosis Nonspecific T wave abnormality MUSE ECG Diagnosis QTcB >= 480 msec MUSE ECG Diagnosis Abnormal ECG MUSE ECG Diagnosis MUSE ECG Diagnosis Confirmed by Jorge Alberto Louis ([id number]) on 07/16/2024 3:01:59 PM MUSE ECG 07/15/2024 8:56 PM EDT 07/16/2024 3:01 PM EDT Victor M Deshpande APRN ECG ORDERABLES Final Result MUSE ECG * Streptococcus pneumoniae and Legionella Urinary Antigen (07/15/2024 8:33 PM EDT) Legionella pneumophila serogroup 1 Antigen Result (Urine) Negative Negative 07/15/2024 9:24 PM EDT [facility] Streptococcus pneumoniae Antigen Result (Urine) Negative Negative 07/15/2024 9:24 PM EDT [facility] Urine Urine specimen obtained by clean catch procedure / Unknown Non-blood Collection / Unknown 07/15/2024 8:33 PM EDT 07/15/2024 9:02 PM EDT us Victor M Deshpande APRN LAB MICROBIOLOGY - GENERAL OR DERABLES Final Result Performing Organization Address [facility] [address] [facility]/ZIP Co de Phone Number [facility] [address] [place] [address] * Urine Kat Panel (07/15/2024 8:33 PM EDT) Extra Reflex urine culture not indicated 07/16/2024 5:02 AM EDT [facility] Comment: Previously prelim verified as [...] PM EDT 07/15/2024 8:52 PM EDT us Hans Stephenson MD LAB URINE ORDERABLES Final Result Performing Organization Address City/[facility] [address]/ZIP Co de Phone Number [facility] [address] [place] [address] * (ABNORMAL) Pain Management, Quantitative Urine Drug Testing (07/15/2024 8:33 PM EDT) Alpha [place] Alprazolam <20 <20 ng/mL 07/17 7:08 AM EDT [facility] Alpha [place] Midazolam <20 <20 ng/mL 2024 7:08 AM EDT [facility] Alpha [place] Triazolam <20 <20 ng/mL 2024 7:08 AM EDT [facility] Alprazolam <10 <10 ng/mL 07/17/2024 7:08 AM EDT [facility] Aminoclonazepam <20 <20 ng/mL 7:08 AM EDT [facility] Amphetamine <50 <50 ng/mL 07/17/2024 7:08 AM EDT [facility] Benzoylecgonine <50 <50 ng/mL 7:08 AM EDT [facility] Buprenorphine <10 <10 ng/mL 07/17/2024 7:08 AM EDT [facility] Buprenorphine Glucuronide <50 <50 ng/mL 07/17/2024 7:08 AM EDT [facility] Butalbital <50 <50 ng/mL 07/17/2024 7:08 AM EDT [facility] 9 Carboxy THC <10 <10 ng/mL 07/17/2024 7:08 AM EDT [facility] 9 Carboxy THC Glucuronide <25 <25 ng/mL 07/17/2024 7:08 AM EDT [facility] Clonazepam <10 <10 ng/mL 07/17/2024 7:08 AM EDT [facility] Codeine <50 <50 ng/mL 07/17/2024 7:08 AM EDT [facility] Codeine Glucuronide <50 <50 ng/mL 07/17 7:08 AM EDT [facility] Cyclobenzaprine <50 <50 ng/mL 7:08 AM EDT [facility] Desmethyl Tramadol <50 <50 ng/mL 2024 7:08 AM EDT [facility] Diazepam <10 <10 ng/mL 07/17/2024 7:08 AM EDT [facility] EDDP - Methadone Metabolite <50 <50 ng/mL 07/17/2024 7:08 AM EDT [facility] Fentanyl <1 <1 ng/mL 07/17/2024 7:08 AM EDT [facility] Hydrocodone >1,000(H) <50 ng/mL 07/17/2024 7:08 AM EDT [facility] Hydromorphone <50 <50 ng/mL 07/17/2024 7:08 AM EDT [facility] [facility] Hydromorphone Glucuronide >1,000(H) <50 ng/mL 07/17/2024 7:08 AM EDT [facility] Lorazepam <20 <20 ng/mL 07/17/2024 7:08 AM EDT [facility] Lorazepam Glucuronide <50 <50 ng/mL 07/17/2024 7:08 AM EDT [facility] MDA <50 <50 ng/mL 07/17/2024 7:08 AM EDT [facility] MDMA <50 <50 ng/mL 07/17/2024 7:08 AM EDT [facility] Meperidine <50 <50 ng/mL 07/17/2024 7:08 AM EDT [facility] Methadone <50 <50 ng/mL 07/17/2024 7:08 AM EDT [facility] Methamphetamine <50 <50 ng/mL 7:08 AM EDT [facility] Methylphenidate <50 <50 ng/mL 7:08 AM EDT [facility] 6 Monoacetyl morphine <10 <10 ng/mL 07/17/2024 7:08 AM EDT [facility] Morphine <50 <50 ng/mL 07/17/2024 7:08 AM EDT [facility] Morphine Glucuronide <50 <50 ng/mL 07/08 7:08 AM EDT [facility] Naloxone <50 <50 ng/mL 07/17/2024 7:08 AM EDT [facility] Naloxone Glucuronide <50 <50 ng/mL 07/08 7:08 AM EDT [facility] Norbuprenorphine <10 <10 ng/mL 07/18/19 7:08 AM EDT [facility] Norbuprenorphine Glucuronide <50 <50 ng/mL 07/17/2024 7:08 AM EDT [facility] Nordiazepam <20 <20 ng/mL 07/17/2024 7:08 AM EDT [facility] Norfentanyl <2 <2 ng/mL 07/17/2024 7:08 AM EDT [facility] Normeperidine <50 <50 ng/mL 07/17/2024 7:08 AM EDT [facility] PCP Quant, Ur <50 <50 ng/mL 07/17/2024 7:08 AM EDT [facility] Phenobarbital <50 <50 ng/mL 07/17/2024 7:08 AM EDT [facility] Oxazepam <20 <20 ng/mL 07/17/2024 7:08 AM EDT [facility] Oxazepam Glucuronide <50 <50 ng/mL 07/08 7:08 AM EDT [facility] Oxycodone <50 <50 ng/mL 07/17/2024 7:08 AM EDT [facility] Oxymorphone <50 <50 ng/mL 07/17/2024 7:08 AM EDT [facility] Oxymorphone Glucuronide <50 <50 ng/mL 07/17/2024 7:08 AM EDT [facility] Secobarbital <50 <50 ng/mL 07/17/2024 7:08 AM EDT [facility] Tramadol <50 <50 ng/mL 07/17/2024 7:08 AM EDT [facility] Temazepam <20 <20 ng/mL 07/17/2024 7:08 AM EDT [facility] Temazepam Glucuronide <50 <50 ng/mL 07/17/2024 7:08 AM EDT [facility] Urine Urine specimen obtained by clean catch procedure / Unknown Non-blood Collection / Unknown 07/15/2024 8:33 PM EDT 07/15/2024 8:52 PM EDT Narrative [facility] - 07/17/2024 7:08 AM [...] laboratory. Test performed by LC-MS/MS at the [facility]. This test was developed and its performance characteristics determined by [facility]. It has not been cleared or approved by the FDA. The laboratory is regulated under CLIA as qualified to perform high-complexity testing. This test is used for clinical purposes. us Victor M Deshpande APRN LAB URINE ORDERABLES Final Re sult [facility] [address] [place] [address] * Nasopharyngeal Respiratory Panel (07/15/2024 8:33 PM EDT) Nasopharyngeal Respiratory PCR Interpretation Not Detected for all analytes Not Detected for all analytes 07/15/2024 10:50 PM EDT [facility] Swab Nasopharyngeal structure / Unknown Non-blood Collection / Unknown 07/15/2024 8:33 PM EDT 07/15/2024 9:02 PM EDT Narrative [facility] - 07/15/2024 10:50 PM [...] Respiratory PCR Panel is performed using the [employer] instrument. This test is FDA approved for use with Nasopharyngeal swabs only. This test is used for clinical purposes. It should not be regarded as investigational or for research. The [facility] is certified under the Clinical Laboratory Improvement Amendments of 1988 (CLIA-88) as qualified to perform high complexity clinical laboratory testing. us Victor M Deshpande APRN LAB MICROBIOLOGY - GENERAL OR DERABLES Final Result [facility] [address] [place] [address] * (ABNORMAL) Comprehensive Urine Drug Screening, Qualitative Assay, >= 27 Drug Classes (58:33 PM EDT) Acetaminophen Positive(A) Negative 07/16/2024 11:24 PM EDT [facility] Alprazolam Negative Negative 07/16/2024 11:24 PM EDT [facility] Amantadine Negative Negative 07/16/2024 11:24 PM EDT [facility] Amitriptyline Negative Negative 07/16/2024 11:24 PM EDT [facility] Amphetamine Negative Negative 07/16/2024 11:24 PM EDT [facility] Atenolol Negative Negative 07/16/2024 11:24 PM EDT [facility] Benzoylecgonine Negative Negative 11:24 PM EDT [facility] Bisoprolol Negative Negative 07/16/2024 11:24 PM EDT [facility] Bupropion Negative Negative 07/16/2024 11:24 PM EDT [facility] Butalbital Negative Negative 07/16/2024 11:24 PM EDT [facility] Carbamazepine Negative Negative 07/16/2024 11:24 PM EDT [facility] Carisoprodol Negative Negative 07/16/2024 11:24 PM EDT [facility] Chlorpheniramine Negative Negative 07/17/19 11:24 PM EDT [facility] Citalopram Negative Negative 07/16/2024 11:24 PM EDT [facility] Clindamycin Negative Negative 07/16/2024 11:24 PM EDT [facility] Clonidine Negative Negative 07/16/2024 11:24 PM EDT [facility] Clopidogrel / Ticlopidine Negative Negative 07/16/2024 11:24 PM EDT [facility] Cocaethylene Negative Negative 07/16/2024 11:24 PM EDT [facility] Cocaine Negative Negative 07/16/2024 11:24 PM EDT [facility] Codeine Negative Negative 07/16/2024 11:24 PM EDT [facility] Cyclobenzaprine Negative Negative 11:24 PM EDT [facility] Desvenlafaxine Negative Negative 07/16/2024 11:24 PM EDT [facility] Dextromethorphan Negative Negative 07/17/19 11:24 PM EDT [facility] Diazepam Negative Negative 07/16/2024 11:24 PM EDT [facility] Diltiazem Negative Negative 07/16/2024 11:24 PM EDT [facility] Diphenhydramine Negative Negative 11:24 PM EDT [facility] Doxepine Negative Negative 07/16/2024 11:24 PM EDT [facility] Doxylamine Negative Negative 07/16/2024 11:24 PM EDT [facility] EDDP-Methadone metabolite Negative Negative 07/16/2024 11:24 PM EDT [facility] Fentanyl Negative Negative 07/16/2024 11:24 PM EDT [facility] Fluconazole Negative Negative 07/16/2024 11:24 PM EDT [facility] Fluoxetine Negative Negative 07/16/2024 11:24 PM EDT [facility] Guaifenesin Negative Negative 07/16/2024 11:24 PM EDT [facility] Haloperidol Negative Negative 07/16/2024 11:24 PM EDT [facility] Heroin/6-CHUNG Negative Negative 07/16/2024 11:24 PM EDT [facility] Hydrocodone Positive(A) Negative 07/16/2024 11:24 PM EDT [facility] Hydroxyzine / Cetirizine metabolite Negative Negative 07/16/2024 11:24 PM EDT [facility] Ibuprofen Negative Negative 07/16/2024 11:24 PM EDT [facility] Imipramine Negative Negative 07/16/2024 11:24 PM EDT [facility] Ketamine Negative Negative 07/16/2024 11:24 PM EDT [facility] Labetolol Negative Negative 07/16/2024 11:24 PM EDT [facility] Lamotrigine Negative Negative 07/16/2024 11:24 PM EDT [facility] Levetiracetam Negative Negative 07/16/2024 11:24 PM EDT [facility] Lidocaine Negative Negative 07/16/2024 11:24 PM EDT [facility] MDA Negative Negative 07/16/2024 11:24 PM EDT [facility] MDMA Negative Negative 07/16/2024 11:24 PM EDT [facility] Memantine Negative Negative 07/16/2024 11:24 PM EDT [facility] Meperidine Negative Negative 07/16/2024 11:24 PM EDT [facility] Meprobamate Negative Negative 07/16/2024 11:24 PM EDT [facility] Metaxalone Negative Negative 07/16/2024 11:24 PM EDT [facility] Methamphetamine Negative Negative 11:24 PM EDT [facility] Methocarbamol Negative Negative 07/16/2024 11:24 PM EDT [facility] Methylecgonine Negative Negative 07/16/2024 11:24 PM EDT [facility] Metoclopramide Negative Negative 07/16/2024 11:24 PM EDT [facility] Metoprolol Positive(A) Negative 07/16/2024 11:24 PM EDT [facility] Metronidazole Negative Negative 07/16/2024 11:24 PM EDT [facility] Midazolam Negative Negative 07/16/2024 11:24 PM EDT [facility] Midazolam Metabolite Negative Negative 07/16/2024 11:24 PM EDT [facility] Mirtazapine Negative Negative 07/16/2024 11:24 PM EDT [facility] Misc Test Result Positive(A) Negative 025 11:24 PM EDT [facility] Comment: Hydromorphone detected. Gabapentin detected. Hydroxyzine metabolite/Cetirizine metabolite detected. Naproxen Negative Negative 07/16/2024 11:24 PM EDT [facility] Nefazodone Negative Negative 07/16/2024 11:24 PM EDT [facility] Norfentanyl Negative Negative 07/16/2024 11:24 PM EDT [facility] Nortriptyline Negative Negative 07/16/2024 11:24 PM EDT [facility] Ordanstron Negative Negative 07/16/2024 11:24 PM EDT [facility] Oxcarbazepine Negative Negative 07/16/2024 11:24 PM EDT [facility] Oxycodone Negative Negative 07/16/2024 11:24 PM EDT [facility] Paroxethine Negative Negative 07/16/2024 11:24 PM EDT [facility] Phenobarbital Negative Negative 07/16/2024 11:24 PM EDT [facility] Phentermine Negative Negative 07/16/2024 11:24 PM EDT [facility] Phenytoin Negative Negative 07/16/2024 11:24 PM EDT [facility] Primidone Negative Negative 07/16/2024 11:24 PM EDT [facility] Promethazine Negative Negative 07/16/2024 11:24 PM EDT [facility] Propofol Negative Negative 07/16/2024 11:24 PM EDT [facility] Propranolol Negative Negative 07/16/2024 11:24 PM EDT [facility] Quetiapine Negative Negative 07/16/2024 11:24 PM EDT [facility] Quinine Negative Negative 07/16/2024 11:24 PM EDT [facility] Rantidine Negative Negative 07/16/2024 11:24 PM EDT [facility] Sertraline Negative Negative 07/16/2024 11:24 PM EDT [facility] Spironolactone Negative Negative 07/16/2024 11:24 PM EDT [facility] Tizanidine Negative Negative 07/16/2024 11:24 PM EDT [facility] Topiramate Negative Negative 07/16/2024 11:24 PM EDT [facility] Tramadol Negative Negative 07/16/2024 11:24 PM EDT [facility] Trazadone/ Trazadone metabolite Negative Negative 07/16/2024 11:24 PM EDT [facility] Trimethoprim Negative Negative 07/16/2024 11:24 PM EDT [facility] Valproic Acid Negative Negative 07/16/2024 11:24 PM EDT [facility] Venlafaxine Negative Negative 07/16/2024 11:24 PM EDT [facility] Verapamil Negative Negative 07/16/2024 11:24 PM EDT [facility] Zolpidem Negative Negative 07/16/2024 11:24 PM EDT [facility] Xylazine Negative Negative 07/16/2024 11:24 PM EDT [facility] Urine Urine specimen obtained by clean catch procedure / Unknown Non-blood Collection / Unknown 07/15/2024 8:33 PM EDT 07/15/2024 8:52 PM EDT us Victor M Deshpande APRN LAB URINE ORDERABLES Final Re sult [facility] [address] [place] [address] * (ABNORMAL) Urinalysis with reflex microscopic (Culture NOT Included) (07/15/2024 8:33 PM EDT) Color, Urine Yellow LAB URINALYSIS - AUTOMATED METHOD 07/15/2024 8:50 PM EDT [facility] Clarity, Urine Clear LAB URINALYSIS - AUTOMATED METHOD 07/15/2024 8:50 PM EDT [facility] Spec [place], Urine 1.016 1.005 - 1.030 LAB URINALYSIS - AUTOMATED METHOD 07/15/2024 8:50 PM EDT [facility] pH, Urine 6.5 5.0 - 8.0 LAB URINALYSIS - AUTOMATED METHOD 07/15/2024 8:50 PM EDT [facility] Protein, Urine 30(A) Negative mg/dL LAB URINALYSIS - AUTOMATED METHOD 07/15/2024 8:50 PM EDT [facility] Glucose, Urine Negative Negative mg/dL LAB URINALYSIS - AUTOMATED METHOD 07/15/2024 8:50 PM EDT [facility] Ketones, Urine Negative Negative mg/dL LAB URINALYSIS - AUTOMATED METHOD 07/15/2024 8:50 PM EDT [facility] Blood, Urine Negative Negative LAB URINALYSIS - AUTOMATED METHOD 07/15/2024 8:50 PM EDT [facility] Bilirubin, Urine Negative Negative LAB URINALYSIS - AUTOMATED METHOD 07/15/2024 8:50 PM EDT [facility] Urobilinogen, Urine 1.0 0.2 to 1.0 mg/dL LAB URINALYSIS - AUTOMATED METHOD 07/15/2024 8:50 PM EDT [facility] Leukocytes, Urine Negative Negative LAB URINALYSIS - AUTOMATED METHOD 07/15/2024 8:50 PM EDT [facility] Nitrite, Urine Negative Negative LAB URINALYSIS - AUTOMATED METHOD 07/15/2024 8:50 PM EDT [facility] Urine Urine specimen obtained by clean catch procedure / Unknown Non-blood Collection / Unknown 07/15/2024 8:33 PM EDT 07/15/2024 8:47 PM EDT us Hans Stephenson MD LAB URINE ORDERABLES Final Result Performing Organization Address City/[facility] [address]/ZIP Co de Phone Number [facility] [address] [place] [address] * Blood Culture (Aerobic/Anaerobet Set) (07/15/2024 7:49 PM EDT) Only the most recent of2 resultswithin the time period is included. Culture No growth at day 5 07/20/2024 9:01 PM EDT [facility] Blood Venous blood specimen / Unknown Venipuncture / Unknown 07/15/2024 7:49 PM EDT 07/15/2024 8:07 PM EDT us Victor M Deshpande APRN LAB MICROBIOLOGY - GENERAL OR DERABLES Final Result [facility] [address] [place] [address] * (ABNORMAL) Blood gas panel, venous (07/15/2024 7:49 PM EDT) pH, Venous 7.45(H) 7.32 - 7.43 LAB HEMATOLOGY METHOD 07/15/2024 7:56 PM EDT [facility] pCO2, Venous 44 40 - 55 mmHg LAB HEMATOLOGY METHOD 07/15/2024 7:56 PM EDT [facility] pO2, Venous 51(H) 25 - 40 mmHg LAB HEMATOLOGY METHOD 07/15/2024 7:56 PM EDT [facility] SO2, Measured, Venous 87(H) 65 - 80 % LAB HEMATOLOGY METHOD 07/15/2024 7:56 PM EDT [facility] Base Excess, Venous 6.0(H) -2.0 - 3.0 mmol/L LAB HEMATOLOGY METHOD 07/15/2024 7:56 PM EDT [facility] Bicarbonate, Calculated, Venous 31(H) 22 - 26 mmol/L LAB HEMATOLOGY METHOD 07/15/2024 7:56 PM EDT [facility] Hematocrit, Whole Blood 31.3(L) 40.0 - 51.0 % LAB HEMATOLOGY METHOD 07/15/2024 7:56 PM EDT [facility] Sodium, Whole Blood 138 136 - 145 mmol/L LAB HEMATOLOGY METHOD 07/15/2024 7:56 PM EDT [facility] Potassium, Whole Blood 3.6 3.6 - 4.9 mmol/L LAB HEMATOLOGY METHOD 07/15/2024 7:56 PM EDT [facility] Chloride, Whole Blood 101 97 - 107 mmol/L LAB HEMATOLOGY METHOD 07/15/2024 7:56 PM EDT [facility] Glucose, Whole Blood 243(H) 74 - 99 mg/dL LAB HEMATOLOGY METHOD 07/15/2024 7:56 PM EDT [facility] Lactate, Venous, Whole Blood 0.7 0.5 - 2.2 mmol/L LAB HEMATOLOGY METHOD 07/15/2024 7:56 PM EDT [facility] Ionized Calcium, Whole Blood 4.6 4.6 - 5.1 mg/dL LAB HEMATOLOGY METHOD 07/15/2024 7:56 PM EDT [facility] Blood Venous blood specimen / Unknown Venipuncture / Unknown 07/15/2024 7:49 PM EDT 07/15/2024 7:54 PM EDT us Victor M Deshpande HYPERTRICHOLOGIST LAB BLOOD ORDERABLES Final Re sult [facility] [address] [place] [address] * (ABNORMAL) Troponin T, High Sensitivity, 2 Hour, Plasma (07/15/2024 7:11 PM EDT) Troponin T, High Sensitivity, 2 Hour 48(H) <19 ng/L 07/15/2024 7:49 PM EDT [facility] Troponin Delta 7 <10 ng/L 07/15/2024 7:49 PM EDT [facility] Troponin Delta Interpretation Not Significant 07/15/2024 7:49 PM EDT [facility] Comment:Not Significant. No acute change in troponin observed between the baseline and 2 hour samples. Blood Venous blood specimen / Unknown Venipuncture / Unknown 07/15/2024 7:11 PM EDT 07/15/2024 7:21 PM EDT us Hans Stephenson MD LAB BLOOD ORDERABLES Final Result [facility] [address] [place] [address] * CT Face wo IV Contrast (07/15/2024 [...] Grewal MD on 07/15/2024 6:29 PM us Hans Stephenson MD IMG CT PROCEDURES Final Res [...] Total DLP (Dose-Length Product): 3621.63 mGy.cm (accession [id number]), 3621.63 mGy.cm (accession [id number]), 3621.63 mGy.cm (accession [id number]), 3621.63 mGy.cm (accession [id number]), 3621.63 mGy.cm (accession [id number]). Please note: The reported value represents the [...] Total DLP (Dose-Length Product): 3621.63 mGy.cm (accession [id number]),3621.63 mGy.cm (accession [id number]), 3621.63 mGy.cm (accession [id number]),3621.63 mGy.cm (accession [id number]), 3621.63 mGy.cm (accession [id number]).Please note: The reported value represents the total [...] Liz Khan MD on 07/15/2024 6:37 PM Hans Stephenson MD IMG CT PROCEDURES Final Res [...] Total DLP (Dose-Length Product): 3621.63 mGy.cm (accession [id number]), 3621.63 mGy.cm (accession [id number]), 3621.63 mGy.cm (accession [id number]), 3621.63 mGy.cm (accession [id number]), 3621.63 mGy.cm (accession [id number]). Please note: The reported value represents the [...] Total DLP (Dose-Length Product): 3621.63 mGy.cm (accession [id number]),3621.63 mGy.cm (accession [id number]), 3621.63 mGy.cm (accession [id number]),3621.63 mGy.cm (accession [id number]), 3621.63 mGy.cm (accession [id number]).Please note: The reported value represents the total [...] Khan MD on 07/15/2024 6:37 PM us Hans Stephenson MD IMG CT PROCEDURES Final Res [...] Total DLP (Dose-Length Product): 3621.63 mGy.cm (accession [id number]), 3621.63 mGy.cm (accession [id number]), 3621.63 mGy.cm (accession [id number]), 3621.63 mGy.cm (accession [id number]), 3621.63 mGy.cm (accession [id number]). Please note: The reported value represents the [...] Total DLP (Dose-Length Product): 3621.63 mGy.cm (accession [id number]),3621.63 mGy.cm (accession [id number]), 3621.63 mGy.cm (accession [id number]),3621.63 mGy.cm (accession [id number]), 3621.63 mGy.cm (accession [id number]).Please note: The reported value represents the total [...] Khan MD on 07/15/2024 6:37 PM us Hans Stephenson MD IMG CT PROCEDURES Final Res [...] Total DLP (Dose-Length Product): 3621.63 mGy.cm (accession [id number]), 3621.63 mGy.cm (accession [id number]), 3621.63 mGy.cm (accession [id number]), 3621.63 mGy.cm (accession [id number]), 3621.63 mGy.cm (accession [id number]). Please note: The reported value represents the [...] Total DLP (Dose-Length Product): 3621.63 mGy.cm (accession [id number]),3621.63 mGy.cm (accession [id number]), 3621.63 mGy.cm (accession [id number]),3621.63 mGy.cm (accession [id number]), 3621.63 mGy.cm (accession [id number]).Please note: The reported value represents the total [...] Khan MD on 07/15/2024 6:37 PM us Hans Stephenson MD IMG CT PROCEDURES Final Res [...] Grewal MD on 07/15/2024 6:29 PM us Hans Stephenson MD IMG CT PROCEDURES Final Res [...] Total DLP (Dose-Length Product): 3621.63 mGy.cm (accession [id number]), 3621.63 mGy.cm (accession [id number]), 3621.63 mGy.cm (accession [id number]), 3621.63 mGy.cm (accession [id number]), 3621.63 mGy.cm (accession [id number]). Please note: The reported value represents the [...] Total DLP (Dose-Length Product): 3621.63 mGy.cm (accession [id number]),3621.63 mGy.cm (accession [id number]), 3621.63 mGy.cm (accession [id number]),3621.63 mGy.cm (accession [id number]), 3621.63 mGy.cm (accession [id number]).Please note: The reported value represents the total [...] Khan MD on 07/15/2024 6:37 PM us Hans Stephenson MD IMG CT PROCEDURES Final Res ult * XR Ankle [...] Khan MD on 07/15/2024 5:53 PM us Hans Stephenson MD IMG XR PROCEDURES Final Res [...] Khan MD on 07/15/2024 5:53 PM us Hans Stephenson MD IMG XR PROCEDURES Final Res [...] Khan MD on 07/15/2024 5:53 PM us Hans Stephenson MD IMG XR PROCEDURES Final Res [...] Khan MD on 07/15/2024 5:53 PM us Hans Stephenson MD IMG XR PROCEDURES Final Res [...] Khan MD on 07/15/2024 5:53 PM us Hans Stephenson MD IMG XR PROCEDURES Final Res [...] Liz Khan MD on 07/15/2024 5:53 PM Hans Stephenson MD IMG XR PROCEDURES Final Res ult * (ABNORMAL) Troponin now and 120 min (07/15/2024 5:03 PM EDT) Pathologist [facility] Troponin T, High Sensitivity, 0 Hour 41(H) <19 ng/L 07/15/2024 5:58 PM EDT [facility] Blood Venous blood specimen / Unknown Venipuncture / Unknown 07/15/2024 5:03 PM EDT 07/15/2024 5:20 PM EDT Hans Stephenson MD LAB BLOOD ORDERABLES Final Result [facility] [address] [place] [address] * (ABNORMAL) Lipase (07/15/2024 5:03 PM EDT) Pathologist [facility] Lipase, Plasma 7(L) 19 - 63 U/L 07/15/2024 6:17 PM EDT [facility] Blood Venous blood specimen / Unknown Venipuncture / Unknown 07/15/2024 5:03 PM EDT 07/15/2024 5:20 PM EDT us Hans Stephenson MD LAB BLOOD ORDERABLES Final Result Performing Organization Address City/[facility] [address]/ZIP Co de Phone Number [facility] [address] [place] [address] * CT NEURO OUTSIDE IMAGES (07/15/2024 9:56 AM EDT) Only the most recent of2 resultswithin the time period is included. Anatomical Region Laterality Modality Computed Tomogra phy 07/15/2024 9:56 AM EDT us External Provider IMG CT PROCEDURES Final Result * XR OUTSIDE IMAGES (07/15/2024 9:00 AM EDT) Anatomical Region Laterality Modality Radiographic [place]ced[place] ging 07/15/2024 9:00 AM EDT us External Provider IMG XR PROCEDURES Final Result * XR MSK OUTSIDE IMAGES (07/15/2024 9:00 AM EDT) Anatomical Region Laterality Modality Radiographic Mercedez ging 07/15/2024 9:00 AM EDT us External Provider IMG XR PROCEDURES Final Result * Hepatitis C Antibody - ED (08/31/2023 4:18 PM EDT) Hepatitis C Antibody Negative Negative 08/31/2023 5:36 PM EDT [facility] Blood Venous blood specimen / Unknown Venipuncture / Unknown 08/31/2023 4:18 PM EDT 08/31/2023 4:54 PM EDT us Roderick Capone MD LAB BLOOD ORDERABLES Final Result Performing Organization Address City/[facility] [address]/ZIP Co de Phone Number [facility] [address] [place] [id number] from Last 3 Months or Most Recently Relevant to Health Maintenance Additional Health Concerns Infection Onset Date 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 Source: [facility]. 02/22/2017 07/15/2024 Insurance MEDIC[employer] Advance Directives * DNR/DNI (Latest Code Status on File) Date Activated Date Inactivated Comments 07/15/2024 8:53 PM 07/20/2024 5:04 PM Question Answer Comments DNR determined on/before admission date? Yes I have reviewed the capacity from the link above and, if needed, have updated to appropriate status: Yes * Full Code Date Activated Date Inactivated Comments 07/15/2024 8:48 PM 07/15/2024 8:53 PM Question Answer Comments I have reviewed the capacity from the link above and, if needed, have updated to appropriate status: Yes Care Teams Mobile Application Architect Relationship Specialty Start Date End Date Elijah Serra DO [address] [place] [address] PCP - General Plasterer Spot 12/01/22 Nancy Trammell, [facility] TCM Nurse 07/23/24
--- OUTSIDE RECORDS SUMMARY | 2024-08-13 12:48 | XMS_ITS | Continuity of Care Document ---
Author Organization [facility] Address [address] [place] [address] [place] [address] Care Team Providers Care Fighting [employer] Maintainer Name Role Phone EVANGELINA HOUSTON Primary Care Provider CINDY LABOY Automotive Welder LESLEY GRACE Primary Care Provider GABRIELLA GAFFNEY Navigation Teacher MICHELLE ANGEL Data Integrity Consultant Assessment No assessment recorded. Plan of Treatment Reminders Order Date Submit Date Provider Last Modified By Organization Details Last Modified Time Details Appointments RECHECK 2024 10:40A M MICHELLE ANGEL PA-C Not available Not available Not available RECHECK 2024 11:30A M EVANGELINA HOUSTON DO Not available Not available Not available RHEUM RECHECK 2024 03:30P M YOLY MACHADO MD Not available Not available Not available NEUROLOG Y RECHECK 2024 10:00A M [facility] Not available Not available Not available [...] urinalys is panel, auto 2024 025 [email or web address] [facility], [address] [place] [address] , [place], [address], 07/05/2024 11:11:04 CBC w/ auto diff 2024 025 [facility], [address] [place] [address], [address], 07/05/2024 15:58:22 CMP, serum or plasma 2024 025 [facility], [address] [place] [address], [address], 07/05/2024 15:51:02 lipase, serum or plasma 2024 025 [facility], [address] [place] [address], [address], 07/05/2024 15:51:04 Referral None recorded . Procedures None recorded . Surgeries None recorded . Imaging CT, chest + abdomen + pelvis, w/o contrast - Chronic cough since right sided pneumoni a in 04/2024. Now with left rhonchi. Also suspect right sided nephroli thiasis with history of same and current flank pain. 10/2023 5 mm hypodens e pancreat ic lesion which was suspecte d to be benign 2024 025 [facility], [address] [place] [address] , [place], [address], 07/05/2024 12:21:16 Medication Orders None recorded . Patient TargetsNo targets recorded. Patient Instructions Encounter Date Encounter Id Patient Instructions Last Modified By Organization Details Last Modified Time 07/05/2024 [id number] - Take Colfax as prescribed for pain, and you may [...] Not available 07/05/2024 11:04:35 Reason for Referral None Reported. Results Created Date Observation Date Name Description Value Unit Range Abnormal Flag Note LastModifiedBy Organization Detail LastModifiedTime 07/06/1907/05/2024 urina lysis panel , auto Unknown Analyte Clean Catch Not Available [address], [place], [address], 07/05/2024 10:34:52 07/06/1907/05/2024 urina lysis panel , auto Unknown Analyte Yellow Not Available [address], [place], [address], 07/05/2024 10:34:52 07/06/1907/05/2024 urina lysis panel , auto Unknown Analyte Clear Not Available [address], [place], [address], 07/05/2024 10:34:52 07/06/1907/05/2024 urina lysis panel , auto Unknown Analyte 1.010 Not Available [address], [place], [address], 07/05/2024 10:34:52 07/06/1907/05/2024 urina lysis panel , auto Unknown Analyte 7.0 Not Available [address], [place], [address], 07/05/2024 10:34:52 07/06/1907/05/2024 urina lysis panel , auto Unknown Analyte Negati ve Not Available [address], [place], [address], 07/05/2024 10:34:52 07/06/19 25 07/05/2024 urina lysis panel , auto Unknown Analyte Negati ve Not Available [address], [place], [address], 07/05/2024 10:34:52 07/06/19 25 07/05/2024 urina lysis panel , auto Unknown Analyte Negati ve Not Available [address] , [place], [address], 07/05/2024 10:34:52 07/06/19 25 07/05/2024 urina lysis panel , auto Unknown Analyte Normal Not Available [address] , [place], [address], 07/05/2024 10:34:52 07/06/19 25 07/05/2024 urina lysis panel , auto Unknown Analyte Negati ve Not Available [address] , [place], [address], 07/05/2024 10:34:52 07/06/19 25 07/05/2024 urina lysis panel , auto Unknown Analyte Normal Not Available [address] , [place], [address], 07/05/2024 10:34:52 07/06/19 25 07/05/2024 urina lysis panel , auto Unknown Analyte Negati ve Not Available [address] , [place], [address], 07/05/2024 10:34:52 07/06/19 25 07/05/2024 urina lysis panel , auto Unknown Analyte Negati ve Not Available [address] , [place], [address], 07/05/2024 10:34:52 07/06/19 25 07/05/2024 CT, chest + abdom en + pelvi s, w/o contr ast [address] [place] [address] Mauricio simon Name: OBDULIO simon : 952 Pat[address] t 67 Orderi ng [...] -appea ring 2.2 cm cyst from the filling operator ior left kidney . Gallbl adder [...] Roberto Jurado MD on 025 12:16 PM [email or web address] [facility] [address] , [place], [address], 07/05/2024 15:07:57 07/17/19 25 07/15/2024 elect cyndi nava am No observ ation record ed. [facility] Ent [address] [place], [address], 07/19/2024 07:59:43 Result Notes Documentation Provider Name and Address Organization Details Recorded Time Ct, Chest + Abdomen + Pelvis, W/o Contrast : [address] [place] [address] Patient Name: OBDULIO GOLD Patient : 1955 Patient Ordering Provider: [...] a diverticulum. Interpreted By: Roberto Jurado MD Briannelivia Vann [facility] 07/05/2024 15:07:57 Problems Name Problem SNOMED Code Status Onset Date Resolution Date Notes Provider Name and Address Organization Details Recorded Time History of coronary artery bypass grafting 241407257 Active 2020 [facility] 09:22:49 Type 1 diabetes mellitus 11700801 Active 2020 DPN EVANGELINA HOUSTON DO [address] [place] [address], [address] , [facility] 3 19:18:56 Erosive osteoarth rosis 763847927 Active 2020 hydroxych loroquine , cymbalta f/w Rheum EVANGELINA HOUSTON DO [address] [place], [address] , [facility] 3 10:34:29 Coronary arteriosc lerosis 29056993 Active 2020 s/p CABG, Stenting C 08/18/2020 EVANGELINA HOUSTON, DO [address] [place], [address] , [facility] 2 10:07:28 Hypothyro idism 69597891 Active 2020 [facility] 4 09:22:49 Dyspnea on exertion 40915896 Active 2020 JASON BURGOS PA-C [address] [place] [address], [address] , [facility] 1 12:35:15 Secondary gout 884375458 Active 2020 EVANGELINA HOUSTON, DO [address] [place], [address] , [facility] 2 10:07:28 Hyperpara thyroidis m due to renal insuffici ency 39580560 Active 2020 [place]athy[place] [address] [place] [address], [address] , [facility] 3 20:47:44 Calcium pyrophosp hate depositio n disease 572978772 Active 2020 EVANGELINA HOUSTON, DO [address] [place], [address] , [facility] 2 10:07:28 Supraspin atus tear 674625167 Active 2020 R, full thickness MRI 07/2020 EVANGELINA HOUSTON, DO [address] [place], [address] , [facility] 1 16:39:26 Lumbar spondylol isthesis 51369768039 9102 Active 2020 f/w Dr Edgardo HOUSTON, DO [address] [place], [address] , [facility] 2 10:07:28 History of calculus of kidney 834902954 Active 2020 EVANGELINA HOUSTON [address], [address] , [facility] 2 10:07:28 Degenerat griffin disorder of macula 748058208 Active 2020 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 EVANGELINA HOUST[address], [address] , [facility] 2 10:07:28 Esophagea l dysphagia 01657940 Active 2020 EGD 01/2021, dilated, recc 3y f/u EVANGELINA HOUSTON[address], [address] , [facility] 2 10:09:09 Minimal cognitive impairmen t 574068848 Active 2021 EVANGELINA HOUSTON [address], [address] , [facility] 2 10:09:05 Obstructi ve sleep apnea syndrome 93431434 Active 2021 EVANGELINA HOUSTON [address], [address] , [facility] 2 10:09:55 Chronic diastolic heart failure 601843600 Active 2021 EVANGELINA HOUSTON [address], [address] , [facility] 2 18:48:59 Chronic kidney disease stage 3A 165724569 Active 2022 EVANGELINA HOUSTON [address], [address] , [facility] 3 10:20:26 Obesity 601630991 Active 2022 [facility] 4 09:22:49 Bronchiec tasis 69895355 Active 2022 EVANGELINA HOUSTON [address] [place], [address] , [facility] 3 11:01:46 Fecal incontine nce with fecal urgency 18004638948 9102 Active 2023 KP LIANG MD [address] [place], [address] , [facility] 4 15:03:28 Atheroscl erosis of aorta 49924506 Active Not Available [employer] 4 10:12:08 Acquired thrombocy topenia 18339227 Active Not Available [employer] [facility] 4 10:12:26 Hypertens griffin disorder 36619193 Active 2023 EVANGELINA HOUSTON, DO [address] [place], [address] , [facility] 4 10:24:41 Sensorine ural hearing loss of bilateral ears 817252383 Active 2024 f/w [facility] EVANGELINA HOUSTON, DO [address] [place] [address], [address] [place] [address] 5 16:04:46 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 Procedures Surgical History Date Name Laterality Status Provider Name and Address Organization Details Recorded Time 07/24/19 25 TCM completed [facility] 07/23/2024 10:04:38 05/22/19 25 Injection Joint/Bursa, Small, w/o US completed KENIA LEO APRN [address] [place], [address], [facility] 05/21/2024 15:08:03 04/12/19 25 TCM completed [facility] 04/05/2024 13:12:55 02/16/19 25 Post Void Residual; Ultrasound completed Elizabeth Stone [facility] 02/17/2024 10:05:41 02/06/20 24 Injection Joint/Bursa, Small, w/o US completed KENIA LEO, CASH REGISTER BALANCER [address] [place], [address], [facility] 02/06/2024 15:20:44 01/30/20 24 Destruction Premalignant Lesion(s) completed Renuka Sears [facility] 01/30/2024 10:19:17 01/17/20 24 Injection Joint/Bursa, Small, w/o US completed KENIA LEO, CASH REGISTER BALANCER [address] [place], [address], [facility] 01/17/2024 13:32:56 10/21/19 24 Reclast Infusion completed Milton Zee [facility] 10/21/2023 12:29:17 09/21/19 24 TCM completed Sol Gann [facility] 09/17/2023 09:12:16 06/09/19 24 TCM completed Mo Guerra [facility] 06/02/2023 14:11:12 01/26/20 23 Destruction BN Lesions completed Lalita Coelho [facility] 01/25/2023 09:47:09 01/06/20 23 Spirometry completed Ester Juanis [facility] 01/05/2023 09:10:09 11/30/19 23 Injection Joint/Bursa, Small, w/o US completed KENIA LEO, CASH REGISTER BALANCER [address] [place], [address], [facility] 11/29/2022 10:01:36 11/06/19 23 Airway Resistance completed Ester Juanis [facility] 11/05/2022 08:15:12 11/06/19 23 Diffusion Capacity completed Ester Juanis [facility] 11/05/2022 08:15:10 11/06/19 23 Lung Volumes, Plethysmography completed Ester Juanis [facility] 11/05/2022 08:15:13 11/06/19 23 Spirometry completed Ester Juanis [facility] 11/05/2022 08:17:05 10/27/19 23 TCM completed Mo Guerra [facility] 10/26/2022 09:18:08 07/09/19 23 Stress Test - Nuclear Lexiscan completed GABRIELLA GAFFNEY MD [address] [place], [address], [facility] 07/08/2022 13:15:11 05/01/19 23 TCM completed JELANI VENEGAS PA-C [address] [place], [address], [facility] 04/29/2022 11:47:19 04/23/19 23 EKG completed GABRIELLA GAFFNEY MD [address] [place], [address], [facility] 04/22/2022 13:37:25 04/16/19 23 Injection Joint/Bursa, Small, w/o US completed KENIA LEO APRN [address] [place], [address], [facility] 04/15/2022 09:43:06 04/16/19 23 Injection Trigger Finger completed KENIA LEO APRN [address] [place], [address], [facility] 04/15/2022 09:43:33 03/30/19 23 colonoscopy completed Amita Crawford [facility] 03/31/2022 10:12:24 01/26/20 22 Destruction Premalignant Lesion(s) completed Lalita Coelho [facility] 01/25/2022 10:30:08 01/26/20 22 Shave Lesion; face, ear, eyelid, nose, lip, muc memb completed JOSE ANDERSON MD [address] [place], [address], [facility] 01/26/2022 17:32:59 12/22/19 22 TCM completed Mo Guerra [facility] 12/10/2021 14:48:20 08/18/19 22 Injection Joint/Bursa, Small, w/o US completed KENIA LEO APRN [address] [place], [address], [facility] 08/17/2021 08:38:09 06/24/19 22 EKG completed JASON BURGOS PA-C [address] [place], [address], [facility] 06/23/2021 11:14:58 06/04/19 22 arthroscopic debridement of knee joint completed Kun Jose [facility] 06/17/2021 14:29:32 11/08/19 21 Shave Lesion; trunk, arm, leg completed JOSE ANDERSON MD [address] [place], [address], [facility] 11/11/2020 17:50:29 11/08/19 21 Destruction Premalignant Lesion(s) completed Lalita Coelho [facility] 11/07/2020 13:50:19 11/04/19 21 Op Note completed TRISH MAYNARD MD [address] [place], [address], [facility] 11/03/2020 09:48:35 08/19/19 21 catheterization of left heart completed Marybel Alvarado [facility] 09/01/2020 15:41:19 07/09/19 21 Stress Test - Nuclear Lexiscan completed JOHANA BARNEY MD [address] [place], [address], [facility] 07/08/2020 15:17:35 06/26/19 21 Endoscopy Nasal; Diagnostic completed CIDNY LABOY MD [address] [place], [address], [facility] 06/25/2020 16:17:59 06/24/19 21 EKG completed JASON BURGOS PA-C [address] [place], [address], [facility] 06/23/2020 12:34:26 02/07/19 18 Stent Placement completed EVANGELINA HOUSTON DO [address] [place], [address], [facility] 07/01/2020 08:01:28 02/07/19 00 CABG completed Madyson Pinto [facility] 06/19/2020 10:53:23 repair of hip completed Madyson Pinto [facility] 06/19/2020 10:54:31 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 completed EVANGELINARAFAEL HOUSTON, [address], [address], [facility] 07/01/2020 08:01:49 Cataract Surgery completed Madyson Pinto [facility] 06/19/2020 11:48:18 removal of thyroid nodule completed EVANGELINA HOUSTON, [address], [address], [facility] 06/19/2020 12:50:12 cholecystectomy completed EVANGELINARAFAEL HOUSTON, [address] [place], [address], [facility] 07/01/2020 08:00:48 Carpal tunnel surgery completed Corin Logan [facility] 11/11/2020 10:10:27 Imaging Results None recorded. Procedure Notes None recorded. Medical Equipment None Reported. Allergies Allergen ID Allergen Name Allergen Category Reaction Reaction Severity Criticality Documentation Date Start Date Code Code System Note Provider Name and Address Organization Details Recorded Time 356839 iodine medicatio n Not available Not available Not available 06/19/2020 5933 RxNorm Madyson Pinto [facility] 10:45:39 411539 adhesive tape environme nt,medica tion Not available Not available Not available 06/19/2020 45973 UNK Madyson Pinto [facility] 10:45:44 Medications Name Sig Start Date [...] completed Not Available Not Available Not Available Colfax 10 mg-325 mg tablet Take 1 tablet [...] 10/23/24 @ 0930 - ICD 10 - M81.0 Not Available Not Available [...] Droplet Pen Needle 31 gauge x 5/16 USE DIRECTED FOUR TIMES DAILY WITH INSULIN [...] Details Last Updated DateTime 5 175.26 cm 25.7 kg/m2 41150.0 7 g 97.8 [degF] 85 /min 136/80 mm[Hg] Brianne Vann [facility] 10:42:48 Social History Question Answer Notes LastModified by Organizat ion Details LastModified Time Tobacco Smoking Status Former Smoker Susan [email or web address], [facility] 10/23/2020 08:53:41 What Is Your Level Of Caffeine Consumption? Moderate [email or web address] Information not available 06/19/2020 What Type Of Diet Are You Following? REGULAR [email or web address] Information not available 06/19/2020 Education 2 Year College [email or web address] Information not available 06/19/2020 When Did You Quit Smoking? 16+yearssince [email or web address] Information not available 07/15/2022 Live Alone Or With Others? With Others [email or web address] Information not available 06/19/2020 Marital Status [email or web address] Informatio n not available 06/19/2020 What Was The Date Of Your Most Recent Tobacco Screening? 05/23/2024 [email or web address] Information not available 05/23/2024 How Many Children Do You Have? 5 [email or web address] Information not available 06/19/2020 What Is Your Relationship Status? [email or web address] Information not available 10/03/2020 Are You Sexually Active? No [email or web address] Information not available 06/19/2020 At What Age Did You Start Smoking Tobacco? 18 [email or web address] Information not available 11/05/2022 How Much Tobacco Do You Smoke? No Information not available 07/17/2020 Has Tobacco Cessation Counseling Been Provided? No [email or web address] Information not available 10/03/2020 How Many Years Have You Smoked Tobacco? 0 [email or web address] Information not available 07/17/2020 Sex: Male Functional Status Question Answer Note LastModified by Organizat ion Details LastModified Time Do you use any illicit or recreational drugs? No [email or web address] Information not available 10/03/2020 Do you or have you ever used any other forms of tobacco or nicotine? No [email or web address] Information not available 10/03/2020 What is your level of alcohol consumption? None [email or web address] Information not available 06/19/2020 Do you or have you ever used smokeless tobacco? Never used [email or web address] tobacco Information not available 07/17/2020 Are you currently employed? No [email or web address] Information not available 06/30/2023 Are you able to care for yourself? 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 Never used electronic cigarettes [email or web address] Information not available 07/17/2020 What is your exercise level? None [email or web address] Information not available 06/19/2020 Mental Status None recorded. Family History Relationship Description Onset Age of this Age Resolved Age Notes LastModified by Organization Details LastModified Time Mother Blood coagulation disorder [email or web address] Not available 2020 11:46:13 Mother Myocardial infarction [email or web address] Not available 06/19 11:46:44 Mother Cerebrovascu lar accident [email or web address] Not available 11:46:56 Mother Disorder of thyroid gland [email or web address] Not available 2020 11:47:03 Mother Complication of anesthesia [email or web address] Not available 02/05 13:08:57 Mother Heart disease [email or web address] Not available 2021 13:09:17 Mother Hypertensive disorder [email or web address] Not available 2021 13:09:28 Mother Diabetes mellitus [email or web address] Not available 2021 13:09:45 Brother Malignant melanoma [email or web address] Not available 2020 11:46:32 Brother Myocardial infarction [email or web address] Not available 06/19 11:46:48 Brother Disorder of [...] Immunizations Vaccine Type Date Status Note Provider Artemio e and Address Organization Details Recorded Time Influenza, high-dose, quadrivalent, PF 1 completed Madyson Pinto [facility] 12/19/2020 10:31:45 Influenza, high-dose, quadrivalent, PF 2 [place] [address] [place] [address], [address], [facility] 12/21/2021 14:25:14 Influenza, high-dose, quadrivalent, PF 3 completed EVANGELINA HOUSTON DO [address] [place], [address], [facility] 12/01/2022 15:39:31 COVID-19 vaccine, vector-nr, rS-ChAdOx1, PF, 0.5 mL 1 completed Not Available [facility] 03/08/2023 14:48:10 COVID-19 vaccine, vector-nr, rS-ChAdOx1, PF, 0.5 mL 1 completed Not Available [facility] 03/08/2023 14:48:10 COVID-19, mRNA, LNP-S, PF, 50 mcg/0.5 mL 3 completed EVANGELINA HOUSTON DO [address] [place], [address], [facility] 01/24/2023 09:42:50 RSV, recombinant, protein subunit RSVpreF, adjuvant reconstituted, 0.5 mL, PF 3 completed EVANGELINA HOUSTON DO [address] [place], [address], [facility] 01/24/2023 09:42:50 COVID-19, mRNA, LNP-S, PF, 30 mcg/0.3 mL dose 1 completed Sabrina Curry [facility] 04/30/2022 12:55:14 Influenza, high-dose, trivalent, PF 4 [place] [address] [place] [address], [address], [facility] 01/26/2024 10:51:52 COVID-19, mRNA, LNP-S, PF, 50 mcg/0.5 mL 4 completed EVANGELINA HOUSTON DO [address] [place], [address], [facility] 01/26/2024 10:51:52 zoster recombinant 2 completed Sabrina Critchley null, [facility] 04/30/2022 12:55:13 zoster recombinant 2 completed Sabrina Critchley null, [facility] 04/30/2022 12:55:14 Influenza, adjuvanted, quadrivalent, PF 0 completed Sabrina Critchley [facility] 04/30/2022 12:55:14 COVID-19, mRNA, LNP-S, PF, 30 mcg/0.3 mL dose 1 completed Sabrina Critchley [facility] 04/30/2022 12:55:14 COVID-19, mRNA, LNP-S, PF, 30 mcg/0.3 mL dose 1 completed Sabrina Critchley [facility] 04/30/2022 12:55:14 Tdap 0 completed Sabrina Critchley [facility] 04/30/2022 12:55:14 influenza, seasonal, intradermal, preservative free 9 completed Sabrina Critchley [facility] 04/30/2022 12:55:14 influenza, seasonal, intradermal, preservative free 8 completed [facility] 04/[facility] 12:55:14 Past Encounters Encounter ID Performer Location Encounter Start Date Encounter Closed Date Diagnosis/Indication Diagnosis SNOMED-CT Code Diagnosis ICD10 Code Diagnosis Note [id number] FERNANDA CRUZ PA-C [facility] [address] [place] [address] 06/18/2024 13:28:50 06/18/2024 14:23:40 Acute cough 3010188143 25929608 R05.1 has become productive . see tx plan below. O2 sat a bit low at 93%. Acute bact erial bronchitis 201721735 J20.8 B96.89 start doxy and mucinex as directed. lance domingo DM for cough. he was advised this causes drowsiness . continue neb tx as needed. He declines an oral steroid today. Supportive tx measures discussed. re eval if not improving in 4-5 days or if worsens. [id number] EVANGELINA HOUSTON, DO [facility] [address] [place] [address] 07/05/2024 10:32:51 07/05/2024 11:53:45 Right flank pain 086497629 R10.9 Right flank pain and history of [...] expresses understand ing with plan Chronic cough 06056970 R 05.3 Right-side d pneumonia 03/2024, now with left sided rhonchi and chronic cough. Recommend CT chest to evaluate.Randi neal history of 5 mm pancreatic head lesion on outside imaging 10/2023.Toan stratton attempt to get CT chest abdomen pelvis today without contrast for stone evaluation , if intra-abdo peter lesion is again noted contrasted imaging follow up may ultimately be necessary. Chronic ki dney disease stage 3A [id number] N18.31 Most recent GFR has improved to 74Stable. Continue to avoid NSAIDs. Continued control of diabetes of paramount importance Health Concerns Section Related Observation LastModified by Organization Detai ls LastModified Time None Recorded Concern Status LastModified by Organization Details LastModified Time None Recorded Payers Encounter Date Sequence Insurance Name Policy Number Policy Coleman Covered Member ID Coleman Member ID Guarantor Name 07/05/2024 1 [employer] (MEDICARE) Obdulio Gold [id number] Obdulio Gold 07/05/2024 2 [employer] (MEDICARE SUPPLEMENT) Obdulio Gold [id number] Obdulio Gold Notes Date Note Type Note Provider Name and Address Organization Details Recorded Time 07/05/2024 text/html The patient is a 68-year-old [...] medications, including Flomax and finasteride, and uses [place] for pain, although it has been minimally effective for the current pain. EVANGELINA HOUSTON DO [facility], [place], [address], [facility] 07/05/2024 11:12:03
--- OUTSIDE RECORDS SUMMARY | 2024-08-13 12:48 | XMS_ITS | Encounter Summary ---
Author Organization [facility] Address [address] [place] [address] Support Name Relationship Address Phone Stepan Gold Personal Relationship 711 02/[address] [facility] [address] [place] [address] Mi Gold Personal Relationship Unknown Rosalind Mai Personal Relationship Unknown [phone] Vivi Ward Personal Relationship Unknown Care Team Providers Care Geological Science Teacher Name Role Phone Lesley Grace MD Primary Care Provider [phone] Provider, Historical Unavailable Unavailable Willi Templeton MD Unavailable María Andre MD Unavailable Selene Rodriguez EVENT SECURITY OFFICER Unavailable Mariah Flowers EVENT SECURITY OFFICER Unavailable Neyda Beltran MD Unavailable Ryanne Roblero MD Unavailable Unavailable Mi Martin EVENT SECURITY OFFICER Unavailable [phone] Elijah Serra DO Primary Care Provider [phone] Micha [place] MD Unavailable Reason for Visit * Reason Onset Date Comments Referral Status 02/29/2012 Encounter Details Date Type Department Care Team (Late st Contact Info) Description 02/29/[address] LESLEY GRACE MD, [address] [place] [address] Lesley Grace MD [address] [place] [address] [address] [place] [address] Referral Status Social History Tobacco Use Types Packs/Day Years [...] * Telephone Encounter - Sapphire Mary - 02/29/2012 4:07 PM EST Inf. Pt of appt with Dr. Crwaford on 03/13/12 @ 8:00 am documented in this encounter Plan of Treatment Upcoming Encounters Date Type Department Care Team (Late st Contact Info) Description 11/06/2024 11:00 AM EDT Office Visit [address], [facility] [place] [address], [address] [place] [address] Micha [place] MD [address] [place] [address] [place] [address] Molly Figueroa PA-C [address] [place] [phone] documented as of this encounter Visit Diagnoses Not on filedocumented in this encounter Additional Health Concerns Infection Onset Date Last Indicated Resolved Time 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 02/24/2017 02/22/2017 02/22/2017 04/02/2024 9:[address] documented as of this encounter Care Teams Geological Science Teacher Relationship Specialty Start Date End Date Lesley Grace MD [address] [place] [address] [place] [address] PCP - General 02/16/09 04/13/23 Elijah Serra DO [address] [place] [address] PCP - General Family Medicine 07/21/23 Provider, Historical 02/16/16 08/25/16 Willi Templeton MD [address] [place] [address] Gastroenterology 02/25/16 María Andre MD [address] [place] [address] [address] [place] [address] Gastroenterology 03/08/16 Selene Rodriguez APRN [address] [place] [address] [address] [place], [place] [id number] Gastroenterology 08/23/16 Mariah Flowers APRN [address] [place] [address] [address] [place] [address] Nurse Practitioner 08/26/16 Neyda Beltran MD [address] [place] [address] [address] [place] [address] Nephrology 03/17/17 Ryanne Roblero MD [address] [place] [address] [address] [place] [address] Rheumatology 03/01/18 Mi Martin APRN [address] [place] [address] [address] [place] [address] Nurse Practitioner Nurse Practitioner 04/16/19 Micha [place] MD [address] [place] [address] Endocrinology 08/06/24 08/06/24 documented as of this encounter
--- OUTSIDE RECORDS SUMMARY | 2024-08-13 12:48 | XMS_ITS | Data Portability ---
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 Lab None record ed. Referral None record ed. Procedures None record ed. Surgeries None record ed. Imaging XR, hip + pelvis , unilat eral, 1 view 023 08/28/19 23 [email or web address] [facility], [address], [place], [address], 16:12:04 Medication Orders None record ed. Patient TargetsNo targets recorded. Patient Instructions Encounter Date Encounter Id Patient Instructions Last Modified By Organization Details Last Modified Time 08/27/2022 [id number] I explained to this patient that his hip injury was likely just soft tissue in nature. This could have been a near dislocation event but could have just been a strain. Regardless, he has near critical polyethylene wear in the hip that has been present for almost 30 years she states. I think it is probably a good idea to proceed with hip revision surgery. I would recommend cup revision to a newer polyethylene or even dual mobility to limit the risk of dislocation as well as future polyethylene wear. He is going to think about this option and call back to schedule when he is ready. This will be a left posterior acetabular revision done at [facility]. He would need cardiac clearance [email or web address] Not available 08/27/2022 16:11:18 Reason for Referral None Reported. Results Created Date Observation Date Name Description Value Unit Range Abnormal Flag Note LastModifiedBy Organization Detail LastModifiedTime 08/28/19 23 08/27/2022 XR, hip + pelvi s, unila teral , 1 view No observ ation record ed. [email or web address] [facility] [address], [place], [address], 08/27/2022 16:10:17 Result Notes None recorded. Problems Name Problem SNOMED Code Status Onset Date Resolution Date Notes Provider Name and Address Organization Details Recorded Time Pain of left hip joint [id number] Active 2022 Mi Aparicio [facility] 15:30:37 Problem Notes None recorded. Procedures Surgical History Date Name Laterality Status Provider Name and Address Organization Details Recorded Time 09/17/19 Carpal Tunnel Surgery completed MD [address], [place], [address], [facility] 08/27/2022 15:16:12 05/18/19 20 Cataract Surgery completed MD [address], [place], [address], [facility] 08/27/2022 15:16:12 11/22/19 06 Knee Replacement completed MD [address], [place], [address], [facility] 08/27/2022 15:16:12 11/22/19 01 Cardiovascular Surgery completed MD [address], [place], [address], [facility] 08/27/2022 15:16:12 09/21/18 91 Hip Replacement completed Horacio Rodriguez MD [address], [place], [address], [facility] 08/27/2022 15:16:12 09/21/18 66 Thyroid Surgery completed Horacio Rodriguez MD [address], [place], [address], [facility] 08/27/2022 15:16:12 Imaging Results None recorded. Procedure Notes None recorded. Medical Equipment None Reported. Medications Name Sig Start Date Stop Date Status Note LastModified by Organization Details LastModified Time Plaquenil 200 mg tablet Take 1 tablet every day by oral route. active Not Available Not Available No t Available aspirin 227 mg-acetamino phen 194 mg-caffeine 33 mg tablet Take by oral route. active Not Available Not Available Not Available Carafate 1 gram tablet Take 1 tablet 4 times a day by oral route. active Not Available Not Available No t Available metoprolol succinate ER 50 mg tablet,exten ded release 24 hr Take 1 tablet every day by oral route. active Not Available Not Available No t Available Lasix 40 mg tablet Take 1 tablet every day by oral route. active Not Available Not Available No t Available allopurinol 100 mg tablet Take 1 tablet every day by oral route. active Not Available Not Available No t Available Plavix 75 mg tablet Take 1 tablet every day by oral route. active Not Available Not Available No t Available trazodone 150 mg tablet Take 1 tablet twice a day by oral route. active Not Available Not Available No t Available colchicine 0.6 mg tablet Take 1 tablet every day by oral route. active Not Available Not Available No t Available Flonase 50 mcg/Actuatio n nasl susp Pedro 1 spray every day by intranasal route. active Not Available Not Available No t Available Crestor 10 mg tablet Take 1 tablet every day by oral route. active Not Available Not Available No t Available Cymbalta 30 mg capsule,layton yed release Take 1 capsule every day by oral route. active Not Available Not Available No t Available Zanaflex 4 mg capsule Take 1 capsule every 6 hours by oral route. active Not Available Not Available Not Available aspirin 81 active Not Available Not Avail able Not Available gabapentin 600 active Not Available Not Av ailable Not Available Zyrtec 10 mg capsule Take by oral route. active Not Available Not Available Not Available potassium chloride 10 mEq/5 mL(2 mEq/mL) in sterile water IV syr(conc) Inject by intravenous route. active Not Available Not Available No t Available Vitals None Recorded Social History Question Answer Notes LastModified by Organizat ion Details LastModified Time Tobacco Smoking Status Never Smoker Horacio Rodriguez MD [address] [address], [place], [address], [facility] 08/27/2022 15:16:07 Do You Have An Advance Directive? Yes Information n ot available 08/27/2022 In The 14 Days Before Symptom Onset, Have You Had Close Contact With A Laboratory-confirm ed COVID-19 While That Case Was Ill? No Information n ot available 08/27/2022 In The 14 Days Before Symptom Onset, Have You Had Close Contact With A Person Who Is Under Investigation For COVID-19 While That Person Was Ill? No Information not available 08/27/2022 Have You Been To An Area Known To Be High Risk For COVID-19? No Information not available 08/27/2022 Do You Have A Medical Power Of Primer Supervisor? Yes Information not available 08/27/2022 Have You Recently Traveled Abroad? No Information not available 08/27/2022 Sex: Male Functional Status Question Answer Note LastModified by Organizat ion Details LastModified Time Do you use any illicit or recreational drugs? No Information not available 08/27/2022 Do you or have you ever used any other forms of tobacco or nicotine? No Information not available 08/27/2022 What is your level of alcohol consumption? None Information not available 08/27/2022 Do you or have you ever used smokeless tobacco? Never used smokeless tobacco Information not available 08/27/2022 Do you or have you ever used e-cigarettes or vape? Never used electronic cigarettes Information not available 08/27/2022 Mental Status None recorded. Family History Nothing Reported. Medical History Condition Response Coronary Artery Disease Y Gout Y Thyroid Disease Y MRSA Y Arthritis Y High Cholesterol Y Rheumatoid Arthritis Y Gastrointestinal Disease/GERD Y Kidney Disease Y Heart Attack (OR) Y Diabetes Y Heart Disease Y Past Encounters Encounter ID Performer Location Encounter Start Date Encounter Closed Date Diagnosis/Indication Diagnosis SNOMED-CT Code Diagnosis ICD10 Code Diagnosis Note [id number] Horacio Rodriguez MD [facility] [facility] [address] [facility] [address] [place] [place] [id number] 08/27/2022 15:07:23 08/27/2022 15:49:02 Pain of left hip joint [id number] 94414 M25.552 Health Concerns Section Related Observation LastModified by Organization Detai ls LastModified Time None Recorded Concern Status LastModified by Organization Details LastModified Time None Recorded Advance Directives Directive Y: Payers Insurance Date Sequence Insurance Name Policy Number Policy Coleman Covered Member ID Coleman Member ID Guarantor Name 08/27/2022 2 [employer] (MEDICARE SUPPLEMENT) Obdulio Gold [id number] Obdulio Gold 08/27/2022 1 [place] Obdulio Gold [id number] Obdulio Gold Notes Date Note Type Note Provider Name and Address Organization Details Recorded Time 08/27/2022 text/html This patient comes in for evaluation of his left hip. He has a remote history of a left total hip performed by Dr. Rodas about 30 years ago he says. Recently he was twisting getting into his truck and felt a sharp pain in the left groin. This has gotten better slightly over time. However, he went to come in to have his hip checked out. He does have a history of a staph infection after open heart surgery and history of MRSA to his lower leg. Horacio Rodriguez MD [address] [facility] [address], [place], [address], [facility] 08/27/2022 16:12:06
--- OUTSIDE RECORDS SUMMARY | 2024-08-13 12:48 | XMS_ITS | Encounter Summary ---
Author Organization [facility] Address [address] [place] [address] Support Name Relationship Address Phone Stepan Gold Personal Relationship [address] [facility] [facility] [place] [address] Mi Gold Personal Relationship Unknown Rosalind Mai Personal Relationship Unknown [phone] Vivi Ward Personal Relationship Unknown [phone] Care Team Providers Care Director Geophysical Laboratory Name Role Phone Lesley Grace MD Primary Care Provider [phone] Provider, Historical Unavailable Unavailable Willi Templeton MD Unavailable María Andre MD Unavailable Selene Rodriguez ASPHALT RAKER Unavailable Mariah Flowers ASPHALT RAKER Unavailable Neyda Beltran MD Unavailable Ryanne Roblero MD Unavailable Unavailable Mi Martin ASPHALT RAKER Unavailable [phone] Elijah Serra DO Primary Care Provider Micha [place] MD Unavailable Reason for Visit * Reason Onset Date Comments Referral Status 08/09/2012 Encounter Details Date Type Department Care Team (Late st Contact Info) Description 08/09/[address] LESLEY GRACE MD, [address] [place] [address] Lesley Grace MD [address] [place] [address] [address] [place] [id number] Referral Status Social History Tobacco Use Types [...] * Telephone Encounter - Usman Sapphire - 08/09/2012 10:56 AM EDT Inf. Pt of appt with Dr. Colon on 08/23/12 @ 3:00 documented in this encounter Plan of Treatment Upcoming Encounters Date Type Department Care Team (Late st Contact Info) Description 11/06/2024 11:00 AM EDT Office Visit [address] [place], [address] [place], [place] [address] Micha [place] MD [address] [place] [address] [place] [address] Molly Figueroa PA-C [address] [place] [address] documented as of this encounter Visit Diagnoses Not on filedocumented in this encounter Additional Health Concerns Infection Onset Date Last Indicated Resolved Time 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 02/24/2017 02/22/2017 02/22/2017 04/02/2024 9:[address] documented as of this encounter Care Teams Director Geophysical Laboratory Relationship Specialty Start Date End Date Lesley Grace MD [address] [place] [address] [address] [place] [address] PCP - General 02/16/09 04/13/23 Elijah Serra DO [address] [place] [address] PCP - General Family Medicine 07/21/23 Provider, Historical 02/16/16 08/25/16 Willi [place] MD [address] [place] [address] [address] [place] [address] Gastroenterology 02/25/16 María Andre MD [address] [place] [address] [address] [place] [address] Gastroenterology 03/08/16 Selene Rodriguez APRN [address] [place] [address] Gastroenterology 08/23/16 Mariah Flowers APRN [address] [place] [address] [address] [place] [address] Nurse Practitioner 08/26/16 Neyda Beltran MD [address] [place] [address] [address] [place] [address] Nephrology 03/17/17 Ryanne Roblero MD [address] [place] [address] [address] [place] [address] Rheumatology 03/01/18 Mi Martin APRN [address] [place] [address] [address] [place] [address] Nurse Practitioner Nurse Practitioner 04/16/19 Micha [place] MD [address] [place] [address] Endocrinology 08/06/24 08/06/24 documented as of this encounter
--- OUTSIDE RECORDS SUMMARY | 2024-08-13 12:48 | XMS_ITS | Encounter Summary ---
Author Organization Healthcare Address [address] [id number] Care Team Providers Care Wastewater Treatment Supervisor Name Role Phone Ponce, Elijah Claudia VASQUES Primary Care Provider [phone] Nancy Trammell LPN Unavailable Unavailabl e Reason for Visit * Reason Comments Follow-up Encounter Details Date Type Department Care Team (Late st Contact Info) Description 08/02/2024 Patient Outreach [facility] [address] [place] [address] Nancy Trammell, [facility] Follow-up Social History Tobacco Use Types Packs/Day Years [...] and Family Not on file 07/16/2024 Attends [employer] Not on file 07/16 Active Member [...] any time in the past 12 m [facility], were you homeless or living in a halfway (including now)? No 07/16/2024 Utilities Answer Date [...] Progress Notes - Nancy Trammell LPN - 08/02/2024 2:41 PM EDT 08/02/2024 TCM Follow-up Call Patient reached: Yes Outcome: Called patient for a follow up TCM call. Patient reports he is doing better. Denies SOA, fever and chest pain. Patient reports he still has a little cough. Patient reports he goes back to see his PCP in a month but if his coughing continues he will get in sooner. Patient has no questions or concerns for this nurse at this time. Action: N/A documented in this encounter Plan of Treatment Not on file documented as of this encounter Visit Diagnoses Not on filedocumented in this encounter Additional Health Concerns Infection Onset Date Last Indicated Resolved Time MRSA Comment:Added from external infection. Source: [facility]. 02/22/2017 07/15/2024 Assessment Noted Time A Body Mass Index follow-up plan has been documented for the patient 07/20/2024 1:44 PM EDT documented as of this encounter Care Teams Wastewater Treatment Supervisor Relationship Specialty Start Date End Date Elijah Serra DO [address] [place] [address] PCP - General Wood Fence Installer 12/01/22 Nancy Trammell LPN [facility] TCM Nurse 07/23/24 documented as of this encounter
--- OUTSIDE RECORDS SUMMARY | 2024-08-13 12:48 | XMS_ITS | Encounter Summary ---
Author Organization [facility] Address [address] [place] [address] Support Name Relationship Address Phone Stepan Gold Personal Relationship [address] [place] [address] Mi Gold Personal Relationship Unknown Rosalind Mai Personal Relationship Unknown [phone] Vivi Ward Personal Relationship Unknown Care Team Providers Care Industrial Energy Engineer Name Role Phone Yehuda Barger MD Primary Care Provider Provider, Historical Unavailable Unavailable Willi Templeton MD Unavailable María Andre MD Unavailable Selene Rodriguez AIRPLANE WOODWORKER Unavailable [phone] Mariah Flowers AIRPLANE WOODWORKER Unavailable Neyda Beltran MD Unavailable Ryanne Roblero MD Unavailable Unavailable Mi Martin AIRPLANE WOODWORKER Unavailable [phone] Elijah Serra DO Primary Care Provider Micha [place] MD Unavailable Encounter Details Date Type Department Care Team (Late st Contact Info) Description 06/14/2012 Telephone MED ASSESSMENT SUITE Marilu Mcqueen, RN Social History Tobacco Use Types Packs/Day [...] encounter Miscellaneous Notes * Telephone Encounter - Marilu Mcqueen RN - 06/14/2012 3:56 PM EDT Attempted call, no answer. documented in this encounter Plan of Treatment Upcoming Encounters Date Type Department Care Team (Late st Contact Info) Description 11/06/2024 11:00 AM EDT Office Visit [facility] [address] [place] [address], [facility], [address] [phone] Micha [place] MD [address] [place] [address] Molly Figueroa PA-C [address] [place] [address] documented as of this encounter Visit Diagnoses Not on filedocumented in this encounter Additional Health Concerns Infection Onset Date Last Indicated Resolved Time 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 02/24/2017 02/22/2017 02/22/2017 04/02/2024 9:[address] documented as of this encounter Care Teams Industrial Energy Engineer Relationship Specialty Start Date End Date Yehuda Barger MD [address] [place] [address] [address] [facility] [place] [address] PCP - General 02/16/09 04/13/23 Elijah Serra DO [address] [place] [address] PCP - General Family Medicine 07/21/23 Provider, Historical 02/16/16 08/25/16 Willi [place] MD [address] [place] [address] [address] [place] [address] Gastroenterology 02/25/16 María Andre MD [address] [place] [address] [address] [place] [address] Gastroenterology 03/08/16 Selene Rodriguez APRN [address] [place] [address] [address] [place] [address] Gastroenterology 08/23/16 Mariah Flowers APRN [address] [place] [address] 510 [place] [address] Nurse Practitioner 08/26/16 Neyda Beltran MD [address] [place] [address] [address] [place] [address] Nephrology 03/17/17 Ryanne Roblero MD [address] [place] [address] [address] [place] [address] Rheumatology 03/01/18 Mi Martin APRN [address] [place] [address] [address] [place] [address] Nurse Practitioner Nurse Practitioner 04/16/19 Micha [place] MD [address] [place] [address] [address] [place] [address] Endocrinology 08/06/24 08/06/24 documented as of this encounter
--- OUTSIDE RECORDS SUMMARY | 2024-08-13 12:49 | XMS_ITS | Encounter Summary ---
Author Organization [facility] Address [address] [place] [address] Support Name Relationship Address Phone Stepan Gold Personal Relationship [address] [place] [address] Mi Gold Personal Relationship Unknown Rosalind Mai Personal Relationship Unknown [phone] Vivi Ward Personal Relationship Unknown [phone] Care Team Providers Care Laundry Marker Supervisor Name Role Phone Yehuda Barger MD Primary Care Provider [phone] Provider, Historical Unavailable Unavailable Willi Templeton MD Unavailable [phone] María Andre MD Unavailable Selene Rodriguez HIGHWAY MAINTAINER Unavailable Mariah Flowers HIGHWAY MAINTAINER Unavailable Neyda Beltran MD Unavailable Ryanne Roblero MD Unavailable Unavailable Mi Martin HIGHWAY MAINTAINER Unavailable [phone] Elijah Serra DO Primary Care Provider Micha Washington MD Unavailable Encounter Details Date Type Department Care Team (Late st Contact Info) Description 01/07/2016 Telephone [facility] [address] [place] [place] [address] Yehuda Barger MD [address] [place] [address] [place] [address] Social History Tobacco Use Types Packs/Day Years [...] encounter Miscellaneous Notes * Telephone Encounter - Cara Sinclair - 01/07/2016 10:18 AM EST Not [facility] patient, (possibly Yehuda Barger?) * Telephone Encounter - Glenny Richter - 01/07/2016 10:14 AM EST Obdulio Gold phoned in requesting test result(s). Upon review of patient medical record result(s) are pending provider review. Patient advised to call back 24 to 72 hours. Xray documented in this encounter Plan of Treatment Upcoming Encounters Date Type Department Care Team (Late st Contact Info) Description 11/06/2024 11:00 AM EDT Office Visit [address], [facility], [address] [place] [phone] Micha Washington MD [address] [address] [place] [address] Molly Figueroa PA-C [address] [place] [address] documented as of this encounter Visit Diagnoses Not on filedocumented in this encounter Additional Health Concerns Infection Onset Date Last Indicated Resolved Time 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 02/24/2017 02/22/2017 02/22/2017 04/02/2024 9:[address] documented as of this encounter Care Teams Laundry Marker Supervisor Relationship Specialty Start Date End Date Yehuda Barger MD [address] [place] [address] [address] [place] [address] PCP - General 02/16/09 04/13/23 Elijah Serra DO 100 [place] [address] PCP - General Family Medicine 07/21/23 Provider, Historical 02/16/16 08/25/16 Willi Templeton MD 61 [facility] [address] [place] [address] Gastroenterology 02/25/16 María Andre MD 61 [facility] [address] [place] [address] Gastroenterology 03/08/16 Selene Rodriguez APRN [address] [place] [address] Gastroenterology 08/23/16 Mariah Flowers APRN 61 [address] [address] [place] [address] Nurse Practitioner 08/26/16 Neyda Beltran MD 613 [facility] [address] [place] [address] Nephrology 03/17/17 Ryanne Roblero MD 61 [facility] [address] [place] [address] Rheumatology 03/01/18 Mi Martin APRN [address] [place] [address] Nurse Practitioner Nurse Practitioner 04/16/19 Micha Washington MD [address] [place] [address] Endocrinology 08/06/24 08/06/24 documented as of this encounter
--- OUTSIDE RECORDS SUMMARY | 2024-08-13 12:49 | XMS_ITS | Encounter Summary ---
Author Organization [facility] Address [address] [place] [address] Support Name Relationship Address Phone Stepan Gold Personal Relationship [address] [place] [address] Mi Gold Personal Relationship Unknown [phone] Rosalind Mai Personal Relationship Unknown [phone] Vivi Ward Personal Relationship Unknown [phone] Care Team Providers Care Inspector Packer Glass Container Name Role Phone Lesley Grace MD Primary Care Provider [phone] Provider, Historical Unavailable Unavailable Willi Templeton MD Unavailable María Andre MD Unavailable Selene Rodriguez SENIOR APPLICATIONS ENGINEER Unavailable Mariah Flowers SENIOR APPLICATIONS ENGINEER Unavailable Neyda Beltran MD Unavailable Ryanne Roblero MD Unavailable Unavailable Mi Martin SENIOR APPLICATIONS ENGINEER Unavailable Elijah Serra DO Primary Care Provider Micha Washington MD Unavailable Encounter Details Date Type Department Care Team (Late st Contact Info) Description 01/23/[address] LESLEY GRACE MD, [facility] [address] [place] [address] Lesley Grace MD 105 [facility] [address] [place] [address] Social History Tobacco Use Types Packs/Day Years [...] * Telephone Encounter - Sapphire Mary - 01/23/2015 4:45 PM EST Informed pt of pt appointment with Dr. Mcintosh on Tuesday01/27/15 @ 8:25 and informed her to picker packer pt x-ray and take it with him to his appointment. documented in this encounter Plan of Treatment Upcoming Encounters Date Type Department Care Team (Late st Contact Info) Description 11/06/2024 11:00 AM EDT Office Visit [facility] Endocrinology [address], [facility], [address] [place], [place] [phone] Micha Washington MD [address] [place] [address] Molly Figueroa PA-C [address] [place] [address] documented as of this encounter Visit Diagnoses Not on filedocumented in this encounter Additional Health Concerns Infection Onset Date Last Indicated Resolved Time 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 02/24/2017 02/22/2017 02/22/2017 04/02/2024 9:[address] documented as of this encounter Care Teams Inspector Packer Glass Container Relationship Specialty Start Date End Date Lesley Grace MD [address] [place] [address] [address] [facility] [address] [place] [address] PCP - General 02/16/09 04/13/23 PonceStephanuaDO 100 [place] [address] PCP - General Family Medicine 07/21/23 Provider, Historical 02/16/16 08/25/16 Willi Templeton MD [address] [place] [address] [address] [place] [address] Gastroenterology 02/25/16 María Andre MD [address] [place] [address] [address] [place] [address] Gastroenterology 03/08/16 Selene Rodriguez APRN [address] [place] [address] 203 [place] [address] Gastroenterology 08/23/16 Mariah Flowers APRN [address] [place] [address] 510 [place] [address] Nurse Practitioner 08/26/16 Neyda Beltran MD [address] [place] [address] [address] [place] [address] Nephrology 03/17/17 Ryanne Roblero MD [address] [place] [address] [address] [place] [address] Rheumatology 03/01/18 Mi Martin APRN [address] [place] [address] 102 [place] [address] Nurse Practitioner Nurse Practitioner 04/16/19 Micha Washington MD [address] [place] [address] Endocrinology 08/06/24 08/06/24 documented as of this encounter
--- OUTSIDE RECORDS SUMMARY | 2024-08-13 12:49 | XMS_ITS | Encounter Summary ---
Author Organization [facility] Address [address] [place] [address] Support Name Relationship Address Phone Stepan Gold Personal Relationship [address] [place] [address] Mi Gold Personal Relationship Unknown Rosalind Mai Personal Relationship Unknown + [phone] Vivi Ward Personal Relationship Unknown [phone] Care Team Providers Care Internet Researcher Name Role Phone Yehuda Barger MD Primary Care Provider [phone] Milton Crum DO Primary Care Provider Miky Benton MD Primary Care Provider [phone] Provider, Historical Unavailable Unavailable Willi Templeton MD Unavailable [phone] María Andre MD Unavailable [phone] Selene Rodriguez ASSOCIATE PROFESSOR OF PATHOLOGY Unavailable [phone] Mariah Flowers ASSOCIATE PROFESSOR OF PATHOLOGY Unavailable [phone] Neyda Beltran MD Unavailable [phone] Ryanne Roblero MD Unavailable Unavailable Mi Martin APRN Unavailable [phone] Elijah Serra DO Primary Care Provider [phone] Micha Washington MD Unavailable Encounter Details Date Type Department Care Team (Late st Contact Info) Description 03/23/2007 Historical Encounter [place], [place] Social History Tobacco Use Types Packs/Day Years [...] Description 11/06/2024 11:00 AM EDT Office Visit [facility] [address], [facility], [address] [place] [phone] Micha Washington MD [address] [place] [address] [place] [phone] Molly Figueroa PA-C [address] [place] [address] [place] [phone] documented as of this encounter Visit Diagnoses Not on filedocumented in this encounter Additional Health Concerns Infection Onset Date Last Indicated Resolved Time 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 02/24/2017 02/22/2017 02/22/2017 04/02/2024 9:[address] documented as of this encounter Care Teams Internet Researcher Relationship Specialty Start Date End Date Yehuda Barger MD [address] [place] [address] PCP - General 02/16/09 04/13/23 Milton Crum DO [address] [place] [address] PCP - General 01/08/09 02/15/09 Miky Louis MD [facility] [facility] [place] [address] PCP - General 12/26/07 01/07/09 Elijah Serra DO 100 [place], [place] [address] PCP - General Family Medicine 07/21/23 Provider, Historical 02/16/16 08/25/16 Willi Templeton MD [address] [place] [address] Gastroenterology 02/25/16 María Andre MD [address] [place] [address] [address] [facility] [place] [address] Gastroenterology 03/08/16 Selene Rodriguez APRN [address] [place] [address] 203 [place] [address] Gastroenterology 08/23/16 Mariah Flowers APRN [address] [place] [address] 510 [place] [address] Nurse Practitioner 08/26/16 Neyda Beltran MD [address] [place] [address] [address] [facility] [place] [address] Nephrology 03/17/17 Ryanne Roblero MD [address] [place] [address] [address] [facility] [place] [place] [address] Rheumatology 03/01/18 Mi Martin APRN [address] [place] [address] 102 [place] [address] Nurse Practitioner Nurse Practitioner 04/16/19 Micha Washington MD [address] [place] [address] [address] [place] [address] Endocrinology 08/06/24 08/06/24 documented as of this encounter
--- OUTSIDE RECORDS SUMMARY | 2024-08-13 12:49 | XMS_ITS | Encounter Summary ---
Author Organization [facility] Address [address] [place] [address] Support Name Relationship Address Phone Stepan Gold Personal Relationship [address] [facility] [place] [address] Mi Gold Personal Relationship Unknown Rosalind Mai Personal Relationship Unknown [phone] Vivi Ward Personal Relationship Unknown [phone] Care Team Providers Care Edge Bonder Name Role Phone Lesley Grace MD Primary Care Provider [phone] Provider, Historical Unavailable Unavailable Willi Templeton MD Unavailable María Andre MD Unavailable Selene Rodriguez TAXATION ECONOMIST Unavailable Mariah Flowers TAXATION ECONOMIST Unavailable Neyda Beltran MD Unavailable Ryanne Roblero MD Unavailable Unavailable Mi Martin TAXATION ECONOMIST Unavailable [phone] Elijah Serra DO Primary Care Provider Micha Washington MD Unavailable Reason for Visit * Reason Onset Date Comments Referral Status 01/06/2016 Encounter Details Date Type Department Care Team (Late st Contact Info) Description 01/06/[address] LESLEY GRACE MD, [address] [place] [address] Lesley Grace MD [address] [place] [address] [address] [facility] [place] [address] Referral Status Social History Tobacco Use Types [...] * Telephone Encounter - Sapphire Mary - 01/06/2016 1:37 PM EST Pt went to urgent care last night (01/05/16 ). They did xray of his left foot and he has 2 broken bones. They are referring him to Dr. Cervantes, but he states he hasn't heard from them. He wants to knowif you will refer him to Dr. Cervantes? documented in this encounter Plan of Treatment Upcoming Encounters Date Type Department Care Team (Late st Contact Info) Description 11/06/2024 11:00 AM EDT Office Visit [address], [address] [place] [phone] Micha Washington MD [address] [place] [address] Molly Figueroa PA-C [address] [place] [address] [place] [address] documented as of this encounter Visit Diagnoses Not on filedocumented in this encounter Additional Health Concerns Infection Onset Date Last Indicated Resolved Time 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 02/24/2017 02/22/2017 02/22/2017 04/02/2024 9:[address] documented as of this encounter Care Teams Edge Bonder Relationship Specialty Start Date End Date Lesley Grace MD [address] [place] [address] [address] [place] [address] PCP - General 02/16/09 04/13/23 Elijah Serra DO 100 [place] [address] PCP - General Family Medicine 07/21/23 Provider, Historical 02/16/16 08/25/16 Willi Templeton MD [address] [place] [address] Gastroenterology 02/25/16 María Andre MD [address] [place] [address] Gastroenterology 03/08/16 Selene Rodriguez APRN [address] [place] [address] 203 [place] [address] Gastroenterology 08/23/16 Mariah Flowers APRN [address] [place] 510 [place] [address] Nurse Practitioner 08/26/16 Neyda Beltran MD [address] [place] [address] Nephrology 03/17/17 Ryanne Roblero MD [address] [place] [address] Rheumatology 03/01/18 Mi Martin APRN [address] [place] [address] 102 [place] [address] Nurse Practitioner Nurse Practitioner 04/16/19 Micha Washington MD [address] [place] [address] Endocrinology 08/06/24 08/06/24 documented as of this encounter
--- OUTSIDE RECORDS SUMMARY | 2024-08-13 12:49 | XMS_ITS ---
Author Organization [facility] Address [address] [id number] Care Team Providers Care Director Of Media Name Role Phone Elijah Serra DO Primary Care Provider [phone] Nancy Trammell LPN Unavailable Unavailabl e Transitional Care Management Status:Active (Active) Start date:07/23/2024 Enrollment date:07/23/2024 Enrollment reason:Identified using hospital discharge data Overview This episode type is for outpatient care managers enrolling patients in the [facility] Transitional Care Management program. Case Team Name Relationship Phone Nancy Trammell LPN(Responsible Staff) TCM Nurs e Continued Care and Services Coordination
--- OUTSIDE RECORDS SUMMARY | 2024-08-13 12:49 | XMS_ITS | Encounter Summary ---
Author Organization [facility] Address [address] [place] [address] Support Name Relationship Address Phone Stepan Gold Personal Relationship [address] [place] [address] Mi Gold Personal Relationship Unknown Rosalind Mai Personal Relationship Unknown [phone] Vivi Ward Personal Relationship Unknown Care Team Providers Care Chief Controller Name Role Phone Yehuda Barger MD Primary Care Provider [phone] Provider, Historical Unavailable Unavailable Willi Templeton MD Unavailable María Andre MD Unavailable Selene Rodriguez SKIDDER OPERATOR Unavailable Mariah Flowers SKIDDER OPERATOR Unavailable Neyda Beltran MD Unavailable Ryanne Roblero MD Unavailable Unavailable Mi Martin SKIDDER OPERATOR Unavailable [phone] Elijah Serra DO Primary Care Provider Micha Washington MD Unavailable Encounter Details Date Type Department Care Team (Latest Contact Info) Description 07/25/2009 Transcribe Orders [facility] [address] [facility] [place] [address] Horacio Sherman MD [address] [place], [place] [phone] Coronary Atherosclerosis of Douglas Coronary Artery (Primary Dx) Social History Tobacco Use Types Packs/Day Years [...] Description 11/06/2024 11:00 AM EDT Office Visit [facility] [address] [place] [address], [facility] [place] , [address] [place] [phone] Micha Washington MD [address] [place] [address] [address] [place] [address] Molly Figueroa PA-C [address] [place] [phone] documented as of this encounter Visit Diagnoses Diagnosis Coronary atherosclerosis of [place] tribe coronary artery- Primary documented in this encounter Additional Health Concerns Infection Onset Date Last Indicated Resolved Time 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 02/24/2017 02/22/2017 02/22/2017 04/02/2024 9:[address] documented as of this encounter Care Teams Chief Controller Relationship Specialty Start Date End Date Yehuda Barger MD [address] [place] [address] 194 [facility] [place] [address] PCP - General 02/16/09 04/13/23 Elijah Serra DO 100 [place] [address] PCP - General Family Medicine 07/21/23 Provider, Historical 02/16/16 08/25/16 Willi Templeton MD [address] [place] [address] [address] [place] [address] Gastroenterology 02/25/16 María Andre MD 613 [facility] [address] [facility] [place] [address] Gastroenterology 03/08/16 Selene Rodriguez APRN [address] [place] [address] 203 [place] [address] Gastroenterology 08/23/16 Mariah Flowers APRN [address] [place] [address] 510 [place] [address] Nurse Practitioner 08/26/16 Neyda Beltran MD [address] [place] [address] [address] [facility] [place] [address] Nephrology 03/17/17 Ryanne Roblero MD [address] [place] [address] [address] [facility] [place] [address] Rheumatology 03/01/18 Mi Martin APRN [address] [place] [address] 102 [place] [phone] Nurse Practitioner Nurse Practitioner 04/16/19 Micha Washington MD [address] [place] [address] [address] [place] [address] Endocrinology 08/06/24 08/06/24 documented as of this encounter
--- OUTSIDE RECORDS SUMMARY | 2024-08-13 12:49 | XMS_ITS | Encounter Summary ---
Author Organization [facility] Address [address] [place] [address] Support Name Relationship Address Phone Stepan Gold Personal Relationship [address] [place] [address] Mi Gold Personal Relationship Unknown Rosalind Mai Personal Relationship Unknown + [phone] Vivi Ward Personal Relationship Unknown [phone] Care Team Providers Care Supervisor Record Press Name Role Phone Yehuda Barger MD Primary Care Provider [phone] Milton Crum DO Primary Care Provider Miky Benton MD Primary Care Provider [phone] Provider, Historical Unavailable Unavailable Willi Templeton MD Unavailable [phone] María Andre MD Unavailable [phone] Selene Rodriguez NEUROBIOLOGIST Unavailable Mariah Flowers NEUROBIOLOGIST Unavailable [phone] Neyda Beltran MD Unavailable [phone] Ryanne Roblero MD Unavailable Unavailable Mi Martin APRN Unavailable [phone] Elijah Serra DO Primary Care Provider [phone] Micha Washington MD Unavailable Encounter Details Date Type Department Care Team (Late st Contact Info) Description 10/25/2006 Historical Encounter [facility] Yehuda Barger MD [address] [place] [address] Social History Tobacco Use Types Packs/Day Years [...] Description 11/06/2024 11:00 AM EDT Office Visit [facility] Endocrinology [place] [address] [place], [facility] [place] [address], [address] [place] [address] Micha Washington MD [address] [place] [address] [place] [address] Molly Figueroa PA-C [address] [place] [address] [place] [address] documented as of this encounter Visit Diagnoses Not on filedocumented in this encounter Additional Health Concerns Infection Onset Date Last Indicated Resolved Time 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 02/24/2017 02/22/2017 02/22/2017 04/02/2024 9:[address] documented as of this encounter Care Teams Supervisor Record Press Relationship Specialty Start Date End Date Yehuda Barger MD [address] [place] [address] PCP - General 02/16/09 04/13/23 Milton Crum DO [address] [place] [address] PCP - General 01/08/09 02/15/09 Miky Louis MD [address] [place] [address] PCP - General 12/26/07 01/07/09 Elijah Serra DO 100 [place] [address] PCP - General Family Medicine 07/21/23 Provider, Historical 02/16/16 08/25/16 Willi Templeton MD [address] [facility] [address] [place] [address] Gastroenterology 02/25/16 María Andre MD [address] [place] [address] [address] [place] [address] Gastroenterology 03/08/16 Selene Rodriguez APRN [address] [place] [address] Gastroenterology 08/23/16 Mariah Flowers APRN [address] [place] [address] 510 [place] [address] Nurse Practitioner 08/26/16 Neyda Beltran MD [address] [address] [place] [address] Nephrology 03/17/17 Ryanne Roblero MD [address] [address] [place] [address] Rheumatology 03/01/18 Mi Martin APRN [address] [place] [address] [address] [place] [phone] Nurse Practitioner Nurse Practitioner 04/16/19 Micha Washington MD [address] [place] [address] [address] [place] [address] Endocrinology 08/06/24 08/06/24 documented as of this encounter
--- OUTSIDE RECORDS SUMMARY | 2024-08-13 12:49 | XMS_ITS | Encounter Summary ---
Author Organization [facility] ([place], [place], [place], [place]) Address [address] [place] [address] Care Team Providers Care Licensed Practical Nurse Instructor Name Role Phone Elijah Serra DO Primary Care Provider [phone] Encounter Details Date Type Department Care Team (Late st Contact Info) Description 07/18/2021 Transcribed Document [facility] Family Medicine [address] [place] [address] ProviderMichael MD [address] [place] [address] Social History Tobacco Use Types [...] Do you speak a language other than [place] at [facility]? No 09/05/2023 [...] Consult Phone Call Documentation Entered On: 07/18/2021 13:47 EDT Performed On: 07/18/2021 13:47 EDT by Dara Celis Emergency Room Housing Manager Phone Call for Consults Provider Service Notified Name : Cardiology Consult, Additional Information : Consult for in am Dara Celis Emergency Room Housing Manager - 07/18/2021 13:47 EDT Electronically signed by Florencia [facility] Conversion Rickshaw Driver Cerner at 05/25/2022 6:11 PM CDT documented in this encounter Plan of Treatment Not on file documented as of this encounter Visit Diagnoses Not on filedocumented in this encounter Care Teams Licensed Practical Nurse Instructor Relationship Specialty Start Date End Date Elijah Serra, DO 100 [facility] 1ST [place] [phone] PCP - General Family Medicine 03/11/23 documented as of this encounter
--- OUTSIDE RECORDS SUMMARY | 2024-08-13 12:49 | XMS_ITS | Encounter Summary ---
Author Organization [facility] Address [address] [place] [address] Support Name Relationship Address Phone Stepan Gold Personal Relationship [address] [facility] [place] [address] Mi Gold Personal Relationship Unknown [phone] Rosalind Mai Personal Relationship Unknown [phone] Vivi Ward Personal Relationship Unknown [phone] Care Team Providers Care Obstetrical Tech Name Role Phone Lesley Grace MD Primary Care Provider [phone] Provider, Historical Unavailable Unavailable Willi Templeton MD Unavailable María Andre MD Unavailable Selene Rodriguez [employer] Unavailable Mariah Flowers [employer] Unavailable Neyda Beltran MD Unavailable Ryanne Roblero MD Unavailable Unavailable Mi Martin [employer] Unavailable [phone] Elijah Serra DO Primary Care Provider Micha [place] MD Unavailable Reason for Visit * Reason Onset Date Comments Schedule Procedure 11/25/2015 Encounter Details Date Type Department Care Team (Late st Contact Info) Description 11/25/[address] LESLEY GRACE MD, [facility] [address] [facility] [address] [place] [address] Lesley Grace MD [address] [place] [address] [place] [address] Schedule Procedure Social History Tobacco Use Types Packs/Day Years [...] * Telephone Encounter - Lakeshia Norman - 11/25/2015 11:59 AM EDT Received call from Centralized Scheduling. You put in an order for CT Sinus--Limited. They do not do those @ [facility] says Centralized. Order needs to be put back in as CT Sinus without contrast. documented in this encounter Plan of Treatment Upcoming Encounters Date Type Department Care Team (Late st Contact Info) Description 11/06/2024 11:00 AM EDT Office Visit [facility] [address] [place] [address], [facility] [address], [address] [place], [place] [phone] Micha [place] MD [address] [place] [address] [place] [address] Molly Figueroa PA-C [address] [place] [address] documented as of this encounter Visit Diagnoses Not on filedocumented in this encounter Additional Health Concerns Infection Onset Date Last Indicated Resolved Time 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 02/24/2017 02/22/2017 02/22/2017 04/02/2024 9:[address] documented as of this encounter Care Teams Obstetrical Tech Relationship Specialty Start Date End Date Lesley Grace MD [address] [place] [address] [place] [address] PCP - General 02/16/09 04/13/23 Elijah Serra DO 100 [place] [address] PCP - General Family Medicine 07/21/23 Provider, Historical 02/16/16 08/25/16 Willi Templeton MD 613 [address] [address] [place] [address] Gastroenterology 02/25/16 María Andre MD 613 [address] [address] [place] [address] Gastroenterology 03/08/16 Selene Rodriguez APRN [address] [place] [address] Gastroenterology 08/23/16 Mariah Flowers APRN 61 23[facility] 510 [place] [address] Nurse Practitioner 08/26/16 Neyda Beltran MD 613 23[facility] [address] [place] [address] Nephrology 03/17/17 Ryanne Roblero MD 613 [address] [address] [place] [address] Rheumatology 03/01/18 Mi Martin APRN [address] [place] [phone] Nurse Practitioner Nurse Practitioner 04/16/19 Micha [place] MD [address] [place] [address] Endocrinology 08/06/24 08/06/24 documented as of this encounter
--- OUTSIDE RECORDS SUMMARY | 2024-08-13 12:49 | XMS_ITS | Encounter Summary ---
Author Organization [facility] Address [address] [place] [address] Support Name Relationship Address Phone Stepan Gold Personal Relationship [address] [facility] [place] [address] Mi Asif Personal Relationship Unknown Rosalind Mai Personal Relationship Unknown [phone] Vivi Ward Personal Relationship Unknown Care Team Providers Care Emergency Management Director Name Role Phone Lesley Grace MD Primary Care Provider Provider, Historical Unavailable Unavailable Willi Templeton MD Unavailable María Andre MD Unavailable Selene Rodriguez PERMIT AGENT Unavailable Mariah Flowers PERMIT AGENT Unavailable Neyda Beltran MD Unavailable Ryanne Roblero MD Unavailable Unavailable Mi Martin PERMIT AGENT Unavailable Elijah Serra DO Primary Care Provider Micha [place] MD Unavailable Reason for Visit * Reason Onset Date Comments Medications Refill 04/24/2015 Encounter Details Date Type Department Care Team (Late st Contact Info) Description 04/24/[address] LESLEY GRACE MD, [address] [place] [address] Lesley Grace MD [address] [place] [address] [address] [facility] [place] [address] Social History Tobacco Use Types Packs/Day Years [...] EDT Office Visit [facility] [address] [place] [address], [place] [phone] Micha [place] MD [address] [place] [address] Molly Figueroa PA-C [address] [place] [address] documented as of this encounter Visit Diagnoses Not on filedocumented in this encounter Additional Health Concerns Infection Onset Date Last Indicated Resolved Time 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 02/24/2017 02/22/2017 02/22/2017 04/02/2024 9:[address] documented as of this encounter Care Teams Emergency Management Director Relationship Specialty Start Date End Date Lesley Grace MD [address] [place] [address] [facility] [place] [address] PCP - General 02/16/09 04/13/23 Elijah Serra DO 100 [place] [address] PCP - General Family Medicine 07/21/23 Provider, Historical 02/16/16 08/25/16 Willi Temple[place] MD [address] [place] [address] Gastroenterology 02/25/16 María Andre MD [address] [place] [address] Gastroenterology 03/08/16 Selene Rodriguez APRN [address] [place] [address] [address] [place] [address] Gastroenterology 08/23/16 Mariah Flowers APRN [address] [place] [address] Nurse Practitioner 08/26/16 Neyda Beltran MD [address] [place] [address] Nephrology 03/17/17 Ryanne Roblero MD [address] [place] [address] Rheumatology 03/01/18 Mi Martin APRN [address] [place] [address] [address] [place] [address] Nurse Practitioner Nurse Practitioner 04/16/19 Micha [place] MD 613 23[facility] [address] [place], [place] [id number] Endocrinology 08/06/24 08/06/24 documented as of this encounter
--- OUTSIDE RECORDS SUMMARY | 2024-08-13 12:49 | XMS_ITS | Encounter Summary ---
Author Organization [facility] ([place], [place], [place], [place]) Address [address] [place] [address] Care Team Providers Care Custodian Manager Name Role Phone Elijah Serra DO Primary Care Provider [phone] Encounter Details Date Type Department Care Team (Late st Contact Info) Description 07/18/2021 Transcribed Document [facility] [place] Medicine [address] [place] [address] ProviderMichael MD [address] [place] [address] Social History Tobacco Use Types [...] Do you speak a language other than [place] at [facility]? No 09/05/2023 Do you want help with [...] Historical Provider, - 07/18/2021 10:35 AM CDT ED Assessment Entered On: 07/18/2021 15:31 EDT Performed On: 07/18/2021 14:35 EDT by MARCOS OLSEN RN ED Quick Look Assessment Level of Consciousness : Alert, Awake Affect/Behavior : Appropriate, Calm, Cooperative Orientation : Oriented x 4 Skin Temperature : Warm Skin Description : Normal for ethnicity MARCOS OLSEN RN - 07/18/2021 15:20 EDT ED General-Functional Assess Information Obtained From : Patient Communication Barrier : None Primary Language : [place]ian Any Spiritual/Cultural Needs or Requests : No Currently in Unsafe Situation : No MARCOS OLSEN RN - 07/18/2021 15:20 EDT Social Habits Smoking Status : Never (less than 100 in lifetime; none in last 30 days) Smokeless Tobacco Status : Never Desires Tobacco Cessation Calc : 0 MARCOS OLSEN RN - 07/18/2021 15:20 EDT Social History (As Of: 07/18/2021 15:31:55 EDT) Tobacco: Never (less than 100 in lifetime) Smoking Status. Never Smokeless Tobacco Status. (Last Updated: 08/18/2020 10:24:32 EDT by RAMON GRAMAJO, RN) Alcohol: Alcohol Use History No. (Last Updated: 08/18/2020 10:24:38 EDT by RAMON GRAMAJO, RN) Substance Abuse: Drug Use Hx: No. Use in Last 12 Months: No. (Last Updated: 08/18/2020 10:24:45 EDT by RAMON GRAMAJO, RN) Cardiovascular ASMT, ED Cardiovascular Assessment WDL : WDL with exceptions (Comment: PT states, my bottom number on my blood pressures has been in the 40. [MARCOS OLSEN RN - 07/18/2021 15:20 EDT] ) MARCOS OLSEN RN - 07/18/2021 15:20 EDT Respiratory Breath Sounds Auscultated : Posterior Respiratory Assessment WDL : WDL with exceptions (Comment: pt states, Mirta been having SOB. [MARCOS OLSEN RN - 07/18/2021 15:20 EDT] ) Cough : None, Able to clear secretions MARCOS OLSEN RN - 07/18/2021 15:20 EDT Breath Sounds Assessment Grid All Lobes Breath Sounds : Diminished MARCOS OLSEN RN - 07/18/2021 15:20 EDT Respiratory Pattern Description : Regular MARCOS OLSEN RN - 07/18/2021 15:20 EDT Electronically signed by Florencia [facility] Conversion Survey Research Analyst Cerner at 05/25/2022 6:06 PM CDT documented in this encounter Plan of Treatment Not on file documented as of this encounter Visit Diagnoses Not on filedocumented in this encounter Care Teams Custodian Manager Relationship Specialty Start Date End Date Elijah Serra, DO 100 [facility] [address]ST [place] [address] PCP - General Family Medicine 03/11/23 documented as of this encounter
--- OUTSIDE RECORDS SUMMARY | 2024-08-13 12:49 | XMS_ITS | Encounter Summary ---
Author Organization [facility] Address [address] [place] [address] Support Name Relationship Address Phone Stpean Gold Personal Relationship [address] [place] [address] Mi Gold Personal Relationship Unknown Rosalind Mai Personal Relationship Unknown Vivi Ward Personal Relationship Unknown [phone] Care Team Providers Care Collar Closer Lockstitch Name Role Phone Yehuda Barger MD Primary Care Provider [phone] Milton Crum DO Primary Care Provider Miky Benton MD Primary Care Provider [phone] Provider, Historical Unavailable Unavailable Willi Templeton MD Unavailable [phone] María Andre MD Unavailable [phone] Selene Rodriguez REGULATORY TECHNICIAN Unavailable Mariah Flowers REGULATORY TECHNICIAN Unavailable [phone] Neyda Beltran MD Unavailable [phone] Ryanne Roblero MD Unavailable Unavailable Mi Martin APRN Unavailable [phone] Elijah Serra DO Primary Care Provider [phone] Micha [place] MD Unavailable Encounter Details Date Type Department Care Team (Late st Contact Info) Description 05/20/2007 Historical Encounter Global Rosa Ambriz APRN [address] [place] [address] [place] [address] Social History Tobacco Use Types Packs/Day Years [...] 11:00 AM EDT Office Visit [facility] [address], [place] , [address] [place] [phone] Micha [place] MD 613 23[facility] [address] [place] [phone] Molly Figueroa PA-C [address] [place] [address] [place] [phone] documented as of this encounter Visit Diagnoses Not on filedocumented in this encounter Additional Health Concerns Infection Onset Date Last Indicated Resolved Time 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 02/24/2017 02/22/2017 02/22/2017 04/02/2024 9:[address] documented as of this encounter Care Teams Collar Closer Lockstitch Relationship Specialty Start Date End Date Yehuda Barger MD [address] [place] [address] [place] [address] PCP - General 02/16/09 04/13/23 Milton Crum DO [address] [place] [address] [place] [address] PCP - General 01/08/09 02/15/09 Miky Louis MD [address] [place] [address] PCP - General 12/26/07 01/07/09 Elijah Serra DO 100 [place] [address] PCP - General Family Medicine 07/21/23 Provider, Historical 02/16/16 08/25/16 Willi Templeton MD [address] [place] [address] [address] [place] [address] Gastroenterology 02/25/16 María Andre MD [address] [place] [address] [address] [place] [address] Gastroenterology 03/08/16 Selene Rodriguez APRN [address] [place] [address] 203 [place] [address] Gastroenterology 08/23/16 Mariah Flowers APRN [address] [place] [address] [address] [place] [address] Nurse Practitioner 08/26/16 Neyda Beltran MD [address] [place] [address] [address] [place] [address] Nephrology 03/17/17 Ryanne Roblero MD [address] [place] [address] [address] [place] [address] Rheumatology 03/01/18 Mi Martin APRN [address] [place] [address] [address] [place] [address] Nurse Practitioner Nurse Practitioner 04/16/19 Micha [place] MD [address] [place] [address] [address] [place] [address] Endocrinology 08/06/24 08/06/24 documented as of this encounter
--- OUTSIDE RECORDS SUMMARY | 2024-08-13 12:49 | XMS_ITS | Continuity of Care Document ---
Author Organization [facility] Address [address] [place] [address] Care Team Providers Care Manager Latin Name Role Phone EVANGELINA HOUSTON Primary Care Provider CINDY LABOY American History Teacher LESLEY GRACE Primary Care Provider GABRIELLA GAFFNEY Diamond Finishing Supervisor MICHELLE ANGEL Garment Supervisor Assessment No assessment recorded. Plan of Treatment [...] Not available Lab None recorded . Referral None recorded . Procedures None recorded . Surgeries None recorded . Imaging None recorded . Medication Orders doxycycl ine hyclate 100 mg capsule 2024 025 [id number], [address] [place], [id number], 07/05/2024 05:02:50 prometha zine-DM 6.25 mg-15 mg/5 mL oral syrup 2024 025 [facility]CIOUS [facility] #[id number], [address] [place], [phone], 07/05/2024 10:41:42 Patient TargetsNo targets recorded. Patient Instructions Encounter Date Encounter Id Patient Instructions Last Modified By Organization Details Last Modified Time 06/18/2024 [id number] pulse oximetry* MAX Not available 06/18/2024 14:13:24 Reason for Referral None Reported. Results Created Date Observation Date Name Description Value Unit Range Abnormal Flag Note LastModifiedBy Organization Detail LastModifiedTime 06/19/1906/18/2024 pulse oxime try* Result 93% Not Available [facility] [address] , [place], [address], 06/18/2024 13:41:20 07/06/1907/05/2024 CT, chest + abdom en + pelvi s, w/o contr ast [address] [place] [address] [phone] Patien t Name: OBDULIO SIU Isaac Patien t : 954 Patien t 67 [...] -appea ring 2.2 cm cyst from the tag stringer ior left kidney . Gallbl adder is [...] Roberto Jurado MD on 025 12:16 PM [email or web address] [facility] [address] [place] [address] , [place], [address], 07/05/2024 15:07:57 07/17/19 25 07/15/2024 elect rocar diogr am No observ ation record ed. [facility] [address], [place], [address], 07/19/2024 07:59:43 Result Notes None recorded. Problems Name Problem SNOMED Code Status Onset Date Resolution Date Notes Provider Name and Address Organization Details Recorded Time History of coronary artery bypass grafting [facility]68222681 [facility] 09:22:49 Type 1 diabetes mellitus 79748719 Active 2020 DPN EVANGELINA HOUSTON, DO [address] [place], [address] , [facility] 3 19:18:56 Erosive osteoarth rosis 786676292 Active 2020 hydroxych loroquine , cymbalta f/w Rheum EVANGELINA HOUSTON, DO [address] [place], [address] , [facility] 3 10:34:29 Coronary arteriosc lerosis 39395292 Active 2020 s/p CABG, St[facility] 08/18/2020 EVANGELINA HOUSTON, DO [address] [place], [address] , [facility] 2 10:07:28 Hypothyro idism 09080733 Active 2020 [facility] 4 09:22:49 Dyspnea on exertion 18066982 Active 2020 JASON BURGOS PA-C [address] [place], [address] , [facility] 1 12:35:15 Secondary gout 744825940 Active 2020 EVANGELINA HOUSTON, [address], [address] , [facility] 2 10:07:28 Hyperpara thyroidis m due to renal insuffici ency 70469612 Active 2020 NM parathyro id normal EVANGELINA TOSCANOON, [address], [address] , [facility] 3 20:47:44 Calcium pyrophosp hate depositio n disease 977877381 Active [address], [address] , [facility] 2 10:07:28 Supraspin atus tear 744087293 Active 2020 R, full thickness MRI 07/2020 EVANGELINA HOUSTON, [address], [address] , [facility] 1 16:39:26 Lumbar spondylol isthesis 65386554222 9102 Active 2020 f/w Dr Edgardo HOUSTON, [address], [address] , [facility] 2 10:07:28 History of calculus of kidney 378147029 Active 2020 EVANGELINA HOUSTON, [address], [address] , [facility] 2 10:07:28 Degenerat griffin disorder of macula 465658626 Active 2020 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 EVANGELINA HOUSTON, [address], [address] , [facility] 2 10:07:28 Esophagea l dysphagia 96782630 Active 2020 EGD 01/2021, dilated, recc 3y f/u EVANGELINA HOUSTON, DO [address] [place], [address] , [facility] 2 10:09:09 Minimal cognitive impairmen t 213776076 Active 2021 [place] [address] [place] [address], [address] , [facility] 2 10:09:05 Obstructi ve sleep apnea syndrome 07660676 Active 2021 [place] [address] [place] [address], [address] , [facility] 2 10:09:55 Chronic diastolic heart failure 974468161 Active 2021 EVANGELINA ROSEMARIE DO [address] [place] [address], [address] , [facility] 2 18:48:59 Chronic kidney disease stage 3A 519522667 Active 2022 EVANGELINA TOSCANOON DO [address] [place] [address], [address] , [facility] 3 10:20:26 Obesity 171975006 Active 2022 [facility] 4 09:22:49 Bronchiec tasis 75623934 Active 2022 EVANGELINA TOSCANOON [address], [address] , [facility] 3 11:01:46 Fecal incontine nce with fecal urgency 97670081974 9102 Active 2023 KP LIANG MD [address] [place] [address], [address] , [facility] 4 15:03:28 Atheroscl erosis of aorta 36336483 Active Not Available [employer] 4 10:12:08 Acquired thrombocy topenia 08606595 Active Not Available [employer] 4 10:12:26 Hypertens griffin disorder 49245318 Active 2023 EVANGELINA HOUSTON DO 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 Procedures Surgical History Date Name Laterality Status Provider Name and Address Organization Details Recorded Time 07/24/19 25 TCM completed [facility] 07/23/2024 10:04:38 05/22/19 25 Injection Joint/Bursa, Small, w/o US completed KENIA LEO, LAKESHIA [address] [place], [address], [facility] 05/21/2024 15:08:03 04/12/19 25 TCM completed [facility] 04/05/2024 13:12:55 02/16/19 25 Post Void Residual; Ultrasound completed Elizabeth Muñoz [facility] 02/17/2024 10:05:41 02/06/20 24 Injection Joint/Bursa, Small, w/o US completed KENIA LEO APRN [address] [place], [address], [facility] 02/06/2024 15:20:44 01/30/20 24 Destruction Premalignant Lesion(s) completed Renuka Sears [facility] 01/30/2024 10:19:17 01/17/20 24 Injection Joint/Bursa, Small, w/o US completed KENIA LEO APRN [address] [place], [address], [facility] 01/17/2024 13:32:56 10/21/19 24 Reclast Infusion completed Milton Zee [facility] 10/21/2023 12:29:17 09/21/19 24 TCM completed Sol Gann [facility] 09/17/2023 09:12:16 06/09/19 24 TCM completed Mo Guerra [facility] 06/02/2023 14:11:12 01/26/20 23 Destruction BN Lesions completed Lalita Coelho [facility] 01/25/2023 09:47:09 01/06/20 23 Spirometry completed Ester Juanis [facility] 01/05/2023 09:10:09 11/30/19 23 Injection Joint/Bursa, Small, w/o US completed KENIA LEO APRN [address] [place], [address], [facility] 11/29/2022 10:01:36 11/06/19 23 Airway Resistance completed Ester Juanis [facility] 11/05/2022 08:15:12 11/06/19 23 Diffusion Capacity completed Ester Juanis [facility] 11/05/2022 08:15:10 11/06/19 23 Lung Volumes, [facility]/05/2022 08:15:13 11/06/19 23 [facility]etry [facility]/05/2022 08:17:05 10/27/19 23 TCM completed Mo Guerra [facility] 10/26/2022 09:18:08 07/09/19 23 Stress Test - Nuclear Lexiscan completed GABRIELLA GAFFNEY MD [address] [place], [address], [facility] 07/08/2022 13:15:11 05/01/19 23 TCM completed JELANI VENEGAS PA-C [address] [place], [address], [facility] 04/29/2022 11:47:19 04/23/19 23 EKG completed GABRIELLA GAFFNEY MD [address] [place], [address], [facility] 04/22/2022 13:37:25 04/16/19 23 Injection Joint/Bursa, Small, w/o US completed KENIA LEO APRN [address] [place], [address], [facility] 04/15/2022 09:43:06 04/16/19 23 Injection Trigger Finger completed KENIA LEO APRN [address] [place], [address], [facility] 04/15/2022 09:43:33 03/30/19 23 colonoscopy completed Amita Crawford [facility] 03/31/2022 10:12:24 01/26/20 22 Destruction Premalignant Lesion(s) completed Lalita Coelho [facility] 01/25/2022 10:30:08 01/26/20 22 Shave Lesion; face, ear, eyelid, nose, lip, muc memb completed JOSE ANDERSON MD [address] [place], [address], [facility] 01/26/2022 17:32:59 12/22/19 22 TCM completed oM Guerra [facility] 12/10/2021 14:48:20 08/18/19 22 Injection Joint/Bursa, Small, w/o US completed KENIA LEO, LAKESHIA [address] [place], [address], [facility] 08/17/2021 08:38:09 06/24/19 22 EKG completed JASON BURGOS PA-C [address] [place], [address], [facility] 06/23/2021 11:14:58 06/04/19 22 arthroscopic debridement of knee joint completed Kun Jose [facility] 06/17/2021 14:29:32 11/08/19 21 Shave Lesion; trunk, arm, leg completed JOSE ANDERSON MD [address] [place], [address], [facility] 11/11/2020 17:50:29 11/08/19 21 Destruction Premalignant Lesion(s) completed Lalita Coelho [facility] 11/07/2020 13:50:19 11/04/19 21 Op Note completed TRISH MAYNARD MD [facility] [place], [address], [facility] 11/03/2020 09:48:35 08/19/19 21 catheterization of left heart completed Marybel Alvarado [facility] 09/01/2020 15:41:19 07/09/19 21 Stress Test - Nuclear Lexiscan completed JOHANA BARNEY MD [address] [place] [address], [address], [facility] 07/08/2020 15:17:35 06/26/19 21 Endoscopy Nasal; Diagnostic completed CINDY LABOY MD [address] [place] [address], [address], [facility] 06/25/2020 16:17:59 06/24/19 21 EKG completed JASON BURGOS PA-C [address] [place] [address], [address], [facility] 06/23/2020 12:34:26 02/07/19 18 Stent Placement completed EVANGELINA HOUSTON DO [facility] [place], [address], [facility] 07/01/2020 08:01:28 02/07/19 00 CABG completed Madyson Pinto [facility] 06/19/2020 10:53:23 repair of hip completed Madyson Pinto [facility] 06/19/2020 10:54:31 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 completed EVANGELINA HOUSTON DO [facility] [place], [address], [facility] 07/01/2020 08:01:49 Cataract Surgery completed Madyson Pinto [facility] 06/19/2020 11:48:18 removal of thyroid nodule completed EVANGELINA HOUSTON DO [address] [place], [address], [facility] 06/19/2020 12:50:12 cholecystectomy completed EVANGELINA HOUSTON, DO [address] [place], [address], [facility] 07/01/2020 08:00:48 Carpal tunnel surgery completed Corin Logan [facility] 11/11/2020 10:10:27 Imaging Results None recorded. Procedure Notes None recorded. Medical Equipment None Reported. Allergies Allergen ID Allergen Name Allergen Category Reaction Reaction Severity Criticality Documentation Date Start Date Code Code System Note Provider Name and Address Organization Details Recorded Time 830430 iodine medicatio n Not available Not available Not available 06/19/2020 5933 RxNorm Madysonestuardo Pinto [facility] 10:45:39 539059 adhesive tape environme nt,medica tion Not available Not available Not available 06/19/2020 90556 UNK Madyson Pinto [facility] 10:45:44 Medications Name Sig Start Date [...] completed Not Available Not Available Not Available [place] 10 mg-325 mg tablet Take 1 tablet [...] Not Available Not Available Vitals Date Recorded Oxygen saturation Oxygen saturation in Arterial blood by Pulse oximetry Provider Name and Address Organization Details Last Updated DateTime 06/18/2024 93 % 93 % FERNNADA CRUZ PA-C [address] [place] [address], [address], [facility] 06/18/2024 13:40:44 Date Recorded Body height Body temperature Heart rate Systolic And Diastolic Provider Name and Address Organization Details Last Updated DateTime 06/18/2024 175.26 cm 98 [degF] 83 /min 117/70 mm[Hg] Keyla Queen [facility] 06/18/2024 13:31:49 Social History Question Answer Notes LastModified by Organizat ion Details LastModified Time Tobacco Smoking Status Former Smoker Susan thompson, [facility] 10/23/2020 08:53:41 What Is Your Level Of Caffeine Consumption? Moderate [email or web address] Information not available 06/19/2020 What Type Of Diet Are You Following? REGULAR [email or web address] Information not available 06/19/2020 Education 2 Year College [email or web address] Information not available 06/19/2020 When Did You Quit Smoking? 16+yearssince lastcitravis Information not available 07/15/2022 Live Alone Or With Others? With Others [email or web address] Information not available 06/19/2020 Marital Status [email or web address] Informatio n not available 06/19/2020 What Was The Date Of Your Most Recent Tobacco Screening? 05/23/2024 [email or web address] Information not available 05/23/2024 How Many Children Do You Have? 5 [email or web address] Information not available 06/19/2020 What Is Your Relationship Status? [email or web address] Information not available 10/03/2020 Are You Sexually Active? No Information not available 06/19/2020 At What Age Did You Start Smoking Tobacco? 18 [email or web address] Information not available 11/05/2022 How Much Tobacco Do You Smoke? No [email or web address] Information not available 07/17/2020 Has Tobacco Cessation Counseling Been Provided? No [email or web address] Information not available 10/03/2020 How Many Years Have You Smoked Tobacco? 0 [email or web address] Information not available 07/17/2020 Sex: Male Functional Status Question Answer Note LastModified by Organizat ion Details LastModified Time Do you use any illicit or recreational drugs? No [email or web address] Information not available 10/03/2020 Do you or have you ever used any other forms of tobacco or nicotine? No [email or web address] Information not available 10/03/2020 What is your level of alcohol consumption? None [email or web address] Information not available 06/19/2020 Do you or have you ever used smokeless tobacco? Never used smokeless tobacco [email or web address] Information not available 07/17/2020 Are you currently employed? No [email or web address] Information not available 06/30/2023 Are you able to care for yourself? 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 Never used electronic cigarettes [email or web address] Information not available 07/17/2020 What is your exercise level? None [email or web address] Information not available 06/19/2020 Mental Status None recorded. Family History Relationship Description Onset Age of this Age Resolved Age Notes LastModified by Organization Details LastModified Time Mother Blood coagulation disorder [email or web address] Not available 2020 11:46:13 Mother Myocardial infarction [email or web address] Not available 06/19 11:46:44 Mother Cerebrovascu lar accident [email or web address] Not available 11:46:56 Mother Disorder of thyroid gland [email or web address] Not available 2020 11:47:03 Mother Complication of anesthesia [email or web address] Not available 02/05 13:08:57 Mother Heart disease [email or web address] Not available 2021 13:09:17 Mother Hypertensive disorder [email or web address] Not available 2021 13:09:28 Mother Diabetes mellitus [email or web address] Not available 2021 13:09:45 Brother Malignant melanoma [email or web address] Not available 2020 11:46:32 Brother Myocardial infarction [email or web address] Not available 06/19 11:46:48 Brother Disorder of [...] Blood Transfusion Y Emphysema N COPD N Hypothyroidism Y Lung Disease Y Depression N Pneumonia Y Breast Problem N Difficulty Swallowing Y Anesthesia Complications N Meniere's disease N Anxiety Disorder Y Muscle, Joint, or Bone [...] N Thyroid Problems Y GI Problems N Skin Problems N Eating Disorder N Anemia Y Constipation Y Mental Illness N Diabetes Y Ovarian Cancer N Bleeding Disorder Y Seizures/Epilepsy N Tuberculosis N Eczema N Diverticulitis Y Asthma N Reflux/GERD Y Sleep Apnea Y GERD/Reflux Y Hepatitis N Heart Disease Y Pulmonary Embolism N Chronic Ear Infections Y Hypertension Y Pre-Eclampsia N Chicken Pox N Osteoporosis Y Thrombophilias N Immunizations Vaccine Type Date Status Note Provider Nam e and Address Organization Details Recorded Time Influenza, high-dose, quadrivalent, PF 1 completed Madyson thompson, [facility] 12/19/2020 10:31:45 Influenza, high-dose, quadrivalent, PF 2 completed EVANGELINA HOUSTON DO [address] [place] [address], [address], [facility] 12/21/2021 14:25:14 Influenza, high-dose, quadrivalent, PF 3 completed EVANGELINA HOUSTON DO [address] [place] [address], [address], [facility] 12/01/2022 15:39:31 COVID-19 vaccine, vector-nr, rS-ChAdOx1, PF, 0.5 mL 1 completed Not Available [facility] 03/08/2023 14:48:10 COVID-19 vaccine, vector-nr, rS-ChAdOx1, PF, 0.5 mL 1 completed Not Available [facility] 03/08/2023 14:48:10 COVID-19, mRNA, LNP-S, PF, 50 mcg/0.5 mL 3 completed EVANGELINA HOUSTON DO [address] [place] [address], [address], [facility] 01/24/2023 09:42:50 RSV, recombinant, protein subunit RSVpreF, adjuvant reconstituted, 0.5 mL, PF 3 completed EVANGELINA HOUSTON DO [address] [place] [address], [address], [facility] 01/24/2023 09:42:50 COVID-19, mRNA, LNP-S, PF, 30 mcg/0.3 mL dose 1 [facility]30[facility] 12:55:14 Influenza, high-dose, trivalent, PF 4 completed EVANGELINA HOUSTON DO [address] [place] [address], [address], [facility] 01/26/2024 10:51:52 COVID-19, mRNA, LNP-S, PF, 50 mcg/0.5 mL 4 completed EVANGELINA HOUSTON DO [address] [place] [address], [address], [facility] 01/26/2024 10:51:52 zoster recombinant 2 [facility] 04/30/2022 12:55:13 zoster recombinant 2 [facility] 04/30/2022 12:55:14 Influenza, adjuvanted, quadrivalent, PF 0 completed [facility] 04/30/2022 12:55:14 COVID-19, mRNA, LNP-S, PF, 30 mcg/0.3 mL dose 1 completed [facility] 04/30/2022 12:55:14 COVID-19, mRNA, LNP-S, PF, 30 mcg/0.3 mL dose 1 completed [facility] 04/30/2022 12:55:14 Tdap 0 completed [facility] 04/30/2022 12:55:14 influenza, seasonal, intradermal, preservative free 9 completed [facility] 04/30/2022 12:55:14 influenza, seasonal, intradermal, preservative free 8 completed [facility] 04/30/2022 12:55:14 Past Encounters Encounter ID Performer Location Encounter Start Date Encounter Closed Date Diagnosis/Indication Diagnosis SNOMED-CT Code Diagnosis ICD10 Code Diagnosis Note [id number] KENIA LEO APRN [facility] [address] [place] [address] 05/21/2024 14:35:13 05/22/2024 15:37:25 Tailor's bunion of right foot [id number] 609587 M21.621 with severe bone pain, stiffness; deformityn o need for injections today Erosive osteoarthrosis 506806328 M15.4 maintain hydrOXYchl oroQUINE 200 mg tablet [...] twice daily Calcium py rophosphate deposition disease 345784726 M11.80 per xrays Gout 71228765 M10.9 long history of gout as well as pseudogout will have him maintain allopurino l 300 mg daily Fibromyalgia M 79.7 chronic myofascial painlikely secondary to the erosive osteoarthr itis Pain of bi lateral hands 0871136085 5147778 M79.641 M79.642 Sees [facility] Orthopedic swith h/o ulnar deviationh istory of injections would like to discuss further todaywith injections provided into ia joints in mireille hands today Long-term drug therapy 579044310 Z79.899 Chronic low back pain 27 5850497 M54.50 with severe degenerati on of the l3, l4 and l5/s1 vertebraew ith decreased disc and neural openingscu rrently taking stronger pain medication and is going to have rfi done Pathological fracture 26 2984286 M84.40XA next dexa due 08/26/2025 or after Body mass index 30+ - obesity 932015731 Z68.31 [id number] XAVIER ISABEL MD [facility] [address] [place] [address] 05/23/2024 11:32:45 05/23/2024 16:10:50 Benign prostatic hyperplasia with outflow obstruction 410004393 N40.1 N13.8 Nocturia 177724180 R35.1 [id number] FERNANDA CRUZ PA-C [facility] [address] [place] [address] 5 06/18/2024 13:28:50 06/18/2024 14:23:40 Acute cough 8253536280 36355063 R05.1 has become productive . see tx plan below. O2 sat a bit low at 93%. Acute bact erial bronchitis 888619860 J20.8 B96.89 start doxy and mucinex as directed. promethazi ne DM for cough. he was advised this causes drowsiness . continue neb tx as needed. He declines an oral steroid today. Supportive tx measures discussed. re eval if not improving in 4-5 days or if worsens. Health Concerns Section Related Observation LastModified by Organization Detai ls LastModified Time None Recorded Concern Status LastModified by Organization Details LastModified Time None Recorded Payers Encounter Date Sequence Insurance Name Policy Number Policy Coleman Covered Member ID Coleman Member ID Guarantor Name 06/18/2024 1 [place] [employer] [id number] [employer] 06/18/2024 2 [employer] (MEDICARE SUPPLEMENT) [employer] [id number] [employer] Notes Date Note Type Note Provider Name and Address Organization Details Recorded Time 06/18/2024 text/html Patient presents with hacking cough [...] not had antibiotics recently. FERNANDA CRUZ PA-C [address] [place] [address], [address], [facility] 06/18/2024 14:00:54
--- OUTSIDE RECORDS SUMMARY | 2024-08-13 12:49 | XMS_ITS | Encounter Summary ---
Author Organization [facility] Address [address] [place] [address] Support Name Relationship Address Phone Stepan Gold Personal Relationship [address] [facility] [address] Mi Asif Personal Relationship Unknown [phone] Rosalind Andersonill Personal Relationship Unknown [phone] Vivi Ward Personal Relationship Unknown [phone] Care Team Providers Care Foreign Student Adviser Teacher Name Role Phone Lesley Grace MD Primary Care Provider [phone] Willi Templeton MD Unavailable María Andre MD Unavailable [phone] Selene Rodriguez NEW PATIENT ESCORT Unavailable Mariah Flowers NEW PATIENT ESCORT Unavailable Neyda Beltran MD Unavailable Ryanne Roblero MD Unavailable Unavailable Mi Martin NEW PATIENT ESCORT Unavailable [phone] Elijah Serra DO Primary Care Provider Micha Washington MD Unavailable Reason for Visit * Reason Onset Date Comments Medications Refill 10/31/2017 Encounter Details Date Type Department Care Team (Late st Contact Info) Description 10/31/[address] LESLEY GRACE MD, [facility] [address] [place] [phone] Lesley Grace MD [address] [place] [address] [place] [address] Social History Tobacco Use Types Packs/Day Years [...] Description 11/06/2024 11:00 AM EDT Office Visit [facility] [address] [place] [address], [facility] [address] [place], [place] [address] Micha Washington MD [address] [place] [address] Molly Figueroa PA-C [address] [place] [address] [place] [address] documented as of this encounter Visit Diagnoses Not on filedocumented in this encounter Additional Health Concerns Infection Onset Date Last Indicated Resolved Time 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 02/24/2017 02/22/2017 02/22/2017 04/02/2024 9:[address] documented as of this encounter Care Teams Foreign Student Adviser Teacher Relationship Specialty Start Date End Date Lesley Grace MD [address] [place] [address] B [place] [address] PCP - General 02/16/09 04/13/23 Elijah Serra DO 100 [place] [address] PCP - General Family Medicine 07/21/23 Willi Templeton MD [address] [place] [address] 430 [place] [address] Gastroenterology 02/25/16 María Andre MD [address] [place] [address] 430 [place] [address] Gastroenterology 03/08/16 Selene Rodriguez APRN [address] [place] [address] 203 [place] [address] Gastroenterology 08/23/16 Mariah Flowers APRN [address] [place] [address] 510 [place] [address] Nurse Practitioner 08/26/16 Neyda Beltran MD [address] [place] [address] [address] [facility] [place] [address] Nephrology 03/17/17 Ryanne Roblero MD [address] [place] [address] [address] [facility] [place] [address] Rheumatology 03/01/18 Mi Martin APRN [address] [place] [address] 102 [place] [address] Nurse Practitioner Nurse Practitioner 04/16/19 Micha Washington MD [address] [place] [address] [address] [place] [address] Endocrinology 08/06/24 08/06/24 documented as of this encounter
--- OUTSIDE RECORDS SUMMARY | 2024-08-13 12:49 | XMS_ITS | Encounter Summary ---
Author Organization [facility] Address [address] [place] [address] Support Name Relationship Address Phone Stepan Gold Personal Relationship [address] [place] [address] Mi Gold Personal Relationship Unknown Rosalind Mai Personal Relationship Unknown + [phone] Vivi Ward Personal Relationship Unknown [phone] Care Team Providers Care Metal Tile Lather Name Role Phone Yehuda Barger MD Primary Care Provider [phone] Milton Crum DO Primary Care Provider Miky Benton MD Primary Care Provider [phone] Provider, Historical Unavailable Unavailable Willi Templeton MD Unavailable [phone] María Andre MD Unavailable [phone] Selene Rodriguez SPECIAL NEEDS TEACHER Unavailable Mariah Flowers SPECIAL NEEDS TEACHER Unavailable [phone] Neyda Beltran MD Unavailable [phone] Ryanne Roblero MD Unavailable Unavailable Mi Martin APRN Unavailable [phone] Elijah Serra DO Primary Care Provider [phone] Micha Washington MD Unavailable Encounter Details Date Type Department Care Team (Late st Contact Info) Description 05/04/2007 Historical Encounter Global Yehuda Barger MD [address] [place] [address] Social History Tobacco Use Types Packs/Day Years [...] Description 11/06/2024 11:00 AM EDT Office Visit [facility] Endocrinology [place] [address] [place], [facility], [address] [place] [address] Micha Washington MD [address] [place] [address] [place] [address] Molly Figueroa PA-C [address] [place] [address] [place] [address] documented as of this encounter Visit Diagnoses Not on filedocumented in this encounter Additional Health Concerns Infection Onset Date Last Indicated Resolved Time 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 02/24/2017 02/22/2017 02/22/2017 04/02/2024 9:[address] documented as of this encounter Care Teams Metal Tile Lather Relationship Specialty Start Date End Date Yehuda Barger MD [address] [place] [address] PCP - General 02/16/09 04/13/23 Milton Crum DO [address] [place] [address] PCP - General 01/08/09 02/15/09 Miky Louis MD [address] [place] [address] PCP - General 12/26/07 01/07/09 Elijah Serra DO 100 [place] [address] PCP - General Family Medicine 07/21/23 Provider, Historical 02/16/16 08/25/16 Willi Templeton MD [address] [facility] [address] [place] [address] Gastroenterology 02/25/16 María Andre MD [address] [place] [address] [address] [place] [address] Gastroenterology 03/08/16 Selene Rodriguez APRN [address] [place] [address] Gastroenterology 08/23/16 Mariah Flowers APRN [address] [place] [address] 510 [place] [address] Nurse Practitioner 08/26/16 Neyda Beltran MD [address] [address] [place] [address] Nephrology 03/17/17 Ryanne Roblero MD [address] [address] [place] [address] Rheumatology 03/01/18 Mi Martin APRN [address] [place] [address] [address] [place] [address] Nurse Practitioner Nurse Practitioner 04/16/19 Micha Washington MD [address] [place] [address] [address] [place] [address] Endocrinology 08/06/24 08/06/24 documented as of this encounter
--- OUTSIDE RECORDS SUMMARY | 2024-08-13 12:49 | XMS_ITS | Encounter Summary ---
Author Organization [facility] Address [address] [place] [address] Support Name Relationship Address Phone Stepan Gold Personal Relationship [address] [place] [address] Mi Gold Personal Relationship Unknown Rosalind Mai Personal Relationship Unknown + [phone] Vivi Ward Personal Relationship Unknown [phone] Care Team Providers Care Barista Name Role Phone Yehuda Barger MD Primary Care Provider [phone] Milton Crum DO Primary Care Provider Miky Benton MD Primary Care Provider [phone] Provider, Historical Unavailable Unavailable Willi Templeton MD Unavailable [phone] María Andre MD Unavailable [phone] Selene Rodriguez NURSE RESEARCHER Unavailable [phone] Mariah Flowers NURSE RESEARCHER Unavailable [phone] Neyda Beltran MD Unavailable [phone] Ryanne Roblero MD Unavailable Unavailable Mi Martin APRN Unavailable [phone] Elijah Serra DO Primary Care Provider [phone] Micha Washington MD Unavailable Encounter Details Date Type Department Care Team (Late st Contact Info) Description 06/19/2007 Historical Encounter Global James Connolly MD [facility] [address] [place] [address] Social History Tobacco Use Types Packs/Day Years [...] Description 11/06/2024 11:00 AM EDT Office Visit [facility] [place], [facility] [place] [facility], [address] [place] [address] Micha Washington MD [address] [place] [address] [place] [phone] Molly Figueroa PA-C [address] [place] [address] [place] [phone] documented as of this encounter Visit Diagnoses Not on filedocumented in this encounter Additional Health Concerns Infection Onset Date Last Indicated Resolved Time 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 02/24/2017 02/22/2017 02/22/2017 04/02/2024 9:[address] documented as of this encounter Care Teams Barista Relationship Specialty Start Date End Date Yehuda Barger MD [address] [place] [address] [address] [facility] [place] [address] PCP - General 02/16/09 04/13/23 Milton Crum DO [address] [place] [address] [place] [address] PCP - General 01/08/09 02/15/09 Miky Louis MD [address] [place] [address] PCP - General 12/26/07 01/07/09 Elijah Serra DO 100 [place] [address] PCP - General Family Medicine 07/21/23 Provider, Historical 02/16/16 08/25/16 Willi Templeton MD [address] [place] [address] Gastroenterology 02/25/16 María Andre MD [address] [place] [address] [address] [place] [address] Gastroenterology 03/08/16 Selene Rodriguez APRN [address] [place] [address] 203 [place], [place] [address] Gastroenterology 08/23/16 Mariah Flowers APRN [address] [place] [address] [address] [place] [address] Nurse Practitioner 08/26/16 Neyda Beltran MD [address] [place] [address] [address] [place] [address] Nephrology 03/17/17 Ryanne Roblero MD [address] [address] [place] [address] Rheumatology 03/01/18 Mi Martin APRN [address] [place] [address] 102 [place] [address] Nurse Practitioner Nurse Practitioner 04/16/19 Micha Washington MD [address] [place] [address] [place], [place] [address] Endocrinology 08/06/24 08/06/24 documented as of this encounter
--- OUTSIDE RECORDS SUMMARY | 2024-08-13 12:49 | XMS_ITS | Encounter Summary ---
Author Organization [facility] ([place], [place], [place], [place]) Address [address] [place] [address] Care Team Providers Care Drop Forger Helper Name Role Phone Elijah Serra DO Primary Care Provider [phone] Encounter Details Date Type Department Care Team (Late st Contact Info) Description 07/18/[address] [facility] Family Medicine [address] [place] [address] ProviderMichael MD [address] [place] [address] Social History Tobacco Use Types [...] Do you speak a language other than [place] [facility]? No 09/05/2023 Do you [...] Provider, - 07/18/2021 1:32 PM CDT Evaluation, Physical Therapy Entered On: 07/20/2021 16:01 EDT Performed On: 07/20/2021 13:57 EDT by MATTHEW ASHRAF, PT Student General Information, PT Visit Type, PT : Initial evaluation Patient Orders : Order Date Order Ordering MD 07/18/2021 13:32 PT Evaluation and Treatment Ordered By: SKIP ROBLES MD-INT Active Diagnoses : 07/18/2021 12:00 Acute kidney failure, unspecified 07/18/2021 12:00 Dizziness and giddiness 07/18/2021 12:00 Dyspnea, unspecified 07/18/2021 12:00 Edema, unspecified 07/18/2021 12:00 Hyperglycemia, unspecified 07/18/2021 12:00 Laceration without foreign body of unspecified upper arm, initial encounter 07/18/2021 12:00 Pneumonia, unspecified organism 07/18/2021 12:00 Unspecified fall, initial encounter 07/18/2021 12:00 Weakness Therapy Diagnosis, PT : Balance deficits Onset of Problem, PT : 07/18/2021 EDT Admission Date : 07/18/2021 13:28 Co-treated by, PT : Occupational Therapist Assisted by, PT : Physical Therapist Personal Devices : Personal Devices No Devices Recorded Assistive Devices : Assistive Devices No Devices Recorded MATTHEW ASHRAF, PT Student - 07/20/2021 15:47 EDT General Information Comment, PT : Dx: CHF and severe hypoglycemia; fall Hx: DM II, CAD w/ previous CABG, HTN, RA, retinopathy IRENE MCKENNA, PT - 07/20/2021 16:12 EDT General Status Patient Received Status : Up in chair Treatment Start Time : 07/20/2021 13:45 EDT Patient Left Status : Up in chair, Communication board completed, All needs met and within reach Treatment End Time : 07/20/2021 13:57 EDT Treatment Time : 12 Minute(s) Actual Treatment Time : 12 Minute(s) MATTHEW ASHRAF PT Student - 07/20/2021 15:47 EDT History and Environment Living Situation, Therapy : Home Patient Lives With : Spouse Persons Assisting Patient at Home : Spouse Persons Providing Information : Patient Home Setup : One story Stairs : Yes Stair Location(s) : Outside Outside Stairs, Number of Steps : 8 Railing Outside : Yes MATTHEW ASHRAF PT Student - 07/20/2021 15:47 EDT Prior Level of Function PT GRID Prior LOF Ambulation, Household : Independent Prior LOF Ambulation, Community : Independent Prior LOF Bed Mobility : Independent Prior LOF Toileting : Independent Prior LOF Transfer : Independent MATTHEW ASHRAF PT Student - 07/20/2021 15:47 EDT Upper Extremity Right UE Active ROM : WFL Right UE Strength : WFL Left UE Active ROM : WFL Left UE Strength : WFL Right UE Strength : WFL Left UE Strength : WFL MATTHEW ASHRAF PT Student - 07/20/2021 15:47 EDT Lower Extremity RLE Active ROM : [facility] Right LE Strength : [facility] LLE Active ROM : [facility] Left LE Strength : WFL MATTHEW ASHRAF PT Student - 07/20/2021 15:47 EDT Functional Mobility Mobility Grid Sit to Stand : Rehab Complete independence Stand to Sit : Rehab Complete independence MATTHEW ASHRAF PT Student - 07/20/2021 15:47 EDT Gait Training/Assessment, PT Weight Bearing Status : Full Gait Assistance Level : Assist, minimal Walking Distance : 300ft Ambulatory Devices : Gait belt Gait Deviations : Yes Gait Training Comment : Pt bumped into objects and experienced LOB which required mod A to correct from OT with gait belt. MATTHEW ASHRAF PT Student - 07/20/2021 15:47 EDT Cognition Assessment, PT Orientation : Oriented x 4 Safety/Judgment Comment : Intact Follows Basic Command Assessment : Intact Attention Assessment : Present Attention Assessment Comment : Alert MATTHEW ASHRAF PT Student - 07/20/2021 15:47 EDT Edu Topics Physical Therapy Education Grid Balance Training : Returns demonstration, Needs further teaching Gait Training : Returns demonstration, Needs further teaching Role of Physical Therapy : Returns demonstration Stair Training : Returns demonstration, Needs further teaching Use of Assistive Device : Needs further teaching MATTHEW ASHRAF PT Student - 07/20/2021 15:47 EDT Indication Assesessment, PT Physical Therapy Indicated : Yes PT Problem List : Impaired, coordination/proprioception, Impaired, endurance tolerance, Impaired, gait, Impaired, stair mobility, Impaired, standing balance, Impaired, strength, Impaired, transfers Potential Barriers To Therapy : None evident Rehabilitation Potential : Good MATTHEW ASHRAF PT Student - 07/20/2021 15:47 EDT Plan of Care, PT PT Tx Plan/Goals Established w Patient : Yes MATTHEW ASHRAF PT Student - 07/20/2021 15:47 EDT PT Frequency Rehab : Five days per week IRENE MCKENNA, PT - 07/20/2021 16:12 EDT PT Duration Rehab : Fourteen days PT Treatments Planned : Balance training, Bed mobility training, Caregiver training, Gait training, Safety education, Stair training, Therapeutic exercises, Transfer training MATTHEW ASHRAF PT Student - 07/20/2021 15:47 EDT Short Term Goals Ambulation STG Grid Goal #1 Device : Belt, gait Distance : 200 Assist : Supervision or set-up Date to Meet : 07/27/2021 EDT Goal Status : Intial Goal MATTHEW ASHRAF PT Student - 07/20/2021 15:47 EDT Stairs STG Grid Goal #1 Device : Belt, gait Number of Steps : 8 Assist : Supervision or set-up Date to Meet : 07/27/2021 EDT Goal Status : Initial goal MATTHEW ASHRAF PT Student - 07/20/2021 15:47 EDT [employer] Goals Ambulation LTG Grid Goal #1 Device : None Distance : 300 Assist : Independent, complete Date to Meet : 08/03/2021 EDT Goal Status : Intial Goal MATTHEW ASHRAF PT Student - 07/20/2021 15:47 EDT Stairs LTG Grid Goal #1 Device : None Number of Steps : 8 Handrail(s) : No handrails Assist : Independent, complete Date to Meet : 08/03/2021 EDT Goal Status : Intial Goal MATTHEW ASHRAF PT Student - 07/20/2021 15:47 EDT Treatment Note Subjective Comment : Patient is agreeable to therapy today. Assessment : Patient displayed significant balance deficits while ambulating, making contact with objects in the hallway and experiencing LOB which required mod A to correct. Patient was educated on safety with gait when returning home through the use of assistive devices to prevent falls. Patient did not display any noticeable weaknesses or fatigue with ambulation. Patient would benefit from skilled therapy to improve balance and gait. MATTHEW ASHRAF PT Student - 07/20/2021 15:47 EDT Plan for Treatment : Plan of care to include therapeutic exercises, gait training, and balance training. PT has reviewed and agrees. IRENE MCKENNA PT - 07/20/2021 16:12 EDT Pain Assessment Pain Comment : Patient does not report any pain today. MATTHEW ASHRAF PT Student - 07/20/2021 15:47 EDT Image 1 - Images currently included in the form version of this document have not been included in the text rendition version of the form. Anticipated Discharge Needs, OT/PT Anticipated Discharge to : Home, independently, Outpatient rehabilitation Anticipated Home Equipment : Cane Recommend Continued Therapy at Discharge : Yes Cane : Cane, single point MATTHEW ASHRAF PT Student - 07/20/2021 15:[address] [facility] PT Eval Low Complexity : 1 MATTHEW ASHRAF PT Student - 07/20/2021 15:47 EDT documented in this encounter Plan of Treatment Not on file documented as of this encounter Visit Diagnoses Not on filedocumented in this encounter Care Teams Drop Forger Helper Relationship Specialty Start Date End Date Elijah Serra, DO [address] [facility] 1ST [place] [address] PCP - General Family Medicine 03/11/23 documented as of this encounter
--- OUTSIDE RECORDS SUMMARY | 2024-08-13 12:49 | XMS_ITS | Encounter Summary ---
Author Organization [facility] Address [address] [place] [address] Support Name Relationship Address Phone Stepan Gold Personal Relationship [address] [facility] [place] [address] Mi Asif Personal Relationship Unknown Rosalind Mai Personal Relationship Unknown [phone] Vivi Ward Personal Relationship Unknown [phone] Care Team Providers Care Road Freight Brake Coupler Name Role Phone Lesley Grace MD Primary Care Provider [phone] Willi Templeton MD Unavailable María Andre MD Unavailable [phone] Selene Rodriguez IN HOME BABY SITTER Unavailable Mariah Flowers IN HOME BABY SITTER Unavailable Neyda Beltran MD Unavailable Ryanne Roblero MD Unavailable Unavailable Mi Martin IN HOME BABY SITTER Unavailable [phone] Elijah Serra DO Primary Care Provider Micha Washington MD Unavailable Reason for Visit * Reason Onset Date Comments Medications Refill 12/09/2017 Encounter Details Date Type Department Care Team (Late st Contact Info) Description 12/09/[address] LESLEY GRACE MD, [facility] [address] [facility] [address] [place] [address] Lesley Grace MD [address] [place] [address] [place] [address] Social History Tobacco Use Types Packs/Day Years [...] Description 11/06/2024 11:00 AM EDT Office Visit [facility] [address] [place] [address], [facility] [address] [place], [place] [address] Micha Washington MD [address] [place] [address] Molly Figueroa PA-C [address] [place] [address] [place] [address] documented as of this encounter Visit Diagnoses Not on filedocumented in this encounter Additional Health Concerns Infection Onset Date Last Indicated Resolved Time 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 02/24/2017 02/22/2017 02/22/2017 04/02/2024 9:[address] documented as of this encounter Care Teams Road Freight Brake Coupler Relationship Specialty Start Date End Date Lesley Grace MD [address] [place] [address] B [place] [address] PCP - General 02/16/09 04/13/23 Elijah Serra DO 100 [place] [address] PCP - General Family Medicine 07/21/23 Willi Templeton MD [address] [place] [address] 430 [place] [address] Gastroenterology 02/25/16 María Andre MD [address] [place] [address] 430 [place] [address] Gastroenterology 03/08/16 Selene Rodriguez APRN [address] [place] [address] 203 [place] [address] Gastroenterology 08/23/16 Mariah Flowers APRN [address] [place] [address] 510 [place] [address] Nurse Practitioner 08/26/16 Neyda Beltran MD [address] [place] [address] [address] [facility] [place] [address] Nephrology 03/17/17 Ryanne Roblero MD [address] [place] [address] [address] [facility] [place] [address] Rheumatology 03/01/18 Mi Martin APRN [address] [place] [address] 102 [place] [address] Nurse Practitioner Nurse Practitioner 04/16/19 Micha Washington MD [address] [place] [address] [address] [place] [address] Endocrinology 08/06/24 08/06/24 documented as of this encounter
--- OUTSIDE RECORDS SUMMARY | 2024-08-13 12:49 | XMS_ITS | Encounter Summary ---
Author Organization [facility] Address [address] [place] [address] Support Name Relationship Address Phone Stepan Gold Personal Relationship [address] [place] [address] Mi Gold Personal Relationship Unknown [phone] Rosalind Mai Personal Relationship Unknown [phone] Vivi Ward Personal Relationship Unknown Care Team Providers Care 411 Directory Assistance Operator Name Role Phone Lesley Grace MD Primary Care Provider Willi Templeton MD Unavailable María Andre MD Unavailable Selene Rodriguez SPINNING SUPERVISOR Unavailable Mariah Flowers SPINNING SUPERVISOR Unavailable Neyda Beltran MD Unavailable Ryanne Roblero MD Unavailable Unavailable Mi Martin SPINNING SUPERVISOR Unavailable [phone] Elijah Serra DO Primary Care Provider Micha Washington MD Unavailable Encounter Details Date Type Department Care Team (Late st Contact Info) Description 08/01/[address] LESLEY GRACE MD, [facility] 105 [facility] [address] [place] [id number] Lesley Grace MD 105 [facility] [address] [place] [address] Social History Tobacco Use Types [...] * Telephone Encounter - [place] [facility] - 08/01/2019 8:34 AM EDT Redness/bruising on shins # [phone] Eliana Hernandes documented in this encounter Plan of Treatment Upcoming Encounters Date Type Department Care Team (Late st Contact Info) Description 11/06/2024 11:00 AM EDT Office Visit [facility] [address] [place] [address], [facility] Marcy Lopez, [address] [place], [place] [phone] Micha Washington MD [address] [place] [address] Molly Figueroa PA-C [address] [place] [address] documented as of this encounter Visit Diagnoses Not on filedocumented in this encounter Additional Health Concerns Infection Onset Date Last Indicated Resolved Time 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 02/24/2017 02/22/2017 02/22/2017 04/02/2024 9:[address] documented as of this encounter Care Teams 411 Directory Assistance Operator Relationship Specialty Start Date End Date Lesley Grace MD [address] [place] [address] [place] [address] B [place] [address] PCP - General 02/16/09 04/13/23 Elijah Serra DO [address] [place] [address] PCP - General Family Medicine 07/21/23 Willi Templeton MD 61 [address] [address] [place] [address] Gastroenterology 02/25/16 María Andre MD 61 [address] [address] [place] [address] Gastroenterology 03/08/16 Selene Rodriguez APRN [address] [place] [address] Gastroenterology 08/23/16 Mariah Flowers APRN 61 23[facility] 510 [place] [address] Nurse Practitioner 08/26/16 Neyda Beltran MD [address] [place] [address] Nephrology 03/17/17 Ryanne Roblero MD [address] [place] [address] Rheumatology 03/01/18 Mi Martin APRN [address] [place] [address] 102 [place] [address] Nurse Practitioner Nurse Practitioner 04/16/19 Micha Washington MD [address] [place] [address] Endocrinology 08/06/24 08/06/24 documented as of this encounter
--- OUTSIDE RECORDS SUMMARY | 2024-08-13 12:49 | XMS_ITS | Encounter Summary ---
Author Organization [facility] Address [address] [place] [address] Support Name Relationship Address Phone Stepan Gold Personal Relationship [address] [place] [address] Mi Gold Personal Relationship Unknown Rosalind Mai Personal Relationship Unknown + [phone] Vivi Ward Personal Relationship Unknown [phone] Care Team Providers Care Nuclear Radiation Engineer Name Role Phone Yehuda Barger MD Primary Care Provider [phone] Milton Crum DO Primary Care Provider Miky Benton MD Primary Care Provider [phone] Provider, Historical Unavailable Unavailable Willi Templeton MD Unavailable [phone] María Andre MD Unavailable [phone] Selene Rodriguez FURNITURE AND BEDDING INSPECTOR Unavailable Mariah Flowers FURNITURE AND BEDDING INSPECTOR Unavailable [phone] Neyda Beltran MD Unavailable [phone] Ryanne Roblero MD Unavailable Unavailable Mi Martin APRN Unavailable [phone] Elijah Serra DO Primary Care Provider [phone] Micha Washington MD Unavailable Encounter Details Date Type Department Care Team (Late st Contact Info) Description 03/28/2007 Historical Encounter Global Yehuda Barger MD [address] [place] [address] Social History Tobacco Use Types Packs/Day Years [...] Description 11/06/2024 11:00 AM EDT Office Visit [facility] Endocrinology [place] [address] [place], [facility] [place] [address], [address] [place] [phone] Micha Washington MD [address] [place] [address] [place] [address] Molly Figueroa PA-C [address] [place] [address] [place] [address] documented as of this encounter Visit Diagnoses Not on filedocumented in this encounter Additional Health Concerns Infection Onset Date Last Indicated Resolved Time 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 02/24/2017 02/22/2017 02/22/2017 04/02/2024 9:[address] documented as of this encounter Care Teams Nuclear Radiation Engineer Relationship Specialty Start Date End Date Yehuda Barger MD [address] [place] [address] PCP - General 02/16/09 04/13/23 Milton Crum DO [address] [place] [address] PCP - General 01/08/09 02/15/09 Miky Louis MD [address] [place] [address] PCP - General 12/26/07 01/07/09 Elijah Serra DO [address] [place] [address] PCP - General Family Medicine 07/21/23 Provider, Historical 02/16/16 08/25/16 Willi Templeton MD [address] [facility] [address] [place] [address] Gastroenterology 02/25/16 María Andre MD [address] [place] [address] [address] [place] [address] Gastroenterology 03/08/16 Selene Rodriguez APRN [address] [place] [address] Gastroenterology 08/23/16 Mariah Flowers APRN [address] [place] [address] [address] [place] [address] Nurse Practitioner 08/26/16 Neyda Beltran MD [address] [address] [place] [address] Nephrology 03/17/17 Ryanne Roblero MD [address] [address] [place] [address] Rheumatology 03/01/18 Mi Martin APRN [address] [place] [address] [address] [address] [place] [phone] Nurse Practitioner Nurse Practitioner 04/16/19 Micha Washington MD [address] [place] [address] [address] [place] [address] Endocrinology 08/06/24 08/06/24 documented as of this encounter
--- OUTSIDE RECORDS SUMMARY | 2024-08-13 12:49 | XMS_ITS | Encounter Summary ---
Author Organization [employer] ([place], [place], [place], [place]) Address [address] [place] [address] Care Team Providers Care Sorting Livestock Worker Name Role Phone Elijah Serra DO Primary Care Provider [phone] Encounter Details Date Type Department Care Team (Late st Contact Info) Description 07/18/2021 Transcribed Document [facility] Family Medicine [address] [place] [address] ProviderMichael MD [address] [place] [address] Social History Tobacco Use Types [...] Do you speak a language other than [place] at [facility]? No 09/05/2023 Do you want help [...] Historical Provider, - 07/18/2021 1:33 PM CDT WOCN Inpatient Documentation Entered On: 07/20/2021 14:33 EDT Performed On: 07/20/2021 11:20 EDT by Coral Dominguez RN-PATIENT CARE NON-ACUTE NON-EXEMPT WOCN Admission Date : Admit Date 07/18/2021 13:[address] : Diagnosis (9) Weakness Pneumonia, unspecified organism Hyperglycemia, unspecified Dizziness and giddiness Unspecified fall, initial encounter Laceration without foreign body of unspecified upper arm, initial encounter Acute kidney failure, unspecified Dyspnea, unspecified Edema, unspecified Reason for WOCN Visit : Initial consult Admitting Diagnosis ST : Reason for Admission PNA/dizziness/weakness WOCN Assessment Summary : CWON consulted for wounds on legs/back. Patient was sitting chair when CWON arrived, Patient denies any skin breakdown at this time, relating he has band-aids on bilateral arms that he treated while at home and does not need wound care at this time. Did assess sacrum/coccyx, patient able to stand, no breakdown noted, heel intact. Patient relates he is ambulatory and able to walk to bathroom by himself. Please consult WOCN if skin issues arise. Coral Dominguez RN-PATIENT CARE NON-ACUTE NON-EXEMPT - 07/23/2021 12:42 EDT documented in this encounter Plan of Treatment Not on file documented as of this encounter Visit Diagnoses Not on filedocumented in this encounter Care Teams Sorting Livestock Worker Relationship Specialty Start Date End Date Elijah Serra DO 100 [facility] [address]ST [place] [address] PCP - General Family Medicine 03/11/23 documented as of this encounter
--- OUTSIDE RECORDS SUMMARY | 2024-08-13 12:49 | XMS_ITS | Encounter Summary ---
Author Organization [employer] ([place], [place], [place], [place]) Address [address] [place] [address] Care Team Providers Care Pipe Joints Supervisor Name Role Phone Elijah Serra DO Primary Care Provider [phone] Encounter Details Date Type Department Care Team (Late st Contact Info) Description 07/18/2021 Transcribed Document [facility] Family Medicine [address] [place] [address] ProviderMichael MD [address] [place] [address] Social History Tobacco Use Types [...] Do you speak a language other than Omani at [facility]? No 09/05/2023 Do you want help [...] Note - Historical Provider, MD - 07/18/2021 10:35 AM CDT Broset Violence Assessment Entered On: 07/18/2021 15:32 EDT Performed On: 07/18/2021 15:20 EDT by MARCOS OLSEN RN Broset Violence Assessment Broset Violence Checklist of Symptoms : None Broset Violence Symptoms Subtotal : 0 Broset Violence Symptoms Indicator : Low risk (0) Broset Interventions : Verbal de-escalation, Empathetic Listening, Respect patient peronsal space MARCOS OLSEN RN - 07/18/2021 15:20 EDT Electronically signed by Florencia [facility] Conversion Accounts Receivable Manager Cerner at 05/25/2022 6:03 PM CDT documented in this encounter Plan of Treatment Not on file documented as of this encounter Visit Diagnoses Not on filedocumented in this encounter Care Teams Pipe Joints Supervisor Relationship Specialty Start Date End Date Elijah Serra, DO 100 [facility] [address] [place] [phone] PCP - General Family Medicine 03/11/23 documented as of this encounter
--- OUTSIDE RECORDS SUMMARY | 2024-08-13 12:49 | XMS_ITS | Encounter Summary ---
Author Organization [employer] ([place], [place], [place], [place]) Address [address] [place] [address] Care Team Providers Care County Manager Name Role Phone Elijah Serra DO Primary Care Provider [phone] Encounter Details Date Type Department Care Team (Late st Contact Info) Description 07/18/2021 Transcribed Document [facility] Family Medicine [address] [place] [address] ProviderMichael MD [address] [place] [address] Social History Tobacco Use Types [...] Do you speak a language other than [place] at [facility]? No 09/05/2023 Do you want help [...] Provider, - 07/18/2021 10:35 AM CDT ED Triage Entered On: 07/18/2021 10:47 EDT Performed On: 07/18/2021 10:41 EDT by FELISHA VENEGAS RN ED Triage Across the Room Chief Complaint : Pt presents with a laceration to the left arm. Reports weakness and multiple falls over the last 5 days. Takes Plavix related to stent placement. Increase in BLE edema. Pt states he is also SOB. Triage Date/Time : 07/18/2021 10:41 EDT FELISHA VENEGAS RN - 07/18/2021 10:41 EDT FELISHA VENEGAS RN - 07/18/2021 10:41 EDT DCP GENERIC CODE Tracking Group : [facility] ED FELISHA VENEGAS RN - 07/18/2021 10:41 EDT Tracking Acuity : 2 - Emergent FELISHA VENEGAS RN - 07/18/2021 10:47 EDT Mode of Arrival : Wheelchair Transported to ED by : Walk in To Room Via : Wheelchair Accompanied By : Friend ED Vital Signs : Document Height & Weight : Document ED Allergies : Document ED Reason for Visit : Document FELISHA VENEGAS RN - 07/18/2021 10:41 EDT Infectious Disease History Does patient have symptoms of COVID-19? : No Tested for COVID19 in the past 14 days : No, Patient stated Does the Patient state known exposure to a COVID-19 positive case in the last 14 days? : No Patient Vaccinated for COVID-19 : Fully vaccinated FELISHA VENEGAS RN - 07/18/2021 10:41 EDT Infectious Disease Risk Screening Grid Cough < 2 wks of unknown origin : NO Cough > 2 weeks : NO Blood in Sputum : NO Fever or self-reported Fever : NO Rash of unknown origin : NO Headache : NO Stiff neck : NO Night Sweats : NO Unexplained Weight Loss : NO Diarrhea (3 episode per day) : NO FELISHA VENEGAS RN - 07/18/2021 10:41 EDT Physical contact outside [place] in the last 30 days : No Hospitalized in Foreign Country : No Infectious Disease History : Chicken pox/Shingles, Influenza, MRSA INF Disease TB Screening Calc : 0 INF Disease Recent Travel Calc : 0 FELISHA VENEGAS RN - 07/18/2021 10:41 EDT Vital Signs ED Temperature Source : Oral Temperature Mode : Fahrenheit Temperature, Fahrenheit : 98.0 Deg F Clinical Temperature, C : 36.7 Deg C Peripheral Pulse Rate : 60 bpm Respiratory Rate : 16 Breaths/Min Systolic Blood Pressure : 122 mmHg Diastolic Blood Pressure : 58 mmHg (LOW) Oxygen Saturation : 97 % FELISHA VENEGAS RN - 07/18/2021 10:41 EDT Allergy (As Of: 07/18/2021 10:47:33 EDT) Allergies (Active) Contrast Dye Estimated Onset Date: Unspecified ; Created By: RAMON GRAMAJO RN; Reaction Status: Active ; Category: Drug ; Substance: Contrast Dye ; Type: Allergy ; Updated By: RAMON GRAMAJO RN; Reviewed Date: 08/18/2020 9:57 EDT iodine topical Estimated Onset Date: Unspecified ; Reactions: Unknown ; Created By: RAMON GRAMAJO RN; Reaction Status: Active ; Category: Drug ; Substance: iodine topical ; Type: Allergy ; Updated By: RAMON GRAMAJO RN; Reviewed Date: 08/18/2020 9:55 EDT Tape Estimated Onset Date: Unspecified ; Created By: RAMON GRAMAJO RN; Reaction Status: Active ; Category: Other ; Substance: Tape ; Type: Allergy ; Updated By: RAMON GRAMAJO RN; Reviewed Date: 08/18/2020 9:56 EDT Diagnosis Control ED (As Of: 07/18/2021 10:47:33 EDT) Problems(Active) At risk for sleep apnea (IMO :73137595 ) Name of Problem: At risk for sleep apnea ; Recorder: SYSTEM, SYSTEM; Confirmation: Confirmed ; Classification: Medical ; Code: [id number] ; Last Updated: 08/18/2020 10:30 EDT ; Life Cycle Date: 08/18/2020 ; Life Cycle Status: Active ; Vocabulary: IMO Calcium pyrophosphate deposition disease (SNOMED CT :849798377 ) Name of Problem: Calcium pyrophosphate deposition disease ; Onset Date: 07/21/2020 ; Recorder: RAMON GRAMAJO RN; Confirmation: Confirmed ; Classification: Medical ; Code: [id number] ; Contributor System: QuirkyChart ; Last Updated: 08/18/2020 10:16 EDT ; Life Cycle Date: 08/18/2020 ; Life Cycle Status: Active ; Responsible Provider: RAMON GRAMAJO RN; Vocabulary: SNOMED CT Chronic kidney disease stage 3 (SNOM[address] CT :4998409449 ) Name of Problem: Chronic kidney disease stage 3 ; Onset Date: 06/19/2020 ; Recorder: RAMON GRAMAJO RN; Confirmation: Confirmed ; Classification: Medical ; Code: [id number] ; Contributor System: QuirkyChart ; Last Updated: 08/18/2020 10:15 EDT ; Life Cycle Date: 08/18/2020 ; Life Cycle Status: Active ; Responsible Provider: RAMON GRAMAJO RN; Vocabulary: SNOMED CT Coronary arteriosclerosis (SNOMED CT :00597488 ) Name of Problem: Coronary arteriosclerosis ; Onset Date: 06/19/2020 ; Recorder: RAMON GRAMAJO RN; Confirmation: Confirmed ; Classification: Medical ; Code: [id number] ; Contributor System: QuirkyChart ; Last Updated: 08/18/2020 10:15 EDT ; Life Cycle Date: 08/18/2020 ; Life Cycle Status: Active ; Responsible Provider: RAMON GRAMAJO RN; Vocabulary: SNOMED CT Dyspnea on exertion (SNOMED CT :292167105 ) Name of Problem: Dyspnea on exertion ; Onset Date: 06/23/2020 ; Recorder: RAMON GRAMAJO RN; Confirmation: Confirmed ; Classification: Medical ; Code: 041774356 ; Contributor System: PowerChart ; Last Updated: 08/18/2020 10:15 EDT ; Life Cycle Date: 08/18/2020 ; Life Cycle Status: Active ; Responsible Provider: RAMON GRAMAJO RN; Vocabulary: SNOMED CT Erosive osteoarthrosis (SNOMED CT :523543568 ) Name of Problem: Erosive osteoarthrosis ; Onset Date: 06/19/2020 ; Recorder: RAMON GRAMAJO RN; Confirmation: Confirmed ; Classification: Medical ; Code: 744127355 ; Contributor System: PowerChart ; Last Updated: 08/18/2020 10:15 EDT ; Life Cycle Date: 08/18/2020 ; Life Cycle Status: Active ; Responsible Provider: RAMON GRAMAJO RN; Vocabulary: SNOMED CT History of coronary artery bypass grafting (SNOMED CT :9073007335 ) Name of Problem: History of coronary artery bypass grafting ; Onset Date: 06/19/2020 ; Recorder: RAMON GRAMAJO RN; Confirmation: Confirmed ; Classification: Medical ; Code: [id number] ; Contributor System: PowerChart ; Last Updated: 08/18/2020 10:15 EDT ; Life Cycle Date: 08/18/2020 ; Life Cycle Status: Active ; Responsible Provider: RAMON GRAMAJO RN; Vocabulary: SNOMED CT Hyperlipidemia (SNOMED CT :24316756 ) Name of Problem: Hyperlipidemia ; Recorder: RAMON GRAMAJO RN; Confirmation: Confirmed ; Classification: Patient Stated ; Code: 98931793 ; Contributor System: PowerChart ; Last Updated: 08/18/2020 10:16 EDT ; Life Cycle Date: 08/18/2020 ; Life Cycle Status: Active ; Vocabulary: SNOMED CT Hyperparathyroidism due to renal insufficiency (SNOMED CT :74234464 ) Name of Problem: Hyperparathyroidism due to renal insufficiency ; Onset Date: 07/01/2020 ; Recorder: RAMON GRAMAJO RN; Confirmation: Confirmed ; Classification: Medical ; Code: 46699046 ; Contributor System: PowerChart ; Last Updated: 08/18/2020 10:16 EDT ; Life Cycle Date: 08/18/2020 ; Life Cycle Status: Active ; Responsible Provider: RAMON GRAMAJO RN; Vocabulary: SNOMED CT Hypertension (SNOMED CT :59830815 ) Name of Problem: Hypertension ; Recorder: RAMON GRAMAJO RN; Confirmation: Confirmed ; Classification: Patient Stated ; Code: 30077713 ; Contributor System: PowerChart ; Last Updated: 08/18/2020 10:16 EDT ; Life Cycle Date: 08/18/2020 ; Life Cycle Status: Active ; Vocabulary: SNOMED CT Hypothyroidism (SNOMED CT :78491293 ) Name of Problem: Hypothyroidism ; Onset Date: 06/19/2020 ; Recorder: RAMON GRAMAJO RN; Confirmation: Confirmed ; Classification: Medical ; Code: 64257410 ; Contributor System: InnerRewards ; Last Updated: 08/18/2020 10:15 EDT ; Life Cycle Date: 08/18/2020 ; Life Cycle Status: Active ; Responsible Provider: RAMON GRAMAJO RN; Vocabulary: SNOMED CT Secondary gout (SNOMED CT :334242083 ) Name of Problem: Secondary gout ; Onset Date: 07/01/2020 ; Recorder: RAMON GRAMAJO RN; Confirmation: Confirmed ; Classification: Medical ; Code: 297864940 ; Contributor System: QuirkyChart ; Last Updated: 08/18/2020 10:15 EDT ; Life Cycle Date: 08/18/2020 ; Life Cycle Status: Active ; Responsible Provider: RAMON GRAMAJO RN; Vocabulary: SNOMED CT Type 1 diabetes mellitus (SNOMED CT :672067317 ) Name of Problem: Type 1 diabetes mellitus ; Onset Date: 06/19/2020 ; Recorder: RAMON GRAMAJO RN; Confirmation: Confirmed ; Classification: Medical ; Code: 813928102 ; Contributor System: [employer]ards ; Last Updated: 08/18/2020 10:15 EDT ; Life Cycle Date: 08/18/2020 ; Life Cycle Status: Active ; Responsible Provider: RAMON GRAMAJO RN; Vocabulary: SNOMED CT Diagnoses(Active) Weakness Date: 07/18/2021 ; Diagnosis Type: Reason For Visit ; Confirmation: Complaint of ; Clinical Dx: Weakness ; Classification: Medical ; Clinical Service: Emergency medicine ; Code: PNED ; Probability: 0 ; Diagnosis Code: [id number] ED Height and Weight Height Source : Stated Height Entry Format : Morrill Height, Feet : 6 ft(Converted to: 183 cm, 72 Inch) Height, Inches : 0 Inch(Converted to: 0 ft 0 Inch, 0.00 cm) Clinical Height : 182.88 cm Weight Source, ED : Critical estimated dosing weight Weight Entry Format : Morrill Weight, Pounds : 202 lb Clinical Dosing Weight : 91.82 kg Body Surface Area (BSA) : 2.14 m2 Body Mass Index : 27.5 kg/m2 (HI) Cable Body Weight (IBW) : 76.59 kg FELISHA VENEGAS RN - 07/18/2021 10:41 EDT Electronically signed by [facility], [facility] Conversion Learning Specialist Cerner at 05/25/2022 6:16 PM CDT documented in this encounter Plan of Treatment Not on file documented as of this encounter Visit Diagnoses Not on filedocumented in this encounter Care Teams County Manager Relationship Specialty Start Date End Date Elijah Serra, DO [address] [facility] [address] [place] [id number] PCP - General Family Medicine 03/11/23 documented as of this encounter
--- OUTSIDE RECORDS SUMMARY | 2024-08-13 12:49 | XMS_ITS | Encounter Summary ---
Author Organization [employer] ([place], [place], [place], [place]) Address [address] [place] [address] Care Team Providers Care Brusher Machine Name Role Phone Elijah Serra DO Primary Care Provider [phone] Encounter Details Date Type Department Care Team (Late st Contact Info) Description 07/18/2021 Transcribed Document [facility] Family Medicine [address] [place] [address] ProviderMichael MD [address] [place] [address] Social History Tobacco Use Types [...] Do you speak a language other than Palauan at [facility]? No 09/05/2023 Do you want help with [...] Conversion Note - Historical Provider, - 07/18/2021 3:14 PM CDT Meds to Bed Enrollment Entered On: 07/20/2021 9:10 EDT Performed On: 07/18/2021 15:14 EDT by ANDREW YAP PHARMACIST-MEDICATION RECON Meds to Bed Enrollment Patient Enrollment Decision: : Yes/enroll in meds to bed program ANDREW YAP PHARMACIST-MEDICATION RECON - 07/20/2021 9:10 EDT documented in this encounter Plan of Treatment Not on file documented as of this encounter Visit Diagnoses Not on filedocumented in this encounter Care Teams Brusher Machine Relationship Specialty Start Date End Date Elijah Serra, DO 100 [facility] [address] [place] [address] PCP - General Family Medicine 03/11/23 documented as of this encounter
--- OUTSIDE RECORDS SUMMARY | 2024-08-13 12:49 | XMS_ITS | Encounter Summary ---
Author Organization [facility] Address [address] [place] [address] Support Name Relationship Address Phone Stepan Gold Personal Relationship [address] [facility] [place] [place] [address] Mi Gold Personal Relationship Unknown Rosalind Mai Personal Relationship Unknown [phone] Vivi Ward Personal Relationship Unknown [phone] Care Team Providers Care Row Boss Name Role Phone Lesley Grace MD Primary Care Provider [phone] Provider, Historical Unavailable Unavailable Willi Templeton MD Unavailable [phone] María Andre MD Unavailable Selene Rodriguez BORE MINER OPERATOR Unavailable Mariah Flowers BORE MINER OPERATOR Unavailable Neyda Beltran MD Unavailable Ryanne Roblero MD Unavailable Unavailable Mi Martin BORE MINER OPERATOR Unavailable [phone] Elijah Serra DO Primary Care Provider [phone] Micha Washington MD Unavailable Reason for Visit * Reason Onset Date Comments Phone Advice For Symptoms 11/15/2011 Encounter Details Date Type Department Care Team (Late st Contact Info) Description 11/15/[address] LESLEY GRACE MD, [address] [place] [address] Lesley Grace MD [address] [place] [address] 1948 [facility] [address] [place]es [address] Phone Advice For Symptoms Social History Tobacco [...] * Telephone Encounter - [place]app[place] Mary - 11/15/2011 10:25 AM EDT Pt is having tooth cut out next Tuesday and Needs a note stating its Ok to discontinue plavix for however many days you think. Pt to pick-up note documented in this encounter Plan of Treatment Upcoming Encounters Date Type Department Care Team (Late st Contact Info) Description 11/06/2024 11:00 AM EDT Office Visit [facility] [place] [address] [place] [address], [facility] [address], [address] [place], [place] [id number] Micha Washington MD [address] [place] [address] [place] [address] Molly Figueroa PA-C [address] [place] [address] documented as of this encounter Visit Diagnoses Not on filedocumented in this encounter Additional Health Concerns Infection Onset Date Last Indicated Resolved Time 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 02/24/2017 02/22/2017 02/22/2017 04/02/2024 9:[address] documented as of this encounter Care Teams Row Boss Relationship Specialty Start Date End Date Lesley Grace MD [address] [place] [address] B [place] [address] PCP - General 02/16/09 04/13/23 Elijah Serra DO [address] [place] [address] PCP - General Family Medicine 07/21/23 Provider, Historical 02/16/16 08/25/16 Willi Templeton MD 613 [address] [address] [place] [address] Gastroenterology 02/25/16 María Andre MD 61 [address] [address] [place] [address] Gastroenterology 03/08/16 Selene Rodriguez APRN [address] [place] [address] Gastroenterology 08/23/16 Mariah Flowers APRN [address] [address] [place] [address] Nurse Practitioner 08/26/16 Neyda Beltran MD [address] [place] [address] Nephrology 03/17/17 Ryanne Roblero MD [address] [place] [address] Rheumatology 03/01/18 Mi Martin APRN [address] [place] [address] [address] [place] [address] Nurse Practitioner Nurse Practitioner 04/16/19 Micha Washington MD [address] [place] [address] Endocrinology 08/06/24 08/06/24 documented as of this encounter
--- OUTSIDE RECORDS SUMMARY | 2024-08-13 12:49 | XMS_ITS | Encounter Summary ---
Author Organization [employer] ([place], [place], [place], [place]) Address [address] [place] [address] Care Team Providers Care Halfway House Counselor Name Role Phone Elijah Serra DO Primary Care Provider [phone] Encounter Details Date Type Department Care Team (Late st Contact Info) Description 07/18/2021 Transcribed Document [facility] Family Medicine [address] [place] [address] ProviderMichael MD [address] [place] [address] Social History Tobacco Use Types [...] you speak a language other than [place] at [facility]? No 09/05/2023 Do you want help [...] Conversion Note - Historical Provider, - 07/18/2021 11:56 AM CDT Patient: SOLEDAD DOWD Age: 65 years Sex: Male : 1955 Associated Diagnoses: Acute renal failure superimposed on chronic kidney disease; Dizziness; Dyspnea; Peripheral edema; Hyperglycemia; Skin tear of upper extremity; PNA (pneumonia); Fall from standing; Weakness Author: YAKOV LLAMAS PA Basic Information Time seen: Date & time 07/18/2021 11:23:00. History source: Patient, spouse. Arrival mode: Private vehicle. History limitation: None. Additional information: Patient's physician(s): ELIJAH SERRA DO-FAM, Chief Complaint from Nursing Triage Note : Chief Complaint 07/18/2021 10:41 EDT Chief Complaint Pt presents with a laceration to the left arm. Reports weakness and multiple falls over the last 5 days. Takes Plavix related to stent placement. Increase in BLE edema. Pt states he is also SOB. . History of Present Illness The patient presents with weakness and Patient [...] ago but patient continues to be symptomatic.. Review of Systems Constitutional symptoms: No fever, no chills. Skin symptoms: Abrasions, No rash, Eye symptoms: Vision unchanged. ENMT symptoms: No ear pain, no sore throat, no nasal congestion. Respiratory symptoms: Negative except as documented in HPI. Cardiovascular symptoms: Peripheral edema, no chest pain, no palpitations, no tachycardia, no syncope, no diaphoresis. Gastrointestinal symptoms: No abdominal pain, no nausea, no vomiting, no diarrhea. Genitourinary symptoms: No dysuria, no hematuria. Musculoskeletal symptoms: No back pain, no Muscle pain. Neurologic symptoms: Dizziness, weakness (Generalized, no focal weakness.), no headache, no altered level of consciousness, no numbness, no tingling. Health Status Allergies: Allergic Reactions (Selected) Severity Not Documented Contrast Dye- No reactions were documented. Iodine topical- Unknown. Tape- No reactions were documented.. Medications: (Selected) Documented Medications Documented EPINEPHrine 0.3 mg injectable kit: 0 Refill(s) Metoprolol Succinate ER 50 mg oral tablet, extended release: 0 Refill(s) Oxervate 0.002 % eye drops: 0 Refill(s) Potassium Chloride (Tox-Oiza-Fsc M10) 10 mEq oral tablet, extended release: [...] traZODone 150 mg oral tablet: 0 Refill(s), medications above per EMR & 6-month external RX history; patient cannot confirm accuracy.. Past Medical/ Family/ Social History Surgical history: Hip replacement (8563790036). Knee replacement ([id number]). thyroidectomy. Coronary artery bypass graft ([id number]). Cholecystectomy ([id number]). Colonoscopy (528243825). Stented coronary artery ([id number]).. Family history: No family history items have been selected or recorded.. Social history: Social & Psychosocial Habits Alcohol 08/18/2020 Alcohol Use History, Social Habits No Substance Abuse 08/18/2020 Recreational Drug Use History No Recreational Drug Use Last 12 Months No Tobacco 08/18/2020 Smoking Status Never (less than 100 in l Smokeless Tobacco Status Never . Problem list: Active Problems (13) At risk for sleep apnea Calcium pyrophosphate deposition disease Chronic kidney disease stage 3 Coronary arteriosclerosis Dyspnea on exertion Erosive osteoarthrosis History of coronary artery bypass grafting Hyperlipidemia Hyperparathyroidism due to renal insufficiency Hypertension Hypothyroidism Secondary gout Type 1 diabetes mellitus . Physical Examination Vital Signs Vital Signs/Vital Measures 07/18/2021 10:41 EDT Systolic Blood Pressure 122 mmHg Diastolic Blood Pressure 58 mmHg LOW Temperature Source Oral Temperature Mode Fahrenheit Temperature, Fahrenheit 98.0 Deg F Clinical Temperature, C 36.7 Deg C Peripheral Pulse Rate 60 bpm Respiratory Rate 16 Breaths/Min Oxygen Saturation 97 % . Measurements 07/18/2021 10:41 EDT Height Source Stated Height Entry Format [place] Height/Length, POLISH (ft) 6 ft Height/Length POLISH 0 Inch CLINICALHEIGHT 182.88 cm [place] Body Weight 76.59 kg Weight Source, ED Critical estimated dosing weight Weight Entry Format [place] Weight [place] lb 202 lb CLINICALWEIGHT 91.82 kg Body Surface Area (BSA) 2.14 m2 Body Mass Index 27.5 kg/m2 HI . Oxygen Saturation 07/18/2021 10:41 EDT Oxygen Saturation 97 % . General: Alert, no acute distress. Skin: Warm, dry, Superficial skin tear of the left elbow.. Head: Normocephalic, atraumatic. Neck: Supple. Eye: Extraocular movements are intact, normal conjunctiva. Ears, nose, mouth and throat: Oral mucosa moist. Cardiovascular: Regular rate and rhythm, No murmur, Normal peripheral perfusion, Edema: Bilateral, lower extremity, pedal, pretibial. Respiratory: Lungs are clear to auscultation, respirations are non-labored, breath sounds are equal. Gastrointestinal: Soft, Nontender, Non distended. Neurological: Alert and oriented to person, place, time, and situation, No focal neurological deficit observed. Psychiatric: Cooperative, appropriate mood & affect. Medical Decision Making Differential Diagnosis: Weakness, dizziness, anemia, hypotension, dehydration, hypoglycemia, viral syndrome, influenza, pneumonia, sepsis, urinary tract infection, electrolyte imbalance, gastrointestinal bleed, cerebral vascular accident. Documents reviewed: Emergency department nurses' notes. Orders Include Previous Orders (Selected) Inpatient Orders Ordered EKG: Normal Saline Bolus: 500 mL, 500 mL/Hr, IV Piggyback, 1-Time Orthostatic Vital Signs: Saline Lock Insert: Wound Care: Ordered (Dispatched) BMP Basic Metabolic Panel: CBC w/ Auto Diff: TSH Thyroid Stimulating Hormone: Troponin I High Sensitivity: Urinalysis UA Rflx Microscopic Cult if Ind: Ordered (Exam Ordered) CR Chest 1 Vw Portable: . Electrocardiogram: Time 07/18/2021 10:51:00, rate 52, The Rhythm is sinus bradycardia. . Results review: Lab results : Lab Results 07/18/2021 11:49 EDT Sodium Level 128 mmol/L LOW Potassium Level 4.5 mmol/L Chloride Level 98 mmol/L LOW Carbon Dioxide Level 24 mmol/L Anion Gap 10 Glucose Level 714 mg/dL CRIT Blood Urea Nitrogen 40 mg/dL HI Creatinine Level 2.40 mg/dL HI eGFR 33 mL/min/1.73m2 LOW eGFR NonAfrican 27 mL/min/1.73m2 LOW Bun/Creatinine 16.7 Calcium Level 8.5 mg/dL Troponin I High Sensitivity 15.3 pg/mL WBC 3.6 K/uL RBC 3.80 Million/uL LOW Hgb 9.8 g/dL LOW Hct 30.7 % LOW MCV 80.8 fL MCH 25.8 pg MCHC 31.9 Gram/dL LOW Platelet Count 135 K/uL LOW MPV 9.6 fL RDW 15.6 % HI Neut % 69.3 % Neut # 2.51 K/uL Lymph % 14.9 % LOW Lymph # 0.54 x10(3)/uL LOW [place] % 7.2 % [place] # 0.26 K/uL Eos % 7.5 % HI Eos # 0.27 x10(3)/uL Baso % 0.8 % Baso # 0.03 x10(3)/uL Slide Review No IG# 0.01 x10(3)/uL IG% 0.30 % TSH 5.600 mcInt Units/mL HI . Chest X-Ray: Radiology Results (Last 48 hours) [id number] -- 07/18/2021 10:35 CR Chest 1 Vw Portable (07/18/2021 12:08) Result: PORTABLE CHEST 07/18/2021 11:49 AM HISTORY: Dizziness for 2 weeks, fall this a.m.COMPARISON: None.FINDINGS: The heart is normal in size . The mediastinum isunremarkable . There is a left lower lobe opacity. There is nopneumothorax . The osseous structures are unremarkable .IMPRESSION: Opacity as above. Probably secondary to pneumonia. Follow-up to complete resolution recommended .Films reviewed, interpreted, and dictated by Dr. Church.Transcribed by Mary Agarwal PA-C.I have personally viewed, interpreted and dictated the examination. Ihave read and agree with the above final transcribed report. . Impression and Plan Diagnosis Acute renal failure superimposed on chronic kidney disease - Discharge, Emergency medicine, Medical Dizziness - Discharge, Emergency medicine, Medical Dyspnea - Discharge, Emergency medicine, Medical Peripheral edema - Discharge, Emergency medicine, Medical Hyperglycemia - Discharge, Emergency medicine, Medical Skin tear of upper extremity - Discharge, Emergency medicine, Medical PNA (pneumonia) - Discharge, Emergency medicine, Medical Fall from standing - Discharge, Emergency medicine, Medical Complaint of Weakness - Reason For Visit, Emergency medicine, Medical Calls-Consults - 07/18/2021 13:20:00 , SKIP ROBLES MD-INT, phone call, recommends admission to tele. Plan Condition: Stable. Disposition: Admit Admit/Transfer/Discharge: Admit to Inpatient (Order): Start: 07/18/2021 13:28 EDT, Admit reason: PNA/dizziness/weakness, Estimated length of stay 2 Midnights or LONGER, Level of Care: Telemetry unit, Admitting: SKIP ROBLES MD-INT. Counseled: Patient, Family, Regarding diagnosis, Regarding treatment plan, Patient indicated understanding of instructions, Discussed need for admission and pt/family is amenable to this plan.. Notes: I certify that the physician multimedia production assistant performed the services as delegated. This note has been prepared with the use of voice recognition software and may contain sound alike errors and omissions.. documented in this encounter Plan of Treatment Not on file documented as of this encounter Visit Diagnoses Not on filedocumented in this encounter Care Teams Halfway House Counselor Relationship Specialty Start Date End Date Elijah Serra, DO [address] [facility] [address] [place] [address] PCP - General Family Medicine 03/11/23 documented as of this encounter
--- OUTSIDE RECORDS SUMMARY | 2024-08-13 12:49 | XMS_ITS | Encounter Summary ---
Author Organization [employer] ([place], [place], [place], [place]) Address [address] [place] [address] Care Team Providers Care Social Services Name Role Phone Elijah Serra DO Primary Care Provider [phone] Encounter Details Date Type Department Care Team (Late st Contact Info) Description 07/18/2021 Transcribed Document [facility] Family Medicine [address] [place] [address] ProviderMichael MD [address] [place] [address] Social History Tobacco Use Types [...] Do you speak a language other than [place] at [facility]? No 09/05/2023 Do you want help [...] Conversion Note - Historical Provider, - 07/18/2021 12:49 PM CDT Provider Notification Entered On: 07/18/2021 12:50 EDT Performed On: 07/18/2021 12:49 EDT by LULU MARK, RN Provider Notification Provider Notified of Concerns/Results : Critical value result Critical Result Details : Glucose 714 Critical Result Read Back and Verified : Yes Provider Notified, Subsequent Call : 07/18/2021 12:49 EDT Provider Notified Name : YAKOV LLAMAS PA Provider Notified Time : 07/18/2021 12:50 EDT LULU MARK RN - 07/18/2021 12:49 EDT Electronically signed by Florencia [facility] Conversion Ripsaw Matcher Cerner at 05/25/2022 6:13 PM CDT documented in this encounter Plan of Treatment Not on file documented as of this encounter Visit Diagnoses Not on filedocumented in this encounter Care Teams Social Services Relationship Specialty Start Date End Date Elijah Serra, DO [address] [facility] [address] [place] [address] PCP - General Family Medicine 03/11/23 documented as of this encounter
[2024-08-13 13:28] LABS: Hematocrit 33.7 % (42.0-52.0); Hemoglobin 10.5 g/dL (14.1-18.0); Immature Granulocytes % 0.4 %; Mean Corpuscular HGB Conc 31.2 g/dL (31.8-35.4); Mean Corpuscular Hemoglobin 27.8 pg (27.0-31.2); Mean Corpuscular Volume 89.2 fl (80-94); Nucleated Red Blood Cells % 0 %; Platelet Count 120 K/mm3 (142-424); Red Blood Count 3.78 M/mm3 (4.60-6.20); Red Cell Distribution Width-SD 53.5 fL; VBG HCO3 26.8 mmol/L (23-30); VBG PCO2 46.0 mmol/L (35-51); VBG PH 7.38 mmol/L (7.31-7.41); VBG PO2 36.2 mmol/L (28-40); White Blood Count 12.8 K/mm3 (4.8-10.8)
[2024-08-13 13:34] LABS: Lactate Venous 2.2 mmol/L (0.4-2.0)
[2024-08-13 13:39] LABS: INR 1.08 (0.9-1.1); Prothrombin Time 11.9 seconds (10.1-12.5)
[2024-08-13 13:40] LABS: Alanine Aminotransferase 21 U/L (12-78); Albumin Level 3.9 g/dl (3.5-5.0); Albumin/Globulin Ratio 1.2 (1.1-1.8); Alkaline Phosphatase 80 U/L (38-126); Anion Gap 14.2 mEq/L (5-15); Aspartate Amino Transferase 27 U/L (17-59); Bilirubin,Total 1.2 mg/dl (0.2-1.3); Blood Urea Nitrogen 17 mg/dl (9-20); Calcium 9.1 mg/dl (8.4-10.2); Carbon Dioxide 30 mmol/L (22.0-30.0); Chloride 94 mmol/L (98-107); Creatinine Clearance Estimated 58 mL/min (50-200); Creatinine,Serum 1.30 mg/dl (0.66-1.25); Estimated Glomerular Filt Rate 55 ml/min (>60); GFR (African American) 66 ML/MIN (>60); Globulin 3.2 g/dL (1.3-3.2); Glucose 238 mg/dl (74-100); Magnesium 1.7 mg/dl (1.6-2.3); Potassium 4.2 mmoL/L (3.5-5.1); Sodium 134 mmol/L (136-145); Total Protein,Serum 7.1 g/dl (6.3-8.2)
[2024-08-13 13:51] LABS: NT Pro Brain Natriuretic Pep. 1270 pg/mL (0-125)
[2024-08-13 13:54] LABS: Troponin I 0.01 ng/ml (0.00-0.034)
[2024-08-13 13:56] LABS: Procalcitonin 3.36 ng/mL (0.0-2.0)
[2024-08-13] MEDS: 0.9 % SODIUM CHLORIDE 50 ML VIAL IV (14:02)
[2024-08-13] MEDS: SODIUM CHLORIDE 0.9% 10ML SYR (RAD ONLY) 10 ML IV (14:02)
[2024-08-13] MEDS: IOPAMIDOL-370 (76%);100ML BOTTLE 70 ML IV (14:02)
--- NOTE | 2024-08-13 15:09 | PC.NURSE ---
TRU STEVENSON SPEAKING WITH HOSPITALIST
--- NOTE | 2024-08-13 15:12 | PC.NURSE ---
BRAKE OPERATOR HEAVY DUTY NOTIFIED OF ADMISSION
--- NOTE | 2024-08-13 15:15 | EXP.HP ---
History of Present Illness *Admission Date: 08/13/24 *Reason for visit:: short of breath *History of present illness: Mr. Gold's a 68-year-old male with type 1 diabetes, neuropathy, recurring pneumonia, chronic gout, GERD BPH, hypothyroid, and recurrent pneumonia. He presented to the ER due to worsening shortness of breath over the last 2 to 3 days. Most recently he was sick several weeks ago and fell at home down a flight of stairs while in [facility]. He was sent to [facility] in [place] and transferred to where he was admitted for approximately a week due to pneumonia. Ultimately discharged on oral antibiotics (Augmentin) and has been at home since recovering. On arrival he was more short of breath. Found to be hypoxic necessitating supplemental oxygen at 4 L to maintain sats above 90%. Patient was unsteady at home and weak. On workup in the ED, found to have white count of 12.8, negative respiratory panel, Pro-Adelfo of 3.36, chest imaging showing prominent left lower lobe pneumonia with adjacent right lower lobe pneumonia as well. Kidney function at baseline. BNP elevated at 1200. Initiated on broad-spectrum antibiotics. Medicine consulted for admission and further care Arrival to the floor, patient appears comfortable. at bedside helping supplement history. Denies nausea or vomiting. Fell and bruised his left forearm today. Still has some residual bruising from his fall several weeks ago. Has been having some increased confusion over the past several months. States he has worked with speech therapy before after being asked about aspiration risk. Has had modified barium swallow previously and was told to turn his head to the left when he swallows. [facility] Disclaimer: The information contained in this section may have been updated after the patient was seen, as this information can be updated by other users. Medical History Bronchiectasis type 1 Recurrent bacterial pneumonia Staphylococcal pneumonia Recurrent pneumonia Diastolic CHF, acute Bilateral lower extremity edema Pneumonia COVID-19 CAD (coronary artery disease) GERD (gastroesophageal reflux disease) Hypothyroidism Hyperlipidemia Hypertension Insulin pump fitting or adjustment Fall Side effects of vaccination Type 1 diabetes mellitus with diabetic polyneuropathy Traumatic ecchymosis of ankle Cellulitis Laceration of lower leg Surgical History History of coronary artery bypass graft H/O thyroidectomy Total knee replacement status H/O bilateral hip replacements History of total right knee replacement (TKR) Family History Mother Coronary artery disease Father COVID-19 Social History Smoking Status: Never smoker alcohol intake: never substance use type: denies use current occupational status: employed Travel in the last 8 weeks?: None household members: spouse housing: house lives independently: Yes marital status: number of children: 5 education level: high school service: No chcf: No current occupation: [employer] diet: diabetic marianna/yazdanism: [employer] Have you lived/traveled outside [place] in past 30 days?: No Contact w/someone who lives/traveled outside US past 30 days?: No Exposure to someone with infectious disease in past 14 days?: No Do you have a fever (greater than 100.4 F or 38 C)?: No Have you tested positive for COVID-19?: No Exposed to someone with COVID-19 in past 14 days?: No Do you have a sore throat?: No Do you have a cough?: No Do you have any weakness?: No Do you have any diarrhea?: No Are you experiencing any unusual bleeding?: No Do you have any muscle aches/pain?: No Do you have any abdominal pain?: No Are you experiencing loss of taste or smell?: No Other Medical History Have you received the Flu Vaccine for this season: No Have you received the Pneumonia Vaccine: Yes Review of Systems Review of Systems Review of systems (narrative): 14 point review of systems performed, pertinent positives and negatives as per HPI Meds Home Medications and Allergies Home Medications ?Medication ?Instructions ?Recorded ?Confirmed ?Type pen needle, diabetic 32 gauge x 11/09/23 03/19/24 History (BD Ultra-Fine Martine Pen Needle) clopidogrel 75 mg tablet 75 mg PO DAILY 11/29/23 08/13/24 History colchicine 0.6 mg tablet 0.6 mg PO BID 11/29/23 08/13/24 History colestipol 1 gram tablet 1 g PO DAILY 11/29/23 08/13/24 History donepezil 10 mg tablet 10 mg PO DAILY 11/29/23 08/13/24 History duloxetine 60 mg capsule,delayed 60 mg PO DAILY 11/29/23 08/13/24 History release hydrocodone 5 mg-acetaminophen 325 1 tab PO Q8H 11/29/23 08/13/24 History mg tablet hydroxychloroquine 200 mg tablet 200 mg PO BID 11/29/23 08/13/24 History insulin aspart U-100 100 unit/mL 8 - 12 unit SQ ACHS Diabetes 11/29/23 08/13/24 History (3 mL) subcutaneous pen (Novolog FlexPen U-100 Insulin aspart) potassium chloride 10 mEq 10 meq PO DAILY 11/29/23 08/13/24 History tablet,extended release(part/cryst) rosuvastatin 20 mg tablet 20 mg PO DAILY 11/29/23 08/13/24 History sucralfate 1 gram tablet 1 g PO DAILY 11/29/23 08/13/24 History trazodone 150 mg tablet 150 mg PO HS 11/29/23 08/13/24 History valacyclovir 500 mg tablet 500 mg PO DAILY 11/29/23 08/13/24 History allopurinol 300 mg tablet 300 mg PO DAILY 03/19/24 08/13/24 History furosemide 40 mg tablet 40 mg PO DAILY 03/19/24 08/13/24 History gabapentin 800 mg tablet 800 mg PO TID 03/19/24 08/13/24 History levothyroxine 112 mcg tablet 150 mcg PO DAILY 03/19/24 08/13/24 History metoprolol succinate 25 mg 25 mg PO DAILY 03/19/24 08/13/24 History tablet,extended release 24 hr tamsulosin 0.4 mg capsule 0.4 mg PO BID 03/19/24 08/13/24 History aspirin 81 mg tablet 81 mg PO DAILY 08/13/24 08/13/24 History cetirizine 10 mg tablet (Zyrtec) 10 mg PO DAILY 08/13/24 08/13/24 History finasteride 5 mg tablet 5 mg PO DAILY 08/13/24 08/13/24 History insulin glargine U-300 conc 300 20 unit SQ DAILY 08/13/24 08/13/24 History unit/mL (1.5 mL) subcutaneous pen (Toujeo SoloStar U-300 Insulin) tizanidine 4 mg tablet 4 mg PO DAILY 08/13/24 08/13/24 History New Prescriptions to Start Prescriptions: Allergies Allergy/AdvReac Type Severity Reaction Status Date / Time iodine (IODINE) Allergy Mild Verified 01/04/24 09:33 adhesive tape Allergy Verified 01/04/24 09:33 Exam Data for Last 24 hours Vital signs and Labs for Last 24 Hours: Temp Pulse Resp BP Pulse Ox O2 Del Method 98.7 F 66 17 105/56 L 99 Room Air 08/13/24 12:51 08/13/24 14:30 08/13/24 14:30 08/13/24 14:30 08/13/24 14:30 08/13/24 12:51 Laboratory Results - last 24 hr 08/13/24 12:41: Chlamy pneumoniae PCR Not detected, Adenovirus (PCR) Not detected, B. pertussis DNA (PCR) Not detected, Coronavirus OC43 (PCR) Not detected, Coronavirus HKU1 (PCR) Not detected, Coronavirus 229E (PCR) Not detected, SARS-CoV-2 (PCR) Not detected, Coronavirus NL63 (PCR) Not detected, Human Metapneumovir PCR Not detected, Influenza A (H1) PCR Not detected, Influ A (H1N1/09) PCR Not detected, Influenza A (H3) PCR Not detected, Influenza Type A (PCR) Not detected, Influenza Type B (PCR) Not detected, M. pneumoniae (PCR) Not detected, Parainfluenza 1 (PCR) Not detected, Parainfluenza 2 (PCR) Not detected, Parainfluenza 3 (PCR) Not detected, Parainfluenza 4 (PCR) Not detected, RSV (PCR) Not detected, Entero/Rhino (PCR) Not detected 08/13/24 13:15: WBC 12.8 H, RBC 3.78 L, Hgb 10.5 L, Hct 33.7 L, MCV 89.2, MCH 27.8, MCHC 31.2 L, RDW 16.5, Plt Count 120 L, MPV 9.2, Neut % (Auto) 84.8 H, Lymph % (Auto) 6.1 L, Porter % (Auto) 7.1, Eos % (Auto) 1.3, Baso % (Auto) 0.3, Neut # (Auto) 10.8 H, Lymph # (Auto) 0.8, Porter # (Auto) 0.9, Eos # (Auto) 0.2, Baso # (Auto) 0.0, PT 11.9, INR 1.08, VBG pH 7.38, VBG pCO2 46.0, VBG pO2 36.2, VBG HCO3 26.8, VBG Total CO2 28.3 H, VBG O2 Saturation 70.0, VBG Base Excess 1.8, VBG Lactic Acid 2.2 H, Sodium 134 L, Potassium 4.2, Chloride 94 L, Carbon Dioxide 30, Anion Gap 14.2, BUN 17, Creatinine 1.30 H, Estimated Creat Clear 58, Estimated GFR 55 L, Est GFR ( Amer) 66, Glucose 238 H, Lactate 2.1, Calcium 9.1, Magnesium 1.7, Total Bilirubin 1.2, AST 27, ALT 21, Alkaline Phosphatase 80, Troponin I 0.01, NT-Pro-B Natriuret Pep 1270 H, Total Protein 7.1, Albumin 3.9, Globulin 3.2, Albumin/Globulin Ratio 1.2, Procalcitonin 3.36 H I & O for Last 24 hours: Intake & Output 08/10/24 08/11/24 08/12/24 08/13/24 23:59 23:59 23:59 23:59 Weight 77.111 kg Constitutional Constitutional: mild distress, average body habitus, chronically ill appearing and cooperative *Routine HEENT Exam Head: Present normocephalic Eye: Present EOMI and PERRL ENT: Present mucous membranes moist Comments: Right eyelid partially closed, surgically adhered lateral portion due to previous abrasion *Routine Neck Exam Neck: Present supple; Absent lymphadenopathy Routine Chest/Breast/Axilla Exam Comments: Midline scar from previous CABG *Routine Respiratory Exam Respiratory: Present rhonchi, crackles (Bases bilaterally) and normal respiratory effort; Absent wheezes *Routine Cardiovascular Exam Cardiovascular: Present RRR *Routine Abdominal Exam Abdominal: Present soft and normoactive bowel sounds; Absent tenderness *Routine Rectal Exam Rectal:: deferred *Routine Genitalia Exam Genitalia:: deferred *Routine Extremities Exam Extremities: Present edema (1+ to knees); Absent cyanosis or clubbing *Routine Skin Exam Skin: Present intact, warm and ecchymosis (Left forearm both ventral and dorsal surfaces, right flank); Absent rash *Routine Neurological Exam Neurological: Present alert, oriented X3 and moving all extremities Assessment and Plan *Assessment and plan (1) Sepsis without septic shock: Status: Acute Category: Medical Code(s): A41.9 - Sepsis, unspecified organism (2) Multifocal pneumonia: Status: Acute Category: Medical Code(s): J18.8 - Other pneumonia, unspecified organism (3) Acute hypoxemic respiratory failure: Status: Acute Category: Medical Code(s): J96.01 - Acute respiratory failure with hypoxia (4) Type 1 diabetes mellitus with diabetic polyneuropathy: Status: Chronic Category: Medical Code(s): E10.42 - Type 1 diabetes mellitus with diabetic polyneuropathy (5) Hypothyroidism: Status: Chronic Qualifiers: Hypothyroidism type: postoperative Qualified Code(s): E89.0 - Postprocedural hypothyroidism Category: Medical Code(s): E03.9 - Hypothyroidism, unspecified (6) Hypertension: Status: Chronic Qualifiers: Hypertension type: primary hypertension Qualified Code(s): I10 - Essential (primary) hypertension Category: Medical Code(s): I10 - Essential (primary) hypertension (7) Hyperlipidemia: Status: Chronic Qualifiers: Hyperlipidemia type: mixed hyperlipidemia Qualified Code(s): E78.2 - Mixed hyperlipidemia Category: Medical Code(s): E78.5 - Hyperlipidemia, unspecified (8) CAD (coronary artery disease): Status: Chronic Qualifiers: Associated angina: without angina Coronary Disease-Associated Artery/Lesion type: [place] artery [place] vs. transplanted heart: [place] heart Qualified Code(s): I25.10 - Atherosclerotic heart disease of [place] coronary artery without angina pectoris Category: Medical Code(s): I25.10 - Atherosclerotic heart disease of [place] coronary artery without angina pectoris (9) Gout: Status: Resolved Qualifiers: Chronicity: chronic Gout etiology: unspecified cause Gout site: toe Laterality: right Presence of tophus: without tophus Qualified Code(s): M1A.9XX0 - Chronic gout, unspecified, without tophus (tophi) Category: Medical Code(s): M10.9 - Gout, unspecified (10) Rheumatoid arthritis: Status: Chronic Qualifiers: Laterality: bilateral Rheumatoid arthritis location: foot Rheumatoid factor presence: with rheumatoid factor Qualified Code(s): M05.771 - Rheumatoid arthritis with rheumatoid factor of right ankle and foot without organ or systems involvement; M05.772 - Rheumatoid arthritis with rheumatoid factor of left ankle and foot without organ or systems involvement Category: Medical Code(s): M06.9 - Rheumatoid arthritis, unspecified Plan 68-year-old male with history of diabetes, CAD, hypertension, chronic gout. He presented to the ER because of worsening shortness of breath over the past 24 hours. Has recently been admitted within the past 4 to 6 weeks to for pneumonia. Has some concern for aspiration component. On arrival to the ER found to be septic with multifocal pneumonia. Initiated on broad-spectrum antibiotics. Medicine consulted for admission. Discussed case with ER physician, request admission for IV antibiotics and further workup due to new oxygen requirement. I decided to admit for further care. Necessitating inpatient management. Problems addressed as follows: Recurrent multifocal pneumonia suspected secondary to aspiration Sepsis Acute hypoxemic respiratory failure - Per my review of chest CT has dense consolidation right and left lower lobes, highly suspicious for aspiration pneumonia. - Received azithromycin and ceftriaxone in the ED, transition to Zosyn 4.5 g every 6 hours - Sputum and blood cultures pending - White count elevated at 12.8, hemoglobin 10.5. Repeat CBC, CMP, magnesium ordered for the morning - Pro-Adelfo 3.36 - supplemental O2 as needed for goal sats >90%, on 4L - Pulmonology consulted to evaluate in morning due to recurrent nature of pneumonia as well as underlying RA and risk for RA related lung disease. - DuoNebs every 6 hours scheduled Insulin-dependent diabetes -Continue basal bolus regimen. A1c obtained, 8.7. Was 8 3 months ago. -New insulin glargine 20 units nightly, sliding scale insulin ACHS - Okay to use Dexcom to confirm glucose - Glucose 238 on admission. No anion gap or concern for DKA. - Potassium 4.2, magnesium 1.7. Kidney function normal with BUN 17 creatinine 1.3., Repeat CBC, CMP, magnesium ordered for the morning CAD Hypertension Hyperlipidemia -Continue home 81 daily, Plavix 75 mg daily, metoprolol 25 mg daily. Hold lisinopril 2.5 mg daily - holding statin in acute illness phase BPH: Tamsulosin 0.8 mg nightly Gout: Continue allopurinol 300 mg daily Memory: Continue donepezil 10 mg daily Holding hydroxychloroquine for RA due to acute infection Continue levothyroxine 125 mcg daily Continue pantoprazole 40 mg daily for GERD Continue gabapentin 800 mg 3 times daily for neuropathy DNR Diabetic diet Lovenox 40 mg subcu daily
[2024-08-13] MEDS: CEFTRIAXONE 1 GM 1 GM in 0.9 % SODIUM CHLORIDE 50 ML IV (15:20)
[2024-08-13] MEDS: SODIUM CHLORIDE 990 ML IV (15:20)
--- NOTE | 2024-08-13 15:49 | PC.NURSE ---
Assisted the patient to the restroom and gave him a diet soda
[2024-08-13 15:56] LABS: Thyroid Stimulating Hormone 0.73 uIU/mL (0.465-4.68)
[2024-08-13] MEDS: AZITHROMYCIN 500 MG in 0.9 % SODIUM CHLORIDE 250 ML 250 MG IV (16:08)
[2024-08-13 16:23] LABS: Troponin I 0.01 ng/ml (0.00-0.034)
[2024-08-13 16:46] LABS: POC Glucose,Bedside 249 (70-110)
[2024-08-13] MEDS: humaLOG 100 UNITS/ML 10ML VIAL (SSI) SUBCUT ×2 (16:47→21:45)
[2024-08-13 17:35] LABS: Reflex Lactic Add Lactic Reflex
[2024-08-13 17:37] LABS: Hemoglobin A1C 8.7 % (4.0-6.0)
[2024-08-13] MEDS: PIPERACILLIN/TAZO 4.5 GM in 0.9 % SODIUM CHLORIDE 100 ML IV (18:00)
[2024-08-13 18:18] LABS: Lactic Acid Follow Up (RFLX 1) 1.6 mmol/L (0.7-2.1)
[2024-08-13] MEDS: SODIUM CHLORIDE 3% 15ML NEB 3 ML IH (18:29)
[2024-08-13 18:32] LABS: Troponin I < 0.01 ng/ml (0.00-0.034)
[2024-08-13 20:36] LABS: Hemoglobin A1C 8.9 % (4.0-6.0)
[2024-08-13] MEDS: GABAPENTIN 800MG TABLET 800 MG PO (21:41)
[2024-08-13] MEDS: INSULIN GLARGINE 100 UNITS/ML 3ML FLEXPEN 20 UNIT SUBCUT (21:41)
[2024-08-13] MEDS: TAMSULOSIN 0.4MG CAPSULE 0.4 MG PO (21:41)
[2024-08-13] MEDS: PATIENT'S OWN HOME MEDICATION (Trazodone 150 mg tablet) 150 EACH PO (21:46)
[2024-08-13 21:59] LABS: POC Glucose,Bedside 197 (70-110)
[2024-08-14] VITALS (9 sets, daily range): BP systolic 100–115; BP diastolic 46–59; PULSE 5–89; RESP 14–20; TEMP 36.6–36.9; O2SAT 93–98; BMI 28.0
[2024-08-14] MEDS: PIPERACILLIN/TAZO 4.5 GM in 0.9 % SODIUM CHLORIDE 100 ML IV ×5 (00:26→23:30)
[2024-08-14 06:23] LABS: POC Glucose,Bedside 56 (70-110)
--- NOTE | 2024-08-14 06:31 | PC.NURSE ---
v/s, ox4, 2LNC satting in 90's. Blood glucose monitored. No acute events to report. plan of care ongoing.
--- NOTE | 2024-08-14 06:40 | PC.NURSE ---
pt's blood sugar this morning was 56. pt was given two cups of grape juice with added sugar. Rechecked blood sugar 20 minutes later. Blood sugar was 101. blood sugar continued to be monitored.
[2024-08-14 06:49] LABS: Hematocrit 32.8 % (42.0-52.0); Hemoglobin 9.7 g/dL (14.1-18.0); Immature Granulocytes % 0.3 %; Mean Corpuscular HGB Conc 29.6 g/dL (31.8-35.4); Mean Corpuscular Hemoglobin 27.0 pg (27.0-31.2); Mean Corpuscular Volume 91.4 fl (80-94); Nucleated Red Blood Cells % 0 %; Platelet Count 101 K/mm3 (142-424); Red Blood Count 3.59 M/mm3 (4.60-6.20); Red Cell Distribution Width-SD 54.8 fL; White Blood Count 6.7 K/mm3 (4.8-10.8)
[2024-08-14 06:51] LABS: POC Glucose,Bedside 101 (70-110)
[2024-08-14 07:00] LABS: Alanine Aminotransferase 15 U/L (12-78); Albumin Level 3.2 g/dl (3.5-5.0); Albumin/Globulin Ratio 1.1 (1.1-1.8); Alkaline Phosphatase 67 U/L (38-126); Anion Gap 10.8 mEq/L (5-15); Aspartate Amino Transferase 23 U/L (17-59); Bilirubin,Total 0.8 mg/dl (0.2-1.3); Blood Urea Nitrogen 14 mg/dl (9-20); Calcium 9.0 mg/dl (8.4-10.2); Carbon Dioxide 34 mmol/L (22.0-30.0); Chloride 100 mmol/L (98-107); Creatinine Clearance Estimated 79 mL/min (50-200); Creatinine,Serum 1.00 mg/dl (0.66-1.25); Estimated Glomerular Filt Rate 74 ml/min (>60); GFR (African American) 89 ML/MIN (>60); Globulin 2.9 g/dL (1.3-3.2); Glucose 63 mg/dl (74-100); Magnesium 1.8 mg/dl (1.6-2.3); Phosphorous 3.3 mg/dl (2.5-4.5); Potassium 3.8 mmoL/L (3.5-5.1); Sodium 141 mmol/L (136-145); Total Protein,Serum 6.1 g/dl (6.3-8.2)
[2024-08-14 07:53] LABS: Procalcitonin 2.52 ng/mL (0.0-2.0)
--- NOTE | 2024-08-14 08:38 | HMH.PHAINT1 ---
Pharmacy Intervention Comments: HOME MEDICATION LIST VERIFIED USING LIST FROM OUTPATIENT PHARMACY AND PT INTERVIEW
--- NOTE | 2024-08-14 09:29 | EXP.PULM.CON ---
History of Present Illness History of present illness: Mr. Gold is a 68-year-old male no significant smoking history, reported history of type 1 diabetes mellitus, recurrent pneumonia chronic gout GERD hypothyroidism recurrent pneumonia presented today with worsening respiratory distress and pulmonary was called for further evaluation and management. Patient has a recent admission to an outside hospital for pneumonia and discharged home on Augmentin. [facility] Disclaimer: The information contained in this section may have been updated after the patient was seen, as this information can be updated by other users. Medical History (Updated 08/14/24 @ 15:30 by Delbert Huber MD) Bronchiectasis Bronchiectasis type 1 Recurrent bacterial pneumonia Staphylococcal pneumonia Recurrent pneumonia Diastolic CHF, acute Bilateral lower extremity edema Pneumonia COVID-19 CAD (coronary artery disease) GERD (gastroesophageal reflux disease) Hypothyroidism Hyperlipidemia Hypertension Insulin pump fitting or adjustment Fall Side effects of vaccination Type 1 diabetes mellitus with diabetic polyneuropathy Traumatic ecchymosis of ankle Cellulitis Laceration of lower leg Surgical History History of coronary artery bypass graft H/O thyroidectomy Total knee replacement status H/O bilateral hip replacements History of total right knee replacement (TKR) Family History Mother Coronary artery disease Father COVID-19 Social History Smoking Status: Never smoker alcohol intake: never substance use type: denies use current occupational status: employed Travel in the last 8 weeks?: None household members: spouse housing: house lives independently: Yes marital status: number of children: 5 education level: high school service: No retirement: No current occupation: [employer] diet: diabetic marianna/advent: [employer] Have you lived/traveled outside [place] in past 30 days?: No Contact w/someone who lives/traveled outside [place] past 30 days?: No Exposure to someone with infectious disease in past 14 days?: No Do you have a fever (greater than 100.4 F or 38 C)?: No Have you tested positive for COVID-19?: No Exposed to someone with COVID-19 in past 14 days?: No Do you have a sore throat?: No Do you have a cough?: No Do you have any weakness?: No Do you have any diarrhea?: No Are you experiencing any unusual bleeding?: No Do you have any muscle aches/pain?: No Do you have any abdominal pain?: No Are you experiencing loss of taste or smell?: No Review of Systems Constitutional Constitutional: Reports anorexia, Reports body ache(s) and Reports fatigue Eyes Eyes: Denies eye discharge, Denies dry eyes, Denies irritation and Denies itchy eyes ENT Ears, Nose, Mouth, and Throat: Denies epistaxis, Denies facial pain, Denies lip swelling and Denies throat swelling *Cardiovascular Cardiovascular: Reports dyspnea and Reports dyspnea on exertion *Respiratory Respiratory: Reports change in phlegm color, Reports chest congestion, Reports cough, Reports dyspnea, Reports dyspnea on exertion, Reports excessive phlegm production, Denies hemoptysis, Denies pain on inspiration and Denies pain with cough *Gastrointestinal Gastrointestinal: Denies abdominal pain, Denies belching and Denies cramping *Musculoskeletal Musculoskeletal: Reports back pain, Reports myalgias and Reports other (No small joint swelling or Pain) Psychiatric Psychiatric: Denies homicidal ideation and Denies suicidal ideation Endocrine Endocrine: Reports fatigue and Denies heat intolerance Hematologic/Lymphatic Hematologic/Lymphatic: Denies easy bleeding and Denies lymphadenopathy Allergic/Immunologic Allergic/Immunologic: Denies itchy eyes, Denies lip swelling and Denies throat swelling Pulmonology Exam Inpatient Vital signs and Labs for Last 24 Hours: Temp Pulse Resp BP Pulse Ox O2 Del Method O2 Flow Rate 98.0 F 70 16 104/58 L 98 Nasal Cannula 2 08/14/24 04:00 08/14/24 08:00 08/14/24 04:00 08/14/24 04:00 08/14/24 04:00 08/14/24 06:31 08/14/24 06:31 Laboratory Results - last 24 hr 08/13/24 12:41: Chlamy pneumoniae PCR Not detected, Adenovirus (PCR) Not detected, B. pertussis DNA (PCR) Not detected, Coronavirus OC43 (PCR) Not detected, Coronavirus HKU1 (PCR) Not detected, Coronavirus 229E (PCR) Not detected, SARS-CoV-2 (PCR) Not detected, Coronavirus NL63 (PCR) Not detected, Human Metapneumovir PCR Not detected, Influenza A (H1) PCR Not detected, Influ A (H1N1/09) PCR Not detected, Influenza A (H3) PCR Not detected, Influenza Type A (PCR) Not detected, Influenza Type B (PCR) Not detected, M. pneumoniae (PCR) Not detected, Parainfluenza 1 (PCR) Not detected, Parainfluenza 2 (PCR) Not detected, Parainfluenza 3 (PCR) Not detected, Parainfluenza 4 (PCR) Not detected, RSV (PCR) Not detected, Entero/Rhino (PCR) Not detected 08/13/24 13:15: WBC 12.8 H, RBC 3.78 L, Hgb 10.5 L, Hct 33.7 L, MCV 89.2, MCH 27.8, MCHC 31.2 L, RDW 16.5, Plt Count 120 L, MPV 9.2, Neut % (Auto) 84.8 H, Lymph % (Auto) 6.1 L, [place] % (Auto) 7.1, Eos % (Auto) 1.3, Baso % (Auto) 0.3, Neut # (Auto) 10.8 H, Lymph # (Auto) 0.8, [place] # (Auto) 0.9, Eos # (Auto) 0.2, Baso # (Auto) 0.0, PT 11.9, INR 1.08, VBG pH 7.38, VBG pCO2 46.0, VBG pO2 36.2, VBG HCO3 26.8, VBG Total CO2 28.3 H, VBG O2 Saturation 70.0, VBG Base Excess 1.8, VBG Lactic Acid 2.2 H, Sodium 134 L, Potassium 4.2, Chloride 94 L, Carbon Dioxide 30, Anion Gap 14.2, BUN 17, Creatinine 1.30 H, Estimated Creat Clear 58, Estimated GFR 55 L, Est GFR ( Amer) 66, Glucose 238 H, Hemoglobin A1c 8.9 H 08/13/24 13:15: Hemoglobin A1c 8.7 H, Lactate 2.1, Calcium 9.1, Magnesium 1.7, Total Bilirubin 1.2, AST 27, ALT 21, Alkaline Phosphatase 80, Troponin I 0.01, NT-Pro-B Natriuret Pep 1270 H, Total Protein 7.1, Albumin 3.9, Globulin 3.2, Albumin/Globulin Ratio 1.2, Procalcitonin 3.36 H, TSH 0.73 07/07/25 15:18: Troponin I 0.01 08/13/24 16:36: POC Glucose 249 H 08/13/24 17:55: Lactate 1.6, Troponin I < 0.01 08/13/24 21:40: POC Glucose 197 H 08/14/24 06:17: POC Glucose 56 L 08/14/24 06:31: WBC 6.7 D, RBC 3.59 L, Hgb 9.7 L, Hct 32.8 L, MCV 91.4, MCH 27.0, MCHC 29.6 L, RDW 16.3, Plt Count 101 L, MPV 9.1, Neut % (Auto) 63.3, Lymph % (Auto) 19.4, [place] % (Auto) 5.8, Eos % (Auto) 10.8, Baso % (Auto) 0.4, Neut # (Auto) 4.3, Lymph # (Auto) 1.3, [place] # (Auto) 0.4, Eos # (Auto) 0.7 H, Baso # (Auto) 0.0, Sodium 141, Potassium 3.8, Chloride 100, Carbon Dioxide 34 H, Anion Gap 10.8, BUN 14, Creatinine 1.00 D, Estimated Creat Clear 79, Estimated GFR 74, Est GFR ( Amer) 89 D, Glucose 63 L D, Calcium 9.0, Phosphorus 3.3, Magnesium 1.8, Total Bilirubin 0.8, AST 23, ALT 15 D, Alkaline Phosphatase 67, Total Protein 6.1 L, Albumin 3.2 L D, Globulin 2.9, Albumin/Globulin Ratio 1.1, Procalcitonin 2.52 H 08/14/24 06:44: POC Glucose 101 I & O for Labs for Last 24 Hours: Intake & Output 08/11/24 08/12/24 08/13/24 08/14/24 23:59 23:59 23:59 23:59 Intake Total 580 / 700 120 / 120 Output Total 0 / 600 1200 / 1200 Balance 580 / 100 -1080 / -1080 Weight 170 lb 178 lb 6 oz Constitutional: Present moderate distress Head: Present normocephalic and atraumatic ENT: Present normal exam, normal oropharynx and mucous membranes moist Neck: Present normal inspection and full ROM Respiratory: Present rhonchi, diminished air movement and able to speak in complete sentences; Absent wheezes Cardiac: Present S1/S2, Tachycardia and radial pulses present GI: Present soft and distention; Absent tenderness or guarding Skin: Present intact; Absent cyanosis or jaundice Neuro: Present alert, awake and oriented x 3 Extremities: Present normal inspection; Absent clubbing or cyanosis Psychiatric: Present normal affect and cooperative Meds Home Medications and Allergies Home Medications ?Medication ?Instructions ?Recorded ?Confirmed ?Type pen needle, diabetic 32 gauge x 11/09/23 03/19/24 History (BD Ultra-Fine Martine Pen Needle) clopidogrel 75 mg tablet 75 mg PO DAILY 11/29/23 08/13/24 History colchicine 0.6 mg tablet 0.6 mg PO BID 11/29/23 08/13/24 History colestipol 1 gram tablet 1 g PO BID 11/29/23 08/14/24 History donepezil 10 mg tablet 10 mg PO HS 11/29/23 08/14/24 History duloxetine 60 mg capsule,delayed 60 mg PO BID 11/29/23 08/14/24 History release hydroxychloroquine 200 mg tablet 200 mg PO BID 11/29/23 08/13/24 History insulin aspart U-100 100 unit/mL 8 - 12 unit SQ ACHS Diabetes 11/29/23 08/13/24 History (3 mL) subcutaneous pen (Novolog FlexPen U-100 Insulin aspart) potassium chloride 10 mEq 10 meq PO DAILY 11/29/23 08/13/24 History tablet,extended release(part/cryst) rosuvastatin 20 mg tablet 20 mg PO HS 11/29/23 08/14/24 History sucralfate 1 gram tablet 1 g PO BID 11/29/23 08/14/24 History trazodone 150 mg tablet 150 mg PO HS 11/29/23 08/13/24 History valacyclovir 500 mg tablet 500 mg PO DAILY 11/29/23 08/13/24 History allopurinol 300 mg tablet 300 mg PO DAILY 03/19/24 08/13/24 History furosemide 40 mg tablet 40 mg PO DAILY 03/19/24 08/13/24 History gabapentin 800 mg tablet 800 mg PO TID 03/19/24 08/13/24 History metoprolol succinate 25 mg 12.5 mg PO DAILY 03/19/24 08/14/24 History tablet,extended release 24 hr tamsulosin 0.4 mg capsule 0.4 mg PO BID 03/19/24 08/13/24 History aspirin 81 mg tablet 81 mg PO DAILY 08/13/24 08/13/24 History cetirizine 10 mg tablet (Zyrtec) 10 mg PO DAILY 08/13/24 08/13/24 History finasteride 5 mg tablet 5 mg PO DAILY 08/13/24 08/13/24 History insulin glargine U-300 conc 300 20 unit SQ DAILY 08/13/24 08/13/24 History unit/mL (1.5 mL) subcutaneous pen (Toujeo SoloStar U-300 Insulin) tizanidine 4 mg tablet 4 mg PO TIDP PRN MUSCLE SPASMS 08/13/24 08/14/24 History hydrocodone 10 mg-acetaminophen 1 tab PO Q6HP PRN Pain 08/14/24 08/14/24 History 325 mg tablet levothyroxine 150 mcg tablet 150 mcg PO DAILY 08/14/24 08/14/24 History New Prescriptions to Start Prescriptions: Allergies Allergy/AdvReac Type Severity Reaction Status Date / Time iodine (IODINE) Allergy Mild Verified 01/04/24 09:33 adhesive tape Allergy Verified 01/04/24 09:33 Results Laboratory Findings 08/14/24 06:31 08/14/24 06:31 PT/INR, D-dimer PT 11.9 seconds (10.1-12.5) 08/13/24 13:15 INR 1.08 (0.9-1.1) 08/13/24 13:15 Abnormal lab findings: Abnormal Labs 08/13/24 08/13/24 08/13/24 13:15 13:15 16:36 WBC 12.8 H RBC 3.78 L Hgb 10.5 L Hct 33.7 L MCHC 31.2 L Plt Count 120 L Neut % (Auto) 84.8 H Lymph % (Auto) 6.1 L Neut # (Auto) 10.8 H Eos # (Auto) VBG Total CO2 28.3 H VBG Lactic Acid 2.2 H Sodium 134 L Chloride 94 L Carbon Dioxide Creatinine 1.30 H Estimated GFR 55 L Glucose 238 H POC Glucose 249 H Hemoglobin A1c 8.9 H 8.7 H NT-Pro-B Natriuret Pep 1270 H Total Protein Albumin Procalcitonin 3.36 H 08/13/24 08/14/24 08/14/24 21:40 06:17 06:31 WBC RBC 3.59 L Hgb 9.7 L Hct 32.8 L MCHC 29.6 L Plt Count 101 L Neut % (Auto) Lymph % (Auto) Neut # (Auto) Eos # (Auto) 0.7 H VBG Total CO2 VBG Lactic Acid Sodium Chloride Carbon Dioxide 34 H Creatinine Estimated GFR Glucose 63 L D POC Glucose 197 H 56 L Hemoglobin A1c NT-Pro-B Natriuret Pep Total Protein 6.1 L Albumin 3.2 L D Procalcitonin 2.52 H Assessment and Plan *Assessment and plan (1) Bronchiectasis: Status: Acute Category: Medical Code(s): J47.9 - Bronchiectasis, uncomplicated (2) Pneumonia: Status: Acute Category: Medical Code(s): J18.9 - Pneumonia, unspecified organism Plan Mr. Gold is a 68-year-old male no significant smoking history, reported history of type 1 diabetes mellitus, recurrent pneumonia chronic gout GERD hypothyroidism recurrent pneumonia presented today with worsening respiratory distress and pulmonary was called for further evaluation and management. Patient has a recent admission to an outside hospital for pneumonia and discharged home on Augmentin. Patient also admits balance issues and frequent falls Patient has not been compliant with his flutter valve Protonix daily nebulization therapy Afebrile. Hemodynamically stable. Neutrophilic predominant leukocytosis upon admission, improving. CTA upon admission no pulmonary embolism. Bilateral lower lobe predominant dense consolidative changes left greater than right with small left pleural effusion. Chest x-ray from March 2024 right lower lobe airspace disease. CT abdomen from October 2023 bilateral lower lobe bronchiectasis right > left with left lower lobe airspace disease. CT chest from 2022 predominant right middle and lower lobe airspace disease. Sputum cultures from December 2021 during which patient reported COVID-19 pneumonia resulted positive for MRSA sensitive to Bactrim. Currently receiving Zosyn. Plan: Continue oxygen supplementation only as needed to maintain O2 saturation goal of 90% and above. Weaned to room air this morning. Recommend speech and swallow evaluation Albuterol ablation therapies, hypertonic saline and flutter chest percussion therapy twice a day Continue Zosyn pending sputum culture results. Follow with nasal MRSA PCR. Speech and swallow evaluation. Recently underwent modified barium swallow at [facility].
--- NOTE | 2024-08-14 09:43 | HMH.SLDYSPHA ---
Speech & Language Evaluation Speech/Language Dysphagia Evaluation Start: 08/14/24 09:18 Freq: ONCE Status: Active Protocol: Document 08/14/24 09:19 PHIL (Rec: 08/14/24 09:43 PHIL [id number]) Dysphagia Assess/Goals/Plan Assessment Date of Evaluation: 08/14/24 Evaluation Type Initial Certification Assessment/Problems aspiration risk per MD order Does Patient Qualify Yes for Service Qualify/Failure Based on CSE results, pt would benefit from skilled Comment speech therapy services to complete dysphagia exercises and f/u for diet tolerance. Recommendations PHYSICIAN CERTIFICATION: The specified therapy services are required, authorized, and reviewed every 30 days. Pt will be seen # 1 times/week for # weeks 4 Diet Recommendations Mechanical Soft Liquid Type Normal/Thin Recommendations SL Swallow Alt bite w/sip thru meal,High aspiration risk,Crush Guidelines meds as allowed*,Oral care pre/post meals,Reflux precautions Dysphagia Swallow Sitting Upright (90 deg),Turn Head Left,Small Bites and Precautions/ Sips,Alternate Liquids/Solids Strategies Plan Anticipate reaching 2 STG in # weeks Anticipate reaching 4 LTG in # weeks Pt/Guardian verbally Yes ack understanding of dx/prognosis/ goals G -code Required No STG-Other Comment/Non-Specific 1. Mr. Gold will complete lingual and labial oral motor exercises with 80% accuracy 2. Mr. Gold will complete pharyngeal strengthening exercises with 80% accuracy [place] Goals Diet MS chopped with Liquids Thin Liquids Pt will be able to Yes eat foods w/more normal consistency Qual of life will be Yes enhanced by eating/ drinking small amts Education Instructions Discussed and reviewed results of CSE and recent MBSS provided report from [facility], discussed diet recommendations, risks of aspiration and aspiration precautions, and compensatory strategies with pt and who expressed understanding. Pt/Caregiver able to Able to recall/restate recall information Reinforcement needed No Speech & Language HPI History Present Illness Description of INSTALLATION ENGINEER pulled following information from chart review, Mr Patient Eunice Gold's a 68-year-old male with type 1 diabetes, neuropathy, recurring pneumonia, chronic gout, GERD BPH , hypothyroid, and recurrent pneumonia. He presented to the ER due to worsening shortness of breath over the last 2 to 3 days. Most recently he was sick several weeks ago and fell at home down a flight of stairs while in [facility]. He was sent to [facility] and transferred to where he was admitted for approximately a week due to pneumonia. Ultimately discharged on oral antibiotics (Augmentin) and has been at home since recovering. On arrival he was more short of breath. Found to be hypoxic necessitating supplemental oxygen at 4 L to maintain sats above 90%. Patient was unsteady at home and weak. On workup in the ED, found to have white count of 12. 8, negative respiratory panel, Pro-Adelfo of 3.36, chest imaging showing prominent left lower lobe pneumonia with adjacent right lower lobe pneumonia as well. Kidney function at baseline. BNP elevated at 1200. Initiated on broad-spectrum antibiotics. Medicine consulted for admission and further care Arrival to the floor, patient appears comfortable. at bedside helping supplement history. Denies nausea or vomiting. Fell and bruised his left forearm today. Still has some residual bruising from his fall several weeks ago. Has been having some increased confusion over the past several months. States he has worked with speech therapy before after being asked about aspiration risk. Has had modified barium swallow previously and was told to turn his head to the left when he swallows. PMHx includes: Bronchiectasis type 1 Recurrent bacterial pneumonia Staphylococcal pneumonia Recurrent pneumonia Diastolic CHF, acute Bilateral lower extremity edema Pneumonia COVID-19 CAD (coronary artery disease) GERD (gastroesophageal reflux disease) Hypothyroidism Hyperlipidemia Hypertension Insulin pump fitting or adjustment Fall Side effects of vaccination Type 1 diabetes mellitus with diabetic polyneuropathy Traumatic ecchymosis of ankle Cellulitis Laceration of lower leg Chest CTA reports: FINDINGS: Patient is status post median sternotomy. There is diastases of the components of the sternum. The heart is normal in size. There are multiple small mediastinal lymph nodes. Prevascular lymph nodes measure up to 2.1 cm in greatest dimension. There are AP window lymph nodes measuring up to 1.8 cm. No pleural or pericardial effusion is identified. The thoracic aorta is normal in caliber with no focal aneurysm or dissection identified. There is no filling defect to suggest pulmonary embolism. Dense bibasilar consolidation is seen, left greater than right likely due to acute pneumonia or aspiration. Scarring or fibrosis is seen at the lung bases. The images of the upper abdomen demonstrate a benign left renal cyst measuring 2.6 cm. Patient is status postcholecystectomy. IMPRESSION: No evidence for PE on this exam. Dense bibasilar airspace infiltrates likely due to acute pneumonia or aspiration . Mediastinal adenopathy, favor reactive. Pt/Caregiver Pt received MBSS at dated 07/18/24 with two Concerns recommendations and they were as follows: Comfort-focused diet: pureed and thin liquids via small sips with cough and re-swallow after each sip. Acknowledging risk of aspiration likely to occur 2' pt' s dysphagia. Oral care recommended pre/post meals. Rehab-focused: NPO w/ alternate meals of nutrition and medication with continued f/u from speech. Reports dysphagia chronic in nature d/t esophageal strictures, recurrent pna, and requiring thickened liquids at baseline. Sips and chips with rigorous oral care q4h. Okay for snacks of puree/pudding from clean supply with head turn to left. Rehab Services Speech therapy Assessed Language Primary Language Croatian Therapy History Seen by other Yes therapists Who/When/ [facility] Outpatient Recommendations Other Specialists? Yes Who/When/ OT/PT at [facility] Recommendations General Information General Current Food NPO Consistancy Dentition Upper & Lower Dentures Oxygen Status Nasal Cannula Patient Orientation Person,Place,Time,Situation Ability to Follow Good Directions Communication No Impairment Ability Dysphagia:Food Presentation Evaluation Food Type Pureed,Mechanical Soft,Regular,Liquid,Pudding Normal/Thin Liquid Multiple swallow attempts,Delayed swallow,Coughing Response after swallow,Clears throat Pudding Consistency Multiple swallow attempts,Residual on tongue,Delayed Liquid Response swallow Dysphagia Evaluation Multiple swallow attempts,Residual on tongue,Delayed Pureed Food swallow Behavior Response Dysphagia Evaluation Difficulty chewing,Multiple swallow attempts,Residual Mechanical Soft on tongue,Delayed swallow,Coughing after swallow,Clears Food Behavior throat Response Dysphagia Evaluation Difficulty chewing,Multiple swallow attempts,Residual Regular Food on tongue,Delayed swallow,Coughing after swallow,Clears Behavior Response throat Dysphagia Evaluation Pt was seen sitting upright this AM for CSE. Summary present at bedside and pt was A&O x4, oral care provided prior to administering trials. Prior to beginning CSE, INSTALLATION ENGINEER discussed recent OP swallow eval with [facility] services as well as recent MBSS completed at [facility]. Pt reports he is noncompliant with comfort focused diet recommended following MBSS in home environment and reports he does not enjoy thickened liquids. INSTALLATION ENGINEER discussed aspiration risks and precautions with pt and and they expressed understanding. Pt reported to INSTALLATION ENGINEER that he had spoken with his MD regarding results of MBSS stating that he understood he was not in good health and ready to go and that if he choked he was okay with risk. He followed with saying he would be uninterested in a repeat MBSS at this time. INSTALLATION ENGINEER then completed CSE at bedside. He was given thin liquid trials with ice chips, spoonful of water, open cup/ straw sip, and subsequent sips from open cup and straw. Pt was observed to have audible swallow and delayed cough and throat clear. He was then given pudding and puree trials in which he required multiple swallow attempts to clear residuals in oral cavity. Lastly, he was given mechanical soft and regular trials--Van exhibited increased mastication time, difficulty chewing and forming bolus likely 2' fatigue ( states he also has problems with his teeth) and required multiple swallow attempts as well as a puree and liquid wash to clear oral residue. Pt exhibited coughing and throat clear following solid PO trials. INSTALLATION ENGINEER discussed observations of overt s/sxs of aspiration as well as discussing reports found from recent MBSS with pt and family. INSTALLATION ENGINEER recommended NPO with f/u MBSS during admission to determine safest diet and Obdulio was not interested at this time. INSTALLATION ENGINEER then discussed diet options with and pt and Van discussed that he would be open to MS chopped 2' slightly easier to chew and thin liquids. INSTALLATION ENGINEER will f/u to complete dysphagia exercises and f/u for diet tolerance. INSTALLATION ENGINEER requested access to MBSS completed at [facility] on following outpatient evaluation at [facility] on 07/30/24 and report was as follows: Oral phase WFL with severe pharyngeal dysphagia. Oral phase characterized by oral residual observed across consistencies. Pharyngeal phase characterized by impaired airway protection and pharyngeal inefficiency. Penetration observed before the swallow with thin liquids 2/2 mistiming. Penetration during the swallow with all liquid consistencies 2/2 reduced laryngeal vestibular closure. Collection of diffuse pharyngeal residue with all consistencies 2/2 reduced BOT retraction and pharyngeal contraction. Multiple effortful re-swallows and a chin tuck ineffective in reducing residue. Compensatory strategy of a head turn to left effective in reducing pharyngeal residue with pudding consistency. Due to inability to clear residue with liquids, penetration continued to occur after the swallow with nectar and honey thick liquids. Delayed initiation of the swallow to the laryngeal vestibule x1 trial. Obdulio was recently assessed at [facility] Outpatient services ( 07/30/24) and was given a variety of swallowing questionnaires and his scores were as follows: Reflux Severity Index- Total score - 24 (Normative data suggests that a RSI of greater than or equal to 13 is clinically significant and indicative of significant reflux disease) Eating Assessment Tool- Total score - 17 (A score of 15 or more indicates a patient is at risk for aspiration) PILL-5- Total score- 8 (Indicates pill swallowing is abnormal) Augie Elmore Dysphagia Inventory- Global score- 4 Composite score- 67 (Composite score ranges from 20, extremely low functioning, to 100, high functioning) Stroke Dysphagia Assessment PHYSICIAN CERTIFICATION: I certify the specified therapy services for Obdulio Gold are required, authorized, and reviewed every 30 days.
[2024-08-14] MEDS: GABAPENTIN 800MG TABLET 800 MG PO ×3 (09:48→20:17)
[2024-08-14] MEDS: CLOPIDOGREL 75MG TAB 75 MG PO (09:48)
[2024-08-14] MEDS: ASPIRIN EC 81MG TABLET 81 MG PO (09:48)
[2024-08-14] MEDS: FINASTERIDE 5MG TABLET 5 MG PO (09:48)
[2024-08-14] MEDS: LEVOTHYROXINE 150MCG (0.15MG)TAB 150 MCG PO (09:48)
[2024-08-14] MEDS: TAMSULOSIN 0.4MG CAPSULE 0.4 MG PO ×2 (09:48→20:17)
[2024-08-14] MEDS: METOPROLOL SUCCINATE XL 25MG TABLET 25 MG PO (09:48)
[2024-08-14] MEDS: ALLOPURINOL 300MG TABLET 300 MG PO (09:48)
[2024-08-14] MEDS: HYDROCODONE/APAP 5/325 MG TABLET 1 TAB PO ×2 (10:31→18:51)
--- NOTE | 2024-08-14 10:32 | HMH.PTEV ---
Physical Therapy Evaluation Rehab PT IP Evaluation Start: 08/13/24 17:31 Freq: ONCE Status: Active Protocol: Document 08/14/24 10:26 BEAU (Rec: 08/14/24 10:32 BEAU [id number]) Subjective/History History History Per H&P: Mr. Gold's a 68-year-old male with type 1 diabetes, neuropathy, recurring pneumonia, chronic gout , GERD BPH, hypothyroid, and recurrent pneumonia. He presented to the ER due to worsening shortness of breath over the last 2 to 3 days. Most recently he was sick several weeks ago and fell at home down a flight of stairs while in [facility]. He was sent to [facility] in [place] and transferred to where he was admitted for approximately a week due to pneumonia. Ultimately discharged on oral antibiotics ( Augmentin) and has been at home since recovering. On arrival he was more short of breath. Found to be hypoxic necessitating supplemental oxygen at 4 L to maintain sats above 90%. Patient was unsteady at home and weak. On workup in the ED, found to have white count of 12.8, negative respiratory panel, Pro-Adelfo of 3 .36, chest imaging showing prominent left lower lobe pneumonia with adjacent right lower lobe pneumonia as well. Kidney function at baseline. BNP elevated at 1200. Initiated on broad-spectrum antibiotics. Medicine consulted for admission and further care Arrival to the floor, patient appears comfortable. at bedside helping supplement history. Denies nausea or vomiting. Fell and bruised his left forearm today. Still has some residual bruising from his fall several weeks ago. Has been having some increased confusion over the past several months. States he has worked with speech therapy before after being asked about aspiration risk. Has had modified barium swallow previously and was told to turn his head to the left when he swallows. Subjective Subjective Pt reports he lives with his in a single-story home. Pt uses a RW for IND ambulation. PT is currently seeing pt in OP for balance deficits and frequent falls. Pt has care at home from if needed. [facility] How much help from another person do you currently need... Turning from your None back to your side while in a flat bed without using bedrails? Moving from lying on None back to sitting on the side of a flat bed without using bedrails? Moving to and from a None bed to a chair ( including a wheelchair)? Standing up from a None chair using your arms? (e.g., wheelchair, bedside chair) Walking in hospital A little room? Climbing 3-5 steps A little with a railing? Mobility Score 22 Mobility Level [facility] Mobility 7 Walk 25 feet or more Mobility Calculator Rehab PT IP Eval Objective Appearance Patient Behavior Appropriate,Cooperative Patient Orientation Person,Place Difficulty following none instructions Speech Pattern Clear Ambulation Patient Able to Yes Ambulate Ambulation Observation Ambulation Distance 50 (feet) Ambulation Assistive Rolling Walker Device Ambulation Ability Contact Guard/Hand Hold Balance Ability to Arise Able, uses arms to help Sitting Balance Steady, safe Standing Balance Steady, wide stance Dynamic Sitting Good Balance Ability Dynamic Standing Fair Balance Ability Transfers Bed Transfer Ability Supervision/Stand by Chair Transfer Supervision/Stand by Ability Sit to Stand Bed Supervision/Stand by Transfer Ability Rehab PT IP prob,goals,plan Problems Date of Evaluation: 08/14/24 Rehab Potential Rehab Potential Innapropriate for Skilled Therapy Discharge Plan PT Discharge Plan Pt most appropriate to d/c home when deemed medically necessary d/t current level of mobility, home set-up, and family support. Pt not appropriate for skilled acute care PT at this time d/t pt?s mobility being at baseline. Eval Complexity Eval Charge Codes 89154 - Moderate Complexity PHYSICIAN CERTIFICATION: I certify the specified therapy services for Obdulio Gold are required, authorized, and reviewed every 30 days.
--- NOTE | 2024-08-14 10:40 | HMH.OTEV ---
OT Inpatient Evaluation Rehab OT IP Evaluation Start: 08/13/24 17:31 Freq: ONCE Status: Active Protocol: Document 08/14/24 10:38 [facility] (Rec: 08/14/24 10:40 [facility] [id number]) Rehab OT IP Assessment Subjective History Per H&P: Mr. Gold'fazal a 68-year-old male with type 1 diabetes, neuropathy, recurring pneumonia, chronic gout , GERD BPH, hypothyroid, and recurrent pneumonia. He presented to the ER due to worsening shortness of breath over the last 2 to 3 days. Most recently he was sick several weeks ago and fell at home down a flight of stairs while in [facility]. He was sent to [facility] in [place] and transferred to where he was admitted for approximately a week due to pneumonia. Ultimately discharged on oral antibiotics ( Augmentin) and has been at home since recovering. On arrival he was more short of breath. Found to be hypoxic necessitating supplemental oxygen at 4 L to maintain sats above 90%. Patient was unsteady at home and weak. On workup in the ED, found to have white count of 12.8, negative respiratory panel, Pro-Adelfo of 3 .36, chest imaging showing prominent left lower lobe pneumonia with adjacent right lower lobe pneumonia as well. Kidney function at baseline. BNP elevated at 1200. Initiated on broad-spectrum antibiotics. Medicine consulted for admission and further care Arrival to the floor, patient appears comfortable. at bedside helping supplement history. Denies nausea or vomiting. Fell and bruised his left forearm today. Still has some residual bruising from his fall several weeks ago. Has been having some increased confusion over the past several months. States he has worked with speech therapy before after being asked about aspiration risk. Has had modified barium swallow previously and was told to turn his head to the left when he swallows. Subjective Pt reports he lives with his in a single-story home. Pt uses a RW for IND functional transfers Pt is independent with all ADLs: dressing, bathing, and feeding PT is currently seeing pt in OP for balance deficits and frequent falls. Pt has care at home from if needed. completes all IADLs Pt no longer drives. Objective Patient Orientation Person,Place,Birthday Right Upper WFL Extremity Gross ROM Left Upper Extremity WFL Gross ROM Bed Mobility bed mobility-scooting,bed mobility - supine/sit Assist Level Supervision/Stand by Transfer Training Sit/Stand Transfer Assist Level Supervision/Stand by Chair Transfer Supervision/Stand by Ability Chair Transfer Sit to/from Ambulatory Technique Chair Transfer Rolling Walker Assistive Devices Lower Body Dressing Standby Assistance Ability Rehab OT IP prob,goals,plan Problems Date of Evaluation: 08/14/24 Rehab Potential Rehab Potential Innapropriate for Skilled Therapy Discharge Plan OT Discharge Plan Pt most appropriate to d/c home when deemed medically necessary d/t current level of mobility, home set-up, and family support. Pt not appropriate for skilled acute care OT at this time d/t pt?s functional transfers and ADL independence being at baseline. Eval Complexity Eval Charge Codes 36624 - Moderate Complexity PHYSICIAN CERTIFICATION: I certify the specified therapy services for Obdulio Gold are required, authorized, and reviewed every 30 days.
[2024-08-14 11:27] LABS: POC Glucose,Bedside 232 (70-110)
[2024-08-14] MEDS: humaLOG 100 UNITS/ML 10ML VIAL (SSI) SUBCUT ×3 (11:31→20:17)
[2024-08-14] MEDS: SODIUM CHLORIDE 3% 15ML NEB 3 ML IH ×2 (11:31→18:17)
[2024-08-14] MEDS: ALBUTEROL 0.083% 2.5 MG/3 ML NEB IH ×2 (11:33→18:18)
[2024-08-14] MEDS: ACETAMINOPHEN 325MG TAB 650 MG PO (14:05)
--- NOTE | 2024-08-14 14:53 | EXP.PN ---
Subjective *Date: 08/14/24 *Time: 14:53 Interval history: Patient feeling better today, will continue Zosyn until final sputum cultures resulted. Exam Data for Last 24 hours Vital signs and Labs for Last 24 Hours: Temp Pulse Resp BP Pulse Ox O2 Del Method O2 Flow Rate 97.9 F 80 20 115/57 L 96 Nasal Cannula 2 08/14/24 08:00 08/14/24 11:48 08/14/24 11:48 08/14/24 08:00 08/14/24 11:48 08/14/24 13:05 08/14/24 13:05 Laboratory Results - last 24 hr 08/13/24 13:15: Hemoglobin A1c 8.9 H 08/13/24 13:15: Hemoglobin A1c 8.7 H, TSH 0.73 08/13/24 15:18: Troponin I 0.01 08/13/24 16:36: POC Glucose 249 H 08/13/24 17:55: Lactate 1.6, Troponin I < 0.01 08/13/24 21:40: POC Glucose 197 H 08/14/24 06:17: POC Glucose 56 L 08/14/24 06:31: WBC 6.7 D, RBC 3.59 L, Hgb 9.7 L, Hct 32.8 L, MCV 91.4, MCH 27.0, MCHC 29.6 L, RDW 16.3, Plt Count 101 L, MPV 9.1, Neut % (Auto) 63.3, Lymph % (Auto) 19.4, Bennett % (Auto) 5.8, Eos % (Auto) 10.8, Baso % (Auto) 0.4, Neut # (Auto) 4.3, Lymph # (Auto) 1.3, Bennett # (Auto) 0.4, Eos # (Auto) 0.7 H, Baso # (Auto) 0.0, Sodium 141, Potassium 3.8, Chloride 100, Carbon Dioxide 34 H, Anion Gap 10.8, BUN 14, Creatinine 1.00 D, Estimated Creat Clear 79, Estimated GFR 74, Est GFR ( Amer) 89 D, Glucose 63 L D, Calcium 9.0, Phosphorus 3.3, Magnesium 1.8, Total Bilirubin 0.8, AST 23, ALT 15 D, Alkaline Phosphatase 67, Total Protein 6.1 L, Albumin 3.2 L D, Globulin 2.9, Albumin/Globulin Ratio 1.1, Procalcitonin 2.52 H 08/14/24 06:44: POC Glucose 101 08/14/24 11:21: POC Glucose 232 H I & O for Last 24 hours: Intake & Output 08/11/24 08/12/24 08/13/24 08/14/24 23:59 23:59 23:59 23:59 Intake Total 580 / 700 360 / 360 Output Total 0 / 600 1200 / 1200 Balance 580 / 100 -840 / -840 Weight 77.111 kg 80.91 kg Microbiology Reports for the Last 24 Hours: Microbiology 08/13/24 12:56 Blood Blood Culture - Preliminary NO GROWTH AFTER 24 HOURS 08/13/24 12:56 Blood Blood Culture - Preliminary NO GROWTH AFTER 24 HOURS 08/13/24 12:00 Sputum - Expectorated Sputum Gram Stain - Final Constitutional Constitutional: no acute distress *Routine HEENT Exam Head: Present normocephalic Eye: Present EOMI and PERRL ENT: Present mucous membranes moist *Routine Neck Exam Neck: Present supple; Absent lymphadenopathy *Routine Respiratory Exam Respiratory: Present CTA bilaterally *Routine Cardiovascular Exam Cardiovascular: Present RRR *Routine Abdominal Exam Abdominal: Present soft and normoactive bowel sounds; Absent tenderness *Routine Extremities Exam Extremities: Absent cyanosis, clubbing or edema *Routine Skin Exam Skin: Present warm; Absent rash *Routine Neurological Exam Neurological: Present alert and oriented X3 Assessment and Plan *Assessment and plan (1) Sepsis without septic shock: Status: Acute Category: Medical Code(s): A41.9 - Sepsis, unspecified organism (2) Multifocal pneumonia: Status: Acute Category: Medical Code(s): J18.8 - Other pneumonia, unspecified organism (3) Acute hypoxemic respiratory failure: Status: Acute Category: Medical Code(s): J96.01 - Acute respiratory failure with hypoxia (4) Type 1 diabetes mellitus with diabetic polyneuropathy: Status: Chronic Category: Medical Code(s): E10.42 - Type 1 diabetes mellitus with diabetic polyneuropathy (5) Hypothyroidism: Status: Chronic Qualifiers: Hypothyroidism type: postoperative Qualified Code(s): E89.0 - Postprocedural hypothyroidism Category: Medical Code(s): E03.9 - Hypothyroidism, unspecified (6) Hypertension: Status: Chronic Qualifiers: Hypertension type: primary hypertension Qualified Code(s): I10 - Essential (primary) hypertension Category: Medical Code(s): I10 - Essential (primary) hypertension (7) Hyperlipidemia: Status: Chronic Qualifiers: Hyperlipidemia type: mixed hyperlipidemia Qualified Code(s): E78.2 - Mixed hyperlipidemia Category: Medical Code(s): E78.5 - Hyperlipidemia, unspecified (8) CAD (coronary artery disease): Status: Chronic Qualifiers: Coronary Disease-Associated Artery/Lesion type: [place] artery [place] vs. transplanted heart: [place] heart Associated angina: without angina Qualified Code(s): I25.10 - Atherosclerotic heart disease of [place] coronary artery without angina pectoris Category: Medical Code(s): I25.10 - Atherosclerotic heart disease of [place] coronary artery without angina pectoris (9) Gout: Status: Resolved Qualifiers: Gout site: toe Gout etiology: unspecified cause Chronicity: chronic Laterality: right Presence of tophus: without tophus Qualified Code(s): M1A.9XX0 - Chronic gout, unspecified, without tophus (tophi) Category: Medical Code(s): M10.9 - Gout, unspecified (10) Rheumatoid arthritis: Status: Chronic Qualifiers: Rheumatoid arthritis location: foot Rheumatoid factor presence: with rheumatoid factor Laterality: bilateral Qualified Code(s): M05.771 - Rheumatoid arthritis with rheumatoid factor of right ankle and foot without organ or systems involvement; M05.772 - Rheumatoid arthritis with rheumatoid factor of left ankle and foot without organ or systems involvement Category: Medical Code(s): M06.9 - Rheumatoid arthritis, unspecified Braden York 68-year-old male with history of diabetes, CAD, hypertension, chronic gout. He presented to the ER because of worsening shortness of breath over the past 24 hours prior to admission. Has recently been admitted within the past 4 to 6 weeks to for pneumonia. Has some concern for aspiration component. On arrival to the ER found to be septic with multifocal pneumonia. Initiated on broad-spectrum antibiotics. Medicine consulted for admission. Discussed case with ER physician, request admission for IV antibiotics and further workup due to new oxygen requirement. I decided to admit for further care. Necessitating inpatient management. Problems addressed as follows: Recurrent multifocal pneumonia suspected secondary to aspiration Sepsis Acute hypoxemic respiratory failure - Per review of chest CT has dense consolidation right and left lower lobes, highly suspicious for aspiration pneumonia. - Received azithromycin and ceftriaxone in the ED, transitioned to Zosyn 4.5 g every 6 hours - Sputum culture pending, blood cultures NGTD. - WBC improved to 6.7 from 12.8 yesterday. - Pro-Adelfo improved to 2.52 from 3.36. - Weaned to 2 L nasal cannula. - Pulmonology consulted, pending recommendations. ? Speech therapy consulted, recommend mechanical soft diet with normal/thin liquids. ? Patient feeling better today, waiting on final sputum cultures before dispo. Will continue Zosyn for now. - DuoNebs every 6 hours scheduled ? Follow-up CBC in the morning. Insulin-dependent diabetes -Continue basal bolus regimen. A1c obtained, 8.7. Was 8 3 months ago. - Continue insulin glargine 20 units nightly, sliding scale insulin ACHS - Okay to use Dexcom to confirm glucose - Glucose 238 on admission. No anion gap or concern for DKA. ? Follow-up BMP in the morning.. CAD Hypertension Hyperlipidemia - Continue home 81 daily, Plavix 75 mg daily, metoprolol 25 mg daily. Hold lisinopril 2.5 mg daily - holding statin in acute illness phase BPH: Tamsulosin 0.8 mg nightly Gout: Continue allopurinol 300 mg daily Memory: Continue donepezil 10 mg daily Holding hydroxychloroquine for RA due to acute infection Continue levothyroxine 125 mcg daily Continue pantoprazole 40 mg daily for GERD Continue gabapentin 800 mg 3 times daily for neuropathy DNR Diabetic diet Lovenox 40 mg subcu daily
[2024-08-14 16:50] LABS: POC Glucose,Bedside 391 (70-110)
--- NOTE | 2024-08-14 18:37 | PC.NURSE ---
pt is A&Ox4. pt has received chest percussion twice today to induce sputum. pt diet has been switched to mechanical soft per speech therapy. incentive spirometry has been ordered. pt has no other needs at this time. call light within reach.
[2024-08-14 19:57] LABS: POC Glucose,Bedside 379 (70-110)
[2024-08-14] MEDS: INSULIN GLARGINE 100 UNITS/ML 3ML FLEXPEN 20 UNIT SUBCUT (20:17)
[2024-08-14] MEDS: TRAZODONE 50MG TABLET 150 MG PO (20:17)
[2024-08-15] VITALS: BP 114/55; PULSE 59; RESP 16; TEMP 36.6; O2SAT 95
[2024-08-15 04:00] VITALS: BP 118/57; PULSE 67; RESP 16; TEMP 36.6; O2SAT 93; BMI 28.0
--- NOTE | 2024-08-15 05:44 | PC.NURSE ---
v/s, ox4. No acute events to report. Plan of care ongoing.
[2024-08-15] MEDS: PIPERACILLIN/TAZO 4.5 GM in 0.9 % SODIUM CHLORIDE 100 ML IV ×2 (06:08→10:50)
[2024-08-15] MEDS: LEVOTHYROXINE 150MCG (0.15MG)TAB 150 MCG PO (06:08)
[2024-08-15] MEDS: SODIUM CHLORIDE 3% 15ML NEB 3 ML IH (06:17)
[2024-08-15] MEDS: ALBUTEROL 0.083% 2.5 MG/3 ML NEB IH (06:17)
[2024-08-15 06:22] VITALS: PULSE 80; RESP 18; O2SAT 95
[2024-08-15 07:04] LABS: Hematocrit 32.2 % (42.0-52.0); Hemoglobin 9.7 g/dL (14.1-18.0); Immature Granulocytes % 0.4 %; Mean Corpuscular HGB Conc 30.1 g/dL (31.8-35.4); Mean Corpuscular Hemoglobin 27.5 pg (27.0-31.2); Mean Corpuscular Volume 91.2 fl (80-94); Nucleated Red Blood Cells % 0 %; Platelet Count 101 K/mm3 (142-424); Red Blood Count 3.53 M/mm3 (4.60-6.20); Red Cell Distribution Width-SD 54.2 fL; White Blood Count 4.9 K/mm3 (4.8-10.8)
[2024-08-15 07:21] LABS: Alanine Aminotransferase 15 U/L (12-78); Albumin Level 3.2 g/dl (3.5-5.0); Albumin/Globulin Ratio 1.0 (1.1-1.8); Alkaline Phosphatase 70 U/L (38-126); Anion Gap 12.5 mEq/L (5-15); Aspartate Amino Transferase 24 U/L (17-59); Bilirubin,Total 0.8 mg/dl (0.2-1.3); Blood Urea Nitrogen 9 mg/dl (9-20); Calcium 9.4 mg/dl (8.4-10.2); Carbon Dioxide 34 mmol/L (22.0-30.0); Chloride 102 mmol/L (98-107); Creatinine Clearance Estimated 79 mL/min (50-200); Creatinine,Serum 1.00 mg/dl (0.66-1.25); Estimated Glomerular Filt Rate 74 ml/min (>60); GFR (African American) 89 ML/MIN (>60); Globulin 3.1 g/dL (1.3-3.2); Glucose 106 mg/dl (74-100); Potassium 4.5 mmoL/L (3.5-5.1); Sodium 144 mmol/L (136-145); Total Protein,Serum 6.3 g/dl (6.3-8.2)
[2024-08-15 08:00] VITALS: BP 147/72; PULSE 73; RESP 18; TEMP 36.4; O2SAT 97
[2024-08-15] MEDS: ALLOPURINOL 300MG TABLET 300 MG PO (09:26)
[2024-08-15] MEDS: ASPIRIN EC 81MG TABLET 81 MG PO (09:26)
[2024-08-15] MEDS: CLOPIDOGREL 75MG TAB 75 MG PO (09:26)
[2024-08-15] MEDS: FINASTERIDE 5MG TABLET 5 MG PO (09:27)
[2024-08-15] MEDS: TAMSULOSIN 0.4MG CAPSULE 0.4 MG PO (09:27)
[2024-08-15] MEDS: METOPROLOL SUCCINATE XL 25MG TABLET 25 MG PO (09:27)
[2024-08-15] MEDS: GABAPENTIN 800MG TABLET 800 MG PO ×2 (09:27→13:24)
[2024-08-15] MEDS: HYDROCODONE/APAP 5/325 MG TABLET 1 TAB PO (09:27)
--- NOTE | 2024-08-15 09:55 | EXP.PULM.PN ---
Subjective *Date: 08/15/24 *Time: 11:46 Interval history: No acute respiratory vents overnight. Patient denies any new respiratory complaints Pulmonology Exam Inpatient Vital signs and Labs for Last 24 Hours: Temp Pulse Resp BP Pulse Ox O2 Del Method O2 Flow Rate 97.5 F L 73 18 147/72 H 97 Nasal Cannula 2 08/15/24 08:00 08/15/24 08:00 08/15/24 08:00 08/15/24 08:00 08/15/24 08:00 08/15/24 09:00 08/15/24 09:00 Laboratory Results - last 24 hr 08/14/24 11:21: POC Glucose 232 H 08/14/24 16:43: POC Glucose 391 H* 08/14/24 19:46: POC Glucose 379 H* 08/15/24 06:18: WBC 4.9 D, RBC 3.53 L, Hgb 9.7 L, Hct 32.2 L, MCV 91.2, MCH 27.5, MCHC 30.1 L, RDW 16.3, Plt Count 101 L, MPV 9.5, Neut % (Auto) 53.5, Lymph % (Auto) 23.5, [place] % (Auto) 6.5, Eos % (Auto) 15.7 H, Baso % (Auto) 0.4, Neut # (Auto) 2.6, Lymph # (Auto) 1.2, [place] # (Auto) 0.3, Eos # (Auto) 0.8 H, Baso # (Auto) 0.0, Sodium 144, Potassium 4.5, Chloride 102, Carbon Dioxide 34 H, Anion Gap 12.5, BUN 9 D, Creatinine 1.00, Estimated Creat Clear 79, Estimated GFR 74, Est GFR ( Amer) 89, Glucose 106 H D, Calcium 9.4, Total Bilirubin 0.8, AST 24, ALT 15, Alkaline Phosphatase 70, Total Protein 6.3, Albumin 3.2 L, Globulin 3.1, Albumin/Globulin Ratio 1.0 L Temp Pulse Resp BP Pulse Ox O2 Del Method O2 Flow Rate 98.0 F 70 16 104/58 L 98 Nasal Cannula 2 08/14/24 04:00 08/14/24 08:00 08/14/24 04:00 08/14/24 04:00 08/14/24 04:00 08/14/24 06:31 08/14/24 06:31 Laboratory Results - last 24 hr 08/13/24 12:41: Chlamy pneumoniae PCR Not detected, Adenovirus (PCR) Not detected, B. pertussis DNA (PCR) Not detected, Coronavirus OC43 (PCR) Not detected, Coronavirus HKU1 (PCR) Not detected, Coronavirus 229E (PCR) Not detected, SARS-CoV-2 (PCR) Not detected, Coronavirus NL63 (PCR) Not detected, Human Metapneumovir PCR Not detected, Influenza A (H1) PCR Not detected, Influ A (H1N1/09) PCR Not detected, Influenza A (H3) PCR Not detected, Influenza Type A (PCR) Not detected, Influenza Type B (PCR) Not detected, M. pneumoniae (PCR) Not detected, Parainfluenza 1 (PCR) Not detected, Parainfluenza 2 (PCR) Not detected, Parainfluenza 3 (PCR) Not detected, Parainfluenza 4 (PCR) Not detected, RSV (PCR) Not detected, Entero/Rhino (PCR) Not detected 08/13/24 13:15: WBC 12.8 H, RBC 3.78 L, Hgb 10.5 L, Hct 33.7 L, MCV 89.2, MCH 27.8, MCHC 31.2 L, RDW 16.5, Plt Count 120 L, MPV 9.2, Neut % (Auto) 84.8 H, Lymph % (Auto) 6.1 L, [place] % (Auto) 7.1, Eos % (Auto) 1.3, Baso % (Auto) 0.3, Neut # (Auto) 10.8 H, Lymph # (Auto) 0.8, [place] # (Auto) 0.9, Eos # (Auto) 0.2, Baso # (Auto) 0.0, PT 11.9, INR 1.08, VBG pH 7.38, VBG pCO2 46.0, VBG pO2 36.2, VBG HCO3 26.8, VBG Total CO2 28.3 H, VBG O2 Saturation 70.0, VBG Base Excess 1.8, VBG Lactic Acid 2.2 H, Sodium 134 L, Potassium 4.2, Chloride 94 L, Carbon Dioxide 30, Anion Gap 14.2, BUN 17, Creatinine 1.30 H, Estimated Creat Clear 58, Estimated GFR 55 L, Est GFR ( Amer) 66, Glucose 238 H, Hemoglobin A1c 8.9 H 08/13/24 13:15: Hemoglobin A1c 8.7 H, Lactate 2.1, Calcium 9.1, Magnesium 1.7, Total Bilirubin 1.2, AST 27, ALT 21, Alkaline Phosphatase 80, Troponin I 0.01, NT-Pro-B Natriuret Pep 1270 H, Total Protein 7.1, Albumin 3.9, Globulin 3.2, Albumin/Globulin Ratio 1.2, Procalcitonin 3.36 H, TSH 0.73 08/13/24 15:18: Troponin I 0.01 08/13/24 16:36: POC Glucose 249 H 08/13/24 17:55: Lactate 1.6, Troponin I < 0.01 08/13/24 21:40: POC Glucose 197 H 08/14/24 06:17: POC Glucose 56 L 08/14/24 06:31: WBC 6.7 D, RBC 3.59 L, Hgb 9.7 L, Hct 32.8 L, MCV 91.4, MCH 27.0, MCHC 29.6 L, RDW 16.3, Plt Count 101 L, MPV 9.1, Neut % (Auto) 63.3, Lymph % (Auto) 19.4, [place] % (Auto) 5.8, Eos % (Auto) 10.8, Baso % (Auto) 0.4, Neut # (Auto) 4.3, Lymph # (Auto) 1.3, [place] # (Auto) 0.4, Eos # (Auto) 0.7 H, Baso # (Auto) 0.0, Sodium 141, Potassium 3.8, Chloride 100, Carbon Dioxide 34 H, Anion Gap 10.8, BUN 14, Creatinine 1.00 D, Estimated Creat Clear 79, Estimated GFR 74, Est GFR ( Amer) 89 D, Glucose 63 L D, Calcium 9.0, Phosphorus 3.3, Magnesium 1.8, Total Bilirubin 0.8, AST 23, ALT 15 D, Alkaline Phosphatase 67, Total Protein 6.1 L, Albumin 3.2 L D, Globulin 2.9, Albumin/Globulin Ratio 1.1, Procalcitonin 2.52 H 08/14/24 06:44: POC Glucose 101 I & O for Labs for Last 24 Hours: Intake & Output 08/12/24 08/13/24 08/14/24 08/15/24 23:59 23:59 23:59 23:59 Intake Total 580 / 700 800 / 1040 600 / 600 Output Total 0 / 600 2125 / 2975 2650 / 2650 Balance 580 / 100 -1325 / -1935 -2050 / -2050 Weight 170 lb 178 lb 6 oz 178 lb 6 oz Intake & Output 08/11/24 08/12/24 08/13/24 08/14/24 23:59 23:59 23:59 23:59 Intake Total 580 / 700 120 / 120 Output Total 0 / 600 1200 / 1200 Balance 580 / 100 -1080 / -1080 Weight 170 lb 178 lb 6 oz Microbiology Reports for the Last 24 Hours: Microbiology 08/13/24 12:00 Sputum - Expectorated Sputum Gram Stain - Final 08/13/24 12:00 Sputum - Expectorated Sputum Sputum Culture - Preliminary 08/13/24 12:56 Blood Blood Culture - Preliminary NO GROWTH AFTER 24 HOURS 08/13/24 12:56 Blood Blood Culture - Preliminary NO GROWTH AFTER 24 HOURS Constitutional: Present mild distress Head: Present normocephalic and atraumatic ENT: Present normal exam, normal oropharynx and mucous membranes moist Neck: Present normal inspection and full ROM Respiratory: Present rhonchi, diminished air movement and able to speak in complete sentences; Absent wheezes Cardiac: Present S1/S2, Tachycardia and radial pulses present GI: Present soft and distention; Absent tenderness or guarding Skin: Present intact; Absent cyanosis or jaundice Neuro: Present alert, awake and oriented x 3 Extremities: Present normal inspection; Absent clubbing or cyanosis Psychiatric: Present normal affect and cooperative Assessment and Plan *Assessment and plan (1) Bronchiectasis: Status: Acute Category: Medical Code(s): J47.9 - Bronchiectasis, uncomplicated (2) Pneumonia: Status: Acute Category: Medical Code(s): J18.9 - Pneumonia, unspecified organism Plan Mr. Gold is a 68-year-old male no significant smoking history, reported history of type 1 diabetes mellitus, recurrent pneumonia chronic gout GERD hypothyroidism recurrent pneumonia presented today with worsening respiratory distress and pulmonary was called for further evaluation and management. Patient has a recent admission to an outside hospital for pneumonia and discharged home on Augmentin. Patient also admits balance issues and frequent falls Patient has not been compliant with his flutter valve Protonix daily nebulization therapy Afebrile. Hemodynamically stable. Neutrophilic predominant leukocytosis upon admission, improving. CTA upon admission no pulmonary embolism. Bilateral lower lobe predominant dense consolidative changes left greater than right with small left pleural effusion. Chest x-ray from March 2024 right lower lobe airspace disease. CT abdomen from October 2023 bilateral lower lobe bronchiectasis right > left with left lower lobe airspace disease. CT chest from 2022 predominant right middle and lower lobe airspace disease. Sputum cultures from December 2021 during which patient reported COVID-19 pneumonia resulted positive for MRSA sensitive to Bactrim. Currently receiving Zosyn. Plan: Continue oxygen supplementation only as needed to maintain O2 saturation goal of 90% and above. Weaned to room air this morning. Wean antibiotics to Bactrim DS BID to complete a total of 14-day course High risk for aspiration.Rp Speech and swallow evaluation and recommendations prior to discharge. Recently underwent modified barium swallow at [facility]. Continue aspiration precautions Continue albuterol ablation therapies, hypertonic saline and flutter chest percussion therapy twice a day. Continue upon discharge with flutter valve. Will arrange for chest vest as an outpatient basis # # Thank you for involving pulmonary in this patient care. Will follow the patient in pulmonary clinic 1 to 2 weeks postdischarge with a chest x-ray PA lateral prior to clinic
[2024-08-15 10:28] LABS: Procalcitonin 1.42 ng/mL (0.0-2.0)
[2024-08-15] MEDS: humaLOG 100 UNITS/ML 10ML VIAL (SSI) SUBCUT (10:52)
--- NOTE | 2024-08-15 13:06 | EXP.DC.SUM ---
General Admission date:: 08/13/24 HPI HPI HPI: Mr. Gold's a 68-year-old male with type 1 diabetes, neuropathy, recurring pneumonia, chronic gout, GERD BPH, hypothyroid, and recurrent pneumonia. He presented to the ER due to worsening shortness of breath over the last 2 to 3 days. Most recently he was sick several weeks ago and fell at home down a flight of stairs while in [facility]. He was sent to [facility] in [place] and transferred to where he was admitted for approximately a week due to pneumonia. Ultimately discharged on oral antibiotics (Augmentin) and has been at home since recovering. On arrival he was more short of breath. Found to be hypoxic necessitating supplemental oxygen at 4 L to maintain sats above 90%. Patient was unsteady at home and weak. On workup in the ED, found to have white count of 12.8, negative respiratory panel, Pro-Adelfo of 3.36, chest imaging showing prominent left lower lobe pneumonia with adjacent right lower lobe pneumonia as well. Kidney function at baseline. BNP elevated at 1200. Initiated on broad-spectrum antibiotics. Medicine consulted for admission and further care Arrival to the floor, patient appears comfortable. at bedside helping supplement history. Denies nausea or vomiting. Fell and bruised his left forearm today. Still has some residual bruising from his fall several weeks ago. Has been having some increased confusion over the past several months. States he has worked with speech therapy before after being asked about aspiration risk. Has had modified barium swallow previously and was told to turn his head to the left when he swallows. Hospital Course Hospital Course Hospital Course: Obdulio Gold 68-year-old male with history of diabetes, CAD, hypertension, chronic gout. He presented to the ER because of worsening shortness of breath over the past 24 hours prior to admission. Has recently been admitted within the past 4 to 6 weeks to for pneumonia. Has some concern for aspiration component. On arrival to the ER found to be septic with multifocal pneumonia. Initiated on broad-spectrum antibiotics. Medicine consulted for admission. Discussed case with ER physician, request admission for IV antibiotics and further workup due to new oxygen requirement. I decided to admit for further care. Necessitating inpatient management. Problems addressed as follows: Recurrent multifocal pneumonia suspected secondary to aspiration Sepsis Acute hypoxemic respiratory failure - Per review of chest CT has dense consolidation right and left lower lobes, highly suspicious for aspiration pneumonia. ? Clinically improved with Zosyn (initially ceftriaxone, azithromycin). Procalcitonin also improved. Weaned to 2 L nasal cannula. ? Speech therapy consulted, recommend mechanical soft diet with normal/thin liquids. ? Pulmonology consulted, recommended Bactrim DS twice daily for total of 14 days. ? Discharged with Bactrim DS twice daily for 12 more days. Insulin-dependent diabetes - Continue basal bolus regimen. A1c obtained, 8.7. - Continue insulin glargine 20 units nightly, sliding scale insulin ACHS. ? Will need further optimization with PCP. CAD Hypertension Hyperlipidemia - Continue home 81 daily, Plavix 75 mg daily, metoprolol 25 mg daily, lisinopril 2.5 mg, atorvastatin. BPH: Tamsulosin 0.8 mg nightly Gout: Continue allopurinol 300 mg daily Memory: Continue donepezil 10 mg daily Holding hydroxychloroquine for RA due to acute infection Continue levothyroxine 125 mcg daily Continue pantoprazole 40 mg daily for GERD Continue gabapentin 800 mg 3 times daily for neuropathy Exam Data for Last 24 hours Vital signs and Labs for Last 24 Hours: Temp Pulse Resp BP Pulse Ox O2 Del Method O2 Flow Rate 97.5 F L 73 18 147/72 H 97 Nasal Cannula 2 08/15/24 08:00 08/15/24 08:00 08/15/24 08:00 08/15/24 08:00 08/15/24 08:00 08/15/24 11:00 08/15/24 11:00 Laboratory Results - last 24 hr 08/14/24 16:43: POC Glucose 391 H* 08/14/24 19:46: POC Glucose 379 H* 08/15/24 06:18: WBC 4.9 D, RBC 3.53 L, Hgb 9.7 L, Hct 32.2 L, MCV 91.2, MCH 27.5, MCHC 30.1 L, RDW 16.3, Plt Count 101 L, MPV 9.5, Neut % (Auto) 53.5, Lymph % (Auto) 23.5, Wharton % (Auto) 6.5, Eos % (Auto) 15.7 H, Baso % (Auto) 0.4, Neut # (Auto) 2.6, Lymph # (Auto) 1.2, Wharton # (Auto) 0.3, Eos # (Auto) 0.8 H, Baso # (Auto) 0.0, Sodium 144, Potassium 4.5, Chloride 102, Carbon Dioxide 34 H, Anion Gap 12.5, BUN 9 D, Creatinine 1.00, Estimated Creat Clear 79, Estimated GFR 74, Est GFR ( Amer) 89, Glucose 106 H D, Calcium 9.4, Total Bilirubin 0.8, AST 24, ALT 15, Alkaline Phosphatase 70, Total Protein 6.3, Albumin 3.2 L, Globulin 3.1, Albumin/Globulin Ratio 1.0 L, Procalcitonin 1.42 I & O for Last 24 hours: Intake & Output 08/12/24 08/13/24 08/14/24 08/15/24 23:59 23:59 23:59 23:59 Intake Total 580 / 700 800 / 1040 600 / 600 Output Total 0 / 600 2125 / 2975 2650 / 2650 Balance 580 / 100 -1325 / -1935 -2050 / -205 Weight 77.111 kg 80.91 kg 80.91 kg Microbiology Reports for the Last 24 Hours: Microbiology 08/13/24 12:00 Sputum - Expectorated Sputum Gram Stain - Final 08/13/24 12:00 Sputum - Expectorated Sputum Sputum Culture - Preliminary 08/13/24 12:56 Blood Blood Culture - Preliminary NO GROWTH AFTER 24 HOURS 08/13/24 12:56 Blood Blood Culture - Preliminary NO GROWTH AFTER 24 HOURS Constitutional Constitutional: no acute distress *Routine HEENT Exam Head: Present normocephalic Eye: Present EOMI and PERRL ENT: Present mucous membranes moist *Routine Neck Exam Neck: Present supple; Absent lymphadenopathy *Routine Respiratory Exam Respiratory: Present CTA bilaterally *Routine Cardiovascular Exam Cardiovascular: Present RRR *Routine Abdominal Exam Abdominal: Present soft and normoactive bowel sounds; Absent tenderness *Routine Extremities Exam Extremities: Absent cyanosis, clubbing or edema *Routine Skin Exam Skin: Present warm; Absent rash *Routine Neurological Exam Neurological: Present alert and oriented X3 Results Data Completed and Pending Labs on day of discharge: Labs from last 24 hours 08/15/24 08/14/24 08/14/24 06:18 19:46 16:43 WBC 4.9 D RBC 3.53 L Hgb 9.7 L Hct 32.2 L MCV 91.2 MCH 27.5 MCHC 30.1 L RDW 16.3 Plt Count 101 L MPV 9.5 Neut % (Auto) 53.5 Lymph % (Auto) 23.5 Wharton % (Auto) 6.5 Eos % (Auto) 15.7 H Baso % (Auto) 0.4 Neut # (Auto) 2.6 Lymph # (Auto) 1.2 Wharton # (Auto) 0.3 Eos # (Auto) 0.8 H Baso # (Auto) 0.0 Sodium 144 Potassium 4.5 Chloride 102 Carbon Dioxide 34 H Anion Gap 12.5 BUN 9 D Creatinine 1.00 Estimated Creat Clear 79 Estimated GFR 74 Est GFR ( Amer) 89 Glucose 106 H D POC Glucose 379 H* 391 H* Calcium 9.4 Total Bilirubin 0.8 AST 24 ALT 15 Alkaline Phosphatase 70 Total Protein 6.3 Albumin 3.2 L Globulin 3.1 Albumin/Globulin Ratio 1.0 L Procalcitonin 1.42 Preliminary micro results at discharge 08/13/24 12:00 Sputum Culture - Preliminary Sputum - Expectorated Sputum 08/13/24 12:56 Blood Culture - Preliminary Blood NO GROWTH AFTER 24 HOURS 08/13/24 12:56 Blood Culture - Preliminary Blood NO GROWTH AFTER 24 HOURS DS: Diagnosis Discharge Diagnosis (1) Bronchiectasis: Status: Acute Code(s): J47.9 - Bronchiectasis, uncomplicated (2) Pneumonia: Status: Acute Code(s): J18.9 - Pneumonia, unspecified organism Meds Home Medications and Allergies Home Medications ?Medication ?Instructions ?Recorded ?Confirmed ?Type pen needle, diabetic 32 gauge x 11/09/23 08/15/24 History (BD Ultra-Fine Martine Pen Needle) clopidogrel 75 mg tablet 75 mg PO DAILY 11/29/23 08/23/24 History colchicine 0.6 mg tablet 0.6 mg PO BID 11/29/23 08/23/24 History colestipol 1 gram tablet 1 g PO BID 11/29/23 08/23/24 History donepezil 10 mg tablet 10 mg PO HS 11/29/23 08/23/24 History duloxetine 60 mg capsule,delayed 60 mg PO BID 11/29/23 08/23/24 History release hydroxychloroquine 200 mg tablet 200 mg PO BID 11/29/23 08/23/24 History insulin aspart U-100 100 unit/mL 8 - 12 unit SQ ACHS Diabetes 11/29/23 08/23/24 History (3 mL) subcutaneous pen (Novolog FlexPen U-100 Insulin aspart) potassium chloride 10 mEq 10 meq PO DAILY 11/29/23 08/23/24 History tablet,extended release(part/cryst) rosuvastatin 20 mg tablet 20 mg PO HS 11/29/23 08/23/24 History sucralfate 1 gram tablet 1 g PO BID 11/29/23 08/23/24 History trazodone 150 mg tablet 150 mg PO HS 11/29/23 08/23/24 History valacyclovir 500 mg tablet 500 mg PO DAILY 11/29/23 08/23/24 History allopurinol 300 mg tablet 300 mg PO DAILY 03/19/24 08/23/24 History furosemide 40 mg tablet 40 mg PO DAILY 03/19/24 08/23/24 History gabapentin 800 mg tablet 800 mg PO TID 03/19/24 08/23/24 History metoprolol succinate 25 mg 12.5 mg PO DAILY 03/19/24 08/23/24 History tablet,extended release 24 hr tamsulosin 0.4 mg capsule 0.4 mg PO BID 03/19/24 08/23/24 History aspirin 81 mg tablet 81 mg PO DAILY 08/13/24 08/23/24 History cetirizine 10 mg tablet (Zyrtec) 10 mg PO DAILY 08/13/24 08/23/24 History finasteride 5 mg tablet 5 mg PO DAILY 08/13/24 08/23/24 History insulin glargine U-300 conc 300 20 unit SQ DAILY 08/13/24 08/23/24 History unit/mL (1.5 mL) subcutaneous pen (Toujeo SoloStar U-300 Insulin) tizanidine 4 mg tablet 4 mg PO TIDP PRN MUSCLE SPASMS 08/13/24 08/23/24 History hydrocodone 10 mg-acetaminophen 1 tab PO Q6HP PRN Pain 08/14/24 08/23/24 History 325 mg tablet levothyroxine 150 mcg tablet 150 mcg PO DAILY 08/14/24 08/23/24 History albuterol sulfate 2.5 mg/0.5 mL 2.5 mg (0.5 mL) inhalation Q6HP 08/15/24 08/23/24 Rx solution for nebulization PRN cough #30 ea sulfamethoxazole 800 1 tab PO BID 12 days #24 tabs 08/15/24 08/23/24 Rx mg-trimethoprim 160 mg tablet (Bactrim DS) albuterol sulfate 0.63 mg/3 mL 0.63 mg (3 mL) inhalation BID 08/23/24 08/23/24 Rx solution for nebulization shortness of breath or wheezing #270 mL fluticasone propionate 50 2 spray intranasal PRN 08/23/24 08/23/24 History mcg/actuation nasal spray,suspension sodium chloride 3.5 % for 4 ml inhalation BID 90 days #270 mL 08/23/24 08/23/24 Rx nebulization (Hyper-Luis) New Prescriptions to Start Prescriptions: albuterol sulfate Roberto Lara sulfamethoxazole-trimethoprim [Bactrim DS] Roberto Lara Allergies Allergy/AdvReac Type Severity Reaction Status Date / Time iodine (IODINE) Allergy Mild Verified 08/23/24 11:46 adhesive tape Allergy Verified 08/23/24 11:46 Discharge Plan Disposition Patient Disposition: Home, Self-Care Condition: Fair Discharge Order Discharge Orders: Discharge Order (Routine); Ordered 08/15/24 Ordered By: Roberto Lara Follow up Plan Follow up with: Delbert uHber MD [Physician, Pulmonology] - 08/23/24 11:40 am Prescriptions/Medication Reconciliation: New sulfamethoxazole-trimethoprim [Bactrim DS] 800-160 mg tablet 1 tab PO BID 12 Days Qty: 24 0RF albuterol sulfate 2.5 mg/0.5 mL solution for nebulization 2.5 mg inhalation Q6HP PRN (Reason: cough) Qty: 30 0RF Rx Instructions: for up to 3 doses Continued donepezil 10 mg tablet 10 mg PO HS sucralfate 1 gram tablet 1 g PO BID clopidogrel 75 mg tablet 75 mg PO DAILY valacyclovir 500 mg tablet 500 mg PO DAILY trazodone 150 mg tablet 150 mg PO HS hydroxychloroquine 200 mg tablet 200 mg PO BID colchicine 0.6 mg tablet 0.6 mg PO BID colestipol 1 gram tablet 1 g PO BID insulin aspart U-100 [Novolog FlexPen U-100 Insulin] 100 unit/mL (3 mL) insulin pen 8 - 12 unit SQ ACHS Patient Comments: Pt states he takes 8-12 units at meals and also uses Sliding scale in addition rosuvastatin 20 mg tablet 20 mg PO HS potassium chloride 10 mEq tablet,ER particles/crystals 10 meq PO DAILY duloxetine 60 mg capsule,delayed release(DR/EC) 60 mg PO BID furosemide 40 mg tablet 40 mg PO DAILY tamsulosin 0.4 mg capsule 0.4 mg PO BID gabapentin 800 mg tablet 800 mg PO TID allopurinol 300 mg tablet 300 mg PO DAILY metoprolol succinate 25 mg tablet extended release 24 hr 12.5 mg PO DAILY cetirizine [Zyrtec] 10 mg Tablet 10 mg PO DAILY aspirin 81 mg Tablet 81 mg PO DAILY finasteride 5 mg Tablet 5 mg PO DAILY tizanidine 4 mg tablet 4 mg PO TIDP PRN (Reason: MUSCLE SPASMS) insulin glargine U-300 conc [Toujeo SoloStar U-300 Insulin] 300 unit/mL (1.5 mL) insulin pen 20 unit SQ DAILY hydrocodone-acetaminophen 10-325 mg tablet 1 tab PO Q6HP PRN (Reason: Pain) Patient Comments: TAKE 1 TABLET BY MOUTH EVERY 6 HOURS levothyroxine 150 mcg tablet 150 mcg PO DAILY (DME) pen needle, diabetic [BD Ultra-Fine Martine Pen Needle] 32 gauge x 5/32 needle MISCELLANEOUS Patient Comments: USE 1 NEEDLE FOR INSULIN 4 TIMES DAILY WITH MEALS AND AT BEDTIME No Action fluticasone propionate 50 mcg/actuation spray,suspension 2 spray intranasal PRN albuterol sulfate 0.63 mg/3 mL solution for nebulization 0.63 mg inhalation BID Qty: 270 3RF Rx Instructions: To be used before hypertonic saline nebulization therapy. Hyper-Luis 3.5 % solution for nebulization 4 ml inhalation BID 90 Days Qty: 270 3RF Rx Instructions: 4 mL of 3% hypertonic saline nebulization every 12 hours every day to use with chest percussion therapy. This nebulization should be preceded by albuterol nebulization to avoid any bronchospasm. Problem Reconciliation Problems Reviewed?: Yes Patient Discharge Instructions Patient Instructions: DI for Sepsis -- Adult, DI for Respiratory Failure, Stop Light Pneumonia Print Language: Slovak Providers Primary Care Provider: Provider,Referral Admit Provider: Alfonso Borjas Attending Provider: Alfonso Borjas
[2024-08-15 19:06] LABS: POC Glucose,Bedside 193 (70-110)
[2024-08-15 19:08] LABS: POC Glucose,Bedside 344 (70-110)
--- NOTE | 2024-08-16 10:47 | SW/DCPLANNER ---
Spoke with patient on the phone. Patient stated that he is doing well. Patient stated that he is aware of his upcoming appointments. Patient stated that he was able to get his new medicine picked up from [facility]. Patient stated that he has no concerns or questions at this time. Zayda Pizarro
== END 2024-08-15 14:00 | disposition home or self-care (01) | DRG 871 ==
LOC: ER 14:24 → 2ND 15:23
PROVIDERS: Physician Assistant; Student in an Organized Health Care Education/Training Program; Admitting Provider Internal Medicine Adolescent Medicine; Emergency Provider Emergency Medicine; Visit Provider Internal Medicine Adolescent Medicine
DX: A41.9 Sepsis, unspecified organism (principal); J69.0 Pneumonitis due to inhalation of food and vomit; J96.01 Acute respiratory failure with hypoxia; J47.9 Bronchiectasis, uncomplicated; K21.9 Gastro-esophageal reflux disease without esophagitis; N40.0 Benign prostatic hyperplasia without lower urinary tract symptoms; E03.9 Hypothyroidism, unspecified; S50.12XA Contusion of left forearm, initial encounter; W19.XXXA Unspecified fall, initial encounter; E10.42 Type 1 diabetes mellitus with diabetic polyneuropathy; I10 Essential (primary) hypertension; E78.2 Mixed hyperlipidemia; I25.10 Atherosclerotic heart disease of native coronary artery without angina pectoris; M10.9 Gout, unspecified; M05.771 Rheumatoid arthritis with rheumatoid factor of right ankle and foot without organ or systems involvement; M05.772 Rheumatoid arthritis with rheumatoid factor of left ankle and foot without organ or systems involvement; Z66 Do not resuscitate; Y92.239 Unspecified place in hospital as the place of occurrence of the external cause; Z91.81 History of falling; Z87.01 Personal history of pneumonia (recurrent); Z91.148 Patient's other noncompliance with medication regimen for other reason; Z86.16 Personal history of COVID-19; Z79.02 Long term (current) use of antithrombotics/antiplatelets; Z79.4 Long term (current) use of insulin; Z79.82 Long term (current) use of aspirin; Z79.899 Other long term (current) drug therapy; Z91.041 Radiographic dye allergy status; Z91.048 Other nonmedicinal substance allergy status; Z95.5 Presence of coronary angioplasty implant and graft
CPT/HCPCS: 36415; 71275; 80053; 82803; 82962; 83036; 83605; 83735; 83880; 84100; 84145; 84443; 84484; 85025; 85610; 87040; 87070; 87077; 87081; 87205; 87633; 92610; 94640; 94667; 94668; 94761; 97162; 97166; J0456; J0696; J1650; J2543; J7030; J7050; Q9967

== ENCOUNTER 2024-08-20 14:00 | Outpatient (RCR) | payer MEDICARE, OTHER, SELFPAY | END 2024-08-20 23:59 | disposition home or self-care (01) | LOC: PT 14:00 | PROVIDERS: PCP Family Medicine; Visit Provider Family Medicine | DX: R53.1 Weakness (principal) | CPT/HCPCS: 97110; 97112; 97530 ==

== ENCOUNTER 2024-08-20 14:54 | Emergency (ER) | payer MEDICARE, OTHER, SELFPAY ==
--- OUTSIDE RECORDS SUMMARY | 2024-07-15 08:22 | XMS_ITS | Encounter Summary ---
Author Organization [facility] Address [address] [place] [address] Support Name Relationship Address Phone Stepan Gold Personal Relationship [address] [place] [address] Mi Gold Personal Relationship Unknown [phone] Rosalind Mai Personal Relationship Unknown [phone] Vivi Ward Personal Relationship Unknown [phone] Care Team Providers Care In Flight Technician Name Role Phone Willi Templeton MD Unavailable María Andre MD Unavailable Selene Rodriguez FLEECER Unavailable Mariah Flowers FLEECER Unavailable [phone] Neyda Beltran MD Unavailable Ryanne Roblero MD Unavailable Unavailable Mi Martin FLEECER Unavailable [phone] Elijah Serra DO Primary Care Provider [phone] Reason for Visit * Reason Comments Fall Encounter Details Date Type Department Care Team (Late st Contact Info) Description 07/15/2024 8:22 AM EDT - 07/15/2024 2:12 PM EDT Emergency Emergency Department [address] [place] [address] Carlota Huynh MD [facility] [place] [address] [place] [address] Multifocal pneumonia (Primary Dx); Hypoxemia Discharge Disposition: Home or Self Care Social History Tobacco Use Types Packs/Day Years Used Date Smoking Tobacco: Never Smokeless Tobacco: Never Alcohol Use Standard Drinks/Week Comments No 0 (1 standard drink = 0.6 oz pur e alcohol) OASIS D0700: Social Isolation Answer Da te Recorded Frequency of experiencing loneliness or isolatio n Never 04/29/2023 OASIS A1250: Transportation Answer Date Recorded Lack of Transportation (Medical) No 04/29/2023 Lack of Transportation (Non-Medical) No 04/29/2023 Patient Unable or Declines to Respond No 04/29/2023 OASIS B1300: Health Literacy Answer Terence e Recorded Frequency of needing help to read materials from doctor or pharmacy Never 04/29/2023 [facility] Utilities Answer Date Recorded In the past 12 months has th e [employer], gas, oil, or water [employer] threatened to shut off services in your home? No 04/02/2024 Humiliation, Afraid, Rape, and Kick questionnair e Answer Date Recorded Within the last year, have y ou been afraid of your partner or ex-partner? No 04/02/2024 Within the last year, have y ou been humiliated or emotionally abused in other ways by your partner or ex-partner? No Within the last year, have y ou been kicked, hit, slapped, or otherwise physically hurt by your partner or ex-partner? No 04/02/2024 Within the last year, have y ou been raped or forced to have any kind of sexual activity by your partner or ex-partner? No 04/02/2024 PHQ-2 Answer Date Recorded PHQ-2 SCORE 0 12/18/2022 Hunger Vital Sign Answer Date Recorded Within the past 12 months, y ou worried that your food would run out before you got the money to buy more. Never true 04/02/19 25 Within the past 12 months, t he food you bought just didn't last and you didn't have money to get more. Never true 04/02/2024 PRAPARE - Transportation Answer Date Re corded In the past 12 months, has l ack of transportation kept you from medical appointments or from getting medications? No 02/2 05/2024 In the past 12 months, has l ack of transportation kept you from meetings, work, or from getting things needed for daily living? No 04/02/2024 Housing Stability Vital Sign Answer Etrence e Recorded In the last 12 months, was t here a time when you were not able to pay the mortgage or rent on time? No 04/02/2024 In the past 12 months, how m any times have you moved where you were living? 0 04/02/2024 At any time in the past 12 m [facility], were you homeless or living in a usp (including now)? No 04/02/2024 Sex and Gender Information Value Date Recorded Sex Assigned at Not on file Legal Sex Male 9:48 PM EST Gender Identity Not on file Sexual Orientation Not on file documented as of this encounter Last Filed Vital Signs Vital Sign Reading Time Taken Comments Blood Pressure 100/69 07/15/2024 2:05 PM EDT Pulse 71 07/15/2024 2:05 PM EDT Temperature 36.6 C (97.8 F) 07/15/2024 2:11 PM EDT Respiratory Rate 17 07/15/2024 2:05 PM EDT Oxygen Saturation 98% 07/15/2024 2:05 PM EDT Inhaled Oxygen Concentration - - Weight 82.3 kg (181 lb 8 oz) 07/15/2024 8:30 AM EDT Height - - Body Mass Index 26.8 05/07/2024 11:32 AM EDT documented in this encounter Medications at Time of Discharge levothyroxine (SYNTHROID) 150 mcg tabletIndications:T SH elevation Take 1 Tablet by mouth Once Daily. 90 Tablet 3 5 TOUJEO SOLOSTAR U-300 INSULIN 300 unit/mL (1.5 mL) injectionIndication s:Type 1 diabetes mellitus with diabetic polyneuropathy (HCC) Administer 14 Units subcutaneously At bedtime. Please dispense 4.5 mL/3 pens per 3 mo supply - THIS IS A DOSE ADJUSTMENT - PLEASE REMOVE PREVIOUS DOSE FROM PROFILE 5 NOVOLOG FLEXPEN U-100 INSULIN 100 unit/mL (3 mL) sub-q penIndications:Type 1 diabetes mellitus with diabetic polyneuropathy (HCC) Administer 10-12 Units subcutaneously Three times a day with meals. Per carb countin unit/4 gm qam, 1 unit/5 gm qnoon, 1 unit/4 gm pm - MAX DOSE 36 UNITS DAILY - 45 mL/15 pens per 3 mo supply - THIS IS A DOSE ADJUSTMENT - PLEASE REMOVE PREVIOUS DOSE FROM PROFILE 45 mL 3 5 furosemide (LASIX) 40 mg tabletIndications:E andrea Take 1 Tablet by mouth Once daily as needed (weight gain of 2 pounds daily). Indications: visible water retention 90 Tablet 5 potassium chloride (KLOR-CON M10) 10 mEq tabletIndications:h ypokalemia prevention Take 1 Tablet by mouth Once daily as needed (take daily when lasix needed). Indications: prevention of low potassium in the blood 90 Tablet 5 traZODone (DESYREL) 150 mg tabletIndications:I nsomnia Take 1 Tablet by mouth At bedtime. Indications: difficulty sleeping 90 Tablet 5 tiZANidine (ZANAFLEX) 4 mg tabletIndications:D BONI (degenerative joint disease) Take 1 Tablet by mouth Every 8 hours as needed for Muscle spasms. 180 Tablet 2 5 tamsulosin (FLOMAX) 0.4 mg capsuleIndications: Benign Prostatic Hyperplasia Take 2 Caps by mouth Once Daily. Indications: enlarged prostate 60 Capsule 5 sucralfate (CARAFATE) 1 gram tabletIndications:g astroesophageal reflux disease Take 1 Tablet by mouth Before meals and at bedtime. Indications: gastroesophageal reflux disease 360 Tablet 5 rosuvastatin (CRESTOR) 20 mg tabletIndications:h ypercholesterolemia Take 1 Tablet by mouth At bedtime. Indications: high cholesterol 90 Tablet 5 diclofenac sodium (VOLTAREN) 1 % topical gelIndications:PNA (pneumonia) 2 g by Topical route Four times a day. 100 g 5 ipratropium-albuter oL (DUO-NEB) 0.5 mg-3 mg(2.5 mg base)/3 mL nebulizer solutionIndications :PNA (pneumonia) Take 3 mL by nebulization Every 6 hours as needed for Wheezing. 120 Each 5 Budesonide-Formoter ol (SYMBICORT 160-4.5 MCG) 160-4.5 mcg/Actuation inhalerIndications: Pneumonia due to infectious organism, unspecified laterality, unspecified part of lung Take 2 Puffs by inhalation Twice a day. 1 Each 5 allopurinoL (ZYLOPRIM) 300 mg tablet Take 300 mg by mouth Once Daily. Gabapentin (NEURONTIN) 800 mg tablet Take 800 mg by mouth Once Daily. Gabapentin (NEURONTIN) 800 mg tablet Take 1,600 mg by mouth At bedtime. metoprolol succinate ER (TOPROL XL) 25 mg 24 hr tablet Take 12.5 mg by mouth Once Daily. colchicine (COLCRYS) 0.6 mg tabletIndications:p revention of acute gout attack Take 0.6 mg by mouth Once Daily. Indications: treatment to prevent acute gout attack colestipoL (COLESTID) 1 gram tablet Take 1 g by mouth Twice a day. Donepezil (ARICEPT) 10 mg Tab Take 10 mg by mouth Once Daily. finasteride (PROSCAR) 5 mg tablet Take 5 mg by mouth Once Daily. valACYclovir (VALTREX) 500 mg tablet Take 500 mg by mouth Once Daily. Insulin [place], Disposable, (PEN NEEDLE) 32 gauge x /32 NdleIndications:Typ e 1 diabetes mellitus with diabetic polyneuropathy (HCC) 1 Each With meals and at bedtime. 400 Each 3 4 aspirin (ASPIRIN) [address] tabletIndications:C erebral Thromboembolism Prevention Take 81 mg by mouth Once Daily. Indications: prevention for a blood clot going to the brain DULoxetine (CYMBALTA) [address] capsuleIndications: Diabetic Peripheral Neuropathy Take 60 mg by mouth Once Daily. Indications: diabetic complication causing injury to some body nerves hydrOXYchloroQUINE (PLAQUENIL) 200 mg tabletIndications:R heumatoid Arthritis Take 400 mg by mouth At bedtime. Indications: rheumatoid arthritis famotidine (PEPCID) 20 mg tabletIndications:D yspepsia Prevention Take 40 mg by mouth Once Daily. Indications: prevent indigestion magnesium oxide (MAG-OX) 400 mg tabletIndications:h ypomagnesemia Take 400 mg by mouth Twice a day. Indications: low amount of magnesium in the blood HYDROcodone-acetami nophen (NORCO) 5-325 mg per tabletIndications:P ain Take 1 Tablet by mouth Every 4 to 6 Hours as needed for Pain. Indications: pain diphenoxylate-atrop ine (LOMOTIL) 2.5-0.025 mg per tabletIndications:d iarrhea Take 1 Tablet by mouth Every 6 hours as needed for Diarrhea. Indications: diarrhea fluticasone propionate (FLONASE) 50 mcg/Actuation nasal sprayIndications:Al lergic Rhinitis [place] 2 Sprays in nose Once Daily. (in each nostril) 3 Each 3 2 clopidogreL (PLAVIX) 75 mg tabletIndications:C erebral Thromboembolism Prevention Take 1 Tablet by mouth Daily. 90 Tablet 3 2 fluocinonide (LIDEX) 0.05 % ointmentIndications :Contact dermatitis, unspecified contact dermatitis type, unspecified trigger Apply twice a day sparingly when necessary, lower legs 60 g 1 0 blood sugar diagnostic (ACCU-CHEK NEVIN PLUS TEST STRP) 1 Each Before meals and at bedtime. cetirizine (ZYRTEC) 10 mg tabletIndications:A llergic Rhinitis Take 1 Tab by mouth Daily. 30 Tab 3 8 lancets (ONETOUCH DELICA LANCETS) 33 gauge MiscIndications:Typ e 1 diabetes mellitus with diabetic neuropathic arthropathy (HCC) 1 Each As directed. Patient to check blood sugar as directed 3-4 times/day 360 Each 3 8 sodium chloride (SALINE NASAL MIST) 0.65 %Indications:Sinus drainage,Post-nasal drip,Nasal congestion,Acute recurrent frontal sinusitis [place] 2 Sprays in nose Every 4 hours as needed. 1 Package QS 8 documented as of this encounter Progress Notes * Melba Montesinos MD - 07/15/2024 11:22 AM EDT Px referred to us for admission. Had fall at home, hit head. CT head neg. CT L spine - no fracture.I saw px and he reported that he fell tumbling down a whole flight of stairs. Family did not witness fall, saw him after, but confirmed that it is a long flight of stairs that he fell from. He is awake, alert, no significant confusion. +skin tear on his arm. He is ill looking. R eye closed - surgical, chronic. and daughter in the room - prefer admission to . I explained to them that since the fall is traumatic in nature and unwitnessed, he will be best observed in a trauma center. Willd/w Dr. Huynh. documented in this encounter ED Notes * Carlota Huynh MD - 07/15/2024 2:12 PM EDT Obdulio Gold [[id number]] (M) - 68 y.o. Note Creation:07/15/2024 Encounter Date:07/15/2024 History Chief Complaint Patient presents with Fall 68 yo male with hx CAD, CHF and DM to the ED with and daughter at bedside for evaluation after tumbling down flight of stairs today- 12 steps. He did hit his head but no loss of consciousness.He uses cane at baseline. He also complained of low back pain and headache. Daughter is [employer] WORKER at [employer]. Cleaned and dressed abrasions to arms and left leg. States that he has had a productive cough fora month. He was started on Doxycyline approximately 6 weeks ago but denies any improvement. No chest pain, abdominal pain, confusion , emesis, focal neuro deficits. The history is provided by the patient, medical records and the EMS personnel. Past Medical History: Diagnosis Date Anemia Blood transfusion without reported diagnosis CAD (coronary artery disease) Chest pain CHF (congestive heart failure) Chronic kidney disease Community acquired pneumonia Diabetes type 1 Fall Gallstone Hyperlipidemia Hypertension MRSA infection 02/24/2017 respiratory culture MRSA nasal colonization 02/21/2017 Obesity (BMI 30.0-34.9) Osteoarthritis S/P CABG (coronary artery bypass graft) S/P coronary artery stent placement 2010 Sleep apnea Staph infection Thyroid disease Past Surgical History: Procedure Laterality Date ACT N/A 08/04/2016 ACT performed by Jose Ramon Rivera MD at [facility] CORONARY ATHERECTOMY 08/04/2016 Coronary Atherectomy performed by Jose Ramon Rivera MD at [facility] CORONARY INTERVENTION N/A 08/04/2016 Coronary intervention performed by Jose Ramon Rivera MD at [facility] DRUG-ELUTING STENT PLACEMENT N/A 08/04/2016 Drug-eluting stent placement performed by Jose Ramon Rivera MD at [facility] DRUG-ELUTING STENT PLACEMENT N/A 06/02/2009 CORONARY SANDY PLACEMENT performed by Horacio Sherman MD at [facility] HX BROKEN/FX BONES L HIP HX CAPSULE ENDOSCOPY N/A 08/12/2016 CAPSULE ENDOSCOPY (PILL CAM) performed by Willi Templeton MD [place] [facility] [place]X CARDIAC CATHETERIZATION HX CARDIAC SURGERY HX CHOLECYSTECTOMY HX COLONOSCOPY N/A 08/12/2016 COLONOSCOPY performed by Willi Templeton MD [place] [facility] HX COLONOSCOPY 08/11/2016 COLONOSCOPY, INCOMPLETE DUE TO POOR PREP performed by Willi Templeton MD at [facility] HX CORONARY ARTERY BYPASS GRAFT HX EGJ N/A 08/11/2016 EGD /C CYTOLOGY performed by Willi Templeton MD at [facility] HX EGJ N/A 08/11/2016 EGD /C BIOPSY performed by Willi Templeton MD at [facility] HX EGJ N/A 03/11/2016 EGD /C HP ONE BIOPSY performed by Willi Templeton MD at [facility] HX JOINT REPLACEMENT bilateral hip and right knee HX KNEE REPLACEMENT RIGHT HX STERNOTOMY partial HX THYROID SURGERY 1954 HX TONSILLECTOMY LEFT HEART CATH N/A 08/03/2016 Left heart cath performed by Jose Ramon Rivera MD at [facility] LEFT HEART CATH N/A 06/02/2009 LEFT HEART CATH performed by Horacio Sherman MD at [facility] Family History Problem Relation Name Age of Onset Heart Disease Mother Stroke Mother Elevated Lipids Mother Diabetes Mother Cancer Brother Elevated Lipids Brother Diabetes Brother Heart Disease Brother Renal Disease Brother Social History Tobacco Use Smoking status: Never Smokeless tobacco: Never Vaping Use Vaping status: Never Used Substance Use Topics Alcohol use: No Drug use: No Patient is not a tobacco user. No LMP for male patient. Allergies Allergen Reactions Iodinated Contrast Media Anaphylaxis Pt required premedication prior to receiving IV dye. Other Rash Tape Current Outpatient Medications on File Prior to Encounter Medication Sig levothyroxine (SYNTHROID) 150 mcg tablet Take 1 Tablet by mouth Once Daily. TOUJEO SOLOSTAR U-300 INSULIN 300 unit/mL (1.5 mL) injection Administer 14 Units subcutaneously At bedtime. Please dispense 4.5 mL/3 pens per 3 mo supply - THIS IS A DOSE ADJUSTMENT - PLEASE REMOVE PREVIOUS DOSE FROM PROFILE NOVOLOG FLEXPEN U-100 INSULIN 100 unit/mL (3 mL) sub-q pen Administer 10-12 Units subcutaneously Three times a day with meals. Per carb countin unit/4 gm qam, 1 unit/5 gm qnoon, 1 unit/4 gm pm - MAX DOSE 36 UNITS DAILY - 45 mL/15 pens per 3 mo supply - THIS IS A DOSE ADJUSTMENT - PLEASE REMOVE PREVIOUS DOSE FROM PROFILE furosemide (LASIX) 40 mg tablet Take 1 Tablet by mouth Once daily as needed (weight gain of 2 pounds daily). Indications: visible water retention potassium chloride (KLOR-CON M10) 10 mEq tablet Take 1 Tablet by mouth Once daily as needed (take daily when lasix needed). Indications: prevention of low potassium in the blood traZODone (DESYREL) 150 mg tablet Take 1 Tablet by mouth At bedtime. Indications: difficulty sleeping tiZANidine (ZANAFLEX) 4 mg tablet Take 1 Tablet by mouth Every 8 hours as needed for Muscle spasms. tamsulosin (FLOMAX) 0.4 mg capsule Take 2 Caps by mouth Once Daily. Indications: enlarged prostate sucralfate (CARAFATE) 1 gram tablet Take 1 Tablet by mouth Before meals and at bedtime. Indications: gastroesophageal reflux disease rosuvastatin (CRESTOR) 20 mg tablet Take 1 Tablet by mouth At bedtime. Indications: high cholesterol diclofenac sodium (VOLTAREN) 1 % topical gel 2 g by Topical route Four times a day. ipratropium-albuteroL (DUO-NEB) 0.5 mg-3 mg(2.5 mg base)/3 mL nebulizer solution Take 3 mL by nebulization Every 6 hours as needed for Wheezing. Budesonide-Formoterol (SYMBICORT 160-4.5 MCG) 160-4.5 mcg/Actuation inhaler Take 2 Puffs by inhalation Twice a day. allopurinoL (ZYLOPRIM) 300 mg tablet Take 300 mg by mouth Once Daily. Gabapentin (NEURONTIN) 800 mg tablet Take 800 mg by mouth Once Daily. Gabapentin (NEURONTIN) 800 mg tablet Take 1,600 mg by mouth At bedtime. metoprolol succinate ER (TOPROL XL) 25 mg 24 hr tablet Take 12.5 mg by mouth Once Daily. colchicine (COLCRYS) 0.6 mg tablet Take 0.6 mg by mouth Once Daily. Indications: treatment to prevent acute gout attack colestipoL (COLESTID) 1 gram tablet Take 1 g by mouth Twice a day. Donepezil (ARICEPT) 10 mg Tab Take 10 mg by mouth Once Daily. finasteride (PROSCAR) 5 mg tablet Take 5 mg by mouth Once Daily. valACYclovir (VALTREX) 500 mg tablet Take 500 mg by mouth Once Daily. Insulin [place], Disposable, (PEN NEEDLE) 32 gauge x Ndle 1 Each With meals and at bedtime. aspirin (ASPIRIN) [address] tablet Take 81 mg by mouth Once Daily. Indications: prevention for a blood clot going to the brain DULoxetine (CYMBALTA) [address] capsule Take 60 mg by mouth Once Daily. Indications: diabetic complication causing injury to some body nerves (Patient taking differently: Take 60 mg by mouth Twice a day. Indications: major depressive disorder) hydrOXYchloroQUINE (PLAQUENIL) 200 mg tablet Take 400 mg by mouth At bedtime. Indications: rheumatoid arthritis famotidine (PEPCID) 20 mg tablet Take 40 mg by mouth Once Daily. Indications: prevent indigestion (Patient taking differently: Take 40 mg by mouth As needed. Indications: prevent indigestion) magnesium oxide (MAG-OX) 400 mg tablet Take 400 mg by mouth Twice a day. Indications: low amount ofmagnesium in the blood HYDROcodone-acetaminophen (NORCO) 5-325 mg per tablet Take 1 Tablet by mouth Every 4 to 6 Hours as needed for Pain. Indications: pain diphenoxylate-atropine (LOMOTIL) 2.5-0.025 mg per tablet Take 1 Tablet by mouth Every 6 hours as needed for Diarrhea. Indications: diarrhea fluticasone propionate (FLONASE) 50 mcg/Actuation nasal spray [place] 2 Sprays in nose Once Daily. (in each nostril) clopidogreL (PLAVIX) 75 mg tablet Take 1 Tablet by mouth Daily. fluocinonide (LIDEX) 0.05 % ointment Apply twice a day sparingly when necessary, lower legs blood sugar diagnostic (ACCU-CHEK NEVIN PLUS TEST STRP) 1 Each Before meals and at bedtime. cetirizine (ZYRTEC) 10 mg tablet Take 1 Tab by mouth Daily. lancets ([employer] LANCETS) 33 gauge Misc 1 Each As directed. Patient to check blood sugar asdirected 3-4 times/day sodium chloride (SALINE NASAL MIST) 0.65 % [place] 2 Sprays in nose Every 4 hours as needed. Review of Systems Review of Systems Constitutional: Positive for activity change and fatigue. Negative for appetite change, chills and fever. HENT: Negative for facial swelling. Eyes: Negative for discharge. Respiratory: Positive for cough, shortness of breath and wheezing. Cardiovascular: Negative for chest pain. Gastrointestinal: Negative for abdominal pain. Endocrine: Negative for cold intolerance. Genitourinary: Negative for flank pain. Musculoskeletal: Positive for gait problem. Negative for joint swelling, neck pain and neck stiffness. Skin: Positive for wound. Negative for rash. Allergic/Immunologic: Positive for immunocompromised state. Neurological: Positive for weakness and headaches. Negative for syncope, speech difficulty and light-headedness. Hematological: Negative for adenopathy. Psychiatric/Behavioral: Negative for confusion. All other systems reviewed and are negative. Physical Exam ED Triage Vitals BP BP Manual or Automatic? Patient Position BP Location Heart Rate (Monitor) 07/15/24 0830 -- -- -- 07/15/24 0830 116/64 97 Pulse Pulse Source Respirations Temp Temp Source 07/15/24 0830 -- 07/15/24 0830 07/15/24 0830 07/15/24 0830 106 20 98.7 ??F (37.1 ??C) Oral SpO2 SPO2 Location O2 Delivery O2 Device O2 Flow Rate (l/min) 07/15/24 0830 -- -- -- -- (!) 89 % FIO2 (%) Pain Intensity 1 Exacerbated By Relieved By Quality -- 07/15/24 1154 -- -- -- 9 Duration -- Physical Exam Vitals and nursing note reviewed. Constitutional: General: He is not in acute distress. Appearance: He is ill-appearing. He is not toxic-appearing or diaphoretic. Interventions: He is not intubated. Comments: PLEASANT WM. HENT: Head: Normocephalic. Right Ear: External ear normal. Left Ear: External ear normal. Nose: Nose normal. No congestion or rhinorrhea. Mouth/Throat: Pharynx: No oropharyngeal exudate or posterior oropharyngeal erythema. Eyes: General: No scleral icterus. Right eye: No discharge. Left eye: No discharge. Conjunctiva/sclera: Conjunctivae normal. Pupils: Pupils are equal, round, and reactive to light. Comments: LATERAL RIGHT EYELID SEWN TOGETHER. Neck: Vascular: No JVD. Trachea: No tracheal deviation. Cardiovascular: Rate and Rhythm: Normal rate and regular rhythm. Heart sounds: Normal heart sounds. No murmur heard. No friction rub. Pulmonary: Effort: Tachypnea present. No accessory muscle usage or respiratory distress. He is not intubated. Breath sounds: No stridor. Rhonchi present. No wheezing. Comments: SCATTERED RHONCHI. Chest: Chest wall: No mass or deformity. Comments: OLD STERNOTOMY INCISION. Abdominal: General: There is no distension. Palpations: Abdomen is soft. There is no mass. Tenderness: There is no abdominal tenderness. Musculoskeletal: General: No swelling, tenderness, deformity or signs of injury. Normal range of motion. Cervical back: Normal range of motion and neck supple. No rigidity or tenderness. Right lower leg: Edema present. Left lower leg: Edema present. Comments: TENDERNESS TO L1-S1. ABLE TO FLEX AND EXTEND ARMS. FULL ROM OF ARMS. TRACE EDEMA TO ANKLES. ARTHRITIC CHANGES TO FINGERS. OLD SURGICAL SCAR TO RIGHT KNEE. SUPERFICIAL SKIN ABRASION TO LEFT KNEE. SUPERFICIAL SKIN TEAR TO DORSAL RIGHT FOREARM. SUPERFICIAL SKIN TEAR TO RIGHT WRIST. SUPERFICIAL SKIN TEAR TO LEFT ELBOW AND WRIST. NO C-SPINE TENDERNESS. Lymphadenopathy: Cervical: No cervical adenopathy. Skin: General: Skin is warm and dry. Capillary Refill: Capillary refill takes less than 2 seconds. Coloration: Skin is not cyanotic, jaundiced or pale. Findings: No bruising, erythema, lesion or rash. Neurological: General: No focal deficit present. Mental Status: He is alert and oriented to person, place, and time. Mental status is at baseline. Sensory: No sensory deficit. Motor: No weakness. Psychiatric: Mood and Affect: Mood normal. Behavior: Behavior normal. MDM Treatment: Procedures Medications cefTRIAXone (ROCEPHIN) 1 g in NS (sodium chloride 0.9%) 100 mL (MINI-BAG) (0 g Intravenous Stopped 07/15/24 1110) azithromycin (ZITHROMAX) 500mg in NS 250ml (VIAL ADAPTER) 500 mg (0 mg Intravenous Stopped 07/15/24 1406) diphth,pertus(acell),tetanus (BOOSTRIX) syringe 0.5 mL (0.5 mL Intramuscular Given 07/15/24 0918) ipratropium-albuteroL (DUO-NEB) 0.5 mg-3 mg(2.5 mg base)/3 mL neb soln 3 mL (3 mL Inhalation Given 07/15/24 0900) HYDROcodone-acetaminophen (NORCO) 5-325 mg per tab 1 Tablet (1 Tablet Oral Given 07/15/24 1154) Results for orders placed or performed during the hospital encounter of 07/15/24 SARS-CoV-2, QL, PCR (Rapid) Result Value Ref Range SARS-CoV-2 RNA Undetected CBC w/Differential Result Value Ref Range WBC 5.8 4.5 - 11.0 10*3/uL RBC 4.02 (L) 4.50 - 5.90 10*6/uL HGB 11.6 (L) 13.5 - 17.5 g/dL HCT 34.0 (L) 37.0 - 53.0 % MCV 84.8 80.0 - 100.0 fL MCHC 34.0 32.0 - 36.0 g/dL MCH 28.8 26.0 - 34.0 pg RDW 17.2 10.7 - 18.7 % MPV 7.1 6.5 - 10.0 fL Platelet Cnt 128 (L) 150 - 450 10*3/uL Differential Type Auto Neutrophils 84.1 (H) 35.0 - 66.0 % Lymphocytes 4.9 (L) 24.0 - 44.0 % Monocytes 7.2 2.1 - 13.3 % Eosinophils 3.6 0.3 - 5.0 % Basophils 0.2 0.0 - 1.0 % Neutrophils Abs 4.9 1.5 - 8.5 10*3/uL Lymphocytes Abs 0.3 (L) 1.1 - 5.0 10*3/uL Monocytes Abs 0.4 0.0 - 1.4 10*3/uL Eosinophils Abs 0.2 0.0 - 0.5 10*3/uL Basophils Abs 0.0 0.0 - 0.1 10*3/uL MDW 20.8 (H) 0.0 - 20.0 Comprehensive Metabolic Panel Result Value Ref Range SODIUM 137 135 - 145 mmol/L POTASSIUM 3.3 (L) 3.6 - 5.0 mmol/L CHLORIDE 101 101 - 111 mmol/L CO2 26 21 - 31 mmol/L ANION GAP 10 GLUCOSE 312 (H) 70 - 110 mg/dL CREATININE 1.1 0.6 - 1.2 mg/dL BUN 16 2 - 32 mg/dL CALCIUM 8.4 (L) 8.5 - 10.5 mg/dL PROTEIN TOTAL 6.1 6.1 - 7.8 g/dL Albumin 3.2 3.2 - 5.0 g/dL T BILIRUBIN 0.8 0.2 - 1.0 mg/dL ALP 91 42 - 121 [iU]/L AST 31 10 - 42 [iU]/L ALT (SGPT) 33 10 - 60 [iU]/L OSMOLALITY 287 266 - 309 A/G Ratio 1.1 B/C 15 10 - 20 ESTIMATED GFR 66 mL/min Troponin I, HS, baseline Result Value Ref Range TROPONIN I, HS, BASELINE 17 0 - 20 RT Blood Gases Result Value Ref Range PH BLOOD 7.48 (H) 7.35 - 7.45 PCO2 ARTERIAL 37 35 - 45 mm[Hg] PO2 56 (LL) 80 - 100 mm[Hg] HCO3 27.9 22.0 - 28.0 mmol/L BASE EXCESS 4.0 mmol/L %O2 SATURATION 89.3 (L) 95.0 - 100.0 % FIO2 21.0 % DRAW SITE Left Brachial MODE ROOM AIR Results CT Lumbar Spine WO Contrast (Final result) Result time 07/15/24 10:16:12 Final result Narrative: [facility] [address] [place] [address] Radiology PATIENT NAME: Obdulio Gold MR#: [id number] PROCEDURE DATE: 07/15/2024 ROOM#: 05 ORDERING PHYS: Carlota Huynh MD PROCEDURE: CT LUMBAR SPINE WO CONTRAST Radiation Optimization: All CT scans at this facility use at least one of these dose optimization techniques: automated exposure control; mA and/or kV adjustment per patient size (includes targeted exams where dose is matched to clinical indication); or iterative reconstruction. TECHNIQUE: Axial CT imaging of the lumbar spine was performed without intravenous contrast. Reformat images were provided in the sagittal and coronal planes. CLINICAL INFORMATION: Back trauma, no prior imaging (Age >= 16y) stairs c/. Trauma with back pain, fall COMPARISON: 04/02/2023 FINDINGS: There is no acute fracture or malalignment within the lumbar spine. There are moderate degenerative changes with disc space narrowing and osteophytosis at multiple levels. There is stable grade 1 anterolisthesis of L4/L5. There is a low-density lesion about the posterior left kidney which is incompletely characterized. There are small nonobstructing renal calculi bilaterally. IMPRESSION: No evidence of acute fracture of the lumbar spine. THIS IS AN ELECTRONICALLY VERIFIED REPORT 07/15/2024 10:13 AM: MD Elijah Hook MD jp TD: 07/15/2024 JOB #: [id number] Radiology Page [address] Head WO Contrast (Final result) Result time 07/15/24 10:13:07 Final result Narrative: [place] [address] Radiology PATIENT NAME: Obdulio Gold MR#: [id number] PROCEDURE DATE: 07/15/2024 ROOM#: 05 ORDERING PHYS: Carlota Huynh MD PROCEDURE: CT head without contrast: Radiation Optimization: All CT scans at this facility use at least one of these dose optimization techniques: automated exposure control; mA and/or kV adjustment per patient size (includes targeted exams where dose is matched to clinical indication); or iterative reconstruction. TECHNIQUE: Axial CT imaging of the head was performed without intravenous contrast. Reformat images were provided in the sagittal and coronal planes. CLINICAL INFORMATION: Head trauma, minor (Age >= 65y). Trauma with headache, fall COMPARISON: 04/01/2024 FINDINGS: The configuration of the ventricles and sulci show cortical volume loss. There is no evidence of acute intracranial hemorrhage. There is no evidence of mass, or mass effect. There is scattered periventricular and subcortical white matter disease, most likely small vessel ischemic disease. Osseous structures are intact. Paranasal sinuses and mastoids are clear. Soft tissues are unremarkable. IMPRESSION: Cortical volume loss and scattered periventricular/subcortical small vessel ischemic disease. No evidence of acute intracranial abnormality. NOTE: Early acute ischemia can be missed by CT scan. Consider MRI with diffusion weighted imaging to further evaluate if clinically indicated. THIS IS AN ELECTRONICALLY VERIFIED REPORT 07/15/2024 10:10 AM: MD Elijah Hook MD jp TD: 07/15/2024 JOB #: [id number] Radiology Page 1 of 1 COPY XR Pelvis AP Only (Final result) Result time 07/15/24 09:16:01 Final result Narrative: [place] [address] Radiology PATIENT NAME: Obdulio Gold MR#: [id number] PROCEDURE DATE: 07/15/2024 ROOM#: 05 ORDERING PHYS: Carlota Huynh MD PROCEDURE: AP pelvis: CLINICAL INFORMATION: Trauma with pain, fall. COMPARISON: CT 04/02/2023 There is bilateral hip arthroplasty. There is no definite hardware complication identified. There is a large greater trochanter fragment on the left which was seen on prior CT. There is mild lucency along the inferior aspect of the fragment. Acute on chronic fracture cannot be excluded. Clinical correlation is suggested. There are no additional fractures. IMPRESSION: Large left greater trochanter fragment which was seen on prior CT pelvis. However, there is a lucency inferiorly. Acute on chronic fracture cannot be excluded. Clinical correlation is suggested.. THIS IS AN ELECTRONICALLY VERIFIED REPORT 07/15/2024 9:14 AM: MD Elijah Hook MD jp TD: 07/15/2024 JOB #: [id number] Radiology Page 1 of 1 COPY XR Portable Chest (Final result) Result time 07/15/24 09:17:04 Final result Narrative: [place] [address] Radiology PATIENT NAME: Obdulio Gold MR#: [id number] PROCEDURE DATE: 07/15/2024 ROOM#: 05 ORDERING PHYS: Carlota Huynh MD PROCEDURE: XR PORTABLE CHEST CLINICAL INFORMATION: cough, wheezing , pain after trauma, fall COMPARISON: 04/01/2024 FINDINGS: There are bilateral interstitial and airspace opacities left greater than right which could represent asymmetric edema or atypical infection. There is no significant effusion. There is no pneumothorax. Cardiomediastinal structures are unremarkable. Bony thorax is overall intact. IMPRESSION: Interstitial and air space disease. THIS IS AN ELECTRONICALLY VERIFIED REPORT 07/15/2024 9:15 AM: MD Elijah Hook MD jp TD: 07/15/2024 JOB #: [id number] Radiology Page 1 of 1 COPY Consult: ACCEPTED FOR TRANSFER TO ER TO ER. DR. CROWDER. Plan: PT AWAKE, ALERT AND STABLE AT TIME OF TRANSFER TO [facility]. FAMILY NOTIFIED AND PATIENT AGREEABLE TO TRANSFER. DR. GONSALVES, DR. MONTESINOS: WILL NOT ACCEPT PATIENT FOR AD[facility]ION [place] [facility]UE TO PATIENT TUMBLING DOWN 10-12 STAIRS (TRAUMA PATIENT NEEDS TO GO TO TRAUMA CENTER). Medical Decision Making DIFFERENTIAL DIAGNOSIS Differential Diagnosis: The following diagnoses were considered in the evaluation of this patient: CHI vs traumatic ICH, Pneumonia, skin tears, lumbar contusion vs fracture Problems Addressed: Hypoxemia: acute illness or injury Multifocal pneumonia: acute illness or injury Amount and/or Complexity of Data Reviewed Independent Historian: spouse External Data Reviewed: notes. Labs: ordered. Decision-making details documented in ED Course. Radiology: ordered and independent interpretation performed. Decision-making details documented in ED Course. Risk Prescription drug management. Decision regarding hospitalization. Progress Note: ED Prescriptions None Final diagnoses: Multifocal pneumonia Hypoxemia ED Disposition ED Disposition Transferred to Another Facility Condition Stable Comment Hospital Area: [facility] [[id number]] Bed Type: Telemetry [5] Bed Reason: Medical Necessity [2] Scribe Attestation: Edmar Gregory acting as scribe for and in the presence of Carlota Huynh MD Electronically Signed By Edmar Gregory 07/15/24 4:49 PM Provider Attestation: I personally performed the services described in the documentation, reviewed the documentation recorded by the scribe in my presence and it accurately and completely records my words and actions. * De Diaz RN - 07/15/2024 11:43 AM EDT Pt states he feels too weak to walk at the moment * De Diaz RN - 07/15/2024 10:45 AM EDT ED Hourly rounding completed at this time. Patient is awake. Patient reports pain 5/10. Currently, patient has visitors. Updated the patient on plan of care including pending ED results and disposition status - pending further results . Call light at bedside and patient demonstrated usage. * De Diaz RN - 07/15/2024 8:35 AM EDT Pt came in through lobby complaint of fall, pt states he had lost balance reached for rail, slid down the stairs, Pt is A&O X4, Pt states lower back pain, bilateral shoulders. Pt has multiple skin tears on both arms from the slide. documented in this encounter Plan of Treatment Upcoming Encounters Date Type Department Care Team (Late st Contact Info) Description 11/06/2024 11:00 AM EDT Office Visit [facility] [address], [address] [place] [phone] Micha Washington MD [address] [place] [address] [place] [address] Molly Figueroa PA-C [address] [place] [phone] documented as of this encounter Procedures Procedure Name Priority Date/Time Associated Diagnosis Comments CT LUMBAR SPINE WO CONTRAST STAT 07/15/2024 10:[address] HEAD WO CONTRAST STAT 07/15/2024 1 0:07 AM EDT SARS-COV-2, QL, PCR (RAPID) STAT 07/15/2024 9:21 AM EDT XR PELVIS AP ONLY STAT 07/15/2024 9:0 9 AM EDT XR PORTABLE CHEST STAT 07/15/2024 9:0 9 AM EDT RT BLOOD GASES STAT 07/15/2024 9:01 AM EDT COMPREHENSIVE METABOLIC PANEL STAT 07/15/2024 8:54 AM EDT TROPONIN I, HS, BASELINE STAT 07/15/2024 8:54 AM EDT CBC W/DIFFERENTIAL STAT 07/15/2024 8: 54 AM EDT EKG 12-LEAD (ED) STAT 07/15/2024 8:29 AM EDT Multifocal pneumonia documented in this encounter Results * CT Lumbar Spine WO Contrast (07/15/2024 10:07 AM EDT) Anatomical Region Laterality Modality T-spine, L-spine, Pelvis Compute d Tomography 07/15/2024 Narrative 07/15/2024 10:13 [place] [address] Radiology PATIENT NAME: Obdulio Gold MR#: [id number] PROCEDURE DATE: 07/15/2024 ROOM#: 05 ORDERING PHYS: Carlota Huynh MD PROCEDURE: CT LUMBAR SPINE WO CONTRAST Radiation Optimization: All CT scans at this facility use at least one of these dose optimization techniques: automated exposure control; mA and/or kV adjustment per patient size (includes targeted exams where dose is matched to clinical indication); or iterative reconstruction. TECHNIQUE: Axial CT imaging of the lumbar spine was performed without intravenous contrast. Reformat images were provided in the sagittal and coronal planes. CLINICAL INFORMATION: Back trauma, no prior imaging (Age >= 16y) stairs c/. Trauma with back pain, fall COMPARISON: 04/02/2023 FINDINGS: There is no acute fracture or malalignment within the lumbar spine. There are moderate degenerative changes with disc space narrowing and osteophytosis at multiple levels. There is stable grade 1 anterolisthesis of L4/L5. There is a low-density lesion about the posterior left kidney which is incompletely characterized. There are small nonobstructing renal calculi bilaterally. IMPRESSION: No evidence of acute fracture of the lumbar spine. THIS IS AN ELECTRONICALLY VERIFIED REPORT 07/15/2024 10:13 AM: MD Elijah Hook MD reena TD: 07/15/2024 JOB #: [id number] Radiology Page 1 of 1 COPY Procedure Note Elijah Clifton MD - 07/15/2024 [place] [address] Radiology PATIENT NAME: Obdulio Gold MR#: [id number] PROCEDURE DATE: 07/15/2024 ROOM#: 05 ORDERING PHYS: Carlota Huynh MD PROCEDURE: CT LUMBAR SPINE WO CONTRAST Radiation Optimization: All CT scans at this facility use at least oneof these dose optimization techniques: automated exposure control; mA and/orkV adjustment per patient size (includes targeted exams where dose is matchedto clinical indication); or iterative reconstruction. TECHNIQUE: Axial CT imaging of the lumbar spine was performed without intravenous contrast. Reformat images were provided in the sagittal and coronal planes. CLINICAL INFORMATION: Back trauma, no prior imaging (Age >= 16y) stairs c/. Trauma with back pain, fall COMPARISON: 04/02/2023 FINDINGS: There is no acute fracture or malalignment within the lumbar spine. There are moderate degenerative changes with disc space narrowing and osteophytosis at multiple levels. There is stable grade 1 anterolisthesisof L4/L5. There is a low-density lesion about the posterior left kidney which is incompletely characterized. There are small nonobstructing renalcalculi bilaterally. IMPRESSION: No evidence of acute fracture of the lumbar spine. THIS IS AN ELECTRONICALLY VERIFIED REPORT 07/15/2024 10:13 AM: MD Elijah Hook MD jp TD: 07/15/2024 JOB #: [id number] Radiology Page 1 of 1COPY Carlota Huynh MD IM CT ORDERABLES Final Result * CT Head WO Contrast (07/15/2024 10:07 AM EDT) Anatomical Region Laterality Modality Head Computed Tomogra phy 07/15/2024 Narrative 07/15/2024 10:10 [place] [address] Radiology PATIENT NAME: Obdulio Gold MR#: [id number] PROCEDURE DATE: 07/15/2024 ROOM#: 05 ORDERING PHYS: Carlota Huynh MD PROCEDURE: CT head without contrast: Radiation Optimization: All CT scans at this facility use at least one of these dose optimization techniques: automated exposure control; mA and/or kV adjustment per patient size (includes targeted exams where dose is matched to clinical indication); or iterative reconstruction. TECHNIQUE: Axial CT imaging of the head was performed without intravenous contrast. Reformat images were provided in the sagittal and coronal planes. CLINICAL INFORMATION: Head trauma, minor (Age >= 65y). Trauma with headache, fall COMPARISON: 04/01/2024 FINDINGS: The configuration of the ventricles and sulci show cortical volume loss. There is no evidence of acute intracranial hemorrhage. There is no evidence of mass, or mass effect. There is scattered periventricular and subcortical white matter disease, most likely small vessel ischemic disease. Osseous structures are intact. Paranasal sinuses and mastoids are clear. Soft tissues are unremarkable. IMPRESSION: Cortical volume loss and scattered periventricular/subcortical small vessel ischemic disease. No evidence of acute intracranial abnormality. NOTE: Early acute ischemia can be missed by CT scan. Consider MRI with diffusion weighted imaging to further evaluate if clinically indicated. THIS IS AN ELECTRONICALLY VERIFIED REPORT 07/15/2024 10:10 AM: MD Elijah Hook MD jp TD: 07/15/2024 JOB #: [id number] Radiology Page 1 of 1 COPY Procedure Note Elijah Clifton MD - 07/15/2024 [facility] [address] [place] [address] Radiology PATIENT NAME: Obdulio Gold MR#: [id number] PROCEDURE DATE: 07/15/2024 ROOM#: 05 ORDERING PHYS: Carlota Huynh MD PROCEDURE: CT head without contrast: Radiation Optimization: All CT scans at this facility use at least oneof these dose optimization techniques: automated exposure control; mA and/orkV adjustment per patient size (includes targeted exams where dose is matchedto clinical indication); or iterative reconstruction. TECHNIQUE: Axial CT imaging of the head was performed withoutintravenous contrast. Reformat images were provided in the sagittal and coronalplanes. CLINICAL INFORMATION: Head trauma, minor (Age >= 65y). Trauma withheadache, fall COMPARISON: 04/01/2024 FINDINGS: The configuration of the ventricles and sulci show cortical volume loss. There is no evidence of acute intracranial hemorrhage. There is noevidence of mass, or mass effect. There is scattered periventricular andsubcortical white matter disease, most likely small vessel ischemic disease. Osseous structures are intact. Paranasal sinuses and mastoids areclear. Soft tissues are unremarkable. IMPRESSION: Cortical volume loss and scatteredperiventricular/subcortical small vessel ischemic disease. No evidence of acute intracranialabnormality. NOTE: Early acute ischemia can be missed by CT scan. Consider MRI with diffusion weighted imaging to further evaluate if clinically indicated. THIS IS AN ELECTRONICALLY VERIFIED REPORT 07/15/2024 10:10 AM: MD Elijah Hook MD reena TD: 07/15/2024 JOB #: [id number] Radiology Page 1 of 1COPY us Carlota Huynh MD [facility] CT ORDERABLES Final Result * SARS-CoV-2, QL, PCR (Rapid) (07/15/2024 9:21 AM EDT) SARS-CoV-2 RNA Undetected 07/15/2024 10:08 AM EDT [facility] Comment: Reference value: Undetected Testing was performed using the GeneXpert Dx System. Fact sheets for this Emergency Use Authorization (EUA) assay can be found at the following links: For Healthcare Providers: https://www.fda.gov/media/217576/download For Patients: https://www.fda.gov/media/380673/download Test Performed by: [facility],[address] [place] [address], Neurourologist: Genaro Calvert D.O. CLIA: [id number] 07/15/2024 9:21 AM EDT 07/15/2024 9:25 AM EDT us Carlota Huynh MD MICROBIOLOGY - GENERAL ORDERABL ES Final Result Performing Organization Address City/State/[facility] Co de Phone Number [facility] [address] [place] [address] [place] [address] * XR Portable Chest (07/15/2024 9:09 AM EDT) Anatomical Region Laterality Modality Chest Computed Radiogr aphy 07/15/2024 Narrative 07/15/2024 9:15 [place] [address] Radiology PATIENT NAME: Obdulio Gold MR#: [id number] PROCEDURE DATE: 07/15/2024 ROOM#: 05 ORDERING PHYS: Carlota Huynh MD PROCEDURE: XR PORTABLE CHEST CLINICAL INFORMATION: cough, wheezing , pain after trauma, fall COMPARISON: 04/01/2024 FINDINGS: There are bilateral interstitial and airspace opacities left greater than right which could represent asymmetric edema or atypical infection. There is no significant effusion. There is no pneumothorax. Cardiomediastinal structures are unremarkable. Bony thorax is overall intact. IMPRESSION: Interstitial and air space disease. THIS IS AN ELECTRONICALLY VERIFIED REPORT 07/15/2024 9:15 AM: MD Elijah Hook MD jp TD: 07/15/2024 JOB #: [id number] Radiology Page 1 of 1 COPY Procedure Note Elijah Clifton MD - 07/15/2024 [place] [address] Radiology PATIENT NAME: Obdulio Gold MR#: [id number] PROCEDURE DATE: 07/15/2024 ROOM#: 05 ORDERING PHYS: Carlota Huynh MD PROCEDURE: XR PORTABLE CHEST CLINICAL INFORMATION: cough, wheezing , pain after trauma, fall COMPARISON: 04/01/2024 FINDINGS: There are bilateral interstitial and airspace opacities left greaterthan right which could represent asymmetric edema or atypical infection. Thereis no significant effusion. There is no pneumothorax. Cardiomediastinal structures are unremarkable. Bony thorax is overall intact. IMPRESSION: Interstitial and air space disease. THIS IS AN ELECTRONICALLY VERIFIED REPORT 07/15/2024 9:15 AM: MD Elijah Hook MD reena TD: 07/15/2024 JOB #: [id number] Radiology Page 1 of 1COPY Carlota Huynh MD IMG DIAGNOSTIC IMAGING ORDERABL ES Final Result * XR Pelvis AP Only (07/15/2024 9:09 AM EDT) Anatomical Region Laterality Modality Abdomen, Pelvis, hip Computed Ra diography 07/15/2024 Narrative 07/15/2024 9:14 [place] [address] Radiology PATIENT NAME: Obdulio Gold MR#: [id number] PROCEDURE DATE: 07/15/2024 ROOM#: 05 ORDERING PHYS: Carlota Huynh MD PROCEDURE: AP pelvis: CLINICAL INFORMATION: Trauma with pain, fall. COMPARISON: CT 04/02/2023 There is bilateral hip arthroplasty. There is no definite hardware complication identified. There is a large greater trochanter fragment on the left which was seen on prior CT. There is mild lucency along the inferior aspect of the fragment. Acute on chronic fracture cannot be excluded. Clinical correlation is suggested. There are no additional fractures. IMPRESSION: Large left greater trochanter fragment which was seen on prior CT pelvis. However, there is a lucency inferiorly. Acute on chronic fracture cannot be excluded. Clinical correlation is suggested.. THIS IS AN ELECTRONICALLY VERIFIED REPORT 07/15/2024 9:14 AM: MD Elijah Hook MD jp TD: 07/15/2024 JOB #: [id number] Radiology Page 1 of 1 COPY Procedure Note Elijah Clifton MD - 07/15/2024 [place] [address] Radiology PATIENT NAME: Obdulio Gold MR#: [id number] PROCEDURE DATE: 07/15/2024 ROOM#: 05 ORDERING PHYS: Carlota Huynh MD PROCEDURE: AP pelvis: CLINICAL INFORMATION: Trauma with pain, fall. COMPARISON: CT 04/02/2023 There is bilateral hip arthroplasty. There is no definite hardware complication identified. There is a large greater trochanter fragment onthe left which was seen on prior CT. There is mild lucency along theinferior aspect of the fragment. Acute on chronic fracture cannot be excluded. Clinical correlation is suggested. There are no additional fractures. IMPRESSION: Large left greater trochanter fragment which was seen on priorCT pelvis. However, there is a lucency inferiorly. Acute on chronicfracture cannot be excluded. Clinical correlation is suggested.. THIS IS AN ELECTRONICALLY VERIFIED REPORT 07/15/2024 9:14 AM: MD Elijah Hook MD jp TD: 07/15/2024 JOB #: [id number] Radiology Page 1 of 1COPY Carlota Huynh MD IMG DIAGNOSTIC IMAGING ORDERABL ES Final Result * (ABNORMAL) RT Blood Gases (07/15/2024 9:01 AM EDT) PH BLOOD 7.48(H) 7.35 - 7.45 07/15/2024 9:01 AM EDT [facility] [place] PCO2 ARTERIAL 37 35 - 45 mm[Hg] 07/15/2024 9:01 AM EDT [facility] [place] PO2 56(LL) 80 - 100 mm[Hg] 07/15/2024 9:01 AM EDT [facility] [place] HCO3 27.9 22.0 - 28.0 mmol/L 07/15/2024 9:01 AM EDT [facility] [place] BASE EXCESS 4.0 mmol/L 07/15/2024 9:01 AM EDT [facility] [place] %O2 SATURATION 89.3(L) 95.0 - 100.0 % 07/15/2024 9:01 AM EDT [facility] [place] FIO2 21.0 % 07/15/2024 9:01 AM EDT [facility] [place] DRAW SITE Left Brachial 07/15/2024 9:01 AM EDT [facility] [place] MODE ROOM AIR 07/15/2024 9:01 AM EDT [facility] [place] Blood (Artery) 07/15/2024 9: 01 AM EDT 07/15/2024 9:01 AM EDT Narrative [facility] - 07/15/2024 9:01 AM EDT Called to and read back by Dr. Carlota Huynh, at 09:01 on 07/15/2024, LBB Carlota Huynh MD RESP CARE LABS Final Result [facility] [address] [place] [address] [facility] [place] [address] [place] [address] * Troponin I, HS, baseline (07/15/2024 8:54 AM EDT) TROPONIN I, HS, BASELINE 17 0 - 20 07/15/2024 9:23 AM EDT [facility] Comment: For Males 20 ng/L is the AMI cutoff for males. For Females 15 ng/L is the AMI cutoff for females. 07/15/2024 8:54 AM EDT 07/15/2024 8:56 AM EDT Carlota Huynh MD CHEMISTRY ORDERABLES Final Resu lt [facility] [address] [place] [address] [facility] [address] [place] [address] * (ABNORMAL) Comprehensive Metabolic Panel (07/15/2024 8:54 AM EDT) SODIUM 137 135 - 145 mmol/L 07/15/2024 9:23 AM EDT [facility] POTASSIUM 3.3(L) 3.6 - 5.0 mmol/L 07/15/2024 9:23 AM EDT [facility] CHLORIDE 101 101 - 111 mmol/L 07/15/2024 9:23 AM EDT [facility] CO2 26 21 - 31 mmol/L 07/15/2024 9:23 AM EDT [facility] ANION GAP 10 07/15/2024 9:23 AM EDT [facility] GLUCOSE 312(H) 70 - 110 mg/dL 07/15/2024 9:23 AM EDT [facility] CREATININE 1.1 0.6 - 1.2 mg/dL 07/15/2024 9:23 AM EDT [facility] BUN 16 2 - 32 mg/dL 07/15/2024 9:23 AM EDT [facility] CALCIUM 8.4(L) 8.5 - 10.5 mg/dL 07/15/2024 9:23 AM EDT [facility] PROTEIN TOTAL 6.1 6.1 - 7.8 g/dL 07/15/2024 9:23 AM EDT [facility] Albumin 3.2 3.2 - 5.0 g/dL 07/15/2024 9:23 AM EDT [facility] T BILIRUBIN 0.8 0.2 - 1.0 mg/dL 07/15/2024 9:23 AM EDT [facility] ALP 91 42 - 121 [iU]/L 07/15/2024 9:23 AM EDT [facility] AST 31 10 - 42 [iU]/L 07/15/2024 9:23 AM EDT [facility] ALT (SGPT) 33 10 - 60 [iU]/L 07/15/2024 9:23 AM EDT [facility] OSMOLALITY 287 266 - 309 07/15/2024 9:23 AM EDT [facility] A/G Ratio 1.1 07/15/2024 9:23 AM EDT [facility] B/C 15 10 - 20 07/15/2024 9:23 AM EDT [facility] ESTIMATED GFR 66 mL/min 07/15/2024 9:23 AM EDT [facility] Comment: *The estimated Glomerular Filtration Rate(EGFR) may not be accurate for children under the age of 18 yrs. To estimate the GFR for -Americans multiply the result provided by 1.21. Stage 1 90 mL/min or greater Stage 2 60-89 mL/min Stage 3 30-59 mL/min Stage 4 15-29 mL/min Stage 5 14 mL/min or less 07/15/2024 8:54 AM EDT 07/15/2024 8:56 AM EDT Carlota Huynh MD CHEMISTRY ORDERABLES Final Resu lt [facility] [address] [place] [address] [facility] [address] [place] [address] * (ABNORMAL) CBC w/Differential (07/15/2024 8:54 AM EDT) WBC 5.8 4.5 - 11.0 10*3/uL 07/15/2024 9:51 AM EDT [facility] RBC 4.02(L) 4.50 - 5.90 10*6/uL 07/15/2024 9:51 AM EDT [facility] HGB 11.6(L) 13.5 - 17.5 g/dL 07/15/2024 9:51 AM EDT [facility] HCT 34.0(L) 37.0 - 53.0 % 07/15/2024 9:51 AM EDT [facility] MCV 84.8 80.0 - 100.0 fL 07/15/2024 9:51 AM EDT [facility] MCHC 34.0 32.0 - 36.0 g/dL 07/15/2024 9:51 AM EDT [facility] MCH 28.8 26.0 - 34.0 pg 07/15/2024 9:51 AM EDT [facility] RDW 17.2 10.7 - 18.7 % 07/15/2024 9:51 AM EDT [facility] MPV 7.1 6.5 - 10.0 fL 07/15/2024 9:51 AM EDT [facility] Platelet Cnt 128(L) 150 - 450 10*3/uL 07/15/2024 9:51 AM EDT [facility] Differential Type Auto 025 9:51 AM EDT [facility] Neutrophils 84.1(H) 35.0 - 66.0 % 07/15/2024 9:51 AM EDT [facility] Lymphocytes 4.9(L) 24.0 - 44.0 % 07/15/2024 9:51 AM EDT [facility] Monocytes 7.2 2.1 - 13.3 % 07/15/2024 9:51 AM EDT [facility] Eosinophils 3.6 0.3 - 5.0 % 07/15/2024 9:51 AM EDT [facility] Basophils 0.2 0.0 - 1.0 % 07/15/2024 9:51 AM EDT [facility] Neutrophils Abs 4.9 1.5 - 8.5 10*3/uL 07/15/2024 9:51 AM EDT [facility] Lymphocytes Abs 0.3(L) 1.1 - 5.0 10*3/uL 07/15/2024 9:51 AM EDT [facility] Monocytes Abs 0.4 0.0 - 1.4 10*3/uL 07/15/2024 9:51 AM EDT [facility] Eosinophils Abs 0.2 0.0 - 0.5 10*3/uL 07/15/2024 9:51 AM EDT [facility] Basophils Abs 0.0 0.0 - 0.1 10*3/uL 07/15/2024 9:51 AM EDT [facility] MDW 20.8(H) 0.0 - 20.0 07/15/2024 9:51 AM EDT [facility] 07/15/2024 8:54 AM EDT 07/15/2024 9:05 AM EDT us Carlota Huynh MD HEMATOLOGY ORDERABLES Final Res ult [facility] [address] [place] [address] [facility] [address] [place] [address] * 12 Lead EKG - Emergency Department (07/15/2024 8:29 AM EDT) 07/15/2024 8:29 AM EDT Narrative EPIPHANY - 07/16/2024 1:31 AM EDT [facility] ED Test Date: 2024-07-15 Pat Name: [facility] Department: EMERGENCY DEPARTMENT Room: 05 Gender: Male Clinical Trial Coordinator: : 1955 Requested By: CARLOTA HUYNH Order Number: [id number] Reading MD: David Fritz MD Measurements Intervals [place] Rate: 98 P: 27 WI: 150 QRS: -52 QRSD: 110 T: 82 QT: 354 QTc: 452 Interpretive Statements: Normal sinus rhythm Poor R wave progression Possible old septal [facility] Nonspecific ST-T wave changes Non specific interventricular conduction delay Electronically Signed On 07-16-2024 01:31:24 EDT by David Fritz MD Procedure Note David Fritz MD - 07/16/2024 [facility] ED Test Date: 2024-07-15 Pat Name: [facility] Department: EMERGENCYDEPARTMENT Room: 05 Gender: Male Clinical Trial Coordinator: : 1955 Requested By: CARLOTA HUYNH Order Number: [id number] Reading MD: David Fritz MD Measurements Intervals [place] Rate: 98 P: 27 WI: 150 QRS: -52 QRSD: 110 T: 82 QT: 354 QTc: 452 Interpretive Statements: Normal sinus rhythm Poor R wave progression Possible old septal [facility] Nonspecific ST-T wave changes Non specific interventricular conduction delay Electronically Signed On 07-16-2024 01:31:24 EDT by David Fritz MD us Carlota Huynh MD EKG ORDERABLES Final Result MARY documented in this encounter Visit Diagnoses Diagnosis Multifocal pneumonia- Primary Hypoxemia documented in this encounter Administered Medications Inactive Administered Medications - up to 3 most recent administrations Medication Order MAR Action Action Date Dose Rate Site azithromycin (ZITHROMAX) 500mg in NS 250ml (VIAL ADAPTER) 500 mg 500 mg, Intravenous, EVERY 24 HOURS, 3 doses, First dose on Tue07/15/24 at 0950, Last dose on Tue07/17/24 at 0950, STAT, + Ceftriaxone 1gm IV every 24 hours New Bag 07/15/2024 11:43 AM EDT 500 mg 250 mL/hr cefTRIAXone (ROCEPHIN) 1 g in NS (sodium chloride 0.9%) 100 mL (MINI-BAG) 1 g, Intravenous, EVERY 24 HOURS, 5 doses, First dose on Tue07/15/24 at 0950, Last dose on Tue07/19/24 at 0950, Administer over 30 Minutes, STAT, + Azithromycin 500mg IV every 24 hours, Indications: PneumoniaIndications:Pneumoni a New Bag 07/15/2024 10:40 AM EDT 1 g 200 mL/hr HYDROcodone-acetaminophen (NORCO) 5-325 mg per tab 1 Tablet 1 Tablet, Oral, ONE TIME ONLY, 1 dose, On Tue07/15/24 at 1152, STAT, *DO NOT EXCEED 4g ACETAMINOPHEN PER DAY* (WASTE: JOSH) Given 07/15/2024 11:54 AM EDT 1 Tablet ipratropium-albuteroL (DUO-NEB) 0.5 mg-3 mg(2.5 mg base)/3 mL neb soln 3 mL 3 mL, Inhalation, EVERY 15 MINUTES (RT), 2 doses, Starting on Tue07/15/24 at 0833, Until Tue07/15/24 at 0900, STAT Given 07/15/2024 9:00 AM EDT 3 mL Given 07/15/2024 8:55 AM EDT 3 mL documented in this encounter Active and Recently Administered Medications Times are shown in EDT. Scheduled Medication Order 07/13/2024 07/14/2024 07/15/2024 azithromycin (ZITHROMAX) 500mg in NS 250ml (VIAL ADAPTER) 500 mg 500 mg, Intravenous, EVERY 24 HOURS, 3 doses, First dose on Tue07/15/24 at 0950, Last dose on Tue07/17/24 at 0950, STAT, + Ceftriaxone 1gm IV every 24 hours 1143 (New Bag - Prov ider: De Diaz RN)1406 (Stopped - Provider: Madyson Ortiz RN) cefTRIAXone (ROCEPHIN) 1 g in NS (sodium chloride 0.9%) 100 mL (MINI-BAG) 1 g, Intravenous, EVERY 24 HOURS, 5 doses, First dose on Tue07/15/24 at 0950, Last dose on Tue07/19/24 at 0950, Administer over 30 Minutes, STAT, + Azithromycin 500mg IV every 24 hours, Indications: Pneumonia 1040 (New Bag - Prov ider: De Diaz RN)1110 (Stopped - Provider: De Diaz RN) HYDROcodone-acetaminophen (NORCO) 5-325 mg per tab 1 Tablet (COMPLETED) 1 Tablet, Oral, ONE TIME ONLY, 1 dose, On Tue07/15/24 at 1152, STAT, *DO NOT EXCEED 4g ACETAMINOPHEN PER DAY* (WASTE: JOSH) 1154 (Given - Provid er: De Diaz RN) ipratropium-albuteroL (DUO-NEB) 0.5 mg-3 mg(2.5 mg base)/3 mL neb soln 3 mL (COMPLETED) 3 mL, Inhalation, EVERY 15 MINUTES (RT), 2 doses, Starting on Tue07/15/24 at 0833, Until Tue07/15/24 at 0900, STAT 0855 (Given - Provid er: Kacy Ambriz, LEGAL DOCUMENT ASSISTANT)0900 (Given - Provider: Kacy Ambriz LEGAL DOCUMENT ASSISTANT) documented in this encounter Care Teams In Flight Technician Relationship Specialty Start Date End Date Elijah Serra DO [address] [place] [address] PCP - General Family Medicine 07/21/23 Willi Tepmleton MD [address] [place] [address] Gastroenterology 02/25/16 María Andre MD [address] [facility] [place] [address] Gastroenterology 03/08/16 Selene Rodriguez APRN [address] [place] [address] [address] [place] [address] Gastroenterology 08/23/16 Mariah Flowers APRN [address] [address] [place] [address] Nurse Practitioner 08/26/16 Neyda Beltran MD [address] [facility] [place] [address] Nephrology 03/17/17 Ryanne Roblero MD [address] [address] [facility] [place] [address] Rheumatology 03/01/18 Mi Martin APRN [address] [place] [phone] Nurse Practitioner Nurse Practitioner 04/16/19 documented as of this encounter
--- OUTSIDE RECORDS SUMMARY | 2024-07-15 16:26 | XMS_ITS | Encounter Summary ---
Author Organization Healthcare Address [address] [id number] Care Team Providers Care Dance Coach Name Role Phone Elijah Serra DO Primary Care Provider [phone] Reason for Referral * Cardiac Stress Testing (Routine) - Closed Specialty Diagnoses / Procedures Referred By Contac t Referred To Contact Cardiology Diagnoses Fall, initial encounter Procedures Adult Patch Monitor - 14 Day Edgardo Corbett MD [address] [place] [address] Phone: tel: fax: Referral ID Status Reason Start Date Expiration Date Visits Re quested Visits Authorized [id number] Closed 07/20/2024 01/19/2026 1 1 * Consultation (Routine) - Authorized Specialty Diagnoses / Procedures Referred By Contac t Referred To Contact Primary Care Diagnoses Multifocal pneumonia Edgardo Corbett MD [address] [place] [address] Phone: tel: fax: [facility] [address] [place] [phone] Phone: tel: Referral ID Status Reason Start Date Expiration Date Visits Requested Visits Authorized [id number] Authorized Specialty Services Required 07/20/2024 01/19/2026 1 1 * Consultation (Routine) - Authorized Specialty Diagnoses / Procedures Referred By Contac t Referred To Contact Diagnoses Multifocal pneumonia Edgardo Corbett MD [address] [place] [address] Phone: tel: fax: Referral ID Status Reason Start Date Expiration Date V isits Requested Visits Authorized [id number] Authorized 07/20/2024 01/19/2026 1 1 * Cardiac Stress Testing (Routine) - Closed Specialty Diagnoses / Procedures Referred By Contac t Referred To Contact Cardiology Diagnoses Fall, initial encounter Procedures Adult Patch Monitor - 14 Day Edgardo Corbett MD [address] [place] [address] Phone: tel: fax: Referral ID Status Reason Start Date Expiration Date Visits Re quested Visits Authorized [id number] Closed 07/20/2024 01/19/2026 1 1 Reason for Visit * Reason Comments Shortness of Breath * Auth/Cert (Routine) Specialty Diagnoses / Procedures Referred By Roberta t Referred To Contact Diagnoses Multifocal pneumonia Fall Vishal Cardona MD [address] [place] [address] Phone: tel: fax: [facility] [address] [place] [address] Phone: tel: Referral ID Status Reason Start Date Expiration Date Visits Re quested Visits Authorized [id number] 1 1 Encounter Details Date Type Department Care Team (Latest Contact Info) Description 07/15/2024 4:26 PM EDT - 07/20/2024 2:59 PM EDT Hospital Encounter [facility] [address] [place] [address] Chava Stephenson MD [address] [place] [address] Vishal Cardona MD [address] [place] [address] Dc Torres MD [address] [place] [address] Edgardo Corbett MD [address] [place] [address] Multifocal pneumonia (Primary Dx); Fall, initial encounter Discharge Disposition: Home or Self Care Social History Tobacco Use Types Packs/Day Years Used Date Smoking Tobacco: Never Smokeless Tobacco: Never Humiliation, Afraid, Rape, and Kick questionnair e Answer Date Recorded Within the last year, have y ou been afraid of your partner or ex-partner? No 07/16/2024 Within the last year, have y ou been humiliated or emotionally abused in other ways by your partner or ex-partner? No Within the last year, have y ou been kicked, hit, slapped, or otherwise physically hurt by your partner or ex-partner? No 07/16/2024 Within the last year, have y ou been raped or forced to have any kind of sexual activity by your partner or ex-partner? No 07/16/2024 Social Connection and Isolation Panel Answer Date Recorded Frequency of Communication with Friends and Fami ly Not on file 07/16/2024 Frequency of Social Gatherings with Friends and Family Not on file 07/16/2024 Attends Sikhism Services Not on file 07/16 Active Member of Clubs or Organizations Not on f ile 07/16/2024 Attends Club or Organization Meetings Not on mera e 07/16/2024 Are you , , di vorced, , never , or living with a partner? 07/16/2024 Overall Financial Resource Strain (CARDIA) Answe r Date Recorded How hard is it for you to pa y for the very basics like food, housing, medical care, and heating? Not hard at all 07/16/2024 Hunger Vital Sign Answer Date Recorded Within the past 12 months, y ou worried that your food would run out before you got the money to buy more. Never true 07/17/19 25 Within the past 12 months, t he food you bought just didn't last and you didn't have money to get more. Never true 07/16/2024 PRAPARE - Transportation Answer Date Re corded In the past 12 months, has l ack of transportation kept you from medical appointments or from getting medications? No 10/2024 In the past 12 months, has l ack of transportation kept you from meetings, work, or from getting things needed for daily living? No 07/16/2024 Housing Stability Vital Sign Answer Terence e Recorded In the last 12 months, was t here a time when you were not able to pay the mortgage or rent on time? No 07/16/2024 In the past 12 months, how m any times have you moved where you were living? 0 07/16/2024 At any time in the past 12 m [facility], were you homeless or living in a custodial (including now)? No 07/16/2024 Utilities Answer Date Recorded In the past 12 months has th e electric, gas, oil, or water company threatened to shut off services in your home? No 07/16/2024 Sex and Gender Information Value Date Recorded Sex Assigned at Male 08/31/2023 4:04 PM EDT Legal Sex Male 3:08 PM EDT Gender Identity Not on file Sexual Orientation Not on file documented as of this encounter Last Filed Vital Signs Vital Sign Reading Time Taken Comments Blood Pressure 156/73 07/20/2024 2:05 PM EDT Pulse 69 07/20/2024 2:05 PM EDT Temperature 36.5 C (97.7 F) 07/20/2024 2:05 PM EDT Respiratory Rate 21 07/20/2024 11:5 0 AM EDT Oxygen Saturation 94% 07/20/2024 2:05 PM EDT Inhaled Oxygen Concentration - - Weight 84.7 kg (186 lb 11.7 oz) 07/20/2024 6:19 AM EDT Height 175.3 cm (5' 9 ) 07/16/2024 7:29 AM EDT Body Mass Index 27.58 07/16/2024 7:29 AM EDT documented in this encounter Functional Status * Calculated C-SSRS Risk Score (Lifetime/Recent) Answer Date of Assessment Author No Risk Indicated 07/20/2024 8:00 AM EDT Todd Ayala RN * Question Answer Date of Assessment Author 1. Wish to be (Past 1 Month) No 025 8:00 AM MARIBELT Todd Ayala RN 2. Non-Specific Active Suici halie Thoughts (Past 1 Month) No 07/20/2024 8:00 AM EDT Todd Ayala RN 6. Suicidal Behavior (Lifetime) No 8:00 AM EDT Todd Ayala RN documented as of this encounter Discharge Instructions * Discharge Instructions* Edgardo Corbett MD - 07/20/2024 1:17 PM EDT Resume all of your home medications with the following exceptions: START THESE NEW MEDICATIONS: - Amoxicillin/Clavulanate twice daily until 07/23/2024 STOP THESE MEDICATIONS: - Tizanidine - Ondansetron - Sucralfate - Potassium Chloride CHANGE THE DOSE OF THESE MEDICATIONS: - Decrease Glargine from 20 to 10 units at night Make sure to go to all follow-up appointments. Your hospital plan of care includes these followup clinic appointments - they are necessary to ensure you continue to recover. In particular, your appointments include - Primary Care - High Risk Discharge There may be other appointments, and you should go to any previously scheduled appointments as well. There are several labs that have not completed at the time of discharge. - Cardiac Patch Monitor Please make sure to discuss these results when they are available with your physicians. Go to the nearest ER immediately if you have any of the following: New chest pain or shortness of breath Bleeding or severe bruising Confusion Increased or severe pain Blue lips or fingernails Go to your primary doctor if you have any of the following: Fever of 101 degrees or more Nausea or vomiting Constipation or diarrhea major weight loss or gain (more than 5 lbs in 1 week or more than 10 lbs in 1 month) More than normal mucous production, or yellow, green or smelly sputum documented in this encounter Medications at Time of Discharge allopurinol (Zyloprim) 300 MG tablet Take 1 tablet by mouth daily. ascorbic acid (vitamin C) 1000 MG tablet Take 1 tablet by mouth daily. ASPIRIN 81 MG chewable tablet Chew 1 tablet daily. aspirin-acetamin ophen-caffeine (Excedrin Migraine) 250-250-65 MG tablet Take 1 tablet by mouth every 6 hours as needed for headaches. clopidogrel (Plavix) 75 MG tablet Take 1 tablet by mouth daily. colchicine (Colcrys) 0.6 MG tablet Take 1 tablet by mouth 2 times a day. colestipol (Colestid) 1 g tablet Take 1 tablet by mouth 2 times a day after meals. Take at least 1 hour after or 4 hours before other medications. donepezil (Aricept) 10 MG tablet Take 1 tablet by mouth nightly. DULoxetine (Cymbalta) [address] capsule Take 1 capsule by mouth 2 times a day. Do not crush or chew. erythromycin (Romycin) 5 MG/GM ophthalmic ointment APPLY 1/4 INCH RIBBON TO RIGHT EYE TWICE DAILY finasteride (Proscar) 5 MG tablet Take 1 tablet by mouth daily. Do not crush, chew, or split. fluticasone (Flonase) 50 MCG/ACT nasal spray Administer 1 spray into each nostril daily. Shake gently. Before first use, prime pump. After use, clean tip and replace cap. furosemide (Lasix) 40 MG tablet Take 1 tablet by mouth daily. gabapentin (Neurontin) 800 MG tablet Take 1 tablet by mouth 3 times a day. HYDROcodone-acet aminophen (Gloster) 10-325 MG tablet Take 1 tablet by mouth every 6 hours as needed for severe pain. hydroxychloroqui ne (Plaquenil) 200 MG tablet Take 1 tablet by mouth 2 times a day. insulin aspart (NovoLOG Flexpen) 100 UNIT/ML injection Inject 8-16 Units under the skin 3 times a day with meals. Insulin Glargine, 2 Unit Dial, (Toujeo Max SoloStar) 300 UNIT/ML injection pen Inject 10 Units under the skin nightly. 6 mL 3 07/20/2024 levothyroxine (Synthroid, Levoxyl) 150 MCG tablet Take 1 tablet by mouth daily before breakfast. lisinopril 2.5 MG tablet Take 1 tablet by mouth daily. metoprolol succinate XL (Toprol-XL) 25 MG 24 hr tablet Take 0.5 tablets by mouth daily. Do not crush or chew. multivitamin (Theragran) tablet Take 1 tablet by mouth daily. rosuvastatin (Crestor) 20 MG tablet Take 1 tablet by mouth nightly. tamsulosin (Flomax) 0.4 MG 24 hr capsule Take 2 capsules by mouth daily. traZODone (Desyrel) 150 MG tablet Take 1 tablet by mouth nightly. valACYclovir (Valtrex) 500 MG tablet Take 1 tablet by mouth daily. amoxicillin-clav ulanate (Augmentin) 875-125 MG tabletIndication s:Multifocal pneumonia Take 1 tablet by mouth every 12 hours for 5 doses. 5 tablet 07/20/2024 documented as of this encounter Miscellaneous Notes * Progress Notes - Deb Vieira RN - 07/20/2024 2:12 PM EDT Case Management Discharge Note Soledad Gold 68 y.o. male CSN: [id number] Admission: 07/15/2024 4:26 PM Primary Problem: Multifocal pneumonia Primary Fruit And Vegetable Classer: Primary Caregiver: Self Assistance Available at Discharge: Availability of Care Givers (#Hours): 24 hours (pt's is available 30/08 and will assist pt at home as needed) Family/Fruit And Vegetable Classer(s) Willingness Assessed to care for patient at home: Yes (pt's present at the bedside and confirmed that pt will have needed assistnace at home) Family/Fruit And Vegetable Classer(s) Readiness Assessed to care for patient at home: Yes Discharge Facility/Level of Care Needs: Discharge Facility/Level of Care Needs: 1-Home or Self Care Patient/Family Anticipated Services at Transition: Patient/Family Anticipated Services at Transition: outpatient care (attending will provide pt with script for outp. PT) DME/Equipment Needed after Discharge: Equipment Currently Used at Home: cane, quad, commode chair, walker, rollator, wheelchair, manual, nebulizer Equipment Needed After Discharge: none (per PT/OT pt has needed DME at home) Readmission Within the Last 30 Days: Readmission Within the Last 30 Days: no previous admission in last 30 days Medicare Documentation: Medicare Second Notice?: Yes Date Second Notice Completed: 07/19/24 Time Second Notice Completed: 1018 Medicare Second Notice Recieved By: patient Follow-up: [facility] [address] [facility] [address] James Connolly MD [address] [facility] [address] Elijah Serra, DO [address] [facility] [id number] Schedule an appointment as soon as possible for a visit in 1 week(s) Discharge Transportation: Transportation Anticipated: family or friend will provide Transportation Home at Discharge: Family/Friend will Provide Has discharge transport been arranged?: No What day is the transport expected?: 07/20/24 What time is the transport expected?: 1600 Follow Up Transport: Transportation Needed to Follow up Appoinments: Family/Friend will Provide Additional Comments: Discussed with multidisciplinary team, per attending physician dr. Corbett pt is medically ready to d/c. Pt will d/c home on this day with his family and no d/c needs. RN MILA visited with the pt to discuss d/c plan, pt's was present at the bedside. Pt's will transport pt home at d/c and provide pt with needed assistance at home. Per PT/OT pt has needed DME at home. Pt currently has home w/24hr care at home and HHPT/OT recs. Pt and his are not interested in HH arrangement and are preferring for pt to go to outp. PT. Attending aware and will provide pt with script for outp. PT/OT. There is no other d/c needs reported or identified at this time. ARTHUR ZARAGOZA will remain available and assist as needed. Deb Vieira RN * Care Plan - Todd Ayala RN - 07/20/2024 1:58 PM EDT Problem: Adult Inpatient Plan of Care Goal: Plan of Care Review 07/20/2024 1358 by Todd Ayala, RN Outcome: Met 07/20/2024 1103 by Todd Ayala RN Outcome: Ongoing, Progressing Goal: Patient-Specific Goal (Individualized) 07/20/2024 1358 by Todd Ayala RN Outcome: Met 07/20/2024 110 by Todd Ayala RN Outcome: Ongoing, Progressing Goal: Absence of Hospital-Acquired Illness or Injury 07/20/2024 1358 by Todd Ayala RN Outcome: Met 07/20/2024 1103 by Todd Ayala RN Outcome: Ongoing, Progressing Goal: Optimal Comfort and Wellbeing 07/20/2024 1358 by Todd Ayala RN Outcome: Met 07/20/2024 1103 by Todd Ayala RN Outcome: Ongoing, Progressing Goal: Readiness for Transition of Care 07/20/2024 135 by Todd Ayala RN Outcome: Met 07/20/2024 110 by Todd Ayala RN Outcome: Ongoing, Progressing Problem: Mobility Impairment Goal: Optimal Mobility 07/20/2024 1358 by Todd Ayala RN Outcome: Met 07/20/2024 1103 by Todd Ayala RN Outcome: Ongoing, Progressing Problem: Infection Goal: Absence of Infection Signs and Symptoms 07/20/20241357 by Todd Ayala RN Outcome: Met 07/20/2024 110 by Todd Ayala RN Outcome: Ongoing, Progressing * Azar GutiérrezVALERIE - Todd Ayala RN - 07/20/2024 1:44 PM EDT Images from the original note were not included. [id number] Pneumonia (Adult) Pneumonia is an infection inside the lungs. It's in the small air sacs (alveoli). It may be caused by a virus, fungus, or bacteria. Pneumonia caused by bacteria is treated with an antibiotic medicine. Severe cases may need to be treated in the hospital. Milder cases can be treated at home. Symptomsmay include fever, chills, and cough (dry or with phlegm). You may have a headache, muscle weakness, trouble breathing, and pain. These symptoms often get worse in the first 2 days. But they often start to get better in the first week of treatment. Home care Follow these guidelines when caring for yourself at home: ? Get plenty of rest. Take naps as needed. Don?t let yourself get too tired when you go back to your activities. Go back to activities as directed by your healthcare provider. ? Stop smoking. This is the most important step you can take to help treat pneumonia. If you need help to stop, talk with your healthcare provider. ? Stay away from secondhand smoke. Don?t let anyone smoke in your home or your car. ? Wash your hands often with soap and clean, running water. Rub for at least 20 seconds. Make sure to clean under your nails and between your fingers. When you can't wash your hands, use hand cloth tearer with at least 60% alcohol. ? Cover your mouth and nose when coughing or sneezing. Use a tissue or the inside of your elbow. Don't cough or sneeze into your hands. Throw used tissues away. Be sure to wash your hands after coughing, sneezing, or blowing your nose. ? Limit close contact with other people while you are sick. ? Stay away from crowds during cold and flu season. Consider wearing a mask in crowds. ? Use pain medicine as directed. You may use acetaminophen or ibuprofen to control fever or pain, unless another medicine was prescribed. If you have chronic liver or kidney disease, talk with your healthcare provider before using these medicines. Also talk with your provider if you?ve had a stomach ulcer or bleeding in your stomach or intestines. Don?t give aspirin to a child younger than age 19unless directed by the provider. Taking aspirin can put a child at risk for Awi syndrome. This is a rare but very serious disorder. It most often affects the brain and the liver. ? Drink plenty of water and other fluids. This can make mucus thinner and easier to cough up. Ask your healthcare provider how much water you should drink. For many people, 6 to 8 glasses (8 ounces each) a day is a good goal. Other fluids include sport drinks, sodas without caffeine, juices, tea, or soup. If you also have heart or kidney disease, check with your provider before you drink extra fluids. ? Eat as you are able. You may not feel hungry, so a light diet is fine. Follow the treatment plan as advised by your healthcare provider. ? Take medicines as instructed by your healthcare provider. If you were given an antibiotic medicine, take it until it's all gone, even if you are feeling better after a few days. ? Try to stay away from air pollution. If you live in an area with air pollution, track the Air Quality Index reports. Plan your outdoor activities when air quality is OK. Follow-up care Follow up with your healthcare provider in the next 2 to 3 days, or as advised. Following up with your provider as directed is important to make sure you are getting better. You may need more tests if you aren't getting better. Take steps to prevent future infections. Ask your healthcare provider what vaccines are right for you and when to get them. This may include the influenza (flu), COVID-19, and pneumococcal vaccines. Call 911 Call 911 if any of these occur: ? Unable to speak or swallow ? Lips or skin looks blue, purple, or kat ? Feeling dizzy ? Fainting ? Unable to be awake or aware ? Feeling of doom ? Trouble breathing or wheezing ? Shortness of breath gets worse or doesn't get better with treatment ? Rapid breathing (more than 25 breaths per minute) ? Coughing up blood ? Chest pain gets worse with breathing or doesn't get better with treatment When to get medical advice Call your healthcare provider right away if any of these occur: ? You don?t get better in the first 2 to 3 days of treatment ? Fever of 100.4??F (38??C) or higher, or as directed by your healthcare provider ? Shaking chills ? Cough with phlegm that doesn't get better, or get worse ? Shortness of breath with activities ? Weakness, dizziness, or fainting that gets worse ? Thirst or dry mouth that gets worse ? Sinus pain, headache, or a stiff neck ? Chest pain with breathing or coughing ? Symptoms that get worse or don't get better Last Reviewed Date: 2023 00:00:00 ?? [id number] [employer]. All rights reserved. This information is not intended as a substitute for professional medical care. Always follow your healthcare professional's instructions. * Discharge Summary - Edgardo Corbett MD - 07/20/2024 1:17 PM EDT Hospitalization Admit Date/Time: 07/15/2024 4:26 PM Admitting Attending: Vishal Cardona Discharge Date: 07/20/2024 Discharge Attending Physician: Edgardo Corbett MD PCP name and Address: Elijah Serra DO [address] / [facility] [address] Referring provider name and address: James Connolly MD [address] [place] [address] Chief Concern, Brief History of Present Illness, and Hospital Course Soledad Gold: 68yo Male PMHx CAD s/p 5V CABG in 2001/SANDY x2 in 2009/SANDY x3 in 2017, HFrEF, DM-2, RAon plaquenil, MICAELA (intolerant of CPAP), transferred from OSH after fall down stairs. Now being treated for Pneumonia. #) Recurrent Multifocal pneumonia #) Acute hypoxic respiratory failure #) Bronchiectasis He has had 3 episodes of Pneumonia since April 2024, improves on Abx but never fully resolves /Results: OSH CT showed multifocal PNA Procalcitonin >4, RVP negative, Strep Pneumo and Legionella Urine Ag negative negative COVID-19 PCR Blood cultures pending He was treated with empiric antibiotics (plan 7 days) Started with IV Pip/Tazo and will finish as outpatient with Amox/Clav PO BID #) Fall other stairs and steps, initial encounter #) Weakness, Debility, Reduced Mobility He uses cane/walker at baseline CT imaging multifocal PNA, but no acute intracranial findings, acute fracture or malalignment. Fall when he lost balance, falling down 12-15 when stairs, and landing on concrete. Denies LOC, but hit his head. On aspirin and Plavix, last dose yesterday. He denies chest pain, palpitations, shortness of breath, or lightheadedness. TSH is normal, B12 is low-normal He received PT/OT who recommended discharge to home On discharge, I am stopping his Tizanidine, reducing his insulin (Glucose has been well controlled on a lower dose) ansd will order a 14-day Cardiac Patch Monitor on discharge #) Oropharyngeal dysphagia #) Esophageal stricture Last esophageal dilation around 1yr ago Evaluated by Speech on 07/18. I spoke with the patient on 07/19, and we reviewed his current DNR/DNI status. I explained the risks of possible aspiration with a diet, and the patient voiced understanding. He is aware of the risk of aspiration and elects to try a regular diet #) Chronic Heart Failure, Preserved Ejection Fraction, Ischemic follows with Cardiology at [facility] 04/03/24 ECHO: LVEF 50-55%, mild LVH, grade I/IV or mild diastolic dysfunction /Plan: - Angiotensin Blockade Continue home Lisinopril - Beta Blockade Continue home Metoprolol Succinate 25mg PO daily - Diuresis Continue home Furosemide 40mg PO daily #) Coronary Artery Disease 5V CABG (2001), SANDY x2 (2009), SANDY x3 (2016) Troponin HS delta not significant, EKG no acute ischemic changes /Plan: - Continue home Metoprolol Succinate 25mg PO daily - Continue home ASA and Clopidogrel - continue rosuvastatin #) Diabetes On discharge, we will reduce his Glargine from 20U to 10U QHS and he will continue Sliding scale #) Chronic kidney disease, Stage 3a follows with Nephrology at [facility] #) Rheumatoid arthritis follows with Rheumatology at [facility]. Home regimen is Gloster 10 Q6h PRN continue Hydroxychloroquine #) Chronic Anemia trend Hgb, transfuse to keep >7 Surgeries and Procedures Medication List .. allopurinol 300 MG tablet Commonly known as: Zyloprim Take 1 tablet by mouth daily. amoxicillin-clavulanate 875-125 MG tablet Commonly known as: Augmentin Take 1 tablet by mouth every 12 hours for 5 doses. ascorbic acid 1000 MG tablet Commonly known as: Vitamin C Take 1 tablet by mouth daily. aspirin 81 MG chewable tablet Chew 1 tablet daily. plzyqgx-iqlkgklspscxp-ynecuhtl 250-250-65 MG tablet Commonly known as: Excedrin Migraine Take 1 tablet by mouth every 6 hours as needed for headaches. clopidogrel 75 MG tablet Commonly known as: Plavix Take 1 tablet by mouth daily. colchicine 0.6 MG tablet Commonly known as: Colcrys Take 1 tablet by mouth 2 times a day. colestipol 1 g tablet Commonly known as: Colestid Take 1 tablet by mouth 2 times a day after meals. Take at least 1 hour after or 4 hours before other medications. donepezil 10 MG tablet Commonly known as: Aricept Take 1 tablet by mouth nightly. DULoxetine [address] capsule Commonly known as: Cymbalta Take 1 capsule by mouth 2 times a day. Do not crush or chew. erythromycin 5 MG/GM ophthalmic ointment Commonly known as: Romycin APPLY 1/4 INCH RIBBON TO RIGHT EYE TWICE DAILY finasteride 5 MG tablet Commonly known as: Proscar Take 1 tablet by mouth daily. Do not crush, chew, or split. fluticasone 50 MCG/ACT nasal spray Commonly known as: Flonase Administer 1 spray into each nostril daily. Shake gently. Before first use, prime pump. After use, clean tip and replace cap. furosemide 40 MG tablet Commonly known as: Lasix Take 1 tablet by mouth daily. gabapentin 800 MG tablet Commonly known as: Neurontin Take 1 tablet by mouth 3 times a day. HYDROcodone-acetaminophen 10-325 MG tablet Commonly known as: Gloster Take 1 tablet by mouth every 6 hours as needed for severe pain. hydroxychloroquine 200 MG tablet Commonly known as: Plaquenil Take 1 tablet by mouth 2 times a day. insulin aspart 100 UNIT/ML injection Commonly known as: NovoLOG Flexpen Inject 8-16 Units under the skin 3 times a day with meals. levothyroxine 150 MCG tablet Commonly known as: Synthroid, Levoxyl Take 1 tablet by mouth daily before breakfast. lisinopril 2.5 MG tablet Take 1 tablet by mouth daily. metoprolol succinate XL 25 MG 24 hr tablet Commonly known as: Toprol-XL Take 0.5 tablets by mouth daily. Do not crush or chew. multivitamin tablet Take 1 tablet by mouth daily. rosuvastatin 20 MG tablet Commonly known as: Crestor Take 1 tablet by mouth nightly. tamsulosin 0.4 MG 24 hr capsule Commonly known as: Flomax Take 2 capsules by mouth daily. Toujeo Max SoloStar 300 UNIT/ML injection pen Generic drug: Insulin Glargine (2 Unit Dial) Inject 10 Units under the skin nightly. traZODone 150 MG tablet Commonly known as: Desyrel Take 1 tablet by mouth nightly. valACYclovir 500 MG tablet Commonly known as: Valtrex Take 1 tablet by mouth daily. Where to Get Your Medications These medications were sent to [facility] [place], [place] - [address] [facility] [id number] amoxicillin-clavulanate 875-125 MG tablet Ese BreauxoStar 300 UNIT/ML injection pen Discharge Diagnosis Medical Problems Active and Resolved Hospital Problems Hospital Coronary arteriosclerosis Overview Addendum 07/15/2024 10:31 PM by Victor M Deshpande APRN s/p 5V CABG (2001), SANDY x2 (2009), SANDY x3 (2016) Chronic diastolic heart failure ([facility]) Bronchiectasis Acquired thrombocytopenia ([facility]) Rheumatoid arthritis ([facility]) Overview Signed 07/15/2024 7:33 PM by Victor M Deshpande APRN hydroxychloroquine, cymbalta f/w Rheum Oropharyngeal dysphagia Overview Signed 07/15/2024 7:33 PM by Victor M Deshpande APRN EGD 01/2021, dilated, recc 3y f/u Stage 3a chronic kidney disease ([facility]) * (Principal) Multifocal pneumonia Acute hypoxic respiratory failure Fall (on) (from) other stairs and steps, initial encounter Anemia of chronic disease Traumatic hematoma of flank Post Discharge Instructions Resume all of your home medications with the following exceptions: START THESE NEW MEDICATIONS: - Amoxicillin/Clavulanate twice daily until 07/23/2024 STOP THESE MEDICATIONS: - Tizanidine - Ondansetron - Sucralfate - Potassium Chloride CHANGE THE DOSE OF THESE MEDICATIONS: - Decrease Glargine from 20 to 10 units at night Make sure to go to all follow-up appointments. Your hospital plan of care includes these followup clinic appointments - they are necessary to ensure you continue to recover. In particular, your appointments include - Primary Care - High Risk Discharge There may be other appointments, and you should go to any previously scheduled appointments as well. There are several labs that have not completed at the time of discharge. - Cardiac Patch Monitor Please make sure to discuss these results when they are available with your physicians. Go to the nearest ER immediately if you have any of the following: New chest pain or shortness of breath Bleeding or severe bruising Confusion Increased or severe pain Blue lips or fingernails Go to your primary doctor if you have any of the following: Fever of 101 degrees or more Nausea or vomiting Constipation or diarrhea major weight loss or gain (more than 5 lbs in 1 week or more than 10 lbs in 1 month) More than normal mucous production, or yellow, green or smelly sputum Outpatient Follow-Up Future Appointments Date Time Provider Department Center 07/20/2024 2:00 PM [facility] Test Results Pending At Discharge Pending Labs Order Current Status Blood Culture (Aerobic/Anaerobet Set) Preliminary result Blood Culture (Aerobic/Anaerobet Set) Preliminary result Pertinent Physical Exam At Time of Discharge Physical Exam General: AOx3, no acute distress, well-nourished Cardiovascular: regular s1/s2, no murmurs, no JVD, no lower extremity edema Pulmonary: crackles on right lung swan, no wheezes, non-labored Abdom: normal bowel sounds, soft, non-tender, non-distended Muskuloskeletal: full RoM in BUE, full RoM in Knees, full RoM in Hips Dermatologic: no rashes, no lesions, no ulcers Discharge Disposition/Condition Disposition: Home Condition: Stable (s/sx potential problems absent or manageable) I spent >30 minutes of patient care and instruction time in preparation for this discharge. * Care Plan - Todd Ayala RN - 07/20/2024 11:03 AM EDT Problem: Adult Inpatient Plan of Care Goal: Plan of Care Review Outcome: Ongoing, Progressing Goal: Patient-Specific Goal (Individualized) Outcome: Ongoing, Progressing Goal: Absence of Hospital-Acquired Illness or Injury Outcome: Ongoing, Progressing Goal: Optimal Comfort and Wellbeing Outcome: Ongoing, Progressing Goal: Readiness for Transition of Care Outcome: Ongoing, Progressing Problem: Mobility Impairment Goal: Optimal Mobility Outcome: Ongoing, Progressing Problem: Infection Goal: Absence of Infection Signs and Symptoms Outcome: Ongoing, Progressing * Care Plan - Mohamud Garrison RN - 07/19/2024 8:45 PM EDT Problem: Adult Inpatient Plan of Care Goal: Plan of Care Review Outcome: Ongoing, Progressing Flowsheets (Taken 07/19/20242044) Progress: improving Plan of Care Reviewed With: patient Goal: Patient-Specific Goal (Individualized) Outcome: Ongoing, Progressing Goal: Absence of Hospital-Acquired Illness or Injury Outcome: Ongoing, Progressing Goal: Optimal Comfort and Wellbeing Outcome: Ongoing, Progressing Goal: Readiness for Transition of Care Outcome: Ongoing, Progressing * Query Clarification Note - Edgardo Corbett MD - 07/19/2024 1:55 PM EDT The diagnosis of Multifocal pneumonia-suspect aspiration was documented on 07/16/24 Internal MedicineProgress Note but is not consistently noted in subsequent documentation. Please clarify the following: []Multifocal Pneumonia due to Aspiration was present and is now resolved (indicate if POA). [x]Multifocal Pneumonia due to Aspiration was present and is still being treated (POA). []Multifocal Pneumonia due to Aspiration was ruled out. []Other (please specify) This documentation will become part of the patient's medical record. * Progress Notes - Edgardo Corbett MD - 07/19/2024 1:43 PM EDT Subjective: No acute events overnight Review of Systems: Constitutional: no fevers, no weakness, no weight loss, normal appetite Cardiovascular: no chest pain, no palpitations, no edema Respiratory: no shortness of breath, no cough Gastrointestinal: no nausea, no vomiting, no diarrhea, no constipation, no abdominal pain Musculoskeletal: no back pain, no shoulder pain, no hip pain, no knee pain All other review of systems are negative Active Medications: Current Scheduled Medications[1] Current Continuous Medications[2] Current PRN Medications[3] Objective: Visit Vitals BP 115/71 (BP Location: Right arm, Patient Position: Lying) Pulse 74 Temp 36.7 ??C (98 ??F) (Oral) Resp 15 Ht 1.753 m (5' 9 ) Wt 83.4 kg (183 lb 13.8 oz) SpO2 93% BMI 27.15 kg/m?? Smoking Status Never BSA 2.02 m?? Physical Exam: General: AOx3, no acute distress, well-nourished Cardiovascular: regular s1/s2, no murmurs, no JVD, no lower extremity edema Pulmonary: clear, no crackles, no wheezes, non-labored Abdom: normal bowel sounds, soft, non-tender, non-distended Muskuloskeletal: full RoM in BUE, full RoM in Knees, full RoM in Hips Dermatologic: no rashes, no lesions, no ulcers Labs: Lab Results Component Value Date NA 139 07/19/2024 K 3.9 07/19/2024 CL 104 07/19/2024 CO2 25 07/19/2024 BUN 11 07/19/2024 CREATININE 0.88 07/19/2024 ALT 28 07/19/2024 AST 28 07/19/2024 Lab Results Component Value Date WBC 5.22 07/19/2024 HGB 9.5 (L) 07/19/2024 PLT 107 (L) 07/19/2024 MCV 91 07/19/2024 ASSESSMENT/PLAN: Soledad Gold: 68yo Male PMHx CAD s/p 5V CABG in 2001/SANDY x2 in 2009/SANDY x3 in 2017, HFrEF, DM-2, RAon plaquenil, MICAELA (intolerant of CPAP), transferred from OSH after fall down stairs. Now being treated for Pneumonia. #) Recurrent Multifocal pneumonia #) Acute hypoxic respiratory failure #) Bronchiectasis He has had 3 episodes of Pneumonia since April 2024, improves on Abx but never fully resolves /Results: OSH CT showed multifocal PNA Procalcitonin >4, RVP negative, Strep Pneumo and Legionella Urine Ag negative negative COVID-19 PCR Blood cultures pending /Plan: - Empiric antibiotics (plan 7 days) d/c Pip/Tazo Amox/Clav PO BID - Duoneb q6h x 24h, then PRN #) Fall other stairs and steps, initial encounter #) Weakness, Debility, Reduced Mobility He uses cane/walker at baseline CT imaging multifocal PNA, but no acute intracranial findings, acute fracture or malalignment. Fall when he lost balance, falling down 12-15 when stairs, and landing on concrete. Denies LOC, but hit his head. On aspirin and Plavix, last dose yesterday. He denies chest pain, palpitations, shortness of breath, or lightheadedness. TSH is normal, B12 is low-normal /Plan: - PT/OT - Continue reduced insulin - Halter monitor on discharge #) Oropharyngeal dysphagia #) Esophageal stricture Last esophageal dilation around 1yr ago Evaluated by Speech on 07/18. I spoke with the patient on 07/19, and we reviewed his current DNR/DNI status. I explained the risks of possible aspiration with a diet, and the patient voiced understanding. He is aware of the risk of aspiration and elects to try a regular diet #) Chronic Heart Failure, Preserved Ejection Fraction, Ischemic follows with Cardiology at [facility] 04/03/24 ECHO: LVEF 50-55%, mild LVH, grade I/IV or mild diastolic dysfunction /Plan: - Angiotensin Blockade Hold due to ELIZABETH - Beta Blockade Continue home Metoprolol Succinate 25mg PO daily - Diuresis Continue home Furosemide 40mg PO daily #) Coronary Artery Disease 5V CABG (2001), SANDY x2 (2009), SANDY x3 (2016) Troponin HS delta not significant, EKG no acute ischemic changes /Plan: - Continue home Metoprolol Succinate 25mg PO daily - Continue home ASA and Clopidogrel - continue rosuvastatin #) Diabetes /Plan: - Insulin Glargine 10U QHS Sliding scale #) Chronic kidney disease, Stage 3a follows with Nephrology at [facility] - Monitor #) Rheumatoid arthritis follows with Rheumatology at [facility]. Home regimen is Gloster 10 Q6h PRN /Plan: - continue Hydroxychloroquine - Oxycodone 10mg PO Q6h PRN #) Chronic Anemia -trend Hgb, transfuse to keep >7 #) Fluids/Nutrition He is already DNR/DNI, and he may elect for regular diet - Puree diet #) Prophylaxis - Enoxaparin subcu #) Discharge Planning - Halter monitor on discharge #) Code Status DNR/DNI Edgardo Corbett MD PhD Division of Hospital Medicine [phone] [1] acetaminophen, 1,000 mg, Oral, q8h allopurinol, 300 mg, Oral, Daily amoxicillin-clavulanate, 1,000 mg, Oral, q8h aspirin, 81 mg, Oral, Daily clopidogrel, 75 mg, Oral, Daily donepezil, 10 mg, Oral, Nightly [START ON 07/20/2024] DULoxetine, 60 mg, Oral, Daily enoxaparin, 40 mg, Subcutaneous, Daily finasteride, 5 mg, Oral, Daily furosemide, 40 mg, Oral, Daily gabapentin, 800 mg, Oral, TID [START ON 07/20/2024] hydroxychloroquine, 200 mg, Oral, Daily insulin glargine-yfgn, 10 Units, Subcutaneous, Nightly insulin lispro, 0-5 Units, Subcutaneous, TID with meals insulin lispro, 0-3 Units, Subcutaneous, Twice at night Insulin Lispro, 3 Units, Subcutaneous, TID with meals levothyroxine, 150 mcg, Oral, q AM mupirocin, 1 Application, Each Nostril, BID pantoprazole, 40 mg, Oral, Daily rosuvastatin, 20 mg, Oral, Nightly senna, 2 tablet, Oral, Nightly sodium chloride, 10 mL, Intravenous, q12h tamsulosin, 0.8 mg, Oral, Daily with dinner valACYclovir, 500 mg, Oral, Daily [2] [3] PRN medications: glucose OR dextrose OR glucagon (human recombinant), guaiFENesin, oxyCODONE, polyethylene glycol, Insert peripheral IV AND Saline lock IV AND sodium chloride AND sodium chloride, sodium chloride, traZODone * Progress Notes - Mayur Blair - 07/19/2024 1:00 PM EDT Physical Therapy Treatment Patient Name: Soledad Gold Today's Date: 07/19/2024 PT Discharge Recommendations: Home with assistance Equipment Recommended: Patient owns appropriate equipment Subjective Patient agreeable to PT. Participants in Care Family/Caregiver Present: No Presentation Oxygen Therapy: None (Room air) Lines and Tubes: Telemetry, Intravenous access Pre-Session: Sitting in chair, Chair alarm, Lines intact Pre-Session Comments: RN and pt agreeable to therapy session. Post-Session: Lines intact, RN notified, Call light in reach, Sitting in chair, Chair alarm Post-Session Comments: all needs met Precautions Medical Precautions: Fall precautions Objective Pain No c/o pain. Delirium Screening Thomas Agitation Sedation Scale (RASS): Alert and calm Confusion Assessment Method-ICU (CAM-ICU/PCAM-ICU) Feature 3: Altered Level of Consciousness: Negative Transfers Transfer Exam: Sit to stand Level of [place]: Stand-by assist Physical/Nonphysical Assist: Verbal Cues, Set-up required, Minimal cues Assistive Device: Walker, rolling Transfer Exam: Stand to Sit Level of [place]: Stand-by assist Physical/Nonphysical Assist: Verbal Cues, Minimal cues Assistive Device: Walker, rolling Balance Postural Appearance Posture: Within Functional Limits, Stooped posture, Forward head Static Sitting Balance Static Sitting-Balance Support: Feet supported Static Sitting-Level of Assistance: Standby assist Dynamic Sitting Balance Dynamic Sitting-Balance Support: Feet supported Dynamic Sitting-Balance: Lateral weight shifts, Anterior/Posterior weight shifts Level of Assistance: Standby assisst Static Standing Balance Static Standing-Balance Support: Right upper extremity support, Left upper extremity support Static Standing-Level of Assistance: Supervision Therapeutic Activity (9 minutes) Patient performed sit to stand to sit transfers x 3 during session. Unsupported seated balance on toilet with distant SBA for safety. Verbal cues to promote hand placmenent and sequencing. Gait Training (15 minutes) Device: Rolling walker Apparatus: None Assistance: Standby assist Distance: 350 feet Gait Analysis: Flexed posture, AD anterior to Base of support. Gait Training Interventions: Verbal and tactile cues to promote posture, AD management/positioning. Standardized Assessments [facility] 6-Clicks Mobility Assessment Difficulty patient has turning over in bed (including adjusting bedclothes, sheets, and blankets)?:None Difficulty patient has sitting down on and standing up from a chair with arms (wheelchair, bedside commode, etc.)?: None Difficulty patient has moving from lying on back to sitting on the side of the bed?: None How much help does the patient need moving to and from a bed to a chair (including a wheelchair)?: None How much help does the patient need to walk in hospital room?: None How much help does the patient need climbing 3-5 steps with a railing?: A little [facility] 6-Clicks Mobility Assessment Total : 23 Assessment Patient performed mobility and gait with improved function. Is appropriate for safe discharge to home environment with assist of family. PT Recommendations Discharge Destination: Home with assistance Discharge Equipment: Patient owns appropriate equipment Plan Continue PT POC and progress as tolerated. PT Goals PT GOAL DETAILS Goal Established Date Time Frame Goal Status PT Goal 1: Pt will be IND with HEP and discharge recommendations. 07/16/24 2 weeks PT Goal 2: Pt will perform sup<>sut IND. 07/16/24 2 weeks PT Goal 3: Pt will perform STS SBA. 07/16/24 2 weeks PT Goal 4: Pt will ambulate 150' with LRAD and SBA. 07/16/24 2 weeks PT Goal 5: Pt will ambulate up/down 4 steps with CGA. 07/16/24 2 weeks Written by Mayur Blair on 07/19/24 at 1:00 PM. * Progress Notes - Deb Vieira RN - 07/19/2024 11:14 AM EDT Case Management Adult Progress Note Soledad Gold 68 y.o. male CSN: [id number] Admission: 07/15/2024 4:26 PM Primary Problem: Multifocal pneumonia Anticipated Discharge Date: TBD Discussed with multidisciplinary team, per attending physician dr. Corbett pt is not medically ready to d/c. Pt currently has Home with 24 hour assistance, Home health PT, Home health OT recs- per PT/OTpt has needed DME. ARTHUR ZARAGOZA visited with the pt to discuss d/c plan and PT/OT recs. At the time of thevisit pt's was present at the bedside. Pt is reporting that he will have needed assistance at home, as well as that he prefers to do outp.PT instead of HH. Pt's family will provide pt with transportation home at d/c. Team updated. ARTHUR ZARAGOZA will continue to follow and assist with d/c plan and as needed. Deb Vieira RN * Progress Notes - Ally Howard - 07/19/2024 9:53 AM EDT OCCUPATIONAL THERAPY TREATMENT PATIENT DATA Patient Name Soledad Gold Session Date 07/19/2024 OT Discharge Recommendations Home with 24 hour assistance, Home health PT, Home health OT Equipment Recommendations Patient owns appropriate equipment Discharge Transportation Recommendations Car MOBILITY GUIDELINES Mobility Protocol: General - Mobility Guidelines Extremity Precautions: No Extremity Precautions Other mobility precautions: No other precautions required PRECAUTIONS Medical Precautions Yes Medical Precautions: Fall precautions HOME LIVING/SET-UP Lives With Spouse Home Type House Home Equipment Wheelchair-manual, shower chair, Bedside commode, Rolling walker, Rollator, Cane (uses cane) Home Layout Stairs to enter with rails, One level 4 Bathroom Layout Tub/Shower combo, Handheld shower head, Grab bars, Shower chair Tall, Bedside commode Accessible Additional Comments Patient reports daughter and spouse can provide assistance. PRIOR LEVEL OF FUNCTION Receives help from No assist required prior to admission Level of Mobility Ambulatory- community Mobility [place] Independent gait with device History of Falls No (unsure) ADL Performance Independent PRESENTATION Oxygen None (Room air) Lines and Tubes Peripheral IV 07/18/24 Anterior;Left Forearm (Active) Pre-Session Sitting in chair, Chair alarm, Lines intact RN and pt agreeable to therapy session. Post-Session Lines intact, RN notified, Call light in reach, Sitting in chair, Chair alarm all needs met Bracing (if applicable) SUBJECTIVE PARTICIPANTS IN CARE Patient/Caregiver Comments Pt agreeable to therapy with good participation. Visitors Present No Birth Attendant (if applicable) OBJECTIVE PAIN Pain Score (0-10): 5 Location: generalized pain arthritis Intervention: ambulation/increased activity, position adjusted, and pillow support provided Response: comfortable at end of session DELIRIUM SCREENING Thomas Agitation Sedation Scale (RASS): Alert and calm Confusion Assessment Method-ICU (CAM-ICU/PCAM-ICU) Feature 3: Altered Level of Consciousness: Negative COGNITION SCREENING Overall Cognitive Status Within Functional Limits Arousal/Alertness Appropriate responses to stimuli Mood/Behavior Alert Orientation Oriented X4 Command Following Single Step Commands: Consistently Multi-Step Commands: Consistently, 100% of thetime Method of Communication Additional Observations INTERVENTIONS SELF-CARE Treatment Minutes (if applicable) 23 Interventions OT promoted adl retraining with pt demonstrating ability to complete sit to stand with sba and he ambulated to bathroom with cga to sba. He completed toilet transfer with sba using grabbar and completed toileting tasks with sba. Pt demonstrated ability to don socks with min assist atchair level. Discussed discharge plans and he [facility] Pt able to ambulate in room and hallway equally more than house hold distances using a rw and cga to sba. Level of [place] Adaptive Equipment Utilized Comments Feeding Grooming Setup Standing sinkside Bathing Upper Body Dressing Lower Body Dressing Sock Level of Assistance: Minimum assistance Toileting SBA Toilet IADLs Health Management Community Re-Entry BALANCE Postural Appearance Posture: Within Functional Limits, Stooped posture, Forward head INTERVENTIONS Level of [place] Balance Support Comments Static Sit Standby assist Feet supported Dynamic Sit Standby assisst Feet supported Dynamic Sitting-Balance: Lateral weight shifts, Anterior/Posterior weight shifts Static Stand Supervision Right upper extremity support, Left upper extremity support RW Dynamic Stand Contact guard Right upper extremity support, Left upper extremity support Lateral weight shifts, Anterior/Posterior weight shifts RW FUNCTIONAL MOBILITY Comments Functional mobility and transfers performed to facilitate participation in ADL routines within home environment and community as part of patient's prior baseline level of participation. Therapist provided verbal/tactile/environmental cues for postural control, hand placement, device management, pacing and weight shifting to promote safety. Level of [place] Physical/Non-physical Assist Adaptive Equipment Utilized Rolling/ Turning Scooting/ Bridging Supine to Sit Sit to Supine Sit to Stand Stand-by assist Verbal Cues, Set-up required, Minimal cues Walker, rolling Stand to sit Stand-by assist Verbal Cues, Minimal cues Walker, rolling Bed to Chair Toilet Transfer Stand-by assist To toilet, Ambulation Grab bar Shower Transfer Additional Transfers ASSESSMENT OT provided adl retraining with pt demonstrating good tolerance and improved function required min assist to sba for self care tasks and cga to sba for mobility. Pt demonstrates good potential for returning home with 24 hour assist and home health OT/PT assist. OT RECOMMENDATIONS Discharge Destination Home with 24 hour assistance, Home health PT, Home health OT Discharge Equipment Patient owns appropriate equipment PLAN OT plans to continue to address adl performance and safety with functional mobility. OT GOALS OT GOAL DETAILS Goal Established Date Time Frame Goal Status OT Goal 1: Pt will complete lower body dressing with mod A and AAD PRN. 07/16/24 2 weeks OT Goal 2: Pt will complete grooming while standing at sink with CGA and AAD PRN. 07/16/24 2 weeks OT Goal 3: Patient will complete functional mobility to and from bathroom/toilet with SBAx 1 and AAD 07/16/24 2 weeks OT Goal 4: Pt will complete toileting including clothing management and personal hygiene with SBA and AAD PRN. 07/16/24 2 weeks Written by Ally Howard on 07/19/24 at 2:58 PM. * Consults - Stephany Modi, SWATHI - 07/19/2024 7:47 AM EDT Adult Nutrition Evaluation Note Soledad Gold 68 y.o. male CSN: [id number] Room/Bed 861/861A Nutrition evaluation type: screen Reason for evaluation: MST 2 Hospital course: 68 yo male who transferred from OSH after fall down stairs. Past medical/ surgical history: CAD s/p 5V CABG in 2001/SANDY x2 in 2009/SANDY x3 in 2017, chronic HFrEF, HTN, HLD, IDDM c/b DPN, CKD3a, gout, RA on plaquenil, chronic pain on Gloster, debility (cane/walker at baseline), MICAELA (intolerant of CPAP), hypothyroidism, BPH, GERD, and esophageal stricture c/b oropharyngeal dysphagia s/p last dilatation Past Medical History[1] Surgical History[2] Social history: Social History[3] Additional comments: Visited pt on 07/18/24, pt was eating lunch at the time of visit. Pt reports a good appetite, denies n/v/d/c. Pt coughed frequently when drinking, expressed that he has some difficulty swallowing. Pt reports intentional wt loss over the past year, prior BW was 199#. Vitals and Basic Assessment: BP: (!) 144/71 Temp: 36.9 ??C (98.5 ??F) Oxygen Therapy: Supplemental oxygen O2 Delivery Method: Nasal cannula Jacob Coma Scale Score: 15 Casey Scale Score: 19 Most Recent BM Date: 07/16/24 Allergies: No FA reported Medications: Current Scheduled Medications[4] Meds were reviewed: Yes Labs: Labs in last 18 hours CBC WBC 5.22 Hb 9.5 (L) Plt 107 (L) Hct 31.0 (L) ANC 2.85 INR ??, PTT ??, Anti-Xa ?? BMP Na 139 Cl 104 BUN 11 Glu 235 (H) K 3.9 Co2 25 Cr 0.88 Ca 8.6 (L) iCa ?? Mg 1.9, Phos 2.8 Lactate ?? LFT AST 28 AlkPhos 96 T Prot 6.0 (L) ALK 28 Bili 0.7 Alb ?? D.Bili ?? Anthropometrics: Height: 175.3 cm (5' 9 ) Weight: 83.4 kg (183 lb 13.8 oz) BMI (Calculated): 27.14 Otto Body Weight (kg): 72.7 Percent Otto Body Weight: 115 Wt Readings from Last 10 Encounters: 07/19/24 83.4 kg (183 lb 13.8 oz) 02/17/24 89 kg (196 lb 4.8 oz) 08/31/23 86.2 kg (190 lb) 02/03/23 90.7 kg (200 lb) Estimated Needs: Metabolic Cart Study Results: Current Nutrition Intake: Diet Order: Adult Diet Diet Texture: Pureed 4 Adult Carbohydrate Restriction: Consistent CHO 2 ([id number] Adelfo, 80 g/meal) Adult Sodium Restriction: 2,000 mg Na Fluid Consistency: Moderately Thick 3 (Honey) Percent Meals Eaten (%): 50-100% x 5 meals Diet Experience and Nutrition History: Diet Education Provided: Will monitor Pertinent home medications: Reviewed Sikhism needs: Nutrition Focused Physical Exam: Unable to Complete Exam: Patient unable to participate Physical exam performed on (date): Assessment of Malnutrition: Nutrition Problem: Swallowing difficulty related to dysphagia as evidenced by altered textures/consistencies. Status of Nutrition Diagnosis: New Nutrition Interventions and Recommendations: -Diet texture/consistency per [facility] -CC2/ 2g Na restrictions -Encourage PO intake and document in flowsheet Nutrition Monitoring and Goals: -PO intake >/= 75% of most meals -Nutrition labs trending WDL -glycemic control - Acuity Level: 1 Stephany Modi, RD, LD [1] Past Medical History: Diagnosis Date Acquired thrombocytopenia ([facility]/HCC) 07/15/2024 Atherosclerosis of aorta ([facility]/HCC) 12/12/2018 Benign essential hypertension 12/12/2018 Benign prostatic hyperplasia 12/27/2023 Bronchiectasis 11/05/2022 Chronic diastolic heart failure ([facility]/HCC) 12/21/2021 Coronary arteriosclerosis 07/13/2009 s/p CABG, SANDY x2 (2009), SANDY x3 (2017) [place]parathy[place] due to [place] insufficiency [place] 07/01/2020 NM parathyroid normal Macular degeneration 12/19/2020 [facility] Mixed hyperlipidemia 07/13/2009 Nephrolithiasis 12/12/2018 Oropharyngeal dysphagia 01/06/2021 EGD 01/2021, dilated, rec 3y f/u Pain of left hip joint 08/27/2022 Post-surgical hypothyroidism 03/19/2019 left and isthmus 1970 Primary osteoarthritis involving multiple joints 12/12/2018 ) 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 07/21/2023 Rheumatoid arthritis [place] 09/14/2018 hydroxychloroquine, cymbalta f/w Rheum Sensorineural hearing loss (SNHL) of both ears 02/17/2024 f/w ENT Sleep apnea 06/19/2021 intolerant of CPAP Spondylolisthesis of lumbar region 10/23/2020 f/w Dr Reynoso Stage 3a chronic kidney disease [place] 07/14/2022 Tear of supraspinatus tendon 09/18/2020 R, full thickness MRI 07/2020 Type 1 diabetes mellitus with diabetic polyneuropathy [place] 06/19/2020 [2] Past Surgical History: Procedure Laterality Date CARDIAC CATHETERIZATION Left 08/04/2016 s/p SANDY x 3 CARDIAC CATHETERIZATION Left 06/02/2009 s/p SANDY x 2 CHOLECYSTECTOMY COLONOSCOPY 08/11/2016 ESOPHAGEAL DILATION 2023 ESOPHAGEAL DILATION 01/2021 rec 3y f/u ESOPHAGOSCOPY / EGD 08/11/2016 EYELID SURGERY Right lateral sewn together 2/2 non-healing corneal abrasion per pt NASAL SEPTUM SURGERY THYROIDECTOMY, PARTIAL Left 1969 left and isthmus TONSILLECTOMY TOTAL HIP ARTHROPLASTY Left 1989 1989's TOTAL HIP ARTHROPLASTY Right 2014 TOTAL KNEE ARTHROPLASTY Right 1999 [3] Social History Tobacco Use Smoking status: Never Smokeless tobacco: Never [4] acetaminophen, 1,000 mg, Oral, q8h allopurinol, 300 mg, Oral, Daily aspirin, 81 mg, Oral, Daily clopidogrel, 75 mg, Oral, Daily donepezil, 10 mg, Oral, Nightly DULoxetine, 120 mg, Oral, Daily enoxaparin, 40 mg, Subcutaneous, Daily finasteride, 5 mg, Oral, Daily furosemide, 40 mg, Oral, Daily gabapentin, 800 mg, Oral, TID hydroxychloroquine, 400 mg, Oral, Daily insulin glargine-yfgn, 10 Units, Subcutaneous, Nightly insulin lispro, 0-5 Units, Subcutaneous, TID with meals insulin lispro, 0-3 Units, Subcutaneous, Twice at night Insulin Lispro, 3 Units, Subcutaneous, TID with meals levothyroxine, 150 mcg, Oral, q AM mupirocin, 1 Application, Each Nostril, BID pantoprazole, 40 mg, Oral, Daily piperacillin-tazobactam, 4.5 g, Intravenous, q6h rosuvastatin, 20 mg, Oral, Nightly senna, 2 tablet, Oral, Nightly Insert peripheral IV, , , Once AND Saline lock IV, , , Once AND sodium chloride, 10 mL, Intravenous, q12h AND sodium chloride, 10 mL, Intravenous, PRN tamsulosin, 0.8 mg, Oral, Daily with dinner valACYclovir, 500 mg, Oral, Daily * Care Plan - Juana Bettencourt RN - 07/19/2024 12:32 AM EDT Problem: Adult Inpatient Plan of Care Goal: Plan of Care Review Outcome: Ongoing, Progressing Goal: Patient-Specific Goal (Individualized) Outcome: Ongoing, Progressing Goal: Absence of Hospital-Acquired Illness or Injury Outcome: Ongoing, Progressing Goal: Optimal Comfort and Wellbeing Outcome: Ongoing, Progressing Goal: Readiness for Transition of Care Outcome: Ongoing, Progressing Problem: Mobility Impairment Goal: Optimal Mobility Outcome: Ongoing, Progressing Problem: Infection Goal: Absence of Infection Signs and Symptoms Outcome: Ongoing, Progressing * Progress Notes - Edgardo Corbett MD - 07/18/2024 2:00 PM EDT Subjective: No acute events overnight Review of Systems: Constitutional: no fevers, no weakness, no weight loss, normal appetite Cardiovascular: no chest pain, no palpitations, no edema Respiratory: no shortness of breath, no cough Gastrointestinal: no nausea, no vomiting, no diarrhea, no constipation, no abdominal pain Musculoskeletal: no back pain, no shoulder pain, no hip pain, no knee pain All other review of systems are negative. Active Medications: Current Scheduled Medications[1] Current Continuous Medications[2] Current PRN Medications[3] Objective: Visit Vitals BP 116/74 Pulse 72 Temp 36.7 ??C (98 ??F) Resp 18 Ht 1.753 m (5' 9 ) Wt 82.1 kg (181 lb) SpO2 96% BMI 26.73 kg/m?? Smoking Status Never BSA 2 m?? Physical Exam: General: AOx3, no acute distress, well-nourished Cardiovascular: regular s1/s2, no murmurs, no JVD, no lower extremity edema Pulmonary: clear, no crackles, no wheezes, non-labored Abdom: normal bowel sounds, soft, non-tender, non-distended Muskuloskeletal: full RoM in BUE, full RoM in Knees, full RoM in Hips Dermatologic: no rashes, no lesions, no ulcers Labs: Lab Results Component Value Date NA 140 07/18/2024 K 3.5 (L) 07/18/2024 CL 105 07/18/2024 CO2 28 07/18/2024 BUN 8 07/18/2024 CREATININE 0.78 07/18/2024 ALT 29 07/18/2024 AST 30 07/18/2024 Lab Results Component Value Date WBC 5.15 07/18/2024 HGB 9.8 (L) 07/18/2024 PLT 121 (L) 07/18/2024 MCV 89 07/18/2024 ASSESSMENT/PLAN: Soledad Gold: 68yo Male PMHx CAD s/p 5V CABG in 2001/SANDY x2 in 2009/SANDY x3 in 2017, HFrEF, DM-2, RAon plaquenil, MICAELA (intolerant of CPAP), transferred from OSH after fall down stairs. #) Recurrent Multifocal pneumonia #) Acute hypoxic respiratory failure #) Bronchiectasis He has had 3 episodes of Pneumonia since April 2024, improves on Abx but never fully resolves /Results: OSH CT showed multifocal PNA Procalcitonin >4, RVP negative, Strep Pneumo and Legionella Urine Ag negative negative COVID-19 PCR Blood cultures pending /Plan: - Empiric antibiotics (plan 7 days) Pip/Tazo - Duoneb q6h x 24h, then PRN - Hypertonic 3% saline neb twice daily PRN - Mucinex 600 mg twice daily PRN #) Fall other stairs and steps, initial encounter #) Weakness, Debility, Reduced Mobility He uses cane/walker at baseline CT imaging multifocal PNA, but no acute intracranial findings, acute fracture or malalignment. Fall when he lost balance, falling down 12-15 when stairs, and landing on concrete. Denies LOC, but hit his head. On aspirin and Plavix, last dose yesterday. He denies chest pain, palpitations, shortness of breath, or lightheadedness. TSH is normal, B12 is low-normal /Plan: - PT/OT - Halter monitor on discharge #) Oropharyngeal dysphagia #) Esophageal stricture Last esophageal dilation around 1yr ago Evaluated by Speech on 07/18. /Plan: - Aspiration precautions #) Chronic Heart Failure, Preserved Ejection Fraction, Ischemic follows with Cardiology at [facility] 04/03/24 ECHO: LVEF 50-55%, mild LVH, grade I/IV or mild diastolic dysfunction /Plan: - Angiotensin Blockade Hold due to ELIZABETH - Beta Blockade Hold due to low BP #) Coronary Artery Disease 5V CABG (2001), SANDY x2 (2009), SANDY x3 (2016) Troponin HS delta not significant, EKG no acute ischemic changes /Plan: - Hold Metoprolol - Continue gome ASA and Clopidogrel - continue rosuvastatin #) Diabetes /Plan: - Insulin Reduce Glargine 20-->10U QHS Sliding scale #) Chronic kidney disease, Stage 3a follows with Nephrology at [facility] - Monitor #) Rheumatoid arthritis follows with Rheumatology at [facility]. Home regimen is Gloster 10 Q6h PRN /Plan: - continue Hydroxychloroquine - Oxycodone 10mg PO Q6h PRN #) Chronic Anemia -trend Hgb, transfuse to keep >7 #) Fluids/Nutrition He is already DNR/DNI, and he may elect for regular diet - Puree diet #) Prophylaxis - Enoxaparin subcu #) Discharge Planning - Halter monitor on discharge #) Code Status DNR/DNI Edgardo Corbett MD PhD Division of Hospital Medicine [phone] [1] acetaminophen, 1,000 mg, Oral, q8h allopurinol, 300 mg, Oral, Daily aspirin, 81 mg, Oral, Daily clopidogrel, 75 mg, Oral, Daily donepezil, 10 mg, Oral, Nightly DULoxetine, 120 mg, Oral, Daily enoxaparin, 40 mg, Subcutaneous, Daily finasteride, 5 mg, Oral, Daily gabapentin, 800 mg, Oral, TID hydroxychloroquine, 400 mg, Oral, Daily insulin glargine-yfgn, 10 Units, Subcutaneous, Nightly insulin lispro, 0-5 Units, Subcutaneous, TID with meals insulin lispro, 0-3 Units, Subcutaneous, Twice at night Insulin Lispro, 3 Units, Subcutaneous, TID with meals levothyroxine, 150 mcg, Oral, q AM mupirocin, 1 Application, Each Nostril, BID pantoprazole, 40 mg, Oral, Daily piperacillin-tazobactam, 4.5 g, Intravenous, q6h rosuvastatin, 20 mg, Oral, Nightly senna, 2 tablet, Oral, Nightly sodium chloride, 10 mL, Intravenous, q12h tamsulosin, 0.8 mg, Oral, Daily with dinner valACYclovir, 500 mg, Oral, Daily [2] [3] PRN medications: glucose OR dextrose OR glucagon (human recombinant), guaiFENesin, oxyCODONE, polyethylene glycol, Insert peripheral IV AND Saline lock IV AND sodium chloride AND sodium chloride, sodium chloride, traZODone * Progress Notes - Vivi Brunson - 07/18/2024 9:58 AM EDT Occupational Therapy Treatment Patient Name: Soledad Gold Today's Date: 07/18/2024 OT Discharge Recommendations: Home with 24 hour assistance, Home health PT, Home health OT Equipment Recommended: Patient owns appropriate equipment Subjective Patient agreeable to treatment. Participants in Care Family/Caregiver Present: No Birth Attendant: Not Applicable Presentation Lines and Tubes: Telemetry, Intravenous access Pre-Session: Supine, Lines intact, Head of bed elevated Pre-Session Comments: RN and pt agreeable to therapy session. Post-Session: Lines intact, RN notified, Call light in reach, Sitting in chair, Chair alarm Post-Session Comments: all needs met Precautions Medical Precautions: Fall precautions Objective Pain 6/10 pain in bilateral hands and feet. RN made aware and present to administer pain medication. Delirium Screening Thomas Agitation Sedation Scale (RASS): Alert and calm Confusion Assessment Method-ICU (CAM-ICU/PCAM-ICU) Feature 3: Altered Level of Consciousness: Negative Cognition Cognition Mood/Behavior: Alert Bed Mobility Bed Mobility Exam: Rolling/Turning Level of [place]: Stand-by assist Physical/Nonphysical Assist: Supervision Bed Mobility Exam: Scooting/Bridging Level of [place]: Stand-by assist Physical/Nonphysical Assist: Supervision Bed Mobility Exam: Supine to Sit Level of [place]: Stand-by assist Physical/Nonphysical Assist: Verbal Cues, HOB elevated, Supervision Assistive Device: Bed rails Transfers Transfer Exam: Sit to stand Level of [place]: Contact guard Physical/Nonphysical Assist: Verbal Cues, Set-up required, Minimal cues Assistive Device: Walker, rolling Transfer Exam: Stand to Sit Level of [place]: Contact guard Physical/Nonphysical Assist: Set-up required, Verbal Cues, Minimal cues Assistive Device: Walker, rolling Functional Mobility Device: Rolling walker Assistance: Contact guard assist Ambulation Comments: Patient completed functional mobility of household chore with CGA and verbal cues for safety. Balance Static Sitting Balance Static Sitting-Balance Support: Feet supported Static Sitting-Level of Assistance: Standby assist Dynamic Sitting Balance Dynamic Sitting-Balance Support: Feet supported Dynamic Sitting-Balance: Lateral weight shifts, Anterior/Posterior weight shifts Level of Assistance: Standby assisst Static Standing Balance Static Standing-Balance Support: Right upper extremity support, Left upper extremity support Static Standing-Level of Assistance: Contact guard Dynamic Standing Balance Dynamic Standing-Balance Support: Right upper extremity support, Left upper extremity support Dynamic Standing-Balance: Lateral weight shifts, Anterior/Posterior weight shifts Dynamic Standing Level of Assistance: Contact guard Self-Care Interventions Self Care/Home Management (ADLs) Time Entry: 30 Education was provided on the principles of pacing, planning, prioritizing, and positioning. Therapist demonstrated and discussed use of adaptive strategies such as sitting during tasks, scheduling rest breaks, delegating activities, and organizing frequently used items for easier access. Patient actively engaged, asked relevant questions, and demonstrated understanding by identifying tasks wheretechniques could be used. Grooming Grooming Level of Assistance: Contact guard Grooming Where Assessed: Standing sinkside Grooming Interventions: Patient stood at the sink x5 minutes to complete grooming/hygiene tasks with CGA for balance. Patient completed oral hygiene, hand hygiene, and washed face. Patient demo'd good dynamic balance while reaching in various planes. Lower Extremity Dressing Sock Level of Assistance: Close supervision LE Dressing Interventions: While sitting in recliner chair, patient able to bend over and pull up socks with supervision. Toileting Toileting Level of Assistance: Contact guard Where Assessed: Toilet Toileting Interventions: Patient walked from the bed to the bathroom with CGA and use of RW. Patient stood at the toilet to void with CGA for balance. Patient able to complete clothing management with CGA. Therapeutic Exercise (13 minutes) OT instructed pt in bilateral UE exercises while seated in chair to address strength, pulmonary function, and activity tolerance. Pt performed shoulder flexion, scapular squeezes, forward punches, bicep curl, and shoulder shrugs with AROM x 10 reps each. Pt instructed to perform prescribed HEP 3 times a day. Skilled time was taken by OT to instruct patient in appropriate form and complete performance of exercises, feedback provided on execution and considerations for maximal benefit of activityfor strengthening for increased ADL and IADL participation. Access Code: [email or web address] URL: [email or web address] Date: 07/18/2024 Prepared by: Vivi Brunson Exercises - Seated Shoulder Shrugs - 3 x daily - 7 x weekly - 1 sets - 10 reps - Seated Shoulder Shrug Circles AROM Forward - 3 x daily - 7 x weekly - 1 sets - 10 reps - Seated Shoulder Shrug Circles AROM Backward - 3 x daily - 7 x weekly - 1 sets - 10 reps - Seated Shoulder Flexion - 3 x daily - 7 x weekly - 1 sets - 10 reps - Seated Elbow Flexion and Extension AROM - 3 x daily - 7 x weekly - 1 sets - 10 reps - Seated Punches - 3 x daily - 7 x weekly - 1 sets - 10 reps Assessment Patient demonstrated an increase in balance, strength, endurance, and ability to complete ADLs. Patient still presents with decreased activity tolerance, however, continues to show improvement. Patient is close to baseline, and therfore, does not require acute rehab. Once medically appropriate, patient will be safe to return home with 24 hour assist. Patient will benefit from home health PT/OT. Patient will continue to benefit from skilled OT services to improve occupational performance and quality of life. Skilled time for room set- up to promote safe treatment. OT Recommendations Discharge Destination: Home with 24 hour assistance, Home health PT, Home health OT Discharge Equipment: Patient owns appropriate equipment Plan Continue plan of care. Goals OT GOAL DETAILS Goal Established Date Time Frame Goal Status OT Goal 1: Pt will complete lower body dressing with mod A and AAD PRN. 07/16/24 2 weeks OT Goal 2: Pt will complete grooming while standing at sink with CGA and AAD PRN. 07/16/24 2 weeks OT Goal 3: Patient will complete functional mobility to and from bathroom/toilet with SBAx 1 and AAD 07/16/24 2 weeks OT Goal 4: Pt will complete toileting including clothing management and personal hygiene with SBA and AAD PRN. 07/16/24 Written by Vivi Brunson on 07/18/24 at 10:01 AM. * Progress Notes - Mo Wolf, [facility] - 07/18/2024 8:58 AM EDT INITIAL MODIFIED BARIUM SWALLOW STUDY Patient Name: Soledad Gold Age: 68 y.o. Today's Date: 07/18/2024 Recommendations: Recommend GOC discussion and consideration of the following options: - Comfort-focused diet: Pureed (IDDSI Level 4) and Thin liquids (IDDSI Level 0) via small single sips, cough and re-swallow after each drink. Some aspiration is likely to occur d/t patient's dysphagia. Aggressive oral care may help to reduce risk for aspiration related pulmonary sequelae, though some level of risk remains. - Rehab-focused plan: NPO w/ alternate means for nutrition/medication and continued follow up/ repeat MBSS in ~1 week. Patient's dysphagia is chronic in nature d/t presence of esophageal strictures +recurrent PNA's + requiring thickened liquids at baseline. Sips and chips with rigorous oral care q4h. Ok for snacks of IDDSI 4 Pureed/pudding from clean supply with head turn left. History Medical History: 68 y.o. male with past history of CAD s/p 5V CABG in 2001/SANDY x2 in 2009/SANDY x3 [id number], chronic HFrEF, HTN, HLD, IDDM c/b DPN, CKD3a, gout, RA on plaquenil, chronic pain on Gloster, debility (cane/walker at baseline), MICAELA (intolerant of CPAP), hypothyroidism, BPH, GERD, and esophageal stricture c/b oropharyngeal dysphagia s/p last dilatation around a year ago transferred from OSH after fall down stairs. Current diet: Adult diet Diet texture: Easy to Chew 7; Carbohydrate restriction: Consistent Carb 2 (80 gm max/meal); Sodium restriction: 2,000 mg Na; Electrolyte Restriction: Renal; Fluid consistency: Moderately Thick 3 (Honey) Subjective Patient received alert and cooperative for MBS. Objective Respiratory Status: 1 L/min via nasal cannula Location of procedure: Radiology Suite Positioning: Lateral view and Sitting upright in wheelchair Feeding assistance: independent, self-fed Oral phase -Lip closure: No labial escape -Tongue Control During Bolus Hold: Cohesive bolus between tongue and palatal seal -Bolus Preperation/Mastication: Solid not assessed -Bolus Transport/Lingual Motion: Brisk -Oral Residue/Amount: Trace residue -Oral Residue Location: Tongue Pharyngeal phase: -Swallow initiation: Impaired - laryngeal vestibule x1 trial -Soft palate elevation: No bolus between soft palate/pharyngeal wall -Laryngeal elevation: Partial -Anterior hyoid excursion: Complete -Epiglottic inversion: Partial -Vestibule closure: Incomplete -Pharyngeal stripping wave: Partial -BOT retraction: Incomplete - Pharyngeal residue amount: Majority - Pharyngeal residue location: Valleculae, Lateral channels, and Pyriform sinuses -UES: Partial distension -- see radiology report for further details PENETRATION/ASPIRATION: Consistency & Method of Administration 1 2 3 4 5 6 7 8 Comments IDDSI 0 thins via tsp [] [] [x] [] [x] [] [] [] 3 before the swallow 5 during the swallow IDDSI 2 mildly thick (nectar) via tsp [] [] [x] [] [] [] [] [] During/after the swallow IDDSI 3 moderately thick (honey) via tsp (w/ chin tuck) [] [] [x] [] [] [] [] [] During/after the swallow IDDSI 4 Pudding [x] [] [] [] [] [] [] [] Description of Penetration/Aspiration Scale: 1. Material does not enter airway. 2. Material enters airway, remains above the vocal folds, and is ejected from the airway. 3. Material enters airway, remains above the vocal folds, and is not ejected from the airway. 4. Material enters airway, contacts the vocal folds, and is ejected from the airway. 5. Material enters airway, contacts the vocal folds, and is not ejected from the airway. 6. Material enters airway, passes below the vocal folds, and is ejected from trachea. 7. Material enters airway, passes below the vocal folds, and is not ejected from the trachea despite effort. 8. Material enters airway, passes below the vocal folds, and no effort is made to eject. (Matias Massey, et al. A penetration-aspiration scale. Dysphagia. 1996;11(2):93-8.) Assessment Patient presents with oral phase WFL and severe pharyngeal dysphagia. Oral phase is characterized by timely A-P movement with pudding consistency. Trace oral residue on the tongue, reduced with subsequent swallows. Pharyngeal phase was characterized by impaired airway protection and pharyngeal inefficiency. Penetration observed before the swallow with thin liquids 2/2 mistiming. Penetration during the swallow with all liquid consistencies 2/2 reduced laryngeal vestibular closure. Collection of diffuse pharyngeal residue with all consistencies 2/2 reduced BOT retraction and pharyngeal contraction. Multiple effortful re-swallows and a chin tuck ineffective in reducing residue. Compensatory strategy of a head turn left effective in reducing pharyngeal residue with pudding consistency. Due toinability to clear residue with liquids, penetration continued to occur after the swallow with nectar/honey thick liquids. Delayed initiation of the swallow to the laryngeal vestibule x1 trial. Recommend GOC discussion and consideration of rehab-focused plan vs comfort- focused plan. Prognosis: Fair for improved function with skilled speech pathology services focusing on stated goals. Patient Education was provided via verbal instruction to patient re: recommendations. Will continueto provide education in subsequent sessions as warranted. Results and recommendations of this evaluation were communicated to: RN/Team Plan / Recommendations Diet recommendations: Recommend GOC discussion and consideration of the following options: - Comfort-focused diet: Pureed (IDDSI Level 4) and Thin liquids (IDDSI Level 0) via small single sips, cough and re-swallow after each drink. Some aspiration is likely to occur d/t patient's dysphagia. Aggressive oral care may help to reduce risk for aspiration related pulmonary sequelae, though some level of risk remains. - Rehab-focused plan: NPO w/ alternate means for nutrition/medication and continued follow up/ repeat MBSS in ~1 week. Patient's dysphagia is chronic in nature d/t presence of esophageal strictures +recurrent PNA's + requiring thickened liquids at baseline. Sips and chips with rigorous oral care q4h. Ok for snacks of IDDSI 4 Pureed/pudding from clean supply with head turn left. Therapy Frequency: 3x week for 2 weeks Goals Patient will tolerate snacks of IDDSI 4 Pureed (w/ HTL) without overt signs/symptoms of aspiration. Patient will participate in dysphagia tx targeting: closure, BOT retraction, pharyngeal contraction. * Care Plan - Juana Bettencourt RN - 07/18/2024 2:54 AM EDT Problem: Adult Inpatient Plan of Care Goal: Plan of Care Review Outcome: Ongoing, Progressing Goal: Patient-Specific Goal (Individualized) Outcome: Ongoing, Progressing Goal: Absence of Hospital-Acquired Illness or Injury Outcome: Ongoing, Progressing Goal: Optimal Comfort and Wellbeing Outcome: Ongoing, Progressing Goal: Readiness for Transition of Care Outcome: Ongoing, Progressing Problem: Mobility Impairment Goal: Optimal Mobility Outcome: Ongoing, Progressing Problem: Infection Goal: Absence of Infection Signs and Symptoms Outcome: Ongoing, Progressing * Progress Notes - Edgardo Corbett MD - 07/17/2024 1:01 PM EDT Subjective: No acute events overnight Review of Systems: Constitutional: no fevers, no weakness, no weight loss, normal appetite Cardiovascular: no chest pain, no palpitations, no edema Respiratory: no shortness of breath, no cough Gastrointestinal: no nausea, no vomiting, no diarrhea, no constipation, no abdominal pain Musculoskeletal: no back pain, no shoulder pain, no hip pain, no knee pain All other review of systems are negative. Active Medications: Current Scheduled Medications[1] Current Continuous Medications[2] Current PRN Medications[3] Objective: Visit Vitals BP 133/69 Pulse 76 Temp 37.2 ??C (99 ??F) Resp 18 Ht 1.753 m (5' 9 ) Wt 82.1 kg (181 lb) SpO2 93% BMI 26.73 kg/m?? Smoking Status Never BSA 2 m?? Physical Exam: General: AOx3, no acute distress, well-nourished Cardiovascular: regular s1/s2, no murmurs, no JVD, no lower extremity edema Pulmonary: clear, no crackles, no wheezes, non-labored Abdom: normal bowel sounds, soft, non-tender, non-distended Muskuloskeletal: full RoM in BUE, full RoM in Knees, full RoM in Hips Dermatologic: no rashes, no lesions, no ulcers Labs: Lab Results Component Value Date NA 140 07/17/2024 K 3.5 (L) 07/17/2024 CL 105 07/17/2024 CO2 27 07/17/2024 BUN 10 07/17/2024 CREATININE 0.85 07/17/2024 ALT 30 07/17/2024 AST 27 07/17/2024 Lab Results Component Value Date WBC 5.26 07/17/2024 HGB 9.0 (L) 07/17/2024 PLT 105 (L) 07/17/2024 MCV 90 07/17/2024 ASSESSMENT/PLAN: Soledad Gold: 68yo Male PMHx CAD s/p 5V CABG in 2001/SANDY x2 in 2009/SANDY x3 in 2017, HFrEF, DM-2, RAon plaquenil, MICAELA (intolerant of CPAP), transferred from OSH after fall down stairs. #) Recurrent Multifocal pneumonia #) Acute hypoxic respiratory failure #) Bronchiectasis He has had 3 episodes of Pneumonia since April 2024, improves on Abx but never fully resolves /Results: OSH CT showed multifocal PNA Procalcitonin >4, RVP negative, Strep Pneumo and Legionella Urine Ag negative negative COVID-19 PCR Blood cultures pending /Plan: - Empiric antibiotics Pip/Tazo - Duoneb q6h x 24h, then PRN - Hypertonic 3% saline neb twice daily PRN - Mucinex 600 mg twice daily PRN #) Fall other stairs and steps, initial encounter #) Weakness, Debility, Reduced Mobility He uses cane/walker at baseline CT imaging multifocal PNA, but no acute intracranial findings, acute fracture or malalignment. Fall when he lost balance, falling down 12-15 when stairs, and landing on concrete. Denies LOC, but hit his head. On aspirin and Plavix, last dose yesterday. He denies chest pain, palpitations, shortness of breath, or lightheadedness. /Plan: - PT/OT #) Oropharyngeal dysphagia #) Esophageal stricture Last esophageal dilation around 1yr ago /Plan: -Aspiration precautions #) Chronic Heart Failure, Preserved Ejection Fraction, Ischemic follows with Cardiology at [facility] 04/03/24 ECHO: LVEF 50-55%, mild LVH, grade I/IV or mild diastolic dysfunction /Plan: - Angiotensin Blockade Hold EVERETT/ARB due to concern for low blood pressure - Beta Blockade Hold Beta-Asmita due to hypotension #) Coronary Artery Disease 5V CABG (2001), SANDY x2 (2009), SANDY x3 (2017) Troponin HS delta not significant, EKG no acute ischemic changes /Plan: - hold metoprolol XL acutely - Resume ASA and Clopidogrel - continue rosuvastatin #) Chronic kidney disease, Stage 3a follows with Nephrology at [facility] - Monitor #) Rheumatoid arthritis follows with Rheumatology at [facility]. Home regimen is Gloster 10 Q6h PRN /Plan: - continue Hydroxychloroquine - Oxycodone 10mg PO Q6h PRN #) Chronic Anemia -trend Hgb, transfuse to keep >7 #) Fluids/Nutrition - Easy to Chew diet #) Prophylaxis - SCDs #) Code Status DNR/DNI Edgardo Corbett MD PhD Division of Hospital Medicine [phone] [1] acetaminophen, 1,000 mg, Oral, q8h allopurinol, 300 mg, Oral, Daily aspirin, 81 mg, Oral, Daily clopidogrel, 75 mg, Oral, Daily donepezil, 10 mg, Oral, Nightly DULoxetine, 120 mg, Oral, Daily enoxaparin, 40 mg, Subcutaneous, Daily finasteride, 5 mg, Oral, Daily gabapentin, 800 mg, Oral, TID hydroxychloroquine, 400 mg, Oral, Daily insulin glargine-yfgn, 20 Units, Subcutaneous, Nightly insulin lispro, 0-5 Units, Subcutaneous, TID with meals insulin lispro, 0-3 Units, Subcutaneous, Twice at night Insulin Lispro, 3 Units, Subcutaneous, TID with meals levothyroxine, 150 mcg, Oral, q AM pantoprazole, 40 mg, Oral, Daily piperacillin-tazobactam, 4.5 g, Intravenous, q6h rosuvastatin, 20 mg, Oral, Nightly senna, 2 tablet, Oral, Nightly sodium chloride, 10 mL, Intravenous, q12h tamsulosin, 0.8 mg, Oral, Daily with dinner valACYclovir, 500 mg, Oral, Daily [2] [3] PRN medications: glucose OR dextrose OR glucagon (human recombinant), guaiFENesin, oxyCODONE, polyethylene glycol, Insert peripheral IV AND Saline lock IV AND sodium chloride AND sodium chloride, sodium chloride, traZODone * ED Notes - Coral Crystal RN - 07/16/2024 4:47 PM EDT Pt taken to -861. PT in NAD on exit from ED and has all belongings on exit. Coral Crystal RN 07/16/24 [id number] * Progress Notes - Ld Mendez CCC-TIGHT COOPER - 07/16/2024 1:30 PM EDT Speech Language Pathology Clinical Swallow Initial Evaluation Patient Name: Soledad Gold Age: 68 y.o. Today's Date: 07/16/2024 Recommendations: Easy to chew (IDDSI Level 7) diet w/ moderately thick liquids (Level 3 - honey thick). Meds as able. Recommend MBS to further assess swallow function. History/Background Information Soledad Gold is a 68 y.o. male with past history of CAD s/p 5V CABG in 2001/SANDY x2 in 2009/SANDY x3 [id number], chronic HFrEF, HTN, HLD, IDDM c/b DPN, CKD3a, gout, RA on plaquenil, chronic pain on Gloster, debility (cane/walker at baseline), MICAELA (intolerant of CPAP), hypothyroidism, BPH, GERD, and esophageal stricture c/b oropharyngeal dysphagia s/p last dilatation around a year ago transferred from OSH after fall down stairs. #multifocal PNA (3x in 3 months) #acute hypoxic respiratory failure #hx of and concern for dysphagia Of note: pt reports most recent MBS completed >2 years ago at [facility] in [facility], with recommendations for softer foods and thickened liquids. Pt also reports multiple esophageal dilatations (most recent ~ 1 yr ago), and intermittent difficulty swallowing certain solids, especially meats and breads. Pt reports he has not been compliant with thickened liquids at home. Problem List[1] Past Medical History[2] Surgical History[3] Current diet: Adult diet Diet texture: Regular; Carbohydrate restriction: Consistent Carb 2 (80 gm max/meal); Sodium restriction: 2,000 mg Na; Electrolyte Restriction: Renal; Fluid consistency: Slightly Thick 1 Subjective Soledad Gold was alert and cooperative. Identified by name and date of . RN provided verbal consent for evaluation. Objective Current diet: Adult diet Diet texture: Regular; Carbohydrate restriction: Consistent Carb 2 (80 gm max/meal); Sodium restriction: 2,000 mg Na; Electrolyte Restriction: Renal; Fluid consistency: Slightly Thick 1 Respiratory Status: 1L NC WBC: 6.11 Vitals: 07/16/24 1114 BP: 109/77 Pulse: 69 Resp: 26 Temp: 36.7 ??C (98.1 ??F) SpO2: 96% Relevant Imaging: Chest CT- Left lower lobe consolidation and multifocal airspace opacities left upper lobe and rightlower lobe concerning for multifocal pneumonia. Incidental D3 diverticulum measuring 3 cm. No acute abnormality within the abdomen and pelvis. No acute fracture or malalignment of the cervical, thoracic and lumbar spine Direction Following: WNL Oral Mechanism Report: Dentition: dentures full Oral hygiene: WFL Focused Cranial Nerve Exam: Trigeminal Nerve (V): facial sensation intact and mandible strength/ROM intact Facial Nerve (VII): buccinator strength seemingly WFL Vagus (X): volitional cough intact Spinal Accessory (XI): Not assessed Hypoglossal Nerve (XII): WFL Laryngeal Function Exam: Secretion Management: adequate Cough: - Volitional adequate - Reflexive adequate Oral Feeding Trials: Positionin-90 degrees Feeding assistance: TIGHT COOPER presented PO trials to patient Consistencies Administered: ice chips, thin liquid via teaspoon, honey thick liquid via teaspoon, honey thick liquid via cup, puree via teaspoon, and dry solid consistency Oral Stage: seemingly functional oral phase Pharyngeal Stage: pt demonstrates delayed cough following regular solid trials with endorsement of intermittent difficulty with regular solids, no overt s/s observed with any other textures 90 mL water test (Ivan & Romero, 2014): not tested this date Assessment Summary: Pt presents with known hx of dysphagia with most recent MBS >2 years ago, with reportedrecommendations for soft food and thick liquids . Pt has not recently been compliant with these recommendations at home and there is concern for possible aspiration related PNA. This exam, the pt demonstrates delayed coughing following regular solid trials, with no s/s of aspiration on any othertexture. Pt also has hx of esophageal stricture, requiring dilatation. Given hx of and endorsement of dysphagia (pharyngeal vs esophageal), further assessment via MBS is warranted. Given previously recommended modified diet, with no current s/s with recommended textures, pt may continue with IDDSI Level 7- Easy To Chew Diet with IDDSI Level 3-Moderately Thick (Honey) Liquids, at MD discretion andas pt tolerates. Prognosis: Good for improved function with skilled speech pathology services focusing on stated goals. Patient Education: All results and recommendations were reviewed with the pt, who expressed understanding and agreement. 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) Chronic arthritis due to and not concurrent with rheumatic fever ([facility]) Calcium pyrophosphate deposition disease Bronchiectasis Benign prostatic hyperplasia Benign essential hypertension Acquired thrombocytopenia ([facility]) Atherosclerosis of aorta ([facility]) Rheumatoid arthritis ([facility]) Hyperparathyroidism due to renal insufficiency (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) Type 1 diabetes mellitus with diabetic polyneuropathy ([facility]) Multifocal pneumonia Acute hypoxic respiratory failure Fall (on) (from) other stairs and steps, initial encounter Anemia of chronic disease Traumatic hematoma of flank [2] Past Medical History: Diagnosis Date [place] 07/15/2024 Atherosclerosis of aorta [place] 12/12/2018 Benign essential hypertension 12/12/2018 Benign prostatic hyperplasia 12/27/2023 Bronchiectasis 11/05/2022 Chronic diastolic heart failure (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) 09/14/2018 hydroxychloroquine, cymbalta f/w Rheum Sensorineural hearing loss (SNHL) of both ears 02/17/2024 f/w ENT Sleep apnea 06/19/2021 intolerant of CPAP Spondylolisthesis of lumbar region 10/23/2020 f/w Dr Reynoso Stage 3a chronic kidney disease [place] 07/14/2022 Tear of supraspinatus tendon 09/18/2020 R, full thickness MRI 07/2020 Type 1 diabetes mellitus with diabetic polyneuropathy ([facility]) 06/19/2020 [3] Past Surgical History: Procedure Laterality Date CARDIAC CATHETERIZATION Left 08/04/2016 s/p SANDY x 3 CARDIAC CATHETERIZATION Left 06/02/2009 s/p SANDY x 2 CHOLECYSTECTOMY COLONOSCOPY 08/11/2016 ESOPHAGEAL DILATION 2023 ESOPHAGEAL DILATION 01/2021 rec 3y f/u ESOPHAGOSCOPY / EGD 08/11/2016 EYELID SURGERY Right lateral sewn together 2/2 non-healing corneal abrasion per pt NASAL SEPTUM SURGERY THYROIDECTOMY, PARTIAL Left 1969 left and isthmus TONSILLECTOMY TOTAL HIP ARTHROPLASTY Left 1989 1989' TOTAL HIP ARTHROPLASTY Right 2014 TOTAL KNEE ARTHROPLASTY Right 1999 * Progress Notes - Renuka Boston - 07/16/2024 11:58 AM EDT Occupational Therapy Evaluation Patient Name: Soledad Gold Today's Date: 07/16/2024 OT Discharge Recommendations: Acute rehab Equipment Recommended: Defer to facility History Soledad Gold is 68 y.o. male admitted 07/15/2024 for work-up of Multifocal pneumonia. Problem List Active Hospital Problems Diagnosis Date Noted Multifocal pneumonia 07/15/2024 Acute hypoxic respiratory failure 07/15/2024 Acquired thrombocytopenia ([facility]) 07/15/2024 Fall (on) (from) other stairs and steps, initial encounter 07/15/2024 Anemia of chronic disease 07/15/2024 Traumatic hematoma of flank 07/15/2024 Bronchiectasis 11/05/2022 Stage 3a chronic kidney disease (CMS/HCC) 07/14/2022 Chronic diastolic heart failure (CMS/HCC) 12/21/2021 Oropharyngeal dysphagia 01/06/2021 Rheumatoid arthritis (CMS/HCC) 09/14/2018 Coronary arteriosclerosis 07/13/2009 Past Medical History Patient has a past medical history of Acquired thrombocytopenia (CMS/HCC) (07/15/2024), Atherosclerosis of aorta (CMS/HCC) (12/12/2018), Benign essential hypertension (12/12/2018), Benign prostatic hyperplasia (12/27/2023), Bronchiectasis (11/05/2022), Chronic diastolic heart failure (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 Past Surgical History Patient has a past surgical history that includes Cholecystectomy; Total hip arthroplasty (Left, 1989); Total hip arthroplasty (Right, 2013); Total knee arthroplasty (Right, 1999); Thyroidectomy, partial (Left, 1969); Cardiac catheterization (Left, 08/04/2016); Cardiac catheterization (Left, 06/02/2009); Colonoscopy (08/11/2016); Esophagoscopy / EGD (08/11/2016); Esophageal dilation (2023); Tonsillectomy; Nasal septum surgery; Esophageal dilation (01/2021); and Eyelid Surgery (Right). Precautions Medical Precautions: Fall precautions Subjective Patient and RN agreeable to Occupational Therapy evaluation and treatment session. Patient reports, I lost my balance and just fell down the steps. Participants in Care Family/Caregiver Present: No Birth Attendant: Not Applicable Presentation Oxygen Therapy: Supplemental oxygen O2 Delivery Method: Nasal cannula O2 Flow Rate (L/min): 1 L/min Lines and Tubes: Telemetry, Intravenous access Pre-Session: Supine, Lines intact, Head of bed elevated Pre-Session Comments: RN and pt agreeable to therapy session. Post-Session: Lines intact, RN notified, Call light in reach, Sitting in chair Post-Session Comments: Pt placed in position of comfort at end of therapy session. All needs met. RN notified. Home Living/Set-up Lives With: Spouse Home Type: House Home Adaptive Equipment: Wheelchair-manual, shower chair, Bedside commode, Rolling walker, Rollator, Cane (uses cane) Home Layout: Stairs to enter with rails, One level Number of Stairs: 4 Bathroom: Tub/Shower: Tub/Shower combo, Handheld shower head, Grab bars, Shower chair Bathroom: Toilet: Tall, Bedside commode Bathroom: Accessibility: Accessible Home Living Comments: Patient reports daughter and spouse can provide assistance. Prior Level of Function Receives Help From: No assist required prior to admission Level of Mobility: Ambulatory- community Mobility [place]: Independent gait with device History of Falls: No (unsure) ADL Performance: Independent Patient/Family Goals Statement Patient wants to return home with family. Objective Pain Patient reported 6/10 back pain and 7/10 pain in hands. At end of session, patient positioned in recliner with pillows for elevation and comfort. Delirium Screening Thomas Agitation Sedation Scale (RASS): Alert and calm Confusion Assessment Method-ICU (CAM-ICU/PCAM-ICU) Feature 3: Altered Level of Consciousness: Negative Cognition Overall Cognitive Status: Within Functional Limits Arousal/Alertness: Appropriate responses to stimuli Mood/Behavior: Alert Orientation Level: Oriented X4 Single Step Commands: Consistently, 100% of the time Multi-Step Commands: Consistently, 100% of the time Method of Communication: Verbal Vision - Basic Assessment Baseline Vision: Glasses reading Right Upper Extremity Examination RUE ROM Assessment RUE Assessment: Within Functional Limits Manual Muscle Testing - RUE: (Not formally assessed 2/2 pain.) Sensation Light Touch: Right Upper Extremity: Mild impairment (numbness and tingling at baseline) Left Upper Extremity Examination LUE ROM Assessment LUE Assessment: Within Functional Limits Manual Muscle Testing - LUE: (Not formally assessed 2/2 pain.) Sensation Light Touch: Left Upper Extremity: Mild impairment (numbness and tingling at baseline) Right Lower Extremity Examination RLE ROM Assessment RLE Assessment: Within Functional Limits Hip flexion: 3 Knee Extension: 5 Ankle Dorsiflexion: 5 Sensation Light Touch: Right Lower Extremity: Mild impairment (numbness and tingling at baseline distal to knees) Left Lower Extremity Examination LLE ROM Assessment LLE Assessment: Within Functional Limits Hip flexion: 3 Knee Extension: 5 Ankle Dorsiflexion: 5 Sensation Light Touch: Left Lower Extremity: Mild impairment (numbness and tingling at baseline distal to knees) Bed Mobility Bed Mobility Exam: Scooting/Bridging Level of [place]: Contact guard (Towards edge of bed) Physical/Nonphysical Assist: Verbal Cues Bed Mobility Exam: Supine to Sit Level of [place]: Contact guard Physical/Nonphysical Assist: Verbal Cues, HOB elevated, Moderate cues Assistive Device: Other (drawsheet) Bed Mobility Exam: Sit to Supine Level of [place]: (Not formally assessed 2/2 pt being left up in chair at end of therapy session.) Transfers Transfer Exam: Sit to stand Level of [place]: Contact guard (x2) Physical/Nonphysical Assist: Verbal Cues, Set-up required Assistive Device: Hand held assist Transfer Exam: Stand to Sit Level of [place]: Contact guard (x2) Physical/Nonphysical Assist: Set-up required, Verbal Cues Assistive Device: Hand held assist Transfer Exam: Bed to Chair/Chair to Bed Level of [place]: Contact guard Physical/Nonphysical Assist: Verbal Cues, Set-up required Type of Transfer: Sidesteps Assistive Device: Hand held assist Balance Postural Appearance Posture: Within Functional Limits, Stooped posture, Forward head Static Sitting Balance Static Sitting-Balance Support: Feet supported Static Sitting-Level of Assistance: Contact guard Dynamic Sitting Balance Dynamic Sitting-Balance Support: Feet supported Dynamic Sitting-Balance: Lateral weight shifts, Anterior/Posterior weight shifts Level of Assistance: Contact guard Static Standing Balance Static Standing-Balance Support: Right upper extremity support, Left upper extremity support (HHAx2) Static Standing-Level of Assistance: Contact guard Dynamic Standing Balance Dynamic Standing-Balance Support: Right upper extremity support, Left upper extremity support (x2) Dynamic Standing-Balance: Lateral weight shifts, Anterior/Posterior weight shifts Dynamic Standing Level of Assistance: Contact guard Self-Care Interventions Self Care/Home Management (ADLs) Time Entry: 10 Self-Care Interventions: OT facilitated bed mobility to participate in OOB ADLs and functional mobility in a upright position (see bed mobility section). OT provided physical assistance, line management and environmental adaptations to support navigation in room and decrease risk of falls. OT provided verbal cues for initiation/sequencing/termination and proper body positioning during activity. OT facilitated task modification for grading activities based on patients' level of ability throughout session. Patient engaged in static/dynamic sitting EOB ~7 minutes to encourage increased activity tolerance and strength needed for OOB ADLS. Extra time for pain management. Patient educated on importance of simulating daily routines while in house. Therapist encouraged patient to engage in OOB mobility throughout the day to increase tolerance to positional changes, prevent respiratory distress and overall support return to baseline. Feeding Feeding Level of Assistance: Setup Feeding Interventions: Anticipated based on functional performance and clinical judgement. Grooming Grooming Level of Assistance: Contact guard, Minimum assistance Grooming Interventions: Anticipated based on functional performance and clinical judgement. Bathing UE Bathing Level of Assistance: Moderate assistance LE Bathing Level of Assistance: Moderate assistance Bathing Interventions: Anticipated based on functional performance and clinical judgement 2/2 balance and pain. UE Dressing UE Dressing Level of Assistance: Contact guard UE Dressing Interventions: Patient demo'd ability to adjust shirt sitting EOB with CGA for balance. Lower Extremity Dressing Pants Level of Assistance: Moderate assistance Sock Level of Assistance: Maximum assistance Adult Briefs Level of Assistance: Moderate assistance LE Dressing Interventions: Patient reported soiled shorts after using urinal. Patient with difficulty acheiving modified dressing technique 2/2 pain from fall requiring therapist to spring socks. Additionally, patient reported he is unable to acheive figure four position at baseline with right leg 2/[address] Im usually able to just reach my feet. Due to pain, therapist threaded pants through feet and to knees. Patient completed x2 sit to stands with CGA and required assistance to spring over bottom. Pt able to complete the rest with CGA for balance. Toileting Toileting Level of Assistance: Contact guard, Minimum assistance Toileting Interventions: In preparation for activity demands of toileting, patient completed x 1 trial of low surface sit<>stand to simulate toilet transfer. Patient required CGA, HHAx2 and verbal cues for hand placement. Patient maintained static standing ~1 minute with CGA for balance. Patient then completed 2-3 sidesteps from EOB<>recliner to simulate bed to bedside commode transfer with CGA. Patient required verbal/tactile cues for proper body positioning during transitional movement. Anticipate patient would required Min A for all steps of toileting including christiane-care and LBclothing management. Patient reported increased pain upon sit and further activity deferred. OT encouraged functional mobility with direct care staffer to toilet for increased tolerance to positional changes and progression towardsbaseline with toileting tasks. Standardized Assessments [facility] 6-Click Daily Activities Help from Other: Don/Doff Regular Lower Body Clothings: A lot Help From Other: Bathing: A lot Help From Other: Toileting: A lot Help From Other: Don/Doff Upper Body Clothings: Little Help From Other: Grooming: Little Help From Other: Eating Meals: None [facility] 6 Click - Daily Activities Score: 16 Assessment Patient responded to OT Evaluation and treatment session focused on ADL and functional transfer tasks fair this date with rest as needed and vital signs stable. Patient cooperative throughout session, however, remains limited by pain, fatigue and balance deficits. Per patient report, patient was previously independent with ADL and mobility tasks, however, is nowrequiring varying levels of physical assistance for safe completion of mobility and self care. Additionally, patient's slowed pacing during mobility would limit rapid access to exit routes in home, bathroom if experiencing bowel/bladder urgency, and with other home safety scenarios. Patient demo'd deficits in ADL performance, functional endurance, functional mobility and would continue to benefitfrom skilled inpatient OT treatment to address deficits and increase safety and independence. Patient would additionally benefit from acute rehab placement at discharge to increase independence with functional ADLs, expedite return to valued occupations, increase home safety, and decrease caregiverburden. OT Findings: Impaired ADL performance, Impaired IADL performance, Impaired functional mobility, Impaired postural/trunk control, Decreased endurance/ventilation/gas exchange, Impaired balance Evaluation/Treatment Tolerance: Patient limited by pain, Patient limited by fatigue Rehab Potential: Good, to achieve stated therapy goals Eval Complexity Occupational Profile: Expanded review of medical/therapy records and additional review of physical,cognitive, or psychosocial history Performance Deficits: Activities of daily living (ADLs), Instrumental activities of daily living (IADLs), Rest and sleep, Leisure, Social participation, Habits, Routines, Roles Clinical Decision Making: Moderate Overall Eval complexity: Moderate OT Recommendations Discharge Destination: Acute rehab Discharge Equipment: Defer to facility Plan Progress towards baseline with ADLS/IADLs and functional mobility. Planned OT Interventions ADL retraining, IADL retraining, Balance training, Bed mobility Training, Joint mobilization, ROM, Strengthening, Transfer training, Stretching, Functional mobility, Caregiver education OT Frequency 2 - 5 times per week OT Duration 2 weeks Goals OT GOAL DETAILS Time Frame OT Goal 1: Pt will complete lower body dressing with mod A and AAD PRN. 2 weeks OT Goal 2: Pt will complete grooming while standing at sink with CGA and AAD PRN. 2 weeks OT Goal 3: Patient will complete functional mobility to and from bathroom/toilet with SBAx 1 and AAD 2 weeks OT Goal 4: Pt will complete toileting including clothing management and personal hygiene with SBA and AAD PRN. 2 weeks Written by Renuka Boston on 07/16/24 at 3:12 PM. * Progress Notes - Valerie Holguin - 07/16/2024 11:57 AM EDT Physical Therapy Evaluation Patient Name: Soledad Gold Today's Date: 07/16/2024 PT Discharge Recommendations: Acute rehab Equipment Recommended: Defer to facility History Soledad Gold is 68 y.o. male admitted 07/15/2024 for work-up of Multifocal pneumonia. Problem List Active Hospital Problems Diagnosis Date Noted Multifocal pneumonia 07/15/2024 Acute hypoxic respiratory failure 07/15/2024 Acquired thrombocytopenia (CMS/HCC) 07/15/2024 Fall (on) (from) other stairs and steps, initial encounter 07/15/2024 Anemia of chronic disease 07/15/2024 Traumatic hematoma of flank 07/15/2024 Bronchiectasis 11/05/2022 Stage 3a chronic kidney disease (CMS/HCC) 07/14/2022 Chronic diastolic heart failure (CMS/HCC) 12/21/2021 Oropharyngeal dysphagia 01/06/2021 Rheumatoid arthritis (CMS/HCC) 09/14/2018 Coronary arteriosclerosis 07/13/2009 Procedures Past Medical History Patient has a past medical history of Acquired thrombocytopenia (CMS/HCC) (07/15/2024), Atherosclerosis of aorta (CMS/HCC) (12/12/2018), Benign essential hypertension (12/12/2018), Benign prostatic hyperplasia (12/27/2023), Bronchiectasis (11/05/2022), Chronic diastolic heart failure ([facility]) (12/08), Coronary arteriosclerosis (07/13/2009), Hyperparathyroidism due to renal insufficiency (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) (09/14/2018), Sensorineural hearing loss (SNHL) of both ears (02/17/2024), Sleep apnea (06/19/2021), Spondylolisthesis of lumbar region (10/23/2020), Stage 3a chronic kidney disease ([facility]) (07/14/2022), Tear of supraspinatus tendon (09/18/2020), and Type 1 diabetes mellitus with [place] polyneurop[place] (06/19/2020). Past Surgical History Patient has a past surgical history that includes Cholecystectomy; Total hip arthroplasty (Left, 1989); Total hip arthroplasty (Right, 2013); Total knee arthroplasty (Right, 1999); Thyroidectomy, partial (Left, 1969); Cardiac catheterization (Left, 08/04/2016); Cardiac catheterization (Left, 06/02/2009); Colonoscopy (08/11/2016); Esophagoscopy / EGD (08/11/2016); Esophageal dilation (2023); Tonsillectomy; Nasal septum surgery; Esophageal dilation (01/2021); and Eyelid Surgery (Right). Precautions Medical Precautions: Fall precautions Subjective RN and pt agreeable to physical therapy initial evaluation. Participants in Care Family/Caregiver Present: No Birth Attendant: Not Applicable Presentation Oxygen Therapy: Supplemental oxygen O2 Delivery Method: Nasal cannula O2 Flow Rate (L/min): 1 L/min Lines and Tubes: Telemetry, Intravenous access Pre-Session: Supine, Lines intact, Head of bed elevated Pre-Session Comments: RN and pt agreeable to therapy session. Post-Session: Lines intact, RN notified, Call light in reach, Sitting in chair Post-Session Comments: Pt placed in position of comfort at end of therapy session. All needs met. RN notified. Home Living/Set-up Lives With: Spouse Home Type: House Home Adaptive Equipment: Wheelchair-manual, shower chair, Bedside commode, Rolling walker, Rollator, Cane (uses cane) Home Layout: Stairs to enter with rails, One level Number of Stairs: 4 Bathroom: Tub/Shower: Tub/Shower combo, Handheld shower head, Grab bars, Shower chair Bathroom: Toilet: Tall, Bedside commode Bathroom: Accessibility: Accessible Home Living Comments: Patient reports daughter and spouse can provide assistance. Prior Level of Function Receives Help From: No assist required prior to admission Level of Mobility: Ambulatory- community Mobility [place]: Independent gait with device History of Falls: No (unsure) ADL Performance: Independent Patient/Family Goals Return home at [facility]. Objective Pain Pt reports having 6/10 low back pain at start of therapy session. Pt placed in position of comfort at end of therapy session. Delirium Screening Thomas Agitation Sedation Scale (RASS): Alert and calm Confusion Assessment Method-ICU (CAM-ICU/PCAM-ICU) Feature 3: Altered Level of Consciousness: Negative Cognition Overall Cognitive Status: Within Functional Limits Arousal/Alertness: Appropriate responses to stimuli Mood/Behavior: Alert Orientation Level: Oriented X4 Single Step Commands: Consistently, 100% of the time Multi-Step Commands: Consistently, 100% of the time Method of Communication: Verbal Vision - Basic Assessment Baseline Vision: Glasses reading Right Upper Extremity Examination RUE Assessment: Within Functional Limits Manual Muscle Testing - RUE: (Not formally assessed 2/2 pain.) Sensation Light Touch: Right Upper Extremity: Mild impairment (numbness and tingling at baseline) Left Upper Extremity Examination LUE ROM Assessment LUE Assessment: Within Functional Limits Manual Muscle Testing - LUE Manual Muscle Testing - LUE: (Not formally assessed 2/2 pain.) Sensation Light Touch: Left Upper Extremity: Mild impairment (numbness and tingling at baseline) Right Lower Extremity Examination RLE ROM Assessment RLE Assessment: Within Functional Limits Manual Muscle Testing - RLE Hip flexion: 3 Knee Extension: 5 Ankle Dorsiflexion: 5 Sensation Light Touch: Right Lower Extremity: Mild impairment (numbness and tingling at baseline distal to knees) Left Lower Extremity Examination LLE Assessment: Within Functional Limits Hip flexion: 3 Knee Extension: 5 Ankle Dorsiflexion: 5 Sensation Light Touch: Left Lower Extremity: Mild impairment (numbness and tingling at baseline distal to knees) Bed Mobility Bed Mobility Interventions: Pt given verbal cues for timing/sequencing bed mobility. Bed Mobility Exam: Rolling/Turning Level of [place]: Contact guard Physical/Nonphysical Assist: Verbal Cues, Minimal cues Assistive Device: Bed rails Bed Mobility Exam: Scooting/Bridging Level of [place]: Contact guard (Towards edge of bed) Physical/Nonphysical Assist: Verbal Cues Bed Mobility Exam: Supine to Sit Level of [place]: Contact guard Physical/Nonphysical Assist: Verbal Cues, HOB elevated, Moderate cues Assistive Device: Other (drawsheet) Bed Mobility Exam: Sit to Supine Level of [place]: (Not formally assessed 2/2 pt being left up in chair at end of therapy session.) Transfers Transfer Interventions: Pt given verbal cues to push up from the side of the bed to ensure standingposition. Pt given verbal cues to reach back for the side of the bed prior to sitting down. Transfer Exam: Sit to stand Level of [place]: Contact guard (x2) Physical/Nonphysical Assist: Verbal Cues, Set-up required Assistive Device: Hand held assist Transfer Exam: Stand to Sit Level of [place]: Contact guard (x2) Physical/Nonphysical Assist: Set-up required, Verbal Cues Assistive Device: Hand held assist Transfer Exam: Bed to Chair/Chair to Bed Level of [place]: Contact guard Physical/Nonphysical Assist: Verbal Cues, Set-up required Type of Transfer: Sidesteps Assistive Device: Hand held assist Ambulation Ambulation Comments: Ambulation deferred to ensure pt and therapist safety 2/2 gross weakness, impaired balance, and poor postural control. Balance Postural Appearance Posture: Within Functional Limits, Stooped posture, Forward head Static Sitting Balance Static Sitting-Balance Support: Feet supported Static Sitting-Level of Assistance: Contact guard Dynamic Sitting Balance Dynamic Sitting-Balance Support: Feet supported Dynamic Sitting-Balance: Lateral weight shifts, Anterior/Posterior weight shifts Level of Assistance: Contact guard Static Standing Balance Static Standing-Balance Support: Right upper extremity support, Left upper extremity support (HHAx2) Static Standing-Level of Assistance: Contact guard Dynamic Standing Balance Dynamic Standing-Balance Support: Right upper extremity support, Left upper extremity support (x2) Dynamic Standing-Balance: Lateral weight shifts, Anterior/Posterior weight shifts Dynamic Standing Level of Assistance: Contact guard Therapeutic Activity (10 minutes) Refer to bed mobility and transfer sections. Pt benefited from skilled physical therapy interventions including: Monitoring of vitals to ensure activity tolerance Provision of increased time frames to support optimal level of pt participation Skilled organization and management of medical lines/tubes Environmental set-up to ensure safety and accessibility to all needed areas of treatment space Standardized Assessments Standardized Assessments Standardized Assessments: [facility] 6-Clicks Mobility Assessment [facility] 6-Clicks Mobility Assessment Difficulty patient has turning over in bed (including adjusting bedclothes, sheets, and blankets)?:A little Difficulty patient has sitting down on and standing up from a chair with arms (wheelchair, bedside commode, etc.)?: A little Difficulty patient has moving from lying on back to sitting on the side of the bed?: A little How much help does the patient need moving to and from a bed to a chair (including a wheelchair)?: A little How much help does the patient need to walk in hospital room?: Unable How much help does the patient need climbing 3-5 steps with a railing?: Unable [facility] 6-Clicks Mobility Assessment Total : 14 No data recorded Assessment Pt is a 68yoM who presents from OSH after fall down 12-15 stairs and landing on concrete. Pt tolerated therapy session well with no adverse response. Pt was previously IND and now has deficits in strength, balance, postural control, and activity tolerance and would benefit from inpatient physical therapy. Pt unable to ambulate at this time making him unable to enter/exit house in case of emergency. Pt presents at a significant functional decline from baseline and is not safe to return home at this time due to fall risk, increased caregiver burden, and increased risk for hospital re-admission.As a result, pt would be most appropriate for acute rehab upon hospital discharge. Impairments: Decreased endurance, ventilation, and/or gas exchange, Impaired gait dynamics/performance, Impaired postural/trunk control, Decreased strength, Impaired locomotion, Impaired cognition/safety awareness, Impaired functional mobility/transfers, Impaired balance, Pain Activity Limitations: Inability to ambulate community distances, Inability to ambulate household distances, Inability to transfer independently, Inability to ambulate independently, Inability to complete ADLs independently Participation Restrictions: Self-care, Home management, Community leisure Activity Tolerance: Tolerates 30 min activity with multiple rests Diagnosis: Impaired functional mobility Rehab Potential: Good, to achieve stated therapy goals Eval Complexity History Profile: 1 - 2 personal factors and/or comorbidities Clinical Presentation: Evolving clinical presentation with changing characteristics Clinical Decision Making: Moderate complexity PT Recommendations Discharge Destination: Acute rehab Discharge Equipment: Defer to facility Plan Planned PT Interventions Balance training, Bed mobility training, Gait training, Transfer training, Caregiver training, Functional Mobility, Strengthening, Neuromuscular re-education PT Frequency 2 - 5 times per week PT Duration 2 weeks Goals PT GOAL DETAILS Time Frame PT Goal 1: Pt will be IND with HEP and discharge recommendations. 2 weeks PT Goal 2: Pt will perform sup<>sut IND. 2 weeks PT Goal 3: Pt will perform STS SBA. 2 weeks PT Goal 4: Pt will ambulate 150' with LRAD and SBA. 2 weeks PT Goal 5: Pt will ambulate up/down 4 steps with CGA. 2 weeks Written by Valerie Holguin on 07/16/24 at 3:17 PM. * Progress Notes - Deb Vieira RN - 07/16/2024 11:45 AM EDT Subjective Review of Systems Objective Vitals Temp: [36.6 ??C (97.8 ??F)-36.8 ??C (98.2 ??F)] 36.7 ??C (98.1 ??F) Heart Rate: [62-72] 69 Resp: [12-42] 26 BP: (101-137)/(57-77) 109/77 Physical Exam Case Management Adult Initial Progress Note Soledad Gold 68 y.o. male CSN: [id number] Admission: 07/15/2024 4:26 PM Primary Problem: Multifocal pneumonia Heel Gouger reviewed chart and spoke with patient to complete this Initial Case Management Assessment. PCP: Elijah Serra DO Emergency Contact: Extended Emergency Contact Information Primary Emergency Contact: Stepan Gold Mobile Relation: Spouse Secondary Emergency Contact: Mi Gold Mobile Relation: Daughter Preferred language: Kinyarwanda Birth Attendant needed? No Insurance: Primary Visit Coverage Payer Plan Sponsor Code Group Number Group Name MEDICARE MEDICARE A & B Primary Visit Coverage Subscriber Subscriber ID Subscriber Name Subscriber SSN Subscriber Address [id number] SOLEDAD GOLD [id number] [id number] Secondary Visit Coverage Payer Plan Sponsor Code Group Number Group Name [employer]MENT [id number] Secondary Visit Coverage Subscriber Subscriber ID Subscriber Name Subscriber SSN Subscriber Address [id number] [place] [id number] [place], [place] [id number] Patient information: Primary Caregiver: Self Support System: Immediate family ( Stepan) Daily Living Activities: Functional Status: Independent Living Arrangements: Family [address] [facility] [address] Current DME: Equipment Currently Used at Home: cane, quad, commode chair, walker, rollator, wheelchair, manual, nebulizer Anticipated Discharge Date: TBD Patient's Discharge Goal: To d/c home once medically appropriate Assistance Available at Discharge: pt's as needed Discharge Transport: family Follow Up Transport: family Home Health / Home Infusion / Outpatient Dialysis Services[facility] the [facility] Living Will/Advance Directive/Power of Log Washer /Guardian: Have you reviewed your Advance Directive and is it valid for this stay?: Yes Additional Comments: Visited with the pt along with multidisciplinary team in morning rounds. Per attending physician dr. Torres pt is not medically ready to d/c. Pt is stating that he lives with his , as well as that he is independent with ADL's. Pt is reporting that fall happen at his daughter's home. From DME pt has cane, rollator, WC, BSC and RW. Pt does not use any O2 at home , but has nebulizer machine. Pt isreporting that he still drives, and that his will transport him home at d/c. Anticipating for the pt to be evaluated by PT/OT for d/c needs. Pt's EC is his Stepan Gold, ph#[phone]. RN CM will continue to follow and assist with d/c plan and as needed. Deb Vieira RN * Progress Notes - Dc Torres MD - 07/16/2024 7:51 AM EDT Subjective: /Interval history: Feels better however continues to have some cough. Says he feels weak and has been unsteady for thelast week Review of Systems: -ve except as above Physical Exam: Constitutional: General: He is awake. He is not in acute distress. Appearance: He is ill-appearing (chronically). Interventions: Nasal cannula in place. HENT: Head: Normocephalic and atraumatic. Comments: Contusion to left uatsdin Right Ear: Hearing normal. Left Ear: Hearing normal. Nose: Nose normal. Mouth/Throat: Lips: [place]. Mouth: Mucous membranes are dry. Pharynx: Oropharynx is clear. Uvula midline. Eyes: Extraocular Movements: Extraocular movements intact. Conjunctiva/sclera: Conjunctivae normal. Pupils: Pupils are equal, round, and reactive to light. Cardiovascular: Rate and Rhythm: Normal rate and regular rhythm. Pulses: Normal pulses. Heart sounds: Normal heart sounds. No murmur heard. No friction rub. No gallop. Pulmonary: Effort: Pulmonary effort is normal. Breath sounds: Normal breath sounds. Abdominal: General: Abdomen is protuberant. Bowel sounds are normal. There is distension (mild). Palpations: Abdomen is soft. Tenderness: There is no abdominal tenderness. There is no right CVA tenderness, left CVA tenderness, guarding or rebound. Negative signs include Jones's sign. Musculoskeletal: Right wrist: Deformity (chronic ulnar deviation) and tenderness present. Decreased range of motion.Normal pulse. Left wrist: Deformity (chronic ulnar deviation) and tenderness present. Decreased range of motion. Normal pulse. Cervical back: Neck supple. Right lower le+ Edema present. Left lower le+ Edema present. Right foot: Deformity and bunion present. Left foot: Deformity and bunion present. Skin: General: Skin is warm and dry. Capillary Refill: Capillary refill takes less than 2 seconds. Findings: Bruising (diffuse bilateral UE) and ecchymosis (demarcated with swellling to right flank/lumbar) present. Neurological: General: No focal deficit present. Mental Status: He is alert and oriented to person, place, and time. 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 Rheumatoid arthritis (CMS/HCC) Sensorineural hearing loss (SNHL) of both ears Sleep apnea Spondylolisthesis of lumbar region Stage 3a chronic kidney disease (CMS/HCC) Tear of supraspinatus tendon Type 1 diabetes mellitus with diabetic polyneuropathy (CMS/HCC) Past Surgical History: 08/04/2016: CARDIAC CATHETERIZATION; Left Comment: s/p SANDY x 3 06/02/2009: CARDIAC CATHETERIZATION; Left Comment: s/p SANDY x 2 No date: CHOLECYSTECTOMY 08/11/2016: COLONOSCOPY 2023: ESOPHAGEAL DILATION 01/2021: ESOPHAGEAL DILATION Comment: rec 3y f/u 08/11/2016: ESOPHAGOSCOPY / EGD No date: EYELID SURGERY; Right Comment: lateral sewn together 2/2 non-healing corneal abrasion per pt No date: NASAL SEPTUM SURGERY 1970: THYROIDECTOMY, PARTIAL; Left Comment: left and isthmus No date: TONSILLECTOMY 1989: TOTAL HIP ARTHROPLASTY; Left Comment: 2013: TOTAL HIP ARTHROPLASTY; Right 1999: TOTAL KNEE ARTHROPLASTY; Right Visit Vitals BP 125/62 Pulse 71 Temp 36.6 ??C (97.8 ??F) (Oral) Resp 17 Ht 1.753 m (5' 9 ) Wt 84.2 kg (185 lb 10 oz) SpO2 95% BMI 27.41 kg/m?? Smoking Status Never BSA 2.02 m?? Labs: CBC: Lab Results Component Value Date WBC 6.11 07/16/2024 HGB 9.4 (L) 07/16/2024 HGB 9.2 (L) 07/15/2024 HGB 9.9 (L) 07/15/2024 HCT 29.2 (L) 07/16/2024 HCT 28.8 (L) 07/15/2024 HCT 30.7 (L) 07/15/2024 PLT 111 (L) 07/16/2024 PLT 114 (L) 07/15/2024 MCV 89 07/16/2024 MCH 28.6 07/16/2024 MCHC 32.2 07/16/2024 RDW 16.9 (H) 07/16/2024 NRBC 0.0 07/16/2024 Differential: Lab Results Component Value Date WBC 6.11 07/16/2024 NEUTOPHILPCT 78 07/15/2024 LYMPHOPCT 11 07/15/2024 MONOPCT 9 07/15/2024 EOSPCT 1 07/15/2024 NEUTROABS 7.37 (H) 07/15/2024 Coagulation: Lab Results Component Value Date INR 1.3 (H) 07/16/2024 Renal: Lab Results Component Value Date NA 140 07/16/2024 K 3.6 07/16/2024 CL 103 07/16/2024 CO2 26 07/16/2024 BUN 13 07/16/2024 CREATININE 0.87 07/16/2024 GLUCOSE 292 (H) 07/16/2024 CALCIUM 8.4 (L) 07/16/2024 MG 2.0 07/16/2024 PHOS 3.1 07/16/2024 Liver: Lab Results Component Value Date AST 32 07/15/2024 ALT 36 07/15/2024 BILITOT 0.6 07/15/2024 Glucose: Lab Results Component Value Date PGLU 285 (H) 07/16/2024 PGLU 242 (H) 07/15/2024 PGLU 243 (H) 07/15/2024 No results found for: HGBA1C ASSESSMENT Soledad Gold is a 68 y.o. male with past history of CAD s/p 5V CABG in 2001/SANDY x2 in 2009/SANDY x3 [id number], chronic HFrEF, HTN, HLD, IDDM c/b DPN, CKD3a, gout, RA on plaquenil, chronic pain on [place], debility (cane/walker at baseline), MICAELA (intolerant of CPAP), hypothyroidism, BPH, GERD, and esophageal stricture c/b oropharyngeal dysphagia s/p last dilatation around a year ago transferred from OSH after fall down stairs. Denies LOC, but his his head and unable to get up d/t severe low back and left hip pain. On aspirin and Plavix, Patient reports worsening generalized weakness and dyspnea on exertion over the last 3 4 days with persistent dry, hacking cough beginning the night before. CT imaging multifocal PNA, but no acute intracranial findings, acute fracture or malalignment. Denies dysphagia or choking, but admits to non-compliant with thickened liquids. Takes all oral pills with apple sauce (not crushed). Multiple failed attempts with CPAP. Multifocal pneumonia - suspect aspiration Acute hypoxic respiratory failure Bronchiectasis -Hx PNA x2 in past 3 months, improves on Abx but never fully resolves -Last esophageal dilation 1y ago, non-compliant with thickened liquids -OSH CT noted multifocal PNA, with negative COVID-19 PCR -Azithromycin and Rocephin given call center associate -Procalcitonin >4 -Nasopharyngeal PCR negative -Strep Pneumo and Legionella Urine Ag negative PLAN -continue supplemental oxygen-taper as tolerated - continuous pulse ox -BCX2, sputum Cx -Empiric Zosyn -Duoneb q6h x 24h, then PRN -Hypertonic 3% saline neb twice daily PRN -Mucinex 600 mg twice daily PRN -RT for chest physiotherapy Oropharyngeal dysphagia -Last esophageal dilation around 1yr ago PLAN -Aspiration precautions -TIGHT COOPER consulted - [facility] tomorrow Fall (on) (from) other stairs and steps, initial encounter -uses cane/walker at baseline -worsening generalized weakness last 3-4 days -this AM lost balance walking to bathroom, falling down 12-15 wood stairs before landing on concrete -OSH and repeat imaging no acute fracture or malalignment PLAN -fall precautions -inpatient PT/OT consult = acute rehab - spoke with ophthalmology about his fall possibly from impaired depth perception/vision problem contributing - recommended no inpatient intervention. Patient can see his web administrator outpatient - continue home valacyclovir possibly for herpetic eye disease - exact indication not clear though Traumatic hematoma of flank -right flank/lower back 2/2 fall down stairs before landing on right side on concrete -Hgb 9.9 -> OSH Hgb 11.6 -last dose of ASA/Plavix yesterday PLAN -hold ASA/Plavix as above -madi borders of hematoma, monitor q8h, and notify provider if enlarging -low threshold for CTA if drop in Hgb, change in HDS, or increasing hematoma Anemia of chronic disease -and likely CKD in setting of acute right flank/lumbar hematoma PLAN -trend Hgb, transfuse to keep >7 Acquired thrombocytopenia ([facility]/HCC) -Plt 114, INR 1.1 PLAN -transfuse to keep Plt >50 if actively bleeding Chronic diastolic heart failure ([facility]) -follows with Cardiology at [facility] -04/03/24 ECHO: LVEF 50-55%, mild LVH, grade I/IV or mild diastolic dysfunction -NTproBNP 933 -clinically dry on exam PLAN -hold furosemide and gdmt for now given soft bp -2g Na diet, daily weight -hold ASA/Plavix while monitor hematoma/Hgb -continue rosuvastatin Stage 3a chronic kidney disease ([facility]/HCC) -avoid NSAIDS/nephrotoxins, renally dose meds based on EGFR -strict I/O, trend Cr Rheumatoid arthritis ([facility]) -follows with Rheumatology at [facility] PLAN -continue plaquenil VTE Prophylaxis: This patient does not have an active medication from one of the medication groupers. Scheduled: Current Scheduled Medications[1] Continuous: Current Continuous Medications[2] As needed: glucose, 15-30 grams of glucose, q15 min PRN Or dextrose, 12.5-25 g, q15 min PRN Or glucagon (human recombinant), 1 mg, q15 min PRN guaiFENesin, 600 mg, BID PRN oxyCODONE, 5 mg, q6h PRN polyethylene glycol, 17 g, Daily PRN sodium chloride, 10 mL, PRN sodium chloride, 3 mL, BID PRN traZODone, 150 mg, Nightly PRN -------- This patient's condition presents an acute threat to life/bodily condition and function Current drug therapy requires intensive monitoring for toxicity and therapeutic effect I personally reviewed labs, and, personally interpreted the available imaging including x-rays and groundwater monitoring technician vitals, POCT, serum electrolytes - maintain K 4-5 and Mg > 2 fall precautions, bleeding precautions, aspiration precautions, Elevate HOB, Frequent turn and position to prevent pressure sores, ambulate as tolerated, diet as tolerated. adjust doses of medications that require hepatic/renal adjustment Code status DNR/DNI Dc Torres MD Department of Internal Medicine Division of [facility] Medicine 07/16/2024 [1] acetaminophen, 1,000 mg, Oral, q8h allopurinol, 300 mg, Oral, Daily donepezil, 10 mg, Oral, Nightly DULoxetine, 120 mg, Oral, Daily finasteride, 5 mg, Oral, Daily gabapentin, 800 mg, Oral, TID hydroxychloroquine, 400 mg, Oral, Daily insulin glargine-yfgn, 20 Units, Subcutaneous, Nightly insulin lispro, 0-5 Units, Subcutaneous, TID with meals insulin lispro, 0-3 Units, Subcutaneous, Twice at night ipratropium-albuterol, 3 mL, Nebulization, q6h RT levothyroxine, 150 mcg, Oral, q AM pantoprazole, 40 mg, Oral, Daily piperacillin-tazobactam, 4.5 g, Intravenous, q6h rosuvastatin, 20 mg, Oral, Nightly senna, 2 tablet, Oral, Nightly sodium chloride, 10 mL, Intravenous, q12h tamsulosin, 0.8 mg, Oral, Daily with dinner valACYclovir, 500 mg, Oral, Daily [2] * Assessment & Plan Note - Victor M Deshpande, LAKESHIA - 07/16/2024 12:43 AM EDT Associated Problem(s): Multifocal pneumonia -Hx PNA x2 in past 3 months, improves on Abx but never fully resolves -Last esophageal dilation 1y ago, non-compliant with thickened liquids -OSH CT noted multifocal PNA, with negative COVID-19 PCR -Azithromycin and Rocephin given call center associate -Afebrile, 92% 2L NC, BP trending soft in ED -WBC 9.39, ANC 7.37 -VBG 7.45/44/51 -Procalcitonin >4 -Nasopharyngeal PCR negative -Strep Pneumo and Legionella Urine Ag negative PLAN -admit to at [place] on PCU with telemetry, continuous pulse ox x48h -Stat BCX2, MDRT, and sputum Cx -Empiric Zosyn with pharmacy dosing -Consult ID in AM -Consider Pulm Consult * Assessment & Plan Note - Victor M Deshpande APRN - 07/16/2024 12:43 AM EDT Associated Problem(s): Coronary arteriosclerosis -s/p 5V CABG (2001), SANDY x2 (2009), SANDY x3 (2016) -MAP trending 70 in ED -Troponin HS delta not significant -EKG no acute ischemic changes PLAN -hold metoprolol XL acutely--> 500 ml NS bolus over 4h -hold ASA/Plavix while monitor hematoma/Hgb -continue rosuvastatin * Assessment & Plan Note - Victor M Deshpande APRN - 07/16/2024 12:43 AM EDT Associated Problem(s): Chronic diastolic heart failure (CMS/HCC) -follows with Cardiology at [facility] -04/03/24 ECHO: LVEF 50-55%, mild LVH, grade I/IV or mild diastolic dysfunction -NTproBNP 933 -clinically dry on exam PLAN -hold furosemide with KCL overnight -Pharm Med Rec in AM re: ?lisinopril -2g Na diet, daily weight * Assessment & Plan Note - Victor M Deshpande APRN - 07/16/2024 12:43 AM EDT Associated Problem(s): Bronchiectasis -Hypertonic 3% saline neb twice daily PRN -Mucinex 600 mg twice daily PRN -Consult RT for chest physiotherapy in AM * Assessment & Plan Note - Victor M Deshpande APRN - 07/16/2024 12:43 AM EDT Associated Problem(s): Acquired thrombocytopenia ([facility]) -Plt 114, INR 1.1 PLAN -transfuse to keep Plt >50 if actively bleeding * Assessment & Plan Note - Victor M Deshpande APRN - 07/16/2024 12:43 AM EDT Associated Problem(s): Rheumatoid arthritis ([facility]) -follows with Rheumatology at [facility] PLAN -continue plaquenil and * Assessment & Plan Note - Victor M Deshpande APRN - 07/16/2024 12:43 AM EDT Associated Problem(s): Stage 3a chronic kidney disease ([facility]) -follows with Nephrology at [facility] -Cr 1.03, EGFR 78.1 -> unknown baseline Cr PLAN -UA pending -avoid NSAIDS/nephrotoxins, renally dose meds based on EGFR -strict I/O, trend Cr * Assessment & Plan Note - Victor M Deshpande APRN - 07/16/2024 12:43 AM EDT Associated Problem(s): Acute hypoxic respiratory failure -in setting of multifocal PNA -not on home O2 at baseline PLAN -Wean supplemental O2 to keep sat >92% -Duoneb q6h x 24h, then PRN * Assessment & Plan Note - Victor M Deshpande APRN - 07/16/2024 12:43 AM EDT Associated Problem(s): Fall (on) (from) other stairs and steps, initial encounter -uses cane/walker at baseline -worsening generalized weakness last 3-4 days -this AM lost balance walking to bathroom, falling down 12-15 wood stairs before landing on concrete -OSH and repeat imaging no acute fracture or malalignment PLAN -fall precautions -inpatient PT/OT consult * Assessment & Plan Note - Victor M Deshpande APRN - 07/16/2024 12:43 AM EDT Associated Problem(s): Anemia of chronic disease -and likely CKD in setting of acute right flank/lumbar hematoma PLAN -trend Hgb, transfuse to keep >7 -iron studies, ferritin pending * Assessment & Plan Note - Victor M Deshpande APRN - 07/16/2024 12:43 AM EDT Associated Problem(s): Traumatic hematoma of flank -right flank/lower back 2/2 fall down stairs before landing on right side on concrete -Hgb 9.9 -> OSH Hgb 11.6 -last dose of ASA/Plavix yesterday PLAN -hold ASA/Plavix as above -madi borders of hematoma, monitor q8h, and notify provider if enlarging -low threshold for CTA if drop in Hgb, change in HDS, or increasing hematoma * Assessment & Plan Note - Victor M Deshpande APRN - 07/16/2024 12:43 AM EDT Associated Problem(s): Oropharyngeal dysphagia -Last esophageal dilation around 1yr ago PLAN -Aspiration precautions -TIGHT COOPER consulted * H&P - Victor M Deshpande APRN - 07/15/2024 8:00 PM EDTAssociated Order(s): Consult to [facility] Images from the original note were not included. Consult to [facility] Consult performed by: Victor M Deshpande APRN Consult ordered by: Chava Stephenson MD Reason for consult: Fall, multifocal PNA Subjective Chief complaint Shortness of breath History Of Present Illness Soledad Gold is a 68 y.o. male with past history of CAD s/p 5V CABG in 2001/SANDY x2 in 2009/SANDY x3 [id number], chronic HFrEF, HTN, HLD, IDDM c/b DPN, CKD3a, gout, RA on plaquenil, chronic pain on [place], debility (cane/walker at baseline), MICAELA (intolerant of CPAP), hypothyroidism, BPH, GERD, and esophageal stricture c/b oropharyngeal dysphagia s/p last dilatation around a year ago transferred from OSH after fall down stairs. Patient reports worsening generalized weakness and dyspnea on exertion over the last 3 4 days with persistent dry, hacking cough beginning the night before. Patient currently visiting/staying at his daughter's home. This morning around 7:00 a.m. patient walking to bathroom with his cane when he lost balance, falling down 12-15 when stairs, and landing on concrete. Denies LOC, but his his head andunable to get up d/t severe low back and left hip pain. On aspirin and Plavix, last dose yesterday.Prior to falling patient denies chest pain, palpitations, shortness of breath, or lightheadedness. Transferred to local ED. Afebrile, 88% RA on arrival. Afebrile, WBC 5.8, Hgb 11.6, platelets 128, glucose 312, potassium 3.3. Troponin HS flat. CT imaging multifocal PNA, but no acute intracranial findings, acute fracture or malalignment. COVID 9 PCR negative. Azithromycin and Rocephin administered. Patient transferred to ED for higher level of care. Patient reports treated for PNA twice in the last 3 months, improves with antibiotics but never feels fully resolved. Denies dysphagia or choking, but admits to non-compliant with thickened liquids. Takes all oral pills with apple sauce (not crushed). Worsening dry cough, shortness of air, and generalized fatigue over last 24h. Sleeps semi-upright in chair. Not on home O2 at baseline. Multiple failed attempts with CPAP. Takes colestipol PRN diarrhea, negative prior infectious workup. Last BM few days ago. Denies fever, chills, sweats, URI symptoms, hemoptysis, orthopnea, PND, chest pain, palpitations, dizziness, lightheadedness, nausea/vomiting, abdominal pain, blood in stool, dysuria, hemat uria, headache, confusion. Medical/Surgical/Social/Family History Past Medical History[1] Surgical History[2] Social History[3] Family History[4] Travel History Relevant International Travel History: Travel Screening Question Response Have you been in contact with someone who was sick? No / Unsure Do you have any of the following new or worsening symptoms? None of these Have you traveled internationally or domestically in the last month? No Travel History Travel since 06/14/24 No documented travel since 06/14/24 Relevant Domestic Travel History: No foreign travel or camping. Immunizations Reviewed Allergies Iodinated contrast media, Iodine, Tape/bandaid adhesive, and Plasticized base [plastibase] Outpatient medications in system Home Medications[5] Medications ordered for hospitalization Current Scheduled Medications[6] Current Continuous Medications[7] Current PRN Medications[8] Objective Review of Systems Constitutional: Positive for activity change and fatigue. Negative for chills, diaphoresis and fever. HENT: Negative. Eyes: Negative. Respiratory: Positive for apnea (CPAP intolerant), cough and shortness of breath. Negative for choking, chest tightness, wheezing and stridor. Cardiovascular: Negative for chest pain, palpitations and leg swelling. Gastrointestinal: Negative for abdominal distention, abdominal pain, blood in stool, constipation, diarrhea, nausea and vomiting. Endocrine: Negative. Genitourinary: Positive for urgency. Negative for decreased urine volume, difficulty urinating, dysuria, flank pain, frequency, hematuria and penile discharge. Musculoskeletal: Positive for arthralgias, back pain (chronic LBP), gait problem and myalgias. Negative for neck pain and neck stiffness. Skin: Positive for color change. Allergic/Immunologic: Negative. Neurological: Positive for weakness. Negative for dizziness, syncope, facial asymmetry, speech difficulty, light-headedness, numbness and headaches. Hematological: Bruises/bleeds easily. Psychiatric/Behavioral: Negative. Physical Exam Vitals reviewed. Constitutional: General: He is awake. He is not in acute distress. Appearance: He is ill-appearing (chronically). Interventions: Nasal cannula in place. HENT: Head: Normocephalic and atraumatic. Comments: Contusion to left uatsdin Right Ear: Hearing normal. Left Ear: Hearing normal. Nose: Nose normal. Mouth/Throat: Lips: [place]. Mouth: Mucous membranes are dry. Pharynx: Oropharynx is clear. Uvula midline. Eyes: Extraocular Movements: Extraocular movements intact. Conjunctiva/sclera: Conjunctivae normal. Pupils: Pupils are equal, round, and reactive to light. Cardiovascular: Rate and Rhythm: Normal rate and regular rhythm. Pulses: Normal pulses. Heart sounds: Normal heart sounds. No murmur heard. No friction rub. No gallop. Pulmonary: Effort: Pulmonary effort is normal. Breath sounds: Normal breath sounds. Abdominal: General: Abdomen is protuberant. Bowel sounds are normal. There is distension (mild). Palpations: Abdomen is soft. Tenderness: There is no abdominal tenderness. There is no right CVA tenderness, left CVA tenderness, guarding or rebound. Negative signs include Jones's sign. Musculoskeletal: Right wrist: Deformity (chronic ulnar deviation) and tenderness present. Decreased range of motion.Normal pulse. Left wrist: Deformity (chronic ulnar deviation) and tenderness present. Decreased range of motion. Normal pulse. Cervical back: Neck supple. Right lower le+ Edema present. Left lower le+ Edema present. Right foot: Deformity and bunion present. Left foot: Deformity and bunion present. Skin: General: Skin is warm and dry. Capillary Refill: Capillary refill takes less than 2 seconds. Findings: Bruising (diffuse bilateral UE) and ecchymosis (demarcated with swellling to right flank/lumbar) present. Neurological: General: No focal deficit present. Mental Status: He is alert and oriented to person, place, and time. Psychiatric: Mood and Affect: Mood normal. Behavior: Behavior normal. Behavior is cooperative. Last Recorded Vitals Blood pressure 101/58, pulse 66, temperature 36.6 ??C (97.9 ??F), temperature source Oral, resp. rate (!) 37, weight 84.8 kg (187 lb), SpO2 94%. Results Review {Vanishing Link Review Results :[id number] I have reviewed the latest lab and imaging results. Assessment & Plan Multifocal pneumonia -Hx PNA x2 in past 3 months, improves on Abx but never fully resolves -Last esophageal dilation 1y ago, non-compliant with thickened liquids -OSH CT noted multifocal PNA, with negative COVID-19 PCR -Azithromycin and Rocephin given call center associate -Afebrile, 92% 2L NC, BP trending soft in ED -WBC 9.39, ANC 7.37 -VBG 7.45/44/51 -Procalcitonin >4 -Nasopharyngeal PCR negative -Strep Pneumo and Legionella Urine Ag negative PLAN -admit to at [place] on PCU with telemetry, continuous pulse ox x48h -Stat BCX2, MDRT, and sputum Cx -Empiric Zosyn with pharmacy dosing -Consult ID in AM -Consider Pulm Consult Acute hypoxic respiratory failure -in setting of multifocal PNA -not on home O2 at baseline PLAN -Wean supplemental O2 to keep sat >92% -Duoneb q6h x 24h, then PRN Bronchiectasis -Hypertonic 3% saline neb twice daily PRN -Mucinex 600 mg twice daily PRN -Consult RT for chest physiotherapy in AM Oropharyngeal dysphagia -Last esophageal dilation around 1yr ago PLAN -Aspiration precautions -TIGHT COOPER consulted Fall (on) (from) other stairs and steps, initial encounter -uses cane/walker at baseline -worsening generalized weakness last 3-4 days -this AM lost balance walking to bathroom, falling down 12-15 wood stairs before landing on concrete -OSH and repeat imaging no acute fracture or malalignment PLAN -fall precautions -inpatient PT/OT consult Traumatic hematoma of flank -right flank/lower back 2/2 fall down stairs before landing on right side on concrete -Hgb 9.9 -> OSH Hgb 11.6 -last dose of ASA/Plavix yesterday PLAN -hold ASA/Plavix as above -madi borders of hematoma, monitor q8h, and notify provider if enlarging -low threshold for CTA if drop in Hgb, change in HDS, or increasing hematoma Anemia of chronic disease -and likely CKD in setting of acute right flank/lumbar hematoma PLAN -trend Hgb, transfuse to keep >7 -iron studies, ferritin pending Acquired thrombocytopenia (CMS/HCC) -Plt 114, INR 1.1 PLAN -transfuse to keep Plt >50 if actively bleeding Chronic diastolic heart failure ([facility]) -follows with Cardiology at [facility] -04/03/24 ECHO: LVEF 50-55%, mild LVH, grade I/IV or mild diastolic dysfunction -NTproBNP 933 -clinically dry on exam PLAN -hold furosemide with KCL overnight -Pharm Med Rec in AM re: ?lisinopril -2g Na diet, daily weight Coronary arteriosclerosis -s/p 5V CABG (2001), SANDY x2 (2009), SANDY x3 (2016) -MAP trending 70 in ED -Troponin HS delta not significant -EKG no acute ischemic changes PLAN -hold metoprolol XL acutely--> 500 ml NS bolus over 4h -hold ASA/Plavix while monitor hematoma/Hgb -continue rosuvastatin Stage 3a chronic kidney disease ([facility]) -follows with Nephrology at [facility] -Cr 1.03, EGFR 78.1 -> unknown baseline Cr PLAN -UA pending -avoid NSAIDS/nephrotoxins, renally dose meds based on EGFR -strict I/O, trend Cr Rheumatoid arthritis ([facility]) -follows with Rheumatology at [facility] PLAN -continue plaquenil and Venous thromboembolism prophylaxis Patient on This patient does not have an active medication from one of the medication groupers. Sequential compression Diet Dietary Orders (From admission, onward) Start Ordered 07/15/242041 Adult diet Diet texture: Regular; Carbohydrate restriction: Consistent Carb 2 (80 gm max/meal); Sodium restriction: 2,000 mg Na; Electrolyte Restriction: Renal; Fluid consistency: Slightly Thick 1 Diet effective now References: IDDSI Diet Texture Guide Question Answer Comment Diet texture Regular Carbohydrate restriction: Consistent Carb 2 (80 gm max/meal) Sodium restriction: 2,000 mg Na Electrolyte Restriction: Renal Fluid consistency Slightly Thick 1 07/15/242047 Code Status DNR/DNI [1] Past Medical History: Diagnosis Date Acquired thrombocytopenia ([facility]) 07/15/2024 Atherosclerosis of aorta ([facility]) 12/12/2018 Benign essential hypertension 12/12/2018 Benign prostatic hyperplasia 12/27/2023 Bronchiectasis 11/05/2022 Chronic diastolic heart failure ([facility]) 12/21/2021 Coronary arteriosclerosis 07/13/2009 s/p CABG, SANDY x2 (2009), SANDY x3 (2016) [place]parathy[place] due to [place] insufficiency [place] 07/01/2020 NM parathyroid normal Macular degeneration 12/19/2020 Retina associates Mixed hyperlipidemia 07/13/2009 Nephrolithiasis 12/12/2018 Oropharyngeal dysphagia 01/06/2021 EGD 01/2021, dilated, rec 3y f/u Pain of left hip joint 08/27/2022 Post-surgical hypothyroidism 03/19/2019 left and isthmus 1970 Primary osteoarthritis involving multiple joints 12/12/2018 ) 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 07/21/2023 Rheumatoid arthritis [place] 09/14/2018 hydroxychloroquine, cymbalta f/w Rheum Sensorineural hearing loss (SNHL) of both ears 02/17/2024 f/w ENT Sleep apnea 06/19/2021 intolerant of CPAP Spondylolisthesis of lumbar region 10/23/2020 f/w Dr Reynoso Stage 3a chronic kidney disease [place] 07/14/2022 Tear of supraspinatus tendon 09/18/2020 R, full thickness MRI 07/2020 Type 1 diabetes mellitus with diabetic polyneuropathy [facility] [facility] [place] [2] Past Surgical History: Procedure Laterality Date CARDIAC CATHETERIZATION Left 08/04/2016 s/p SANDY x 3 CARDIAC CATHETERIZATION Left 06/02/2009 s/p SANDY x 2 CHOLECYSTECTOMY COLONOSCOPY 08/11/2016 ESOPHAGEAL DILATION 2023 ESOPHAGEAL DILATION 01/2021 rec 3y f/u ESOPHAGOSCOPY / EGD 08/11/2016 EYELID SURGERY Right lateral sewn together 2/2 non-healing corneal abrasion per pt NASAL SEPTUM SURGERY THYROIDECTOMY, PARTIAL Left 1969 left and isthmus TONSILLECTOMY TOTAL HIP ARTHROPLASTY Left 1989 1989's TOTAL HIP ARTHROPLASTY Right 2013 TOTAL KNEE ARTHROPLASTY Right 1999 [3] Social History Tobacco Use Smoking status: Never Smokeless tobacco: Never [4] History reviewed. No pertinent family history. [5] (Not in a hospital admission) [6] acetaminophen, 1,000 mg, Oral, q8h allopurinol, 300 mg, Oral, Daily donepezil, 10 mg, Oral, Nightly DULoxetine, 120 mg, Oral, Daily finasteride, 5 mg, Oral, Daily gabapentin, 800 mg, Oral, TID hydroxychloroquine, 400 mg, Oral, Daily insulin glargine-yfgn, 20 Units, Subcutaneous, Nightly insulin lispro, 0-5 Units, Subcutaneous, TID with meals insulin lispro, 0-3 Units, Subcutaneous, Twice at night ipratropium-albuterol, 3 mL, Nebulization, q6h RT lactated Ringer's, 500 mL, Intravenous, Once levothyroxine, 150 mcg, Oral, q AM pantoprazole, 40 mg, Oral, Daily piperacillin-tazobactam, 4.5 g, Intravenous, q6h rosuvastatin, 20 mg, Oral, Nightly senna, 2 tablet, Oral, Nightly sodium chloride, 10 mL, Intravenous, q12h tamsulosin, 0.8 mg, Oral, Daily with dinner valACYclovir, 500 mg, Oral, Daily [7] [8] PRN medications: glucose OR dextrose OR glucagon (human recombinant), guaiFENesin, oxyCODONE, polyethylene glycol, Insert peripheral IV AND Saline lock IV AND sodium chloride AND sodium chloride, sodium chloride, traZODone * ED Provider Notes - Gretchen Landeros MD - 07/15/2024 4:26 PM EDT - HPI Chief Complaint Patient presents with Shortness of Breath HPI Patient is a 68-year-old male with past medical history of type 1 diabetes, hypothyroidism, arthritis presenting to the emergency department from outside hospital after a fall patient reports that hehas been having worsening shortness of breath, weakness and unsteady gait for the past 3-4 days. Today was walking to his restroom when he lost his balance and fell down 12-15 steps. It is nonambulatory following the event taken to an outside hospital where he had CT head and lumbar spine performedthat showed no acute findings however he did have a chest x-ray concerning for multifocal pneumoniawas given Rocephin and azithromycin and transferred [facility] for further management. On arrival, denies he adache, chest pain, nausea or vomiting. Endorses chest wall tenderness, R ankle pain, posterior L hip pain. Patient History Past Medical History[1] Surgical History[2] Family History[3] Social History[4] Allergies: Allergies[5] Physical Exam ED Triage Vitals [07/15/24 1636] Temp Heart Rate Resp BP 36.7 ??C (98 ??F) 65 (!) 42 112/65 SpO2 Temp Source Heart Rate Source Patient Position 96 % Oral Monitor Lying BP Location FiO2 (%) Right arm -- Physical Exam Vitals and nursing note reviewed. Constitutional: General: He is not in acute distress. Appearance: He is well-developed. HENT: Head: Normocephalic and atraumatic. Eyes: Conjunctiva/sclera: Conjunctivae normal. Cardiovascular: Rate and Rhythm: Normal rate and regular rhythm. Heart sounds: No murmur heard. Pulmonary: Effort: Pulmonary effort is normal. No respiratory distress. Breath sounds: Normal breath sounds. Chest: Chest wall: Tenderness (L anterior) present. Abdominal: Palpations: Abdomen is soft. Tenderness: There is no abdominal tenderness. Musculoskeletal: General: No swelling. Cervical back: Neck supple. Skin: General: Skin is warm and dry. Capillary Refill: Capillary refill takes less than 2 seconds. Comments: Abrasions and skin tears to bilateral upper extremities Neurological: General: No focal deficit present. Mental Status: He is alert. Psychiatric: Mood and Affect: Mood normal. EASI ?? Total Score: 0 No data recorded TRST Assessment Total: 1 ED Course & MDM - Assessment: 68 y.o. male presents to ED with complaint of fall, pneumonia. It should be noted that the chronic conditions includes T1DM, which currently is not at goal therapy. This complicates the clinical picture because it Comorbidities: may be exacerbating symptoms and increases the amount and complexity of data to be reviewed Differential Diagnosis: orthopedic injuries, pulmonary contusions, ptx, intrathoracic injury, intraabdominal injury, tbi, concussion, uti In order to fully explore the differential diagnosis the following treatments and tests were ordered: ED Medication Administration from 07/15/2024 1134 to 07/15/2024 1800 Date/Time Order Dose Route Action 07/15/2024 1655 EDT methylPREDNISolone sodium succinate (PF) (SOLU-Medrol) injection 40 mg -- Intravenous Canceled Entry 07/15/2024 1711 EDT HYDROcodone-acetaminophen ([place]) 5-325 MG per tablet 10 mg of hydrocodone 10 mg of hydrocodone Oral Given All Other Orders Ordered Status Ordering Provider 07/15/24 1758 Troponin T, High Sensitivity, 2 Hour, Plasma PROCEDURE ONCE Ordered ANIBAL LANDEROSMAYKEL Savage 07/15/[address] Face wo IV Contrast Once Acknowledged TIGRE GRETCHEN M 07/15/[address] Chest wo IV Contrast Once In process ANIBAL LANDEROSMAYKEL Savage 07/15/[address] Abdomen Pelvis wo IV Contrast Once In process ANIBAL LANDEROSRIGAN M 07/15/24 1655 XR Ankle Right 3+ Views Once Final result ANIBAL LANDEROSRIGAN M 07/15/24 1655 XR Tibia Fibula Right 2+ Views Once Final result ANIBAL LANDEROSRIGAN M 07/15/24 1655 XR Knee Right 3 + Views Once Final result ANIBAL LANDEROSRIGAN M 07/15/24 1655 XR Hip Left 2 or 3 Views Including Pelvis Once Final result ANIBAL LANDEROSMAYKEL Savage 07/15/24 1655 XR Femur Left 2+ Views Once Final result ANIBAL LANDEROSMAYKEL Savage 07/15/24 1655 XR Knee Left 3 Views Once Final result TIGRE GRETCHEN 07/15/[address] Bony Pelvis Once Comments: Please include 3D Reconstruction with Tumble and Spin. Please include 5 view Pelvis GhostRecon. In process TIGRE GRETCHEN M 07/15/[address] Lumbar Spine wo IV Contrast Once In process TIGRE GRETCHEN M 07/15/[address] Thoracic Spine wo IV Contrast Once In process TIGRE GRETCHEN M 07/15/[address] Cervical Spine wo IV Contrast Once In process TIGRE GRETCHEN M 07/15/24 1650 Once Canceled TIGRE GRETCHEN M 07/15/24 1650 Once Canceled TIGRE GRETCHEN M 07/15/24 1650 Once Canceled TIGRE GRETCHEN M 07/15/[address] Head wo IV Contrast Once In process TIGREGRETCHEN M 07/15/24 1650 Once Canceled TIGREGRETCHEN M 07/15/24 1650 CMP STAT Final result TIGRE GRETCHEN M 07/15/24 1650 Magnesium STAT Final result TIGRE GRETCHEN M 07/15/24 1650 Lipase STAT In process GRETCHEN LANDEROS 07/15/24 1650 Troponin now and 120 min STAT Final result GRETCHEN LANDEROS 07/15/24 1650 CBC w/diff STAT Final result GRETCHEN LANDEROS 07/15/24 1650 PT-INR STAT Final result GRETCHEN LANDEROS 07/15/24 1650 Urinalysis with reflex microscopic AND reflex culture (IF UTI SUSPECTED) STAT Acknowledged GRETCHEN LANDEROS 07/15/24 1650 Urinalysis with reflex microscopic (Culture NOT Included) PROCEDURE ONCE Ordered GRETCHEN LANDEROS 07/15/24 1650 Urine Kat Panel PROCEDURE ONCE Ordered GRETCHEN LANDEROS 07/15/24 1640 POCT glucose meter PROCEDURE ONCE Final result CHAVA STEPHENSON ED Course as of 07/15/241910 Sun Jul 15, 2024 175 Patient presents to ED from OSH for evaluation after fall. Reports worsening soa and weakness for past week. Slipped and fell down 12-15 steps this morning. [KS] [address] head and L spine and unremarkable. [KS] 1755 OSH CXR concerning for multifocal pneumonia, given rocephin and azithromycin and transferred to for further evaluation [KS] 1756 On exam, NAD, HDS, afebrile. [KS] 1756 Saturating 95% on RA. Ttp along anterior chest wall, L hip and R ankle. Patient has a known contrast allergy and based on exam, low concern for aortic pathology 2/2 clinical stability since initial injury. Based on this, clinical decision made to obtain CT trauma imaging without IV contrast [KS] 1757 Hemoglobin(!): 9.9 Anemia compared to 1 year ago labs [KS] 1757 Platelet Count(!): 114 Thrombocytopenia of unknown origin [KS] 1757 Magnesium(!): 1.6 Will replete [KS] 1758 Troponin T, High Sensitivity, 0 Hour(!): 41 Near baseline, will monitor for delta [KS] 1758 POCT Glucose(!): 243 Consistent with T1DM [KS] 180 XR Hip Left 2 or 3 Views Including Pelvis IMPRESSION: Left lower extremity: Prior left hip arthroplasty without hardware complications. Remote fracture of the greater trochanter with callus. No acute osseous abnormality in the left hip, femur, knee, tibia-fibula and ankle. Right knee: No acute osseous abnormality. [KS] 1826 Lipase(!): 7 [KS] 1832 CT Head wo IV Contrast IMPRESSION: No acute intracranial hemorrhage or acute large territorial infarction. Age-appropriate cerebral atrophy with mild to moderate periventricular and deep white matter change, nonspecific, potentially sequela of chronic microvascular ischemic disease. No acute facial fracture. [KS] 1904 Trauma imaging personally reviewed by me. No acute traumatic injuries sustained from fall. However, based on FTT and multifocal pneumonia, will discuss care with hospital medicine for admission [KS] 1909 After interactive discussion, agreeable to admit [KS] ED Course User Index [KS] Gretchen Landeros MD Clinical Impressions as of 07/15/241910 Fall, initial encounter Multifocal pneumonia Social Determinates of Health Risks (including Economic Stability, Education and level of understanding, Healthcare access and quality and concerning social factors): Lives far away Ultimately, this patient was Was admitted (Admission) The primary encounter diagnosis was Multifocal pneumonia. A diagnosis of Fall, initial encounter was also pertinent to this visit.. Patient believed to require admission for the listed diagnoses. The Internal Medicine service was consulted for admission and was agreeable to admit to Acute Floor (Med/Surg). ED Prescriptions None - [1] Past Medical History: Diagnosis Date Arthritis Diabetes (CMS/HCC) [2] Past Surgical History: Procedure Laterality Date HIP SURGERY [3] No family history on file. [4] Tobacco Use Smoking status: Never Smokeless tobacco: Never [5] Allergies Allergen Reactions Iodine Swelling Plasticized Base [Plastibase] Rash Gretchen Landeros MD Resident 07/15/241910 Cosigned by Chava Stephenson MD at 07/17/2024 1:17 AM EDT Associated attestation - Chava Stephenson MD - 07/17/2024 1:17 AM EDT I saw and evaluated the patient with the resident/fellow. I discussed the case with the resident/fellow and agree with the findings and plan as documented. * ED Triage Notes - Hal Valencia, RN - 07/15/2024 4:26 PM EDT Pt fell down 12-15 concrete steps. -LOC. -BT. Pt was found to have pneumonia after a Chest XR was preformed. Pt endorses lower back pain, right ankle pain and bilateral hand pain. GCS 15. documented in this encounter Plan of Treatment Scheduled Orders Name Type Priority Associated Diagnoses Orde r Schedule Respiratory Culture and Gram Stain Microbiology STAT STAT (Lab) for 1 Occurrences starting 07/15/2024 until 07/15/2024 Scheduled Referrals Name Type Priority Associated Diagnoses Order Schedule Ambulatory referral for Follow Up Care Outpatient Referral Routine Multifocal pneumonia 1 Occurrences starting 07/20/2024 until 01/21/2026 Discharge Ambulatory referral - High Risk Outpatient Referral Routine Multifocal pneumonia Expected: 07/20/2024 (Approximate), Expires: 01/21/2026 documented as of this encounter Procedures Procedure Name Priority Date/Time Associated Diagnosis Comments ADULT PATCH MONITOR - 14 DAY Routine 07/20/2024 1:59 PM EDT Fall, initial encounter POCT GLUCOSE METER UNSOLICITED RESULTS Routine 07/20/2024 12:23 PM EDT XR CHEST 1 VIEW Routine 07/20/2024 9:07 AM EDT POCT GLUCOSE METER UNSOLICITED RESULTS Routine 07/20/2024 8:56 AM EDT LACTATE, VENOUS Routine 07/20/2024 4:22 AM EDT CYSTATIN C Routine 07/20/2024 4:22 AM EDT PROCALCITONIN, PLASMA Routine 07/20/2024 4:22 AM EDT CBC WITH AUTO DIFFERENTIAL Routine 07/20/2024 4:22 AM EDT C-REACTIVE PROTEIN, PLASMA Routine 07/20/2024 4:22 AM EDT PHOSPHORUS, PLASMA Routine 07/20/2024 4: 22 AM EDT MAGNESIUM, PLASMA Routine 07/20/2024 4:2 2 AM EDT COMPREHENSIVE METABOLIC PANEL, PLASMA Routine 07/20/2024 4:22 AM EDT POCT GLUCOSE METER UNSOLICITED RESULTS Routine 07/19/2024 7:21 PM EDT POCT GLUCOSE METER UNSOLICITED RESULTS Routine 07/19/2024 5:09 PM EDT POCT GLUCOSE METER UNSOLICITED RESULTS Routine 07/19/2024 11:27 AM EDT POCT GLUCOSE METER UNSOLICITED RESULTS Routine 07/19/2024 7:42 AM EDT ALPHA FETOPROTEIN, SERUM Routine 07/19/2024 12:02 AM EDT CYSTATIN C Routine 07/19/2024 12:02 AM EDT PROSTATE CANCER SCREEN, SERUM Routine 07/19/2024 12:02 AM EDT CANCER ANTIGEN, GI (CA 19.9) Routine 07/19/2024 12:02 AM EDT CBC WITH AUTO DIFFERENTIAL Routine 07/19/2024 12:02 AM EDT C-REACTIVE PROTEIN, PLASMA Routine 07/19/2024 12:02 AM EDT FREE T4, PLASMA Routine 07/19/2024 12:02 AM EDT PHOSPHORUS, PLASMA Routine 07/19/2024 12 :02 AM EDT MAGNESIUM, PLASMA Routine 07/19/2024 12: 02 AM EDT CEA, SERUM Routine 07/19/2024 12:02 AM EDT COMPREHENSIVE METABOLIC PANEL, PLASMA Routine 07/19/2024 12:02 AM EDT POCT GLUCOSE METER UNSOLICITED RESULTS Routine 07/18/2024 7:44 PM EDT POCT GLUCOSE METER UNSOLICITED RESULTS Routine 07/18/2024 4:45 PM EDT POCT GLUCOSE METER UNSOLICITED RESULTS Routine 07/18/2024 12:57 PM EDT POCT GLUCOSE METER UNSOLICITED RESULTS Routine 07/18/2024 12:04 PM EDT POCT GLUCOSE METER UNSOLICITED RESULTS Routine 07/18/2024 11:39 AM EDT FL MODIFIED BARIUM SWALLOW Routine 07/18/2024 8:35 AM EDT POCT GLUCOSE METER UNSOLICITED RESULTS Routine 07/18/2024 7:49 AM EDT CYSTATIN C Routine 07/18/2024 5:48 AM EDT N-TERMINAL PROBNP, PLASMA Add-On 07/18/2024 5:48 AM EDT CBC WITH AUTO DIFFERENTIAL Routine 07/18/2024 5:48 AM EDT C-REACTIVE PROTEIN, PLASMA Routine 07/18/2024 5:48 AM EDT PHOSPHORUS, PLASMA Routine 07/18/2024 5: 48 AM EDT MAGNESIUM, PLASMA Routine 07/18/2024 5:4 8 AM EDT COMPREHENSIVE METABOLIC PANEL, PLASMA Routine 07/18/2024 5:48 AM EDT POCT GLUCOSE METER UNSOLICITED RESULTS Routine 07/17/2024 8:07 PM EDT POCT GLUCOSE METER UNSOLICITED RESULTS Routine 07/17/2024 5:28 PM EDT POCT GLUCOSE METER UNSOLICITED RESULTS Routine 07/17/2024 11:34 AM EDT POCT GLUCOSE METER UNSOLICITED RESULTS Routine 07/17/2024 8:06 AM EDT TSH REFLEX FT4 Routine 07/17/2024 3:14 AM EDT CYSTATIN C Routine 07/17/2024 3:14 AM EDT CREATINE KINASE, TOTAL, PLASMA Routine 07/17/2024 3:14 AM EDT CBC WITH AUTO DIFFERENTIAL Routine 07/17/2024 3:14 AM EDT C-REACTIVE PROTEIN, PLASMA Routine 07/17/2024 3:14 AM EDT PHOSPHORUS, PLASMA Routine 07/17/2024 3: 14 AM EDT MAGNESIUM, PLASMA Routine 07/17/2024 3:1 4 AM EDT FOLATE, SERUM Routine 07/17/2024 3:14 AM EDT FERRITIN, SERUM Routine 07/17/2024 3:14 AM EDT VITAMIN B12, SERUM Routine 07/17/2024 3: 14 AM EDT COMPREHENSIVE METABOLIC PANEL, PLASMA Routine 07/17/2024 3:14 AM EDT POCT GLUCOSE METER UNSOLICITED RESULTS Routine 07/16/2024 8:04 PM EDT POCT GLUCOSE METER UNSOLICITED RESULTS Routine 07/16/2024 5:23 PM EDT POCT GLUCOSE METER UNSOLICITED RESULTS Routine 07/16/2024 4:21 PM EDT POCT GLUCOSE METER UNSOLICITED RESULTS Routine 07/16/2024 2:41 PM EDT POCT GLUCOSE METER UNSOLICITED RESULTS Routine 07/16/2024 11:19 AM EDT POCT GLUCOSE METER UNSOLICITED RESULTS Routine 07/16/2024 6:51 AM EDT LACTATE, VENOUS Routine 07/16/2024 4:22 AM EDT IRON & TOTAL IRON BINDING CAPACITY, PLASMA (INCLUDES TRANSFERRIN) Add-On 07/16/2024 4:22 AM EDT PROTHROMBIN TIME(PT) / INR Routine 07/16/2024 4:22 AM EDT RETICULOCYTES, BLOOD Add-On 07/16/2024 4:22 AM EDT CBC W/O DIFFERENTIAL Routine 07/16/2024 4:22 AM EDT MAGNESIUM, PLASMA Routine 07/16/2024 4:2 2 AM EDT RENAL FUNCTION PANEL, PLASMA Routine 07/16/2024 4:22 AM EDT MULTI DRUG RESISTANCE TEST Routine 07/15/2024 11:25 PM EDT HEMOGLOBIN AND HEMATOCRIT, BLOOD STAT 07/15/2024 11:25 PM EDT TYPE AND SCREEN Routine 07/15/2024 11:25 PM EDT POCT GLUCOSE METER UNSOLICITED RESULTS Routine 07/15/2024 9:18 PM EDT ECG ADULT Routine 07/15/2024 8:56 PM EDT STREPTOCOCCUS PNEUMONIAE AND LEGIONELLA URINARY ANTIGEN STAT 07/15/2024 8:33 PM EDT URINALYSIS WITH REFLEX MICROSCOPIC AND CULTURE STAT 07/15/2024 8:33 PM EDT URINE KAT PANEL STAT 07/15/2024 8:33 PM EDT PAIN MANAGEMENT, QUANTITATIVE URINE DRUG TESTING STAT 07/15/2024 8:33 PM EDT PAIN MANAGEMENT, QUANTITATIVE URINE DRUG TESTING STAT 07/15/2024 8:33 PM EDT NASOPHARYNGEAL RESPIRATORY PANEL STAT 07/15/2024 8:33 PM EDT COMPREHENSIVE URINE DRUG SCREENING,QUALITATIVE ASSAY, >= 27 DRUG CLASSES STAT 07/15/2024 8:33 PM EDT URINALYSIS WITH REFLEX MICROSCOPIC STAT 07/15/2024 8:33 PM EDT PROCALCITONIN, PLASMA STAT 07/15/2024 7:49 PM EDT N-TERMINAL PROBNP, PLASMA Add-On 07/15/2024 7:49 PM EDT BLOOD CULTURE (AEROBIC/ANAEROBIC SET) STAT 07/15/2024 7:49 PM EDT BLOOD CULTURE (AEROBIC/ANAEROBIC SET) STAT 07/15/2024 7:49 PM EDT BLOOD GAS PANEL, VENOUS STAT 07/16/19 7:49 PM EDT TROPONIN T, HIGH SENSITIVITY, 2 HOUR, PLASMA Timed 07/15/2024 7:[address] FACE WO IV CONTRAST STAT 6:[address] LUMBAR SPINE WO IV CONTRAST STAT 07/15/2024 5:[address] THORACIC SPINE WO IV CONTRAST STAT 07/15/2024 5:[address] CERVICAL SPINE WO IV CONTRAST STAT 07/15/2024 5:[address] CHEST WO IV CONTRAST STAT 07/16/19 5:[address] HEAD WO IV CONTRAST STAT 5:[address] ABDOMEN PELVIS WO IV CONTRAST STAT 07/15/2024 5:56 PM EDT XR ANKLE RIGHT 3+ VIEWS STAT 07/16/19 5:41 PM EDT XR TIBIA FIBULA RIGHT 2+ VIEWS STAT 07/15/2024 5:41 PM EDT XR KNEE RIGHT 3 VIEWS STAT 07/15/2024 5:41 PM EDT XR KNEE LEFT 3 VIEWS STAT 07/15/2024 5:41 PM EDT XR FEMUR LEFT 2+ VIEWS STAT 5:41 PM EDT XR HIP LEFT 2 OR 3 VIEWS STAT 07/15/2024 5:41 PM EDT TROPONIN T, HIGH SENSITIVITY, 0 HOUR, PLASMA, REFLEX TO 2 HOUR STAT 07/15/2024 5:03 PM EDT PROTHROMBIN TIME(PT) / INR STAT 07/15/2024 5:03 PM EDT CBC WITH AUTO DIFFERENTIAL STAT 07/15/2024 5:03 PM EDT MAGNESIUM, PLASMA STAT 07/15/2024 5:0 3 PM EDT LIPASE, PLASMA STAT 07/15/2024 5:03 PM EDT COMPREHENSIVE METABOLIC PANEL, PLASMA STAT 07/15/2024 5:03 PM EDT POCT GLUCOSE METER UNSOLICITED RESULTS Routine 07/15/2024 4:40 PM EDT documented in this encounter Results * Adult Patch Monitor - 14 Day (07/20/2024 1:59 PM EDT) BSA 2.03 m2 BIOTELEMETRY Anatomical Region Laterality Modality Other Narrative 08/15/2024 4:09 PM EDT PRELIMINARY FINDINGS: Analysis date: 08/10/24 - by TK LANG Patient monitored for 13d 20h, analyzable time was 13d 19h starting on 07/20/2024 01:46 pm. Primary rhythm was Sinus Rhythm. Average heart rate was 67 bpm, Minimum heart rate was 47 bpm on Day :07:20 am, Max heart rate was 150 bpm on Day :43:35 pm SVE(s): [place] was 0.08 %, 1015 total SVE(s) SV Arrhythmia(s): 14 event(s), longest event 11 beats on Day :00:43 pm, fastest event 150 bpm on Day :43:39 pm PVC(s): [place] was 0.34 %, 4504 total PVC(s), 3 disparate morphologies Ventricular Arrhythmia(s): 45 event(s), longest event 12 beats at Day :16:03 pm, fastest event 150 bpm at Day :13:04 pm Patient recorded 1 event(s) during the monitoring period PHYSICIAN COMMENTS: Agree w the findings above. Sinus rhythm noted during patient event. Edgardo Corbett MD [facility] PROCEDURES Final Result * (ABNORMAL) POCT glucose meter (07/20/2024 12:23 PM EDT) POCT Glucose 273(H) 74 - 99 mg/dL 07/20/2024 12:25 PM EDT [facility] Comment:Accuracy of a glucos e result obtained from a capillary whole blood specimen relies upon adequate, non-compromised capillary blood flow. If the capillary glucose result is not consistent with the patient's clinical signs and symptoms, glucose testing should be repeated with either an arterial or venous sample on the glucometer or sent to the main labortory for testing. Comment 07/20/2024 12:25 PM EDT [facility] Chief Design Engineer ID Xiomara Jackson 07/21/19 12:25 PM EDT [facility] Device ID [id number] 07/20/2024 12:25 PM EDT [facility] Specimen Type POC Capillary 07/20/2024 12:25 PM EDT [facility] Blood Capillary blood specimen / Unknown 07/20/2024 12:23 PM EDT 07/20/2024 12:25 PM EDT Edgardo Corbett MD LAB POINT OF CARE TE ST DOCKED DEVICE UNSOLICITED RESULTS Final Result Performing Organization Address City/State/[facility] Co de Phone Number [facility] [address] [place] [address] * XR Chest 1 View (07/20/2024 9:07 AM EDT) Anatomical Region Laterality Modality Chest Digital Radiogra phy Impressions 07/20/2024 10:27 AM EDT Emphysema with bibasilar and left upper lobe airspace disease. CRITICAL RESULT: No. COMMUNICATION: Per this written report. Drafted by German Palomares MD on 07/20/2024 10:26 AM Final report signed by German Palomares MD on 07/20/2024 10:27 AM Narrative 07/20/2024 10:27 AM EDT CLINICAL INDICATION: Recurrent Pneumonia TECHNIQUE: XR CHEST 1 VIEW COMPARISON: August 31, 2023; July 15, 2024. FINDINGS: Airspace consolidation within the lung bases, left greater than right, as well as the left upper lobe. Underlying emphysema. No pneumothorax. Cardiomediastinal silhouette is within normal limits Procedure Note German Palomares MD - 07/20/2024 CLINICAL INDICATION: Recurrent Pneumonia TECHNIQUE: XR CHEST 1 VIEW COMPARISON: August 31, 2023; July 15, 2024. FINDINGS: Airspace consolidation within the lung bases, left greater than right, aswell as the left upper lobe. Underlying emphysema. No pneumothorax.Cardiomediastinal silhouette is within normal limits IMPRESSION: Emphysema with bibasilar and left upper lobe airspace disease. CRITICAL RESULT: No. COMMUNICATION: Per this written report. Drafted by German Palomares MD on 07/20/2024 10:26 AM Final report signed by German Palomares MD on 07/20/2024 10:27 AM us Edgardo Corbett MD IMG XR PROCEDURES Final Result * (ABNORMAL) POCT glucose meter (07/20/2024 8:56 AM EDT) [facility] POCT Glucose 157(H) 74 - 99 mg/dL 07/20/2024 8:58 AM EDT [facility] Comment:Accuracy of a glucos e result obtained from a capillary whole blood specimen relies upon adequate, non-compromised capillary blood flow. If the capillary glucose result is not consistent with the patient's clinical signs and symptoms, glucose testing should be repeated with either an arterial or venous sample on the glucometer or sent to the main labortory for testing. Comment 07/20/2024 8:58 AM EDT [facility] Chief Design Engineer ID [email or web address] Jackson 07/21/19 8:58 AM EDT [facility] Device ID [id number] 07/20/2024 8:58 AM EDT [facility] Specimen Type POC Capillary 07/20/2024 8:58 AM EDT [facility] Blood Capillary blood specimen / Unknown 07/20/2024 8:56 AM EDT 07/20/2024 8:58 AM EDT us Edgardo Corbett MD LAB POINT OF CARE TE ST DOCKED DEVICE UNSOLICITED RESULTS Final Result [facility] [address] [place] [address] * (ABNORMAL) Procalcitonin (07/20/2024 4:22 AM EDT) [facility] Procalcitonin, Plasma 0.61(H) <0.09 ng/mL 07/20/2024 5:09 AM EDT [facility] Blood Venous blood specimen / Unknown Venipuncture / Unknown 07/20/2024 4:22 AM EDT 07/20/2024 4:32 AM EDT Narrative [facility] - 07/20/2024 5:09 AM EDT Procalcitonin concentrations in healthy individuals are <0.09 ng/mL. Published data support the following interpretive risk assessment: An elevated procalcitonin result does not always indicate sepsis. Various non-infectious conditions are known to increase procalcitonin. Results should be considered in the context of clinical symptoms and other laboratory tests. Procalcitonin >2.0 ng/mL: Concentrations >2.0 ng/mL on the first day of ICU admission are associated with a higher risk of progression to severe sepsis and/or septic shock. The change in PCT over time may help predict 28 day mortality risk. Please consult [email or web address] for more information. Test performed at [facility], Core Laboratory. Edgardo Corbett MD LAB BLOOD ORDERABLES Final Resu lt [facility] [address] [place] [address] * Lactate, venous (07/20/2024 4:22 AM EDT) Lactate, Venous, Whole Blood 2.0 0.5 - 2.2 mmol/L LAB HEMATOLOGY METHOD 07/20/2024 4:31 AM EDT [facility] Blood Venous blood specimen / Unknown Venipuncture / Unknown 07/20/2024 4:22 AM EDT 07/20/2024 4:28 AM EDT Edgardo Corbett MD LAB BLOOD ORDERABLES Final Resu lt Performing Organization Address City/[facility]/ZIP Co de Phone Number [facility] [address] [place] [address] * (ABNORMAL) Cystatin C (07/20/2024 4:22 AM EDT) Cystatin C 1.17(H) 0.61 - 0.95 mg/L 07/20/2024 5:05 AM EDT [facility] Blood Venous blood specimen / Unknown Venipuncture / Unknown 07/20/2024 4:22 AM EDT 07/20/2024 4:32 AM EDT us Edgardo Corbett MD LAB BLOOD ORDERABLES Final Resu lt Performing Organization Address [facility] de Phone Number [facility] [address] [place] [address] * (ABNORMAL) C-Reactive Protein, Plasma (07/20/2024 4:22 AM EDT) CRP, Plasma 149.7(H) <=8.0 mg/L 07/20/2024 5:05 AM EDT [facility] Blood Venous blood specimen / Unknown Venipuncture / Unknown 07/20/2024 4:22 AM EDT 07/20/2024 4:32 AM EDT Narrative [facility] - 07/20/2024 5:05 AM EDT This CRP test is appropriate for assessment of infection, systemic inflammation and/or tissue injury. To assess cardiovascular disease risk order high sensitivity CRP (CRPH). us Edgardo Corbett MD LAB BLOOD ORDERABLES Final Resu lt Performing Organization Address [facility] Co de Phone Number [facility] [address] [place] [address] * (ABNORMAL) Comprehensive Metabolic Panel, Plasma (07/20/2024 4:22 AM EDT) Glucose, Plasma 146(H) 74 - 99 mg/dL 07/20/2024 5:05 AM EDT [facility] BUN, Plasma 8 8 - 23 mg/dL 07/20/2024 5:05 AM EDT [facility] Creatinine, Plasma 0.89 0.70 - 1.20 mg/dL 07/20/2024 5:05 AM EDT [facility] BUN/Creatinine Ratio 9 07/20/2024 5:05 AM EDT [facility] Sodium, Plasma 141 136 - 145 mmol/L 07/20/2024 5:05 AM EDT [facility] Potassium, Plasma 3.6 3.6 - 4.9 mmol/L 07/20/2024 5:05 AM EDT [facility] Chloride, Plasma 103 97 - 107 mmol/L 07/20/2024 5:05 AM EDT [facility] CO2, Plasma 24 22 - 29 mmol/L 07/20/2024 5:05 AM EDT [facility] Anion Gap 14 6 - 16 mmol/L 07/20/2024 5:05 AM EDT [facility] Total Calcium, Plasma 9.4 8.9 - 10.2 mg/dL 07/20/2024 5:05 AM EDT [facility] Total Protein 7.3 6.3 - 7.9 g/dL 07/20/2024 5:05 AM EDT [facility] Albumin, Plasma 3.3(L) 3.5 - 5.2 g/dL 07/20/2024 5:05 AM EDT [facility] AST, Plasma 30 10 - 50 U/L 07/20/2024 5:05 AM EDT [facility] ALT, Plasma 34 10 - 50 U/L 07/20/2024 5:05 AM EDT [facility] Alkaline Phosphatase, Plasma 118(H) 40 - 115 U/L 07/20/2024 5:05 AM EDT [facility] Total Bilirubin, Plasma 0.7 0.2 - 1.1 mg/dL 07/20/2024 5:05 AM EDT [facility] eGFRcr 92.2 mL/min/1.7 3m*2 07/20/2024 5:05 AM EDT [facility] Comment:Reported eGFRcr in m L/min/1.73m2 is based the CKD-EPI 2020 equation that does not use a race coefficient. Blood Venous blood specimen / Unknown Venipuncture / Unknown 07/20/2024 4:22 AM EDT 07/20/2024 4:32 AM EDT us Edgardo Corbett MD LAB BLOOD ORDERABLES Final Resu lt Performing Organization Address City/[facility]/ZIP Co de Phone Number [facility] [address] [place] [address] * Phosphorus, Plasma (07/20/2024 4:22 AM EDT) Pathologist [facility] Phosphorus, Plasma 3.1 2.5 - 4.5 mg/dL 07/20/2024 5:05 AM EDT [facility] Blood Venous blood specimen / Unknown Venipuncture / Unknown 07/20/2024 4:22 AM EDT 07/20/2024 4:32 AM EDT Dc Torres MD LAB BLOOD ORDERABLES Final Result Performing Organization Address [facility] Co de Phone Number [facility] [address] [place] [address] * Magnesium, Plasma (07/20/2024 4:22 AM EDT) [facility] Magnesium, Plasma 1.9 1.9 - 2.4 mg/dL 07/20/2024 5:05 AM EDT [facility] Blood Venous blood specimen / Unknown Venipuncture / Unknown 07/20/2024 4:22 AM EDT 07/20/2024 4:32 AM EDT Dc Torres MD LAB BLOOD ORDERABLES Final Result Performing Organization Address City/[facility]/ZIP Co de Phone Number [facility] [address] [place] [address] * (ABNORMAL) CBC and Differential (07/20/2024 4:22 AM EDT) Pathologist [facility] WBC Count 6.15 3.70 - 10.30 10*3/uL LAB HEMATOLOGY METHOD 07/20/2024 4:42 AM EDT [facility] RBC Count 4.08(L) 4.60 - 6.10 10*6/uL LAB HEMATOLOGY METHOD 07/20/2024 4:42 AM EDT [facility] HGB 11.2(L) 13.7 - 17.5 g/dL LAB HEMATOLOGY METHOD 07/20/2024 4:42 AM EDT [facility] HCT 35.9(L) 40.0 - 51.0 % LAB HEMATOLOGY METHOD 07/20/2024 4:42 AM EDT [facility] Platelet Count 149(L) 155 - 369 10*3/uL LAB HEMATOLOGY METHOD 07/20/2024 4:42 AM EDT [facility] MCV 88 79 - 98 fL LAB HEMATOLOGY METHOD 07/20/2024 4:42 AM EDT [facility] MCH 27.5 26.0 - 32.0 pg LAB HEMATOLOGY METHOD 07/20/2024 4:42 AM EDT [facility] MCHC 31.2 30.7 - 35.5 g/dL LAB HEMATOLOGY METHOD 07/20/2024 4:42 AM EDT [facility] RDW 16.1(H) 11.5 - 14.5 % LAB HEMATOLOGY METHOD 07/20/2024 4:42 AM EDT [facility] MPV 9.4 8.8 - 12.5 fL LAB HEMATOLOGY METHOD 07/20/2024 4:42 AM EDT [facility] nRBC 0.0 <=0.0 per 100 WBCs LAB HEMATOLOGY METHOD 07/20/2024 4:42 AM EDT [facility] Differential Type Automated LAB HEMATOLOGY METHOD 07/20/2024 4:42 AM EDT [facility] Neutrophils % 41 % LAB HEMATOLOGY METHOD 07/20/2024 4:42 AM EDT [facility] Lymphocytes % 35 % LAB HEMATOLOGY METHOD 07/20/2024 4:42 AM EDT [facility] Monocytes % 7 % LAB HEMATOLOGY METHOD 07/20/2024 4:42 AM EDT [facility] Eosinophils % 15 % LAB HEMATOLOGY METHOD 07/20/2024 4:42 AM EDT [facility] Basophils % 1 % LAB HEMATOLOGY METHOD 07/20/2024 4:42 AM EDT [facility] Immature Granulocytes % 1 % LAB HEMATOLOGY METHOD 07/20/2024 4:42 AM EDT [facility] Neutrophils Absolute 2.55 1.60 - 6.10 10*3/uL LAB HEMATOLOGY METHOD 07/20/2024 4:42 AM EDT [facility] Lymphocytes Absolute 2.17 1.20 - 3.90 10*3/uL LAB HEMATOLOGY METHOD 07/20/2024 4:42 AM EDT [facility] Monocytes Absolute 0.45 0.30 - 0.90 10*3/uL LAB HEMATOLOGY METHOD 07/20/2024 4:42 AM EDT [facility] Eosinophils Absolute 0.91(H) 0.00 - 0.50 10*3/uL LAB HEMATOLOGY METHOD 07/20/2024 4:42 AM EDT [facility] Basophils Absolute 0.04 0.00 - 0.10 10*3/uL LAB HEMATOLOGY METHOD 07/20/2024 4:42 AM EDT [facility] Immature Granulocytes Absolute 0.03 0.00 - 0.06 10*3/uL LAB HEMATOLOGY METHOD 07/20/2024 4:42 AM EDT [facility] Blood Venous blood specimen / Unknown Venipuncture / Unknown 07/20/2024 4:22 AM EDT 07/20/2024 4:34 AM EDT Narrative [facility] - 07/20/2024 4:42 AM EDT Therapeutic decision making should be based on absolute values, rather than percentages. Dc Torres MD LAB BLOOD ORDERABLES Final Result [facility] [address] [place] [address] * (ABNORMAL) POCT glucose meter (07/19/2024 7:21 PM EDT) POCT Glucose 217(H) 74 - 99 mg/dL 07/19/2024 7:23 PM EDT [facility] Comment:Accuracy of a glucos e result obtained from a capillary whole blood specimen relies upon adequate, non-compromised capillary blood flow. If the capillary glucose result is not consistent with the patient's clinical signs and symptoms, glucose testing should be repeated with either an arterial or venous sample on the glucometer or sent to the main labortory for testing. Comment 07/19/2024 7:23 PM EDT [facility] Chief Design Engineer ID Vivi Petty 07/19/2024 7:23 PM EDT [facility] Device ID [id number] 07/19/2024 7:23 PM EDT [facility] Specimen Type POC Capillary 07/19/2024 7:23 PM EDT [facility] Blood Capillary blood specimen / Unknown 07/19/2024 7:21 PM EDT 07/19/2024 7:23 PM EDT Edgardo Corbett MD LAB POINT OF CARE TE ST DOCKED DEVICE UNSOLICITED RESULTS Final Result [facility] [address] [place] [address] * (ABNORMAL) POCT glucose meter (07/19/2024 5:09 PM EDT) POCT Glucose 212(H) 74 - 99 mg/dL 07/19/2024 5:10 PM EDT [facility] Comment:Accuracy of a glucos e result obtained from a capillary whole blood specimen relies upon adequate, non-compromised capillary blood flow. If the capillary glucose result is not consistent with the patient's clinical signs and symptoms, glucose testing should be repeated with either an arterial or venous sample on the glucometer or sent to the main labortory for testing. Comment 07/19/2024 5:10 PM EDT [facility] Chief Design Engineer ID Geovanna Gomez 5:10 PM EDT [facility] Device ID [id number] 07/19/2024 5:10 PM EDT [facility] Specimen Type POC Capillary 07/19/2024 5:10 PM EDT [facility] Blood Capillary blood specimen / Unknown 07/19/2024 5:09 PM EDT 07/19/2024 5:10 PM EDT Edgardo Corbett MD LAB POINT OF CARE TE ST DOCKED DEVICE UNSOLICITED RESULTS Final Result [facility] [address] [place] [address] * (ABNORMAL) POCT glucose meter (07/19/2024 11:27 AM EDT) POCT Glucose 169(H) 74 - 99 mg/dL 07/19/2024 11:29 AM EDT [facility] Comment:Accuracy of a glucos e result obtained from a capillary whole blood specimen relies upon adequate, non-compromised capillary blood flow. If the capillary glucose result is not consistent with the patient's clinical signs and symptoms, glucose testing should be repeated with either an arterial or venous sample on the glucometer or sent to the main labortory for testing. Comment 07/19/2024 11:29 AM EDT [facility] Chief Design Engineer ID Geovanna Gomez 11:29 AM EDT [facility] Device ID [id number] 07/19/2024 11:29 AM EDT [facility] Specimen Type POC Capillary 07/19/2024 11:29 AM EDT [facility] Blood Capillary blood specimen / Unknown 07/19/2024 11:27 AM EDT 07/19/2024 11:29 AM EDT us Edgardo Corbett MD LAB POINT OF CARE TE ST DOCKED DEVICE UNSOLICITED RESULTS Final Result Performing Organization Address City/State/[facility] Co de Phone Number [facility] [address] [place] [address] * (ABNORMAL) POCT glucose meter (07/19/2024 7:42 AM EDT) POCT Glucose 172(H) 74 - 99 mg/dL 07/19/2024 7:44 AM EDT [facility] Comment:Accuracy of a glucos e result obtained from a capillary whole blood specimen relies upon adequate, non-compromised capillary blood flow. If the capillary glucose result is not consistent with the patient's clinical signs and symptoms, glucose testing should be repeated with either an arterial or venous sample on the glucometer or sent to the main labortory for testing. Comment 07/19/2024 7:44 AM EDT [facility] Chief Design Engineer ID Geovanna Gomez 7:44 AM EDT [facility] Device ID [id number] 07/19/2024 7:44 AM EDT [facility] Specimen Type POC Capillary 07/19/2024 7:44 AM EDT [facility] Blood Capillary blood specimen / Unknown 07/19/2024 7:42 AM EDT 07/19/2024 7:44 AM EDT us Edgardo Corbett MD LAB POINT OF CARE TE ST DOCKED DEVICE UNSOLICITED RESULTS Final Result [facility] [address] [place] [address] * (ABNORMAL) Cystatin C (07/19/2024 12:02 AM EDT) Cystatin C 1.07(H) 0.61 - 0.95 mg/L 07/19/2024 12:56 AM EDT [facility] Blood Venous blood specimen / Unknown Venipuncture / Unknown 07/19/2024 12:02 AM EDT 07/19/2024 12:06 AM EDT us Edgardo Corbett MD LAB BLOOD ORDERABLES Final Resu lt Performing Organization Address [facility] Co de Phone Number [facility] [address] [place] [address] * (ABNORMAL) C-Reactive Protein, Plasma (07/19/2024 12:02 AM EDT) CRP, Plasma 147.7(H) <=8.0 mg/L 07/19/2024 12:56 AM EDT [facility] Blood Venous blood specimen / Unknown Venipuncture / Unknown 07/19/2024 12:02 AM EDT 07/19/2024 12:06 AM EDT Narrative [facility] - 07/19/2024 12:56 AM EDT This CRP test is appropriate for assessment of infection, systemic inflammation and/or tissue injury. To assess cardiovascular disease risk order high sensitivity CRP (CRPH). us Edgardo Corbett MD LAB BLOOD ORDERABLES Final Resu lt Performing Organization Address City/[facility]/ZIP Co de Phone Number [facility] [address] [place] [address] * (ABNORMAL) Comprehensive Metabolic Panel, Plasma (07/19/2024 12:02 AM EDT) Glucose, Plasma 235(H) 74 - 99 mg/dL 07/19/2024 12:56 AM EDT [facility] BUN, Plasma 11 8 - 23 mg/dL 07/19/2024 12:56 AM EDT [facility] Creatinine, Plasma 0.88 0.70 - 1.20 mg/dL 07/19/2024 12:56 AM EDT [facility] BUN/Creatinine Ratio 13 07/19/2024 12:56 AM EDT [facility] Sodium, Plasma 139 136 - 145 mmol/L 07/19/2024 12:56 AM EDT [facility] Potassium, Plasma 3.9 3.6 - 4.9 mmol/L 07/19/2024 12:56 AM EDT [facility] Chloride, Plasma 104 97 - 107 mmol/L 07/19/2024 12:56 AM EDT [facility] CO2, Plasma 25 22 - 29 mmol/L 07/19/2024 12:56 AM EDT [facility] Anion Gap 10 6 - 16 mmol/L 07/19/2024 12:56 AM EDT [facility] Total Calcium, Plasma 8.6(L) 8.9 - 10.2 mg/dL 07/19/2024 12:56 AM EDT [facility] Total Protein 6.0(L) 6.3 - 7.9 g/dL 07/19/2024 12:56 AM EDT [facility] Albumin, Plasma 2.7(L) 3.5 - 5.2 g/dL 07/19/2024 12:56 AM EDT [facility] AST, Plasma 28 10 - 50 U/L 07/19/2024 12:56 AM EDT [facility] ALT, Plasma 28 10 - 50 U/L 07/19/2024 12:56 AM EDT [facility] Alkaline Phosphatase, Plasma 96 40 - 115 U/L 07/19/2024 12:56 AM EDT [facility] Total Bilirubin, Plasma 0.7 0.2 - 1.1 mg/dL 07/19/2024 12:56 AM EDT [facility] eGFRcr 92.5 mL/min/1.7 3m*2 07/19/2024 12:56 AM EDT [facility] Comment:Reported eGFRcr in m L/min/1.73m2 is based the CKD-EPI 2020 equation that does not use a race coefficient. Blood Venous blood specimen / Unknown Venipuncture / Unknown 07/19/2024 12:02 AM EDT 07/19/2024 12:06 AM EDT Edgardo Corbett MD LAB BLOOD ORDERABLES Final Resu lt Performing Organization Address City/[facility]/ZIP Co de Phone Number [facility] [address] [place] [address] * Phosphorus, Plasma (07/19/2024 12:02 AM EDT) Phosphorus, Plasma 2.8 2.5 - 4.5 mg/dL 07/19/2024 12:56 AM EDT [facility] Blood Venous blood specimen / Unknown Venipuncture / Unknown 07/19/2024 12:02 AM EDT 07/19/2024 12:06 AM EDT Dc Torres MD LAB BLOOD ORDERABLES Final Result Performing Organization Address [facility] Co de Phone Number [facility] [address] [place] [address] * Magnesium, Plasma (07/19/2024 12:02 AM EDT) Magnesium, Plasma 1.9 1.9 - 2.4 mg/dL 07/19/2024 12:56 AM EDT [facility] Blood Venous blood specimen / Unknown Venipuncture / Unknown 07/19/2024 12:02 AM EDT 07/19/2024 12:06 AM EDT Dc Torres MD LAB BLOOD ORDERABLES Final Result Performing Organization Address City/[facility] Co de Phone Number [facility] [address] [place] [address] * (ABNORMAL) CBC and Differential (07/19/2024 12:02 AM EDT) WBC Count 5.22 3.70 - 10.30 10*3/uL LAB HEMATOLOGY METHOD 07/19/2024 12:40 AM EDT [facility] RBC Count 3.41(L) 4.60 - 6.10 10*6/uL LAB HEMATOLOGY METHOD 07/19/2024 12:40 AM EDT [facility] HGB 9.5(L) 13.7 - 17.5 g/dL LAB HEMATOLOGY METHOD 07/19/2024 12:40 AM EDT [facility] HCT 31.0(L) 40.0 - 51.0 % LAB HEMATOLOGY METHOD 07/19/2024 12:40 AM EDT [facility] Platelet Count 107(L) 155 - 369 10*3/uL LAB HEMATOLOGY METHOD 07/19/2024 12:40 AM EDT [facility] MCV 91 79 - 98 fL LAB HEMATOLOGY METHOD 07/19/2024 12:40 AM EDT [facility] MCH 27.9 26.0 - 32.0 pg LAB HEMATOLOGY METHOD 07/19/2024 12:40 AM EDT [facility] MCHC 30.6(L) 30.7 - 35.5 g/dL LAB HEMATOLOGY METHOD 07/19/2024 12:40 AM EDT [facility] RDW 16.4(H) 11.5 - 14.5 % LAB HEMATOLOGY METHOD 07/19/2024 12:40 AM EDT [facility] MPV 9.0 8.8 - 12.5 fL LAB HEMATOLOGY METHOD 07/19/2024 12:40 AM EDT [facility] nRBC 0.0 <=0.0 per 100 WBCs LAB HEMATOLOGY METHOD 07/19/2024 12:40 AM EDT [facility] Differential Type Automated LAB HEMATOLOGY METHOD 07/19/2024 12:40 AM EDT [facility] Neutrophils % 54 % LAB HEMATOLOGY METHOD 07/19/2024 12:40 AM EDT [facility] Lymphocytes % 22 % LAB HEMATOLOGY METHOD 07/19/2024 12:40 AM EDT [facility] Monocytes % 7 % LAB HEMATOLOGY METHOD 07/19/2024 12:40 AM EDT [facility] Eosinophils % 16 % LAB HEMATOLOGY METHOD 07/19/2024 12:40 AM EDT [facility] Basophils % 1 % LAB HEMATOLOGY METHOD 07/19/2024 12:40 AM EDT [facility] Immature Granulocytes % 0 % LAB HEMATOLOGY METHOD 07/19/2024 12:40 AM EDT [facility] Neutrophils Absolute 2.85 1.60 - 6.10 10*3/uL LAB HEMATOLOGY METHOD 07/19/2024 12:40 AM EDT [facility] Lymphocytes Absolute 1.14(L) 1.20 - 3.90 10*3/uL LAB HEMATOLOGY METHOD 07/19/2024 12:40 AM EDT [facility] Monocytes Absolute 0.38 0.30 - 0.90 10*3/uL LAB HEMATOLOGY METHOD 07/19/2024 12:40 AM EDT [facility] Eosinophils Absolute 0.81(H) 0.00 - 0.50 10*3/uL LAB HEMATOLOGY METHOD 07/19/2024 12:40 AM EDT [facility] Basophils Absolute 0.03 0.00 - 0.10 10*3/uL LAB HEMATOLOGY METHOD 07/19/2024 12:40 AM EDT [facility] Immature Granulocytes Absolute 0.01 0.00 - 0.06 10*3/uL LAB HEMATOLOGY METHOD 07/19/2024 12:40 AM EDT [facility] Blood Venous blood specimen / Unknown Venipuncture / Unknown 07/19/2024 12:02 AM EDT 07/19/2024 12:06 AM EDT Narrative [facility] - 07/19/2024 12:40 AM EDT Therapeutic decision making should be based on absolute values, rather than percentages. us Dc Torres MD LAB BLOOD ORDERABLES Final Result [facility] [address] [place] [address] * T4, free (07/19/2024 12:02 AM EDT) Free T4, Plasma 1.1 0.8 - 1.7 ng/dL 07/19/2024 2:07 AM EDT [facility] Blood Venous blood specimen / Unknown Venipuncture / Unknown 07/19/2024 12:02 AM EDT 07/19/2024 12:06 AM EDT us Reynoso F Aric MD LAB BLOOD ORDERABLES Final Resu lt Performing Organization Address [facility]/ZIP Co de Phone Number [facility] [address] [place] [address] * Alpha Fetoprotein, Serum (07/19/2024 12:02 AM EDT) Alpha Fetoprotein, Serum <2.3 <10.0 ng/mL 07/19/2024 2:39 AM EDT [facility] Blood Venous blood specimen / Unknown Venipuncture / Unknown 07/19/2024 12:02 AM EDT 07/19/2024 12:06 AM EDT Narrative [facility] - 07/19/2024 2:39 AM EDT Performed by [employer] electrochemiluminescent immunoassay which is traceable to the 1st AFP IRP WHO Reference standard 72/255. Results obtained with different test methods or kits cannot be used interchangeably. Edgardo Corbett MD LAB BLOOD ORDERABLES Final Resu lt Performing Organization Address [facility] [place] [address] * Prostate Cancer Screen, Serum (07/19/2024 12:02 AM EDT) Prostate Cancer Screen, Serum 0.19 0.00 - 6.50 ng/mL 07/19/2024 1:39 AM EDT [facility] Blood Venous blood specimen / Unknown Venipuncture / Unknown 07/19/2024 12:02 AM EDT 07/19/2024 12:06 AM EDT Narrative [facility] - 07/19/2024 1:39 AM EDT Performed by [employer] electrochemiluminescent immunoassay which is standardized against the PSA Micha Reference Standard (WHO 96/670). Results obtained with different test methods or kits cannot be used interchangeably. Edgardo Corbett MD LAB BLOOD ORDERABLES Final Resu lt Performing Organization Address City/[facility]/ZIP Co de Phone Number [facility] [address] [place] [address] * Cancer Antigen, GI (CA 19.9) (07/19/2024 12:02 AM EDT) [facility] [place] 19.9 20.9 <36 U/mL 07/19/2024 2:3 9 AM EDT [facility] Blood Venous blood specimen / Unknown Venipuncture / Unknown 07/19/2024 12:02 AM EDT 07/19/2024 12:06 AM EDT Narrative [facility] - 07/19/2024 2:39 AM EDT Performed by [employer] electrochemiluminescent immunoassay. Results obtained with different test methods or kits cannot be used interchangeably. Edgardo Corbett MD LAB BLOOD ORDERABLES Final Resu lt Performing Organization Address [facility] Co de Phone Number [facility] [address] [place] [address] * (ABNORMAL) CEA, Serum (07/19/2024 12:02 AM EDT) [facility] CEA, Serum 8.8(H) <4.0 ng/mL 07/19/2024 2:39 AM EDT [facility] Blood Venous blood specimen / Unknown Venipuncture / Unknown 07/19/2024 12:02 AM EDT 07/19/2024 12:06 AM EDT Narrative [facility] - 07/19/2024 2:39 AM EDT Normal range for smokers: < 5.5 ng/ml Normal range for non-smokers: <=4.0 ng/ml Performed by [employer] electrochemiluminescent immunoassay. Results obtained with different test methods or kits cannot be used interchangeably. us Edgardo Corbett MD LAB BLOOD ORDERABLES Final Resu lt Performing Organization Address [facility]/[place] [address] * (ABNORMAL) POCT glucose meter (07/18/2024 7:44 PM EDT) [facility] POCT Glucose 165(H) 74 - 99 mg/dL 07/18/2024 7:45 PM EDT [facility] Comment:Accuracy of a glucos e result obtained from a capillary whole blood specimen relies upon adequate, non-compromised capillary blood flow. If the capillary glucose result is not consistent with the patient's clinical signs and symptoms, glucose testing should be repeated with either an arterial or venous sample on the glucometer or sent to the main labortory for testing. Comment 07/18/2024 7:45 PM EDT [facility] Chief Design Engineer ID Vivi Petty 07/18/2024 7:45 PM EDT [facility] Device ID [id number] 07/18/2024 7:45 PM EDT [facility] Specimen Type POC Capillary 07/18/2024 7:45 PM EDT [facility] Blood Capillary blood specimen / Unknown 07/18/2024 7:44 PM EDT 07/18/2024 7:45 PM EDT Edgardo Corbett MD LAB POINT OF CARE TE ST DOCKED DEVICE UNSOLICITED RESULTS Final Result Performing Organization Address City/State/[facility] Co de Phone Number [facility] [address] [place] [address] * (ABNORMAL) POCT glucose meter (07/18/2024 4:45 PM EDT) POCT Glucose 170(H) 74 - 99 mg/dL 07/18/2024 4:47 PM EDT [facility] Comment:Accuracy of a glucos e result obtained from a capillary whole blood specimen relies upon adequate, non-compromised capillary blood flow. If the capillary glucose result is not consistent with the patient's clinical signs and symptoms, glucose testing should be repeated with either an arterial or venous sample on the glucometer or sent to the main labortory for testing. Comment 07/18/2024 4:47 PM EDT [facility] Chief Design Engineer ID Glenny Styles 025 4:47 PM EDT [facility] Device ID [id number] 07/18/2024 4:47 PM EDT [facility]ALTH[facility] Specimen Type POC Capillary 07/18/2024 4:47 PM EDT [facility] Blood Capillary blood specimen / Unknown 07/18/2024 4:45 PM EDT 07/18/2024 4:47 PM EDT Edgardo Corbett MD LAB POINT OF CARE TE ST DOCKED DEVICE UNSOLICITED RESULTS Final Result Performing Organization Address City/[facility] Co de Phone Number HEALTHCARE LAB [address] [place] [address] * (ABNORMAL) POCT glucose meter (07/18/2024 12:57 PM EDT) POCT Glucose 158(H) 74 - 99 mg/dL 07/18/2024 12:58 PM EDT [facility] Comment:Accuracy of a glucos e result obtained from a capillary whole blood specimen relies upon adequate, non-compromised capillary blood flow. If the capillary glucose result is not consistent with the patient's clinical signs and symptoms, glucose testing should be repeated with either an arterial or venous sample on the glucometer or sent to the main labortory for testing. Comment 07/18/2024 12:58 PM EDT [facility]ALTH[facility] Chief Design Engineer ID Juanis Ruiz 025 12:58 PM EDT HEALTHCARE LAB Device ID [id number] 07/18/2024 12:58 PM EDT [facility] Specimen Type POC Capillary 07/18/2024 12:58 PM EDT [facility] Blood Capillary blood specimen / Unknown 07/18/2024 12:57 PM EDT 07/18/2024 12:58 PM EDT us Edgardo Corbett MD LAB POINT OF CARE TE ST DOCKED DEVICE UNSOLICITED RESULTS Final Result Performing Organization Address [facility] de Phone Number [facility] [address] [place] [address] * (ABNORMAL) POCT glucose meter (07/18/2024 12:04 PM EDT) POCT Glucose 57(L) 74 - 99 mg/dL 07/18/2024 12:05 PM EDT [facility] Comment:Accuracy of a glucos e result obtained from a capillary whole blood specimen relies upon adequate, non-compromised capillary blood flow. If the capillary glucose result is not consistent with the patient's clinical signs and symptoms, glucose testing should be repeated with either an arterial or venous sample on the glucometer or sent to the main labortory for testing. Comment 07/18/2024 12:05 PM EDT [facility]ALTH[facility] Chief Design Engineer ID Renate Mathew 07/19/19 12:05 PM EDT HEALTHCARE LAB Device ID [id number] 07/18/2024 12:05 PM EDT [facility]ALTH[facility] Specimen Type POC Capillary 07/18/2024 12:05 PM EDT [facility] Blood Capillary blood specimen / Unknown 07/18/2024 12:04 PM EDT 07/18/2024 12:05 PM EDT Edgardo Corbett MD LAB POINT OF CARE TE ST DOCKED DEVICE UNSOLICITED RESULTS Final Result Performing Organization Address City/[facility] Co de Phone Number HEALTHCARE LAB [address] [place] [address] * (ABNORMAL) POCT glucose meter (07/18/2024 11:39 AM EDT) POCT Glucose 63(L) 74 - 99 mg/dL 07/18/2024 11:40 AM EDT [facility] Comment:Accuracy of a glucos e result obtained from a capillary whole blood specimen relies upon adequate, non-compromised capillary blood flow. If the capillary glucose result is not consistent with the patient's clinical signs and symptoms, glucose testing should be repeated with either an arterial or venous sample on the glucometer or sent to the main labortory for testing. Comment 07/18/2024 11:40 AM EDT [facility] Chief Design Engineer ID Juanis uRiz 025 11:40 AM EDT [facility]ALTH[facility]ARE LAB Device ID [id number] 07/18/2024 11:40 AM EDT [facility] Specimen Type POC Capillary 07/18/2024 11:40 AM EDT [facility] Blood Capillary blood specimen / Unknown 07/18/2024 11:39 AM EDT 07/18/2024 11:40 AM EDT Edgardo Corbett MD LAB POINT OF CARE TE ST DOCKED DEVICE UNSOLICITED RESULTS Final Result Performing Organization Address City/[facility]/ZIP Co de Phone Number [facility]ALTHCARE [facility] [address] [place] [address] * [place] Modified Barium Swallow (07/18/2024 8:35 AM EDT) Anatomical Region Laterality Modality Esophagus, stomach and duodenum Digital Radiography Impressions 07/18/2024 3:28 PM EDT No aspiration of any tested consistency. Laryngeal penetration of thin, nectar, and honey barium consistencies. Please see separate note by Speech therapy team for dietary recommendations. CRITICAL RESULT: No. COMMUNICATION: Per this written report. By electronically signing this report, I, the attending physician, attest that I have personally reviewed the images/data for the above examination(s) and agree with the final edited report. Drafted by DK Aguirre RT (R) on 07/18/2024 10:53 AM Final report signed by Bud Fong MD on 07/18/2024 3:28 PM Narrative 07/18/2024 3:28 PM EDT CLINICAL INDICATION: Dysphagia TECHNIQUE: Modified barium swallow was performed utilizing video fluoroscopy in conjunction with the Speech Pathology team. The patient ingested barium media of varying consistencies. Fluoroscopy Time: 2.9 minutes. COMPARISON: None. FINDINGS: Swallowing: Thin consistency (IDDSI 0): No aspiration. There is deep laryngeal penetration by the teaspoon. Labelle consistency (IDDSI 2): No aspiration. There is laryngeal penetration by the teaspoon. Honey consistency (IDDSI 3): No aspiration. There is laryngeal penetration with and without a chin tuck or head turn maneuver by the cup. There is no laryngeal penetration by the teaspoon with a left head turn maneuver. Pudding consistency (IDDSI 4): No aspiration or laryngeal penetration. There is reduced valleculae and pyriform sinus residue with a left head turn maneuver. Other: There is valleculae and pyriform sinus residue. The patient is edentulous. Procedure Note Bud Fong MD - 07/18/2024 CLINICAL INDICATION: Dysphagia TECHNIQUE: Modified barium swallow was performed utilizing video fluoroscopy inconjunction with the Speech Pathology team. The patient ingested bariummedia of varying consistencies. Fluoroscopy Time: 2.9 minutes. COMPARISON: None. FINDINGS: Swallowing: Thin consistency (IDDSI 0): No aspiration. There is deep laryngealpenetration by the teaspoon. Labelle consistency (IDDSI 2): No aspiration. There is laryngealpenetration by the teaspoon. Honey consistency (IDDSI 3): No aspiration. There is laryngeal penetrationwith and without a chin tuck or head turn maneuver by the cup. There is nolaryngeal penetration by the teaspoon with a left head turn maneuver. Pudding consistency (IDDSI 4): No aspiration or laryngeal penetration.There is reduced valleculae and pyriform sinus residue with a left headturn maneuver. Other: There is valleculae and pyriform sinus residue. The patient isedentulous. IMPRESSION: No aspiration of any tested consistency. Laryngeal penetration of thin, nectar, and honey barium consistencies. Please see separate note by Speech therapy team for dietaryrecommendations. CRITICAL RESULT: No. COMMUNICATION: Per this written report. By electronically signing this report, I, the attending physician, attzacthat I have personally reviewed the images/data for the aboveexamination(s) and agree with the final edited report. Drafted by DK Aguirre RT (R) on 07/18/2024 10:53 AM Final report signed by Bud Fong MD on 07/18/2024 3:28 PM Dc Torres MD IMG FLUOROSCOPY PROCEDURES Final Result * (ABNORMAL) POCT glucose meter (07/18/2024 7:49 AM EDT) POCT Glucose 122(H) 74 - 99 mg/dL 07/18/2024 7:50 AM EDT [facility] Comment:Accuracy of a glucos e result obtained from a capillary whole blood specimen relies upon adequate, non-compromised capillary blood flow. If the capillary glucose result is not consistent with the patient's clinical signs and symptoms, glucose testing should be repeated with either an arterial or venous sample on the glucometer or sent to the main labortory for testing. Comment 07/18/2024 7:50 AM EDT [facility] Chief Design Engineer ID Juanis Ruiz 025 7:50 AM EDT [facility] Device ID [id number] 07/18/2024 7:50 AM EDT [facility] Specimen Type POC Capillary 07/18/2024 7:50 AM EDT [facility] Blood Capillary blood specimen / Unknown 07/18/2024 7:49 AM EDT 07/18/2024 7:50 AM EDT us Edgardo Corbett MD LAB POINT OF CARE TE ST DOCKED DEVICE UNSOLICITED RESULTS Final Result Performing Organization Address City/[facility]/ZIP Co de Phone Number [facility] [address] [place] [address] * N-Terminal Probnp (07/18/2024 5:48 AM EDT) N-Terminal, PROBNP, Plasma 545 0 - 899 pg/mL 07/18/2024 2:54 PM EDT [facility] Blood Venous blood specimen / Unknown Venipuncture / Unknown 07/18/2024 5:48 AM EDT 07/18/2024 5:53 AM EDT us Edgardo Corbett MD LAB BLOOD ORDERABLES Final Resu lt Performing Organization Address City/[facility]/ZIP Co de Phone Number [facility] [address] [place] [address] * (ABNORMAL) Cystatin C (07/18/2024 5:48 AM EDT) Cystatin C 1.01(H) 0.61 - 0.95 mg/L 07/18/2024 6:39 AM EDT [facility] Blood Venous blood specimen / Unknown Venipuncture / Unknown 07/18/2024 5:48 AM EDT 07/18/2024 5:53 AM EDT us Edgardo Corbett MD LAB BLOOD ORDERABLES Final Resu lt Performing Organization Address City/[facility]/ZIP Co de Phone Number [facility] [address] [place] [address] * (ABNORMAL) C-Reactive Protein, Plasma (07/18/2024 5:48 AM EDT) CRP, Plasma 148.4(H) <=8.0 mg/L 07/18/2024 6:28 AM EDT [facility] Blood Venous blood specimen / Unknown Venipuncture / Unknown 07/18/2024 5:48 AM EDT 07/18/2024 5:53 AM EDT Narrative [facility] - 07/18/2024 6:28 AM EDT This CRP test is appropriate for assessment of infection, systemic inflammation and/or tissue injury. To assess cardiovascular disease risk order high sensitivity CRP (CRPH). us Edgardo Corbett MD LAB BLOOD ORDERABLES Final Resu lt [facility] [address] [place] [address] * (ABNORMAL) Comprehensive Metabolic Panel, Plasma (07/18/2024 5:48 AM EDT) Glucose, Plasma 141(H) 74 - 99 mg/dL 07/18/2024 6:28 AM EDT [facility] BUN, Plasma 8 8 - 23 mg/dL 07/18/2024 6:28 AM EDT [facility] Creatinine, Plasma 0.78 0.70 - 1.20 mg/dL 07/18/2024 6:28 AM EDT [facility] BUN/Creatinine Ratio 10 07/18/2024 6:28 AM EDT [facility] Sodium, Plasma 140 136 - 145 mmol/L 07/18/2024 6:28 AM EDT [facility] Potassium, Plasma 3.5(L) 3.6 - 4.9 mmol/L 07/18/2024 6:28 AM EDT [facility] Chloride, Plasma 105 97 - 107 mmol/L 07/18/2024 6:28 AM EDT [facility] CO2, Plasma 28 22 - 29 mmol/L 07/18/2024 6:28 AM EDT [facility] Anion Gap 7 6 - 16 mmol/L 07/18/2024 6:28 AM EDT [facility] Total Calcium, Plasma 8.5(L) 8.9 - 10.2 mg/dL 07/18/2024 6:28 AM EDT [facility] Total Protein 5.9(L) 6.3 - 7.9 g/dL 07/18/2024 6:28 AM EDT [facility] Albumin, Plasma 2.9(L) 3.5 - 5.2 g/dL 07/18/2024 6:28 AM EDT [facility] AST, Plasma 30 10 - 50 U/L 07/18/2024 6:28 AM EDT [facility] ALT, Plasma 29 10 - 50 U/L 07/18/2024 6:28 AM EDT [facility] Alkaline Phosphatase, Plasma 97 40 - 115 U/L 07/18/2024 6:28 AM EDT [facility] Total Bilirubin, Plasma 0.6 0.2 - 1.1 mg/dL 07/18/2024 6:28 AM EDT [facility] eGFRcr 95.9 mL/min/1.7 3m*2 07/18/2024 6:28 AM EDT [facility] Comment:Reported eGFRcr in m L/min/1.73m2 is based the CKD-EPI 2020 equation that does not use a race coefficient. Blood Venous blood specimen / Unknown Venipuncture / Unknown 07/18/2024 5:48 AM EDT 07/18/2024 5:53 AM EDT us Edgardo Corbett MD LAB BLOOD ORDERABLES Final Resu lt [facility] [address] [place] [address] * Phosphorus, Plasma (07/18/2024 5:48 AM EDT) Phosphorus, Plasma 2.7 2.5 - 4.5 mg/dL 07/18/2024 6:28 AM EDT [facility] Blood Venous blood specimen / Unknown Venipuncture / Unknown 07/18/2024 5:48 AM EDT 07/18/2024 5:53 AM EDT us Dc Torres MD LAB BLOOD ORDERABLES Final Result Performing Organization Address City/[facility]/ZIP Co de Phone Number [facility] [address] [place] [address] * Magnesium, Plasma (07/18/2024 5:48 AM EDT) Magnesium, Plasma 1.9 1.9 - 2.4 mg/dL 07/18/2024 6:28 AM EDT [facility] Blood Venous blood specimen / Unknown Venipuncture / Unknown 07/18/2024 5:48 AM EDT 07/18/2024 5:53 AM EDT Dc Torres MD LAB BLOOD ORDERABLES Final Result [facility] [address] [place] [address] * (ABNORMAL) CBC and Differential (07/18/2024 5:48 AM EDT) WBC Count 5.15 3.70 - 10.30 10*3/uL LAB HEMATOLOGY METHOD 07/18/2024 6:06 AM EDT [facility] RBC Count 3.46(L) 4.60 - 6.10 10*6/uL LAB HEMATOLOGY METHOD 07/18/2024 6:06 AM EDT [facility] HGB 9.8(L) 13.7 - 17.5 g/dL LAB HEMATOLOGY METHOD 07/18/2024 6:06 AM EDT [facility] HCT 30.7(L) 40.0 - 51.0 % LAB HEMATOLOGY METHOD 07/18/2024 6:06 AM EDT [facility] Platelet Count 121(L) 155 - 369 10*3/uL LAB HEMATOLOGY METHOD 07/18/2024 6:06 AM EDT [facility] MCV 89 79 - 98 fL LAB HEMATOLOGY METHOD 07/18/2024 6:06 AM EDT [facility] MCH 28.3 26.0 - 32.0 pg LAB HEMATOLOGY METHOD 07/18/2024 6:06 AM EDT [facility] MCHC 31.9 30.7 - 35.5 g/dL LAB HEMATOLOGY METHOD 07/18/2024 6:06 AM EDT [facility] RDW 16.6(H) 11.5 - 14.5 % LAB HEMATOLOGY METHOD 07/18/2024 6:06 AM EDT [facility] MPV 9.0 8.8 - 12.5 fL LAB HEMATOLOGY METHOD 07/18/2024 6:06 AM EDT [facility] nRBC 0.0 <=0.0 per 100 WBCs LAB HEMATOLOGY METHOD 07/18/2024 6:06 AM EDT [facility] Differential Type Automated LAB HEMATOLOGY METHOD 07/18/2024 6:06 AM EDT [facility] Neutrophils % 64 % LAB HEMATOLOGY METHOD 07/18/2024 6:06 AM EDT [facility] Lymphocytes % 17 % LAB HEMATOLOGY METHOD 07/18/2024 6:06 AM EDT [facility] Monocytes % 7 % LAB HEMATOLOGY METHOD 07/18/2024 6:06 AM EDT [facility] Eosinophils % 12 % LAB HEMATOLOGY METHOD 07/18/2024 6:06 AM EDT [facility] Basophils % 0 % LAB HEMATOLOGY METHOD 07/18/2024 6:06 AM EDT [facility] Immature Granulocytes % 0 % LAB HEMATOLOGY METHOD 07/18/2024 6:06 AM EDT [facility] Neutrophils Absolute 3.27 1.60 - 6.10 10*3/uL LAB HEMATOLOGY METHOD 07/18/2024 6:06 AM EDT [facility] Lymphocytes Absolute 0.87(L) 1.20 - 3.90 10*3/uL LAB HEMATOLOGY METHOD 07/18/2024 6:06 AM EDT [facility] Monocytes Absolute 0.34 0.30 - 0.90 10*3/uL LAB HEMATOLOGY METHOD 07/18/2024 6:06 AM EDT [facility] Eosinophils Absolute 0.63(H) 0.00 - 0.50 10*3/uL LAB HEMATOLOGY METHOD 07/18/2024 6:06 AM EDT [facility] Basophils Absolute 0.02 0.00 - 0.10 10*3/uL LAB HEMATOLOGY METHOD 07/18/2024 6:06 AM EDT [facility] Immature Granulocytes Absolute 0.02 0.00 - 0.06 10*3/uL LAB HEMATOLOGY METHOD 07/18/2024 6:06 AM EDT [facility] Blood Venous blood specimen / Unknown Venipuncture / Unknown 07/18/2024 5:48 AM EDT 07/18/2024 5:56 AM EDT Narrative [facility] - 07/18/2024 6:06 AM EDT Therapeutic decision making should be based on absolute values, rather than percentages. Dc Torres MD LAB BLOOD ORDERABLES Final Result Performing Organization Address City/[facility] Co de Phone Number [facility] [address] [place] [address] * (ABNORMAL) POCT glucose meter (07/17/2024 8:07 PM EDT) POCT Glucose 119(H) 74 - 99 mg/dL 07/17/2024 8:08 PM EDT [facility] Comment:Accuracy of a glucos e result obtained from a capillary whole blood specimen relies upon adequate, non-compromised capillary blood flow. If the capillary glucose result is not consistent with the patient's clinical signs and symptoms, glucose testing should be repeated with either an arterial or venous sample on the glucometer or sent to the main labortory for testing. Comment 07/17/2024 8:08 PM EDT [facility]ALTH[facility] Chief Design Engineer ID Tripp Askew 07/17/2024 8:08 PM EDT HEALTH[facility]ARE LAB Device ID [id number] 07/17/2024 8:08 PM EDT [facility] Specimen Type POC Capillary 07/17/2024 8:08 PM EDT [facility] Blood Capillary blood specimen / Unknown 07/17/2024 8:07 PM EDT 07/17/2024 8:08 PM EDT Edgardo Corbett MD LAB POINT OF CARE TE ST DOCKED DEVICE UNSOLICITED RESULTS Final Result Performing Organization Address City/[facility]/ZIP Co de Phone Number [facility] [address] [place] [address] * (ABNORMAL) POCT glucose meter (07/17/2024 5:28 PM EDT) POCT Glucose 127(H) 74 - 99 mg/dL 07/17/2024 5:29 PM EDT [facility] Comment:Accuracy of a glucos e result obtained from a capillary whole blood specimen relies upon adequate, non-compromised capillary blood flow. If the capillary glucose result is not consistent with the patient's clinical signs and symptoms, glucose testing should be repeated with either an arterial or venous sample on the glucometer or sent to the main labortory for testing. Comment 07/17/2024 5:29 PM EDT [facility] Chief Design Engineer ID Cecy Huntley 025 5:29 PM EDT [facility]ALTH[facility] LAB Device ID [id number] 07/17/2024 5:29 PM EDT [facility] Specimen Type POC Capillary 07/17/2024 5:29 PM EDT [facility] Blood Capillary blood specimen / Unknown 07/17/2024 5:28 PM EDT 07/17/2024 5:29 PM EDT us Edgardo Corbett MD LAB POINT OF CARE TE ST DOCKED DEVICE UNSOLICITED RESULTS Final Result [facility] [address] [place] [address] * (ABNORMAL) POCT glucose meter (07/17/2024 11:34 AM EDT) [facility] POCT Glucose 212(H) 74 - 99 mg/dL 07/17/2024 11:35 AM EDT [facility] Comment:Accuracy of a glucos e result obtained from a capillary whole blood specimen relies upon adequate, non-compromised capillary blood flow. If the capillary glucose result is not consistent with the patient's clinical signs and symptoms, glucose testing should be repeated with either an arterial or venous sample on the glucometer or sent to the main labortory for testing. Comment 07/17/2024 11:35 AM EDT [facility] Chief Design Engineer ID Cecy Huntley 025 11:35 AM EDT [facility]ALTH[facility] Device ID [id number] 07/17/2024 11:35 AM EDT [facility]ALTH[facility] Specimen Type POC Capillary 07/17/2024 11:35 AM EDT [facility] Blood Capillary blood specimen / Unknown 07/17/2024 11:34 AM EDT 07/17/2024 11:35 AM EDT us Edgardo Corbett MD LAB POINT OF CARE TE ST DOCKED DEVICE UNSOLICITED RESULTS Final Result Performing Organization Address [facility] de Phone Number [facility] [address] [place] [address] * (ABNORMAL) POCT glucose meter (07/17/2024 8:06 AM EDT) POCT Glucose 138(H) 74 - 99 mg/dL 07/17/2024 8:07 AM EDT [facility] Comment:Accuracy of a glucos e result obtained from a capillary whole blood specimen relies upon adequate, non-compromised capillary blood flow. If the capillary glucose result is not consistent with the patient's clinical signs and symptoms, glucose testing should be repeated with either an arterial or venous sample on the glucometer or sent to the main labortory for testing. Comment 07/17/2024 8:07 AM EDT [facility]ALTH[facility] Chief Design Engineer ID Cecy Huntley 025 8:07 AM EDT HEALTH[facility]ARE LAB Device ID [id number] 07/17/2024 8:07 AM EDT [facility] Specimen Type POC Capillary 07/17/2024 8:07 AM EDT [facility] Blood Capillary blood specimen / Unknown 07/17/2024 8:06 AM EDT 07/17/2024 8:07 AM EDT us Edgardo Corbett MD LAB POINT OF CARE TE ST DOCKED DEVICE UNSOLICITED RESULTS Final Result Performing Organization Address [facility] de Phone Number [facility] [address] [place] [address] * (ABNORMAL) Cystatin C (07/17/2024 3:14 AM EDT) Pathologist [facility] Cystatin C 1.06(H) 0.61 - 0.95 mg/L 07/17/2024 4:35 AM EDT [facility] Blood Venous blood specimen / Unknown Venipuncture / Unknown 07/17/2024 3:14 AM EDT 07/17/2024 3:33 AM EDT us Edgardo Corbett MD LAB BLOOD ORDERABLES Final Resu lt [facility] [address] [place] [address] * (ABNORMAL) C-Reactive Protein, Plasma (07/17/2024 3:14 AM EDT) CRP, Plasma 154.0(H) <=8.0 mg/L 07/17/2024 4:13 AM EDT [facility] Blood Venous blood specimen / Unknown Venipuncture / Unknown 07/17/2024 3:14 AM EDT 07/17/2024 3:33 AM EDT Narrative [facility] - 07/17/2024 4:13 AM EDT This CRP test is appropriate for assessment of infection, systemic inflammation and/or tissue injury. To assess cardiovascular disease risk order high sensitivity CRP (CRPH). us Edgardo Corbett MD LAB BLOOD ORDERABLES Final Resu lt [facility] [address] [place] [address] * (ABNORMAL) Comprehensive Metabolic Panel, Plasma (07/17/2024 3:14 AM EDT) Glucose, Plasma 202(H) 74 - 99 mg/dL 07/17/2024 4:13 AM EDT [facility] BUN, Plasma 10 8 - 23 mg/dL 07/17/2024 4:13 AM EDT [facility] Creatinine, Plasma 0.85 0.70 - 1.20 mg/dL 07/17/2024 4:13 AM EDT [facility] BUN/Creatinine Ratio 12 07/17/2024 4:13 AM EDT [facility] Sodium, Plasma 140 136 - 145 mmol/L 07/17/2024 4:13 AM EDT [facility] Potassium, Plasma 3.5(L) 3.6 - 4.9 mmol/L 07/17/2024 4:13 AM EDT [facility] Chloride, Plasma 105 97 - 107 mmol/L 07/17/2024 4:13 AM EDT [facility] CO2, Plasma 27 22 - 29 mmol/L 07/17/2024 4:13 AM EDT [facility] Anion Gap 8 6 - 16 mmol/L 07/17/2024 4:13 AM EDT [facility] Total Calcium, Plasma 8.2(L) 8.9 - 10.2 mg/dL 07/17/2024 4:13 AM EDT [facility] Total Protein 5.4(L) 6.3 - 7.9 g/dL 07/17/2024 4:13 AM EDT [facility] Albumin, Plasma 2.8(L) 3.5 - 5.2 g/dL 07/17/2024 4:13 AM EDT [facility] AST, Plasma 27 10 - 50 U/L 07/17/2024 4:13 AM EDT [facility] ALT, Plasma 30 10 - 50 U/L 07/17/2024 4:13 AM EDT [facility] Alkaline Phosphatase, Plasma 87 40 - 115 U/L 07/17/2024 4:13 AM EDT [facility] Total Bilirubin, Plasma 0.6 0.2 - 1.1 mg/dL 07/17/2024 4:13 AM EDT [facility] eGFRcr 93.5 mL/min/1.7 3m*2 07/17/2024 4:13 AM EDT [facility] Comment:Reported eGFRcr in m L/min/1.73m2 is based the CKD-EPI 2020 equation that does not use a race coefficient. Blood Venous blood specimen / Unknown Venipuncture / Unknown 07/17/2024 3:14 AM EDT 07/17/2024 3:33 AM EDT us Edgardo Corbett MD LAB BLOOD ORDERABLES Final Resu lt [facility] [address] [place] [address] * Phosphorus, Plasma (07/17/2024 3:14 AM EDT) Phosphorus, Plasma 3.4 2.5 - 4.5 mg/dL 07/17/2024 4:13 AM EDT [facility] Blood Venous blood specimen / Unknown Venipuncture / Unknown 07/17/2024 3:14 AM EDT 07/17/2024 3:33 AM EDT Dc Torres MD LAB BLOOD ORDERABLES Final Result [facility] [address] [place] [address] * Magnesium, Plasma (07/17/2024 3:14 AM EDT) Magnesium, Plasma 1.9 1.9 - 2.4 mg/dL 07/17/2024 4:13 AM EDT [facility] Blood Venous blood specimen / Unknown Venipuncture / Unknown 07/17/2024 3:14 AM EDT 07/17/2024 3:33 AM EDT Dc Torres MD LAB BLOOD ORDERABLES Final Result Performing Organization Address City/[facility]/ZIP Co de Phone Number [facility] [address] [place] [address] * (ABNORMAL) CBC and Differential (07/17/2024 3:14 AM EDT) WBC Count 5.26 3.70 - 10.30 10*3/uL LAB HEMATOLOGY METHOD 07/17/2024 3:49 AM EDT [facility] RBC Count 3.21(L) 4.60 - 6.10 10*6/uL LAB HEMATOLOGY METHOD 07/17/2024 3:49 AM EDT [facility] HGB 9.0(L) 13.7 - 17.5 g/dL LAB HEMATOLOGY METHOD 07/17/2024 3:49 AM EDT [facility] HCT 28.9(L) 40.0 - 51.0 % LAB HEMATOLOGY METHOD 07/17/2024 3:49 AM EDT [facility] Platelet Count 105(L) 155 - 369 10*3/uL LAB HEMATOLOGY METHOD 07/17/2024 3:49 AM EDT [facility] MCV 90 79 - 98 fL LAB HEMATOLOGY METHOD 07/17/2024 3:49 AM EDT [facility] MCH 28.0 26.0 - 32.0 pg LAB HEMATOLOGY METHOD 07/17/2024 3:49 AM EDT [facility] MCHC 31.1 30.7 - 35.5 g/dL LAB HEMATOLOGY METHOD 07/17/2024 3:49 AM EDT [facility] RDW 16.5(H) 11.5 - 14.5 % LAB HEMATOLOGY METHOD 07/17/2024 3:49 AM EDT [facility] MPV 9.6 8.8 - 12.5 fL LAB HEMATOLOGY METHOD 07/17/2024 3:49 AM EDT [facility] nRBC 0.0 <=0.0 per 100 WBCs LAB HEMATOLOGY METHOD 07/17/2024 3:49 AM EDT [facility] Differential Type Automated LAB HEMATOLOGY METHOD 07/17/2024 3:49 AM EDT [facility] Neutrophils % 69 % LAB HEMATOLOGY METHOD 07/17/2024 3:49 AM EDT [facility] Lymphocytes % 15 % LAB HEMATOLOGY METHOD 07/17/2024 3:49 AM EDT [facility] Monocytes % 7 % LAB HEMATOLOGY METHOD 07/17/2024 3:49 AM EDT [facility] Eosinophils % 9 % LAB HEMATOLOGY METHOD 07/17/2024 3:49 AM EDT [facility] Basophils % 0 % LAB HEMATOLOGY METHOD 07/17/2024 3:49 AM EDT [facility] Immature Granulocytes % 0 % LAB HEMATOLOGY METHOD 07/17/2024 3:49 AM EDT [facility] Neutrophils Absolute 3.62 1.60 - 6.10 10*3/uL LAB HEMATOLOGY METHOD 07/17/2024 3:49 AM EDT [facility] Lymphocytes Absolute 0.78(L) 1.20 - 3.90 10*3/uL LAB HEMATOLOGY METHOD 07/17/2024 3:49 AM EDT [facility] Monocytes Absolute 0.34 0.30 - 0.90 10*3/uL LAB HEMATOLOGY METHOD 07/17/2024 3:49 AM EDT [facility] Eosinophils Absolute 0.48 0.00 - 0.50 10*3/uL LAB HEMATOLOGY METHOD 07/17/2024 3:49 AM EDT [facility] Basophils Absolute 0.02 0.00 - 0.10 10*3/uL LAB HEMATOLOGY METHOD 07/17/2024 3:49 AM EDT [facility] Immature Granulocytes Absolute 0.02 0.00 - 0.06 10*3/uL LAB HEMATOLOGY METHOD 07/17/2024 3:49 AM EDT [facility] Blood Venous blood specimen / Unknown Venipuncture / Unknown 07/17/2024 3:14 AM EDT 07/17/2024 3:36 AM EDT Narrative [facility] - 07/17/2024 3:49 AM EDT Therapeutic decision making should be based on absolute values, rather than percentages. Dc Torres MD LAB BLOOD ORDERABLES Final Result [facility] [address] [place] [address] * Creatine Kinase (CK), Total (07/17/2024 3:14 AM EDT) Creatine Kinase, Plasma 143 49 - 320 U/L 07/17/2024 4:13 AM EDT [facility] Blood Venous blood specimen / Unknown Venipuncture / Unknown 07/17/2024 3:14 AM EDT 07/17/2024 3:33 AM EDT Dc Torres MD LAB BLOOD ORDERABLES Final Result Performing Organization Address City/[facility]/ZIP Co de Phone Number [facility] [address] [place] [address] * TSH Reflex FT4 (07/17/2024 3:14 AM EDT) Thyroid Stimulating Hormone, Plasma 2.96 0.40 - 4.20 uIU/mL 07/17/2024 4:13 AM EDT [facility] Blood Venous blood specimen / Unknown Venipuncture / Unknown 07/17/2024 3:14 AM EDT 07/17/2024 3:33 AM EDT Dc Torres MD LAB BLOOD ORDERABLES Final Result [facility] [address] [place] [address] * Folate, Serum (07/17/2024 3:14 AM EDT) Pathologist [facility] Folate, Serum >20.0 >4.6 ng/mL 07/17/2024 4:22 AM EDT [facility] Blood Venous blood specimen / Unknown Venipuncture / Unknown 07/17/2024 3:14 AM EDT 07/17/2024 3:33 AM EDT Dc Torres MD LAB BLOOD ORDERABLES Final Result [facility] [address] [place] [address] * Vitamin B12, Serum (07/17/2024 3:14 AM EDT) [facility] Vitamin B12, Serum 580 210 - 1,033 pg/mL 07/17/2024 4:22 AM EDT [facility] Blood Venous blood specimen / Unknown Venipuncture / Unknown 07/17/2024 3:14 AM EDT 07/17/2024 3:33 AM EDT Dc Torres MD LAB BLOOD ORDERAB[place] [address] * Ferritin, Serum (07/17/2024 3:14 AM EDT) [facility] Ferritin, Serum 97 20 - 400 ng/mL 07/17/2024 4:22 AM EDT [facility] Blood Venous blood specimen / Unknown Venipuncture / Unknown 07/17/2024 3:14 AM EDT 07/17/2024 3:33 AM EDT Dc Torres MD LAB BLOOD ORDERAB[place] [address] * (ABNORMAL) POCT glucose meter (07/16/2024 8:04 PM EDT) [facility] POCT Glucose 165(H) 74 - 99 mg/dL 07/16/2024 8:06 PM EDT [facility] Comment:Accuracy of a glucos e result obtained from a capillary whole blood specimen relies upon adequate, non-compromised capillary blood flow. If the capillary glucose result is not consistent with the patient's clinical signs and symptoms, glucose testing should be repeated with either an arterial or venous sample on the glucometer or sent to the main labortory for testing. Comment 07/16/2024 8:06 PM EDT [facility] Chief Design Engineer ID Tripp Askew 07/16/2024 8:06 PM EDT [facility] LAB Device ID [id number] 07/16/2024 8:06 PM EDT [facility] Specimen Type POC Capillary 07/16/2024 8:06 PM EDT [facility] Blood Capillary blood specimen / Unknown 07/16/2024 8:04 PM EDT 07/16/2024 8:06 PM EDT Dc Torres MD LAB POINT OF CARE T EST DOCKED DEVICE UNSOLICITED RESULTS Final Result Performing Organization Address City/State/[facility] Co de Phone Number [facility] [address] [place] [address] * (ABNORMAL) POCT glucose meter (07/16/2024 5:23 PM EDT) [facility] POCT Glucose 190(H) 74 - 99 mg/dL 07/16/2024 5:30 PM EDT [facility] Comment:Accuracy of a glucos e result obtained from a capillary whole blood specimen relies upon adequate, non-compromised capillary blood flow. If the capillary glucose result is not consistent with the patient's clinical signs and symptoms, glucose testing should be repeated with either an arterial or venous sample on the glucometer or sent to the main labortory for testing. Comment 07/16/2024 5:30 PM EDT [facility] Chief Design Engineer ID Pernell Hernandez 07/16/2024 5:30 PM EDT [facility] Device ID [id number] 07/16/2024 5:30 PM EDT [facility] Specimen Type POC Capillary 07/16/2024 5:30 PM EDT [facility] Blood Capillary blood specimen / Unknown 07/16/2024 5:23 PM EDT 07/16/2024 5:30 PM EDT Dc Torres MD LAB POINT OF CARE T EST DOCKED DEVICE UNSOLICITED RESULTS Final Result [facility] [address] [place] [address] * (ABNORMAL) POCT glucose meter (07/16/2024 4:21 PM EDT) POCT Glucose 220(H) 74 - 99 mg/dL 07/16/2024 4:35 PM EDT [facility] Comment:Accuracy of a glucos e result obtained from a capillary whole blood specimen relies upon adequate, non-compromised capillary blood flow. If the capillary glucose result is not consistent with the patient's clinical signs and symptoms, glucose testing should be repeated with either an arterial or venous sample on the glucometer or sent to the main labortory for testing. Comment 07/16/2024 4:35 PM EDT [facility] Chief Design Engineer ID Germania Taveras 07/16/2024 4:35 PM EDT [facility] LAB Device ID [id number] 07/16/2024 4:35 PM EDT [facility] Specimen Type POC Capillary 07/16/2024 4:35 PM EDT [facility] Blood Capillary blood specimen / Unknown 07/16/2024 4:21 PM EDT 07/16/2024 4:35 PM EDT Vishal Cardona MD LAB POINT OF CARE TE ST DOCKED DEVICE UNSOLICITED RESULTS Final Result [facility] [address] [place] [address] * (ABNORMAL) POCT glucose meter (07/16/2024 2:41 PM EDT) POCT Glucose 204(H) 74 - 99 mg/dL 07/16/2024 2:43 PM EDT [facility] Comment:Accuracy of a glucos e result obtained from a capillary whole blood specimen relies upon adequate, non-compromised capillary blood flow. If the capillary glucose result is not consistent with the patient's clinical signs and symptoms, glucose testing should be repeated with either an arterial or venous sample on the glucometer or sent to the main labortory for testing. Comment 07/16/2024 2:43 PM EDT [facility] Chief Design Engineer ID Felix Lieberman 07/16/2024 2:43 PM EDT [facility] LAB Device ID [id number] 07/16/2024 2:43 PM EDT [facility] Specimen Type POC Capillary 07/16/2024 2:43 PM EDT [facility] Blood Capillary blood specimen / Unknown 07/16/2024 2:41 PM EDT 07/16/2024 2:43 PM EDT us Vishal Cardona MD LAB POINT OF CARE TE ST DOCKED DEVICE UNSOLICITED RESULTS Final Result Performing Organization Address City/State/[facility] de Phone Number [facility] [address] [place] [address] * (ABNORMAL) POCT glucose meter (07/16/2024 11:19 AM EDT) [facility] POCT Glucose 200(H) 74 - 99 mg/dL 07/16/2024 11:21 AM EDT [facility] Comment:Accuracy of a glucos e result obtained from a capillary whole blood specimen relies upon adequate, non-compromised capillary blood flow. If the capillary glucose result is not consistent with the patient's clinical signs and symptoms, glucose testing should be repeated with either an arterial or venous sample on the glucometer or sent to the main labortory for testing. Comment 07/16/2024 11:21 AM EDT [facility] Chief Design Engineer ID Germania Taveras 07/16/2024 11:21 AM EDT [facility] LAB Device ID [id number] 07/16/2024 11:21 AM EDT [facility] Specimen Type POC Capillary 07/16/2024 11:21 AM EDT [facility] Blood Capillary blood specimen / Unknown 07/16/2024 11:19 AM EDT 07/16/2024 11:21 AM EDT us Vishal Cardona MD LAB POINT OF CARE TE ST DOCKED DEVICE UNSOLICITED RESULTS Final Result [facility] [address] [place] [address] * (ABNORMAL) POCT glucose meter (07/16/2024 6:51 AM EDT) [facility] POCT Glucose 285(H) 74 - 99 mg/dL 07/16/2024 6:53 AM EDT [facility] Comment:Accuracy of a glucos e result obtained from a capillary whole blood specimen relies upon adequate, non-compromised capillary blood flow. If the capillary glucose result is not consistent with the patient's clinical signs and symptoms, glucose testing should be repeated with either an arterial or venous sample on the glucometer or sent to the main labortory for testing. Comment 07/16/2024 6:53 AM EDT [facility] Chief Design Engineer ID Usama Chowdary 07/16/2024 6:53 AM EDT [facility]ALTH[facility]ARE LAB Device ID [id number] 07/16/2024 6:53 AM EDT [facility] Specimen Type POC Capillary 07/16/2024 6:53 AM EDT [facility] Blood Capillary blood specimen / Unknown 07/16/2024 6:51 AM EDT 07/16/2024 6:53 AM EDT Vishal Cardona MD LAB POINT OF CARE TE ST DOCKED DEVICE UNSOLICITED RESULTS Final Result [facility] [address] [place] [address] * (ABNORMAL) Reticulocytes, Blood (07/16/2024 4:22 AM EDT) [facility] Reticulocyte Absolute 94.8 40.0 - 110.0 10*3/uL LAB HEMATOLOGY METHOD 07/16/2024 3:47 PM EDT [facility] Immature Reticulocyte Fraction 24.2(H) 3.1 - 17.6 % LAB HEMATOLOGY METHOD 07/16/2024 3:47 PM EDT [facility] Reticulocyte Hemoglobin 29.7 28 - 38 pg LAB HEMATOLOGY METHOD 07/16/2024 3:47 PM EDT [facility] Reticulocyte Count 2.80(H) 0.90 - 2.50 % LAB HEMATOLOGY METHOD 07/16/2024 3:47 PM EDT [facility] Blood Venous blood specimen / Unknown Venipuncture / Unknown 07/16/2024 4:22 AM EDT 07/16/2024 4:26 AM EDT Dc Torres MD LAB BLOOD ORDERABLES Final Result Performing Organization Address City/[facility]/ZIP Co de Phone Number [facility] [address] [place] [address] * (ABNORMAL) Iron & Total Iron Binding Capacity, Plasma (Includes Transferrin) (07/16/2024 4:22 AM EDT) Iron, Plasma 19(L) 50 - 170 ug/dL 07/16/2024 8:33 AM EDT [facility] Transferrin, Plasma 174(L) 200 - 360 mg/dL 07/16/2024 8:33 AM EDT [facility] Total Iron Binding Capacity, Plasma 218(L) 240 - 450 ug/mL 07/16/2024 8:33 AM EDT [facility] Transferrin Saturation 9(L) 14 - 50 % 07/16/2024 8:33 AM EDT [facility] Blood Venous blood specimen / Unknown Venipuncture / Unknown 07/16/2024 4:22 AM EDT 07/16/2024 4:44 AM EDT Dc Torres MD LAB BLOOD ORDERABLES Final Result Performing Organization Address City/[facility]/ZIP Co de Phone Number [facility] [address] [place] [address] * (ABNORMAL) CBC W/O Differential (07/16/2024 4:22 AM EDT) WBC Count 6.11 3.70 - 10.30 10*3/uL LAB HEMATOLOGY METHOD 07/16/2024 4:30 AM EDT [facility] RBC Count 3.29(L) 4.60 - 6.10 10*6/uL LAB HEMATOLOGY METHOD 07/16/2024 4:30 AM EDT [facility] HGB 9.4(L) 13.7 - 17.5 g/dL LAB HEMATOLOGY METHOD 07/16/2024 4:30 AM EDT [facility] HCT 29.2(L) 40.0 - 51.0 % LAB HEMATOLOGY METHOD 07/16/2024 4:30 AM EDT [facility] Platelet Count 111(L) 155 - 369 10*3/uL LAB HEMATOLOGY METHOD 07/16/2024 4:30 AM EDT [facility] MCV 89 79 - 98 fL LAB HEMATOLOGY METHOD 07/16/2024 4:30 AM EDT [facility] MCH 28.6 26.0 - 32.0 pg LAB HEMATOLOGY METHOD 07/16/2024 4:30 AM EDT [facility] MCHC 32.2 30.7 - 35.5 g/dL LAB HEMATOLOGY METHOD 07/16/2024 4:30 AM EDT [facility] RDW 16.9(H) 11.5 - 14.5 % LAB HEMATOLOGY METHOD 07/16/2024 4:30 AM EDT [facility] MPV 9.1 8.8 - 12.5 fL LAB HEMATOLOGY METHOD 07/16/2024 4:30 AM EDT [facility] nRBC 0.0 <=0.0 per 100 WBCs LAB HEMATOLOGY METHOD 07/16/2024 4:30 AM EDT [facility] Blood Venous blood specimen / Unknown Venipuncture / Unknown 07/16/2024 4:22 AM EDT 07/16/2024 4:26 AM EDT us Victor M Deshpande APRN LAB BLOOD ORDERABLES Final Re sult [facility] [address] [place] [address] * Lactate, venous (07/16/2024 4:22 AM EDT) Lactate, Venous, Whole Blood 0.6 0.5 - 2.2 mmol/L LAB HEMATOLOGY METHOD 07/16/2024 4:39 AM EDT [facility] Blood Venous blood specimen / Unknown Venipuncture / Unknown 07/16/2024 4:22 AM EDT 07/16/2024 4:38 AM EDT Victor M Deshpande BROTH MIXER LAB BLOOD ORDERABLES Final Re sult Performing Organization Address City/[facility]/ZIP Co de Phone Number [facility] [address] [place] [address] * Magnesium, Plasma (07/16/2024 4:22 AM EDT) Magnesium, Plasma 2.0 1.9 - 2.4 mg/dL 07/16/2024 5:28 AM EDT [facility] Blood Venous blood specimen / Unknown Venipuncture / Unknown 07/16/2024 4:22 AM EDT 07/16/2024 4:44 AM EDT us Victor M Deshpande APRN LAB BLOOD ORDERABLES Final Re sult Performing Organization Address [facility]/ZIP Co de Phone Number [facility] [address] [place] [address] * (ABNORMAL) Renal Function Panel, Plasma (07/16/2024 4:22 AM EDT) Glucose, Plasma 292(H) 74 - 99 mg/dL 07/16/2024 5:28 AM EDT [facility] BUN, Plasma 13 8 - 23 mg/dL 07/16/2024 5:28 AM EDT [facility] Creatinine, Plasma 0.87 0.70 - 1.20 mg/dL 07/16/2024 5:28 AM EDT [facility] BUN/Creatinine Ratio 15 07/16/2024 5:28 AM EDT [facility] Sodium, Plasma 140 136 - 145 mmol/L 07/16/2024 5:28 AM EDT [facility] Potassium, Plasma 3.6 3.6 - 4.9 mmol/L 07/16/2024 5:28 AM EDT [facility] Chloride, Plasma 103 97 - 107 mmol/L 07/16/2024 5:28 AM EDT [facility] CO2, Plasma 26 22 - 29 mmol/L 07/16/2024 5:28 AM EDT [facility] Anion Gap 11 6 - 16 mmol/L 07/16/2024 5:28 AM EDT [facility] Total Calcium, Plasma 8.4(L) 8.9 - 10.2 mg/dL 07/16/2024 5:28 AM EDT [facility] Phosphorus, Plasma 3.1 2.5 - 4.5 mg/dL 07/16/2024 5:28 AM EDT [facility] Albumin, Plasma 2.9(L) 3.5 - 5.2 g/dL 07/16/2024 5:28 AM EDT [facility] eGFRcr 92.8 mL/min/1.7 3m*2 07/16/2024 5:28 AM EDT [facility] Comment:Reported eGFRcr in m L/min/1.73m2 is based the CKD-EPI 2020 equation that does not use a race coefficient. Blood Venous blood specimen / Unknown Venipuncture / Unknown 07/16/2024 4:22 AM EDT 07/16/2024 4:44 AM EDT us Victor M Deshpande BROTH MIXER LAB BLOOD ORDERABLES Final Re sult [facility] [address] [place] [address] * (ABNORMAL) Prothrombin Time/INR (07/16/2024 4:22 AM EDT) Prothrombin Time 15.6(H) 12.0 - 14.3 sec 07/16/2024 4:39 AM EDT [facility] INR 1.3(H) 0.9 - 1.1 07/16/2024 4:39 AM EDT [facility] Blood Venous blood specimen / Unknown Venipuncture / Unknown 07/16/2024 4:22 AM EDT 07/16/2024 4:26 AM EDT Narrative [facility] - 07/16/2024 4:39 AM EDT OPTIMAL INR RANGES FOR PATIENT ON ORAL ANTICOAGULANT THERAPY Prevention of venous thromboembolism INR 2.0 to 3.0 In patients with heart disease: Atrial fibrillation INR 2.0 to 3.0 Valvular heart disease INR 2.0 to 3.0 Tissue heart valves INR 2.0 to 3.0 Mechanical prosthetic valves INR 2.5 to 3.5 Prevention of recurrent ND INR 2.5 to 3.5 us Victor M Deshpande APRN LAB BLOOD ORDERABLES Final Re sult Performing Organization Address City/[facility]/ZIP Co de Phone Number [facility] [address] [place] [address] * Type and Screen (07/15/2024 11:25 PM EDT) Pathologist [facility] ABO/Rh A Positive 07/15/2024 11:08 PM EDT BLOOD BANK Antibody Screen Negative 07/15/2024 11:08 PM EDT BLOOD BANK Specimen Expiration 07/18/2024 23:59 07/15/2024 11:08 PM EDT BLOOD BANK Blood Venous blood specimen / Unknown Venipuncture / Unknown 07/15/2024 11:25 PM EDT 07/15/2024 11:32 PM EDT Victor M Deshpande APRN LAB BLOOD BANK TEST ORDERABLE S Final Result Performing Organization Address [facility] de Phone Number BLOOD BANK [address] * (ABNORMAL) Hemoglobin and Hematocrit, Blood (07/15/2024 11:25 PM EDT) HGB 9.2(L) 13.7 - 17.5 g/dL LAB HEMATOLOGY METHOD 07/16/2024 12:03 AM EDT [facility] HCT 28.8(L) 40.0 - 51.0 % LAB HEMATOLOGY METHOD 07/16/2024 12:03 AM EDT [facility] Blood Venous blood specimen / Unknown Venipuncture / Unknown 07/15/2024 11:25 PM EDT 07/15/2024 11:33 PM EDT us Victor M Deshpande APRN LAB BLOOD ORDERABLES Final Re sult Performing Organization Address City/[facility]/ZIP Co de Phone Number [facility] [address] [place] [address] * (ABNORMAL) Multi Drug Resistance Test (07/15/2024 11:25 PM EDT) [facility] Culture Methicillin-Resis tant Staphylococcus aureus(AA) 07/17/2024 7:34 AM EDT [facility] Comment: The organism value for this result has been updated. These results have been appended to the previously preliminary verified report. <null> has been updated to reportable. Swab (Nares and Christiane Rectal) Non-blood Collection / Unknown 07/15/2024 11:25 PM EDT 07/16/2024 12:26 AM EDT Narrative [facility] - 07/17/2024 7:34 AM EDT This test was developed and its performance characteristics determined by the [facility]. Although the media is FDA-approved, it is not FDA-approved for all specimen types submitted. The FDA has determined that such clearance or approval is not necessary. This test is used for surveillance purposes. It should not be regarded as investigational or for research. The [facility] is certified under the Clinical Laboratory Improvement Amendments of 1988 (CLIA-88) as qualified to perform high complexity clinical laboratory testing. Victor M Deshpande APRN LAB MICROBIOLOGY - GENERAL OR DERABLES Final Result [facility] [address] [place] [address] * (ABNORMAL) POCT glucose meter (07/15/2024 9:18 PM EDT) [facility] POCT Glucose 242(H) 74 - 99 mg/dL 07/15/2024 9:20 PM EDT [facility] Comment:Accuracy of a glucos e result obtained from a capillary whole blood specimen relies upon adequate, non-compromised capillary blood flow. If the capillary glucose result is not consistent with the patient's clinical signs and symptoms, glucose testing should be repeated with either an arterial or venous sample on the glucometer or sent to the main labortory for testing. Comment 07/15/2024 9:20 PM EDT [facility] Chief Design Engineer ID Zachariah Mcnair 07/15/2024 9:20 PM EDT HEALTHCARE LAB Device ID [id number] 07/15/2024 9:20 PM EDT [facility]ALTH[facility]ARE LAB Specimen Type POC Capillary 07/15/2024 9:20 PM EDT [facility]ALTH[facility] LAB Blood Capillary blood specimen / Unknown 07/15/2024 9:18 PM EDT 07/15/2024 9:20 PM EDT Vishal Cardona MD LAB POINT OF CARE TE ST DOCKED DEVICE UNSOLICITED RESULTS Final Result Performing Organization Address City/[facility]/ZIP Co de Phone Number [facility] [address] [place] [address] * ECG Adult (07/15/2024 8:56 PM EDT) EKG DIAGNOSIS CLASS Abnormal MUSE ECG Ventricular Rate 63 BPM MUSE ECG Atrial Rate 63 BPM MUSE ECG CO Interval 162 ms MUSE ECG QRSD Interval 112 ms MUSE ECG QT Interval 482 ms MUSE ECG QTC Interval 493 ms MUSE ECG P [place] 33 degrees MUSE ECG R [place] -40 degrees MUSE ECG T Wave [place] 6 degrees MUSE ECG Diagnosis Normal sinus rhythm MUSE ECG Diagnosis Left axis deviation MUSE ECG Diagnosis Moderate voltage criteria for LVH, may be normal variant ( R in aVL , Juan product ) MUSE ECG Diagnosis Nonspecific T wave abnormality MUSE ECG Diagnosis QTcB >= 480 msec MUSE ECG Diagnosis Abnormal ECG MUSE ECG Diagnosis MUSE ECG Diagnosis Confirmed by Jorge Alberto Louis ([id number]) on 07/16/2024 3:01:59 PM MUSE ECG 07/15/2024 8:56 PM EDT 07/16/2024 3:01 PM EDT us Victor M Deshpande APRN ECG ORDERABLES Final Result MUSE ECG * (ABNORMAL) Pain Management, Quantitative Urine Drug Testing (07/15/2024 8:33 PM EDT) [facility] Alprazolam <20 <20 ng/mL 07/17 7:08 AM EDT [facility] [place] Midazolam <20 <20 ng/mL 2024 7:08 AM EDT [facility] [place] Triazolam <20 <20 ng/mL 2024 7:08 AM EDT [facility] Alprazolam <10 <10 ng/mL 07/17/2024 7:08 AM EDT [facility] Aminoclonazepam <20 <20 ng/mL 5 7:08 AM EDT [facility] Amphetamine <50 <50 ng/mL 07/17/2024 7:08 AM EDT [facility] Benzoylecgonine <50 <50 ng/mL 7:08 AM EDT [facility] Buprenorphine <10 <10 ng/mL 07/17/2024 7:08 AM EDT [facility] Buprenorphine Glucuronide <50 <50 ng/mL 07/17/2024 7:08 AM EDT [facility] Butalbital <50 <50 ng/mL 07/17/2024 7:08 AM EDT [facility] 9 Carboxy THC <10 <10 ng/mL 07/17/2024 7:08 AM EDT [facility] 9 Carboxy THC Glucuronide <25 <25 ng/mL 07/17/2024 7:08 AM EDT [facility] Clonazepam <10 <10 ng/mL 07/17/2024 7:08 AM EDT [facility] Codeine <50 <50 ng/mL 07/17/2024 7:08 AM EDT [facility] Codeine Glucuronide <50 <50 ng/mL 07/17 7:08 AM EDT [facility] Cyclobenzaprine <50 <50 ng/mL 7:08 AM EDT [facility] Desmethyl Tramadol <50 <50 ng/mL 2024 7:08 AM EDT [facility] Diazepam <10 <10 ng/mL 07/17/2024 7:08 AM EDT [facility] EDDP - Methadone Metabolite <50 <50 ng/mL 07/17/2024 7:08 AM EDT [facility] Fentanyl <1 <1 ng/mL 07/17/2024 7:08 AM EDT [facility] Hydrocodone >1,000(H) <50 ng/mL 07/17/2024 7:08 AM EDT [facility] Hydromorphone <50 <50 ng/mL 07/17/2024 7:08 AM EDT [facility] Hydromorphone Glucuronide >1,000(H) <50 ng/mL 07/17/2024 7:08 AM EDT [facility] Lorazepam <20 <20 ng/mL 07/17/2024 7:08 AM EDT [facility] Lorazepam Glucuronide <50 <50 ng/mL 07/17/2024 7:08 AM EDT [facility] MDA <50 <50 ng/mL 07/17/2024 7:08 AM EDT [facility] MDMA <50 <50 ng/mL 07/17/2024 7:08 AM EDT [facility] Meperidine <50 <50 ng/mL 07/17/2024 7:08 AM EDT [facility] Methadone <50 <50 ng/mL 07/17/2024 7:08 AM EDT [facility] Methamphetamine <50 <50 ng/mL 7:08 AM EDT [facility] Methylphenidate <50 <50 ng/mL 7:08 AM EDT [facility] 6 Monoacetyl morphine <10 <10 ng/mL 07/17/2024 7:08 AM EDT [facility] Morphine <50 <50 ng/mL 07/17/2024 7:08 AM EDT [facility] Morphine Glucuronide <50 <50 ng/mL 07/08 7:08 AM EDT [facility] Naloxone <50 <50 ng/mL 07/17/2024 7:08 AM EDT [facility] Naloxone Glucuronide <50 <50 ng/mL 07/08 7:08 AM EDT [facility] Norbuprenorphine <10 <10 ng/mL 07/18/19 7:08 AM EDT [facility] Norbuprenorphine Glucuronide <50 <50 ng/mL 07/17/2024 7:08 AM EDT [facility] Nordiazepam <20 <20 ng/mL 07/17/2024 7:08 AM EDT [facility] Norfentanyl <2 <2 ng/mL 07/17/2024 7:08 AM EDT [facility] Normeperidine <50 <50 ng/mL 07/17/2024 7:08 AM EDT [facility] PCP Quant, Ur <50 <50 ng/mL 07/17/2024 7:08 AM EDT [facility] Phenobarbital <50 <50 ng/mL 07/17/2024 7:08 AM EDT [facility] Oxazepam <20 <20 ng/mL 07/17/2024 7:08 AM EDT [facility] Oxazepam Glucuronide <50 <50 ng/mL 07/08 7:08 AM EDT [facility] Oxycodone <50 <50 ng/mL 07/17/2024 7:08 AM EDT [facility] Oxymorphone <50 <50 ng/mL 07/17/2024 7:08 AM EDT [facility] Oxymorphone Glucuronide <50 <50 ng/mL 07/17/2024 7:08 AM EDT [facility] Secobarbital <50 <50 ng/mL 07/17/2024 7:08 AM EDT [facility] Tramadol <50 <50 ng/mL 07/17/2024 7:08 AM EDT [facility] Temazepam <20 <20 ng/mL 07/17/2024 7:08 AM EDT [facility] Temazepam Glucuronide <50 <50 ng/mL 07/17/2024 7:08 AM EDT [facility] Urine Urine specimen obtained by clean catch procedure / Unknown Non-blood Collection / Unknown 07/15/2024 8:33 PM EDT 07/15/2024 8:52 PM EDT Narrative [facility] - 07/17/2024 7:08 AM EDT This report is intended for use in clinical monitoring or management of patients. It is NOT intended for use in employment-related drug testing. For pain management, the absence of expected drug(s) and/or drug metabolite(s) may indicate non-compliance, inappropriate timing of specimen collection relative to drug administration, poor drug absorption, or limitations of testing. Interpretive questions should be directed to the laboratory. Test performed by LC-MS/MS at the [facility]. This test was developed and its performance characteristics determined by [facility]. It has not been cleared or approved by the FDA. The laboratory is regulated under CLIA as qualified to perform high-complexity testing. This test is used for clinical purposes. Victor M Deshpande APRN LAB URINE ORDERABLES Final Re sult [facility] [address] [place] [address] * (ABNORMAL) Comprehensive Urine Drug Screening, Qualitative Assay, >= 27 Drug Classes (58:33 PM EDT) Acetaminophen Positive(A) Negative 07/16/2024 11:24 PM EDT [facility] Alprazolam Negative Negative 07/16/2024 11:24 PM EDT [facility] Amantadine Negative Negative 07/16/2024 11:24 PM EDT [facility] Amitriptyline Negative Negative 07/16/2024 11:24 PM EDT [facility] Amphetamine Negative Negative 07/16/2024 11:24 PM EDT [facility] Atenolol Negative Negative 07/16/2024 11:24 PM EDT [facility] Benzoylecgonine Negative Negative 11:24 PM EDT [facility] Bisoprolol Negative Negative 07/16/2024 11:24 PM EDT [facility] Bupropion Negative Negative 07/16/2024 11:24 PM EDT [facility] Butalbital Negative Negative 07/16/2024 11:24 PM EDT [facility] Carbamazepine Negative Negative 07/16/2024 11:24 PM EDT [facility] Carisoprodol Negative Negative 07/16/2024 11:24 PM EDT [facility] Chlorpheniramine Negative Negative 07/17/19 11:24 PM EDT [facility] Citalopram Negative Negative 07/16/2024 11:24 PM EDT [facility] Clindamycin Negative Negative 07/16/2024 11:24 PM EDT [facility] Clonidine Negative Negative 07/16/2024 11:24 PM EDT [facility] Clopidogrel / Ticlopidine Negative Negative 07/16/2024 11:24 PM EDT [facility] Cocaethylene Negative Negative 07/16/2024 11:24 PM EDT [facility] Cocaine Negative Negative 07/16/2024 11:24 PM EDT [facility] Codeine Negative Negative 07/16/2024 11:24 PM EDT [facility] Cyclobenzaprine Negative Negative 11:24 PM EDT [facility] Desvenlafaxine Negative Negative 07/16/2024 11:24 PM EDT [facility] Dextromethorphan Negative Negative 07/17/19 11:24 PM EDT [facility] Diazepam Negative Negative 07/16/2024 11:24 PM EDT [facility] Diltiazem Negative Negative 07/16/2024 11:24 PM EDT [facility] Diphenhydramine Negative Negative 11:24 PM EDT [facility] Doxepine Negative Negative 07/16/2024 11:24 PM EDT [facility] Doxylamine Negative Negative 07/16/2024 11:24 PM EDT [facility] EDDP-Methadone metabolite Negative Negative 07/16/2024 11:24 PM EDT [facility] Fentanyl Negative Negative 07/16/2024 11:24 PM EDT [facility] Fluconazole Negative Negative 07/16/2024 11:24 PM EDT [facility] Fluoxetine Negative Negative 07/16/2024 11:24 PM EDT [facility] Guaifenesin Negative Negative 07/16/2024 11:24 PM EDT [facility] Haloperidol Negative Negative 07/16/2024 11:24 PM EDT [facility] Heroin/6-CHUNG Negative Negative 07/16/2024 11:24 PM EDT [facility] Hydrocodone Positive(A) Negative 07/16/2024 11:24 PM EDT [facility] Hydroxyzine / Cetirizine metabolite Negative Negative 07/16/2024 11:24 PM EDT [facility] Ibuprofen Negative Negative 07/16/2024 11:24 PM EDT [facility] Imipramine Negative Negative 07/16/2024 11:24 PM EDT [facility] Ketamine Negative Negative 07/16/2024 11:24 PM EDT [facility] Labetolol Negative Negative 07/16/2024 11:24 PM EDT [facility] Lamotrigine Negative Negative 07/16/2024 11:24 PM EDT [facility] Levetiracetam Negative Negative 07/16/2024 11:24 PM EDT [facility] Lidocaine Negative Negative 07/16/2024 11:24 PM EDT [facility] MDA Negative Negative 07/16/2024 11:24 PM EDT [facility] MDMA Negative Negative 07/16/2024 11:24 PM EDT [facility] Memantine Negative Negative 07/16/2024 11:24 PM EDT [facility] Meperidine Negative Negative 07/16/2024 11:24 PM EDT [facility] Meprobamate Negative Negative 07/16/2024 11:24 PM EDT [facility] Metaxalone Negative Negative 07/16/2024 11:24 PM EDT [facility] Methamphetamine Negative Negative 11:24 PM EDT [facility] Methocarbamol Negative Negative 07/16/2024 11:24 PM EDT [facility] Methylecgonine Negative Negative 07/16/2024 11:24 PM EDT [facility] Metoclopramide Negative Negative 07/16/2024 11:24 PM EDT [facility] Metoprolol Positive(A) Negative 07/16/2024 11:24 PM EDT [facility] Metronidazole Negative Negative 07/16/2024 11:24 PM EDT [facility] Midazolam Negative Negative 07/16/2024 11:24 PM EDT [facility] Midazolam Metabolite Negative Negative 07/16/2024 11:24 PM EDT [facility] Mirtazapine Negative Negative 07/16/2024 11:24 PM EDT [facility] Misc Test Result Positive(A) Negative 025 11:24 PM EDT [facility] Comment: Hydromorphone detected. Gabapentin detected. Hydroxyzine metabolite/Cetirizine metabolite detected. Naproxen Negative Negative 07/16/2024 11:24 PM EDT [facility] Nefazodone Negative Negative 07/16/2024 11:24 PM EDT [facility] Norfentanyl Negative Negative 07/16/2024 11:24 PM EDT [facility] Nortriptyline Negative Negative 07/16/2024 11:24 PM EDT [facility] Ordanstron Negative Negative 07/16/2024 11:24 PM EDT [facility] Oxcarbazepine Negative Negative 07/16/2024 11:24 PM EDT [facility] Oxycodone Negative Negative 07/16/2024 11:24 PM EDT [facility] Paroxethine Negative Negative 07/16/2024 11:24 PM EDT [facility] Phenobarbital Negative Negative 07/16/2024 11:24 PM EDT [facility] Phentermine Negative Negative 07/16/2024 11:24 PM EDT [facility] Phenytoin Negative Negative 07/16/2024 11:24 PM EDT [facility] Primidone Negative Negative 07/16/2024 11:24 PM EDT [facility] Promethazine Negative Negative 07/16/2024 11:24 PM EDT [facility] Propofol Negative Negative 07/16/2024 11:24 PM EDT [facility] Propranolol Negative Negative 07/16/2024 11:24 PM EDT [facility] Quetiapine Negative Negative 07/16/2024 11:24 PM EDT [facility] Quinine Negative Negative 07/16/2024 11:24 PM EDT [facility] Rantidine Negative Negative 07/16/2024 11:24 PM EDT [facility] Sertraline Negative Negative 07/16/2024 11:24 PM EDT [facility] Spironolactone Negative Negative 07/16/2024 11:24 PM EDT [facility] Tizanidine Negative Negative 07/16/2024 11:24 PM EDT [facility] Topiramate Negative Negative 07/16/2024 11:24 PM EDT [facility] Tramadol Negative Negative 07/16/2024 11:24 PM EDT [facility] Trazadone/ Trazadone metabolite Negative Negative 07/16/2024 11:24 PM EDT [facility] Trimethoprim Negative Negative 07/16/2024 11:24 PM EDT [facility] Valproic Acid Negative Negative 07/16/2024 11:24 PM EDT [facility] Venlafaxine Negative Negative 07/16/2024 11:24 PM EDT [facility] Verapamil Negative Negative 07/16/2024 11:24 PM EDT [facility] Zolpidem Negative Negative 07/16/2024 11:24 PM EDT [facility] Xylazine Negative Negative 07/16/2024 11:24 PM EDT [facility] Urine Urine specimen obtained by clean catch procedure / Unknown Non-blood Collection / Unknown 07/15/2024 8:33 PM EDT 07/15/2024 8:52 PM EDT us Victor M Deshpande APRN LAB URINE ORDERABLES Final Re sult Performing Organization Address City/[facility]/ZIP Co de Phone Number [facility] [address] [place] [address] * Streptococcus pneumoniae and Legionella Urinary Antigen (07/15/2024 8:33 PM EDT) Legionella pneumophila serogroup 1 Antigen Result (Urine) Negative Negative 07/15/2024 9:24 PM EDT [facility] Streptococcus pneumoniae Antigen Result (Urine) Negative Negative 07/15/2024 9:24 PM EDT [facility] Urine Urine specimen obtained by clean catch procedure / Unknown Non-blood Collection / Unknown 07/15/2024 8:33 PM EDT 07/15/2024 9:02 PM EDT us Victor M Deshpande APRN LAB MICROBIOLOGY - GENERAL OR DERABLES Final Result Performing Organization Address City/[facility]/ZIP Co de Phone Number [facility] [address] [place] [address] * Nasopharyngeal Respiratory Panel (07/15/2024 8:33 PM EDT) Nasopharyngeal Respiratory PCR Interpretation Not Detected for all analytes Not Detected for all analytes 07/15/2024 10:50 PM EDT [facility] Swab Nasopharyngeal structure / Unknown Non-blood Collection / Unknown 07/15/2024 8:33 PM EDT 07/15/2024 9:02 PM EDT Narrative [facility] - 07/15/2024 10:50 PM EDT This assay can detect Adenovirus, Coronavirus, Human Metapneumovirus, Human Rhino/Enterovirus, Influenza A, Influenza A H1, Influenza A H1 2009, Influenza A H3, Influenza B, Parainfluenza Virus 1, Parainfluenza Virus 2, Parainfluenza Virus 3, Parainfluenza Virus 4, Respiratory Syncytial Virus A, Respiratory Syncytial Virus B, Chlamydia pneumoniae, and Mycoplasma pneumoniae. Note: This assay does NOT detect SARS/CoV, novel Coronavirus 2019-nCoV, Bordetella pertussis or Bordetella parapertussis. Nasopharyngeal Respiratory PCR Panel is performed using the [employer] ePlex instrument. This test is FDA approved for use with Nasopharyngeal swabs only. This test is used for clinical purposes. It should not be regarded as investigational or for research. The [facility] is certified under the Clinical Laboratory Improvement Amendments of 1988 (CLIA-88) as qualified to perform high complexity clinical laboratory testing. Victor M Deshpande APRN LAB MICROBIOLOGY - GENERAL OR DERABLES Final Result [facility] [address] [place] [address] * Urine Kat Panel (07/15/2024 8:33 PM EDT) Extra Reflex urine culture not indicated 07/16/2024 5:02 AM EDT [facility] Comment: Previously prelim verified as Specimen evaluation in progress on 07/15/2024 at 2201 EDT. Previously prelim verified as Specimen evaluation in progress on 07/15/2024 at 2301 EDT. Previously prelim verified as Specimen evaluation in progress on 07/16/2024 at 0002 EDT. Previously prelim verified as Specimen evaluation in progress on 07/16/2024 at 0104 EDT. Previously prelim verified as Specimen evaluation in progress on 07/16/2024 at 0202 EDT. Previously prelim verified as Specimen evaluation in progress on 07/16/2024 at 0302 EDT. Previously prelim verified as Specimen evaluation in progress on 07/16/2024 at 0403 EDT. Urine Urine specimen obtained by clean catch procedure / Unknown Non-blood Collection / Unknown 07/15/2024 8:33 PM EDT 07/15/2024 8:52 PM EDT us Chava Stephenson MD LAB URINE ORDERABLES Final Result [facility] [address] [place] [address] * (ABNORMAL) Urinalysis with reflex microscopic (Culture NOT Included) (07/15/2024 8:33 PM EDT) Color, Urine Yellow LAB URINALYSIS - AUTOMATED METHOD 07/15/2024 8:50 PM EDT [facility] Clarity, Urine Clear LAB URINALYSIS - AUTOMATED METHOD 07/15/2024 8:50 PM EDT [facility] Spec [place], Urine 1.016 1.005 - 1.030 LAB URINALYSIS - AUTOMATED METHOD 07/15/2024 8:50 PM EDT [facility] pH, Urine 6.5 5.0 - 8.0 LAB URINALYSIS - AUTOMATED METHOD 07/15/2024 8:50 PM EDT [facility] Protein, Urine 30(A) Negative mg/dL LAB URINALYSIS - AUTOMATED METHOD 07/15/2024 8:50 PM EDT [facility] Glucose, Urine Negative Negative mg/dL LAB URINALYSIS - AUTOMATED METHOD 07/15/2024 8:50 PM EDT [facility] Ketones, Urine Negative Negative mg/dL LAB URINALYSIS - AUTOMATED METHOD 07/15/2024 8:50 PM EDT [facility] Blood, Urine Negative Negative LAB URINALYSIS - AUTOMATED METHOD 07/15/2024 8:50 PM EDT [facility] Bilirubin, Urine Negative Negative LAB URINALYSIS - AUTOMATED METHOD 07/15/2024 8:50 PM EDT [facility] Urobilinogen, Urine 1.0 0.2 to 1.0 mg/dL LAB URINALYSIS - AUTOMATED METHOD 07/15/2024 8:50 PM EDT [facility] Leukocytes, Urine Negative Negative LAB URINALYSIS - AUTOMATED METHOD 07/15/2024 8:50 PM EDT [facility] Nitrite, Urine Negative Negative LAB URINALYSIS - AUTOMATED METHOD 07/15/2024 8:50 PM EDT [facility] Urine Urine specimen obtained by clean catch procedure / Unknown Non-blood Collection / Unknown 07/15/2024 8:33 PM EDT 07/15/2024 8:47 PM EDT us Chava Stephenson MD LAB URINE ORDERABLES Final Result Performing Organization Address [facility]/ZIP Co de Phone Number [facility] [address] [place] [address] * (ABNORMAL) N-Terminal Probnp, Plasma (07/15/2024 7:49 PM EDT) N-Terminal, PROBNP, Plasma 933(H) 0 - 899 pg/mL 07/15/2024 9:09 PM EDT [facility] Blood Venous blood specimen / Unknown Venipuncture / Unknown 07/15/2024 7:49 PM EDT 07/15/2024 7:56 PM EDT us Victor M Deshpande APRN LAB BLOOD ORDERABLES Final Re sult [facility] [address] [place] [address] * (ABNORMAL) Blood gas panel, venous (07/15/2024 7:49 PM EDT) pH, Venous 7.45(H) 7.32 - 7.43 LAB HEMATOLOGY METHOD 07/15/2024 7:56 PM EDT [facility] pCO2, Venous 44 40 - 55 mmHg LAB HEMATOLOGY METHOD 07/15/2024 7:56 PM EDT [facility] pO2, Venous 51(H) 25 - 40 mmHg LAB HEMATOLOGY METHOD 07/15/2024 7:56 PM EDT [facility] SO2, Measured, Venous 87(H) 65 - 80 % LAB HEMATOLOGY METHOD 07/15/2024 7:56 PM EDT [facility] Base Excess, Venous 6.0(H) -2.0 - 3.0 mmol/L LAB HEMATOLOGY METHOD 07/15/2024 7:56 PM EDT [facility] Bicarbonate, Calculated, Venous 31(H) 22 - 26 mmol/L LAB HEMATOLOGY METHOD 07/15/2024 7:56 PM EDT [facility] Hematocrit, Whole Blood 31.3(L) 40.0 - 51.0 % LAB HEMATOLOGY METHOD 07/15/2024 7:56 PM EDT [facility] Sodium, Whole Blood 138 136 - 145 mmol/L LAB HEMATOLOGY METHOD 07/15/2024 7:56 PM EDT [facility] Potassium, Whole Blood 3.6 3.6 - 4.9 mmol/L LAB HEMATOLOGY METHOD 07/15/2024 7:56 PM EDT [facility] Chloride, Whole Blood 101 97 - 107 mmol/L LAB HEMATOLOGY METHOD 07/15/2024 7:56 PM EDT [facility] Glucose, Whole Blood 243(H) 74 - 99 mg/dL LAB HEMATOLOGY METHOD 07/15/2024 7:56 PM EDT [facility] Lactate, Venous, Whole Blood 0.7 0.5 - 2.2 mmol/L LAB HEMATOLOGY METHOD 07/15/2024 7:56 PM EDT [facility] Ionized Calcium, Whole Blood 4.6 4.6 - 5.1 mg/dL LAB HEMATOLOGY METHOD 07/15/2024 7:56 PM EDT [facility] Blood Venous blood specimen / Unknown Venipuncture / Unknown 07/15/2024 7:49 PM EDT 07/15/2024 7:54 PM EDT us Victor M Deshpande APRN LAB BLOOD ORDERABLES Final Re sult [facility] [address] [place] [address] * Blood Culture (Aerobic/Anaerobet Set) (07/15/2024 7:49 PM EDT) Culture No growth at day 5 07/20/2024 9:01 PM EDT [facility] Blood Venous blood specimen / Unknown Venipuncture / Unknown 07/15/2024 7:49 PM EDT 07/15/2024 8:07 PM EDT Victor M Deshpande APRN LAB MICROBIOLOGY - GENERAL OR DERABLES Final Result Performing Organization Address [facility] Co de Phone Number [facility] [address] [place] [address] * (ABNORMAL) Procalcitonin, Plasma (07/15/2024 7:49 PM EDT) [facility] Procalcitonin, Plasma 5.25(H) <0.09 ng/mL 07/15/2024 8:57 PM EDT [facility] Blood Venous blood specimen / Unknown Venipuncture / Unknown 07/15/2024 7:49 PM EDT 07/15/2024 7:56 PM EDT Narrative [facility] - 07/15/2024 8:57 PM EDT Procalcitonin concentrations in healthy individuals are <0.09 ng/mL. Published data support the following interpretive risk assessment: An elevated procalcitonin result does not always indicate sepsis. Various non-infectious conditions are known to increase procalcitonin. Results should be considered in the context of clinical symptoms and other laboratory tests. Procalcitonin >2.0 ng/mL: Concentrations >2.0 ng/mL on the first day of ICU admission are associated with a higher risk of progression to severe sepsis and/or septic shock. The change in PCT over time may help predict 28 day mortality risk. Please consult www.dnblqa-byu-doiwbdlonl.com for more information. Test performed at [facility]. us Victor M Deshpande APRN LAB BLOOD ORDERABLES Final Re sult Performing Organization Address [facility]/ZIP Co de Phone Number [facility] [address] [place] [address] * Blood Culture (Aerobic/Anaerobet Set) (07/15/2024 7:49 PM EDT) Culture No growth at day 5 07/20/2024 9:01 PM EDT [facility] Blood Venous blood specimen / Unknown Venipuncture / Unknown 07/15/2024 7:49 PM EDT 07/15/2024 8:07 PM EDT us Victor M Deshpande APRN LAB MICROBIOLOGY - GENERAL OR DERABLES Final Result Performing Organization Address [facility]/ZIP Co de Phone Number [facility] [address] [place] [address] * (ABNORMAL) Troponin T, High Sensitivity, 2 Hour, Plasma (07/15/2024 7:11 PM EDT) Troponin T, High Sensitivity, 2 Hour 48(H) <19 ng/L 07/15/2024 7:49 PM EDT [facility] Troponin Delta 7 <10 ng/L 07/15/2024 7:49 PM EDT [facility] Troponin Delta Interpretation Not Significant 07/15/2024 7:49 PM EDT [facility] Comment:Not Significant. No acute change in troponin observed between the baseline and 2 hour samples. Blood Venous blood specimen / Unknown Venipuncture / Unknown 07/15/2024 7:11 PM EDT 07/15/2024 7:21 PM EDT us Chava Stephenson MD LAB BLOOD ORDERABLES Final Result Performing Organization Address [facility] Co de Phone Number [facility] [address] [place] [address] * CT Face wo IV Contrast (07/15/2024 6:23 PM EDT) Anatomical Region Laterality Modality Facial bones Computed Tomogra phy Impressions 07/19/2024 8:38 AM EDT No acute intracranial hemorrhage or acute large territorial infarction. Age-appropriate cerebral atrophy with mild to moderate periventricular and deep white matter change, nonspecific, potentially sequela of chronic microvascular ischemic disease. No acute facial fracture. CRITICAL RESULT: No. COMMUNICATION: Per this written report. Drafted by De Grewal MD on 07/15/2024 6:22 PM Final report signed by De Grewal MD on 07/15/2024 6:29 PM Narrative 07/19/2024 8:38 AM EDT CLINICAL INDICATION: Polytrauma Patient TECHNIQUE: Axial CT images of the head were obtained without contrast administration. CT face without intravenous contrast. Coronal and sagittal reformatted images obtained. Total DLP (Dose-Length Product): 3621.63 mGy.cm. Please note: The reported value represents the total of one or more individual components during the CT acquisition on this date and at this time, and as such, the same value may appear in more than one CT report depending on the interpreting/reporting physicians. COMPARISON: Outside CT head 07/15/2024. MRI 03/11/2023. FINDINGS: Diagnostic Quality: Adequate. No acute intracranial hemorrhage or acute large territorial infarction. Few small foci of encephalomalacia left cerebellar hemisphere most compatible sequela of prior/chronic ischemic insults. No focal mass, mass effect, or midline shift. Age-appropriate cerebral atrophy with mild to moderate periventricular and deep white matter change, nonspecific, potentially sequela of chronic microvascular ischemic disease. Soft Tissues: No significant soft tissue swelling is present. Skull: No acute displaced calvarial fracture. Sinuses and Mastoids: Minimal paranasal sinus mucosal thickening. The mastoid air cells are clear. CT face: No acute facial fracture. Pterygoid plates intact. The orbits are intact. No retrobulbar hematoma. Procedure Note De Grewal MD - 07/19/2024 CLINICAL INDICATION: Polytrauma Patient TECHNIQUE: Axial CT images of the head were obtained without contrastadministration. CT face without intravenous contrast. Coronal and sagittal reformattedimages obtained. Total DLP (Dose-Length Product): 3621.63 mGy.cm. Please note: The reportedvalue represents the total of one or more individual components during theCT acquisition on this date and at this time, and as such, the same valuemay appear in more than one CT report depending on theinterpreting/reporting physicians. COMPARISON: Outside CT head 07/15/2024. MRI 03/11/2023. FINDINGS: Diagnostic Quality: Adequate. No acute intracranial hemorrhage or acute large territorial infarction.Few small foci of encephalomalacia left cerebellar hemisphere mostcompatible sequela of prior/chronic ischemic insults. No focal mass, masseffect, or midline shift. Age-appropriate cerebral atrophy with mild tomoderate periventricular and deep white matter change, nonspecific,potentially sequela of chronic microvascular ischemic disease. Soft Tissues: No significant soft tissue swelling is present. Skull: No acute displaced calvarial fracture. Sinuses and Mastoids: Minimal paranasal sinus mucosal thickening. Themastoid air cells are clear. CT face: No acute facial fracture. Pterygoid plates intact. The orbits are intact. No retrobulbar hematoma. IMPRESSION: No acute intracranial hemorrhage or acute large territorial infarction. Age-appropriate cerebral atrophy with mild to moderate periventricular anddeep white matter change, nonspecific, potentially sequela of chronicmicrovascular ischemic disease. No acute facial fracture. CRITICAL RESULT: No. COMMUNICATION: Per this written report. Drafted by De Grewal MD on 07/15/2024 6:22 PM Final report signed by De Grewal MD on 07/15/2024 6:29 PM us Chava Stephenson MD IMG CT PROCEDURES Final Res ult * CT Abdomen Pelvis wo IV Contrast (07/15/2024 5:56 PM EDT) Anatomical Region Laterality Modality Abdomen, Pelvis Computed Tomogra phy Impressions 07/15/2024 6:[address] chest: Left lower lobe consolidation and multifocal airspace opacities left upper lobe and right lower lobe concerning for multifocal pneumonia. Incidental D3 diverticulum measuring 3 cm. No acute abnormality within the abdomen and pelvis. No acute fracture or malalignment of the cervical, thoracic and lumbar spine. CRITICAL RESULT: No. COMMUNICATION: Per this written report. Drafted by Liz Khan MD on 07/15/2024 6:21 PM Final report signed by Liz Khan MD on 07/15/2024 6:37 PM Narrative 07/15/2024 6:37 PM EDT CLINICAL INDICATION: Abdominal trauma, blunt TECHNIQUE: Imaging of the chest abdomen and pelvis was performed, from chest through pubic symphysis, using spiral technique, without contrast administration. Reformatted images in the coronal, sagittal, and oblique planes were generated from the axial data set to facilitate diagnostic accuracy. In addition, 3D images were created and reviewed. Imaging of the entire cervical, thoracic, and lumbar spine was performed, using spiral technique, without contrast administration. Reformatted images in the coronal and sagittal planes were generated from the axial data set to facilitate diagnostic accuracy and/or surgical planning. Total DLP (Dose-Length Product): 3621.63 mGy.cm (accession [id number]), 3621.63 mGy.cm (accession [id number]), 3621.63 mGy.cm (accession [id number]), 3621.63 mGy.cm (accession [id number]), 3621.63 mGy.cm (accession [id number]). Please note: The reported value represents the total of one or more individual components during the CT acquisition on this date and at this time, and as such, the same value may appear in more than one CT report depending on the interpreting/reporting physicians. COMPARISON: September 01, 2023 FINDINGS: CT Chest: Aorta/Vessels: No acute traumatic aortic injury. No periaortic hematoma. Significant trivessel coronary artery atherosclerosis. Pleural/Pericardial Space: No pneumothorax. No pleural effusions. No pericardial effusion. Lymph Nodes: Multistation mediastinal nodes. For example aortic pulmonary window lymph node measures 1.1 cm. Pretracheal lymph nodes measure 1 cm Lungs: Left lower lobe consolidation. Airspace and interstitial opacities in the dependent left upper lobe and lingular. Right basilar atelectasis and right lower lobe peribronchial interstitial thickening. Some degree of honeycombing in the bilateral lung bases. Central airways are patent. Mediastinum: Otherwise unremarkable. Chest Wall: No chest wall hematoma or contusion. Bones: No acute fracture within the chest. CT Abdomen : Vessels: Significant atherosclerosis without aneurysm or dissection. Liver/Gallbladder/Biliary System: The liver demonstrates homogeneous enhancement. Gallbladder surgically absent. No intra- or extra-hepatic biliary ductal dilatation. Spleen: Punctate calcified granulomata. Pancreas: Atrophied pancreas. No pancreatic duct dilatation. Adrenals: The adrenals are morphologically unremarkable. Kidneys: The kidneys demonstrate symmetric nephrogram and excretion. Bilateral punctate stones. Exophytic cyst in the right upper pole measuring 2 cm. No hydronephrosis. Bowel/Mesentery: The lower esophagus and stomach are unremarkable. Incidental D2 diverticulum measuring 3.6 cm thick fluid/gas contents. The small bowel loops are not dilated. Moderate pancolonic stool burden. No pneumoperitoneum or intra- abdominal fluid collections. The appendix is not utilized. Lymph Nodes: No lymphadenopathy within the abdomen or pelvis. Fluid Survey: No free fluid in the abdomen. No free fluid in the pelvis. Pelvis: No pelvic masses. Unremarkable urinary bladder. Body Wall: Normal. Bones: Bilateral hip arthroplasties without hardware complications. Cervical Spine: Vertebrae: No acute fracture. Multilevel disc degenerative changes pronounced at C3-C6. Odontoid and atlantoaxial joints are intact. Chronic grade 1 anterolisthesis C2-C3. Alignment: Normal spinal alignment. Paraspinal Soft Tissues: No paraspinal hematoma. Lung Apices: No pneumothorax at the lung apices. Thoracic Spine: Vertebrae: No acute fracture. Indeterminate subcentimeter lucent lesion in T5 vertebral body. Diffuse osteopenia. Alignment: Normal spinal alignment. Paraspinal Soft Tissues: No paraspinal hematoma. Lumbar Spine: Vertebrae: No acute fracture. Grade 1 anterolisthesis L4-L5. Multilevel degenerative changes pronounced at L4-S1. Alignment: Normal spinal alignment. Paraspinal Soft Tissues: No paraspinal hematoma. Procedure Note Liz Khan MD - 07/15/2024 CLINICAL INDICATION: Abdominal trauma, blunt TECHNIQUE: Imaging of the chest abdomen and pelvis was performed, from chest throughpubic symphysis, using spiral technique, without contrast administration.Reformatted images in the coronal, sagittal, and oblique planes weregenerated from the axial data set to facilitate diagnostic accuracy. Inaddition, 3D images were created and reviewed. Imaging of the entire cervical, thoracic, and lumbar spine was performed,using spiral technique, without contrast administration. Reformattedimages in the coronal and sagittal planes were generated from the axialdata set to facilitate diagnostic accuracy and/or surgical planning. Total DLP (Dose-Length Product): 3621.63 mGy.cm (accession [id number]),3621.63 mGy.cm (accession [id number]), 3621.63 mGy.cm (accession [id number]),3621.63 mGy.cm (accession [id number]), 3621.63 mGy.cm (accession [id number]).Please note: The reported value represents the total of one or moreindividual components during the CT acquisition on this date and at thistime, and as such, the same value may appear in more than one CT reportdepending on the interpreting/reporting physicians. COMPARISON: September 01, 2023 FINDINGS: CT Chest: Aorta/Vessels: No acute traumatic aortic injury. No periaortic hematoma.Significant trivessel coronary artery atherosclerosis. Pleural/Pericardial Space: No pneumothorax. No pleural effusions. Nopericardial effusion. Lymph Nodes: Multistation mediastinal nodes. For example aortic pulmonarywindow lymph node measures 1.1 cm. Pretracheal lymph nodes measure 1 cm Lungs: Left lower lobe consolidation. Airspace and interstitial opacitiesin the dependent left upper lobe and lingular. Right basilar atelectasisand right lower lobe peribronchial interstitial thickening. Some degree ofhoneycombing in the bilateral lung bases. Central airways are patent. Mediastinum: Otherwise unremarkable. Chest Wall: No chest wall hematoma or contusion. Bones: No acute fracture within the chest. CT Abdomen : Vessels: Significant atherosclerosis without aneurysm or dissection. Liver/Gallbladder/Biliary System: The liver demonstrates homogeneousenhancement. Gallbladder surgically absent. No intra- or extra-hepaticbiliary ductal dilatation. Spleen: Punctate calcified granulomata. Pancreas: Atrophied pancreas. No pancreatic duct dilatation. Adrenals: The adrenals are morphologically unremarkable. Kidneys: The kidneys demonstrate symmetric nephrogram and excretion.Bilateral punctate stones. Exophytic cyst in the right upper polemeasuring 2 cm. No hydronephrosis. Bowel/Mesentery: The lower esophagus and stomach are unremarkable.Incidental D2 diverticulum measuring 3.6 cm thick fluid/gas contents. Thesmall bowel loops are not dilated. Moderate pancolonic stool burden. Nopneumoperitoneum or intra-abdominal fluid collections. The appendix is notutilized. Lymph Nodes: No lymphadenopathy within the abdomen or pelvis. Fluid Survey: No free fluid in the abdomen. No free fluid in the pelvis. Pelvis: No pelvic masses. Unremarkable urinary bladder. Body Wall: Normal. Bones: Bilateral hip arthroplasties without hardware complications. Cervical Spine: Vertebrae: No acute fracture. Multilevel disc degenerative changespronounced at C3-C6. Odontoid and atlantoaxial joints are intact. Chronicgrade 1 anterolisthesis C2-C3. Alignment: Normal spinal alignment. Paraspinal Soft Tissues: No paraspinal hematoma. Lung Apices: No pneumothorax at the lung apices. Thoracic Spine: Vertebrae: No acute fracture. Indeterminate subcentimeter lucent lesion inT5 vertebral body. Diffuse osteopenia. Alignment: Normal spinal alignment. Paraspinal Soft Tissues: No paraspinal hematoma. Lumbar Spine: Vertebrae: No acute fracture. Grade 1 anterolisthesis L4-L5. Multileveldegenerative changes pronounced at L4-S1. Alignment: Normal spinal alignment. Paraspinal Soft Tissues: No paraspinal hematoma. IMPRESSION: CT chest: Left lower lobe consolidation and multifocal airspace opacities left upperlobe and right lower lobe concerning for multifocal pneumonia. Incidental D3 diverticulum measuring 3 cm. No acute abnormality within theabdomen and pelvis. No acute fracture or malalignment of the cervical, thoracic and lumbarspine. CRITICAL RESULT: No. COMMUNICATION: Per this written report. Drafted by Liz Khan MD on 07/15/2024 6:21 PM Final report signed by Liz Khan MD on 07/15/2024 6:37 PM Chava Stephenson MD IMG CT PROCEDURES Final Res ult * CT Chest wo IV Contrast (07/15/2024 5:56 PM EDT) Anatomical Region Laterality Modality Chest Computed Tomogra phy Impressions 07/15/2024 6:[address] chest: Left lower lobe consolidation and multifocal airspace opacities left upper lobe and right lower lobe concerning for multifocal pneumonia. Incidental D3 diverticulum measuring 3 cm. No acute abnormality within the abdomen and pelvis. No acute fracture or malalignment of the cervical, thoracic and lumbar spine. CRITICAL RESULT: No. COMMUNICATION: Per this written report. Drafted by Liz Khan MD on 07/15/2024 6:21 PM Final report signed by Liz Khan MD on 07/15/2024 6:37 PM Narrative 07/15/2024 6:37 PM EDT CLINICAL INDICATION: Abdominal trauma, blunt TECHNIQUE: Imaging of the chest abdomen and pelvis was performed, from chest through pubic symphysis, using spiral technique, without contrast administration. Reformatted images in the coronal, sagittal, and oblique planes were generated from the axial data set to facilitate diagnostic accuracy. In addition, 3D images were created and reviewed. Imaging of the entire cervical, thoracic, and lumbar spine was performed, using spiral technique, without contrast administration. Reformatted images in the coronal and sagittal planes were generated from the axial data set to facilitate diagnostic accuracy and/or surgical planning. Total DLP (Dose-Length Product): 3621.63 mGy.cm (accession [id number]), 3621.63 mGy.cm (accession [id number]), 3621.63 mGy.cm (accession [id number]), 3621.63 mGy.cm (accession [id number]), 3621.63 mGy.cm (accession [id number]). Please note: The reported value represents the total of one or more individual components during the CT acquisition on this date and at this time, and as such, the same value may appear in more than one CT report depending on the interpreting/reporting physicians. COMPARISON: September 01, 2023 FINDINGS: CT Chest: Aorta/Vessels: No acute traumatic aortic injury. No periaortic hematoma. Significant trivessel coronary artery atherosclerosis. Pleural/Pericardial Space: No pneumothorax. No pleural effusions. No pericardial effusion. Lymph Nodes: Multistation mediastinal nodes. For example aortic pulmonary window lymph node measures 1.1 cm. Pretracheal lymph nodes measure 1 cm Lungs: Left lower lobe consolidation. Airspace and interstitial opacities in the dependent left upper lobe and lingular. Right basilar atelectasis and right lower lobe peribronchial interstitial thickening. Some degree of honeycombing in the bilateral lung bases. Central airways are patent. Mediastinum: Otherwise unremarkable. Chest Wall: No chest wall hematoma or contusion. Bones: No acute fracture within the chest. CT Abdomen : Vessels: Significant atherosclerosis without aneurysm or dissection. Liver/Gallbladder/Biliary System: The liver demonstrates homogeneous enhancement. Gallbladder surgically absent. No intra- or extra-hepatic biliary ductal dilatation. Spleen: Punctate calcified granulomata. Pancreas: Atrophied pancreas. No pancreatic duct dilatation. Adrenals: The adrenals are morphologically unremarkable. Kidneys: The kidneys demonstrate symmetric nephrogram and excretion. Bilateral punctate stones. Exophytic cyst in the right upper pole measuring 2 cm. No hydronephrosis. Bowel/Mesentery: The lower esophagus and stomach are unremarkable. Incidental D2 diverticulum measuring 3.6 cm thick fluid/gas contents. The small bowel loops are not dilated. Moderate pancolonic stool burden. No pneumoperitoneum or intra- abdominal fluid collections. The appendix is not utilized. Lymph Nodes: No lymphadenopathy within the abdomen or pelvis. Fluid Survey: No free fluid in the abdomen. No free fluid in the pelvis. Pelvis: No pelvic masses. Unremarkable urinary bladder. Body Wall: Normal. Bones: Bilateral hip arthroplasties without hardware complications. Cervical Spine: Vertebrae: No acute fracture. Multilevel disc degenerative changes pronounced at C3-C6. Odontoid and atlantoaxial joints are intact. Chronic grade 1 anterolisthesis C2-C3. Alignment: Normal spinal alignment. Paraspinal Soft Tissues: No paraspinal hematoma. Lung Apices: No pneumothorax at the lung apices. Thoracic Spine: Vertebrae: No acute fracture. Indeterminate subcentimeter lucent lesion in T5 vertebral body. Diffuse osteopenia. Alignment: Normal spinal alignment. Paraspinal Soft Tissues: No paraspinal hematoma. Lumbar Spine: Vertebrae: No acute fracture. Grade 1 anterolisthesis L4-L5. Multilevel degenerative changes pronounced at L4-S1. Alignment: Normal spinal alignment. Paraspinal Soft Tissues: No paraspinal hematoma. Procedure Note Liz Khan MD - 07/15/2024 CLINICAL INDICATION: Abdominal trauma, blunt TECHNIQUE: Imaging of the chest abdomen and pelvis was performed, from chest throughpubic symphysis, using spiral technique, without contrast administration.Reformatted images in the coronal, sagittal, and oblique planes weregenerated from the axial data set to facilitate diagnostic accuracy. Inaddition, 3D images were created and reviewed. Imaging of the entire cervical, thoracic, and lumbar spine was performed,using spiral technique, without contrast administration. Reformattedimages in the coronal and sagittal planes were generated from the axialdata set to facilitate diagnostic accuracy and/or surgical planning. Total DLP (Dose-Length Product): 3621.63 mGy.cm (accession [id number]),3621.63 mGy.cm (accession [id number]), 3621.63 mGy.cm (accession [id number]),3621.63 mGy.cm (accession [id number]), 3621.63 mGy.cm (accession [id number]).Please note: The reported value represents the total of one or moreindividual components during the CT acquisition on this date and at thistime, and as such, the same value may appear in more than one CT reportdepending on the interpreting/reporting physicians. COMPARISON: September 01, 2023 FINDINGS: CT Chest: Aorta/Vessels: No acute traumatic aortic injury. No periaortic hematoma.Significant trivessel coronary artery atherosclerosis. Pleural/Pericardial Space: No pneumothorax. No pleural effusions. Nopericardial effusion. Lymph Nodes: Multistation mediastinal nodes. For example aortic pulmonarywindow lymph node measures 1.1 cm. Pretracheal lymph nodes measure 1 cm Lungs: Left lower lobe consolidation. Airspace and interstitial opacitiesin the dependent left upper lobe and lingular. Right basilar atelectasisand right lower lobe peribronchial interstitial thickening. Some degree ofhoneycombing in the bilateral lung bases. Central airways are patent. Mediastinum: Otherwise unremarkable. Chest Wall: No chest wall hematoma or contusion. Bones: No acute fracture within the chest. CT Abdomen : Vessels: Significant atherosclerosis without aneurysm or dissection. Liver/Gallbladder/Biliary System: The liver demonstrates homogeneousenhancement. Gallbladder surgically absent. No intra- or extra-hepaticbiliary ductal dilatation. Spleen: Punctate calcified granulomata. Pancreas: Atrophied pancreas. No pancreatic duct dilatation. Adrenals: The adrenals are morphologically unremarkable. Kidneys: The kidneys demonstrate symmetric nephrogram and excretion.Bilateral punctate stones. Exophytic cyst in the right upper polemeasuring 2 cm. No hydronephrosis. Bowel/Mesentery: The lower esophagus and stomach are unremarkable.Incidental D2 diverticulum measuring 3.6 cm thick fluid/gas contents. Thesmall bowel loops are not dilated. Moderate pancolonic stool burden. Nopneumoperitoneum or intra-abdominal fluid collections. The appendix is notutilized. Lymph Nodes: No lymphadenopathy within the abdomen or pelvis. Fluid Survey: No free fluid in the abdomen. No free fluid in the pelvis. Pelvis: No pelvic masses. Unremarkable urinary bladder. Body Wall: Normal. Bones: Bilateral hip arthroplasties without hardware complications. Cervical Spine: Vertebrae: No acute fracture. Multilevel disc degenerative changespronounced at C3-C6. Odontoid and atlantoaxial joints are intact. Chronicgrade 1 anterolisthesis C2-C3. Alignment: Normal spinal alignment. Paraspinal Soft Tissues: No paraspinal hematoma. Lung Apices: No pneumothorax at the lung apices. Thoracic Spine: Vertebrae: No acute fracture. Indeterminate subcentimeter lucent lesion inT5 vertebral body. Diffuse osteopenia. Alignment: Normal spinal alignment. Paraspinal Soft Tissues: No paraspinal hematoma. Lumbar Spine: Vertebrae: No acute fracture. Grade 1 anterolisthesis L4-L5. Multileveldegenerative changes pronounced at L4-S1. Alignment: Normal spinal alignment. Paraspinal Soft Tissues: No paraspinal hematoma. IMPRESSION: CT chest: Left lower lobe consolidation and multifocal airspace opacities left upperlobe and right lower lobe concerning for multifocal pneumonia. Incidental D3 diverticulum measuring 3 cm. No acute abnormality within theabdomen and pelvis. No acute fracture or malalignment of the cervical, thoracic and lumbarspine. CRITICAL RESULT: No. COMMUNICATION: Per this written report. Drafted by Liz Khan MD on 07/15/2024 6:21 PM Final report signed by Liz Khan MD on 07/15/2024 6:37 PM Chava Stephenson MD IMG CT PROCEDURES Final Res ult * CT Head wo IV Contrast (07/15/2024 5:56 PM EDT) Anatomical Region Laterality Modality Head Computed Tomogra phy Impressions 07/15/2024 6:29 PM EDT No acute intracranial hemorrhage or acute large territorial infarction. Age-appropriate cerebral atrophy with mild to moderate periventricular and deep white matter change, nonspecific, potentially sequela of chronic microvascular ischemic disease. No acute facial fracture. CRITICAL RESULT: No. COMMUNICATION: Per this written report. Drafted by De Grewal MD on 07/15/2024 6:22 PM Final report signed by De Grewal MD on 07/15/2024 6:29 PM Narrative 07/15/2024 6:29 PM EDT CLINICAL INDICATION: Polytrauma Patient TECHNIQUE: Axial CT images of the head were obtained without contrast administration. CT face without intravenous contrast. Coronal and sagittal reformatted images obtained. Total DLP (Dose-Length Product): 3621.63 mGy.cm. Please note: The reported value represents the total of one or more individual components during the CT acquisition on this date and at this time, and as such, the same value may appear in more than one CT report depending on the interpreting/reporting physicians. COMPARISON: Outside CT head 07/15/2024. MRI 03/11/2023. FINDINGS: Diagnostic Quality: Adequate. No acute intracranial hemorrhage or acute large territorial infarction. Few small foci of encephalomalacia left cerebellar hemisphere most compatible sequela of prior/chronic ischemic insults. No focal mass, mass effect, or midline shift. Age-appropriate cerebral atrophy with mild to moderate periventricular and deep white matter change, nonspecific, potentially sequela of chronic microvascular ischemic disease. Soft Tissues: No significant soft tissue swelling is present. Skull: No acute displaced calvarial fracture. Sinuses and Mastoids: Minimal paranasal sinus mucosal thickening. The mastoid air cells are clear. CT face: No acute facial fracture. Pterygoid plates intact. The orbits are intact. No retrobulbar hematoma. Procedure Note De Grewal MD - 07/19/2024 CLINICAL INDICATION: Polytrauma Patient TECHNIQUE: Axial CT images of the head were obtained without contrastadministration. CT face without intravenous contrast. Coronal and sagittal reformattedimages obtained. Total DLP (Dose-Length Product): 3621.63 mGy.cm. Please note: The reportedvalue represents the total of one or more individual components during theCT acquisition on this date and at this time, and as such, the same valuemay appear in more than one CT report depending on theinterpreting/reporting physicians. COMPARISON: Outside CT head 07/15/2024. MRI 03/11/2023. FINDINGS: Diagnostic Quality: Adequate. No acute intracranial hemorrhage or acute large territorial infarction.Few small foci of encephalomalacia left cerebellar hemisphere mostcompatible sequela of prior/chronic ischemic insults. No focal mass, masseffect, or midline shift. Age-appropriate cerebral atrophy with mild tomoderate periventricular and deep white matter change, nonspecific,potentially sequela of chronic microvascular ischemic disease. Soft Tissues: No significant soft tissue swelling is present. Skull: No acute displaced calvarial fracture. Sinuses and Mastoids: Minimal paranasal sinus mucosal thickening. Themastoid air cells are clear. CT face: No acute facial fracture. Pterygoid plates intact. The orbits are intact. No retrobulbar hematoma. IMPRESSION: No acute intracranial hemorrhage or acute large territorial infarction. Age-appropriate cerebral atrophy with mild to moderate periventricular anddeep white matter change, nonspecific, potentially sequela of chronicmicrovascular ischemic disease. No acute facial fracture. CRITICAL RESULT: No. COMMUNICATION: Per this written report. Drafted by De Grewal MD on 07/15/2024 6:22 PM Final report signed by De Grewal MD on 07/15/2024 6:29 PM us Chava Stephenson MD IMG CT PROCEDURES Final Res ult * CT Cervical Spine wo IV Contrast (07/15/2024 5:56 PM EDT) Anatomical Region Laterality Modality Spine, C-spine Computed Tomogra phy Impressions 07/15/2024 6:[address] chest: Left lower lobe consolidation and multifocal airspace opacities left upper lobe and right lower lobe concerning for multifocal pneumonia. Incidental D3 diverticulum measuring 3 cm. No acute abnormality within the abdomen and pelvis. No acute fracture or malalignment of the cervical, thoracic and lumbar spine. CRITICAL RESULT: No. COMMUNICATION: Per this written report. Drafted by Liz Khan MD on 07/15/2024 6:21 PM Final report signed by Liz Khan MD on 07/15/2024 6:37 PM Narrative 07/15/2024 6:37 PM EDT CLINICAL INDICATION: Abdominal trauma, blunt TECHNIQUE: Imaging of the chest abdomen and pelvis was performed, from chest through pubic symphysis, using spiral technique, without contrast administration. Reformatted images in the coronal, sagittal, and oblique planes were generated from the axial data set to facilitate diagnostic accuracy. In addition, 3D images were created and reviewed. Imaging of the entire cervical, thoracic, and lumbar spine was performed, using spiral technique, without contrast administration. Reformatted images in the coronal and sagittal planes were generated from the axial data set to facilitate diagnostic accuracy and/or surgical planning. Total DLP (Dose-Length Product): 3621.63 mGy.cm (accession [id number]), 3621.63 mGy.cm (accession [id number]), 3621.63 mGy.cm (accession [id number]), 3621.63 mGy.cm (accession [id number]), 3621.63 mGy.cm (accession [id number]). Please note: The reported value represents the total of one or more individual components during the CT acquisition on this date and at this time, and as such, the same value may appear in more than one CT report depending on the interpreting/reporting physicians. COMPARISON: September 01, 2023 FINDINGS: CT Chest: Aorta/Vessels: No acute traumatic aortic injury. No periaortic hematoma. Significant trivessel coronary artery atherosclerosis. Pleural/Pericardial Space: No pneumothorax. No pleural effusions. No pericardial effusion. Lymph Nodes: Multistation mediastinal nodes. For example aortic pulmonary window lymph node measures 1.1 cm. Pretracheal lymph nodes measure 1 cm Lungs: Left lower lobe consolidation. Airspace and interstitial opacities in the dependent left upper lobe and lingular. Right basilar atelectasis and right lower lobe peribronchial interstitial thickening. Some degree of honeycombing in the bilateral lung bases. Central airways are patent. Mediastinum: Otherwise unremarkable. Chest Wall: No chest wall hematoma or contusion. Bones: No acute fracture within the chest. CT Abdomen : Vessels: Significant atherosclerosis without aneurysm or dissection. Liver/Gallbladder/Biliary System: The liver demonstrates homogeneous enhancement. Gallbladder surgically absent. No intra- or extra-hepatic biliary ductal dilatation. Spleen: Punctate calcified granulomata. Pancreas: Atrophied pancreas. No pancreatic duct dilatation. Adrenals: The adrenals are morphologically unremarkable. Kidneys: The kidneys demonstrate symmetric nephrogram and excretion. Bilateral punctate stones. Exophytic cyst in the right upper pole measuring 2 cm. No hydronephrosis. Bowel/Mesentery: The lower esophagus and stomach are unremarkable. Incidental D2 diverticulum measuring 3.6 cm thick fluid/gas contents. The small bowel loops are not dilated. Moderate pancolonic stool burden. No pneumoperitoneum or intra- abdominal fluid collections. The appendix is not utilized. Lymph Nodes: No lymphadenopathy within the abdomen or pelvis. Fluid Survey: No free fluid in the abdomen. No free fluid in the pelvis. Pelvis: No pelvic masses. Unremarkable urinary bladder. Body Wall: Normal. Bones: Bilateral hip arthroplasties without hardware complications. Cervical Spine: Vertebrae: No acute fracture. Multilevel disc degenerative changes pronounced at C3-C6. Odontoid and atlantoaxial joints are intact. Chronic grade 1 anterolisthesis C2-C3. Alignment: Normal spinal alignment. Paraspinal Soft Tissues: No paraspinal hematoma. Lung Apices: No pneumothorax at the lung apices. Thoracic Spine: Vertebrae: No acute fracture. Indeterminate subcentimeter lucent lesion in T5 vertebral body. Diffuse osteopenia. Alignment: Normal spinal alignment. Paraspinal Soft Tissues: No paraspinal hematoma. Lumbar Spine: Vertebrae: No acute fracture. Grade 1 anterolisthesis L4-L5. Multilevel degenerative changes pronounced at L4-S1. Alignment: Normal spinal alignment. Paraspinal Soft Tissues: No paraspinal hematoma. Procedure Note Liz Khan MD - 07/15/2024 CLINICAL INDICATION: Abdominal trauma, blunt TECHNIQUE: Imaging of the chest abdomen and pelvis was performed, from chest throughpubic symphysis, using spiral technique, without contrast administration.Reformatted images in the coronal, sagittal, and oblique planes weregenerated from the axial data set to facilitate diagnostic accuracy. Inaddition, 3D images were created and reviewed. Imaging of the entire cervical, thoracic, and lumbar spine was performed,using spiral technique, without contrast administration. Reformattedimages in the coronal and sagittal planes were generated from the axialdata set to facilitate diagnostic accuracy and/or surgical planning. Total DLP (Dose-Length Product): 3621.63 mGy.cm (accession [id number]),3621.63 mGy.cm (accession [id number]), 3621.63 mGy.cm (accession [id number]),3621.63 mGy.cm (accession [id number]), 3621.63 mGy.cm (accession [id number]).Please note: The reported value represents the total of one or moreindividual components during the CT acquisition on this date and at thistime, and as such, the same value may appear in more than one CT reportdepending on the interpreting/reporting physicians. COMPARISON: September 01, 2023 FINDINGS: CT Chest: Aorta/Vessels: No acute traumatic aortic injury. No periaortic hematoma.Significant trivessel coronary artery atherosclerosis. Pleural/Pericardial Space: No pneumothorax. No pleural effusions. Nopericardial effusion. Lymph Nodes: Multistation mediastinal nodes. For example aortic pulmonarywindow lymph node measures 1.1 cm. Pretracheal lymph nodes measure 1 cm Lungs: Left lower lobe consolidation. Airspace and interstitial opacitiesin the dependent left upper lobe and lingular. Right basilar atelectasisand right lower lobe peribronchial interstitial thickening. Some degree ofhoneycombing in the bilateral lung bases. Central airways are patent. Mediastinum: Otherwise unremarkable. Chest Wall: No chest wall hematoma or contusion. Bones: No acute fracture within the chest. CT Abdomen : Vessels: Significant atherosclerosis without aneurysm or dissection. Liver/Gallbladder/Biliary System: The liver demonstrates homogeneousenhancement. Gallbladder surgically absent. No intra- or extra-hepaticbiliary ductal dilatation. Spleen: Punctate calcified granulomata. Pancreas: Atrophied pancreas. No pancreatic duct dilatation. Adrenals: The adrenals are morphologically unremarkable. Kidneys: The kidneys demonstrate symmetric nephrogram and excretion.Bilateral punctate stones. Exophytic cyst in the right upper polemeasuring 2 cm. No hydronephrosis. Bowel/Mesentery: The lower esophagus and stomach are unremarkable.Incidental D2 diverticulum measuring 3.6 cm thick fluid/gas contents. Thesmall bowel loops are not dilated. Moderate pancolonic stool burden. Nopneumoperitoneum or intra-abdominal fluid collections. The appendix is notutilized. Lymph Nodes: No lymphadenopathy within the abdomen or pelvis. Fluid Survey: No free fluid in the abdomen. No free fluid in the pelvis. Pelvis: No pelvic masses. Unremarkable urinary bladder. Body Wall: Normal. Bones: Bilateral hip arthroplasties without hardware complications. Cervical Spine: Vertebrae: No acute fracture. Multilevel disc degenerative changespronounced at C3-C6. Odontoid and atlantoaxial joints are intact. Chronicgrade 1 anterolisthesis C2-C3. Alignment: Normal spinal alignment. Paraspinal Soft Tissues: No paraspinal hematoma. Lung Apices: No pneumothorax at the lung apices. Thoracic Spine: Vertebrae: No acute fracture. Indeterminate subcentimeter lucent lesion inT5 vertebral body. Diffuse osteopenia. Alignment: Normal spinal alignment. Paraspinal Soft Tissues: No paraspinal hematoma. Lumbar Spine: Vertebrae: No acute fracture. Grade 1 anterolisthesis L4-L5. Multileveldegenerative changes pronounced at L4-S1. Alignment: Normal spinal alignment. Paraspinal Soft Tissues: No paraspinal hematoma. IMPRESSION: CT chest: Left lower lobe consolidation and multifocal airspace opacities left upperlobe and right lower lobe concerning for multifocal pneumonia. Incidental D3 diverticulum measuring 3 cm. No acute abnormality within theabdomen and pelvis. No acute fracture or malalignment of the cervical, thoracic and lumbarspine. CRITICAL RESULT: No. COMMUNICATION: Per this written report. Drafted by Liz Khan MD on 07/15/2024 6:21 PM Final report signed by Liz Khan MD on 07/15/2024 6:37 PM us Chava Stephenson MD IMG CT PROCEDURES Final Res ult * CT Thoracic Spine wo IV Contrast (07/15/2024 5:56 PM EDT) Anatomical Region Laterality Modality Spine, T-spine Computed Tomogra phy Impressions 07/15/2024 6:[address] chest: Left lower lobe consolidation and multifocal airspace opacities left upper lobe and right lower lobe concerning for multifocal pneumonia. Incidental D3 diverticulum measuring 3 cm. No acute abnormality within the abdomen and pelvis. No acute fracture or malalignment of the cervical, thoracic and lumbar spine. CRITICAL RESULT: No. COMMUNICATION: Per this written report. Drafted by Liz Khan MD on 07/15/2024 6:21 PM Final report signed by Liz Khan MD on 07/15/2024 6:37 PM Narrative 07/15/2024 6:37 PM EDT CLINICAL INDICATION: Abdominal trauma, blunt TECHNIQUE: Imaging of the chest abdomen and pelvis was performed, from chest through pubic symphysis, using spiral technique, without contrast administration. Reformatted images in the coronal, sagittal, and oblique planes were generated from the axial data set to facilitate diagnostic accuracy. In addition, 3D images were created and reviewed. Imaging of the entire cervical, thoracic, and lumbar spine was performed, using spiral technique, without contrast administration. Reformatted images in the coronal and sagittal planes were generated from the axial data set to facilitate diagnostic accuracy and/or surgical planning. Total DLP (Dose-Length Product): 3621.63 mGy.cm (accession [id number]), 3621.63 mGy.cm (accession [id number]), 3621.63 mGy.cm (accession [id number]), 3621.63 mGy.cm (accession [id number]), 3621.63 mGy.cm (accession [id number]). Please note: The reported value represents the total of one or more individual components during the CT acquisition on this date and at this time, and as such, the same value may appear in more than one CT report depending on the interpreting/reporting physicians. COMPARISON: September 01, 2023 FINDINGS: CT Chest: Aorta/Vessels: No acute traumatic aortic injury. No periaortic hematoma. Significant trivessel coronary artery atherosclerosis. Pleural/Pericardial Space: No pneumothorax. No pleural effusions. No pericardial effusion. Lymph Nodes: Multistation mediastinal nodes. For example aortic pulmonary window lymph node measures 1.1 cm. Pretracheal lymph nodes measure 1 cm Lungs: Left lower lobe consolidation. Airspace and interstitial opacities in the dependent left upper lobe and lingular. Right basilar atelectasis and right lower lobe peribronchial interstitial thickening. Some degree of honeycombing in the bilateral lung bases. Central airways are patent. Mediastinum: Otherwise unremarkable. Chest Wall: No chest wall hematoma or contusion. Bones: No acute fracture within the chest. CT Abdomen : Vessels: Significant atherosclerosis without aneurysm or dissection. Liver/Gallbladder/Biliary System: The liver demonstrates homogeneous enhancement. Gallbladder surgically absent. No intra- or extra-hepatic biliary ductal dilatation. Spleen: Punctate calcified granulomata. Pancreas: Atrophied pancreas. No pancreatic duct dilatation. Adrenals: The adrenals are morphologically unremarkable. Kidneys: The kidneys demonstrate symmetric nephrogram and excretion. Bilateral punctate stones. Exophytic cyst in the right upper pole measuring 2 cm. No hydronephrosis. Bowel/Mesentery: The lower esophagus and stomach are unremarkable. Incidental D2 diverticulum measuring 3.6 cm thick fluid/gas contents. The small bowel loops are not dilated. Moderate pancolonic stool burden. No pneumoperitoneum or intra- abdominal fluid collections. The appendix is not utilized. Lymph Nodes: No lymphadenopathy within the abdomen or pelvis. Fluid Survey: No free fluid in the abdomen. No free fluid in the pelvis. Pelvis: No pelvic masses. Unremarkable urinary bladder. Body Wall: Normal. Bones: Bilateral hip arthroplasties without hardware complications. Cervical Spine: Vertebrae: No acute fracture. Multilevel disc degenerative changes pronounced at C3-C6. Odontoid and atlantoaxial joints are intact. Chronic grade 1 anterolisthesis C2-C3. Alignment: Normal spinal alignment. Paraspinal Soft Tissues: No paraspinal hematoma. Lung Apices: No pneumothorax at the lung apices. Thoracic Spine: Vertebrae: No acute fracture. Indeterminate subcentimeter lucent lesion in T5 vertebral body. Diffuse osteopenia. Alignment: Normal spinal alignment. Paraspinal Soft Tissues: No paraspinal hematoma. Lumbar Spine: Vertebrae: No acute fracture. Grade 1 anterolisthesis L4-L5. Multilevel degenerative changes pronounced at L4-S1. Alignment: Normal spinal alignment. Paraspinal Soft Tissues: No paraspinal hematoma. Procedure Note Liz Khan MD - 07/15/2024 CLINICAL INDICATION: Abdominal trauma, blunt TECHNIQUE: Imaging of the chest abdomen and pelvis was performed, from chest throughpubic symphysis, using spiral technique, without contrast administration.Reformatted images in the coronal, sagittal, and oblique planes weregenerated from the axial data set to facilitate diagnostic accuracy. Inaddition, 3D images were created and reviewed. Imaging of the entire cervical, thoracic, and lumbar spine was performed,using spiral technique, without contrast administration. Reformattedimages in the coronal and sagittal planes were generated from the axialdata set to facilitate diagnostic accuracy and/or surgical planning. Total DLP (Dose-Length Product): 3621.63 mGy.cm (accession [id number]),3621.63 mGy.cm (accession [id number]), 3621.63 mGy.cm (accession [id number]),3621.63 mGy.cm (accession [id number]), 3621.63 mGy.cm (accession [id number]).Please note: The reported value represents the total of one or moreindividual components during the CT acquisition on this date and at thistime, and as such, the same value may appear in more than one CT reportdepending on the interpreting/reporting physicians. COMPARISON: September 01, 2023 FINDINGS: CT Chest: Aorta/Vessels: No acute traumatic aortic injury. No periaortic hematoma.Significant trivessel coronary artery atherosclerosis. Pleural/Pericardial Space: No pneumothorax. No pleural effusions. Nopericardial effusion. Lymph Nodes: Multistation mediastinal nodes. For example aortic pulmonarywindow lymph node measures 1.1 cm. Pretracheal lymph nodes measure 1 cm Lungs: Left lower lobe consolidation. Airspace and interstitial opacitiesin the dependent left upper lobe and lingular. Right basilar atelectasisand right lower lobe peribronchial interstitial thickening. Some degree ofhoneycombing in the bilateral lung bases. Central airways are patent. Mediastinum: Otherwise unremarkable. Chest Wall: No chest wall hematoma or contusion. Bones: No acute fracture within the chest. CT Abdomen : Vessels: Significant atherosclerosis without aneurysm or dissection. Liver/Gallbladder/Biliary System: The liver demonstrates homogeneousenhancement. Gallbladder surgically absent. No intra- or extra-hepaticbiliary ductal dilatation. Spleen: Punctate calcified granulomata. Pancreas: Atrophied pancreas. No pancreatic duct dilatation. Adrenals: The adrenals are morphologically unremarkable. Kidneys: The kidneys demonstrate symmetric nephrogram and excretion.Bilateral punctate stones. Exophytic cyst in the right upper polemeasuring 2 cm. No hydronephrosis. Bowel/Mesentery: The lower esophagus and stomach are unremarkable.Incidental D2 diverticulum measuring 3.6 cm thick fluid/gas contents. Thesmall bowel loops are not dilated. Moderate pancolonic stool burden. Nopneumoperitoneum or intra-abdominal fluid collections. The appendix is notutilized. Lymph Nodes: No lymphadenopathy within the abdomen or pelvis. Fluid Survey: No free fluid in the abdomen. No free fluid in the pelvis. Pelvis: No pelvic masses. Unremarkable urinary bladder. Body Wall: Normal. Bones: Bilateral hip arthroplasties without hardware complications. Cervical Spine: Vertebrae: No acute fracture. Multilevel disc degenerative changespronounced at C3-C6. Odontoid and atlantoaxial joints are intact. Chronicgrade 1 anterolisthesis C2-C3. Alignment: Normal spinal alignment. Paraspinal Soft Tissues: No paraspinal hematoma. Lung Apices: No pneumothorax at the lung apices. Thoracic Spine: Vertebrae: No acute fracture. Indeterminate subcentimeter lucent lesion inT5 vertebral body. Diffuse osteopenia. Alignment: Normal spinal alignment. Paraspinal Soft Tissues: No paraspinal hematoma. Lumbar Spine: Vertebrae: No acute fracture. Grade 1 anterolisthesis L4-L5. Multileveldegenerative changes pronounced at L4-S1. Alignment: Normal spinal alignment. Paraspinal Soft Tissues: No paraspinal hematoma. IMPRESSION: CT chest: Left lower lobe consolidation and multifocal airspace opacities left upperlobe and right lower lobe concerning for multifocal pneumonia. Incidental D3 diverticulum measuring 3 cm. No acute abnormality within theabdomen and pelvis. No acute fracture or malalignment of the cervical, thoracic and lumbarspine. CRITICAL RESULT: No. COMMUNICATION: Per this written report. Drafted by Liz Khan MD on 07/15/2024 6:21 PM Final report signed by Liz Khan MD on 07/15/2024 6:37 PM us Chava Stephenson MD IMG CT PROCEDURES Final Res ult * CT Lumbar Spine wo IV Contrast (07/15/2024 5:56 PM EDT) Anatomical Region Laterality Modality Spine, L-spine Computed Tomogra phy Impressions 07/15/2024 6:[address] chest: Left lower lobe consolidation and multifocal airspace opacities left upper lobe and right lower lobe concerning for multifocal pneumonia. Incidental D3 diverticulum measuring 3 cm. No acute abnormality within the abdomen and pelvis. No acute fracture or malalignment of the cervical, thoracic and lumbar spine. CRITICAL RESULT: No. COMMUNICATION: Per this written report. Drafted by Liz Khan MD on 07/15/2024 6:21 PM Final report signed by Liz Khan MD on 07/15/2024 6:37 PM Narrative 07/15/2024 6:37 PM EDT CLINICAL INDICATION: Abdominal trauma, blunt TECHNIQUE: Imaging of the chest abdomen and pelvis was performed, from chest through pubic symphysis, using spiral technique, without contrast administration. Reformatted images in the coronal, sagittal, and oblique planes were generated from the axial data set to facilitate diagnostic accuracy. In addition, 3D images were created and reviewed. Imaging of the entire cervical, thoracic, and lumbar spine was performed, using spiral technique, without contrast administration. Reformatted images in the coronal and sagittal planes were generated from the axial data set to facilitate diagnostic accuracy and/or surgical planning. Total DLP (Dose-Length Product): 3621.63 mGy.cm (accession [id number]), 3621.63 mGy.cm (accession [id number]), 3621.63 mGy.cm (accession [id number]), 3621.63 mGy.cm (accession [id number]), 3621.63 mGy.cm (accession [id number]). Please note: The reported value represents the total of one or more individual components during the CT acquisition on this date and at this time, and as such, the same value may appear in more than one CT report depending on the interpreting/reporting physicians. COMPARISON: September 01, 2023 FINDINGS: CT Chest: Aorta/Vessels: No acute traumatic aortic injury. No periaortic hematoma. Significant trivessel coronary artery atherosclerosis. Pleural/Pericardial Space: No pneumothorax. No pleural effusions. No pericardial effusion. Lymph Nodes: Multistation mediastinal nodes. For example aortic pulmonary window lymph node measures 1.1 cm. Pretracheal lymph nodes measure 1 cm Lungs: Left lower lobe consolidation. Airspace and interstitial opacities in the dependent left upper lobe and lingular. Right basilar atelectasis and right lower lobe peribronchial interstitial thickening. Some degree of honeycombing in the bilateral lung bases. Central airways are patent. Mediastinum: Otherwise unremarkable. Chest Wall: No chest wall hematoma or contusion. Bones: No acute fracture within the chest. CT Abdomen : Vessels: Significant atherosclerosis without aneurysm or dissection. Liver/Gallbladder/Biliary System: The liver demonstrates homogeneous enhancement. Gallbladder surgically absent. No intra- or extra-hepatic biliary ductal dilatation. Spleen: Punctate calcified granulomata. Pancreas: Atrophied pancreas. No pancreatic duct dilatation. Adrenals: The adrenals are morphologically unremarkable. Kidneys: The kidneys demonstrate symmetric nephrogram and excretion. Bilateral punctate stones. Exophytic cyst in the right upper pole measuring 2 cm. No hydronephrosis. Bowel/Mesentery: The lower esophagus and stomach are unremarkable. Incidental D2 diverticulum measuring 3.6 cm thick fluid/gas contents. The small bowel loops are not dilated. Moderate pancolonic stool burden. No pneumoperitoneum or intra- abdominal fluid collections. The appendix is not utilized. Lymph Nodes: No lymphadenopathy within the abdomen or pelvis. Fluid Survey: No free fluid in the abdomen. No free fluid in the pelvis. Pelvis: No pelvic masses. Unremarkable urinary bladder. Body Wall: Normal. Bones: Bilateral hip arthroplasties without hardware complications. Cervical Spine: Vertebrae: No acute fracture. Multilevel disc degenerative changes pronounced at C3-C6. Odontoid and atlantoaxial joints are intact. Chronic grade 1 anterolisthesis C2-C3. Alignment: Normal spinal alignment. Paraspinal Soft Tissues: No paraspinal hematoma. Lung Apices: No pneumothorax at the lung apices. Thoracic Spine: Vertebrae: No acute fracture. Indeterminate subcentimeter lucent lesion in T5 vertebral body. Diffuse osteopenia. Alignment: Normal spinal alignment. Paraspinal Soft Tissues: No paraspinal hematoma. Lumbar Spine: Vertebrae: No acute fracture. Grade 1 anterolisthesis L4-L5. Multilevel degenerative changes pronounced at L4-S1. Alignment: Normal spinal alignment. Paraspinal Soft Tissues: No paraspinal hematoma. Procedure Note Liz Khan MD - 07/15/2024 CLINICAL INDICATION: Abdominal trauma, blunt TECHNIQUE: Imaging of the chest abdomen and pelvis was performed, from chest throughpubic symphysis, using spiral technique, without contrast administration.Reformatted images in the coronal, sagittal, and oblique planes weregenerated from the axial data set to facilitate diagnostic accuracy. Inaddition, 3D images were created and reviewed. Imaging of the entire cervical, thoracic, and lumbar spine was performed,using spiral technique, without contrast administration. Reformattedimages in the coronal and sagittal planes were generated from the axialdata set to facilitate diagnostic accuracy and/or surgical planning. Total DLP (Dose-Length Product): 3621.63 mGy.cm (accession [id number]),3621.63 mGy.cm (accession [id number]), 3621.63 mGy.cm (accession [id number]),3621.63 mGy.cm (accession [id number]), 3621.63 mGy.cm (accession [id number]).Please note: The reported value represents the total of one or moreindividual components during the CT acquisition on this date and at thistime, and as such, the same value may appear in more than one CT reportdepending on the interpreting/reporting physicians. COMPARISON: September 01, 2023 FINDINGS: CT Chest: Aorta/Vessels: No acute traumatic aortic injury. No periaortic hematoma.Significant trivessel coronary artery atherosclerosis. Pleural/Pericardial Space: No pneumothorax. No pleural effusions. Nopericardial effusion. Lymph Nodes: Multistation mediastinal nodes. For example aortic pulmonarywindow lymph node measures 1.1 cm. Pretracheal lymph nodes measure 1 cm Lungs: Left lower lobe consolidation. Airspace and interstitial opacitiesin the dependent left upper lobe and lingular. Right basilar atelectasisand right lower lobe peribronchial interstitial thickening. Some degree ofhoneycombing in the bilateral lung bases. Central airways are patent. Mediastinum: Otherwise unremarkable. Chest Wall: No chest wall hematoma or contusion. Bones: No acute fracture within the chest. CT Abdomen : Vessels: Significant atherosclerosis without aneurysm or dissection. Liver/Gallbladder/Biliary System: The liver demonstrates homogeneousenhancement. Gallbladder surgically absent. No intra- or extra-hepaticbiliary ductal dilatation. Spleen: Punctate calcified granulomata. Pancreas: Atrophied pancreas. No pancreatic duct dilatation. Adrenals: The adrenals are morphologically unremarkable. Kidneys: The kidneys demonstrate symmetric nephrogram and excretion.Bilateral punctate stones. Exophytic cyst in the right upper polemeasuring 2 cm. No hydronephrosis. Bowel/Mesentery: The lower esophagus and stomach are unremarkable.Incidental D2 diverticulum measuring 3.6 cm thick fluid/gas contents. Thesmall bowel loops are not dilated. Moderate pancolonic stool burden. Nopneumoperitoneum or intra-abdominal fluid collections. The appendix is notutilized. Lymph Nodes: No lymphadenopathy within the abdomen or pelvis. Fluid Survey: No free fluid in the abdomen. No free fluid in the pelvis. Pelvis: No pelvic masses. Unremarkable urinary bladder. Body Wall: Normal. Bones: Bilateral hip arthroplasties without hardware complications. Cervical Spine: Vertebrae: No acute fracture. Multilevel disc degenerative changespronounced at C3-C6. Odontoid and atlantoaxial joints are intact. Chronicgrade 1 anterolisthesis C2-C3. Alignment: Normal spinal alignment. Paraspinal Soft Tissues: No paraspinal hematoma. Lung Apices: No pneumothorax at the lung apices. Thoracic Spine: Vertebrae: No acute fracture. Indeterminate subcentimeter lucent lesion inT5 vertebral body. Diffuse osteopenia. Alignment: Normal spinal alignment. Paraspinal Soft Tissues: No paraspinal hematoma. Lumbar Spine: Vertebrae: No acute fracture. Grade 1 anterolisthesis L4-L5. Multileveldegenerative changes pronounced at L4-S1. Alignment: Normal spinal alignment. Paraspinal Soft Tissues: No paraspinal hematoma. IMPRESSION: CT chest: Left lower lobe consolidation and multifocal airspace opacities left upperlobe and right lower lobe concerning for multifocal pneumonia. Incidental D3 diverticulum measuring 3 cm. No acute abnormality within theabdomen and pelvis. No acute fracture or malalignment of the cervical, thoracic and lumbarspine. CRITICAL RESULT: No. COMMUNICATION: Per this written report. Drafted by Liz Khan MD on 07/15/2024 6:21 PM Final report signed by Liz Khan MD on 07/15/2024 6:37 PM us Chava Stephenson MD IMG CT PROCEDURES Final Res ult * XR Knee Left 3 Views (07/15/2024 5:41 PM EDT) Anatomical Region Laterality Modality Lower Extremities, Knee Left Digital Radiography Impressions 07/15/2024 5:53 PM EDT Left lower extremity: Prior left hip arthroplasty without hardware complications. Remote fracture of the greater trochanter with callus. No acute osseous abnormality in the left hip, femur, knee, tibia-fibula and ankle. Right knee: No acute osseous abnormality. CRITICAL RESULT: No. COMMUNICATION: Per this written report. Drafted by Liz Khan MD on 07/15/2024 5:46 PM Final report signed by Liz Khan MD on 07/15/2024 5:53 PM Narrative 07/15/2024 5:53 PM EDT CLINICAL INDICATION: fall, pain TECHNIQUE: XR ANKLE RIGHT 3+ VIEWS, XR KNEE LEFT 3 VIEWS, XR FEMUR LEFT 2+ VIEWS, XR HIP LEFT 2 OR 3 VIEWS, XR KNEE RIGHT 3 VIEWS, XR TIBIA FIBULA RIGHT 2+ VIEWS COMPARISON: CT abdomen September 02, 2023. FINDINGS: Left hip: Prior left hip arthroplasty without hardware complications. No acute fracture or dislocation. Redemonstrated remote fracture of the greater trochanter with callus. Left femur: No acute fracture dislocation. No abnormal osseous lesion. No obvious soft tissue abnormality. Left knee: Mild tricompartmental osteoarthrosis, chondrocalcinosis. No acute fracture dislocation. No effusion. Tibia fibula: No acute fracture dislocation. No abnormal osseous lesion. No obvious soft tissue abnormality. Diffuse foreleg soft tissue. Left ankle: No fracture, subluxation or dislocation is identified. Ankle mortise is intact and symmetric. The talar dome shows no osseous abnormalities. Bony mineralization is within normal limits. Right knee: Prior total knee arthroplasty without periprosthetic fracture or hardware complications. No significant effusion. Vascular calcifications. Procedure Note Liz Khan MD - 07/15/2024 CLINICAL INDICATION: fall, pain TECHNIQUE: XR ANKLE RIGHT 3+ VIEWS, XR KNEE LEFT 3 VIEWS, XR FEMUR LEFT 2+ VIEWS, XRHIP LEFT 2 OR 3 VIEWS, XR KNEE RIGHT 3 VIEWS, XR TIBIA FIBULA RIGHT 2+VIEWS COMPARISON: CT abdomen September 02, 2023. FINDINGS: Left hip: Prior left hip arthroplasty without hardware complications. Noacute fracture or dislocation. Redemonstrated remote fracture of thegreater trochanter with callus. Left femur: No acute fracture dislocation. No abnormal osseous lesion. Noobvious soft tissue abnormality. Left knee: Mild tricompartmental osteoarthrosis, chondrocalcinosis. Noacute fracture dislocation. No effusion. Tibia fibula: No acute fracture dislocation. No abnormal osseous lesion.No obvious soft tissue abnormality. Diffuse foreleg soft tissue. Left ankle: No fracture, subluxation or dislocation is identified. Anklemortise is intact and symmetric. The talar dome shows no osseousabnormalities. Bony mineralization is within normal limits. Right knee: Prior total knee arthroplasty without periprosthetic fractureor hardware complications. No significant effusion. Vascularcalcifications. IMPRESSION: Left lower extremity: Prior left hip arthroplasty without hardwarecomplications. Remote fracture of the greater trochanter with callus. Noacute osseous abnormality in the left hip, femur, knee, tibia-fibula andankle. Right knee: No acute osseous abnormality. CRITICAL RESULT: No. COMMUNICATION: Per this written report. Drafted by Liz Khan MD on 07/15/2024 5:46 PM Final report signed by Liz Khan MD on 07/15/2024 5:53 PM us Chava Stephenson MD IMG XR PROCEDURES Final Res ult * XR Femur Left 2+ Views (07/15/2024 5:41 PM EDT) Anatomical Region Laterality Modality Lower Extremities, Femur Left Digital Radiography Impressions 07/15/2024 5:53 PM EDT Left lower extremity: Prior left hip arthroplasty without hardware complications. Remote fracture of the greater trochanter with callus. No acute osseous abnormality in the left hip, femur, knee, tibia-fibula and ankle. Right knee: No acute osseous abnormality. CRITICAL RESULT: No. COMMUNICATION: Per this written report. Drafted by Liz Khan MD on 07/15/2024 5:46 PM Final report signed by Liz Khan MD on 07/15/2024 5:53 PM Narrative 07/15/2024 5:53 PM EDT CLINICAL INDICATION: fall, pain TECHNIQUE: XR ANKLE RIGHT 3+ VIEWS, XR KNEE LEFT 3 VIEWS, XR FEMUR LEFT 2+ VIEWS, XR HIP LEFT 2 OR 3 VIEWS, XR KNEE RIGHT 3 VIEWS, XR TIBIA FIBULA RIGHT 2+ VIEWS COMPARISON: CT abdomen September 02, 2023. FINDINGS: Left hip: Prior left hip arthroplasty without hardware complications. No acute fracture or dislocation. Redemonstrated remote fracture of the greater trochanter with callus. Left femur: No acute fracture dislocation. No abnormal osseous lesion. No obvious soft tissue abnormality. Left knee: Mild tricompartmental osteoarthrosis, chondrocalcinosis. No acute fracture dislocation. No effusion. Tibia fibula: No acute fracture dislocation. No abnormal osseous lesion. No obvious soft tissue abnormality. Diffuse foreleg soft tissue. Left ankle: No fracture, subluxation or dislocation is identified. Ankle mortise is intact and symmetric. The talar dome shows no osseous abnormalities. Bony mineralization is within normal limits. Right knee: Prior total knee arthroplasty without periprosthetic fracture or hardware complications. No significant effusion. Vascular calcifications. Procedure Note Liz Khan MD - 07/15/2024 CLINICAL INDICATION: fall, pain TECHNIQUE: XR ANKLE RIGHT 3+ VIEWS, XR KNEE LEFT 3 VIEWS, XR FEMUR LEFT 2+ VIEWS, XRHIP LEFT 2 OR 3 VIEWS, XR KNEE RIGHT 3 VIEWS, XR TIBIA FIBULA RIGHT 2+VIEWS COMPARISON: CT abdomen September 02, 2023. FINDINGS: Left hip: Prior left hip arthroplasty without hardware complications. Noacute fracture or dislocation. Redemonstrated remote fracture of thegreater trochanter with callus. Left femur: No acute fracture dislocation. No abnormal osseous lesion. Noobvious soft tissue abnormality. Left knee: Mild tricompartmental osteoarthrosis, chondrocalcinosis. Noacute fracture dislocation. No effusion. Tibia fibula: No acute fracture dislocation. No abnormal osseous lesion.No obvious soft tissue abnormality. Diffuse foreleg soft tissue. Left ankle: No fracture, subluxation or dislocation is identified. Anklemortise is intact and symmetric. The talar dome shows no osseousabnormalities. Bony mineralization is within normal limits. Right knee: Prior total knee arthroplasty without periprosthetic fractureor hardware complications. No significant effusion. Vascularcalcifications. IMPRESSION: Left lower extremity: Prior left hip arthroplasty without hardwarecomplications. Remote fracture of the greater trochanter with callus. Noacute osseous abnormality in the left hip, femur, knee, tibia-fibula andankle. Right knee: No acute osseous abnormality. CRITICAL RESULT: No. COMMUNICATION: Per this written report. Drafted by Liz Khan MD on 07/15/2024 5:46 PM Final report signed by Liz Khan MD on 07/15/2024 5:53 PM Chava Stephenson MD IMG XR PROCEDURES Final Res ult * XR Hip Left 2 or 3 Views Including Pelvis (07/15/2024 5:41 PM EDT) Anatomical Region Laterality Modality Lower Extremities, Hip Left Digital R adiography Impressions 07/15/2024 5:53 PM EDT Left lower extremity: Prior left hip arthroplasty without hardware complications. Remote fracture of the greater trochanter with callus. No acute osseous abnormality in the left hip, femur, knee, tibia-fibula and ankle. Right knee: No acute osseous abnormality. CRITICAL RESULT: No. COMMUNICATION: Per this written report. Drafted by Liz Khan MD on 07/15/2024 5:46 PM Final report signed by Liz Khan MD on 07/15/2024 5:53 PM Narrative 07/15/2024 5:53 PM EDT CLINICAL INDICATION: fall, pain TECHNIQUE: XR ANKLE RIGHT 3+ VIEWS, XR KNEE LEFT 3 VIEWS, XR FEMUR LEFT 2+ VIEWS, XR HIP LEFT 2 OR 3 VIEWS, XR KNEE RIGHT 3 VIEWS, XR TIBIA FIBULA RIGHT 2+ VIEWS COMPARISON: CT abdomen September 02, 2023. FINDINGS: Left hip: Prior left hip arthroplasty without hardware complications. No acute fracture or dislocation. Redemonstrated remote fracture of the greater trochanter with callus. Left femur: No acute fracture dislocation. No abnormal osseous lesion. No obvious soft tissue abnormality. Left knee: Mild tricompartmental osteoarthrosis, chondrocalcinosis. No acute fracture dislocation. No effusion. Tibia fibula: No acute fracture dislocation. No abnormal osseous lesion. No obvious soft tissue abnormality. Diffuse foreleg soft tissue. Left ankle: No fracture, subluxation or dislocation is identified. Ankle mortise is intact and symmetric. The talar dome shows no osseous abnormalities. Bony mineralization is within normal limits. Right knee: Prior total knee arthroplasty without periprosthetic fracture or hardware complications. No significant effusion. Vascular calcifications. Procedure Note Liz Khan MD - 07/15/2024 CLINICAL INDICATION: fall, pain TECHNIQUE: XR ANKLE RIGHT 3+ VIEWS, XR KNEE LEFT 3 VIEWS, XR FEMUR LEFT 2+ VIEWS, XRHIP LEFT 2 OR 3 VIEWS, XR KNEE RIGHT 3 VIEWS, XR TIBIA FIBULA RIGHT 2+VIEWS COMPARISON: CT abdomen September 02, 2023. FINDINGS: Left hip: Prior left hip arthroplasty without hardware complications. Noacute fracture or dislocation. Redemonstrated remote fracture of thegreater trochanter with callus. Left femur: No acute fracture dislocation. No abnormal osseous lesion. Noobvious soft tissue abnormality. Left knee: Mild tricompartmental osteoarthrosis, chondrocalcinosis. Noacute fracture dislocation. No effusion. Tibia fibula: No acute fracture dislocation. No abnormal osseous lesion.No obvious soft tissue abnormality. Diffuse foreleg soft tissue. Left ankle: No fracture, subluxation or dislocation is identified. Anklemortise is intact and symmetric. The talar dome shows no osseousabnormalities. Bony mineralization is within normal limits. Right knee: Prior total knee arthroplasty without periprosthetic fractureor hardware complications. No significant effusion. Vascularcalcifications. IMPRESSION: Left lower extremity: Prior left hip arthroplasty without hardwarecomplications. Remote fracture of the greater trochanter with callus. Noacute osseous abnormality in the left hip, femur, knee, tibia-fibula andankle. Right knee: No acute osseous abnormality. CRITICAL RESULT: No. COMMUNICATION: Per this written report. Drafted by Liz Khan MD on 07/15/2024 5:46 PM Final report signed by Liz Khan MD on 07/15/2024 5:53 PM Chava Stephenson MD IMG XR PROCEDURES Final Res ult * XR Knee Right 3 + Views (07/15/2024 5:41 PM EDT) Anatomical Region Laterality Modality Lower Extremities, Knee Right Digital Radiography Impressions 07/15/2024 5:53 PM EDT Left lower extremity: Prior left hip arthroplasty without hardware complications. Remote fracture of the greater trochanter with callus. No acute osseous abnormality in the left hip, femur, knee, tibia-fibula and ankle. Right knee: No acute osseous abnormality. CRITICAL RESULT: No. COMMUNICATION: Per this written report. Drafted by Liz Khan MD on 07/15/2024 5:46 PM Final report signed by Liz Khan MD on 07/15/2024 5:53 PM Narrative 07/15/2024 5:53 PM EDT CLINICAL INDICATION: fall, pain TECHNIQUE: XR ANKLE RIGHT 3+ VIEWS, XR KNEE LEFT 3 VIEWS, XR FEMUR LEFT 2+ VIEWS, XR HIP LEFT 2 OR 3 VIEWS, XR KNEE RIGHT 3 VIEWS, XR TIBIA FIBULA RIGHT 2+ VIEWS COMPARISON: CT abdomen September 02, 2023. FINDINGS: Left hip: Prior left hip arthroplasty without hardware complications. No acute fracture or dislocation. Redemonstrated remote fracture of the greater trochanter with callus. Left femur: No acute fracture dislocation. No abnormal osseous lesion. No obvious soft tissue abnormality. Left knee: Mild tricompartmental osteoarthrosis, chondrocalcinosis. No acute fracture dislocation. No effusion. Tibia fibula: No acute fracture dislocation. No abnormal osseous lesion. No obvious soft tissue abnormality. Diffuse foreleg soft tissue. Left ankle: No fracture, subluxation or dislocation is identified. Ankle mortise is intact and symmetric. The talar dome shows no osseous abnormalities. Bony mineralization is within normal limits. Right knee: Prior total knee arthroplasty without periprosthetic fracture or hardware complications. No significant effusion. Vascular calcifications. Procedure Note Liz Khan MD - 07/15/2024 CLINICAL INDICATION: fall, pain TECHNIQUE: XR ANKLE RIGHT 3+ VIEWS, XR KNEE LEFT 3 VIEWS, XR FEMUR LEFT 2+ VIEWS, XRHIP LEFT 2 OR 3 VIEWS, XR KNEE RIGHT 3 VIEWS, XR TIBIA FIBULA RIGHT 2+VIEWS COMPARISON: CT abdomen September 02, 2023. FINDINGS: Left hip: Prior left hip arthroplasty without hardware complications. Noacute fracture or dislocation. Redemonstrated remote fracture of thegreater trochanter with callus. Left femur: No acute fracture dislocation. No abnormal osseous lesion. Noobvious soft tissue abnormality. Left knee: Mild tricompartmental osteoarthrosis, chondrocalcinosis. Noacute fracture dislocation. No effusion. Tibia fibula: No acute fracture dislocation. No abnormal osseous lesion.No obvious soft tissue abnormality. Diffuse foreleg soft tissue. Left ankle: No fracture, subluxation or dislocation is identified. Anklemortise is intact and symmetric. The talar dome shows no osseousabnormalities. Bony mineralization is within normal limits. Right knee: Prior total knee arthroplasty without periprosthetic fractureor hardware complications. No significant effusion. Vascularcalcifications. IMPRESSION: Left lower extremity: Prior left hip arthroplasty without hardwarecomplications. Remote fracture of the greater trochanter with callus. Noacute osseous abnormality in the left hip, femur, knee, tibia-fibula andankle. Right knee: No acute osseous abnormality. CRITICAL RESULT: No. COMMUNICATION: Per this written report. Drafted by Liz Khan MD on 07/15/2024 5:46 PM Final report signed by Liz Khan MD on 07/15/2024 5:53 PM Chava Stephenson MD IMG XR PROCEDURES Final Res ult * XR Tibia Fibula Right 2+ Views (07/15/2024 5:41 PM EDT) Anatomical Region Laterality Modality Lower Extremities, Lower Leg Right Dig ital Radiography Impressions 07/15/2024 5:53 PM EDT Left lower extremity: Prior left hip arthroplasty without hardware complications. Remote fracture of the greater trochanter with callus. No acute osseous abnormality in the left hip, femur, knee, tibia-fibula and ankle. Right knee: No acute osseous abnormality. CRITICAL RESULT: No. COMMUNICATION: Per this written report. Drafted by Liz Khan MD on 07/15/2024 5:46 PM Final report signed by Liz Khan MD on 07/15/2024 5:53 PM Narrative 07/15/2024 5:53 PM EDT CLINICAL INDICATION: fall, pain TECHNIQUE: XR ANKLE RIGHT 3+ VIEWS, XR KNEE LEFT 3 VIEWS, XR FEMUR LEFT 2+ VIEWS, XR HIP LEFT 2 OR 3 VIEWS, XR KNEE RIGHT 3 VIEWS, XR TIBIA FIBULA RIGHT 2+ VIEWS COMPARISON: CT abdomen September 02, 2023. FINDINGS: Left hip: Prior left hip arthroplasty without hardware complications. No acute fracture or dislocation. Redemonstrated remote fracture of the greater trochanter with callus. Left femur: No acute fracture dislocation. No abnormal osseous lesion. No obvious soft tissue abnormality. Left knee: Mild tricompartmental osteoarthrosis, chondrocalcinosis. No acute fracture dislocation. No effusion. Tibia fibula: No acute fracture dislocation. No abnormal osseous lesion. No obvious soft tissue abnormality. Diffuse foreleg soft tissue. Left ankle: No fracture, subluxation or dislocation is identified. Ankle mortise is intact and symmetric. The talar dome shows no osseous abnormalities. Bony mineralization is within normal limits. Right knee: Prior total knee arthroplasty without periprosthetic fracture or hardware complications. No significant effusion. Vascular calcifications. Procedure Note Liz Khan MD - 07/15/2024 CLINICAL INDICATION: fall, pain TECHNIQUE: XR ANKLE RIGHT 3+ VIEWS, XR KNEE LEFT 3 VIEWS, XR FEMUR LEFT 2+ VIEWS, XRHIP LEFT 2 OR 3 VIEWS, XR KNEE RIGHT 3 VIEWS, XR TIBIA FIBULA RIGHT 2+VIEWS COMPARISON: CT abdomen September 02, 2023. FINDINGS: Left hip: Prior left hip arthroplasty without hardware complications. Noacute fracture or dislocation. Redemonstrated remote fracture of thegreater trochanter with callus. Left femur: No acute fracture dislocation. No abnormal osseous lesion. Noobvious soft tissue abnormality. Left knee: Mild tricompartmental osteoarthrosis, chondrocalcinosis. Noacute fracture dislocation. No effusion. Tibia fibula: No acute fracture dislocation. No abnormal osseous lesion.No obvious soft tissue abnormality. Diffuse foreleg soft tissue. Left ankle: No fracture, subluxation or dislocation is identified. Anklemortise is intact and symmetric. The talar dome shows no osseousabnormalities. Bony mineralization is within normal limits. Right knee: Prior total knee arthroplasty without periprosthetic fractureor hardware complications. No significant effusion. Vascularcalcifications. IMPRESSION: Left lower extremity: Prior left hip arthroplasty without hardwarecomplications. Remote fracture of the greater trochanter with callus. Noacute osseous abnormality in the left hip, femur, knee, tibia-fibula andankle. Right knee: No acute osseous abnormality. CRITICAL RESULT: No. COMMUNICATION: Per this written report. Drafted by Liz Khan MD on 07/15/2024 5:46 PM Final report signed by Liz Khan MD on 07/15/2024 5:53 PM us Chava Stephenson MD IMG XR PROCEDURES Final Res ult * XR Ankle Right 3+ Views (07/15/2024 5:41 PM EDT) Anatomical Region Laterality Modality Lower Extremities, Ankle Right Digital Radiography Impressions 07/15/2024 5:53 PM EDT Left lower extremity: Prior left hip arthroplasty without hardware complications. Remote fracture of the greater trochanter with callus. No acute osseous abnormality in the left hip, femur, knee, tibia-fibula and ankle. Right knee: No acute osseous abnormality. CRITICAL RESULT: No. COMMUNICATION: Per this written report. Drafted by Liz Khan MD on 07/15/2024 5:46 PM Final report signed by Liz Khan MD on 07/15/2024 5:53 PM Narrative 07/15/2024 5:53 PM EDT CLINICAL INDICATION: fall, pain TECHNIQUE: XR ANKLE RIGHT 3+ VIEWS, XR KNEE LEFT 3 VIEWS, XR FEMUR LEFT 2+ VIEWS, XR HIP LEFT 2 OR 3 VIEWS, XR KNEE RIGHT 3 VIEWS, XR TIBIA FIBULA RIGHT 2+ VIEWS COMPARISON: CT abdomen September 02, 2023. FINDINGS: Left hip: Prior left hip arthroplasty without hardware complications. No acute fracture or dislocation. Redemonstrated remote fracture of the greater trochanter with callus. Left femur: No acute fracture dislocation. No abnormal osseous lesion. No obvious soft tissue abnormality. Left knee: Mild tricompartmental osteoarthrosis, chondrocalcinosis. No acute fracture dislocation. No effusion. Tibia fibula: No acute fracture dislocation. No abnormal osseous lesion. No obvious soft tissue abnormality. Diffuse foreleg soft tissue. Left ankle: No fracture, subluxation or dislocation is identified. Ankle mortise is intact and symmetric. The talar dome shows no osseous abnormalities. Bony mineralization is within normal limits. Right knee: Prior total knee arthroplasty without periprosthetic fracture or hardware complications. No significant effusion. Vascular calcifications. Procedure Note Lzi Khan MD - 07/15/2024 CLINICAL INDICATION: fall, pain TECHNIQUE: XR ANKLE RIGHT 3+ VIEWS, XR KNEE LEFT 3 VIEWS, XR FEMUR LEFT 2+ VIEWS, XRHIP LEFT 2 OR 3 VIEWS, XR KNEE RIGHT 3 VIEWS, XR TIBIA FIBULA RIGHT 2+VIEWS COMPARISON: CT abdomen September 02, 2023. FINDINGS: Left hip: Prior left hip arthroplasty without hardware complications. Noacute fracture or dislocation. Redemonstrated remote fracture of thegreater trochanter with callus. Left femur: No acute fracture dislocation. No abnormal osseous lesion. Noobvious soft tissue abnormality. Left knee: Mild tricompartmental osteoarthrosis, chondrocalcinosis. Noacute fracture dislocation. No effusion. Tibia fibula: No acute fracture dislocation. No abnormal osseous lesion.No obvious soft tissue abnormality. Diffuse foreleg soft tissue. Left ankle: No fracture, subluxation or dislocation is identified. Anklemortise is intact and symmetric. The talar dome shows no osseousabnormalities. Bony mineralization is within normal limits. Right knee: Prior total knee arthroplasty without periprosthetic fractureor hardware complications. No significant effusion. Vascularcalcifications. IMPRESSION: Left lower extremity: Prior left hip arthroplasty without hardwarecomplications. Remote fracture of the greater trochanter with callus. Noacute osseous abnormality in the left hip, femur, knee, tibia-fibula andankle. Right knee: No acute osseous abnormality. CRITICAL RESULT: No. COMMUNICATION: Per this written report. Drafted by Liz Khan MD on 07/15/2024 5:46 PM Final report signed by Liz Khan MD on 07/15/2024 5:53 PM us Chava Stephenson MD IMG XR PROCEDURES Final Res ult * PT-INR (07/15/2024 5:03 PM EDT) Prothrombin Time 14.3 12.0 - 14.3 sec 07/15/2024 5:19 PM EDT [facility] INR 1.1 0.9 - 1.1 07/15/2024 5:19 PM EDT [facility] Blood Venous blood specimen / Unknown Venipuncture / Unknown 07/15/2024 5:03 PM EDT 07/15/2024 5:06 PM EDT Narrative [facility] - 07/15/2024 5:19 PM EDT OPTIMAL INR RANGES FOR PATIENT ON ORAL ANTICOAGULANT THERAPY Prevention of venous thromboembolism INR 2.0 to 3.0 In patients with heart disease: Atrial fibrillation INR 2.0 to 3.0 Valvular heart disease INR 2.0 to 3.0 Tissue heart valves INR 2.0 to 3.0 Mechanical prosthetic valves INR 2.5 to 3.5 Prevention of recurrent ND INR 2.5 to 3.5 us Chava Stephenson MD LAB BLOOD ORDERABLES Final Result [facility] [address] [place] [address] * (ABNORMAL) CBC w/diff (07/15/2024 5:03 PM EDT) WBC Count 9.39 3.70 - 10.30 10*3/uL LAB HEMATOLOGY METHOD 07/15/2024 5:09 PM EDT [facility] RBC Count 3.49(L) 4.60 - 6.10 10*6/uL LAB HEMATOLOGY METHOD 07/15/2024 5:09 PM EDT [facility] HGB 9.9(L) 13.7 - 17.5 g/dL LAB HEMATOLOGY METHOD 07/15/2024 5:09 PM EDT [facility] HCT 30.7(L) 40.0 - 51.0 % LAB HEMATOLOGY METHOD 07/15/2024 5:09 PM EDT [facility] Platelet Count 114(L) 155 - 369 10*3/uL LAB HEMATOLOGY METHOD 07/15/2024 5:09 PM EDT [facility] MCV 88 79 - 98 fL LAB HEMATOLOGY METHOD 07/15/2024 5:09 PM EDT [facility] MCH 28.4 26.0 - 32.0 pg LAB HEMATOLOGY METHOD 07/15/2024 5:09 PM EDT [facility] MCHC 32.2 30.7 - 35.5 g/dL LAB HEMATOLOGY METHOD 07/15/2024 5:09 PM EDT [facility] RDW 16.7(H) 11.5 - 14.5 % LAB HEMATOLOGY METHOD 07/15/2024 5:09 PM EDT [facility] MPV 9.1 8.8 - 12.5 fL LAB HEMATOLOGY METHOD 07/15/2024 5:09 PM EDT [facility] nRBC 0.0 <=0.0 per 100 WBCs LAB HEMATOLOGY METHOD 07/15/2024 5:09 PM EDT [facility] Differential Type Automated LAB HEMATOLOGY METHOD 07/15/2024 5:09 PM EDT [facility] Neutrophils % 78 % LAB HEMATOLOGY METHOD 07/15/2024 5:09 PM EDT [facility] Lymphocytes % 11 % LAB HEMATOLOGY METHOD 07/15/2024 5:09 PM EDT [facility] Monocytes % 9 % LAB HEMATOLOGY METHOD 07/15/2024 5:09 PM EDT [facility] Eosinophils % 1 % LAB HEMATOLOGY METHOD 07/15/2024 5:09 PM EDT [facility] Basophils % 1 % LAB HEMATOLOGY METHOD 07/15/2024 5:09 PM EDT [facility] Immature Granulocytes % 0 % LAB HEMATOLOGY METHOD 07/15/2024 5:09 PM EDT [facility] Neutrophils Absolute 7.37(H) 1.60 - 6.10 10*3/uL LAB HEMATOLOGY METHOD 07/15/2024 5:09 PM EDT [facility] Lymphocytes Absolute 0.99(L) 1.20 - 3.90 10*3/uL LAB HEMATOLOGY METHOD 07/15/2024 5:09 PM EDT [facility] Monocytes Absolute 0.88 0.30 - 0.90 10*3/uL LAB HEMATOLOGY METHOD 07/15/2024 5:09 PM EDT [facility] Eosinophils Absolute 0.07 0.00 - 0.50 10*3/uL LAB HEMATOLOGY METHOD 07/15/2024 5:09 PM EDT [facility] Basophils Absolute 0.05 0.00 - 0.10 10*3/uL LAB HEMATOLOGY METHOD 07/15/2024 5:09 PM EDT [facility] Immature Granulocytes Absolute 0.03 0.00 - 0.06 10*3/uL LAB HEMATOLOGY METHOD 07/15/2024 5:09 PM EDT [facility] Blood Venous blood specimen / Unknown Venipuncture / Unknown 07/15/2024 5:03 PM EDT 07/15/2024 5:06 PM EDT Narrative [facility] - 07/15/2024 5:09 PM EDT Therapeutic decision making should be based on absolute values, rather than percentages. Chava Stephenson MD LAB BLOOD ORDERABLES Final Result [facility] [address] [place] [address] * (ABNORMAL) Troponin now and 120 min (07/15/2024 5:03 PM EDT) Troponin T, High Sensitivity, 0 Hour 41(H) <19 ng/L 07/15/2024 5:58 PM EDT [facility] Blood Venous blood specimen / Unknown Venipuncture / Unknown 07/15/2024 5:03 PM EDT 07/15/2024 5:20 PM EDT Chava Stephenson MD LAB BLOOD ORDERABLES Final Result Performing Organization Address City/[facility]/ZIP Co de Phone Number [facility] [address] [place] [address] * (ABNORMAL) Lipase (07/15/2024 5:03 PM EDT) Lipase, Plasma 7(L) 19 - 63 U/L 07/15/2024 6:17 PM EDT [facility] Blood Venous blood specimen / Unknown Venipuncture / Unknown 07/15/2024 5:03 PM EDT 07/15/2024 5:20 PM EDT Chava Stephenson MD LAB BLOOD ORDERABLES Final Result Performing Organization Address City/[facility]/ZIP Co de Phone Number [facility] [address] [place] [address] * (ABNORMAL) Magnesium (07/15/2024 5:03 PM EDT) Magnesium, Plasma 1.6(L) 1.9 - 2.4 mg/dL 07/15/2024 5:58 PM EDT [facility] Blood Venous blood specimen / Unknown Venipuncture / Unknown 07/15/2024 5:03 PM EDT 07/15/2024 5:20 PM EDT us Chava Stephenson MD LAB BLOOD ORDERABLES Final Result [facility] [address] [place] [address] * (ABNORMAL) CMP (07/15/2024 5:03 PM EDT) Glucose, Plasma 265(H) 74 - 99 mg/dL 07/15/2024 5:58 PM EDT [facility] BUN, Plasma 14 8 - 23 mg/dL 07/15/2024 5:58 PM EDT [facility] Creatinine, Plasma 1.03 0.70 - 1.20 mg/dL 07/15/2024 5:58 PM EDT [facility] BUN/Creatinine Ratio 14 07/15/2024 5:58 PM EDT [facility] Sodium, Plasma 139 136 - 145 mmol/L 07/15/2024 5:58 PM EDT [facility] Potassium, Plasma 4.0 3.6 - 4.9 mmol/L 07/15/2024 5:58 PM EDT [facility] Chloride, Plasma 103 97 - 107 mmol/L 07/15/2024 5:58 PM EDT [facility] CO2, Plasma 29 22 - 29 mmol/L 07/15/2024 5:58 PM EDT [facility] Anion Gap 7 6 - 16 mmol/L 07/15/2024 5:58 PM EDT [facility] Total Calcium, Plasma 8.4(L) 8.9 - 10.2 mg/dL 07/15/2024 5:58 PM EDT [facility] Total Protein 5.6(L) 6.3 - 7.9 g/dL 07/15/2024 5:58 PM EDT [facility] Albumin, Plasma 3.0(L) 3.5 - 5.2 g/dL 07/15/2024 5:58 PM EDT [facility] AST, Plasma 32 10 - 50 U/L 07/15/2024 5:58 PM EDT [facility] ALT, Plasma 36 10 - 50 U/L 07/15/2024 5:58 PM EDT [facility] Alkaline Phosphatase, Plasma 97 40 - 115 U/L 07/15/2024 5:58 PM EDT [facility] Total Bilirubin, Plasma 0.6 0.2 - 1.1 mg/dL 07/15/2024 5:58 PM EDT [facility] eGFRcr 78.1 mL/min/1.7 3m*2 07/15/2024 5:58 PM EDT [facility] Comment:Reported eGFRcr in m L/min/1.73m2 is based the CKD-EPI 2020 equation that does not use a race coefficient. Blood Venous blood specimen / Unknown Venipuncture / Unknown 07/15/2024 5:03 PM EDT 07/15/2024 5:20 PM EDT Chava Stephenson MD LAB BLOOD ORDERABLES Final Result [facility] [address] [place] [address] * (ABNORMAL) POCT glucose meter (07/15/2024 4:40 PM EDT) [facility] POCT Glucose 243(H) 74 - 99 mg/dL 07/15/2024 4:42 PM EDT [facility] Comment:Accuracy of a glucos e result obtained from a capillary whole blood specimen relies upon adequate, non-compromised capillary blood flow. If the capillary glucose result is not consistent with the patient's clinical signs and symptoms, glucose testing should be repeated with either an arterial or venous sample on the glucometer or sent to the main labortory for testing. Comment 07/15/2024 4:42 PM EDT [facility] Chief Design Engineer ID Germania Taveras 07/15/2024 4:42 PM EDT [facility] Device ID [id number] 07/15/2024 4:42 PM EDT [facility] Specimen Type POC Capillary 07/15/2024 4:42 PM EDT [facility] Blood Capillary blood specimen / Unknown 07/15/2024 4:40 PM EDT 07/15/2024 4:42 PM EDT Chava Stephenson MD LAB POINT OF CARE T EST DOCKED DEVICE UNSOLICITED RESULTS Final Result [facility] [address] [place] [address] documented in this encounter Visit Diagnoses Diagnosis Multifocal pneumonia- Primary Fall, initial encounter Multifocal pneumonia Acute hypoxic respiratory failure Acquired thrombocytopenia (CMS/HCC) Secondary thrombocytopenia Oropharyngeal dysphagia Dysphagia, oropharyngeal phase Stage 3a chronic kidney disease (CMS/HCC) Fall (on) (from) other stairs and steps, initial encounter Anemia of chronic disease Anemia of other chronic disease Traumatic hematoma of flank Chronic diastolic heart failure (CMS/HCC) Chronic diastolic heart failure Bronchiectasis Bronchiectasis without acute exacerbation Rheumatoid arthritis (CMS/HCC) Coronary arteriosclerosis Coronary atherosclerosis of unspecified type of vessel, [place] or graft documented in this encounter Admitting Diagnoses Diagnosis Multifocal pneumonia documented in this encounter Administered Medications Inactive Administered Medications - up to 3 most recent administrations Medication Order MAR Action Action Date Dose Rate Site acetaminophen (Tylenol) tablet 1,000 mg 1,000 mg, Oral, Every 8 hours, First dose on Tue07/15/24 at 2200, Until Discontinued, Routine Given 07/20/2024 1:31 PM EDT 1,000 mg Given 07/20/2024 5:25 AM EDT 1,000 mg Given 07/19/2024 9:18 PM EDT 1,000 mg allopurinol (Zyloprim) tablet 300 mg 300 mg, Oral, Daily, First dose on Tue07/16/24 at 0900, Until Discontinued, Routine Given 07/20/2024 10:00 AM EDT 300 mg Given 07/19/2024 8:31 AM EDT 300 mg Given 07/18/2024 8:47 AM EDT 300 mg amoxicillin-clavulanate (Augmentin) 600-42.9 MG/5ML suspension 1,000 mg 1,000 mg, Oral, Every 8 hours, 11 doses, First dose on Tue07/19/24 at 1300, Last dose on Tue07/22/24 at 2100, Routine Given 07/20/2024 5:25 AM EDT 1,000 m g Given 07/19/2024 8:49 PM EDT 1,000 mg Given 07/19/2024 2:49 PM EDT 1,000 mg amoxicillin-clavulanate (Augmentin) 875-125 MG per tablet 1 tablet 1 tablet (875 mg), Oral, Every 12 hours, 5 doses, First dose on Tue07/20/24 at 1300, Last dose on Tue07/22/24 at 1300, Routine Given 07/20/2024 1:31 PM EDT 1 tablet aspirin chewable tablet 81 mg 81 mg, Oral, Daily, First dose on Tue07/17/24 at 1245, Until Discontinued, Routine Given 07/20/2024 10:00 AM EDT 81 mg Given 07/19/2024 8:31 AM EDT 81 mg Given 07/18/2024 8:47 AM EDT 81 mg barium sulfate (Varibar Labelle) 40 % suspension 120 mL 120 mL, Oral, Once in imaging, 1 dose, Starting on Tue07/18/24 at 0844, Until Tue07/18/24 at 0844, Routine, Imaging Protocol Orders Given 07/18/2024 8:44 AM EDT 120 mL barium sulfate (Varibar Pudding) 40 % oral paste 15 mL 15 mL, Oral, Once in imaging, 1 dose, Starting on Tue07/18/24 at 0844, Until Tue07/18/24 at 0844, Routine, Imaging Protocol Orders Given 07/18/2024 8:44 AM EDT 15 mL barium sulfate (Varibar Thin Honey) 40 % suspension 90 mL 90 mL, Oral, Once in imaging, 1 dose, Starting on Tue07/18/24 at 0843, Until Tue07/18/24 at 0844, Routine, Imaging Protocol Orders Given 07/18/2024 8:44 AM EDT 90 mL barium sulfate (Varibar THIN Liquid) 40 % suspension 120 mL 120 mL, Oral, Once in imaging, 1 dose, Starting on Tue07/18/24 at 0843, Until Tue07/18/24 at 0844, Routine, Imaging Protocol Orders Given 07/18/2024 8:44 AM EDT 120 mL clopidogrel (Plavix) tablet 75 mg 75 mg, Oral, Daily, First dose on Tue07/17/24 at 1245, Until Discontinued, Routine Given 07/20/2024 10:0 0 AM EDT 75 mg Given 07/19/2024 8:31 AM EDT 75 mg Given 07/18/2024 8:47 AM EDT 75 mg dextrose 50 % solution 12.5-25 g 12.5-25 g, Intravenous, Every 15 min PRN, Starting on Tue07/15/24 at 2044, Until Tue07/20/24 at 1659, Routine, low blood sugar Given 07/18/2024 12:07 PM EDT 2 5 g donepezil (Aricept) tablet 10 mg 10 mg, Oral, Nightly, First dose on Tue07/15/24 at 2105, Until Discontinued, Routine Given 07/19/2024 8:48 PM EDT 10 mg Given 07/18/2024 8:14 PM EDT 10 mg Given 07/17/2024 9:00 PM EDT 10 mg DULoxetine (Cymbalta) DR capsule 120 mg 120 mg, Oral, Daily, First dose on Tue07/16/24 at 0900, Until Discontinued, Routine Given 07/19/2024 8:31 AM EDT 120 mg Given 07/18/2024 8:47 AM EDT 120 mg Given 07/17/2024 8:21 AM EDT 120 mg DULoxetine (Cymbalta) DR capsule 60 mg 60 mg, Oral, Daily, First dose (after last modification) on Tue07/20/24 at 0900, Until Discontinued, Routine Given 07/20/2024 9:00 AM EDT 60 mg enoxaparin (Lovenox) syringe 40 mg 40 mg, Subcutaneous, Daily, First dose on Tue07/17/24 at 0900, Until Discontinued, Routine Given 07/20/2024 10:00 AM EDT 40 mg Left Lower Abdomen Given 07/19/2024 8:33 AM EDT 40 mg Le ft Lower Abdomen Given 07/18/2024 8:50 AM EDT 40 mg Le ft Lower Abdomen finasteride (Proscar) tablet 5 mg 5 mg, Oral, Daily, First dose on Tue07/16/24 at 0900, Until Discontinued, Routine Given 07/20/2024 10:00 AM EDT 5 mg Given 07/19/2024 8:31 AM EDT 5 mg Given 07/18/2024 8:47 AM EDT 5 mg furosemide (Lasix) tablet 40 mg 40 mg, Oral, Daily, First dose on Milady 07/19/24 at 0900, Until Discontinued, Routine Given 07/20/2024 10:00 AM EDT 40 mg Given 07/19/2024 8:31 AM EDT 40 mg gabapentin (Neurontin) capsule 800 mg 800 mg, Oral, 3 times daily, First dose on Tue07/16/24 at 0900, Until Discontinued, Routine Given 07/20/2024 10:00 AM EDT 800 mg Given 07/19/2024 8:48 PM EDT 800 mg Given 07/19/2024 4:36 PM EDT 800 mg glucagon (human recombinant) injection 1 mg 1 mg, Intramuscular, Every 15 min PRN, Starting on 07/15/24 at 204, Until Tue07/20/24 at 1659, Routine, low blood sugar per Hypoglycemia Prevention and Treatment protocol glucose (Glutose) 40 % oral gel 15-30 grams of glucose 15-30 grams of glucose, Sublingual, Every 15 min PRN, Starting on 07/15/24 at 204, Until Tue07/20/24 at 1659, Routine, low blood sugar, per Hypoglycemia Prevention and Treatment protocol guaiFENesin (Mucinex) 12 hr tablet 600 mg 600 mg, Oral, 2 times daily PRN, Starting on Tue07/15/24 at 2055, Until Tue07/20/24 at 1659, Routine, cough Given 07/16/2024 8:21 PM EDT 600 mg HYDROcodone-acetaminophen (Gloster) 5-325 MG per tablet 10 mg of hydrocodone 10 mg of hydrocodone, Oral, Once, 1 dose, On Tue07/15/24 at 1710, STAT Given 07/15/2024 5:11 PM EDT 10 mg of hydrocodone HYDROmorphone (Dilaudid) injection 0.25 mg 0.25 mg, Intravenous, Once, 1 dose, On Tue07/15/24 at 2035, STAT Given 07/15/2024 8:37 PM EDT 0.25 mg hydroxychloroquine (Plaquenil) tablet 200 mg 200 mg, Oral, Daily, First dose (after last modification) on Tue07/20/24 at 0900, Until Discontinued, Routine Given 07/20/2024 10:00 AM EDT 200 mg hydroxychloroquine (Plaquenil) tablet 400 mg 400 mg, Oral, Daily, First dose on Tue07/16/24 at 0900, Until Discontinued, Routine Given 07/19/2024 8:31 AM EDT 400 mg Given 07/18/2024 8:47 AM EDT 400 mg Given 07/17/2024 8:21 AM EDT 400 mg insulin glargine-yfgn 100 UNIT/ML injection 10 Units 10 Units, Subcutaneous, Nightly, First dose (after last modification) on Tue07/18/24 at 2100, Until Discontinued, Routine Given 07/19/2024 8:49 PM EDT 10 Units Right Upper Arm (Martha k) Given 07/18/2024 8:14 PM EDT 10 Units Ri ght Upper Abdomen insulin glargine-yfgn 100 UNIT/ML injection 20 Units 20 Units, Subcutaneous, Nightly, First dose on Tue07/15/24 at 2100, Until Discontinued, Routine Given 07/17/2024 9:00 PM EDT 20 Units Left Upper Arm (Back ) Given 07/16/2024 8:21 PM EDT 20 Units Ri ght Upper Abdomen Given 07/15/2024 9:27 PM EDT 20 Units Ri ght Upper Arm (Back) insulin lispro (Admelog) 100 units/mL injection - Correction - Standard Dose 0-5 Units, Subcutaneous, 3 times daily with meals, First dose on Tue07/16/24 at 0830, Until Discontinued, Routine Given 07/20/2024 12:15 PM EDT 3 Units Left Lower Abdomen Given 07/20/2024 9:30 AM EDT 1 Units Le ft Lower Abdomen Given 07/19/2024 5:27 PM EDT 2 Units Ri ght Upper Arm (Back) Insulin Lispro (Admelog, HumaLOG) 100 UNIT/ML injection 3 Units 3 Units, Subcutaneous, 3 times daily with meals, First dose on Tue07/16/24 at 0830, Until Discontinued, Routine Given 07/20/2024 12:15 PM EDT 3 Units Left Lower Abdomen Given 07/20/2024 9:30 AM EDT 3 Units Le ft Lower Abdomen Given 07/19/2024 5:27 PM EDT 3 Units Ri ght Upper Arm (Back) ipratropium-albuterol (Duo-Neb) 0.5-2.5 mg/3 mL nebulizer solution 3 mL 3 mL, Nebulization, Every 6 hours RT, 5 doses, First dose on Tue07/15/24 at 2100, Last dose on Tue07/16/24 at 2100, Routine Given 07/16/2024 9:36 PM EDT 3 mL Given 07/16/2024 3:10 PM EDT 3 mL Given 07/16/2024 8:27 AM EDT 3 mL lactated Ringer's bolus 500 mL 500 mL, Intravenous, Once, 1 dose, On Tue07/15/24 at 2100, Administer over 4 Hours, STAT New Bag 07/15/2024 9:27 PM EDT 500 mL 125 mL/hr levothyroxine (Synthroid, Levoxyl) tablet 150 mcg 150 mcg, Oral, Every morning, First dose on Tue07/16/24 at 0600, Until Discontinued, Routine Given 07/20/2024 5:25 AM EDT 150 mcg Given 07/19/2024 6:31 AM EDT 150 mcg Given 07/18/2024 5:39 AM EDT 150 mcg magnesium sulfate IVPB 2 g 2 g, Intravenous, Once, 1 dose, On Tue07/15/24 at 1800, STAT New Bag 07/15/2024 6:04 PM EDT 2 g 25 mL/ hr metoprolol succinate XL (Toprol-XL) 24 hr tablet 25 mg 25 mg, Oral, Daily, First dose on Milady 07/19/24 at 1445, Until Discontinued, Routine Given 07/20/2024 10:00 AM EDT 25 mg Given 07/19/2024 2:51 PM EDT 25 mg mupirocin (Bactroban) 2 % ointment 1 Application Each Nostril, 2 times daily, 10 doses, First dose on Tue07/18/24 at 0900, Last dose on Tue07/22/24 at 2100, Wound 07/16/24 Arm Lower;Posterior;Proximal;Right, Wound 07/16/24 Arm Distal;Lower;Posterior;Right, Wound 07/16/24 Arm Distal;Left;Lower;Posterior, Routine Given 07/20/2024 10:00 AM EDT 1 Application Given 07/19/2024 8:49 PM EDT 1 Application Given 07/19/2024 8:33 AM EDT 1 Application oxyCODONE (Roxicodone) immediate release tablet 10 mg 10 mg, Oral, Every 6 hours PRN, Starting on Tue07/17/24 at 1152, Until Tue07/20/24 at 1659, Routine, moderate pain Given 07/18/2024 8:14 PM EDT 10 mg Given 07/18/2024 9:28 AM EDT 10 mg Given 07/17/2024 5:38 PM EDT 10 mg oxyCODONE (Roxicodone) immediate release tablet 5 mg 5 mg, Oral, Every 6 hours PRN, Starting on Tue07/15/24 at 2125, Until Tue07/17/24 at 1154, Routine, severe pain Given 07/16/2024 8:21 PM EDT 5 mg Given 07/16/2024 2:53 PM EDT 5 mg Given 07/16/2024 8:19 AM EDT 5 mg pantoprazole (Protonix) EC tablet 40 mg 40 mg, Oral, Daily, First dose on Tue07/16/24 at 0900, Until Discontinued, Routine Given 07/20/2024 10:00 AM EDT 40 mg Given 07/19/2024 8:31 AM EDT 40 mg Given 07/18/2024 8:47 AM EDT 40 mg piperacillin-tazobactam (Zosyn) 4.5 g in sodium chloride 0.9% 100 mL IVPB (vial adapter required) 4.5 g, Intravenous, Every 6 hours, 28 doses, First dose on Tue07/15/24 at 2310, Last dose on Tue07/22/24 at 1830, Routine New Bag 07/19/2024 6:31 AM EDT 4.5 g 36.7 mL/hr New Bag 07/18/2024 11:49 PM EDT 4.5 g 36.7 mL/hr New Bag 07/18/2024 6:23 PM EDT 4.5 g 36.7 mL/hr rosuvastatin (Crestor) tablet 20 mg 20 mg, Oral, Nightly, First dose on Tue07/15/24 at 2105, Until Discontinued, Routine Given 07/19/2024 8:48 PM EDT 20 mg Given 07/18/2024 8:14 PM EDT 20 mg Given 07/17/2024 9:01 PM EDT 20 mg senna (Senokot) tablet 17.2 mg 17.2 mg (2 tablet), Oral, Nightly, First dose on Tue07/15/24 at 2100, Until Discontinued, Routine Given 07/19/2024 8:48 PM EDT 17.2 mg Given 07/16/2024 8:20 PM EDT 17.2 mg Given 07/15/2024 9:28 PM EDT 17.2 mg sodium chloride 0.9 % flush 10 mL 10 mL, Intravenous, Every 12 hours, First dose on Tue07/15/24 at 2049, Until Discontinued, Routine Given 07/20/2024 10:02 AM EDT 10 mL Given 07/19/2024 8:57 PM EDT 10 mL Given 07/19/2024 8:30 AM EDT 10 mL sodium chloride 0.9 % flush 10 mL 10 mL, Intravenous, As needed, Starting on Tue07/15/24 at 204, Until Tue07/20/24 at 1659, Routine, line care sodium chloride 3 % nebulizer solution 3 mL 3 mL, Nebulization, 2 times daily PRN, Starting on Tue07/15/24 at 2054, Until Tue07/20/24 at 1659, Routine, mucolysis tamsulosin (Flomax) 24 hr capsule 0.8 mg 0.8 mg, Oral, Daily with dinner, First dose on Tue07/16/24 at 1800, Until Discontinued, Routine Given 07/19/2024 5:28 PM EDT 0.8 mg Given 07/18/2024 6:34 PM EDT 0.8 mg Given 07/17/2024 5:34 PM EDT 0.8 mg traZODone (Desyrel) tablet 150 mg 150 mg, Oral, Nightly PRN, Starting on Tue07/15/24 at 2058, Until Tue07/20/24 at 1659, Routine, sleep Given 07/19/2024 8:48 PM EDT 150 mg Given 07/18/2024 8:15 PM EDT 150 mg Given 07/17/2024 9:00 PM EDT 150 mg valACYclovir (Valtrex) tablet 500 mg 500 mg, Oral, Daily, First dose on Tue07/16/24 at 0900, Until Discontinued, Routine Given 07/20/2024 10:00 AM EDT 500 mg Given 07/19/2024 8:31 AM EDT 500 mg Given 07/18/2024 8:47 AM EDT 500 mg documented in this encounter Active and Recently Administered Medications Times are shown in EDT. Scheduled Medication Order 07/18/2024 07/19/2024 07/20/2024 acetaminophen (Tylenol) tablet 1,000 mg 1,000 mg, Oral, Every 8 hours, First dose on 07/15/24 at 2200, Until Discontinued, Routine 0539 (Given - Provider: Juana Bettencourt RN)1412 (Given - Provider: Renate Mathew RN)2100 (Given - Provider: Juana Bettencourt RN) 0631 (Given - Provider: Juana Bettencourt RN)1449 (Given - Provider: Renate Mathew RN)211 (Given - Provider: Mohamud Garrison RN) 0525 (Given - Provider: Mohamud Garrison RN)1331 (Given - Provider: Todd Ayala, ARTHUR) allopurinol (Zyloprim) tablet 300 mg 300 mg, Oral, Daily, First dose on Tue07/16/24 at 0900, Until Discontinued, Routine 0847 (Given - Provider: Renate Mathew RN) 0831 (Given - Provider: Renate Mathew RN) 1000 (Given - Provider: Todd Ayala, ARTHUR) amoxicillin-clavulanat e (Augmentin) 600-42.9 MG/5ML suspension 1,000 mg (CANCELED) 1,000 mg, Oral, Every 8 hours, 11 doses, First dose on Milady 07/19/24 at 1300, Last dose on 07/22/24 at 2100, Routine 1449 (Given - Provider: Renate Mathew RN - Comment: Med did not arrive in time from pharmacy.)2048 (Given - Provider: Mohamud Garrison RN) 0525 (Given - Provider: Mohamud Garrison RN) amoxicillin-clavulanat e (Augmentin) 875-125 MG per tablet 1 tablet 1 tablet (875 mg), Oral, Every 12 hours, 5 doses, First dose on Tue07/20/24 at 1300, Last dose on Tue07/22/24 at 1300, Routine 1331 (Given - Provid er: Todd Ayala RN) aspirin chewable tablet 81 mg 81 mg, Oral, Daily, First dose on Tue07/17/24 at 1245, Until Discontinued, Routine 0847 (Given - Provider: Renate Mathew RN) 0831 (Given - Provider: Renate Mathew RN) 1000 (Given - Provider: Todd Ayala RN) barium sulfate (Varibar Labelle) 40 % suspension 120 mL (COMPLETED) 120 mL, Oral, Once in imaging, 1 dose, Starting on Tue07/18/24 at 0844, Until Tue07/18/24 at 0844, Routine, Imaging Protocol Orders 0844 (Given - Provider: Yuliet Bailey) barium sulfate (Varibar Pudding) 40 % oral paste 15 mL (COMPLETED) 15 mL, Oral, Once in imaging, 1 dose, Starting on Tue07/18/24 at 0844, Until Tue07/18/24 at 0844, Routine, Imaging Protocol Orders 0844 (Given - Provider: Yuliet Bailey) barium sulfate (Varibar Thin Honey) 40 % suspension 90 mL (COMPLETED) 90 mL, Oral, Once in imaging, 1 dose, Starting on Tue07/18/24 at 0843, Until Tue07/18/24 at 0844, Routine, Imaging Protocol Orders 0844 (Given - Provider: Yuliet Bailey) barium sulfate (Varibar THIN Liquid) 40 % suspension 120 mL (COMPLETED) 120 mL, Oral, Once in imaging, 1 dose, Starting on Tue07/18/24 at 0843, Until Tue07/18/24 at 0844, Routine, Imaging Protocol Orders 0844 (Given - Provider: Yuliet Bailey) clopidogrel (Plavix) tablet 75 mg 75 mg, Oral, Daily, First dose on Tue07/17/24 at 1245, Until Discontinued, Routine 0847 (Given - Provider: Renate Mathew RN) 0831 (Given - Provider: Renate Mathew RN) 1000 (Given - Provider: Todd Ayala RN) donepezil (Aricept) tablet 10 mg 10 mg, Oral, Nightly, First dose on Tue07/15/24 at 2105, Until Discontinued, Routine 2013 (Given - Provider: Juana Bettencourt RN) 2047 (Given - Provider: Mohamud Garrison, ARTHUR) DULoxetine (Cymbalta) DR capsule 120 mg (CANCELED) 120 mg, Oral, Daily, First dose on Tue07/16/24 at 0900, Until Discontinued, Routine 0847 (Given - Provider: Renate Mathew RN) 0831 (Given - Provider: Renate Mathew RN) DULoxetine (Cymbalta) DR capsule 60 mg 60 mg, Oral, Daily, First dose (after last modification) on Tue07/20/24 at 0900, Until Discontinued, Routine 0900 (Given - Provid er: Todd Ayala RN) enoxaparin (Lovenox) syringe 40 mg 40 mg, Subcutaneous, Daily, First dose on Tue07/17/24 at 0900, Until Discontinued, Routine 0850 (Given - Provider: Renate Mathew RN) 0833 (Given - Provider: Renate Mathew RN) 1000 (Given - Provider: Todd Ayala RN) finasteride (Proscar) tablet 5 mg 5 mg, Oral, Daily, First dose on Tue07/16/24 at 0900, Until Discontinued, Routine 0847 (Given - Provider: Renate Mathew RN) 0831 (Given - Provider: Renate Mathew RN) 1000 (Given - Provider: Todd Ayala RN) furosemide (Lasix) tablet 40 mg 40 mg, Oral, Daily, First dose on Tue07/19/24 at 0900, Until Discontinued, Routine 0831 (Given - Provider: Renate Mathew RN) 1000 (Given - Provider: Todd Ayala RN) gabapentin (Neurontin) capsule 800 mg 800 mg, Oral, 3 times daily, First dose on Tue07/16/24 at 0900, Until Discontinued, Routine 0847 (Given - Provider: Renate Mathew RN)1607 (Given - Provider: Renate Mathew RN)2013 (Given - Provider: Juana Bettencourt RN) 08 (Given - Provider: Renate Mathew RN)163 (Given - Provider: Renate Mathew RN)2047 (Given - Provider: Mohamud Garrison RN) 1000 (Given - Provider: Todd Ayala RN)1600 (Canceled Entry - Provider: Automatic Discharge Provider - Comment: Automatically canceled at discontinue of medication order) hydroxychloroquine (Plaquenil) tablet 200 mg 200 mg, Oral, Daily, First dose (after last modification) on Tue07/20/24 at 0900, Until Discontinued, Routine 1000 (Given - Provid er: Todd Ayala RN) hydroxychloroquine (Plaquenil) tablet 400 mg (CANCELED) 400 mg, Oral, Daily, First dose on Tue07/16/24 at 0900, Until Discontinued, Routine 0847 (Given - Provider: Renate Mathew RN) 0831 (Given - Provider: Renate Mathew RN) insulin glargine-yfgn 100 UNIT/ML injection 10 Units 10 Units, Subcutaneous, Nightly, First dose (after last modification) on Tue07/18/24 at 2100, Until Discontinued, Routine 2013 (Given - Provider: Juana Bettencourt RN) 2048 (Given - Provider: Mohamud Garrison RN) insulin lispro (Admelog) 100 units/mL injection - Correction - Standard Dose 0-5 Units, Subcutaneous, 3 times daily with meals, First dose on Tue07/16/24 at 0830, Until Discontinued, Routine 0754 (Not Given - Provider: Renate Mathew RN - Reason: Order parameters not met)1146 (Not Given - Provider: Renate Mathew RN - Reason: Order parameters not met)1712 (Not Given - Provider: eRnate Mathew RN - Reason: Patient/family refused) 0830 (Given - Provider: Renate Mathew RN)1245 (Given - Provider: Renate Mathew RN)1727 (Given - Provider: Renate Mathew RN) 0930 (Given - Provider: Todd Ayala RN)1215 (Given - Provider: Todd Ayala RN) insulin lispro (Admelog) injection - Correction - Nighttime Dose 0-3 Units, Subcutaneous, 2 times nightly (2100 & 0300), First dose on Tue07/15/24 at 2100, Until Discontinued, Routine 0300 (Canceled Entry - Provider: Juana Bettencourt RN)1999 (Not Given - Provider: Juana Bettencourt RN - Reason: Order parameters not met) 0300 (Canceled Entry - Provider: Juana Bettencourt RN)2117 (Not Given - Provider: Mohamud Garrison RN - Reason: Order parameters not met) 0315 (Not Given - Provider: Mohamud Garrison RN - Reason: Order parameters not met) Insulin Lispro (Admelog, HumaLOG) 100 UNIT/ML injection 3 Units 3 Units, Subcutaneous, 3 times daily with meals, First dose on Tue07/16/24 at 0830, Until Discontinued, Routine 0846 (Given - Provider: Renate Mathew RN)1146 (Not Given - Provider: Renate Mathew RN - Reason: Order parameters not met - Comment: BG low)1713 (Not Given - Provider: Renate Mathew RN - Reason: Patient/family refused) 0829 (Given - Provider: Renate Mathew RN)1244 (Given - Provider: Renate Mathew RN)1727 (Given - Provider: Renate Mathew RN) 0930 (Given - Provider: Todd Ayala, ARTHUR)1215 (Given - Provider: Todd Ayala, ARTHUR) levothyroxine (Synthroid, Levoxyl) tablet 150 mcg 150 mcg, Oral, Every morning, First dose on Tue07/16/24 at 0600, Until Discontinued, Routine 0539 (Given - Provider: Juana Bettencourt RN) 0631 (Given - Provider: Juana Bettencourt RN) 0525 (Given - Provider: Mohamud Garrison RN) metoprolol succinate XL (Toprol-XL) 24 hr tablet 25 mg 25 mg, Oral, Daily, First dose on Tue07/19/24 at 1445, Until Discontinued, Routine 1451 (Given - Provider: Renate Mathew RN) 1000 (Given - Provider: Todd Ayala, ARTHUR) mupirocin (Bactroban) 2 % ointment 1 Application Each Nostril, 2 times daily, 10 doses, First dose on Tue07/18/24 at 0900, Last dose on Tue07/22/24 at 2100, Wound 07/16/24 Arm Lower;Posterior;Proxim al;Right, Wound 07/16/24 Arm Distal;Lower;Posterior ;Right, Wound 07/16/24 Arm Distal;Left;Lower;Post erior, Routine 0852 (Given - Provider: Renate Mathew, RN)2013 (Given - Provider: Juana Bettencourt RN) 0833 (Given - Provider: Renate Mathew RN)2048 (Given - Provider: Mohamud Garrison, ARTHUR) 1000 (Given - Provider: Todd Ayala, ARTHUR) pantoprazole (Protonix) EC tablet 40 mg 40 mg, Oral, Daily, First dose on 07/16/24 at 0900, Until Discontinued, Routine 0847 (Given - Provider: Renate Mathew RN) 0831 (Given - Provider: Renate Mathew RN) 1000 (Given - Provider: Todd Ayala, RN) piperacillin-tazobacta m (Zosyn) 4.5 g in sodium chloride 0.9% 100 mL IVPB (vial adapter required) (CANCELED) 4.5 g, Intravenous, Every 6 hours, 28 doses, First dose on 07/15/24 at 2310, Last dose on 07/22/24 at 1830, Routine 0539 (New Bag - Provider: Juana Bettencourt RN)1238 (New Bag - Provider: Renate Mathew RN)1823 (New Bag - Provider: Renate Mathew, RN)2349 (New Bag - Provider: Juana Bettencourt RN) 0631 (New Bag - Provider: Juana Bettencourt RN) rosuvastatin (Crestor) tablet 20 mg 20 mg, Oral, Nightly, First dose on 07/15/24 at 2105, Until Discontinued, Routine 2013 (Given - Provider: Juana Bettencourt RN) 2047 (Given - Provider: Mohamud Garrison, ARTHUR) senna (Senokot) tablet 17.2 mg 17.2 mg (2 tablet), Oral, Nightly, First dose on 07/15/24 at 2100, Until Discontinued, Routine 1999 (Not Given - Provider: Juana Bettencourt RN - Reason: Patient/family refused) 2047 (Given - Provider: Mohamud Garrison, ARTHUR) sodium chloride 0.9 % flush 10 mL(Linked Group 1) 10 mL, Intravenous, Every 12 hours, First dose on 07/15/24 at 2050, Until Discontinued, Routine 0849 (Given - Provider: Renate Mathew RN)2000 (Not Given - Provider: Juana Bettencourt RN - Reason: Hold for condition: must add comment - Comment: IV currently infusing) 829 (Given - Provider: Renate Mathew RN)2056 (Given - Provider: Mohamud Garrison RN) 1002 (Given - Provider: Todd Ayala, RN) tamsulosin (Flomax) 24 hr capsule 0.8 mg 0.8 mg, Oral, Daily with dinner, First dose on Tue07/16/24 at 1800, Until Discontinued, Routine 1834 (Given - Provider: Renate Mathew RN) 1728 (Given - Provider: Renate Mathew, RN) valACYclovir (Valtrex) tablet 500 mg 500 mg, Oral, Daily, First dose on Tue07/16/24 at 0900, Until Discontinued, Routine 0847 (Given - Provider: Renate Mathew RN) 0831 (Given - Provider: Renate Mathew RN) 1000 (Given - Provider: Todd Ayala, ARTHUR) PRN Medication Order 07/18/2024 07/19/2024 07/20/2024 dextrose 50 % solution 12.5-25 g(Linked Group 2) 12.5-25 g, Intravenous, Every 15 min PRN, Starting on 07/15/24 at 2043, Until Tue07/20/24 at 1659, Routine, low blood sugar 1207 (Given - Provider: Renate Mathew RN) glucagon (human recombinant) injection 1 mg(Linked Group 2) 1 mg, Intramuscular, Every 15 min PRN, Starting on Tue07/15/24 at 2043, Until Tue07/20/24 at 1659, Routine, low blood sugar per Hypoglycemia Prevention and Treatment protocol 1207 (See Alternative - Provider: Renate Mathew, RN) glucose (Glutose) 40 % oral gel 15-30 grams of glucose(Linked Group 2) 15-30 grams of glucose, Sublingual, Every 15 min PRN, Starting on 07/15/24 at 2043, Until Tue07/20/24 at 1659, Routine, low blood sugar, per Hypoglycemia Prevention and Treatment protocol 1207 (See Alternative - Provider: Renate Mathew, RN) guaiFENesin (Mucinex) 12 hr tablet 600 mg 600 mg, Oral, 2 times daily PRN, Starting on Tue07/15/24 at 2054, Until Tue07/20/24 at 1659, Routine, cough oxyCODONE (Roxicodone) immediate release tablet 10 mg 10 mg, Oral, Every 6 hours PRN, Starting on Tue07/17/24 at 1152, Until Tue07/20/24 at 1659, Routine, moderate pain 0928 (Given - Provider: Renate Mathew, RN)2013 (Given - Provider: Juana Bettencourt RN) polyethylene glycol (Miralax) packet 17 g 17 g, Oral, Daily PRN, Starting on 07/16/24 at 0000, Until Tue07/20/24 at 1659, Routine, constipation sodium chloride 0.9 % flush 10 mL(Linked Group 1) 10 mL, Intravenous, As needed, Starting on Tue07/15/24 at 2039, Until Tue07/20/24 at 1658, Routine, line care sodium chloride 3 % nebulizer solution 3 mL 3 mL, Nebulization, 2 times daily PRN, Starting on Tue07/15/24 at 2054, Until Tue07/20/24 at 1658, Routine, mucolysis traZODone (Desyrel) tablet 150 mg 150 mg, Oral, Nightly PRN, Starting on Tue07/15/24 at 2058, Until Tue07/20/24 at 165, Routine, sleep 2014 (Given - Provider: Juana Bettencourt RN) 2047 (Given - Provider: Mohamud Garrison RN) Linked Groups Order Group 1: Insert peripheral IV (CANCELED) Once, On Tue07/15/24 at 2040, For 1 occurrence And Saline lock IV (CANCELED) Once, On Tue07/15/24 at 2040, For 1 occurrence And sodium chloride 0.9 % flush 10 mLJump to med 10 mL, Intravenous, Every 12 hours, First dose on Tue07/15/24 at 2049, Until Discontinued, Routine And sodium chloride 0.9 % flush 10 mLJump to med 10 mL, Intravenous, As needed, Starting on Tue07/15/24 at 2039, Until Tue07/20/24 at 165, Routine, line care Group 2: glucose (Glutose) 40 % oral gel 15-30 grams of glucoseJump to med 15-30 grams of glucose, Sublingual, Every 15 min PRN, Starting on 07/15/24 at 2044, Until Tue07/20/24 at 1659, Routine, low blood sugar, per Hypoglycemia Prevention and Treatment protocol Or dextrose 50 % solution 12.5-25 gJump to med 12.5-25 g, Intravenous, Every 15 min PRN, Starting on Tue07/15/24 at 2044, Until Tue07/20/24 at 1659, Routine, low blood sugar Or glucagon (human recombinant) injection 1 mgJump to med 1 mg, Intramuscular, Every 15 min PRN, Starting on Tue07/15/24 at 2044, Until Tue07/20/24 at 1659, Routine, low blood sugar per Hypoglycemia Prevention and Treatment protocol documented in this encounter Additional Health Concerns Infection Onset Date Last Indicated Resolved Time MRSA Comment:Added from external infection. Source: [facility]. 02/22/2017 07/15/2024 Respiratory Rule-Out 07/15/2024 07/15/2024 025 10:50 PM EDT Assessment Noted Time A Body Mass Index follow-up plan has been documented for the patient 07/20/2024 1:44 PM EDT documented as of this encounter Care Teams Dance Coach Relationship Specialty Start Date End Date Elijah Serra DO [address] [place] [address] PCP - General Station Chief 12/01/22 documented as of this encounter
--- OUTSIDE RECORDS SUMMARY | 2024-08-06 10:45 | XMS_ITS | Encounter Summary ---
Author Organization [facility] Address [address] [place] [address] Support Name Relationship Address Phone Stepan Gold Personal Relationship [address] [place] [address] Mi Asif Personal Relationship Unknown [phone] Rosalind Andersonill Personal Relationship Unknown [phone] Vivi Ward Personal Relationship Unknown Care Team Providers Care Chemist Food Name Role Phone Willi Templeton MD Unavailable María Andre MD Unavailable Selene Rodriguez HULL BUILDER Unavailable Mariah Flowers HULL BUILDER Unavailable Neyda Beltran MD Unavailable Ryanne Roblero MD Unavailable Unavailable Mi Martin HULL BUILDER Unavailable [phone] Elijah Serra DO Primary Care Provider Micha Washington MD Unavailable Encounter Details Date Type Department Care Team (Latest Contact Info) Description 08/06/2024 10:45 AM EDT Office Visit [facility] [address] [facility], [address] [place] [address] Micha Washington MD [address] [place] [id number] Type 1 diabetes mellitus with diabetic polyneuropathy [...] doctor or pharmacy Never 04/29/2023 [facility] Utilities Answer Date Recorded In the past 12 months has e [email or web address], gas, oil, or water [employer] threatened to shut off services in your [...] were you homeless or living in a [place] health care facility (including now)? No 04/02/2024 Sex and Gender [...] performed by Jose Ramon Rivera MD at [facility] [employer] ??? CORONARY ATHERECTOMY 08/04/2016 Coronary Atherectomy performed by Jose Ramon Rivera MD at [facility] ??? CORONARY INTERVENTION N/A 08/04/2016 Coronary intervention performed by Jose Ramon Rivera MD at [facility] ??? DRUG-ELUTING STENT PLACEMENT N/A 08/04/2016 Drug-eluting stent placement performed by Jose Ramon Rivera MD at [facility] ??? DRUG-ELUTING STENT PLACEMENT N/A 06/02/2009 CORONARY SANDY PLACEMENT performed by Horacio Sherman MD at [facility] ??? HX BROKEN/FX BONES L HIP ??? HX CAPSULE ENDOSCOPY N/A 08/12/2016 CAPSULE ENDOSCOPY (PILL CAM) performed by Willi Templeton MD at [facility] ??? HX CARDIAC CATHETERIZATION ??? HX CARDIAC SURGERY ??? HX CHOLECYSTECTOMY ??? HX COLONOSCOPY N/A 08/12/2016 COLONOSCOPY performed by Willi Templeton MD at [facility] ??? HX COLONOSCOPY 08/11/2016 COLONOSCOPY, INCOMPLETE DUE TO POOR PREP performed by Willi Templeton MD at [facility] ??? HX CORONARY ARTERY BYPASS GRAFT ??? HX EGJ N/A 08/11/2016 EGD /C CYTOLOGY performed by Willi Templeton MD at [facility] ??? HX EGJ N/A 08/11/2016 EGD /C BIOPSY performed by Willi Templeton MD at [facility] ??? HX EGJ N/A 03/11/2016 EGD /C HP ONE BIOPSY performed by Willi Templeton MD at [facility] ??? HX JOINT REPLACEMENT bilateral hip and right knee ??? HX KNEE REPLACEMENT RIGHT ??? HX STERNOTOMY partial ??? HX THYROID SURGERY 1956 ??? HX TONSILLECTOMY ??? LEFT HEART CATH N/A 08/03/2016 Left heart cath performed by Jose Ramon Rivera MD at [facility] ??? LEFT HEART CATH N/A 06/02/2009 LEFT HEART CATH performed by Horacio Sherman MD at [facility] [employer] Family History Problem Relation Name Age of [...] Resource Strain: Low Risk (07/16/2024) Received from [facility] Overall Financial Resource Strain (CARDIA) ??? How hard is it for you to pay for the very basics like food, housing, medical care, and heating?: Not hard at all Food Insecurity: No Food Insecurity (07/16/2024) Received from [facility] Hunger Vital Sign ??? Within the past 12 months, you worried that your food would run out before you got the money tobuy more.: Never true ??? Within the past 12 months, the food you bought just didn't last and you didn't have money to get more.: Never true Transportation Needs: No Transportation Needs (07/16/2024) Received from [facility] PRAPARE - Transportation ??? In the past 12 months, has lack of transportation kept you from medical appointments or from getting medications?: No ??? In the past 12 months, has lack of transportation kept you from meetings, work, or from gettingthings needed for daily living?: No Physical Activity: Inactive (09/05/2023) Received from [facility] [employer] [place], [place] Physical Activity ??? Number of minutes of exercise per week : 0 Stress: No Stress Concern Present (09/05/2023) Received from [facility] [employer] [place] Stress ??? Stress means a situation in which a person feels tense, restless, nervous, or anxious, or is unable to sleep at night because his or her mind is troubled all the time. Do you feel this kind of str...: Not at all Social Connections: Unknown (07/16/2024) Received from [facility] Social Connection and Isolation Panel ??? Are you , , , , never , or living with a partner?: Intimate Partner Violence: Not At Risk (07/16/2024) Received from [facility] Humiliation, Afraid, Rape, and Kick questionnaire [...] Housing Stability: Low Risk (07/16/2024) Received from [facility] Housing Stability Vital Sign ??? In the last 12 months, was there a time when you were not able to pay the mortgage or rent on time?: No ??? In the past 12 months, how many times have you moved where you were living?: 0 ??? At any time in the past 12 months, were you homeless or living in a [place] health care facility (including now)?: No Current Outpatient Medications Medication [...] mg by mouth Once Daily. ??? Insulin [place], Disposable, (PEN NEEDLE) 32 gauge x 5/32 [...] fluticasone propionate (FLONASE) 50 mcg/Actuation nasal spray [place] 2 Sprays in nose Once Daily. (in [...] sodium chloride (SALINE NASAL MIST) 0.65 % [place] 2 Sprays in nose Every 4 hours [...] Description 11/06/2024 11:00 AM EDT [facility] [place] [address] [place], [facility], [address] [place] [phone] Micha Washington MD [address] [place] [address] [place] [address] Molly Figueroa PA-C [address] [place] [address] documented as of this encounter Procedures Procedure [...] - 5.60 u[iU]/mL 08/06/2024 5:08 PM EDT [facility] 08/06/2024 4:31 PM EDT 08/06/2024 4:31 PM EDT us Micha Washington MD CHEMISTRY ORDERABLES Final Resul t [facility] [address] [place], [place] [id number] [place] [address] LAB [address] [place] [address] * Lipid Panel (08/06/2024 4:31 PM EDT) CHOLESTEROL 124 10 - 200 mg/dL 08/06/2024 5:00 PM EDT [facility] TRIGLYCERIDE 112 46 - 236 mg/dL 08/06/2024 5:00 PM EDT [facility] HDL 51.0 27.0 - 67.0 mg/dL 08/06/2024 5:00 PM EDT [facility] VLDL 22.4 mg/dL 08/06/2024 5:00 PM EDT [facility] LDL 50.6 mg/dL 08/06/2024 5:00 PM EDT [facility] Comment: CAP STANDARDIZED LDL-CHOLESTEROL VALUES <130-DESIRABLE 130-159 BORDERLINE/HIGH RISK >160-HIGH RISK Friedewald equation was used for calculating LDL = Tot. Cholesterol - HDL - (TG/5). RISK 1, MALE 2.43 08/06/2024 5:00 PM EDT [facility] Comment: TOTAL CHOL/HDL 1/2 AVERAGE 3.43 AVERAGE 4.97 2 X AVERAGE 9.55 3 X AVERAGE 23.39 RISK 2, MALE 0.99 08/06/2024 5:00 PM EDT [facility] Comment: LDL/HDL 1/2 AVERAGE 1.00 AVERAGE 3.55 2 X AVERAGE 6.25 3 X AVERAGE 7.99 RISK 1, FEMALE 2.43 08/06/2024 5:00 PM EDT [facility] Comment: TOTAL CHOL/HDL 1/2 AVERAGE 3.27 AVERAGE 4.44 2 X AVERAGE 7.05 3 X AVERAGE 11.04 RISK 2, FEMALE 0.99 08/06/2024 5:00 PM EDT [facility] Comment: LDL/HDL 1/2 AVERAGE 1.47 AVERAGE 3.22 2 X AVERAGE 5.03 3 X AVERAGE 6.14 08/06/2024 4:31 PM EDT 08/06/2024 4:31 PM EDT us Micha Washington MD CHEMISTRY ORDERABLES Final Resul t [facility] [address] [place], [place] [id number] [place] [address] LAB [address] [place] [address] * (ABNORMAL) Hemoglobin A1C (08/06/2024 4:31 PM EDT) HEMOGLOBIN A1C 7.6(H) 3.0 - 6.0 % 08/06/2024 4:43 PM EDT [facility] 08/06/2024 4:31 PM EDT 08/06/2024 4:31 PM EDT Micha Washington MD CHEMISTRY ORDERABLES Final Resul t Performing Organization Address [facility] Co de Phone Number [facility] [address] [place] [address] [facility] [address] [place] [address] * Microalbumin, Random Urine (Includes creatinine w/ratio) (08/06/2024 4:17 PM EDT) CREATININE URINE 51.6 mg/dL 08/07/19 4:46 PM EDT [facility] MICROALBUMIN,U,RANDO M 0.90 0.00 - 1.80 mg/dL 08/06/2024 4:46 PM EDT [facility] MICROALB CREAT RATIO 17.4 ug/mg 07/10 4:46 PM EDT [facility] Comment: CATEGORY SPOT COLLECTION Normal <30 ug/mg creatinine Microalbuminuria 30-300 ug/mg creatinine Clinical albuminuria >300 ug/mg creatinine 08/06/2024 4:17 PM EDT 08/06/2024 4:17 PM EDT Micha Washington MD CHEMISTRY ORDERABLES Final Resul t Performing Organization Address [facility] Co de Phone Number [facility] [address] [place] [address] [facility] [address] [place] [address] documented in this encounter Visit Diagnoses Diagnosis [...] insulin documented in this encounter Care Teams Chemist Food Relationship Specialty Start Date End Date Elijah Serra DO [address] [place] [address] PCP - General Family Medicine 07/21/23 Willi Templeton MD [address] [place] [address] Gastroenterology 02/25/16 María Andre MD [address] [place] [address] Gastroenterology 03/08/16 Selene Rodriguez APRN [address] [place] [address] [address] [place] [address] Gastroenterology 08/23/16 Mariah Flowers APRN [address] [address] [place] [address] Nurse Practitioner 08/26/16 Neyda Beltran MD [address] [place] [address] Nephrology 03/17/17 Ryanne Roblero MD [address] [place] [address] Rheumatology 03/01/18 Mi Martin APRN [address] [place] [address] [address] [place] [address] Nurse Practitioner Nurse Practitioner 04/16/19 Micha Washington MD [address] [place] [address] Endocrinology 08/06/24 08/06/24 documented as of this encounter
[2024-08-20] VITALS (11 sets, daily range): BP systolic 121–158; BP diastolic 62–86; PULSE 62–70; RESP 11–31; TEMP 36.8; O2SAT 94–98; BMI 25.2
--- NOTE | 2024-08-20 14:58 | ECG_ITS ---
APPROVED REPORT Exam: Resting ECG HR:68 bpm ECG Measurements Heart Rate 68 AXES [place] 172 P 48 QRSd 117 QRS -34 QT 434 T 24 QTc 451 Conclusion SINUS RHYTHM LEFT AXIS DEVIATION [QRS AXIS < -30] No STEMI Electronically signed by : MICHELLE AWAD, 08/21/2024 00:08:35
--- OUTSIDE RECORDS SUMMARY | 2024-08-20 15:23 | XMS_ITS | Encounter Summary ---
Author Organization [employer] ([place], [place], [place], [place]) Address [address] [place] [address] Care Team Providers Care Skein Washer Name Role Phone Elijah Serra DO Primary Care Provider [phone] Encounter Details Date Type Department Care Team (Late st Contact Info) Description 08/18/2020 Transcribed Document [facility] Family Medicine [address] [place] [address] ProviderMichael MD [address] [place] [address] Social History Tobacco Use Types [...] Source : Measured Height Entry Format : Benzie Height, Feet : 5 ft(Converted to: 152 cm, 60 Inch) Height, Inches : 9 Inch(Converted to: 0 ft 9 Inch, 22.86 cm) Clinical Height : 175.26 cm Weight Source : Standing scale Weight Entry Format : Benzie Clinical Dosing Weight : 97.73 kg Weight, Pounds : 215 lb Weight, Ounces : 0 oz Body Surface Area (BSA) : 2.13 m2 Body Mass Index : 31.8 kg/m2 (HI) [place] Body Weight : 70 kg RAMON GRAMAJO [...] History of Anesthesia Reaction : None RAMON GARMAJO RN - 08/18/2020 10:24 EDT Functional Assessment Living Situation : Home Patient Lives With : Spouse Current Home Treatments : Blood glucose monitoring RAMON GRAMAJO RN - 08/18/2020 10:24 EDT [place] Suicide Severity Rating Scale (C-SSRS) CSSRS Past [...] Contact #2 Emergency Contact #2 Relationship : dapresbyterian kaseman hospitaler Primary Language : [place] Citizen Communication Barrier : None Auto Transport Driver Needed : RAMON Ugalde RN - 08/18/2020 [...] Level : 46 or > High Risk [place] Fall Interventions : Adequate lighting, Assistive devices [...] on filedocumented in this encounter Care Teams Skein Washer Relationship Specialty Start Date End Date Elijah Serra, DO [address] [facility] [address] [place] [address] PCP - General Family Medicine 03/11/23 documented as of this encounter
--- OUTSIDE RECORDS SUMMARY | 2024-08-20 15:23 | XMS_ITS | Encounter Summary ---
Author Organization [employer] ([place], [place], [place], [place]) Address [address] [place] [address] Care Team Providers Care Shop Teacher Name Role Phone Elijah Serra DO Primary Care Provider [phone] Encounter Details Date Type Department Care Team (Late st Contact Info) Description 08/18/2020 Transcribed Document [facility] Family Medicine [place] [address] ProviderMichael MD [address] [place] [address] Social History Tobacco Use Types [...] Diaz MD - 08/18/2020 1:38 PM CDT [facility] [place] [address] SOLEDAD DOWD :1955 Visit Time:08/18/2020 Your Visit Summary Your Care Team Admitting Physician - JOHANA BARNEY MD-CAR Attending Physician - JOHANA BARNEY MD-SARA Primary Care Physician - ROSEMARIE, ELIJAH C, DO-FAM Referring Physician - JOHANA BARNEY MD-CAR Your Diagnosis Abnormal cardiovascular function study Atherosclerotic heart disease of [place] coronary artery without angina pectoris, Atherosclerotic heart disease of [place] coronary artery without angina pectoris Discharge Vitals [...] Appointment has been made Where: [address] [facility] [place], [place] [email or web address] FLENS (1) Medications Take your medications faithfully. Do [...] Document Reviewed: 02/26/2011 ExitCare?? Patient Information ??2013 [employer]. Angiogram, Care After This sheet gives you [...] cannot use soap and water, use hand vice president tax. ? Change your bandage as told by [...] (urine) clear or pale yellow. ??? Take dihm-klr-jjfsepr and prescription medicines only as told by [...] provider. Document Revised: 01/06/2018 Document Reviewed: 01/18/2017 [employer] Patient Education ?? 2020 [employer] Coronary Angiogram A coronary angiogram is [...] including vitamins, herbs, eye drops, creams, and hvff-jhe-hzkdhlw medicines. ??? Any problems you or family [...] do not normally take it. ??? Taking dqsz-rco-pbshsvy medicines, vitamins, herbs, and supplements. General instructions [...] provider. Document Revised: 08/16/2019 Document Reviewed: 08/16/2019 [employer] Patient Education ?? 2020 [employer] Coronary Artery Disease, Male Coronary artery disease (CAD) is a condition in which the arteries that lead to the heart (coronary arteries) become narrow or blocked. The narrowing or blockage can lead to decreased blood flow to the heart. Prolonged reduced blood flow can cause a heart attack (myocardial infarction or WI). This condition may also be called coronary [...] these instructions at home: Medicines ??? Take oawg-srh-lpjukpb and prescription medicines only as told by [...] provider. Document Revised: 10/13/2018 Document Reviewed: 10/03/2018 [employer] Patient Education ?? 2020 [employer]. Heart-Healthy Eating Plan Many factors influence your [...] Fats and oils Meat fat, or shortening. May butter, hydrogenated oils, palm oil, coconut oil, [...] provider. Document Revised: 03/03/2018 Document Reviewed: 03/03/2018 [employer] Patient Education ?? 2020 [employer] FAQ ??? Patient COVID-19 testing Why [...] through the local health department and the [place] Department for Public Health. Those organizations are [...] and need to call 911, notify the yardage control operator forming that you have, or think you might [...] clean your hands with an alcohol-based hand vice president tax that contains at least 60% alcohol. Clean your hands often. ??? Wash hands: Wash your hands often with soap and water for at least 20 seconds when visibly dirty. This is especially important after blowing your nose, coughing or sneezing, and going to the bathroom, and before eating or preparing food. ??? Hand vice president tax: Use an alcohol-based hand vice president tax with at least 60% alcohol, covering all [...] and water or put them in the bobbin fixer. Clean all high-touch surfaces every day. Clean [...] or body fluids on them. ??? Household shrimp peeler and disinfectants: Clean the area or item [...] list of disinfectants can be found here: https://www.epa.gov/pesticide-registration/rumv-n-gbchbfqnzfqzt-gxx-zdufsgb-gj rs-cov-2 What you need to know about coronavirus disease 2019 (COVID-19) Missing Image - the embedded image is not supported https://www.cdc.gov/coronavirus/2019-ncov/ HYPERLINK https://www.cdc.gov/coronavirus/2019-ncov/cases-in-us.html cases-in-us.html. How does COVID-19 spread? The virus that causes COVID-19 probably emerged from an animal source, but now it seems to be spreading from person to person. It???s important to note that fzdwsr-pp-vjcdag spread can happen on a continuum. Some [...] least 20 seconds. Use an alcohol-based hand vice president tax that contains at least 60% alcohol if [...] Assistance with quitting is available by contacting 9-689-IRFQ-NOW. This is a free resource providing counseling, [...] was given the opportunity to ask questions. Patient/Latin Dance Instructor Name: Patient/Latin Dance Instructor Signature: Relationship to Patient: Clinician/Hospital Latin Dance Instructor Signature: Date: documented in this encounter Plan of Treatment Not on file documented as of this encounter Visit Diagnoses Not on filedocumented in this encounter Care Teams Shop Teacher Relationship Specialty Start Date End Date Elijah Serra, DO [address] [facility] [address] [place] [address] PCP - General Family Medicine 03/11/23 documented as of this encounter
--- OUTSIDE RECORDS SUMMARY | 2024-08-20 15:23 | XMS_ITS | Encounter Summary ---
Author Organization [employer] ([place], [place], [place], [place]) Address [address] [place] [address] Care Team Providers Care Assembler Metal Building Name Role Phone Elijah Serra DO Primary Care Provider [phone] Encounter Details Date Type Department Care Team (Late st Contact Info) Description 08/18/2020 Transcribed Document [facility] [place] [address] ProviderMichael MD [address] [place] [address] Social History Tobacco Use Types [...] angiogram. INDICATIONS: 1. Abnormal cardiovascular study. 2. [place]-vessel coronary artery disease with history of coronary artery bypass grafting. DESCRIPTION OF PROCEDURE: After having obtained written consent, the patient was brought to cardiac catheterization laboratory in a fasting condition. The right groin was prepped and draped. 2% lidocaine injected for local anesthesia. Right femoral artery was accessed with a micropuncture technique and a 6-Arabic sheath was placed and secured. A 6-Arabic Sim catheters were then used to reach [...] is patent with good flow into the [place]-vessel. SVG to the OM is patent. SVG [...] with medical management and risk factor modification. /[id number] Ricky Cross MD SR/AQ / SR / MODL /[id number] CC: JUANY Gooden Electronically signed by Florencia, [facility] Conversion Lace Mender Cerner at 05/25/2022 6:24 PM CDT documented in this encounter Plan of Treatment Not on file documented as of this encounter Visit Diagnoses Not on filedocumented in this encounter Care Teams Assembler Metal Building Relationship Specialty Start Date End Date Elijah Serra, DO [address] [address] PCP - General Family Medicine 03/11/23 documented as of this encounter
--- OUTSIDE RECORDS SUMMARY | 2024-08-20 15:23 | XMS_ITS | Encounter Summary ---
Author Organization [employer] ([place], [place], [place], [place]) Address [address] [place] [address] Care Team Providers Care Bartender Helper Name Role Phone Elijah Serra DO Primary Care Provider [phone] Encounter Details Date Type Department Care Team (Late st Contact Info) Description 08/18/2020 Transcribed Document [facility] [place] Family Medicine [address] [place] [address] ProviderMichael MD [address] [place] [address] Social History Tobacco Use Types [...] Framework : Somewhat integrated, provides some strength/resource Confucianist Preference : Episcopalian Spiritual Leader Requested : No Restoration Sacrament of the Sick/Anointing Needed : No Furniture Associate Follow-up Needed : No Jun Portillo Chaplain-Non [...] notarized. Cp did accomodate the AD request. Furniture Associate provided pastoral presence, support, hospitality, and prayer. Spirital Assessment Comment/Summary Report : SPIRITUAL ASSESSMENT COMMENT/SUMMARY No qualifying data available. Jun Portillo Chaplain-Non Cert - 08/18/2020 13:41 EDT Interventions Advance Directive Information Provided : Yes Advance Directive Comment : AD Completed. Emotional Support : Established trust, Hope strengths identified, Meaning strengths identified, Relationship strengths identified Spiritual and Confucianist : Prayer shared Change, Adjustment and Loss : End of life discussion/care Ethics, Advocacy and Referral : Advocated for patient Jun Portillo Chaplain-Non Cert - 08/18/2020 13:41 EDT documented in this encounter Plan of Treatment Not on file documented as of this encounter Visit Diagnoses Not on filedocumented in this encounter Care Teams Bartender Helper Relationship Specialty Start Date End Date Elijah Serra DO 100 [facility] 1ST [place] [address] PCP - General Family Medicine 03/11/23 documented as of this encounter
--- OUTSIDE RECORDS SUMMARY | 2024-08-20 15:23 | XMS_ITS | Encounter Summary ---
Author Organization [employer] ([place], [place], [place], [place]) Address [address] [place] [address] Care Team Providers Care Animal Laboratory Technician Name Role Phone Elijah Serra DO Primary Care Provider [phone] Encounter Details Date Type Department Care Team (Late st Contact Info) Description 08/18/2020 Transcribed Document [facility] [place] [address] [place] [address] ProviderMichael MD [address] [place] [address] Social History Tobacco Use Types [...] 08/18/2020 13:36 EDT Electronically signed by Florencia [facility] Conversion Instrument Engineer Cerner at 05/25/2022 6:30 PM CDT documented in this encounter Plan of Treatment Not on file documented as of this encounter Visit Diagnoses Not on filedocumented in this encounter Care Teams Animal Laboratory Technician Relationship Specialty Start Date End Date Elijah Serra, DO 100 [facility] 1ST [place] [address] PCP - General Family Medicine 03/11/23 documented as of this encounter
--- OUTSIDE RECORDS SUMMARY | 2024-08-20 15:24 | XMS_ITS | Encounter Summary ---
Author Organization [facility] Address [address] [place] [address] Support Name Relationship Address Phone Stepan Gold Personal Relationship [address] [place] [address] Mi Gold Personal Relationship Unknown Rosalind Mai Personal Relationship Unknown Vivi Ward Personal Relationship Unknown Care Team Providers Care Production Control Coordinator Name Role Phone Yehuda Barger MD Primary Care Provider [phone] Milton Crum DO Primary Care Provider Miky Benton MD Primary Care Provider [phone] Provider, Historical Unavailable Unavailable Willi Templeton MD Unavailable [phone] María Andre MD Unavailable [phone] Selene Rodriguez REFRACTORY BRICKLAYER Unavailable Mariah Flowers REFRACTORY BRICKLAYER Unavailable [phone] Neyda Beltran MD Unavailable [phone] Ryanne Roblero MD Unavailable Unavailable Mi Martin APRN Unavailable [phone] Elijah Serra DO Primary Care Provider [phone] Micha Washington MD Unavailable Encounter Details Date Type Department Care Team (Late st Contact Info) Description 03/01/2004 Historical Encounter Global Horacio Sherman MD [address] [place] [address] Social History Tobacco Use Types Packs/Day Years [...] Description 11/06/2024 11:00 AM EDT Office Visit [facility] [address], [address] [place] [address], [address] [place] [address] Micha [place] MD [address] [place], [place] [address] Molly Figueroa PA-C [address] [facility] [address] [place], [place] [address] documented as of this encounter Visit Diagnoses Not on filedocumented in this encounter Additional Health Concerns Infection Onset Date Last Indicated Resolved Time 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 02/24/2017 02/22/2017 02/22/2017 04/02/2024 9:[address] documented as of this encounter Care Teams Production Control Coordinator Relationship Specialty Start Date End Date Yehuda Barger MD [address] [place] [address] [facility] [place] [address] PCP - General 02/16/09 04/13/23 Milton Crum DO [address] [place] [address] [address] [facility] [place] [address] PCP - General 01/08/09 02/15/09 Miky Louis MD [address] [facility] [place] [address] PCP - General 12/26/07 01/07/09 Elijah Serra DO [address] [place] [address] PCP - General Family Medicine 07/21/23 Provider, Historical 02/16/16 08/25/16 Willi Templeton MD [address] [place] [address] Gastroenterology 02/25/16 María Andre MD 613 [facility] [address] [place] [address] [place], [place] [address] Gastroenterology 03/08/16 Selene Rodriguez APRN [address] [place] [address] [address] [place] [address] Gastroenterology 08/23/16 Mariah Flowers APRN [address] [place] [address] [address] [place] [address] Nurse Practitioner 08/26/16 Neyda Beltran MD [address] [facility] [address] [place] [address] Nephrology 03/17/17 Ryanne Roblero MD [address] [place] [address] [address] [place] [address] Rheumatology 03/01/18 Mi Martin APRN [address] [place] [address] 102 [place] [address] Nurse Practitioner Nurse Practitioner 04/16/19 Micha Washington MD [address] [place] [address] [address] [place], [place] [address] Endocrinology 08/06/24 08/06/24 documented as of this encounter
--- OUTSIDE RECORDS SUMMARY | 2024-08-20 15:24 | XMS_ITS | Encounter Summary ---
Author Organization [facility] Address [address] [place] [address] Support Name Relationship Address Phone Stepan Gold Personal Relationship [address] [place] [address] Mi Gold Personal Relationship Unknown Roslaind Mai Personal Relationship Unknown + [phone] Vivi Ward Personal Relationship Unknown [phone] Care Team Providers Care Asp Net Software Developer Name Role Phone Yehuda Barger MD Primary Care Provider [phone] Milton Crum DO Primary Care Provider Miky Benton MD Primary Care Provider [phone] Provider, Historical Unavailable Unavailable Willi Templeton MD Unavailable [phone] María Andre MD Unavailable [phone] Selene Rodriguez PEOPLESOFT HCM DEVELOPER Unavailable Mariah Flowers PEOPLESOFT HCM DEVELOPER Unavailable [phone] Neyda Beltran MD Unavailable [phone] Ryanne Roblero MD Unavailable Unavailable Mi Martin APRN Unavailable [phone] Elijah Serra DO Primary Care Provider [phone] Micha Washington MD Unavailable Encounter Details Date Type Department Care Team (Late st Contact Info) Description 04/28/2005 Historical Encounter Global Yehuda Barger MD [address] [place] [address] Social History Tobacco Use Types Packs/Day Years [...] Description 11/06/2024 11:00 AM EDT Office Visit [facility] Endocrinology [place] [address] [place], [facility] [place] [address], [address] [place] [address] Micha Washington MD [address] [place] [address] [place] [address] Molly Figueroa PA-C [address] [place] [address] [place] [address] documented as of this encounter Visit Diagnoses Not on filedocumented in this encounter Additional Health Concerns Infection Onset Date Last Indicated Resolved Time 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 02/24/2017 02/22/2017 02/22/2017 04/02/2024 9:[address] documented as of this encounter Care Teams Asp Net Software Developer Relationship Specialty Start Date End Date Yehuda Barger MD [address] [place] [address] PCP - General 02/16/09 04/13/23 Milton Crum DO [address] [place] [address] PCP - General 01/08/09 02/15/09 Miky Louis MD [address] [place] [address] PCP - General 12/26/07 01/07/09 Elijah Serra DO 100 [place] [address] PCP - General Family Medicine 07/21/23 Provider, Historical 02/16/16 08/25/16 Willi Templeton MD [address] [facility] [address] [place] [address] Gastroenterology 02/25/16 María Andre MD [address] [place] [address] [address] [place] [address] Gastroenterology 03/08/16 Selene Rodriguez APRN [address] [place] [address] Gastroenterology 08/23/16 Mariah Flowers APRN [address] [place] [address] 510 [place] [address] Nurse Practitioner 08/26/16 Neyda Beltran MD [address] [address] [place] [address] Nephrology 03/17/17 Ryanne Roblero MD [address] [address] [place] [address] Rheumatology 03/01/18 Mi Martin APRN [address] [place] [address] [address] [place] [address] Nurse Practitioner Nurse Practitioner 04/16/19 Micha Washington MD [address] [place] [address] [address] [place] [address] Endocrinology 08/06/24 08/06/24 documented as of this encounter
--- OUTSIDE RECORDS SUMMARY | 2024-08-20 15:24 | XMS_ITS | Encounter Summary ---
Author Organization [facility] Address [address] [place] [address] Support Name Relationship Address Phone Stepan Gold Personal Relationship [address] [place] [address] Mi Gold Personal Relationship Unknown Rosalind Mai Personal Relationship Unknown + [phone] Vivi Ward Personal Relationship Unknown [phone] Care Team Providers Care Records Administrator Name Role Phone Yehuda Barger MD Primary Care Provider [phone] Milton Crum DO Primary Care Provider Miky Benton MD Primary Care Provider [phone] Provider, Historical Unavailable Unavailable Willi Templeton MD Unavailable [phone] María Andre MD Unavailable [phone] Selene Rodriguez SOUND EFFECTS MANAGER Unavailable [phone] Mariah Flowers SOUND EFFECTS MANAGER Unavailable [phone] Neyda Beltran MD Unavailable [phone] Ryanne Roblero MD Unavailable Unavailable Mi Martin APRN Unavailable [phone] Elijah Serra DO Primary Care Provider [phone] Micha Washington MD Unavailable Encounter Details Date Type Department Care Team (Late st Contact Info) Description 04/24/2002 Historical Encounter Global Rian Randall MD [address] [place] [address] Social History Tobacco Use Types Packs/Day Years [...] Description 11/06/2024 11:00 AM EDT Office Visit [facility] [address], [address] [place] [address], [address] [place] [address] Micha Washington MD [address] [place], [place] [address] Molly Figueroa PA-C [address] [place] [address] [address] [place], [place] [address] documented as of this encounter Visit Diagnoses Not on filedocumented in this encounter Additional Health Concerns Infection Onset Date Last Indicated Resolved Time 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 02/24/2017 02/22/2017 02/22/2017 04/02/2024 9:[address] documented as of this encounter Care Teams Records Administrator Relationship Specialty Start Date End Date Yehuda Barger MD [address] [place] [address] [place] [address] PCP - General 02/16/09 04/13/23 Milton Crum DO [address] [place] [address] [place] [address] PCP - General 01/08/09 02/15/09 Miky Louis MD [address] [place] [address] PCP - General 12/26/07 01/07/09 Elijah Serra DO 100 [place] [address] PCP - General Family Medicine 07/21/23 Provider, Historical 02/16/16 08/25/16 Willi Templeton MD [address] [facility] [address] [place] [address] Gastroenterology 02/25/16 María Andre MD [address] [place] [address] [address] [place] [address] Gastroenterology 03/08/16 Selene Rodriguez APRN [address] [place] [address] Gastroenterology 08/23/16 Mariah Flowers APRN [address] [place] [address] 510 [place] [address] Nurse Practitioner 08/26/16 Neyda Beltran MD [address] [address] [place] [address] Nephrology 03/17/17 Ryanne Roblero MD [address] [address] [place] [address] Rheumatology 03/01/18 Mi Martin APRN [address] [place] [address] Dr [address] [place] [address] Nurse Practitioner Nurse Practitioner 04/16/19 Micha Washington MD [address] [place] [address] [address] [place] [address] Endocrinology 08/06/24 08/06/24 documented as of this encounter
--- OUTSIDE RECORDS SUMMARY | 2024-08-20 15:24 | XMS_ITS | Encounter Summary ---
Author Organization [facility] Address [address] [place] [address] Support Name Relationship Address Phone Stepan Gold Personal Relationship [address] [place] [address] Mi Gold Personal Relationship Unknown Rosalind Mai Personal Relationship Unknown [phone] Vivi Ward Personal Relationship Unknown Care Team Providers Care Senior Laboratory Technician Name Role Phone Yehuda Barger MD Primary Care Provider Willi Templeton MD Unavailable [phone] María Andre MD Unavailable Selene Rodriguez HEAVY EQUIPMENT SERVICE MANAGER Unavailable Mariah Flowers HEAVY EQUIPMENT SERVICE MANAGER Unavailable [phone] Neyda Beltran MD Unavailable Ryanne Roblero MD Unavailable Unavailable Mi Martin HEAVY EQUIPMENT SERVICE MANAGER Unavailable [phone] Elijah Serra DO Primary Care Provider [phone] Micha Washington MD Unavailable Reason for Visit * Reason Onset Date Comments Results - Lab 05/01/2020 Encounter Details Date Type Department Care Team (Late st Contact Info) Description 05/01/2020 Telephone Patient Access Center [address] [place] [address] Toya Carpenter, RN Results - Lab Social [...] his diabetes like he used to. TO/RV/Donell Mckeon APRN/ Belem Carpenter RN documented in this encounter Plan of Treatment Upcoming Encounters Date Type Department Care Team (Late st Contact Info) Description 11/06/2024 11:00 AM EDT Office Visit [facility] [address] [place], [facility], [address] [place] [address] Micha Washington MD [address] [place] [id number] Molly Figueroa PA-C [address] [place] [id number] documented as of this encounter Visit Diagnoses Not on filedocumented in this encounter Additional Health Concerns Infection Onset Date Last Indicated Resolved Time 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 02/24/2017 02/22/2017 02/22/2017 04/02/2024 9:[address] documented as of this encounter Care Teams Senior Laboratory Technician Relationship Specialty Start Date End Date Yehuda Barger MD [address] [place] [address] [place] [address] PCP - General 02/16/09 04/13/23 Elijah Serra DO 100 [place] [address] PCP - General Family Medicine 07/21/23 Willi Templeton MD [address] [place] [address] Gastroenterology 02/25/16 María Andre MD [address] [facility] [place] [address] Gastroenterology 03/08/16 Selene Rodriguez APRN 1729 [facility] [address] [place], [place] [address] Gastroenterology 08/23/16 Mariah Flowers APRN [address] [place] [address] 510 [place] [address] Nurse Practitioner 08/26/16 Neyda Beltran MD [address] [place] [address] [address] [place] [address] Nephrology 03/17/17 Ryanne Roblero MD [address] [place] [address] [address] [place] [address] Rheumatology 03/01/18 Mi Martin APRN [address] [place] [address] 102 [place] [address] Nurse Practitioner Nurse Practitioner 04/16/19 Micha Washington MD [address] [place] [address] [address] [place] [address] Endocrinology 08/06/24 08/06/24 documented as of this encounter
--- OUTSIDE RECORDS SUMMARY | 2024-08-20 15:24 | XMS_ITS | Encounter Summary ---
Author Organization [facility] Address [address] [place] [address] Support Name Relationship Address Phone Stepan Gold Personal Relationship [address] [place] [address] Mi Gold Personal Relationship Unknown Rosalind Mai Personal Relationship Unknown + [phone] Vivi Ward Personal Relationship Unknown [phone] Care Team Providers Care Surface Ship Usw Supervisor Name Role Phone Yehuda Barger MD Primary Care Provider [phone] Milton Crum DO Primary Care Provider Miky Benton MD Primary Care Provider [phone] Provider, Historical Unavailable Unavailable Willi Templeton MD Unavailable [phone] María Andre MD Unavailable [phone] Selene Rodriguez HEAD FILTER PRESS TENDER Unavailable [phone] Mariah Flowers HEAD FILTER PRESS TENDER Unavailable [phone] Neyda Beltran MD Unavailable [phone] Ryanne Roblero MD Unavailable Unavailable Mi Martin APRN Unavailable [phone] Elijah Serra DO Primary Care Provider [phone] Micha Washington MD Unavailable Encounter Details Date Type Department Care Team (Late st Contact Info) Description 04/03/2002 Historical Encounter Global Rian Randall MD [address] [place] [address] Social History Tobacco Use Types Packs/Day Years [...] Description 11/06/2024 11:00 AM EDT Office Visit [facility] [address], Medical [place] [address], [address] [place] [address] Micha Washington MD [address] [place], [place] [address] Molly Figueroa PA-C [address] [place] [address] [address] [place], [place] [phone] documented as of this encounter Visit Diagnoses Not on filedocumented in this encounter Additional Health Concerns Infection Onset Date Last Indicated Resolved Time 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 02/24/2017 02/22/2017 02/22/2017 04/02/2024 9:[address] documented as of this encounter Care Teams Surface Ship Usw Supervisor Relationship Specialty Start Date End Date Yehuda Barger MD [address] [place] [address] [place] [address] PCP - General 02/16/09 04/13/23 Milton Crum DO [address] [place] [address] [place] [address] PCP - General 01/08/09 02/15/09 Miky Louis MD [address] [place] [address] PCP - General 12/26/07 01/07/09 Elijah Serra DO 100 [place] [address] PCP - General Family Medicine 07/21/23 Provider, Historical 02/16/16 08/25/16 Willi Templeton MD [address] [facility] [address] [place] [address] Gastroenterology 02/25/16 María Andre MD [address] [place] [address] [address] [place] [address] Gastroenterology 03/08/16 Selene Rodriguez APRN [address] [place] [address] Gastroenterology 08/23/16 Mariah Flowers APRN [address] [place] [address] 510 [place] [address] Nurse Practitioner 08/26/16 Neyda Beltran MD [address] [address] [place] [address] Nephrology 03/17/17 Ryanne Roblero MD [address] [address] [place] [address] Rheumatology 03/01/18 Mi Martin APRN [address] [place] [address] Dr [address] [place] [address] Nurse Practitioner Nurse Practitioner 04/16/19 Micha Washington MD [address] [place] [address] [address] [place] [address] Endocrinology 08/06/24 08/06/24 documented as of this encounter
--- OUTSIDE RECORDS SUMMARY | 2024-08-20 15:24 | XMS_ITS | Encounter Summary ---
Author Organization [facility] Address [address] [place] [address] Support Name Relationship Address Phone Stepan Gold Personal Relationship [address] [facility] [place] [address] Mi Asif Personal Relationship Unknown Rosalind Mai Personal Relationship Unknown [phone] Vivi Ward Personal Relationship Unknown [phone] Care Team Providers Care Post Acute Care Registered Nurse Name Role Phone Lesley Grace MD Primary Care Provider [phone] Willi Templeton MD Unavailable María Andre MD Unavailable Selene Rodriguez DISTRIBUTION ENGINEERING TECHNOLOGIST Unavailable Mariah Flowers DISTRIBUTION ENGINEERING TECHNOLOGIST Unavailable Neyda Beltran MD Unavailable Ryanne Roblero MD Unavailable Unavailable Mi Martin DISTRIBUTION ENGINEERING TECHNOLOGIST Unavailable [phone] Elijah Serra DO Primary Care Provider Micha Washington MD Unavailable Reason for Visit * Reason Onset Date Comments Medications Refill 01/26/2019 Encounter Details Date Type Department Care Team (Late st Contact Info) Description 01/26/[address] LESLEY GRACE MD, [facility] [address] [facility] [address] [place] [phone] Lesley Grace MD [address] [place] [address] [place] [address] Neuropathy Social History Tobacco Use Types Packs/Day [...] 11:00 AM EDT Office Visit [facility] [address] [place] [address], [facility] [address] [place] [phone] Micha Washington MD [address] [place] [phone] Molly Figueroa PA-C [address] [place] [address] [place] [phone] documented as of this encounter Visit Diagnoses Diagnosis Neuropathy Mononeuritis of unspecified site documented in this encounter Additional Health Concerns Infection Onset Date Last Indicated Resolved Time 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 02/24/2017 02/22/2017 02/22/2017 04/02/2024 9:[address] documented as of this encounter Care Teams Post Acute Care Registered Nurse Relationship Specialty Start Date End Date Lesley Grace MD [address] [place] [address] [place] [address] PCP - General 02/16/09 04/13/23 Elijah Serra DO 100 [place] [address] PCP - General Family Medicine 07/21/23 Willi Templeton MD [address] [place] [address] [address] [place] [address] Gastroenterology 02/25/16 María Andre MD [address] [place] [address] [address] [place] [address] Gastroenterology 03/08/16 Selene Rodriguez APRN [address] [place] [address] 203 [place] [address] Gastroenterology 08/23/16 Mariah Flowers APRN [address] [place] [address] 510 [place] [address] Nurse Practitioner 08/26/16 Neyda Beltran MD [address] [place] [address] [address] [place] [address] Nephrology 03/17/17 Ryanne Roblero MD [address] [place] [address] [address] [place] [address] Rheumatology 03/01/18 Mi Martin APRN [address] [place] [address] [address] [place] [address] Nurse Practitioner Nurse Practitioner 04/16/19 Micha Washington MD [address] [place] [address] [address] [place] [address] Endocrinology 08/06/24 08/06/24 documented as of this encounter
--- OUTSIDE RECORDS SUMMARY | 2024-08-20 15:24 | XMS_ITS | Encounter Summary ---
Author Organization [facility] Address [address] [place] [address] Support Name Relationship Address Phone Stepan Gold Personal Relationship [address] [place] [address] Mi Gold Personal Relationship Unknown [phone] Rosalind Mai Personal Relationship Unknown + [phone] Vivi Ward Personal Relationship Unknown [phone] Care Team Providers Care Caisson Worker Name Role Phone Yehuda Barger MD Primary Care Provider [phone] Milton Crum DO Primary Care Provider Miky Benton MD Primary Care Provider [phone] Provider, Historical Unavailable Unavailable Willi Templeton MD Unavailable [phone] María Andre MD Unavailable [phone] Selene Rodriguez ROD AND TUBE STRAIGHTENER Unavailable [phone] Mariah Flowers ROD AND TUBE STRAIGHTENER Unavailable [phone] Neyda Beltran MD Unavailable [phone] Ryanne Roblero MD Unavailable Unavailable Mi Martin APRN Unavailable [phone] Elijah Serra DO Primary Care Provider [phone] Micha Washington MD Unavailable Encounter Details Date Type Department Care Team (Late st Contact Info) Description 04/05/2002 Historical Encounter [facility] Social History Tobacco Use Types Packs/Day Years [...] Description 11/06/2024 11:00 AM EDT Office Visit [facility] [address], [facility] [place], [address] [place] [phone] Micha Washington MD [address] [place] [address] [place] [address] [phone] Molly Figueroa PA-C [address] [place] [address] [phone] documented as of this encounter Visit Diagnoses Not on filedocumented in this encounter Additional Health Concerns Infection Onset Date Last Indicated Resolved Time 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 02/24/2017 02/22/2017 02/22/2017 04/02/2024 9:[address] documented as of this encounter Care Teams Caisson Worker Relationship Specialty Start Date End Date Yehuda Barger MD [address] [place] [address] [place] [address] PCP - General 02/16/09 04/13/23 Milton Crum DO [address] [place] [address] [place] [address] PCP - General 01/08/09 02/15/09 Miky Louis MD [address] [facility] [place] [address] PCP - General 12/26/07 01/07/09 Elijah Serra DO 100 [place] [address] PCP - General Family Medicine 07/21/23 Provider, Historical 02/16/16 08/25/16 Willi Templeton MD [address] [place] [address] [address] [facility] [place] [address] Gastroenterology 02/25/16 María Andre MD [address] [place] [address] [address] [facility] [place] [address] Gastroenterology 03/08/16 Selene Rodriguez APRN [address] [place] [address] Gastroenterology 08/23/16 Mariah Flowers APRN [address] [place] [address] [address] [place] [address] Nurse Practitioner 08/26/16 Neyda Beltran MD [address] [place] [address] [address] [facility] [place] [address] Nephrology 03/17/17 Ryanne Roblero MD [address] [place] [address] [address] [facility] [place] [address] Rheumatology 03/01/18 Mi Martin APRN [address] [place] [address] 102 [place] [phone] Nurse Practitioner Nurse Practitioner 04/16/19 Micha Washington MD [address] [place] [address] [address] [place] [address] Endocrinology 08/06/24 08/06/24 documented as of this encounter
--- OUTSIDE RECORDS SUMMARY | 2024-08-20 15:24 | XMS_ITS | Clinical Summary ---
Author Organization [facility] ([place], [place], [place], [place]) Address [address] [place] [address] Care Team Providers Care Facilities And Grounds Director Name Role Phone Elijah Serra DO Primary Care Provider [phone] Allergies Active Allergy Reactions Criticality Noted Date [...] the past 12 months, has t he [employer], gas, oil, or water Cart[employer] threatened to shut off services in your [...] speak a language other than [place] at [facility]? No 09/05/2023 Do [...] 09/15/2021, 09/2021 Insurance MEDICARE PART [place] [address] Advance Directives For more information, please contact: [phone] * Full Code (Latest Code Status on File) Date Activated Date Inactivated Comments 09/05/2023 4:42 PM 09/06/2023 2:20 PM Care Teams Facilities And Grounds Director Relationship Specialty Start Date End Date Elijah Serra DO [address] [facility] 1ST [place] [phone] PCP - General Family Medicine 03/11/23
--- OUTSIDE RECORDS SUMMARY | 2024-08-20 15:24 | XMS_ITS | Encounter Summary ---
Author Organization [facility] Address [address] [place] [address] Support Name Relationship Address Phone Stepan Gold Personal Relationship [address] [facility] [place] [address] Mi Gold Personal Relationship Unknown Rosalind Mai Personal Relationship Unknown [phone] Vivi Ward Personal Relationship Unknown [phone] Care Team Providers Care Residential Field Manager Name Role Phone Lesley Grace MD Primary Care Provider [phone] Provider, Historical Unavailable Unavailable Willi Templeton MD Unavailable María Andre MD Unavailable [phone] Selene Rodriguez DIVER TENDER Unavailable Mariah Flowers DIVER TENDER Unavailable Neyda Beltran MD Unavailable Ryanne Roblero MD Unavailable Unavailable Mi Martin DIVER TENDER Unavailable [phone] Elijah Serra DO Primary Care Provider Micha Washington MD Unavailable Reason for Visit * Reason Onset Date Comments Results - Lab 09/02/2014 Encounter Details Date Type Department Care Team (Late st Contact Info) Description 09/02/[address] LESLEY GRACE MD, [address] [place] [address] Lesley Grace MD [address] [place] [address] [address] [facility] [place] [address] Results - Lab Social History Tobacco Use [...] Office Visit [facility] [address] [place] [address], [address] [place] [phone] Micha Washington MD [address] [facility] [address] Molly Figueroa PA-C [address] [place] [address] documented as of this encounter Visit Diagnoses Not on filedocumented in this encounter Additional Health Concerns Infection Onset Date Last Indicated Resolved Time 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 02/24/2017 02/22/2017 02/22/2017 04/02/2024 9:[address] documented as of this encounter Care Teams Residential Field Manager Relationship Specialty Start Date End Date Lesley Grace MD [address] [place] [address] [address] [place] [address] PCP - General 02/16/09 04/13/23 Elijah Serra DO 100 [place] [address] PCP - General Family Medicine 07/21/23 Provider, Historical 02/16/16 08/25/16 Willi Templeton MD 613 [facility] [address] Medical [place] [address] Gastroenterology 02/25/16 María Andre MD 61 [facility] [address] [place] [address] Gastroenterology 03/08/16 Selene Rodriguez APRN [address] [place] [address] Gastroenterology 08/23/16 Mariah Flowers APRN [address] [facility] [address] [place] [address] Nurse Practitioner 08/26/16 Neyda Beltran MD 613 [facility] [address] [place] [address] Nephrology 03/17/17 Ryanne Roblero MD [address] [place] [address] [address] [place] [address] Rheumatology 03/01/18 Mi Martin APRN [address] [place] [address] Nurse Practitioner Nurse Practitioner 04/16/19 Micha Washington MD [address] [place] [address] [address] [place] [address] Endocrinology 08/06/24 08/06/24 documented as of this encounter
--- OUTSIDE RECORDS SUMMARY | 2024-08-20 15:24 | XMS_ITS | Encounter Summary ---
Author Organization [facility] Address [address] [place] [address] Support Name Relationship Address Phone Stepan Gold Personal Relationship [address] [place] [address] Mi Gold Personal Relationship Unknown Rosalind Mai Personal Relationship Unknown + [phone] Vivi Ward Personal Relationship Unknown [phone] Care Team Providers Care Manipulator Operator Name Role Phone Yehuda Barger MD Primary Care Provider [phone] Milton Crum DO Primary Care Provider Miky Benton MD Primary Care Provider [phone] Provider, Historical Unavailable Unavailable Willi Templeton MD Unavailable [phone] María Andre MD Unavailable [phone] Selene Rodriguez DONOR TECHNICIAN Unavailable [phone] Mariah Flowers DONOR TECHNICIAN Unavailable [phone] Neyda Beltran MD Unavailable [phone] Ryanne Roblero MD Unavailable Unavailable Mi Martin APRN Unavailable [phone] Elijah Serra DO Primary Care Provider [phone] Micha Washington MD Unavailable Encounter Details Date Type Department Care Team (Late st Contact Info) Description 06/19/2003 Historical Encounter Global Horacio Gill MD [address] [place] [address] Social History Tobacco Use Types Packs/Day Years [...] Description 11/06/2024 11:00 AM EDT Office Visit [facility] [place], [facility] [address], [address] [place] [phone] Micha Washington MD [address] [place] [address] [address] [place], [place] [phone] Molly Figueroa PA-C [address] [place] [address] [address] [place] [address] documented as of this encounter Visit Diagnoses Not on filedocumented in this encounter Additional Health Concerns Infection Onset Date Last Indicated Resolved Time 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 02/24/2017 02/22/2017 02/22/2017 04/02/2024 9:[address] documented as of this encounter Care Teams Manipulator Operator Relationship Specialty Start Date End Date Yehuda Barger MD [address] [place] [address] [place] [address] [place] [address] PCP - General 02/16/09 04/13/23 Milton Crum DO [address] [place] [address] [place] [address] PCP - General 01/08/09 02/15/09 Miky Louis MD [address] [place] [address] PCP - General 12/26/07 01/07/09 Elijah Serra DO 100 [place] [address] PCP - General Family Medicine 07/21/23 Provider, Historical 02/16/16 08/25/16 Willi Templeton MD [address] [place] [address] Gastroenterology 02/25/16 María Andre MD [address] [place] [address] Gastroenterology 03/08/16 Selene Rodriguez APRN [address] [place] [address] 203 [place] [address] Gastroenterology 08/23/16 Mariah Flowers APRN [address] [place] [address] [address] [place] [address] Nurse Practitioner 08/26/16 Neyda Beltran MD [address] [place] [address] Nephrology 03/17/17 Ryanne Roblero MD [address] [place] [address] Rheumatology 03/01/18 Mi Martin APRN [address] [place] [address] 102 [place] [phone] Nurse Practitioner Nurse Practitioner 04/16/19 Micha Washington MD [address] [place] [address] [address] [place] [address] Endocrinology 08/06/24 08/06/24 documented as of this encounter
--- OUTSIDE RECORDS SUMMARY | 2024-08-20 15:24 | XMS_ITS | Encounter Summary ---
Author Organization [facility] Address [address] [place] [address] Support Name Relationship Address Phone Stepan Gold Personal Relationship [address] [place] [address] Mi Gold Personal Relationship Unknown Rosalind Mai Personal Relationship Unknown Vivi Ward Personal Relationship Unknown [phone] Care Team Providers Care Nail Kegger Name Role Phone Yehuda Barger MD Primary Care Provider [phone] Milton Crum DO Primary Care Provider Miky Benton MD Primary Care Provider [phone] Provider, Historical Unavailable Unavailable Willi Templeton MD Unavailable [phone] María Andre MD Unavailable [phone] Selene Rodriguez LEAD BUSINESS SYSTEMS ANALYST Unavailable Mariah Flowers LEAD BUSINESS SYSTEMS ANALYST Unavailable [phone] Neyda Beltran MD Unavailable [phone] Ryanne Roblero MD Unavailable Unavailable Mi Martin APRN Unavailable [phone] Elijah Serra DO Primary Care Provider [phone] Micha Washington MD Unavailable Encounter Details Date Type Department Care Team (Late st Contact Info) Description 01/14/2004 Historical Encounter Global Horacio [place] MD [address] [place] [address] Social History Tobacco Use Types Packs/Day Years [...] 11/06/2024 11:00 AM EDT Office Visit [facility] [address], Medical [place], [address] [place] [phone] Micha Washington MD [address] [place], [place] [address] Molly Figueroa PA-C 613 [address] [address] [place], [place] [phone] documented as of this encounter Visit Diagnoses Not on filedocumented in this encounter Additional Health Concerns Infection Onset Date Last Indicated Resolved Time 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 02/24/2017 02/22/2017 02/22/2017 04/02/2024 9:[address] documented as of this encounter Care Teams Nail Kegger Relationship Specialty Start Date End Date Yehuda Barger MD [address] [place] [address] 1946 [facility] [place] [address] PCP - General 02/16/09 04/13/23 Milton Crum DO [address] [place] [address] [facility] [address] [place] [address] PCP - General 01/08/09 02/15/09 Miky Louis MD [address] [facility] [place] [address] PCP - General 12/26/07 01/07/09 Elijah Serra DO 100 [place] [address] PCP - General Family Medicine 07/21/23 Provider, Historical 02/16/16 08/25/16 Willi Templeton MD [address] [place] [address] Gastroenterology 02/25/16 María Andre MD 613 [facility] [address] [place], [place] [address] Gastroenterology 03/08/16 Selene Rodriguez APRN [address] [place] [address] 203 [place] [address] Gastroenterology 08/23/16 Mariah Flowers APRN [address] [place] [address] [address] [place] [address] Nurse Practitioner 08/26/16 Neyda Beltran MD [address] [facility] [address] [place] [address] Nephrology 03/17/17 Ryanne Roblero MD [address] [place] [address] [address] [place] [address] Rheumatology 03/01/18 Mi Martin APRN [address] [place] [address] 102 [place] [phone] Nurse Practitioner Nurse Practitioner 04/16/19 Micha Washington MD [address] [place] [address] [address] [place], [place] [phone] Endocrinology 08/06/24 08/06/24 documented as of this encounter
--- OUTSIDE RECORDS SUMMARY | 2024-08-20 15:24 | XMS_ITS | Encounter Summary ---
Author Organization [facility] Address [address] [place] [address] Support Name Relationship Address Phone Stepan Gold Personal Relationship [address] [place] [address] Mi Gold Personal Relationship Unknown Rosalind Mai Personal Relationship Unknown [phone] Vivi Ward Personal Relationship Unknown Care Team Providers Care Wedger Name Role Phone Yehuda Barger MD Primary Care Provider [phone] Provider, Historical Unavailable Unavailable Willi Templeton MD Unavailable [phone] María Andre MD Unavailable Selene Rodriguez STATOR TESTER Unavailable Mariah Flowers STATOR TESTER Unavailable Neyda Beltran MD Unavailable Ryanne Roblero MD Unavailable Unavailable Mi Martin STATOR TESTER Unavailable [phone] Elijah Serra DO Primary Care Provider Micha Washington MD Unavailable Encounter Details Date Type Department Care Team (Late st Contact Info) Description 08/02/2016 Telephone Pre-Admission Testing [address] [facility] [place] [phone] Shweta Burr, RN Social History Tobacco Use [...] Office Visit [facility] 613 [facility], [facility] [place], [address] [place] [phone] Micha Washington MD 613 [address] [address] [place], [place] [address] Molly Figueroa PA-C [address] [place] [address] [address] [place], [place] [address] documented as of this encounter Visit Diagnoses Not on filedocumented in this encounter Additional Health Concerns Infection Onset Date Last Indicated Resolved Time 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 02/24/2017 02/22/2017 02/22/2017 04/02/2024 9:[address] documented as of this encounter Care Teams Wedger Relationship Specialty Start Date End Date Yehuda Barger MD [address] [place] [address] [place] [address] [place] [address] PCP - General 02/16/09 04/13/23 Elijah Serra DO 100 [place] [address] PCP - General Family Medicine 07/21/23 Provider, Historical 02/16/16 08/25/16 Willi Templeton MD [address] [place] [address] [address] [place] [address] Gastroenterology 02/25/16 María Andre MD [address] [place] [address] Gastroenterology 03/08/16 Selene Rodriguez APRN [address] [place] [address] 203 [place] [address] Gastroenterology 08/23/16 Mariah Flowers APRN [address] [place] [address] [address] [place] [address] Nurse Practitioner 08/26/16 Neyda Beltran MD [address] [address] [place] [address] Nephrology 03/17/17 Ryanne Roblero MD [address] [address] [place] [address] Rheumatology 03/01/18 Mi Martin APRN [address] [place] [address] 102 [place] [address] Nurse Practitioner Nurse Practitioner 04/16/19 Micha Washington MD [address] [place] [address] [address] [place] [address] Endocrinology 08/06/24 08/06/24 documented as of this encounter
--- OUTSIDE RECORDS SUMMARY | 2024-08-20 15:24 | XMS_ITS | Encounter Summary ---
Author Organization [facility] Address [address] [place] [address] Support Name Relationship Address Phone Stepan Gold Personal Relationship [address] [place] [address] Mi Gold Personal Relationship Unknown Rosalind Mai Personal Relationship Unknown [phone] Vivi Ward Personal Relationship Unknown [phone] Care Team Providers Care Mask Designer Name Role Phone Yehuda Barger MD Primary Care Provider [phone] Willi Templeton MD Unavailable [phone] María Andre MD Unavailable [phone] Selene Rodriguez LAND SURVEYOR Unavailable Mariah Flowers LAND SURVEYOR Unavailable [phone] Neyda Beltran MD Unavailable [phone] Ryanne Roblero MD Unavailable Unavailable Mi Martin LAND SURVEYOR Unavailable [phone] Elijah Serra DO Primary Care Provider [phone] Micha Washington MD Unavailable Reason for Visit * Reason Onset Date Comments Follow-up 03/28/2017 1st post DC f/u call made per ACM. No answer. Will continue to try to reach this pt. Encounter Details Date Type Department Care Team (Late st Contact Info) Description 03/28/2017 Telephone Population Health Management [address] [place] [phone] Billie Pathak, ARTHUR Follow-up (1st post DC [...] Description 11/06/2024 11:00 AM EDT Office Visit [address], [facility], [address] [place] [phone] Micha Washington MD [address] [place] [address] Molly Figueroa PA-C [address] [place] [address] documented as of this encounter Visit Diagnoses Not on filedocumented in this encounter Additional Health Concerns Infection Onset Date Last Indicated Resolved Time 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 02/24/2017 02/22/2017 02/22/2017 04/02/2024 9:[address] documented as of this encounter Care Teams Mask Designer Relationship Specialty Start Date End Date Yehuda Barger MD [address] [place] [address] 1947 [facility] [place] [address] PCP - General 02/16/09 04/13/23 Elijah Serra DO 100 [place] [address] PCP - General Family Medicine 07/21/23 Willi Templeton MD [address] [place] [address] Gastroenterology 02/25/16 María Andre MD [address] [facility] [place] [facility] [place] [address] Gastroenterology 03/08/16 Selene Rodriguez APRN [address] [place] [address] 203 [place] [address] Gastroenterology 08/23/16 Mariah Flowers APRN [address] [place] [address] [address] [place] [address] Nurse Practitioner 08/26/16 Neyda Beltran MD [address] [place] [address] Nephrology 03/17/17 Ryanne Roblero MD [address] [place] [address] Rheumatology 03/01/18 Mi Martin APRN [address] [place] [address] 102 [place] [address] Nurse Practitioner Nurse Practitioner 04/16/19 Micha Washington MD [address] [place] [address] [address] [place] [address] Endocrinology 08/06/24 08/06/24 documented as of this encounter
--- OUTSIDE RECORDS SUMMARY | 2024-08-20 15:24 | XMS_ITS | Encounter Summary ---
Author Organization [facility] Address [address] [place] [address] Support Name Relationship Address Phone Stepan Gold Personal Relationship [address] [place] [address] Mi Gold Personal Relationship Unknown Rosalind Mai Personal Relationship Unknown + [phone] Vivi Ward Personal Relationship Unknown [phone] Care Team Providers Care Scenic Designer Name Role Phone Yehuda Barger MD Primary Care Provider [phone] Milton Crum DO Primary Care Provider Miky Benton MD Primary Care Provider [phone] Provider, Historical Unavailable Unavailable Willi Templeton MD Unavailable [phone] María Andre MD Unavailable +[phone] Selene Rodriguez POLL CLERK Unavailable +[phone] Mariah Flowers POLL CLERK Unavailable [phone] Neyda Beltran MD Unavailable +[phone] Ryanne Roblero MD Unavailable Unavailable Mi Martin APRN Unavailable [phone] Elijah Serra DO Primary Care Provider [phone] Micha [place] MD Unavailable Encounter Details Date Type Department Care Team (Late st Contact Info) Description 11/01/2005 Historical Encounter Global Horacio Sherman MD [address] [place] [address] Social History Tobacco Use Types Packs/Day Years [...] Description 11/06/2024 11:00 AM EDT Office Visit [facility] [address], [address] [place], [address] [place] [address] Micha [place] MD [address] [place], [place] [address] Molly Figueroa PA-C 613 [address] [address] [place], [place] [address] documented as of this encounter Visit Diagnoses Not on filedocumented in this encounter Additional Health Concerns Infection Onset Date Last Indicated Resolved Time 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 02/24/2017 02/22/2017 02/22/2017 04/02/2024 9:[address] documented as of this encounter Care Teams Scenic Designer Relationship Specialty Start Date End Date Yehuda Barger MD [address] [place] [address] 1946 [facility] [place] [address] PCP - General 02/16/09 04/13/23 Milton Crum DO [address] [place] [address] [address] [facility] [place] [address] PCP - General 01/08/09 02/15/09 Miky Louis MD [address] [facility] [place] [address] PCP - General 12/26/07 01/07/09 Elijah Serra DO 100 [place] [address] PCP - General Family Medicine 07/21/23 Provider, Historical 02/16/16 08/25/16 Willi Templeton MD [address] [place] [address] Gastroenterology 02/25/16 María Andre MD 613 [facility] [address] [place], [place] [address] Gastroenterology 03/08/16 Selene Rodriguez APRN [address] [place] [address] 203 [place] [address] Gastroenterology 08/23/16 Mariah Flowers APRN [address] [place] [address] [address] [place] [address] Nurse Practitioner 08/26/16 Neyda Beltran MD [address] [place] [address] Nephrology 03/17/17 Ryanne Roblero MD [address] [place] [address] [address] [place] [address] Rheumatology 03/01/18 Mi Martin APRN [address] [place] [address] 102 [place] [address] Nurse Practitioner Nurse Practitioner 04/16/19 Micha [place] MD [address] [place] [address] [address] [place], [place] [address] Endocrinology 08/06/24 08/06/24 documented as of this encounter
--- OUTSIDE RECORDS SUMMARY | 2024-08-20 15:24 | XMS_ITS | Encounter Summary ---
Author Organization [facility] Address [address] [place] [address] Support Name Relationship Address Phone Stepan Gold Personal Relationship [address] [facility] [place] [address] Mi Asif Personal Relationship Unknown [phone] Rosalind Andersonill Personal Relationship Unknown [phone] Vivi Ward Personal Relationship Unknown [phone] Care Team Providers Care Gin Inspector Name Role Phone Lesley Grace MD Primary Care Provider [phone] Willi Templeton MD Unavailable María Andre MD Unavailable [phone] Selene Rodriguez INSPECTOR AND CLIPPER Unavailable Mariah Flowers INSPECTOR AND CLIPPER Unavailable Neyda Beltran MD Unavailable Ryanne Roblero MD Unavailable Unavailable Mi Martin INSPECTOR AND CLIPPER Unavailable [phone] Elijah Serra DO Primary Care Provider Micha [place] MD Unavailable Reason for Visit * Reason Onset Date Comments Medications Refill 05/31/2017 Encounter Details Date Type Department Care Team (Late st Contact Info) Description 05/31/[address] LESLEY GRACE MD, [facility] [address] [facility] [address] [place] [address] Lesley Grace MD [address] [place] [address] [place] [address] Renal hypertension, non-vascular Social History Tobacco Use [...] 11/06/2024 11:00 AM EDT Office Visit [address], [facility] [address] [place] [phone] Micha [place] MD [address] [place] [phone] Molly Figueroa PA-C [address] [place] [address] [place] [phone] documented as of this encounter Visit Diagnoses Diagnosis Renal hypertension, non-vascular Other secondary hypertension, unspecified documented in this encounter Additional Health Concerns Infection Onset Date Last Indicated Resolved Time 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 02/24/2017 02/22/2017 02/22/2017 04/02/2024 9:[address] documented as of this encounter Care Teams Gin Inspector Relationship Specialty Start Date End Date Lesley Grace MD [address] [place] [address] [place] [address] PCP - General 02/16/09 04/13/23 Elijah Serra DO 100 [place] [address] PCP - General Family Medicine 07/21/23 Willi [place] MD [address] [place] [address] Gastroenterology 02/25/16 María Andre MD [address] [place] [address] Gastroenterology 03/08/16 Selene Rodriguez APRN [address] [place] [address] 203 [place] [address] Gastroenterology 08/23/16 Mariah Flowers APRN [address] [place] [address] Nurse Practitioner 08/26/16 Neyda Beltran MD [address] [place] [address] Nephrology 03/17/17 Ryanne Roblero MD [address] [place] [address] Rheumatology 03/01/18 Mi Martin APRN [address] [place] [address] 102 [place] [address] Nurse Practitioner Nurse Practitioner 04/16/19 Micha [place] MD 613 [facility] [address] [place] [address] Endocrinology 08/06/24 08/06/24 documented as of this encounter
--- OUTSIDE RECORDS SUMMARY | 2024-08-20 15:24 | XMS_ITS | Encounter Summary ---
Author Organization [facility] Address [address] [place] [address] Support Name Relationship Address Phone Stepan Gold Personal Relationship [address] [place] [address] Mi Gold Personal Relationship Unknown Rosalind Mai Personal Relationship Unknown Vivi Ward Personal Relationship Unknown [phone] Care Team Providers Care Manager Property Name Role Phone Yehuda Barger MD Primary Care Provider [phone] Milton Crum DO Primary Care Provider Miky Benton MD Primary Care Provider [phone] Provider, Historical Unavailable Unavailable Willi Templeton MD Unavailable [phone] María Andre MD Unavailable [phone] Selene Rodriguez CORPORATE TRAVEL MANAGER Unavailable Mariah Flowers CORPORATE TRAVEL MANAGER Unavailable [phone] Neyda Beltran MD Unavailable +[phone] Ryanne Roblero MD Unavailable Unavailable Mi Martin APRN Unavailable [phone] Elijah Serra DO Primary Care Provider [phone] Micha [place] MD Unavailable Encounter Details Date Type Department Care Team (Late st Contact Info) Description 04/02/2003 Historical Encounter Global Horacio Sherman MD [address] [place] [address] Social History Tobacco Use Types Packs/Day Years [...] 11:00 AM EDT Office Visit [facility] [address], [address] [place], [address] [place] [address] Micha [place] MD [address] [place], [place] [address] Molly Figueroa PA-C 613 [address] [address] [place], [place] [address] documented as of this encounter Visit Diagnoses Not on filedocumented in this encounter Additional Health Concerns Infection Onset Date Last Indicated Resolved Time 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 02/24/2017 02/22/2017 02/22/2017 04/02/2024 9:[address] documented as of this encounter Care Teams Manager Property Relationship Specialty Start Date End Date Yehuda Barger MD [address] [place] [address] 1946 [facility] [place] [address] PCP - General 02/16/09 04/13/23 Milton Crum DO [address] [place] [address] 1946 [facility] [place] [address] PCP - General 01/08/09 02/15/09 Miky Louis MD [address] [facility] [place] [address] PCP - General 12/26/07 01/07/09 Elijah Serra DO 100 [place] [address] PCP - General Family Medicine 07/21/23 Provider, Historical 02/16/16 08/25/16 Willi Templeton MD [address] [place] [address] Gastroenterology 02/25/16 María Andre MD 613 [facility] [address] [place], [place] [address] Gastroenterology 03/08/16 Selene Rodriguez APRN [address] [place] [address] 203 [place] [address] Gastroenterology 08/23/16 Mariah Flowers APRN [address] [place] [address] [address] [place] [address] Nurse Practitioner 08/26/16 Neyda Beltran MD [address] [facility] [address] [place] [address] Nephrology 03/17/17 Ryanne Roblero MD [address] [place] [address] [address] [place] [address] Rheumatology 03/01/18 Mi Martin APRN [address] [place] [address] 102 [place] [address] Nurse Practitioner Nurse Practitioner 04/16/19 Micha [place] MD [address] [place] [address] [address] [place], [place] [address] Endocrinology 08/06/24 08/06/24 documented as of this encounter
--- OUTSIDE RECORDS SUMMARY | 2024-08-20 15:24 | XMS_ITS | Encounter Summary ---
Author Organization [facility] Address [address] [place] [address] Support Name Relationship Address Phone Stepan Gold Personal Relationship [address] [facility] [place] [address] Mi Gold Personal Relationship Unknown Rosalind Mai Personal Relationship Unknown [phone] Vivi Ward Personal Relationship Unknown Care Team Providers Care Bricklayer Apprentice Name Role Phone Lesley Grace MD Primary Care Provider [phone] Provider, Historical Unavailable Unavailable Willi Templeton MD Unavailable María Andre MD Unavailable Selene Rodriguez FIREFIGHTER TYPE ONE Unavailable [phone] Mariah Flowers FIREFIGHTER TYPE ONE Unavailable [phone] Neyda Beltran MD Unavailable Ryanne Roblero MD Unavailable Unavailable Mi Martin FIREFIGHTER TYPE ONE Unavailable [phone] Elijah Serra DO Primary Care Provider Micha [place] MD Unavailable Reason for Visit * Reason Onset Date Comments Results - Lab 08/30/2014 Other Encounter Details Date Type Department Care Team (Late st Contact Info) Description 08/30/[address] LESLEY GRACE MD, [address] [place] [address] Lesley Grace MD [address] [place] [address] [address] [place] [address] Results - Lab; Social History [...] should he restart the cozaar?? Van cell [phone] documented in this encounter Plan of Treatment Upcoming Encounters Date Type Department Care Team (Late st Contact Info) Description 11/06/2024 11:00 AM EDT Office Visit [facility] [place] [address], [facility], [address] [place] [address] Micha [place] MD [address] [place] [address] Molly Figueroa PA-C [address] [place] [address] [address] [place] [address] documented as of this encounter Visit Diagnoses Not on filedocumented in this encounter Additional Health Concerns Infection Onset Date Last Indicated Resolved Time 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 02/24/2017 02/22/2017 02/22/2017 04/02/2024 9:[address] documented as of this encounter Care Teams Bricklayer Apprentice Relationship Specialty Start Date End Date Lesley Grace MD [address] [place] [address] [place] [address] [place] [address] PCP - General 02/16/09 04/13/23 Elijah Serra DO 100 [place] [address] PCP - General Family Medicine 07/21/23 Provider, Historical 02/16/16 08/25/16 Willi Templeton MD 613 [address] [address] [place] [address] Gastroenterology 02/25/16 María Andre MD [address] [address] [place] [address] Gastroenterology 03/08/16 Selene Rodriguez APRN [address] [place] [address] 203 [place] [address] Gastroenterology 08/23/16 Mariah Flowers APRN 613 [address] 510 [place] [address] Nurse Practitioner 08/26/16 Neyda Beltran MD [address] [facility] [place] [address] Nephrology 03/17/17 Ryanne Roblero MD [address] [place] [address] [address] [place] [address] Rheumatology 03/01/18 Mi Martin APRN [address] [place] [address] [address] Nurse Practitioner Nurse Practitioner 04/16/19 Micha [place] MD [address] [place] [address] [address] [place] [address] Endocrinology 08/06/24 08/06/24 documented as of this encounter
--- OUTSIDE RECORDS SUMMARY | 2024-08-20 15:24 | XMS_ITS | Encounter Summary ---
Author Organization [facility] Address [address] [place] [address] Support Name Relationship Address Phone Stepan Gold Personal Relationship [address] [place] [address] Mi Gold Personal Relationship Unknown Rosalind Mai Personal Relationship Unknown Vivi Ward Personal Relationship Unknown Care Team Providers Care Integrity Engineer Name Role Phone Yehuda Barger MD Primary Care Provider [phone] Milton Crum DO Primary Care Provider Miky Benton MD Primary Care Provider [phone] Provider, Historical Unavailable Unavailable Willi Templeton MD Unavailable [phone] María Andre MD Unavailable [phone] Selene Rodriguez SUPERINTENDENT TESTS Unavailable Mariah Flowers SUPERINTENDENT TESTS Unavailable [phone] Neyda Beltran MD Unavailable [phone] Ryanne Roblero MD Unavailable Unavailable Mi Martin APRN Unavailable [phone] Elijah Serra DO Primary Care Provider [phone] Micha [place] MD Unavailable Encounter Details Date Type Department Care Team (Late st Contact Info) Description 04/27/2004 Historical Encounter Global Horacio [place] MD [address] [place] [address] Social History Tobacco Use Types Packs/Day Years [...] Office Visit [facility] [place] [address], [address] [place], [address] [place] [address] Micha [place] MD [address] [place], [place] [address] Molly Figueroa PA-C [address] [address] [place], [place] [address] documented as of this encounter Visit Diagnoses Not on filedocumented in this encounter Additional Health Concerns Infection Onset Date Last Indicated Resolved Time 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 02/24/2017 02/22/2017 02/22/2017 04/02/2024 9:[address] documented as of this encounter Care Teams Integrity Engineer Relationship Specialty Start Date End Date Yehuda Barger MD [address] [place] [address] 1946 [facility] [place] [address] PCP - General 02/16/09 04/13/23 Milton Crum DO [address] [place] [address] 1946 [facility] [address] [place] [address] PCP - General 01/08/09 02/15/09 Miky [place] MD [address] [facility] [place] [address] PCP - General 12/26/07 01/07/09 Elijah Serra DO 100 [place] [address] PCP - General Family Medicine 07/21/23 Provider, Historical 02/16/16 08/25/16 Willi Templeton MD [address] [place] [address] Gastroenterology 02/25/16 María Andre MD 613 [address] [address] [place], [place] [address] Gastroenterology 03/08/16 Selene Rodriguez APRN [address] [place] [address] 203 [place] [address] Gastroenterology 08/23/16 Mariah Flowers APRN [address] [place] [address] [address] [place] [address] Nurse Practitioner 08/26/16 Neyda Beltran MD [address] [place] [address] Nephrology 03/17/17 Ryanne Roblero MD [address] [place] [address] [address] [place] [address] Rheumatology 03/01/18 Mi Martin APRN [address] [place] [address] 102 [place] [address] Nurse Practitioner Nurse Practitioner 04/16/19 Micha [place] MD [address] [place] [address] [address] [place], [place] [address] Endocrinology 08/06/24 08/06/24 documented as of this encounter
--- OUTSIDE RECORDS SUMMARY | 2024-08-20 15:24 | XMS_ITS | Encounter Summary ---
Author Organization [facility] Address [address] [place] [address] Support Name Relationship Address Phone Stepan Gold Personal Relationship [address] [place] [address] Mi Gold Personal Relationship Unknown Rosalind Mai Personal Relationship Unknown + [phone] Vivi Ward Personal Relationship Unknown [phone] Care Team Providers Care Casino Cashier Manager Name Role Phone Yehuda Barger MD Primary Care Provider [phone] Milton Crum DO Primary Care Provider Miky Benton MD Primary Care Provider [phone] Provider, Historical Unavailable Unavailable Willi Templeton MD Unavailable [phone] María Andre MD Unavailable [phone] Selene Rodriguez FUEL CELL BINDER Unavailable [phone] Mariah Flowers FUEL CELL BINDER Unavailable [phone] Neyda Beltran MD Unavailable +[phone] Ryanne Roblero MD Unavailable Unavailable Mi Martin APRN Unavailable [phone] Elijah Serra DO Primary Care Provider [phone] Micha [place] MD Unavailable Encounter Details Date Type Department Care Team (Late st Contact Info) Description 08/01/2004 Historical Encounter Global Sebastian Alarcon MD [address] [place] [address] Social History Tobacco Use Types Packs/Day Years [...] Description 11/06/2024 11:00 AM EDT Office Visit [facility] [address] [place], [facility] [place] [address], [address] [place] [address] Micha [place] MD [address] [place] [address] [place] [phone] Molly Figueroa PA-C [address] [place] [phone] documented as of this encounter Visit Diagnoses Not on filedocumented in this encounter Additional Health Concerns Infection Onset Date Last Indicated Resolved Time 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 02/24/2017 02/22/2017 02/22/2017 04/02/2024 9:[address] documented as of this encounter Care Teams Casino Cashier Manager Relationship Specialty Start Date End Date Yehuda Barger MD [address] [place] [address] 1946 [facility] [place] [address] PCP - General 02/16/09 04/13/23 Milton Crum DO [address] [place] [address] [place] [address] PCP - General 01/08/09 02/15/09 Miky [place] MD [address] [place] [address] PCP - General 12/26/07 01/07/09 Elijah Serra DO 100 [place] [address] PCP - General Family Medicine 07/21/23 Provider, Historical 02/16/16 08/25/16 Willi Templeton MD [address] [place] [address] Gastroenterology 02/25/16 María Andre MD [address] [place] [address] [address] [place] [address] Gastroenterology 03/08/16 Selene Rodriguez APRN [address] [place] [address] 203 [place] [address] Gastroenterology 08/23/16 Mariah Flowers APRN [address] [place] [address] [address] [place] [address] Nurse Practitioner 08/26/16 Neyda Beltran MD [address] [address] [facility] [address] [place] [address] Nephrology 03/17/17 Ryanne Roblero MD [address] [facility] [address] [place] [address] Rheumatology 03/01/18 Mi Martin APRN [address] [place] [address] 102 [place] [address] Nurse Practitioner Nurse Practitioner 04/16/19 Micha [place] MD [address] [place] [address] [address] [place], [place] [address] Endocrinology 08/06/24 08/06/24 documented as of this encounter
--- OUTSIDE RECORDS SUMMARY | 2024-08-20 15:24 | XMS_ITS | Encounter Summary ---
Author Organization [facility] Address [address] [place] [address] Support Name Relationship Address Phone Stepan Gold Personal Relationship [address] [place] [address] Mi Gold Personal Relationship Unknown Rosalind Mai Personal Relationship Unknown + [phone] Vivi Ward Personal Relationship Unknown [phone] Care Team Providers Care Survey Chief Name Role Phone Yehuda Barger MD Primary Care Provider [phone] Milton Crum DO Primary Care Provider Miky Benton MD Primary Care Provider [phone] Provider, Historical Unavailable Unavailable Willi Templeton MD Unavailable [phone] María Andre MD Unavailable [phone] Selene Rodriguez FOLDER MACHINE ADJUSTER Unavailable [phone] Mariah Flowers FOLDER MACHINE ADJUSTER Unavailable [phone] Neyda Beltran MD Unavailable +[phone] Ryanne Roblero MD Unavailable Unavailable Mi Martin APRN Unavailable [phone] Elijah Serra DO Primary Care Provider [phone] Micha [place] MD Unavailable Encounter Details Date Type Department Care Team (Late st Contact Info) Description 04/25/2002 Historical Encounter Global Rian Randall MD [address] [place] [address] Social History Tobacco Use Types Packs/Day Years [...] Description 11/06/2024 11:00 AM EDT Office Visit [facility] [address], Medical [place] [address], [address] [place] [address] Micha [place] MD [address] [place] [address] [place], [place] [address] Molly Figueroa PA-C [address] [place] [address] [address] [place], [place] [address] documented as of this encounter Visit Diagnoses Not on filedocumented in this encounter Additional Health Concerns Infection Onset Date Last Indicated Resolved Time 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 02/24/2017 02/22/2017 02/22/2017 04/02/2024 9:[address] documented as of this encounter Care Teams Survey Chief Relationship Specialty Start Date End Date Yehuda Barger MD [address] [place] [address] [place] [address] PCP - General 02/16/09 04/13/23 Milton Crum DO [address] [place] [address] [place] [address] PCP - General 01/08/09 02/15/09 Miky [place] MD [address] [place] [address] PCP - General 12/26/07 01/07/09 Elijah Serra DO 100 [place] [address] PCP - General Family Medicine 07/21/23 Provider, Historical 02/16/16 08/25/16 Willi Templeton MD [address] [facility] [address] [place] [address] Gastroenterology 02/25/16 María Andre MD [address] [place] [address] [address] [place] [address] Gastroenterology 03/08/16 Selene Rodriguez APRN [address] [place] [address] Gastroenterology 08/23/16 Mariah Flowers APRN [address] [place] [address] 510 [place] [address] Nurse Practitioner 08/26/16 Neyda Beltran MD [address] [address] [place] [address] Nephrology 03/17/17 Ryanne Roblero MD [address] [address] [place] [address] Rheumatology 03/01/18 Mi Martin APRN [address] [place] [address] Dr Jacques [address] [place] [address] Nurse Practitioner Nurse Practitioner 04/16/19 Micha [place] MD [address] [place] [address] [address] [place] [address] Endocrinology 08/06/24 08/06/24 documented as of this encounter
--- OUTSIDE RECORDS SUMMARY | 2024-08-20 15:24 | XMS_ITS | Encounter Summary ---
Author Organization [facility] Address [address] [place] [address] Support Name Relationship Address Phone Stepan Gold Personal Relationship [address] [place] [address] Mi Gold Personal Relationship Unknown Rosalind Mai Personal Relationship Unknown + [phone] Vivi Ward Personal Relationship Unknown [phone] Care Team Providers Care Electric Tool Repairer Name Role Phone Yehuda Barger MD Primary Care Provider [phone] Milton Crum DO Primary Care Provider Miky Benton MD Primary Care Provider [phone] Provider, Historical Unavailable Unavailable Willi Templeton MD Unavailable [phone] María Andre MD Unavailable [phone] Selene Rodriguez MACHINE OPERATOR GENERAL Unavailable Mariah Flowers MACHINE OPERATOR GENERAL Unavailable [phone] Neyda Beltran MD Unavailable [phone] Ryanne Roblero MD Unavailable Unavailable Mi Martin APRN Unavailable [phone] Elijah Serra DO Primary Care Provider [phone] Micha [place] MD Unavailable Encounter Details Date Type Department Care Team (Late st Contact Info) Description 10/29/2003 Historical Encounter Global Yehuda Barger MD [address] [place] [address] Social History Tobacco Use Types Packs/Day Years [...] AM EDT Office Visit [facility] Endocrinology [place] [address] [place], [facility] [place], [address] [place] [address] Micha Washington MD [address] [place] [address] [place] [address] Molly Figueroa PA-C [address] [place] [address] [place] [address] documented as of this encounter Visit Diagnoses Not on filedocumented in this encounter Additional Health Concerns Infection Onset Date Last Indicated Resolved Time 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 02/24/2017 02/22/2017 02/22/2017 04/02/2024 9:[address] documented as of this encounter Care Teams Electric Tool Repairer Relationship Specialty Start Date End Date Yehuda Barger MD [address] [place] [address] PCP - General 02/16/09 04/13/23 Milton Crum DO [address] [place] [address] PCP - General 01/08/09 02/15/09 Miky Louis MD [address] [place] [address] PCP - General 12/26/07 01/07/09 Elijah Serra DO 100 [place] [address] PCP - General Family Medicine 07/21/23 Provider, Historical 02/16/16 08/25/16 Willi Templeton MD [address] [facility] [address] [place] [address] Gastroenterology 02/25/16 María Andre MD [address] [place] [address] [address] [place] [address] Gastroenterology 03/08/16 Selene Rodriguez APRN [address] [place] [address] Gastroenterology 08/23/16 Mariah Flowers APRN [address] [place] [address] [address] [place] [address] Nurse Practitioner 08/26/16 Neyda Beltran MD [address] [address] [place] [address] Nephrology 03/17/17 Ryanne Roblero MD [address] [address] [place] [address] Rheumatology 03/01/18 Mi [place] APRN [address] [place] [address] [address] [place] [phone] Nurse Practitioner Nurse Practitioner 04/16/19 Micha [place] MD [address] [place] [address] [address] [place] [address] Endocrinology 08/06/24 08/06/24 documented as of this encounter
--- OUTSIDE RECORDS SUMMARY | 2024-08-20 15:24 | XMS_ITS | Encounter Summary ---
Author Organization [facility] Address [address] [place] [address] Support Name Relationship Address Phone Stepan Gold Personal Relationship [address] [place] [address] Mi Gold Personal Relationship Unknown [phone] Rosalind Mai Personal Relationship Unknown [phone] Vivi Ward Personal Relationship Unknown Care Team Providers Care Lumber Racker Name Role Phone Lesley Grace MD Primary Care Provider [phone] Willi Templeton MD Unavailable María Andre MD Unavailable [phone] Selene Rodriguez TAPERING MACHINE OPERATOR Unavailable Mariah Flowers TAPERING MACHINE OPERATOR Unavailable Neyda Beltran MD Unavailable Ryanne Roblero MD Unavailable Unavailable Mi [place] TAPERING MACHINE OPERATOR Unavailable [phone] Elijah Serra DO Primary Care Provider [phone] Micha [place] MD Unavailable Encounter Details Date Type Department Care Team (Late st Contact Info) Description 06/08/[address] LESLEY GRACE MD, [facility] 105 [facility] 194 [place] [address] Lesley Grace MD 105 [facility] [address] [place] [address] Social History Tobacco Use Types [...] penetrated into his left ankle.PT went to [facility] in [place]. Theycoderized and it . Pt pulled band aid off today and there is white puss coming out of it. # [phone] Eliana [place] He is sending a pic kj documented in this encounter Plan of Treatment Upcoming Encounters Date Type Department Care Team (Late st Contact Info) Description 11/06/2024 11:00 AM EDT Office Visit [address], [facility], [address] [place] [address] Micha [place] MD [address] [place] [address] Molly Figueroa PA-C [address] [place] [address] documented as of this encounter Visit Diagnoses Not on filedocumented in this encounter Additional Health Concerns Infection Onset Date Last Indicated Resolved Time 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 02/24/2017 02/22/2017 02/22/201704/0204/02/2024 9:12 AM EST documented as of this encounter Care Teams Lumber Racker Relationship Specialty Start Date End Date Lesley Grace MD [address] [place] [address] [place] [address] PCP - General 02/16/09 04/13/23 Elijah Serra DO 100 [place] [address] PCP - General Family Medicine 07/21/23 Willi Templeton MD 61 [facility] [address] [place] [address] Gastroenterology 02/25/16 María Andre MD [address] [place] [address] [address] [place] [address] Gastroenterology 03/08/16 Selene Rodriguez APRN [address] [place] [address] Gastroenterology 08/23/16 Mariah Flowers APRN [facility] [address] [place] [address] Nurse Practitioner 08/26/16 Neyda Beltran MD [address] [place] [address] Nephrology 03/17/17 Ryanne Roblero MD 61 [facility] [address] [place] [address] Rheumatology 03/01/18 Mi [place] APRN [address] [place], [place] [address] [place] [address] Nurse Practitioner Nurse Practitioner 04/16/19 Micha [place] MD [address] [place] [address] Endocrinology 08/06/24 08/06/24 documented as of this encounter
--- OUTSIDE RECORDS SUMMARY | 2024-08-20 15:24 | XMS_ITS | Encounter Summary ---
Author Organization [facility] Address [address] [place] [address] Support Name Relationship Address Phone Stepan Gold Personal Relationship [address] [facility] [place] [address] Mi Gold Personal Relationship Unknown [phone] Rosalind Mai Personal Relationship Unknown [phone] Vivi Ward Personal Relationship Unknown Care Team Providers Care Electric Razor Mechanic Name Role Phone Lesley Grace MD Primary Care Provider [phone] Provider, Historical Unavailable Unavailable Willi Templeton MD Unavailable María Andre MD Unavailable Selene Rodriguez CALIBRATION ENGINEER Unavailable Mariah Flowers CALIBRATION ENGINEER Unavailable Neyda Beltran MD Unavailable Ryanne Roblero MD Unavailable Unavailable Mi [place] CALIBRATION ENGINEER Unavailable [phone] Elijah Serra DO Primary Care Provider Micha [place] MD Unavailable Reason for Visit * Reason Comments Other Encounter Details Date Type Department Care Team (Late st Contact Info) Description 08/14/[address] LESLEY GRACE MD, [facility] 105 [facility] 194 [place] [address] Lesley Grace MD 105 [facility] [address] [place] [address] Social History Tobacco Use Types Packs/Day Years [...] Description 11/06/2024 11:00 AM EDT Office Visit [address], [address] [place] [address] Micha [place] MD [address] [place] [address] Molly Figueroa PA-C [address] [place] [address] documented as of this encounter Visit Diagnoses Not on filedocumented in this encounter Additional Health Concerns Infection Onset Date Last Indicated Resolved Time 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 02/24/2017 02/22/2017 02/22/2017 04/02/2024 9:[address] documented as of this encounter Care Teams Electric Razor Mechanic Relationship Specialty Start Date End Date Lesley Grace MD [address] [place] [address] [address] [place] [address] PCP - General 02/16/09 04/13/23 Elijah Serra DO 100 [place] [address] PCP - General Family Medicine 07/21/23 Provider, Historical 02/16/16 08/25/16 Willi Templeton MD 613 [facility] [address] [place] [address] Gastroenterology 02/25/16 María Andre MD 613 [facility] [address] [place] [address] Gastroenterology 03/08/16 Selene Rodriguez APRN [address] [place] [address] Gastroenterology 08/23/16 Mariah Flowers APRN 61 [facility] [address] [place] [address] Nurse Practitioner 08/26/16 Neyda Beltran MD 613 [facility] [address] [place] [address] Nephrology 03/17/17 Ryanne Roblero MD 613 [facility] [address] [place] [address] Rheumatology 03/01/18 Mi [place] APRN [address] [place] [address] [place] [address] Nurse Practitioner Nurse Practitioner 04/16/19 Micha [place] MD [address] [place] [address] Endocrinology 08/06/24 08/06/24 documented as of this encounter
--- OUTSIDE RECORDS SUMMARY | 2024-08-20 15:24 | XMS_ITS | Encounter Summary ---
Author Organization [facility] Address [address] [place] [address] Support Name Relationship Address Phone Stepan Gold Personal Relationship [address] [facility] [place] [address] Mi Asif Personal Relationship Unknown [phone] Rosalind Andersonill Personal Relationship Unknown [phone] Vivi Ward Personal Relationship Unknown [phone] Care Team Providers Care Mill Stenciler Name Role Phone Lesley Grace MD Primary Care Provider [phone] Willi Templeton MD Unavailable [phone] María Andre MD Unavailable [phone] Selene Rodriguez PUBLIC HEALTH DIRECTOR Unavailable Mariah Flowers PUBLIC HEALTH DIRECTOR Unavailable Neyda Beltran MD Unavailable Ryanne Roblero MD Unavailable Unavailable [place] PUBLIC HEALTH DIRECTOR Unavailable [phone] Elijah Serra DO Primary Care Provider Micha [place] MD Unavailable Reason for Visit * Reason Onset Date Comments Medications Refill 03/18/2017 Encounter Details Date Type Department Care Team (Late st Contact Info) Description 03/18/[address] LESLEY GRACE MD, [facility] 105 [facility] [address] [place] [address] Lesley Grace MD [address] [place] [address] [place] [address] Social History Tobacco Use Types Packs/Day Years [...] Description 11/06/2024 11:00 AM EDT Office Visit [address], [facility] [place], [address] [place] [address] Micha [place] MD [address] [place] [address] [place] [address] Molly Figueroa PA-C [address] [place] [phone] documented as of this encounter Visit Diagnoses Not on filedocumented in this encounter Additional Health Concerns Infection Onset Date Last Indicated Resolved Time 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 02/24/2017 02/22/2017 02/22/2017 04/02/2024 9:[address] documented as of this encounter Care Teams Mill Stenciler Relationship Specialty Start Date End Date Lesley Grace MD [address] [place] [address] [place] [address] PCP - General 02/16/09 04/13/23 Elijah Serra DO 100 [place] [address] PCP - General Family Medicine 07/21/23 Willi Templeton MD [address] [place] [address] Gastroenterology 02/25/16 María Andre MD [address] [place], [place] [address] Gastroenterology 03/08/16 Selene Rodriguez APRN [address] [place] [address] 203 [place] [address] Gastroenterology 08/23/16 Mariah Flowers APRN [address] [place] [address] [address] [place] [address] Nurse Practitioner 08/26/16 Neyda Beltran MD [address] [place] [address] Nephrology 03/17/17 Ryanne Roblero MD [address] [place] [address] Rheumatology 03/01/18 Mi [place] APRN [address] [place] [address] 102 [place] [address] Nurse Practitioner Nurse Practitioner 04/16/19 Micha [place] MD [address] [place] [address] [address] [place], [place] [address] Endocrinology 08/06/24 08/06/24 documented as of this encounter
--- OUTSIDE RECORDS SUMMARY | 2024-08-20 15:24 | XMS_ITS | Encounter Summary ---
Author Organization [employer] ([place], [place], [place], [place]) Address [address] [place] [address] Care Team Providers Care Annealer Helper Name Role Phone Elijah Serra DO Primary Care Provider [phone] Encounter Details Date Type Department Care Team (Late st Contact Info) Description 08/18/2020 Transcribed Document [facility] Family Medicine [address] [place] [address] ProviderMichael MD 123 [place] [address] Social History Tobacco Use Types [...] - 08/18/2020 13:45 EDT Electronically signed by [facility] Residential Property Manager Cerner at 05/25/2022 6:03 PM CDT documented in this encounter Plan of Treatment Not on file documented as of this encounter Visit Diagnoses Not on filedocumented in this encounter Care Teams Annealer Helper Relationship Specialty Start Date End Date Elijah Serra, DO 100 [facility] 1ST [place] [address] PCP - General Family Medicine 03/11/23 documented as of this encounter
--- OUTSIDE RECORDS SUMMARY | 2024-08-20 15:24 | XMS_ITS | Encounter Summary ---
Author Organization [facility] Address [address] [place] [address] Support Name Relationship Address Phone Stepan Gold Personal Relationship [address] [facility] [place] [address] Mi Gold Personal Relationship Unknown Rosalind Mai Personal Relationship Unknown [phone] Vivi Ward Personal Relationship Unknown Care Team Providers Care Rolling Attendant Name Role Phone Lesley Grace MD Primary Care Provider [phone] Willi Templeton MD Unavailable [phone] María Andre MD Unavailable [phone] Selene Rodriguez HISTORICAL ARCHEOLOGIST Unavailable Mariah Flowers HISTORICAL ARCHEOLOGIST Unavailable [phone] Neyda Beltran MD Unavailable Ryanne Roblero MD Unavailable Unavailable [place] HISTORICAL ARCHEOLOGIST Unavailable [phone] Elijah Serra DO Primary Care Provider [phone] Micha [place] MD Unavailable Reason for Visit * Reason Onset Date Comments Phone Advice For Symptoms 07/11/2018 Encounter Details Date Type Department Care Team (Late st Contact Info) Description 07/11/[address] LESLEY GRACE MD, [facility] 105 [facility] 194 [place] [phone] Lesley Grace MD [address] [place] [address] [place] [address] Phone Advice For Symptoms Social History Tobacco [...] Description 11/06/2024 11:00 AM EDT Office Visit [address], [facility] [place] [address], [address] [place], [place] [address] Micha [place] MD [address] [place] [address] [place] [address] Molly Figueroa PA-C [address] [place] [address] [place] [address] documented as of this encounter Visit Diagnoses Not on filedocumented in this encounter Additional Health Concerns Infection Onset Date Last Indicated Resolved Time 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 02/24/2017 02/22/2017 02/22/2017 04/02/2024 9:[address] documented as of this encounter Care Teams Rolling Attendant Relationship Specialty Start Date End Date Lesley Grace MD [address] [place] [address] [place] [address] PCP - General 02/16/09 04/13/23 Ponce ElijahDO 100 [place] [address] PCP - General Family Medicine 07/21/23 Willi Templeton MD [address] [place] [address] Gastroenterology 02/25/16 María Andre MD [address] [place], [place] [address] Gastroenterology 03/08/16 Selene Rodriguez APRN [address] [place] [address] Gastroenterology 08/23/16 Mariah Flowers APRN [address] [place] [address] Nurse Practitioner 08/26/16 Neyda Beltran MD [address] [place] [address] Nephrology 03/17/17 Ryanne Roblero MD [address] [place] [address] Rheumatology 03/01/18 Mi Martin APRN [address] [place] [address] 102 [place] [address] Nurse Practitioner Nurse Practitioner 04/16/19 Micha [place] MD [address] [place] [address] [address] [place], [place] [address] Endocrinology 08/06/24 08/06/24 documented as of this encounter
--- OUTSIDE RECORDS SUMMARY | 2024-08-20 15:24 | XMS_ITS | Encounter Summary ---
Author Organization [facility] Address [address] [place] [address] Support Name Relationship Address Phone Stepan Gold Personal Relationship [address] [facility] [place] [address] Mi Asif Personal Relationship Unknown Rosalind Andersonill Personal Relationship Unknown [phone] Vivi Ward Personal Relationship Unknown [phone] Care Team Providers Care Supervisor Operations Name Role Phone Lesley Grace MD Primary Care Provider [phone] Willi Templeton MD Unavailable [phone] María Andre MD Unavailable [phone] Selene Rodriguez PROCESS PLANNER Unavailable Mariah Flowers PROCESS PLANNER Unavailable Neyda Beltran MD Unavailable Ryanne Roblero MD Unavailable Unavailable Mi [place] PROCESS PLANNER Unavailable [phone] Elijah Serra DO Primary Care Provider Micha [place] MD Unavailable Reason for Visit * Reason Onset Date Comments Medications Refill 03/16/2017 Encounter Details Date Type Department Care Team (Late st Contact Info) Description 03/16/[address] LESLEY GRACE MD, [facility] 105 [facility] 194 [place] [address] Lesley Grace MD [address] [place] [address] [place] [address] Social History Tobacco Use Types Packs/Day Years [...] Description 11/06/2024 11:00 AM EDT Office Visit [facility] [address] [place] [address], [facility] [address] [place], [place] [address] Micha Washington MD [address] [place] [address] Molly Figueroa PA-C [address] [place] [address] [place] [address] documented as of this encounter Visit Diagnoses Not on filedocumented in this encounter Additional Health Concerns Infection Onset Date Last Indicated Resolved Time 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 02/24/2017 02/22/2017 02/22/2017 04/02/2024 9:[address] documented as of this encounter Care Teams Supervisor Operations Relationship Specialty Start Date End Date Lesley Grace MD [address] [place] [address] B [place] [address] PCP - General 02/16/09 04/13/23 Elijah Serra DO 100 [place] [address] PCP - General Family Medicine 07/21/23 Willi Templeton MD [address] [place] [address] 430 [place] [address] Gastroenterology 02/25/16 María Andre MD [address] [place] [address] 430 [place] [address] Gastroenterology 03/08/16 Selene Rodriguez APRN [address] [place] [address] 203 [place] [address] Gastroenterology 08/23/16 Mariah Flowers APRN [address] [place] [address] 510 [place] [address] Nurse Practitioner 08/26/16 Neyda Beltran MD [address] [place] [address] [address] [facility] [place] [address] Nephrology 03/17/17 Ryanne Roblero MD [address] [place] [address] [address] [facility] [place] [address] Rheumatology 03/01/18 Mi Martin APRN [address] [place] [address] 102 [place] [address] Nurse Practitioner Nurse Practitioner 04/16/19 Micha [place] MD [address] [place] [address] [address] [place] [address] Endocrinology 08/06/24 08/06/24 documented as of this encounter
--- OUTSIDE RECORDS SUMMARY | 2024-08-20 15:24 | XMS_ITS | Encounter Summary ---
Author Organization [facility] Address [address] [place] [address] Support Name Relationship Address Phone Stepan Gold Personal Relationship [address] [place] [address] Mi Gold Personal Relationship Unknown Rosalind Mai Personal Relationship Unknown [phone] Vivi Ward Personal Relationship Unknown Care Team Providers Care Lumber Marker Name Role Phone Yehuda Barger MD Primary Care Provider Willi Templeton MD Unavailable [phone] María Andre MD Unavailable [phone] Selene Rodriguez JUNIOR BOOKKEEPER Unavailable [phone] Mariah Flowers JUNIOR BOOKKEEPER Unavailable [phone] Neyda Beltran MD Unavailable Ryanne Roblero MD Unavailable Unavailable Mi Martin JUNIOR BOOKKEEPER Unavailable [phone] Elijah Serra DO Primary Care Provider [...] Description 03/31/2017 Telephone Population Health Management [address] [place] [address] Billie Pathak RN Follow-up (3rd [...] Description 11/06/2024 11:00 AM EDT Office Visit [address], [address] [place] [phone] Micha [place] MD [address] [place] [phone] Molly Figueroa PA-C [address] [place] [phone] documented as of this encounter Visit Diagnoses Not on filedocumented in this encounter Additional Health Concerns Infection Onset Date Last Indicated Resolved Time 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 02/24/2017 02/22/2017 02/22/2017 04/02/2024 9:[address] documented as of this encounter Care Teams Lumber Marker Relationship Specialty Start Date End Date Yehuda Barger MD [address] [place] [address] 1947 [facility] [place] [address] PCP - General 02/16/09 04/13/23 Elijah eSrra DO 100 [place] [address] PCP - General Family Medicine 07/21/23 Willi Templeton MD [address] [place] [address] [address] [place] [address] Gastroenterology 02/25/16 María Andre MD [address] [place] [address] [address] [place] [address] Gastroenterology 03/08/16 Selene Rodriguez APRN [address] [place] [address] 203 [place] [address] Gastroenterology 08/23/16 Mariah Flowers APRN [address] [place] [address] 510 [place] [address] Nurse Practitioner 08/26/16 Neyda Beltran MD [address] [place] [address] [address] [place] [address] Nephrology 03/17/17 Ryanne Roblero MD [address] [place] [address] [address] [place] [address] Rheumatology 03/01/18 Mi Martin APRN [address] [place] [address] 102 [place] [address] Nurse Practitioner Nurse Practitioner 04/16/19 Micha [place] MD [address] [place] [address] [address] [place] [address] Endocrinology 08/06/24 08/06/24 documented as of this encounter
--- OUTSIDE RECORDS SUMMARY | 2024-08-20 15:24 | XMS_ITS | Encounter Summary ---
Author Organization [facility] Address [address] [place] [address] Support Name Relationship Address Phone Stepan Gold Personal Relationship [address] [place] [address] Mi Gold Personal Relationship Unknown Rosalind Mai Personal Relationship Unknown Vivi Ward Personal Relationship Unknown [phone] Care Team Providers Care Twist Tester Name Role Phone Yehuda Barger MD Primary Care Provider [phone] [place] Crum DO Primary Care Provider Miky Benton MD Primary Care Provider [phone] Provider, Historical Unavailable Unavailable Willi Templeton MD Unavailable [phone] María Andre MD Unavailable [phone] Selene Rodriguez AUTOMATION AND CONTROL ENGINEER Unavailable Mariah Flowers AUTOMATION AND CONTROL ENGINEER Unavailable +[phone] Neyda Beltran MD Unavailable +[phone] Ryanne Roblero MD Unavailable Unavailable Mi Martin APRN Unavailable [phone] Elijah Serra DO Primary Care Provider [phone] Micha [place] MD Unavailable Encounter Details Date Type Department Care Team (Late st Contact Info) Description 10/07/2003 Historical Encounter Global Horacio Sherman MD [address] [place] [address] Social History Tobacco Use Types Packs/Day Years [...] 11:00 AM EDT Office Visit [facility] [address], Medical [place], [address] [place] [address] Micha [place] MD [address] [place], [place] [address] Molly Figueroa PA-C 613 [facility] [address] [place], [place] [address] documented as of this encounter Visit Diagnoses Not on filedocumented in this encounter Additional Health Concerns Infection Onset Date Last Indicated Resolved Time 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 [place] [address] PCP - General 02/16/09 04/13/23 [place] Crum DO [address] [place] [address] [facility] [place] [address] PCP - General 01/08/09 02/15/09 Miky Louis MD [address] [facility] [place] [address] PCP - General 12/26/07 01/07/09 Elijah Serra DO 100 [place] [address] PCP - General Family Medicine 07/21/23 Provider, Historical 02/16/16 08/25/16 Willi Templeton MD [address] [place] [address] Gastroenterology 02/25/16 María Andre MD 613 [facility] [address] [place], [place] [address] Gastroenterology 03/08/16 Selene Rodriguez APRN [address] [place] [address] 203 [place] [address] Gastroenterology 08/23/16 Mariah Flowers APRN [address] [place] [address] [address] [place] [address] Nurse Practitioner 08/26/16 Neyda Beltran MD [address] [place] [address] Nephrology 03/17/17 Ryanne Roblero MD [address] [place] [address] [address] [place] [address] Rheumatology 03/01/18 Mi Martin APRN [address] [place] [address] 102 [place] [address] Nurse Practitioner Nurse Practitioner 04/16/19 Micha [place] MD [address] [place] [address] [address] [place], [place] [address] Endocrinology 08/06/24 08/06/24 documented as of this encounter
--- OUTSIDE RECORDS SUMMARY | 2024-08-20 15:24 | XMS_ITS | Encounter Summary ---
Author Organization [facility] Address [address] [place] [address] Support Name Relationship Address Phone Stepan Gold Personal Relationship [address] [place] [address] Mi Gold Personal Relationship Unknown Rosalind Mai Personal Relationship Unknown [phone] Vivi Ward Personal Relationship Unknown Care Team Providers Care Director Of Reservations Name Role Phone Yehuda Barger MD Primary Care Provider [phone] [place] Templeton MD Unavailable María Andre MD Unavailable Selene Rodriguez LANGUAGE AND LITERATURE DIVISION CHAIR Unavailable Mariah Flowers LANGUAGE AND LITERATURE DIVISION CHAIR Unavailable Neyda Beltran MD Unavailable Ryanne Roblero MD Unavailable Unavailable Mi Martin LANGUAGE AND LITERATURE DIVISION CHAIR Unavailable Elijah Serra DO Primary Care Provider Micha [place] MD Unavailable Reason for Visit * Reason Onset Date Comments Results - Lab 04/10/2017 Encounter Details Date Type Department Care Team (Late st Contact Info) Description 04/10/2017 Telephone [facility] [address] [place] [address] [address] [place] [address] Neyda Beltran MD [address] [place] [id number] Results - Lab Social History Tobacco Use [...] Description 11/06/2024 11:00 AM EDT Office Visit [facility] Endocrinology [address] [place], [address] [place] [phone] Micha [place] MD [address] [place] [address] [place] [address] Molly Figueroa PA-C [address] [place] [address] [place] [address] documented as of this encounter Visit Diagnoses Not on filedocumented in this encounter Additional Health Concerns Infection Onset Date Last Indicated Resolved Time 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 02/24/2017 02/22/2017 02/22/2017 04/02/2024 9:[address] documented as of this encounter Care Teams Director Of Reservations Relationship Specialty Start Date End Date Yehuda Barger MD [address] [place] [address] [address] [place] [address] PCP - General 02/16/09 04/13/23 Elijah Serra DO 100 [place] [address] PCP - General Family Medicine 07/21/23 [place] Templeton MD [address] [place] [address] Gastroenterology 02/25/16 María Andre MD [address] [place] [address] Gastroenterology 03/08/16 Selene Rodriguez APRN [address] [place] [address] [address] [place], [place] [address] Gastroenterology 08/23/16 Mariah Flowers APRN [address] [place] [address] Nurse Practitioner 08/26/16 Neyda Beltran MD [address] [place] [address] Nephrology 03/17/17 Ryanne Roblero MD [address] [place] [address] Rheumatology 03/01/18 Mi Martin APRN [address] [place] [address] Nurse Practitioner Nurse Practitioner 04/16/19 Micha [place] MD [address] [place] [address] [address] [place], [place] [address] Endocrinology 08/06/24 08/06/24 documented as of this encounter
--- OUTSIDE RECORDS SUMMARY | 2024-08-20 15:24 | XMS_ITS | Encounter Summary ---
Author Organization [facility] Address [address] [place] [address] Support Name Relationship Address Phone Stepan Gold Personal Relationship [address] [place] [address] Mi Gold Personal Relationship Unknown Rosalind Mai Personal Relationship Unknown + [phone] Vivi Ward Personal Relationship Unknown [phone] Care Team Providers Care Food Science Technician Name Role Phone Yehuda Barger MD Primary Care Provider [phone] [place] Crum DO Primary Care Provider Miky Benton MD Primary Care Provider [phone] Provider, Historical Unavailable Unavailable Willi Templeton MD Unavailable [phone] María Andre MD Unavailable [phone] Selene Rodriguez LEGAL ANALYST Unavailable [phone] Mariah Flowers LEGAL ANALYST Unavailable [phone] Neyda Beltran MD Unavailable [phone] Ryanne Roblero MD Unavailable Unavailable Mi Martin APRN Unavailable [phone] Elijah Serra DO Primary Care Provider [phone] Micha [place] MD Unavailable Encounter Details Date Type Department Care Team (Late st Contact Info) Description 07/17/2002 Historical Encounter Global Horacio Gill MD [address] [place] [address] Social History Tobacco Use Types Packs/Day Years [...] Description 11/06/2024 11:00 AM EDT Office Visit [facility] [place] [place] [address], [address] [place] [address] Micha [place] MD [address] [place] [address] [address] [place], [place] [address] Molly Figueroa PA-C [address] [place] [address] [address] [place] [address] documented as of this encounter Visit Diagnoses Not on filedocumented in this encounter Additional Health Concerns Infection Onset Date Last Indicated Resolved Time 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 02/24/2017 02/22/2017 02/22/2017 04/02/2024 9:[address] documented as of this encounter Care Teams Food Science Technician Relationship Specialty Start Date End Date Yehuda Barger MD [address] [place] [address] [place] [address] [place] [address] PCP - General 02/16/09 04/13/23 [place] Crum DO [address] [place] [address] [place] [address] PCP - General 01/08/09 02/15/09 Miky Louis MD [address] [place] [address] PCP - General 12/26/07 01/07/09 Elijah Serra DO 100 [place] [address] PCP - General Family Medicine 07/21/23 Provider, Historical 02/16/16 08/25/16 Willi Templeton MD [address] [place] [address] Gastroenterology 02/25/16 María Andre MD [address] [place] [address] Gastroenterology 03/08/16 Selene Rodriguez APRN [address] [place] [address] 203 [place] [address] Gastroenterology 08/23/16 Mariah Flowers APRN [address] [place] [address] [address] [place] [address] Nurse Practitioner 08/26/16 Neyda Beltran MD [address] [place] [address] Nephrology 03/17/17 Ryanne Roblero MD [address] [place] [address] Rheumatology 03/01/18 Mi Martin APRN [address] [place] [address] 102 [place] [address] Nurse Practitioner Nurse Practitioner 04/16/19 Micha [place] MD [address] [place] [address] [address] [place] [address] Endocrinology 08/06/24 08/06/24 documented as of this encounter
--- OUTSIDE RECORDS SUMMARY | 2024-08-20 15:24 | XMS_ITS | Referral Summary ---
Author Organization [employer] ([place], [place], [place], [place]) Address [address] [place] [address] Care Team Providers Care International Accountant Name Role Phone Elijah Serra DO Primary Care Provider [phone] Allergies Active Allergy Reactions Criticality Noted Date [...] the past 12 months, has t he [employer] gas, oil, or water [employer] threatened to shut off services in your [...] language other than German at [facility]? No 09/05/2023 Do you want [...] Advance Directives For more information, please contact: [phone] * Full Code (Latest Code Status on File) Date Activated Date Inactivated Comments 09/05/2023 4:42 PM 09/06/2023 2:20 PM Care Teams International Accountant Relationship Specialty Start Date End Date Elijah Serra, DO [address] [facility] 1ST [place] [address] PCP - General Family Medicine 03/11/23
--- OUTSIDE RECORDS SUMMARY | 2024-08-20 15:24 | XMS_ITS | Encounter Summary ---
Author Organization [facility] Address [address] [place] [address] Support Name Relationship Address Phone Stepan Gold Personal Relationship [address] [place] [address] Mi Gold Personal Relationship Unknown Rosalind Mai Personal Relationship Unknown + [phone] Vivi Ward Personal Relationship Unknown [phone] Care Team Providers Care Prescription Eyeglass Maker Name Role Phone Yehuda Barger MD Primary Care Provider [phone] [place] Crum DO Primary Care Provider Miky Benton MD Primary Care Provider [phone] Provider, Historical Unavailable Unavailable Willi Templeton MD Unavailable [phone] María Andre MD Unavailable [phone] Selene Rodriguez FINISH OFF OPERATOR Unavailable [phone] Mariah Flowers FINISH OFF OPERATOR Unavailable [phone] Neyda Beltran MD Unavailable +[phone] Ryanne Roblero MD Unavailable Unavailable Mi Martin APRN Unavailable Elijah Serra DO Primary Care Provider [phone] Micha [place] MD Unavailable Encounter Details Date Type Department Care Team (Late st Contact Info) Description 07/03/2006 Historical Encounter Global James Connolly MD [facility] Emergency Dept. [address] [place] [address] Social History Tobacco Use Types Packs/Day Years [...] Description 11/06/2024 11:00 AM EDT Office Visit [facility] [address] [place], Medical [place] [address], [address] [place] [address] Micha [place] MD [address] [place] [address] [place] [id number] Molly Figueroa PA-C [address] [place] [address] [place] [address] documented as of this encounter Visit Diagnoses Not on filedocumented in this encounter Additional Health Concerns Infection Onset Date Last Indicated Resolved Time 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 02/24/2017 02/22/2017 02/22/2017 04/02/2024 9:[address] documented as of this encounter Care Teams Prescription Eyeglass Maker Relationship Specialty Start Date End Date Yehuda Barger MD [address] [place] [address] 1946 [facility] [place] [address] PCP - General 02/16/09 04/13/23 [place] Crum DO [address] [place] [address] [place] [address] PCP - General 01/08/09 02/15/09 Miky Louis MD [address] [place] [address] PCP - General 12/26/07 01/07/09 Elijah Serra DO 100 [place] [address] PCP - General Family Medicine 07/21/23 Provider, Historical 02/16/16 08/25/16 Willi Templeton MD [address] [place] [address] Gastroenterology 02/25/16 María Andre MD [address] [place] [address] [address] [place] [address] Gastroenterology 03/08/16 Selene Rodriguez APRN [address] [place] [address] 203 [place], [place] [address] Gastroenterology 08/23/16 Mariah Flowers APRN [address] [place] [address] [address] [place] [address] Nurse Practitioner 08/26/16 Neyda Beltran MD [address] [place] [address] [address] [place] [address] Nephrology 03/17/17 Ryanne Roblero MD [address] [address] [place] [address] Rheumatology 03/01/18 Mi Martin APRN [address] [place] [address] 102 [place] [address] Nurse Practitioner Nurse Practitioner 04/16/19 Micha [place] MD [address] [place] [address] [place], [place] [address] Endocrinology 08/06/24 08/06/24 documented as of this encounter
--- OUTSIDE RECORDS SUMMARY | 2024-08-20 15:24 | XMS_ITS | Encounter Summary ---
Author Organization [facility] Address [address] [place] [address] Support Name Relationship Address Phone Stepan Gold Personal Relationship [address] [place] [address] Mi Gold Personal Relationship Unknown Rosalind Mai Personal Relationship Unknown + [phone] Vivi Ward Personal Relationship Unknown [phone] Care Team Providers Care Payment Collector Name Role Phone Yehuda Barger MD Primary Care Provider [phone] [place] Crum DO Primary Care Provider Miky Benton MD Primary Care Provider [phone] Provider, Historical Unavailable Unavailable Willi Templeton MD Unavailable [phone] María Andre MD Unavailable [phone] Selene Rodriguez FARM MACHINERY ENGINE MECHANIC Unavailable [phone] Mariah Flowers FARM MACHINERY ENGINE MECHANIC Unavailable [phone] Neyda Beltran MD Unavailable [phone] Ryanne Roblero MD Unavailable Unavailable Mi Martin APRN Unavailable [phone] Elijah Serra DO Primary Care Provider [phone] Micha [place] MD Unavailable Encounter Details Date Type Department Care Team (Late st Contact Info) Description 04/12/2002 Historical Encounter Global Ryann Alex MD [facility] [facility] [address] Social History Tobacco Use Types Packs/Day Years [...] Description 11/06/2024 11:00 AM EDT Office Visit [facility] [address], [facility] [place], [address] [place] [address] Micha [place] MD [address] [place], [place] [address] Molly Figueroa PA-C [address] [place] [address] [address] [place] [address] documented as of this encounter Visit Diagnoses Not on filedocumented in this encounter Additional Health Concerns Infection Onset Date Last Indicated Resolved Time 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 02/24/2017 02/22/2017 02/22/2017 04/02/2024 9:[address] documented as of this encounter Care Teams Payment Collector Relationship Specialty Start Date End Date Yehuda Barger MD [address] [place] [address] B [place] [address] PCP - General 02/16/09 04/13/23 [place] Crum DO [address] [place] [address] [place] [address] PCP - General 01/08/09 02/15/09 Miky Louis MD [facility] [place] [address] PCP - General 12/26/07 01/07/09 Elijah Serra DO 100 [place] [address] PCP - General Family Medicine 07/21/23 Provider, Historical 02/16/16 08/25/16 Willi Templeton MD [address] [place] [address] Gastroenterology 02/25/16 María Andre MD [address] [address] [place] [address] Gastroenterology 03/08/16 Selene Rodriguez APRN [address] [place] [address] 203 [place] [address] Gastroenterology 08/23/16 Mariah Flowers APRN [address] [place] [address] [address] [place] [address] Nurse Practitioner 08/26/16 Neyda Beltran MD [address] [place] [address] Nephrology 03/17/17 Ryanne Roblero MD [address] [place] [address] Rheumatology 03/01/18 Mi Martin APRN [address] [place] [address] 102 [place] [address] Nurse Practitioner Nurse Practitioner 04/16/19 Micha [place] MD [address] [place] [address] [address] [place] [address] Endocrinology 08/06/24 08/06/24 documented as of this encounter
--- OUTSIDE RECORDS SUMMARY | 2024-08-20 15:24 | XMS_ITS | Encounter Summary ---
Author Organization [facility] Address [address] [place] [address] Support Name Relationship Address Phone Stepan Gold Personal Relationship [address] [facility] [place] [address] Mi Asif Personal Relationship Unknown Rosalind Andersonill Personal Relationship Unknown [phone] Vivi Ward Personal Relationship Unknown [phone] Care Team Providers Care Glaze Mixer Name Role Phone Lesley Grace MD Primary Care Provider [phone] Willi Templeton MD Unavailable María Andre MD Unavailable Selene Rodriguez RAIL GRINDER Unavailable Mariah Flowers RAIL GRINDER Unavailable [phone] Neyda Beltran MD Unavailable Ryanne Roblero MD Unavailable Unavailable Mi Martin RAIL GRINDER Unavailable [phone] Elijah Serra DO Primary Care Provider Micha [place] MD Unavailable Reason for Visit * Reason Onset Date Comments Medications Refill 05/23/2017 Encounter Details Date Type Department Care Team (Late st Contact Info) Description 05/23/[address] LESLEY GRACE MD, [facility] [address] [place] [address] Lesley Grace MD [address] [place] [address] [place] [address] Social History Tobacco Use Types Packs/Day Years [...] 11/06/2024 11:00 AM EDT Office Visit [facility] [address] [place] [address], [facility] [address] [place], [place] [address] Micha [place] MD [address] [place] [address] Molly Figueroa PA-C [address] [place] [address] [place] [address] documented as of this encounter Visit Diagnoses Not on filedocumented in this encounter Additional Health Concerns Infection Onset Date Last Indicated Resolved Time 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 02/24/2017 02/22/2017 02/22/2017 04/02/2024 9:[address] documented as of this encounter Care Teams Glaze Mixer Relationship Specialty Start Date End Date Lesley Grace MD [address] [place] [address] B [place] [address] PCP - General 02/16/09 04/13/23 Elijah Serra DO 100 [place] [address] PCP - General Family Medicine 07/21/23 Willi Templeton MD [address] [place] [address] 430 [place] [address] Gastroenterology 02/25/16 María Andre MD [address] [place] [address] 430 [place] [address] Gastroenterology 03/08/16 Selene Rodriguez APRN [address] [place] [address] 203 [place] [address] Gastroenterology 08/23/16 Mariah Flowers APRN [address] [place] [address] 510 [place] [address] Nurse Practitioner 08/26/16 Neyda Beltran MD [address] [place] [address] [address] [facility] [place] [address] Nephrology 03/17/17 Ryanne Roblero MD [address] [place] [address] [address] [facility] [place] [address] Rheumatology 03/01/18 Mi Martin APRN [address] [place] [address] 102 [place] [address] Nurse Practitioner Nurse Practitioner 04/16/19 Micha [place] MD [address] [place] [address] [address] [place] [address] Endocrinology 08/06/24 08/06/24 documented as of this encounter
--- OUTSIDE RECORDS SUMMARY | 2024-08-20 15:24 | XMS_ITS | Encounter Summary ---
Author Organization [facility] Address [address] [place] [address] Support Name Relationship Address Phone Stepan Gold Personal Relationship [address] [place] [address] Mi Gold Personal Relationship Unknown Rosalind Mai Personal Relationship Unknown + [phone] Vivi Ward Personal Relationship Unknown [phone] Care Team Providers Care Journeyman Painter Name Role Phone Yehuda Barger MD Primary Care Provider [phone] Milton Crum DO Primary Care Provider Miky Benton MD Primary Care Provider [phone] Provider, Historical Unavailable Unavailable Willi Templeton MD Unavailable [phone] María Andre MD Unavailable +[phone] Selene Rodriguez BOAT LOADER Unavailable +[phone] Mariah Flowers BOAT LOADER Unavailable [phone] Neyda Beltran MD Unavailable +[phone] Ryanne Roblero MD Unavailable Unavailable Mi Martin APRN Unavailable [phone] Elijah Serra DO Primary Care Provider [phone] Micha Washington MD Unavailable Encounter Details Date Type Department Care Team (Late st Contact Info) Description 02/08/2005 Historical Encounter Global Micha Washington MD [address] [place] [address] Social History Tobacco Use Types Packs/Day Years [...] 11/06/2024 11:00 AM EDT Office Visit [facility] [place] [address] [place], [facility] [place] [address], [address] [place] [phone] Micha Washington MD [address] [place] [address] [place] [address] [phone] Molly Figueroa PA-C [address] [place] [address] [phone] documented as of this encounter Visit Diagnoses Not on filedocumented in this encounter Additional Health Concerns Infection Onset Date Last Indicated Resolved Time 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 02/24/2017 02/22/2017 02/22/2017 04/02/2024 9:[address] documented as of this encounter Care Teams Journeyman Painter Relationship Specialty Start Date End Date Yehuda Barger MD [address] [place] [address] [place] [address] PCP - General 02/16/09 04/13/23 Milton Crum DO [address] [place] [address] [place] [address] PCP - General 01/08/09 02/15/09 Miky Louis MD [address] [place] [address] PCP - General 12/26/07 01/07/09 Elijah Serra DO 100 [place] [address] PCP - General Family Medicine 07/21/23 Provider, Historical 02/16/16 08/25/16 Willi Templeton MD [address] [facility] [address] [place] [address] Gastroenterology 02/25/16 María Andre MD [address] [place] [address] [address] [place] [address] Gastroenterology 03/08/16 Selene Rodriguez APRN [address] [place] [address] Gastroenterology 08/23/16 Mariah Flowers APRN [address] [place] [address] 510 [place] [address] Nurse Practitioner 08/26/16 Neyda Beltran MD [facility] [address] [place] [address] Nephrology 03/17/17 Ryanne Roblero MD [facility] [address] [place] [address] Rheumatology 03/01/18 Mi Martin APRN [address] [place] [address] [address] [place] [phone] Nurse Practitioner Nurse Practitioner 04/16/19 Micha Washington MD [address] [place] [address] [address] [place] [address] Endocrinology 08/06/24 08/06/24 documented as of this encounter
--- OUTSIDE RECORDS SUMMARY | 2024-08-20 15:24 | XMS_ITS | Encounter Summary ---
Author Organization [facility] Address [address] [place] [address] Support Name Relationship Address Phone Stepan Gold Personal Relationship [address] [facility] [place] [address] Mi Asif Personal Relationship Unknown Rosalind Mai Personal Relationship Unknown [phone] Vivi Ward Personal Relationship Unknown [phone] Care Team Providers Care Java Software Engineer Name Role Phone Lesley Grace MD Primary Care Provider [phone] Willi Templeton MD Unavailable María Andre MD Unavailable [phone] Selene Rodriguez GRINDING ROOM SUPERVISOR Unavailable Mariah Flowers GRINDING ROOM SUPERVISOR Unavailable Neyda Beltran MD Unavailable Ryanne Roblero MD Unavailable Unavailable Mi Martin GRINDING ROOM SUPERVISOR Unavailable [phone] Elijah Serra DO Primary Care Provider Micha Washington MD Unavailable Reason for Visit * Reason Onset Date Comments Medications Refill 05/08/2019 Encounter Details Date Type Department Care Team (Late st Contact Info) Description 05/08/[address] LESLEY GRACE MD, [facility] [address] [place] [address] Lesley Grace MD [address] [place] [address] [place] [address] [place] [address] Neuropathy Social History Tobacco Use Types Packs/Day [...] 11:00 AM EDT Office Visit [facility] [address] [place] [address] [place], [place] [phone] Micha Washington MD [address] [place] [address] Molly Figueroa PA-C [address] [place] [address] documented as of this encounter Visit Diagnoses Diagnosis Neuropathy Mononeuritis of unspecified site documented in this encounter Additional Health Concerns Infection Onset Date Last Indicated Resolved Time 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 02/24/2017 02/22/2017 02/22/2017 04/02/2024 9:[address] documented as of this encounter Care Teams Java Software Engineer Relationship Specialty Start Date End Date Lesley Grace MD [address] [place] [address] [place] [address] PCP - General 02/16/09 04/13/23 Elijah Serra DO 100 [place] [address] PCP - General Family Medicine 07/21/23 Willi Templeton MD [address] [place] [address] [address] [facility] [place] [address] Gastroenterology 02/25/16 María Andre MD [address] [place] [address] [address] [facility] [place] [address] Gastroenterology 03/08/16 Selene Rodriguez APRN [address] [place] [address] 203 [place] [address] Gastroenterology 08/23/16 Mariah Flowers APRN [address] [place] [address] 510 [place] [address] Nurse Practitioner 08/26/16 Neyda Beltran MD [address] [place] [address] [address] [facility] [place] [address] Nephrology 03/17/17 Ryanne Roblero MD [address] [place] [address] [address] [facility] [place] [address] Rheumatology 03/01/18 Mi Martin APRN [address] [place] [address] 102 [place] [address] Nurse Practitioner Nurse Practitioner 04/16/19 Micha Washington MD [address] [place] [address] [address] [place] [address] Endocrinology 08/06/24 08/06/24 documented as of this encounter
--- OUTSIDE RECORDS SUMMARY | 2024-08-20 15:24 | XMS_ITS | Encounter Summary ---
Author Organization [facility] Address [address] [place] [address] Support Name Relationship Address Phone Stepan Gold Personal Relationship [address] [place] [address] Mi Gold Personal Relationship Unknown Rosalind Mai Personal Relationship Unknown [phone] Vivi Ward Personal Relationship Unknown Care Team Providers Care Grocery Store Associate Name Role Phone Yehuda Barger MD Primary Care Provider Willi Templeton MD Unavailable [phone] María Andre MD Unavailable [phone] Selene Rodriguez ELECTRICIAN RADIO Unavailable +[phone] Mariah Flowers ELECTRICIAN RADIO Unavailable [phone] Neyda Beltran MD Unavailable [phone] Ryanne Roblero MD Unavailable Unavailable Mi Martin ELECTRICIAN RADIO Unavailable [phone] Elijah Serra DO Primary Care Provider Micha Washington MD Unavailable Reason for Visit * Reason Onset Date Comments Follow-up 03/29/2017 2nd post DC f/u call made per ACM since most recent DC. No answer. Will continue to try to reach this pt. Encounter Details Date Type Department Care Team (Late st Contact Info) Description 03/29/2017 Telephone Population Health Management [address] [place] [phone] Billie Pathak RN Follow-up (2nd post [...] Office Visit [facility] [address] [place], [facility] [place], [address] [place], [place] [phone] Micha Washington MD [address] [place] [address] Molly Figueroa PA-C [address] [place] [address] documented as of this encounter Visit Diagnoses Not on filedocumented in this encounter Additional Health Concerns Infection Onset Date Last Indicated Resolved Time 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 02/24/2017 02/22/2017 02/22/2017 04/02/2024 9:[address] documented as of this encounter Care Teams Grocery Store Associate Relationship Specialty Start Date End Date Yehuda Barger MD [address] [place] [address] [address] [facility] [place] [address] PCP - General 02/16/09 04/13/23 Elijah Serra DO 100 [place] [address] PCP - General Family Medicine 07/21/23 Willi Templeton MD [address] [place] [address] Gastroenterology 02/25/16 María Andre MD [address] [place] [address] Gastroenterology 03/08/16 Selene Rodriguez APRN [address] [place] [address] 203 [place] [address] Gastroenterology 08/23/16 Mariah Flowers APRN 613 [facility] [address] 510 [place] [address] Nurse Practitioner 08/26/16 Neyda Beltran MD [address] [place] [address] Nephrology 03/17/17 Ryanne Roblero MD [address] [place] [address] Rheumatology 03/01/18 Mi Martin APRN [address] [place] [address] 102 [place] [address] Nurse Practitioner Nurse Practitioner 04/16/19 Micha Washington MD [address] [place] [address] [address] [place], [place] [address] Endocrinology 08/06/24 08/06/24 documented as of this encounter
--- OUTSIDE RECORDS SUMMARY | 2024-08-20 15:24 | XMS_ITS | Encounter Summary ---
Author Organization [facility] Address [address] [place] [address] Support Name Relationship Address Phone Stepan Gold Personal Relationship [address] [place] [address] Mi Gold Personal Relationship Unknown Rosalind Mai Personal Relationship Unknown + [phone] Vivi Ward Personal Relationship Unknown [phone] Care Team Providers Care Forestry Support Specialist Name Role Phone Yehuda Barger MD Primary Care Provider [phone] Milton Crum DO Primary Care Provider Miky Benton MD Primary Care Provider [phone] Provider, Historical Unavailable Unavailable Willi Templeton MD Unavailable [phone] María Andre MD Unavailable [phone] Selene Rodriguez HOUSING COORDINATOR Unavailable +[phone] Mariah Flowers HOUSING COORDINATOR Unavailable [phone] Neyda Beltran MD Unavailable [phone] Ryanne Roblero MD Unavailable Unavailable Mi Martin APRN Unavailable [phone] Elijah Serra DO Primary Care Provider [phone] Micha Washington MD Unavailable Encounter Details Date Type Department Care Team (Late st Contact Info) Description 04/23/2002 Historical Encounter Ryann Day MD [facility] [facility] [address] Social History Tobacco Use Types Packs/Day Years [...] AM EDT Office Visit [facility] [address], [facility] [place], [address] [place] [address] Micha Washington MD [address] [place], [place] [phone] Molly Figueroa PA-C [address] [place] [address] [address] [place] [address] documented as of this encounter Visit Diagnoses Not on filedocumented in this encounter Additional Health Concerns Infection Onset Date Last Indicated Resolved Time 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 02/24/2017 02/22/2017 02/22/2017 04/02/2024 9:[address] documented as of this encounter Care Teams Forestry Support Specialist Relationship Specialty Start Date End Date Yehuda Barger MD [address] [place] [address] B [place] [address] PCP - General 02/16/09 04/13/23 Milton Crum DO [address] [place] [address] [place] [address] PCP - General 01/08/09 02/15/09 Miky Louis MD [facility] [place] [address] PCP - General 12/26/07 01/07/09 Elijah Serra DO 100 [place] [address] PCP - General Family Medicine 07/21/23 Provider, Historical 02/16/16 08/25/16 Willi Templeton MD [address] [place] [address] Gastroenterology 02/25/16 María Andre MD [address] [address] [place] [address] Gastroenterology 03/08/16 Selene Rodriguez APRN [address] [place] [address] 203 [place] [address] Gastroenterology 08/23/16 Mariah Flowers APRN [address] [place] [address] [address] [place] [address] Nurse Practitioner 08/26/16 Neyda Beltran MD [address] [address] [place] [address] Nephrology 03/17/17 Ryanne Roblero MD [address] [place] [address] Rheumatology 03/01/18 Mi Martin APRN [address] [place] [address] 102 [place] [address] Nurse Practitioner Nurse Practitioner 04/16/19 Micha Washington MD [address] [place] [address] [address] [place] [address] Endocrinology 08/06/24 08/06/24 documented as of this encounter
--- OUTSIDE RECORDS SUMMARY | 2024-08-20 15:24 | XMS_ITS | Encounter Summary ---
Author Organization [facility] Address [address] [place] [address] Support Name Relationship Address Phone Stepan Gold Personal Relationship [address] [place] [address] Mi Gold Personal Relationship Unknown Rosalind Mai Personal Relationship Unknown + [phone] Vivi Ward Personal Relationship Unknown [phone] Care Team Providers Care Associate Dentist Name Role Phone Yehuda Barger MD Primary Care Provider [phone] Milton Crum DO Primary Care Provider Miky Benton MD Primary Care Provider [phone] Provider, Historical Unavailable Unavailable Willi Templeton MD Unavailable [phone] María Andre MD Unavailable [phone] Selene Rodriguez MAGNETO SPECIALIST Unavailable +[phone] Mariah Flowers MAGNETO SPECIALIST Unavailable [phone] Neyda Beltran MD Unavailable +[phone] Ryanne Roblero MD Unavailable Unavailable Mi Martin APRN Unavailable [phone] Elijah Serra DO Primary Care Provider [phone] Micha Washington MD Unavailable Encounter Details Date Type Department Care Team (Late st Contact Info) Description 06/13/2003 Historical Encounter Global Yehuda Barger MD [address] [place] [address] Social History Tobacco Use Types Packs/Day Years [...] Description 11/06/2024 11:00 AM EDT Office Visit [facility] [place] [address] [place], [facility] [place] [address], [address] [place] [phone] Micha Washington MD [address] [place] [address] [place] [address] Molly Figueroa PA-C [address] [place] [address] [place] [address] documented as of this encounter Visit Diagnoses Not on filedocumented in this encounter Additional Health Concerns Infection Onset Date Last Indicated Resolved Time 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 02/24/2017 02/22/2017 02/22/2017 04/02/2024 9:[address] documented as of this encounter Care Teams Associate Dentist Relationship Specialty Start Date End Date Yehuda Barger MD [address] [place] [address] PCP - General 02/16/09 04/13/23 Milton Crum DO [address] [place] [address] PCP - General 01/08/09 02/15/09 Miky Louis MD [address] [place] [address] PCP - General 12/26/07 01/07/09 Elijah Serra DO 100 [place] [address] PCP - General Family Medicine 07/21/23 Provider, Historical 02/16/16 08/25/16 Willi Templeton MD [address] [facility] [address] [place] [address] Gastroenterology 02/25/16 María Andre MD [address] [place] [address] [address] [place] [address] Gastroenterology 03/08/16 Selene Rodriguez APRN [address] [place] [address] Gastroenterology 08/23/16 Mariah Flowers APRN [address] [place] [address] 510 [place] [address] Nurse Practitioner 08/26/16 Neyda Beltran MD [address] [address] [place] [address] Nephrology 03/17/17 Ryanne Roblero MD [address] [address] [place] [address] Rheumatology 03/01/18 Mi Martin APRN [address] [place] [address] [address] [place] [address] Nurse Practitioner Nurse Practitioner 04/16/19 Micha Washington MD [address] [place] [address] [address] [place] [address] Endocrinology 08/06/24 08/06/24 documented as of this encounter
--- OUTSIDE RECORDS SUMMARY | 2024-08-20 15:25 | XMS_ITS | Encounter Summary ---
Author Organization [employer] ([place], [place], [place], [place]) Address [address] [place] [address] Care Team Providers Care Ranch Cook Name Role Phone Elijah Serra DO Primary Care Provider [phone] Encounter Details Date Type Department Care Team (Late st Contact Info) Description 07/20/2021 Transcribed Document [facility] Family Medicine [address] [place] [address] ProviderMichael MD [address] [place] [address] Social History Tobacco Use Types [...] Do you speak a language other than Georgian at [facility]? No 09/05/2023 Do you want help [...] 16:33 EDT Electronically signed by Florencia [facility] Conversion Graphic Technician Cerner at 05/25/2022 6:25 PM CDT documented in this encounter Plan of Treatment Not on file documented as of this encounter Visit Diagnoses Not on filedocumented in this encounter Care Teams Ranch Cook Relationship Specialty Start Date End Date Elijah Serra, DO 100 [facility] 1ST [place] [address] PCP - General Family Medicine 03/11/23 documented as of this encounter
--- OUTSIDE RECORDS SUMMARY | 2024-08-20 15:25 | XMS_ITS | Encounter Summary ---
Author Organization [facility] Address [address] [place] [address] Support Name Relationship Address Phone Stepan Gold Personal Relationship [address] [facility] [place] [address] Mi Asif Personal Relationship Unknown Rosalind Mai Personal Relationship Unknown [phone] Vivi Ward Personal Relationship Unknown Care Team Providers Care Outside Event Sales Specialist Name Role Phone Lesley Grace MD Primary Care Provider [phone] Willi Templeton MD Unavailable María Andre MD Unavailable Selene Rodriguez SHOP REPAIRER Unavailable Mariah Flowers SHOP REPAIRER Unavailable Neyda Beltran MD Unavailable Ryanne Roblero MD Unavailable Unavailable Mi Martin SHOP REPAIRER Unavailable [phone] Elijah Serra DO Primary Care Provider Micha Washington MD Unavailable Reason for Visit * Reason Onset Date Comments Medications Refill 08/20/2019 Encounter Details Date Type Department Care Team (Late st Contact Info) Description 08/20/[address] LESLEY GRACE MD, [facility] [address] [place] [phone] Lesley Grace MD [address] [place] [address] [place] [address] Erosive osteoarthritis of multiple sites Social History [...] 11:00 AM EDT Office Visit [facility] [address] [place] [address], [facility] [address] [place], [place] [address] Micha Washington MD [address] [place] [address] [place] [address] Molly Figueroa PA-C [address] [place] [address] documented as of this encounter Visit Diagnoses Diagnosis Erosive osteoarthritis of multiple sites documented in this encounter Additional Health Concerns Infection Onset Date Last Indicated Resolved Time 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 02/24/2017 02/22/2017 02/22/2017 04/02/2024 9:[address] documented as of this encounter Care Teams Outside Event Sales Specialist Relationship Specialty Start Date End Date Lesley Grace MD [address] [place] [address] [place] [address] PCP - General 02/16/09 04/13/23 Elijah Serra DO 100 [place] [address] PCP - General Family Medicine 07/21/23 Willi Templeton MD [address] [place] [address] [address] [facility] [place] [address] Gastroenterology 02/25/16 María Andre MD [address] [place] [address] [address] [facility] [place] [address] Gastroenterology 03/08/16 Selene Rodriguez APRN [address] [place] [address] 203 [place] [address] Gastroenterology 08/23/16 Mariah Flowers APRN [address] [place] [address] 510 [place] [address] Nurse Practitioner 08/26/16 Neyda Beltran MD [address] [place] [address] [address] [facility] [place] [address] Nephrology 03/17/17 Ryanne Roblero MD [address] [place] [address] 510 [facility] [place] [address] Rheumatology 03/01/18 Mi Martin APRN [address] [place] [address] 102 [place] [address] Nurse Practitioner Nurse Practitioner 04/16/19 Micha [place] MD [address] [place] [address] [address] [place] [address] Endocrinology 08/06/24 08/06/24 documented as of this encounter
--- OUTSIDE RECORDS SUMMARY | 2024-08-20 15:25 | XMS_ITS | Encounter Summary ---
Author Organization [facility] Address [address] [place] [address] Support Name Relationship Address Phone Stepan Gold Personal Relationship [address] [place] [address] Mi Gold Personal Relationship Unknown Rosalind Mai Personal Relationship Unknown [phone] Vivi Ward Personal Relationship Unknown Care Team Providers Care Gis Geographer Name Role Phone Yehuda Barger MD Primary Care Provider Willi Templeton MD Unavailable María Andre MD Unavailable Selene Rodriguez TRUCK DRIVER INSTRUCTOR Unavailable Mariah Flowers TRUCK DRIVER INSTRUCTOR Unavailable Neyda Beltran MD Unavailable Ryanne Roblero MD Unavailable Unavailable Mi Martin TRUCK DRIVER INSTRUCTOR Unavailable [phone] Elijah Serra DO Primary Care Provider [phone] Micha [place] MD Unavailable Reason for Visit * Reason Onset Date Comments Follow-up 09/17/2016 Closure call pernell e per ACM. No answer. Letter sent with my contact information for pt's reference as needed. Pt. has not been readmitted x 30 days, goal met. Encounter Details Date Type Department Care Team (Late st Contact Info) Description 09/17/2016 Telephone Population Health Management [address] [place] [address] Billie Pathak RN Follow-up (Closure call made per ACM. [...] Office Visit [facility] [address] [place] [address], [facility], [place] [phone] Micha [place] MD [address] [place] [address] Molly Figueroa PA-C [address] [place] [address] documented as of this encounter Visit Diagnoses Not on filedocumented in this encounter Additional Health Concerns Infection Onset Date Last Indicated Resolved Time 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 02/24/2017 02/22/2017 02/22/2017 04/02/2024 9:[address] documented as of this encounter Care Teams Gis Geographer Relationship Specialty Start Date End Date Yehuda Barger MD [address] [place] [address] 1948 [facility] [place] [address] PCP - General 02/16/09 04/13/23 Elijah Serra DO [address] [place] [address] PCP - General Family Medicine 07/21/23 Willi Templeton MD [address] [place] [address] [facility] [place] [address] Gastroenterology 02/25/16 María Andre MD [address] [place] [address] [facility] [place] [address] Gastroenterology 03/08/16 Selene Rodriguez APRN [address] [place] [address] Gastroenterology 08/23/16 Mariah Flowers APRN [address] [place] [address] [address] [place] [address] Nurse Practitioner 08/26/16 Neyda Beltran MD [address] [place] [address] [address] [facility] [place] [address] Nephrology 03/17/17 Ryanne Roblero MD [address] [place] [address] [address] [facility] [place] [address] Rheumatology 03/01/18 Mi Martin APRN [address] [place] [address] [address] [place] [address] Nurse Practitioner Nurse Practitioner 04/16/19 Micha [place] MD [address] [place] [address] [address] [place] [address] Endocrinology 08/06/24 08/06/24 documented as of this encounter
--- OUTSIDE RECORDS SUMMARY | 2024-08-20 15:25 | XMS_ITS | Encounter Summary ---
Author Organization [employer] ([place], [place], [place], [place]) Address [address] [place] [address] Care Team Providers Care Developer Advisor Name Role Phone Elijah Serra DO Primary Care Provider [phone] Encounter Details Date Type Department Care Team (Late st Contact Info) Description 07/19/2021 Transcribed Document [facility] Family Medicine [address] [place] [address] ProviderMichael MD [address] [place] [address] Social History Tobacco Use Types [...] Do you speak a language other than Guinean at [facility]? No 09/05/2023 Do you want [...] 07/19/2021 6:04 EDT Electronically signed by Florencia [facility] Conversion Wire Fence Erector Cerner at 05/25/2022 6:27 PM CDT documented in this encounter Plan of Treatment Not on file documented as of this encounter Visit Diagnoses Not on filedocumented in this encounter Care Teams Developer Advisor Relationship Specialty Start Date End Date Elijah Serra, DO [address] [facility] 1ST [place] [address] PCP - General Family Medicine 03/11/23 documented as of this encounter
--- OUTSIDE RECORDS SUMMARY | 2024-08-20 15:25 | XMS_ITS | Encounter Summary ---
Author Organization [employer] ([place], [place], [place], [place]) Address [address] [place] [address] Care Team Providers Care Rotary Saw Operator Name Role Phone Elijah Serra DO Primary Care Provider [phone] Encounter Details Date Type Department Care Team (Late st Contact Info) Description 07/20/2021 Transcribed Document [facility] Family Medicine [address] [place] [address] ProviderMichael MD [address] [place] [address] Social History Tobacco Use Types [...] Never 09/05/2023 How often does anyone, comfort awlters family and friends, insult or talk down [...] a language other than South African at [facility]? No 09/05/2023 Do you want help [...] 07/20/2021 3:41 EDT Electronically signed by Florencia [facility] Conversion Title Coordinator Cerner at 05/25/2022 6:07 PM CDT documented in this encounter Plan of Treatment Not on file documented as of this encounter Visit Diagnoses Not on filedocumented in this encounter Care Teams Rotary Saw Operator Relationship Specialty Start Date End Date Elijah Serra, DO [address] [facility] 1ST [place] [address] PCP - General Family Medicine 03/11/23 documented as of this encounter
--- OUTSIDE RECORDS SUMMARY | 2024-08-20 15:25 | XMS_ITS | Encounter Summary ---
Author Organization [facility] [place] [facility] Address [address] [place] [address] Support Name Relationship Address Phone Stepan Gold Personal Relationship [address] [place] [address] Mi Gold Personal Relationship Unknown Rosalind Mai Personal Relationship Unknown [phone] Vivi Ward Personal Relationship Unknown Care Team Providers Care Subsurface Augmentee Operator Name Role Phone Yehuda Barger MD Primary Care Provider [phone] Willi Templeton MD Unavailable María Andre MD Unavailable [phone] Selene Rodriguez STAFF DEVELOPMENT COORDINATOR RN Unavailable Mariah Flowers STAFF DEVELOPMENT COORDINATOR RN Unavailable Neyda Beltran MD Unavailable Ryanne Roblero MD Unavailable Unavailable Mi Martin STAFF DEVELOPMENT COORDINATOR RN Unavailable [phone] Elijah Serra DO Primary Care Provider Micha [place] MD Unavailable Encounter Details Date Type Department Care Team (Late st Contact Info) Description 03/22/2020 Orders Only [facility] [address] [address] Alfonso Goyal MD [address] [place] [address] Social History Tobacco Use Types Packs/Day Years [...] 11/06/2024 11:00 AM EDT Office Visit [facility] [address] [place] [address], [facility], [address] [place] [phone] Micha [place] MD [address] [place] [address] Molly Figueroa PA-C [address] [place] [address] documented as of this encounter Visit Diagnoses Not on filedocumented in this encounter Additional Health Concerns Infection Onset Date Last Indicated Resolved Time 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 02/24/2017 02/22/2017 02/22/2017 04/02/2024 9:[address] documented as of this encounter Care Teams Subsurface Augmentee Operator Relationship Specialty Start Date End Date Yheuda Barger MD [address] [place] [address] [place] [address] [place] [address] PCP - General 02/16/09 04/13/23 Elijah Serra DO [address] [place] [address] PCP - General Family Medicine 07/21/23 Willi Templeton MD [address] [place] [address] [address] [place] [address] Gastroenterology 02/25/16 María Andre MD [address] [address] [place] [address] Gastroenterology 03/08/16 Selene Rodriguez APRN [address] [place] [address] [address] [place] [address] Gastroenterology 08/23/16 Mariah Flowers APRN [address] [place] [address] [address] [place] [address] Nurse Practitioner 08/26/16 Neyda Beltran MD [address] [place] [address] [address] [place] [address] Nephrology 03/17/17 Ryanne Roblero MD [address] [place] [address] [address] [facility] [place] [address] Rheumatology 03/01/18 Mi Martin APRN [address] [place] [address] [address] [place] [phone] Nurse Practitioner Nurse Practitioner 04/16/19 Micha [place] MD [address] [place] [address] [address] [place] [address] Endocrinology 08/06/24 08/06/24 documented as of this encounter
--- OUTSIDE RECORDS SUMMARY | 2024-08-20 15:25 | XMS_ITS | Encounter Summary ---
Author Organization [employer] ([place], [place], [place], [place]) Address [address] [place] [address] Care Team Providers Care Riding Teacher Name Role Phone Elijah Serra DO Primary Care Provider [phone] Encounter Details Date Type Department Care Team (Late st Contact Info) Description 07/20/2021 Transcribed Document [facility] Family Medicine [address] [place] [address] ProviderMichael MD [address] [place] [address] Social History Tobacco Use Types [...] Do you speak a language other than Hong Konger at [facility]? No 09/05/2023 Do you want help [...] On: 07/20/2021 15:29 EDT by DEVI CLAROS Land Surveying Party Chief-Site Superintendent Initial Assessment I Emergency Contact #1 Emergency [...] Yes Emergency Contact #1 : DEVI Sifuentes Land Surveying Party Chief-Site Superintendent - 07/20/2021 15:31 EDT Previously Documented Living Environment : No qualifying data available. Living Situation : Home Patient Lives With : Spouse Is the Patient a Caregiver at Home? : No DEVI CLAROS Land Surveying Party Chief-Site Superintendent - 07/20/2021 15:29 EDT Initial Assessment II Sensory and Motor Deficits : None Current Home Treatments and Equipment : None DEVI CLAROS Land Surveying Party Chief-Site Superintendent - 07/20/2021 15:31 EDT Discharge Needs I Anticipated Discharge Date : 07/21/2021 EDT Anticipated Discharge To, CM : Home independently, Home with family care Current Home Treatment/Equipment : Current Home Treatment/Equipment No qualifying data available. Post Acute/Home Treatments : None Documentation Status Complete : Yes DEVI CLAROS Land Surveying Party Chief-Site Superintendent - 07/20/2021 15:31 EDT Discharge Needs II Professional Skilled Services : Professional Skilled Services No qualifying data available. Needs Assistance with Transportation : No Discharge Options Discussed with Patient : Discharge transportation, DME, Home Health Patient Discharge Goal : Home DEVI CLAROS, Land Surveying Party Chief-Site Superintendent - 07/20/2021 15:31 EDT Narrative Note Narrative Note : Patient reported that he is ADL independent and does not use DME. He reported that he had HH in the pasty after a knee replacement years ago. and denied having any discharge needs. Reported to having safe transport home. Cm will continue to follow. DEVI CLAROS Land Surveying Party Chief-Site Superintendent - 07/20/2021 15:31 EDT documented in this encounter Plan of Treatment Not on file documented as of this encounter Visit Diagnoses Not on filedocumented in this encounter Care Teams Riding Teacher Relationship Specialty Start Date End Date Elijah Serra, DO 100 [facility] 1ST [place] [phone] PCP - General Family Medicine 03/11/23 documented as of this encounter
--- OUTSIDE RECORDS SUMMARY | 2024-08-20 15:25 | XMS_ITS | Encounter Summary ---
Author Organization [employer] ([place], [place], [place], [place]) Address [address] [place] [address] Care Team Providers Care Mortuary Beautician Name Role Phone Elijah Serra DO Primary Care Provider [phone] Encounter Details Date Type Department Care Team (Late st Contact Info) Description 07/19/2021 Transcribed Document [facility] Family [place] [address] [place] [address] ProviderMichael MD [address] [place] [address] Social History Tobacco Use Types [...] speak a language other than Cymraes at [facility]? No [...] ROBLES MD-INT) Heparin 5,000 Units, SubCutaneous, Inj, [id number], Routine, Start 07/18/21 15:00:00 EDT, 07/18/21 14:02:00 [...] PRN heparin, 5000 Units= 1 mL, SubCutaneous, [id number] hydrALAZINE, 5 mg= 0.25 mL, IV Push, [...] # 0.54 x10(3)/uL (Low) 07/18/2021 11:49 EDT Kleberg % 6.2 % 07/19/2021 06:51 EDT Kleberg % 7.2 % 07/18/2021 11:49 EDT Kleberg # 0.20 K/uL 07/19/2021 06:51 EDT Kleberg # 0.26 K/uL 07/18/2021 11:49 EDT Eos [...] on filedocumented in this encounter Care Teams Mortuary Beautician Relationship Specialty Start Date End Date Elijah Serra, DO [address] [facility] 1ST [place] [address] PCP - General Family Medicine 03/11/23 documented as of this encounter
--- OUTSIDE RECORDS SUMMARY | 2024-08-20 15:25 | XMS_ITS | Encounter Summary ---
Author Organization [facility] Address [address] [place] [address] Support Name Relationship Address Phone Stepan Gold Personal Relationship [address] [place] [address] Mi Gold Personal Relationship Unknown Rosalind Mai Personal Relationship Unknown [phone] Vivi Ward Personal Relationship Unknown [phone] Care Team Providers Care Radiator Tester Name Role Phone Yehuda Barger MD Primary Care Provider Provider, Historical Unavailable Unavailable Willi Templeton MD Unavailable María Andre MD Unavailable Selene Rodriguez ACCOUNT RESOLUTION SPECIALIST Unavailable Mariah Flowers ACCOUNT RESOLUTION SPECIALIST Unavailable Neyda Beltran MD Unavailable Ryanne Roblero MD Unavailable Unavailable Mi Martin ACCOUNT RESOLUTION SPECIALIST Unavailable [phone] Elijah Serra DO Primary Care Provider [phone] Micha [place] MD Unavailable Encounter Details Date Type Department Care Team (Late st Contact Info) Description 07/14/2016 Orders Only [facility] [place] [address] [place] [phone] Nisa Quijano, MARY Social History Tobacco Use Types Packs/Day Years [...] 11/06/2024 11:00 AM EDT Office Visit [facility] [address] [place], [facility], [address] [place] [address] Micha [place] MD [address] [place] [address] [address] [place], [place] [phone] Molly Figueroa PA-C [address] [place] [address] [address] [place], [place] [phone] documented as of this encounter Visit Diagnoses Not on filedocumented in this encounter Additional Health Concerns Infection Onset Date Last Indicated Resolved Time 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 02/24/2017 02/22/2017 02/22/2017 04/02/2024 9:[address] documented as of this encounter Care Teams Radiator Tester Relationship Specialty Start Date End Date Yehuda Barger MD [address] [place] [address] [facility] [place] [address] PCP - General 02/16/09 04/13/23 Elijah Serra DO [address] [place] [address] PCP - General Family Medicine 07/21/23 Provider, Historical 02/16/16 08/25/16 Willi Templeton MD [address] [place] [address] [address] [place] [address] Gastroenterology 02/25/16 María Andre MD [address] [facility] [address] [place] [address] Gastroenterology 03/08/16 Selene Rodriguez APRN [address] [place] [address] 203 [place] [address] Gastroenterology 08/23/16 Mariah Flowers APRN [address] [place] [address] [address] [place] [address] Nurse Practitioner 08/26/16 Neyda Beltran MD [address] [place] [address] Nephrology 03/17/17 Ryanne Roblero MD [address] [place] [address] Rheumatology 03/01/18 Mi Martin APRN [address] [place] [address] [address] [place] [phone] Nurse Practitioner Nurse Practitioner 04/16/19 Micha [place] MD [address] [place] [address] [address] [place] [address] Endocrinology 08/06/24 08/06/24 documented as of this encounter
--- OUTSIDE RECORDS SUMMARY | 2024-08-20 15:25 | XMS_ITS | Encounter Summary ---
Author Organization [employer] ([place], [place], [place], [place]) Address [address] [place] [address] Care Team Providers Care Civil Division Commander Deputy Sheriff Name Role Phone Elijah Serra DO Primary Care Provider [phone] Encounter Details Date Type Department Care Team (Late st Contact Info) Description 07/20/2021 Transcribed Document [facility] Family Medicine [address] [place] [address] ProviderMichael MD [address] [place] [address] Social History Tobacco Use Types [...] speak a language other than Georgian at [facility]? No 09/05/2023 [...] Historical Provider, - 07/20/2021 2:00 AM CDT Newspaper Vendor Details Entered On: 07/20/2021 3:41 EDT Performed [...] 07/20/2021 3:41 EDT Electronically signed by Florencia [facility] Conversion Manhole Stripper Cerner at 05/25/2022 6:02 PM CDT documented in this encounter Plan of Treatment Not on file documented as of this encounter Visit Diagnoses Not on filedocumented in this encounter Care Teams Civil Division Commander Deputy Sheriff Relationship Specialty Start Date End Date Elijah Serra, DO [address] [facility] 1ST [place] [address] PCP - General Family Medicine 03/11/23 documented as of this encounter
--- OUTSIDE RECORDS SUMMARY | 2024-08-20 15:25 | XMS_ITS | Encounter Summary ---
Author Organization [employer] ([place], [place], [place], [place]) Address [address] [place] [address] Care Team Providers Care Statistics Professor Name Role Phone Elijah Serra DO Primary Care Provider [phone] Encounter Details Date Type Department Care Team (Late st Contact Info) Description 07/20/2021 Transcribed Document [facility] [place] [address] [place] [address] ProviderMichael MD [address] [place] [address] Social History Tobacco Use Types [...] Do you speak a language other than Spanish at [facility]? No 09/05/2023 [...] white, wheat or rye breads, plain breadsticks, american muffins, hamburger buns, plain bagels, plain cake doughnuts, mery breads, baked flours or corn tortillas, crackers including coty, animal, saltine, oyster and matzo, snacks including unsalted pretzels, popcorn, baked tortilla chips or potato chips. Homemade breads (biscuits, muffins, cornbread, rolls, pancakes and azeri toast) should be made with oils low [...] choose prepared products such as muffins, frozen azeri toast and waffles, biscuits, croissants and other [...] 5 large olives is considered a serving. --Gray oil and peanut oil are higher in [...] diet, please call the registered dietitians at [facility] at or . We will be [...] sugar-free varieties to be more thirst quenching. --[place] your teeth. --Chill mouthwash and gargle for [...] quickly after you eat. Medicines ??? Take kplr-xpo-drvabxp and prescription medicines only as told by [...] provider. Document Revised: 07/20/2018 Document Reviewed: 07/20/2018 [employer] Patient Education ? 2020 [employer]. Hypertension, Adult Hypertension is another name for [...] doctor. This is important. Medicines ??? Take wqul-vme-lbfbvfb and prescription medicines only as told by [...] provider. Document Revised: 10/04/2018 Document Reviewed: 10/04/2018 [employer] Patient Education ? 2020 [employer] Heart Failure Action Plan A heart [...] Follow these instructions at home: ??? Take ecax-hiw-wmypuif and prescription medicines only as told by your health care provider. ??? Weigh yourself daily. Your target weight is lb ( kg). ? Call your health care provider if you gain more than lb ( kg) in a day, or more than lb ( kg) in one week. ??? Eat a heart-healthy diet. Work with a diet and nutrition partner (dietitian) to create an eating plan that is best for you. ??? Keep all follow-up visits as told by your health care provider. This is important. Where to find more information ??? [place] [employer]: www.heart.org Summary ??? Follow the [...] provider. Document Revised: 01/06/2018 Document Reviewed: 03/05/2017 [employer] Patient Education ? 2020 [employer] Heart Failure Exacerbation Heart failure is [...] these instructions at home: Medicines ??? Take oyyh-mqc-vebtfqo and prescription medicines only as told by your health care provider. ??? Do not stop taking your medicines or change the amount you take. If you are having problems or side effects from your medicines, talk to your health care provider. ??? If you are having difficulty paying for your medicines, contact a social service coordinator or your clinic. There are many programs [...] provider. Document Revised: 08/16/2020 Document Reviewed: 08/16/2020 [employer] Patient Education ? 2020 [employer] Heart Failure, Diagnosis Heart failure means [...] provider. Document Revised: 08/16/2020 Document Reviewed: 08/16/2020 And[employer] Patient Education ? 2020 [employer]. Forms Blood Pressure Record Sheet To take [...] provider. Document Revised: 05/14/2020 Document Reviewed: 05/14/2020 [employer] Patient Education ? 2020 [employer] Infectious Disease Community-Acquired Pneumonia, Adult Pneumonia [...] these instructions at home: Medicines ??? Take onig-ziz-qiciqmq and prescription medicines only as told by [...] cannot use soap and water, use hand railroad inspector. Contact a doctor if: ??? You have [...] provider. Document Revised: 11/06/2019 Document Reviewed: 11/06/2019 [employer] Patient Education ? 2020 [employer]. documented in this encounter Plan of Treatment Not on file documented as of this encounter Visit Diagnoses Not on filedocumented in this encounter Care Teams Statistics Professor Relationship Specialty Start Date End Date Elijah Serra, DO [address] [facility] 1ST [place] [address] PCP - General Family Medicine 03/11/23 documented as of this encounter
--- OUTSIDE RECORDS SUMMARY | 2024-08-20 15:25 | XMS_ITS | Encounter Summary ---
Author Organization [employer] ([place], [place], [place], [place]) Address [address] [place] [address] Care Team Providers Care Emergency Medicine Nurse Practitioner Name Role Phone Elijah Serra DO Primary Care Provider [phone] Encounter Details Date Type Department Care Team (Late st Contact Info) Description 07/20/2021 Transcribed Document [facility] [place] [place] Family Medicine [address] [place] [address] ProviderMichael MD [address] [place] [address] Social History Tobacco Use Types [...] Do you speak a language other than [place] at [facility]? No 09/05/2023 [...] ROBLES MD-INT) Heparin 5,000 Units, SubCutaneous, Inj, [id number], Routine, Start 07/18/21 15:00:00 EDT, 07/18/21 14:02:00 [...] PRN heparin, 5000 Units= 1 mL, SubCutaneous, [id number] hydrALAZINE, 5 mg= 0.25 mL, IV Push, [...] (High) 07/19/2021 10:42 EDT Electronically signed by [facility] Conversion Reservation Sales Agent Cerner at 05/25/2022 6:23 PM CDT documented in this encounter Plan of Treatment Not on file documented as of this encounter Visit Diagnoses Not on filedocumented in this encounter Care Teams Emergency Medicine Nurse Practitioner Relationship Specialty Start Date End Date Elijah Serra, DO 100 [facility] 1ST [place] [address] PCP - General Family Medicine 03/11/23 documented as of this encounter
--- OUTSIDE RECORDS SUMMARY | 2024-08-20 15:25 | XMS_ITS | Encounter Summary ---
Author Organization [employer] ([place], [place], [place], [place]) Address [address] [place] [address] Care Team Providers Care Diversified Crops Supervisor Name Role Phone Elijah Serra DO Primary Care Provider [phone] Encounter Details Date Type Department Care Team (Late st Contact Info) Description 07/20/2021 Transcribed Document [facility] [place] Family Medicine [address] [place] [address] ProviderMichael MD [address] [place] [address] Social History Tobacco Use Types [...] Do you speak a language other than Qatari at [facility]? No 09/05/2023 Do you want help with [...] Associated Diagnoses: None Author: PANDA CALVIN APRN [facility] CARDIOLOGY PROGRESS NOTE: DIAGNOSIS: 1. 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
--- OUTSIDE RECORDS SUMMARY | 2024-08-20 15:25 | XMS_ITS | Encounter Summary ---
Author Organization [employer] ([place], [place], [place], [place]) Address [address] [place] [address] Care Team Providers Care Carbon Paper Machine Operator Name Role Phone Elijah Serra DO Primary Care Provider [phone] Encounter Details Date Type Department Care Team (Late st Contact Info) Description 07/20/2021 Transcribed Document [facility] [place] [address] [place] [address] ProviderMichael MD [address] [place] [address] Social History Tobacco Use Types [...] speak a language other than Cymraes at [facility]? No 09/05/2023 Do you want help [...] on filedocumented in this encounter Care Teams Carbon Paper Machine Operator Relationship Specialty Start Date End Date Elijah Serra, DO 100 [facility] 1ST [place] [address] PCP - General Family Medicine 03/11/23 documented as of this encounter
--- OUTSIDE RECORDS SUMMARY | 2024-08-20 15:25 | XMS_ITS | Encounter Summary ---
Author Organization [employer] ([place], [place], [place], [place]) Address [address] [place] [address] Care Team Providers Care Railroad Surveyor Name Role Phone Elijah Serra DO Primary Care Provider [phone] Encounter Details Date Type Department Care Team (Late st Contact Info) Description 07/20/2021 Transcribed Document [facility] [place] Family Medicine [address] [place] [address] ProviderMichael MD [address] [place], [place] [...] Do you speak a language other than Slovenian at [facility] [...] On: 07/20/2021 15:34 EDT by DEVI CLAROS, Seaman Officer-Dental Hygiene Administrative Assistant Final Discharge Planning Discharge Arrangements : Patient [...] : Yes Discharge To Care Management : Home/Residential/Penitentiary or Self Care -01 DEVI CLAROS Seaman Officer-Dental Hygiene Administrative Assistant - 07/20/2021 15:34 EDT Final Narrative Note Final Narrative Note : Patient is discharging home. He reported that he is ADL independent and does not use DME. and denied having any discharge needs. Reported to having safe transport home. No needs identified. DEVI CLAROS Seaman Officer-Dental Hygiene Administrative Assistant - 07/20/2021 15:34 EDT documented in this encounter Plan of Treatment Not on file documented as of this encounter Visit Diagnoses Not on filedocumented in this encounter Care Teams Railroad Surveyor Relationship Specialty Start Date End Date Elijah Serra DO 100 [facility] 1ST [place] [address] PCP - General Family Medicine 03/11/23 documented as of this encounter
--- OUTSIDE RECORDS SUMMARY | 2024-08-20 15:25 | XMS_ITS | Encounter Summary ---
Author Organization [employer] ([place], [place], [place], [place]) Address [address] [place] [address] Care Team Providers Care Custom Stock Maker Name Role Phone Elijah Serra DO Primary Care Provider [phone] Encounter Details Date Type Department Care Team (Late st Contact Info) Description 07/19/2021 Transcribed Document [facility] [place] Family Medicine [address] [place] [address] ProviderMichael MD [address] [place] [address] Social History Tobacco Use Types [...] speak a language other than Montserratian at [facility]? No 09/05/2023 Do you want help [...] Historical Provider, - 07/19/2021 2:00 AM CDT Med Aide Details Entered On: 07/19/2021 2:35 EDT Performed [...] on filedocumented in this encounter Care Teams Custom Stock Maker Relationship Specialty Start Date End Date Elijah Serra, DO 100 [facility] 1ST [place] [address] PCP - General Family Medicine 03/11/23 documented as of this encounter
--- OUTSIDE RECORDS SUMMARY | 2024-08-20 15:25 | XMS_ITS | Encounter Summary ---
Author Organization [facility] Address [address] [place] [address] Support Name Relationship Address Phone Stepan Gold Personal Relationship [address] [facility] [place] [address] Mi Gold Personal Relationship Unknown Rosalind Mai Personal Relationship Unknown [phone] Vivi Ward Personal Relationship Unknown [phone] Care Team Providers Care Delinquent Tax Collection Assistant Name Role Phone Lesley Grace MD Primary Care Provider [phone] Provider, Historical Unavailable Unavailable Willi Templeton MD Unavailable María Andre MD Unavailable Selene Rodriguez DIRECTOR OF STUDENT LIFE Unavailable Mariah Flowers DIRECTOR OF STUDENT LIFE Unavailable Neyda Beltran MD Unavailable Ryanne Roblero MD Unavailable Unavailable Mi Martin DIRECTOR OF STUDENT LIFE Unavailable [phone] Elijah Serra DO Primary Care Provider [phone] Micha Washington MD Unavailable Reason for Visit * Reason Onset Date Comments Phone Advice For Symptoms 08/24/2013 Encounter Details Date Type Department Care Team (Late st Contact Info) Description 08/24/[address] LESLEY GRACE MD, [address] [place] [address] Lesley Grace MD [address] [place] [address] [address] [place] [address] Phone Advice For Symptoms Social History Tobacco [...] Description 11/06/2024 11:00 AM EDT Office Visit [facility] [address] [place] [address], [address] [place] [address] Micha Washington MD [address] [place] [address] Molly Figueroa PA-C [address] [address] [place] [address] documented as of this encounter Visit Diagnoses Not on filedocumented in this encounter Additional Health Concerns Infection Onset Date Last Indicated Resolved Time 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 02/24/2017 02/22/2017 02/22/201704/02/2024 9:[address] documented as of this encounter Care Teams Delinquent Tax Collection Assistant Relationship Specialty Start Date End Date Lesley Grace MD [address] [place] [address] [address] [place] [address] PCP - General 02/16/09 04/13/23 Elijah Serra DO [address] [place] [address] PCP - General Family Medicine 07/21/23 Provider, Historical 02/16/16 08/25/16 Willi Templeton MD 61 [address] [address] [place] [address] Gastroenterology 02/25/16 María Andre MD 61 [address] [address] [place] [address] Gastroenterology 03/08/16 Selene Rodriguez APRN [address] [place] [address] Gastroenterology 08/23/16 Mariah Flowers APRN 61 [address] [address] [place] [address] Nurse Practitioner 08/26/16 Neyda Beltran MD 61 [address] [address] [place] [address] Nephrology 03/17/17 Ryanne Roblero MD 61 [address] [address] [place] [address] Rheumatology 03/01/18 Mi Martin APRN [address] [place] [address] Nurse Practitioner Nurse Practitioner 04/16/19 Micha Washington MD [address] [place] [id number] Endocrinology 08/06/24 08/06/24 documented as of this encounter
--- OUTSIDE RECORDS SUMMARY | 2024-08-20 15:25 | XMS_ITS | Encounter Summary ---
Author Organization [facility] Address [address] [place] [address] Support Name Relationship Address Phone Stepan Gold Personal Relationship [address] [place] [address] Mi Gold Personal Relationship Unknown [phone] Rosalind Mai Personal Relationship Unknown [phone] Vivi Ward Personal Relationship Unknown Care Team Providers Care Table Saw Operator Name Role Phone Yehuda Barger MD Primary Care Provider [phone] Provider, Historical Unavailable Unavailable Willi Templeton MD Unavailable María Andre MD Unavailable Selene Rodriguez GROUND INSTRUCTOR BASIC Unavailable Mariah Flowers GROUND INSTRUCTOR BASIC Unavailable Neyda Beltran MD Unavailable Ryanne Roblero MD Unavailable Unavailable Mi Martin GROUND INSTRUCTOR BASIC Unavailable [phone] Elijah Serra DO Primary Care Provider [phone] Micha Washington MD Unavailable Reason for Visit * Reason Onset Date Comments Follow-up 08/17/2016 1st post DC f/u call made per [facility]. Encounter Details Date Type Department Care Team (Late st Contact Info) Description 08/17/2016 Telephone Population [facility] Management [address] [place] [address] Billie Pathak RN Follow-up (1st [...] 1st post DC f/u call made per [facility]. Pt. States, I m doing ok. I [...] continue to follow as needed. Annamarie Pathak, system admin Evaporator Helper Total time spent on pt-20 minutes documented in this encounter Plan of Treatment Upcoming Encounters Date Type Department Care Team (Late st Contact Info) Description 11/06/2024 11:00 AM EDT Office Visit [facility] [address], [facility], [address] [place] [address] Micha Washington MD 613 [address] [address] [place], [place] [address] Molly Figueroa PA-C [address] [address] [place] [id number] documented as of this encounter Visit Diagnoses Not on filedocumented in this encounter Additional Health Concerns Infection Onset Date Last Indicated Resolved Time 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 02/24/2017 02/22/2017 02/22/2017 04/02/2024 9:[address] documented as of this encounter Care Teams Table Saw Operator Relationship Specialty Start Date End Date Yehuda Barger MD [address] [place] [address] [place] [address] [place] [address] PCP - General 02/16/09 04/13/23 Elijah Serra DO [address] [place] [address] PCP - General Family Medicine 07/21/23 Provider, Historical 02/16/16 08/25/16 Willi Templeton MD [address] [place] [address] [address] [place] [address] Gastroenterology 02/25/16 María Andre MD [facility] [address] [place] [address] [address] [place] [address] Gastroenterology 03/08/16 Selene Rodriguez APRN [address] [place] [address] [address] [place] [address] Gastroenterology 08/23/16 Mariah Flowers APRN [address] [place] [address] [address] [place] [address] Nurse Practitioner 08/26/16 Neyda Beltran MD [address] [place] [address] [address] [facility] [place] [address] Nephrology 03/17/17 Ryanne Roblero MD [address] [place] [address] [address] [facility] [place] [address] Rheumatology 03/01/18 Mi Martin APRN [address] [place] [address] [address] [place] [phone] Nurse Practitioner Nurse Practitioner 04/16/19 Micha Washington MD [address] [place] [address] [address] [place] [address] Endocrinology 08/06/24 08/06/24 documented as of this encounter
--- OUTSIDE RECORDS SUMMARY | 2024-08-20 15:25 | XMS_ITS | Encounter Summary ---
Author Organization [facility] Address [address] [place] [address] Support Name Relationship Address Phone Stepan Gold Personal Relationship [address] [place] [address] Mi Perrydwin Personal Relationship Unknown Rosalind Andersonill Personal Relationship Unknown [phone] Vivi Ward Personal Relationship Unknown Care Team Providers Care Ordnance Artificer Name Role Phone Yehuda Barger MD Primary Care Provider Willi Templeton MD Unavailable María Andre MD Unavailable Selene Rodriguez GENERAL OFFICE ASSOCIATE Unavailable Mariah Flowers GENERAL OFFICE ASSOCIATE Unavailable Neyda Beltran MD Unavailable Ryanne Roblero MD Unavailable Unavailable Mi Martin GENERAL OFFICE ASSOCIATE Unavailable [phone] Elijah Serra DO Primary Care Provider [phone] Micha Washington MD Unavailable Reason for Visit * Reason Onset Date Comments Medications Refill 09/25/2020 Encounter Details Date Type Department Care Team (Late st Contact Info) Description 09/25/2020 Refill [facility] [address], [address] [place] [address] Sahara Bland LPN Medications Refill Social History [...] 11:00 AM EDT Office Visit [facility] [address] [place], [address] [place] [address], [address] [place] [address] Micha Washington MD [address] [place] [address] [address] [place], [place] [address] Molly Figueroa PA-C [address] [place] [id number] documented as of this encounter Visit Diagnoses Not on filedocumented in this encounter Additional Health Concerns Infection Onset Date Last Indicated Resolved Time 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 02/24/2017 02/22/2017 02/22/2017 04/02/2024 9:[address] documented as of this encounter Care Teams Ordnance Artificer Relationship Specialty Start Date End Date Yehuda Barger MD [address] [place] [address] 194 [facility] [place] [address] PCP - General 02/16/09 04/13/23 Elijah Serra DO [address] [place] [address] PCP - General Family Medicine 07/21/23 Willi Templeton MD [address] [place] [address] [address] [place] [address] Gastroenterology 02/25/16 María Andre MD [address] [place] [address] [address] [place] [address] Gastroenterology 03/08/16 Selene Rodriguez APRN [address] [place] [address] 203 [place] [address] Gastroenterology 08/23/16 Mariah Flowers APRN [address] [place] [address] 510 [place] [address] Nurse Practitioner 08/26/16 Neyda Beltran MD [address] [place] [address] [address] [place] [address] Nephrology 03/17/17 Ryanne Roblero MD [address] [place] [address] [address] [facility] [place] [address] Rheumatology 03/01/18 Mi Martin APRN [address] [place] [address] [address] [place] [phone] Nurse Practitioner Nurse Practitioner 04/16/19 Micha Washington MD [address] [place] [address] [address] [place] [address] Endocrinology 08/06/24 08/06/24 documented as of this encounter
--- OUTSIDE RECORDS SUMMARY | 2024-08-20 15:25 | XMS_ITS | Encounter Summary ---
Author Organization [employer] ([place], [place], [place], [place]) Address [address] [place] [address] Care Team Providers Care Desk Lieutenant Name Role Phone Elijah Serra DO Primary Care Provider [phone] Encounter Details Date Type Department Care Team (Late st Contact Info) Description 07/20/2021 Transcribed Document [facility] [place] Family Medicine [address] [place] [address] ProviderMichael MD [address] [place] [address] Social History Tobacco Use Types [...] Do you speak a language other than Angolan at [facility]? No 09/05/2023 Do you want [...] ROBLES MD-INT) Heparin 5,000 Units, SubCutaneous, Inj, [id number], Routine, Start 07/18/21 15:00:00 EDT, 07/18/21 14:02:00 [...] PRN heparin, 5000 Units= 1 mL, SubCutaneous, [id number] hydrALAZINE, 5 mg= 0.25 mL, IV Push, [...] on filedocumented in this encounter Care Teams Desk Lieutenant Relationship Specialty Start Date End Date Elijah Serra, DO 100 [facility] 1ST [place] [address] PCP - General Family Medicine 03/11/23 documented as of this encounter
--- OUTSIDE RECORDS SUMMARY | 2024-08-20 15:25 | XMS_ITS | Encounter Summary ---
Author Organization [employer] ([place], [place], [place], [place]) Address [address] [place] [address] Care Team Providers Care Network Planner Name Role Phone Elijah Serra DO Primary Care Provider [phone] Encounter Details Date Type Department Care Team (Late st Contact Info) Description 07/20/[address] [facility] [place] [address] [place] [address] ProviderMichael MD [address] [place] [address] Social History Tobacco Use Types [...] Never 09/05/2023 How often does anyone, comfort wlaters family and friends, scream or curse at [...] Do you speak a language other than Indian at [facility]? No 09/05/2023 Do you want [...] Date 07/20/21 Primary Care Provider [facility] Discharge Diagnosis Hyperglycemia 07/18/2021 R73.9 ICD-10-CM [...] Daily fluticasone 50 mcg/inh nasal spray 2 [place], PRN, Nasal, Daily furosemide 40 mg oral [...] Drop, PRN, Eye Right, Q2H Potassium Chloride (Yhk-Nonz-Qtw M10) 10 mEq oral tablet, extended release [...] CR Chest 1 Vw Port; Kvng Pugh, Dobby Looms Pegger 07/18/2021 12:08 EDT [2] [facility]; JOHANA BARNEY MD-CAR 07/20/2021 07:41 EDT [3] VASCULAR [facility]; JOHANA BARNEY MD-CAR 07/20/2021 09:09 EDT [4] US Renal Comp; ORALIA QUINTERO L 07/20/2021 13:28 EDT Electronically signed by [facility], [facility] Conversion Virtual Recruiter Cerner at 05/25/2022 6:13 PM CDT documented in this encounter Plan of Treatment Not on file documented as of this encounter Visit Diagnoses Not on filedocumented in this encounter Care Teams Network Planner Relationship Specialty Start Date End Date Elijah Serra, DO 100 [facility] 1ST [place] [address] PCP - General Family Medicine 03/11/23 documented as of this encounter
--- OUTSIDE RECORDS SUMMARY | 2024-08-20 15:25 | XMS_ITS | Encounter Summary ---
Author Organization [facility] Address [address] [place] [address] Support Name Relationship Address Phone Stepan Gold Personal Relationship [address] [facility] [place] [address] Mi Gold Personal Relationship Unknown Rosalind Mai Personal Relationship Unknown [phone] Vivi Ward Personal Relationship Unknown Care Team Providers Care Lithoplate Maker Name Role Phone Lesley Grace MD Primary Care Provider [phone] Willi Templeton MD Unavailable [phone] María Andre MD Unavailable [phone] Selene Rodriguez DORMITORY COUNSELOR Unavailable Mariah Flowers DORMITORY COUNSELOR Unavailable Neyda Beltran MD Unavailable Ryanne Roblero MD Unavailable Unavailable Mi Martin DORMITORY COUNSELOR Unavailable [phone] Elijah Serra DO Primary Care Provider [phone] Micha Washington MD Unavailable Reason for Visit * Reason Onset Date Comments Phone Advice For Symptoms 08/21/2018 Encounter Details Date Type Department Care Team (Late st Contact Info) Description 08/21/[address] LESLEY GRACE MD, [facility] [address] [facility] [address] [place] [phone] Lesley Grace MD [address] [place] [address] 194 [facility] [address] [place] [address] Phone Advice [...] has already been seen by Dr. Ross's MEETING COORDINATOR. * Telephone Encounter - Lakeshia Norman - 08/21/2018 2:35 PM EDT Van states that he spent the most of Tuesday morning in the ER with kidney stones. He is asking if you will refer him to Dr. Ross in [place]? Says that he has seen him before(the father). documented in this encounter Plan of Treatment Upcoming Encounters Date Type Department Care Team (Late st Contact Info) Description 11/06/2024 11:00 AM EDT Office Visit [address], [address] [place] [address] Micha Washington MD [address] [facility] [address] [place] [address] Molly Figueroa PA-C [address] [place] [address] documented as of this encounter Visit Diagnoses Not on filedocumented in this encounter Additional Health Concerns Infection Onset Date Last Indicated Resolved Time 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 02/24/2017 02/22/2017 02/22/2017 04/02/2024 9:[address] documented as of this encounter Care Teams Lithoplate Maker Relationship Specialty Start Date End Date Lesley Grace MD [address] [place] [address] [address] [place] [address] PCP - General 02/16/09 04/13/23 Elijah Serra DO [address] [place] [address] PCP - General Family Medicine 07/21/23 Willi Templeton MD [address] [place] [address] Gastroenterology 02/25/16 María Andre MD 61 [address] [address] [place] [address] Gastroenterology 03/08/16 Selene Rodriguez APRN [address] [place] [address] [address] [place], [place] [address] Gastroenterology 08/23/16 Mariah Flowers APRN [address] [place] [address] Nurse Practitioner 08/26/16 Neyda Beltran MD [address] [place] [address] Nephrology 03/17/17 Ryanne Roblero MD [address] [place] [address] Rheumatology 03/01/18 Mi Martin APRN [address] [place] [address] [place] [address] Nurse Practitioner Nurse Practitioner 04/16/19 Micha Washington MD [address] [place] [address] [place] [address] Endocrinology 08/06/24 08/06/24 documented as of this encounter
--- OUTSIDE RECORDS SUMMARY | 2024-08-20 15:25 | XMS_ITS | Encounter Summary ---
Author Organization [facility] Address [address] [place] [address] Support Name Relationship Address Phone Stepan Gold Personal Relationship [address] [place] [address] Mi Asif Personal Relationship Unknown Rosalind Andersonill Personal Relationship Unknown [phone] Vivi Ward Personal Relationship Unknown Care Team Providers Care Center Manager Name Role Phone Yehuda Barger MD Primary Care Provider [phone] Willi Templeton MD Unavailable María Andre MD Unavailable Selene Rodriguez CBX OPERATOR Unavailable Mariah Flowers CBX OPERATOR Unavailable Neyda Beltran MD Unavailable Ryanne Roblero MD Unavailable Unavailable Mi Martin CBX OPERATOR Unavailable [phone] Elijah Serra DO Primary Care Provider Micha [place] MD Unavailable Reason for Visit * Reason Onset Date Comments Medications Refill 04/15/2022 Encounter Details Date Type Department Care Team (Late st Contact Info) Description 04/15/2022 Refill Pb [place] Yehuda Barger Primary [facility] [address] [place] [address] [address] [place] [address] Yehuda Barger MD [address] [place] [address] [facility] [place] [address] Social History Tobacco Use Types Packs/Day Years [...] Visit [facility] [address] [place] [address], [facility] [address] [place] [phone] Micha [place] MD [address] [place] [address] [phone] Molly Figueroa PA-C [address] [place] [address] [place] [phone] documented as of this encounter Visit Diagnoses Not on filedocumented in this encounter Additional Health Concerns Infection Onset Date Last Indicated Resolved Time 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 02/24/2017 02/22/2017 02/22/2017 04/02/2024 9:[address] documented as of this encounter Care Teams Center Manager Relationship Specialty Start Date End Date Yehuda Barger MD [address] [place] [address] [facility] [place] [address] PCP - General 02/16/09 04/13/23 Elijah Serra DO [address] [place] [address] PCP - General Family Medicine 07/21/23 Willi Templeton MD [address] [place] [address] [address] [place] [address] Gastroenterology 02/25/16 María Andre MD [address] [place] [address] [address] [place] [address] Gastroenterology 03/08/16 Selene Rodriguez APRN [address] [place] [address] 203 [place] [address] Gastroenterology 08/23/16 Mariah Flowers APRN [address] [place] [address] 510 [place] [address] Nurse Practitioner 08/26/16 Neyda Beltran MD [address] [place] [address] [address] [place] [address] Nephrology 03/17/17 Ryanne Roblero MD [address] [place] [address] [address] [place] [address] Rheumatology 03/01/18 Mi Martin APRN [address] [place] [address] 102 [place] [phone] Nurse Practitioner Nurse Practitioner 04/16/19 Micha [place] MD [address] [place] [address] [address] [place] [address] Endocrinology 08/06/24 08/06/24 documented as of this encounter
--- OUTSIDE RECORDS SUMMARY | 2024-08-20 15:25 | XMS_ITS | Encounter Summary ---
Author Organization [facility] Address [address] [place] [address] Support Name Relationship Address Phone Stepan Gold Personal Relationship [address] [place] [address] Mi Asif Personal Relationship Unknown Rosalind Andersonill Personal Relationship Unknown [phone] Vivi Ward Personal Relationship Unknown Care Team Providers Care Fish And Game Warden Name Role Phone Yehuda Barger MD Primary Care Provider [phone] Willi Templeton MD Unavailable María Andre MD Unavailable Selene Rodriguez WATER SUPERINTENDENT Unavailable Mariah Flowers WATER SUPERINTENDENT Unavailable Neyda Beltran MD Unavailable Ryanne Roblero MD Unavailable Unavailable Mi Martin WATER SUPERINTENDENT Unavailable [phone] Elijah Serra DO Primary Care Provider Micha [place] MD Unavailable Reason for Visit * Reason Onset Date Comments Medications Refill 07/15/2022 Encounter Details Date Type Department Care Team (Late st Contact Info) Description 07/15/2022 Refill Pb [place] Yehuda Barger Primary Care [address] [place] [address] 194 [facility] [place] [address] Yehuda Barger MD [address] [place] [address] 1946 [facility] [address] Social History Tobacco Use Types Packs/Day Years [...] 11:00 AM EDT Office Visit [facility] [address] [place] [address], [facility] [address] [place] [phone] Micha [place] MD [address] [place] [address] [phone] Molly Fiugeroa PA-C [address] [place] [address] [place] [address] [phone] documented as of this encounter Visit Diagnoses Not on filedocumented in this encounter Additional Health Concerns Infection Onset Date Last Indicated Resolved Time 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 02/24/2017 02/22/2017 02/22/2017 04/02/2024 9:[address] documented as of this encounter Care Teams Fish And Game Warden Relationship Specialty Start Date End Date Yehuda Barger MD [address] [place] [address] [facility] [address] PCP - General 02/16/09 04/13/23 Elijah Serra DO 100 [place] [address] PCP - General Family Medicine 07/21/23 Willi Templeton MD [address] [place] [address] [address] [place] [address] Gastroenterology 02/25/16 María Andre MD [address] [place] [address] [address] [place] [address] Gastroenterology 03/08/16 Selene Rodriguez APRN [address] [place] [address] [place] [address] Gastroenterology 08/23/16 Mariah Flowers APRN [address] [place] [address] 510 [place] [address] Nurse Practitioner 08/26/16 Neyda Beltran MD [address] [place] [address] [address] [place] [address] Nephrology 03/17/17 Ryanne Roblero MD [address] [place] [address] [address] [place] [address] Rheumatology 03/01/18 Mi Martin APRN [address] [place] [address] [address] [place] [phone] Nurse Practitioner Nurse Practitioner 04/16/19 Micha [place] MD [address] [place] [address] [address] [place] [address] Endocrinology 08/06/24 08/06/24 documented as of this encounter
--- OUTSIDE RECORDS SUMMARY | 2024-08-20 15:25 | XMS_ITS | Encounter Summary ---
Author Organization [employer] ([place], [place], [place], [place]) Address [address] [place] [address] Care Team Providers Care Store Operations Associate Name Role Phone Elijah Serra DO Primary Care Provider [phone] Encounter Details Date Type Department Care Team (Late st Contact Info) Description 07/20/2021 Transcribed Document [facility] Family Medicine [address] [place] [address] ProviderMichael MD [address] [place] [address] Social History Tobacco Use Types [...] Do you speak a language other than Bhutanese at [facility]? No 09/05/2023 Do [...] 07/20/2021 16:32 EDT Electronically signed by Florencia [facility] Conversion Director Decision Support Cerner at 05/25/2022 6:16 PM CDT documented in this encounter Plan of Treatment Not on file documented as of this encounter Visit Diagnoses Not on filedocumented in this encounter Care Teams Store Operations Associate Relationship Specialty Start Date End Date Elijah Serra, DO 100 [facility] 1ST [place] [address] PCP - General Family Medicine 03/11/23 documented as of this encounter
--- OUTSIDE RECORDS SUMMARY | 2024-08-20 15:25 | XMS_ITS | Encounter Summary ---
Author Organization [employer] ([place], [place] Address [address] [place] [address] Care Team Providers Care Mechanical Field Engineer Name Role Phone Elijah Serra DO Primary Care Provider [phone] Encounter Details Date Type Department Care Team (Late st Contact Info) Description 07/20/2021 Transcribed Document [facility] [place] [address] [place] [address] ProviderMichael MD [address] [place] [address] Social History Tobacco Use Types [...] Do you speak a language other than Ukrainian at [facility]? No 09/05/2023 Do you want help with [...] Historical Provider, - 07/20/2021 3:58 PM CDT [facility] [place] [address] OBDULIO DOWD :1955 Visit Time:07/18/2021 Your Visit [...] 09:45 AM EDT Where: [address] [facility] [place] [address]- Business (1) Follow Up with ELIJAH SERRA DO-FAM When 07/21/2021 01:30 PM EDT Where: [address] [place] [address]- Medications What How Much When Instructions Next Dose ferrous gluconate (ferrous gluconate 324 mg (38 mg elemental iron) oral tablet) 1 Tablet(s) Oral Every Day Pickup [facility] tomorrow Non Formulary (Oxervate 0.002 % eye [...] (fluticasone 50 mcg/ inh nasal spray) 2 Terry(s) Nasal Every Day as needed for Nasal [...] Oral Two Times A Day Pickup at [facility] tonight potassium chloride (Potassium Chloride (Ozz-Dgud-Rwl M10) 10 mEq oral tablet, extended release) [...] Drop(s) Eye Right Two Times A Day [facility] Pharmacy Information [facility]: [address] [place] [address] [address] [place], [place] [phone] Take your medications faithfully. Do NOT skip [...] quickly after you eat. Medicines ??? Take miiq-igl-iqcrtjx and prescription medicines only as told by [...] provider. Document Revised: 07/20/2018 Document Reviewed: 07/20/2018 [employer] Patient Education ?? 2020 [employer]. Hypertension, Adult Hypertension is another name for [...] doctor. This is important. Medicines ??? Take ugoo-fuw-dwoqfgn and prescription medicines only as told by [...] provider. Document Revised: 10/04/2018 Document Reviewed: 10/04/2018 [employer] Patient Education ?? 2020 [employer]. Blood Pressure Record Sheet To take your [...] Follow these instructions at home: ??? Take hurj-vca-udfdhbi and prescription medicines only as told by your health care provider. ??? Weigh yourself daily. Your target weight is lb ( kg). ? Call your health care provider if you gain more than lb ( kg) in a day, or more than lb ( kg) in one week. ??? Eat a heart-healthy diet. Work with a diet and nutritional services director (dietitian) to create an eating plan that is best for you. ??? Keep all follow-up visits as told by your health care provider. This is important. Where to find more information ??? [place] Heart Association: www.heart.org Summary ??? Follow the [...] provider. Document Revised: 01/06/2018 Document Reviewed: 03/05/2017 [employer] Patient Education ?? 2020 PagPop. Heart Failure Exacerbation Heart failure is a [...] these instructions at home: Medicines ??? Take veol-eyn-wwcwqhd and prescription medicines only as told by your health care provider. ??? Do not stop taking your medicines or change the amount you take. If you are having problems or side effects from your medicines, talk to your health care provider. ??? If you are having difficulty paying for your medicines, contact a social work professor or your clinic. There are many programs [...] Reviewed: 08/16/2020 Elsevier Patient Education ?? 2020 [employer]. GUIDELINES FOR A HEART HEALTHY DIET [...] ham, luncheon meats, hot dogs, canned meats, [place] sausage --Limit meat portions to no more [...] white, wheat or rye breads, plain breadsticks, lao muffins, hamburger buns, plain bagels, plain cake doughnuts, mery breads, baked flours or corn tortillas, crackers including coty, animal, saltine, oyster and matzo, snacks including unsalted pretzels, popcorn, baked tortilla chips or potato chips. Homemade breads (biscuits, muffins, cornbread, rolls, pancakes and prydeinig toast) should be made with oils low [...] choose prepared products such as muffins, frozen prydeinig toast and waffles, biscuits, croissants and other [...] 5 large olives is considered a serving. --[place] oil and peanut oil are higher in [...] diet, please call the registered dietitians at [facility] at or . We will be happy [...] sugar-free varieties to be more thirst quenching. --[place] your teeth. --Chill mouthwash and gargle for [...] provider. Document Revised: 08/16/2020 Document Reviewed: 08/16/2020 ElseXuanyixia Patient Education ?? 2020 PagPop. Community-Acquired Pneumonia, Adult Pneumonia is an infection [...] these instructions at home: Medicines ??? Take thjx-erh-ehwfriw and prescription medicines only as told by [...] cannot use soap and water, use hand hand stoner. Contact a doctor if: ??? You have [...] provider. Document Revised: 11/06/2019 Document Reviewed: 11/06/2019 [employer]als Patient Education ?? 2020 PagPop. metoprolol (oral/injection) (me TOE pro lol) [place] [...] on filedocumented in this encounter Care Teams Mechanical Field Engineer Relationship Specialty Start Date End Date Elijah Serra, DO [address] [facility] [address] [place] [address] PCP - General Family Medicine 03/11/23 documented as of this encounter
--- OUTSIDE RECORDS SUMMARY | 2024-08-20 15:25 | XMS_ITS | Encounter Summary ---
Author Organization [employer] ([place], [place], [place], [place]) Address [address] [place] [address] Care Team Providers Care C++ Quant Developer Name Role Phone Elijah Serra DO Primary Care Provider [phone] Encounter Details Date Type Department Care Team (Late st Contact Info) Description 07/19/2021 Transcribed Document [facility] Family Medicine [address] [place] [address] ProviderMichael MD 123 [place] [address] Social History Tobacco Use Types [...] Do you speak a language other than Belizean at [facility]? No 09/05/2023 Do you [...] ROBLES MD-INT) Heparin 5,000 Units, SubCutaneous, Inj, [id number], Routine, Start 07/18/21 15:00:00 EDT, 07/18/21 14:02:00 EDT (SKIP ROBLES MD-INT) Provider Information Primary Care Physician - ELIJAH SERRA DO-MELANIE Attending Physician - SKIP ROBLES MD-INT Admitting Physician - SKIP ROBLES MD-INT Consulting Physician - SKIP ROBLES MD-INT Consulting Physician - JOHANA BARNEY MD-CAR [...] PRN heparin, 5000 Units= 1 mL, SubCutaneous, [id number] hydrALAZINE, 5 mg= 0.25 mL, IV Push, [...] Oxervate 0.002 % eye drops Potassium Chloride (Npw-Ikmi-Hqk M10) 10 mEq oral tablet, extended release, [...] # 0.74 x10(3)/uL (Low) 07/19/2021 06:51 EDT [place] % 6.2 % 07/19/2021 06:51 EDT [place] # 0.20 K/uL 07/19/2021 06:51 EDT [place] [...] 07/18/2021 13:20 EDT Electronically signed by Florencia, [facility] Conversion Disability Benefits Specialist Cerner at 05/25/2022 6:30 PM CDT documented in this encounter Plan of Treatment Not on file documented as of this encounter Visit Diagnoses Not on filedocumented in this encounter Care Teams C++ Quant Developer Relationship Specialty Start Date End Date Elijah Serra, DO 100 [facility] 1ST [place] [phone] PCP - General Family Medicine 03/11/23 documented as of this encounter
--- OUTSIDE RECORDS SUMMARY | 2024-08-20 15:25 | XMS_ITS | Encounter Summary ---
Author Organization [facility] Address [address] [place] [address] Support Name Relationship Address Phone Stepan Gold Personal Relationship [address] [place] [address] Mi Gold Personal Relationship Unknown [phone] Rosalind Mai Personal Relationship Unknown [phone] Vivi Ward Personal Relationship Unknown Care Team Providers Care Groundman/Lineman Name Role Phone Lesley Grace MD Primary Care Provider Willi Templeton MD Unavailable María Andre MD Unavailable Selene Rodriguez TAX AUDITOR Unavailable Mariah Flowers TAX AUDITOR Unavailable Neyda Beltran MD Unavailable Ryanne Roblero MD Unavailable Unavailable Mi Martin TAX AUDITOR Unavailable [phone] Elijah Serra DO Primary Care Provider Micha [place] MD Unavailable Encounter Details Date Type Department Care Team (Late st Contact Info) Description 11/30/[address] LESLEY GRACE MD, [facility] 105 [facility] [address] [place] [phone] Lesley Grace MD [address] [facility] [address] [place] [address] Social History Tobacco Use Types [...] concrete block a couple weeks ago # [phone] Eliana Phillips Pt is sending pic to my phone if you need to look at it. documented in this encounter Plan of Treatment Upcoming Encounters Date Type Department Care Team (Late st Contact Info) Description 11/06/2024 11:00 AM EDT Office Visit [address], [address] [place] [address] Micha [place] MD [address] [facility] [address] [place] [address] Molly Figueroa PA-C [address] [place] [address] documented as of this encounter Visit Diagnoses Not on filedocumented in this encounter Additional Health Concerns Infection Onset Date Last Indicated Resolved Time 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 02/24/2017 02/22/2017 02/22/2017 04/02/2024 9:[address] documented as of this encounter Care Teams Groundman/Lineman Relationship Specialty Start Date End Date Lesley Grace MD [address] [place] [address] [address] [place] [address] PCP - General 02/16/09 04/13/23 Elijah Serra DO 100 [place], [place] [id number] PCP - General Family Medicine 07/21/23 Willi Templeton MD [address] [place], [place] [phone] Gastroenterology 02/25/16 María Andre MD [address] [place] [address] Gastroenterology 03/08/16 Selene Rodriguez APRN [address] [place] [address] [address] [place] [address] Gastroenterology 08/23/16 Mariah Flowers APRN [address] [facility] [address] [place] [address] Nurse Practitioner 08/26/16 Neyda Beltran MD [address] [place] [address] Nephrology 03/17/17 Ryanne Roblero MD [address] [place] [address] Rheumatology 03/01/18 Mi Martin APRN [address] [place] [address] [address] [place] [phone] Nurse Practitioner Nurse Practitioner 04/16/19 Micha [place] MD [address] [place] [address] Endocrinology 08/06/24 08/06/24 documented as of this encounter
--- OUTSIDE RECORDS SUMMARY | 2024-08-20 15:25 | XMS_ITS | Clinical Summary ---
Author Organization [facility] Address [address] [place] [address] Support Name Relationship Address Phone Stepan Gold Personal Relationship [address] [place] [address] Mi Asif Personal Relationship Unknown Rosalind Andersonill Personal Relationship Unknown [phone] Vivi Ward Personal Relationship Unknown Care Team Providers Care Truck Operator Name Role Phone Willi Templeton MD Unavailable María Andre MD Unavailable Selene Rodriguez MURAL PAINTER Unavailable Mariah Flowers MURAL PAINTER Unavailable Neyda Beltran MD Unavailable Ryanne Roblero MD Unavailable Unavailable Mi Martin MURAL PAINTER Unavailable [phone] Elijah Serra DO Primary Care Provider Allergies Active Allergy Reactions Criticality Noted Date Comments Iodinated Contrast Media Anaphylaxis 02/16/2009 Pt required premedication prior to receiving IV dye. Other Rash 02/10/2012 Tape Medications sodium chloride (SALINE NASAL MIST) 0.65 %Indications:Sinus drainage,Post-nasa l drip,Nasal congestion,Acute recurrent frontal sinusitis [place] 2 Sprays in nose Every 4 hours [...] (FLONASE) 50 mcg/Actuation nasal sprayIndications:A llergic Rhinitis [place] 2 Sprays in nose Once Daily. (in [...] needed for Diarrhea. 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 - p/w hands, feet, lower back -H/o back injections in the past which helped him for a month or so Assessment & Plan (05/01/2020 11:33 AM EDT): -today with feet, wrists, hands, back -pain rates 08/16 -c/w Plaquenil 400 mg daily -last eye exam 04/2020 -states having some retinal problems going to [place] to specialist states going to do laser [...] -states having some retinal problems going to [place] to specialist states going to do laser [...] Description 08/06/2024 10:45 AM EDT Office Visit [address], [address] [place] [address] Micha Washington MD Type 1 [...] 2:12 PM EDT Emergency Emergency Department [address] [place] [address] Carlota Huynh MD Multifocal pneumonia (Primary Dx); Hypoxemia Discharge Disposition: Home or Self Care 07/15/2024 Travel 07/12/[address], [address] [place] [address] Micha Washington MD TSH elevation from Last 3 Months Immunizations Immunization Administration Dates Next Due FLUZONE .5mL QS FLU VACCINE 3yr+ SDS 01/08/2015, 12/27/2012 FLUZONE .5mL TS FLU VACCINE 65yr+ SDS HIGH-DOSE 12/18/2015 Hepatitis A Adult 07/08/2017 [id number] & [id number] FLUZONE, AFL URIA 0.25mL 6-35mos QS, .50mL 3YR+ QV MDV 11/10/2018,12/05/2017 [id number] FLUCELVAX 0.5mL QS FLU VACCINE 4yr+ SDS [...] materials from doctor or pharmacy Never 04/29/2023 [facility] Utilities Answer Date Recorded In the past 12 months has e [place], gas, oil, or water [employer] threatened to shut off services in your [...] any time in the past 12 m [facility], were you homeless or living in a jail (including now)? No 04/02/2024 Sex and Gender [...] Description 11/06/2024 11:00 AM EDT Office Visit [facility] Endocrinology [place] [address], [address], [address] [place] [address] Micha Washington MD [address] [place] [address] Molly Figueroa PA-C [address] [place] [address] [place] [address] Health Maintenance Due Date Last Done [...] this topic Medical Devices Implanted Type Area Commercial Loan Manager Device Identifier Shelf Expiration Date Model / Serial / Lot Resolute Stent Implanted:Qty: 1 on 08/04/2016 by Jose Ramon Rivera MD at [facility] [id number] / [id number] / Resolute Stent 2.75x 18mm Implanted:Qty: 1 on 08/04/2016 by Jose Ramon Rivera MD at [facility] [id number] / / [id number] Resolute Stent Implanted:Qty: 1 on 08/04/2016 by Jose Ramon Rivera MD at [facility] [id number] / / [id number] Procedures Procedure Name Priority Date/Time Associated Diagnosis [...] u[iU]/mL 08/06/2024 5:08 PM EDT [facility] 08/06/2024 4:31 PM EDT 08/06/2024 4:31 PM EDT us Micha Washington MD CHEMISTRY ORDERABLES Final Resul t [facility] [address] [place] [address] [facility] [address] [place] [address] * (ABNORMAL) Hemoglobin A1C (08/06/2024 4:31 PM EDT) Pathologist [facility] HEMOGLOBIN A1C 7.6(H) 3.0 - 6.0 % 08/06/2024 4:43 PM EDT [facility] 08/06/2024 4:31 PM EDT 08/06/2024 4:31 PM EDT us Micha Washington MD CHEMISTRY ORDERABLES Final Resul t [facility] [address] [place], [place] [id number] [place] [address] LAB [address] [place] [address] * Lipid Panel (08/06/2024 4:31 PM EDT) [facility] CHOLESTEROL 124 10 - 200 mg/dL 08/06/2024 5:00 PM EDT [facility] TRIGLYCERIDE 112 46 - 236 mg/dL 08/06/2024 5:00 PM EDT [facility] HDL 51.0 27.0 - 67.0 mg/dL 08/06/2024 5:00 PM EDT [facility] VLDL 22.4 mg/dL 08/06/2024 5:00 PM EDT [facility] LDL 50.6 mg/dL 08/06/2024 5:00 PM EDT [facility] Comment: CAP STANDARDIZED LDL-CHOLESTEROL VALUES <130-DESIRABLE 130-159 BORDERLINE/HIGH RISK >160-HIGH RISK Friedewald equation was used for calculating LDL = Tot. Cholesterol - HDL - (TG/5). RISK 1, MALE 2.43 08/06/2024 5:00 PM EDT [facility] Comment: TOTAL CHOL/HDL 1/2 AVERAGE 3.43 AVERAGE 4.97 2 X AVERAGE 9.55 3 X AVERAGE 23.39 RISK 2, MALE 0.99 08/06/2024 5:00 PM EDT [facility] Comment: LDL/HDL 1/2 AVERAGE 1.00 AVERAGE 3.55 2 X AVERAGE 6.25 3 X AVERAGE 7.99 RISK 1, FEMALE 2.43 08/06/2024 5:00 PM EDT [facility] Comment: TOTAL CHOL/HDL 1/2 AVERAGE 3.27 AVERAGE 4.44 2 X AVERAGE 7.05 3 X AVERAGE 11.04 RISK 2, FEMALE 0.99 08/06/2024 5:00 PM EDT [facility] Comment: LDL/HDL 1/2 AVERAGE 1.47 AVERAGE 3.22 2 X AVERAGE 5.03 3 X AVERAGE 6.14 08/06/2024 4:31 PM EDT 08/06/2024 4:31 PM EDT Micha Washington MD CHEMISTRY ORDERABLES Final Resul t Performing Organization Address [facility] Co de Phone Number [facility] [address] [place], [place] [id number] [place] [address] LAB [address] [place] [address] * Microalbumin, Random Urine (Includes creatinine w/ratio) (08/06/2024 4:17 PM EDT) CREATININE URINE 51.6 mg/dL 08/07/19 4:46 PM EDT [facility] MICROALBUMIN,U,RANDO M 0.90 0.00 - 1.80 mg/dL 08/06/2024 4:46 PM EDT [facility] MICROALB CREAT RATIO 17.4 ug/mg 07/10 4:46 PM EDT [facility] Comment: CATEGORY SPOT COLLECTION Normal <30 ug/mg creatinine Microalbuminuria 30-300 ug/mg creatinine Clinical albuminuria >300 ug/mg creatinine 08/06/2024 4:17 PM EDT 08/06/2024 4:17 PM EDT Micha Washington MD CHEMISTRY ORDERABLES Final Resul t Performing Organization Address [facility] de Phone Number [facility] [address] [place] [address] [facility] [address] [place] [address] * CT Lumbar Spine WO Contrast (07/15/2024 10:07 AM EDT) Anatomical Region Laterality Modality T-spine, L-spine, Pelvis Compute d Tomography 07/15/2024 Narrative 07/15/2024 10:13 AM EDT [facility] [address] [place] [address] Radiology PATIENT NAME: Obdulio Gold MR#: [id number] PROCEDURE DATE: 07/15/2024 ROOM#: 05 ORDERING PHYS: [...] ELECTRONICALLY VERIFIED REPORT 07/15/2024 10:13 AM: MD Eliajh Hook MD reena TD: 07/15/2024 JOB #: [id number] Radiology Page 1 of 1 COPY Procedure Note Elijah Clifton MD - 07/15/2024 [place] [address] Radiology PATIENT NAME: Obdulio Gold MR#: [id number] PROCEDURE DATE: 07/15/2024 ROOM#: 05 ORDERING PHYS: [...] Hook MD reena TD: 07/15/2024 JOB #: [id number] Radiology Page 1 of 1COPY Carlota Huynh MD IM CT ORDERABLES Final Result * CT Head WO Contrast (07/15/2024 10:07 AM EDT) Anatomical Region Laterality Modality Head Computed Tomogra phy 07/15/2024 Narrative 07/15/2024 10:10 [place] [address] Radiology PATIENT NAME: Obdulio Gold MR#: [id number] PROCEDURE DATE: 07/15/2024 ROOM#: 05 ORDERING PHYS: [...] Hook MD reena TD: 07/15/2024 JOB #: [id number] Radiology Page 1 of 1 COPY Procedure Note Elijah Clifton MD - 07/15/2024 [place] [address] Radiology PATIENT NAME: Obdulio Gold MR#: [id number] PROCEDURE DATE: 07/15/2024 ROOM#: 05 ORDERING PHYS: [...] Hook MD reena TD: 07/15/2024 JOB #: [id number] Radiology Page 1 of 1COPY us Carlota Huynh MD IMG CT ORDERABLES Final Result * SARS-CoV-2, QL, PCR (Rapid) (07/15/2024 9:21 AM EDT) SARS-CoV-2 RNA Undetected 07/15/2024 10:08 AM EDT [facility] Comment: Reference value: Undetected Testing was performed using the [employer] Dx System. Fact sheets for this Emergency Use Authorization (EUA) assay can be found at the following links: For Healthcare Providers: https://www.fda.gov/media/413757/download For Patients: https://www.fda.gov/media/189709/download Test Performed by: [facility],[address] [place] [address], Validation Scientist: Genaro Calvert D.O. CLIA: [id number] 07/15/2024 9:21 AM EDT 07/15/2024 9:25 AM EDT us Carlota Huynh MD MICROBIOLOGY - GENERAL ORDERABL ES Final Result [facility] [address] [place] [address] [place] [address] * XR Pelvis AP Only (07/15/2024 9:09 AM EDT) Anatomical Region Laterality Modality Abdomen, Pelvis, hip Computed Ra diography 07/15/2024 Narrative 07/15/2024 9:14 [place] [address] Radiology PATIENT NAME: Obdulio Gold MR#: [id number] PROCEDURE DATE: 07/15/2024 ROOM#: 05 ORDERING PHYS: [...] Hook MD jp TD: 07/15/2024 JOB #: [id number] Radiology Page 1 of 1 COPY Procedure Note Elijah Clifton MD - 07/15/2024 [place] [address] Radiology PATIENT NAME: Obdulio Gold MR#: [id number] PROCEDURE DATE: 07/15/2024 ROOM#: 05 ORDERING PHYS: [...] Hook MD jp TD: 07/15/2024 JOB #: [id number] Radiology Page 1 of 1COPY us Carlota Huynh MD IMG DIAGNOSTIC IMAGING ORDERABL ES Final Result * XR Portable Chest (07/15/2024 9:09 AM EDT) Anatomical Region Laterality Modality Chest Computed Radiogr aphy 07/15/2024 Narrative 07/15/2024 9:15 [place] [address] Radiology PATIENT NAME: Obdulio Gold MR#: [id number] PROCEDURE DATE: 07/15/2024 ROOM#: 05 ORDERING PHYS: [...] Hook MD reena TD: 07/15/2024 JOB #: [id number] Radiology Page 1 of 1 COPY Procedure Note Elijah Clifton MD - 07/15/2024 [place] [address] Radiology PATIENT NAME: Obdulio Gold MR#: [id number] PROCEDURE DATE: 07/15/2024 ROOM#: 05 ORDERING PHYS: [...] Hook MD reena TD: 07/15/2024 JOB #: [id number] Radiology Page 1 of 1COPY us Carlota [...] LABS Final Result [facility] [address] [place] [id number] [facility] [place], [place] [address] [place] [address] * (ABNORMAL) Comprehensive Metabolic Panel (07/15/2024 8:54 AM EDT) [facility] SODIUM 137 135 - 145 mmol/L 07/15/2024 9:23 AM EDT [facility] POTASSIUM 3.3(L) 3.6 - 5.0 mmol/L 07/15/2024 9:23 AM EDT [facility] CHLORIDE 101 101 - 111 mmol/L 07/15/2024 9:23 AM EDT [facility] CO2 26 21 - 31 mmol/L 07/15/2024 9:23 AM EDT [facility] ANION GAP 10 07/15/2024 9:23 AM EDT [facility] GLUCOSE 312(H) 70 - 110 mg/dL 07/15/2024 9:23 AM EDT [facility] CREATININE 1.1 0.6 - 1.2 mg/dL 07/15/2024 9:23 AM EDT [facility] BUN 16 2 - 32 mg/dL 07/15/2024 9:23 AM EDT [facility] CALCIUM 8.4(L) 8.5 - 10.5 mg/dL 07/15/2024 9:23 AM EDT [facility] PROTEIN TOTAL 6.1 6.1 - 7.8 g/dL 07/15/2024 9:23 AM EDT [facility] Albumin 3.2 3.2 - 5.0 g/dL 07/15/2024 9:23 AM EDT [facility] T BILIRUBIN 0.8 0.2 - 1.0 mg/dL 07/15/2024 9:23 AM EDT [facility] ALP 91 42 - 121 [iU]/L 07/15/2024 9:23 AM EDT [facility] AST 31 10 - 42 [iU]/L 07/15/2024 9:23 AM EDT [facility] ALT (SGPT) 33 10 - 60 [iU]/L 07/15/2024 9:23 AM EDT [facility] OSMOLALITY 287 266 - 309 07/15/2024 9:23 AM EDT [facility] A/G Ratio 1.1 07/15/2024 9:23 AM EDT [facility] B/C 15 10 - 20 07/15/2024 9:23 AM EDT [facility] ESTIMATED GFR 66 mL/min 07/15/2024 9:23 AM EDT [facility] Comment: *The estimated Glomerular Filtration [...] ORDERABLES Final Resu lt Performing Organization Address City/[facility] Co de Phone Number [facility] [address] [place] [address] [facility] [address] [place] [address] * Troponin I, HS, baseline (07/15/2024 8:54 AM EDT) Pathologist [facility] TROPONIN I, HS, BASELINE 17 0 - 20 07/15/2024 9:23 AM EDT [facility] Comment: For Males 20 ng/L is the AMI cutoff for males. For Females 15 ng/L is the AMI cutoff for females. 07/15/2024 8:54 AM EDT 07/15/2024 8:56 AM EDT Carlota Huynh MD CHEMISTRY ORDERABLES Final Resu lt [facility] [address] [place] [address] [facility] [address] [place] [address] * (ABNORMAL) CBC w/Differential (07/15/2024 8:54 AM EDT) Pathologist [facility] WBC 5.8 4.5 - 11.0 10*3/uL 07/15/2024 9:51 AM EDT [facility] RBC 4.02(L) 4.50 - 5.90 10*6/uL 07/15/2024 9:51 AM EDT [facility] HGB 11.6(L) 13.5 - 17.5 g/dL 07/15/2024 9:51 AM EDT [facility] HCT 34.0(L) 37.0 - 53.0 % 07/15/2024 9:51 AM EDT [facility] MCV 84.8 80.0 - 100.0 fL 07/15/2024 9:51 AM EDT [facility] MCHC 34.0 32.0 - 36.0 g/dL 07/15/2024 9:51 AM EDT [facility] MCH 28.8 26.0 - 34.0 pg 07/15/2024 9:51 AM EDT [facility] RDW 17.2 10.7 - 18.7 % 07/15/2024 9:51 AM EDT [facility] MPV 7.1 6.5 - 10.0 fL 07/15/2024 9:51 AM EDT [facility] Platelet Cnt 128(L) 150 - 450 10*3/uL 07/15/2024 9:51 AM EDT [facility] Differential Type Auto 025 9:51 AM EDT [facility] Neutrophils 84.1(H) 35.0 - 66.0 % 07/15/2024 9:51 AM EDT [facility] Lymphocytes 4.9(L) 24.0 - 44.0 % 07/15/2024 9:51 AM EDT [facility] Monocytes 7.2 2.1 - 13.3 % 07/15/2024 9:51 AM EDT [facility] Eosinophils 3.6 0.3 - 5.0 % 07/15/2024 9:51 AM EDT [facility] Basophils 0.2 0.0 - 1.0 % 07/15/2024 9:51 AM EDT [facility] Neutrophils Abs 4.9 1.5 - 8.5 10*3/uL 07/15/2024 9:51 AM EDT [facility] Lymphocytes Abs 0.3(L) 1.1 - 5.0 10*3/uL 07/15/2024 9:51 AM EDT [facility] Monocytes Abs 0.4 0.0 - 1.4 10*3/uL 07/15/2024 9:51 AM EDT [facility] Eosinophils Abs 0.2 0.0 - 0.5 10*3/uL 07/15/2024 9:51 AM EDT [facility] Basophils Abs 0.0 0.0 - 0.1 10*3/uL 07/15/2024 9:51 AM EDT [facility] MDW 20.8(H) 0.0 - 20.0 07/15/2024 9:51 AM EDT [facility] 07/15/2024 8:54 AM EDT 07/15/2024 9:05 AM EDT us Carlota Huynh MD HEMATOLOGY ORDERABLES Final Res ult Performing Organization Address City/State/[facility] Co de Phone Number [facility] [address] [place] [address] [facility] [address] [place] [address] * 12 Lead EKG - Emergency Department (07/15/2024 8:29 AM EDT) 07/15/2024 8:29 AM EDT Narrative EPIPHANY - 07/16/2024 1:31 AM EDT [facility] ED Test Date: 2024-07-15 Pat Name: OBDULIO GOLD Department: EMERGENCY DEPARTMENT Room: 05 Gender: Male Automation Developer: : 1955 Requested By: CARLOTA HUYNH Order Number: [id number] Reading MD: David Fritz MD Measurements Intervals [place] Rate: 98 P: 27 WY: 150 QRS: -52 QRSD: 110 T: 82 QT: 354 QTc: 452 Interpretive Statements: Normal sinus rhythm Poor R wave progression Possible old septal NV LVH Nonspecific ST-T wave changes Non specific interventricular conduction delay Electronically Signed On 07-16-2024 01:31:24 EDT by David Fritz MD Procedure Note David Fritz MD - 07/16/2024 [facility] ED Test Date: 2024-07-15 Pat Name: OBDULIO GOLD Department: EMERGENCYDEPARTMENT Room: 05 Gender: Male Automation Developer: : 1955 Requested By: CARLOTA HUYNH Order Number: [id number] Reading MD: David Fritz MD Measurements Intervals [place] Rate: 98 P: 27 WY: 150 QRS: -52 QRSD: 110 T: 82 QT: 354 QTc: 452 Interpretive Statements: Normal sinus rhythm Poor R wave progression Possible old septal NV LVH Nonspecific ST-T wave changes Non specific interventricular conduction delay Electronically Signed On 07-16-2024 01:31:24 EDT by David Fritz MD us Carlota Huynh MD EKG ORDERABLES Final Result Performing Organization Address City/[facility] Co de Phone Number [facility] * Occult Blood, Stool (03/24/2017 1:35 PM EST) OCCULT BLOOD NEGATIVE NEGATIVE 03/24/2017 3:32 PM EST [facility] Comment:Methology: FIT, Feca l Immunochemical Test. Stool (Stool) 03/24/2017 1:3 5 PM EST 03/24/2017 2:01 PM EST us Fredrick Mauro MD URINE ORDERABLES Final Result Performing Organization Address City/[facility] Co de Phone Number [facility] [address] [place] [phone] from Last 3 Months or Most Recently Relevant to Health Maintenance Insurance [employer] MEDICARE [phone] (Home) [address] [place] [phone] Advance Directives * DNR (Latest Code Status [...] 5:59 AM 03/26/2017 5:59 AM Care Teams Truck Operator Relationship Specialty Start Date End Date Elijah Serra DO [address] [place] [address] PCP - General Family Medicine 07/21/23 Willi Templeton MD [address] [place] [address] Gastroenterology 02/25/16 María Andre MD [address] [place] [address] [address] [place] [address] Gastroenterology 03/08/16 Selene Rodriguez APRN [address] [place] [address] Gastroenterology 08/23/16 Mariah Flowers APRN [address] [place] [address] Nurse Practitioner 08/26/16 Neyda Beltran MD [address] [place] [address] Nephrology 03/17/17 Ryanne Roblero MD [address] [facility] [address] [facility] [place] [address] Rheumatology 03/01/18 Mi Martin APRN [address] [place] [address] Nurse Practitioner Nurse Practitioner 04/16/19
--- OUTSIDE RECORDS SUMMARY | 2024-08-20 15:26 | XMS_ITS | Encounter Summary ---
Author Organization [employer] ([place], [place], [place], [place]) Address [address] [place] [address] Care Team Providers Care Lead Pastor Name Role Phone Elijah Serra DO Primary Care Provider [phone] Encounter Details Date Type Department Care Team (Late st Contact Info) Description 07/18/2021 Transcribed Document [facility] [address] [place] [address] ProviderMichael MD [address] [place] [address] Social History Tobacco Use Types [...] Do you speak a language other than Bahamian at [facility]? No 09/05/2023 Do you want help with [...] Historical Provider, - 07/18/2021 10:35 AM CDT [place] Suicide Severity Rating Scale (C-SSRS) Entered On: 07/18/2021 15:32 EDT Performed On: 07/18/2021 15:20 EDT by MARCOS OLSEN RN [place] Suicide Severity Rating Scale (C-SSRS) CSSRS Past [...] on filedocumented in this encounter Care Teams Lead Pastor Relationship Specialty Start Date End Date Elijah Serra, DO [address] [facility] [address] [place] [address] PCP - General Family Medicine 03/11/23 documented as of this encounter
--- OUTSIDE RECORDS SUMMARY | 2024-08-20 15:26 | XMS_ITS | Encounter Summary ---
Author Organization [email or web address] ([place], [place], [place], [place]) Address [address] [place] [address] Care Team Providers Care Impregnating Machine Operator Name Role Phone Elijah Serra DO Primary Care Provider Encounter Details Date Type Department Care Team (Late st Contact Info) Description 07/18/2021 Transcribed Document [facility] Family Medicine [address] [place] [address] ProviderMichael MD [address] [place] [address] Social History Tobacco Use Types [...] language other than [place] at [facility]? No 09/05/2023 Do you want help [...] On: 07/19/2021 8:04 EDT by MARCIAL FOWLER, NURSING HOME ASSISTANT General Information Visit Type, NURSING HOME ASSISTANT : Initial evaluation Patient Orders : Consult to Speech Language Pathology for Swallow Eval -111 Start: 07/18/21 13:33:00 EDT, Routine, For Swallow Eval and Treat - SKIP ROBLES MD-INT Admission Date : Admission Date/Time: 07/18/21 13:28:00 Medical Chart Reviewed, NURSING HOME ASSISTANT : Yes Personal Devices : Personal Devices [...] initial encounter 07/18/2021 12:00 Weakness Therapy Diagnosis, NURSING HOME ASSISTANT : Pt presents without overt oropharygneal patterns. Recommendations: 1. Regular/thin 2. Medication per RN 3. No further evaluation/tx indicated Previous Swallow Precautions : No previous ST in EMR Diet/Intake Prior to Current Admission : Regular/thin Diet/Intake During Current Admission : Regular/thin Intubation Comment, NURSING HOME ASSISTANT : n/a Vital Signs RTF : Vitals [...] 8:04 EDT General Status Patient Received Status, NURSING HOME ASSISTANT : Up in chair Treatment Start Time, NURSING HOME ASSISTANT : 07/19/2021 7:52 EDT Patient Left Status, NURSING HOME ASSISTANT : Up in chair Treatment End Time, NURSING HOME ASSISTANT : 07/19/2021 8:04 EDT Treatment Time, NURSING HOME ASSISTANT : 12 Minute(s) MARCIAL FOWLER SLP - [...] Oral Mechanism for Daily Living : Intact NURSING HOME ASSISTANT Cough : Strong Facial Appearance: : Symmetrical [...] HTN, 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 NURSING HOME ASSISTANT consulted for bedside dysphagia evaluation. Today, pt [...] - 07/19/2021 8:04 EDT Therapy Indication Assessment NURSING HOME ASSISTANT Indicated : No NURSING HOME ASSISTANT Not Indicated : At prior level of function NURSING HOME ASSISTANT Interdisciplinary Consultation Needs : No NURSING HOME ASSISTANT Rehabilitation Potential : At prior level of function MARCIAL FOWLER SLP - 07/19/2021 8:04 EDT Education Barriers To Learning : None evident Individuals Taught : Patient Readiness to Learn : Cooperative Readiness to Learn : Explanation MARCIAL FOWLER SLP - 07/19/2021 8:04 EDT NURSING HOME ASSISTANT Education Assessment Grid 1 Diet Recommendation : Verbalizes understanding Evaluation Results : Verbalizes understanding MARCIAL FOWLER SLP - 07/19/2021 8:[address] [facility] NURSING HOME ASSISTANT Charges Evaluation Swallowing Function : 1 MARCIAL FOWLER SLP - 07/19/2021 8:04 EDT Anticipated Discharge Needs, NURSING HOME ASSISTANT Anticipated Discharge to : Home, independently Recommend Continued Therapy at Discharge : No MARCIAL FOWLER SLP - 07/19/2021 8:04 EDT documented in this encounter Plan of Treatment Not on file documented as of this encounter Visit Diagnoses Not on filedocumented in this encounter Care Teams Impregnating Machine Operator Relationship Specialty Start Date End Date Elijah Serra, DO 100 [facility] 1ST [place] [address] PCP - General Family Medicine 03/11/23 documented as of this encounter
--- OUTSIDE RECORDS SUMMARY | 2024-08-20 15:26 | XMS_ITS | Encounter Summary ---
Author Organization [facility] Address [address] [place] [address] Support Name Relationship Address Phone Stepan Gold Personal Relationship [address] [place] [address] Mi Gold Personal Relationship Unknown [phone] Rosalind Mai Personal Relationship Unknown [phone] Vivi Ward Personal Relationship Unknown Care Team Providers Care Unit Nurse Name Role Phone Lesley Grace MD Primary Care Provider [phone] Willi Templeton MD Unavailable María Andre MD Unavailable Selene Rodriguez DIRECTOR OF SUSTAINABILITY Unavailable Mariah Flowers DIRECTOR OF SUSTAINABILITY Unavailable Neyda Beltran MD Unavailable Ryanne Roblero MD Unavailable Unavailable Mi Martin DIRECTOR OF SUSTAINABILITY Unavailable Elijah Serra DO Primary Care Provider Micha Washington MD Unavailable Encounter Details Date Type Department Care Team (Late st Contact Info) Description 01/02/[address] LESLEY GRACE MD, [facility] 105 [facility] [address] [place] [phone] Lesley Grace MD 105 [facility] [address] [place] [address] Social History Tobacco Use Types [...] for gabapentin and has sinus infection # [phone] dominic Nicole documented in this encounter Plan of Treatment Upcoming Encounters Date Type Department Care Team (Late st Contact Info) Description 11/06/2024 11:00 AM EDT Office Visit [address], [facility], [address] [place] [address] Micha Washington MD [address] [place] [address] [place] [address] Molly Figueroa PA-C [address] [place] [address] [place] [address] documented as of this encounter Visit Diagnoses Not on filedocumented in this encounter Additional Health Concerns Infection Onset Date Last Indicated Resolved Time 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 02/24/2017 02/22/2017 02/22/2017 04/02/2024 9:[address] documented as of this encounter Care Teams Unit Nurse Relationship Specialty Start Date End Date Lesley Grace MD [address] [place] [address] [place] [address] [place] [address] PCP - General 02/16/09 04/13/23 Elijah Serra DO [address] [place] [address] PCP - General Family Medicine 07/21/23 Willi Templeton MD [address] [place] [address] [address] [place] [address] Gastroenterology 02/25/16 María Andre MD [address] [place] [address] [address] [place] [address] Gastroenterology 03/08/16 Selene Rodriguez APRN [address] [place] [address] Gastroenterology 08/23/16 Mariah Flowers APRN [address] [place] [address] [address] [place] [address] Nurse Practitioner 08/26/16 Neyda Beltran MD [address] [place] [address] [address] [place] [address] Nephrology 03/17/17 Ryanne Roblero MD [address] [place] [address] [address] [place] [address] Rheumatology 03/01/18 Mi Martin APRN [address] [place] [address] [address] [place] [address] Nurse Practitioner Nurse Practitioner 04/16/19 Micha Washington MD [address] [place] [address] Endocrinology 08/06/24 08/06/24 documented as of this encounter
--- OUTSIDE RECORDS SUMMARY | 2024-08-20 15:26 | XMS_ITS | Encounter Summary ---
Author Organization Healthcare Address [address] [id number] Care Team Providers Care Car Inspector Name Role Phone Ponce Elijah Taylor DO Primary Care Provider Encounter Details Date [...] any time in the past [address] [facility], were you homeless or living in a jail (including now)? No 07/16/2024 Utilities Answer Date [...] Time MRSA Comment:Added from external infection. Source: [facility]. 02/22/2017 07/15/2024 Assessment Noted Time A Body Mass Index follow-up plan has been documented for the patient 07/20/2024 1:44 PM EDT documented as of this encounter Care Teams Car Inspector Relationship Specialty Start Date End Date Elijah Serra DO [address] [place] [address] PCP - General [place] 12/01/22 documented as of this encounter
--- OUTSIDE RECORDS SUMMARY | 2024-08-20 15:26 | XMS_ITS | Encounter Summary ---
Author Organization [employer] ([place], [place], [place], [place]) Address [address] [place] [address] Care Team Providers Care Field Crops Harvest Machine Operator Name Role Phone Elijah Serra DO Primary Care Provider [phone] Encounter Details Date Type Department Care Team (Late st Contact Info) Description 07/18/2021 Transcribed Document [facility] Radiology [address] [place] [address] Marcos Alvarez MD [address] [place] [address] [address] [place] [address] Social History Tobacco Use Types Packs/Day Years [...] your living situation today? I have a [facility] place to live 09/05/2023 Think about [...] Do you speak a language other than Jamaican at [facility]? No 09/05/2023 Do you want help with [...] Other (See Comment) heparin: 5,000 Units, SubCutaneous, D11MXup hydrALAZINE: 5 mg, IV Push, Q4H, PRN: [...] % eye drops: 0 Refill(s) Potassium Chloride (Nhq-Ftcl-Thz M10) 10 mEq oral tablet, extended release: [...] Oxervate 0.002 % eye drops Potassium Chloride (Zyl-Cifq-Ocr M10) 10 mEq oral tablet, extended release [...] mL inj 5,000 Units 1 mL, SubCutaneous, P28UHjw insulin glargine 1 unit/0.01 mL inj 22 [...] At risk for sleep apnea / IMO 14658122 / Confirmed Calcium pyrophosphate deposition disease / SNOMED CT 476400243 / Confirmed Chronic kidney disease stage 3 / SNOMED CT 2447070687 / Confirmed Coronary arteriosclerosis / SNOMED CT 70452086 / Confirmed Dyspnea on exertion / SNOMED CT 101279487 / Confirmed Erosive osteoarthrosis / SNOMED CT 114304549 / Confirmed History of coronary artery bypass grafting / SNOMED CT 0561184001 / Confirmed Hyperparathyroidism due to renal insufficiency / SNOMED CT 38585006 / Confirmed Hypothyroidism / SNOMED CT 63056005 / Confirmed Secondary gout / SNOMED CT 310229899 / Confirmed Type 1 diabetes mellitus / SNOMED CT 137902106 / Confirmed, Active Problems (13) At risk [...] gallop, S1+ S2 No S3 or S4 Carter.. Gastrointestinal: Soft, Non-tender, Non-distended, Normal bowel sounds. [...] on filedocumented in this encounter Care Teams Field Crops Harvest Machine Operator Relationship Specialty Start Date End Date Elijah Serra, DO 100 [facility] 1ST [place] [address] PCP - General Family Medicine 03/11/23 documented as of this encounter
--- OUTSIDE RECORDS SUMMARY | 2024-08-20 15:26 | XMS_ITS | Encounter Summary ---
Author Organization [email or web address] ([place], [place], [place], [place]) Address [address] [place] [address] Care Team Providers Care Senior Program Manager Name Role Phone Elijah Serra DO Primary Care Provider Encounter Details Date Type Department Care Team (Late st Contact Info) Description 07/18/2021 Transcribed Document [facility] Family Medicine [address] [place] [address] ProviderMichael MD [address] [place] [address] Social History Tobacco Use Types [...] Never 09/05/2023 How often does anyone, comfort waltres family and friends, scream or curse at [...] Do you speak a language other than Guamanian at [facility]? No 09/05/2023 Do you [...] 13:47 EDT by Dara Celis Emergency Room Specimen Transporter Phone Call for Consults Provider Service Notified Name : Nephrology Consult, Additional Information : Consult for in am Dara Celis Emergency Room Specimen Transporter - 07/18/2021 13:47 EDT Electronically signed by Florencia [facility] Conversion Director Translation Cerner at 05/25/2022 6:24 PM CDT documented in this encounter Plan of Treatment Not on file documented as of this encounter Visit Diagnoses Not on filedocumented in this encounter Care Teams Senior Program Manager Relationship Specialty Start Date End Date Elijah Serra, DO 100 [facility] 1ST [place] [address] PCP - General Family Medicine 03/11/23 documented as of this encounter
--- OUTSIDE RECORDS SUMMARY | 2024-08-20 15:26 | XMS_ITS | Encounter Summary ---
Author Organization [facility] Address [address] [place] [address] Support Name Relationship Address Phone Stepan Gold Personal Relationship [address] [place] [address] Mi Gold Personal Relationship Unknown [phone] Rosalind Mai Personal Relationship Unknown [phone] Vivi Wrad Personal Relationship Unknown Care Team Providers Care Pig Furnace Operator Name Role Phone Lesley Grace MD Primary Care Provider Willi Templeton MD Unavailable María Andre MD Unavailable Selene Rodriguez JUKEBOX COIN COLLECTOR Unavailable Mariah Flowers JUKEBOX COIN COLLECTOR Unavailable Neyda Beltran MD Unavailable Ryanne Roblero MD Unavailable Unavailable Mi Martin JUKEBOX COIN COLLECTOR Unavailable [phone] Elijah Serra DO Primary Care Provider [phone] Micha Washington MD Unavailable Encounter Details Date Type Department Care Team (Late st Contact Info) Description 01/20/[address] LESLEY GRACE MD, [facility] 105 [facility] [address] [place] [address] Lesley Grace MD 105 [facility] [address] [place] [address] Social History Tobacco Use Types [...] you to write another one. Pt. To leaf size picker Tuesday. documented in this encounter Plan of Treatment Upcoming Encounters Date Type Department Care Team (Late st Contact Info) Description 11/06/2024 11:00 AM EDT Office Visit [facility] Endocrinology [address], [address] [place], [place] [address] Micha Washington MD [address] [place] [address] Molly Figueroa PA-C [address] [place] [address] documented as of this encounter Visit Diagnoses Not on filedocumented in this encounter Additional Health Concerns Infection Onset Date Last Indicated Resolved Time 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 02/24/2017 02/22/2017 02/22/2017 04/02/2024 9:[address] documented as of this encounter Care Teams Pig Furnace Operator Relationship Specialty Start Date End Date Lesley Grace MD [address] [place] [address] [address] [facility] [place] [address] PCP - General 02/16/09 04/13/23 Elijah Serra DO [address] [place] [address] PCP - General Family Medicine 07/21/23 Willi Templeton MD [address] [address] [place] [address] Gastroenterology 02/25/16 María Andre MD [address] [place] [address] [address] [place] [address] Gastroenterology 03/08/16 Selene Rodriguez APRN [address] [place] [address] [address] [place] [address] Gastroenterology 08/23/16 Mariah Flowers APRN [address] [place] [address] 510 [place] [address] Nurse Practitioner 08/26/16 Neyda Beltran MD [address] [place] [address] [address] [place] [address] Nephrology 03/17/17 Ryanne Roblero MD [address] [place] [address] [address] [place] [address] Rheumatology 03/01/18 Mi Martin APRN 1000 [facility] 102 [place] [address] Nurse Practitioner Nurse Practitioner 04/16/19 Micha Washington MD [address] [place] [address] [address] [place] [address] Endocrinology 08/06/24 08/06/24 documented as of this encounter
--- OUTSIDE RECORDS SUMMARY | 2024-08-20 15:26 | XMS_ITS | Encounter Summary ---
Author Organization [facility] Address [address] [place] [address] Support Name Relationship Address Phone Stepan Gold Personal Relationship [address] [place] [address] Mi Asif Personal Relationship Unknown [phone] Rosalind Andersonill Personal Relationship Unknown [phone] Vivi Ward Personal Relationship Unknown Care Team Providers Care Councillor Aboriginal Land Council Name Role Phone Willi Templeton MD Unavailable María Andre MD Unavailable Selene Rodriguez HOSTING ENGINEER Unavailable Mariah Flowers HOSTING ENGINEER Unavailable [phone] Neyda Beltran MD Unavailable Ryanne Roblero MD Unavailable Unavailable Mi Martin HOSTING ENGINEER Unavailable [phone] Elijah Serra DO Primary Care Provider [phone] Reason for Visit * Reason Onset Date Comments Medications Refill 07/12/2024 Encounter Details Date Type Department Care Team (Late st Contact Info) Description 07/12/2024 Refill [facility] Endocrinology [place] [address] [place], [facility], [address] [place] [address] Micha Washington MD [address] [place] [address] [place] [id number] TSH elevation Social History Tobacco Use Types [...] materials from doctor or pharmacy Never 04/29/2023 [facility] Utilities Answer Date Recorded In the past 12 months has e [employer], gas, oil, or water [employer] threatened to shut off services in your [...] any time in the past 12 m [facility], were you homeless or living [...] Levothyroxine 150mcg -90 day supply sent to [facility]. thanks documented in this encounter Plan of Treatment Upcoming Encounters Date Type Department Care Team (Late st Contact Info) Description 11/06/2024 11:00 AM EDT Office Visit [facility] Endocrinology [address], [facility] B, [address] [place] [address] Micha Washington MD [address] [place] [address] Molly Figueroa PA-C [address] [place] [address] [place] [address] documented as of this encounter Visit Diagnoses Diagnosis TSH elevation documented in this encounter Care Teams Councillor Aboriginal Land Council Relationship Specialty Start Date End Date Elijah Serra DO [address] [place] [address] PCP - General Family Medicine 07/21/23 Willi Templeton MD [address] [place] [address] Gastroenterology 02/25/16 María Andre MD [address] [place] [facility] [place] [address] Gastroenterology 03/08/16 Selene Rodriguez APRN [address] [place] [address] [address] [place], [place] [address] Gastroenterology 08/23/16 Mariah Flowers APRN [address] [place] [address] Nurse Practitioner 08/26/16 Neyda Beltran MD [address] [place] [address] Nephrology 03/17/17 Ryanne Roblero MD [address] [place] [address] Rheumatology 03/01/18 Mi Martin APRN 1000 [facility] [address] [place] [address] Nurse Practitioner Nurse Practitioner 04/16/19 documented as of this encounter
--- OUTSIDE RECORDS SUMMARY | 2024-08-20 15:26 | XMS_ITS | Encounter Summary ---
Author Organization [employer] ([place], [place], [place], [place]) Address [address] [place] [address] Care Team Providers Care Bucket Operator Name Role Phone Elijah Serra DO Primary Care Provider [phone] Encounter Details Date Type Department Care Team (Late st Contact Info) Description 07/18/2021 Transcribed Document [facility] Family Medicine [address] [place] [address] ProviderMichael MD [address] [place] [address] Social History Tobacco Use Types [...] Do you speak a language other than Congolese at [facility]? No 09/05/2023 Do [...] LOF for IADLs, OT : Independent GUMARO CANALES OTR/Asia Naranjo 07/20/2021 14:11 EDT Upper Extremity [...] GUMARO CANALES OTR/L - 07/20/2021 14:11 [address] Street[employer] Starter Goals, OT Dressing, Lower Body LTG Grid [...] 3 other LOB requiring correction. Pt given assistant store manager sales and educated on safety. Pt verbalized understanding and agreed to use assistant store manager sales. Assessment : Pt will benefit from continued [...] on filedocumented in this encounter Care Teams Bucket Operator Relationship Specialty Start Date End Date Elijah Serra, DO 100 [facility] 1ST [place] [address] PCP - General Family Medicine 03/11/23 documented as of this encounter
--- OUTSIDE RECORDS SUMMARY | 2024-08-20 15:26 | XMS_ITS | Encounter Summary ---
Author Organization [facility] Address [address] [place] [address] Support Name Relationship Address Phone Stepan Gold Personal Relationship [address] [place] [address] Mi Asif Personal Relationship Unknown Rosalind Andersonill Personal Relationship Unknown Vivi Ward Personal Relationship Unknown Care Team Providers Care Office Supervisor Name Role Phone Willi Templeton MD Unavailable [phone] María Andre MD Unavailable [phone] Selene Rodriguez COSMETICS COUNTER MANAGER Unavailable [phone] Mariah Flowers COSMETICS COUNTER MANAGER Unavailable [phone] Neyda Beltran MD Unavailable Ryanne Roblero MD Unavailable Unavailable Mi Martin COSMETICS COUNTER MANAGER Unavailable [phone] Elijah Serra DO Primary Care Provider [phone] Encounter Details Date Type Department Care [...] materials from doctor or pharmacy Never 04/29/2023 [facility] Utilities Answer Date Recorded In the past [...] any time in the past 12 m [facility], were you homeless or living in a intermediate (including now)? No 04/02/2024 Sex and Gender Information Value Date Recorded Sex Assigned at Not on file Legal Sex Male 9:48 PM EST Gender Identity Not on file Sexual Orientation Not on file documented as of this encounter Plan of Treatment Upcoming Encounters Date Type Department Care Team (Late st Contact Info) Description 11/06/2024 11:00 AM EDT Office Visit [facility] [address] [place] [address], [facility] [address] [place] [address] Micha Washington MD [address] [place] [address] [address] [place], [place] [phone] Molly Figueroa PA-C [address] [place] [phone] documented as of this encounter Visit Diagnoses Not on filedocumented in this encounter Care Teams Office Supervisor Relationship Specialty Start Date End Date Elijah Serra DO [address] [place] [id number] PCP - General Family Medicine 07/21/23 Willi Templeton MD [address] [place] [address] 430 [place] [address] Gastroenterology 02/25/16 María Andre MD [address] [place] [address] 430 [place] [address] Gastroenterology 03/08/16 Selene Rodriguez APRN [address] [place] [address] 203 [place] [address] Gastroenterology 08/23/16 Mariah Flowers APRN [address] [place] [address] Nurse Practitioner 08/26/16 Neyda Beltran MD [address] [facility] [place] [address] Nephrology 03/17/17 Ryanne Roblero MD [address] [facility] [place] [address] Rheumatology 03/01/18 Mi Martin APRN 1000 [facility] 102 [place] [address] Nurse Practitioner Nurse Practitioner 04/16/19 documented as of this encounter
--- OUTSIDE RECORDS SUMMARY | 2024-08-20 15:26 | XMS_ITS | Encounter Summary ---
Author Organization [employer] ([place], [place], [place], [place]) Address [address] [place] [address] Care Team Providers Care Network Relations Consultant Name Role Phone Elijah Serra DO Primary Care Provider [phone] Encounter Details Date Type Department Care Team (Late st Contact Info) Description 07/18/2021 Transcribed Document [facility] Family Medicine [address] [place] [address] ProviderMichael MD [address] [place] [address] Social History Tobacco Use Types [...] Do you speak a language other than [place]ian at [facility]? No 09/05/2023 Do you want help [...] MARCOS OLSEN RN - 07/18/2021 15:34 EDT documented in this encounter Plan of Treatment Not on file documented as of this encounter Visit Diagnoses Not on filedocumented in this encounter Care Teams Network Relations Consultant Relationship Specialty Start Date End Date Elijah Serra, DO 100 [facility] 1ST [place] [address] PCP - General Family Medicine 03/11/23 documented as of this encounter
--- OUTSIDE RECORDS SUMMARY | 2024-08-20 15:26 | XMS_ITS | Clinical Summary ---
Author Organization [facility] Address [address] [place] [address] Phone Care Team Providers Care Licensing And Registration Director Name Role Phone Darwin Velasco MD [ ] Conditions or Problems Problem Name Problem Code Onset Date Status Entry Date Provider Comment Standard Description Annotate Infective bursitis, left knee (document organism) M71.162 (ICD-10-CM) 05/27 Inactive 05/27 Mojgan Hussein Other infective bursitis, left knee Problem excluded fro m report: Prepatellar bursitis, left knee M70.42 (ICD-10-CM) 05/27 Active 05/27 Mojganhai Savage Prepatellar bursitis, left knee DM, type I 10070633 (SNOMED CT) 05/27 Active 05/27 Mojgan Hussein Type 2 diabetes mellitus Benign Essential Hypertension 94600591 (SNOMED CT) 05/27 Active 05/27 Mojgan Hussein Benign hypertension Infective bursitis, left knee (document organism) M71.162 (ICD-10-CM) 05/27 Removed 05/27 Mojgan Hussein Other infective bursitis, left knee Cellulitis of LLE 799241967 (SNOMED CT) 05/27 Active 05/27 Mojgan Hussein Cellulitis of lower limb Medications Medication Instructions Start Date Stop Date Generic Name NDC Provider Invanz unspecified unspecified Invanz 1GM IV daily [facility] labs linecare and dose weekly 06/24 ertapenem 40414008814 Asha Mcdermott RN Cubicin unspecified unspecified Cubicin 500mg IV daily [facility] labs linecare and dose 06/24 daptomycin 15293321075 Asha Mcdermott RN DOXYCYCLINE MONOHYDRATE 100 MG CAPS 1 capsule by mouth twice a day 06/24 doxycycline monohydrate 71396295786 Darwin Velasco MD Invanz unspecified unspecified Invanz 1GM IV daily [facility] labs linecare and dose weekly 06/24 ertapenem 80602646953 Asha Mcdermott RN Cubicin unspecified unspecified Cubicin 500mg IV daily [facility] labs linecare and dose 06/24 daptomycin 80382920400 Asha Mcdermott RN POTASSIUM CHLORIDE ER 10 MEQ CR-TABS as directed potassium chloride 178420159 77 Judson Sawyer GABAPENTIN 600 MG TABS 2 tab daily gabapentin 95928955524 Judson Sawyer MOXIFLOXACIN HCL 0.5 % SOLN 06/02 moxifloxacin 49270174844 Jose China ERYTHROMYCIN 5 MG/GM OINT 06/02 erythromycin 64680872145 Jose China TIZANIDINE HCL 4 MG TABS 1 tab daily as needed tizanidine 57685500278 Judson Sawyer TRIAMCINOLONE ACETONIDE 0.1 % CREA 06/02 triamcinolone acetonide 14524058588 Jose China NITROGLYCERIN 0.4 MG SUBL 06/02 nitroglycerin 01354593673 Jose China HYDROXYCHLOROQUINE SULFATE 200 MG TABS 1 tab daily hydroxychloroquine 8516544 7301 Judson Sawyer DICLOFENAC SODIUM 1 % GEL 06/02 diclofenac sodium 58232840583 Jose Moriches CICLOPIROX 0.77 % GEL 1 as directed to affected area once a day ciclopirox 13002789545 Judson Sawyer METOPROLOL SUCCINATE ER 50 MG [id number] 1 tab daily metoprolol succinate 67794291061 Judson Friasi BACLOFEN 10 MG TABS 06/02 baclofen 56428797318 Jose China HYDROCODONE-ACETAMI NOPHEN 5-325 MG TABS 1 tab every 6 hrs as needed hydrocodone-acetami nophen 64546020264 Judson Sawyer ISOSORBIDE MONONITRATE ER 30 MG [id number] 06/02 isosorbide mononitrate 76607250170 Jose China FLUTICASONE PROPIONATE 50 MCG/ACT SUSP as directed fluticasone propionate 78335621403 Judson Sawyer CLOPIDOGREL BISULFATE 75 MG TABS 1 tab daily clopidogrel 73383261629 Judson Sawyer FUROSEMIDE 40 MG TABS 1 tab daily furosemide 48330941819 Judson Sawyer LISINOPRIL 2.5 MG TABS 1 tab daily lisinopril 21009257419 Judson Sawyer TAMSULOSIN HCL 0.4 MG CAPS 1 tab at nightly tamsulosin 53388006263 Judson Sawyer DULOXETINE HCL 60 MG CPEP 06/02 duloxetine 01471780409 Jose China SUCRALFATE 1 GM TABS 1 tab daily sucralfate 44966937801 Judson Sawyer CLINDAMYCIN HCL 300 MG CAPS 06/02 clindamycin hcl 15020982857 Jose Moriches ALLOPURINOL 100 MG TABS as directed allopurinol 35890665988 Judson Sawyer Novolog U-100 Insulin aspart 100 unit/mL solution 06/02 insulin aspart u-100 07179421440 Jose China LEVOTHYROXINE SODIUM 125 MCG TABS 1 tab daily levothyroxine 75351556411 Judson Sawyer TRAZODONE HCL 150 MG TABS as directed trazodone 49913247948 Judson Sawyer aspirin 325 mg capsule 1 tab daily aspirin Judson Sawyer CRESTOR 20 MG TABS 1 tab daily rosuvastatin 0031 5378171 Judson Sawyer COLCHICINE 0.6 MG TABS 1 tab daily colchicine 66653625064 Judson Sawyer sumatriptan succinate unspecified unspecified as directed sumatriptan succinate Judson Sawyer Augmentin 875-125 mg tablet 1 tab BID amoxicillin-pot clavulanate 24564788736 Judson Sawyer MOXIFLOXACIN HCL 0.5 % SOLN 06/02 moxifloxacin 37509600650 Jose Moriches DICLOFENAC SODIUM 1 % GEL 06/02 diclofenac sodium 70115784826 Jose Moriches DULOXETINE HCL 60 MG CPEP 06/02 duloxetine 54299890352 Jose Moriches TAMSULOSIN HCL 0.4 MG CAPS 10/17 tamsulosin 70302962285 Jose China TRAZODONE HCL 150 MG TABS 06/02 trazodone 17821273982 Jose Moriches TRIAMCINOLONE ACETONIDE 0.1 % CREA 02/02 triamcinolone acetonide 49136221914 Jose China POTASSIUM CHLORIDE ER 10 MEQ CR-TABS 06/02 potassium chloride 97840414842 Jose Moriches ISOSORBIDE MONONITRATE ER 30 MG [id number] 06/02 isosorbide mononitrate 11308422445 Jose Moriches CICLOPIROX 0.77 % GEL 06/02 ciclopirox 05450741382 Jose Moriches FUROSEMIDE 40 MG TABS 06/02 furosemide 66575846691 Jose China HYDROXYCHLOROQUINE SULFATE 200 MG TABS 08/07 hydroxychloroquine 93088827515 Jose Moriches FLUTICASONE PROPIONATE 50 MCG/ACT SUSP 08/07 fluticasone propionate 04767896568 Jose Moriches LISINOPRIL 2.5 MG TABS 06/02 lisinopril 18483839643 Jose Moriches Novolog U-100 Insulin aspart 100 unit/mL solution 06/02 insulin aspart u-100 35253539136 Jose China LEVOTHYROXINE SODIUM 125 MCG TABS 06/02 levothyroxine 90024343187 Jose Moriches ERYTHROMYCIN 5 MG/GM OINT 06/02 erythromycin 95202706104 Jose Moriches NITROGLYCERIN 0.4 MG SUBL 06/02 nitroglycerin 34685251375 Jose China BACLOFEN 10 MG TABS 06/02 baclofen 85054159876 Jose China CLOPIDOGREL BISULFATE 75 MG TABS 06/02 clopidogrel 60730791267 Jose Moriches ALLOPURINOL 100 MG TABS 06/02 allopurinol 99567692485 Jose China SUCRALFATE 1 GM TABS 06/02 sucralfate 18111670842 Jose China HYDROCODONE-ACETAMI NOPHEN 5-325 MG TABS 06/02 hydrocodone-acetami nophen 02523759787 Jose Moriches METOPROLOL SUCCINATE ER 50 MG [id number] 06/02 metoprolol succinate 76788318964 Jose Moriches TIZANIDINE HCL 4 MG TABS 06/02 tizanidine 79097188040 Jose Moriches GABAPENTIN 600 MG TABS 06/02 gabapentin 33994246363 Jose China CLINDAMYCIN HCL 300 MG CAPS 08/07 clindamycin hcl 31215838607 Jose Moriches Medications Administered No information available. Allergies, Adverse [...] Labs CPT- stat weekly Stat Weekly Labs CPT-[id number] PICC Line Insertion Vital Signs Date Name [...] Directives Directive Description Start Date POWER OF BOILER WATER TESTER
--- OUTSIDE RECORDS SUMMARY | 2024-08-20 15:26 | XMS_ITS | Data Portability ---
Author Organization [facility] Address [address] [place] [address] Assessment No assessment recorded. Plan of Treatment Reminders Order Date Submit Date Provider Last Modified By Organization Details Last Modified Time Details Appointments None recorded. Lab None recorded. Referral None recorded. Procedures None recorded. Surgeries None recorded. Imaging None recorded. Medication Orders clindamycin HCl 300 mg capsule [address], [address], 4 09:54:57 hydroxyzine HCl 25 mg tablet [address], [address], 4 09:54:57 hydroxyzine HCl 25 mg tablet [address], [address], 4 09:01:07 clindamycin HCl 300 mg capsule [address], [address], 4 09:01:07 Patient TargetsNo targets recorded. Patient Instructions Encounter Date Encounter Id Patient Instructions Last Modified By Organization Details Last Modified Time 12/27/2023 [id number] body mass index: care instructions Not available 12/27/2023 09:01:06 learning about healthy weight [id number] Not available 12/27/2023 09:01:06 Reason for Referral None Reported. Problems Name Problem SNOMED Code Status Onset Date Resolution Date Notes Provider Name and Address Organization Details Recorded Time Type 1 diabetes mellitus 47553771 Active 2023 Sabrina Corrine null, [place] - [facility] 4 08:26:31 Chronic rheumatic arthritis 4703652805 Active 2023 Sabrina Corrine null, [place] - [facility] 4 08:26:56 Gout 30815357 Active 2023 Sabrina Corrine null, [place] - [facility] 4 08:27:04 Coronary arteriosclero sis 55070619 Active 2023 Sabrina Corrine null, [place] - [facility] 4 08:27:30 Hypertensive disorder 48770568 Active 2023 Sabrina Corrine null, [place] - [facility] 4 08:27:46 Erosive osteoarthrosi s 586303347 Active 2023 Sabrina Corrine null, [place] - [facility] 4 08:49:07 Environmental allergy 836011742 Active 2023 Sabrina Corrine null, [place] - [facility] 4 08:50:34 Hypercholeste rolemia 42062243 Active 2023 Sabrina Corrine [place], [place] - [facility] 4 08:50:50 Benign prostatic hyperplasia 265036420 Active 2023 Sabrina Corrine null, [place] - [facility] 4 08:51:34 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 Active 2023 Sabrina Corrine null, [place] - [facility] 4 08:52:11 Hypothyroidis m 28179001 Active 2023 Sabrina Corrine null, [place] - [...] Name and Address Organization Details Recorded Time 648659 iodine medicatio n swelling Not available Not available 12/27/2023 5933 RxNorm throa t swell ing Sabrina Castle null, [place] - [facility] 4 08:18:04 322848 adhesive tape environme nt,medica tion Not available Not available Not available 12/27/2023 62829 UNK blist ers Sabrina Corrine null, [place] [...] Updated DateTime 4 175.26 cm 28.8 kg/m2 20543.5 1 g 98.4 [degF] 72 /min 95 [...] SNOMED-CT Code Diagnosis ICD10 Code Diagnosis Note [id number] Jose Vega MD [facility] [address] [place] [address] 12/27/2023 08:00:56 12/27/2023 09:14:51 Body mass index 25-29 - overweight 941123401 Z68.28 Overweight 026624044 E66 .3 Otalgia of right ear 011 1270584 H92.01 Congestion of nasal sinus 92673672 R09.81 [id number] Jose Vega MD [place] [address] [facility]. [place] [address] 01/03/2024 09:06:47 01/03/2024 09:55:24 Otalgia of right ear 3674585900 H92.01 Congestion of nasal sinus 93791660 R09.81 Health Concerns Section Related Observation LastModified by Organization Detai ls LastModified Time None Recorded Concern Status LastModified by Organization Details LastModified Time None Recorded Advance Directives Directive None Recorded Payers Insurance Date Sequence Insurance Name Policy Number Policy Coleman Covered Member ID Coleman Member ID Guarantor Name 02/16/2024 2 [employer] (MEDICARE SUPPLEMENT) Obdulio Gold [id number] Obdulio Gold 12/27/2023 1 [place] Obdulio Gold [id number] Obdulio Gold 02/16/2024 [place] [place] - [facility] (MEDICARE) Obdulio Gold [id number] Obdulio Gold Notes Date Note Type [...] contacts. Jose Vega MD [address], [place], [address], [place] - [facility] 12/27/2023 12:42:04 01/03/2024 text/html [...] contacts. Jose Vega MD [address], [place], [address], [facility] - [facility] 01/09/2024 11:36:24
--- OUTSIDE RECORDS SUMMARY | 2024-08-20 15:26 | XMS_ITS | Encounter Summary ---
Author Organization [facility] ([place], [place], [place], [place]) Address [address] [place] [address] Care Team Providers Care Twisting Operator Name Role Phone Elijah Serra DO Primary Care Provider [phone] Encounter Details Date Type Department Care Team (Late st Contact Info) Description 07/19/2021 Transcribed Document [facility] [address] [place] [address] ProviderMichael MD [address] [place] [address] Social History Tobacco Use Types [...] Do you speak a language other than [facility] at [facility]? No 09/05/2023 Do you want help [...] 2000, post CABG PCI in 2017 in [facility]. He has stage III CKD type [...] currently under the care of a specialized youth teacher. The right eye has been sewn together. A Myoview stress test last year abnormal with inferior wall defect normal LV function normal ejection fraction. We attempted medical management however he had persistent symptoms and was taken for LHC on 08/18/2020. He demonstrated severe [place] CAD involving the LAD diagonal and obtuse [...] medication. 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 generalized weakness and skinned his [...] CABG 06/2000, post CABG PCI 2009, 2016 [facility] 08/2020 severe [place] CAD with patent SVG diagonal/LAD, patent SVG-OM1, [...] PRN heparin, 5000 Units= 1 mL, SubCutaneous, [id number] hydrALAZINE, 5 mg= 0.25 mL, IV Push, [...] Oxervate 0.002 % eye drops Potassium Chloride (Bkr-Dcki-Lvk M10) 10 mEq oral tablet, extended release, [...] Pending Echo Pending Electronically signed by Florencia [facility] Conversion Addiction Social Worker Cerner at 05/25/2022 6:15 PM CDT documented in this encounter Plan of Treatment Not on file documented as of this encounter Visit Diagnoses Not on filedocumented in this encounter Care Teams Twisting Operator Relationship Specialty Start Date End Date Elijah Serra, DO [address] [facility] 1ST [place] [id number] PCP - General Family Medicine 03/11/23 documented as of this encounter
--- OUTSIDE RECORDS SUMMARY | 2024-08-20 15:26 | XMS_ITS | Encounter Summary ---
Author Organization [facility] Address [address] [place] [address] Support Name Relationship Address Phone Stepan Gold Personal Relationship [address] [place] [address] Mi Asif Personal Relationship Unknown Rosalind Andersonill Personal Relationship Unknown Vivi [place] Personal Relationship Unknown [phone] Care Team Providers Care Staff Attorney Name Role Phone Willi Templeton MD Unavailable [phone] María Andre MD Unavailable [phone] Selene Rodriguez [employer] Unavailable Mariah Flowers [employer] Unavailable [phone] Neyda Beltran MD Unavailable Ryanne Roblero MD Unavailable Unavailable Mi Martin [employer] Unavailable [phone] Elijah Serra DO Primary Care Provider [phone] Encounter Details Date Type Department Care [...] materials from doctor or pharmacy Never 04/29/2023 [facility] Utilities Answer Date Recorded In the [...] any time in the past 12 m [facility], were you homeless or living [...] 11:00 AM EDT Office Visit [facility] [address] [place] [address], [facility] [address] [place] [address] Micha [place] MD [address] [place] [address] [address] [place], [place] [address] Molly Figueroa PA-C [address] [place] [address] [id number] documented as of this encounter Visit Diagnoses Not on filedocumented in this encounter Care Teams Staff Attorney Relationship Specialty Start Date End Date Elijah Serra DO [address] [place] [id number] PCP - General Family Medicine 07/21/23 Willi Templeton MD [address] [place] [address] [address] [place] [address] Gastroenterology 02/25/16 María Andre MD [address] [place] [address] [address] [place] [address] Gastroenterology 03/08/16 Selene Rodriguez APRN [address] [place] [address] [address] [place] [address] Gastroenterology 08/23/16 Mariah Flowers APRN [address] [place] [address] Nurse Practitioner 08/26/16 Neyda Beltran MD [address] [facility] [place] [address] Nephrology 03/17/17 Ryanne Roblero MD [address] [facility] [place] [address] Rheumatology 03/01/18 Mi Martin APRN [address] [facility] [address] [place] [address] Nurse Practitioner Nurse Practitioner 04/16/19 documented as of this encounter
--- OUTSIDE RECORDS SUMMARY | 2024-08-20 15:26 | XMS_ITS | Encounter Summary ---
Author Organization [facility] Address [address] [place] [address] Support Name Relationship Address Phone Stepan Gold Personal Relationship [address] [place] [address] Mi Asif Personal Relationship Unknown [phone] Rosalind Andersonill Personal Relationship Unknown [phone] Vivi [place] Personal Relationship Unknown [phone] Care Team Providers Care Long Term Care Phlebotomist Name Role Phone Willi Templeton MD Unavailable [phone] María Andre MD Unavailable Selene Rodriguez FURNACE INSTALLER HELPER Unavailable Mariah Flowers FURNACE INSTALLER HELPER Unavailable [phone] Neyda Beltran MD Unavailable Ryanne Roblero MD Unavailable Unavailable Mi Martin FURNACE INSTALLER HELPER Unavailable [phone] Elijah Serra DO Primary Care Provider [phone] Micha [place] MD Unavailable Encounter Details [...] materials from doctor or pharmacy Never 04/29/2023 [facility] Utilities Answer Date Recorded In the past 12 months has th e [employer], gas, oil, or water company threatened to [...] any time in the past 12 m [facility], were you homeless or living in a senior living (including now)? No 04/02/2024 Sex and Gender Information Value Date Recorded Sex Assigned at Not on file Legal Sex Male 9:48 PM EST Gender Identity Not on file Sexual Orientation Not on file documented as of this encounter Plan of Treatment Upcoming Encounters Date Type Department Care Team (Late st Contact Info) Description 11/06/2024 11:00 AM EDT Office Visit [facility] [address] [place] [address], [facility], [address] [place] [address] Micha Washington MD [address] [place] [address] [place] [id number] Molly Figueroa PA-C [address] [place] [address] [place] [address] [phone] documented as of this encounter Visit Diagnoses Not on filedocumented in this encounter Care Teams Long Term Care Phlebotomist Relationship Specialty Start Date End Date Elijah Serra DO [address] [place] [address] PCP - General Family Medicine 07/21/23 Willi Templeton MD [address] [place] [address] [address] [facility] [place] [address] Gastroenterology 02/25/16 María Andre MD [address] [place] [address] [address] [place] [address] Gastroenterology 03/08/16 Selene Rodriguez APRN [address] [place] [address] [address] [place] [address] Gastroenterology 08/23/16 Mariah Flowers APRN [address] [place] [address] [address] [place] [address] Nurse Practitioner 08/26/16 Neyda Beltran MD [address] [place] [address] [address] [place] [address] Nephrology 03/17/17 Ryanne Roblero MD [address] [place] [address] [address] [place] [address] Rheumatology 03/01/18 Mi Martin APRN [address] [place] [address] [address] [place] [id number] Nurse Practitioner Nurse Practitioner 04/16/19 Micha [place] MD [address] [place] [address] [address] [place] [address] Endocrinology 08/06/24 08/06/24 documented as of this encounter
--- OUTSIDE RECORDS SUMMARY | 2024-08-20 15:27 | XMS_ITS | Encounter Summary ---
Author Organization Healthcare Address [address] [place] [address] Care Team Providers Care Tobacco Conditioner Name Role Phone Elijah Serra DO Primary Care Provider [phone] Encounter Details Date Type Department Care Team (Late st Contact Info) Description 07/15/2024 Orders Only External Location [address] [place] [address] Provider, External Social History Tobacco Use Types [...] and Family Not on file 07/16/2024 Attends Spiritism Services Not on file 07/16 Active Member [...] any time in the past 12 m [facility], were you homeless or living in a senior care (including now)? No 07/16/2024 Utilities Answer Date [...] Indicated 07/15/2024 5:16 PM EDT Ruth Ann Rivero RN * Question Answer Date of Assessment [...] infection. Source: [facility]. 02/22/2017 07/15/2024 Respiratory Rule-Out 07/15/2024 07/15/2024 025 10:50 PM EDT Assessment Noted Time A Body Mass Index follow-up plan has been documented for the patient 07/20/2024 1:44 PM EDT documented as of this encounter Care Teams Tobacco Conditioner Relationship Specialty Start Date End Date Elijah Serra DO [address] [place] [address] PCP - General Rolfer 12/01/22 documented as of this encounter
--- OUTSIDE RECORDS SUMMARY | 2024-08-20 15:27 | XMS_ITS | Encounter Summary ---
Author Organization Healthcare Address [address] [place] [address] Care Team Providers Care Boom Master Name Role Phone Elijah Serra DO Primary Care Provider [phone] Encounter Details Date Type Department Care Team (Late st Contact Info) Description 07/15/2024 Orders Only External Location [address] [place] [address] Provider, External Social History Tobacco Use Types [...] and Family Not on file 07/16/2024 Attends Scientologist Services Not on file 07/16 Active Member [...] any time in the past 12 m [facility], were you homeless or living in a half-way (including now)? No 07/16/2024 Utilities Answer Date [...] Time MRSA Comment:Added from external infection. Source: [facility]. 02/22/2017 07/15/2024 Respiratory Rule-Out 07/15/2024 07/15/2024 025 10:50 PM EDT Assessment Noted Time A Body Mass Index follow-up plan has been documented for the patient 07/20/2024 1:44 PM EDT documented as of this encounter Care Teams Boom Master Relationship Specialty Start Date End Date Elijah Serra DO [address] [place] [address] PCP - General Manufacturing Controller 12/01/22 documented as of this encounter
--- OUTSIDE RECORDS SUMMARY | 2024-08-20 15:27 | XMS_ITS | Encounter Summary ---
Author Organization Healthcare Address [address] [place] [address] Care Team Providers Care Dental Specialist Name Role Phone Elijah Serra DO Primary Care Provider [phone] Encounter Details Date Type Department Care Team (Late st Contact Info) Description 07/15/2024 Orders Only External Location [address] [place] [address] Provider, External Social History Tobacco Use Types [...] and Family Not on file 07/16/2024 Attends Faith Services Not on file 07/16 Active Member [...] any time in the past 12 m [facility], were you homeless or living in a snf (including now)? No 07/16/2024 Utilities Answer Date [...] 1 Month) No 025 5:16 PM EDT Rtuh Ann Hua RN 2. Non-Specific Active Suici [...] Time MRSA Comment:Added from external infection. Source: [facility]. 02/22/2017 07/15/2024 Respiratory Rule-Out 07/15/2024 07/15/2024 025 10:50 PM EDT Assessment Noted Time A Body Mass Index follow-up plan has been documented for the patient 07/20/2024 1:44 PM EDT documented as of this encounter Care Teams Dental Specialist Relationship Specialty Start Date End Date Elijah Serra DO [address] [place] [address] PCP - General Rail Project Engineer 12/01/22 documented as of this encounter
--- OUTSIDE RECORDS SUMMARY | 2024-08-20 15:27 | XMS_ITS | Encounter Summary ---
Author Organization Healthcare Address [address] [place] [id number] Care Team Providers Care Diesel Engine Engineer Name Role Phone Ponce Elijah Taylor DO Primary Care Provider [phone] Encounter Details Date Type Department Care Team [...] and Family Not on file 07/16/2024 Attends Yazidism Services Not on file 07/16 Active Member [...] any time in the past 12 m [facility], were you homeless or living in a [facility] (including now)? No 07/16/2024 Utilities Answer Date [...] Time MRSA Comment:Added from external infection. Source: [facility]. 02/22/2017 07/15/2024 Assessment Noted Time A Body Mass Index follow-up plan has been documented for the patient 07/20/2024 1:44 PM EDT documented as of this encounter Care Teams Diesel Engine Engineer Relationship Specialty Start Date End Date Elijah Serra DO [address] [place] [address] PCP - General Marine Electrician Apprentice 12/01/22 documented as of this encounter
--- OUTSIDE RECORDS SUMMARY | 2024-08-20 15:27 | XMS_ITS | Encounter Summary ---
Author Organization Healthcare Address [address] [id number] Care Team Providers Care Door And Arrival Attendant Name Role Phone Ponce Elijah Taylor DO Primary Care Provider [phone] Encounter Details Date Type Department Care Team [...] and Family Not on file 07/16/2024 Attends [employer] Services Not on file 07/16 Active Member [...] time in the past 12 m [facility], were you homeless or living [...] Time MRSA Comment:Added from external infection. Source: [facility]. 02/22/2017 07/15/2024 Respiratory Rule-Out 07/15/2024 07/15/2024 025 10:50 PM EDT Assessment Noted Time A Body Mass Index follow-up plan has been documented for the patient 07/20/2024 1:44 PM EDT documented as of this encounter Care Teams Door And Arrival Attendant Relationship Specialty Start Date End Date Elijah Serra DO [address] [place] [address] PCP - General Electrical Appliance Repairer 12/01/22 documented as of this encounter
--- OUTSIDE RECORDS SUMMARY | 2024-08-20 15:27 | XMS_ITS | Encounter Summary ---
Author Organization Healthcare Address [address] 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 No 07/16/2024 Utilities Answer Date [...] Time MRSA Comment:Added from external infection. Source: [facility]. 02/22/2017 07/15/2024 Respiratory Rule-Out 07/15/2024 07/15/2024 025 10:50 PM EDT Assessment Noted Time A Body Mass Index follow-up plan has been documented for the patient 07/20/2024 1:44 PM EDT documented as of this encounter Care Teams Seed Cleaning Machine Operator Relationship Specialty Start Date End Date Elijah Serra DO [address] [place] [address] PCP - General Police Clerk 12/01/22 documented as of this encounter
--- OUTSIDE RECORDS SUMMARY | 2024-08-20 15:28 | XMS_ITS | Encounter Summary ---
Author Organization [facility] Address [address] [place] [address] Support Name Relationship Address Phone Stepan Gold Personal Relationship [address] [place] [address] Mi Gold Personal Relationship Unknown Rosalind Mai Personal Relationship Unknown + [phone] Vivi Ward Personal Relationship Unknown [phone] Care Team Providers Care Head Of Advertising Name Role Phone Yehuda Barger MD Primary Care Provider [phone] Milton Crum DO Primary Care Provider Miky Benton MD Primary Care Provider [phone] Provider, Historical Unavailable Unavailable Willi Templeton MD Unavailable [phone] María Andre MD Unavailable [phone] Selene Rodriguez CITIZEN PARTICIPATION SPECIALIST Unavailable [phone] Mariah Flowers CITIZEN PARTICIPATION SPECIALIST Unavailable [phone] Neyda Beltran MD Unavailable [phone] Ryanne Roblero MD Unavailable Unavailable Mi Martin APRN Unavailable [phone] Elijah Serra DO Primary Care Provider [phone] Micha Washington MD Unavailable Encounter Details Date Type Department Care Team (Late st Contact Info) Description 01/06/2002 Historical Encounter Global Artis Alonso MD [facility] Emergency Dept. [address] [place] [address] Social History Tobacco Use Types Packs/Day Years [...] Office Visit [facility] [address] [place] [place] [id number] Micha Washington MD [address] [place] [address] [place] [address] [id number] Molly Figueroa PA-C [address] [place] [address] [phone] documented as of this encounter Visit Diagnoses Not on filedocumented in this encounter Additional Health Concerns Infection Onset Date Last Indicated Resolved Time 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 02/24/2017 02/22/2017 02/22/2017 04/02/2024 9:[address] documented as of this encounter Care Teams Head Of Advertising Relationship Specialty Start Date End Date Yehuda Barger MD [address] [place] [address] [address] [place] [address] PCP - General 02/16/09 04/13/23 Milton Crum DO [address] [place] [address] [address] [place] [address] PCP - General 01/08/09 02/15/09 Miky Louis MD [address] [place] [address] PCP - General 12/26/07 01/07/09 Elijah Serra DO [address] [place] [address] PCP - General Family Medicine 07/21/23 Provider, Historical 02/16/16 08/25/16 Willi Templeton MD [address] [place] [address] Gastroenterology 02/25/16 María Andre MD [address] [place] [address] [address] [place] [address] Gastroenterology 03/08/16 Selene Rodriguez APRN [address] [place] [address] [address] [place] [address] Gastroenterology 08/23/16 Mariah Flowers APRN [address] [place] [address] [address] [place] [address] Nurse Practitioner 08/26/16 Neyda Beltran MD [address] [place] [address] Nephrology 03/17/17 Ryanne Roblero MD [address] [place] [address] Rheumatology 03/01/18 Mi Martin APRN [address] [place] [address] [address] [place] [address] Nurse Practitioner Nurse Practitioner 04/16/19 Micha Washington MD [address] [place] [address] [address] [place], [place] [id number] Endocrinology 08/06/24 08/06/24 documented as of this encounter
--- OUTSIDE RECORDS SUMMARY | 2024-08-20 15:28 | XMS_ITS | Data Portability ---
Author Organization SYDNEY Jayshree willingham, CKS LONGTON CLOSED Address [address] [facility] [address] [place] [address] Care Team Providers Care Licensed Acupuncturist Name Role Phone EVANGELINA HOUSTON Primary Care Provider CINDY LABOY Electric Tool Repairer LESLEY GRACE Primary Care Provider GABRIELLA GAFFNEY Checking Clerk HILARIA ANGEL Lead Driver Assessment Encounter Date Assessment Date Assessment LastModified by Organization Details LastModified Time 05/23/2024 05/23/2024 Medical management lower urinary symptoms with double dose tamsulosin and finasteride. We reviewed BPH care pathway. Not available 06/06/2024 10:33:02 07/23/2024 07/23/2024 We [...] available NEUROLOG Y RECHECK 2024 10:00A M JOSR HERRING MD Not available Not available Not available RECLAST [...] urinalys is panel, auto 2024 025 [email or web address] [facility], [address], [place], [address], 07/05/2024 11:11:04 CBC w/ auto diff 2024 025 [facility], [address] [place] [address], [address], 07/05/2024 15:58:22 CMP, serum or plasma 2024 025 [facility], [address] [place] [address], [address], 07/05/2024 15:51:02 lipase, serum or plasma 2024 025 [facility], [address] [place] [address], [address], 07/05/2024 15:51:04 urinalys is panel, auto [email or web address] [place], [place] [address]y [facility], [address], [place], [address], 06/06/2024 10:33:03 CBC w/ auto diff 2024 025 [email or web address] [facility], [address] [place] [address], [address], 08/20/2024 07:33:56 creatini ne, serum or plasma 2024 025 [email or web address] [facility], [address] [place] [address], [address], 05/29/2024 08:07:20 ALT (alanine aminotra nsferase ), serum or plasma [address] [facility], [address] [place] [address], [address], 05/29/2024 08:07:20 AST/SGOT (asparta te aminotra nsferase ), serum or plasma [address] [facility], [address] [place] [address], [address], 05/29/2024 08:07:20 ESR (erythro cyte sediment ation rate), blood [address] [facility], [address] [place] [address], [address], 05/29/2024 08:07:20 Referral physical therapis t referral 2024 025 [email or web address] [facility], [address], [place], [address], 08/06/2024 09:40:20 pulmonol ogist referral 2024 025 [email or web address] Hilaria Angel PA-C, [address] [place] [address], [facility] [address], [place], [address], 07/23/2024 12:28:26 speech therapy referral 2024 025 MAX [facility], [address], [place], [address], 07/31/2024 17:41:43 Procedures None recorded . Surgeries [...] suspecte d to be benign 2024 025 [facility], [address] [facility]] , [place], [address], 07/05/2024 12:21:16 Medication Orders amoxicil mariel 875 mg-potas sium clavulan ate 125 mg tablet 2024 025 [facility][id number], [address], [id number], 08/04/2024 05:01:40 doxycycl ine hyclate 100 mg capsule 2024 025 [facility] #[id number], [address], [id number], 07/05/2024 05:02:50 prometha zine-DM 6.25 mg-15 mg/5 mL oral syrup 2024 025 [facility] #[id number], [address], [id number], 07/05/2024 10:41:42 allopuri nol 300 mg tablet 2024 025 [facility] (Now [facility]), [address], [place], [address], 05/21/2024 15:09:19 duloxeti ne 60 mg capsule, delayed release 2024 025 [facility] (Now [facility]), [address], [place], [address], 05/21/2024 15:09:18 colchici ne 0.6 mg tablet 2024 025 [facility] (Now [facility]), [address], [place], [address], 05/21/2024 15:09:20 gabapent in 800 mg tablet 2024 025 [facility] (Now [facility]), [address], [place], [address], 05/21/2024 15:09:24 hydroxyc hloroqui ne 200 mg tablet 2024 025 [facility] (Now [facility]), [address], [place], [address], 05/21/2024 15:09:18 Patient TargetsNo targets recorded. Patient Instructions Encounter Date Encounter Id Patient Instructions Last Modified By Organization Details Last Modified Time 05/21/2024 [id number] Body Mass Index: Care Instructions-LC [email or web address] Not available 05/21/2024 15:09:16 05/23/2024 [id number] learning about healthy weight [email or web address] Not available 06/06/2024 10:33:03 06/18/2024 [id number] pulse oximetry* MAX Not available 06/18/2024 14:13:24 07/05/2024 [id number] - Take Corona as prescribed for pain, and you may [...] Physician: [facility], Encounter Date: 07/23/2024 Lead Driver Referral for P neumonia Referring Physician: [facility], Encounter Date: 07/23/2024 Physical Therapist Referral for Asthenia Referring Physician: [facility], Encounter Date: 07/23/2024 Results Created Date Observation Date Name Description Value Unit Range Abnormal Flag Note LastModifiedBy Organization Detail LastModifiedTime 05/24/1905/23/2024 urina lysis panel , auto Unknown Analyte Clean Catch Not Available [facility] With [address], [place], [address], 05/23/2024 11:41:47 05/24/19 25 05/23/2024 urina lysis panel , auto Unknown Analyte Yellow Not Available [facility] With [address], [place], [address], 05/23/2024 11:41:47 05/24/19 25 05/23/2024 urina lysis panel , auto Unknown Analyte Clear Not Available [facility] With [address], [place], [address], 05/23/2024 11:41:47 05/24/19 25 05/23/2024 urina lysis panel , auto Unknown Analyte 1.015 Not Available [facility] [place] [address], [place], [address], 05/23/2024 11:41:47 05/24/19 25 05/23/2024 urina lysis panel , auto Unknown Analyte 1.003 - 1.030 Not Available [facility] [place] [address], [place], [address], 05/23/2024 11:41:47 05/24/19 25 05/23/2024 urina lysis panel , auto Unknown Analyte 5.0 Not Available [facility] With [address], [place], [address], 05/23/2024 11:41:47 05/24/19 25 05/23/2024 urina lysis panel , auto Unknown Analyte 5.0 - 8.0 Not Available [facility] [place] [address], [place], [address], 05/23/2024 11:41:47 05/24/19 25 05/23/2024 urina lysis panel , auto Unknown Analyte Negati ve Not Available [facility] [place] [address], [place], [address], 05/23/2024 11:41:47 05/24/19 25 05/23/2024 urina lysis panel , auto Unknown Analyte Negati ve Not Available [facility] [place] [address], [place], [address], 05/23/2024 11:41:47 05/24/19 25 05/23/2024 urina lysis panel , auto Unknown Analyte Negati ve Not Available [facility] [place] [address], [place], [address], 05/23/2024 11:41:47 05/24/19 25 05/23/2024 urina lysis panel , auto Unknown Analyte Negati ve Not Available [facility] [place] [address], [place], [address], 05/23/2024 11:41:47 05/24/19 25 05/23/2024 urina lysis panel , auto Unknown Analyte Negati ve Not Available [facility] [place] [address], [place], [address], 05/23/2024 11:41:47 05/24/19 25 05/23/2024 urina lysis panel , auto Unknown Analyte Negati ve Not Available [facility] [place] [address], [place], [address], 05/23/2024 11:41:47 05/24/19 25 05/23/2024 urina lysis panel , auto Unknown Analyte >1000 mg/dL Not Available [facility] [place] [address], [place], [address], 05/23/2024 11:41:47 05/24/19 25 05/23/2024 urina lysis panel , auto Unknown Analyte Normal Not Available [facility] [place] [address], [place], [address], 05/23/2024 11:41:47 05/24/19 25 05/23/2024 urina lysis panel , auto Unknown Analyte Negati ve Not Available [facility] [place] [address], [place], [address], 05/23/2024 11:41:47 05/24/19 25 05/23/2024 urina lysis panel , auto Unknown Analyte Negati ve Not Available [facility] [place] [address], [place], [address], 05/23/2024 11:41:47 05/24/19 25 05/23/2024 urina lysis panel , auto Unknown Analyte Normal Not Available [facility] [place] [address], [place], [address], 05/23/2024 11:41:47 05/24/19 25 05/23/2024 urina lysis panel , auto Unknown Analyte Normal Not Available [facility] [place] [address], [place], [address], 05/23/2024 11:41:47 05/24/19 25 05/23/2024 urina lysis panel , auto Unknown Analyte Negati ve Not Available [facility] [address], [place], [address], 05/23/2024 11:41:47 05/24/19 25 05/23/2024 urina lysis panel , auto Unknown Analyte Negati ve Not Available [facility] [address], [place], [address], 05/23/2024 11:41:47 05/24/19 25 05/23/2024 urina lysis panel , auto Unknown Analyte Negati ve Not Available [facility] [place] [address], [place], [address], 05/23/2024 11:41:47 05/24/19 25 05/23/2024 urina lysis panel , auto Unknown Analyte Negati ve Not Available [facility] [place] [address], [place], [address], 05/23/2024 11:41:47 06/19/19 25 06/18/2024 pulse oxime try* Result 93% Not Available [place] [address], [place], [address], 06/18/2024 13:41:20 07/06/19 25 07/05/2024 COMP. METAB OLIC PANEL glucose 280 mg/dL 74-100 high Not Available [facility] [address] [place] [address], [address], 07/05/2024 15:51:02 07/06/19 25 07/05/2024 COMP. METAB OLIC PANEL blood urea nitrogen 13 mg/dL 6-20 normal Not Available [facility] [address] [place], [address], 07/05/2024 15:51:02 07/06/19 25 07/05/2024 COMP. METAB OLIC PANEL creatinine 1.09 mg/dL 0.70-1 .20 normal Not Available [facility] [address] [place] [address], [address], 07/05/2024 15:51:02 07/06/19 25 07/05/2024 COMP. METAB OLIC PANEL BUN/creatini ne ratio 12 (calc ) 10-20 normal Not Available [facility] [address] [place] [address], [address], 07/05/2024 15:51:02 07/06/19 25 07/05/2024 COMP. METAB OLIC PANEL sodium 140 mmol/ L 136-14 5 normal Not Available [facility] [address] [place] [address], [address], 07/05/2024 15:51:02 07/06/19 25 07/05/2024 COMP. METAB OLIC PANEL potassium 4.6 mmol/ L 3.4-5. 0 normal Not Available [facility] [address] [place] [address], [address], 07/05/2024 15:51:02 07/06/19 25 07/05/2024 COMP. METAB OLIC PANEL chloride 98 mmol/ L 98-107 normal Not Available [facility] [address] [place] [address], [address], 07/05/2024 15:51:02 07/06/19 25 07/05/2024 COMP. METAB OLIC PANEL carbon dioxide 29 mmol/ L 22-31 normal Not Available [facility] [address] [place] [address], [address], 07/05/2024 15:51:02 07/06/19 25 07/05/2024 COMP. METAB OLIC PANEL anion gap 13 (calc ) 7-25 normal Not Available [facility] [address] [place] [address], [address], 07/05/2024 15:51:02 07/06/19 25 07/05/2024 COMP. METAB OLIC PANEL calcium 10.3 mg/dL 8.6-10 .2 high Not Available [facility] [address] [place] [address], [address], 07/05/2024 15:51:02 07/06/19 25 07/05/2024 COMP. METAB OLIC PANEL total protein 7.8 g/dL 6.4-8. 3 normal Not Available [facility] [address] [place] [address], [address], 07/05/2024 15:51:02 07/06/19 25 07/05/2024 COMP. METAB OLIC PANEL albumin 4.1 g/dL 3.5-5. 2 normal Not Available [facility] [address] [place] [address], [address], 07/05/2024 15:51:02 07/06/19 25 07/05/2024 COMP. METAB OLIC PANEL globulin 3.7 1.5-4. 5 normal Not Available [facility] [address] [place] [address], [address], 07/05/2024 15:51:02 07/06/19 25 07/05/2024 COMP. METAB OLIC PANEL albumin/glob ulin ratio 1.1 (calc ) 1.1-2. 5 normal Not Available [facility] [address] [place] [address], [address], 07/05/2024 15:51:02 07/06/19 25 07/05/2024 COMP. METAB OLIC PANEL bilirubin, total 0.7 mg/dL 0.1-1. 2 normal Not Available [facility] [address] [place] [address], [address], 07/05/2024 15:51:02 07/06/19 25 07/05/2024 COMP. METAB OLIC PANEL alkaline phosphatase 109 U/L 40-129 normal Not Available [facility] [address] [place] [address], [address], 07/05/2024 15:51:02 07/06/19 25 07/05/2024 COMP. METAB OLIC PANEL AST 25 U/L 0-40 normal Not Available [facility] [address] [place] [address], [address], 07/05/2024 15:51:02 07/06/19 25 07/05/2024 COMP. METAB OLIC PANEL ALT 23 U/L 0-41 normal Not Available [facility] [address] [place], [address], 07/05/2024 15:51:02 07/06/19 25 07/05/2024 COMP. METAB OLIC PANEL eGFR 73 >= 60 normal NOT E New calcu latio n for GFR (CKD- EPI 2020) is formu lated witho ut race adjus tment facto rs at the recom menda tion of the Joan Rodriguez y Chalino aggarwal and Blanca Pinke ty of Nephr ology . This calcu latio n has not been valid ated in pregn ant women . For pedia tric patie nts refer to https ://estelle [email or web address] granados/jaylon casanova s/YAW QI/gf r_cal culat orPed Not Available [facility] [address] [place] [address], [address], 07/05/2024 15:51:02 07/06/19 25 07/05/2024 LIPAS E lipase 11 U/L 13-60 low Not Available [facility] [address] [place] [address], [address], 07/05/2024 15:51:04 07/06/19 25 07/05/2024 ALT ALT 23 U/L 0-41 normal Not Available [facility] [address] [place] [address], [address], 07/05/2024 15:55:24 07/06/19 25 07/05/2024 CREAT ININE creatinine 1.10 mg/dL 0.70-1 .20 normal Not Available [facility] [address] [place] [address], [address], 07/05/2024 15:55:27 07/06/19 25 07/05/2024 AST AST 23 U/L 0-40 normal Not Available [facility] [address] [place] [address], [address], 07/05/2024 15:55:28 07/06/19 25 07/05/2024 COMPL ETE BLOOD COUNT white blood cells 5.2 10*3/ uL 3.8-10 .8 normal Not Available [facility] [address] [place] [address], [address], 07/05/2024 15:58:22 07/06/19 25 07/05/2024 COMPL ETE BLOOD COUNT red blood cells 4.69 10*6/ uL 4.20-5 .80 normal Not Available [facility] [address] [place] [address], [address], 07/05/2024 15:58:22 07/06/19 25 07/05/2024 COMPL ETE BLOOD COUNT hemoglobin 13.1 g/dL 14.0-1 8.0 low Not Available [facility] [address] [place] [address], [address], 07/05/2024 15:58:22 07/06/19 25 07/05/2024 COMPL ETE BLOOD COUNT hematocrit 39.7 % 40.0-5 2.0 low Not Available [facility] [address] [place] [address], [address], 07/05/2024 15:58:22 07/06/19 25 07/05/2024 COMPL ETE BLOOD COUNT MCV 85 fL 80-100 normal Not Available [facility] [address] [place] [address], [address], 07/05/2024 15:58:22 07/06/19 25 07/05/2024 COMPL ETE BLOOD COUNT MCH 28 pg 26-35 normal Not Available [facility] [address] [place] [address], [address], 07/05/2024 15:58:22 07/06/19 25 07/05/2024 COMPL ETE BLOOD COUNT MCHC 33 g/dL 32-36 normal Not Available [facility] [address] [place] [address], [address], 07/05/2024 15:58:22 07/06/19 25 07/05/2024 COMPL ETE BLOOD COUNT RDW 16.7 % 11.0-1 5.0 high Not Available [facility] [address] [place] [address], [address], 07/05/2024 15:58:22 07/06/19 25 07/05/2024 COMPL ETE BLOOD COUNT MPV 6.9 fL 6.2-10 .5 normal Not Available [facility] [address] [place] [address], [address], 07/05/2024 15:58:22 07/06/19 25 07/05/2024 COMPL ETE BLOOD COUNT platelet count 188 10*3/ uL 150-40 0 normal Not Available [facility] [address] [place] [address], [address], 07/05/2024 15:58:22 07/06/19 25 07/05/2024 COMPL ETE BLOOD COUNT neutrophil,a bsolute 3.2 10*3/ uL 1.6-8. 4 normal Not Available [facility] [address] [place] [address], [address], 07/05/2024 15:58:22 07/06/19 25 07/05/2024 COMPL ETE BLOOD COUNT lymphocyte,a bsolute 1.3 10*3/ uL 0.4-5. 1 normal Not Available [facility] [address] [place] [address], [address], 07/05/2024 15:58:22 07/06/19 25 07/05/2024 COMPL ETE BLOOD COUNT monocyte,abs olute 0.4 10*3/ uL 0.0-1. 2 normal Not Available [facility] [address] [place] [address], [address], 07/05/2024 15:58:22 07/06/19 25 07/05/2024 COMPL ETE BLOOD COUNT eosinophil,a bsolute 0.2 10*3/ uL 0.0-0. 8 normal Not Available [facility] [address] [place] [address], [address], 07/05/2024 15:58:22 07/06/19 25 07/05/2024 COMPL ETE BLOOD COUNT basophil,abs olute 0.0 10*3/ uL 0.0-0. 3 normal Not Available [facility] [address] [place] [address], [address], 07/05/2024 15:58:22 07/06/19 25 07/05/2024 COMPL ETE BLOOD COUNT % neutrophils 61.5 % 42.0-7 8.0 normal Not Available [facility] [address] [place] [address], [address], 07/05/2024 15:58:22 07/06/19 25 07/05/2024 COMPL ETE BLOOD COUNT % lymphocytes 24.4 % 11.0-4 7.0 normal Not Available [facility] [address] [place] [address], [address], 07/05/2024 15:58:22 07/06/19 25 07/05/2024 COMPL ETE BLOOD COUNT % monocytes 8.4 % 0.0-11 .0 normal Not Available [facility] [address] [place] [address], [address], 07/05/2024 15:58:22 07/06/19 25 07/05/2024 COMPL ETE BLOOD COUNT % eosinophils 4.8 % 0.0-7. 0 normal Not Available [facility] [address] [place] [address], [address], 07/05/2024 15:58:22 07/06/19 25 07/05/2024 COMPL ETE BLOOD COUNT % basophils 0.9 % 0.0-3. 0 normal Not Available [facility] [address] [place] [address], [address], 07/05/2024 15:58:22 07/06/19 25 07/05/2024 COMPL ETE BLOOD COUNT nucleated red cells 0.0 % 0.0-0. 9 normal Not Available [facility] [address] [place] [address], [address], 07/05/2024 15:58:22 07/06/19 25 07/05/2024 COMPL ETE BLOOD COUNT nucleated RBCs, absolute 0.00 10*3/ uL not estab. normal Not Available [facility] [address] [place] [address], [address], 07/05/2024 15:58:22 07/06/19 25 07/05/2024 ESR, AUTOM ATED ESR, automated 25 mm 0-19 high Not Available [facility] [address] [place] [address], [address], 07/05/2024 19:21:33 07/06/19 25 07/05/2024 urina lysis panel , auto Unknown Analyte Clean Catch Not Available [address], [place], [address], 07/05/2024 10:34:52 07/06/19 25 07/05/2024 urina lysis panel , auto Unknown Analyte Yellow Not Available [address], [place], [address], 07/05/2024 10:34:52 07/06/19 25 07/05/2024 urina lysis panel , auto Unknown Analyte Clear Not Available [address], [place], [address], 07/05/2024 10:34:52 07/06/19 25 07/05/2024 urina lysis panel , auto Unknown Analyte 1.010 Not Available [address], [place], [address], 07/05/2024 10:34:52 07/06/19 25 07/05/2024 urina lysis panel , auto Unknown Analyte 7.0 Not Available [address], [place], [address], 07/05/2024 10:34:52 07/06/19 25 07/05/2024 urina lysis panel , auto Unknown Analyte Negati ve Not Available [address], [place], [address], 07/05/2024 10:34:52 07/06/19 25 07/05/2024 urina lysis panel , auto Unknown Analyte Negati ve Not Available [address], [place], [address], 07/05/2024 10:34:52 07/06/19 25 07/05/2024 urina lysis panel , auto Unknown Analyte Negati ve Not Available [address], [place], [address], 07/05/2024 10:34:52 07/06/19 25 07/05/2024 urina lysis panel , auto Unknown Analyte Normal Not Available [address], [place], [address], 07/05/2024 10:34:52 07/06/19 25 07/05/2024 urina lysis panel , auto Unknown Analyte Negati ve Not Available [address], [place], [address], 07/05/2024 10:34:52 07/06/19 25 07/05/2024 urina lysis panel , auto Unknown Analyte Normal Not Available [address] , [place], [address], 07/05/2024 10:34:52 07/06/19 25 07/05/2024 urina lysis panel , auto Unknown Analyte Negati ve Not Available [address] , [place], [address], 07/05/2024 10:34:52 07/06/19 25 07/05/2024 urina lysis panel , auto Unknown Analyte Negati ve Not Available [address] , [place], [address], 07/05/2024 10:34:52 07/06/19 25 07/05/2024 CT, chest + abdom en + pelvi s, w/o contr ast [address] [place] [address] Patien t Name: SOLEDAD Gray Patien t [...] -appea ring 2.2 cm cyst from the recreation leader ior left kidney . Gallbl adder is [...] Roberto Jurado MD on 025 12:16 PM [email or web address] [facility] [address] , [place], [address], 07/05/2024 15:07:57 07/17/19 25 07/15/2024 elect cyndi nava am No observ ation record ed. [facility] [address] [place], [address], 07/19/2024 07:59:43 Result Notes Documentation Provider Name and Address Organization Details Recorded Time Ct, Chest + Abdomen + Pelvis, W/o Contrast : [facility] [address] [place] [address] Patient Name: SOLEDAD GOLD Patient : 1955 [...] diverticulum. Interpreted By: Roberto Jurado MD [email or web address] 07/[facility] 15:07:57 Problems Name Problem SNOMED Code Status Onset Date Resolution Date Notes Provider Name and Address Organization Details Recorded Time History of coronary artery bypass grafting 020166090 Active [address] [facility] 4 09:22:49 Type 1 diabetes mellitus 74992525 Active 2020 DPN EVANGELINA HOUSTON DO [address] [place], [address] , [facility] 3 19:18:56 Erosive osteoarth rosis [id number] Active 2020 hydroxych loroquine , cymbalta f/w Rheum EVANGELINA HOUSTON DO [address], [place], [address] [place] [address] , [facility] 3 10:34:29 Coronary arteriosc lerosis 87835572 Active 2020 s/p CABG, Stenting C 08/18/2020 EVANGELINA HOUSTON DO [address] [place], [address] , [facility] 2 10:07:28 Hypothyro idism 43433198 Active [address] [facility] 4 09:22:49 Dyspnea on exertion 34404779 Active 2020 JASON BURGOS PA-C [address] [place], [address] , [facility] 1 12:35:15 Secondary gout 745319908 Active 2020 EVANGELINA HOUSTON DO [address] [place], [address] , [facility] 2 10:07:28 Hyperpara thyroidis m due to renal insuffici ency 17671326 Active 2020 NM parathyro id normal EVANGELINA ROSEMARIE, DO [address] [place], [address] , [facility] 3 20:47:44 Calcium pyrophosp hate depositio n disease 507691402 Active 2020 EVANGELINA ROSEMARIE, DO [address] [place], [address] , [facility] 2 10:07:28 Supraspin atus tear 506614482 Active 2020 R, full thickness MRI 07/2020 EVANGELINA HOUSTON, DO [address] [place], [address] , [facility] 1 16:39:26 Lumbar spondylol isthesis 91094710245 9102 Active 2020 f/w Dr Edgardo HOUSTON, DO [address] [place], [address] , [facility] 2 10:07:28 History of calculus of kidney 252639528 Active 2020 EVANGELINA HOUSTON, DO [address] [place], [address] , [facility] 2 10:07:28 Degenerat griffin disorder of macula 352498684 Active 2020 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 EVANGELINA HOUSTON, DO [address] [place], [address] , [facility] 2 10:07:28 Esophagea l dysphagia 68172853 Active 2020 EGD 01/2021, dilated, recc 3y f/u EVANGELINA HOUSTON, DO [address] [place], [address] , [facility] 2 10:09:09 Minimal cognitive impairmen t 844248994 Active 2021 EVANGELINAANA HOUSTON, DO [facility] [place], [address] , [facility] 2 10:09:05 Obstructi ve sleep apnea syndrome 04607144 Active 2021 [place] [address] [place] [address], [address] , [facility] 2 10:09:55 Chronic diastolic heart failure 956136701 Active 2021 EVANGELINAANA HOUSTON DO [address] [place] [address], [address] , [facility] 2 18:48:59 Chronic kidney disease stage 3A 545038096 Active 2022 EVANGELINA ROSEMARIE, DO [address] [place] [address], [address] , [facility] 3 10:20:26 Obesity 447376234 Active [address] [facility] 4 09:22:49 Bronchiec tasis 86547072 Active 2022 EVANGELINA TOSCANOON [address], [address] , [facility] 3 11:01:46 Fecal incontine nce with fecal urgency 91076400592 9102 Active 2023 KP LIANG MD [address] [place] [address], [address] , [facility] 4 15:03:28 Atheroscl erosis of aorta 65926669 Active Not Available [facility] 4 10:12:08 Acquired thrombocy topenia 17113386 Active Not Available [facility] 4 10:12:26 Hypertens griffin disorder 97203503 Active 2023 EVANGELINA HOUSTON DO [address] [place] [address] [place], [address] , [facility] 4 10:24:41 Sensorine ural hearing loss of bilateral ears 244423637 Active 2024 f/w [facility] EVANGELINA TOSCANOON, DO [address] [place], [address] , [facility] 16:04:46 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 If you do not have internet access, please call to notify the sender and confirm that the information will be destroyed. Thank you for your attention and cooperation. [ID:[id number]] Patient Soledad Gold (68yo, M) #[id number] 1955 Patient Demographics: Address [address] [place] [phone] Work Phone Encounter Notes: Encounter Reason/Date hands [...] in05/21/2024 02:50 pm Wt: 191 lbs With rzwgdfp5905/21/2024 02:52 pm BMI: 28. 02:52 pm BP: [...] joint was injected with .05 cc of wifapyztzz22 mg/ml, and Lidocaine. The injection was completed [...] patient will return as needed.Methylprednisolone 80 mg/mLMedication [facility]#:[id number] Lot#[id number] Exp: 02/06/2025Lidocaine 1%Lot [id number] 09/07/2024[facility] [phone] Assessment and Plan1. Erosive osteoarthrosis-maintain hydrOXYchloroQUINE 200 mg tablet 2 tablets every dayVoltaren Gel to bilateral handswith more severe oa deformities in the hands, wrists, with ulnar deviation and severe bone spurring with erosive findings in the hands, feet and kneeshas severe oa in the spine with multi level disc bulge and sees Dr. Floyd have him maintain the hydroxychloroquine 200 mg twice uyoxaA64.4: Erosive (osteo)arthritis gabapentin 800 mg tablet - Take 1 tablet(s) 3 times a day by oral route. Qty: (270) tablet Refills: 1 Pharmacy: [facility] (NOW [facility]) hydroxychloroquine 200 mg tablet - Take 2 tablet(s) every day by oral route. Qty: (180) tablet Refills: 1 Pharmacy: [facility] ([facility] 2. Tailor's bunion of right foot-with severe bone pain, stiffness; deformityno need for injections jpckpL79.621: Bunionette of right foot 3. Calcium pyrophosphate deposition disease-per kwcrsV63.80: Other specified crystal arthropathies, unspecified site colchicine 0.6 mg tablet - Take 1 tablet(s) twice a day by oral route. Qty: (180) tablet Refills: 1 Pharmacy: [facility] ([facility]) 4. Gout-long history of gout as well as pseudogoutwill have him maintain allopurinol 300 mg ocdlaV95.9: Gout, unspecified allopurinol 300 mg tablet - Take 1 tablet(s) every day by oral route. Qty: (90) tablet Refills: 1 Pharmacy: [facility] ([facility]) 5. Fibromyalgia-chronic myofascial painlikely secondary to the erosive kyacvrkhbrxavsL72.7: Fibromyalgia duloxetine 60 mg capsule,delayed release - Take 1 capsule(s) twice a day by oral route. Qty: (180) capsule Refills: 1 Pharmacy: [facility] ([facility]) 6. Pain of bilateral hands-Sees Frandy Aminraz h/o ulnar deviationhistory of injections would like to discuss further todaywith injections provided into ia joints in mireille hands zudigI28.641: Pain in right hand M79.642: Pain in left hand 7. 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 Body mass index 30+ - xrbkxlhF21.31: Body mass index [BMI] 31.0-31.9, adult Body Mass Index: Care Instructions-LC - Handout: Body Mass Index: Care Instructions-LC Return to Office XAVIER ISABEL MD for RECHECK at [facility] on 05/23/2024 at 11:15 AM EVANGELINA HOUSTON DO for RECHECK at [facility] on 07/23/2024 at 11:30 AM NAVA SPEAR APRN for RHEUM RECHECK at RHEUMATOLOGY on 09/25/2024 at 01:30 PM MARY CARTWRIGHT PA-C for NEUROLOGY RECHECK at NEUROLOGY [facility] on 10/11/2024 at 10:00 AM RHEUM_INFUSION for RECLAST at RHEUMATOLOGY on 10/23/2024 at 09:30 AM GABRIELLA GAFFNEY MD for RECHECK at CARDIOLOGY [facility] on 11/22/2024 at 11:30 AM JOSE ANDERSON MD for DERMATOLOGY VISIT at DERMATOLOGY [facility] on 01/29/2025 at 10:00 AM to see [...] EVERY DAY -MUST MAKE APPOINTMENT FOR FURTHER ORBFJPJ57/18/24 renewed GABRIELLA GAFFNEY MD colchicine 0.6 mg [...] SPEAR APRN EPINEPHrine 0.3 mg/0.3 mL injection, auto-fzhbkwgy05/03/22 filled surescripts finasteride 5 mg tabletTake 1 tablet(s) every day by oral route for 90 days.02/17/24 prescribed APARNA HANEY PA-C fluocinonide 0.05 % topical ointmentAPPLY TWICE A DAY SPARINGLY TO LOWER LEGS WHEN QRDGNWCXI93/25/20 filled surescripts fluticasone propionate 50 mcg/actuation nasal [...] as needed for 7 days.04/06/24 changed EVANGELINA HOUSOTN DO levothyroxine 150 mcg tabletTake 1 tablet(s) every day by oral route. Internal Note:increased dose per 04/04 /27/25 entered Mo Guerra metoprolol succinate ER 25 mg tablet,extended release 24 hrTAKE 1/2 TABLET EVERY DAY11/23/23 prescribed GABRIELLA GAFFNEY MD moxifloxacin 0.5 % eye dropsINSTILL 1 DROP IN RIGHT EYE FOUR TIMES DAILY02/02/22 filled surescripts nitroglycerin 0.4 mg sublingual tabletPlace 1 tablet(s) as needed by sublingual route.12/20/20 filled surescripts Corona 5 mg-325 mg tabletTake 1 tablet(s) 3 times a day by oral route. Internal Note:DR Hamilton, in pain nkycnuobji90/19/24 entered Mary Brownford NovoLOG Flexpen U-100 Insulin aspart 100 unit/mL (3 mL) subcutaneousinject 6 untis before meals plus SSI of 1u:50 > 150 max daily 08hrfen79/07/23 prescribed KRISTINA KISER APRN ondansetron HCL 4 [...] 04/11/2024) Vaccine Type Date Amt. Route Site [facility] Lot # Mfr. Exp. 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 07/18/24 COVID-19 mRNA ages 12 and up 11/24/23 01/26/24 Mary Johnson COVID-19, mRNA, LNP-S, PF, 50 mcg/0.5 mL 01/24/23 0.5 mL Intramuscular Deltoid, Left [id number] [employer]. 05/05/23 COVID-19 mRNA ages 12 and up 11/25/2022 01/24/23 Madyson Blair COVID-19, mRNA, LNP-S, PF, 30 mcg/0.3 mL dose ([facility]) 11/11/20 0.3 mL Intramuscular [id number] [employer] 01/07/21 COVID-19 vaccine, vector-nr, rS-ChAdOx1, PF, 0.5 mL ([employer]) 05/09/20 COVID-19, mRNA, LNP-S, PF, 30 mcg/0.3 mL dose ([facility]) 05/09/20 0.3 mL Intramuscular [id number] [employer] 08/07/20 COVID-19 vaccine, vector-nr, rS-ChAdOx1, PF, 0.5 mL ([employer]) 04/14/20 COVID-19, mRNA, LNP-S, PF, 30 mcg/0.3 mL dose ([facility]) 04/14/20 0.3 mL Intramuscular [id number] [employer] 07/27/20 Diphtheria, Tetanus, Pertussis Tdap 04/26/19 0.5 mL Intramuscular [id number] [employer] 04/25/21 Influenza influenza, high dose seasonal 01/26/24 0.5 mL Intramuscular Deltoid, Left [id number] Sanofi Pasteur 08/06/24 Inactivated Influenza 09/12/2020 01/26/24 [facility], high-dose, quadrivalent 12/01/22 0.7 mL Intramuscular Deltoid, Left [id number] Sanofi Pasteur 08/07/23 Inactivated Influenza 09/12/2020 12/01/22 Madyson Harms influenza, high-dose, quadrivalent 12/21/21 0.7 mL Intramuscular Deltoid, Left [id number] San[employer]i Paste[employer] 08/06/22 Inactivated Influenza 09/12/2020 12/21/21 Madyson Harms influenza, high-dose, quadrivalent 12/19/20 0.7 mL Intramuscular Deltoid, Left [id number] CA092WQ Sanofi Pasteur 08/06/21 Inactivated Influenza 09/12/2020 12/19/20 Madyson Harms Influenza vaccine, quadrivalent, adjuvanted 12/07/19 0.5 mL [id number] [employer] 08/06/20 influenza, seasonal, intradermal, preservative free 11/10/18 0.5 mL Intramuscular BW162PH Sanofi Pasteur 08/07/19 influenza, seasonal, intradermal, preservative free 12/05/17 0.5 mL Intramuscular AR996VX Sanofi Pasteur 08/06/18 Respiratory Syncytial Virus RSV, recombinant, protein subunit RSVpreF, adjuvant reconstituted, 0.5 mL, PF 01/24/23 0.5 mL Intramuscular Deltoid, Right [id number] CE9C9 [facility] 08/12/24 RSV (Respiratory Syncytial Virus) 11/25/2022 01/24/23 Madyson Pinto Zoster zoster recombinant 09/15/21 0.5 mL Intramuscular 9K2MA [employer] 10/31/22 zoster recombinant 07/15/21 0.5 mL Intramuscular XM22G [employer] 10/07/22 pneumovax at 63 Electronically Signed by: NAVA SPEAR APRN, TOOTH CUTTER CONTACT WHEEL Daija [facility] 05/22/2024 09:35:00 Urology Note : [place] [address] [address] [facility] [address]VSXYLJD, Van ALAN (id #[id number], : 1955) [place] [address] [place] [address] Encounter Summary - Progress Note Date Printed: [...] received this fax in error, please visit [email or web address] to notify the sender and confirm that the information will be destroyed. If you do not have internet access, please call to notify the sender and confirm that the information will be destroyed. Thank you for your attention and cooperation. [ID:[id number]] Patient Soledad Gold (68yo, M) #[id number] 1955 Patient Demographics: Address [address] [place] [phone] Work Phone Encounter Notes: Encounter Reason/Date fu 05/23/2024 - 11:15AM - [facility] History of Present Qwlukno23-vzqb-szv male presents for a follow up evaluation [...] abdominal pain, no nausea, and no vomiting. [id number] 11:41 Ht: 5 ft 9 in Wt: 180 lbs BMI: 26.6 Results/Interpretations URINALYSIS PANEL, AUTO UA Panel Auto Result Reference Range Source Clean Catch Color Yellow Clarity Clear Specific [place] 1.015 1.003 - 1.030 pH 5.0 5.0 [...] care pathway. 1.Benign prostatic hyperplasia with urinary casvqkbfvsoT08.1: Benign prostatic hyperplasia with lower urinary tract symptoms N13.8: Other obstructive and reflux uropathy URINALYSIS PANEL, AUTO - Specimen source: Urine LEARNING ABOUT HEALTHY WEIGHT 2.HrrtaorgL05.1: Nocturia URINALYSIS PANEL, AUTO UA Panel Auto Result Reference Range Source Clean Catch Color Yellow Clarity Clear Specific [place] 1.015 1.003 - 1.030 pH 5.0 5.0 - 8.0 Leukocytes Negative Negative Nitrite Negative Negative Protein Negative Negative Glucose >1000 mg/dL Normal Ketones Negative Negative Urobilinogen Normal Normal Bilirubin Negative Negative Blood Negative Negative Return to Office EVANGELINA HOUSTON DO for RECHECK at [facility] on 07/23/2024 at 11:30 AM NAVA SPEAR APRN for RHEUM RECHECK at RHEUMATOLOGY on 09/25/2024 at 01:30 PM MARY CARTWRIGHT PA-C for NEUROLOGY RECHECK at NEUROLOGY 1207 on 10/11/2024 at 10:00 AM RHEUM_INFUSION for RECLAST at RHEUMATOLOGY on 10/23/2024 at 09:30 AM GABRIELLA GAFFNEY MD for RECHECK at CARDIOLOGY [facility] on 11/22/2024 at 11:30 AM XAVIER ISABEL MD for RECHECK at [facility] on 11/29/2024 at 01:15 PM JOSE ANDERSON MD for DERMATOLOGY VISIT at DERMATOLOGY [facility] on 01/29/2025 at 10:00 AM to see KP LIANG MD at [facility] on or around 03/30/2032 Patient Medical History: [...] EVERY DAY -MUST MAKE APPOINTMENT FOR FURTHER YFMQDZW84/18/24 renewed GABRIELLA GAFFNEY MD colchicine 0.6 mg [...] SPEAR APRN EPINEPHrine 0.3 mg/0.3 mL injection, auto-ksrdjacn74/03/22 filled surescripts finasteride 5 mg tabletTake 1 tablet(s) every day by oral route for 90 days.02/17/24 prescribed APARNA HANEY PA-C fluocinonide 0.05 % topical ointmentAPPLY TWICE A DAY SPARINGLY TO LOWER LEGS WHEN SSZYAEHOK26/25/20 filled surescripts fluticasone propionate 50 mcg/actuation nasal [...] oral route. Internal Note:increased dose per 04/04 ougtssnpz12/27/25 entered Mo Guerra metoprolol succinate ER 25 mg tablet,extended release 24 hrTAKE 1/2 TABLET EVERY DAY11/23/23 prescribed GABRIELLA GAFFNEY MD moxifloxacin 0.5 % eye dropsINSTILL 1 DROP IN RIGHT EYE FOUR TIMES DAILY02/02/22 filled surescripts nitroglycerin 0.4 mg sublingual tabletPlace 1 tablet(s) as needed by sublingual route.12/20/20 filled surescripts Corona 5 mg-325 mg tabletTake 1 tablet(s) 3 times a day by oral route. Internal Note:DR Hamilton, in pain hceedtzgcs79/19/24 entered Mary Brownford NovoLOG Flexpen U-100 Insulin aspart 100 unit/mL (3 mL) subcutaneousinject 6 untis before meals plus SSI of 1u:50 > 150 max daily 28xtvxb36/07/23 prescribed KRISTINA KISER APRN ondansetron HCL 4 [...] next infusion (#2) 10/23/24 @ 0930 - [facility] 10 - M81. administered NAVA SPEAR APRN [...] twice a day by oral route.10/26/22 entered [facility] Family HistoryReviewed Family History Mother - Blood [...] Vaccines Vaccine Type Date Amt. Route Site [facility] Lot # Mfr. Exp. 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 07/18/24 COVID-19 mRNA ages 12 and up 11/24/23 01/26/24 Mary Johnson COVID-19, mRNA, LNP-S, PF, 50 mcg/0.5 mL 01/24/23 0.5 mL Intramuscular Deltoid, Left [id number] [employer]. 05/05/23 COVID-19 mRNA ages 12 and up 11/25/2022 01/24/23 Madyson Pinto COVID-19, mRNA, LNP-S, PF, 30 mcg/0.3 mL dose ([facility]) 11/11/20 0.3 mL Intramuscular [id number] [employer] 01/07/21 COVID-19 vaccine, vector-nr, rS-ChAdOx1, PF, 0.5 mL (AstraZeneca) 05/09/20 COVID-19, mRNA, LNP-S, PF, 30 mcg/0.3 mL dose ([facility]) 05/09/20 0.3 mL Intramuscular [id number] Pfizer[employer] Inc 08/07/20 COVID-19 vaccine, vector-nr, rS-ChAdOx1, PF, 0.5 mL (AstraZeneyefactive) 04/14/20 COVID-19, mRNA, LNP-S, PF, 30 mcg/0.3 mL dose ([facility]) 04/14/20 0.3 mL Intramuscular GL6335 Pfizer, Inc 07/27/20 Diphtheria, Tetanus, Pertussis Tdap 04/26/19 0.5 mL Intramuscular Q6188YX GlaxoSmithKline 04/25/21 Influenza influenza, high dose seasonal 01/26/24 0.5 mL Intramuscular Deltoid, Left [id number] Sanofi Pasteur 08/06/24 Inactivated Influenza 09/12/2020 01/26/24 Mary [place] influenza, high-dose, quadrivalent 12/01/22 0.7 mL Intramuscular Deltoid, Left [id number] Sanofi Pasteur 08/07/23 Inactivated Influenza 09/12/2020 12/01/22 Madyson Harms influenza, high-dose, quadrivalent 12/21/21 0.7 mL Intramuscular Deltoid, Left [id number] TG433ZR Sanofi Pasteur 08/06/22 Inactivated Influenza 09/12/2020 12/21/21 Madyson Harms influenza, high-dose, quadrivalent 12/19/20 0.7 mL Intramuscular Deltoid, Left [id number] Sanofi Pasteur 08/06/21 Inactivated Influenza 09/12/2020 12/19/20 Madyson Harms Influenza vaccine, quadrivalent, adjuvanted 12/07/19 0.5 mL [id number] [employer] 08/06/20 influenza, seasonal, intradermal, preservative free 11/10/18 0.5 mL Intramuscular BV594RM Sanofi Pasteur 08/07/19 influenza, seasonal, intradermal, preservative free 10/29/18 0.5 mL Intramuscular SM751IX Sanofi Pasteur 08/06/18 Respiratory Syncytial Virus RSV, recombinant, protein subunit RSVpreF, adjuvant reconstituted, 0.5 mL, PF 01/24/23 0.5 mL Intramuscular Deltoid, Right [id number] CE9C9 [facility] 08/12/24 RSV (Respiratory Syncytial Virus) 11/25/2022 01/24/23 Madyson Harms Zoster zoster recombinant 09/15/21 0.5 mL Intramuscular 9K2MA [facility] 10/31/22 zoster recombinant 07/15/21 0.5 mL Intramuscular XM22G [facility] 10/07/22 pneumovax at 63 Electronically Signed by: XAVIER ISABEL MD Daija thompson [facility] 06/06/2024 12:46:37 Procedures Surgical History Date Name Laterality Status Provider Name and Address Organization Details Recorded Time 07/24/19 25 TCM completed [facility] 07/23/2024 10:04:38 05/22/19 25 Injection Joint/Bursa, Small, w/o US completed NAVA SPEAR APRN [address] [place], [address], [place] [facility] 05/21/2024 15:08:03 04/12/19 25 TCM completed [facility] 04/05/2024 13:12:55 02/16/19 25 Post Void Residual; Ultrasound completed Elizabeth Muñoz [facility] 02/17/2024 10:05:41 02/06/20 24 Injection Joint/Bursa, Small, w/o US completed NAVA SPEAR APRN [address] [place], [address], [place] [facility] 02/06/2024 15:20:44 01/30/20 24 Destruction Premalignant Lesion(s) completed Renuka Sears [facility] 01/30/2024 10:19:17 01/17/20 24 Injection Joint/Bursa, Small, w/o US completed NAVA SPEAR APRN [address] [place], [address], [facility] 01/17/2024 13:32:56 10/21/19 24 Reclast Infusion completed Milton Zee [facility] 10/21/2023 12:29:17 09/21/19 24 TCM completed Sol Gann [facility] 09/17/2023 09:12:16 06/09/19 24 TCM completed Mo Guerra [facility] 06/02/2023 14:11:12 01/26/20 23 Destruction BN Lesions completed Lalita Coelho [facility] 01/25/2023 09:47:09 01/06/20 23 Spirometry completed Ester Juanis [facility] 01/05/2023 09:10:09 11/30/19 23 Injection Joint/Bursa, Small, w/o US completed NAVA SPEAR, LAKESHIA [address] [place], [address], [facility] 11/29/2022 10:01:36 11/06/19 23 Airway Resistance completed Ester Juanis [facility] 11/05/2022 08:15:12 11/06/19 23 Diffusion Capacity completed Ester Juanis [facility] 11/05/2022 08:15:10 11/06/19 23 Lung Volumes, Plethysmography completed Ester Juanis [facility] 11/05/2022 08:15:13 11/06/19 23 Spirometry completed Ester Juanis [facility] 11/05/2022 08:17:05 10/27/19 23 TCM completed Mo Guerra [facility] 10/26/2022 09:18:08 07/09/19 23 Stress Test - Nuclear Lexiscan completed GABRIELLA GAFFNEY MD [address] [place], [address], [facility] 07/08/2022 13:15:11 05/01/19 23 TCM completed JELANI VENEGAS PA-C [address] [place], [address], [facility] 04/29/2022 11:47:19 04/23/19 23 EKG completed GABRIELLA GAFFNEY MD [address] [place], [address], [facility] 04/22/2022 13:37:25 04/16/19 23 Injection Joint/Bursa, Small, w/o US completed NAVA SPEAR FOAM GUN OPERATOR [address] [place], [address], [facility] 04/15/2022 09:43:06 04/16/19 23 Injection Trigger Finger completed NAVA SPEAR FOAM GUN OPERATOR [address] [place], [address], [facility] 04/15/2022 09:43:33 03/30/19 23 colonoscopy completed Amita Crawford [facility] 03/31/2022 10:12:24 01/26/20 22 Destruction Premalignant Lesion(s) completed Lalita Coelho [facility] 01/25/2022 10:30:08 01/26/20 22 Shave Lesion; face, ear, eyelid, nose, lip, muc memb completed JOSE ANDERSON MD [address] [place], [address], [facility] 01/26/2022 17:32:59 12/22/19 22 TCM completed Mo Guerra [facility] 12/10/2021 14:48:20 08/18/19 22 Injection Joint/Bursa, Small, w/o US completed NAVA SPEAR APRN [address] [place], [address], [facility] 08/17/2021 08:38:09 06/24/19 22 EKG completed JASON BURGOS PA-C [address] [place], [address], [facility] 06/23/2021 11:14:58 06/04/19 22 arthroscopic debridement of knee joint completed Kun Jose [facility] 06/17/2021 14:29:32 11/08/19 21 Shave Lesion; trunk, arm, leg completed JOSE ANDERSON MD [address] [place] [address], [phone], [facility] 11/11/2020 17:50:29 11/08/19 21 Destruction Premalignant Lesion(s) completed Lalita Coelho [facility] 11/07/2020 13:50:19 11/04/19 21 Op Note completed TRISH MAYNARD MD [address] [place] [address], [phone], [facility] 11/03/2020 09:48:35 08/19/19 21 catheterization of left heart completed Marybel Hart [facility] 09/01/2020 15:41:19 07/09/19 21 Stress Test - Nuclear Lexiscan completed JOHANA BARNEY MD [address] [place] [address], [phone], [facility] 07/08/2020 15:17:35 06/26/19 21 Endoscopy Nasal; Diagnostic completed CINDY LABOY MD [address] [place] [address], [phone], [facility] 06/25/2020 16:17:59 06/24/19 21 EKG completed JASON BURGOS PA-C [address] [place] [address], [phone], [facility] 06/23/2020 12:34:26 02/07/19 18 Stent Placement completed EVANGELINA HOUSTON DO [address] [place] [address], [address], [facility] 07/01/2020 08:01:28 02/07/19 00 CABG completed Madyson Pinto [facility] 06/19/2020 10:53:23 repair of hip completed Madyson Pinto [facility] 06/19/2020 10:54:31 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 Procedure Notes None recorded. Medical Equipment None Reported. Allergies Allergen ID Allergen Name Allergen Category Reaction Reaction Severity Criticality Documentation Date Start Date Code Code System Note Provider Name and Address Organization Details Recorded Time 234676 iodine medicatio n Not available Not available Not available 06/19/2020 5933 RxNorm Madyson Pinto [facility] 10:45:39 292422 adhesive tape environme nt,medica tion Not available Not available Not available 06/19/2020 18547 UNK Madyson Pinto [facility] 10:45:44 Medications Name Sig Start Date [...] tamsulosi n 0.4 mg capsule Take 2 capsule( s) every day by oral route for 90 [...] completed Not Available Not Available Not Available Corona 10 mg-325 mg tablet Take 1 tablet [...] next infusion (#2) 10/23/24 @ 0930 - [facility] 10 - M81.0 Not Available Not Available [...] Last Updated DateTime 175.26 cm 28.2 kg/m2 25576.1 4 g 81 /min 95 % 95 % 122/62 mm[Hg] Marguerite Trotter [facility] 14:55:31 Date Recorded Body height Body mass index (BMI) Body weight Provider Name and Address Organization Details Last Updated DateTime 05/23/2024 175.26 cm 26.6 kg/m2 74889.63 g Evelin Sharpet [facility] 05/23/2024 11:41:16 Date Recorded Oxygen saturation Oxygen saturation in Arterial blood by Pulse oximetry Provider Name and Address Organization Details Last Updated DateTime 06/18/2024 93 % 93 % FERNANDA CRUZ PA-C [address] [place], [address], [facility] 06/18/2024 13:40:44 Date Recorded Body height Body temperature Heart rate Systolic And Diastolic Provider Name and Address Organization Details Last Updated DateTime 06/18/2024 175.26 cm 98 [degF] 83 /min 117/70 mm[Hg] Keyla Queen [facility] 06/18/2024 13:31:49 Date Recorded Body height Body mass index (BMI) Body weight Body temperature Heart rate Systolic And Diastolic Provider Name and Address Organization Details Last Updated DateTime 05/29/202 5 175.26 cm 25.7 kg/m2 58533.0 7 g 97.8 [degF] 85 /min 136/80 mm[Hg] Brianne Alcantarp [facility] 5 10:42:48 Date Recorded Body height Body mass index (BMI) Body weight Heart rate Respiratory rate Oxygen saturation Oxygen saturation in Arterial blood by Pulse oximetry Systolic And Diastolic Provider Name and Address Organization Details Last Updated DateTime 5 175.26 cm 26.6 kg/m2 63601.6 3 g 70 /min 18 /min 94 % 94 % 126/58 mm[Hg] Madyson Pinto [facility] 5 11:23:50 Social History Question Answer Notes LastModified by Organizat ion Details LastModified Time Tobacco Smoking Status Former Smoker Susan [email or web address], [facility] 10/23/2020 08:53:41 What Is Your Level Of Caffeine Consumption? Moderate [email or web address] Information not available 06/19/2020 What Type Of Diet Are You Following? REGULAR Information not available 06/19/2020 Education 2 Year College [email or web address] Information not available 06/19/2020 When Did You Quit Smoking? 16+yearssince [email or web address] Information not available 07/15/2022 Live Alone Or With Others? With Others Information not available 06/19/2020 Marital Status [email or web address] Informatio n not available 06/19/2020 What Was The Date Of Your Most Recent Tobacco Screening? 05/23/2024 [email or web address] Information not available 05/23/2024 How Many Children Do You Have? 5 [email or web address] Information not available 06/19/2020 What Is Your Relationship Status? [email or web address] Information not available 10/03/2020 Are You Sexually Active? No [email or web address] Information not available 06/19/2020 At What Age Did You Start Smoking Tobacco? 18 Information not available 11/05/2022 How Much Tobacco Do You Smoke? No [email or web address] Information not available 07/17/2020 Has Tobacco Cessation Counseling Been Provided? No [email or web address] Information not available 10/03/2020 How Many Years Have You Smoked Tobacco? 0 [email or web address] Information not available 07/17/2020 Sex: Male Functional Status Question Answer Note LastModified by Organizat ion Details LastModified Time Do you use any illicit or recreational drugs? No [email or web address] Information not available 10/03/2020 Do you or have you ever used any other forms of tobacco or nicotine? No [email or web address] Information not available 10/03/2020 What is your level of alcohol consumption? None [email or web address] Information not available 06/19/2020 Do you or have you ever used smokeless tobacco? Never used smokeless tobacco [email or web address] Information not available 07/17/2020 Are you currently employed? No [email or web address] Information not available 06/30/2023 Are you able to care for yourself? 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 Never used electronic cigarettes [email or web address] Information not available 07/17/2020 What is your exercise level? None Information not available 06/19/2020 Mental Status None recorded. Family History Relationship Description Onset Age of this Age Resolved Age Notes LastModified by Organization Details LastModified Time Mother Blood coagulation disorder [email or web address] Not available 2020 11:46:13 Mother Myocardial infarction [email or web address] Not available 06/19 11:46:44 Mother Cerebrovascu lar accident [email or web address] Not available 11:46:56 Mother Disorder of thyroid gland Not available 2020 11:47:03 Mother Complication of anesthesia [email or web address] Not available 02/05 13:08:57 Mother Heart disease [email or web address] Not available 2021 13:09:17 Mother Hypertensive disorder [email or web address] Not available 2021 13:09:28 Mother Diabetes mellitus [email or web address] Not available 2021 13:09:45 Brother Malignant melanoma [email or web address] Not available 2020 11:46:32 Brother Myocardial infarction [email or web address] Not available 06/19 11:46:48 Brother Disorder of [...] Transfusion Y Emphysema N Lung Disease Y COPD N Depression N Hypothyroidism Y Pneumonia Y Breast Problem N Difficulty Swallowing Y Anesthesia Complications N Meniere's disease N Anxiety Disorder Y Muscle, Joint, or Bone Problems Y Vision or Eye Problems Y Arthritis Y Polyps N Infertility N Blood Clot N Acid Reflux (GERD) Y Cancer N Varicosities N Stroke N Endometriosis N Bladder or Kidney Problems Y High Cholesterol Y Liver Disease N Rheumatoid Arthritis N Fibromyalgia N Headaches Y Kidney Disease Y Allergies/Hayfever Y Heart Problems [...] quadrivalent, PF 1 completed Madyson Pinto [facility] 12/19/2020 10:31:45 Influenza, high-dose, quadrivalent, PF 2 completed EVANGELINA HOUSTON DO [address] [place], [address], [facility] 12/21/2021 14:25:14 Influenza, high-dose, quadrivalent, PF 3 completed EVANGELINA HOUSTON DO [address] [place], [address], [facility] 12/01/2022 15:39:31 COVID-19 vaccine, vector-nr, rS-ChAdOx1, PF, 0.5 mL 1 completed Not Available [facility] 03/08/2023 14:48:10 COVID-19 vaccine, vector-nr, rS-ChAdOx1, PF, 0.5 mL 1 completed Not Available [facility] 03/08/2023 14:48:10 COVID-19, mRNA, LNP-S, PF, 50 mcg/0.5 mL 3 completed EVANGELINA HOUSTON DO [address] [place], [address], [facility] 01/24/2023 09:42:50 RSV, recombinant, protein subunit RSVpreF, adjuvant reconstituted, 0.5 mL, PF 3 completed EVANGELINA HOUSTON DO [address] [place], [address], [facility] 01/24/2023 09:42:50 COVID-19, mRNA, LNP-S, PF, 30 mcg/0.3 mL dose 1 completed Sabrina Curry [facility] 04/30/2022 12:55:14 Influenza, high-dose, trivalent, PF 4 completed EVANGELINA HOUSTON DO [address] [place], [address], [facility] 01/26/2024 10:51:52 COVID-19, mRNA, LNP-S, PF, 50 mcg/0.5 mL 4 [place] [address] [place] [address], [address], [facility] 01/26/2024 10:51:52 zoster recombinant 2 [facility] 12:55:13 zoster recombinant 2 [facility] 04/30/[facility]22 12:55:14 Influenza, adjuvanted, quadrivalent, PF 0 completed Sabrina Critchley [facility] 04/30/2022 12:55:14 COVID-19, mRNA, LNP-S, PF, 30 mcg/0.3 mL dose 1 completed Sabrina Critchley [facility] 04/30/2022 12:55:14 COVID-19, mRNA, LNP-S, PF, 30 mcg/0.3 mL dose [facility] 04/30/2022 12:55:14 Tdap 0 completed [facility] 04/30/2022 12:55:14 influenza, seasonal, intradermal, preservative free 9 completed [facility] 04/30/2022 12:55:14 influenza, seasonal, intradermal, preservative free 8 completed [facility] 04/30/2022 12:55:14 Past Encounters Encounter ID Performer Location Encounter Start Date Encounter Closed Date Diagnosis/Indication Diagnosis SNOMED-CT Code Diagnosis ICD10 Code Diagnosis Note [id number] EVANGELINA HOUSTON, [facility] [address] [place] [address] 06/19/2020 10:41:30 06/19/2020 13:08:43 Coronary arteriosclerosis 95488655 I25.10 s/p 5 vessel cabg 2000. Stenting x1 ~2016, x3 in 2018 Stable of late Erosive osteoarthrosis 421440535 M15.4 On plaquenil several years now with some slowing of erosive changes. Worse in hands/feet . Type 1 esme betes mellitus 19966433 E10.22 w/ diabetic nephropath y and retinopath y Most recent a1c 6.6 > 6.7 by report Continue current regimen and glucose monitoring History of coronary artery bypass grafting 036298758 Z95.1 as above Chronic ki dney disease stage 3 527030098 N18.30 Serous dawood tis media of left ear 0296075664 136956 H65.92 Cont flonase. Will send augmentin bid x7d. If no improvemen t or worsening symptoms to call or RTC. Hypothyroidism 60496362 E03.9 stable, reports most recent testing normal. Cont synthroid [id number] JASON BURGOS PA-C CARDIOLOG Y [address] [place],[address] [place] [address] 06/23/2020 09:59:12 06/23/2020 14:22:57 Dyspnea on exertion 90309493 R06.09 EKG reviewed. Findings discussed with the patient. No acute abnormalit ies noted. Vitals are stable and exam is unremarkab le. We'll request records from Dr. Lind cardiology in [facility] . schedule a Lexiscan Myoview to investigat e symptoms. Coronary arteriosclerosis 42498019 I25.10 On appropriat e medical management History of coronary artery bypass grafting 400612107 Z95.1 s/p CABG 2001 p CABG PCI [id number] EVANGELINA HOUSTON, DO [facility] [address] [place] [address] 06/23/2020 09:59:45 06/23/2020 15:27:05 Recurrent falls 740852353 R29.6 Suspect diabetic neuropathy contribute s to his falls although his most recent fall seems to be more mechanical in nature. With recurrence and frequent injury from his falls would recommend gait/james ce training. Would also recommend ENT evaluation with hearing changes and tinnitus. Dizziness 287695297 R42 as above Rib pain 857237361 R07.8 1 Low suspicion for fracture but pt requests imaging. Pain of wrist region 566 97918 M25.531 Follow-up with orthopedic s [id number] CINDY LABOY MD ENT SB [address] [place] [address] 06/25/2020 15:12:53 06/27/2020 16:01:28 Dizziness 266474205 R42 Does not appear to be peripheral vestibular in nature. This is likely multifacto rial from peripheral neuropathy and orthostati c hypotensio n of which his systolic blood pressure dropped 20 mmHg upon testing today. Agree with vestibular rehabilita tion which has already been arranged Chronic rhinitis 9186269 6 J31.0 Has a history of allergic rhinitis and did immunother apy for years without much benefit. Nasal endoscopy today was overall normal other than partial turbinecto my by another surgeon. CT sinus and follow-up after [id number] CINDY LABOY MD ENT SB [address] [place] [address] 07/22/2020 14:29:52 07/28/2020 09:38:53 Recurrent acute sinusitis 995289554 J01.[address] reviewed. No findings consistent [...] drug Allergic r hinitis caused by pollen 56320970 J30.1 [id number] JOHANA BARNEY MD [facility] [address] [place] [address] DR,[address] [place] [address] 07/08/2020 09:26:16 07/08/2020 15:38:18 Dyspnea on exertion 28951786 R06.09 Coronary arteriosclerosis 86987560 I25.10 [id number] NAVA SPEAR APRN RHEUMATOL OGY [address] [place] [address] 07/17/2020 09:42:50 07/17/2020 11:10:48 Body mass index 30+ - obesity 327966959 Z68.31 Pain of mu ltiple joints 21346429 M25.50 chronic and recurring multiple joint pain [...] tablet 2 times a day Erosive osteoarthrosis 626505487 M15.4 per xraysStart diclofenac 1 % topical [...] a day Calcium py rophosphate deposition disease 558581545 M11.80 per xrays Gout 04602037 M10.9 long history of gout as well as pseudogout will have him maintain allopurino l 100 mg daily Chronic low back pain 27 6679308 M54.5 Pain of bi lateral hands 5630513041 3011331 M79.641 M79.642 Muscle weakness 98562917 M62.81 [id number] JASON BURGOS PA-C CARDIOLOG Y [address] ,[address] [place] [address] 08/12/2020 08:13:22 08/12/2020 10:30:50 Abnormal results of cardiovascular function studies 634195942 R94.30 results reviewed with the patient. Will schedule cardiac catheteriz ation in light of anticipate d back surgery and persistent symptoms of exertional dyspnea Coronary arteriosclerosis 76231432 I25.10 continued exertional dyspnea despite increasing metoprolol [...] continue aspirin and Plavix, metoprolol and lisinopril [id number] ROSARIO PARRA MD ENDOCRINO LOG[facility] [address] [place] [address] 08/15/2020 13:20:01 08/15/2020 15:18:37 Multiple complications due to type 1 diabetes mellitus 786586765 E10.8 A1c in the office today of [...] ia due to type 1 diabetes mellitus 5505772225 9108 E10.649 Hypoglycem ia symptom recognitio n with patient Peripheral neuropathy due to type 1 diabetes mellitus 8292710058 9104 E10.40 10 g monofilame nt testing his bilateral diminished in the office today Skin atrophic changes of peripheral diabetic neuropathy Foot care discussed with patient Continue to follow with podiatry Dr. Chinchilla in [place] Hypothyroidism 88788346 E03.9 Appears a clinically euthyroidT SH of 2.45 Continue current levothyrox ine therapy 125 g every a.m. Patient verbalized understand ing and agreed with the above mentioned plan of care. [id number] EVANGELINA HOUSTON, DO [facility] [address] [place] [address] 09/18/2020 09:53:27 09/18/2020 12:26:23 Coronary arteriosclerosis 98250166 I25.10 s/p 5 vessel cabg 2000. Stenting x1 ~2016, x3 in 2018 Heart catheteriz ation 08/18/2020 revealed severe CAD involving the left anterior descending , diagonal and obtuse marginal arteries.P atent SV graftsLVEF 55%Continu ing medical management . Upcoming cardiology f/u Type 1 esme betes mellitus 22946167 E10.22 w/ diabetic nephropath y and retinopath y Most recent a1c 7.0 in August 2020Follow ing with endocrinol tahir, Dr Parra Continue current regimen and glucose monitoring History of calculus of kidney 719018002 Z87.442 Passed stone 10d ago, no gross hematuria. Now urinating normally and pain free.Hx of several stones, all cleared spontaneou sly, previously followed with Dr Rowland in [place], [place] History of actinic keratosis 4633687791 104 Z87.2 Hx of [place] treated in [place] . No hx SCC/BCC/me lanoma.Req uests dermatolgy referral for follow up Snoring 36006674 R06.83 almost certainly has sleep apnea, recommend evaluation and treatment Carpal jayne anila syndrome 97951345 G56.03 States he would not be interested immediatel y in surgery but has significan t pain and numbness in hands which is multifacto ral. Has tried and failed nocturnal braces. Requests hand surgery evaluation . Would also potentiall y need further evaluation for cervical myelopathy [id number] TRISH MAYNARD MD ORTHOPEDI CS [address] [place] [address] 09/26/2020 08:33:53 09/26/2020 13:09:49 Arthritis of hand 443733518 M13.841 M13.842 Diffuse arthritic changes throughout the hand including severe changes within the bilateral long greater than index finger DIP joints with resultant clinical deformitie s. Osteoarthr osis of the carpometacarpal joint of the thumb 25686847 M18.11 M18.12 Severe erosive right thumb Eaton stage III CMC joint arthritis and moderate left thumb Eaton stage II/III CMC joint arthritis Carpal jayne anila syndrome 50501307 G56.02 G56.01 EMG/NCV (07/10/20) demonstrat ed severe bilateral tunnel syndrome and moderate bilateral ulnar neuropathi es at or near the wrist. 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 [id number] JASON BURGOS PA-C CARDIOLOG Y [address] ,[address] [place] [address] 10/01/2020 09:40:22 10/01/2020 11:02:09 Coronary arteriosclerosis 11170095 I25.10 recent cardiac catheteriz ation studies reviewed. Patient is reassured. On appropriat e medical management . For now will continue dual antiplatel et therapy due to [place] CAD. Okay to withhold aspirin and Plavix 10 days prior to upcoming surgeries. Resume one day after surgery. He demonstrat es acceptable surgical risk from cardiac standpoint . [id number] XAVIER ISABEL MD [address] ,[address] [place] [address] 10/03/2020 13:48:15 10/16/2020 08:32:21 Kidney stone 64602815 N20.0 Renal colic 1231765 N23 [id number] NAVA SPEAR APRN RHEUMATOL OGY [address] [place] [address] 10/16/2020 10:31:02 10/16/2020 14:00:03 Pain of multiple joints 13152948 M25.50 chronic and recurring multiple joint pain [...] a day Calcium py rophosphate deposition disease 384058058 M11.80 per xrays Erosive osteoarthrosis 618481420 M15.4 per xraysStart diclofenac 1 % topical [...] 1 tablet 2 times a day Gout 75485968 M10.9 long history of gout as well as pseudogout will have him maintain allopurino l 100 mg daily Body mass index 30+ - obesity 764412786 Z68.31 Chronic low back pain 27 4532968 M54.5 with severe degenerati on of the l3, l4 and l5/s1 vertebraew ith decreased disc and neural openings Pain of bi lateral hands 4562107078 5466198 M79.[address] Deversseve re oa and CTSsurgica l interventi on soon Muscle weakness 83173136 M62.81 normal ck and mag [id number] MO REIS PA-C NEUROSURG [facility] [address] [place] [address] 10/23/2020 08:37:44 10/23/2020 10:19:59 Lumbar spondylolisthesis 0397920314 91093 M43.16 Patient is a 64-year-ol d male [...] had a lumbar MRI without contrast from [facility] from 07/31[facility]20. He brought the disc with him. Showed mild spondyloli sthesis of L4 over L5. Showed severe arthritic changes throughout the lumbar spine. Did not show any significan t foraminal or central canal stenosis at any level. Cervical radiculopathy 05491178 M54.12 Also reports some right-side d neck [...] patient if he see anything concerning . [id number] TRISH MAYNARD MD SURGERY SCHEDULE [address] [place] [address] 11/03/2020 06:19:34 11/03/2020 06:21:05 [id number] JOSE ANDERSON MD [facility]ER[facility]O [facility] [address] [place] [address] 11/07/2020 13:28:25 11/07/2020 14:02:23 Neoplasm of uncertain behavior of skin 30918580 D48.5 Left lower knee has a 1 inch oval pink dermal thickening - non tender - ? biopsy in the past - Will send for records - [place] Left medial knee - Education, thenshave removaland base destroyed with electrodes sication. Actinic keratosis L57.0 LN x 3 Edema of l ower extremity 197869028 R60.0 lower legs - Discussed elevation Stasis dermatitis 328403 05 I87.2 lower legs and ankles - will start Triamcinol one cream [id number] ROSARIO PARRA MD ENDOCRINO LOGY [address] [place] [address] 11/11/2020 09:51:58 11/12/2020 15:33:57 Multiple complications due to type 1 diabetes mellitus 987764727 E10.8 A1c in the office today of [...] LDL of 68 on rosuvastat in therapy [id number] CITLALI SIMPSON PA-C ORTHOPEDI CS [facility] [address] [address] 11/18/2020 11:02:57 11/18/2020 11:27:50 Carpal tunnel syndrome 04080787 G56.01 EMG/NCV (07/10/20) demonstrat ed severe bilateral tunnel syndrome and moderate bilateral ulnar neuropathi es at or near the wrist. s/p Left cubital tunnel release in-situ; Left endoscopic carpal tunnel release (DOS: 11/03/20) Cubital tu nnel syndrome 26107015 G56.21 EMG/NCV (07/10/20) disease demonstrat ed severe bilateral tunnel syndrome and moderate bilateral ulnar neuropathi es at or near the wrist. s/p Left cubital tunnel release in-situ; Left endoscopic carpal tunnel release (DOS: 11/03/20) Arthritis of hand 718863 005 M13.841 M13.842 Diffuse arthritic changes throughout the hand including severe changes within the bilateral long greater than index finger DIP joints with resultant clinical deformitie s. Osteoarthr osis of the carpometacarpal joint of the thumb 19075071 M18.11 M18.12 Severe erosive right thumb Eaton stage III CMC joint arthritis and moderate left thumb Eaton stage II/III CMC joint arthritis [id number] JASON BURGOS PA-C CARDIOLOG Y [facility] [address] [facility] ,[address] [place] [address] 12/16/2020 12:54:59 12/17/2020 08:17:01 Coronary arteriosclerosis 79686929 I25.10 recent cardiac catheteriz ation studies reviewed. Patient is reassured. On appropriat e medical management . For now will continue dual antiplatel et therapy due to [place] CAD. Okay to withhold aspirin and Plavix 10 days prior to upcoming surgeries. Resume one day after surgery. He demonstrat es acceptable surgical risk from cardiac standpoint . [id number] TRISH MAYNARD MD ORTHOPEDI CS [facility] [address] [place] [address] 12/16/2020 15:00:24 12/16/2020 16:55:00 Carpal tunnel syndrome 00277470 G56.01 EMG/NCV (07/10/20) demonstrat ed severe bilateral tunnel syndrome and moderate bilateral ulnar neuropathi es at or near the wrist. Previously s/p Left cubital tunnel release in-situ; Left endoscopic carpal tunnel release (DOS: 11/03/20) Cubital tu nnel syndrome 80369003 G56.21 EMG/NCV (07/10/20) disease demonstrat ed severe bilateral tunnel syndrome and moderate bilateral ulnar neuropathi es at or near the wrist. Previously s/p Left cubital tunnel release in-situ; Left endoscopic carpal tunnel release (DOS: 11/03/20) Arthritis of hand 365469 005 M13.841 M13.842 Diffuse arthritic changes throughout the hand including severe changes within the bilateral long greater than index finger DIP joints with resultant clinical deformitie s. Osteoarthr osis of the carpometacarpal joint of the thumb 16757739 M18.11 M18.12 Severe erosive right thumb Eaton stage III CMC joint arthritis and moderate left thumb Eaton stage II/III CMC joint arthritis Postoperative care 77134 9007 Z48.89 6 weeks s/p Left cubital tunnel release in-situ; Left endoscopic carpal tunnel release (DOS: 11/03/20) [id number] EVANGELINA HOUSTON, [address] [place] [address] 12/19/2020 09:40:03 12/19/2020 10:57:47 Coronary arteriosclerosis 78395720 I25.10 s/p 5 vessel cabg 2000. Stenting x1 ~2016, x3 in 2018 Heart catheteriz ation 08/18/2020 revealed severe CAD involving the left anterior descending , diagonal and obtuse marginal arteries.P atent SV graftsLVEF 55%Continu ing medical management and cardiology f/u Type 1 esme betes mellitus 11506820 E10.22 w/ diabetic nephropath y and retinopath y Most recent a1c 6.6Followi ng with endocrinol ogy, Dr Parra Continue current regimen and glucose monitoring Adult heal th examination [id number] Z00.00 Patient presented to office today for [...] follow up Calcium py rophosphate deposition disease 835183838 M11.80 on hydroxychl oroquineco nt rheum f/u Chronic ki dney disease stage 3 170797423 N18.30 Stable. Referred 06/2020 to nephrology . No records yet received from neph associates . Hypothyroidism 24346625 E03.9 stable, Cont synthroid Administra tion of influenza vaccine 53681186 Z23 Dysphagia 86755565 R13.1 0 Recommend GI evaluation /EGD Poor short -term memory 372377039 R41.3 MMSE 30/30. Will check b12/tsh. Patient requests neurology referral. Minimal cognitive impairment . Specialize d medical examination 33897699 Z01.89 Screening for malignant neoplasm of prostate 577342246 Z12.5 [id number] HILARIA ANGEL PA-C PULMONARY [address] [facility], [address] [place], [place] [address] 12/24/2020 15:21:40 12/25/2020 08:42:41 Snoring 99621000 R06.83 Patient will be scheduled for a sleep study to evaluate for MICAELA. We discussed MICAELA and CPAP in detail. We discussed the importance of weight loss and the treatment of MICAELA. I will call patient with sleep study result. [id number] KP LIANG MD GASTRO SB [address] [facility], [address] [place], [place] [address] 01/06/2021 14:21:27 01/07/2021 07:16:53 Esophageal dysphagia 19459002 R13.19 At risk for Barretts or cancer. 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 [id number] HILARIA ANGEL PA-C SLEEP CENTER SB [address] [facility], [address] [place] [address] 01/09/2021 13:43:11 01/09/2021 13:43:27 [id number] NAVA SPEAR APRN RHEUMATOL OGY SB [address] [place] [address] 1 01/15/2021 10:33:41 01/15/2021 12:51:09 Calcium pyrophosphate deposition disease 881740282 M11.80 per xrays Erosive osteoarthrosis 648961286 M15.4 per xraysmaint ain diclofenac 1 % topical gel 4 g 4 times a daymaintai n hydrOXYchl oroQUINE 200 mg tablet 2 tablets every dayChange DULoxetine 60 mg capsule,de layed release from TAKE 2 CAPSULES BY MOUTH DAILY to 1 capsule 2 times a daymaintai n tiZANidine 4 mg tablet 1 tablet 2 times a day Gout 21568529 M10.9 long history of gout as well as pseudogout will have him maintain allopurino l 100 mg daily Chronic low back pain 27 8510723 M54.50 with severe degenerati on of the l3, l4 and l5/s1 vertebraew ith decreased disc and neural openingscu rrently taking stronger pain medication and is going to have rfi done Pain of bi lateral hands 0762155924 7186791 M79.[address] 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 CPAP treatment is recommende d. Patient agrees to start CPAP. This will be ordered. Patient will call office to schedule follow up after obtaining CPAP. Health risks including cardiac risks of untreated MICAELA have been discussed. [id number] CHAVA TROY MD NEUROLOGY SB CLOSED [address] [place] [address] 1 03/10/2021 10:23:15 03/10/2021 11:48:19 Minimal cognitive impairment 670620922 G31.84 [id number] EVANGELINA HOUSTON, DO FAMILY MEDICINE [address] [address] 04/09/2021 13:04:59 04/09/2021 14:59:07 Chronic sinusitis 53749698 J32.9 Symptoms consistent with maxillary sinusitis, history [...] window of infectivit y but now. Cough 85526371 R05.9 As above [id number] NAVA SPEAR APRN RHEUMATOL OGY SB [address] [place] [address] 04/16/2021 09:07:41 04/16/2021 14:22:01 Erosive osteoarthrosis 216828600 M15.4 per xraysmaint ain diclofenac 1 % [...] refills and Calcium py rophosphate deposition disease 183768442 M11.80 per xrays Gout 49161682 M10.9 long history of gout as well as pseudogout will have him maintain allopurino l 100 mg daily Chronic low back pain 27 0561920 M54.50 with severe degenerati on of the l3, l4 and l5/s1 vertebraew ith decreased disc and neural openingscu rrently taking stronger pain medication and is going to have rfi done Pain of bi lateral hands 7789373471 0384074 M79.[address] Hatfield re oa and CTSsurgica l interventi on soon, had CTS on left but not on the right Muscle weakness 80784904 M62.81 normal ck and mag Body mass index 30+ - obesity 067517144 Z68.31 [id number] ROSARIO PARRA MD ENDOCRINO LOGY SB [address] [place] [address] 05/13/2021 09:49:44 05/21/2021 08:32:37 Multiple complications due to type 1 diabetes mellitus 251756587 E10.65 A1c in the office today of [...] 68 on rosuvastat in therapyDrMiguel Andersen in [place] Hypothyroidism 44934285 E03.9 Appears a clinically euthyroidT SH of 2.7 Continue current levothyrox ine therapy 125 g every a.m. Patient verbalized understand ing and agreed with the above mentioned plan of care. [id number] XAVIER ISABEL MD ROYAL [address] ,[address] [place] [address] 05/13/2021 12:53:00 05/15/2021 22:02:28 Benign prostatic hyperplasia with outflow obstruction 881183009 N40.1 Kidney stone 40804673 N2 0.0 [id number] EVANGELINA HOUSTON, DO FAMILY MEDICINE [address] [place] [address] 05/13/2021 14:05:12 05/13/2021 15:31:25 Cellulitis of lower limb 240538842 L03.119 Patient directed to orthopedic s walk-in for evaluation . Likely needs I&D but depending on extent of involvemen t could conceivabl y need more invasive treatment. Continue clindamyci n. We will request records from [facility] for review Type 1 esme betes mellitus 22767871 E10.22 w/ diabetic nephropath y and retinopath y Most recent a1c 6.8Followi ng with endocrinol Dr Aida haro Continue current regimen and glucose monitoring [id number] JUANY GREENBERG OR[facility]OPEDI CS [facility] CL[facility]ED [address] [address] 05/13/2021 15:02:56 05/13/2021 16:04:40 Cellulitis of left knee 2397662549 2565490 L03.116 Infrapatel lar bursitis of left knee 091779545 M70.52 Abscess of skin and/or subcutaneous tissue 76547992 L02.91 [id number] JOSR PASTOR MD ORTHOPEDI [facility] CLOS[facility] [address] [address] 05/18/2021 09:04:32 05/18/2021 09:58:22 Prepatellar bursitis of left knee 0696388036 76996 M70.42 Mr Gold has had recent recurrence of septic prepatella r bursitis with prior history of symptoms over the past 5 years. I recommend consultati on with infectious disease. [id number] JOSR PASTOR MD ORTHOPEDI [facility] CL[facility] [address] [place] [address] 06/03/2021 09:13:23 06/03/2021 09:42:11 Prepatellar bursitis of left knee 3251487882 84111 M70.42 Mr Gold has had recent recurrence [...] to proceed with surgery as outlined above. [id number] JOSR PASTOR MD SURGERY SCHEDULE [address] [place] [address] 06/09/2021 06:57:25 06/09/2021 06:58:16 Postoperative care 401511389 Z48.89 Postoperative pain 16049 9007 G89.18 [id number] JOSR PASTOR MD ORTHOPEDI [facility] [address] [place] [address] 06/17/2021 14:22:43 06/17/2021 15:07:27 Postoperative care 748079150 Z48.89 Mr Gold has had no worsening symptoms following recent I&D of chronic septic bursitis. I recommend continued protection of the knee from trauma and continued antibiotic treatments per infectious disease. [id number] EVANGELINA HOUSTON, DO [facility]ILY MEDICINE [address] [place] [address] 06/19/2021 10:15:55 06/19/2021 10:57:27 Type 1 diabetes mellitus 40664598 E10.22 w/ diabetic nephropath y and retinopath y Most recent a1c 6.8Followi ng with endocrinol ogluis alfredo, Dr Parra Continue current regimen and glucose monitoring Hypothyroidism 42381415 E03.9 stable, Cont synthroid Chronic ki dney disease stage 3 517469117 N18.30 Stable. Referred 06/2020 to nephrology . No records yet received from neph associates . Obstructiv e sleep apnea syndrome 24867266 G47.33 Still adjusting to CPAP, started ~05/2021.Di scussed his sleep difficulti es and expect that as he adjusts to CPAP use much of this will improve. Could consider adjustment of his trazodone or other medication changes to help with racing thoughts and sleep onset troubles but for now would recommend monitoring . Infection of prepatellar bursa of right knee 6691298553 972293 M71.161 Should finish antibiotic s next Tuesday assuming all continues to go well. Continue follow-up with Drs. Pastor and Krista. Call if any concerns Low blood pressure 47185 003 I95.9 Blood pressure in office is quite low although he is entirely asymptomat ic. Has not eaten or drank much yet this morning. Would encourage he monitor blood pressures at home and call if any concerns. [id number] JASON BURGOS PA-C CARDIOLOG Y [address] ,[address] [place] [address] 06/23/2021 09:18:12 06/23/2021 11:20:42 Overweight 467489118 E66.3 Low blood pressure 81612 003 I95.9 Patient describes symptoms of low [...] daily and then follow-up in 2 weeks. [id number] JOSR PASTOR MD ORTHOPEDI CS [facility] CLOSED [address] [address] 07/08/2021 09:11:44 07/08/2021 09:36:27 Postoperative care 371292091 Z48.89 Mr Gold has had no worsening symptoms following recent I&D of chronic septic bursitis. I recommend continued protection of the knee from trauma and continued antibiotic treatments per infectious disease. [id number] EVANGELINA HOUSTON, DO FAMILY MEDICINE [address] [facility] [place] [address] 07/21/2021 13:20:44 07/21/2021 15:18:50 Type 1 diabetes mellitus 02859502 E10.22 w/ diabetic nephropath y and retinopath yPatient to call back with name of test strips needed for manual glucometer as backup. Insulin pump and sensor now functionin g properly. Most recent a1c 6.8Followi ng with endocrinol ogDr Aida lobato Continue current regimen and glucose monitoring Pneumonia 352545055 J18. 9 Recommend continue doxycyclin e to complete 5 to 7 days therapy. We will send to pharmacy.L LL PNA, rec CXR f/u next week to assess resolution . Chronic ki dney disease stage 3 418817403 N18.30 Baseline creatinine 1.2-1.3 with EGFR ~56Continu e to monitor and follow-up with nephrology Iron defic iency anemia 73637172 D50.9 hx of SHARAN, previously followed with [facility] [place], last colonoscop y around 2018.Recom mend follow-up given significan t drop from baseline [id number] JASON BURGOS PA-C CARDIOLOG Y [address] ,[address] [place] [address] 07/27/2021 08:42:19 07/27/2021 15:18:36 Overweight 414872180 E66.3 Low blood pressure 39563 003 I95.9 Hospital log reviewed. Patient remains hypotensiv e. Will transition off metoprolol titrate onto metoprolol succinate 12.5 mg 1 daily at bedtime. Continue all other same medication s. Labs and x-ray pending. 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 Patient verbalized understand ing and agreed with the above mentioned plan of care. [id number] NAVA SPEAR APRN RHEUMATOL OGY SB [address] [place] [address] 08/17/2021 07:56:06 08/17/2021 16:32:35 Erosive osteoarthrosis 801071025 M15.4 per xraysmaint ain diclofenac 1 % [...] with refills and Bilateral tendinitis of hands 1122409843 3195927 M67.843 with severe deformitie swill provide with injections today in between the right 2nd and 3rd mcps Calcium py rophosphate deposition disease 126341049 M11.80 per xrays [id number] EVANGELINA HOUSTON, DO FAMILY MEDICINE [address] [facility] [address] 09/28/2021 08:12:11 09/28/2021 09:38:05 COVID-19 946588711 U07.1 Discussed natural course of this condition [...] him. Chronic ki dney disease stage 3 204783998 N18.30 Baseline creatinine 1.2-1.3 with EGFR ~56Continu e to monitor and follow-up with nephrology Type 1 esme betes mellitus 81055701 E10.22 w/ diabetic nephropath y and retinopath yPatient to call back with name of test strips needed for manual glucometer as backup. Insulin pump and sensor now functionin g properly. Most recent a1c 6.8Followi ng with endocrinol Dr Aida haro Continue current regimen and glucose monitoring Coronary arteriosclerosis 87319323 I25.10 s/p 5 vessel cabg 2000. Stenting x1 ~2016, x3 in 2018 Heart catheteriz ation 08/18/2020 revealed severe CAD involving the left anterior descending , diagonal and obtuse marginal arteries.P atent SV graftsLVEF 55%Continu ing medical management and cardiology f/u [id number] NAVA SPEAR APRN RHEUMATOL OGY SB [address] [place] [address] 10/15/2021 08:41:17 10/15/2021 10:29:14 Erosive osteoarthrosis 756662222 M15.4 per xraysmaint ain diclofenac 1 % topical gel 4 g 4 times a daymaintai n hydrOXYchl oroQUINE 200 mg tablet 2 tablets every dayChange DULoxetine 60 mg capsule,de layed release from TAKE 2 CAPSULES BY MOUTH DAILY to 1 capsule 2 times a daymaintai n tiZANidine 4 mg tablet 1 tablet 2 times a daywill provide with refills Gout 29641075 M10.9 long history of gout as well as pseudogout will have him maintain allopurino l 100 mg daily Calcium py rophosphate deposition disease 441741084 M11.80 per xrays Chronic low back pain 27 8542206 M54.50 with severe degenerati on of the l3, l4 and l5/s1 vertebraew ith decreased disc and neural openingscu rrently taking stronger pain medication and is going to have rfi donewill provide with 120 mg IM steroid injections Pain of bi lateral hands 1489243200 8260610 M79.[address] Hatfield re oa and CTSsurgica l interventi on soon, had CTS on left but not on the right Muscle weakness 99091055 M62.81 normal ck and mag Body mass index 30+ - obesity 356650302 Z68.31 Bilateral tendinitis of hands 0238363281 1545567 M67.843 with severe deformitie sno need for injections todaymaint ain with hand surgeon [id number] JASON BURGOS PA-C CARDIOLOG Y [place] [address] [place] [address] ,[address] [place] [address] 10/22/2021 13:09:11 10/22/2021 14:35:59 Overweight 229143345 E66.3 Low blood pressure 55111 003 I95.9 Blood pressures improved with medication adjustment s. No other changes today. Encouraged hydration. Continue all same medication s and follow-up in 6 months Coronary arteriosclerosis 32773297 I25.10 recent cardiac catheteriz ation studies reviewed. Patient is reassured. On appropriat e medical management . For now will continue dual antiplatel et therapy due to [place] CAD. Okay to withhold aspirin and Plavix 10 days prior to upcoming surgeries. Resume one day after surgery. He demonstrat es acceptable surgical risk from cardiac standpoint . 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 No evidence to suggest underlying infection. Possible insulin pump malfunctio n. At present, I recommend to call [facility] emergency support For help regarding any technical [...] with the above mentioned plan of care. [id number] EVANGELINA HOUSTON DO FAMILY MEDICINE [address] [place] [address] 11/11/2021 12:57:35 11/11/2021 14:24:04 Diabetic ketoacidosis 038426736 E13.10 Resolved and has had insulin pump replaced. Continue close monitoring Acute nont raumatic kidney injury 3347326353 61751 N17.9 della on CKD, recheck to ensure return to baseline. Continue to keep well-hydra louisa Cough 71315533 R05.9 Ongoing cough may be related to lingering inflammati on but with bibasilar rhonchi recommend repeat chest x-ray to ensure no interval pneumonia. Currently on cefdinir for pharyngiti s but may need changed Post-acute COVID-19 1119 506763 U09.9 Discussed typical course with COVID and that unfortunat mary jo some individual s have lingering symptoms. Discussed option of evaluation by long [facility] clinic if he sees no improvemen t in the future. Closest clinic researchin giuliana this I am aware of is in [place] . Monitor and call if any concerns or new symptoms [id number] XAVIER ISABEL MD [facility] [address] [facility] [place] [address] 11/19/2021 13:20:47 11/24/2021 18:47:35 Benign prostatic hyperplasia with outflow obstruction 854834583 N40.1 Kidney stone 17022240 N2 0.0 [id number] EVANGELINA HOUSTON DO FAMILY MEDICINE [address] [place] [address] 12/21/2021 13:28:02 12/21/2021 14:52:30 Left lower zone pneumonia 679646690 J18.1 Resolved, continue to monitor for new or returning symptoms Post-acute COVID-19 1119 696737 U09.9 Advised that it may take several weeks yet for him to feel 100% back to his baseline but should continue gradual daily improvemen t. Administra tion of influenza vaccine 94499031 Z23 Obstructiv e sleep apnea syndrome 79097876 G47.33 Not currently using CPAP.Discu ssed considerat ion for consultati on with ENT for second opinion and to discuss candidacy for inspire. 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 Chinchilla in [place] [id number] EVANGELINA HOUSTON, DO FAMILY MEDICINE [address] [place] [address] 01/21/2022 09:53:46 01/21/2022 11:13:50 Adult health examination 450081157 Z00.00 Patient presented to office today for their Medicare Annual Wellness Visit.[facility] visit Questionna milton was reviewed and will [...] Not indicated- -AAA screening: [--] Coronary arteriosclerosis 96861814 I25.10 s/p 5 vessel cabg 2001. Stenting x1 ~2016, x3 in 2018 Heart catheteriz ation 08/18/2020 revealed severe CAD involving the left anterior descending , diagonal and obtuse marginal arteries.P atent SV graftsLVEF 55%Continu ing medical management and cardiology f/u Type 1 esme betes mellitus 91736960 E10.22 w/ diabetic nephropath y and retinopath y Most recent a1c 7.0Followi ng with endocrinol Dr Aida haro Continue current regimen and glucose monitoring Calcium py rophosphate deposition disease 318994921 M11.80 on hydroxychl oroquineco nt rheum f/u Chronic ki dney disease stage 3 824229846 N18.30 Stable. Continue to avoid NSAIDs. Continued control of diabetes of paramount importance Hypothyroidism 12692540 E03.9 stable, Cont synthroid Minimal co gnitive impairment 477127603 R41.89 2020 MMSE 30/30.Mini mal cognitive impairment .Eval w/neuro. Declined medication s.Possible contributi on by untreated MICAELA. Obstructiv e sleep apnea syndrome 66314287 G47.33 Not currently using CPAP due to intoleranc e.History of severe MICAELA with AHI January 2021 of 69Discusse d considerat ion for consultati on with ENT for second opinion and to discuss candidacy for inspire. He is now interested in seeing them. Recurrent falls 58151278 2 R29.6 Suspect diabetic neuropathy contribute s to his falls although his most recent fall seems to be more mechanical in nature.Con tinue PT/Gait training. Have also recommend ENT evaluation with hearing changes and tinnitus. [id number] JOSR ALMARAZ MD [place] [facility] [address] [place] [address] 02/05/2022 12:48:57 02/05/2022 14:52:05 Obstructive sleep apnea of adult 9107593468 103 G47.33 01/09/21 home PSG - AHI 69 Deviated nasal septum 12 2419171 J34.2 [id number] JOSE ANDERSON MD DERMATOLO GY [facility] [address] [place] [address] 01/25/2022 09:46:54 01/25/2022 10:36:10 Actinic keratosis 757105710 L57.0 LN x 1 Lentiginosis 299125845 L 81.4 reassuranc e Recommende d Equate Ultra Sunscreen 30+ and sun protecting hats/cloth ing Neoplasm o f uncertain behavior of skin 18599086 D48.5 Left mid cheek - Education, thenshave removaland base destroyed with electrodes sication. [id number] CHAVA TROY MD NEUROLOGY SB CLOSED [address] [place] [address] 03/31/2022 10:00:46 03/31/2022 11:04:21 Minimal cognitive impairment 245903382 G31.84 [id number] KP LIANG MD SURGERY SCHEDULE [address] [place] [address] 03/30/2022 07:19:14 03/30/2022 07:20:01 [id number] ROSARIO PARRA MD ENDOCRINO LOGY SB [address] [place] [address] 04/14/2022 09:01:02 04/14/2022 10:51:13 Hypothyroidism 80253059 E03.9 Appears a clinically euthyroidT SH of 0.7 on 01/21/2022 and normal free T4 same dayContinu e current levothyrox ine therapy 125 g every a.m.Zenyschuyler simon was instructed on the appropriat e method [...] complications due to type 1 diabetes mellitus 260530326 E10.65 A1c in the office today of 6.5 down from 7% down from 7.9Random point-of-c are blood glucose of 122Goal A1c less than 7% Commended patient on achieving and maintainin g goal glycemic controlRec ommendatio ns:Continu e current insulin pump therapy same settings Peripheral neuropathy due to type 1 diabetes mellitus 4975333709 9104 E10.42 10 g monofilame nt testing his bilateral diminished Positive for skin atrophic changes of peripheral diabetic neuropathy Foot care james rowley with patient todayConti rossi to follow with podiatry Dr. Chinchilla in [email or web address] verbalized understand ing and agreed with the above mentioned plan of care. [id number] NAVA [place] [address] [place] [address] 04/15/2022 08:46:39 04/16/2022 14:57:50 Erosive osteoarthrosis 841110643 M15.4 per xraysmaint ain diclofenac 1 % topical gel 1 g 4 times a daymaintai n hydrOXYchl oroQUINE 200 mg tablet 2 tablets every dayChange DULoxetine 60 mg capsule,de layed release from TAKE 2 CAPSULES BY MOUTH DAILY to 1 capsule 2 times a daymaintai n tiZANidine 4 mg tablet 1 tablet 2 times a daywill provide with refillsrec ommend lidocaine Gout 54325276 M10.9 long history of gout as well as pseudogout will have him maintain allopurino l 100 mg daily Calcium py rophosphate deposition disease 906876206 M11.80 per xrays Chronic low back pain 27 6270789 M54.50 with severe degenerati on of the l3, l4 and l5/s1 vertebraew ith decreased disc and neural openingscu rrently taking stronger pain medication and is going to have rfi done Pain of bi lateral hands 9426918641 0858372 M79.[address] Hatfield re oa and CTShad CTS on left but not on the right; currently seeing [facility] for this Body mass index 30+ - obesity 018633739 Z68.31 Bilateral tendinitis of hands 5177215704 7036028 M67.843 with severe deformitie sno need for injections todaymaint ain with hand surgeon as injections have not improved outcome in the past Fibromyalgia 559944545 M 79.7 chronic myofascial painlikely secondary to the erosive osteoarthr itis [id number] GABRIELLA GAFFNEY MD CARDIOLOG Y [address] ,[address] [place] [address] 04/22/2022 12:49:12 04/22/2022 13:52:25 Coronary atherosclerosis 169311351 I25.10 Patient with history of CAD (3v CABG 2000 - SVG-D1, SVG-OM, SVG-RCA, h/o PCI 2016); no new symptoms reported; exam is relatively unchanged from previous visit; continue with current medication s. EKG today - normal sinus rhythm, rate=78, LAD/LAFB, IDe=073 ms, no significan t ST abnormalit ies, non-specif ic T wave abnormalit y. History of hypotension 136431731 Z86.79 Today, BP was 122/68 mmHg. He reports no recent hypotensiv e episodes, but he reports feelings of dizziness occasional ly. If dizziness frequency or severity worsens and/or patient has documented hypotensio n, then I would recommend stopping Metoprolol and Lisinopril . If augmentati on of SBP is warranted, I would recommend starting low dose Midodrine 2.5 mg po tid. [id number] JELANI VENEGAS PA-C [facility] [address] [place] [address] 04/30/2022 12:36:21 04/30/2022 13:24:26 Pneumonia 882674121 J18.9 Resolving he will complete doxycyclin e [...] next week. Note is provided. Coronary atherosclerosis 583055513 I25.10 Patient with history of CAD (3v CABG 2000 - SVG-D1, SVG-OM, SVG-RCA, h/o PCI 2016); EKG with cardiology 2 weeks ago - normal sinus rhythm, rate=78, LAD/LAFB, ZNp=176 ms, no significan t ST abnormalit ies, [...] chest. He expressed understand ing and agreement. [id number] GABRIELLA GAFFNEY MD CARDIOLOG Y [address] [place] [address] 05/03/2022 13:00:20 05/05/2022 04:38:39 Coronary atherosclerosis 808834835 I25.10 Patient with history of CAD (5v CABG 2000 - SVG-D1, SVG-OM, SVG-RCA, and 2 other grafts (unknown locations) , h/o PCI 2016); continue with current medication s for now. Check echocardio gram prior to next visit (re: SOA, FREY, h/o CAD).I will discuss nuclear stress test vs. coronary angiogram at next office visit in 2-3 weeks. Indigestion 435452709 R1 0.13 He reports a 2 month [...] y to evaluate this symptom further. Dizziness 741028180 R42 The etiology of the patient's dizziness/ [...] (if not already seeing Neurologis t). Pneumonia 917356900 J18. 9 Patient with recent ER visit for SOA, FREY, and cough. He was diagnosed with CAP. He is on anti-bioti cs for this issue, and reports that his symptoms are improving. He still reports some SOA, FREY, cough, dizziness, and fatigue. [id number] GABRIELLA GAFFNEY MD CARDIOLOG Y EAST [address] [place] [address] ,[address] [place] [address] 06/10/2022 08:34:09 06/12/2022 04:29:06 Obesity 483719449 E66.9 patient's BMI today was = 31.3 ; recommend weight loss to achieve a BMI of <=25. Coronary atherosclerosis 354397549 I25.10 Patient with history of CAD (5v [...] next office visit in 2-3 weeks. Dyspnea 729371224 R06.00 Dyspnea continues and may be related to a number of factors, including recent pneumonia, deconditio amadou, CAD. With this in mind, I recommend that patient undergo LexiScan nuclear stress test to further evaluate the etiology of his dyspnea. I also recommend that he f/u with his PCP for dyspnea, sinusitis, and cough. Dizziness 303547949 R42 The etiology of the patient's dizziness/ [...] on (if not already seeing Neurologis t). [id number] EVANGELINA HOUSTON, DO [facility] [address] [place] [address] 06/15/2022 11:14:02 06/15/2022 11:59:46 Dyspnea 826198821 R06.00 Follow-up right midlung opacity/PN A treated in April. Advised if chest x-ray is unrevealin g but his symptoms persist CT may be warranted. Complete upcoming cardiac testingWe will follow-up with results Folliculitis 26233003 L7 3.9 Recommend treatment for possible early cellulitis given risk factors for infection including his diabetes. Will treat with Doxy which would also cover for potential bacterial sinusitis although as we discussed it is less likely his upper respirator y symptoms are bacterial in origin.He is to monitor and can continue warm compresses . Call if new or increasing symptoms Sinusitis 65551089 J32.9 As above Dysphagia 09704768 R13.1 0 Discussed need for follow-up with GI if continued difficulti es, patient states he will reach out to them if it persists [id number] GABRIELLA GAFFNEY MD HEART STATION [address] ,[address] [place] [address] 07/08/2022 07:19:37 07/08/2022 15:33:38 [id number] EVANGELINA HOUSTON, [facility] [address] [place] [address] 07/15/2022 08:38:29 07/15/2022 11:10:38 Type 1 diabetes mellitus 40384301 E10.22 w/ diabetic kidney disease and retinopath y Most recent a1c 6.5Followi ng with endocrinol Dr Krissy haro statin Continue current regimen and glucose monitoring Coronary arteriosclerosis 00779266 I25.10 s/p 5 vessel cabg 2000. Stenting x1 ~2016, x3 in 2018Heart catheteriz ation 08/18/2020 revealed severe CAD involving the left anterior descending , diagonal and obtuse marginal arteries.P atent SV graftsLVEF 55% Myoview 07/08/2022 showed small area of ischemia in the inferior basal wall, LVEF 62%Continu ing medical management and active management with cardiology Chronic ki dney disease stage 3A 205970409 N18.31 Stable. Continue to avoid NSAIDs. Continued control of diabetes of paramount importance Obesity 183787095 E66.9 Reviewed importance of healthy diet, lifestyle and exercise changes to achieve healthy weight. Will continue to monitor. Obstructiv e sleep apnea syndrome 78329369 G47.33 Not currently using CPAP due to intoleranc e.History of severe MICAELA with AHI January 2021 of 69Recommen d he follow-up with ENT for sleep endoscopy as previously considered . Advise he should contact their office or call us if he needs assistance arranging follow-up. [id number] GABRIELLA GAFFNEY MD CARDIOLOG Y [address] [place] [address] 07/15/2022 08:37:39 07/15/2022 09:53:39 Coronary atherosclerosis 742386051 I25.10 Patient with history of CAD (5v [...] standpoint . Recommenda tion: RTC 4 months [id number] ROSARIO PARRA MD ENDOCRINO LOGY [address] [place] [address] 07/20/2022 07:27:41 07/20/2022 08:54:17 Hypothyroidism 26045594 E03.9 Appears a clinically euthyroidT SH of [...] neuropathy due to type 1 diabetes mellitus 7569663183 9104 E10.44 10 g monofilame nt testing his bilateral diminished Positive for skin atrophic changes of peripheral diabetic neuropathy Foot care rediscusse d with patient todayConti rossi current Cymbalta therapyCon tinue to follow with podiatry Dr. Chinchilla in [email or web address] verbalized understand ing and agreed with the above mentioned plan of care. Type 1 esme betes mellitus 23492616 E10.8 A1c of 6.7 from 6.5 Random point-of-c are blood glucose of 275 Goal A1c less than 8% Reviewed insulin pump data. No changes made to his insulin pump Hypoglycem ia symptom recognitio n treatment reviewed In the office today he requested to change his infusion set to [employer] XC Tandem from his current infusion set [employer] [id number] EVANGELINA HOUSTON, [facility] [address] [place] [address] 10/05/2022 11:22:31 10/05/2022 13:56:23 Chronic diastolic heart failure 488754069 I50.32 Appears euvolemicC ontinues Lasix 40 mg dailyConti rossi cardiology follow-up Chronic cough 53663773 R 05.3 Pneumonia 407644302 J18. 9 Clinical suspicion for left-sided pneumonia, recommend treatment with doxycyclin e. Imaging for follow-up on previous bibasilar scarring. Left-sided pneumonia 12/2021, right-side d pneumonia 04/2022. 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 Type 1 esme betes mellitus 26144176 E10.8 A1c of 7.3% increased from 6.7 [...] neuropathy due to type 1 diabetes mellitus 1748928857 9104 E10.44 10 g monofilame nt testing his bilateral diminished Positive for skin atrophic changes of peripheral diabetic neuropathy Foot care rediscusse d with patient todayConti nue current Cymbalta therapyCon tinue to follow with podiatry Dr. Chinchilla in [facility] [[email or web address] verbalized understand ing and agreed with the above mentioned plan of care. Long-term current use of insulin 766511176 Z79.4 Insulin pump present 450 851487 Z96.41 [id number] NAVA SPEAR APRN RHEUMATOL OGY [address] [place] [address] 10/13/2022 08:21:32 10/14/2022 04:15:58 Long-term drug therapy 649076168 Z79.899 Calcium py rophosphate deposition disease 904341006 M11.80 per xrays Erosive osteoarthrosis 617602198 M15.4 maintain hydrOXYchl oroQUINE 200 mg tablet [...] twice daily Pain of bi lateral hands 7915557033 5455819 M79.641 M79.642 Sees [facility]opedic [facility] h/o ulnar deviation Gout 03589784 M10.9 long history of gout as well as pseudogout will have him maintain allopurino l 300 mg daily [id number] ELENA DAILY PA-C [facility] [address] [place] [address] 10/14/2022 10:05:05 10/14/2022 10:55:07 Chronic cough 47815354 R05.[address] scan of lungs today, will add pulmonolog y referral and sputum cultures, as patient mentioned h/o MRSA in sputum during a hospitaliz ation last year. Lungs clear on exam, doxy was completed yesterday, will await CTscan results and consider another round of abx if appropriat e. [id number] EVANGELINA HOUSTON, DO FAMILY [address] [place] [address] 10/26/2022 12:15:31 10/26/2022 13:44:22 Type 1 diabetes mellitus 69629501 E10.22 E10.40 E10.65 w/ diabetic kidney disease and retinopath y Most recent a1c 6.5Followi ng with endocrinol [place] alfredo, Dr Krissy Lazo statin Recommend he contact endocrinol [place] alfred[place] to secure sooner appointmen t. Expect previous good control they will wish for him to resume insulin pump. Close blood sugar monitoring to detect pump dysfunctio n remains necessary. Diabetic ketoacidosis [address] episode 11/2021 after similar pump dysfunctio n. Pneumonia 012508014 J18. 9 Complete doxycyclin e course. Has upcoming follow-up scheduled with pulmonolog y for evaluation . [id number] ROSARIO PARRA MD ENDOCRINO LOGY [address] [place] [address] 11/02/2022 10:54:51 11/03/2022 04:50:32 Uncontrolled type 1 diabetes mellitus 276653275 E10.65 A1c is significan tly up to [...] isSchedule an appointmen t with tandem T slim yeimi garcia for reviewing technical aspects of his tandem t:slim.Fol low-up as scheduled [id number] ZEKE HOLLOWAY MD PULMONARY [address] [place] [address] 11/05/2022 07:31:19 11/05/2022 13:32:[address] scan confirms bronchiect asis in [...] in his nebulized medication at that time [id number] NAVA SPEAR APRN RHEUMATOL OGY [address] [place] [address] 11/29/2022 09:05:19 12/01/2022 19:10:55 Erosive osteoarthrosis 170701838 M15.4 maintain hydrOXYchl oroQUINE 200 mg tablet [...] twice daily Calcium py rophosphate deposition disease 743659286 M11.80 per xrays Gout 56395996 M10.9 long history of gout as well as pseudogout will have him maintain allopurino l 300 mg daily Pain of bi lateral hands 2837315201 1748415 M79.641 M79.642 Sees [facility] Orthopedic swith h/o ulnar deviationh istory of injections would like to discuss further todaymey provide with bilateral hand injections today Long-term drug therapy 985361602 Z79.899 [id number] KRISTINA KISER, LAKESHIA ENDOCRINO LOGY [address] [place] [address] 11/29/2022 10:11:44 11/29/2022 11:09:46 Uncontrolled type 1 diabetes mellitus 856591408 E10.65 A1c is 7.2%Random point-of-c are blood [...] he wants to switch to [employer]. .. [id number] EVANGELINA HOUSOTN, DO FAMILY MEDICINE [address] [address] 12/01/2022 14:11:08 12/01/2022 15:04:44 Type 1 diabetes mellitus 83488574 E10.22 E10.40 E10.65 E10.319 w/ hyperglyce maria [...] t with endocrinol ogy. Diabetic ketoacidosis 42 3374594 E13.10 Resolved.E pisodes 11/2021, 10/2022, 11/2022 Administra tion of influenza vaccine 24267805 Z23 Hearing loss 42672545 H9 1.93 Requests referral to ENT for follow-up [id number] GABRIELLA GAFFNEY MD CARDIOLOG Y [address] [place] [address] 12/02/2022 13:22:28 12/07/2022 05:14:51 Obesity 477487695 E66.9 patient's BMI today was = 31.8 ; recommend weight loss for beneficial effects on health. Coronary atherosclerosis 830347445 I25.10 Patient with history of CAD (5v [...] will discuss this with his endocrinol ogist). [id number] EVANGELINA HOUSTON, DO FAMILY MEDICINE [address] [facility] [address] 01/24/2023 08:28:32 01/24/2023 11:51:43 Adult health examination 993462608 Z00.00 Patient presented to office today for [...] screenin01/2023, ordered Type 1 esme betes mellitus 61642952 E10.22 E10.40 E10.65 E10.319 w/ hyperglyce maria eugenia, diabetic kidney disease, diabetic neuropathy and retinopath y Most recent a1c 7.2Followi ng with endocrinol ogy, Dr Krissy Lazo statin Continue close follow-up with endocrinol ogy. Chronic ki dney disease stage 3A 064162466 N18.31 Stable. Continue to avoid NSAIDs. Continued control of diabetes of paramount importance Hypothyroidism 32345235 E03.9 stable, Cont synthroid Minimal co gnitive impairment 162775880 G31.84 2020 MMSE 30/30.Mini mal cognitive impairment .Eval w/neuro, previously on donepezil but stopped. Recommend he resume with which he is in agreement. Discussed possible contributi on by untreated MICAELA and need for treatment. Coronary arteriosclerosis 00731184 I25.10 s/p 5 vessel cabg 2000. Stenting x1 ~2016, x3 in 2018Heart catheteriz ation 08/18/2020 revealed severe CAD involving the left anterior descending , diagonal and obtuse marginal arteries.P atent SV graftsLVEF 55% Myoview 07/08/2022 showed small area of ischemia in the inferior basal wall, LVEF 62%Continu ing medical management and active management with cardiology Hyperparat hyroidism due to renal insufficiency 22949959 N25.81 Continue active management with nephrology Obstructiv e sleep apnea syndrome 22812233 G47.33 Not currently using CPAP due to intoleranc e.History of severe MICAELA with AHI January 2021 of 69Recommen d he follow-up with ENT for sleep endoscopy as previously considered , will refer. At [facility] ed risk for falls 133348001 Z91.81 Steady fall risk score of 9, recommend PT/gait training, patient agreeable Abdominal aortic aneurysm screening 205764527 Z13.6 Screening for malignant neoplasm of prostate 771694062 Z12.5 Active immunization 3387 9002 Z23 Iron defic iency anemia 82795859 D50.9 hx of SHARAN, previously [place] with [facility] [place] [facility] onoscopy without evidence of bleeding 03/2022No longer taking iron, recheck Dysphagia 67638967 R13.1 0 Recommend follow-up with GI, history of esophageal dilation 01/2021, now having increasing difficulti es again including getting choked on pills and having to take medication with applesauce to pass. [id number] ZEKE HOLLOWAY MD PULMONARY [address] [place] [address] 01/05/2023 08:48:36 01/06/2023 08:24:59 Bronchiectasis 43429666 J47.9 Spirometry today is stable showing only mild restrictio nDuoNeb routinely twice daily and then as neededAmox icillin 875 twice daily for a week as needed increased phlegm [id number] KRISTINA KISER, FOAM GUN OPERATOR ENDOCRINO LOGY [address] [place] [address] 01/13/2023 08:31:04 01/13/2023 10:15:23 Uncontrolled type 1 diabetes mellitus 600056147 E10.65 Z79.4 A1c is 6.7% decreased from [...] [employer]. .His warranty is up in April. [id number] JOSE ANDERSON MD DERMATOLO GY EAST [address] [place] [address] 01/25/2023 09:17:02 01/25/2023 10:23:35 Lentiginosis 507256036 L81.4 reassuranc e Recommende d [employer]ate Ultra Sunscreen 30+ and sun protecting hats/cloth ing Inflamed s eborrheic keratosis 319285742 L82.0 Education, then cryodestru ction with liquid nitrogen (LN) x 1 Edema of l ower extremity 354763068 R60.0 lower legs - Discussed elevation Stasis dermatitis 790793 05 I87.2 lower legs and ankles - Discussed velcro compressio n stockingse levateon diureticWi ll send a RX for triamcinol one cream [id number] JOSR ALMARAZ MD ENT [address] [place] [address] 03/03/2023 10:06:27 03/03/2023 13:54:18 Obstructive sleep apnea of adult 6066040311 103 G47.33 Insurance: Medicare-[facility] Physician: Dr. Haddad Date: 01/09/21 (original INSPIRE consult done on 02/05/22)A HI Using 4% Rule: 69.4Centra l/Mixed Percentage : 0BMI: 31.6DISE: pendingHas tried and failed/ret urned/does not wear anymore CPAP due to issues w/ masks (has tried many different masks)won' t stay oninfectiv e Deviated nasal septum 12 2520794 J34.2 Coronary arteriosclerosis 22475120 I25.10 Diabetes mellitus 625756 09 E11.9 [id number] KP LIANG MD GASTRO [address] [place] [address] 03/08/2023 14:45:58 03/08/2023 15:17:27 Esophageal dysphagia 68206949 R13.19 Recurrent symptoms, will benefit from EGD and dilation Fecal inco ntinence with fecal urgency 0315338103 46740 R15.2 Will try symptomati c therapy with colestid only once a day trial [id number] EVANGELINA HOUSTON DO [facility] MEDICINE [address] [place] [address] 04/26/2023 08:40:44 04/26/2023 12:21:57 Closed fracture of greater trochanter of left femur 1842349067 8887023 S72.115D Appointmen t with [facility] for follow-up today. Continue rolling walker use at all times. Continue PT. Diarrhea 59669008 R19.7 Continue workup with GI. Will obtain stool cultures given concern about possible C. difficile exposure. Fortunatel y current symptoms less consistent with C. difficile. Chronic ki dney disease stage 3A 988184147 N18.31 Stable. Continue to avoid NSAIDs. Continued control of diabetes of paramount importance Hypothyroidism 75644352 E03.9 With weight loss need to recheck thyroid hormones. Continue Synthroid with titration as indicated Chronic di astolic heart failure 221013084 I50.32 Appears euvolemicC ontinues Lasix 40 mg dailyConti nue cardiology follow-up Type 1 esme betes mellitus 45731368 E10.22 E10.40 E10.65 E10.319 w/ hyperglyce maria eugenia, diabetic kidney disease, diabetic neuropathy and retinopath y Most recent a1c 7.2Followi ng with endocrinol ogDr Krissy lobato statin Continue close follow-up with endocrinol ogy. Bronchiectasis 44408847 J47.9 Stable, continue active management with pulmonolog y Hyperparat hyroidism due to renal insufficiency 61740241 N25.81 Previous nuclear medicine evaluation of parathyroi d was normal.Hyp erparathyr oidism secondary to CKDContinu e active management with nephrology [id number] EVANGELINA HOUSTON DO [facility]ILY MED[facility]INE [address] [place] [address] 06/09/2023 14:30:28 06/09/2023 15:39:27 Chronic kidney disease stage 3A 076229399 N18.31 Stable. Continue to avoid NSAIDs. Continued control of diabetes of paramount importance Type 1 esme betes mellitus 20595461 E10.22 E10.40 E10.65 E10.319 w/ hyperglyce maria eugenia, diabetic kidney disease, diabetic neuropathy and retinopath y Recent hyperglyce maria eugenia secondary to illness, improving. Random glucose is now less than [address] sts referral to noel tillman with his previous endocrinol ogist in [place] Dr Donna Lazo statin Continue close follow-up with endocrinol ogy. At [facility] risk for aspiration 779980080 Z91.89 As above Pneumonia 876730925 J18. 9 Suspected aspiration pneumonia, he should continue working with speech therapy. Has plans for upcoming EGD and esophageal dilation. Minimal co gnitive impairment 004824515 G31.84 2020 MMSE 30/30.Mini mal cognitive impairment .Eval w/neuro, previously on donepezil but stopped.Di scussed possible contributi on by untreated MICAELA and need for treatment. [id number] HILARIA ANGEL PA-C PULMONARY [address] [place] [address] 06/30/2023 09:44:52 06/30/2023 12:24:38 Bronchiectasis 11352307 J47.9 Patient is currently using DuoNebs once daily. I would increase this to 2 3 times daily. Add Mucinex twice daily. I also recommende d a flutter valve. Bronchiect asis is most likely secondary to chronic aspiration . I did not add any further antibiotic s today. I will order AFB and routine sputum culture at [facility]. He will also need a CT chest without contrast to follow-up on left infiltrate that was noted on previous CT scan. At increas ed risk for aspiration 979698881 Z91.89 Continue current modificati ons of diet. Follow-up with GI. Rheumatoid arthritis 698 61977 M06.9 Follows with Lamont brink. [id number] NAVA SPEAR APRN RHEUMATOL OGY [address] [place] [address] 07/19/2023 13:17:39 07/21/2023 11:29:00 Erosive osteoarthrosis 261024990 M15.4 maintain hydrOXYchl oroQUINE 200 mg tablet [...] twice daily Calcium py rophosphate deposition disease 148671129 M11.80 per xrays Gout 40592062 M10.9 long history of gout as well as pseudogout will have him maintain allopurino l 300 mg daily Pain of bi lateral hands 1899226155 0354988 M79.641 M79.642 Sees [facility] Orthopedic swith h/o ulnar deviationh istory of injections would like to discuss further todaywibelinda see me prn Long-term drug therapy 190630681 Z79.899 Fibromyalgia 672604152 M 79.7 chronic myofascial painlikely secondary to the erosive osteoarthr itis Chronic low back pain 27 7282905 M54.50 with severe degenerati on of the l3, l4 and l5/s1 vertebraew ith decreased disc and neural openingscu rrently taking stronger pain medication and is going to have rfi done Bilateral tendinitis of hands 7396764154 8421075 M67.843 with severe deformitie sno need for injections todaymaint ain with hand surgeon as injections have not improved outcome in the past Body mass index 30+ - obesity 572943440 Z68.31 Pathological fracture 26 9838376 M84.40XA [id number] EVANGELINA HOUSTON, FAMILY MED[facility]INE [address] [place] [address] 08/01/2023 10:37:45 08/01/2023 11:47:28 Chronic kidney disease stage 3A 025802228 N18.31 Stable. Continue to avoid NSAIDs. Continued control of diabetes of paramount importance Hypothyroidism 63354259 E03.9 Continue Synthroid with titration as indicatedC ontinue active management with endocrinol [place] Chronic di astolic heart failure 885536716 I50.32 Appears euvolemicC ontinues Lasix 40 mg dailyConti nue cardiology follow-up Type 1 esme betes mellitus 33799766 E10.22 E10.40 E10.65 E10.319 Z79.4 w/ hyperglyce maria eugenia, diabetic kidney disease, diabetic neuropathy and retinopath y.Long-ter m insulin useMost recent a1c 7.8 % 07/2023Foll owing with endocrinDr Padmini osullivan in [facility] statin Continue close follow-up with endocrinol ogy. Bronchiectasis 68241858 J47.9 Stable, continue active management with pulmonolog y Hyperparat hyroidism due to renal insufficiency 82124134 N25.81 Previous nuclear medicine evaluation of parathyroi [...] d. Call if new or worsening symptoms. [id number] EVANGELINA HOUSTON, DO FAMILY MEDICINE [address] [facility] [address] 09/05/2023 14:04:39 09/05/2023 15:14:27 Mass of pancreas 884397188 K86.89 8 mm hypoattenu ating lesion of the pancreatic tailRecomm end dedicated follow-up imaging to further characteri ze Type 1 esme betes mellitus 08499324 E10.22 E10.40 E10.65 E10.319 Z79.4 w/ hyperglyce maria eugenia, diabetic kidney disease, diabetic neuropathy and retinopath y.Long-ter m insulin useMost recent a1c 7.8 % 07/2023Foll owing with endocrinDr [facility]i [facility] [facility] Continue close follow-up with endocrinol ogy. Hx retinopath y, f/w Dr Weston, continue surveillan ce. Pneumonia [id number] J18. 9 Left lower lobe pneumonia being [...] and will proceed by private vehicle to [facility]. Abdominal pain 72188136 R10.9 Persistent symptoms over the last 3 weeks. Discussed that it is possible the new pancreatic lesion is related however given its small size and hope that this is just benign pancreatic cyst would not expect degree of current symptoms. Given inability to tolerate p.o. and significan t dehydratio n as above he will be proceeding to ED for treatment. [id number] EVANGELINA HOUSTNO, DO FAMILY [address] [place] [address] 09/21/2023 09:13:00 09/21/2023 10:11:13 Mass of pancreas 966322562 K86.89 8 mm hypoattenu ating lesion of the pancreatic tailRecomm end dedicated follow-up imaging to further characteri ze Type 1 esme betes mellitus 25460678 E10.22 E10.40 E10.65 E10.319 Z79.4 E10.3492 w/ hyperglyce maria eugenia, diabetic kidney disease, diabetic neuropathy and retinopath y.Long-ter m insulin useMost recent a1c 7.8 % 07/2023Foll owing with endocrinol ogy, Dr Washington in [facility] [place] Continue close follow-up with endocrinol ogy. Hx retinopath y, f/w Dr Weston, continue surveillan ce. Insomnia 128336511 G47.0 0 Stable, continues trazodone with good effect. Chronic ki dney disease stage 3A 375419604 N18.31 Stable. Continue to avoid NSAIDs. Continued control of diabetes of paramount importance Chronic di astolic heart failure 195741505 I50.32 EuvolemicC ontinues Lasix 40 mg dailyConti nue active management with cardiology Unsteady when walking 22 707204 R26.89 At risk for falls, recommend physical therapy for gait training/s valentinaevelio paz. He would also benefit from hand PT given his significan t erosive osteoarthr osis and need for cane use. Nausea 888358852 R11.0 Much improved. Continue PPI, keep upcoming GI evaluation . [id number] CHAVA TROY MD NEUROLOGY SB CL[address]ED [address] [place] [address] 10/12/2023 09:36:06 10/13/2023 04:04:36 Minimal cognitive impairment 035007344 G31.84 [id number] KP LIANG MD GASTRO SB [address] [place] [address] 10/18/2023 13:35:37 10/18/2023 15:19:46 Esophageal dysphagia 39766352 R13.19 Recurrent symptoms, will benefit from EGD and dilation, will schedule in [facility] now Fecal inco ntinence with fecal urgency [id number] 90494 R15.2 Will try symptomati c therapy with colestid only once a day trial [id number] NAVA SPEAR APRN RHEUMATOL OGY [address] [place] [address] 10/21/2023 09:55:58 10/21/2023 12:32:27 Senile osteoporosis 80966039 M81.0 [id number] GABRIELLA GAFFNEY MD CARDIOLOG Y [address] [place] [address] 11/23/2023 13:01:53 11/23/2023 13:56:56 Coronary atherosclerosis 254730143 I25.10 Patient with history of CAD (5v [...] discuss this with his endocrinol ogist). Obesity 290508671 E66.9 patient's BMI today was = 30.2; recommend weight loss for beneficial effects on health. Essential hypertension 12081896 I10 BP today was = 100/60 mmHg, HR = 74 bpm; continue with current meds. -Lisinopri l 2.5 mg p.o. daily, metoprolol succinate ER 25 mg half tablet p.o. daily. The patient is recommende d to check BPs at home periodical ly & bring BP log to next visit. A low sodium (< 2000 mg/day) diet is also recommende d. [id number] NAVA SPEAR APRN RHEUMATOL OGY [address] [place] [address] 01/17/2024 12:41:42 01/23/2024 07:35:06 Erosive osteoarthrosis 964254127 M15.4 maintain hydrOXYchl oroQUINE 200 mg tablet [...] twice daily Calcium py rophosphate deposition disease 967504246 M11.80 per xrays Gout 48922441 M10.9 long history of gout as well as pseudogout will have him maintain allopurino l 300 mg daily Fibromyalgia 161672753 M 79.7 chronic myofascial painlikely secondary to the erosive osteoarthr itis Pain of bi lateral hands 2846275163 7589981 M79.641 M79.642 Sees [facility] Orthopedic swith h/o ulnar deviationh istory of injections would like to discuss further todaywith injections provided into ia joints in mireille hands today Long-term drug therapy 325797912 Z79.899 Chronic low back pain 27 6308582 M54.50 with severe degenerati on of the l3, l4 and l5/s1 vertebraew ith decreased disc and neural openingscu rrently taking stronger pain medication and is going to have rfi done Body mass index 30+ - obesity 476722041 Z68.31 Pathological fracture 26 0222158 M84.40XA next dexa due 08/26/2025 or after [id number] EVANGELINA HOUSTON, FAMILY MEDICINE [address] [facility] [address] 01/26/2024 09:52:10 01/26/2024 11:00:25 Adult health examination 639377233 Z00.00 Patient presented to office today for their Medicare Annual Wellness Visit.Well [facility] visit Questionna milton was reviewed and [...] no AAA Chronic di astolic heart failure 100799485 I50.32 EuvolemicC ontinues Lasix 40 mg dailyConti nue active management with cardiology Chronic ki dney disease stage 3A 734087575 N18.31 Most recent GFR has improved to 66, recheckSta ble. Continue to avoid NSAIDs. Continued control of diabetes of paramount importance Type 1 esme betes mellitus 38554846 E10.22 E10.40 E10.65 E10.319 Z79.4 E10.3492 w/ hyperglyce maria eugenia, diabetic kidney disease, diabetic neuropathy and retinopath y.Long-ter m insulin useMost recent a1c 7.8 % 07/2023Foll owing with endocrinol ogluis alfredo, Dr Washington in [facility] [place] Continue close follow-up with endocrinol ogy. Hx retinopath y, f/w Dr Weston, continue surveillan ce. Obstructiv e sleep apnea syndrome 10723125 G47.33 Not currently using CPAP due to intoleranc e.History of severe MICAELA with AHI January 2021 of 67Evaluate d with sleep endoscopy and reports he was deemed not a candidate for Inspire.Re commend he reconsider CPAP, he declines. Hypothyroidism 47805251 E03.9 Continue Synthroid with titration as indicatedC ontinue active management with endocrinol tahir [place] Minimal co gnitive impairment 828163718 G31.84 2020 MMSE 30/30.Mini mal cognitive impairment .Eval w/neuro, previously on donepezil but stopped due to diarrhea.D iscussed possible contributi on by untreated MICAELA and need for treatment. Coronary arteriosclerosis 46461785 I25.10 s/p 5 vessel cabg 2000. Stenting x1 ~2016, x3 in 2018Heart catheteriz ation 08/18/2020 revealed severe CAD involving the left anterior descending , diagonal and obtuse marginal arteries.P atent SV graftsLVEF 55% Myoview 07/08/2022 showed small area of ischemia in the inferior basal wall, LVEF 62%Continu ing medical management and active management with cardiology Hyperparat hyroidism due to renal insufficiency 07803278 N25.81 Previous nuclear medicine evaluation of parathyroi d was normal.Hyp erparathyr oidism secondary to CKDContinu e active management with nephrology Screening for malignant neoplasm of prostate 262075235 Z12.5 Administra tion of influenza vaccine 08283280 Z23 Active immunization 3387 9002 Z23 Atheroscle rosis of aorta 42946365 I70.0 Atheroscle rosis of aorta noted on imaging with known CAD history. continue aspirin and statin. Acquired thrombocytopenia 31563864 D69.6 Mild thrombocyt openia on recent blood work. Likely secondary to chronic disease, no bleeding or bruising. Recheck Hypertensive disorder 38 509086 I10 Remains well-contr olled, continue current medication regimen [id number] JOSE ANDERSON MD DERMATOLO GY EAST [address] [place] [address] 01/30/2024 09:15:41 01/30/2024 10:22:11 Lentiginosis 584188841 L81.4 Reassuranc eRecommend ed Equate Ultra Sunscreen 30+ and sun protecting hats/cloth ing Actinic keratosis 891613 [address] x 2 Senile purpura 61250848 D69.2 Reassuranc e [id number] NAVA SPEAR APRN RHEUMATOL OGY [address] [place] [address] 02/06/2024 14:17:00 02/07/2024 13:06:55 Tailor's bunion of right foot 1941713744 079379 M21.621 with severe bone pain, stiffness; deformityw ill provide with an ia joint injection today for pain relief [id number] ELVA KNOWLES CUA, [facility] [address] [place] [address] 02/17/2024 09:11:48 02/17/2024 10:54:52 Benign prostatic hyperplasia with outflow obstruction 547977845 N40.1 PVR of 55 mL suggestive of adequate bladder emptying. [id number] MD ROYAL RAO [facility] [address] [place] [address] 02/29/2024 08:31:58 02/29/2024 11:41:02 Benign prostatic hyperplasia with outflow obstruction 427194610 N40.1 Nocturia 130150566 R35.1 [id number] ELENA DAILY PA-C [facility] [address] [place] [address] 04/11/2024 12:59:31 04/11/2024 14:09:23 Hospital inpatient stay within past 30 days 5527936375 106 Z76.89 DOA: 04/01/24DOD : 04/04/24DX: PneumoniaH ospital records reviewed and discussed with patient. Community acquired pneumonia 646640858 J18.9 Treated inpatient with doxycyclin e and rocephin-i mproved clinically . Recommend re X-ray last week of April, 4 weeks post treatment. He has printed order and will get this in [place]. Type 1 esme betes mellitus 97482933 E10.22 E10.40 E10.65 E10.319 Z79.4 E10.3492 Actively managed by endocrinjacquelin haro in [place]. Recent low blood sugar at 44 a few days ago, no episodes since. He has DexCom7 and is continuing to monitor. 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 Chronic ki dney disease stage 3 733153509 N18.31 GFR was 54 on 01/26/2024 and improved to 74 on 04/04/2024 during recent hospitaliz ation. Bronchiectasis 38012719 J47.9 Actively managed by pulmonolog y. Dementia 78687661 F03.90 Actively managed by neurology, And stable on donepezil. Hypothyroidism 38630434 E03.9 levothyrox ine increased in hospital and he will f/u with endocrinjacquelin haro who is managing end of April. Rheumatoid arthritis 698 09121 M06.9 Actively managed by rheumatwero brink. Insomnia 145628107 G47.0 0 Patient needs refill on trazodone. I also recommend he try tart elizabeth juice 2-4oz 30 minutes before bed to help with sleep. Chronic di astolic heart failure 936157403 I50.32 Actively managed by cardiology and stable on furosemide . No significan t edema on exam today. [id number] NAVA SPEAR APRN RHEUMATJACQUELIN HARO [address] [place] [address] 05/21/2024 14:35:13 05/22/2024 15:37:25 Tailor's bunion of right foot 8543734307 560066 M21.621 with severe bone pain, stiffness; deformityn o need for injections today Erosive osteoarthrosis 728091697 M15.4 maintain hydrOXYchl oroQUINE 200 mg tablet [...] twice daily Calcium py rophosphate deposition disease 020153374 M11.80 per xrays Gout 51323254 M10.9 long history of gout as well as pseudogout will have him maintain allopurino l 300 mg daily Fibromyalgia M 79.7 chronic myofascial painlikely secondary to the erosive osteoarthr itis Pain of bi lateral hands 4283698728 3386546 M79.641 M79.642 Sees [facility] Orthopedic swith h/o ulnar deviationh istory of injections would like to discuss further todaywith injections provided into ia joints in mireille hands today Long-term drug therapy 746692471 Z79.899 Chronic low back pain 27 0070860 M54.50 with severe degenerati on of the l3, l4 and l5/s1 vertebraew ith decreased disc and neural openingscu rrently taking stronger pain medication and is going to have rfi done Pathological fracture 26 1712040 M84.40XA next dexa due 08/26/2025 or after Body mass index 30+ - obesity 029054539 Z68.31 [id number] XAVIER ISABEL MD ROYAL [address] [place] [address] 05/23/2024 11:32:45 05/23/2024 16:10:50 Benign prostatic hyperplasia with outflow obstruction 255128159 N40.1 N13.8 Nocturia 622382725 R35.1 [id number] FERNANDA CRUZ PA-C [facility]ILY [facility] [address] [place] [address] 06/18/2024 13:28:50 06/18/2024 14:23:40 Acute cough 3226939973 71328206 R05.1 has become productive . see tx plan below. O2 sat a bit low at 93%. Acute bact erial bronchitis 787383731 J20.8 B96.89 start doxy and mucinex as directed. promethazi ne DM for cough. he was advised this causes drowsiness . continue neb tx as needed. He declines an oral steroid today. Supportive tx measures discussed. re eval if not improving in 4-5 days or if worsens. [id number] EVANGELINA HOUSTON DO [address] [place] [address] 07/05/2024 10:32:51 07/05/2024 11:53:45 Right flank pain 754271991 R10.9 Right flank pain and history of [...] expresses understand ing with plan Chronic cough 95615657 R 05.3 Right-side d pneumonia 03/2024, now [...] necessary. Chronic ki dney disease stage 3A 452162406 N18.31 Most recent GFR has improved to 74Stable. Continue to avoid NSAIDs. Continued control of diabetes of paramount importance [id number] EVANGELINA HOUSTON DO [address] [place] [address] 07/23/2024 11:13:53 07/23/2024 12:28:26 Chronic diastolic heart failure 189449763 I50.32 EuvolemicC ontinues Lasix 40 mg dailyConti nue active management with cardiology Type 1 esme betes mellitus 82251847 E10.22 E10.40 E10.65 E10.319 Z79.4 E10.3492 w/ hyperglyce maria eugenia, diabetic kidney disease, diabetic neuropathy and retinopath y.Long-ter m insulin useMost recent a1c 7.8 % 07/2023Foll owing with endocrinol tahir, Dr [place] in [facility] [place] Continue close follow-up with endocrinol tahir. Hx retinopath y, f/w Dr Weston, continue surveillan ce. Obstructiv e sleep apnea syndrome 08802560 G47.33 Not currently using CPAP due to intoleranc e.History of severe MICAELA with AHI January 2021 of 67Evaluate d with sleep endoscopy and reports he was deemed not a candidate for Inspire.Re commend he reconsider CPAP, he declines. Hypothyroidism 34480012 E03.9 Continue Synthroid with titration as indicatedC ontinue active management with endocrinol ogy Dr Washington Minimal co gnitive impairment 766913797 G31.84 2020 MMSE 30/30.Mini mal cognitive impairment .Eval w/neuro, previously on donepezil but stopped due to diarrhea.D iscussed possible contributi on by untreated MICAELA and need for treatment. Hypertensive disorder 38 247364 I10 Remains well-contr olled, continue current medication regimen Coronary arteriosclerosis 83620826 I25.10 s/p 5 vessel cabg 2000. Stenting x1 ~2016, x3 in 2018Heart catheteriz ation 08/18/2020 revealed severe CAD involving the left anterior descending , diagonal and obtuse marginal arteries.P atent SV graftsLVEF 55% Myoview 07/08/2022 showed small area of ischemia in the inferior basal wall, LVEF 62%Continu ing medical management and active management with cardiology Hyperparat hyroidism due to renal insufficiency 60267703 N25.81 Previous nuclear medicine evaluation of parathyroi d was normal.Hyp erparathyr oidism secondary to CKDContinu e active management with nephrology Pneumonia 686458757 J18. 9 Multi recurrent pneumonia. Will extend Augmentin course x 5 additional days.,Oliverio mmend follow-up with pulmonolog y, patient and in agreement. Esophageal dysphagia 408 66931 R13.19 Recommend to continue with speech therapy. Honey thickened liquids and intentiona l chewing/ca ution to protect airway. Asthenia 55916125 R53.1 Recommend PT/gait therapy. 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 XAVIER ISABEL MD [address] [place], [address], [facility] 06/06/2024 10:33:24 06/18/2024 text/html Patient presents with [...] had antibiotics recently. FERNANDA CRUZ PA-C [address] [place], [address], [facility] 06/18/2024 14:00:54 07/05/2024 text/html The patient [...] medications, including Flomax and finasteride, and uses Corona for pain, although it has been minimally effective for the current pain. EVANGELINA HOUSTON DO [address] [place], [address], [facility] 07/05/2024 11:12:03 07/23/2024 text/html TCMReported bypatient.Details:admis sekou date: (07/15/24); date of discharge: (07/20/24); discharge provider: (Edgardo Corbett MD); Facility [facility]; diagnosis (#) Recurrent Multifocal pneumonia #) Acute hypoxic respiratory failure #) Bronchiectasis #) Fall other stairs and steps, initial encounter #) Weakness, Debility, Reduced Mobility #) Oropharyngeal dysphagia#) Esophageal stricture); date interactive contact was made: (07/23/24) Current Caregivers:self; family member (, river) [facility] Performed:not medically indicated Reported Medicationsrecent change [...] cardiology regarding heart monitor results) Transferred to [facility] and hospitalized 07/15 through 07/20/2024 for recurrent [...] for strengthening and balance. EVANGELINA HOUSTON DO [address] [place], [address], [facility] 07/23/2024 22:02:11
--- OUTSIDE RECORDS SUMMARY | 2024-08-20 15:28 | XMS_ITS | Clinical Summary ---
Author Organization Healthcare Address [address] [id number] Care Team Providers Care Personal Banking Representative Name Role Phone Ponce Elijah Claudia VASQUES Primary Care Provider [phone] Nancy Trammell LPN Unavailable Unavailabl e Allergies [...] by mouth 3 times a day. Active HYDROcodone-preet taminophen ([place]) 10-325 MG tablet Take 1 tablet by mouth every 6 hours as needed for severe pain. Active hydroxychloroqu ine (Plaquenil) 200 MG tablet Take 1 tablet [...] Take 1 tablet by mouth daily. Active aspirin-acetami nophen-caffeine (Excedrin Migraine) 250-250-65 MG tablet Take 1 tablet by mouth every 6 hours as needed for headaches. Active Insulin Glargine, 2 Unit Dial, (Toujeo Max SoloStar) 300 UNIT/ML injection pen Inject 10 Units under the skin nightly. 6 mL 3 5 Active amoxicillin-cla vulanate (Augmentin) 875-125 MG tabletIndicatio ns:Multifocal pneumonia Take 1 tablet by mouth every 12 hours for 5 doses. 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 -Afebrile, 92% 2L NC, BP trending soft in ED -WBC 9.39, ANC 7.37 -VBG 7.45/44/51 -Procalcitonin >4 -Nasopharyngeal PCR negative -Strep Pneumo and Legionella Urine Ag negative PLAN -admit to at [place] on PCU with telemetry, continuous pulse ox [...] both ears 0 02/17/2024 Overview (07/15/2024): f/w ENT Chronic arthritis due to and not [...] 12:43 AM EDT): -follows with Nephrology at [facility] -Cr 1.03, EGFR 78.1 -> unknown baseline Cr PLAN -UA pending -avoid NSAIDS/nephrotoxins, renally dose meds based on EGFR -strict I/O, trend Cr Chronic diastolic heart failure 12/21/2021 Assessment & Plan (07/16/2024 12:43 AM EDT): -follows with Cardiology at [facility] -04/03/24 ECHO: LVEF 50-55%, mild LVH, grade [...] dilation around 1yr ago PLAN -Aspiration precautions -LINOTYPE MECHANIC consulted Macular degeneration 12/19/2020 Overview (07/15/2024): Retina [...] 12:43 AM EDT): -follows with Rheumatology at [facility] PLAN -continue plaquenil and Coronary arteriosclerosis 07/13/2009 [...] Department Care Team Description 08/02/2024 Patient Outreach POPULATION [facility] [address], [address] [place] [address] Nancy Trammell LPN Follow-up 07/23/2024 Patient Outreach [address], [address] [place] [id number] Nancy Trammell LPN TCM Call 07/20/2024 Travel 07/18/2024 Travel 07/15/2024 4:26 PM EDT - 07/20/2024 2:59 PM EDT Hospital Encounter [facility] H Inpatient [address] [place] [address] Hans Stephenson MD Arndt, MD Melissa Rodgers, Dc Meneses MD Aric, Edgardo Gaytan MD Multifocal pneumonia (Primary Dx); Fall, initial encounter Discharge Disposition: Home or Self Care 07/15/2024 Orders Only External Location [address] [place] [address] Provider, External 07/15/2024 Orders Only External Location [address] [address] Provider, External 07/15/2024 Travel 07/15/2024 Orders Only External Location [address] [address] Provider, External 07/15/2024 Orders Only External Location [address] [place] [address] Provider, External from Last 3 Months Immunizations [...] and Family Not on file 07/16/2024 Attends [employer] Not on file 07/16 Active Member [...] any time in the past 12 m [facility], were you homeless or living in a long-term (including now)? No 07/16/2024 Utilities Answer Date Recorded In the past 12 months has [employer], [employer], oil, or water [employer] threatened to shut off services in your [...] FOBT 03/24/2018 03/24/2017 [facility]-Colorectal Cancer Screening 03/24/2018 [id number] Vaccine (6 - Mixed Product risk season) [...] Recently Relevant to Health Maintenance Results * Adult Patch Monitor - 14 [...] 150 bpm on Day :43:35 pm SVE(s): [place] was 0.08 %, 1015 total SVE(s) SV Arrhythmia(s): 14 event(s), longest event 11 beats on Day :00:43 pm, fastest event 150 bpm on Day :43:39 pm PVC(s): [place] was 0.34 %, 4504 total PVC(s), 3 disparate morphologies Ventricular Arrhythmia(s): 45 event(s), longest event 12 beats at Day :16:03 pm, fastest event 150 bpm at Day :13:04 pm Patient recorded 1 event(s) during the monitoring period PHYSICIAN COMMENTS: Agree w the findings above. Sinus rhythm noted during patient event. us Edgardo Corbett MD CV CARDIAC SERVICES PROCEDURES [...] 07/20/2024 12:25 PM EDT [facility] Credit Control Clerk ID Xiomara Jackson 07/21/19 12:25 PM EDT [facility] Device ID [id number] 07/20/2024 12:25 PM EDT [facility] Specimen Type POC Capillary 07/20/2024 12:25 PM EDT [facility] Blood Capillary blood specimen / Unknown 07/20/2024 12:23 PM EDT 07/20/2024 12:25 PM EDT us Edgardo Corbett MD LAB POINT OF CARE TE ST DOCKED DEVICE UNSOLICITED RESULTS Final Result [facility] [address] [place], [place] [id number] * XR Chest 1 View (07/20/2024 9:07 [...] of2 resultswithin the time period is included. Lactate, Venous, Whole Blood 2.0 0.5 - 2.2 mmol/L LAB HEMATOLOGY METHOD 07/20/2024 4:31 AM EDT [facility] Blood Venous blood specimen / Unknown Venipuncture / Unknown 07/20/2024 4:22 AM EDT 07/20/2024 4:28 AM EDT Edgardo Corbett MD LAB BLOOD ORDERABLES Final Resu lt Performing Organization Address City/[facility]/ZIP Co de Phone Number [facility] [address] [place] [address] * (ABNORMAL) Cystatin C (07/20/2024 4:22 AM EDT) Only the most recent of4 resultswithin the time period is included. [facility] Cystatin C 1.17(H) 0.61 - 0.95 mg/L 07/20/2024 5:05 AM EDT [facility] Blood Venous blood specimen / Unknown Venipuncture / Unknown 07/20/2024 4:22 AM EDT 07/20/2024 4:32 AM EDT Edgardo Corbett MD LAB BLOOD ORDERABLES Final Resu Performing Organization Address City/[facility] Co de Phone Number [facility] [address] [place] [address] * (ABNORMAL) Procalcitonin (07/20/2024 4:22 AM EDT) Only the most recent of2 resultswithin the time period is included. [facility] Procalcitonin, Plasma 0.61(H) <0.09 ng/mL 07/20/2024 5:09 AM EDT [facility] Blood Venous blood specimen / Unknown Venipuncture / Unknown 07/20/2024 4:22 AM EDT 07/20/2024 4:32 AM EDT Narrative [facility] - 07/20/2024 5:09 AM EDT [...] predict 28 day mortality risk. Please consult [email or web address] of [email or web address] for more information. Test performed at [facility]. us Edgardo Corbett MD LAB BLOOD ORDERABLES Final Resu lt [facility] [address] [place] [address] * (ABNORMAL) CBC and Differential (07/20/2024 4:22 AM EDT) Only the most recent of5 resultswithin the time period is included. WBC Count 6.15 3.70 - 10.30 10*3/uL LAB HEMATOLOGY METHOD 07/20/2024 4:42 AM EDT [facility] RBC Count 4.08(L) 4.60 - 6.10 10*6/uL LAB HEMATOLOGY METHOD 07/20/2024 4:42 AM EDT [facility] HGB 11.2(L) 13.7 - 17.5 g/dL LAB HEMATOLOGY METHOD 07/20/2024 4:42 AM EDT [facility] HCT 35.9(L) 40.0 - 51.0 % LAB HEMATOLOGY METHOD 07/20/2024 4:42 AM EDT [facility] Platelet Count 149(L) 155 - 369 10*3/uL LAB HEMATOLOGY METHOD 07/20/2024 4:42 AM EDT [facility] MCV 88 79 - 98 fL LAB HEMATOLOGY METHOD 07/20/2024 4:42 AM EDT [facility] MCH 27.5 26.0 - 32.0 pg LAB HEMATOLOGY METHOD 07/20/2024 4:42 AM EDT [facility] MCHC 31.2 30.7 - 35.5 g/dL LAB HEMATOLOGY METHOD 07/20/2024 4:42 AM EDT [facility] RDW 16.1(H) 11.5 - 14.5 % LAB HEMATOLOGY METHOD 07/20/2024 4:42 AM EDT [facility] MPV 9.4 8.8 - 12.5 fL LAB HEMATOLOGY METHOD 07/20/2024 4:42 AM EDT [facility] nRBC 0.0 <=0.0 per 100 WBCs LAB HEMATOLOGY METHOD 07/20/2024 4:42 AM EDT [facility] Differential Type Automated LAB HEMATOLOGY METHOD 07/20/2024 4:42 AM EDT [facility] Neutrophils % 41 % LAB HEMATOLOGY METHOD 07/20/2024 4:42 AM EDT [facility] Lymphocytes % 35 % LAB HEMATOLOGY METHOD 07/20/2024 4:42 AM EDT [facility] Monocytes % 7 % LAB HEMATOLOGY METHOD 07/20/2024 4:42 AM EDT [facility] Eosinophils % 15 % LAB HEMATOLOGY METHOD 07/20/2024 4:42 AM EDT [facility] Basophils % 1 % LAB HEMATOLOGY METHOD 07/20/2024 4:42 AM EDT [facility] Immature Granulocytes % 1 % LAB HEMATOLOGY METHOD 07/20/2024 4:42 AM EDT [facility] Neutrophils Absolute 2.55 1.60 - 6.10 10*3/uL LAB HEMATOLOGY METHOD 07/20/2024 4:42 AM EDT [facility] Lymphocytes Absolute 2.17 1.20 - 3.90 10*3/uL LAB HEMATOLOGY METHOD 07/20/2024 4:42 AM EDT [facility] Monocytes Absolute 0.45 0.30 - 0.90 10*3/uL LAB HEMATOLOGY METHOD 07/20/2024 4:42 AM EDT [facility] Eosinophils Absolute 0.91(H) 0.00 - 0.50 10*3/uL LAB HEMATOLOGY METHOD 07/20/2024 4:42 AM EDT [facility] Basophils Absolute 0.04 0.00 - 0.10 10*3/uL LAB HEMATOLOGY METHOD 07/20/2024 4:42 AM EDT [facility] Immature Granulocytes Absolute 0.03 0.00 - 0.06 10*3/uL LAB HEMATOLOGY METHOD 07/20/2024 4:42 AM EDT [facility] Blood Venous blood specimen / Unknown Venipuncture / Unknown 07/20/2024 4:22 AM EDT 07/20/2024 4:34 AM EDT [facility] - 07/20/2024 4:42 AM EDT Therapeutic decision making should be based on absolute values, rather than percentages. Dc Torres MD LAB BLOOD ORDERABLES Final Result Performing Organization Address City/[facility] Co de Phone Number [facility] [address] [place] [address] * (ABNORMAL) C-Reactive Protein, Plasma (07/20/2024 4:22 AM EDT) Only the most recent of4 resultswithin the time period is included. CRP, Plasma 149.7(H) <=8.0 mg/L 07/20/2024 5:05 AM EDT [facility] Blood Venous blood specimen / Unknown Venipuncture / Unknown 07/20/2024 4:22 AM EDT 07/20/2024 4:32 AM EDT Narrative [facility] - 07/20/2024 5:05 AM EDT This CRP test is appropriate for assessment of infection, systemic inflammation and/or tissue injury. To assess cardiovascular disease risk order high sensitivity CRP (CRPH). Edgardo Corbett MD LAB BLOOD ORDERABLES Final Resu lt Performing Organization Address [facility] [place] [address] * Phosphorus, Plasma (07/20/2024 4:22 AM EDT) Only the most recent of4 resultswithin the time period is included. Phosphorus, Plasma 3.1 2.5 - 4.5 mg/dL 07/20/2024 5:05 AM EDT [facility] Blood Venous blood specimen / Unknown Venipuncture / Unknown 07/20/2024 4:22 AM EDT 07/20/2024 4:32 AM EDT Dc Torres MD LAB BLOOD ORDERABLES Final Result Performing Organization Address City/[facility]/ZIP Co de Phone Number [facility] [address] [place] [address] * Magnesium, Plasma (07/20/2024 4:22 AM EDT) Only the most recent of6 resultswithin the time period is included. Magnesium, Plasma 1.9 1.9 - 2.4 mg/dL 07/20/2024 5:05 AM EDT [facility] Blood Venous blood specimen / Unknown Venipuncture / Unknown 07/20/2024 4:22 AM EDT 07/20/2024 4:32 AM EDT Dc Torres MD LAB BLOOD ORDERABLES Final Result [facility] [address] [place] [address] * (ABNORMAL) Comprehensive Metabolic Panel, Plasma (07/20/2024 4:22 AM EDT) Only the most recent of5 resultswithin the time period is included. Glucose, Plasma 146(H) 74 - 99 mg/dL 07/20/2024 5:05 AM EDT [facility] BUN, Plasma 8 8 - 23 mg/dL 07/20/2024 5:05 AM EDT [facility] Creatinine, Plasma 0.89 0.70 - 1.20 mg/dL 07/20/2024 5:05 AM EDT [facility] BUN/Creatinine Ratio 9 07/20/2024 5:05 AM EDT [facility] Sodium, Plasma 141 136 - 145 mmol/L 07/20/2024 5:05 AM EDT [facility] Potassium, Plasma 3.6 3.6 - 4.9 mmol/L 07/20/2024 5:05 AM EDT [facility] Chloride, Plasma 103 97 - 107 mmol/L 07/20/2024 5:05 AM EDT [facility] CO2, Plasma 24 22 - 29 mmol/L 07/20/2024 5:05 AM EDT [facility] Anion Gap 14 6 - 16 mmol/L 07/20/2024 5:05 AM EDT [facility] Total Calcium, Plasma 9.4 8.9 - 10.2 mg/dL 07/20/2024 5:05 AM EDT [facility] Total Protein 7.3 6.3 - 7.9 g/dL 07/20/2024 5:05 AM EDT [facility] Albumin, Plasma 3.3(L) 3.5 - 5.2 g/dL 07/20/2024 5:05 AM EDT [facility] AST, Plasma 30 10 - 50 U/L 07/20/2024 5:05 AM EDT [facility] ALT, Plasma 34 10 - 50 U/L 07/20/2024 5:05 AM EDT [facility] Alkaline Phosphatase, Plasma 118(H) 40 - 115 U/L 07/20/2024 5:05 AM EDT [facility] Total Bilirubin, Plasma 0.7 0.2 - 1.1 mg/dL 07/20/2024 5:05 AM EDT [facility] eGFRcr 92.2 mL/min/1.7 3m*2 07/20/2024 5:05 AM EDT [facility] Comment:Reported eGFRcr in m L/min/1.73m2 is based the CKD-EPI 2020 equation that does not use a race coefficient. Blood Venous blood specimen / Unknown Venipuncture / Unknown 07/20/2024 4:22 AM EDT 07/20/2024 4:32 AM EDT us Edgardo Corbett MD LAB BLOOD ORDERABLES Final Resu lt [facility] [address] [place] [address] * Alpha Fetoprotein, Serum (07/19/2024 12:02 AM EDT) Alpha Fetoprotein, Serum <2.3 <10.0 ng/mL 07/19/2024 2:39 AM EDT [facility] Blood Venous blood specimen / Unknown Venipuncture / Unknown 07/19/2024 12:02 AM EDT 07/19/2024 12:06 AM EDT Narrative [facility] - 07/19/2024 2:39 AM EDT Performed by Faisal electrochemiluminescent immunoassay which is traceable to the 1st AFP IRP WHO Reference standard 72/255. Results obtained with different test methods or kits cannot be used interchangeably. us Edgardo Corbett MD LAB BLOOD ORDERABLES Final Resu lt [facility] [address] [place] [address] * Prostate Cancer Screen, Serum (07/19/2024 12:02 AM EDT) Prostate Cancer Screen, Serum 0.19 0.00 - 6.50 ng/mL 07/19/2024 1:39 AM EDT [facility] Blood Venous blood specimen / Unknown Venipuncture / Unknown 07/19/2024 12:02 AM EDT 07/19/2024 12:06 AM EDT Narrative [facility] - 07/19/2024 1:39 AM EDT Performed by Faisal electrochemiluminescent immunoassay which is standardized against the PSA Micha Reference Standard (WHO 96/670). Results obtained with different test methods or kits cannot be used interchangeably. us Edgardo Corbett MD LAB BLOOD ORDERABLES Final Resu lt Performing Organization Address [facility] Co de Phone Number [facility] [address] [place] [address] * Cancer Antigen, GI (CA 19.9) (07/19/2024 12:02 AM EDT) CA 19.9 20.9 <36 U/mL 07/19/2024 2:3 9 AM EDT [facility] Blood Venous blood specimen / Unknown Venipuncture / Unknown 07/19/2024 12:02 AM EDT 07/19/2024 12:06 AM EDT Narrative [facility] - 07/19/2024 2:39 AM EDT Performed by Faisal electrochemiluminescent immunoassay. Results obtained with different test methods or kits cannot be used interchangeably. us Edgardo Corbett MD LAB BLOOD ORDERABLES Final Resu lt Performing Organization Address City/[facility]/[place] [address] * T4, free (07/19/2024 12:02 AM EDT) Free T4, Plasma 1.1 0.8 - 1.7 ng/dL 07/19/2024 2:07 AM EDT [facility] Blood Venous blood specimen / Unknown Venipuncture / Unknown 07/19/2024 12:02 AM EDT 07/19/2024 12:06 AM EDT Edgardo oCrbett MD LAB BLOOD ORDERABLES Final Resu lt Performing Organization Address [facility] Co de Phone Number [facility] [address] [place] [address] * (ABNORMAL) CEA, Serum (07/19/2024 12:02 AM EDT) CEA, Serum 8.8(H) <4.0 ng/mL 07/19/2024 2:[address] [facility] Blood Venous blood specimen / Unknown Venipuncture / Unknown 07/19/2024 12:02 AM EDT 07/19/2024 12:06 AM EDT Narrative [facility] - 07/19/2024 2:39 AM EDT Normal range for smokers: < 5.5 ng/ml Normal range for non-smokers: <=4.0 ng/ml Performed by Faisal electrochemiluminescent immunoassay. Results obtained with different test methods or kits cannot be used interchangeably. Edgardo Corbett MD LAB BLOOD ORDERABLES Final Resu lt Performing Organization Address [facility] Co de Phone Number [address] [address] * FL Modified Barium Swallow (07/18/2024 8:35 [...] is deep laryngeal penetration by the teaspoon. Salado consistency (IDDSI 2): No aspiration. There is [...] There is deep laryngealpenetration by the teaspoon. Salado consistency (IDDSI 2): No aspiration. There is [...] - 899 pg/mL 07/18/2024 2:54 PM EDT [facility] Blood Venous blood specimen / Unknown Venipuncture / Unknown 07/18/2024 5:48 AM EDT 07/18/2024 5:53 AM EDT Edgardo Corbett MD LAB BLOOD ORDERABLES Final Resu lt [facility] [address] [place] [address] * TSH Reflex FT4 (07/17/2024 3:14 AM EDT) Thyroid Stimulating Hormone, Plasma 2.96 0.40 - 4.20 uIU/mL 07/17/2024 4:13 AM EDT [facility] Blood Venous blood specimen / Unknown Venipuncture / Unknown 07/17/2024 3:14 AM EDT 07/17/2024 3:33 AM EDT Dc Torres MD LAB BLOOD [place] [address] * Creatine Kinase (CK), Total (07/17/2024 3:14 AM EDT) Creatine Kinase, Plasma 143 49 - 320 U/L 07/17/2024 4:13 AM EDT [facility] Blood Venous blood specimen / Unknown Venipuncture / Unknown 07/17/2024 3:14 AM EDT 07/17/2024 3:33 AM EDT Dc Torres MD LAB BLOOD ORDERABLES Final Result Performing Organization Address City/[facility] [place] [address] * Folate, Serum (07/17/2024 3:14 AM EDT) Folate, Serum >20.0 >4.6 ng/mL 07/17/2024 4:22 AM EDT [facility] Blood Venous blood specimen / Unknown Venipuncture / Unknown 07/17/2024 3:14 AM EDT 07/17/2024 3:33 AM EDT Dc Torres MD LAB BLOOD ORDERABLES Final Result Performing Organization Address City/[facility]/ZIP Co de Phone Number [facility] [address] [place] [address] * Ferritin, Serum (07/17/2024 3:14 AM EDT) Ferritin, Serum 97 20 - 400 ng/mL 07/17/2024 4:22 AM EDT [facility] Blood Venous blood specimen / Unknown Venipuncture / Unknown 07/17/2024 3:14 AM EDT 07/17/2024 3:33 AM EDT Dc Torres MD LAB BLOOD ORDERABLES Final Result [facility] [address] [place] [address] * Vitamin B12, Serum (07/17/2024 3:14 AM EDT) Pathologist [facility] [place] Vitamin B12, Serum 580 210 - 1,033 pg/mL 07/17/2024 4:22 AM EDT [facility] Blood Venous blood specimen / Unknown Venipuncture / Unknown 07/17/2024 3:14 AM EDT 07/17/2024 3:33 AM EDT Dc Torres MD LAB BLOOD ORDERABLES Final Result Performing Organization Address [facility] Co de Phone Number [facility] [address] [place] [address] * (ABNORMAL) Iron & Total Iron Binding Capacity, Plasma (Includes Transferrin) (07/16/2024 4:22 AM EDT) [facility] Iron, Plasma 19(L) 50 - 170 ug/dL 07/16/2024 8:33 AM EDT [facility] Transferrin, Plasma 174(L) 200 - 360 mg/dL 07/16/2024 8:33 AM EDT [facility] Total Iron Binding Capacity, Plasma 218(L) 240 - 450 ug/mL 07/16/2024 8:33 AM EDT [facility] Transferrin Saturation 9(L) 14 - 50 % 07/16/2024 8:33 AM EDT [facility] Blood Venous blood specimen / Unknown Venipuncture / Unknown 07/16/2024 4:22 AM EDT 07/16/2024 4:44 AM EDT Dc Torres MD LAB BLOOD ORDERABLES Final Result Performing Organization Address City/[facility]/ZIP Co de Phone Number [facility] [address] [place] [address] * (ABNORMAL) Prothrombin Time/INR (07/16/2024 4:22 AM EDT) Only the most recent of2 resultswithin the time period is included. Pathologist [facility] [place] Prothrombin Time 15.6(H) 12.0 - 14.3 sec 07/16/2024 4:39 AM EDT [facility] INR 1.3(H) 0.9 - 1.1 07/16/2024 4:39 AM EDT [facility] Blood Venous blood specimen / Unknown Venipuncture / Unknown 07/16/2024 4:22 AM EDT 07/16/2024 4:26 AM EDT Narrative [facility] - 07/16/2024 4:39 AM EDT [...] APRN LAB BLOOD ORDERABLES Final Re sult [facility] [address] [place] [address] * (ABNORMAL) Reticulocytes, Blood (07/16/2024 4:22 AM EDT) [facility] Reticulocyte Absolute 94.8 40.0 - 110.0 10*3/uL LAB HEMATOLOGY METHOD 07/16/2024 3:47 PM EDT [facility] Immature Reticulocyte Fraction 24.2(H) 3.1 - 17.6 % LAB HEMATOLOGY METHOD 07/16/2024 3:47 PM EDT [facility] Reticulocyte Hemoglobin 29.7 28 - 38 pg LAB HEMATOLOGY METHOD 07/16/2024 3:47 PM EDT [facility] Reticulocyte Count 2.80(H) 0.90 - 2.50 % LAB HEMATOLOGY METHOD 07/16/2024 3:47 PM EDT [facility] Blood Venous blood specimen / Unknown Venipuncture / Unknown 07/16/2024 4:22 AM EDT 07/16/2024 4:26 AM EDT us Dc Torres MD LAB BLOOD ORDERABLES Final Result [facility] [address] [place] [address] * (ABNORMAL) CBC W/O Differential (07/16/2024 4:22 AM EDT) WBC Count 6.11 3.70 - 10.30 10*3/uL LAB HEMATOLOGY METHOD 07/16/2024 4:30 AM EDT [facility] RBC Count 3.29(L) 4.60 - 6.10 10*6/uL LAB HEMATOLOGY METHOD 07/16/2024 4:30 AM EDT [facility] HGB 9.4(L) 13.7 - 17.5 g/dL LAB HEMATOLOGY METHOD 07/16/2024 4:30 AM EDT [facility] HCT 29.2(L) 40.0 - 51.0 % LAB HEMATOLOGY METHOD 07/16/2024 4:30 AM EDT [facility] Platelet Count 111(L) 155 - 369 10*3/uL LAB HEMATOLOGY METHOD 07/16/2024 4:30 AM EDT [facility] MCV 89 79 - 98 fL LAB HEMATOLOGY METHOD 07/16/2024 4:30 AM EDT [facility] MCH 28.6 26.0 - 32.0 pg LAB HEMATOLOGY METHOD 07/16/2024 4:30 AM EDT [facility] MCHC 32.2 30.7 - 35.5 g/dL LAB HEMATOLOGY METHOD 07/16/2024 4:30 AM EDT [facility] RDW 16.9(H) 11.5 - 14.5 % LAB HEMATOLOGY METHOD 07/16/2024 4:30 AM EDT [facility] MPV 9.1 8.8 - 12.5 fL LAB HEMATOLOGY METHOD 07/16/2024 4:30 AM EDT [facility] nRBC 0.0 <=0.0 per 100 WBCs LAB HEMATOLOGY METHOD 07/16/2024 4:30 AM EDT [facility] Blood Venous blood specimen / Unknown Venipuncture / Unknown 07/16/2024 4:22 AM EDT 07/16/2024 4:26 AM EDT us Victor M Deshpande 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 LAB BLOOD ORDERABLES Final Re sult [facility] [address] [place] [address] * (ABNORMAL) Renal Function Panel, Plasma (07/16/2024 4:22 AM EDT) Glucose, Plasma 292(H) 74 - 99 mg/dL 07/16/2024 5:28 AM EDT [facility] BUN, Plasma 13 8 - 23 mg/dL 07/16/2024 5:28 AM EDT [facility] Creatinine, Plasma 0.87 0.70 - 1.20 mg/dL 07/16/2024 5:28 AM EDT [facility] BUN/Creatinine Ratio 15 07/16/2024 5:28 AM EDT [facility] Sodium, Plasma 140 136 - 145 mmol/L 07/16/2024 5:28 AM EDT [facility] Potassium, Plasma 3.6 3.6 - 4.9 mmol/L 07/16/2024 5:28 AM EDT [facility] Chloride, Plasma 103 97 - 107 mmol/L 07/16/2024 5:28 AM EDT [facility] CO2, Plasma 26 22 - 29 mmol/L 07/16/2024 5:28 AM EDT [facility] Anion Gap 11 6 - 16 mmol/L 07/16/2024 5:28 AM EDT [facility] Total Calcium, Plasma 8.4(L) 8.9 - 10.2 mg/dL 07/16/2024 5:28 AM EDT [facility] Phosphorus, Plasma 3.1 2.5 - 4.5 mg/dL 07/16/2024 5:28 AM EDT [facility] Albumin, Plasma 2.9(L) 3.5 - 5.2 g/dL 07/16/2024 5:28 AM EDT [facility] eGFRcr 92.8 mL/min/1.7 3m*2 07/16/2024 5:28 AM EDT [facility] [facility] Comment:Reported eGFRcr in m L/min/1.73m2 is based the CKD-EPI 2020 equation that does not use a race coefficient. Blood Venous blood specimen / Unknown Venipuncture / Unknown 07/16/2024 4:22 AM EDT 07/16/2024 4:44 AM EDT Victor M Deshpande APRN LAB BLOOD ORDERABLES Final Re sult Performing Organization Address [facility] Co de Phone Number [facility] [address] [place] [address] * (ABNORMAL) Multi Drug Resistance Test (07/15/2024 11:25 PM EDT) Culture Methicillin-Resis tant Staphylococcus aureus(AA) 07/17/2024 7:[address] [facility] Comment: The organism value for this result has been updated. These results have been appended to the previously preliminary verified report. <null> has been updated to reportable. Swab (Nares and Christiane Rectal) Non-blood Collection / Unknown 07/15/2024 11:25 PM EDT 07/16/2024 12:26 AM EDT Narrative [facility] - 07/17/2024 7:34 AM EDT This test was developed and its performance characteristics determined by the [facility]. Although the media is FDA-approved, it is not FDA-approved for all specimen types submitted. The FDA has determined that such clearance or approval is not necessary. This test is used for surveillance purposes. It should not be regarded as investigational or for research. The [facility] is certified under the Clinical Laboratory Improvement Amendments of 1988 (CLIA-88) as qualified to perform high complexity clinical laboratory testing. Victor M Deshpande APRN LAB MICROBIOLOGY - GENERAL OR DERABLES Final Result Performing Organization Address [facility] Co de Phone Number [facility] [address] [place] [address] * (ABNORMAL) Hemoglobin and Hematocrit, Blood (07/15/2024 11:25 PM EDT) HGB 9.2(L) 13.7 - 17.5 g/dL LAB HEMATOLOGY METHOD 07/16/2024 12:03 AM EDT [facility] HCT 28.8(L) 40.0 - 51.0 % LAB HEMATOLOGY METHOD 07/16/2024 12:03 AM EDT [facility] Blood Venous blood specimen / Unknown Venipuncture / Unknown 07/15/2024 11:25 PM EDT 07/15/2024 11:33 PM EDT Victor M Deshpande 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 LAB BLOOD ORDERABLES Final Re sult Performing Organization Address [facility] Co de Phone Number [facility] [address] [place] [address] * Type and Screen (07/15/2024 11:25 PM EDT) ABO/Rh A Positive 07/15/2024 11:08 PM EDT [facility] Antibody Screen Negative 07/15/2024 11:08 PM EDT [facility] Specimen Expiration 07/18/2024 23:59 07/15/2024 11:08 PM EDT [facility] Blood Venous blood specimen / Unknown Venipuncture / Unknown 07/15/2024 11:25 PM EDT 07/15/2024 11:32 PM EDT Victor M Deshpande 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 LAB BLOOD BANK TEST ORDERABLE S Final Result Performing Organization Address [facility] de Phone Number BLOOD BANK [address] [place] [address], * ECG Adult (07/15/2024 8:56 PM EDT) EKG DIAGNOSIS CLASS Abnormal MUSE ECG Ventricular Rate 63 BPM MUSE ECG Atrial Rate 63 BPM MUSE ECG VT Interval 162 ms MUSE ECG QRSD Interval 112 ms MUSE ECG QT Interval 482 ms MUSE ECG QTC Interval 493 ms MUSE ECG P Liberty 33 degrees MUSE ECG R Liberty -40 degrees MUSE ECG T Wave Liberty 6 degrees MUSE ECG Diagnosis Normal sinus [...] (Urine) Negative Negative 07/15/2024 9:24 PM EDT [facility] Streptococcus pneumoniae Antigen Result (Urine) Negative Negative 07/15/2024 9:24 PM EDT [facility] Urine Urine specimen obtained by clean catch procedure / Unknown Non-blood Collection / Unknown 07/15/2024 8:33 PM EDT 07/15/2024 9:02 PM EDT Victor M Deshpande APRN LAB MICROBIOLOGY - GENERAL OR DERABLES Final Result [facility] [address] [place] [address] * Urine Kat Panel (07/15/2024 8:33 PM EDT) Extra Reflex urine culture not indicated 07/16/2024 5:02 AM EDT [facility] Comment: Previously prelim verified as [...] 8:33 PM EDT 07/15/2024 8:52 PM EDT Hans Stephenson MD LAB URINE ORDERABLES Final Result [facility] [address] [place] [address] * (ABNORMAL) Pain Management, Quantitative Urine Drug Testing (07/15/2024 8:33 PM EDT) [place] Alprazolam <20 <20 ng/mL 07/17 7:08 AM EDT [facility] [place] Midazolam <20 <20 ng/mL 2024 7:08 AM EDT [facility] [place] Triazolam <20 <20 ng/mL 2024 7:08 AM EDT [facility] Alprazolam <10 <10 ng/mL 07/17/2024 7:08 AM EDT [facility] Aminoclonazepam <20 <20 ng/mL 7:08 AM EDT [facility] Amphetamine <50 <50 ng/mL 07/17/2024 7:08 AM EDT [facility] Benzoylecgonine <50 <50 ng/mL 7:08 AM EDT [facility] Buprenorphine <10 <10 ng/mL 07/17/2024 7:08 AM EDT [facility] Buprenorphine Glucuronide <50 <50 ng/mL 07/17/2024 7:08 AM EDT [facility] Butalbital <50 <50 ng/mL 07/17/2024 7:08 AM EDT [facility] 9 Carboxy THC <10 <10 ng/mL 07/17/2024 7:08 AM EDT [facility] 9 Carboxy THC Glucuronide <25 <25 ng/mL 07/17/2024 7:08 AM EDT [facility] Clonazepam <10 <10 ng/mL 07/17/2024 7:08 AM EDT [facility] Codeine <50 <50 ng/mL 07/17/2024 7:08 AM EDT [facility] Codeine Glucuronide <50 <50 ng/mL 07/17 7:08 AM EDT [facility] Cyclobenzaprine <50 <50 ng/mL 7:08 AM EDT [facility] Desmethyl Tramadol <50 <50 ng/mL 2024 7:08 AM EDT [facility] Diazepam <10 <10 ng/mL 07/17/2024 7:08 AM EDT [facility] EDDP - Methadone Metabolite <50 <50 ng/mL 07/17/2024 7:08 AM EDT [facility] Fentanyl <1 <1 ng/mL 07/17/2024 7:08 AM EDT [facility] Hydrocodone >1,000(H) <50 ng/mL 07/17/2024 7:08 AM EDT [facility] Hydromorphone <50 <50 ng/mL 07/17/2024 7:08 AM EDT [facility] Hydromorphone Glucuronide >1,000(H) <50 ng/mL 07/17/2024 7:08 AM EDT [facility] Lorazepam <20 <20 ng/mL 07/17/2024 7:08 AM EDT [facility] Lorazepam Glucuronide <50 <50 ng/mL 07/17/2024 7:08 AM EDT [facility] MDA <50 <50 ng/mL 07/17/2024 7:08 AM EDT [facility] MDMA <50 <50 ng/mL 07/17/2024 7:08 AM EDT [facility] Meperidine <50 <50 ng/mL 07/17/2024 7:08 AM EDT [facility] Methadone <50 <50 ng/mL 07/17/2024 7:08 AM EDT [facility] Methamphetamine <50 <50 ng/mL 7:08 AM EDT [facility] Methylphenidate <50 <50 ng/mL 7:08 AM EDT [facility] 6 Monoacetyl morphine <10 <10 ng/mL 07/17/2024 7:08 AM EDT [facility] Morphine <50 <50 ng/mL 07/17/2024 7:08 AM EDT [facility] Morphine Glucuronide <50 <50 ng/mL 07/08 7:08 AM EDT [facility] Naloxone <50 <50 ng/mL 07/17/2024 7:08 AM EDT [facility] Naloxone Glucuronide <50 <50 ng/mL 07/08 7:08 AM EDT [facility] Norbuprenorphine <10 <10 ng/mL 07/18/19 7:08 AM EDT [facility] Norbuprenorphine Glucuronide <50 <50 ng/mL 07/17/2024 7:08 AM EDT [facility] Nordiazepam <20 <20 ng/mL 07/17/2024 7:08 AM EDT [facility] Norfentanyl <2 <2 ng/mL 07/17/2024 7:08 AM EDT [facility] Normeperidine <50 <50 ng/mL 07/17/2024 7:08 AM EDT [facility] PCP Quant, Ur <50 <50 ng/mL 07/17/2024 7:08 AM EDT [facility] Phenobarbital <50 <50 ng/mL 07/17/2024 7:08 AM EDT [facility] Oxazepam <20 <20 ng/mL 07/17/2024 7:08 AM EDT [facility] Oxazepam Glucuronide <50 <50 ng/mL 07/08 7:08 AM EDT [facility] Oxycodone <50 <50 ng/mL 07/17/2024 7:08 AM EDT [facility] Oxymorphone <50 <50 ng/mL 07/17/2024 7:08 AM EDT [facility] Oxymorphone Glucuronide <50 <50 ng/mL 07/17/2024 7:08 AM EDT [facility] Secobarbital <50 <50 ng/mL 07/17/2024 7:08 AM EDT [facility] Tramadol <50 <50 ng/mL 07/17/2024 7:08 AM EDT [facility] Temazepam <20 <20 ng/mL 07/17/2024 7:08 AM EDT [facility] Temazepam Glucuronide <50 <50 ng/mL 07/17/2024 7:08 AM EDT [facility] Urine Urine specimen obtained by clean catch procedure / Unknown Non-blood Collection / Unknown 07/15/2024 8:33 PM EDT 07/15/2024 8:52 PM EDT Narrative [facility] - 07/17/2024 7:08 AM EDT [...] laboratory. Test performed by LC-MS/MS at the [facility]. This test was developed and its performance characteristics determined by [facility]. It has not been cleared or approved by the FDA. The laboratory is regulated under CLIA as qualified to perform high-complexity testing. This test is used for clinical purposes. Victor M Deshpande APRN LAB URINE ORDERABLES Final Re sult [facility] [address] [place] [address] * Nasopharyngeal Respiratory Panel (07/15/2024 8:33 PM EDT) Nasopharyngeal Respiratory PCR Interpretation Not Detected for all analytes Not Detected for all analytes 07/15/2024 10:50 PM EDT [facility] Swab Nasopharyngeal structure / Unknown Non-blood Collection / Unknown 07/15/2024 8:33 PM EDT 07/15/2024 9:02 PM EDT Narrative [facility] - 07/15/2024 10:50 PM EDT [...] Respiratory PCR Panel is performed using the [employer] instrument. This test is FDA approved for use with Nasopharyngeal swabs only. This test is used for clinical purposes. It should not be regarded as investigational or for research. The [facility] is certified under the Clinical Laboratory Improvement Amendments of 1988 (CLIA-88) as qualified to perform high complexity clinical laboratory testing. Victor M Deshpande APRN LAB MICROBIOLOGY - GENERAL OR DERABLES Final Result [facility] [address] [place] [address] * (ABNORMAL) Comprehensive Urine Drug Screening, Qualitative Assay, >= 27 Drug Classes (58:33 PM EDT) Acetaminophen Positive(A) Negative 07/16/2024 11:24 PM EDT [facility] Alprazolam Negative Negative 07/16/2024 11:24 PM EDT [facility] Amantadine Negative Negative 07/16/2024 11:24 PM EDT [facility] Amitriptyline Negative Negative 07/16/2024 11:24 PM EDT [facility] Amphetamine Negative Negative 07/16/2024 11:24 PM EDT [facility] Atenolol Negative Negative 07/16/2024 11:24 PM EDT [facility] Benzoylecgonine Negative Negative 11:24 PM EDT [facility] Bisoprolol Negative Negative 07/16/2024 11:24 PM EDT [facility] Bupropion Negative Negative 07/16/2024 11:24 PM EDT [facility] Butalbital Negative Negative 07/16/2024 11:24 PM EDT [facility] Carbamazepine Negative Negative 07/16/2024 11:24 PM EDT [facility] Carisoprodol Negative Negative 07/16/2024 11:24 PM EDT [facility] Chlorpheniramine Negative Negative 07/17/19 11:24 PM EDT [facility] Citalopram Negative Negative 07/16/2024 11:24 PM EDT [facility] Clindamycin Negative Negative 07/16/2024 11:24 PM EDT [facility] Clonidine Negative Negative 07/16/2024 11:24 PM EDT [facility] Clopidogrel / Ticlopidine Negative Negative 07/16/2024 11:24 PM EDT [facility] Cocaethylene Negative Negative 07/16/2024 11:24 PM EDT [facility] Cocaine Negative Negative 07/16/2024 11:24 PM EDT [facility] Codeine Negative Negative 07/16/2024 11:24 PM EDT [facility] Cyclobenzaprine Negative Negative 11:24 PM EDT [facility] Desvenlafaxine Negative Negative 07/16/2024 11:24 PM EDT [facility] Dextromethorphan Negative Negative 07/17/19 11:24 PM EDT [facility] Diazepam Negative Negative 07/16/2024 11:24 PM EDT [facility] Diltiazem Negative Negative 07/16/2024 11:24 PM EDT [facility] Diphenhydramine Negative Negative 11:24 PM EDT [facility] Doxepine Negative Negative 07/16/2024 11:24 PM EDT [facility] Doxylamine Negative Negative 07/16/2024 11:24 PM EDT [facility] EDDP-Methadone metabolite Negative Negative 07/16/2024 11:24 PM EDT [facility] Fentanyl Negative Negative 07/16/2024 11:24 PM EDT [facility] Fluconazole Negative Negative 07/16/2024 11:24 PM EDT [facility] Fluoxetine Negative Negative 07/16/2024 11:24 PM EDT [facility] Guaifenesin Negative Negative 07/16/2024 11:24 PM EDT [facility] Haloperidol Negative Negative 07/16/2024 11:24 PM EDT [facility] Heroin/6-CHUNG Negative Negative 07/16/2024 11:24 PM EDT [facility] Hydrocodone Positive(A) Negative 07/16/2024 11:24 PM EDT [facility] Hydroxyzine / Cetirizine metabolite Negative Negative 07/16/2024 11:24 PM EDT [facility] Ibuprofen Negative Negative 07/16/2024 11:24 PM EDT [facility] Imipramine Negative Negative 07/16/2024 11:24 PM EDT [facility] Ketamine Negative Negative 07/16/2024 11:24 PM EDT [facility] Labetolol Negative Negative 07/16/2024 11:24 PM EDT [facility] Lamotrigine Negative Negative 07/16/2024 11:24 PM EDT [facility] Levetiracetam Negative Negative 07/16/2024 11:24 PM EDT [facility] Lidocaine Negative Negative 07/16/2024 11:24 PM EDT [facility] MDA Negative Negative 07/16/2024 11:24 PM EDT [facility] MDMA Negative Negative 07/16/2024 11:24 PM EDT [facility] Memantine Negative Negative 07/16/2024 11:24 PM EDT [facility] Meperidine Negative Negative 07/16/2024 11:24 PM EDT [facility] Meprobamate Negative Negative 07/16/2024 11:24 PM EDT [facility] Metaxalone Negative Negative 07/16/2024 11:24 PM EDT [facility] Methamphetamine Negative Negative 11:24 PM EDT [facility] Methocarbamol Negative Negative 07/16/2024 11:24 PM EDT [facility] Methylecgonine Negative Negative 07/16/2024 11:24 PM EDT [facility] Metoclopramide Negative Negative 07/16/2024 11:24 PM EDT [facility] Metoprolol Positive(A) Negative 07/16/2024 11:24 PM EDT [facility] Metronidazole Negative Negative 07/16/2024 11:24 PM EDT [facility] Midazolam Negative Negative 07/16/2024 11:24 PM EDT [facility] Midazolam Metabolite Negative Negative 07/16/2024 11:24 PM EDT [facility] Mirtazapine Negative Negative 07/16/2024 11:24 PM EDT [facility] Misc Test Result Positive(A) Negative 025 11:24 PM EDT [facility] Comment: Hydromorphone detected. Gabapentin detected. Hydroxyzine metabolite/Cetirizine metabolite detected. Naproxen Negative Negative 07/16/2024 11:24 PM EDT [facility] Nefazodone Negative Negative 07/16/2024 11:24 PM EDT [facility] Norfentanyl Negative Negative 07/16/2024 11:24 PM EDT [facility] Nortriptyline Negative Negative 07/16/2024 11:24 PM EDT [facility] Ordanstron Negative Negative 07/16/2024 11:24 PM EDT [facility] Oxcarbazepine Negative Negative 07/16/2024 11:24 PM EDT [facility] Oxycodone Negative Negative 07/16/2024 11:24 PM EDT [facility] Paroxethine Negative Negative 07/16/2024 11:24 PM EDT [facility] Phenobarbital Negative Negative 07/16/2024 11:24 PM EDT [facility] Phentermine Negative Negative 07/16/2024 11:24 PM EDT [facility] Phenytoin Negative Negative 07/16/2024 11:24 PM EDT [facility] Primidone Negative Negative 07/16/2024 11:24 PM EDT [facility] Promethazine Negative Negative 07/16/2024 11:24 PM EDT [facility] Propofol Negative Negative 07/16/2024 11:24 PM EDT [facility] Propranolol Negative Negative 07/16/2024 11:24 PM EDT [facility] Quetiapine Negative Negative 07/16/2024 11:24 PM EDT [facility] Quinine Negative Negative 07/16/2024 11:24 PM EDT [facility] Rantidine Negative Negative 07/16/2024 11:24 PM EDT [facility] Sertraline Negative Negative 07/16/2024 11:24 PM EDT [facility] Spironolactone Negative Negative 07/16/2024 11:24 PM EDT [facility] Tizanidine Negative Negative 07/16/2024 11:24 PM EDT [facility] Topiramate Negative Negative 07/16/2024 11:24 PM EDT [facility] Tramadol Negative Negative 07/16/2024 11:24 PM EDT [facility] Trazadone/ Trazadone metabolite Negative Negative 07/16/2024 11:24 PM EDT [facility] Trimethoprim Negative Negative 07/16/2024 11:24 PM EDT [facility] Valproic Acid Negative Negative 07/16/2024 11:24 PM EDT [facility] Venlafaxine Negative Negative 07/16/2024 11:24 PM EDT [facility] Verapamil Negative Negative 07/16/2024 11:24 PM EDT [facility] Zolpidem Negative Negative 07/16/2024 11:24 PM EDT [facility] Xylazine Negative Negative 07/16/2024 11:24 PM EDT [facility] Urine Urine specimen obtained by clean catch procedure / Unknown Non-blood Collection / Unknown 07/15/2024 8:33 PM EDT 07/15/2024 8:52 PM EDT us Victor M Deshpande APRN LAB URINE ORDERABLES Final Re sult [facility] [address] [place] [address] * (ABNORMAL) Urinalysis with reflex microscopic (Culture NOT Included) (07/15/2024 8:33 PM EDT) Color, Urine Yellow LAB URINALYSIS - AUTOMATED METHOD 07/15/2024 8:50 PM EDT [facility] Clarity, Urine Clear LAB URINALYSIS - AUTOMATED METHOD 07/15/2024 8:50 PM EDT [facility] Spec [place], Urine 1.016 1.005 - 1.030 LAB URINALYSIS - AUTOMATED METHOD 07/15/2024 8:50 PM EDT [facility] pH, Urine 6.5 5.0 - 8.0 LAB URINALYSIS - AUTOMATED METHOD 07/15/2024 8:50 PM EDT [facility] Protein, Urine 30(A) Negative mg/dL LAB URINALYSIS - AUTOMATED METHOD 07/15/2024 8:50 PM EDT [facility] Glucose, Urine Negative Negative mg/dL LAB URINALYSIS - AUTOMATED METHOD 07/15/2024 8:50 PM EDT [facility] Ketones, Urine Negative Negative mg/dL LAB URINALYSIS - AUTOMATED METHOD 07/15/2024 8:50 PM EDT [facility] Blood, Urine Negative Negative LAB URINALYSIS - AUTOMATED METHOD 07/15/2024 8:50 PM EDT [facility] Bilirubin, Urine Negative Negative LAB URINALYSIS - AUTOMATED METHOD 07/15/2024 8:50 PM EDT [facility] Urobilinogen, Urine 1.0 0.2 to 1.0 mg/dL LAB URINALYSIS - AUTOMATED METHOD 07/15/2024 8:50 PM EDT [facility] Leukocytes, Urine Negative Negative LAB URINALYSIS - AUTOMATED METHOD 07/15/2024 8:50 PM EDT [facility] Nitrite, Urine Negative Negative LAB URINALYSIS - AUTOMATED METHOD 07/15/2024 8:50 PM EDT [facility] Urine Urine specimen obtained by clean catch procedure / Unknown Non-blood Collection / Unknown 07/15/2024 8:33 PM EDT 07/15/2024 8:47 PM EDT us Hans Stephenson MD LAB URINE ORDERABLES Final Result [facility] [address] [place] [address] * Blood Culture (Aerobic/Anaerobet Set) (07/15/2024 7:49 PM EDT) Only the most recent of2 resultswithin the time period is included. Culture No growth at day 5 07/20/2024 9:01 PM EDT [facility] Blood Venous blood specimen / Unknown Venipuncture / Unknown 07/15/2024 7:49 PM EDT 07/15/2024 8:07 PM EDT Victor M Deshpande APRN LAB MICROBIOLOGY - GENERAL OR DERABLES Final Result [facility] [address] [place] [address] * (ABNORMAL) Blood gas panel, venous (07/15/2024 7:49 PM EDT) pH, Venous 7.45(H) 7.32 - 7.43 LAB HEMATOLOGY METHOD 07/15/2024 7:56 PM EDT [facility] pCO2, Venous 44 40 - 55 mmHg LAB HEMATOLOGY METHOD 07/15/2024 7:56 PM EDT [facility] pO2, Venous 51(H) 25 - 40 mmHg LAB HEMATOLOGY METHOD 07/15/2024 7:56 PM EDT [facility] SO2, Measured, Venous 87(H) 65 - 80 % LAB HEMATOLOGY METHOD 07/15/2024 7:56 PM EDT [facility] Base Excess, Venous 6.0(H) -2.0 - 3.0 mmol/L LAB HEMATOLOGY METHOD 07/15/2024 7:56 PM EDT [facility] Bicarbonate, Calculated, Venous 31(H) 22 - 26 mmol/L LAB HEMATOLOGY METHOD 07/15/2024 7:56 PM EDT [facility] Hematocrit, Whole Blood 31.3(L) 40.0 - 51.0 % LAB HEMATOLOGY METHOD 07/15/2024 7:56 PM EDT [facility] Sodium, Whole Blood 138 136 - 145 mmol/L LAB HEMATOLOGY METHOD 07/15/2024 7:56 PM EDT [facility] Potassium, Whole Blood 3.6 3.6 - 4.9 mmol/L LAB HEMATOLOGY METHOD 07/15/2024 7:56 PM EDT [facility] Chloride, Whole Blood 101 97 - 107 mmol/L LAB HEMATOLOGY METHOD 07/15/2024 7:56 PM EDT [facility] Glucose, Whole Blood 243(H) 74 - 99 mg/dL LAB HEMATOLOGY METHOD 07/15/2024 7:56 PM EDT [facility] Lactate, Venous, Whole Blood 0.7 0.5 - 2.2 mmol/L LAB HEMATOLOGY METHOD 07/15/2024 7:56 PM EDT [facility] Ionized Calcium, Whole Blood 4.6 4.6 - 5.1 mg/dL LAB HEMATOLOGY METHOD 07/15/2024 7:56 PM EDT [facility] Blood Venous blood specimen / Unknown Venipuncture / Unknown 07/15/2024 7:49 PM EDT 07/15/2024 7:54 PM EDT us Victor M Deshpande APRN LAB BLOOD ORDERABLES Final Re sult [facility] [address] [place] [address] * (ABNORMAL) Troponin T, High Sensitivity, 2 Hour, Plasma (07/15/2024 7:11 PM EDT) Troponin T, High Sensitivity, 2 Hour 48(H) <19 ng/L 07/15/2024 7:49 PM EDT [facility] Troponin Delta 7 <10 ng/L 07/15/2024 7:49 PM EDT [facility] Troponin Delta Interpretation Not Significant 07/15/2024 7:49 PM EDT [facility] Comment:Not Significant. No acute change in troponin observed between the baseline and 2 hour samples. Blood Venous blood specimen / Unknown Venipuncture / Unknown 07/15/2024 7:11 PM EDT 07/15/2024 7:21 PM EDT us Hans Stephenson MD LAB BLOOD ORDERABLES Final Result Performing Organization Address City/[facility]/ZIP Co de Phone Number [facility] [address] [place] [address] * CT Face wo IV Contrast (07/15/2024 [...] Total DLP (Dose-Length Product): 3621.63 mGy.cm (accession [id number]), 3621.63 mGy.cm (accession [id number]), 3621.63 mGy.cm (accession [id number]), 3621.63 mGy.cm (accession [id number]), 3621.63 mGy.cm (accession [id number]). Please note: The reported value represents the [...] Total DLP (Dose-Length Product): 3621.63 mGy.cm (accession [id number]),3621.63 mGy.cm (accession [id number]), 3621.63 mGy.cm (accession [id number]),3621.63 mGy.cm (accession [id number]), 3621.63 mGy.cm (accession [id number]).Please note: The reported value represents the total [...] Total DLP (Dose-Length Product): 3621.63 mGy.cm (accession [id number]), 3621.63 mGy.cm (accession [id number]), 3621.63 mGy.cm (accession [id number]), 3621.63 mGy.cm (accession [id number]), 3621.63 mGy.cm (accession [id number]). Please note: The reported value represents the [...] Total DLP (Dose-Length Product): 3621.63 mGy.cm (accession [id number]),3621.63 mGy.cm (accession [id number]), 3621.63 mGy.cm (accession [id number]),3621.63 mGy.cm (accession [id number]), 3621.63 mGy.cm (accession [id number]).Please note: The reported value represents the total [...] Total DLP (Dose-Length Product): 3621.63 mGy.cm (accession [id number]), 3621.63 mGy.cm (accession [id number]), 3621.63 mGy.cm (accession [id number]), 3621.63 mGy.cm (accession [id number]), 3621.63 mGy.cm (accession [id number]). Please note: The reported value represents the [...] Total DLP (Dose-Length Product): 3621.63 mGy.cm (accession [id number]),3621.63 mGy.cm (accession [id number]), 3621.63 mGy.cm (accession [id number]),3621.63 mGy.cm (accession [id number]), 3621.63 mGy.cm (accession [id number]).Please note: The reported value represents the total [...] Total DLP (Dose-Length Product): 3621.63 mGy.cm (accession [id number]), 3621.63 mGy.cm (accession [id number]), 3621.63 mGy.cm (accession [id number]), 3621.63 mGy.cm (accession [id number]), 3621.63 mGy.cm (accession [id number]). Please note: The reported value represents the [...] Total DLP (Dose-Length Product): 3621.63 mGy.cm (accession [id number]),3621.63 mGy.cm (accession [id number]), 3621.63 mGy.cm (accession [id number]),3621.63 mGy.cm (accession [id number]), 3621.63 mGy.cm (accession [id number]).Please note: The reported value represents the total [...] Total DLP (Dose-Length Product): 3621.63 mGy.cm (accession [id number]), 3621.63 mGy.cm (accession [id number]), 3621.63 mGy.cm (accession [id number]), 3621.63 mGy.cm (accession [id number]), 3621.63 mGy.cm (accession [id number]). Please note: The reported value represents the [...] Total DLP (Dose-Length Product): 3621.63 mGy.cm (accession [id number]),3621.63 mGy.cm (accession [id number]), 3621.63 mGy.cm (accession [id number]),3621.63 mGy.cm (accession [id number]), 3621.63 mGy.cm (accession [id number]).Please note: The reported value represents the total [...] 120 min (07/15/2024 5:03 PM EDT) Pathologist [facility] [place] Troponin T, High Sensitivity, 0 Hour 41(H) <19 ng/L 07/15/2024 5:58 PM EDT [facility] Blood Venous blood specimen / Unknown Venipuncture / Unknown 07/15/2024 5:03 PM EDT 07/15/2024 5:20 PM EDT Hans Stephenson MD LAB BLOOD ORDERABLES Final Result Performing Organization Address City/[facility]/[place] [address] * (ABNORMAL) Lipase (07/15/2024 5:03 PM EDT) [facility] Lipase, Plasma 7(L) 19 - 63 U/L 07/15/2024 6:17 PM EDT [facility] Blood Venous blood specimen / Unknown Venipuncture / Unknown 07/15/2024 5:03 PM EDT 07/15/2024 5:20 PM EDT Hnas Stephenson MD LAB BLOOD ORDERABLES Final Result Performing Organization Address City/[facility] [place] [address] * CT NEURO OUTSIDE IMAGES (07/15/2024 9:56 [...] Antibody Negative Negative 08/31/2023 5:36 PM EDT [facility] Blood Venous blood specimen / Unknown Venipuncture / Unknown 08/31/2023 4:18 PM EDT 08/31/2023 4:54 PM EDT us Roderick Capone MD LAB BLOOD ORDERABLES Final Result [facility] [address] [place] [address] from Last 3 Months or Most Recently Relevant to Health Maintenance Additional Health Concerns Infection Onset Date 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 Source: [facility]. 02/22/2017 07/15/2024 [place] [address] [employer] Advance Directives * DNR/DNI (Latest Code Status [...] updated to appropriate status: Yes Care Teams Personal Banking Representative Relationship Specialty Start Date End Date Elijah Serra DO [address] [place] [address] PCP - General Suspect Artist Supervisor 12/01/22 Nancy Trammell LPN [facility] TCM Nurse 07/23/24
--- OUTSIDE RECORDS SUMMARY | 2024-08-20 15:28 | XMS_ITS | Encounter Summary ---
Author Organization [facility] Address [address] [place] [address] Support Name Relationship Address Phone Stepan Gold Personal Relationship [address] [place] [address] Mi Gold Personal Relationship Unknown Rosalind Mai Personal Relationship Unknown + [phone] Vivi Ward Personal Relationship Unknown [phone] Care Team Providers Care Senior Ssis Developer Name Role Phone Yehuda Barger MD Primary Care Provider [phone] [place] Crum DO Primary Care Provider Miky Benton MD Primary Care Provider [phone] Provider, Historical Unavailable Unavailable Willi Templeton MD Unavailable [phone] María Andre MD Unavailable [phone] Selene Rodriguez EXTRUSION PROCESS OPERATOR Unavailable Mariah Flowers EXTRUSION PROCESS OPERATOR Unavailable [phone] Neyda Beltran MD Unavailable [phone] Ryanne Roblero MD Unavailable Unavailable Mi [place] APRN Unavailable [phone] Elijah Serra DO Primary Care Provider [phone] Micha [place] MD Unavailable Encounter Details Date Type Department Care Team (Late st Contact Info) Description 09/17/1997 Historical Encounter Global Yehuda Barger MD [address] [place] [address] Social History Tobacco Use Types Packs/Day Years [...] Office Visit [facility] Endocrinology [place] [address] [place], [facility] [place] [address], [address] [place] [phone] Micha [place] MD [address] [place] [address] [place] [address] Molly Figueroa PA-C [address] [place] [address] [place] [address] documented as of this encounter Visit Diagnoses Not on filedocumented in this encounter Additional Health Concerns Infection Onset Date Last Indicated Resolved Time 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 02/24/2017 02/22/2017 02/22/2017 04/02/2024 9:[address] documented as of this encounter Care Teams Senior Ssis Developer Relationship Specialty Start Date End Date Yehuda Barger MD [address] [place] [address] PCP - General 02/16/09 04/13/23 [place] Crum DO [address] [place] [address] PCP - General 01/08/09 02/15/09 Miky Louis MD [address] [place] [address] PCP - General 12/26/07 01/07/09 Elijah Serra DO [address] [place] [address] PCP - General Family Medicine 07/21/23 Provider, Historical 02/16/16 08/25/16 Willi Templeton MD [address] [facility] [address] [place] [address] Gastroenterology 02/25/16 María Andre MD [address] [place] [address] [address] [place] [address] Gastroenterology 03/08/16 Selene Rodriguez APRN [address] [place] [address] Gastroenterology 08/23/16 Mariah Flowers APRN [address] [place] [address] [address] [place] [address] Nurse Practitioner 08/26/16 Neyda Beltran MD [address] [address] [place] [address] Nephrology 03/17/17 Ryanne Roblero MD [address] [address] [place] [address] Rheumatology 03/01/18 Mi [place] APRN [address] [place] [address] [address] [place] [address] Nurse Practitioner Nurse Practitioner 04/16/19 Micha [place] MD [address] [place] [address] [address] [place] [address] Endocrinology 08/06/24 08/06/24 documented as of this encounter
--- OUTSIDE RECORDS SUMMARY | 2024-08-20 15:28 | XMS_ITS | Encounter Summary ---
Author Organization [facility] Address [address] [place] [address] Support Name Relationship Address Phone Stepan Gold Personal Relationship [address] [place] [address] Mi Gold Personal Relationship Unknown Rosalind Mai Personal Relationship Unknown [phone] Vivi Ward Personal Relationship Unknown [phone] Care Team Providers Care Storehouse Clerk Name Role Phone Yehuda Baregr MD Primary Care Provider [phone] [place] Crum DO Primary Care Provider Miky Benton MD Primary Care Provider [phone] Provider, Historical Unavailable Unavailable Willi Templeton MD Unavailable [phone] María Andre MD Unavailable [phone] Selene Rodriguez BIOMEDICAL ENGINEERING AIDE Unavailable Mariah Flowers BIOMEDICAL ENGINEERING AIDE Unavailable [phone] Neyda Beltran MD Unavailable [phone] Ryanne Roblero MD Unavailable Unavailable Mi [place] APRN Unavailable [phone] Elijah Serra DO Primary Care Provider [phone] Micha [place] MD Unavailable Encounter Details Date Type Department Care Team (Late st Contact Info) Description 12/24/2001 Historical Encounter Global Yehuda Barger MD [address] [place] [address] Social History Tobacco Use Types Packs/Day Years [...] Description 11/06/2024 11:00 AM EDT Office Visit [facility] Endocrinology [place] [address] [place], [facility] [place], [address] [place] [phone] Micha [place] MD [address] [place] [address] [place] [address] Molly Figueroa PA-C [address] [place] [address] [place] [address] documented as of this encounter Visit Diagnoses Not on filedocumented in this encounter Additional Health Concerns Infection Onset Date Last Indicated Resolved Time 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 02/24/2017 02/22/2017 02/22/2017 04/02/2024 9:[address] documented as of this encounter Care Teams Storehouse Clerk Relationship Specialty Start Date End Date Yehuda Barger MD [address] [place] [address] PCP - General 02/16/09 04/13/23 [place] Crum DO [address] [place] [address] PCP - General 01/08/09 02/15/09 Miky Louis MD [address] [place] [address] PCP - General 12/26/07 01/07/09 Elijah Serra DO 100 [place] [address] PCP - General Family Medicine 07/21/23 Provider, Historical 02/16/16 08/25/16 Willi Templeton MD [address] [facility] [address] [place] [address] Gastroenterology 02/25/16 María Andre MD [address] [place] [address] [address] [place] [address] Gastroenterology 03/08/16 Selene Rodriguez APRN [address] [place] [address] Gastroenterology 08/23/16 Mariah Flowers APRN [address] [place] [address] [address] [place] [address] Nurse Practitioner 08/26/16 Neyda Beltran MD [address] [address] [place] [address] Nephrology 03/17/17 Ryanne Roblero MD [address] [address] [place] [address] Rheumatology 03/01/18 Mi [place] APRN [address] [place] [address] [address] [place] [address] Nurse Practitioner Nurse Practitioner 04/16/19 Micha [place] MD [address] [place] [address] [address] [place] [address] Endocrinology 08/06/24 08/06/24 documented as of this encounter
--- OUTSIDE RECORDS SUMMARY | 2024-08-20 15:28 | XMS_ITS | Data Portability ---
Author Organization [facility], DME [facility] Address [address] [place] [address] Care Team Providers Care Beater Room Supervisor Name Role Phone EVANGELINA HOUSTON Primary Care Provider [phone] Assessment Encounter Date Assessment Date Assessment LastModified [...] 1 view 023 08/28/19 23 [email or web address] Loc [facility], [address], [place], [address], 16:12:04 Medication Orders None record ed. Patient TargetsNo targets recorded. Patient Instructions Encounter Date Encounter Id Patient Instructions Last Modified By Organization Details Last Modified Time 08/27/2022 [id number] I explained to this patient that his [...] a left posterior acetabular revision done at [facility]. He would need cardiac clearance [email or web address] Not available 08/27/2022 16:11:18 Reason for Referral None Reported. Results Created Date Observation Date Name Description Value Unit Range Abnormal Flag Note LastModifiedBy Organization Detail LastModifiedTime 08/28/19 23 08/27/2022 XR, hip + pelvi s, unila teral , 1 view No observ ation record ed. [email or web address] [facility] [address], [place], [address], 08/27/2022 16:10:17 Result Notes None recorded. Problems Name Problem SNOMED Code Status Onset Date Resolution Date Notes Provider Name and Address Organization Details Recorded Time Pain of left hip joint 622809690165472 Active 2022 Mi Aparicio [facility] 15:30:37 Problem Notes None recorded. Procedures Surgical History Date Name Laterality Status Provider Name and Address Organization Details Recorded Time 09/17/19 Carpal Tunnel Surgery completed MD [address], [place], [address], [facility] 08/27/2022 15:16:12 05/18/19 20 Cataract Surgery completed MD [address], [place], [address], [facility] 08/27/2022 15:16:12 11/22/19 06 Knee Replacement completed MD [address], [place], [address], [facility] 08/27/2022 15:16:12 11/22/19 01 Cardiovascular Surgery completed MD [address], [place], [address], [facility] 08/27/2022 15:16:12 09/21/18 91 Hip Replacement completed Horacio Rodriguez MD [address], [place], [address], [facility] 08/27/2022 15:16:12 09/21/18 66 Thyroid Surgery completed Horacio Rodriguez MD [address], [place], [address], [facility] 08/27/2022 15:16:12 [...] Available Flonase 50 mcg/Actuatio n nasl susp [place] 1 spray every day by intranasal route. [...] Smoking Status Never Smoker Horacio Rodriguez MD [address], [address], [facility] 08/27/2022 15:16:07 Do [...] Do You Have A Medical Power Of Oil Well Service Operator? Yes Information not available 08/27/2022 Have You [...] History Nothing Reported. Medical History Condition Response Diabetes Y Coronary Artery Disease Y Gout Y Thyroid Disease Y Arthritis Y High Cholesterol Y MRSA Y Heart Attack (SD) Y Heart Disease Y Rheumatoid Arthritis Y Gastrointestinal Disease/GERD Y Kidney Disease Y Past Encounters Encounter ID Performer Location Encounter Start Date Encounter Closed Date Diagnosis/Indication Diagnosis SNOMED-CT Code Diagnosis ICD10 Code Diagnosis Note [id number] Horacio Rodriguez MD [facility] [place] [facility] [address] [facility] [address] [place] [id number] 08/27/2022 15:07:23 08/27/2022 15:49:02 Pain of left hip joint [id number] 68939 M25.552 Health Concerns Section Related Observation LastModified by Organization Detai ls LastModified Time None Recorded Concern Status LastModified by Organization Details LastModified Time None Recorded Advance Directives Directive Y: Payers Insurance Date Sequence Insurance Name Policy Number Policy Coleman Covered Member ID Coleman Member ID Guarantor Name 08/27/2022 2 [employer] (MEDICARE SUPPLEMENT) Obdulio Gold [id number] Obdulio Gold 08/27/2022 1 [place] Obdulio Gold [id number] Obdulio Gold Notes Date Note Type Note [...] leg. Horacio Rodriguez MD [address] [facility] [place], [address], [facility] 08/27/2022 16:12:06
--- OUTSIDE RECORDS SUMMARY | 2024-08-20 15:28 | XMS_ITS | Encounter Summary ---
Author Organization [facility] Address [address] [place] [address] Support Name Relationship Address Phone Stepan Gold Personal Relationship [address] [place] [address] Mi Gold Personal Relationship Unknown Rosalind Mai Personal Relationship Unknown [phone] Vivi Ward Personal Relationship Unknown Care Team Providers Care Brake Operator Sheet Metal Name Role Phone Yehuda Barger MD Primary Care Provider [phone] [place] Crum DO Primary Care Provider Miky Benton MD Primary Care Provider [phone] Provider, Historical Unavailable Unavailable Willi Templeton MD Unavailable [phone] María Andre MD Unavailable [phone] Selene Rodriguez MEDICAL CERTIFICATION SPECIALIST Unavailable Mariah Flowers MEDICAL CERTIFICATION SPECIALIST Unavailable [phone] Neyda Beltran MD Unavailable +[phone] Ryanne Roblero MD Unavailable Unavailable Mi [place] APRN Unavailable [phone] Elijah Serra DO Primary Care Provider [phone] Micha [place] MD Unavailable Encounter Details Date Type Department Care Team (Late st Contact Info) Description 11/28/2001 Historical Encounter Global Yehuda Barger MD [address] [place] [address] Social History Tobacco Use Types Packs/Day Years [...] Description 11/06/2024 11:00 AM EDT Office Visit [facility] Endocrinology [place] [address] [place], [facility] [place] [address], [address] [place] [phone] Micha [place] MD [address] [place] [address] [place] [address] Molly Figueroa PA-C [address] [place] [address] [place] [address] documented as of this encounter Visit Diagnoses Not on filedocumented in this encounter Additional Health Concerns Infection Onset Date Last Indicated Resolved Time 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 02/24/2017 02/22/2017 02/22/2017 04/02/2024 9:[address] documented as of this encounter Care Teams Brake Operator Sheet Metal Relationship Specialty Start Date End Date Yehuda Barger MD [address] [place] [address] PCP - General 02/16/09 04/13/23 [place] Crum DO [address] [place] [address] PCP - General 01/08/09 02/15/09 Miky Louis MD [address] [place] [address] PCP - General 12/26/07 01/07/09 Elijah Serra DO [address] [place] [address] PCP - General Family Medicine 07/21/23 Provider, Historical 02/16/16 08/25/16 Willi [place] MD [address] [facility] [address] [place] [address] Gastroenterology 02/25/16 María Andre MD [address] [place] [address] [address] [place] [address] Gastroenterology 03/08/16 Selene Rodriguez APRN [address] [place] [address] Gastroenterology 08/23/16 Mariah Flowers APRN [address] [place] [address] [address] [place] [address] Nurse Practitioner 08/26/16 Neyda Beltran MD [address] [address] [place] [address] Nephrology 03/17/17 Ryanne Roblero MD [address] [address] [place] [address] Rheumatology 03/01/18 Mi [place] APRN [address] [place] [address] [address] [place] [address] Nurse Practitioner Nurse Practitioner 04/16/19 Micha [place] MD [address] [place] [address] [address] [place] [address] Endocrinology 08/06/24 08/06/24 documented as of this encounter
--- OUTSIDE RECORDS SUMMARY | 2024-08-20 15:28 | XMS_ITS | Encounter Summary ---
Author Organization [facility] Address [address] [place] [address] Support Name Relationship Address Phone Stepan Gold Personal Relationship [address] [place] [address] Mi Gold Personal Relationship Unknown Rosalind Mai Personal Relationship Unknown + [phone] Vivi Ward Personal Relationship Unknown [phone] Care Team Providers Care Wireless Consultant Name Role Phone Yehuda Barger MD Primary Care Provider [phone] [place] Crum DO Primary Care Provider Miky Benton MD Primary Care Provider [phone] Provider, Historical Unavailable Unavailable Willi Templeton MD Unavailable [phone] María Andre MD Unavailable [phone] Selene Rodriguez HOUSE SUPERVISOR Unavailable +[phone] Mariah Flowers HOUSE SUPERVISOR Unavailable [phone] Neyda Beltran MD Unavailable [phone] Ryanne Roblero MD Unavailable Unavailable Mi [place] APRN Unavailable [phone] Elijah Serra DO Primary Care Provider [phone] Micha [place] MD Unavailable Encounter Details Date Type Department Care Team (Late st Contact Info) Description 10/20/2000 Historical Encounter Global Agustín Quiñones MD [address] [place] [id number] Social History Tobacco Use Types Packs/Day Years [...] AM EDT Office Visit [facility] [address], [facility] [place] [address], [address] [place] [address] Micha [place] MD [address] [place] [address] [place] [id number] Molly Figueroa PA-C [address] [place] [address] [place] [phone] documented as of this encounter Visit Diagnoses Not on filedocumented in this encounter Additional Health Concerns Infection Onset Date Last Indicated Resolved Time 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 02/24/2017 02/22/2017 02/22/2017 04/02/2024 9:[address] documented as of this encounter Care Teams Wireless Consultant Relationship Specialty Start Date End Date Yehuda Barger MD [address] [place] [address] [address] [facility] [place] [address] PCP - General 02/16/09 04/13/23 [place] Crum DO [address] [place] [address] [facility] [place] [address] PCP - General 01/08/09 02/15/09 Miky Louis MD [address] [facility] [place] [address] PCP - General 12/26/07 01/07/09 Elijah Serra DO 100 [place] [address] PCP - General Family Medicine 07/21/23 Provider, Historical 02/16/16 08/25/16 Willi Templeton MD [address] [place] [address] Gastroenterology 02/25/16 María Andre MD 613 [facility] [address] [place], [place] [address] Gastroenterology 03/08/16 Selene Rodriguez APRN [address] [place] [address] [address] [place] [address] Gastroenterology 08/23/16 Mariah Flowers APRN [address] [place] [address] [address] [place] [address] Nurse Practitioner 08/26/16 Neyda Beltran MD [address] [facility] [address] [place] [address] Nephrology 03/17/17 Ryanne Roblero MD [address] [place] [address] [address] [place] [address] Rheumatology 03/01/18 Mi [place] APRN [address] [place] [address] [address] [place] [phone] Nurse Practitioner Nurse Practitioner 04/16/19 Micha [place] MD [address] [place] [address] [address] [place], [place] [id number] Endocrinology 08/06/24 08/06/24 documented as of this encounter
--- OUTSIDE RECORDS SUMMARY | 2024-08-20 15:28 | XMS_ITS | Encounter Summary ---
Author Organization Healthcare Address [address] [id number] Care Team Providers Care Header Operator Name Role Phone Ponce, Elijah Claudia VASQUES Primary Care Provider Nancy Trammell LPN Unavailable Unavailabl e Reason for Visit * Reason Comments Follow-up Encounter Details Date Type Department Care Team (Late st Contact Info) Description 08/02/2024 Patient Outreach [facility] [address] [place] [address] Nancy Trammell, [facility] Follow-up Social History [...] time in the past 12 m [facility], were you homeless or living in a correction (including now)? No 07/16/2024 Utilities Answer Date [...] Time MRSA Comment:Added from external infection. Source: [facility]. 02/22/2017 07/15/2024 Assessment Noted Time A Body Mass Index follow-up plan has been documented for the patient 07/20/2024 1:44 PM EDT documented as of this encounter Care Teams Header Operator Relationship Specialty Start Date End Date Elijah Serra DO [address] [place] [address] PCP - General Billing Assistant 12/01/22 Nancy Trammell LPN [facility] TCM Nurse 07/23/24 documented as of this encounter
--- OUTSIDE RECORDS SUMMARY | 2024-08-20 15:28 | XMS_ITS | Encounter Summary ---
Author Organization [facility] Address [address] [place] [address] Support Name Relationship Address Phone Stepan Gold Personal Relationship [address] [place] [address] Mi Gold Personal Relationship Unknown [phone] Rosalind Mai Personal Relationship Unknown + [phone] Vivi Ward Personal Relationship Unknown [phone] Care Team Providers Care Him Analyst Name Role Phone Yehuad Barger MD Primary Care Provider [phone] Milton Crum DO Primary Care Provider Miky Benton MD Primary Care Provider [phone] Provider, Historical Unavailable Unavailable Willi Templeton MD Unavailable [phone] María Andre MD Unavailable [phone] Selene Rodriguez SENIOR INFORMATICA ETL DEVELOPER Unavailable [phone] Mariah Flowers SENIOR INFORMATICA ETL DEVELOPER Unavailable [phone] Neyda Beltran MD Unavailable [phone] Ryanne Roblero MD Unavailable Unavailable Mi Martin APRN Unavailable [phone] Elijah Serra DO Primary Care Provider [phone] Micha [place] MD Unavailable Encounter Details Date Type Department Care Team (Late st Contact Info) Description 03/30/2002 Historical Encounter [facility] Social History Tobacco Use Types Packs/Day Years [...] [facility] [address], [facility] John, [address] [place] [phone] Micha [place] MD [address] [place] [address] [place] [address] [phone] Molly Figueroa PA-C [address] [place] [address] [phone] documented as of this encounter Visit Diagnoses Not on filedocumented in this encounter Additional Health Concerns Infection Onset Date Last Indicated Resolved Time 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 02/24/2017 02/22/2017 02/22/2017 04/02/2024 9:[address] documented as of this encounter Care Teams Him Analyst Relationship Specialty Start Date End Date Yehuda Barger MD [address] [place] [address] [place] [address] PCP - General 02/16/09 04/13/23 Milton Crum DO [address] [place] [address] [place] [address] PCP - General 01/08/09 02/15/09 Miky Louis MD [address] [facility] [place] [address] PCP - General 12/26/07 01/07/09 Elijah Serra DO 100 [place] [address] PCP - General Family Medicine 07/21/23 Provider, Historical 02/16/16 08/25/16 Willi [place] MD [address] [place] [address] [address] [facility] [place] [address] Gastroenterology 02/25/16 María Andre MD [address] [place] [address] [address] [facility] [place] [address] Gastroenterology 03/08/16 Selene Rodriguez APRN [address] [place] [address] Gastroenterology 08/23/16 Mariah Flowers APRN [address] [place] [address] 510 [place] [address] Nurse Practitioner 08/26/16 Neyda Beltran MD [address] [place] [address] [address] [facility] [place] [address] Nephrology 03/17/17 Ryanne Roblero MD [address] [place] [address] [address] [facility] [place] [address] Rheumatology 03/01/18 Mi Martin APRN [address] [place] [address] 102 [place] [phone] Nurse Practitioner Nurse Practitioner 04/16/19 Micha [place] MD [address] [place] [address] [address] [place] [address] Endocrinology 08/06/24 08/06/24 documented as of this encounter
--- OUTSIDE RECORDS SUMMARY | 2024-08-20 15:28 | XMS_ITS | Encounter Summary ---
Author Organization [facility] Address [address] [place] [address] Support Name Relationship Address Phone Stepan Gold Personal Relationship [address] [place] [address] Mi Gold Personal Relationship Unknown Rosalind Mai Personal Relationship Unknown + [phone] Vivi Ward Personal Relationship Unknown Care Team Providers Care Chief Of Police Name Role Phone Yehuda Barger MD Primary Care Provider [phone] Milton Crum DO Primary Care Provider Miky Benton MD Primary Care Provider [phone] Provider, Historical Unavailable Unavailable Willi Templeton MD Unavailable [phone] María Andre MD Unavailable [phone] Selene Rodriguez LEAD RELAY TESTER Unavailable Mariah Flowers LEAD RELAY TESTER Unavailable [phone] Neyda Beltran MD Unavailable [phone] Ryanne Roblero MD Unavailable Unavailable Mi Martin APRN Unavailable [phone] Elijah Serra DO Primary Care Provider [phone] Micha [place] MD Unavailable Encounter Details Date Type Department Care Team (Late st Contact Info) Description 03/11/2002 Historical Encounter Global Yehuda Barger MD [address] [place] [address] Social History Tobacco Use Types Packs/Day Years [...] EDT Office Visit [facility]ology [place] [address] [place], [facility] Brun[place] B, [address] [place] [phone] Micha [place] MD [address] [place] [address] [place] [address] Molly Figueroa PA-C [address] [place] [address] [place] [address] documented as of this encounter Visit Diagnoses Not on filedocumented in this encounter Additional Health Concerns Infection Onset Date Last Indicated Resolved Time 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 02/24/2017 02/22/2017 02/22/2017 04/02/2024 9:[address] documented as of this encounter Care Teams Chief Of Police Relationship Specialty Start Date End Date Yehuda Barger MD [address] [place] [address] PCP - General 02/16/09 04/13/23 Milton Crum DO [address] [place] [address] PCP - General 01/08/09 02/15/09 Miky Louis MD [address] [place] [address] PCP - General 12/26/07 01/07/09 Elijah Serra DO 100 [place] [address] PCP - General Family Medicine 07/21/23 Provider, Historical 02/16/16 08/25/16 Willi [place] MD [address] [address] [place] [address] Gastroenterology 02/25/16 María Andre MD [address] [place] [address] [address] [place] [address] Gastroenterology 03/08/16 Selene Rodriguez APRN [address] [place] [address] Gastroenterology 08/23/16 Mariah Flowers APRN [address] [place] [address] 510 [place] [address] Nurse Practitioner 08/26/16 Neyda Beltran MD [address] [address] [place] [address] Nephrology 03/17/17 Ryanne Roblero MD [address] [address] [place] [address] Rheumatology 03/01/18 Mi Martin APRN [address] [place] [address] [address] [place] [phone] Nurse Practitioner Nurse Practitioner 04/16/19 Micha [place] MD [address] [place] [address] [address] [place] [address] Endocrinology 08/06/24 08/06/24 documented as of this encounter
--- OUTSIDE RECORDS SUMMARY | 2024-08-20 15:28 | XMS_ITS | Encounter Summary ---
Author Organization [facility] Address [address] [place] [address] Support Name Relationship Address Phone Stepan Gold Personal Relationship [address] [place] [address] Mi Gold Personal Relationship Unknown [phone] Rosalind Mai Personal Relationship Unknown [phone] Vivi Ward Personal Relationship Unknown Care Team Providers Care Bookkeeping Machine Mechanic Name Role Phone Yehuda Barger MD Primary Care Provider Provider, Historical Unavailable Unavailable Willi [place] MD Unavailable María Andre MD Unavailable Selene Rodriguez AUTO REPAIR TECHNICIAN Unavailable Mariah Flowers AUTO REPAIR TECHNICIAN Unavailable [phone] Neyda Beltran MD Unavailable Ryanne Roblero MD Unavailable Unavailable Mi Martin AUTO REPAIR TECHNICIAN Unavailable [phone] Elijah Serra DO Primary Care Provider [...] 11:00 AM EDT Office Visit [facility] [address] [place] [address], [facility] John, [address] [phone] Micha [place] MD [address] [place] [address] Molly Figueroa PA-C [address] [place] [address] documented as of this encounter Visit Diagnoses Not on filedocumented in this encounter Additional Health Concerns Infection Onset Date Last Indicated Resolved Time 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 02/24/2017 02/22/2017 02/22/2017 04/02/2024 9:[address] documented as of this encounter Care Teams Bookkeeping Machine Mechanic Relationship Specialty Start Date End Date Yehuda Barger MD [address] [place] [address] [facility] [place] [address] PCP - General 02/16/09 04/13/23 Elijah Serra DO [address] [place] [address] PCP - General Family Medicine 07/21/23 Provider, Historical 02/16/16 08/25/16 Willi [place] MD [address] [place] [address] [address] [place] [address] Gastroenterology 02/25/16 María Andre MD [address] [place] [address] [address] [place] [address] Gastroenterology 03/08/16 Selene Rodriguez APRN [address] [place] [address] 203 [place] [address] Gastroenterology 08/23/16 Mariah Flowers APRN [address] [place] [address] 510 [place] [address] Nurse Practitioner 08/26/16 Neyda Beltran MD [address] [place] [address] [address] [place] [address] Nephrology 03/17/17 Ryanne Roblero MD [address] [place] [address] [address] [place] [address] Rheumatology 03/01/18 Mi Martin APRN [address] [place] [address] 102 [place] [phone] Nurse Practitioner Nurse Practitioner 04/16/19 Micha [place] MD [address] [place] [address] [address] [place] [address] Endocrinology 08/06/24 08/06/24 documented as of this encounter
--- OUTSIDE RECORDS SUMMARY | 2024-08-20 15:28 | XMS_ITS | Encounter Summary ---
Author Organization [facility] Address [address] [id number] Care Team Providers Care Machine Turner Name Role Phone Ponce, Elijah Claudia VASQUES Primary Care Provider [phone] Nancy Trammell LPN Unavailable Unavailabl e Reason for Visit * Reason Comments TCM Call Encounter Details Date Type Department Care Team (Late st Contact Info) Description 07/23/2024 Patient Outreach [facility] [address], [address] [place] [address] Nancy Trammell LPN [facility] TCM Call Social History Tobacco [...] and Family Not on file 07/16/2024 Attends Taoism Services Not on file 07/16 Active Member [...] any time in the past 12 m [facility], were you homeless or living in a usp (including now)? No 07/16/2024 Utilities Answer Date Recorded In the past 12 months has th e [employer], gas, oil, or water [employer] threatened to shut off services in your [...] Time MRSA Comment:Added from external infection. Source: [facility]. 02/22/2017 07/15/2024 Assessment Noted Time A Body Mass Index follow-up plan has been documented for the patient 07/20/2024 1:44 PM EDT documented as of this encounter Care Teams Machine Turner Relationship Specialty Start Date End Date Elijah Serra DO [address] [place] [address] PCP - General Tour Coordinator 12/01/22 Nancy Trammell LPN [facility] TCM Nurse 07/23/24 documented as of this encounter
--- OUTSIDE RECORDS SUMMARY | 2024-08-20 15:28 | XMS_ITS | Encounter Summary ---
Author Organization [facility] Address [address] [place] [address] Support Name Relationship Address Phone Stepan Gold Personal Relationship [address] [place] [address] Mi Gold Personal Relationship Unknown Rosalind Mai Personal Relationship Unknown [phone] Vivi Ward Personal Relationship Unknown Care Team Providers Care Intraoperative Neuro Tech Name Role Phone Lesley [place] MD Primary Care Provider [phone] Provider, Historical Unavailable Unavailable Willi [place] MD Unavailable María Andre MD Unavailable Selene Rodriguez HITTING COACH Unavailable Mariah Flowers HITTING COACH Unavailable Neyda Beltran MD Unavailable Ryanne Roblero MD Unavailable Unavailable Mi Martin HITTING COACH Unavailable [phone] Elijah Serra DO Primary Care Provider [phone] Micha [place] MD Unavailable Reason for Visit * Reason Onset Date Comments Referral Status 08/09/2012 Encounter Details Date Type Department Care Team (Late st Contact Info) Description 08/09/[address] LESLEY GRACE MD, [address] [place] [address] Lesley [place] MD [address] [place] [address] B [place] [address] Referral Status Social History Tobacco Use Types [...] 11/06/2024 11:00 AM EDT Office Visit [address] [place], [address] [place], [place] [address] Micha [place] MD [address] [place] [address] [place] [address] Molly Figueroa PA-C [address] [place] [address] documented as of this encounter Visit Diagnoses Not on filedocumented in this encounter Additional Health Concerns Infection Onset Date Last Indicated Resolved Time 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 02/24/2017 02/22/2017 02/22/2017 04/02/2024 9:[address] documented as of this encounter Care Teams Intraoperative Neuro Tech Relationship Specialty Start Date End Date Lesley [place] MD [address] [place] [address] [address] [place] [address] PCP - General 02/16/09 04/13/23 Elijah Serra DO 100 [place] [address] PCP - General Family Medicine 07/21/23 Provider, Historical 02/16/16 08/25/16 Willi [place] MD [address] [place] [address] [address] [place] [address] Gastroenterology 02/25/16 María Andre MD [address] [place] [address] [address] [place] [address] Gastroenterology 03/08/16 Selene Rodriguez APRN [address] [place] [address] Gastroenterology 08/23/16 Mariah Flowers APRN [address] [place] [address] 510 [place] [address] Nurse Practitioner 08/26/16 Neyda Beltran MD [address] [place] [address] [address] [place] [address] Nephrology 03/17/17 Ryanne Roblero MD [address] [place] [address] [address] [place] [address] Rheumatology 03/01/18 iM Matrin APRN [address] [place] [address] 102 [place] [phone] Nurse Practitioner Nurse Practitioner 04/16/19 Micha [place] MD [address] [place] [address] Endocrinology 08/06/24 08/06/24 documented as of this encounter
--- NOTE | 2024-08-20 15:29 | XR_ITS ---
FINAL REPORT TECHNIQUE: Single view chest CLINICAL HISTORY: SOA COMPARISON: 03/19/2024 FINDINGS: A single view of the chest was obtained. The heart and mediastinum are within normal limits. There are bibasilar opacities, presumably corresponding to pneumonia seen on recent CT. There are minimal pleural effusions. Upper lobes are clear. There is no pneumothorax. IMPRESSION: Bibasilar pneumonia, minimally improved on the left. Reviewed, Interpreted and Dictated by Anjana Ortiz MD Transcribed by Radha Harrison Authenticated and [facility]
--- OUTSIDE RECORDS SUMMARY | 2024-08-20 15:29 | XMS_ITS | Encounter Summary ---
Author Organization [facility] Address [address] [place] [address] Support Name Relationship Address Phone Stepan Gold Personal Relationship [address] [place] [address] Mi Gold Personal Relationship Unknown Rosalind Mai Personal Relationship Unknown + [phone] Vivi Ward Personal Relationship Unknown [phone] Care Team Providers Care Corporate Sales Representative Name Role Phone Yehuda Barger MD Primary Care Provider [phone] Milton Crum DO Primary Care Provider Miky B[place] MD Primary Care Provider [phone] Provider, Historical Unavailable Unavailable Willi Templeton MD Unavailable [phone] María Andre MD Unavailable [phone] Selene Rodriguez CAUSTICISER Unavailable Mariah Flowers CAUSTICISER Unavailable [phone] Neyda Beltran MD Unavailable [phone] Ryanne Roblero MD Unavailable Unavailable Mi Martin APRN Unavailable Elijah Serra DO Primary Care Provider [phone] Micha [place] MD Unavailable Encounter Details Date Type Department Care Team (Late st Contact Info) Description 05/04/2007 Historical Encounter Global Yehuda Barger MD [address] [place] [address] Social History Tobacco Use Types Packs/Day Years [...] 11/06/2024 11:00 AM EDT Office Visit [facility] Endocrin[facility] [place] [address] [place], [facility] [place] B, [address] [place] [address] Micha [place] MD [address] [place] [address] [place] [address] Molly Figueroa PA-C [address] [place] [address] [place] [address] documented as of this encounter Visit Diagnoses Not on filedocumented in this encounter Additional Health Concerns Infection Onset Date Last Indicated Resolved Time 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 02/24/2017 02/22/2017 02/22/2017 04/02/2024 9:[address] documented as of this encounter Care Teams Corporate Sales Representative Relationship Specialty Start Date End Date Yehuda Barger MD [address] [place] [address] PCP - General 02/16/09 04/13/23 Milton Crum DO [address] [place] [address] PCP - General 01/08/09 02/15/09 Miky Louis MD [address] [place] [address] PCP - General 12/26/07 01/07/09 Elijah Serra DO 100 [place] [address] PCP - General Family Medicine 07/21/23 Provider, Historical 02/16/16 08/25/16 Willi [place] MD [address] [facility] [address] [place] [address] Gastroenterology 02/25/16 María Andre MD [address] [place] [address] [address] [place] [address] Gastroenterology 03/08/16 Selene Rodriguez APRN [address] [place] [address] Gastroenterology 08/23/16 Mariah Flowers APRN [address] [place] [address] 510 [place] [address] Nurse Practitioner 08/26/16 Neyda Beltran MD [address] [address] [place] [address] Nephrology 03/17/17 Ryanne Roblero MD [address] [address] [place] [address] Rheumatology 03/01/18 Mi Martin APRN [address] [place] [address] [address] [place] [phone] Nurse Practitioner Nurse Practitioner 04/16/19 Micha [place] MD [address] [place] [address] [address] [place] [address] Endocrinology 08/06/24 08/06/24 documented as of this encounter
--- OUTSIDE RECORDS SUMMARY | 2024-08-20 15:29 | XMS_ITS | Encounter Summary ---
Author Organization [facility] ([place], [place], [place], [place]) Address [address] [place] [address] Care Team Providers Care Cost Clerk Name Role Phone Elijah Serra DO Primary Care Provider [phone] Encounter Details Date Type Department Care Team (Late st Contact Info) Description 07/18/2021 Transcribed Document [facility] Family Medicine [address] [place] [address] ProviderMichael MD [address] [place] [address] Social History Tobacco Use Types [...] Do you speak a language other than Surinamese at [facility]? No 09/05/2023 Do you want help [...] % eye drops: 0 Refill(s) Potassium Chloride (Lfv-Pezn-Uem M10) 10 mEq oral tablet, extended release: [...] Family/ Social History Surgical history: Hip replacement (9875936732). Knee replacement (361469068). thyroidectomy. Coronary artery bypass graft (065821602). Cholecystectomy (55293723). Colonoscopy (696701144). Stented coronary artery (9818148616).. Family history: No family history items have [...] EDT Height Source Stated Height Entry Format [place] Height/Length, LIBYAN (ft) 6 ft Height/Length LIBYAN 0 Inch CLINICALHEIGHT 182.88 cm [place] Body Weight 76.59 kg Weight Source, ED Critical estimated dosing weight Weight Entry Format [place] Weight Surinamese lb 202 lb CLINICALWEIGHT 91.82 kg Body [...] % LOW Lymph # 0.54 x10(3)/uL LOW Ada % 7.2 % Ada # 0.26 K/uL Eos % 7.5 % HI Eos # 0.27 x10(3)/uL Baso % 0.8 % Baso # 0.03 x10(3)/uL Slide Review No IG# 0.01 x10(3)/uL IG% 0.30 % TSH 5.600 mcInt Units/mL HI . Chest X-Ray: Radiology Results (Last 48 hours) [id number] -- 07/18/2021 10:35 CR Chest 1 Vw [...] plan.. Notes: I certify that the physician assistant grocery store manager performed the services as delegated. This note has been prepared with the use of voice recognition software and may contain sound alike errors and omissions.. documented in this encounter Plan of Treatment Not on file documented as of this encounter Visit Diagnoses Not on filedocumented in this encounter Care Teams Cost Clerk Relationship Specialty Start Date End Date Elijah Serra, DO [address] [facility] [address] [place] [address] PCP - General Family Medicine 03/11/23 documented as of this encounter
--- OUTSIDE RECORDS SUMMARY | 2024-08-20 15:29 | XMS_ITS | Encounter Summary ---
Author Organization [facility] Address [address] [place] [address] Support Name Relationship Address Phone Stepan Gold Personal Relationship [address] [place] [address] Mi Gold Personal Relationship Unknown Rosalind Mai Personal Relationship Unknown + [phone] Vivi Ward Personal Relationship Unknown [phone] Care Team Providers Care Financial Reporting Manager Name Role Phone Yehuda Barger MD Primary Care Provider [phone] Milton Crum DO Primary Care Provider Miky Benotn MD Primary Care Provider [phone] Provider, Historical Unavailable Unavailable Willi Templeton MD Unavailable [phone] María Andre MD Unavailable [phone] Selene Rodriguez DENTAL ASSISTANT MEDICAL ASSISTANT Unavailable Mariah Flowers DENTAL ASSISTANT MEDICAL ASSISTANT Unavailable [phone] Neyda Beltran MD Unavailable [phone] Ryanne Roblero MD Unavailable Unavailable Mi Martin APRN Unavailable [phone] Elijah Serra DO Primary Care Provider [phone] Micha Washington MD Unavailable Encounter Details Date Type Department Care Team (Late st Contact Info) Description 05/20/2007 Historical Encounter Global Rosa Ambriz APRN [address] [place] [address] A [place] [address] Social History Tobacco Use Types Packs/Day Years [...] 11/06/2024 11:00 AM EDT Office Visit [facility] [address], Medical [place] , [address] [place] [address] Micha Washington MD 613 [address] [address] [place] [address] [phone] Molly Figueroa PA-C [address] [place] [address] [place] [id number] documented as of this encounter Visit Diagnoses Not on filedocumented in this encounter Additional Health Concerns Infection Onset Date Last Indicated Resolved Time 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 02/24/2017 02/22/2017 02/22/2017 04/02/2024 9:[address] documented as of this encounter Care Teams Financial Reporting Manager Relationship Specialty Start Date End Date Yehuda Barger MD [address] [place] [address] B [place] [address] PCP - General 02/16/09 04/13/23 Milton Crum DO [address] [place] [address] [place] [address] PCP - General 01/08/09 02/15/09 Miky Louis MD [address] [place] [address] PCP - General 12/26/07 01/07/09 Elijah Serra DO [address] [place] [address] PCP - General Family Medicine 07/21/23 Provider, Historical 02/16/16 08/25/16 Willi Templeton MD [address] [place] [address] [address] [place] [address] Gastroenterology 02/25/16 María Andre MD [address] [place] [address] [address] [place] [address] Gastroenterology 03/08/16 Selene Rodriguez APRN [address] [place] [address] [address] [place] [address] Gastroenterology 08/23/16 Mariah Flowers APRN [address] [place] [address] [address] [place] [address] Nurse Practitioner 08/26/16 Neyda Beltran MD [address] [place] [address] [address] [place] [address] Nephrology 03/17/17 Ryanne Roblero MD [address] [place] [address] [address] [place] [address] Rheumatology 03/01/18 Mi Martin APRN [address] [place] [address] 102 [place] [address] Nurse Practitioner Nurse Practitioner 04/16/19 Micha Washington MD [address] [place] [address] [address] [place] [address] Endocrinology 08/06/24 08/06/24 documented as of this encounter
--- OUTSIDE RECORDS SUMMARY | 2024-08-20 15:29 | XMS_ITS | Encounter Summary ---
Author Organization [employer] ([place], [place], [place], [place]) Address [address] [place] [address] Care Team Providers Care Chief Solution Architect Name Role Phone Elijah Serra DO Primary Care Provider [phone] Encounter Details Date Type Department Care Team (Late st Contact Info) Description 07/18/2021 Transcribed Document [facility] Medicine [address] [place] [address] ProviderMichael MD [address] [place] [address] Social History Tobacco Use Types [...] Do you speak a language other than [facility] at [facility]? No 09/05/2023 Do you want help [...] on filedocumented in this encounter Care Teams Chief Solution Architect Relationship Specialty Start Date End Date Elijah Serra DO [address] [facility] 1ST [place] [address] PCP - General Family Medicine 03/11/23 documented as of this encounter
--- OUTSIDE RECORDS SUMMARY | 2024-08-20 15:29 | XMS_ITS | Encounter Summary ---
Author Organization [facility] Address [address] [place] [address] Support Name Relationship Address Phone Stepan Gold Personal Relationship [address] [facility] [place] [address] Mi Gold Personal Relationship Unknown Rosalind Mai Personal Relationship Unknown [phone] Vivi Ward Personal Relationship Unknown Care Team Providers Care Auger Mill Operator Name Role Phone Lesley Grace MD Primary Care Provider [phone] Provider, Historical Unavailable Unavailable Willi Templeton MD Unavailable María Andre MD Unavailable Selene Rodriguez BOAT CAMP OPERATOR Unavailable Mariah Flowers BOAT CAMP OPERATOR Unavailable Neyda Beltran MD Unavailable Ryanne Roblero MD Unavailable Unavailable Mi Martin BOAT CAMP OPERATOR Unavailable [phone] Elijah Serra DO Primary Care Provider [phone] Micha Washington MD Unavailable Reason for Visit * Reason Onset Date Comments Schedule Procedure 11/25/2015 Encounter Details Date Type Department Care Team (Late st Contact Info) Description 11/25/[address] LESLEY GRACE MD, [facility] 105 [facility] [address] [place] [address] Lesley Grace MD [address] [place] [address] [place] [address] Schedule Procedure Social History Tobacco Use Types [...] Sinus--Limited. They do not do those @ [facility] says Centralized. Order needs to be put back in as CT Sinus without contrast. documented in this encounter Plan of Treatment Upcoming Encounters Date Type Department Care Team (Late st Contact Info) Description 11/06/2024 11:00 AM EDT Office Visit [facility] [address] [place] [address], [facility] [place], [address] [place], [place] [phone] Micha Washington MD [address] [place] [address] [place] [address] Molly Figueroa PA-C [address] [place] [address] documented as of this encounter Visit Diagnoses Not on filedocumented in this encounter Additional Health Concerns Infection Onset Date Last Indicated Resolved Time 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 02/24/2017 02/22/2017 02/22/2017 04/02/2024 9:[address] documented as of this encounter Care Teams Auger Mill Operator Relationship Specialty Start Date End Date Lesley Grace MD [address] [place] [address] [place] [address] PCP - General 02/16/09 04/13/23 Elijah Serra DO 100 [place] [address] PCP - General Family Medicine 07/21/23 Provider, Historical 02/16/16 08/25/16 Willi Templeton MD 613 [address] [address] [place] [address] Gastroenterology 02/25/16 María Andre MD 613 [address] [address] [place] [address] Gastroenterology 03/08/16 Selene Rodriguez APRN [address] [place] [address] Gastroenterology 08/23/16 Mariah Flowers APRN 61 [facility] 510 [place] [address] Nurse Practitioner 08/26/16 Neyda Beltran MD 613 23[facility] [address] [place] [address] Nephrology 03/17/17 Ryanne Roblero MD 613 [address] [address] [place] [address] Rheumatology 03/01/18 Mi Martin APRN [address] [place] [phone] Nurse Practitioner Nurse Practitioner 04/16/19 Micha Washington MD [address] [place] [address] Endocrinology 08/06/24 08/06/24 documented as of this encounter
--- OUTSIDE RECORDS SUMMARY | 2024-08-20 15:29 | XMS_ITS | Encounter Summary ---
Author Organization [facility] Address [address] [place] [address] Support Name Relationship Address Phone Stepan Gold Personal Relationship [address] [place] [address] Mi Gold Personal Relationship Unknown [phone] Rosalind Mai Personal Relationship Unknown [phone] Vivi Ward Personal Relationship Unknown Care Team Providers Care Parcel Post Order Clerk Name Role Phone Yehuda Barger MD Primary Care Provider Provider, Historical Unavailable Unavailable Willi Templeton MD Unavailable [phone] María Andre MD Unavailable Selene Rodriguez REPRODUCTION ORDER PROCESSOR Unavailable Mariah Flowers REPRODUCTION ORDER PROCESSOR Unavailable Nyeda Beltran MD Unavailable Ryanne Roblero MD Unavailable Unavailable Mi Martin REPRODUCTION ORDER PROCESSOR Unavailable [phone] Elijah Serra DO Primary Care Provider [phone] Micha Washington MD Unavailable Encounter Details Date Type Department Care Team (Late st Contact Info) Description 01/07/2016 Telephone [facility] [address] [place] [address] Yehuda Barger MD [address] [place] [address] [place] [address] Social History Tobacco Use Types Packs/Day Years [...] Sinclair - 01/07/2016 10:18 AM EST Not [facility] patient, (possibly Yehuda Barger?) * Telephone Encounter [...] Description 11/06/2024 11:00 AM EDT Office Visit [address], [facility], [address] [place] [phone] Micha Washington MD [address] [address] [place] [address] Molly Figueroa PA-C [address] [place] [address] documented as of this encounter Visit Diagnoses Not on filedocumented in this encounter Additional Health Concerns Infection Onset Date Last Indicated Resolved Time 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 02/24/2017 02/22/2017 02/22/2017 04/02/2024 9:[address] documented as of this encounter Care Teams Parcel Post Order Clerk Relationship Specialty Start Date End Date Yehuda Barger MD [address] [place] [address] [address] [place] [address] PCP - General 02/16/09 04/13/23 Elijah Serra DO 100 [place] [address] PCP - General Family Medicine 07/21/23 Provider, Historical 02/16/16 08/25/16 Willi Templeton MD 61 23[facility] [address] [place] [address] Gastroenterology 02/25/16 María Andre MD 61 23[facility] [address] [place] [address] Gastroenterology 03/08/16 Selene Rodriguez APRN [address] [place] [address] Gastroenterology 08/23/16 Mariah Flowers APRN 61 [address] [address] [place] [address] Nurse Practitioner 08/26/16 Neyda Beltran MD 613 23[facility] [address] [place] [address] Nephrology 03/17/17 Ryanne Roblero MD 61 [address] [address] [place] [address] Rheumatology 03/01/18 Mi Martin APRN [address] [place] [address] Nurse Practitioner Nurse Practitioner 04/16/19 Micha Washington MD [address] [place] [address] Endocrinology 08/06/24 08/06/24 documented as of this encounter
--- OUTSIDE RECORDS SUMMARY | 2024-08-20 15:29 | XMS_ITS | Encounter Summary ---
Author Organization [facility] Address [address] [place] [address] Support Name Relationship Address Phone Stepan Gold Personal Relationship [address] [facility] [place] [address] Mi Gold Personal Relationship Unknown [phone] Rosalind Mai Personal Relationship Unknown [phone] Vivi Ward Personal Relationship Unknown [phone] Care Team Providers Care Chip Crusher Operator Name Role Phone Lesley Grace MD Primary Care Provider [phone] Provider, Historical Unavailable Unavailable Willi Templeton MD Unavailable María Andre MD Unavailable Selene Rodriguez ECOMMERCE ANALYST Unavailable Mariah Flowers ECOMMERCE ANALYST Unavailable Neyda Beltran MD Unavailable Ryanne Roblero MD Unavailable Unavailable Mi Martin ECOMMERCE ANALYST Unavailable [phone] Elijah Serra DO Primary Care Provider [phone] Micha Washington MD Unavailable Reason for Visit * Reason Onset Date Comments Referral Status 02/29/2012 Encounter Details Date Type Department Care Team (Late st Contact Info) Description 02/29/[address] LESLEY GRACE MD, [address] [place] [address] Lesley Grace MD [address] [place] [address] [place] [address] Referral Status Social History Tobacco Use Types [...] EST Inf. Pt of appt with Dr. Crawford on 03/13/12 @ 8:00 am documented in this encounter Plan of Treatment Upcoming Encounters Date Type Department Care Team (Late st Contact Info) Description 11/06/2024 11:00 AM EDT Office Visit [address], [facility] [place], [address] [place] [phone] Micha Washington MD [address] [place] [address] [place] [address] Molly Figueroa PA-C [address] [place] [phone] documented as of this encounter Visit Diagnoses Not on filedocumented in this encounter Additional Health Concerns Infection Onset Date Last Indicated Resolved Time 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 02/24/2017 02/22/2017 02/22/2017 04/02/2024 9:[address] documented as of this encounter Care Teams Chip Crusher Operator Relationship Specialty Start Date End Date Lesley Grace MD [address] [place] [address] B [place] [address] PCP - General 02/16/09 04/13/23 Elijah Serra DO 100 [place] [address] PCP - General Family Medicine 07/21/23 Provider, Historical 02/16/16 08/25/16 Willi Templeton MD [address] [facility] [address] [place] [address] Gastroenterology 02/25/16 María Andre MD [address] [place] [address] [address] [place] [address] Gastroenterology 03/08/16 Selene Rodriguez APRN [address] [place] [address] 203 [place], [place] [address] Gastroenterology 08/23/16 Mariah Flowers APRN [address] [place] [address] 510 [place] [address] Nurse Practitioner 08/26/16 Neyda Beltran MD [address] [place] [address] [address] [place] [address] Nephrology 03/17/17 Ryanne Roblero MD [address] [place] [address] [address] [place] [address] Rheumatology 03/01/18 Mi Martin APRN [address] [place] [address] 102 [place] [address] Nurse Practitioner Nurse Practitioner 04/16/19 Micha Washington MD [address] [place] [address] Endocrinology 08/06/24 08/06/24 documented as of this encounter
--- OUTSIDE RECORDS SUMMARY | 2024-08-20 15:29 | XMS_ITS | Encounter Summary ---
Author Organization [facility] Address [address] [place] [address] Support Name Relationship Address Phone Stepan Gold Personal Relationship [address] [facility] [place] [address] Mi Gold Personal Relationship Unknown Rosalind Mai Personal Relationship Unknown [phone] Vivi Ward Personal Relationship Unknown Care Team Providers Care Horticulture Instructor Name Role Phone Lesley Grace MD Primary Care Provider [phone] Provider, Historical Unavailable Unavailable Willi Templeton MD Unavailable María Andre MD Unavailable Selene Rodriguez BOOT TURNER Unavailable Mariah Flowers BOOT TURNER Unavailable [phone] Neyda Beltran MD Unavailable Ryanne Roblero MD Unavailable Unavailable Mi Martin BOOT TURNER Unavailable [phone] Elijah Serra DO Primary Care Provider [phone] Micha Washington MD Unavailable Reason for Visit * Reason Onset Date Comments Referral Status 01/06/2016 Encounter Details Date Type Department Care Team (Late st Contact Info) Description 01/06/[address] LESLEY GRACE MD, [address] [place] [address] Lesley Grace MD [address] [place] [address] [address] [place] [address] Referral Status Social History Tobacco Use Types [...] Description 11/06/2024 11:00 AM EDT Office Visit [address], [address] [place] [phone] Micha Washington MD [address] [place] [address] Molly Figueroa PA-C [address] [place] [address] [place] [address] documented as of this encounter Visit Diagnoses Not on filedocumented in this encounter Additional Health Concerns Infection Onset Date Last Indicated Resolved Time 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 02/24/2017 02/22/2017 02/22/2017 04/02/2024 9:[address] documented as of this encounter Care Teams Horticulture Instructor Relationship Specialty Start Date End Date Lesley Grace MD [address] [place] [address] [address] [place] [address] PCP - General 02/16/09 04/13/23 Elijah Serra DO 100 [place] [address] PCP - General Family Medicine 07/21/23 Provider, Historical 02/16/16 08/25/16 Willi Templeton MD [address] [place] [address] Gastroenterology 02/25/16 María Andre MD [address] [place] [address] Gastroenterology 03/08/16 Selene Rodriguez APRN [address] [place] [address] 203 [place] [address] Gastroenterology 08/23/16 Mariah Flowers APRN [address] [place] [address] Nurse Practitioner 08/26/16 Neyda Beltran MD [address] [place] [address] Nephrology 03/17/17 Ryanne Roblero MD [address] [place] [address] Rheumatology 03/01/18 Mi Martin APRN [address] [place] [address] 102 [place] [phone] Nurse Practitioner Nurse Practitioner 04/16/19 Micha Washington MD [address] [place] [address] Endocrinology 08/06/24 08/06/24 documented as of this encounter
--- OUTSIDE RECORDS SUMMARY | 2024-08-20 15:29 | XMS_ITS | Encounter Summary ---
Author Organization [facility] Address [address] [place] [address] Support Name Relationship Address Phone Stepan Gold Personal Relationship [address] [place] [address] Mi Gold Personal Relationship Unknown Rosalind Mai Personal Relationship Unknown + [phone] Vivi Ward Personal Relationship Unknown [phone] Care Team Providers Care Retail Business Analyst Name Role Phone Yehuda Barger MD Primary Care Provider [phone] Milton Crum DO Primary Care Provider Miky Benton MD Primary Care Provider [phone] Provider, Historical Unavailable Unavailable Willi Templeton MD Unavailable [phone] María Adnre MD Unavailable [phone] Selene Rodriguez COFFEE SHOP ATTENDANT Unavailable [phone] Mariah Flowers COFFEE SHOP ATTENDANT Unavailable [phone] Neyda Beltran MD Unavailable [phone] Ryanne Roblero MD Unavailable Unavailable Mi Martin APRN Unavailable [phone] Elijah Serra DO Primary Care Provider [phone] Micha Washington MD Unavailable Encounter Details Date Type Department Care Team (Late st Contact Info) Description 08/26/1995 Historical Encounter Bob Serrano MD [address] [facility] [address] [place] [address] Social History Tobacco Use Types Packs/Day Years [...] [facility] [place] [place], [address] [place] [address] Micha Washington MD [address] [place] [address] [address] [place] [address] Molly Figueroa PA-C [address] [place] [address] [address] [place], [place] [phone] documented as of this encounter Visit Diagnoses Not on filedocumented in this encounter Additional Health Concerns Infection Onset Date Last Indicated Resolved Time 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 02/24/2017 02/22/2017 02/22/2017 04/02/2024 9:[address] documented as of this encounter Care Teams Retail Business Analyst Relationship Specialty Start Date End Date Yehuda Barger MD [address] [place] [address] [place] [address] PCP - General 02/16/09 04/13/23 Milton Crum DO [address] [place] [address] [place] [address] PCP - General 01/08/09 02/15/09 Miky Louis MD 645 [facility] [place] [address] PCP - General 12/26/07 01/07/09 Elijah Serra DO 100 [place] [address] PCP - General Family Medicine 07/21/23 Provider, Historical 02/16/16 08/25/16 Willi Templeton MD [address] [place] [address] Gastroenterology 02/25/16 María Andre MD [address] [place] [address] Gastroenterology 03/08/16 Selene Rodriguez APRN [address] [place] [address] 203 [place] [address] Gastroenterology 08/23/16 Mariah Flowers APRN [address] [place] [address] [address] [place] [address] Nurse Practitioner 08/26/16 Neyda Beltran MD [address] [place] [address] Nephrology 03/17/17 Ryanne Roblero MD [address] [place] [address] Rheumatology 03/01/18 Mi Martin APRN [address] [place] [address] 102 [place] [phone] Nurse Practitioner Nurse Practitioner 04/16/19 Micha Washington MD [address] [place] [address] [address] [place] [address] Endocrinology 08/06/24 08/06/24 documented as of this encounter
--- OUTSIDE RECORDS SUMMARY | 2024-08-20 15:29 | XMS_ITS | Encounter Summary ---
Author Organization [facility] Address [address] [place] [address] Support Name Relationship Address Phone Stepan Gold Personal Relationship [address] [facility] [place] [address] Mi Asif Personal Relationship Unknown Rosalind Andersonill Personal Relationship Unknown [phone] Vivi Ward Personal Relationship Unknown [phone] Care Team Providers Care Server Systems Administrator Name Role Phone Lesley Grace MD Primary Care Provider [phone] Willi Templeton MD Unavailable María Andre MD Unavailable [phone] Selene Rodriguez UTILIZATION MANAGEMENT NURSE Unavailable Mariah Flowers UTILIZATION MANAGEMENT NURSE Unavailable Neyda Beltran MD Unavailable Ryanne Roblero MD Unavailable Unavailable Mi Martin UTILIZATION MANAGEMENT NURSE Unavailable [phone] Elijah Serra DO Primary Care Provider [phone] Micha [place] MD Unavailable Reason for Visit * Reason Onset Date Comments Medications Refill 10/31/2017 Encounter Details Date Type Department Care Team (Late st Contact Info) Description 10/31/[address] LESLEY GRACE MD, [facility] [address] [place] [id number] Lesley Grace MD [address] [place] [address] [place] [address] Social History Tobacco Use Types Packs/Day Years [...] Description 11/06/2024 11:00 AM EDT Office Visit [facility] [address] [place] [address], [facility] [address] [place], [place] [id number] Micha [place] MD [address] [place] [address] Molly Figueroa PA-C [address] [place] [address] [place] [address] documented as of this encounter Visit Diagnoses Not on filedocumented in this encounter Additional Health Concerns Infection Onset Date Last Indicated Resolved Time 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 02/24/2017 02/22/2017 02/22/2017 04/02/2024 9:[address] documented as of this encounter Care Teams Server Systems Administrator Relationship Specialty Start Date End Date Lesley Grace MD [address] [place] [address] B [place] [address] PCP - General 02/16/09 04/13/23 Elijah Serra DO 100 [place] [address] PCP - General Family Medicine 07/21/23 Willi Templeton MD [address] [place] [address] 430 [place] [address] Gastroenterology 02/25/16 María Andre MD [address] [place] [address] 430 [place] [address] Gastroenterology 03/08/16 Selene Rodriguez APRN [address] [place] [address] 203 [place] [address] Gastroenterology 08/23/16 Mariah Flowers APRN [address] [place] [address] 510 [place] [address] Nurse Practitioner 08/26/16 Neyda Beltran MD [address] [place] [address] [address] [facility] [place] [address] Nephrology 03/17/17 Ryanne Roblero MD [address] [place] [address] [address] [facility] [place] [address] Rheumatology 03/01/18 Mi Martin APRN [address] [place] [address] [address] [place] [address] Nurse Practitioner Nurse Practitioner 04/16/19 Micha [place] MD [address] [place] [address] [address] [place] [address] Endocrinology 08/06/24 08/06/24 documented as of this encounter
--- OUTSIDE RECORDS SUMMARY | 2024-08-20 15:29 | XMS_ITS | Encounter Summary ---
Author Organization [facility] Address [address] [place] [address] Support Name Relationship Address Phone Stepan Gold Personal Relationship [address] [place] [address] Mi Gold Personal Relationship Unknown Rosalind Mai Personal Relationship Unknown [phone] Vivi Ward Personal Relationship Unknown [phone] Care Team Providers Care Seed Sales Manager Name Role Phone Yehuda Barger MD Primary Care Provider [phone] Milton Crum DO Primary Care Provider Miky Benton MD Primary Care Provider [phone] Provider, Historical Unavailable Unavailable Willi Templeton MD Unavailable [phone] María Andre MD Unavailable [phone] Selene Rodriguez HUNTING AND FISHING GUIDE Unavailable [phone] Mariah Flowers HUNTING AND FISHING GUIDE Unavailable [phone] Neyda Beltran MD Unavailable [phone] Ryanne Roblero MD Unavailable Unavailable Mi Martin APRN Unavailable [phone] Elijah Serra DO Primary Care Provider [phone] Micha [place] MD Unavailable Encounter Details Date Type Department Care Team (Late st Contact Info) Description 06/19/2007 Historical Encounter Global James Connolly MD [facility] Emergency Dept. [address] [place] [address] Social History Tobacco Use Types Packs/Day Years [...] Description 11/06/2024 11:00 AM EDT Office Visit [facility] [place], [address] [place] [address] Micha [place] MD [address] [place] [address] [place] [id number] Molly Figueroa PA-C [address] [place] [address] [place] [id number] documented as of this encounter Visit Diagnoses Not on filedocumented in this encounter Additional Health Concerns Infection Onset Date Last Indicated Resolved Time 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 02/24/2017 02/22/2017 02/22/2017 04/02/2024 9:[address] documented as of this encounter Care Teams Seed Sales Manager Relationship Specialty Start Date End Date Yehuda Barger MD [address] [place] [address] [facility] [place] [address] PCP - General 02/16/09 04/13/23 Milton Crum DO [address] [place] [address] [place] [address] PCP - General 01/08/09 02/15/09 Miky Louis MD [address] [place] [address] PCP - General 12/26/07 01/07/09 Elijah Serra DO 100 [place] [address] PCP - General Family Medicine 07/21/23 Provider, Historical 02/16/16 08/25/16 Willi [place] MD [address] [place] [address] Gastroenterology 02/25/16 María Andre MD [address] [place] [address] [address] [place] [address] Gastroenterology 03/08/16 Selene Rodriguez APRN [address] [place] [address] 203 [place], [place] [address] Gastroenterology 08/23/16 Mariah Flowers APRN [address] [place] [address] [address] [place] [address] Nurse Practitioner 08/26/16 Neyda Beltran MD [address] [place] [address] [address] [place] [address] Nephrology 03/17/17 Ryanne Roblero MD [address] [address] [place] [address] Rheumatology 03/01/18 Mi Martin APRN [address] [place] [address] 102 [place] [address] Nurse Practitioner Nurse Practitioner 04/16/19 Micha [place] MD [address] [place] [address] [place], [place] [address] Endocrinology 08/06/24 08/06/24 documented as of this encounter
--- OUTSIDE RECORDS SUMMARY | 2024-08-20 15:29 | XMS_ITS | Encounter Summary ---
Author Organization [facility] Address [address] [place] [address] Support Name Relationship Address Phone Stepan Gold Personal Relationship [address] [facility] [place] [address] Mi Asif Personal Relationship Unknown Rosalind Mai Personal Relationship Unknown [phone] Vivi Ward Personal Relationship Unknown [phone] Care Team Providers Care Reheater Name Role Phone Lesley Grace MD Primary Care Provider [phone] Willi [place] MD Unavailable María Andre MD Unavailable [phone] Selene Rodriguez GANDY DANCER Unavailable Mariah Flowers GANDY DANCER Unavailable Neyda Beltran MD Unavailable Ryanne Roblero MD Unavailable Unavailable Mi Martin GANDY DANCER Unavailable [phone] Elijah Serra DO Primary Care Provider [phone] Micha [place] MD Unavailable Reason for Visit * Reason Onset Date Comments Medications Refill 12/09/2017 Encounter Details Date Type Department Care Team (Late st Contact Info) Description 12/09/[address] LESLEY GRACE MD, [facility] [address] [facility] [address] [place] [address] Lesley Grace MD [address] [place] [address] [place] [address] Social History Tobacco Use Types Packs/Day Years [...] 11:00 AM EDT Office Visit [facility] [address] [place] [address], [facility] [address] [place], [place] [address] Micha [place] MD [address] [place] [address] Molly Figueroa PA-C [address] [place] [address] [place] [address] documented as of this encounter Visit Diagnoses Not on filedocumented in this encounter Additional Health Concerns Infection Onset Date Last Indicated Resolved Time 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 02/24/2017 02/22/2017 02/22/2017 04/02/2024 9:[address] documented as of this encounter Care Teams Reheater Relationship Specialty Start Date End Date Lesley Grace MD [address] [place] [address] [address] [place] [address] PCP - General 02/16/09 04/13/23 Elijah Serra DO 100 [place] [address] PCP - General Family Medicine 07/21/23 Willi [place] MD [address] [place] [address] 430 [place] [address] Gastroenterology 02/25/16 María Andre MD [address] [place] [address] 430 [place] [address] Gastroenterology 03/08/16 Selene Rodriguez APRN [address] [place] [address] 203 [place] [address] Gastroenterology 08/23/16 Mariah Flowers APRN [address] [place] [address] 510 [place] [address] Nurse Practitioner 08/26/16 Neyda Beltran MD [address] [place] [address] [address] [facility] [place] [address] Nephrology 03/17/17 Ryanne Roblero MD [address] [place] [address] [address] [facility] [place] [address] Rheumatology 03/01/18 Mi Martin APRN [address] [place] [address] 102 [place] [address] Nurse Practitioner Nurse Practitioner 04/16/19 Micha [place] MD [address] [place] [address] [address] [place] [address] Endocrinology 08/06/24 08/06/24 documented as of this encounter
--- OUTSIDE RECORDS SUMMARY | 2024-08-20 15:29 | XMS_ITS | Encounter Summary ---
Author Organization [employer] ([place], [place], [place], [place]) Address [address] [place] [address] Care Team Providers Care Steel Manager Name Role Phone Elijah Serra DO Primary Care Provider [phone] Encounter Details Date Type Department Care Team (Late st Contact Info) Description 07/18/2021 Transcribed Document [facility] [place] [facility] Family Medicine [address] [place] [address] ProviderMichael MD [address] [place] [address] Social History Tobacco Use Types [...] Do you speak a language other than [place] at [facility]? No 09/05/2023 Do you want help with [...] on filedocumented in this encounter Care Teams Steel Manager Relationship Specialty Start Date End Date Elijah Serra, DO 100 [facility] [address] [place] [address] PCP - General Family Medicine 03/11/23 documented as of this encounter
--- OUTSIDE RECORDS SUMMARY | 2024-08-20 15:29 | XMS_ITS | Encounter Summary ---
Author Organization [employer] ([place], [place], [place], [place]) Address [address] [place] [address] Care Team Providers Care Anthropological Linguist Name Role Phone Elijah Serra DO Primary Care Provider [phone] Encounter Details Date Type Department Care Team (Late st Contact Info) Description 07/18/2021 Transcribed Document [facility] Family Medicine [address] [place] [address] ProviderMichael MD [address] [place] [address] Social History Tobacco Use Types [...] Do you speak a language other than American at [facility]? No 09/05/2023 Do [...] 07/18/2021 12:49 EDT Electronically signed by Florencia [facility] Conversion Lean Coach Cerner at 05/25/2022 6:13 PM CDT documented in this encounter Plan of Treatment Not on file documented as of this encounter Visit Diagnoses Not on filedocumented in this encounter Care Teams Anthropological Linguist Relationship Specialty Start Date End Date Elijah Serra, DO [address] [facility] 1ST [place] [address] PCP - General Family Medicine 03/11/23 documented as of this encounter
--- OUTSIDE RECORDS SUMMARY | 2024-08-20 15:29 | XMS_ITS ---
Author Organization [facility] Address [address] [address] Care Team Providers Care Supervisor Phosphorus Processing Name Role Phone Elijah Serra DO Primary Care Provider [phone] Nancy Trammell LPN Unavailable Unavailabl e Transitional Care Management Status:Active (Active) Start date:07/23/2024 Enrollment date:07/23/2024 Enrollment reason:Identified using hospital discharge data Overview This episode type is for outpatient care managers enrolling patients in the [facility] Transitional Care Management program. Case Team Name Relationship Phone Nancy Trammell LPN(Responsible Staff) TCM Nurs e Continued Care and Services Coordination
--- OUTSIDE RECORDS SUMMARY | 2024-08-20 15:29 | XMS_ITS | Continuity of Care Document ---
Author Organization [facility] Address [address] [place] [address] [place] [address] Care Team Providers Care Medical Geneticist Name Role Phone EVANGELINA HOUSTON Primary Care Provider CINDY LABOY Produce Department Manager LESLEY GRACE Primary Care Provider GABRIELLA GAFFNEY Medical Massage Therapist [phone] MICHELLE ANGEL Manufacturing Chief Engineer Assessment No assessment recorded. Plan of Treatment [...] urinalys is panel, auto 2024 025 [email or web address] [facility], [address] [place] [address] , [place], [address], 07/05/2024 11:11:04 CBC w/ auto diff 2024 025 [facility], [address] [place] [address], [address], 07/05/2024 15:58:22 CMP, serum or plasma 2024 025 [facility], [address] [place] [address], [address], 07/05/2024 15:51:02 lipase, serum or plasma 2024 025 [facility], [address] [place] [address], [address], 07/05/2024 15:51:04 Referral None recorded . Procedures [...] suspecte d to be benign 2024 025 [facility], [address] [place] [address] , [place], [address], 07/05/2024 12:21:16 Medication Orders None recorded . Patient TargetsNo targets recorded. Patient Instructions Encounter Date Encounter Id Patient Instructions Last Modified By Organization Details Last Modified Time 07/05/2024 [id number] - Take [place] as prescribed for pain, and you may [...] auto Unknown Analyte Clean Catch Not Available [address], [place], [address], 07/05/2024 10:34:52 07/06/1907/05/2024 urina lysis panel , auto Unknown Analyte Yellow Not Available [address], [place], [address], 07/05/2024 10:34:52 07/06/1907/05/2024 urina lysis panel , auto Unknown Analyte Clear Not Available [address], [place], [address], 07/05/2024 10:34:52 07/06/1907/05/2024 urina lysis panel , auto Unknown Analyte 1.010 Not Available [address], [place], [address], 07/05/2024 10:34:52 07/06/1907/05/2024 urina lysis panel , auto Unknown Analyte 7.0 Not Available [address], [place], [address], 07/05/2024 10:34:52 07/06/1907/05/2024 urina lysis panel , auto Unknown Analyte Negati ve Not Available [address], [place], [address], 07/05/2024 10:34:52 07/06/1907/05/2024 urina lysis panel , auto Unknown Analyte Negati ve Not Available [address], [place], [address], 07/05/2024 10:34:52 07/06/19 25 07/05/2024 urina lysis panel , auto Unknown Analyte Negati ve Not Available [address], [place], [address], 07/05/2024 10:34:52 07/06/19 25 07/05/2024 urina lysis panel , auto Unknown Analyte Normal Not Available [address] , [place], [address], 07/05/2024 10:34:52 07/06/19 25 07/05/2024 urina lysis panel , auto Unknown Analyte Negati ve Not Available [address] , [place], [address], 07/05/2024 10:34:52 07/06/19 25 07/05/2024 urina lysis panel , auto Unknown Analyte Normal Not Available [address] , [place], [address], 07/05/2024 10:34:52 07/06/19 25 07/05/2024 urina lysis panel , auto Unknown Analyte Negati ve Not Available [address] , [place], [address], 07/05/2024 10:34:52 07/06/19 25 07/05/2024 urina lysis panel , auto Unknown Analyte Negati ve Not Available [address] , [place], [address], 07/05/2024 10:34:52 07/06/19 25 07/05/2024 CT, chest + abdom en + pelvi s, w/o contr ast [address] [place] [address] Mauricio simon Name: OBDULIO simon : [birth year] [...] -appea ring 2.2 cm 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 Gallbl adder is [...] Roberto Jurado MD on 025 12:16 PM [email or web address] [facility] [address] , [place], [address], 07/05/2024 15:07:57 07/17/19 25 07/15/2024 elect cyndi nava am No observ ation record ed. [facility] [address] [place], [address], 07/19/2024 07:59:43 Result Notes Documentation Provider Name and Address Organization Details Recorded Time Ct, Chest + Abdomen + Pelvis, W/o Contrast : [address] [place] [address] Patient Name: OBDULIO GOLD Patient : 1955 [...] Interpreted By: Roberto Jurado MD Briannelivia Vann [facility] 07/05/2024 15:07:57 Problems Name Problem SNOMED Code Status Onset Date Resolution Date Notes Provider Name and Address Organization Details Recorded Time History of coronary artery bypass grafting 448458813 Active 2020 [facility] 4 09:22:49 Type 1 diabetes mellitus 28402501 Active 2020 DPN EVANGELINA HOUSTON DO [address] [place] [address], [address] , [facility] 3 19:18:56 Erosive osteoarth rosis 658261365 Active 2020 hydroxych loroquine , cymbalta f/w Rheum EVANGELINA HOUSTON DO [address] [place], [address] , [facility] 3 10:34:29 Coronary arteriosc lerosis 85384967 Active 2020 s/p CABG, Stenting C 08/18/2020 EVANGELINA HOUSTON, DO [address] [place], [address] , [facility] 2 10:07:28 Hypothyro idism 16574078 Active 2020 [facility] 4 09:22:49 Dyspnea on exertion 72166586 Active 2020 JASON BURGOS PA-C [address] [place] [address], [address] , [facility] 1 12:35:15 Secondary gout 455287179 Active 2020 EVANGELINA HOUSTON, DO [address] [place], [address] , [facility] 2 10:07:28 Hyperpara thyroidis m due to renal insuffici ency 65327070 Active 2020 [place] [address] [place] [address], [address] , [facility] 3 20:47:44 Calcium pyrophosp hate depositio n disease 497129519 Active 2020 EVANGELINA HOUSTON, DO [address] [place], [address] , [facility] 2 10:07:28 Supraspin atus tear 734731403 Active 2020 R, full thickness MRI 07/2020 EVANGELINA HOUSTON, DO [address] [place], [address] , [facility] 1 16:39:26 Lumbar spondylol isthesis 71496222653 9102 Active 2020 f/w Dr Edgardo HOUSTON, DO [address] [place], [address] , [facility] 2 10:07:28 History of calculus of kidney 451583216 Active 2020 EVANGELINA HOUSTON [address], [address] , [facility] 2 10:07:28 Degenerat griffin disorder of macula 678172697 Active 2020 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 EVANGELINA HOUSTON, [address], [address] [place] [address] , [facility] 2 10:07:28 Esophagea l dysphagia 67071425 Active 2020 EGD 01/2021, dilated, recc 3y f/u EVANGELINA HOUSTON[address], [address] [place] [address] , [facility] 2 10:09:09 Minimal cognitive impairmen t 606215879 Active 2021 EVANGELINA HOUSTON [address], [address] [place] [address] , [facility] 2 10:09:05 Obstructi ve sleep apnea syndrome 24722227 Active [address], [address] , [facility] 2 10:09:55 Chronic diastolic heart failure 840291247 Active 2021 EVANGELINA HOUSTON [address], [address] , [facility] 2 18:48:59 Chronic kidney disease stage 3A 891992834 Active 2022 EVANGELINA HUOSTON [address], [address] , [facility] 3 10:20:26 Obesity 414677120 Active 2022 [facility] 4 09:22:49 Bronchiec tasis 37468113 Active 2022 EVANGELINA HOUSTON, DO [address] [place], [address] , [facility] 3 11:01:46 Fecal incontine nce with fecal urgency 19766284559 9102 Active 2023 KP LIANG MD [address] [place], [address] , [facility] 4 15:03:28 Atheroscl erosis of aorta 54466454 Active Not Available [facility] 4 10:12:08 Acquired thrombocy topenia 11391218 [facility] 10:12:26 Hypertens griffin disorder 42374072 Active 2023 EVANGELINA HOUSTON, DO [address] [place], [address] , [facility] 4 10:24:41 Sensorine ural hearing loss of bilateral ears 770671000 Active 2024 f/w [facility] [place] [address] [place] [address], [address] , [facility] 5 16:04:46 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 Procedures Surgical History Date Name Laterality Status Provider Name and Address Organization Details Recorded Time 07/24/[address] [facility] 07/23/2024 10:04:38 05/22/19 25 Injection Joint/Bursa, Small, w/o US completed KENIA LEO APRN [address] [place], [address], [facility] 05/21/2024 15:08:03 04/12/[address] [facility] 04/05/2024 13:12:55 02/16/19 25 Post Void Residual; Ultrasound completed Elizabeth Stone [facility] 02/17/2024 10:05:41 02/06/20 24 Injection Joint/Bursa, Small, w/o US completed KENIA LEO, BOBBIN DUMPER [address] [place], [address], [email or web address] 02/06/2024 15:20:44 01/30/20 24 Destruction Premalignant Lesion(s) completed Renuka Sears [facility] 01/30/2024 10:19:17 01/17/20 24 Injection Joint/Bursa, Small, w/o US completed KENIA LEO, BOBBIN DUMPER [address] [place], [address], [facility] 01/17/2024 13:32:56 10/21/19 24 Reclast Infusion completed Milton Zee [facility] 10/21/2023 12:29:17 09/21/19 24 TCM completed Sol Gann [facility] 09/17/2023 09:12:16 06/09/19 24 TCM completed Mo Guerra [facility] 06/02/2023 14:11:12 01/26/20 23 Destruction BN Lesions completed Lalita Coelho [facility] 01/25/2023 09:47:09 01/06/20 23 Spirometry completed Ester Juanis [facility] 01/05/2023 09:10:09 11/30/19 23 Injection Joint/Bursa, Small, w/o US completed KENIA LEO, BOBBIN DUMPER [address] [place], [address], [facility] 11/29/2022 10:01:36 11/06/19 23 Airway Resistance completed Ester Juanis [facility] 11/05/2022 08:15:12 11/06/19 23 Diffusion Capacity completed Ester Juanis [facility] 11/05/2022 08:15:10 11/06/19 23 Lung Volumes, Plethysmography [facility] [place] [facility] 11/05/2022 08:15:13 11/06/19 23 Spirometry completed Ester Juanis [facility] 11/05/2022 08:17:05 10/27/19 23 TCM completed Mo Guerra [facility] 10/26/2022 09:18:08 07/09/19 23 Stress Test - Nuclear Lexiscan completed GABRIELLA GAFFNEY MD [address] [place], [address], [facility] 07/08/2022 13:15:11 05/01/19 23 TCM completed JELANI VENEGAS PA-C [address] [place], [address], [facility] 04/29/2022 11:47:19 04/23/19 23 EKG completed GABRIELLA GAFFNEY MD [address] [place], [address], [facility] 04/22/2022 13:37:25 04/16/19 23 Injection Joint/Bursa, Small, w/o US completed KENIA LEO APRN [address] [place], [address], [facility] 04/15/2022 09:43:06 04/16/19 23 Injection Trigger Finger completed KENIA LEO APRN [address] [place], [address], [facility] 04/15/2022 09:43:33 03/30/19 23 colonoscopy completed Amita Crawford [facility] 03/31/2022 10:12:24 01/26/20 22 Destruction Premalignant Lesion(s) completed Lalita Coelho [facility] 01/25/2022 10:30:08 01/26/20 22 Shave Lesion; face, ear, eyelid, nose, lip, muc memb completed JOSE ANDERSON MD [address] [place], [address], [facility] 01/26/2022 17:32:59 12/22/19 22 TCM completed Mo Guerra [facility] 12/10/2021 14:48:20 08/18/19 22 Injection Joint/Bursa, Small, w/o US completed KENIA LEO APRN [address] [place], [address], [facility] 08/17/2021 08:38:09 06/24/19 22 EKG completed JASON BURGOS PA-C [address] [place], [address], [facility] 06/23/2021 11:14:58 06/04/19 22 arthroscopic debridement of knee joint completed Kun Jose [facility] 06/17/2021 14:29:32 11/08/19 21 Shave Lesion; trunk, arm, leg completed JOSE ANDERSON MD [address] [place], [address], [facility] 11/11/2020 17:50:29 11/08/19 21 Destruction Premalignant Lesion(s) completed Lalita Coelho [facility] 11/07/2020 13:50:19 11/04/19 21 Op Note completed TRISH MAYNARD MD [address] [place], [address], [facility] 11/03/2020 09:48:35 08/19/19 21 catheterization of left heart completed Marybel Alvarado [facility] 09/01/2020 15:41:19 07/09/19 21 Stress Test - Nuclear Lexiscan completed JOHANA BARNEY MD [address] [place], [address], [facility] 07/08/2020 15:17:35 06/26/19 21 Endoscopy Nasal; Diagnostic completed CINDY LABOY MD [address] [place], [address], [facility] 06/25/2020 16:17:59 06/24/19 21 EKG completed JASON BURGOS PA-C [address] [place], [address], [facility] 06/23/2020 12:34:26 02/07/19 18 Stent Placement completed EVANGELINA HOUSTON DO [address] [place], [address], [facility] 07/01/2020 08:01:28 02/07/19 00 CABG completed Madyson Pinto [facility] 06/19/2020 10:53:23 repair of hip completed Madyson Pinto [facility] 06/19/2020 10:54:31 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 completed EVANGELINA HOUSTON, [address] [place], [address], [facility] 07/01/2020 08:01:49 Cataract Surgery completed Madyson Pinto [facility] 06/19/2020 11:48:18 removal of thyroid nodule completed EVANGELINA HOUSTON, [address], [address], [facility] 06/19/2020 12:50:12 cholecystectomy completed EVANGELINA HOUSTON, [address] [place], [address], [facility] 07/01/2020 08:00:48 Carpal tunnel surgery completed Corin Logan [facility] 11/11/2020 10:10:27 Imaging Results None recorded. Procedure Notes None recorded. Medical Equipment None Reported. Allergies Allergen ID Allergen Name Allergen Category Reaction Reaction Severity Criticality Documentation Date Start Date Code Code System Note Provider Name and Address Organization Details Recorded Time 628675 iodine medicatio n Not available Not available Not available 06/19/2020 5933 RxNorm Madyson Pinto [facility] 10:45:39 772936 adhesive tape environme nt,medica tion Not available Not available Not available 06/19/2020 16484 UNK Madyson Pinto [facility] 10:45:44 Medications Name Sig Start Date [...] completed Not Available Not Available Not Available [place] 10 mg-325 mg tablet Take 1 tablet [...] Not Available Not Available No t Available Touiftikhar Max U-300 SoloStar 300 unit/mL (3 mL) [...] Updated DateTime 5 175.26 cm 25.7 kg/m2 10937.0 7 g 97.8 [degF] 85 /min 136/80 mm[Hg] Brianne Vann [facility] 10:42:48 Social History Question Answer Notes LastModified by Organizat ion Details LastModified Time Tobacco Smoking Status Former Smoker Susan thompson, [facility] 10/23/2020 08:53:41 What Is Your Level Of Caffeine Consumption? Moderate [email or web address] Information not available 06/19/2020 What Type Of Diet Are You Following? REGULAR Information not available 06/19/2020 Education 2 Year College Information not available 06/19/2020 When Did You Quit Smoking? 16+yearssince colt Information not available 07/15/2022 Live Alone Or With Others? With Others [email or web address] Information not available 06/19/2020 Marital Status [email or web address] Informatio n not available 06/19/2020 What Was The Date Of Your Most Recent Tobacco Screening? 05/23/2024 [email or web address] Information not available 05/23/2024 How Many Children Do You Have? 5 [email or web address] Information not available 06/19/2020 What Is Your Relationship Status? [email or web address] Information not available 10/03/2020 Are You Sexually Active? No [email or web address] Information not available 06/19/2020 At What Age Did You Start Smoking Tobacco? 18 Information not available 11/05/2022 How Much Tobacco Do You Smoke? No [email or web address] Information not available 07/17/2020 Has Tobacco Cessation Counseling Been Provided? No Information not available 10/03/2020 How Many Years Have You Smoked Tobacco? 0 [email or web address] Information not available 07/17/2020 Sex: Male Functional Status Question Answer Note LastModified by Organizat ion Details LastModified Time Do you use any illicit or recreational drugs? No Information not available 10/03/2020 Do you or have you ever used any other forms of tobacco or nicotine? No [email or web address] Information not available 10/03/2020 What is your level of alcohol consumption? None [email or web address] Information not available 06/19/2020 Do you or have you ever used smokeless tobacco? Never used smokeless tobacco [email or web address] Information not available 07/17/2020 Are you currently employed? No [email or web address] Information not available 06/30/2023 Are you able to care for yourself? 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 Never used electronic cigarettes [email or web address] Information not available 07/17/2020 What is your exercise level? None [email or web address] Information not available 06/19/2020 Mental Status None recorded. Family History Relationship Description Onset Age of this Age Resolved Age Notes LastModified by Organization Details LastModified Time Mother Blood coagulation disorder [email or web address] Not available 2020 11:46:13 Mother Myocardial infarction [email or web address] Not available 06/19 11:46:44 Mother Cerebrovascu lar accident [email or web address] Not available 11:46:56 Mother Disorder of thyroid gland Not available 2020 11:47:03 Mother Complication of anesthesia [email or web address] Not available 02/05 13:08:57 Mother Heart disease [email or web address] Not available 2021 13:09:17 Mother Hypertensive disorder [email or web address] Not available 2021 13:09:28 Mother Diabetes mellitus [email or web address] Not available 2021 13:09:45 Brother Malignant melanoma [email or web address] Not available 2020 11:46:32 Brother Myocardial infarction [email or web address] Not available 06/19 11:46:48 Brother Disorder of thyroid gland [email or web address] Not available 2021 13:09:03 Sister Heart disease [email or web address] Not available 2021 13:09:17 Sister Hypertensive disorder [email or web address] Not available 2021 13:09:28 Sister Diabetes mellitus [email or web address] Not available 2021 13:09:45 Medical History Condition Response Coronary Artery Disease Y Other N Gout Y Atrial Fibrillation N Kidney Stones Y Hyperthyroidism N Blood Transfusion Y Emphysema N Hypothyroidism Y Depression N COPD N Lung Disease Y Pneumonia Y Breast Problem N Difficulty [...] Disease Y Allergies/Hayfever Y Heart Problems Y Ear or Hearing Problems Y Parkinson's Disease N Hospitalizations Y Alzheimer's N Thyroid Problems Y GI Problems N Skin Problems N Eating Disorder N Anemia Y Constipation Y Mental Illness N Ovarian Cancer N Diabetes Y Bleeding Disorder Y Seizures/Epilepsy N Tuberculosis N [...] quadrivalent, PF 1 completed Madyson Pinto [facility] 12/19/2020 10:31:45 Influenza, high-dose, quadrivalent, PF 2 completed EVANGELINA HOUSTON DO [address] [place] [address], [address], [facility] 12/21/2021 14:25:14 Influenza, high-dose, quadrivalent, PF 3 completed EVANGELINA HOUSTON DO [address] [place] [address], [address], [facility] 12/01/2022 15:39:31 COVID-19 vaccine, vector-nr, rS-ChAdOx1, PF, 0.5 mL 1 completed Not Available [facility] 03/08/2023 14:48:10 COVID-19 vaccine, vector-nr, rS-ChAdOx1, PF, 0.5 mL 1 completed Not Available [facility] 03/08/2023 14:48:10 COVID-19, mRNA, LNP-S, PF, 50 mcg/0.5 mL 3 completed EVANGELINA HOUSTON DO [address] [place] [address], [address], [facility] 01/24/2023 09:42:50 RSV, recombinant, protein subunit RSVpreF, adjuvant reconstituted, 0.5 mL, PF 3 completed EVANGELINA HOUSTON DO [address] [place] [address], [address], [facility] 01/24/2023 09:42:50 COVID-19, mRNA, LNP-S, PF, 30 mcg/0.3 mL dose 1 completed Sabrina Curry [facility] 04/30/2022 12:55:14 Influenza, high-dose, trivalent, PF 4 completed EVANGELINA HOUSTON DO [address] [place] [address], [address], [facility] 01/26/2024 10:51:52 COVID-19, mRNA, LNP-S, PF, 50 mcg/0.5 mL 4 completed EVANGELINA HOUSTON DO [address] [place], [address], [facility] 01/26/2024 10:51:52 zoster recombinant 2 [facility] 04/30/2022 12:55:13 zoster recombinant 2 completed Sabrina Critchley null, [facility] 04/30/2022 12:55:14 Influenza, adjuvanted, quadrivalent, PF 0 completed Sabrina Critchley [facility] 04/30/2022 12:55:14 COVID-19, mRNA, LNP-S, PF, 30 mcg/0.3 mL dose 1 [facility] 04/30/2022 12:55:14 COVID-19, mRNA, LNP-S, PF, 30 mcg/0.3 mL dose 1 completed Sabrina Critchley [facility] 04/30/2022 12:55:14 Tdap 0 completed Sabrina Critchley [facility] 04/30/2022 12:55:14 influenza, seasonal, intradermal, preservative free 9 completed Sabrina Critchley [facility] 04/30/2022 12:55:14 influenza, seasonal, intradermal, preservative free 8 completed Sabrina Critchley [facility] 04/30/2022 12:55:14 Past Encounters Encounter ID Performer Location Encounter Start Date Encounter Closed Date Diagnosis/Indication Diagnosis SNOMED-CT Code Diagnosis ICD10 Code Diagnosis Note [id number] FERNANDA CRUZ PA-C [facility] [address] [place] [address] 06/18/2024 13:28:50 06/18/2024 14:23:40 Acute cough 6720303926 64497345 R05.1 has become productive . see tx plan below. O2 sat a bit low at 93%. Acute bact erial bronchitis 797280658 J20.8 B96.89 start doxy and mucinex as directed. lance domingo DM for cough. he was advised this causes drowsiness . continue neb tx as needed. He declines an oral steroid today. Supportive tx measures discussed. re eval if not improving in 4-5 days or if worsens. [id number] EVANGELINA HOUSTON, [facility] [address] [facility] [place] [address] 07/05/2024 10:32:51 07/05/2024 11:53:45 Right flank pain 239452212 R10.9 Right flank pain and history of [...] expresses understand ing with plan Chronic cough 89599632 R 05.3 Right-side d pneumonia 03/2024, now [...] necessary. Chronic ki dney disease stage 3A 485973188 N18.31 Most recent GFR has improved to 74Stable. Continue to avoid NSAIDs. Continued control of diabetes of paramount importance Health Concerns Section Related Observation LastModified by Organization Detai ls LastModified Time None Recorded Concern Status LastModified by Organization Details LastModified Time None Recorded Payers Encounter Date Sequence Insurance Name Policy Number Policy Coleman Covered Member ID Coleman Member ID Guarantor Name 07/05/2024 1 [place] Obdulio Gold [id number] Obdulio Gold 07/05/2024 2 [employer] (MEDICARE SUPPLEMENT) Obdulio Gold [id number] Obdulio Gold Notes Date Note Type Note [...] medications, including Flomax and finasteride, and uses [place] for pain, although it has been minimally effective for the current pain. EVANGELINA HOUSTON DO [address] [place], [address], [facility] 07/05/2024 11:12:03
--- OUTSIDE RECORDS SUMMARY | 2024-08-20 15:29 | XMS_ITS | Encounter Summary ---
Author Organization [employer] ([place], [place], [place], [place]) Address [address] [place] [address] Care Team Providers Care Federal Judicial Law Clerk Name Role Phone Elijah Serra DO Primary Care Provider [phone] Encounter Details Date Type Department Care Team (Late st Contact Info) Description 07/18/2021 Transcribed Document [facility] Family Medicine [address] [place] [address] ProviderMichael MD [address] [place] [address] Social History Tobacco Use Types [...] Do you speak a language other than [facility]? No 09/05/2023 Do [...] 13:47 EDT by Dara Celis Emergency Room Central Service Tech Phone Call for Consults Provider Service Notified Name : Cardiology Consult, Additional Information : Consult for in am Dara Celis Emergency Room Central Service Tech - 07/18/2021 13:47 EDT Electronically signed by Florencia [facility] Conversion Security Delivery Specialist Cerner at 05/25/2022 6:11 PM CDT documented in this encounter Plan of Treatment Not on file documented as of this encounter Visit Diagnoses Not on filedocumented in this encounter Care Teams Federal Judicial Law Clerk Relationship Specialty Start Date End Date Elijah Serra, DO [address] [facility] 1ST [place] [phone] PCP - General Family Medicine 03/11/23 documented as of this encounter
--- OUTSIDE RECORDS SUMMARY | 2024-08-20 15:29 | XMS_ITS | Encounter Summary ---
Author Organization [facility] Address [address] [place] [address] Support Name Relationship Address Phone Stepan Gold Personal Relationship [address] [place] [address] Mi Gold Personal Relationship Unknown Rosalind Mai Personal Relationship Unknown + [phone] Vivi Ward Personal Relationship Unknown [phone] Care Team Providers Care Profiling Machine Set Up Operator Name Role Phone Yehuda Barger MD Primary Care Provider [phone] Milton Crum DO Primary Care Provider Miky Benton MD Primary Care Provider [phone] Provider, Historical Unavailable Unavailable Willi Templeton MD Unavailable [phone] María Andre MD Unavailable [phone] Selene Rodriguez HEALTH COORDINATOR Unavailable Mariah Flowers HEALTH COORDINATOR Unavailable [phone] Neyda Beltran MD Unavailable [phone] Ryanne Roblero MD Unavailable Unavailable Mi Martin APRN Unavailable [phone] Elijah Serra DO Primary Care Provider [phone] Micha Washington MD Unavailable Encounter Details Date Type Department Care Team (Late st Contact Info) Description 10/25/2006 Historical Encounter Global Yehuda Barger MD [address] [place] [address] Social History Tobacco Use Types Packs/Day Years [...] Description 11/06/2024 11:00 AM EDT Office Visit [facility] Endocrinology [place] [address] [place], [facility] [place], [address] [place] [phone] Micha Washington MD [address] [place] [address] [place] [address] Molly Figueroa PA-C [address] [place] [address] [place] [address] documented as of this encounter Visit Diagnoses Not on filedocumented in this encounter Additional Health Concerns Infection Onset Date Last Indicated Resolved Time 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 02/24/2017 02/22/2017 02/22/2017 04/02/2024 9:[address] documented as of this encounter Care Teams Profiling Machine Set Up Operator Relationship Specialty Start Date End Date Yehuda Barger MD [address] [place] [address] PCP - General 02/16/09 04/13/23 Milton Crum DO [address] [place] [address] PCP - General 01/08/09 02/15/09 Miky Louis MD [address] [place] [address] PCP - General 12/26/07 01/07/09 Elijah Serra DO [address] [place] [address] PCP - General Family Medicine 07/21/23 Provider, Historical 02/16/16 08/25/16 Willi Templeton MD [address] [facility] [address] [place] [address] Gastroenterology 02/25/16 María Andre MD [address] [place] [address] [address] [place] [address] Gastroenterology 03/08/16 Selene Rodriguez APRN [address] [place] [address] Gastroenterology 08/23/16 Mariah Flowers APRN [address] [place] [address] 510 [place] [address] Nurse Practitioner 08/26/16 Neyda Beltran MD [address] [address] [place] [address] Nephrology 03/17/17 Ryanne Roblero MD [address] [address] [place] [address] Rheumatology 03/01/18 Mi Martin APRN [address] [place] [address] [address] [place] [phone] Nurse Practitioner Nurse Practitioner 04/16/19 Micha Washington MD [address] [place] [address] [address] [place] [address] Endocrinology 08/06/24 08/06/24 documented as of this encounter
--- OUTSIDE RECORDS SUMMARY | 2024-08-20 15:29 | XMS_ITS | Encounter Summary ---
Author Organization [facility] Address [address] [place] [address] Support Name Relationship Address Phone Stepan Gold Personal Relationship [address] [place] [address] Mi Gold Personal Relationship Unknown Rosalind Mai Personal Relationship Unknown + [phone] Vivi Ward Personal Relationship Unknown [phone] Care Team Providers Care Lookback Coordinator Name Role Phone Yehuda Barger MD Primary Care Provider [phone] Milton Crum DO Primary Care Provider Miky Benton MD Primary Care Provider [phone] Provider, Historical Unavailable Unavailable Willi Templeton MD Unavailable [phone] María Andre MD Unavailable [phone] Selene Rodriguez OIL FIRE SPECIALIST Unavailable [phone] Mariah Flowers OIL FIRE SPECIALIST Unavailable [phone] Neyda Beltran MD Unavailable [phone] Ryanne Roblero MD Unavailable Unavailable Mi [place] APRN Unavailable [phone] Elijah Serra DO Primary Care Provider [phone] Micha Washington MD Unavailable Encounter Details Date Type Department Care Team (Late st Contact Info) Description 03/23/2007 Historical Encounter [place] Social History Tobacco Use Types Packs/Day [...] 11:00 AM EDT Office Visit [facility] [address] [place], [facility], [address] [place] [phone] Micha Washington MD [address] [place] [address] [place] [address] [phone] Molly Figueroa PA-C [address] [place] [address] [place] [phone] documented as of this encounter Visit Diagnoses Not on filedocumented in this encounter Additional Health Concerns Infection Onset Date Last Indicated Resolved Time 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 02/24/2017 02/22/2017 02/22/2017 04/02/2024 9:[address] documented as of this encounter Care Teams Lookback Coordinator Relationship Specialty Start Date End Date Yehuda Barger MD [address] [place] [address] PCP - General 02/16/09 04/13/23 Milton Crum DO [address] [place] [address] PCP - General 01/08/09 02/15/09 Miky Louis MD 6[address] [facility] [place] [address] PCP - General 12/26/07 01/07/09 Elijah Serra DO [address] [place], [place] [address] PCP - General Family Medicine 07/21/23 Provider, Historical 02/16/16 08/25/16 Willi Templeton MD [address] [place] [address] Gastroenterology 02/25/16 María Andre MD [address] [place] [address] [address] [facility] [place] [address] Gastroenterology 03/08/16 Selene Rodriguez APRN [address] [place] [address] 203 [place] [address] Gastroenterology 08/23/16 Mariah Flowers APRN [address] [place] [address] 510 [place] [address] Nurse Practitioner 08/26/16 Neyda Beltran MD [address] [place] [address] [address] [facility] [place] [address] Nephrology 03/17/17 Ryanne Roblero MD [address] [place] [address] [address] [facility] [place] [address] Rheumatology 03/01/18 Mi [place] APRN [address] [place] [address] 102 [place] [address] Nurse Practitioner Nurse Practitioner 04/16/19 Micha Washington MD [address] [place] [address] [address] [place] [address] Endocrinology 08/06/24 08/06/24 documented as of this encounter
--- OUTSIDE RECORDS SUMMARY | 2024-08-20 15:29 | XMS_ITS | Encounter Summary ---
Author Organization [employer] ([place], [place], [place], [place]) Address [address] [place] [address] Care Team Providers Care Ward Service Supervisor Name Role Phone Elijah Serra DO Primary Care Provider [phone] Encounter Details Date Type Department Care Team (Late st Contact Info) Description 07/18/2021 Transcribed Document [facility] Family Medicine [address] [place] [address] ProviderMichael MD [address] [place] [address] Social History Tobacco Use Types [...] Do you speak a language other than Bur[place]ian at [facility]? No 09/05/2023 Do [...] on filedocumented in this encounter Care Teams Ward Service Supervisor Relationship Specialty Start Date End Date Elijah Serra, DO 100 [facility] 1ST [place] [address] PCP - General Family Medicine 03/11/23 documented as of this encounter
--- OUTSIDE RECORDS SUMMARY | 2024-08-20 15:29 | XMS_ITS | Encounter Summary ---
Author Organization [facility] Address [address] [place] [address] Support Name Relationship Address Phone Stepan Gold Personal Relationship [address] [place] [address] Mi Gold Personal Relationship Unknown [phone] Rosalind Mai Personal Relationship Unknown [phone] Vivi Ward Personal Relationship Unknown Care Team Providers Care Radiator Mechanic Name Role Phone Yehuda Barger MD Primary Care Provider Provider, Historical Unavailable Unavailable Willi Templeton MD Unavailable María Andre MD Unavailable Selene Rodriguez TRANSFILL TECHNICIAN Unavailable Mariah Flowers TRANSFILL TECHNICIAN Unavailable Neyda Beltran MD Unavailable Ryanne Roblero MD Unavailable Unavailable Mi [place] TRANSFILL TECHNICIAN Unavailable [phone] Elijah Serra DO Primary Care Provider Micha Washington MD Unavailable Encounter Details Date Type Department Care Team (Latest Contact Info) Description 07/25/2009 Transcribe [facility] Card[facility] [address] [facility] [place] [address] Horacio Sherman MD [address] [place], [place] [phone] Coronary Atherosclerosis of [place] Coronary Artery (Primary Dx) Social History Tobacco [...] EDT Office Visit [facility] [address] [place] [address], [facility] [place] , [address] [place] [phone] Micha Washington MD [address] [place] [address] [address] [place] [address] Molly Figueroa PA-C [address] [place] [phone] documented as of this encounter Visit Diagnoses Diagnosis Coronary atherosclerosis of zuni coronary artery- Primary documented in this encounter Additional Health Concerns Infection Onset Date Last Indicated Resolved Time 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 02/24/2017 02/22/2017 02/22/2017 04/02/2024 9:[address] documented as of this encounter Care Teams Radiator Mechanic Relationship Specialty Start Date End Date Yehuda Barger MD [address] [place] [address] 194 [facility] [place] [address] PCP - General 02/16/09 04/13/23 Elijah Serra DO 100 [place] [address] PCP - General Family Medicine 07/21/23 Provider, Historical 02/16/16 08/25/16 Willi Templeton MD [address] [place] [address] [address] [place] [address] Gastroenterology 02/25/16 María Andre MD 613 [address] [place] [address] [facility] [place] [address] Gastroenterology 03/08/16 Selene Rodriguez APRN [address] [place] [address] 203 [place] [address] Gastroenterology 08/23/16 Mariah Flowers APRN [address] [place] [address] 510 [place] [address] Nurse Practitioner 08/26/16 Neyda Beltran MD [address] [place] [address] [address] [facility] [place] [address] Nephrology 03/17/17 Ryanne Roblero MD [address] [place] [address] [address] [facility] [place] [address] Rheumatology 03/01/18 Mi Martin APRN [address] [place] [address] 102 [place] [phone] Nurse Practitioner Nurse Practitioner 04/16/19 Micha Washington MD [address] [place] [address] [address] [place] [address] Endocrinology 08/06/24 08/06/24 documented as of this encounter
--- OUTSIDE RECORDS SUMMARY | 2024-08-20 15:29 | XMS_ITS | Encounter Summary ---
Author Organization [facility] Address [address] [place] [address] Support Name Relationship Address Phone Stepan Gold Personal Relationship [address] [facility] [place] [place] [address] Mi Asif Personal Relationship Unknown Rosalind Mai Personal Relationship Unknown [phone] Vivi Ward Personal Relationship Unknown Care Team Providers Care Seal Mixing Operator Name Role Phone Lesley Grace MD Primary Care Provider [phone] Provider, Historical Unavailable Unavailable Willi Templeton MD Unavailable María Andre MD Unavailable Selene Rodriguez SEAT COVER CUTTER Unavailable Mariah Flowers SEAT COVER CUTTER Unavailable Neyda Beltran MD Unavailable Ryanne Roblero MD Unavailable Unavailable Mi [place] SEAT COVER CUTTER Unavailable [phone] Elijah Serra DO Primary Care Provider Micha Washington MD Unavailable Reason for Visit * Reason Onset Date Comments Medications Refill 04/24/2015 Encounter Details Date Type Department Care Team (Late st Contact Info) Description 04/24/[address] LESLEY GRACE MD, [address] [place] [address] Lesley Grace MD [address] [place] [address] 1946 [facility] [address] Social History Tobacco Use Types Packs/Day Years [...] Office Visit [facility] [address] [place] [address], [place] [phone] Micha Washington MD [address] [place] [address] Molly Figueroa PA-C [address] [place] [address] documented as of this encounter Visit Diagnoses Not on filedocumented in this encounter Additional Health Concerns Infection Onset Date Last Indicated Resolved Time 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 02/24/2017 02/22/2017 02/22/2017 04/02/2024 9:[address] documented as of this encounter Care Teams Seal Mixing Operator Relationship Specialty Start Date End Date Lesley Grace MD [address] [place] [address] [facility] [address] PCP - General 02/16/09 04/13/23 Elijah Serra DO 100 [place] [address] PCP - General Family Medicine 07/21/23 Provider, Historical 02/16/16 08/25/16 Willi Templeton MD [address] [place] [address] Gastroenterology 02/25/16 María Andre MD [address] [place] [address] Gastroenterology 03/08/16 Selene Rodriguez APRN [address] [place] [address] 203 [place] [address] Gastroenterology 08/23/16 Mariah Flowers APRN [address] [place] [address] Nurse Practitioner 08/26/16 Neyda Beltran MD [address] [place] [address] Nephrology 03/17/17 Ryanne Roblero MD [address] [place] [address] Rheumatology 03/01/18 Mi [place] APRN [address] [place] [address] 102 [place] [address] Nurse Practitioner Nurse Practitioner 04/16/19 Micha Washington MD 613 [address] [address] [place], [place] [address] Endocrinology 08/06/24 08/06/24 documented as of this encounter
--- OUTSIDE RECORDS SUMMARY | 2024-08-20 15:29 | XMS_ITS | Encounter Summary ---
Author Organization [facility] Address [address] [place] [address] Support Name Relationship Address Phone Stepan Gold Personal Relationship [address] [place] [address] Mi Gold Personal Relationship Unknown [phone] Rosalind Mai Personal Relationship Unknown [phone] Vivi Ward Personal Relationship Unknown Care Team Providers Care Photolettering Machine Operator Name Role Phone Lesley Grace MD Primary Care Provider Provider, Historical Unavailable Unavailable Willi Templeton MD Unavailable María Andre MD Unavailable Selene Rodriguez ROOM SERVER Unavailable Mariah Flowers ROOM SERVER Unavailable Neyda Beltran MD Unavailable Ryanne Roblero MD Unavailable Unavailable Mi Martin ROOM SERVER Unavailable Elijah Serra DO Primary Care Provider [phone] Micha Washington MD Unavailable Encounter Details Date Type Department Care Team (Late st Contact Info) Description 01/23/[address] LESLEY GRACE MD, [facility] [address] [place] [address] Lesley Grace MD 105 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 documented in this encounter Plan of Treatment Upcoming Encounters Date Type Department Care Team (Late st Contact Info) Description 11/06/2024 11:00 AM EDT Office Visit [facility] Endocrinology [address], [facility], [address] [place], [place] [phone] Micha Washington MD [address] [place] [address] Molly Figueroa PA-C [address] [place] [address] documented as of this encounter Visit Diagnoses Not on filedocumented in this encounter Additional Health Concerns Infection Onset Date Last Indicated Resolved Time 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 02/24/2017 02/22/2017 02/22/2017 04/02/2024 9:[address] documented as of this encounter Care Teams Photolettering Machine Operator Relationship Specialty Start Date End Date Lesley Grace MD [address] [place] [address] 1947 [facility] [address] [place] [address] PCP - General 02/16/09 04/13/23 PonceStephanuaDO 100 [place] [address] PCP - General Family Medicine 07/21/23 Provider, Historical 02/16/16 08/25/16 Willi Templeton MD [address] [place] [address] [address] [place] [address] Gastroenterology 02/25/16 María Andre MD [address] [place] [address] [address] [place] [address] Gastroenterology 03/08/16 Selene Rodriguez APRN [address] [place] [address] 203 [place] [address] Gastroenterology 08/23/16 Mariah Flowers APRN [address] [place] [address] 510 [place] [address] Nurse Practitioner 08/26/16 Neyda Beltran MD [address] [place] [address] [address] [place] [address] Nephrology 03/17/17 Ryanne Roblero MD [address] [place] [address] [address] [place] [address] Rheumatology 03/01/18 Mi [place] APRN [address] [place] [address] 102 [place] [phone] Nurse Practitioner Nurse Practitioner 04/16/19 Micha Washington MD [address] [place] [address] Endocrinology 08/06/24 08/06/24 documented as of this encounter
--- OUTSIDE RECORDS SUMMARY | 2024-08-20 15:29 | XMS_ITS | Encounter Summary ---
Author Organization [facility] Address [address] [place] [address] Support Name Relationship Address Phone Stepan Gold Personal Relationship [address] [place] [address] Mi Gold Personal Relationship Unknown [phone] Rosalind Mai Personal Relationship Unknown [phone] Vivi Ward Personal Relationship Unknown Care Team Providers Care Yard Attendant Name Role Phone Lesley Grace MD Primary Care Provider [phone] Willi Templeton MD Unavailable María Andre MD Unavailable Selene Rodriguez ELECTROLYSIS INVESTIGATOR Unavailable Mariah Flowers ELECTROLYSIS INVESTIGATOR Unavailable Neyda Beltran MD Unavailable Ryanne Roblero MD Unavailable Unavailable Mi [place] ELECTROLYSIS INVESTIGATOR Unavailable [phone] Elijah Serra DO Primary Care Provider Micha Washington MD Unavailable Encounter Details Date Type Department Care Team (Late st Contact Info) Description 08/01/[address] LESLEY GRACE MD, [facility] 105 [facility] 194 [place] [address] Lesley Grace MD 105 [facility] [address] [place] [address] Social History Tobacco Use Types [...] 8:34 AM EDT Redness/bruising on shins # [phone] [place] documented in this encounter Plan of Treatment Upcoming Encounters Date Type Department Care Team (Late st Contact Info) Description 11/06/2024 11:00 AM EDT Office Visit [facility] [address] [place] [address], [facility] Marcy [place], [address] [place], [place] [phone] Micha Washington MD [address] [place] [address] Molly Figueroa PA-C [address] [place] [address] documented as of this encounter Visit Diagnoses Not on filedocumented in this encounter Additional Health Concerns Infection Onset Date Last Indicated Resolved Time 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 02/24/2017 02/22/2017 02/22/2017 04/02/2024 9:[address] documented as of this encounter Care Teams Yard Attendant Relationship Specialty Start Date End Date Lesley Grace MD [address] [place] [address] [place] [address] B [place] [address] PCP - General 02/16/09 04/13/23 Elijah Serra DO 100 [place] [address] PCP - General Family Medicine 07/21/23 Willi Templeton MD 61 23[facility] [address] [place] [address] Gastroenterology 02/25/16 María Andre MD 61 23[facility] [address] [place] [address] Gastroenterology 03/08/16 Selene Rodriguez APRN [address] [place] [address] Gastroenterology 08/23/16 Mariah Flowers APRN 61 23[facility] 510 [place] [address] Nurse Practitioner 08/26/16 Neyda Beltran MD 613 23[facility] [address] [place] [address] Nephrology 03/17/17 Ryanne Roblero MD 613 [address] [address] [place] [address] Rheumatology 03/01/18 Mi [place] APRN [address] [place] [address] 102 [place] [address] Nurse Practitioner Nurse Practitioner 04/16/19 Micha Washington MD [address] [place] [address] Endocrinology 08/06/24 08/06/24 documented as of this encounter
--- OUTSIDE RECORDS SUMMARY | 2024-08-20 15:29 | XMS_ITS | Encounter Summary ---
Author Organization [employer] ([place], [place], [place], [place]) Address [address] [place] [address] Care Team Providers Care Adjunct Lecturer Name Role Phone Elijah Serra DO Primary Care Provider [phone] Encounter Details Date Type Department Care Team (Late st Contact Info) Description 07/18/2021 Transcribed Document [facility] [place] [address] [place] [address] ProviderMichael MD [address] [place] [address] Social History Tobacco Use Types [...] Do you speak a language other than French at [facility]? No 09/05/2023 Do you want help with [...] EDT DCP GENERIC CODE Tracking Group : [facility] ED FELISHA VENEGAS RN - 07/18/2021 [...] Problems(Active) At risk for sleep apnea (IMO :03149581 ) Name of Problem: At risk for sleep apnea ; Recorder: SYSTEM, SYSTEM; Confirmation: Confirmed ; Classification: Medical ; Code: [id number] ; Last Updated: 08/18/2020 10:30 EDT ; Life Cycle Date: 08/18/2020 ; Life Cycle Status: Active ; Vocabulary: IMO Calcium pyrophosphate deposition disease (SNOMED CT :429249124 ) Name of Problem: Calcium pyrophosphate deposition disease ; Onset Date: 07/21/2020 ; Recorder: RAMON GRAMAJO RN; Confirmation: Confirmed ; Classification: Medical ; Code: 997619222 ; Contributor System: [employer] ; Last Updated: 08/18/2020 10:16 EDT ; Life Cycle Date: 08/18/2020 ; Life Cycle Status: Active ; Responsible Provider: RAMON GRAMAJO RN; Vocabulary: SNOMED CT Chronic kidney disease stage 3 (SNOM[address] CT :8849462388 ) Name of Problem: Chronic kidney disease stage 3 ; Onset Date: 06/19/2020 ; Recorder: RAMON GRAMAJO RN; Confirmation: Confirmed ; Classification: Medical ; Code: 4965612498 ; Contributor System: [employer] ; Last Updated: 08/18/2020 10:15 EDT ; Life Cycle Date: 08/18/2020 ; Life Cycle Status: Active ; Responsible Provider: RAMON GRAMAJO RN; Vocabulary: SNOMED CT Coronary arteriosclerosis (SNOMED CT :74494767 ) Name of Problem: Coronary arteriosclerosis ; Onset Date: 06/19/2020 ; Recorder: RAMON GRAMAJO RN; Confirmation: Confirmed ; Classification: Medical ; Code: 98162731 ; Contributor System: [employer] ; Last Updated: 08/18/2020 10:15 EDT ; Life Cycle Date: 08/18/2020 ; Life Cycle Status: Active ; Responsible Provider: RAMON GRAMAJO RN; Vocabulary: SNOMED CT Dyspnea on exertion (SNOMED CT :284711453 ) Name of Problem: Dyspnea on exertion ; Onset Date: 06/23/2020 ; Recorder: RAMON GRAMAJO RN; Confirmation: Confirmed ; Classification: Medical ; Code: 998050408 ; Contributor System: PowerChart ; Last Updated: 08/18/2020 10:15 EDT ; Life Cycle Date: 08/18/2020 ; Life Cycle Status: Active ; Responsible Provider: RAMON GRAMAJO RN; Vocabulary: SNOMED CT Erosive osteoarthrosis (SNOMED CT :058466947 ) Name of Problem: Erosive osteoarthrosis ; Onset Date: 06/19/2020 ; Recorder: RAMON GRAMAJO RN; Confirmation: Confirmed ; Classification: Medical ; Code: 231187712 ; Contributor System: PowerChart ; Last Updated: 08/18/2020 10:15 EDT ; Life Cycle Date: 08/18/2020 ; Life Cycle Status: Active ; Responsible Provider: RAMON GRAMAJO RN; Vocabulary: SNOMED CT History of coronary artery bypass grafting (SNOMED CT :0075562442 ) Name of Problem: History of coronary artery bypass grafting ; Onset Date: 06/19/2020 ; Recorder: RAMON GRAMAJO RN; Confirmation: Confirmed ; Classification: Medical ; Code: 6068364231 ; Contributor System: PowerChart ; Last Updated: 08/18/2020 10:15 EDT ; Life Cycle Date: 08/18/2020 ; Life Cycle Status: Active ; Responsible Provider: RAMON GRAMAJO RN; Vocabulary: SNOMED CT Hyperlipidemia (SNOMED CT :86343238 ) Name of Problem: Hyperlipidemia ; Recorder: RAMON GRAMAJO RN; Confirmation: Confirmed ; Classification: Patient Stated ; Code: 35601559 ; Contributor System: PowerChart ; Last Updated: 08/18/2020 10:16 EDT ; Life Cycle Date: 08/18/2020 ; Life Cycle Status: Active ; Vocabulary: SNOMED CT Hyperparathyroidism due to renal insufficiency (SNOMED CT :55171974 ) Name of Problem: Hyperparathyroidism due to renal insufficiency ; Onset Date: 07/01/2020 ; Recorder: RAMON GRAMAJO RN; Confirmation: Confirmed ; Classification: Medical ; Code: 81922290 ; Contributor System: PowerChart ; Last Updated: 08/18/2020 10:16 EDT ; Life Cycle Date: 08/18/2020 ; Life Cycle Status: Active ; Responsible Provider: RAMON GRAMAJO RN; Vocabulary: SNOMED CT Hypertension (SNOMED CT :65766858 ) Name of Problem: Hypertension ; Recorder: RAMON GRAMAJO RN; Confirmation: Confirmed ; Classification: Patient Stated ; Code: 53705866 ; Contributor System: PowerChart ; Last Updated: 08/18/2020 10:16 EDT ; Life Cycle Date: 08/18/2020 ; Life Cycle Status: Active ; Vocabulary: SNOMED CT Hypothyroidism (SNOMED CT :67839586 ) Name of Problem: Hypothyroidism ; Onset Date: 06/19/2020 ; Recorder: RAMON GRAMAJO RN; Confirmation: Confirmed ; Classification: Medical ; Code: 97674189 ; Contributor System: [employer] ; Last Updated: 08/18/2020 10:15 EDT ; Life Cycle Date: 08/18/2020 ; Life Cycle Status: Active ; Responsible Provider: RAMON GRAMAJO RN; Vocabulary: SNOMED CT Secondary gout (SNOMED CT :294824124 ) Name of Problem: Secondary gout ; Onset Date: 07/01/2020 ; Recorder: RAMON GRAMAJO RN; Confirmation: Confirmed ; Classification: Medical ; Code: 008246947 ; Contributor System: [employer] ; Last Updated: 08/18/2020 10:15 EDT ; Life Cycle Date: 08/18/2020 ; Life Cycle Status: Active ; Responsible Provider: RAMON GRAMAJO RN; Vocabulary: SNOMED CT Type 1 diabetes mellitus ([address] :826892666 ) Name of Problem: Type 1 diabetes mellitus ; Onset Date: 06/19/2020 ; Recorder: RAMON GRAMAJO RN; Confirmation: Confirmed ; Classification: Medical ; Code: 007839847 ; Contributor System: [employer] ; Last Updated: 08/18/2020 10:15 EDT ; Life Cycle Date: 08/18/2020 ; Life Cycle Status: Active ; Responsible Provider: RAMON GRAMAJO RN; Vocabulary: SNOMED CT Diagnoses(Active) Weakness Date: 07/18/2021 ; Diagnosis Type: Reason For Visit ; Confirmation: Complaint of ; Clinical Dx: Weakness ; Classification: Medical ; Clinical Service: Emergency medicine ; Code: PNED ; Probability: 0 ; Diagnosis Code: [id number] ED Height and Weight Height Source : Stated Height Entry Format : [place] Height, Feet : 6 ft(Converted to: 183 cm, 72 Inch) Height, Inches : 0 Inch(Converted to: 0 ft 0 Inch, 0.00 cm) Clinical Height : 182.88 cm Weight Source, ED : Critical estimated dosing weight Weight Entry Format : [place] Weight, Pounds : 202 lb Clinical Dosing Weight : 91.82 kg Body Surface Area (BSA) : 2.14 m2 Body Mass Index : 27.5 kg/m2 (HI) Byers Body Weight (IBW) : 76.59 kg FELISHA VENEGAS RN - 07/18/2021 10:41 EDT Electronically signed by [facility], [facility] Conversion Portable Sawmill Operator Cerner at 05/25/2022 6:16 PM CDT documented in this encounter Plan of Treatment Not on file documented as of this encounter Visit Diagnoses Not on filedocumented in this encounter Care Teams Adjunct Lecturer Relationship Specialty Start Date End Date Elijah Serar, DO [address] [facility] 1ST [place] [phone] PCP - General Family Medicine 03/11/23 documented as of this encounter
--- OUTSIDE RECORDS SUMMARY | 2024-08-20 15:29 | XMS_ITS | Encounter Summary ---
Author Organization [facility] Address [address] [place] [address] Support Name Relationship Address Phone Stepan Gold Personal Relationship [address] [facility] [place] [address] Mi Gold Personal Relationship Unknown Rosalind Mai Personal Relationship Unknown [phone] Vivi Ward Personal Relationship Unknown Care Team Providers Care Data Analytics Chief Scientist Name Role Phone Lesley Grace MD Primary Care Provider [phone] Provider, Historical Unavailable Unavailable Willi Templeton MD Unavailable María Andre MD Unavailable Selene Rodriguez FAST FOOD SERVER Unavailable Mariah Flowers FAST FOOD SERVER Unavailable Neyda Beltran MD Unavailable Ryanne Roblero MD Unavailable Unavailable Mi Martin FAST FOOD SERVER Unavailable Elijah Serra DO Primary Care Provider Micha Washington MD Unavailable Reason for Visit * Reason Onset Date Comments Phone Advice For Symptoms 11/15/2011 Encounter Details Date Type Department Care Team (Late st Contact Info) Description 11/15/[address] LESLEY GRACE MD, [address] [place] [address] Lesley Grace MD [address] [place] [address] 1948 [facility] [address] [place] [address] Phone Advice For Symptoms Social History Tobacco [...] EDT Office Visit [facility] Endocrinology [place] [address] [place] [address], [facility] [place] [address], [address] [place], [place] [address] Micha Washington MD [address] [place] [address] [place] [address] Molly Figueroa PA-C [address] [place] [address] documented as of this encounter Visit Diagnoses Not on filedocumented in this encounter Additional Health Concerns Infection Onset Date Last Indicated Resolved Time 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 02/24/2017 02/22/2017 02/22/2017 04/02/2024 9:[address] documented as of this encounter Care Teams Data Analytics Chief Scientist Relationship Specialty Start Date End Date Lesley Grace MD [address] [place] [address] [address] [place] [address] PCP - General 02/16/09 04/13/23 Elijah Serra DO [address] [place] [address] PCP - General Family Medicine 07/21/23 Provider, Historical 02/16/16 08/25/16 Willi Templeton MD [address] [address] [place] [address] Gastroenterology 02/25/16 María Andre MD [address] [address] [place] [address] Gastroenterology 03/08/16 Selene Rodriguez APRN [address] [place] [address] Gastroenterology 08/23/16 Mariah Flowers APRN 61 [address] [address] [place] [address] Nurse Practitioner 08/26/16 Neyda Beltran MD [address] [place] [address] Nephrology 03/17/17 Ryanne Roblero MD [address] [place] [address] Rheumatology 03/01/18 Mi Martin APRN [address] [place] [address] [address] [place] [address] Nurse Practitioner Nurse Practitioner 04/16/19 Micha Washington MD [address] [place] [address] Endocrinology 08/06/24 08/06/24 documented as of this encounter
--- OUTSIDE RECORDS SUMMARY | 2024-08-20 15:29 | XMS_ITS | Encounter Summary ---
Author Organization [employer] ([place], [place], [place], [place]) Address [address] [place] [address] Care Team Providers Care Commercial Front Load Driver Name Role Phone Elijah Serra DO Primary Care Provider [phone] Encounter Details Date Type Department Care Team (Late st Contact Info) Description 07/18/2021 Transcribed Document [facility] Family Medicine [address] [place] [address] ProviderMichael MD [address] [place] [address] Social History Tobacco Use Types [...] Do you speak a language other than Barbadian at [facility]? No 09/05/2023 [...] WFL Left UE Strength : WFL MATTHEW AHSRAF PT Student - 07/20/2021 15:47 EDT Lower Extremity RLE Active ROM : [facility] Right LE Strength : [facility] LLE Active ROM : [facility] Left LE Strength : WFL MATTHEW ASHRAF [...] ASHRAF PT Student - 07/20/2021 15:47 EDT Fpc Goals Ambulation LTG Grid Goal #1 Device [...] on filedocumented in this encounter Care Teams Commercial Front Load Driver Relationship Specialty Start Date End Date Elijah Serra, DO 100 [facility] [address]ST [place] [address] PCP - General Family Medicine 03/11/23 documented as of this encounter
--- OUTSIDE RECORDS SUMMARY | 2024-08-20 15:29 | XMS_ITS | Encounter Summary ---
Author Organization [employer] ([place], [place], [place], [place]) Address [address] [place] [address] Care Team Providers Care Rip Machine Operator Name Role Phone Elijah Serra DO Primary Care Provider [phone] Encounter Details Date Type Department Care Team (Late st Contact Info) Description 07/18/2021 Transcribed Document [facility] [place] Family Medicine [address] [place] [address] ProviderMichael MD [address] [place], [place] [...] Do you speak a language other than Eritrean at [facility]? No 09/05/2023 Do you want [...] Communication Barrier : None Primary Language : Eritrean Any Spiritual/Cultural Needs or Requests : No [...] Grid All Lobes Breath Sounds : Diminished MRACOS OLSEN RN - 07/18/2021 15:20 EDT Respiratory Pattern Description : Regular MARCOS OLSEN RN - 07/18/2021 15:20 EDT Electronically signed by Florencia [facility] Conversion Risk Control Field Representative Cerner at 05/25/2022 6:06 PM CDT documented in this encounter Plan of Treatment Not on file documented as of this encounter Visit Diagnoses Not on filedocumented in this encounter Care Teams Rip Machine Operator Relationship Specialty Start Date End Date Elijah Serra, DO 100 [facility] 1ST [place] [address] PCP - General Family Medicine 03/11/23 documented as of this encounter
--- OUTSIDE RECORDS SUMMARY | 2024-08-20 15:29 | XMS_ITS | Encounter Summary ---
Author Organization [facility] Address [address] [place] [address] Support Name Relationship Address Phone Stepan Gold Personal Relationship [address] [place] [address] Mi Gold Personal Relationship Unknown Rosalind Mai Personal Relationship Unknown [phone] Vivi Ward Personal Relationship Unknown [phone] Care Team Providers Care Road Freight Brake Coupler Name Role Phone Yehuda Barger MD Primary Care Provider [phone] Milton Crum DO Primary Care Provider Miky [place]enton MD Primary Care Provider [phone] Provider, Historical Unavailable Unavailable Willi Templeton MD Unavailable [phone] María Andre MD Unavailable [phone] Selene Rodriguez GRAPHIC EDITOR Unavailable Mariah Flowers GRAPHIC EDITOR Unavailable [phone] Neyda Beltran MD Unavailable [phone] Ryanne Roblero MD Unavailable Unavailable Mi Martin APRN Unavailable [phone] Elijah Serra DO Primary Care Provider [phone] Micha Washington MD Unavailable Encounter Details Date Type Department Care Team (Late st Contact Info) Description 03/28/2007 Historical Encounter Global Yehuda Barger MD [address] [place] [address] Social History Tobacco Use Types Packs/Day Years [...] EDT Office Visit [facility] Endocrinology [place] [address] [place], [facility] [place] [address], [address] [place] [address] Micha Washington MD [address] [place] [address] [place] [address] Molly Figueroa PA-C [address] [place] [address] [place] [address] documented as of this encounter Visit Diagnoses Not on filedocumented in this encounter Additional Health Concerns Infection Onset Date Last Indicated Resolved Time 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 02/24/2017 02/22/2017 02/22/2017 04/02/2024 9:[address] documented as of this encounter Care Teams Road Freight Brake Coupler Relationship Specialty Start Date End Date Yehuda Barger MD [address] [place] [address] PCP - General 02/16/09 04/13/23 Milton Crum DO [address] [place] [address] PCP - General 01/08/09 02/15/09 Miky Louis MD [address] [place] [address] PCP - General 12/26/07 01/07/09 Elijah Serra DO [address] [place] [address] PCP - General Family Medicine 07/21/23 Provider, Historical 02/16/16 08/25/16 Willi Templeton MD [address] [facility] [address] [place] [address] Gastroenterology 02/25/16 María Andre MD [address] [place] [address] [address] [place] [address] Gastroenterology 03/08/16 Selene Rodriguez APRN [address] [place] [address] Gastroenterology 08/23/16 Mariah Flowers APRN [address] [place] [address] [address] [place] [address] Nurse Practitioner 08/26/16 Neyda Beltran MD [address] [facility] [address] [place] [address] Nephrology 03/17/17 Ryanne Roblero MD [address] [facility] [address] [place] [address] Rheumatology 03/01/18 Mi Martin APRN [address] [place] [address] [address] [address] [place] [phone] Nurse Practitioner Nurse Practitioner 04/16/19 Micha Washington MD [address] [place] [address] [address] [place] [address] Endocrinology 08/06/24 08/06/24 documented as of this encounter
--- NOTE | 2024-08-20 15:35 | PC.NURSE ---
notified resp of [facility]
--- NOTE | 2024-08-20 15:37 | CT_ITS ---
PROCEDURE INFORMATION: Exam: CTA Chest With Contrast Exam date and time: 08/20/2024 4:12 PM Age: 68 years old Clinical indication: Pain; Chest pressure; Additional info: Cp, dyspnea HX of pna, HX of bronchiectasis TECHNIQUE: Imaging protocol: Computed tomographic angiography of the chest with contrast. Exam focused on the arteries. 3D rendering (Not supervised by radiologist): MIP and/or 3D reconstructed images were created by the technologist. Radiation optimization: All CT scans at this facility use at least one of these dose optimization techniques: automated exposure control; mA and/or kV adjustment per patient size (includes targeted exams where dose is matched to clinical indication); or iterative reconstruction. Contrast material: ISOVUE; Contrast volume: 70 ml; Contrast route: INTRAVENOUS (IV); COMPARISON: CT ANGIO CHEST PE PROTOCOL 08/13/2024 1:52 PM FINDINGS: Pulmonary arteries: Normal. No pulmonary emboli. Aorta: Unremarkable. No aortic aneurysm. No aortic dissection. Lungs: Bilateral lower lobe bronchiectasis and consolidation persists, greater on the left and little changed from the prior study. Stable similar more mild changes in the lingula. Lung apices remain clear. Pleural spaces: Unremarkable. No pneumothorax. No pleural effusion. Heart: Unremarkable. No cardiomegaly. No pericardial effusion. Lymph nodes: Unremarkable. No enlarged lymph nodes. 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 Mild kyphoscoliosis of the thoracic spine. No acute osseous abnormality. Soft tissues: Unremarkable. IMPRESSION: Bilateral lower lobe and lingular consolidation appears similar to previous and may represent chronic or recurrent pneumonia/pneumonitis. Underlying lower lobe bronchiectasis noted, greater on the left.
[2024-08-20 15:39] LABS: Hematocrit 30.7 % (42.0-52.0); Hemoglobin 9.8 g/dL (14.1-18.0); Immature Granulocytes % 0.6 %; Mean Corpuscular HGB Conc 31.9 g/dL (31.8-35.4); Mean Corpuscular Hemoglobin 27.9 pg (27.0-31.2); Mean Corpuscular Volume 87.5 fl (80-94); Nucleated Red Blood Cells % 0 %; Platelet Count 167 K/mm3 (142-424); Red Blood Count 3.51 M/mm3 (4.60-6.20); Red Cell Distribution Width-SD 51.0 fL; White Blood Count 4.9 K/mm3 (4.8-10.8)
[2024-08-20 15:39] LABS: Lactate Venous 1.9 mmol/L (0.4-2.0); VBG HCO3 26.6 mmol/L (23-30); VBG PCO2 37.6 mmol/L (35-51); VBG PH 7.47 mmol/L (7.31-7.41); VBG PO2 31.8 mmol/L (28-40)
--- NOTE | 2024-08-20 15:39 | ED_ITS ---
<Statement entered by Hilaria Méndez DO - 08/20/24 19:31> I was consulted by the DENY, and we discussed the complexity of the problems being addressed. I approved the treatment and management plan for this patient's care in the emergency department, thus performing a substantive portion of the medical decision making. Hilaria Méndez DO Discharge Plan Disposition Patient Disposition: Home, Self-Care Condition: Good Prescriptions Prescriptions: No Action donepezil 10 mg tablet 10 mg PO HS sucralfate 1 gram tablet 1 g PO BID clopidogrel 75 mg tablet 75 mg PO DAILY valacyclovir 500 mg tablet 500 mg PO DAILY trazodone 150 mg tablet 150 mg PO HS hydroxychloroquine 200 mg tablet 200 mg PO BID colchicine 0.6 mg tablet 0.6 mg PO BID colestipol 1 gram tablet 1 g PO BID insulin aspart U-100 [Novolog FlexPen U-100 Insulin] 100 unit/mL (3 mL) insulin pen 8 - 12 unit SQ ACHS Patient Comments: Pt states he takes 8-12 units at meals and also uses Sliding scale in addition rosuvastatin 20 mg tablet 20 mg PO HS potassium chloride 10 mEq tablet,ER particles/crystals 10 meq PO DAILY duloxetine 60 mg capsule,delayed release(DR/EC) 60 mg PO BID furosemide 40 mg tablet 40 mg PO DAILY tamsulosin 0.4 mg capsule 0.4 mg PO BID gabapentin 800 mg tablet 800 mg PO TID allopurinol 300 mg tablet 300 mg PO DAILY metoprolol succinate 25 mg tablet extended release 24 hr 12.5 mg PO DAILY cetirizine [Zyrtec] 10 mg Tablet 10 mg PO DAILY aspirin 81 mg Tablet 81 mg PO DAILY finasteride 5 mg Tablet 5 mg PO DAILY tizanidine 4 mg tablet 4 mg PO TIDP PRN (Reason: MUSCLE SPASMS) insulin glargine U-300 conc [Toujeo SoloStar U-300 Insulin] 300 unit/mL (1.5 mL) insulin pen 20 unit SQ DAILY hydrocodone-acetaminophen 10-325 mg tablet 1 tab PO Q6HP PRN (Reason: Pain) Patient Comments: TAKE 1 TABLET BY MOUTH EVERY 6 HOURS levothyroxine 150 mcg tablet 150 mcg PO DAILY albuterol sulfate 2.5 mg /3 mL (0.083 %) Solution For Nebulization 2.5 mg inhalation BIDRT 30 Days Qty: 180 0RF sulfamethoxazole-trimethoprim [Bactrim DS] 800-160 mg tablet 1 tab PO BID 12 Days Qty: 24 0RF albuterol sulfate 2.5 mg/0.5 mL solution for nebulization 2.5 mg inhalation Q6HP PRN (Reason: cough) Qty: 30 0RF Rx Instructions: for up to 3 doses (DME) pen needle, diabetic [BD Ultra-Fine Martine Pen Needle] 32 gauge x 5/32 needle MISCELLANEOUS Patient Comments: USE 1 NEEDLE FOR INSULIN 4 TIMES DAILY WITH MEALS AND AT BEDTIME Referrals Follow up/Referrals: Provider,Referral, MD [Primary Care Provider, Medical] - See instructions Clinical Impressions Clinical Impression: Pneumonia of both lower lobes Qualifiers: Pneumonia type: due to unspecified organism Qualified Code(s): J18.9 - Pneumonia, unspecified organism Instructions Patient Instructions: DI for Pneumonia -- Adult Print Language Print Language: Albanian Discharge ED Provider: Hilaria Méndez HPI <JUANY Carrero - Last Filed: 08/20/24 18:21> General Chief Complaint: Chest Pain Stated Complaint: chest pain Time Seen by Provider: 08/20/24 15:07 Mode of Arrival: Wheelchair Source of Information: Patient Description of Symptoms (Recalled from ER Triage Doc. by RN): pt presents to the ED with chest pain. pt reports that he was at physcial therapy 30 minutes before arrival to the ED when he started having chest pain. pt was [id number] diagnosed with pneumonia last week and hasn't felt right since. pt states that the pain is on darrell left side of the chest. pt reports shortness of breath and feels liek someone is sitting on his chest. pt hx of 6 heart stents. pt was nausea yesterday but denies vomiting. History of Present Illness HPI narrative: 68-year-old male presents to the emergency department with a 2 to 3-day history of left-sided chest pain, shortness of breath, subjective fever chills and malaise, patient denies any abdominal pain no nausea no vomiting no constipation no diarrhea no urinary type symptomatology, patient has history of bronchiectasis, and recurrent pneumonia, was recently admitted on 08/13/2024, discharged on 08/15/2024 treated for pneumonia, discharged on oral antibiotics, patient in physical therapy today, noticed worsening shortness of breath pale appearing , according to at the bedside, distress vitals are unremarkable, known history of tobacco abuse, denies any alcohol or drug use, other past medical history consistent with type 1 diabetes, hypothyroidism, GERD, coronary disease, status post multiple stents (6) and CABG, osteoarthritis, hypertension, hyperlipidemia, RA, gout, patient is on dual endplate therapy of Plavix and aspirin. Onset (ago): day(s) Related Data Home Medications ?Medication ?Instructions ?Recorded ?Confirmed pen needle, diabetic 32 gauge x 11/09/23 08/15/24 (BD Ultra-Fine Martine Pen Needle) clopidogrel 75 mg tablet 75 mg PO DAILY 11/29/2308/31 colchicine 0.6 mg tablet 0.6 mg PO BID 11/29/2308/13 colestipol 1 gram tablet 1 g PO BID 11/29/23 08/14/24 donepezil 10 mg tablet 10 mg PO HS 11/29/23 5 duloxetine 60 mg capsule,delayed 60 mg PO BID 11/29/23 08/14/24 release hydroxychloroquine 200 mg tablet 200 mg PO BID 4 08/13/24 insulin aspart U-100 100 unit/mL 8 - 12 unit SQ ACHS D iabetes 11/29/23 08/13/24 (3 mL) subcutaneous pen (Novolog FlexPen U-100 Insulin aspart) potassium chloride 10 mEq 10 meq PO DAILY 11/29/2308/31 tablet,extended release(part/cryst) rosuvastatin 20 mg tablet 20 mg PO HS 11/29/23 5 sucralfate 1 gram tablet 1 g PO BID 11/29/23 08/14/24 trazodone 150 mg tablet 150 mg PO HS 11/29/23 valacyclovir 500 mg tablet 500 mg PO DAILY 11/29/23 allopurinol 300 mg tablet 300 mg PO DAILY 03/19/2408/31 furosemide 40 mg tablet 40 mg PO DAILY 03/19/2408/31 gabapentin 800 mg tablet 800 mg PO TID 03/19/2408/13 metoprolol succinate 25 mg 12.5 mg PO DAILY 03/19/24 0 08/14/24 tablet,extended release 24 hr tamsulosin 0.4 mg capsule 0.4 mg PO BID 03/19/2408/13 aspirin 81 mg tablet 81 mg PO DAILY 08/13/2408/31 cetirizine 10 mg tablet (Zyrtec) 10 mg PO DAILY 08/13/24 finasteride 5 mg tablet 5 mg PO DAILY 08/13/2408/13 insulin glargine U-300 conc 300 20 unit SQ DAILY 08/1308/13/24 unit/mL (1.5 mL) subcutaneous pen (Toujeo SoloStar U-300 Insulin) tizanidine 4 mg tablet 4 mg PO TIDP PRN MUSCLE SPAS MS 08/13/24 08/14/24 hydrocodone 10 mg-acetaminophen 1 tab PO Q6HP PRN Pain 08/14/24 08/14/24 325 mg tablet levothyroxine 150 mcg tablet 150 mcg PO DAILY 08/14/24 08/14/24 Previous Rx's ?Medication ?Instructions ?Recorded albuterol sulfate 2.5 mg/0.5 mL 2.5 mg (0.5 mL) inhala tion Q6HP 08/15/24 solution for nebulization PRN cough #30 ea albuterol sulfate 2.5 mg/3 mL 2.5 mg (3 mL) inhalation BIDRT 30 08/15/24 (0.083 %) solution for nebulization days #180 mL sulfamethoxazole 800 1 tab PO BID 12 days #24 tab s 08/15/24 mg-trimethoprim 160 mg tablet (Bactrim DS) Allergies Allergy/AdvReac Type Severity Reaction Status Date / Time iodine (IODINE) Allergy Mild Verified 01/04/24 09:33 adhesive tape Allergy Verified 01/04/24 09:33 [facility] <JUANY Carrero - Last Filed: 08/20/24 18:21> [facility] Disclaimer: The information contained in this section may have been updated after the patient was seen, as this information can be updated by other users. Medical History (Updated 08/20/24 @ 18:20 by JUANY Carrero) Bronchiectasis Bronchiectasis type 1 Recurrent bacterial pneumonia Staphylococcal pneumonia Recurrent pneumonia Diastolic CHF, acute Bilateral lower extremity edema Pneumonia COVID-19 CAD (coronary artery disease) GERD (gastroesophageal reflux disease) Hypothyroidism Hyperlipidemia Hypertension Insulin pump fitting or adjustment Fall Side effects of vaccination Type 1 diabetes mellitus with diabetic polyneuropathy Traumatic ecchymosis of ankle Cellulitis Laceration of lower leg Surgical History History of coronary artery bypass graft H/O thyroidectomy Total knee replacement status H/O bilateral hip replacements History of total right knee replacement (TKR) Family History Mother Coronary artery disease Father COVID-19 Social History Smoking Status: Never smoker alcohol intake: never substance use type: denies use current occupational status: employed Travel in the last 8 weeks?: None household members: spouse housing: house lives independently: Yes marital status: number of children: 5 education level: high school service: No usp: No current occupation: [employer] diet: diabetic marianna/sabianist: Jain Have you lived/traveled outside [place] in past 30 days?: No Contact w/someone who lives/traveled outside [place] past 30 days?: No Exposure to someone with infectious disease in past 14 days?: No Do you have a fever (greater than 100.4 F or 38 C)?: No Have you tested positive for COVID-19?: No Exposed to someone with COVID-19 in past 14 days?: No Do you have a sore throat?: No Do you have a cough?: No Do you have any weakness?: No Do you have any diarrhea?: No Are you experiencing any unusual bleeding?: No Do you have any muscle aches/pain?: No Do you have any abdominal pain?: No Are you experiencing loss of taste or smell?: No Other Medical History Have you received the Flu Vaccine for this season: No Have you received the Pneumonia Vaccine: No <JUANY Carrero - Last Filed: 08/20/24 18:21> ROS Obtained: Yes All systems reviewed & no additional complaints except as documented Physical Exam <JUANY Carrero - Last Filed: 08/20/24 18:21> General General appearance: alert and in no apparent distress Head Head exam: atraumatic and normocephalic Eye Eye exam: Present PERRL and EOMI ENT ENT exam: Present mucous membranes moist Neck Neck exam: Present normal inspection Chest Chest inspection: Present normal inspection and symmetric chest wall rise Respiratory Respiratory exam: Present other (Crackles/Rales notable on the left lung swan); Absent respiratory distress or wheezes Cardiovascular Cardiovascular exam: Present regular rate and normal rhythm Abdominal Exam Abdominal exam: Present soft; Absent tenderness Extremities Exam Extremities exam: Present normal inspection Neurological Exam Neurological exam: Present alert and oriented X3 Psychiatric Psychiatric exam: Present normal affect Skin Skin exam: Present warm and dry HEART Score <JUANY Carrero - Last Filed: 08/20/24 18:21> HEART Score HEART Score assessment performed?: No Critical Care <JUANY Carrero - Last Filed: 08/20/24 18:21> Critical Care Time Critical Care Time: No Medical Decision Making <JUANY Carrero - Last Filed: 08/20/24 18:21> Medical Records Medical records reviewed: Yes I reviewed the patient's medical records. Herman Inquiry Pt receiving controlled substance: No Herman was queried for this patient: No Vital Signs Vital Signs: 08/20/24 15:00 08/20/24 15:16 08/20/24 15:24 Temperature 98.2 F 98.2 F Temperature Source Oral Oral Pulse Rate 68 70 Pulse Rate [Right] 70 Respiratory Rate 18 18 Blood Pressure 147/82 H 158/86 H Blood Pressure [Right Arm] 157/86 H Blood Pressure Mean [Right Arm] 109 Blood Pressure Source Automatic Cuff Blood Pressure Source [Right Arm] Automatic Cuff Blood Pressure Position Supine Blood Pressure Position [Right Arm] Supine 02 Sat by Pulse Oximetry 96 96 96 Oxygen Delivery Method Room Air Room Air 08/20/24 15:25 08/20/24 15:30 08/20/24 15:31 Temperature Temperature Source Pulse Rate 70 62 65 Pulse Rate [Right] Respiratory Rate 24 18 Blood Pressure 136/67 129/68 Blood Pressure [Right Arm] Blood Pressure Mean [Right Arm] Blood Pressure Source Blood Pressure Source [Right Arm] Blood Pressure Position Blood Pressure Position [Right Arm] 02 Sat by Pulse Oximetry 98 98 Oxygen Delivery Method 08/20/24 16:01 08/20/24 17:00 08/20/24 17:30 Temperature Temperature Source Pulse Rate 62 65 66 Pulse Rate [Right] Respiratory Rate 31 H 11 L 12 Blood Pressure 121/66 121/62 126/65 Blood Pressure [Right Arm] Blood Pressure Mean [Right Arm] Blood Pressure Source Automatic Cuff Automatic Cuff Blood Pressure Source [Right Arm] Blood Pressure Position Supine Supine Blood Pressure Position [Right Arm] 02 Sat by Pulse Oximetry 95 95 95 Oxygen Delivery Method Room Air Room Air Lab Data Lab results reviewed: Yes I reviewed the patient's lab results. Labs: Lab Results 08/20/24 15:30: VBG pH 7.47 H, VBG pCO2 37.6, VBG pO2 31.8, VBG HCO3 26.6, VBG Total CO2 27.8 H, VBG O2 Saturation 63.6, VBG Base Excess 2.9 H, VBG Lactic Acid 1.9 08/20/24 15:31: WBC 4.9, RBC 3.51 L, Hgb 9.8 L, Hct 30.7 L, MCV 87.5, MCH 27.9, MCHC 31.9, RDW 16.2, Plt Count 167, MPV 8.9, Neut % (Auto) 39.1, Lymph % (Auto) 34.8, [place] % (Auto) 6.9, Eos % (Auto) 17.6 H, Baso % (Auto) 1.0, Neut # (Auto) 1.9, Lymph # (Auto) 1.7, [place] # (Auto) 0.3, Eos # (Auto) 0.9 H, Baso # (Auto) 0.1, Sodium 135 L, Potassium 4.1, Chloride 98, Carbon Dioxide 28, Anion Gap 13.1, BUN 12, Creatinine 1.40 H, Estimated Creat Clear 54, Estimated GFR 50 L, Est GFR ( Amer) 61, Glucose 95, Lactate 1.5, Calcium 9.1, Magnesium 1.6, Total Bilirubin 0.5, AST 33, ALT 19, Alkaline Phosphatase 79, Troponin I < 0.01, NT-Pro-B Natriuret Pep 182 H, Total Protein 6.9, Albumin 3.7, Globulin 3.2, Albumin/Globulin Ratio 1.2 08/20/24 15:31 08/20/24 15:31 Response Orders (Tests/Meds): ED MEDICATIONS Generic Name Dose Route Start Last Admin Trade Name Freq PRN Reason Stop Dose Admin Sodium Chloride 10 ml 08/20/24 16:32 08/20/24 16:33 Sodium Chloride 0.9% 10ml Syr (Rad Only) IV 09/19/24 16:31 10 ml NEEDED PRN Administration Maintain IV Site Discontinued Medications Generic Name Dose Route Start Last Admin Trade Name Getachew PRN Reason Stop Dose Admin Iopamidol 70 ml 08/20/24 16:32 08/20/24 16:33 Iopamidol-370 (76%);100ml Bottle IV 08/20/24 16:33 70 ml ONCE ONE Administration Sodium Chloride 50 ml 08/20/24 16:32 08/20/24 16:33 0.9 % Sodium Chloride 50 Ml Vial IV 08/20/24 16:33 50 ml ONCE ONE Administration ORDERS Category Date Time Status CT angio chest PE protocol Stat Cat Scan 08/20/24 15:37 Completed XR chest portable Stat Exams 08/20/24 15:29 Completed Complete Blood Count Auto Diff Stat Lab 08/20/24 15:31 Completed Comprehensive Metabolic Panel Stat Lab 08/20/24 15:31 Completed Lactic Acid Stat Lab 08/20/24 15:31 Completed Magnesium Stat Lab 08/20/24 15:31 Completed NT Pro Brain Natriuretic Pep. Stat Lab 08/20/24 15:31 Completed Troponin I Q3H Lab 08/20/24 18:30 Ordered Troponin I Q3H Lab 08/20/24 21:30 Ordered Troponin I Stat Lab 08/20/24 15:31 Completed VBG [Venous Blood Gas] Stat RT 08/20/24 15:30 Completed MDM Narrative Medical Decision Narrative: 68-year-old male presents emergency department with dyspnea and chest pain that is left-sided for the last 2 days, differential diagnose include but not limited to, ACS, PE, cardiac arrhythmia, electrolyte disturbance, acute CHF exacerbation, pneumonia, bronchiectasis, costochondritis, pleural effusion, pulmonary edema among others. I discussed patient case with attending physician Dr. Méndez Will obtain basic laboratory studies, lactic acid level, VBG, magnesium level proBNP, troponin, CXR, CTA chest without contrast PE protocol, as well as EKG. CBC is notable for anemia with a 9.8 hemoglobin, 30.7 hematocrit, this is in line with the patient's current chronic anemia. CMP is notable for elevated creatinine 1.4, troponin within normal limits, 0.01, proBNP is mildly elevated at 182. VBG is notable for pH 7.47, otherwise unremarkable. I reviewed the patient's chest x-ray along the corresponding radiologic report, bibasilar pneumonia minimally improved on the left. I reviewed the patient's CTA chest with and without contrast PE protocol along with corresponding radiologic report, bilateral lower lobe and lingular consolidation appears similar to previous and may represent chronic recurrent pneumonia/pneumonitis underlying lower lobe bronchiectasis noted greater on the left. Discussed the results with the patient and at the bedside, patient has remained hemodynamically stable at this time in the emergency department, currently symptom-free. 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 antibiotics, inhalers and other outpatient therapy for pneumonia. I advised him to continue these therapies that he was discharged on. Patient and family voiced understanding and agree with current treatment plan/discharge plan. <Hilaria Méndez, DO - Last Filed: 08/20/24 15:44> Vital Signs Vital Signs: 08/20/24 15:00 08/20/24 15:16 08/20/24 15:24 Temperature 98.2 F 98.2 F Temperature Source Oral Oral Pulse Rate 68 70 Pulse Rate [Right] 70 Respiratory Rate 18 18 Blood Pressure 147/82 H 158/86 H Blood Pressure [Right Arm] 157/86 H Blood Pressure Mean [Right Arm] 109 Blood Pressure Source Automatic Cuff Blood Pressure Source [Right Arm] Automatic Cuff Blood Pressure Position Supine Blood Pressure Position [Right Arm] Supine 02 Sat by Pulse Oximetry 96 96 96 Oxygen Delivery Method Room Air Room Air 08/20/24 15:25 08/20/24 15:30 08/20/24 15:31 Temperature Temperature Source Pulse Rate 70 62 65 Pulse Rate [Right] Respiratory Rate 24 18 Blood Pressure 136/67 129/68 Blood Pressure [Right Arm] Blood Pressure Mean [Right Arm] Blood Pressure Source Blood Pressure Source [Right Arm] Blood Pressure Position Blood Pressure Position [Right Arm] 02 Sat by Pulse Oximetry 98 98 Oxygen Delivery Method 08/20/24 16:01 08/20/24 17:00 08/20/24 17:30 Temperature Temperature Source Pulse Rate 62 65 66 Pulse Rate [Right] Respiratory Rate 31 H 11 L 12 Blood Pressure 121/66 121/62 126/65 Blood Pressure [Right Arm] Blood Pressure Mean [Right Arm] Blood Pressure Source Automatic Cuff Automatic Cuff Blood Pressure Source [Right Arm] Blood Pressure Position Supine Supine Blood Pressure Position [Right Arm] 02 Sat by Pulse Oximetry 95 95 95 Oxygen Delivery Method Room Air Room Air Lab Data Labs: Lab Results 08/20/24 15:30: VBG pH 7.47 H, VBG pCO2 37.6, VBG pO2 31.8, VBG HCO3 26.6, VBG Total CO2 27.8 H, VBG O2 Saturation 63.6, VBG Base Excess 2.9 H, VBG Lactic Acid 1.9 08/20/24 15:31: WBC 4.9, RBC 3.51 L, Hgb 9.8 L, Hct 30.7 L, MCV 87.5, MCH 27.9, MCHC 31.9, RDW 16.2, Plt Count 167, MPV 8.9, Neut % (Auto) 39.1, Lymph % (Auto) 34.8, [place] % (Auto) 6.9, Eos % (Auto) 17.6 H, Baso % (Auto) 1.0, Neut # (Auto) 1.9, Lymph # (Auto) 1.7, [place] # (Auto) 0.3, Eos # (Auto) 0.9 H, Baso # (Auto) 0.1, Sodium 135 L, Potassium 4.1, Chloride 98, Carbon Dioxide 28, Anion Gap 13.1, BUN 12, Creatinine 1.40 H, Estimated Creat Clear 54, Estimated GFR 50 L, Est GFR ( Amer) 61, Glucose 95, Lactate 1.5, Calcium 9.1, Magnesium 1.6, Total Bilirubin 0.5, AST 33, ALT 19, Alkaline Phosphatase 79, Troponin I < 0.01, NT-Pro-B Natriuret Pep 182 H, Total Protein 6.9, Albumin 3.7, Globulin 3.2, Albumin/Globulin Ratio 1.2 Response Orders (Tests/Meds): ED MEDICATIONS Generic Name Dose Route Start Last Admin Trade Name Freq PRN Reason Stop Dose Admin Sodium Chloride 10 ml 08/20/24 16:32 08/20/24 16:33 Sodium Chloride 0.9% 10ml Syr (Rad Only) IV 09/19/24 16:31 10 ml NEEDED PRN Administration Maintain IV Site Discontinued Medications Generic Name Dose Route Start Last Admin Trade Name Freq PRN Reason Stop Dose Admin Iopamidol 70 ml 08/20/24 16:32 08/20/24 16:33 Iopamidol-370 (76%);100ml Bottle IV 08/20/24 16:33 70 ml ONCE ONE Administration Sodium Chloride 50 ml 08/20/24 16:32 08/20/24 16:33 0.9 % Sodium Chloride 50 Ml Vial IV 08/20/24 16:33 50 ml ONCE ONE Administration ORDERS Category Date Time Status CT angio chest PE protocol Stat Cat Scan 08/20/24 15:37 Completed XR chest portable Stat Exams 08/20/24 15:29 Completed Complete Blood Count Auto Diff Stat Lab 08/20/24 15:31 Completed Comprehensive Metabolic Panel Stat Lab 08/20/24 15:31 Completed Lactic Acid Stat Lab 08/20/24 15:31 Completed Magnesium Stat Lab 08/20/24 15:31 Completed NT Pro Brain Natriuretic Pep. Stat Lab 08/20/24 15:31 Completed Troponin I Q3H Lab 08/20/24 18:30 Ordered Troponin I Q3H Lab 08/20/24 21:30 Ordered Troponin I Stat Lab 08/20/24 15:31 Completed VBG [Venous Blood Gas] Stat RT 08/20/24 15:30 Completed ECG Data Tracing #1: Attestation: I reviewed this ECG and interpreted as documented below: ECG Narrative: Normal sinus rhythm with a ventricular rate of 68 bpm. Left axis deviation. No acute ST changes concerning for STEMI. Intraventricular conduction delay ECG initial impression date: 08/20/24 ECG initial impression time: 15:03
[2024-08-20 15:48] LABS: Chloride 98 mmol/L (98-107); Potassium 4.1 mmoL/L (3.5-5.1); Sodium 135 mmol/L (136-145)
[2024-08-20 15:51] LABS: Alanine Aminotransferase 19 U/L (12-78); Alkaline Phosphatase 79 U/L (38-126); Anion Gap 13.1 mEq/L (5-15); Aspartate Amino Transferase 33 U/L (17-59); Bilirubin,Total 0.5 mg/dl (0.2-1.3); Blood Urea Nitrogen 12 mg/dl (9-20); Carbon Dioxide 28 mmol/L (22.0-30.0); Creatinine Clearance Estimated 54 mL/min (50-200); Creatinine,Serum 1.40 mg/dl (0.66-1.25); Estimated Glomerular Filt Rate 50 ml/min (>60); GFR (African American) 61 ML/MIN (>60); Total Protein,Serum 6.9 g/dl (6.3-8.2)
[2024-08-20 15:52] LABS: Calcium 9.1 mg/dl (8.4-10.2); Glucose 95 mg/dl (74-100)
[2024-08-20 16:02] LABS: Magnesium 1.6 mg/dl (1.6-2.3)
[2024-08-20 16:07] LABS: Troponin I < 0.01 ng/ml (0.00-0.034)
[2024-08-20 16:12] LABS: NT Pro Brain Natriuretic Pep. 182 pg/mL (0-125)
[2024-08-20 16:28] LABS: Albumin Level 3.7 g/dl (3.5-5.0); Albumin/Globulin Ratio 1.2 (1.1-1.8); Globulin 3.2 g/dL (1.3-3.2)
[2024-08-20] MEDS: IOPAMIDOL-370 (76%);100ML BOTTLE 70 ML IV (16:33)
[2024-08-20] MEDS: SODIUM CHLORIDE 0.9% 10ML SYR (RAD ONLY) 10 ML IV (16:33)
[2024-08-20] MEDS: 0.9 % SODIUM CHLORIDE 50 ML VIAL IV (16:33)
== END 2024-08-20 18:56 | disposition home or self-care (01) ==
PROVIDERS: Physician Assistant; Emergency Provider Emergency Medicine
DX: R07.9 Chest pain, unspecified (principal); J18.9 Pneumonia, unspecified organism; I10 Essential (primary) hypertension; E78.5 Hyperlipidemia, unspecified; Z86.79 Personal history of other diseases of the circulatory system
CPT/HCPCS: 71045; 71275; 80053; 82803; 83605; 83735; 83880; 84484; 85025; 93005; 99285; Q9967

== ENCOUNTER → 2024-08-28 10:00 | Outpatient (RCR) | payer MEDICARE, OTHER, SELFPAY | LOC: ST 08-07 15:52 | PROVIDERS: PCP Family Medicine; Visit Provider Family Medicine | DX: R13.19 Other dysphagia (principal) | CPT/HCPCS: 92507; 92526 ==